=== PATIENT | male | born 1970 | race Caucasian/White ===

== ENCOUNTER 2017-02-01 21:15 | Emergency (ER) | payer BC ==
[~2017-02-01] VITALS: Ht 165.1 cm; Wt 60.7 kg
[~2017-02-01 21:15] MED LIST: OMEP40CA PO
[2017-02-01 21:26] VITALS: TEMP 36.7; Ht 165.1 cm; Wt 60.7 kg
[2017-02-01] MEDS ORDERED: OMEP20CA9 PO (21:51)
[2017-02-01] MEDS ORDERED: ONDANSETRON 8 MG/54 ML D5W IV STA (21:53)
[2017-02-01] MEDS ORDERED: SODIUM CHLORIDE 0.9% 1000ML 1,000 ML IV STA (21:53)
[2017-02-01 21:59] LABS: BASO % 0.5 %; BASO ABS # 0.05 K/uL (0-0.2); COMPLETE YES; EOS % 2.1 %; HEMATOCRIT 45.4 % (42-52); IG% 0.1 %; LYMPH % 28.1 %; LYMPH ABS # 2.63 K/uL (1.2-3.4); MEAN CELL VOLUME 92.3 fL (80-100); MEAN CORPUSCULAR HEMOGLOBIN 33.9 pg (25-34); MEAN CORPUSCULAR HGB CONC 36.8 g/dl (32-36); MEAN PLATELET VOLUME 8.9 fL (7.4-10.4); NEUT % 62.2 %; PLATELET COUNT 253 K/uL (130-400); RED BLOOD COUNT 4.92 M/uL (4.7-6.1); WHITE BLOOD COUNT 9.35 K/uL (4.8-10.8)
[2017-02-01] MEDS ORDERED: HYDROmorphone INJ 1 MG/ML SYR IV PRN (22:00)
[2017-02-01] MEDS ORDERED: OPTIRAY 320 IV PRN (22:00)
[2017-02-01 22:19] LABS: CALCIUM 9.4 mg/dl (8.5-10.1)
[2017-02-01 22:21] LABS: ALT/SGPT 30 U/L (12-78); BLOOD UREA NITROGEN 14 mg/dl (7-18); BUN/CREATININE RATIO 11.6 (10-20); CARBON DIOXIDE 24 mmol/L (21-32); CHLORIDE 105 mmol/L (98-107); GLUCOSE 94 mg/dl (70-99); POTASSIUM 3.9 mmol/L (3.5-5.1); SODIUM 140 mmol/L (136-145)
[2017-02-01 22:24] LABS: ALKALINE PHOSPHATASE 66 U/L (45-117); AST/SGOT 16 U/L (15-37)
[2017-02-02 00:43] LABS: URINE APPEARANCE CLEAR (CLEAR); URINE BILIRUBIN NEG (NEG); URINE COLOR YELLOW; URINE NITRITE NEG (NEG); UROBILINOGEN NEG (NEG); ZZUR CULT IF INDIC CLEAN CATCH NO
[2017-02-02 00:49] LABS: MANUAL MICROSCOPIC REQUIRED? NO; REVIEW REQ? NO
[2017-02-02] MEDS ORDERED: OXYCODONE IR HOME PACK PO ONE (01:30)
[2017-02-02 01:37] VITALS: BP 137/100; PULSE 69; O2SAT 97
--- NOTE | 2017-02-02 02:16 | EMERGENCY ROOM VISIT NOTE ---
History Report prepared by Remberto: Milton Parra Under the Supervision of: Dr. Danish Grullon M.D. First contact with patient: 21:39 Chief Complaint: ABDOMINAL PAIN Stated Complaint: PAIN LEFT LOWER STOMACH INTO BACK History of Present Illness The patient is a 46 year old male who presents to the Emergency Room with complaints of intermittent left sided abdominal pain beginning yesterday. His pain wraps around into his back. He states that he has been having similar abdominal pain for about four years. He states that his current pain feels the same as his previous abdominal pain. The patient states that he typically takes ibuprofen for his pain which resolves it, but nothing has improved his current pain. He states that his current abdominal pain is the first time in over two months that he has had his pain. He states that he has not been hospitalized for his abdominal pain in over a year. The patient is unsure as to whether is pain is from his gallbladder or pancreas. He rates his pain as a 10/10 in severity. His most recent colonoscopy was a few weeks ago. The patient has a history of GERD for which he takes Prilosec. He states that Prilosec typically brings on his abdominal pain. He states that he has been taking Prilosec for the past few weeks. The patient also complains of nausea, and lightheadedness. He denies any increased alcohol consumption. He states that he only drinks alcohol very occasionally. Pt denies LOC, headache, fevers, chills, diaphoresis , visual changes, neck pain, chest pain, breathing difficulties, vomiting, back pain, melena, hematochezia, urinary symptoms, numbness, weakness, lymphadenopathy, rash, or other complaints. He denies any recent trauma or testicular pain. Source of History: patient Onset: Yesterday Position: abdomen (left sided) Timing: intermittent Modifying Factors (Worsening): other (Prilosec) Modifying Factors (Relieving): other (none) Associated Symptoms: + nausea, No hematochezia, No melena, No vomiting Note: The patient complains of lightheadedness. Review of Systems See HPI for pertinent positives and negatives. A total of ten systems were reviewed and were otherwise negative. Past Medical & Surgical Medical Problems: (1) Hyperlipemia (2) Pancreatitis Family History FHx: gallbladder disease Hypertension Social History Smoking Status: Current Every Day Smoker Alcohol Use: occasionally Drug Use: none Marital Status: single Housing Status: lives with family Occupation Status: employed Current/Historical Medications Scheduled Omeprazole (Prilosec), 20 MG PO QAM Allergies Coded Allergies: No Known Allergies (Unverified , 10/18/15) Physical Exam Vital Signs Date Time Temp Pulse Resp B/P Pulse Ox O2 Delivery O2 Flow Rate FiO2 02/02/17 01:37 69 15 137/100 97 02/02/17 00:20 80 13 135/96 96 Room Air 02/01/17 23:20 61 17 131/77 96 Room Air 02/01/17 22:20 89 02/01/17 21:26 36.7 96 18 146/105 99 Room Air Physical Exam GENERAL: Awake, alert, well-appearing, in no distress HENT: Normocephalic, atraumatic. Oropharynx unremarkable. EYES: Normal conjunctiva. Sclera non-icteric. NECK: Supple. No nuchal rigidity. FROM. No JVD. RESPIRATORY: Clear to auscultation. CARDIAC: Regular rate, normal rhythm. Extremities warm and well perfused. Pulses equal. ABDOMEN: Soft, non-distended. Epigastric and LUQ tenderness to palpation. No rebound or guarding. No masses. RECTAL: Deferred. MUSCULOSKELETAL: Chest examination reveals no tenderness. The back is symmetrical on inspection without obvious abnormality. There is no CVA tenderness to palpation. No joint edema. LOWER EXTREMITIES: Calves are equal size bilaterally and non-tender. No edema. No discoloration. NEURO: Normal sensorium. No sensory or motor deficits noted. SKIN: No rash or jaundice noted. Medical Decision & Procedures ER Provider Diagnostic Interpretation: CT results per statrad and my review. CT ABDOMEN & PELVIS: No evidence of acute abnormality in the left lower quadrant to account for symptoms. No bowel obstruction, bowel wall thickening of free air. Question mild haziness surrounding the pancreatic head. Correlate with pancreatic enzyme levels to exclude mild acute pancreatitis. Remainder of pancreas appears unremarkable. No evidence of pseudocyst. Small hiatal hernia with contrast in the visualized distal esophagus, possibly related to stasis or gastroesophageal reflux. Correlate clinically. Stable small hepatic and right renal cysts. Laboratory Results 02/01/17 21:48 Red Blood Count 4.92, Mean Corpuscular Volume 92.3, Mean Corpuscular Hemoglobin 33.9, Mean Corpuscular Hemoglobin Concent 36.8, Mean Platelet Volume 8.9, Neutrophils (%) (Auto) 62.2, Lymphocytes (%) (Auto) 28.1, Monocytes (%) (Auto) 7.0, Eosinophils (%) (Auto) 2.1, Basophils (%) (Auto) 0.5, Neutrophils # (Auto) 5.81, Lymphocytes # (Auto) 2.63, Monocytes # (Auto) 0.65, Eosinophils # (Auto) 0.20, Basophils # (Auto) 0.05 02/01/17 21:48 Test 02/01/17 21:48 02/02/17 00:05 White Blood Count 9.35 K/uL (4.8-10.8) Red Blood Count 4.92 M/uL (4.7-6.1) Hemoglobin 16.7 g/dL (14.0-18.0) Hematocrit 45.4 % (42-52) Mean Corpuscular Volume 92.3 fL (80-100) Mean Corpuscular Hemoglobin 33.9 pg (25-34) Mean Corpuscular Hemoglobin Concent 36.8 g/dl (32-36) Platelet Count 253 K/uL (130-400) Mean Platelet Volume 8.9 fL (7.4-10.4) Neutrophils (%) (Auto) 62.2 % Lymphocytes (%) (Auto) 28.1 % Monocytes (%) (Auto) 7.0 % Eosinophils (%) (Auto) 2.1 % Basophils (%) (Auto) 0.5 % Neutrophils # (Auto) 5.81 K/uL (1.4-6.5) Lymphocytes # (Auto) 2.63 K/uL (1.2-3.4) Monocytes # (Auto) 0.65 K/uL (0.11-0.59) Eosinophils # (Auto) 0.20 K/uL (0-0.5) Basophils # (Auto) 0.05 K/uL (0-0.2) RDW Standard Deviation 44.0 fL (36.4-46.3) RDW Coefficient of Variation 13.0 % (11.5-14.5) Immature Granulocyte % (Auto) 0.1 % Immature Granulocyte # (Auto) 0.01 K/uL (0.00-0.02) Anion Gap 11.0 mmol/L (3-11) Est Creatinine Clear Calc Drug Dose 65.3 ml/min Estimated GFR () 83.0 Estimated GFR (Non- 71.6 BUN/Creatinine Ratio 11.6 (10-20) Calcium Level 9.4 mg/dl (8.5-10.1) Total Bilirubin 0.6 mg/dl (0.2-1) Direct Bilirubin < 0.1 mg/dl (0-0.2) Aspartate Amino Transf (AST/SGOT) 16 U/L (15-37) Alanine Aminotransferase (ALT/SGPT) 30 U/L (12-78) Alkaline Phosphatase 66 U/L (45-117) Total Protein 7.4 gm/dl (6.4-8.2) Albumin 4.4 gm/dl (3.4-5.0) Lipase 376 U/L (73-393) Urine Color YELLOW Urine Appearance CLEAR (CLEAR) Urine pH 6.0 (4.5-7.5) Urine Specific [place] 1.020 (1.000-1.030) Urine Protein NEG (NEG) Urine Glucose (UA) NEG (NEG) Urine Ketones TRACE (NEG) Urine Occult Blood NEG (NEG) Urine Nitrite NEG (NEG) Urine Bilirubin NEG (NEG) Urine Urobilinogen NEG (NEG) Urine Leukocyte Esterase NEG (NEG) Laboratory results reviewed by me Medications Administered Medications (Trade) Dose Ordered Sig/Anthony Route Start Time Stop Time Status Last Admin Dose Admin Sodium Chloride (Nss 1000ml) 1,000 ml @ 999 mls/hr Q1H1M STAT IV 02/01/17 21:53 02/01/17 22:53 DC 02/01/17 22:14 999 MLS/HR Ondansetron HCl (Zofran 8mg Iv) 8 mg NOW STAT IV 02/01/17 21:53 02/01/17 21:55 DC 02/01/17 22:14 8 MG Hydromorphone HCl (Dilaudid Inj) 1 mg Q15M PRN IV 02/01/17 22:00 02/02/17 01:57 DC 02/01/17 22:14 1 MG Oxycodone HCl (Roxicodone Immediate Rel 5MG Home Pack) 1 homepack UD ONCE PO 02/02/17 01:30 02/02/17 01:31 DC 02/02/17 01:34 1 HOMEPACK ED Course 2147: The patient was evaluated in room B4B. A complete history and physical exam was performed. 2152: Ordered Zofran 8 mg IV, Sodium Chloride 1000 ml @ 999 mls/hr IV. 2199: Ordered Dilaudid Inj 1 mg IV. 0032: I reassessed the patient. He is resting comfortably. 0130: I reevaluated the patient. Discussed results and discharge instructions: he verbalized understanding and agreement. The patient is ready for discharge. Medical Decision Triage Nursing notes reviewed. The patient's presentation and history were concerning for abdominal pain. Etiologies such as chronic pancreatitis, appendicitis, diverticulitis, obstruction, inflammatory bowel disease, renal colic, PUD, biliary pathology, acute pancreatitis, mesenteric ischemia, aortic pathology, infections, genitourinary, UTI, perforated viscus, as well as others were entertained. Pain was evaluated. He was uncomfortable. He was given IV normal saline, Zofran, and Dilaudid. Blood work was performed. CBC, chemistry panel, LFTs, and lipase were unremarkable. CT imaging was ordered due to his history of pancreatitis. The patient's CT scan was performed. There was questionable haziness around the head of the pancreas but otherwise it was unremarkable. The patient was reassessed and felt significantly better. His pain was markedly improved and nearly resolved. He states he feels basically back to normal. I discussed conservative management as she has been will findings on imaging and really left-sided abdominal pain by complaints. He felt very comfortable with conservative management. He'll have a clear liquid diet and then slowly advance. If he has any problems he will come back to the Emergency Room for reevaluation. I did discuss that there may be a possible flareup and he may need to come back.I gave my usual and customary discussion regarding this issue. He will need close outpatient follow-up. I did give him a home pack of oxycodone. By the evaluation outlined above other emergent etiologies such as those listed in the differential, as well as others, were deemed relatively unlikely. The patient and significant other were informed about the findings as listed above. All questions were answered and they were pleased with the treatment. Return instructions were outlined and the patient was discharged in stable condition. The patient was referred to his PCP for follow-up for a recheck of the current condition. The chart was completed utilizing Dragon Speech voice recognition software. Grammatical errors, random word insertions, pronoun errors, and incomplete sentences are an occasional consequence of this system due to software limitations, ambient noise, and hardware issues. Any formal questions or concerns about the content, text, or information contained within the body of this dictation should be directly addressed to the physician for clarification. Impression Primary Impression: Left sided abdominal pain Scribe Attestation The scribe's documentation has been prepared under my direction and personally reviewed by me in its entirety. I confirm that the note above accurately reflects all work, treatment, procedures, and medical decision making performed by me. Departure Information Dispostion Home / Self-Care Referrals Eren Herron M.D. (MEDICAL) (PCP) Patient Instructions My [facility] [address] Additional Instructions ABDOMINAL PAIN INSTRUCTIONS: DO NOT drive, drink alcohol, operate machinery, or perform dangerous activities today. You were given medications in the ER that can affect your ability to safely function or operate a vehicle. Oxycodone (OxyIR) 5mg: Take 1-2 pills every four hours for breakthrough pain. Avoid alcohol, operating machinery or dangerous equipment, working on ladders or roofs, DRIVING, or situations where being under the influence may be dangerous. It is recommended to use an [id number] stool softener such as Colace, 100mg twice daily while taking this medication to avoid constipation. Ibuprofen(Motrin, Advil) may be used for fever or pain. Use 600mg every six hours as needed. Take with food. Avoid using more than 2400mg in a 24 hour period. Do not use 2400mg per day for more than three consecutive days without physician direction. Prolonged inappropriate use can lead to stomach upset or ulcers. (AND/OR) Acetaminophen(Tylenol) may be used for fever or pain. Use 1000mg every six hours as needed. Avoid using more than 4000mg in a 24 hour period. Rest and drink plenty of fluids as tolerated. Slow sips of water or sports drinks are recommended instead of large amounts all at once. Continue current medications. Once your stomach is settled start with a clear liquid diet (jello, soup broth, etc.) and then advance as tolerated. You should avoid full, heavy meals for about 24 hrs from the time your symptoms resolved. Return to the ER immediately for worsening or persistent abdominal pain, vomiting, fevers, chest pains, difficulty breathing, black or bloody stools, worsening of your condition, or as needed. Follow up with your primary physician in one to 2 days for a recheck of your current condition.
--- NOTE | 2017-02-02 07:33 | DIAGNOSTIC IMAGING REPORT ---
ABDOMEN AND PELVIS CT WITH IV AND ORAL CONTRAST CT DOSE: 299.05 mGy.cm HISTORY: Left-sided abdominal pain. TECHNIQUE: Multiaxial CT images of the abdomen and pelvis were performed following the use of intravenous and oral contrast. COMPARISON STUDY: Abdomen and pelvis CT 09/09/2015. FINDINGS: Groundglass densities within the lower lobes posteriorly favor mild dependent change. Small hiatus hernia. Contrast in the distal stomach may represent esophageal dysmotility. Small diverticulum at the second portion of the duodenum. A few subcentimeter hypodense lesions within the liver and right kidney are too small to characterize but remain stable. Therefore, these favor cysts. The spleen, left kidney, and adrenal glands are unremarkable. The gallbladder remains mildly distended. Question of minimal fat stranding at the pancreatic head. No retroperitoneal lymphadenopathy. Bladder wall thickening which may be due to underdistention. Colonic diverticulosis. No bowel wall thickening or obstruction. Normal appendix. IMPRESSION: 1. Question of minimal fat stranding at the pancreatic head. Correlation with laboratory values to exclude a developing acute pancreatitis. 2. No bowel wall thickening or obstruction. 3. Colonic diverticulosis. 4. Small hiatus hernia. Electronically signed by: David Noel M.D. 02/02/2017 7:30 AM Dictated Date/Time: 02/02/2017 7:26 AM
== END 2017-02-02 01:43 | disposition home or self-care (01) ==
LOC: C.EDB 21:16
DX: R10.32 Left lower quadrant pain (principal); R11.0 Nausea; F17.210 Nicotine dependence, cigarettes, uncomplicated

== ENCOUNTER 2020-03-11 11:01 | Observation (INO) ==
[2020-03-11] MEDS ORDERED: ONDANSETRON INJ 2 MG/ML 2 ML VIAL IV STA (11:55)
[2020-03-11] MEDS ORDERED: KETOROLAC TROMETHAMINE 15 MG/ML VIAL IV ONE (11:55)
[2020-03-11] MEDS ORDERED: SODIUM CHLORIDE 0.9% 1000ML 2,000 ML IV ONE (11:55)
[2020-03-11 11:58] LABS: Basophils # (auto) 0.04 K/uL (0-0.2); Basophils % (auto) 0.5 %; Eosinophils # (auto) 0.07 K/uL (0-0.5); Eosinophils % (auto) 0.8 %; Hematocrit (blood only) 43.2 % (42-52); Hemoglobin 14.9 g/dL (14.0-18.0); Immature Granulocytes # (auto) 0.01 K/uL (0.00-0.02); Immature Granulocytes % (auto) 0.1 %; Lymphocytes # (auto) 1.84 K/uL (1.2-3.4); Lymphocytes % (auto) 22.3 %; Mean Corpuscular Hemoglobin 32.6 pg (25-34); Mean Corpuscular Hgb Conc 34.5 g/dL (32-36); Mean Corpuscular Volume 94.5 fL (80-100); Mean Platelet Volume 8.9 fL (7.4-10.4); Monocytes # (auto) 0.25 K/uL (0.11-0.59); Neutrophils # (auto) 6.03 K/uL (1.4-6.5); Neutrophils % (auto) 73.3 %; Platelet Count 304 K/uL (130-400); Red Blood Count 4.57 M/uL (4.7-6.1); White Blood Count 8.24 K/uL (4.8-10.8)
[2020-03-11 12:05] LABS: Albumin Level 3.9 gm/dl (3.4-5.0); Calcium 9.3 mg/dl (8.5-10.1); Creatinine Clr Calc Pharmacy 65.1 ml/min; Est GFR (African American) 82.9; Est GFR (Non-African American) 71.5; Potassium 3.9 mmol/L (3.5-5.1)
[2020-03-11 12:08] LABS: Bilirubin,Total 0.4 mg/dl (0.2-1); Total Protein 7.9 gm/dl (6.4-8.2)
--- NOTE | 2020-03-11 12:26 | Emergency Department Note ---
Impression & Plan Splenic infarct, Abdominal pain ED Provider Note NAME: SAMUEL RIDER AGE: 49 SEX: M : 1970 ARRIVES VIA: Walk-In INFORMANT: Patient ED PROVIDER(S): Florentino Smith DO CHIEF COMPLAINT: Abdominal pain HPI: Patient is a 49-year-old male who presents the ER for left lower quadrant abdominal pain. This pain is described as sharp and stabbing and 8 out of 10. Does radiate to the back. He notes some improvement with ice. He vomited twice. Last bowel movement was yesterday. No previous abdominal surgeries. No other exacerbating or remitting factors. He notes he has had this before in the past and they were unsure of exactly what caused it. He denies any dysuria urgency or frequency. No diarrhea. He notes no testicular pain or penile pain. ROS: See above HPI for pertinent positives & negatives. A total of 10 systems reviewed and were otherwise negative. PAST MEDICAL HISTORY:See Below PAST SURGICAL HISTORY:See Below FAMILY HISTORY:See Below SOCIAL HISTORY:See Below HOME MEDICATIONS:See Below ALLERGIES:See Below VITALS:See Below PHYSICAL EXAMINATION: GENERAL: Sitting up in bed, alert, well appearing, well nourished, no distress, non-toxic EYE EXAM: normal conjunctiva. OROPHARYNX: no exudate, no erythema, lips, buccal mucosa, and tongue normal and mucous membranes are moist NECK: supple, no nuchal rigidity, no adenopathy, non-tender LUNGS: Clear to auscultation. Normal chest wall mechanics HEART: no murmurs, S1 normal and S2 normal ABDOMEN: abdomen soft, tender palpation left lower quadrant, normo-active bowel sounds, no masses, no rebound or guarding. BACK: Back is symmetrical on inspection and there is no deformity, no midline tenderness, no CVA tenderness. SKIN: no rashes and no bruising UPPER EXTREMITIES: upper extremities are grossly normal. LOWER EXTREMITIES: No pitting edema. NEURO EXAM: Normal sensorium, cranial nerves II-XII grossly intact, normal speech, no gross weakness of arms, no gross weakness of legs. MEDICAL DECISION MAKING: Patient is a 49-year-old male that presents the ER for Abdominal pain. Patient notes that radiates through to his back. No other exacerbating or remitting factors. IV was established blood work was obtained shows no significant leukocytosis or anemia. BMP with LFTs bilirubin and lipase was unremarkable. UA was negative. IV was established blood work was obtained. CT of the abdomen pelvis shows left splenic infarct. Patient was given IV fluids. He was updated bedside. Discussed with the hospitalist patient was admitted as I do favor his symptoms are consistent with left splenic infarct and we have no clear reasoning for this at this time. Discussed with the hospitalist patient was agreeable to coming as well. Triage Nursing notes reviewed. Prior medical records reviewed Vital Signs: reviewed and remarkable for no significant abnormalities Differential diagnosis: Differential diagnoses includes but is not limited to gastritis, peptic ulcer disease, GERD, gallbladder disease, pancreatitis, small bowel obstruction, acute coronary syndrome, pericarditis, ischemic bowel, irritable bowel disease, irritable bowel syndrome, appendicitis, diverticulitis, malignancy, hernia, urinary tract infection, torsion, perforation, trauma, infectious. ER treatment provided: See below Diagnostics interpreted by me: ECG: none Cardiac Monitoring: An order was placed for continuous cardiac monitoring. The monitor shows a rate of 86 with sinus rhythm. Laboratory studies: As stated above and show below. Imaging studies: CT abdomen pelvis shows splenic infarct Consultation(s): Discussed with hospitalist for admission. ED COURSE: Procedures: none Critical Care: None Past Med/Surg History Medical History (Updated 03/11/20 @ 16:07 by León Crawford MD, FACS) CAD (coronary artery disease) Depression RADHA (generalized anxiety disorder) GERD (gastroesophageal reflux disease) (Acute) HLD (hyperlipidemia) Pancreatitis (Chronic) Surgical History History of heart artery stent Family History Other Diabetes Stroke Social History Preferred Language: Nepali Communication Ability: Effective Interactive Marketing Strategist Required: No Beliefs That Will Affect Care: None marital status: Single Current Living Situation: Alone current occupational status: employed Other Information That Helps Us Care for You: No Feels Safe at Home: Yes Safety Concerns: Feels Safe At This Time Smoking Status: Current every day smoker Tobacco Type: cigarettes ; Years Smoked: 31 ; Cigarettes Per Day: 20 ; Hx Alcohol Use: No Hx Substance Use: No Allergies Allergies Allergy/AdvReac Type Severity Reaction Status Date / Time No Known Allergies Allergy Verified 03/11/20 12:04 Home Meds Home Medications Medication Instructions Recorded Confirmed aspirin 81 mg PO QAM 10/06/18 03/11/20 atorvastatin [Lipitor] 80 mg PO QAM 10/06/18 03/11/20 omeprazole 20 mg PO QAM 10/06/18 03/11/20 sertraline [Zoloft] 50 mg PO QAM 10/06/18 03/11/20 nitroglycerin [Nitrostat] 0.4 mg SUBLINGUAL UD PRN 10/07/18 03/11/20 Results & Data (ED) Vital Signs Vital Signs - 24 hr 03/11/20 11:08 03/11/20 11:31 03/11/20 11:34 Temperature 36.6 C Temperature Source Oral Pulse Rate 90 69 69 Pulse Rate [Left Finger] Pulse Rate from SpO2 Sensor 68 69 Respiratory Rate 16 25 H 23 Respiratory Effort / Characteristics Non-Labored Spontaneous Respiratory Depth Normal Respiratory Pattern Regular Blood Pressure 127/86 127/73 Blood Pressure [Left Arm] Blood Pressure Mean 99 86 Blood Pressure Mean [Left Arm] Blood Pressure Position Sitting Pulse Oximetry 97 96 96 Oxygen Delivery Method Room Air Sepsis Recent Fever Within 48 Hours No Sepsis New/Unexplained Change in Mental Status No Sepsis Action Taken by Nursing No Action Required 03/11/20 12:00 03/11/20 12:30 03/11/20 12:51 Temperature Temperature Source Pulse Rate 65 60 Pulse Rate [Left Finger] 79 Pulse Rate from SpO2 Sensor 64 58 L Respiratory Rate 23 20 20 Respiratory Effort / Characteristics Respiratory Depth Respiratory Pattern Blood Pressure 108/75 112/70 Blood Pressure [Left Arm] 112/70 Blood Pressure Mean 88 80 Blood Pressure Mean [Left Arm] 84 Blood Pressure Position Pulse Oximetry 96 97 97 Oxygen Delivery Method Room Air Sepsis Recent Fever Within 48 Hours Sepsis New/Unexplained Change in Mental Status Sepsis Action Taken by Nursing 03/11/20 13:29 03/11/20 13:30 03/11/20 13:31 Temperature Temperature Source Pulse Rate 73 74 74 Pulse Rate [Left Finger] Pulse Rate from SpO2 Sensor 73 74 74 Respiratory Rate 24 22 21 Respiratory Effort / Characteristics Respiratory Depth Respiratory Pattern Blood Pressure 114/69 Blood Pressure [Left Arm] Blood Pressure Mean 83 Blood Pressure Mean [Left Arm] Blood Pressure Position Pulse Oximetry 96 97 96 Oxygen Delivery Method Sepsis Recent Fever Within 48 Hours Sepsis New/Unexplained Change in Mental Status Sepsis Action Taken by Nursing 03/11/20 14:13 03/11/20 14:15 03/11/20 14:30 Temperature Temperature Source Pulse Rate 72 65 74 Pulse Rate [Left Finger] Pulse Rate from SpO2 Sensor 71 66 75 Respiratory Rate 21 19 22 Respiratory Effort / Characteristics Respiratory Depth Respiratory Pattern Blood Pressure 112/71 120/70 Blood Pressure [Left Arm] Blood Pressure Mean 82 81 Blood Pressure Mean [Left Arm] Blood Pressure Position Pulse Oximetry 97 97 97 Oxygen Delivery Method Sepsis Recent Fever Within 48 Hours Sepsis New/Unexplained Change in Mental Status Sepsis Action Taken by Nursing 03/11/20 14:49 03/11/20 15:01 03/11/20 15:03 Temperature Temperature Source Pulse Rate 82 86 Pulse Rate [Left Finger] 73 Pulse Rate from SpO2 Sensor 83 85 Respiratory Rate 22 21 24 Respiratory Effort / Characteristics Respiratory Depth Respiratory Pattern Blood Pressure 101/56 L Blood Pressure [Left Arm] 120/70 Blood Pressure Mean 72 Blood Pressure Mean [Left Arm] 86 Blood Pressure Position Pulse Oximetry 96 96 96 Oxygen Delivery Method Room Air Sepsis Recent Fever Within 48 Hours Sepsis New/Unexplained Change in Mental Status Sepsis Action Taken by Nursing Laboratory Data Result diagrams: 03/11/20 11:28 03/11/20 11:28 Lab Results 03/11/20 03/11/20 03/11/20 Range/Units 11:28 11:28 13:15 WBC 8.24 (4.8-10.8) K/uL RBC 4.57 L (4.7-6.1) M/uL Hgb 14.9 (14.0-18.0) g/dL Hct 43.2 (42-52) % MCV 94.5 (80-100) fL MCH 32.6 (25-34) pg MCHC 34.5 (32-36) g/dL RDW Std Deviation 45.0 (36.4-46.3) fL RDW Coeff of [place] 13.0 (11.5-14.5) % Plt Count 304 (130-400) K/uL MPV 8.9 (7.4-10.4) fL Immature Gran % (Auto) 0.1 % Neut % (Auto) 73.3 % Lymph % (Auto) 22.3 % [place] % (Auto) 3.0 % Eos % (Auto) 0.8 % Baso % (Auto) 0.5 % Immature Gran # (Auto) 0.01 (0.00-0.02) K/uL Neut # (Auto) 6.03 (1.4-6.5) K/uL Lymph # (Auto) 1.84 (1.2-3.4) K/uL [place] # (Auto) 0.25 (0.11-0.59) K/uL Eos # (Auto) 0.07 (0-0.5) K/uL Baso # (Auto) 0.04 (0-0.2) K/uL Sodium 135 L (136-145) mmol/L Potassium 3.9 (3.5-5.1) mmol/L Chloride 105 (98-107) mmol/L Carbon Dioxide 24 (21-32) mmol/L Anion Gap 6.0 (3-11) BUN 17 (7-18) mg/dl Creatinine 1.18 (0.6-1.4) mg/dl Est Cr Clr Drug Dosing 65.1 ml/min Est GFR ( Amer) 82.9 Est GFR (Non-Af Amer) 71.5 BUN/Creatinine Ratio 14.0 (10-20) Glucose 118 H (70-99) mg/dl Lactate (0.4-2.0) mmol/L Calcium 9.3 (8.5-10.1) mg/dl Total Bilirubin 0.4 (0.2-1) mg/dl AST 8 L (15-37) U/L ALT 18 (12-78) U/L Alkaline Phosphatase 77 (45-117) U/L Total Protein 7.9 (6.4-8.2) gm/dl Albumin 3.9 (3.4-5.0) gm/dl Globulin 4.0 (2.5-4.0) gm/dl Albumin/Globulin Ratio 1.0 (0.9-2) Lipase 115 (73-393) U/L Urine Color Yellow Urine Appearance Clear (Clear) Urine pH 5.5 (4.5-7.5) Ur Specific [place] 1.044 H (1.000-1.030) Urine Protein Negative (Negative) Urine Glucose (UA) Negative (Negative) Urine Ketones Negative (Negative) Urine Blood Negative (Negative) Urine Nitrite Negative (Negative) Urine Bilirubin Negative (Negative) Urine Urobilinogen Negative (Negative) Ur Leukocyte Esterase Negative (Negative) 03/11/20 Range/Units 14:19 WBC (4.8-10.8) K/uL RBC (4.7-6.1) M/uL Hgb (14.0-18.0) g/dL Hct (42-52) % MCV (80-100) fL MCH (25-34) pg MCHC (32-36) g/dL RDW Std Deviation (36.4-46.3) fL RDW Coeff of [place] (11.5-14.5) % Plt Count (130-400) K/uL MPV (7.4-10.4) fL Immature Gran % (Auto) % Neut % (Auto) % Lymph % (Auto) % [place] % (Auto) % Eos % (Auto) % Baso % (Auto) % Immature Gran # (Auto) (0.00-0.02) K/uL Neut # (Auto) (1.4-6.5) K/uL Lymph # (Auto) (1.2-3.4) K/uL [place] # (Auto) (0.11-0.59) K/uL Eos # (Auto) (0-0.5) K/uL Baso # (Auto) (0-0.2) K/uL Sodium (136-145) mmol/L Potassium (3.5-5.1) mmol/L Chloride (98-107) mmol/L Carbon Dioxide (21-32) mmol/L Anion Gap (3-11) BUN (7-18) mg/dl Creatinine (0.6-1.4) mg/dl Est Cr Clr Drug Dosing ml/min Est GFR ( Amer) Est GFR (Non-Af Amer) BUN/Creatinine Ratio (10-20) Glucose (70-99) mg/dl Lactate 0.5 (0.4-2.0) mmol/L Calcium (8.5-10.1) mg/dl Total Bilirubin (0.2-1) mg/dl AST (15-37) U/L ALT (12-78) U/L Alkaline Phosphatase (45-117) U/L Total Protein (6.4-8.2) gm/dl Albumin (3.4-5.0) gm/dl Globulin (2.5-4.0) gm/dl Albumin/Globulin Ratio (0.9-2) Lipase (73-393) U/L Urine Color Urine Appearance (Clear) Urine pH (4.5-7.5) Ur Specific [place] (1.000-1.030) Urine Protein (Negative) Urine Glucose (UA) (Negative) Urine Ketones (Negative) Urine Blood (Negative) Urine Nitrite (Negative) Urine Bilirubin (Negative) Urine Urobilinogen (Negative) Ur Leukocyte Esterase (Negative) Administered Medications Ioversol (Optiray 320 100ml) 94 ml IV ONCE PRN PRN Reason: Interaction Checking Stop: 03/15/20 13:03 Last Admin: 03/11/20 13:04 Dose: 94 ml Documented by: [id number] Discontinued Medications Sodium Chloride (Nss 1000ml) 2,000 mls @ 999 mls/hr IV .Q2H1M ONE Stop: 03/11/20 13:55 Last Infusion: 03/11/20 13:48 Dose: 0 mls/hr Documented by: [id number] Admin: 03/11/20 12:13 Dose: 999 mls/hr Documented by: [id number] Ketorolac Tromethamine (Toradol) 15 mg IV NOW ONE Stop: 03/11/20 11:56 Last Admin: 03/11/20 12:13 Dose: 15 mg Documented by: [id number] Ondansetron HCl (Zofran) 4 mg IV NOW STA Stop: 03/11/20 11:56 Last Admin: 03/11/20 12:13 Dose: 4 mg Documented by: [id number] Discharge Plan Visit Data Chief Complaint: Abdominal Pain Stated Complaint: ABDOMINAL PAIN,VOMITING,DIZZINESS ED Provider: Florentino Smith Discharge Problem: Splenic infarct, Abdominal pain Discharge Instructions Interventions: ED Discharge Assessment Last Done: 03/11/20 15:40
[2020-03-11] MEDS ORDERED: IOVERSOL 100ml IV PRN (13:04)
--- NOTE | 2020-03-11 13:19 | CT Scan Report ---
CT abd pelvis IV con only CLINICAL HISTORY: Left sided abdominal pain COMPARISON STUDY: 10/06/2018 TECHNIQUE: The patient was scanned in a dynamic helical fashion during intravenous administration of 94 cc of Optiray 320. A dose lowering technique was utilized adhering to the principles of ALARA. CT DOSE: 480.31 mGycm FINDINGS: Lower chest: There are bibasilar atelectatic changes. There is a small hiatal hernia Liver: The contrast-enhanced liver is normal in size, contour, and attenuation. There is no intrahepa tic biliary ductal dilatation. The hepatic veins and portal veins are patent. There is a 4 mm left lo be hepatic hypodensity, likely representing a cyst. There is no ductal dilatation. The hepatic and po rtal veins appear patent. Gallbladder: Mildly distended. No calculi identified. No common bile duct dilatation. Spleen: There is a linear/triangular defect within the superior aspect of the spleen. There is no tejal rounding perisplenic fluid or fatty infiltration. This may represent the sequela of an old splenic in farct. Pancreas: Unremarkable. Adrenal glands: Unremarkable. Kidneys: There is a 12 mm right renal cyst. No solid renal masses are visualized. There is no hydrone phrosis. Bowel: There are no transition zones indicate bowel obstruction. There is no evidence of acute divert iculitis. The appendix appears normal. Peritoneum: There is no intraperitoneal free air or abdominal ascites. There is a tiny fat-containing umbilical hernia Vasculature: The abdominal aorta is normal in course and caliber. Adenopathy: None. Pelvic viscera: The bladder, and pelvic viscera are unremarkable. Skeletal structures: No destructive osseous lesions are seen. IMPRESSION: 1. No evidence of bowel obstruction. No evidence of free air 2. Normal appendix. No evidence of acute diverticulitis 3. Linear/triangular hypodense defect within the spleen. This was not visualized the prior study. The re is no perisplenic fluid, and no perisplenic fat infiltration. The findings are suggestive of the s equela of a prior splenic infarct ACT 112: Negative or not required by law. Electronically signed by: Issa Laureano M.D. 03/11/2020 1:17 PM
[2020-03-11 13:39] LABS: Appearance Urine Clear (Clear); Bilirubin Urine Negative (Negative); Blood Urine Negative (Negative); Color Urine Yellow; Glucose Urine UA Negative (Negative); Ketones Urine Negative (Negative); Leukocyte Esterase Urine Negative (Negative); Nitrite Urine Negative (Negative); Protein Urine Negative (Negative); Specific Gravity Urine 1.044 (1.000-1.030); Urobilinogen Urine Negative (Negative); pH Urine 5.5 (4.5-7.5)
--- NOTE | 2020-03-11 15:20 | History & Physical Report ---
Date of Service March 11, 2020 Assessment & Plan (1) Left lower quadrant abdominal pain: (2) Splenic infarct: This is a 49-year-old male with a PMH of CAD (s/p stent x 2 to RCA in 2018), tobacco use disorder, GERD, Casanova's esophagus, RADHA and other medical problems listed below who presents with left lower quadrant abdominal pain starting yesterday and was found to have possible splenic infarct on CT abd/pelvis. -Describes pain as constant and sharp with radiation to back. Has had a similar pain intermittently in past with unclear etiology -Currently afebrile, hemodynamically stable. No leukocytosis, hgb is stable, lactic acid and lipase within normal limits -CT abd/pelvis with IV contrast shows linear/triangular hypodense defect within the spleen..The findings are suggestive of the sequela of a prior splenic infarct" -Evaluated by general surgery who feel splenic infarct is small and unlikely to need surgical intervention. Recommended considering anticoagulation. Will follow along -Full liquid diet and advance to regular as tolerated. Pain control (3) CAD (coronary artery disease): History of 2 stents to RCA in 2018 for an NSTEMI -No chest pain. Admission EKG pending -Recently discontinued Imdur and Brilinta. Had discussed this possibility with Dr. Figueroa at previous appointment but then follow up was cancelled, so patient discontinued on his own -Continue aspirin, statin (4) [facility]es[facility] with [facility] of Casanova's esophagus with most recent EGD in 2017 -Continue Prilosec in a.m., Pepcid recently ordered to take in the evening (5) RADHA (generalized anxiety disorder): Continue SSRI DVT Ppx: SCDs Code status: FULL PCP: Yemi Dispo: Admitted to med/surg. Plan to return home once medically stable. Patient seen in collaboration with Dr. Thayer. Please see addendum. History of Present Illness Chief Complaint: Left lower quadrant pain Primary Care Provider: Wade Bragg MD This is a 49-year-old male with a PMH of CAD (s/p stent x 2 to RCA in 2018), tobacco use disorder, GERD, Casanova's esophagus, RADHA and other medical problems listed below who presents with left lower quadrant abdominal pain starting yesterday. Describes pain as constant and sharp with radiation to back. Pain is not made worse with exercise or movement. Associated symptoms include lightheadedness, nausea and 2 episodes of bilious vomiting. Denies any fever or chills. No chest pain, shortness of breath, dysuria, diarrhea, constipation, melena or hematochezia. States he has had a similar pain like this on and off for the past 5 but cause for pain has remained unclear. Denies any history of abdominal surgery. No recent trauma. History of pancreatitis in the past but states that pain feels different. Allergies Allergy/AdvReac Type Severity Reaction Status Date / Time No Known Allergies Allergy Verified 03/11/20 12:04 Home Medications Home Medications Medication Instructions Recorded Confirmed Type aspirin 81 mg PO QAM 10/06/18 03/11/20 History atorvastatin [Lipitor] 80 mg PO QAM 10/06/18 03/11/20 History omeprazole 20 mg PO QAM 10/06/18 03/11/20 History sertraline [Zoloft] 50 mg PO QAM 10/06/18 03/11/20 History nitroglycerin [Nitrostat] 0.4 mg SUBLINGUAL UD PRN 10/07/18 03/11/20 History Past Med/Surg History Medical History (Updated 03/11/20 @ 16:07 by León Crawford MD, FACS) CAD (coronary artery disease) Depression RADHA (generalized anxiety disorder) GERD (gastroesophageal reflux disease) (Acute) HLD (hyperlipidemia) Pancreatitis (Chronic) Surgical History History of heart artery stent Family History Other Diabetes Stroke Social History Preferred Language: French Communication Ability: Effective Stoneworking Sander Required: No Beliefs That Will Affect Care: None marital status: Single Current Living Situation: Alone current occupational status: employed Feels Safe at Home: Yes Smoking Status: Current every day smoker Tobacco Type: cigarettes ; Cigarettes Per Day: 20 ; Hx Alcohol Use: No Hx Substance Use: No Review of Systems Review of Systems: At least ten systems reviewed and negative except as noted in the HPI. Physical Exam Physical Exam: General Appearance: WD/WN, vitals as above, NAD, sitting up in bed, pleasant, conversing easily Head: normocephalic, atraumatic Eyes: normal inspection, PERRL, conjunctivae normal, anicteric sclerae ENT: external ear and nose normal, oropharynx normal Neck: trachea midline, no thyromegaly normal visual inspection Respiratory: normal respiratory effort, lungs clear to auscultation, no wheeze, rales, rhonchi. Normal insp/exp effort, no accessory muscle use Cardiovascular: regular rate, rhythm, no murmur, normal peripheral pulses. Vessels: no JVD or carotid bruit Chest: normal inspection of chest Abdomen/GI: normal bowel sounds, soft, TTP left lower quadrant and flank with extension to midback, no guarding, no hepatosplenomegaly Extremities/Musculoskeletal: no cyanosis or clubbing, extremities motor strength 5/5 Neurologic: PERRL, EOMI, no dysarthria, CN's II-XI intact bilaterally and moves all extremities Psychiatric: A+Ox3, euthymic affect Skin: no rashes, normal color, warm/dry Results & Data Results & Data ([place]) Vital Signs (Past 12 Hours) Vital Signs Temp Pulse Pulse Resp BP BP Pulse Ox 03/11/20 15:01 82 21 101/56 L 96 03/11/20 14:49 73 22 120/70 96 03/11/20 14:30 74 22 120/70 97 03/11/20 14:15 65 19 97 03/11/20 14:13 72 21 112/71 97 03/11/20 13:31 74 21 96 03/11/20 13:30 74 22 114/69 97 03/11/20 13:29 73 24 96 03/11/20 12:51 79 20 112/70 97 03/11/20 12:30 60 20 112/70 97 03/11/20 12:00 65 23 108/75 96 03/11/20 11:34 69 23 96 03/11/20 11:31 69 25 H 127/73 96 03/11/20 11:08 36.6 C 90 16 127/86 97 Laboratory Results Short CBC 03/11/20 Range/Units 11:28 WBC 8.24 (4.8-10.8) K/uL Hgb 14.9 (14.0-18.0) g/dL Hct 43.2 (42-52) % Plt Count 304 (130-400) K/uL BMP 03/11/20 11:28 Sodium 135 L Potassium 3.9 Chloride 105 Carbon Dioxide 24 BUN 17 Creatinine 1.18 Glucose 118 H Calcium 9.3 Liver Function 03/11/20 Range/Units 11:28 Total Bilirubin 0.4 (0.2-1) mg/dl AST 8 L (15-37) U/L ALT 18 (12-78) U/L Alkaline Phosphatase 77 (45-117) U/L Albumin 3.9 (3.4-5.0) gm/dl Urine 03/11/20 Range/Units 13:15 Urine Color Yellow Urine Appearance Clear (Clear) Urine pH 5.5 (4.5-7.5) Ur Specific [place] 1.044 H (1.000-1.030) Urine Protein Negative (Negative) Urine Glucose (UA) Negative (Negative) Diagnostic Findings CT abd/pelvis: IMPRESSION: 1. No evidence of bowel obstruction. No evidence of free air 2. Normal appendix. No evidence of acute diverticulitis 3. Linear/triangular hypodense defect within the spleen. This was not visualized the prior study. There is no perisplenic fluid, and no perisplenic fat infiltration. The findings are suggestive of the sequela of a prior splenic infarct Code Status & VTE Plan VTE Prophylaxis Plan VTE Prophylaxis will be ordered: Yes Supervising Physician Co-Signing Physician Notes Attending addendum The patient was seen and examined in the medical floor He has been complaining of left-sided back flank and anterior abdominal pain around T11 distribution for many years He has had episodes of pain involving these areas and sometimes pain can last for 5 to 7 days Only symptoms as residual pain are nausea, sometimes vomiting and dizziness. Denies any problem with bowel habit or urine. Denies any numbness and tingling involving that area and any rash in that area too And never has had any colonoscopy but had quite a few EGD due to Casanova's esophagus History of chickenpox as a child and Lyme disease in 2018 On examination Not in any distress Hemodynamically stable Examination of the abdomen-normal, no distention, minimally tender left lower quadrant without guarding and no rigidity, no mass palpable and bowel sounds present No visible umbilical hernia or inguinal hernia Admission labs and imaging studies reviewed Incidental finding of old splenic infarct with unremarkable lab Surgery consulted for ischemic infarct-continue with conservative management Will need to have colonoscopy as an outpatient Not sure if umbilical hernia want any abdominal wall hernias causing him the symptoms Agree with assessment plan as outlined above by [email or web address] Thorne Dr
--- NOTE | 2020-03-11 16:10 | Surgery Consultation ---
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 Patient does not seem to have There is some consideration for anticoagulation We will follow with you History of Present Illness Attending Physician: Fay Thayer MD History of Present Illness 49-year-old male presenting the emergency room with left left-sided abdominal pain currently had some nausea and vomiting Found on his CAT scan with a small splenic infarct which appears to have happened prior to an acute event Patient does have a history of myocardial infarction with stent placement-he currently takes aspirin but no other anticoagulants Allergies Allergy/AdvReac Type Severity Reaction Status Date / Time No Known Allergies Allergy Verified 03/11/20 12:04 Home Medications Home Medications Medication Instructions Recorded Confirmed Type aspirin 81 mg PO QAM 10/06/18 03/11/20 History atorvastatin [Lipitor] 80 mg PO QAM 10/06/18 03/11/20 History omeprazole 20 mg PO QAM 10/06/18 03/11/20 History sertraline [Zoloft] 50 mg PO QAM 10/06/18 03/11/20 History nitroglycerin [Nitrostat] 0.4 mg SUBLINGUAL UD PRN 10/07/18 03/11/20 History Patient History Medical History (Updated 03/11/20 @ 16:07 by León Crawford MD, FACS) CAD (coronary artery disease) Depression RADHA (generalized anxiety disorder) GERD (gastroesophageal reflux disease) (Acute) HLD (hyperlipidemia) Pancreatitis (Chronic) Surgical History History of heart artery stent Family History Other Diabetes Stroke Social History (Updated 03/11/20 @ 15:24 by Grecia Steve PA-C) Preferred Language: Ukrainian Communication Ability: Effective Can Pusher Required: No Beliefs That Will Affect Care: None marital status: Single Current Living Situation: Alone current occupational status: employed Other Information That Helps Us Care for You: No Feels Safe at Home: Yes Safety Concerns: Feels Safe At This Time Smoking Status: Current every day smoker Tobacco Type: cigarettes ; Years Smoked: 31 ; Cigarettes Per Day: 20 ; Hx Alcohol Use: No Hx Substance Use: No Review of Systems Review of Systems: All systems reviewed & are unremarkable except as noted in HPI & below Physical Exam Constitutional: well developed and well nourished; no acute distress Eyes: + anicteric sclerae Respiratory: normal respiratory effort; no respiratory distress Cardiovascular: Rate/Rhythm: not tachycardic Gastrointestinal (Abdomen): His abdomen is mildly distended but he does not seem to have significant tenderness Skin: no rashes, warm and dry Neurologic: awake Psychiatric: Orientation: alert Results & Data Vital Signs (Past 12 Hours) Vital Signs Temp Pulse Pulse Resp BP BP Pulse Ox 03/11/20 15:30 94 H 22 137/87 90 03/11/20 15:03 86 24 96 03/11/20 15:01 82 21 101/56 L 96 03/11/20 14:49 73 22 120/70 96 03/11/20 14:30 74 22 120/70 97 03/11/20 14:15 65 19 97 03/11/20 14:13 72 21 112/71 97 03/11/20 13:31 74 21 96 03/11/20 13:30 74 22 114/69 97 03/11/20 13:29 73 24 96 03/11/20 12:51 79 20 112/70 97 03/11/20 12:30 60 20 112/70 97 03/11/20 12:00 65 23 108/75 96 03/11/20 11:34 69 23 96 03/11/20 11:31 69 25 H 127/73 96 03/11/20 11:08 36.6 C 90 16 127/86 97 I did review his CAT scan PG Care Time/CCT Total # of Minutes Spent Total Time Spent with Patient: Total time spent is greater than 50% in coor dination of care (as documented) at patient's floor/unit and/or counseling patient: Coding Level of Care Code 65362 Inpt Consult Level 4 Diagnoses Splenic infarct D73.5
[2020-03-11] MEDS ORDERED: ONDANSETRON INJ 2 MG/ML 2 ML VIAL IV PRN (16:15)
[2020-03-11] MEDS: ACETAMINOPHEN 325 MG TAB PO PRN (18:22)
[2020-03-11] MEDS: KETOROLAC TROMETHAMINE 15 MG/ML VIAL IV PRN (19:12)
[2020-03-12] MEDS: KETOROLAC TROMETHAMINE 15 MG/ML VIAL IV PRN (00:48)
[2020-03-12] MEDS: ACETAMINOPHEN 325 MG TAB PO PRN (04:35)
[2020-03-12 05:05] LABS: Hematocrit (blood only) 39.9 % (42-52); Hemoglobin 13.8 g/dL (14.0-18.0); Mean Corpuscular Hemoglobin 32.8 pg (25-34); Mean Corpuscular Hgb Conc 34.6 g/dL (32-36); Mean Corpuscular Volume 94.8 fL (80-100); Platelet Count 247 K/uL (130-400); RDW Coefficient of Variation 13.3 % (11.5-14.5); RDW Standard Deviation 46.3 fL (36.4-46.3); Red Blood Count 4.21 M/uL (4.7-6.1); White Blood Count 7.52 K/uL (4.8-10.8)
[2020-03-12 05:32] LABS: BUN Creatinine Ratio 14.4 (10-20); Calcium 8.4 mg/dl (8.5-10.1); Creatinine Clr Calc Pharmacy 76.1 ml/min; Est GFR (African American) 100.1; Est GFR (Non-African American) 86.3; Potassium 3.9 mmol/L (3.5-5.1)
[2020-03-12] MEDS ORDERED: SERTRALINE HCL 50 MG TABLET PO SCH (09:00)
[2020-03-12] MEDS ORDERED: PANTOprazole 40 MG TAB PO SCH (09:00)
[2020-03-12] MEDS ORDERED: ASPIRIN 81 MG ECTAB PO SCH (09:00)
[2020-03-12] MEDS ORDERED: ATORVASTATIN 40 MG TAB PO SCH (09:00)
[2020-03-12] MEDS ORDERED: NICOTINE 14 MG/24 HR PATCH TD SCH (09:00)
--- NOTE | 2020-03-12 12:20 | Hospitalist Progress Note ---
Date of Service March 12, 2020 Assessment & Plan (1) Left lower quadrant abdominal pain: Pain involving left flank, adjoining area of the lower back and left lower quadrant which has been going on for many years Episodic involvement of pain and sometimes the pain will last for up to week Gets occasional dizzy with the pain and nauseous but no other significant symptoms No history of spinal tenderness, no rash and no numbness or paresthesia involving the involved area of pain No evidence of any fat or hernia in that area Advised to have outpatient colonoscopy may be sooner (2) Splenic infarct: This is a 49-year-old male with a PMH of CAD (s/p stent x 2 to RCA in 2018), tobacco use disorder, GERD, Casanova's esophagus, RADHA and other medical problems listed below who presents with left lower quadrant abdominal pain starting yesterday and was found a small possible splenic infarct on CT abd/pelvis. Incidental CT scan showed a small wound splenic infarct without any surrounding edema and/or infiltration Does not have any pain in that area Evaluated by surgery We will not give any anticoagulation for this condition (3) CAD (coronary artery disease): History of 2 stents to RCA in 2018 for an NSTEMI -No chest pain. Admission EKG pending -Recently discontinued Imdur and Brilinta. Had discussed this possibility with Dr. Figueroa at previous appointment but then follow up was cancelled, so patient discontinued on his own -Continue aspirin, statin (4) [facility]ERD (gastroesophageal reflux disease): [facility] also with history of Casanova's esophagus with most recent EGD in 2017 -Continue Prilosec in a.m., Pepcid recently ordered to take in the evening (5) RADHA (generalized anxiety disorder): Continue SSRI DVT Ppx: SCDs Code status: FULL PCP: Yemi Dispo: Admitted to med/surg. Plan to return home once medically stable. We will discharge him this afternoon with a follow-up GI appointment. Admission and Anticipated Discharge Date Admission Date: March 11, 2020 Subjective The patient was seen and examined in medical floor He does not have any more pain in the abdomen Denies any other symptoms associated or related to left lower abdominal pain Review of Systems Review of Systems: All systems reviewed and are unremarkable except as noted below Gastrointestinal: no abdominal pain Physical Exam Physical Exam: Lying in bed without any symptoms Constitutional: well developed and well nourished; no acute distress and not ill appearing Eyes: PERRL, conjunctivae normal, anicteric sclerae ENMT: external ear and nose normal, oropharynx normal Neck: trachea midline, no thyromegaly Respiratory: normal respiratory effort; no respiratory distress Auscultation: lungs clear to auscultation bilaterally Cardiovascular: Rate/Rhythm: regular rate and regular rhythm Heart Sounds: no murmur Gastrointestinal (Abdomen): Inspection/Auscultation: abdomen normal to inspection and normal bowel sounds; abdomen not distended Percussion/Palpation: abdomen soft; abdomen nontender Musculoskeletal: No acute arthritis involving any joints Neurologic: moves all extremities; no focal motor deficits Results & Data Results & Data ([facility] Vital Signs (Past 12 Hours) Vital Signs Temp Pulse Resp BP Pulse Ox 03/12/20 07:20 36.8 C 60 20 135/83 97 Laboratory Results Short CBC 03/12/20 Range/Units 04:35 WBC 7.52 (4.8-10.8) K/uL Hgb 13.8 L (14.0-18.0) g/dL Hct 39.9 L (42-52) % Plt Count 247 (130-400) K/uL BMP 03/12/20 04:35 Sodium 140 Potassium 3.9 Chloride 111 H Carbon Dioxide 23 BUN 15 Creatinine 1.01 Glucose 82 Calcium 8.4 L Urine 03/11/20 Range/Units 13:15 Urine Color Yellow Urine Appearance Clear (Clear) Urine pH 5.5 (4.5-7.5) Ur Specific [place] 1.044 H (1.000-1.030) Urine Protein Negative (Negative) Urine Glucose (UA) Negative (Negative) Medications Administered Current Inpatient Medications Acetaminophen (Tylenol) 650 mg PO Q4H PRN PRN Reason: pain/fever Stop: 04/10/20 16:14 Last Admin: 03/12/20 04:35 Dose: 650 mg Documented by: Aspirin (Ecotrin Ectab) 81 mg PO [facility] Stop: 04/11/20 08:59 Last Admin: 03/12/20 08:37 Dose: 81 mg Documented by: Atorvastatin Calcium (Lipitor) 80 mg PO [facility] Stop: 04/11/20 08:59 Last Admin: 03/12/20 08:38 Dose: 80 mg Documented by: Ketorolac Tromethamine (Toradol) 15 mg IV Q6H PRN PRN Reason: Pain Stop: 03/16/20 18:48 Last Admin: 03/12/20 00:48 Dose: 15 mg Documented by: Miscellaneous (Remove Nicoderm Patch) 1 ea N/A DAILY@0859 [facility] Stop: 04/11/20 08:58 Last Admin: 03/12/20 08:37 Dose: Not Given Documented by: Nicotine (Nicoderm Cq) 14 mg TD [facility] Stop: 04/11/20 08:59 Last Admin: 03/12/20 08:37 Dose: Not Given Documented by: Ondansetron HCl (Zofran) 4 mg IV Q6H PRN PRN Reason: Nausea Stop: 04/10/20 16:14 Pantoprazole Sodium (Protonix) 40 mg PO [facility] Stop: 04/11/20 08:59 Last Admin: 03/12/20 08:38 Dose: 40 mg Documented by: Sertraline HCl (Zoloft) 50 mg PO [facility] Stop: 04/11/20 08:59 Last Admin: 03/12/20 08:38 Dose: 50 mg Documented by:
--- NOTE | 2020-03-12 17:53 | Discharge Summary ---
Date of Service March 12, 2020 Admission HPI Per Admitting Provider This is a 49-year-old male with a PMH of CAD (s/p stent x 2 to RCA in 2018), tobacco use disorder, GERD, Casanova's esophagus, RADHA and other medical problems listed below who presents with left lower quadrant abdominal pain starting yesterday. Describes pain as constant and sharp with radiation to back. Pain is not made worse with exercise or movement. Associated symptoms include lightheadedness, nausea and 2 episodes of bilious vomiting. Denies any fever or chills. No chest pain, shortness of breath, dysuria, diarrhea, constipation, melena or hematochezia. States he has had a similar pain like this on and off for the past 5 but cause for pain has remained unclear. Denies any history of abdominal surgery. No recent trauma. History of pancreatitis in the past but states that pain feels different. Admission Exam Per Admitting Provider Physical Exam: General Appearance: WD/WN, vitals as above, NAD, sitting up in bed, pleasant, conversing easily Head: normocephalic, atraumatic Eyes: normal inspection, PERRL, conjunctivae normal, anicteric sclerae ENT: external ear and nose normal, oropharynx normal Neck: trachea midline, no thyromegaly normal visual inspection Respiratory: normal respiratory effort, lungs clear to auscultation, no wheeze, rales, rhonchi. Normal insp/exp effort, no accessory muscle use Cardiovascular: regular rate, rhythm, no murmur, normal peripheral pulses. Vessels: no JVD or carotid bruit Chest: normal inspection of chest Abdomen/GI: normal bowel sounds, soft, TTP left lower quadrant and flank with extension to midback, no guarding, no hepatosplenomegaly Extremities/Musculoskeletal: no cyanosis or clubbing, extremities motor strength 5/5 Neurologic: PERRL, EOMI, no dysarthria, CN's II-XI intact bilaterally and moves all extremities Psychiatric: A+Ox3, euthymic affect Skin: no rashes, normal color, warm/dry Principal Diagnosis Recurrent left lower quadrant pain, cold small splenic infarct, CAD Discharge Exam Constitutional well developed and well nourished; no acute distress and not ill appearing Eyes PERRL, conjunctivae normal, anicteric sclerae ENMT external ear and nose normal, oropharynx normal Neck trachea midline, no thyromegaly Respiratory normal respiratory effort; no respiratory distress Auscultation: lungs clear to auscultation bilaterally Cardiovascular Rate/Rhythm: regular rate and regular rhythm Heart Sounds: no murmur Gastrointestinal (Abdomen) Inspection/Auscultation: abdomen normal to inspection and normal bowel sounds; abdomen not distended Percussion/Palpation: abdomen soft; abdomen nontender Neurologic moves all extremities; no focal motor deficits Discharge Data Allergies Allergy/AdvReac Type Severity Reaction Status Date / Time No Known Allergies Allergy Verified 03/11/20 12:04 Consultations 03/11/20 13:38 ED Decision to Admit Stat 03/11/20 16:11 Consult General Surgery Routine Ordered Studies 03/11/20 11:55 CT abd pelvis IV con only Stat Hospital Course (1) Left lower quadrant abdominal pain: Pain involving left flank, adjoining area of the lower back and left lower quadrant which has been going on for many years Episodic involvement of pain and sometimes the pain will last for up to week Gets occasional dizzy with the pain and nauseous but no other significant symptoms No history of spinal tenderness, no rash and no numbness or paresthesia involving the involved area of pain No evidence of any fat or hernia in that area Advised to have outpatient colonoscopy may be sooner (2) Splenic infarct: This is a 49-year-old male with a PMH of CAD (s/p stent x 2 to RCA in 2 018), tobacco use disorder, GERD, Casanova's esophagus, RADHA and other medical problems listed below who presents with left lower quadrant abdominal pain starting yesterday and was found a small possible splenic infarct on CT abd/pelvis. Incidental CT scan showed a small wound splenic infarct without any surrounding edema and/or infiltration Does not have any pain in that area Evaluated by surgery We will not give any anticoagulation for this condition (3) CAD (coronary artery disease): History of 2 stents to RCA in 2018 for an NSTEMI -No chest pain. Admission EKG pending -Recently discontinued Imdur and Brilinta. Had discussed this possibility with Dr. Figueroa at previous appointment but then follow up was cancelled, so patient discontinued on his own -Continue aspirin, statin (4) [facility]ERD (gastroes[facility] reflux disease): [facility] with history of Casanova's esophagus with most recent EGD in 2017 -Continue Prilosec in a.m., Pepcid recently ordered to take in the evening (5) RADHA (generalized anxiety disorder): Continue SSRI DVT Ppx: SCDs Code status: FULL PCP: Yemi Dispo: Admitted to med/surg. Plan to return home once medically stable. We will discharge him this afternoon with a follow-up GI appointment. Total Time Total Time Spent Total Time Spent (In Minutes): 35 minutes Total Time Includes: Examination of the Patient, Discharge Planning, Medication Reconciliation and Communication With Other Providers Discharge Plan Discharge Items Patient Disposition: Home - Self-Care Reason For Visit: LLQ PAIN,SPLENIC INJURY Discharge Diagnosis: Recurrent left lower quadrant pain, cold small splenic infarct, CAD Condition on Discharge: Good Activity: Resume your previous activity Non-emergency contact: Primary Care Provider Call non-emergency contact if: you have any medication questions and your symptoms worsen Follow-up/Referrals: Wade Bragg MD [Primary Care Provider] - 03/19/20 11:00 am (03/19/2020 11:00 AM Provider Paul Bansal MD Department Family Practice [facility] gastroenterology service has been notified for possible colonoscopy ) Diet: Heart Healthy Addtl Attending Provider Instructions: Take pain medications with Tylenol and/or NSAID use as an outpatient The pain is severe and is associated with other symptoms please come back to emergency room Pending Studies at Discharge: No Stand-Alone Forms: My You[employer], Smoking Cessation Medications and DC Order Prescriptions: New nicotine 7 mg/24 hr Patch 24 Hour 14 mg transdermal QAM 30 Days Qty: 30 RF: 0 Continued atorvastatin [Lipitor] 80 mg tablet 80 mg PO QAM RF: 0 aspirin 81 mg tablet,delayed release (DR/EC) 81 mg PO QAM RF: 0 omeprazole 20 mg capsule,delayed release(DR/EC) 20 mg PO QAM RF: 0 sertraline [Zoloft] 50 mg tablet 50 mg PO QAM RF: 0 nitroglycerin [Nitrostat] 0.4 mg tablet, sublingual 0.4 mg Sublingual UD PRN (Reason: Chest Pain) RF: 0 Discharge Orders: Discharge Order (Routine); Ordered 03/12/20 Ordered By: Fay Vazquez/Other Patient Handouts: Abdominal Pain Admission Data Admit Date/Time: 03/11/20 15:14 Attending Provider: Fay Thayer Admit Provider: Fay Thayer Primary Care Provider: Wade Bragg Other Providers: Fay Thayer ; León Crawford Other Interventions: Discharge Summary Assessment (RN) Last Done: 03/12/20 14:23 DC Date/Time DO NOT enter until pt leaves facility: 03/12/20 15:01
== END 2020-03-12 15:01 | disposition home or self-care (01) | DRG 816 ==
LOC: ED 11:01 → 3E 15:14 → INTOOBSV 15:14 → 3E 15:40

== ENCOUNTER 2020-08-08 04:40 | Inpatient (IN) ==
[2020-08-08] MEDS ORDERED: ONDANSETRON INJ 2 MG/ML 2 ML VIAL ONE (04:43)
[2020-08-08] MEDS ORDERED: NITROGLYCERIN/D5W 100MCG/ML 20ML SYR ONE (04:55)
[2020-08-08] MEDS ORDERED: MIDAZOLAM HCL 1 MG/ML 2ML VIAL ONE ×3 (04:55→06:43)
[2020-08-08] MEDS ORDERED: fentaNYL citrate 100 MCG/2 ML VIAL ONE ×2 (04:55→06:42)
[2020-08-08] MEDS ORDERED: niCARdipine HCL INJ 2.5 MG/ML 10 ML AMP ONE (04:55)
[2020-08-08] MEDS ORDERED: HEPARIN (PORCINE) 1000 UNIT/ML 10 ML (CATH LAB USE ONLY) ONE ×2 (04:55→06:22)
[2020-08-08 05:05] LABS: Basophils # (auto) 0.06 K/uL (0-0.2); Basophils % (auto) 0.4 %; Eosinophils # (auto) 0.22 K/uL (0-0.5); Eosinophils % (auto) 1.5 %; Hematocrit (blood only) 45.6 % (42-52); Hemoglobin 16.3 g/dL (14.0-18.0); Immature Granulocytes # (auto) 0.04 K/uL (0.00-0.02); Immature Granulocytes % (auto) 0.3 %; Lymphocytes # (auto) 3.83 K/uL (1.2-3.4); Lymphocytes % (auto) 26.3 %; Mean Corpuscular Hemoglobin 33.1 pg (25-34); Mean Corpuscular Hgb Conc 35.7 g/dL (32-36); Mean Corpuscular Volume 92.7 fL (80-100); Mean Platelet Volume 8.9 fL (7.4-10.4); Monocytes # (auto) 0.61 K/uL (0.11-0.59); Monocytes % (auto) 4.2 %; Neutrophils # (auto) 9.83 K/uL (1.4-6.5); Neutrophils % (auto) 67.3 %; Platelet Count 335 K/uL (130-400); RDW Standard Deviation 47.5 fL (36.4-46.3); Red Blood Count 4.92 M/uL (4.7-6.1); White Blood Count 14.59 K/uL (4.8-10.8)
--- NOTE | 2020-08-08 05:06 | Emergency Department Note ---
Impression & Plan ST elevation (STEMI) myocardial infarction, Acute hypotension ED Provider Note NAME: SAMUEL RIDER AGE: 49 SEX: M ARRIVES VIA: Ambulance INFORMANT: Patient, EMS ED PROVIDER(S): Jessi Morales DO CHIEF COMPLAINT: Chest pain PLAN: Disposition: To the Sulfonation Equipment Operator with Dr. Bourne Condition: Critical MEDICAL DECISION MAKING: This is a 49-year-old male patient who presents to the emergency department from work having substernal chest discomfort. EKG showed evidence of a STEMI. The patient was suffering from hypotension and thought to be having an inferior/posterior ME. Patient was bolused with IV normal saline solution and went emergently to the cardiac Sulfonation Equipment Operator with Dr. Bourne. Triage Nursing notes reviewed and agree them. Additional history obtained from EMS Prior medical records reviewed prior to his arrival Vital Signs: reviewed and remarkable for hypertension Differential diagnosis: STEMI, NSTEMI, GERD, aortic dissection ER treatment provided: IV normal saline bolus, IV Zofran Diagnostics interpreted by me: ECG: Sinus bradycardia with significant ST segment elevation in the inferior leads with reciprocal changes concerning for STEMI Cardiac Monitoring: Normal sinus rhythm at [address] segment elevation Laboratory studies: See below Imaging studies: As per my interpretation Portable chest x-ray: Narrow mediastinum with no pulmonary pathology HPI: 49/M arrives for evaluation of substernal chest pain. 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 The patient slowly started to develop substernal chest discomfort. The patient then developed some nausea. EMS was called. During transport, the patient became hypotensive and became somewhat confused. ROS: See above HPI for pertinent positives & negatives. A total of 10 systems reviewed and were otherwise negative. PAST MEDICAL HISTORY:See Below PAST SURGICAL HISTORY:See Below FAMILY HISTORY:See Below SOCIAL HISTORY:See Below HOME MEDICATIONS:See list ALLERGIES:None VITALS:See Below PHYSICAL EXAMINATION: HEENT: Head - normocephalic and atraumatic Pupils are equal, round, and maynor ctive to light. Extraocular eye muscles are intact, and sclera are anicteric. Nose - moist nasal mucosa without discharge. Mouth - moist buccal mucosa. Oropharynx is nonerythematous and there is no tonsillar exudate or edema noted. Neck: Supple; no JVD or cervical lymphadenopathy Heart: Regular rate and rhythm. There is a normal S1 and S2 with no murmurs, clicks, or gallops appreciated. Lungs: Clear to auscultation bilaterally with no wheezes, rales, or rhonchi. Abdomen: Soft, completely nontender, nondistended, with good bowel sounds. There are no palpable pulsatile masses or hepatosplenomegaly. There is no guarding, rigidity, or rebound noted. Extremities: No evidence of cyanosis, clubbing, or edema. There are easily palpable peripheral pulses. Skin: Pale, warm and diaphoretic with good turgor and no rashes. ED COURSE: The patient was quickly examined in room B1. A heart alert was called prehospital based on the transmitted twelve-lead EKG. Upon his arrival here in the ER, the second IV lock was initiated and the patient was bolused with a second 500 cc bolus of saline. The patient had episodes of bradycardia. A portable chest x-ray was obtained. Labs were drawn as above. The patient was quite nauseated and was given 4 mg of IV Zofran. The Sulfonation Equipment Operator team assembled and Dr. Bourne will take him to the Sulfonation Equipment Operator. I have personally spent greater than 30 minutes of critical care time in the direct management of this patient. This includes bedside care, interpretation of diagnostic studies, and testing, discussion with consultants, patient, and family members, and other required patient management activities. This 30 minutes is in excess of all separately billable procedures. Jessi Morales DO Past Med/Surg History Medical History (Updated 08/08/20 @ 06:32 by Jessi Morales DO) CAD (coronary artery disease) Depression RADHA (generalized anxiety disorder) GERD (gastroesophageal reflux disease) HLD (hyperlipidemia) Pancreatitis Surgical History History of heart artery stent Family History Other Diabetes Stroke Social History Smoking Status: Current every day smoker Tobacco Type: Cigarettes Cigarettes Per Day: 20; Hx Alcohol Use: No Hx Substance Use: No Preferred Language: Monegasque Communication Ability: Effective Clinical Research Assistant Required: No Beliefs That Will Affect Care: None marital status: Single Current Living Situation: Alone current occupational status: employed Feels Safe at Home: Yes Assistive Devices: None Allergies Allergies Allergy/AdvReac Type Severity Reaction Status Date / Time No Known Allergies Allergy Verified 08/08/20 04:54 Home Meds Home Medications Medication Instructions Recorded Confirmed aspirin 81 mg PO QAM 10/06/18 08/08/20 atorvastatin [Lipitor] 80 mg PO QAM 10/06/18 08/08/20 omeprazole 20 mg PO QAM 10/06/18 08/08/20 sertraline [Zoloft] 50 mg PO QAM 10/06/18 08/08/20 nitroglycerin [Nitrostat] 0.4 mg SUBLINGUAL UD PRN 10/07/18 08/08/20 pantoprazole 40 mg PO DAILY 08/08/20 08/08/20 Results & Data (ED) Vital Signs Vital Signs - 24 hr 08/08/20 04:46 08/08/20 04:51 08/08/20 04:53 Temperature Source Oral Pulse Rate 71 85 Pulse Rate from SpO2 Sensor 71 Respiratory Rate 16 Respiratory Effort / Characteristics Non-Labored Spontaneous Respiratory Depth Normal Blood Pressure 104/69 95/70 L Blood Pressure Mean 75 78 Pulse Oximetry 98 96 Oxygen Delivery Method Nasal Cannula Room Air Oxygen Flow Rate Sepsis Recent Fever Within 48 Hours No Sepsis New/Unexplained Change in Mental Status No Sepsis Action Taken by Nursing No Action Required 08/08/20 05:00 08/08/20 05:01 08/08/20 05:02 Temperature Source Pulse Rate 70 61 Pulse Rate from SpO2 Sensor 71 57 L Respiratory Rate Respiratory Effort / Characteristics Respiratory Depth Blood Pressure 104/73 Blood Pressure Mean 76 Pulse Oximetry 98 100 Oxygen Delivery Method Nasal Cannula Room Air Oxygen Flow Rate 2 Sepsis Recent Fever Within 48 Hours Sepsis New/Unexplained Change in Mental Status Sepsis Action Taken by Nursing Laboratory Data Result diagrams: 08/08/20 04:17 08/08/20 04:17 Lab Results 08/08/20 08/08/20 08/08/20 Range/Units 04:17 04:17 04:17 WBC 14.59 H (4.8-10.8) K/uL RBC 4.92 (4.7-6.1) M/uL Hgb 16.3 (14.0-18.0) g/dL POC Hgb (14.0-18.0) g/dl Hct 45.6 (42-52) % POC Hct (42-52) % MCV 92.7 (80-100) fL MCH 33.1 (25-34) pg MCHC 35.7 (32-36) g/dL RDW Std Deviation 47.5 H (36.4-46.3) fL RDW Coeff of Mckinley 14.0 (11.5-14.5) % Plt Count 335 (130-400) K/uL MPV 8.9 (7.4-10.4) fL Immature Gran % (Auto) 0.3 % Neut % (Auto) 67.3 % Lymph % (Auto) 26.3 % Mccormick % (Auto) 4.2 % Eos % (Auto) 1.5 % Baso % (Auto) 0.4 % Neut # (Auto) 9.83 H (1.4-6.5) K/uL Lymph # (Auto) 3.83 H (1.2-3.4) K/uL Mccormick # (Auto) 0.61 H (0.11-0.59) K/uL Eos # (Auto) 0.22 (0-0.5) K/uL Baso # (Auto) 0.06 (0-0.2) K/uL Immature Gran # (Auto) 0.04 H (0.00-0.02) K/uL PT 9.8 (9.0-12.0) Seconds INR 0.9 (0.9-1.1) APTT 25.9 (21.0-31.0) Seconds PTT Ratio 0.9 POC Sodium (135-144) mmol/L Sodium 136 (136-145) mmol/L POC Potassium (3.3-5.0) mmol/L Potassium 3.6 (3.5-5.1) mmol/L POC Chloride (101-112) mmol/L Chloride 103 (98-107) mmol/L Carbon Dioxide 26 (21-32) mmol/L POC Total CO2 (24-31) mmol/L Anion Gap 7.0 (3-11) POC Anion Gap (16-25) mmol/L POC BUN (7-18) mg/dl BUN 16 (7-18) mg/dl Creatinine 1.33 (0.6-1.4) mg/dl POC Creatinine (0.6-1.3) mg/dl Est Cr Clr Drug Dosing 54.3 ml/min Est GFR ( Amer) 71.7 Est GFR (Non-Af Amer) 61.9 BUN/Creatinine Ratio 12.1 (10-20) Glucose 132 H (70-99) mg/dl POC Glucose (other) (70-99) mg/dl Calcium 9.5 (8.5-10.1) mg/dl POC Ioniz Calcium Jerson (1.12-1.32) mmol/l Total Bilirubin 0.3 (0.2-1) mg/dl AST 16 (15-37) U/L ALT 27 (12-78) U/L Alkaline Phosphatase 99 (45-117) U/L Troponin I < 0.015 (0-0.045) ng/ml Total Protein 8.2 (6.4-8.2) gm/dl Albumin 4.1 (3.4-5.0) gm/dl Globulin 4.1 H (2.5-4.0) gm/dl Albumin/Globulin Ratio 1.0 (0.9-2) Lipase 571 H (73-393) U/L COVID-19 Eval Order SARS-CoV-2, RNA, NAAT (NEGATIVE) 08/08/20 08/08/20 08/08/20 Range/Units 04:45 04:45 04:59 WBC (4.8-10.8) K/uL RBC (4.7-6.1) M/uL Hgb (14.0-18.0) g/dL POC Hgb 13.9 L (14.0-18.0) g/dl Hct (42-52) % POC Hct 41 L (42-52) % MCV (80-100) fL MCH (25-34) pg MCHC (32-36) g/dL RDW Std Deviation (36.4-46.3) fL RDW Coeff of Mckinley (11.5-14.5) % Plt Count (130-400) K/uL MPV (7.4-10.4) fL Immature Gran % (Auto) % Neut % (Auto) % Lymph % (Auto) % Mccormick % (Auto) % Eos % (Auto) % Baso % (Auto) % Neut # (Auto) (1.4-6.5) K/uL Lymph # (Auto) (1.2-3.4) K/uL Mccormick # (Auto) (0.11-0.59) K/uL Eos # (Auto) (0-0.5) K/uL Baso # (Auto) (0-0.2) K/uL Immature Gran # (Auto) (0.00-0.02) K/uL PT (9.0-12.0) Seconds INR (0.9-1.1) APTT (21.0-31.0) Seconds PTT Ratio POC Sodium 137 (135-144) mmol/L Sodium (136-145) mmol/L POC Potassium 3.6 (3.3-5.0) mmol/L Potassium (3.5-5.1) mmol/L POC Chloride 104 (101-112) mmol/L Chloride (98-107) mmol/L Carbon Dioxide (21-32) mmol/L POC Total CO2 19 L (24-31) mmol/L Anion Gap (3-11) POC Anion Gap 18.0 (16-25) mmol/L POC BUN 16 (7-18) mg/dl BUN (7-18) mg/dl Creatinine (0.6-1.4) mg/dl POC Creatinine 1.2 (0.6-1.3) mg/dl Est Cr Clr Drug Dosing ml/min Est GFR ( Amer) Est GFR (Non-Af Amer) BUN/Creatinine Ratio (10-20) Glucose (70-99) mg/dl POC Glucose (other) 114 H (70-99) mg/dl Calcium (8.5-10.1) mg/dl POC Ioniz Calcium Jerson 1.07 L (1.12-1.32) mmol/l Total Bilirubin (0.2-1) mg/dl AST (15-37) U/L ALT (12-78) U/L Alkaline Phosphatase (45-117) U/L Troponin I (0-0.045) ng/ml Total Protein (6.4-8.2) gm/dl Albumin (3.4-5.0) gm/dl Globulin (2.5-4.0) gm/dl Albumin/Globulin Ratio (0.9-2) Lipase (73-393) U/L COVID-19 Eval Order Covid19 IDNow atMAZC SARS-CoV-2, RNA, NAAT NEGATIVE (NEGATIVE) Administered Medications Discontinued Medications Ondansetron HCl (Ondansetron Inj 2 Mg/Ml 2 Ml Vial) Confirm Administered Dose 4 mg .ROUTE .STMixbook-MED ONE Stop: 08/08/20 04:44 Last Admin: 08/08/20 04:45 Dose: 4 mg Documented by: [id number] Discharge Plan Visit Data Chief Complaint: Heart Alert Stated Complaint: cardiac alert ED Provider: Jessi Morales Discharge Problem: ST elevation (STEMI) myocardial infarction, Acute hypotension Patient Disposition: Admitted As Inpatient Discharge Instructions Interventions: ED Discharge Assessment Last Done: 08/08/20 05:10 Discharge Problem: ST elevation (STEMI) myocardial infarction Qualifiers: Involved coronary artery: unspecified coronary artery Qualified Code(s): I21.3 - ST elevation (STEMI) myocardial infarction of unspecified site
[2020-08-08] MEDS ORDERED: TICAGRELOR 90 MG TAB PO ONE (05:08)
[2020-08-08 05:13] LABS: iSTAT Creatinine 1.2 mg/dl (0.6-1.3); iSTAT Hemoglobin 13.9 g/dl (14.0-18.0); iSTAT Ionized Calcium 1.07 mmol/l (1.12-1.32); iSTAT Potassium 3.6 mmol/L (3.3-5.0)
[2020-08-08 05:15] LABS: INR 0.9 (0.9-1.1); Partial Thromboplastin Ratio 0.9; Partial Thromboplastin Time 25.9 Seconds (21.0-31.0); Prothrombin Time 9.8 Seconds (9.0-12.0)
[2020-08-08 05:21] LABS: Alanine Aminotransferase 27 U/L (12-78); Albumin Level 4.1 gm/dl (3.4-5.0); Aspartate Aminotransferase 16 U/L (15-37); BUN Creatinine Ratio 12.1 (10-20); Blood Urea Nitrogen 16 mg/dl (7-18); Calcium 9.5 mg/dl (8.5-10.1); Carbon Dioxide 26 mmol/L (21-32); Chloride 103 mmol/L (98-107); Creatinine Clr Calc Pharmacy 54.3 ml/min; Est GFR (African American) 71.7; Est GFR (Non-African American) 61.9; Glucose 132 mg/dl (70-99); Lipase 571 U/L (73-393); Potassium 3.6 mmol/L (3.5-5.1); Sodium 136 mmol/L (136-145)
[2020-08-08 05:27] LABS: Alkaline Phosphatase 99 U/L (45-117); Bilirubin,Total 0.3 mg/dl (0.2-1); Globulin 4.1 gm/dl (2.5-4.0); Total Protein 8.2 gm/dl (6.4-8.2); Troponin I < 0.015 ng/ml (0-0.045)
[2020-08-08] MEDS ORDERED: EPTIFIBATIDE 2 MG/ML 10 ML VIAL (CATH LAB USE ONLY) IV ONE ×2 (05:27→05:42)
[2020-08-08] MEDS ORDERED: DOPamine 400MG / 250ML D5W (Cath Lab Use ONLY) ONE (05:32)
[2020-08-08] MEDS ORDERED: ATROPINE SULFATE 0.1 MG/ML 10ML SYR IV ONE (05:32)
[2020-08-08] MEDS ORDERED: METOPROLOL TARTRATE 1 MG/ML VIAL IV ONE (05:38)
[2020-08-08] MEDS ORDERED: NOREPINEPHRINE BITARTRATE 1 MG/ML 4 ML VIAL (CATH LAB USE ONLY) ONE (05:45)
--- NOTE | 2020-08-08 07:02 | XRay Report ---
XR chest 1V portable CLINICAL HISTORY: Atypical chest pain COMPARISON STUDY: 06/16/2019 FINDINGS: The cardiac and mediastinal contours are normal. There is no evidence of focal pulmonary co nsolidation. There is no evidence of failure. No pleural effusions are visualized.[ IMPRESSION: No active disease in the chest. ACT 112: Negative or not required by law. Electronically signed by: Issa Laureano M.D. 08/08/2020 7:01 AM
[2020-08-08] MEDS ORDERED: ONDANSETRON INJ 2 MG/ML 2 ML VIAL IV PRN (07:11)
[2020-08-08] MEDS ORDERED: EPTIFIBATIDE BOLUS/DRIP IV STA (07:11)
[2020-08-08] MEDS ORDERED: ACETAMINOPHEN 325 MG TAB PO PRN (07:11)
[2020-08-08] MEDS ORDERED: NITROGLYCERIN SL 0.4 MG/TAB TAB SL PRN (07:16)
[2020-08-08] MEDS ORDERED: ICU PROTOCOL FOR HYPERGLYCEMIA PRN (07:22)
[2020-08-08] MEDS ORDERED: STAT IV Infusion **Titration per Protocol STA (07:24)
--- NOTE | 2020-08-08 07:25 | Pre Anesthesia Assessment ---
Date of Service August 08, 2020 Pre Sedation Assessment Vital Signs Pulse Resp BP Pulse Ox 08/08/20 05:01 61 100 08/08/20 05:00 70 104/73 98 08/08/20 04:53 85 16 95/70 L 96 08/08/20 04:51 71 104/69 98 Cardiovascular RRR, no murmur, no edema Respiratory normal respiratory effort, lungs clear to auscultation Pre-Sedation Airway Assessment Smoking Status: Current every day smoker Hx Sleep Apnea: No Hx Difficult Intubation: No Short, Thick Neck: No Thyromental Distance: > or= 3.5 Finger Breadths Oral Cavity: + WNL Mallampati Class: III ASA: ASA3 Procedure Planning Contraindications for Sedation: none Current Medications Reviewed: Yes Notes The planned sedation has been discussed with the patient. Informed Consent was obtained. I have identified the patient, determined the appropriateness of sedation and have assessed the patient immediately prior to the procedure. All medicine(s) and interventions are by my order.
--- NOTE | 2020-08-08 07:25 | Post Anesthesia Assessment ---
Date of Service August 08, 2020 Post Sedation Assessment Vital Signs Pulse Resp BP Pulse Ox 08/08/20 05:01 61 100 08/08/20 05:00 70 104/73 98 08/08/20 04:53 85 16 95/70 L 96 08/08/20 04:51 71 104/69 98 Recovery Score Activity: Moves 4 extremities Respiration: Deep Breath/Cough Circulation: +/-20% PreAnes Value Consciousness: Fully Awake Oxygen Saturation: O2 needed for >90% Discharge Sedation Level of Care: Fast Track Phase II Post Sedation Plan On clinical assessment, the patient appears to have tolerated the sedation without complications. Patient is recovering as anticipated. Patient will continue to be monitored by nursing and may be discharged when sedation discharge criteria are met per below protocol. Upon Completions of procedure up to 15 minutes continue every 5 minute vital signs and the P.A.R. score; then discharge to a Phase I or Fast Track to Phase II per the following guidelines: * Discharge Patient to appropriate Phase II area if PAR is 8 or greater or return to pre- procedure baseline. The post - procedure orders will be as directed. * If PAR score is less than 8 or not return to pre-procedure baseline then patient will follow Phase I monitoring till PAR is reached for Phase II. The Phase I may be done in procedure room or may call to secure a Phase I area. * If naloxone or flumazenil are used for reversal, hold in Phase I for continued monitoring from when last reversal dose was given for a minimum of 60 minutes or longer pending the nurse and/or physician discretion of patient condition before discharge to Phase II. Please call the Sedation Physician to re-evaluate and complete post-note for discharge to Phase II area. Do NOT discharge from procedure sedation or Phase 1 until post- sedation evaluation note is complete by procedure /sedation MD Sedation Discharge Instructions to be given to the patient at discharge to home.
[2020-08-08] MEDS ORDERED: SODIUM CHLORIDE 0.9% 1000ML 1,000 ML IV SCH (07:30)
[2020-08-08] MEDS ORDERED: NOREPINEPHRINE BIT INJ 8 MG in DEXTROSE 5% 500 ML IV SCH (07:30)
--- NOTE | 2020-08-08 07:49 | Critical Care Consultation ---
Date of Consultation August 08, 2020 Assessment & Plan (1) ST elevation (STEMI) myocardial infarction: Reason Critically Ill: 49 yo M who is status post cardiac catheterization, which revealed 100% occlusion fo the distal circumflex at the bifurcation with a large PLB. He was loaded with 180mcg of ticagrelor and had two MELLY placed, 1 in the left PLB and 1 in the distal circumflex. During the cath, he went into ventricular fibrillation, requiring defibrillation x 1. Subsequently he was g iven norepinephrine for post-arrest cardiogenic shock. He has remained in rate controlled A-fib since the procedure. He was placed on an Integrilin drip in the labourers, which will be continued for 12 hours. He will start ticagrelor this evening for dual antiplatelet therapy. He was transferred to the ICU for continued monitoring. Plan to continue to wean his NE; will consider starting amiodarone for the atrial fibrillation if he does not spontaneously convert. Neuro: [facility] ICU: * Hx Depression - continue home dose sertraline Cardiac: * STEMI - status post cardiac cath with two MELLY placed, 1 in the left PLB and 1 in the distal circumflex - continue Integrilin drip for 12 hours; will start ticagrelor this evening - continue ASA 81mg, Atorvastatin 40mg, daily - will restart beta-shay and JOYCE as BP allows - trend trops till peak - Echo pending * A-fib - patient has been in this arrhythmia since the cath procedure - no RVR - will consider starting amio this afternoon if he does not covert to sinus - beta shay to be resumed once BP allows Respiratory: * Tobacco Abuse - 30 pack year history - recommend cessation - currently saturating 98% on 2L via NC - no hx of underlying lung disease GI: * Hx GERD - continue home PPI - heart healthy diet RENAL/LYTES: - kidney function normal - ICU electrolyte replacement per protocol : - UA benign on admission - no issues ENDO: - no history of diabetes or thyroid disease HEME: - Hgb normal, platelets normal ID: * Leukocytosis - WBC 14, with neurophil predom - suspect this is reactive to cardiac ischemia - continue to trend CBC - COVID 19 neg - Nasal MRSA swab pending LINES/IV ACCESS: 2 PIVs, 18 gauge CODE STATUS: Full DVT PROPHYLAXIS: [employer] Thank you for allowing us to participate in the care of this patient. Please refer to my attending physician's documentation for any further recommendations. Supervising Physician Co-Signing Physician Notes Dr. Curry was resident physician during care of patient. I separately evaluated patient for gonzalez portions of the history and the exam. I was present during the critical portion of medical decision making, and I discussed the case with the resident. I generally agree with the findings and plan. Continuing vasoactive medication currently weaning, if unable to wean in the next couple of hours will consider starting amiodarone for the atrial fibrillation. Optimizing electrolytes at the same time. Patient was discussed in multidisciplinary rounds. I have personally spent 45 minutes of critical care time in the direct management of this patient. This is a life/limb threatening event. This includes time spent evaluating patient, direct bedside care, chart review, placing orders, interpretation of diagnostic studies, discussion with consultants, patient, and/or family members regarding treatment decisions, as well as other required patient management activities. This time is exclusive of all separately billable procedures, and teaching time and separate from and in addition to any other critical care service time. History of Present Illness Reason for Consultation: Mr. Cazares is a 49 yo gentleman with a PMHx of coronary artery disease and a hx of an NSTEMI in 2018 for which he had two MELLY placed in his right RCA. His other vascular risk factors include hyperlipidemia and tobacco abuse. Mr. Cazares reports ~ 30 pack year history (has smoked since age 19, about 1 pack per day). He tried quitting after his first NM in 2018 with the help of "a pill,"but was unsuccessful. He is interested in quitting at this time. He follows with Dr. Figueroa at [facility]. Mr Cazares's current medication regimen consists of ASA 81mg, daily and Atorvastatin 40mg, daily; he denies any missed doses. He says he was on Brilinta, as well as "two other pills," for his heart after his first NM in 2018, but Dr. Figueroa told him he could stop them about 6 months ago. He presented to [facility] on the evening of 08/07 after he developed substernal chest pain while physically exerting himself at work. He had associated diaphoresis and nausea. On presentation to the emergency department, his troponin was undetectable, but his EKG was concerning for a STEMI. A heart alert was called and he was promptly taken to the labourers by Dr. Alvaro Bourne. He had 100% occlusion fo the distal circumflex at the bifurcation with a large PLB. He also had 50-60% stenosis of the mid LAD, which was an unchanged finding from his cath in 10/2018. He had two MELLY placed, 1 in the left PLB and 1 in the distal circumflex. During the cath, he went into ventricular fibrillation, requiring defibrillation x 1. Subsequently he was given norepinephrine for post-arrest cardiogenic shock. He has remained in rate, controlled A-fib since the procedure. He was transferred to the ICU for monitoring after the procedure. Attending Physician: Rosales Singh MD Allergies Allergy/AdvReac Type Severity Reaction Status Date / Time No Known Allergies Allergy Verified 08/08/20 04:54 Home Medications Home Medications Medication Instructions Recorded Confirmed Type aspirin 81 mg PO QAM 10/06/18 08/08/20 History atorvastatin [Lipitor] 80 mg PO QAM 10/06/18 08/08/20 History omeprazole 20 mg PO QAM 10/06/18 08/08/20 History sertraline [Zoloft] 50 mg PO QAM 10/06/18 08/08/20 History nitroglycerin [Nitrostat] 0.4 mg SUBLINGUAL UD PRN 10/07/18 08/08/20 History pantoprazole 40 mg PO DAILY 08/08/20 08/08/20 History Patient History Medical History (Updated 08/08/20 @ 06:32 by Jessi Morales DO) CAD (coronary artery disease) Depression RADHA (generalized anxiety disorder) GERD (gastroesophageal reflux disease) HLD (hyperlipidemia) Pancreatitis Surgical History History of heart artery stent Family History Other Diabetes Stroke Social History Smoking Status: Current every day smoker Tobacco Type: Cigarettes Years Smoked: 31; Cigarettes Per Day: 20; Tobacco Cessation Education Requested by Patient: No Hx Alcohol Use: No Hx Substance Use: No Preferred Language: Kyrgyz Communication Ability: Effective Caregiver Services Home Required: No Beliefs That Will Affect Care: None marital status: Single Current Living Situation: Alone current occupational status: employed Other Information That Helps Us Care for You: No Feels Safe at Home: Yes Safety Concerns: Feels Safe At This Time Assistive Devices: Glasses Review of Systems Respiratory: no dyspnea Cardiovascular: no chest pain Physical Exam Constitutional: WD/WN, vitals as above cooperative Eyes: + anicteric sclerae ENMT: external ear and nose normal, oropharynx normal Neck: trachea midline Respiratory: normal respiratory effort, lungs clear to auscultation Cardiovascular: Heart Sounds: normal S1 and normal S2; no gallop, no murmur and no cardiac rub Patient two into two runs of brief V-tach during exam that spontaneously resolved Gastrointestinal (Abdomen): normal bowel sounds, soft, nontender, no hepatosplenomegaly Skin: no rashes, warm and dry Psychiatric: A+Ox3, euthymic affect Results & Data Results & Data ([facility]) Vital Signs (Past 12 Hours) Vital Signs Pulse Resp BP Pulse Ox 08/08/20 05:01 61 100 08/08/20 05:00 70 104/73 98 08/08/20 04:53 85 16 95/70 L 96 08/08/20 04:51 71 104/69 98 Resident Activity Tracking Resident Involvement: Resident Care Provided Care Provided: Adult Hospital Medicine (1) ST elevation (STEMI) myocardial infarction Involved coronary artery: unspecified coronary artery Qualified Code(s): I21.3 - ST elevation (STEMI) myocardial infarction of unspecified site
--- NOTE | 2020-08-08 07:59 | Cardiac Catheterization ---
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 Cardiac Status Clinical evaluation leading to the procedure CAD Presenation: STEMI Anginal Classification: CCS IV Heart Failure: No Cardiogenic Shock within 24 Hours: Yes Cardiac Arrest within 24 Hours: Yes Imaging Studies Past 6 Months: No Stress Studies Past 6 Months: No Diagnostic Physicians Name: Dariel Bourne MD Status: Emergency Closure Device Percutaneous Entry Location: Ulnar Closure Device: Radial Band Recommendations: PCI without planned CABG PCI Indication: Immediate PCI for STEMI First Noted: First EKG Lesion Segment Name: Distal circumflex Culprit Artery: Yes Stenosis Prior to Rx (%): 100 Chronic Total Occlusion: No IVUS: No FFR: No Pre-Procedure ROBIN Flow: 0 Previously Treated Lesion: No Lesion Complexity: High/C Lesion Length (mm): 12 Thrombus Present: Yes Bifurcation Lesion: Yes Guidewire Across Lesion: Stenosis Post-Procedure (%): 0 Post-Procedure ROBIN Flow: 3 Devices(s) Deployed: Yes Yes Intraprocedure Events Significant Disection: No Perforation: No Cardiac Cath Procedure Full Procedure Date August 08, 2020 Pre-Procedure Diagnosis Pre-Procedure Diagnosis: STEMI AUC Score AUC Score: 9 Post-Procedure Diagnosis Post-Procedure Diagnosis: Severe CAD, Unsuccessful PCI and Elevated Intracardiac Pressures Procedure(s) Performed Procedure(s) Performed: Coronary Angiography, Left Heart Cath, Drug Eluting Stent, Ultrasound Guided Vascular Access and Defibrillation Jet Dyeing Machine Tender Dariel Bourne MD Cogeneration Operator(s) Gomez Estimated Blood Loss Estimated Blood Loss: 15 Medication(s) Medication(s): Aspirin, Atropine, Fentanyl, Heparin, Integrilin, Lidocaine 1%, Metoprolol, Nicardipine, Nitroglycerin, Norepinephrine and Versed Summary of Findings Indication: STEMI/Heart Alert Access: 6 Fr right ulnar access under ultrasound guidance Catheters: Premont, EBU 3.5 guide Findings: LM -angulated takeoff, medium caliber, short, luminal irregularities LAD -medium caliber, 40% ostial/proximal disease, 50 to 60% mid segment stenosis, distal vessel with luminal irregularities and tapers to apex. Medium D1 without significant disease Circumflex -codominant, large caliber, 100% acute distal circumflex occlusion after takeoff of large OM 2 with heavy thrombus burden. RCA -codominant, medium caliber, widely patent proximal to mid stent, mid segment luminal irregularities, patent mid to distal stent. Right PDA without significant disease LVEDP - 16 -- PCI -- Antithrombotic therapy: Heparin, Integrilin, ticagrelor Procedure: Left main cannulated with EBU 3.5 guide Liquid Floor And Wall Applier 50 wire passed across lesion into distal left PLB Distal circumflex lesion predilated with 2.5 compliant balloon With reestablished flow had transient bradycardia and hypotension requiring atr opine. With heavy thrombus burden started on IC/IV Integrilin Dilated lesion stented with 2.75 x 15 mm Ellis drug-eluting stent Following atropine sinus tachycardia and increased chest pain with pinch takeoff of distal circumflex. Given IV metoprolol Liquid Floor And Wall Applier 50 wire wire to cross stent struts into distal circumflex and left PDA Distal circumflex dilated across stent struts with 2.0 balloon Stent into left PLB post-dilated with 3.0 noncompliant balloon IC vasodilators administered for spasm Stent well expanded was ROBIN-3 flow. Severe stenosis persisted and takeoff of distal circumflex with ROBIN I flow into left PDA Second MELLY placed at bifurcation across stent struts into distal circumflex. With deployment stent moved backwards into PLB stent lumen. Post stent deployment unable to pass any balloon through initial stent into distal PLB. Wire pulled back and attempted to rewire through distal circumflex stent struts back into PLB Proximal stent reoccluded with ROBIN I flow, recurrent inferior ST elevations Patient developed VF requiring defibrillation x1 Post defibrillation was not rate controlled A. fib, hypotensive requiring norepinephrine Able to pass wire across stent back into distal into distal PLB With the aid of a telescope support catheter eventually able to pass a 1.5, 2.5 balloon with stent with reestablished flow. Initial stent into PLB again postdilated with 3.0 NC balloon IC vasodilators administered Post procedure chest pain-free, ST elevations resolved, ROBIN 3 flow in both stents, stent well expanded with minimal residual stenosis and no apparent cardiac complications. Arterial Closure: TR band Summary: 1. Inferior STEMI/100% acute distal circumflex occlusion at bifurcation with large PLB 2. Moderate nonobstructive non-culprit coronary artery disease -50 to 60% mid LAD (unchanged from 10/2018) Widely patent RCA stents 3. Normal intracardiac filling pressure 4. VF arrest requiring defibrillation x1 5. Post arrest cardiogenic shock requiring norepinephrine 6. Intraprocedure rate controlled atrial fibrillation 7. 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 Resume beta-shay/JOYCE as BP allows High-dose statin, smoking cessation Consult cardiac Rehab Hemodynamics Rest Ao:: 85/55 Final Ao: 70/48/58 LV: 70/16 Recommendations Recommendations: PCI without planned CABG Specimens Specimens: None Radiation Exposure (mGy) 4765 Contrast (mls) 150 Fluids (cc crystalloids) Fluids (cc crystalloids): 1700 Drains Drains: none Anesthesia moderate Procedural Complication(s) None Disposition ICU I attest to the content of the Intraoperative Record and any orders documented therein. Any exceptions are noted below. [facility] Card Cath Procedure Codes Cardiac Catheterization Procedure 1: Cardiovascular Cath Procedures: 36353 Coronaries and LHC (+/-LV) Therapeutic Services & Ancillary Proc Procedure 1: Cardiovascular Tx and Anc Procedures: 79942 Ultrasonic Guidance Vascular Access Procedure 2: Cardiovascular Tx and Anc Procedures: 15542 Cardioversion Moderate Sedation Procedure 1: Sedation/Anesthesia: 86848 Mod Sedation by the same physician;Init15 Min Child Age 5 & Up Procedure 2: Sedation/Anesthesia: 94896 Mod Sedation by the same physician; Ea [id number] Minutes Stenting Procedure 1: Cardiovascular Stent Procedures: 42673 Perc transluminal revascularization of acute sub/total occl, aMI PG Care Time/CCT Total # of Minutes Spent Total Time Spent with Patient: Total time spent is greater than 50% in coordination of care (as documented) at patient's floor/unit and/or counseling patient:
[2020-08-08] MEDS: EPTIFIBATIDE 75 MG/100 ML VIAL IV SCH ×2 (08:01→15:11)
[2020-08-08] MEDS: ASPIRIN 81 MG ECTAB PO SCH (09:10)
[2020-08-08] MEDS: PANTOprazole 40 MG TAB PO SCH (09:10)
[2020-08-08] MEDS: ATORVASTATIN 40 MG TAB PO SCH (09:10)
[2020-08-08] MEDS: SERTRALINE HCL 50 MG TABLET PO SCH (09:10)
--- NOTE | 2020-08-08 09:42 | History & Physical Report ---
Date of Service August 08, 2020 Assessment & Plan (1) ST elevation (STEMI) myocardial infarction: presented to [facility] for substernal chest pain with exertion associated diaphoresis and nausea. EKG shows STEMI with reciprocal change CODE HEART Alart s/p emergent cardiac cath with PTCA to 100% occluded Left circumflex developed cardiogenic shock /V fib requiring defibrillation x 1. cont to monitor in ICU . required pressor for cardiogenic shock appreciate input from cardiology Pt now chest pain free on minimal dose of norepi Beta shay will be initiated when BP stabilized on integrillin gtt now will need to be on dual antiplatelet therapy for at least 12 months ONGOING TOBACCO USE : strongly recommended absolute smoking cessation high risk for repeat NJ /stent occlusion /stenosis with continued Nicotine exposure via smoking Code status : FULL CODE Admission and Anticipated Discharge Date Admission Date: August 08, 2020 History of Present Illness Chief Complaint: chest pain /sob Primary Care Provider: Wade Bragg MD This is a 49 yo gentleman with a PMHx of coronary artery disease and a hx of an NSTEMI in 2018 for which he had two MELLY placed in his right RCA.hx of hyperlipidemia and on going tobacco abuse. came to ER [facility] with complain of severe substernal chest pain while physically exerting himself at work. associated diaphoresis and nausea EKG : showed inferior STEMI with reciprocal changes CODE HEART ALERT was called and pt was taken emergently to the slab miller operator by Dr. Alvaro Bourne. cath showed :severe coronary artery disease with 100% occlusion fo the distal circumflex s/p two MELLY placed, distal circumflex. developed for post-arrest cardiogenic shock on pressor /developed Afib He was transferred to the ICU for monitoring Allergies Allergy/AdvReac Type Severity Reaction Status Date / Time No Known Allergies Allergy Verified 08/08/20 04:54 Home Medications Home Medications Medication Instructions Recorded Confirmed Type aspirin 81 mg PO QAM 10/06/18 08/08/20 History atorvastatin [Lipitor] 80 mg PO QAM 10/06/18 08/08/20 History omeprazole 20 mg PO QAM 10/06/18 08/08/20 History sertraline [Zoloft] 50 mg PO QAM 10/06/18 08/08/20 History nitroglycerin [Nitrostat] 0.4 mg SUBLINGUAL UD PRN 10/07/18 08/08/20 History pantoprazole 40 mg PO DAILY 08/08/20 08/08/20 History Past Med/Surg History Medical History (Updated 08/08/20 @ 15:12 by Taras Figueroa DO) CAD (coronary artery disease) Depression RADHA (generalized anxiety disorder) GERD (gastroesophageal reflux disease) HLD (hyperlipidemia) Pancreatitis Surgical History History of heart artery stent Family History Other Diabetes Stroke Social History Smoking Status: Current every day smoker Tobacco Type: Cigarettes Years Smoked: 31; Cigarettes Per Day: 20; Tobacco Cessation Education Requested by Patient: No Hx Alcohol Use: No Hx Substance Use: No Preferred Language: Slovak Communication Ability: Effective Corporate Webmaster Required: No Beliefs That Will Affect Care: None marital status: Single Current Living Situation: Alone current occupational status: employed Other Information That Helps Us Care for You: No Feels Safe at Home: Yes Safety Concerns: Feels Safe At This Time Assistive Devices: Glasses Review of Systems 2 Review of Systems: All systems reviewed & are unremarkable except as noted in HPI & below Physical Exam Constitutional: WD/WN, vitals as above no acute distress Eyes: PERRL, conjunctivae normal, anicteric sclerae ENMT: external ear and nose normal, oropharynx normal Neck: trachea midline, no thyromegaly Respiratory: normal respiratory effort, lungs clear to auscultation Cardiovascular: RRR, no murmur, no edema Gastrointestinal (Abdomen): normal bowel sounds, soft, nontender, no hepatospl enomegaly Musculoskeletal: no cyanosis or clubbing, extremities motor strength 5/5 Skin: no rashes, warm and dry Neurologic: PERRL, EOMI, accommodation nl, no face palsy, no dysarthria Psychiatric: A+Ox3, euthymic affect Results & Data Results & Data ([facility]) Vital Signs (Past 12 Hours) Vital Signs Temp Pulse Resp BP Pulse Ox 08/08/20 08:31 78 15 98 08/08/20 08:29 71 4 L 102/78 97 08/08/20 08:25 69 7 L 78/59 L 99 08/08/20 08:09 78 10 L 86/60 L 08/08/20 08:00 86 12 96 08/08/20 07:54 83 18 98/73 L 98 08/08/20 07:45 36.5 C 18 08/08/20 07:39 79 23 108/73 92 08/08/20 07:31 83 16 80/61 L 91 08/08/20 07:30 79 17 90 08/08/20 07:26 85 10 L 80/52 L 08/08/20 05:01 61 100 08/08/20 05:00 70 104/73 98 08/08/20 04:53 85 16 95/70 L 96 08/08/20 04:51 71 104/69 98 Code Status & VTE Plan VTE Prophylaxis Plan VTE Prophylaxis will be ordered: Yes (1) ST elevation (STEMI) myocardial infarction Involved coronary artery: unspecified coronary artery Qualified Code(s): I21.3 - ST elevation (STEMI) myocardial infarction of unspecified site
[2020-08-08] MEDS ORDERED: POTASSIUM CHLORIDE 10 MEQ TABCR PO STA (10:55)
[2020-08-08] MEDS ORDERED: POTASSIUM CHLORIDE 20 MEQ TABCR PO STA (12:15)
[2020-08-08] MEDS: MAGNESIUM SULFATE / D5W 1 GM/100 ML BAG IV SCH ×2 (12:21→12:27)
--- NOTE | 2020-08-08 14:27 | Billing Data ---
Date of Service August 08, 2020 Coding Level of Care Code Critical Care 1st mins
--- NOTE | 2020-08-08 15:18 | Cardiology Consultation ---
Date of Consultation August 08, 2020 Assessment & Plan (1) ST elevation (STEMI) myocardial infarction: (2) Acute hypotension: (3) CAD (coronary artery disease): (4) Tobacco abuse: (5) Ventricular tachycardia: Pt now chest pain free on minimal dose of norepi Few short salvos of NSVT since transfer to ICU, no need for amio at this time unless NSVT burden increases Ideally would like to initiate beta shay but will have to allow BP to increase cont dual antiplatelet therapy need for absolute smoking cessation discussed with patient and his son given ongoing atherosclerotic events will attempt to maximize statin therapy along with antiinflammatory therapy current literature does not support the use of colchicine in this setting will change atorvastatin to rosuvastatin and add zetia niacin no longer indicated even in the setting of low HDL such as his will likely benefit from PCSK9 inhibitor as an outpatitent cont to monitor in ICU for at least 24 hours, at least 72 hour admission is indicated History of Present Illness Reason for Consultation: STEMI post intervention medical management Requesting Physician: Dr. Arzola Attending Physician: Rosales Singh MD History of Present Illness Mr. Cazares is a very pleasant 49 yo M who follows with me as an outpatient for his hx of CAD and dyslipidemia. He presented to [facility] early this AM with complaints of chest pain. He states he awoke from sleep with severe flushing, diaphoresis and crushing substernal chest pain. Upon presentation to the ED he was found to be suffering from an inferior wall STEMI. He was taken acutely to the warehouse general laborer where he under PCI to a culprit LCx lesion. Complicated by acute stent closure and sustained ventricular tachycardia requiring defibrillation. Blood flow restored and patient transferred to the intensive care unit on low- dose norepinephrine for BP support.. Clinically states he feels well. Short salvos of nonsustained ventricular tachycardia overnight. PAST MEDICAL HISTORY: 1.Coronary artery disease status post PCI to the RCA in the setting of a n yo-TA-iclnhmy elevation [place]. 2.Residual 60% mid-LAD stenosis with an FFR of 0.85. 3.Ongoing tobacco abuse. 4.Anxiety. Allergies Allergy/AdvReac Type Severity Reaction Status Date / Time No Known Allergies Allergy Verified 08/08/20 04:54 Home Medications Home Medications Medication Instructions Recorded Confirmed Type aspirin 81 mg PO QAM 10/06/18 08/08/20 History atorvastatin [Lipitor] 80 mg PO QAM 10/06/18 08/08/20 History omeprazole 20 mg PO QAM 10/06/18 08/08/20 History sertraline [Zoloft] 50 mg PO QAM 10/06/18 08/08/20 History nitroglycerin [Nitrostat] 0.4 mg SUBLINGUAL UD PRN 10/07/18 08/08/20 History pantoprazole 40 mg PO DAILY 08/08/20 08/08/20 History Patient History Medical History CAD (coronary artery disease) Depression RADHA (generalized anxiety disorder) GERD (gastroesophageal reflux disease) HLD (hyperlipidemia) Pancreatitis Surgical History History of heart artery stent Family History Other Diabetes Stroke Social History Smoking Status: Current every day smoker Tobacco Type: Cigarettes Years Smoked: 31; Cigarettes Per Day: 20; Tobacco Cessation Education Requested by Patient: No Hx Alcohol Use: No Hx Substance Use: No Preferred Language: Kazakh Communication Ability: Effective Harness Brusher Required: No Beliefs That Will Affect Care: None marital status: Single Current Living Situation: Alone current occupational status: employed Other Information That Helps Us Care for You: No Feels Safe at Home: Yes Safety Concerns: Feels Safe At This Time Assistive Devices: Glasses Review of Systems Review of Systems: All systems reviewed & are unremarkable except as noted in HPI & below Physical Exam Physical Exam: General: Awake, alert and oriented x 3. No acute distress. HEENT: Normocephalic, atraumatic. Pupils equal, round and reactive to light and accommodation. Extraocular muscles are intact. Anicteric sclera. Moist mucous membranes. Neck: No JVD. No bruit. Cardiovascular: Regular. Positive S-4. Normal S-1 and S-2. No S-3. No murmurs or rubs. Pulmonary: Clear to auscultation B/L. No rales, rhonchi or wheezing Abdomen: Bowel sounds x 4, soft. No rebound, guarding or tenderness. No organomegaly. Extremities: No clubbing, cyanosis or edema. +2 pedal pulses bilaterally. Skin: Warm and dry. Results & Data ([facility]) Vital Signs (Past 12 Hours) Vital Signs Temp Pulse Resp BP Pulse Ox 08/08/20 08:31 78 15 98 08/08/20 08:29 71 4 L 102/78 97 08/08/20 08:25 69 7 L 78/59 L 99 08/08/20 08:09 78 10 L 86/60 L 08/08/20 08:00 86 12 96 08/08/20 07:54 83 18 98/73 L 98 08/08/20 07:45 36.5 C 18 08/08/20 07:39 79 23 108/73 92 08/08/20 07:31 83 16 80/61 L 91 08/08/20 07:30 79 17 90 08/08/20 07:26 85 10 L 80/52 L 08/08/20 05:01 61 100 08/08/20 05:00 70 104/73 98 08/08/20 04:53 85 16 95/70 L 96 08/08/20 04:51 71 104/69 98 (1) ST elevation (STEMI) myocardial infarction Involved coronary artery: unspecified coronary artery Qualified Code(s): I21.3 - ST elevation (STEMI) myocardial infarction of unspecified site
[2020-08-08] MEDS: POTASSIUM CHLORIDE / WTR 10 MEQ/100 ML PLCT IV SCH ×2 (15:42→16:02)
[2020-08-08] MEDS ORDERED: METOPROLOL TARTRATE 50 MG TAB PO STA (15:45)
[2020-08-08] MEDS: TICAGRELOR 90 MG TAB PO SCH (18:38)
[2020-08-08] MEDS: MAGNESIUM OXIDE 400 MG TAB PO SCH (20:40)
--- NOTE | 2020-08-09 05:08 | Electrocardiogram Report ---
Test Reason : Blood Pressure : / mmHG Vent. Rate : 054 BPM Atrial Rate : 054 BPM P-R Int : 138 ms QRS Dur : 092 ms QT Int : 398 ms P-R-T Axes : 062 058 083 degrees QTc Int : 377 ms Sinus bradycardia with sinus arrhythmia ST elevation consider inferior injury or acute infarct ACUTE LA / STEMI Consider right ventricular involvement in acute inferior infarct Abnormal ECG When compared with ECG of 16-JUN-2019 08:06, AL interval has increased ST elevation now present in Inferior leads ST now depressed in Anterior leads Confirmed by Jaren Crow ([id number]) on 08/09/2020 5:08:09 AM Referred By: Confirmed By:Jaren Crow
[2020-08-09 05:11] LABS: Basophils # (auto) 0.02 K/uL (0-0.2); Basophils % (auto) 0.2 %; Eosinophils # (auto) 0.07 K/uL (0-0.5); Eosinophils % (auto) 0.8 %; Hematocrit (blood only) 36.2 % (42-52); Hemoglobin 12.2 g/dL (14.0-18.0); Immature Granulocytes # (auto) 0.01 K/uL (0.00-0.02); Immature Granulocytes % (auto) 0.1 %; Lymphocytes # (auto) 1.74 K/uL (1.2-3.4); Mean Corpuscular Hemoglobin 31.9 pg (25-34); Mean Corpuscular Hgb Conc 33.7 g/dL (32-36); Mean Corpuscular Volume 94.5 fL (80-100); Monocytes # (auto) 0.59 K/uL (0.11-0.59); Monocytes % (auto) 6.4 %; Neutrophils # (auto) 6.73 K/uL (1.4-6.5); Neutrophils % (auto) 73.5 %; Platelet Count 218 K/uL (130-400); RDW Coefficient of Variation 14.8 % (11.5-14.5); RDW Standard Deviation 50.8 fL (36.4-46.3); Red Blood Count 3.83 M/uL (4.7-6.1); White Blood Count 9.16 K/uL (4.8-10.8)
--- NOTE | 2020-08-09 05:16 | Electrocardiogram Report ---
Test Reason : Blood Pressure : / mmHG Vent. Rate : 075 BPM Atrial Rate : 000 BPM P-R Int : 000 ms QRS Dur : 090 ms QT Int : 368 ms P-R-T Axes : 000 025 064 degrees QTc Int : 410 ms Atrial fibrillation RSR' or QR pattern in V1 suggests right ventricular conduction delay Inferior infarct ST elevation, consider inferior injury pattern Abnormal ECG When compared with ECG of 08-AUG-2020 04:46, Atrial fibrillation has replaced Sinus rhythm ST less elevated in Inferior leads ST no longer depressed in Anterolateral leads Confirmed by Jaren Crow ([id number]) on 08/09/2020 5:16:45 AM Referred By: REFERRED SELF Confirmed By:Jaren Crow
[2020-08-09 06:01] LABS: Albumin Level 2.9 gm/dl (3.4-5.0); BUN Creatinine Ratio 12.1 (10-20); Bilirubin Direct 0.1 mg/dl (0-0.2); Bilirubin,Total 0.6 mg/dl (0.2-1); Calcium 8.1 mg/dl (8.5-10.1); Creatinine Clr Calc Pharmacy 71.2 ml/min; Est GFR (African American) 92.3; Est GFR (Non-African American) 79.6; Magnesium 2.5 mg/dl (1.8-2.4); Phosphorus 1.7 mg/dl (2.5-4.9); Potassium 4.4 mmol/L (3.5-5.1); Total Protein 5.9 gm/dl (6.4-8.2); Troponin I 54.5 ng/ml (0-0.045)
--- NOTE | 2020-08-09 06:10 | Critical Care Progress Note ---
Date of Service August 09, 2020 Assessment & Plan (1) ST elevation (STEMI) myocardial infarction: Reason Critically Ill: 49 yo M who is status post cardiac catheterization, which revealed 100% occlusion fo the distal circumflex at the bifurcation with a large PLB. He was loaded with 180mcg of ticagrelor and had two MELLY placed, 1 in the left PLB and 1 in the distal circumflex on 08/08. He was placed on an Integrilin drip in the clinical genetics laboratory chief, which was continued for 12 hours. During the cath, he went into ventricular fibrillation, requiring defibrillation x 1. Subsequently he was given norepinephrine for post-arrest cardiogenic shock. After the catheterization, he remained in rate controlled A-fib. He was transferred to the ICU for continued monitoring. At this point, patient has been totally weaned off his NE. His pressures remain soft, but MAPs are above goal. He spontaneously converted to normal sinus rhythm overnight. He is stable for ICU downgrade at this time. Neuro: [facility] ICU: * Hx Depression - continue home dose sertraline Cardiac: * STEMI - status post cardiac cath with two MELLY placed, 1 in the left PLB and 1 in the distal circumflex - Integrilin drip ran for 12 hours post-op - continue dual antiplatelet with ASA and ticagrelor - transition from atorvastatin to Rosuvastatin + zetia - start metoprolol tartrate 12.5mg q6h; Add ARB when BP allows - trops peaked at 69, have since downtrended - post-cath echo showing moderate hypokinesis of inferior/inferolateral LV bland; LV EF 50-55% - cardiology follow, appreciate recs * A-fib without RVR - resolved - patient went into this arrhythmia during cath - he spontaneously converted to sinus rhythm overnight - [id number] score of 1 Respiratory: * Tobacco Abuse - 30 pack year history - recommend cessation - currently saturating 98% on 2L via NC - no hx of underlying lung disease GI: * Hx GERD - continue home PPI - heart healthy diet RENAL/LYTES: - kidney function normal - ICU electrolyte replacement per protocol : - UA benign on admission - no issues ENDO: - no history of diabetes or thyroid disease HEME: - Hgb normal, platelets normal ID: * Leukocytosis - resolved - WBC 14 on admission, now normalized - suspect this is reactive to cardiac ischemia rather than infection - COVID 19 neg - Nasal MRSA swab negative LINES/IV ACCESS: 2 PIVs, 18 gauge CODE STATUS: Full DVT PROPHYLAXIS: Lovenox Thank you for allowing us to participate in the care of this patient. Please refer to my attending physician's documentation for any further recommendations. Admission and Anticipated Discharge Date Admission Date: August 08, 2020 Supervising Physician Co-Signing Physician Notes Dr. Curry was resident physician during care of patient. I separately evaluated patient for gonzalez portions of the history and the exam. I was present during the critical portion of medical decision making, and I discussed the case with the resident. I generally agree with the findings and plan. Patient converted to sinus rhythm has been seen by cardiology will initiate beta-blockers and transfer to telemetry unit. Subjective Overnight patient went into a run of Vtach, during which he was asymptomatic. Vtach spontaneously resolved. He denies any current chest pain, sob. Review of Systems Review of Systems: All systems reviewed & are unremarkable except as noted in HPI & below Physical Exam Constitutional: WD/WN, vitals as above cooperative Eyes: + anicteric sclerae ENMT: external ear and nose normal, oropharynx normal Neck: trachea midline Respiratory: normal respiratory effort, lungs clear to auscultation Cardiovascular: Heart Sounds: normal S1 and normal S2; no gallop, no murmur and no cardiac rub Gastrointestinal (Abdomen): normal bowel sounds, soft, nontender, no hepatosplenomegaly Skin: no rashes, warm and dry Psychiatric: A+Ox3, euthymic affect Results & Data Results & Data ([facility]) Vital Signs (Past 12 Hours) Vital Signs Temp Pulse Resp BP Pulse Ox 08/09/20 05:14 63 14 87/59 L 97 08/09/20 04:14 60 19 93/64 L 96 08/09/20 03:22 36.9 C 08/09/20 02:14 76 14 74/46 L 08/09/20 01:21 53 L 19 81/55 L 97 08/09/20 01:14 53 L 19 69/59 L 96 08/09/20 00:14 56 L 16 79/61 L 96 08/09/20 00:00 53 L 08/08/20 23:15 58 L 22 76/54 L 93 08/08/20 22:14 61 16 78/50 L 96 08/08/20 21:15 55 L 22 76/55 L 93 08/08/20 20:54 36.8 C 08/08/20 20:14 69 20 87/53 L 94 08/08/20 19:14 72 28 H 74/52 L 95 08/08/20 19:10 78 25 H 77/53 L 95 Resident Activity Tracking Resident Involvement: Resident Care Provided Care Provided: Adult Hospital Medicine (1) ST elevation (STEMI) myocardial infarction Involved coronary artery: unspecified coronary artery Qualified Code(s): I21.3 - ST elevation (STEMI) myocardial infarction of unspecified site
[2020-08-09] MEDS ORDERED: POTASSIUM PHOS 3 MMOL/1 ML INFUSION IV STA (06:35)
[2020-08-09] MEDS ORDERED: POTASSIUM PHOSPHATE 21 MMOL in SODIUM CHLORIDE 0.9% 500 ML IV ONE (07:00)
[2020-08-09] MEDS: ATORVASTATIN 40 MG TAB PO SCH (08:11)
[2020-08-09] MEDS: TICAGRELOR 90 MG TAB PO SCH ×2 (08:11→22:04)
[2020-08-09] MEDS: MAGNESIUM OXIDE 400 MG TAB PO SCH (08:11)
[2020-08-09] MEDS: POT PHOSPHATE MONOBASIC W/ SOD TAB PO SCH ×4 (08:11→22:04)
[2020-08-09] MEDS: SERTRALINE HCL 50 MG TABLET PO SCH (08:11)
[2020-08-09] MEDS: ASPIRIN 81 MG ECTAB PO SCH (08:11)
[2020-08-09] MEDS: PANTOprazole 40 MG TAB PO SCH (08:11)
--- NOTE | 2020-08-09 09:36 | Billing Data ---
Date of Service August 09, 2020 Coding Level of Care Code 89096 Subseq Hosp Care Lvl 2
[2020-08-09] MEDS: EZETIMIBE 10 MG TABLET PO SCH (09:48)
--- NOTE | 2020-08-09 10:02 | Cardiology Progress Note ---
Date of Service August 09, 2020 Assessment & Plan (1) ST elevation (STEMI) myocardial infarction: (2) Acute hypotension: (3) CAD (coronary artery disease): (4) Tobacco abuse: (5) PAF (paroxysmal atrial fibrillation): (6) NSVT (nonsustained ventricular tachycardia): Overall he is doing well and recovering nicely from his ST segment elevation SD. Short bursts of nonsustained ventricular tachycardia overnight. Spontaneously converted to normal sinus rhythm from A. fib, do not believe that long-term anticoagulation is necessitated at this time especially with dual antiplatelet therapy treatment. We will likely arrange for outpatient Zio patch monitor upon discharge to follow-up for his paroxysmal atrial fibrillation. Blood pressure is improved this a.m. so we will start beta-shay at this time with metoprolol 12.5 p.o. every 6. This would not only help facilitate myocardial recovery but also suppress any further ventricular arrhythmias. Would also recommend checking blood pressure in the right arm instead of the left. States that he is doing well with tobacco withdrawal and declines any nicotine supplementation. Continue dual antiplatelet therapy has been initiated. In order to maximize atherosclerotic treatment will change atorvastatin to rosuvastatin 40 mg daily. We will add Zetia. And will explore PCSK9 inhibitor therapy as an outpatient. Echo revealed hypokinesis of the circumflex distribution which will hopefully recover with time status post PCI. Unfortunately, his blood pressure will be a deterrent to starting afterload reduction with ARB but will follow closely. Transfer to telemetry. Will require at least 48 hours of observation on telemetry. Nicotine supplementation as desired per patient. (7) Ischemic cardiomyopathy: Admission and Anticipated Discharge Date Admission Date: August 08, 2020 Subjective Patient seen and examined, chart reviewed. Patient currently out of bed seated in a chair and states he feels great. Denies any chest pain, shortness of breath, palpitations, lightheadedness, dizziness or syncope. Did become a little hypotensive after dose of metoprolol yesterday but BP now improved. Telemetry reviewed: Normal sinus rhythm after spontaneous cardioversion to normal sinus rhythm. 2 short salvos of nonsustained V. tach overnight, asymptomatic. Review of Systems Review of Systems: All systems reviewed & are unremarkable except as noted in HPI & below Physical Exam Physical Exam: General: Awake, alert and oriented x 3. No acute distress. HEENT: Normocephalic, atraumatic. Pupils equal, round and reactive to light and accommodation. Extraocular muscles are intact. Anicteric sclera. Moist mucous membranes. Neck: No JVD. No bruit. Cardiovascular: Regular. Positive S-4. Normal S-1 and S-2. No S-3. No murmurs or rubs. Pulmonary: Clear to auscultation B/L. No rales, rhonchi or wheezing Abdomen: Bowel sounds x 4, soft. No rebound, guarding or tenderness. No organomegaly. Extremities: No clubbing, cyanosis or edema. +2 pedal pulses bilaterally. Skin: Warm and dry. Results & Data ([facility]) Vital Signs (Past 12 Hours) Vital Signs Temp Pulse Resp BP Pulse Ox 08/09/20 06:14 62 25 H 92/66 L 96 08/09/20 05:14 63 14 87/59 L 97 08/09/20 04:14 60 19 93/64 L 96 08/09/20 03:22 36.9 C 08/09/20 02:14 76 14 74/46 L 08/09/20 01:21 53 L 19 81/55 L 97 08/09/20 01:14 53 L 19 69/59 L 96 08/09/20 00:14 56 L 16 79/61 L 96 08/09/20 00:00 53 L 08/08/20 23:15 58 L 22 76/54 L 93 08/08/20 22:14 61 16 78/50 L 96 (1) ST elevation (STEMI) myocardial infarction Involved coronary artery: unspecified coronary artery Qualified Code(s): I21.3 - ST elevation (STEMI) myocardial infarction of unspecified site
[2020-08-09] MEDS: METOPROLOL TARTRATE 25 MG TAB PO SCH ×3 (12:13→23:03)
--- NOTE | 2020-08-09 19:05 | Hospitalist Progress Note ---
Date of Service August 09, 2020 Assessment & Plan (1) ST elevation (STEMI) myocardial infarction: presented to [facility] for substernal chest pain with exertion associated diaphoresis and nausea. EKG shows STEMI with reciprocal change CODE HEART Alart s/p emergent cardiac cath with PTCA to 100% occluded Left circumflex developed cardiogenic shock /V fib requiring defibrillation x 1. Required ICU admission Patient has been doing well transferred out of ICU No recurrence of chest pain or shortness of breath appreciate input from cardiology Will need to be on continue dual antiplatelet type platelet therapy for 12 months Continued with cardiac meds metoprolol, statin ONGOING TOBACCO USE : strongly recommended absolute smoking cessation high risk for repeat [place] /stent occlusion /stenosis with continued Nicotine exposure via smoking -counseling provided to patient, patient is agreeable to quit Code status : FULL CODE Admission and Anticipated Discharge Date Admission Date: August 08, 2020 Subjective Feels fine no recurrence of chest pain shortness of breath, offers no new complaint Physical Exam Constitutional: WD/WN, vitals as above no acute distress Eyes: PERRL, conjunctivae normal, anicteric sclerae ENMT: external ear and nose normal, oropharynx normal Neck: trachea midline, no thyromegaly Respiratory: normal respiratory effort, lungs clear to auscultation Cardiovascular: RRR, no murmur, no edema Gastrointestinal (Abdomen): normal bowel sounds, soft, nontender, no hepatosplenomegaly Musculoskeletal: no cyanosis or clubbing, extremities motor strength 5/5 Skin: no rashes, warm and dry Neurologic: PERRL, EOMI, accommodation nl, no face palsy, no dysarthria Psychiatric: A+Ox3, euthymic affect Results & Data Results & Data ([facility]) Vital Signs (Past 12 Hours) Vital Signs Temp Pulse Resp BP BP Pulse Ox 08/09/20 15:25 36.9 C 69 18 103/67 95 08/09/20 13:29 36.7 C 100 H 20 149/69 H 93 08/09/20 12:19 36.8 C 81 19 109/73 97 08/09/20 12:09 104/66 08/09/20 11:00 37.1 C 64 16 92/63 L 99 (1) ST elevation (STEMI) myocardial infarction Involved coronary artery: unspecified coronary artery Qualified Code(s): I21.3 - ST elevation (STEMI) myocardial infarction of unspecified site
--- NOTE | 2020-08-09 19:23 | Electrocardiogram Report ---
Test Reason : Blood Pressure : / mmHG Vent. Rate : 055 BPM Atrial Rate : 055 BPM P-R Int : 126 ms QRS Dur : 082 ms QT Int : 368 ms P-R-T Axes : 076 028 068 degrees QTc Int : 352 ms Poor data quality, interpretation may be adversely affected Sinus bradycardia Inferior-posterior infarct , age undetermined Abnormal ECG When compared with ECG of 08-AUG-2020 08:05, Sinus rhythm has replaced Atrial fibrillation QT has shortened Confirmed by Jaren Crow ([id number]) on 08/09/2020 7:23:04 PM Referred By: REFERRED SELF Confirmed By:Jaren Crow
[2020-08-10] MEDS: METOPROLOL TARTRATE 25 MG TAB PO SCH ×3 (06:19→17:39)
[2020-08-10 07:29] LABS: Calcium 8.6 mg/dl (8.5-10.1); Creatinine Clr Calc Pharmacy 73.2 ml/min; Est GFR (African American) 95.5; Est GFR (Non-African American) 82.4
[2020-08-10] MEDS: TICAGRELOR 90 MG TAB PO SCH ×2 (08:35→20:02)
[2020-08-10] MEDS: ROSUVASTATIN CALCIUM 20 MG TAB PO SCH (08:35)
[2020-08-10] MEDS: ASPIRIN 81 MG ECTAB PO SCH (08:36)
[2020-08-10] MEDS: POT PHOSPHATE MONOBASIC W/ SOD TAB PO SCH ×4 (08:37→19:57)
[2020-08-10] MEDS: EZETIMIBE 10 MG TABLET PO SCH (08:37)
[2020-08-10] MEDS: MAGNESIUM OXIDE 400 MG TAB PO SCH (08:37)
[2020-08-10] MEDS: PANTOprazole 40 MG TAB PO SCH (08:37)
[2020-08-10] MEDS: SERTRALINE HCL 50 MG TABLET PO SCH (08:38)
--- NOTE | 2020-08-10 14:38 | Cardiology Progress Note ---
Date of Service August 10, 2020 Assessment & Plan (1) ST elevation (STEMI) myocardial infarction: (2) Acute hypotension: (3) CAD (coronary artery disease): (4) Tobacco abuse: (5) Ventricular tachycardia: Remains symptom-free. No further ventricular episodes on monitor. cont dual antiplatelet therapy need for absolute smoking cessation discussed with patient and he is in agreement. Now tolerating low-dose beta-shay. Will continue. Continue current lipid therapy. will likely benefit from PCSK9 inhibitor as an outpatitent Anticipate discharge in the a.m. after completing 72 hours of telemetry. Admission and Anticipated Discharge Date Admission Date: August 08, 2020 Subjective Patient seen and examined, chart reviewed. Resting in bed without complaint. Denies any chest pain, shortness of breath, palpitations, lightheadedness, dizziness or syncope. States he has been doing okay without a cigarette. Telemetry reviewed: Normal sinus rhythm without arrhythmia or significant ectopy. Review of Systems Review of Systems: All systems reviewed & are unremarkable except as noted in HPI & below Physical Exam Physical Exam: General: Awake, alert and oriented x 3. No acute distress. HEENT: Normocephalic, atraumatic. Pupils equal, round and reactive to light and accommodation. Extraocular muscles are intact. Anicteric sclera. Moist mucous membranes. Neck: No JVD. No bruit. Cardiovascular: Regular. Positive S-4. Normal S-1 and S-2. No S-3. No murmurs or rubs. Pulmonary: Clear to auscultation B/L. No rales, rhonchi or wheezing Abdomen: Bowel sounds x 4, soft. No rebound, guarding or tenderness. No organomegaly. Extremities: No clubbing, cyanosis or edema. +2 pedal pulses bilaterally. Skin: Warm and dry. Results & Data ([facility]) Vital Signs (Past 12 Hours) Vital Signs Temp Pulse Pulse Resp BP Pulse Ox 08/10/20 11:14 36.9 C 74 16 113/73 95 08/10/20 08:00 36.6 C 77 18 111/72 95 08/10/20 04:12 36.9 C 76 18 111/72 95 (1) ST elevation (STEMI) myocardial infarction Involved coronary artery: unspecified coronary artery Qualified Code(s): I21.3 - ST elevation (STEMI) myocardial infarction of unspecified site
--- NOTE | 2020-08-10 17:54 | Hospitalist Progress Note ---
Date of Service August 10, 2020 Assessment & Plan (1) ST elevation (STEMI) myocardial infarction: presented to [facility] for substernal chest pain with exertion associated diaphoresis and nausea. EKG shows STEMI with reciprocal change CODE HEART Alart s/p emergent cardiac cath with PTCA to 100% occluded Left circumflex developed cardiogenic shock /V fib requiring defibrillation x 1. Required ICU admission Patient has been doing well transferred out of ICU No recurrence of chest pain or shortness of breath appreciate input from cardiology Will need to be on continue dual antiplatelet therapy Brillinta /aspirin for 12 months Continued with cardiac meds metoprolol, statin Cardiology office follow up in 1-2 weeks ONGOING TOBACCO USE : strongly recommended absolute smoking cessation high risk for repeat [place] /stent occlusion /stenosis with continued Nicotine exposure via smoking -counseling provided to patient, patient is agreeable to quit Code status : FULL CODE Disposition: Possible discharge home tomorrow Admission and Anticipated Discharge Date Admission Date: August 08, 2020 Subjective No complain of SOB or chest heaviness no cough feels fine no cardiac arrythmia noted in tele Review of Systems Review of Systems: All systems reviewed & are unremarkable except as noted in HPI & below Physical Exam Constitutional: WD/WN, vitals as above no acute distress Eyes: PERRL, conjunctivae normal, anicteric sclerae ENMT: external ear and nose normal, oropharynx normal Neck: trachea midline, no thyromegaly Respiratory: normal respiratory effort, lungs clear to auscultation Cardiovascular: RRR, no murmur, no edema Gastrointestinal (Abdomen): normal bowel sounds, soft, nontender, no hepatosplenomegaly Musculoskeletal: no cyanosis or clubbing, extremities motor strength 5/5 Skin: no rashes, warm and dry Neurologic: PERRL, EOMI, accommodation nl, no face palsy, no dysarthria Psychiatric: A+Ox3, euthymic affect Results & Data Results & Data ([facility]) Vital Signs (Past 12 Hours) Vital Signs Temp Pulse Resp BP Pulse Ox 08/10/20 15:47 36.7 C 72 18 101/64 98 08/10/20 11:14 36.9 C 74 16 113/73 95 08/10/20 08:00 36.6 C 77 18 111/72 95 (1) ST elevation (STEMI) myocardial infarction Involved coronary artery: unspecified coronary artery Qualified Code(s): I21.3 - ST elevation (STEMI) myocardial infarction of unspecified site
[2020-08-11] MEDS: METOPROLOL TARTRATE 25 MG TAB PO SCH ×3 (00:27→11:53)
[2020-08-11] MEDS: ASPIRIN 81 MG ECTAB PO SCH (08:18)
[2020-08-11] MEDS: ROSUVASTATIN CALCIUM 20 MG TAB PO SCH (08:18)
[2020-08-11] MEDS: PANTOprazole 40 MG TAB PO SCH (08:18)
[2020-08-11] MEDS: EZETIMIBE 10 MG TABLET PO SCH (08:19)
[2020-08-11] MEDS: POT PHOSPHATE MONOBASIC W/ SOD TAB PO SCH ×2 (08:19→11:53)
[2020-08-11] MEDS: MAGNESIUM OXIDE 400 MG TAB PO SCH (08:19)
[2020-08-11] MEDS: SERTRALINE HCL 50 MG TABLET PO SCH (08:21)
[2020-08-11] MEDS: TICAGRELOR 90 MG TAB PO SCH (08:43)
--- NOTE | 2020-08-11 13:16 | Cardiology Progress Note ---
Date of Service August 11, 2020 Assessment & Plan (1) ST elevation (STEMI) myocardial infarction: (2) Acute hypotension: (3) CAD (coronary artery disease): (4) Tobacco abuse: (5) Ventricular tachycardia: Remains symptom-free. No further ventricular episodes on monitor. cont dual antiplatelet therapy need for absolute smoking cessation discussed with patient and he is in agreement. Okay to discharge to home from a cardiac standpoint. Discharge home on current medical regimen but would recommend changing metoprolol to metoprolol succinate 25 mg p.o. daily. My office will call to arrange follow-up with me in the next 1 to 2 weeks. He is to remain off work until seen by me in follow-up. Activity and restrictions reviewed. Admission and Anticipated Discharge Date Admission Date: August 08, 2020 Subjective Patient seen and examined, chart reviewed. No complaints overnight and denies experiencing chest pain, shortness of breath, palpitations, lightheadedness, dizziness or syncope. Telemetry reviewed: Normal sinus rhythm without arrhythmia or significant ectopy. Review of Systems Review of Systems: All systems reviewed & are unremarkable except as noted in HPI & below Physical Exam Physical Exam: General: Awake, alert and oriented x 3. No acute distress. HEENT: Normocephalic, atraumatic. Pupils equal, round and reactive to light and accommodation. Extraocular muscles are intact. Anicteric sclera. Moist mucous membranes. Neck: No JVD. No bruit. Cardiovascular: Regular. Positive S-4. Normal S-1 and S-2. No S-3. No murmurs or rubs. Pulmonary: Clear to auscultation B/L. No rales, rhonchi or wheezing Abdomen: Bowel sounds x 4, soft. No rebound, guarding or tenderness. No organomegaly. Extremities: No clubbing, cyanosis or edema. +2 pedal pulses bilaterally. Skin: Warm and dry. Results & Data ([facility]) Vital Signs (Past 12 Hours) Vital Signs Temp Pulse Resp BP Pulse Ox 08/11/20 11:51 36.4 C L 60 18 112/68 97 08/11/20 08:16 36.7 C 69 18 119/65 98 08/11/20 04:36 36.7 C 67 18 111/72 96 (1) ST elevation (STEMI) myocardial infarction Involved coronary artery: unspecified coronary artery Qualified Code(s): I21.3 - ST elevation (STEMI) myocardial infarction of unspecified site
--- NOTE | 2020-08-11 15:39 | Hospitalist Progress Note ---
Date of Service August 11, 2020 Assessment & Plan (1) ST elevation (STEMI) myocardial infarction: presented to [facility] for substernal chest pain with exertion associated diaphoresis and nausea. EKG shows STEMI with reciprocal change CODE HEART Alart s/p emergent cardiac cath with PTCA to 100% occluded Left circumflex developed cardiogenic shock /V fib requiring defibrillation x 1. Required ICU admission Patient has been doing well transferred out of ICU No recurrence of chest pain or shortness of breath appreciate input from cardiology Will need to be on continue dual antiplatelet therapy Brillinta /aspirin for 12 months-scripts sent to pharmacy Continued with cardiac meds Beta shay adjusted Toprol XL 25 mg daily , statin Cardiology office follow up in 1-2 weeks ONGOING TOBACCO USE : strongly recommended absolute smoking cessation high risk for repeat [place] /stent occlusion /stenosis with continued Nicotine exposure via smoking -counseling provided to patient, patient is agreeable to quit Code status : FULL CODE Disposition: stable to be discharged home today Admission and Anticipated Discharge Date Admission Date: August 08, 2020 Subjective no new complains feels fine , no recurrence of chest pain or SOB ambulating independently no B[place]ON no cough , no fever or chills Review of Systems Review of Systems: All systems reviewed & are unremarkable except as noted in HPI & below Physical Exam Constitutional: WD/WN, vitals as above no acute distress Eyes: PERRL, conjunctivae normal, anicteric sclerae ENMT: external ear and nose normal, oropharynx normal Neck: trachea midline, no thyromegaly Respiratory: normal respiratory effort, lungs clear to auscultation Cardiovascular: RRR, no murmur, no edema Gastrointestinal (Abdomen): normal bowel sounds, soft, nontender, no hepatosplenomegaly Musculoskeletal: no cyanosis or clubbing, extremities motor strength 5/5 Skin: no rashes, warm and dry Neurologic: PERRL, EOMI, accommodation nl, no face palsy, no dysarthria Psychiatric: A+Ox3, euthymic affect Results & Data Results & Data ([facility]) Vital Signs (Past 12 Hours) Vital Signs Temp Pulse Resp BP Pulse Ox 08/11/20 15:14 36.4 C L 60 18 112/68 97 08/11/20 11:51 36.4 C L 60 18 112/68 97 08/11/20 08:16 36.7 C 69 18 119/65 98 08/11/20 04:36 36.7 C 67 18 111/72 96 (1) ST elevation (STEMI) myocardial infarction Involved coronary artery: unspecified coronary artery Qualified Code(s): I21.3 - ST elevation (STEMI) myocardial infarction of unspecified site
--- NOTE | 2020-08-11 15:40 | Discharge Summary ---
Date of Service August 11, 2020 Admission HPI Per Admitting Provider This is a 49 yo gentleman with a PMHx of coronary artery disease and a hx of an NSTEMI in 2018 for which he had two MELLY placed in his right RCA.hx of hyperlipidemia and on going tobacco abuse. came to ER [facility] with complain of severe substernal chest pain while physically exerting himself at work. associated diaphoresis and nausea EKG : showed inferior STEMI with reciprocal changes CODE HEART ALERT was called and pt was taken emergently to the [facility] by Dr. Alvaro Bourne. cath showed :severe coronary artery disease with 100% occlusion fo the distal circumflex s/p two MELLY placed, distal circumflex. developed for post-arrest cardiogenic shock on pressor /developed Afib He was transferred to the ICU for monitoring Principal Diagnosis ACUTE ME /HEART ATTACK Discharge Exam Constitutional WD/WN, vitals as above no acute distress Eyes PERRL, conjunctivae normal, anicteric sclerae ENMT external ear and nose normal, oropharynx normal Neck trachea midline, no thyromegaly Respiratory normal respiratory effort, lungs clear to auscultation Cardiovascular RRR, no murmur, no edema Gastrointestinal (Abdomen) normal bowel sounds, soft, nontender, no hepatosplenomegaly Musculoskeletal no cyanosis or clubbing, extremities motor strength 5/5 Skin no rashes, warm and dry Neurologic PERRL, EOMI, accommodation nl, no face palsy, no dysarthria Psychiatric A+Ox3, euthymic affect Discharge Data Allergies Allergy/AdvReac Type Severity Reaction Status Date / Time No Known Allergies Allergy Verified 08/08/20 04:54 Consultations 08/08/20 07:21 Consult Cardiac Rehabilitation Routine 08/08/20 07:22 Consult Case Management - Discharge Planning Routine Consult Police Manager Routine 08/08/20 12:26 Consult Cardiology Routine Procedures Performed Operation Date: 08/08/20 05:00 Actual Procedures p Aspiration/PCI w/MELLY for Stemi - Ilia Bourne MD s Cineradiography w/Routine Exam - Ilia Bourne MD s Cath, Left with Cors and Vent - Ilia Bourne MD s Cardiopulmonary Resuscitation - Ilia Bourne MD s Drug Eluting Stent each ADDTL Vessel - Ilia Bourne MD Ordered Studies 08/08/20 04:55 CL Cath Imgs for PACS use only Stat Hospital Course (1) ST elevation (STEMI) myocardial infarction: presented to [facility] for substernal chest pain with exertion associated diaphoresis and nausea. EKG shows STEMI with reciprocal change CODE HEART Alart s/p emergent cardiac cath with PTCA to 100% occluded Left circumflex developed cardiogenic shock /V fib requiring defibrillation x 1. Required ICU admission Patient has been doing well transferred out of ICU No recurrence of chest pain or shortness of breath appreciate input from cardiology Will need to be on continue dual antiplatelet therapy Brillinta /aspirin for 12 months-scripts sent to pharmacy Continued with cardiac meds Beta shay adjusted Toprol XL 25 mg daily , statin Cardiology office follow up in 1-2 weeks ONGOING TOBACCO USE : strongly recommended absolute smoking cessation high risk for repeat [place] /stent occlusion /stenosis with continued Nicotine exposure via smoking -counseling provided to patient, patient is agreeable to quit Code status : FULL CODE Disposition: stable to be discharged home today Total Time Total Time Spent Total Time Spent (In Minutes): approx 35 mins Total Time Includes: Examination of the Patient, Discharge Planning and Medication Reconciliation Discharge Plan Discharge Items Patient Disposition: Home - Self-Care Reason For Visit: STEMI Discharge Diagnosis: ACUTE ME /HEART ATTACK Activity: As commented below Lifting: No more than 10 pounds Exercise/Sports: Wait until after follow-up appointment Non-emergency contact: Primary Care Provider Call non-emergency contact if: you have any medication questions Follow-up/Referrals: Taras Figueroa DO [Physician] - (CARDIOLOGY OFFICE WILL CALL YOU WITH APPOINTMENT IN 1-2 WEEKS ) Wade Bragg MD [Primary Care Provider] - (HOSPITAL FOLLOW UP IN A WEEK ) Diet: Heart Healthy Addtl Attending Provider Instructions: IT IS VERY IMPORTANT TO TAKE MEDICATIONS INSTRUCTED DO NOT STOP TAKING ANY MEDS WITH OUT TALKING WITH YOU DOCTOR NEED TO QUIT SMOKING COMPLETELY , PLEASE FOLLOW UP WITH YOUR FAMILY PHYSICIAN FOR HELP WITH SMOKING CESSATION RETURN TO ER WITH ANY RECURRENCE OF CHEST HEAVINESS , CHEST PAIN OR SHORTNESS OF BREATH DO NOT TO STRENUOUS ACTIVITY TILL SEEN BY YOUR DESCRIPTIVE CATALOG LIBRARIAN NEED TO BE OFF FROM WORK TILL SEEN BY YOUR DESCRIPTIVE CATALOG LIBRARIAN Pending Studies at Discharge: No Stand-Alone Forms: My [employer], Work/School Release (Inpt), Smoking Cessation Medications and DC Order Prescriptions: New magnesium oxide 400 mg (241.3 mg magnesium) Tablet 400 mg PO DAILY 30 Days Qty: 30 RF: 0 ezetimibe [Zetia] 10 mg Tablet 10 mg PO QAM 30 Days Qty: 30 RF: 0 rosuvastatin [Crestor] 20 mg Tablet 40 mg PO QAM 30 Days Qty: 60 RF: 0 Brilinta 90 mg Tablet 90 mg PO BID 30 Days Qty: 60 RF: 3 metoprolol succinate 25 mg tablet extended release 24 hr 25 mg PO DAILY Qty: 30 RF: 3 Continued aspirin 81 mg tablet,delayed release (DR/EC) 81 mg PO QAM RF: 0 sertraline [Zoloft] 50 mg tablet 50 mg PO QAM RF: 0 pantoprazole 40 mg tablet,delayed release (DR/EC) 40 mg PO DAILY RF: 0 nitroglycerin [Nitrostat] 0.4 mg tablet, sublingual 0.4 mg Sublingual UD PRN (Reason: Chest Pain) RF: 0 Discontinued atorvastatin [Lipitor] 80 mg tablet 80 mg PO QAM RF: 0 omeprazole 20 mg capsule,delayed release(DR/EC) 20 mg PO QAM RF: 0 Discharge Orders: Discharge Order (Routine); Ordered 08/11/20 Ordered By: Kathya Vazquez/Other Patient Handouts: Cholesterol Medicines, First Aid: Heart Attacks, Cardiac Rehab Exercise Program, CAD, Heart Attack Dc Admission Data Admit Date/Time: 08/08/20 07:22 Attending Provider: Kathya Arzola Admit Provider: lIia Bourne Primary Care Provider: Wade Bragg Other Providers: Rosales Singh ; Jean Pierre Garcia ; Taras Figueroa Other Interventions: Discharge Summary Assessment (RN) Last Done: 08/11/20 15:14
== END 2020-08-11 15:36 | disposition home or self-care (01) | DRG 246 ==
LOC: ED 04:40 → CC 05:10 → SUATTDRO 07:22 → 1E 07:22 → 2S 08-09 10:40
PROC: CLB.CPR (2020-08-08 05:00)

== ENCOUNTER 2020-12-06 08:55 | Observation (INO) ==
--- NOTE | 2020-12-06 09:18 | Emergency Department Note ---
Impression & Plan Chest pain, Breath shortness ED Provider Note NAME: SAMUEL RIDER AGE: 50 SEX: M : 1970 ARRIVES VIA: Ambulance INFORMANT: Patient ED PROVIDER(S): Florentino Smith DO CHIEF COMPLAINT: chest pain HPI: Patient is a 50-year-old male with a past medical history of ischemic cardiomyopathy, nonsustained VT, paroxysmal A. fib, STEMI, splenic infarct who presents the ER for left-sided chest pressure/heaviness. He had 2 stents placed this past July. He had 2 stents placed about 2 to 3 years prior to this. He denies any arm or jaw pain. He admits to sweating and nausea with this. This started last night around 9. He took a total of 3 nitro and the pain resolved then. When he woke up this morning he says it was worse than it had been last night. He denies any belly pain, dysuria, urgency or frequency. No other exacerbating or remitting factors. Patient notes that this is nearly exactly consistent with his previous MIs. His pain is currently at best a 1 out of 10 as he received nitro, aspirin and morphine prior to arrival. ROS: See above HPI for pertinent positives & negatives. A total of 10 systems reviewed and were otherwise negative. PAST MEDICAL HISTORY:See Below PAST SURGICAL HISTORY:See Below FAMILY HISTORY:See Below SOCIAL HISTORY:See Below HOME MEDICATIONS:See Below ALLERGIES:See Below VITALS:See Below PHYSICAL EXAMINATION: GENERAL: Sitting up in bed, alert, well appearing, well nourished, no distress, non-toxic EYE EXAM: normal conjunctiva. PERRL and EOM's grossly intact. OROPHARYNX: no exudate, no erythema, lips, buccal mucosa, and tongue normal and mucous membranes are moist NECK: supple, no nuchal rigidity, no adenopathy, non-tender LUNGS: Clear to auscultation. Normal chest wall mechanics HEART: no murmurs, S1 normal and S2 normal ABDOMEN: abdomen soft, non-tender, normo-active bowel sounds, no masses, no rebo und or guarding. BACK: Back is symmetrical on inspection and there is no deformity, no midline tenderness, no CVA tenderness. SKIN: no rashes and no bruising UPPER EXTREMITIES: upper extremities are grossly normal. LOWER EXTREMITIES: No pitting edema. Calves are equal bilateral NEURO EXAM: Normal sensorium, cranial nerves II-XII grossly intact, normal speech, no gross weakness of arms, no gross weakness of legs. MEDICAL DECISION MAKING: Patient is a 50-year-old gentleman with a past medical history of 2 previous MIs and multiple stents that presents the ER for precordial chest pain. IV was established blood work was obtained. Labs show no significant leukocytosis or anemia. BMP along with LFTs bilirubin were unremarkable. His troponin was negative. Covid was negative. Portable AP upright 1 view of the chest was unremarkable. Patient was given nitro aspirin and morphine prior to arrival with near resolution of chest pain and then it recurred. He was given additional morphine. Is updated bedside and discussed with hospitalist for further evaluation include cardiology. Triage Nursing notes reviewed. Limited review of prior medical records performed Vital Signs: reviewed and remarkable for no significant abnormalities Differential diagnosis: Differential diagnoses includes but is not limited to acute coronary syndrome, myocardial infarction, pericarditis, pulmonary embolus, aortic dissection, pneumonia, pneumothorax, musculoskeletal, shingles, esophageal. ER treatment provided: See below Diagnostics interpreted by me: ECG: Sinus rhythm rate of 60 Normal axis No PVCs Right bundle branch block QTC 382 ST elevations have improved and inferior leads with now ST depressions in lead III in comparison to July 2020 Cardiac Monitoring: An order was placed for continuous cardiac monitoring. The monitor shows a rate of 62 with sinus rhythm. Laboratory studies: As stated above and show below. Imaging studies: Audible AP upright 1 view the chest shows no focal infiltrate or pneumothorax Consultation(s): Discussed with Felecia sinha for further evaluation Discussed with Sheldon Sheth who agreed to evaluate the patient and admission Procedures: none Critical Care: None Past Med/Surg History Medical History CAD (coronary artery disease) 2018-RCA stent x 2 07/2020-STEMI, s/p PCI to left circumflex with 2 MELLY. Post procedure complicated by V. fib arrest requiring defibrillation. Depression RADHA (generalized anxiety disorder) GERD (gastroesophageal reflux disease) HLD (hyperlipidemia) Pancreatitis Splenic infarct Tobacco abuse Surgical History History of vasectomy Family History Other Diabetes Stroke Social History Smoking Status: Current every day smoker Tobacco Type: Cigarettes Years Smoked: 31; Cigarettes Per Day: 2; Second Hand Exposure: No; Do You Dip or Chew Tobacco: No; Tobacco Cessation Education Requested by Patient: No Hx Alcohol Use: No Hx Substance Use: No Preferred Language: Thai Communication Ability: Effective Superintendent Electric Power Required: No Beliefs That Will Affect Care: None marital status: Single Current Living Situation: Alone current occupational status: employed Other Information That Helps Us Care for You: No Feels Safe at Home: Yes Safety Concerns: Feels Safe At This Time Assistive Devices: None Allergies Allergies Allergy/AdvReac Type Severity Reaction Status Date / Time No Known Allergies Allergy Verified 12/06/20 10:12 Home Meds Home Medications Medication Instructions Recorded Confirmed aspirin 81 mg PO QAM 10/06/18 12/06/20 sertraline [Zoloft] 50 mg PO QAM 10/06/18 12/06/20 nitroglycerin [Nitrostat] 0.4 mg SUBLINGUAL UD PRN 10/07/18 12/06/20 pantoprazole 40 mg PO QAM 08/08/20 12/06/20 dicyclomine 10 mg PO BID PRN 12/06/20 12/06/20 ezetimibe 10 mg PO QAM 12/06/20 12/06/20 famotidine 40 mg PO HS 12/06/20 12/06/20 isosorbide mononitrate 60 mg PO DAILY 12/06/20 12/06/20 magnesium oxide 400 mg PO QAM 12/06/20 12/06/20 metoprolol succinate 25 mg PO QAM 12/06/20 12/06/20 rosuvastatin 40 mg PO QAM 12/06/20 12/06/20 varenicline [Chantix Starting 1 ea DIRECTED 12/06/20 12/06/20 Month Box] Previous Rx's Medication Instructions Recorded ticagrelor [Brilinta] 90 mg PO BID 30 Days #60 tab 08/11/20 Results & Data (ED) Vital Signs Vital Signs - 24 hr 12/06/20 09:02 12/06/20 09:05 12/06/20 09:10 Temperature 36.8 C Temperature Source Oral Pulse Rate 71 68 72 Pulse Rate from SpO2 Sensor 71 75 Respiratory Rate 20 20 19 Respiratory Effort / Characteristics Non-Labored Spontaneous Respiratory Depth Normal Respiratory Pattern Regular Blood Pressure 120/73 120/73 Blood Pressure Mean 88 88 Pulse Oximetry 97 96 97 Oxygen Delivery Method Room Air Sepsis Recent Fever Within 48 Hours No Sepsis New/Unexplained Change in Mental Status N/A Sepsis Action Taken by Nursing No Action Required 12/06/20 09:30 12/06/20 09:42 12/06/20 09:44 Temperature Temperature Source Pulse Rate 60 63 57 L Pulse Rate from SpO2 Sensor 61 63 57 L Respiratory Rate 20 16 17 Respiratory Effort / Characteristics Respiratory Depth Respiratory Pattern Blood Pressure 119/74 109/81 111/80 Blood Pressure Mean 89 90 90 Pulse Oximetry 96 97 97 Oxygen Delivery Method Sepsis Recent Fever Within 48 Hours Sepsis New/Unexplained Change in Mental Status Sepsis Action Taken by Nursing 12/06/20 09:45 12/06/20 10:00 12/06/20 10:01 Temperature Temperature Source Pulse Rate 63 54 L 55 L Pulse Rate from SpO2 Sensor 63 55 L 56 L Respiratory Rate 19 18 18 Respiratory Effort / Characteristics Respiratory Depth Respiratory Pattern Blood Pressure 103/68 111/75 Blood Pressure Mean 79 87 Pulse Oximetry 96 95 96 Oxygen Delivery Method Sepsis Recent Fever Within 48 Hours Sepsis New/Unexplained Change in Mental Status Sepsis Action Taken by Nursing Laboratory Data Result diagrams: 12/06/20 09:15 12/06/20 09:15 Lab Results 12/06/20 12/06/20 12/06/20 Range/Units 09:15 09:15 10:00 WBC 9.05 (4.8-10.8) K/uL RBC 4.65 L (4.7-6.1) M/uL Hgb 15.6 (14.0-18.0) g/dL Hct 44.8 (42-52) % MCV 96.3 (80-100) fL MCH 33.5 (25-34) pg MCHC 34.8 (32-36) g/dL RDW Std Deviation 48.6 H (36.4-46.3) fL RDW Coeff of Mckinley 13.8 (11.5-14.5) % Plt Count 281 (130-400) K/uL MPV 9.2 (7.4-10.4) fL Immature Gran % (Auto) 0.2 % Neut % (Auto) 69.1 % Lymph % (Auto) 23.4 % Runn[place] % (Auto) 5.7 % Eos % (Auto) 1.0 % Baso % (Auto) 0.6 % Neut # (Auto) 6.25 (1.4-6.5) K/uL Lymph # (Auto) 2.12 (1.2-3.4) K/uL R[place]els # (Auto) 0.52 (0.11-0.59) K/uL Eos # (Auto) 0.09 (0-0.5) K/uL Baso # (Auto) 0.05 (0-0.2) K/uL Immature Gran # (Auto) 0.02 (0.00-0.02) K/uL Sodium 137 (136-145) mmol/L Potassium 3.6 (3.5-5.1) mmol/L Chloride 105 (98-107) mmol/L Carbon Dioxide 25 (21-32) mmol/L Anion Gap 7.0 (3-11) BUN 11 (7-18) mg/dl Creatinine 1.14 (0.6-1.4) mg/dl Est Cr Clr Drug Dosing 66.7 ml/min Est GFR ( Amer) 85.8 Est GFR (Non-Af Amer) 74.1 BUN/Creatinine Ratio 9.7 L (10-20) Glucose 107 H (70-99) mg/dl Calcium 9.5 (8.5-10.1) mg/dl Total Bilirubin 0.5 (0.2-1) mg/dl AST 14 L (15-37) U/L ALT 21 (12-78) U/L Alkaline Phosphatase 77 (45-117) U/L Troponin I < 0.015 (0-0.045) ng/ml Total Protein 7.7 (6.4-8.2) gm/dl Albumin 4.1 (3.4-5.0) gm/dl Globulin 3.6 (2.5-4.0) gm/dl Albumin/Globulin Ratio 1.1 (0.9-2) COVID-19 Eval Order Covid19 [facility] SARS-CoV-2, RNA, NAAT (NEGATIVE) 12/06/20 Range/Units 10:00 WBC (4.8-10.8) K/uL RBC (4.7-6.1) M/uL Hgb (14.0-18.0) g/dL Hct (42-52) % MCV (80-100) fL MCH (25-34) pg MCHC (32-36) g/dL RDW Std Deviation (36.4-46.3) fL RDW Coeff of Mckinley (11.5-14.5) % Plt Count (130-400) K/uL MPV (7.4-10.4) fL Immature Gran % (Auto) % Neut % (Auto) % Lymph % (Auto) % [place] % (Auto) % Eos % (Auto) % Baso % (Auto) % Neut # (Auto) (1.4-6.5) K/uL Lymph # (Auto) (1.2-3.4) K/uL R[place] # (Auto) (0.11-0.59) K/uL Eos # (Auto) (0-0.5) K/uL Baso # (Auto) (0-0.2) K/uL Immature Gran # (Auto) (0.00-0.02) K/uL Sodium (136-145) mmol/L Potassium (3.5-5.1) mmol/L Chloride (98-107) mmol/L Carbon Dioxide (21-32) mmol/L Anion Gap (3-11) BUN (7-18) mg/dl Creatinine (0.6-1.4) mg/dl Est Cr Clr Drug Dosing ml/min Est GFR ( Amer) Est GFR (Non-Af Amer) BUN/Creatinine Ratio (10-20) Glucose (70-99) mg/dl Calcium (8.5-10.1) mg/dl Total Bilirubin (0.2-1) mg/dl AST (15-37) U/L ALT (12-78) U/L Alkaline Phosphatase (45-117) U/L Troponin I (0-0.045) ng/ml Total Protein (6.4-8.2) gm/dl Albumin (3.4-5.0) gm/dl Globulin (2.5-4.0) gm/dl Albumin/Globulin Ratio (0.9-2) COVID-19 Eval Order SARS-CoV-2, RNA, NAAT NEGATIVE (NEGATIVE) Administered Medications Discontinued Medications Al Hydrox/Mg Hydrox/Simethicone (Gi Cocktail Ed Use) 1 dose PO ONE STA Stop: 12/06/20 11:29 Last Admin: 12/06/20 11:31 Dose: 1 dose Documented by: [id number] Morphine Sulfate (Morphine Sulfate 2 Mg/Ml Carp) 2 mg IV NOW STA Stop: 12/06/20 10:16 Last Admin: 12/06/20 10:21 Dose: 2 mg Documented by: [id number] Nitroglycerin (Nitroglycerin Sl 0.4 Mg/Tab Tab) 0.4 mg SL PRN PRN PRN Reason: chest pain Stop: 01/05/21 09:30 Last Admin: 12/06/20 09:42 Dose: 0.4 mg Documented by: [id number] Discharge Plan Visit Data Chief Complaint: Chest Pain ED Provider: Florentino Smith Discharge Problem: Chest pain, Breath shortness Patient Disposition: Admitted As Inpatient Discharge Instructions Interventions: ED Discharge Assessment Last Done: 12/06/20 11:35 Discharge Problem: Chest pain Qualifiers: Chest pain type: unspecified Qualified Code(s): R07.9 - Chest pain, unspecified
[2020-12-06] MEDS ORDERED: NITROGLYCERIN SL 0.4 MG/TAB TAB SL PRN ×2 (09:31→12:08)
[2020-12-06 09:38] LABS: Basophils # (auto) 0.05 K/uL (0-0.2); Basophils % (auto) 0.6 %; Eosinophils # (auto) 0.09 K/uL (0-0.5); Hematocrit (blood only) 44.8 % (42-52); Hemoglobin 15.6 g/dL (14.0-18.0); Immature Granulocytes # (auto) 0.02 K/uL (0.00-0.02); Immature Granulocytes % (auto) 0.2 %; Lymphocytes # (auto) 2.12 K/uL (1.2-3.4); Lymphocytes % (auto) 23.4 %; Mean Corpuscular Hemoglobin 33.5 pg (25-34); Mean Corpuscular Hgb Conc 34.8 g/dL (32-36); Mean Corpuscular Volume 96.3 fL (80-100); Mean Platelet Volume 9.2 fL (7.4-10.4); Monocytes # (auto) 0.52 K/uL (0.11-0.59); Monocytes % (auto) 5.7 %; Neutrophils # (auto) 6.25 K/uL (1.4-6.5); Neutrophils % (auto) 69.1 %; Platelet Count 281 K/uL (130-400); RDW Coefficient of Variation 13.8 % (11.5-14.5); RDW Standard Deviation 48.6 fL (36.4-46.3); Red Blood Count 4.65 M/uL (4.7-6.1); White Blood Count 9.05 K/uL (4.8-10.8)
[2020-12-06 09:45] LABS: Alanine Aminotransferase 21 U/L (12-78); Albumin Level 4.1 gm/dl (3.4-5.0); Aspartate Aminotransferase 14 U/L (15-37); BUN Creatinine Ratio 9.7 (10-20); Blood Urea Nitrogen 11 mg/dl (7-18); Calcium 9.5 mg/dl (8.5-10.1); Carbon Dioxide 25 mmol/L (21-32); Chloride 105 mmol/L (98-107); Creatinine Clr Calc Pharmacy 66.7 ml/min; Est GFR (African American) 85.8; Est GFR (Non-African American) 74.1; Glucose 107 mg/dl (70-99); Potassium 3.6 mmol/L (3.5-5.1); Sodium 137 mmol/L (136-145)
[2020-12-06 09:49] LABS: Albumin Globulin Ratio 1.1 (0.9-2); Alkaline Phosphatase 77 U/L (45-117); Bilirubin,Total 0.5 mg/dl (0.2-1); Globulin 3.6 gm/dl (2.5-4.0); Total Protein 7.7 gm/dl (6.4-8.2); Troponin I < 0.015 ng/ml (0-0.045)
--- NOTE | 2020-12-06 09:56 | XRay Report ---
XR chest 1V portable CLINICAL HISTORY: Atypical chest pain COMPARISON STUDY: 08/08/2020 FINDINGS: The cardiac and mediastinal contours are normal. There is no evidence of focal pulmonary co nsolidation. There is no evidence of failure. No pleural effusions are visualized.[ IMPRESSION: No active disease in the chest. ACT 112: Negative or not required by law. Electronically signed by: Issa Laureano M.D. 12/06/2020 9:55 AM
[2020-12-06] MEDS ORDERED: MoRPHine SULFATE 2 MG/ML CARP IV STA (10:15)
[2020-12-06] MEDS ORDERED: GI COCKTAIL ED USE PO STA (11:28)
--- NOTE | 2020-12-06 12:01 | Cardiology Consultation ---
Date of Consultation December 06, 2020 Assessment & Plan (1) Chest pain: (2) HLD (hyperlipidemia): (3) RADHA (generalized anxiety disorder): (4) CAD (coronary artery disease): The patient appears to be comfortable but is still having chest discomfort. Nitroglycerin and morphine have not seemed to help. I have asked them to run the second troponin now. He has had ongoing chest discomfort since early this morning and if this is really acute coronary syndrome we should see an elevation in his cardiac troponins. If the second troponin is within normal limits then I think we can look for other causes for his chest pain. I would continue his current treatment at present. History of Present Illness History of Present Illness This is a 50-year-old male patient who in July of last year presented with an inferior wall myocardial infarction and was taken to the cardiac catheterization lab. He was noted to have a high-grade stenosis of the left circumflex artery and received drug-eluting stents. During that procedure he did have ventricular fibrillation requiring cardioversion. The patient also has a previous history of coronary stents in the right coronary artery. The patient had been doing well. Initially after his most recent event he required the start of Imdur. After that medication was started he did well without any shortness of breath or chest pain. This morning he got up to go to work and was sitting on his couch at 4 AM when he developed chest pain which he describes as severe. He states that this pain is similar to what he had when he presented with his VT in July. The patient took 3 sublingual nitroglycerin without relief. He called the paramedics and he was given an additional sublingual nitroglycerin as well as morphine during transport and in the emergency department. None of the above is really take it his chest pain completely away. He continues have chest pain. He describes it as a 7-8 out of 10 however, he is very comfortable and not short of breath and does not seem to be in any acute distress. His first set of cardiac markers are negative. His EKG shows an incomplete right bundle branch block and no acute changes. Unfortunately the patient has continued to smoke despite his cardiac history and recent events. PAST MEDICAL HISTORY: 1.Coronary artery disease status post PCI to the RCA in the setting of a [id number] elevation VT. 2.Inferior STEMI/100% acute distal circumflex occlusion at bifurcation with large PLB 3. Moderate nonobstructive non-culprit coronary artery disease -50 to 60% mid LAD (unchanged from 10/2018) Widely patent RCA stents 4. Normal intracardiac filling pressure 5. Post arrest cardiogenic shock requiring norepinephrine 6. Intraprocedure rate controlled atrial fibrillation 2.Residual 60% mid-LAD stenosis with an FFR of 0.85. 3.Ongoing tobacco abuse. 4.Anxiety. Allergies Allergy/AdvReac Type Severity Reaction Status Date / Time No Known Allergies Allergy Verified 12/06/20 10:12 Home Medications Medication Instructions Recorded Confirmed Type aspirin 81 mg PO QAM 10/06/18 12/06/20 History sertraline [Zoloft] 50 mg PO QAM 10/06/18 12/06/20 History nitroglycerin [Nitrostat] 0.4 mg SUBLINGUAL UD PRN 10/07/18 12/06/20 History pantoprazole 40 mg PO QAM 08/08/20 12/06/20 History ticagrelor [Brilinta] 90 mg PO BID 30 Days #60 tab 08/11/20 12/06/20 Rx dicyclomine 10 mg PO BID PRN 12/06/20 12/06/20 History ezetimibe 10 mg PO QAM 12/06/20 12/06/20 History famotidine 40 mg PO HS 12/06/20 12/06/20 History isosorbide mononitrate 60 mg PO DAILY 12/06/20 12/06/20 History magnesium oxide 400 mg PO QAM 12/06/20 12/06/20 History metoprolol succinate 25 mg PO QAM 12/06/20 12/06/20 History rosuvastatin 40 mg PO QAM 12/06/20 12/06/20 History varenicline [Chantix Starting 1 ea DIRECTED 12/06/20 12/06/20 History Month Box] Patient History Medical History CAD (coronary artery disease) Depression RADHA (generalized anxiety disorder) GERD (gastroesophageal reflux disease) HLD (hyperlipidemia) Pancreatitis Surgical History (Updated 12/06/20 @ 12:04 by HAKAN Chen) History of vasectomy Family History Other Diabetes Stroke Social History Smoking Status: Current every day smoker Tobacco Type: Cigarettes Years Smoked: 31; Cigarettes Per Day: 20; Hx Alcohol Use: No Hx Substance Use: No Preferred Language: Qatari Communication Ability: Effective Edge Gluer Required: No Beliefs That Will Affect Care: None marital status: Single Current Living Situation: Alone current occupational status: employed Feels Safe at Home: Yes Assistive Devices: Glasses Review of Systems Review of Systems: All systems reviewed & are unremarkable except as noted in HPI & below Patient does have a history of GERD and Casanova's esophagus. Physical Exam Physical Exam: General: no acute distress and stated age Head: normocephalic, no masses, lesions, tenderness or abnormalities Eyes: conjunctiva are pink and non-injected, sclera clear Neck: supple, no adenopathy, no bruits, normal jugular venous pulse, no hepatojugular reflux Chest: normal shape and normal respiratory effort Lungs: clear to auscultation and percussion Cardiac Exam: - regular rate & rhythm, no murmurs gallops or rubs - normal S1, normal S2 Pulses: 2(+) throughout Abdomen: abdomen soft, non-tender, no abnormal masses and no hepatosplenomegaly Musculoskeletal: no gait disturbance, no joint inflammation, no deforming arthritis Extremities: no edema and no cyanosis Neuro: grossly normal exam Results & Data ([facility]) Vital Signs (Past 12 Hours) Vital Signs Temp Pulse Resp BP Pulse Ox 12/06/20 11:30 65 15 119/89 99 12/06/20 11:00 54 L 20 107/75 98 12/06/20 10:31 58 L 17 97 12/06/20 10:30 59 L 20 108/80 95 12/06/20 10:01 55 L 18 96 12/06/20 10:00 54 L 18 111/75 95 12/06/20 09:45 63 19 103/68 96 12/06/20 09:44 57 L 17 111/80 97 12/06/20 09:42 63 16 109/81 97 12/06/20 09:30 60 20 119/74 96 12/06/20 09:10 72 19 97 12/06/20 09:05 36.8 C 68 20 120/73 96 12/06/20 09:02 71 20 120/73 97 Laboratory Results Laboratory Results - last 24 hr 12/06/20 12/06/20 12/06/20 09:15 09:15 10:00 WBC 9.05 RBC 4.65 L Hgb 15.6 Hct 44.8 MCV 96.3 MCH 33.5 MCHC 34.8 RDW Std Deviation 48.6 H RDW Coeff of Mckinley 13.8 Plt Count 281 MPV 9.2 Immature Gran % (Auto) 0.2 Neut % (Auto) 69.1 Lymph % (Auto) 23.4 [place] % (Auto) 5.7 Eos % (Auto) 1.0 Baso % (Auto) 0.6 Neut # (Auto) 6.25 Lymph # (Auto) 2.12 [place] # (Auto) 0.52 Eos # (Auto) 0.09 Baso # (Auto) 0.05 Immature Gran # (Auto) 0.02 Sodium 137 Potassium 3.6 Chloride 105 Carbon Dioxide 25 Anion Gap 7.0 BUN 11 Creatinine 1.14 Est Cr Clr Drug Dosing 66.7 Est GFR ( Amer) 85.8 Est GFR (Non-Af Amer) 74.1 BUN/Creatinine Ratio 9.7 L Glucose 107 H Calcium 9.5 Total Bilirubin 0.5 AST 14 L ALT 21 Alkaline Phosphatase 77 Troponin I < 0.015 Total Protein 7.7 Albumin 4.1 Globulin 3.6 Albumin/Globulin Ratio 1.1 COVID-19 Eval Order Covid19 IDNow [facility] SARS-CoV-2, RNA, NAAT 12/06/20 12/06/20 10:00 11:49 WBC RBC Hgb Hct MCV MCH MCHC RDW Std Deviation RDW Coeff of Mckinley Plt Count MPV Immature Gran % (Auto) Neut % (Auto) Lymph % (Auto) [place] % (Auto) Eos % (Auto) Baso % (Auto) Neut # (Auto) Lymph # (Auto) [place] # (Auto) Eos # (Auto) Baso # (Auto) Immature Gran # (Auto) Sodium Potassium Chloride Carbon Dioxide Anion Gap BUN Creatinine Est Cr Clr Drug Dosing Est GFR ( Amer) Est GFR (Non-Af Amer) BUN/Creatinine Ratio Glucose Calcium Total Bilirubin AST ALT Alkaline Phosphatase Troponin I Pending Total Protein Albumin Globulin Albumin/Globulin Ratio COVID-19 Eval Order SARS-CoV-2, RNA, NAAT NEGATIVE Medications Administered Current Inpatient Medications Nitroglycerin (Nitroglycerin Sl 0.4 Mg/Tab Tab) 0.4 mg SL PRN PRN PRN Reason: chest pain Stop: 01/05/21 09:30 Last Admin: 12/06/20 09:42 Dose: 0.4 mg Documented by:
[2020-12-06] MEDS ORDERED: ACETAMINOPHEN 325 MG TAB PO PRN (12:08)
--- NOTE | 2020-12-06 12:11 | History & Physical Report ---
Date of Service December 06, 2020 Assessment & Plan (1) Chest pain: (2) CAD (coronary artery disease): -Admit to telemetry -Patient presenting from home with reports of persistent substernal chest pressure since last evening -History of CAD, 2018-RCA stent x2, 07/2020-STEMI s/p PCI to left circumflex with 2 MELLY -Initial troponin negative, EKG without acute ST changes -No relief of discomfort with sublingual nitroglycerin or IV morphine -Patient given GI cocktail with complete relief of symptoms -Discomfort likely GI in nature, however given history will complete cardiac evaluation -Continue cycle cardiac enzymes, check resting echo -Cardiology consult, case discussed with Dr. Sheth -Given likely GI etiology and symptoms, will increase patient's Protonix to 40 mg twice daily, provide Magic swizzle with Carafate as needed, continue home famotidine -No signs of bleeding ulcer, Hgb stable -Discussed with HAKAN Calle who will arrange for outpatient follow-up in the GI clinic. EGD evaluation may be limited due to patient's DAPT therapy (3) GERD (gastroesophageal reflux disease): EGD from April 2020 did not show short segment Casanova's esophagus Likely the cause for his epigastric pain We will increase the PPI to 2 times a day Discussed with the GI and we will have EGD as an outpatient down the line (4) DVT prophylaxis: -SCDs Admission and Anticipated Discharge Date Admission Date: December 06, 2020 History of Present Illness Chief Complaint: Chest pain Primary Care Provider: Wade Bragg MD 50-year-old male with PMH CAD (s/p RCA stent x 2 in 2018, STEMI 07/2020 s/p PCI to LCx with V. fib arrest requiring defibrillation), GERD, dyslipidemia, anxiety, and other problems listed below who presents the ED for evaluation of chest pain. Patient reports that last evening around 7 PM, he developed a substernal chest pressure while sitting on his couch. Patient rates the pain 8/10. Reports that he went to work around 11 PM and the pain continued. He took 3 sublingual nitroglycerin without relief. Reports associated shortness of breath, nausea, and diaphoresis. Patient remained at work until 1 AM, due to the chest discomfort he returned home. Patient reports the chest discomfort persisted throughout the night. He then presented to the ED for further evaluation. Patient denies palpitations. Reports some intermittent lightheadedness and dizziness overnight however no syncopal event. Denies any other recent illnesses, fevers, chills. No abdominal pain, vomiting, diarrhea. No urinary symptoms. In the ED, initial troponin is negative, EKG does not show any acute ST changes. Patient is hemodynamically stable. Patient received sublingual nitroglycerin and IV morphine without any relief in his pain. Patient reports compliance with all outpatient medications. Allergies Allergy/AdvReac Type Severity Reaction Status Date / Time No Known Allergies Allergy Verified 12/06/20 10:12 Home Medications Medication Instructions Recorded Confirmed Type aspirin 81 mg PO QAM 10/06/18 12/06/20 History sertraline [Zoloft] 50 mg PO QAM 10/06/18 12/06/20 History nitroglycerin [Nitrostat] 0.4 mg SUBLINGUAL UD PRN 10/07/18 12/06/20 History pantoprazole 40 mg PO QAM 08/08/20 12/06/20 History ticagrelor [Brilinta] 90 mg PO BID 30 Days #60 tab 08/11/20 12/06/20 Rx dicyclomine 10 mg PO BID PRN 12/06/20 12/06/20 History ezetimibe 10 mg PO QAM 12/06/20 12/06/20 History famotidine 40 mg PO HS 12/06/20 12/06/20 History isosorbide mononitrate 60 mg PO DAILY 12/06/20 12/06/20 History magnesium oxide 400 mg PO QAM 12/06/20 12/06/20 History metoprolol succinate 25 mg PO QAM 12/06/20 12/06/20 History rosuvastatin 40 mg PO QAM 12/06/20 12/06/20 History varenicline [Chantix Starting 1 ea DIRECTED 12/06/20 12/06/20 History Month Box] Past Med/Surg History Medical History CAD (coronary artery disease) 2017-RCA stent x 2 07/2020-STEMI, s/p PCI to left circumflex with 2 MELLY. Post procedure complicated by V. fib arrest requiring defibrillation. Depression RADHA (generalized anxiety disorder) GERD (gastroesophageal reflux disease) HLD (hyperlipidemia) Pancreatitis Splenic infarct Tobacco abuse Surgical History History of vasectomy Family History Other Diabetes Stroke Social History Smoking Status: Current every day smoker Tobacco Type: Cigarettes Years Smoked: 31; Cigarettes Per Day: 2; Second Hand Exposure: No; Do You Dip or Chew Tobacco: No; Tobacco Cessation Education Requested by Patient: No Hx Alcohol Use: No Hx Substance Use: No Preferred Language: Georgian Communication Ability: Effective Garment Liner Required: No Beliefs That Will Affect Care: None marital status: Single Current Living Situation: Alone current occupational status: employed Other Information That Helps Us Care for You: No Feels Safe at Home: Yes Safety Concerns: Feels Safe At This Time Assistive Devices: None Review of Systems Review of Systems: ROS per HPI, all other systems reviewed and negative Physical Exam Constitutional: WD/WN, vitals as above Eyes: PERRL, conjunctivae normal, anicteric sclerae ENMT: external ear and nose normal, oropharynx normal Respiratory: normal respiratory effort, lungs clear to auscultation Cardiovascular: Rate/Rhythm: regular rate and regular rhythm Vessels: normal peripheral pulses Extremities: no edema Gastrointestinal (Abdomen): normal bowel sounds, soft, nontender, no hepatosplenomegaly Musculoskeletal: no cyanosis or clubbing, extremities motor strength 5/5 Skin: no rashes, warm and dry Neurologic: PERRL, EOMI, accommodation nl, no face palsy, no dysarthria Psychiatric: A+Ox3, euthymic affect Results & Data Results & Data ([facility]) Vital Signs (Past 12 Hours) Vital Signs Temp Pulse Resp BP Pulse Ox 12/06/20 11:30 65 15 119/89 99 12/06/20 11:00 54 L 20 107/75 98 12/06/20 10:31 58 L 17 97 12/06/20 10:30 59 L 20 108/80 95 12/06/20 10:01 55 L 18 96 12/06/20 10:00 54 L 18 111/75 95 12/06/20 09:45 63 19 103/68 96 12/06/20 09:44 57 L 17 111/80 97 12/06/20 09:42 63 16 109/81 97 12/06/20 09:30 60 20 119/74 96 12/06/20 09:10 72 19 97 12/06/20 09:05 36.8 C 68 20 120/73 96 12/06/20 09:02 71 20 120/73 97 Laboratory Results Short CBC 12/06/20 Range/Units 09:15 WBC 9.05 (4.8-10.8) K/uL Hgb 15.6 (14.0-18.0) g/dL Hct 44.8 (42-52) % Plt Count 281 (130-400) K/uL BMP 12/06/20 09:15 Sodium 137 Potassium 3.6 Chloride 105 Carbon Dioxide 25 BUN 11 Creatinine 1.14 Glucose 107 H Calcium 9.5 Cardiac Enzymes 12/06/20 12/06/20 Range/Units 09:15 11:49 Troponin I < 0.015 0.021 (0-0.045) ng/ml Liver Function 12/06/20 Range/Units 09:15 Total Bilirubin 0.5 (0.2-1) mg/dl AST 14 L (15-37) U/L ALT 21 (12-78) U/L Alkaline Phosphatase 77 (45-117) U/L Albumin 4.1 (3.4-5.0) gm/dl Diagnostic Findings CXR IMPRESSION: No active disease in the chest. Code Status & VTE Plan Code Status Patient is a full code as per my discussion with him. 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
[2020-12-06] MEDS ORDERED: MoRPHine SULFATE 2 MG/ML CARP IV PRN (12:19)
[2020-12-06] MEDS ORDERED: ALUMINUM/MAGNESIUM SUSP 50 ML, diphenhydrAMINE Syrup 125 MG, LIDOCAINE VISCOUS 2% SOLN ... PO PRN (13:24)
--- NOTE | 2020-12-06 14:08 | Electrocardiogram Report ---
Test Reason : Blood Pressure : / mmHG Vent. Rate : 060 BPM Atrial Rate : 060 BPM P-R Int : 128 ms QRS Dur : 092 ms QT Int : 382 ms P-R-T Axes : 063 019 034 degrees QTc Int : 382 ms Normal sinus rhythm Possible Left atrial enlargement Incomplete right bundle branch block Borderline ECG When compared with ECG of 08-AUG-2020 21:28, ST no longer depressed in Anterior leads Confirmed by Dariel Parada ([id number]) on 12/06/2020 2:08:28 PM Referred By: Confirmed By:Johnny Parada
[2020-12-06] MEDS: TICAGRELOR 90 MG TAB PO SCH (20:50)
[2020-12-06] MEDS: PANTOprazole 40 MG TAB PO SCH (20:50)
[2020-12-06] MEDS ORDERED: FAMOTIDINE 40 MG TABLET PO SCH (21:00)
[2020-12-07 06:49] LABS: Hematocrit (blood only) 41.4 % (42-52); Hemoglobin 14.4 g/dL (14.0-18.0); Mean Corpuscular Hemoglobin 33.2 pg (25-34); Mean Corpuscular Hgb Conc 34.8 g/dL (32-36); Mean Corpuscular Volume 95.4 fL (80-100); Mean Platelet Volume 9.1 fL (7.4-10.4); Platelet Count 256 K/uL (130-400); RDW Coefficient of Variation 13.8 % (11.5-14.5); RDW Standard Deviation 48.5 fL (36.4-46.3); Red Blood Count 4.34 M/uL (4.7-6.1); White Blood Count 5.94 K/uL (4.8-10.8)
[2020-12-07 07:19] LABS: BUN Creatinine Ratio 10.9 (10-20); Calcium 8.8 mg/dl (8.5-10.1); Creatinine Clr Calc Pharmacy 67.9 ml/min; Est GFR (African American) 87.7; Est GFR (Non-African American) 75.7; Potassium 4.1 mmol/L (3.5-5.1)
[2020-12-07] MEDS: TICAGRELOR 90 MG TAB PO SCH (07:25)
[2020-12-07] MEDS: PANTOprazole 40 MG TAB PO SCH (07:25)
[2020-12-07] MEDS ORDERED: ASPIRIN 81 MG ECTAB PO SCH (09:00)
[2020-12-07] MEDS ORDERED: MAGNESIUM OXIDE 400 MG TAB PO SCH (09:00)
[2020-12-07] MEDS ORDERED: EZETIMIBE 10 MG TABLET PO SCH (09:00)
[2020-12-07] MEDS ORDERED: METOPROLOL SUCC 25MG EXT REL TAB PO SCH (09:00)
[2020-12-07] MEDS ORDERED: ISOSORBIDE MONO EXTENDED REL 60 MG TABCR PO SCH (09:00)
[2020-12-07] MEDS ORDERED: ROSUVASTATIN CALCIUM 20 MG TAB PO SCH (09:00)
[2020-12-07] MEDS ORDERED: PANTOprazole 40 MG TAB PO SCH (09:00)
[2020-12-07] MEDS ORDERED: SERTRALINE HCL 50 MG TABLET PO SCH (09:00)
--- NOTE | 2020-12-07 09:27 | Electrocardiogram Report ---
Test Reason : Blood Pressure : / mmHG Vent. Rate : 053 BPM Atrial Rate : 053 BPM P-R Int : 130 ms QRS Dur : 088 ms QT Int : 392 ms P-R-T Axes : 062 042 026 degrees QTc Int : 367 ms Sinus bradycardia Incomplete right bundle branch block Peaked T waves(consider ischemia,hyperkalemia,etc.) Abnormal ECG When compared with ECG of 06-DEC-2020 09:02, T wave amplitude has increased in Anterior leads Confirmed by Paul Livingston ([id number]) on 12/07/2020 9:26:38 AM Referred By: REFERRED SELF Confirmed By:Paul Livingston
--- NOTE | 2020-12-07 11:17 | Cardiology Progress Note ---
Date of Service December 07, 2020 Assessment & Plan (1) Chest pain: Patient describes initial onset of recurrent chest discomfort at home while watching television. He was not eating anything unusually. 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 He subsequently presented to the emergency department after hours of discomfort and has had negative troponin levels x 4. EKG without acute changes. Echocardiogram reveals inferior, inferolateral wall motion abnormality with preserved LVEF, consistent with his previous STEMI event that took place in July 2020. He feels nitroglycerin is administered in the emergency room did not palliate his symptoms, but his symptoms resolved abruptly after receiving treatment with a GI cocktail. He now feels great, and he is eager to go for a walk in the hallway, and for discharge. I had reviewed the images of his cardiac catheterization which took place on 08/08/2020 with complex PCI of a bifurcating circumflex left posterior lateral branch lesion. A residual 60% mid LAD lesion was noted that was felt to not be hemodynamically significant by FFR evaluation at that time. I discussed options with the patient such as ongoing medication therapy and discharge, remaining in the hospital for a nuclear stress test which we can perform on Wednesday, or proceeding with cardiac catheterization, perhaps at a tertiary center given the complex nature of his PCI. At present, he feels reassured by his negative troponin levels and by the relief of his discomfort with GI cocktail. I would speculate that if he has a problem with the recent intervention site from 4 months ago, that he would have more profound ongoing symptoms and troponin elevation, and EKG changes and all of these are absent. He has been adherent to aspirin and Brilinta therapy. He is already on Protonix 40 mg daily, and famotidine 40 mg at bedtime. I will discuss his acid suppression therapy with the hospitalist to see if there is room to intensify this at all. Otherwise, as long as patient feels well ambulating the hallway, I think it is reasonable to proceed with discharge on his prior to hospital cardiac medication regimen. i will request outpatient follow up visit for him in 1-3 weeks. Admission and Anticipated Discharge Date Admission Date: December 06, 2020 Subjective Patient seen in follow-up of chest discomfort, with history of complex coronary heart disease, past myocardial infarction. Patient is feeling well. Telemetry reveals sinus bradycardia in the 50s at rest. He notes no additional chest discomfort. Review of Systems Review of Systems: All systems reviewed & are unremarkable except as noted in HPI & below Physical Exam Physical Exam: Temp Pulse Resp BP Pulse Ox 36.6 C 57 L 20 97/49 L 95 12/07/20 10:54 12/07/20 10:54 12/07/20 10:54 12/07/20 10:54 12/07/20 10:54 Constitutional: WD/WN, vitals as above Respiratory: normal respiratory effort, lungs clear to auscultation Cardiovascular: RRR, no murmur, no edema Gastrointestinal (Abdomen): normal bowel sounds, soft, nontender, no hepatosplenomegaly Neurologic: PERRL, EOMI, accommodation nl, no face palsy, no dysarthria Results & Data ([facility]) Vital Signs (Past 12 Hours) Vital Signs Temp Pulse Pulse Resp BP Pulse Ox 12/07/20 10:54 36.6 C 57 L 20 97/49 L 95 12/07/20 08:00 57 L 12/07/20 07:30 76 18 111/74 96 12/07/20 04:02 36.7 C 65 18 112/75 94 12/07/20 00:00 36.3 C L 65 16 118/82 97 Laboratory Results Cardiac Enzymes 12/06/20 12/06/20 12/06/20 Range/Units 11:49 14:47 20:50 Troponin I 0.021 < 0.015 < 0.015 (0-0.045) ng/ml CBC 12/07/20 Range/Units 06:13 WBC 5.94 (4.8-10.8) K/uL RBC 4.34 L (4.7-6.1) M/uL Hgb 14.4 (14.0-18.0) g/dL Hct 41.4 L (42-52) % Plt Count 256 (130-400) K/uL Comprehensive Metabolic Panel 12/07/20 Range/Units 06:13 Sodium 139 (136-145) mmol/L Potassium 4.1 (3.5-5.1) mmol/L Chloride 109 H (98-107) mmol/L Carbon Dioxide 24 (21-32) mmol/L BUN 12 (7-18) mg/dl Creatinine 1.12 (0.6-1.4) mg/dl Glucose 100 H (70-99) mg/dl Calcium 8.8 (8.5-10.1) mg/dl Intake and Output 12/06/20 12/07/20 12/07/20 22:59 06:59 14:59 Intake Total 300 / 500 200 / 500 Balance 300 / 500 200 / 500 Intake: Oral 300 / 500 200 / 500 Other: # Unmeasured Voids 2 2 Weight 61.7 kg Weight Measurement Method Standing Scale Diagnostic Findings EKG performed today 12/07/2020 and reviewed independently revealed sinus bradycardia 53 bpm, incomplete right bundle branch block, otherwise normal EKG., With exception of peaked T waves.This is relatively unchanged compared to previous tracings dating back to 2019. (1) Chest pain Chest pain type: unspecified Qualified Code(s): R07.9 - Chest pain, unspecified
--- NOTE | 2020-12-07 13:01 | Hospitalist Progress Note ---
Date of Service delayed entry date of service noted below December 07, 2020 Assessment & Plan (1) Chest pain: (2) CAD (coronary artery disease): per admitting service notes: -Patient presenting from home with reports of persistent substernal chest pressure since last evening -History of CAD, 2018-RCA stent x2, 07/2020-STEMI s/p PCI to left circumflex with 2 MELLY -Patient given GI cocktail with complete relief of symptoms Protonix increased to 40mg BID Discussed with GI recommend outpatient EGD Acute Coronary Syndrome ruled out Dr. Tamez- [employer] consulted Troponin negative EKG no signs of acute ischemia Echocardiogram reveals inferior, inferolateral wall motion abnormality with preserved LVEF, consistent with his previous STEMI event that took place in July 2020. recommend to continue medical management ff up as outpatient (3) GERD (gastroesophageal reflux disease): EGD from April 2020 did not show short segment Casanova's esophagus Likely the cause for his epigastric pain Protonix increased to 40mg po daily counseled patient on dietary and lifestyle modification Discussed with the GI and we will have EGD as an outpatient (4) DVT prophylaxis: -SCDs Disposition d/c home ff up with GI for EGD plan of care discussed with patient in detail and at length all questions answered he is understanding, agreeable, comfortable with the plan of care Admission and Anticipated Discharge Date Admission Date: December 06, 2020 Subjective ff up for atypical chest pain seen resting in bed, comfortable, in good spirits states he feels much better overall no recurrence of symptoms no chest pain, dyspnea, palpitations, dizziness no nausea/vomiting, abdominal pain no other symptoms states he is ready and would like to be discharged Review of Systems Review of Systems: All systems reviewed & are unremarkable except as noted in Subjective Physical Exam Physical Exam: General- oriented x 3, not in distress, speaks in sentences with no effort or accessory muscle use Head- atraumatic Eyes- PERRL, EOMI, anicteric ENT- oropharynx clear Neck- supple, no JVD, no adenopathy, no thyromegaly; carotids +2/2, no bruits appreciated Lungs- clear to auscultation bilaterally, no rales/wheezes Heart- normal rate, regular rhythm; no murmur, no gallop, no rub appreciated Abdomen- normal bowel sounds, nondistended, soft, nontender, no masses or hepatosplenomegaly Extremities- no pretibial edema, no calf tenderness; peripheral pulses intact Neuro- alert, oriented x 3; CN 2-12 grossly intact; motor 5/5 bilaterally;sensation 100% on all extremities; no other gross focal neurologic deficits Skin- warm & dry Results & Data Results & Data ([facility]) Vital Signs (Past 12 Hours) Vital Signs Temp Pulse Pulse Resp BP Pulse Ox 12/07/20 10:54 36.6 C 57 L 20 97/49 L 95 12/07/20 08:00 57 L 12/07/20 07:30 76 18 111/74 96 12/07/20 04:02 36.7 C 65 18 112/75 94 all noted and reviewed including below (1) Chest pain Chest pain type: unspecified Qualified Code(s): R07.9 - Chest pain, unspecified
--- NOTE | 2020-12-11 13:57 | Discharge Summary ---
Date of Service December 11, 2020 Admission HPI Per Admitting Provider 50-year-old male with PMH CAD (s/p RCA stent x 2 in 2018, STEMI 07/2020 s/p PCI to LCx with V. fib arrest requiring defibrillation), GERD, dyslipidemia, anxiety, and other problems listed below who presents the ED for evaluation of chest pain. Patient reports that last evening around 7 PM, he developed a substernal chest pressure while sitting on his couch. Patient rates the pain 8/10. Reports that he went to work around 11 PM and the pain continued. He took 3 sublingual nitroglycerin without relief. Reports associated shortness of breath, nausea, and diaphoresis. Patient remained at work until 1 AM, due to the chest discomfort he returned home. Patient reports the chest discomfort persisted throughout the night. He then presented to the ED for further evaluation. Patient denies palpitations. Reports some intermittent lightheadedness and dizziness overnight however no syncopal event. Denies any other recent illnesses, fevers, chills. No abdominal pain, vomiting, diarrhea. No urinary symptoms. In the ED, initial troponin is negative, EKG does not show any acute ST changes. Patient is hemodynamically stable. Patient received sublingual nitroglycerin and IV morphine without any relief in his pain. Patient reports compliance with all outpatient medications. Admission Exam Per Admitting Provider Constitutional: WD/WN, vitals as above Eyes: PERRL, conjunctivae normal, anicteric sclerae ENMT: external ear and nose normal, oropharynx normal Respiratory: normal respiratory effort, lungs clear to auscultation Cardiovascular: Rate/Rhythm: regular rate and regular rhythm Vessels: normal peripheral pulses Extremities: no edema Gastrointestinal (Abdomen): normal bowel sounds, soft, nontender, no hep atosplenomegaly Musculoskeletal: no cyanosis or clubbing, extremities motor strength 5/5 Skin: no rashes, warm and dry Neurologic: PERRL, EOMI, accommodation nl, no face palsy, no dysarthria Psychiatric: A+Ox3, euthymic affect Principal Diagnosis Atypical Chest Pain likely GI etiology Discharge Exam General- oriented x 3, not in distress, speaks in sentences with no effort or accessory muscle use Head- atraumatic Eyes- PERRL, EOMI, anicteric ENT- oropharynx clear Neck- supple, no JVD, no adenopathy, no thyromegaly; carotids +2/2, no bruits appreciated Lungs- clear to auscultation bilaterally, no rales/wheezes Heart- normal rate, regular rhythm; no murmur, no gallop, no rub appreciated Abdomen- normal bowel sounds, nondistended, soft, nontender, no masses or hepatosplenomegaly Extremities- no pretibial edema, no calf tenderness; peripheral pulses intact Neuro- alert, oriented x 3; CN 2-12 grossly intact; motor 5/5 bilaterally;sensation 100% on all extremities; no other gross focal neurologic deficits Skin- warm & dry Discharge Data Allergies Allergy/AdvReac Type Severity Reaction Status Date / Time No Known Allergies Allergy Verified 12/06/20 10:12 Consultations 12/06/20 10:27 ED Decision to Admit Stat 12/06/20 12:08 Consult Cardiology Routine Hospital Course (1) Chest pain: (2) CAD (coronary artery disease): per admitting service notes: -Patient presenting from home with reports of persistent substernal chest pressure since last evening -History of CAD, 2018-RCA stent x2, 07/2020-STEMI s/p PCI to left circumflex with 2 MELLY -Patient given GI cocktail with complete relief of symptoms Protonix increased to 40mg BID Discussed with GI recommend outpatient EGD Acute Coronary Syndrome ruled out Dr. Tamez- [employer]er consulted Troponin negative EKG no signs of acute ischemia Echocardiogram reveals inferior, inferolateral wall motion abnormality with preserved LVEF, consistent with his previous STEMI event that took place in July 2020. recommend to continue medical management ff up as outpatient (3) GERD (gastroesophageal reflux disease): EGD from April 2020 did not show short segment Casanova's esophagus Likely the cause for his epigastric pain Protonix increased to 40mg po daily counseled patient on dietary and lifestyle modification Discussed with the GI and we will have EGD as an outpatient (4) DVT prophylaxis: -SCDs Disposition d/c home ff up with GI for EGD plan of care discussed with patient in detail and at length all questions answered he is understanding, agreeable, comfortable with the plan of care Total Time Total Time Spent Total Time Spent (In Minutes): > 30 minutes Discharge Plan Discharge Items Patient Disposition: Home - Self-Care Reason For Visit: CHEST PAIN Discharge Diagnosis: ATYPICAL CHEST PAIN Activity: Resume your previous activity Activity Comment: GRADUALLY TOLERATED Exercise/Sports: Gradually increase as tolerated Non-emergency contact: Primary Care Provider Call non-emergency contact if: you have any medication questions, your symptoms worsen, your pain is not controlled, your pain is worsening, your pain is unusual for you, your pain is concerning for you and you have a fever Follow-up/Referrals: Wade Bragg MD [Primary Care Provider] - 12/16/20 9:40 am Diet: Heart Healthy Addtl Attending Provider Instructions: INCREASE PROTONIX TO TWICE A DAY. ALWAYS TAKE AT LEAST 1 HOUR BEFORE BREAKFAST AND DINNER. AVOID CARBONATED AND CAFFEINATED BEVERAGES, ACIDIC FOOD AND DRINKS. ALWAYS EAT 3 REGULAR MEALS PER DAY. DRINK PLENTY OF WATER. DO NOT TAKE MEDICATIONS UNDER THE CLASS NSAIDS: IBUPROFEN, NAPROXEN, ETC. ALWAYS TAKE ASPIRIN WITH FULL STOMACH. CALL PRIMARY CARE PHYSICIAN OR RETURN TO THE ER IMMEDIATELY IF WITH RECURRENCE/WORSENING OF SYMPTOMS. Pending Studies at Discharge: No Stand-Alone Forms: My [facility] Taplister, Smoking Cessation Medications and DC Order Prescriptions: Continued aspirin 81 mg tablet,delayed release (DR/EC) 81 mg PO QAM RF: 0 sertraline [Zoloft] 50 mg tablet 50 mg PO QAM RF: 0 Brilinta 90 mg Tablet 90 mg PO BID 30 Days Qty: 60 RF: 3 nitroglycerin [Nitrostat] 0.4 mg tablet, sublingual 0.4 mg Sublingual UD PRN (Reason: Chest Pain) RF: 0 famotidine 40 mg tablet 40 mg PO HS RF: 0 dicyclomine 10 mg capsule 10 mg PO BID PRN (Reason: Abdominal Pain) RF: 0 ezetimibe 10 mg tablet 10 mg PO QAM RF: 0 rosuvastatin 40 mg tablet 40 mg PO QAM RF: 0 magnesium oxide 400 mg magnesium Tablet 400 mg PO QAM RF: 0 metoprolol succinate 25 mg tablet extended release 24 hr 25 mg PO QAM RF: 0 isosorbide mononitrate 60 mg tablet extended release 24 hr 60 mg PO DAILY RF: 0 Chantix Starting Month Box 0.5 mg (11)- 1 mg (42) tablets,dose pack 1 ea DIRECTED RF: 0 Changed pantoprazole 40 mg tablet,delayed release (DR/EC) 40 mg PO BID Qty: 0 RF: 0 Discharge Orders: Discharge Order (Routine); Ordered 12/07/20 Ordered By: Marco Vazquez/Other Patient Handouts: Unstable Angina Admission Data Admit Date/Time: 12/06/20 10:30 Attending Provider: Marco Álvarez Admit Provider: Fay Thayer Primary Care Provider: Wade Bragg Other Providers: Fay Thayer ; Edu Sheth Other Interventions: Discharge Summary Assessment (RN) Last Done: 12/07/20 13:05
== END 2020-12-07 13:37 | disposition home or self-care (01) ==
LOC: 2E 08:55 → ED 08:55 → SUATTDRO 10:30 → 2E 11:35

== ENCOUNTER 2020-12-31 20:59 | Inpatient (IN) ==
[2020-12-31 21:40] LABS: Basophils # (auto) 0.03 K/uL (0-0.2); Basophils % (auto) 0.3 %; Eosinophils # (auto) 0.09 K/uL (0-0.5); Hematocrit (blood only) 41.9 % (42-52); Immature Granulocytes # (auto) 0.01 K/uL (0.00-0.02); Immature Granulocytes % (auto) 0.1 %; Lymphocytes # (auto) 2.47 K/uL (1.2-3.4); Lymphocytes % (auto) 26.4 %; Mean Corpuscular Hemoglobin 33.6 pg (25-34); Mean Corpuscular Hgb Conc 35.8 g/dL (32-36); Mean Corpuscular Volume 93.9 fL (80-100); Mean Platelet Volume 9.1 fL (7.4-10.4); Monocytes # (auto) 0.54 K/uL (0.11-0.59); Monocytes % (auto) 5.8 %; Neutrophils # (auto) 6.23 K/uL (1.4-6.5); Neutrophils % (auto) 66.4 %; Platelet Count 278 K/uL (130-400); RDW Coefficient of Variation 13.7 % (11.5-14.5); Red Blood Count 4.46 M/uL (4.7-6.1); White Blood Count 9.37 K/uL (4.8-10.8)
[2020-12-31 21:52] LABS: Albumin Level 3.9 gm/dl (3.4-5.0); BUN Creatinine Ratio 9.5 (10-20); Calcium 9.1 mg/dl (8.5-10.1); Creatinine Clr Calc Pharmacy 65.5 ml/min; Est GFR (Non-African American) 72.5; Potassium 3.1 mmol/L (3.5-5.1)
[2020-12-31 21:54] LABS: Partial Thromboplastin Time 25.9 Seconds (21.0-31.0); Prothrombin Time 9.7 Seconds (9.0-12.0)
[2020-12-31 21:59] LABS: Albumin Globulin Ratio 1.2 (0.9-2); Bilirubin,Total 0.3 mg/dl (0.2-1); Globulin 3.3 gm/dl (2.5-4.0); Total Protein 7.2 gm/dl (6.4-8.2); Troponin I 22.7 ng/ml (0-0.045)
[2020-12-31] MEDS ORDERED: HEPARIN SODIUM/DEXTROSE 25,000 UNITS/500 ML BAG IV SCH (23:45)
[2020-12-31] MEDS ORDERED: Heparin IV Adult Wt-Based Low-Dose WITH Bolus Protocol STA (23:45)
[2020-12-31] MEDS ORDERED: HEPARIN SOD (PORCINE) 1000 UNIT/ML ONE (23:53)
[2021-01-01 00:55] LABS: Influenza A virus by PCR Negative (Neg); Influenza B virus by PCR Negative (Neg); RSV by PCR Negative (Neg); SARS CoV2 RNA(COVID-19) InHosp NEGATIVE (Negative)
--- NOTE | 2021-01-01 01:44 | Emergency Department Note ---
History of Present Illness General Chief complaint: Tachycardia Stated complaint: POSSIBLE HEART ATTACK Time Seen by Provider: 12/31/20 21:30 History of Present Illness Provider complaint: Chest pain and syncope; elevated troponin Onset (ago): day(s) 2 Location: chest Radiation: non-radiation Current Pain Intensity: 0 Associated symptoms: + chest pain, + headaches and + syncope; no cough, no fever/chills and no shortness of breath 50-year-old male presents emergency department for elevated troponin. 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 Figuerao. Patient did report having chest pain and syncopal episode 2 days ago. He had outpatient blood work done and Dr. Figueroa called him to tell him that his troponin was elevated and that the patient should be admitted to the hospital. Patient is currently reporting no chest pain at this time. Patient does report a mild headache. Home Medications Medication Instructions Recorded Confirmed Type aspirin 81 mg PO QAM 10/06/18 12/31/20 History sertraline [Zoloft] 50 mg PO QAM 10/06/18 12/31/20 History nitroglycerin [Nitrostat] 0.4 mg SUBLINGUAL UD PRN 10/07/18 12/31/20 History Brilinta 90 mg PO BID 30 Days #60 tab 08/11/20 12/31/20 Rx Chantix Starting Month Box 1 ea DIRECTED 12/06/20 12/31/20 History dicyclomine 10 mg PO BID PRN 12/06/20 12/31/20 History ezetimibe 10 mg PO QAM 12/06/20 12/31/20 History famotidine 40 mg PO HS 12/06/20 12/31/20 History isosorbide mononitrate 60 mg PO DAILY 12/06/20 12/31/20 History magnesium oxide 400 mg PO QAM 12/06/20 12/31/20 History metoprolol succinate 25 mg PO QAM 12/06/20 12/31/20 History rosuvastatin 40 mg PO QAM 12/06/20 12/31/20 History pantoprazole 40 mg PO BID #0 tab 12/07/20 12/31/20 Rx Allergies Allergy/AdvReac Type Severity Reaction Status Date / Time No Known Allergies Allergy Verified 12/31/20 23:57 Past Med/Surg History Medical History CAD (coronary artery disease) 2018-RCA stent x 2 07/2020-STEMI, s/p PCI to left circumflex with 2 MELLY. Post procedure complicated by V. fib arrest requiring defibrillation. Depression RADHA (generalized anxiety disorder) GERD (gastroesophageal reflux disease) HLD (hyperlipidemia) Pancreatitis Splenic infarct Tobacco abuse Surgical History History of vasectomy Family History Other Diabetes Stroke Social History Smoking Status: Current every day smoker Tobacco Type: Cigarettes Years Smoked: 31; Cigarettes Per Day: 2; Second Hand Exposure: No; Hx Alcohol Use: No Hx Substance Use: No Preferred Language: Latvian Communication Ability: Effective Vice President Of Business Development Required: No Beliefs That Will Affect Care: None marital status: Single Current Living Situation: Alone current occupational status: employed Feels Safe at Home: Yes Assistive Devices: None Review of Systems A total of 10 systems reviewed and were otherwise negative Physical Exam Vital Signs Vital Signs - 24 hr 12/31/20 21:06 12/31/20 21:12 12/31/20 21:29 Temperature 36.4 C L Temperature Source Oral Pulse Rate 68 Pulse Rate [Apical] 58 L Pulse Rate from SpO2 Sensor 70 Respiratory Rate 24 Respiratory Effort / Characteristics Non-Labored Respiratory Depth Normal Blood Pressure 113/93 Blood Pressure [Right Arm] 113/93 Blood Pressure Mean 99 Blood Pressure Mean [Right Arm] 99 Pulse Oximetry 97 97 Oxygen Delivery Method Room Air Room Air Sepsis Recent Fever Within 48 Hours No Sepsis New/Unexplained Change in Mental Status N/A Sepsis Action Taken by Nursing No Action Required 12/31/20 21:30 12/31/20 21:40 12/31/20 21:50 Temperature Temperature Source Pulse Rate 55 L 55 L 53 L Pulse Rate [Apical] Pulse Rate from SpO2 Sensor 55 L 55 L 53 L Respiratory Rate 20 20 24 Respiratory Effort / Characteristics Respiratory Depth Blood Pressure 107/71 Blood Pressure [Right Arm] Blood Pressure Mean 83 Blood Pressure Mean [Right Arm] Pulse Oximetry 97 97 96 Oxygen Delivery Method Sepsis Recent Fever Within 48 Hours Sepsis New/Unexplained Change in Mental Status Sepsis Action Taken by Nursing 12/31/20 22:00 12/31/20 22:01 12/31/20 22:10 Temperature Temperature Source Pulse Rate 54 L 55 L 53 L Pulse Rate [Apical] Pulse Rate from SpO2 Sensor 54 L 54 L 53 L Respiratory Rate 24 25 H 25 H Respiratory Effort / Characteristics Respiratory Depth Blood Pressure 104/69 Blood Pressure [Right Arm] Blood Pressure Mean 80 Blood Pressure Mean [Right Arm] Pulse Oximetry 95 96 96 Oxygen Delivery Method Sepsis Recent Fever Within 48 Hours Sepsis New/Unexplained Change in Mental Status Sepsis Action Taken by Nursing 12/31/20 22:20 12/31/20 22:30 12/31/20 22:31 Temperature Temperature Source Pulse Rate 51 L 52 L 53 L Pulse Rate [Apical] Pulse Rate from SpO2 Sensor 52 L 52 L 53 L Respiratory Rate 25 H 24 21 Respiratory Effort / Characteristics Respiratory Depth Blood Pressure 108/72 Blood Pressure [Right Arm] Blood Pressure Mean 84 Blood Pressure Mean [Right Arm] Pulse Oximetry 97 95 97 Oxygen Delivery Method Sepsis Recent Fever Within 48 Hours Sepsis New/Unexplained Change in Mental Status Sepsis Action Taken by Nursing 12/31/20 23:32 01/01/21 00:00 01/01/21 00:30 Temperature Temperature Source Pulse Rate 48 L 55 L 52 L Pulse Rate [Apical] Pulse Rate from SpO2 Sensor 48 L 57 L 52 L Respiratory Rate 23 25 H 24 Respiratory Effort / Characteristics Respiratory Depth Blood Pressure 105/63 100/67 100/65 Blood Pressure [Right Arm] Blood Pressure Mean 77 78 76 Blood Pressure Mean [Right Arm] Pulse Oximetry 98 98 95 Oxygen Delivery Method Room Air Room Air Room Air Sepsis Recent Fever Within 48 Hours Sepsis New/Unexplained Change in Mental Status Sepsis Action Taken by Nursing 01/01/21 01:00 01/01/21 01:30 Temperature Temperature Source Pulse Rate 49 L 50 L Pulse Rate [Apical] Pulse Rate from SpO2 Sensor 70 50 L Respiratory Rate 24 22 Respiratory Effort / Characteristics Respiratory Depth Blood Pressure 100/65 96/59 L Blood Pressure [Right Arm] Blood Pressure Mean 76 71 Blood Pressure Mean [Right Arm] Pulse Oximetry 95 96 Oxygen Delivery Method Room Air Sepsis Recent Fever Within 48 Hours Sepsis New/Unexplained Change in Mental Status Sepsis Action Taken by Nursing Physical Exam GENERAL: He is oriented to person, place, and time. He appears well-developed and well-nourished. He does not appear distressed. HENT: Exam performed. - Head: Normocephalic and atraumatic. - Right Ear: External ear normal. No mastoid tenderness. - Left Ear: External ear normal. No mastoid tenderness. - Mouth/Throat: The oropharynx is clear and moist. No trismus in the jaw. No dental abscesses or uvula swelling. No oropharyngeal exudate or tonsillar abscesses. EYES: Conjunctivae and EOM are normal. Pupils are equal, round, and reactive to light. Right eye exhibits no discharge. Left eye exhibits no discharge. No scleral icterus. NECK: Normal range of motion. Neck supple. No JVD present. No spinous process tenderness present. No carotid bruit present. No rigidity. No tracheal deviation and normal range of motion present. No Brudzinski's sign and no Kernig's sign noted. CV: Normal rate, regular rhythm, normal heart sounds and intact distal pulses. There is no peripheral edema. Palpable radial pulses bue. PULM/CHEST: Effort normal and breath sounds normal. No respiratory distress. No stridor. He has no wheezes. He has no rales. - Chest Wall: He exhibits no tenderness. ABD: The abdomen is soft. Bowel sounds are normal. He has no distension. No mass is present. There is no tenderness. There is no rebound, no guarding, no Patterson's sign and no tenderness at McBurney's point. Rovsig negative. MUSC/SKEL: Normal range of motion. There is no peripheral edema, tenderness or deformity. LYMPH: No cervical adenopathy. NEURO: He is alert and oriented to person, place, and time. He has normal strength. No cranial nerve deficit or sensory deficit. Coordination and gait normal. GCS eye subscore is 4. GCS verbal subscore is 5. GCS motor subscore is 6. Cerebellar tests wnl. SKIN: Skin is warm and dry. He is not diaphoretic. PSYCH: He has a normal mood and affect. Behavior is normal. Judgment and thought content normal. Course Course 2129: The patient was evaluated in room B8. A complete history and physical exam was performed Cardiac monitoring: An order was placed for continuous cardiac monitoring. The monitor shows a rate of [address] Figueroa spoke with ED physician prior to the patient's arrival and informed the patient about his pending arrival and is elevated outpatient troponin and requested that the patient be admitted to the medicine service and started on heparin drip. Given the patient was reporting headache, will conduct CT of the head prior to starting heparin. Patient is currently reporting no chest pain. 2347: Vital signs stable. Imaging shows no ICH. Labs show a troponin of 22.7. Patient reports no chest pain during his entire emergency department stay. Serial EKG showed no ST elevation. Patient will be admitted to the hospital service. [facility]. Potassium 3.1, will be replaced in the emergency department. Dr. Singh will be notified and patient will be started on heparin. Administered Medications Heparin Sodium/Dextrose (Heparin Sodium/Dextrose) 25,000 units in 500 mls @ 15 mls/hr IV .Q24H [facility]; Protocol Stop: 01/30/21 23:44 Last Admin: 01/01/21 00:01 Dose: 750 units/hr, 15 mls/hr Documented by: [id number] Cosigned by: [id number] Discontinued Medications Heparin Sodium (Porcine) (Heparin Sod (Porcine) 1000 Unit/Ml 10 Ml Vial) Confirm Administered Dose 10,000 units .ROUTE .[facility] Stop: 12/31/20 23:54 Last Admin: 01/01/21 00:02 Dose: 4,000 units Documented by: [id number] Cosigned by: [id number] Heparin Sodium/Dextrose (Heparin Iv Low Dose With Bolus) 1 ea N/A NOW [facility]; Protocol Stop: 12/31/20 23:46 Last Admin: 01/01/21 00:02 Dose: Not Given Documented by: [id number] Critical Care Time Critical Care Time: Yes Total Critical Care Time: 51 I have personally spent greater than 51 minutes of critical care time in the direct management of this patient. This includes bedside care, interpretation of diagnostic studies, and testing, discussion with consultants, patient, and family members, and other required patient management activities. This 51 minutes is in excess of all separately billable procedures. Medical Decision Making Laboratory Data Result diagrams: 12/31/20 21:20 12/31/20 21:20 Lab Results 12/31/20 12/31/20 12/31/20 Range/Units 21:20 21:20 21:20 WBC 9.37 (4.8-10.8) K/uL RBC 4.46 L (4.7-6.1) M/uL Hgb 15.0 (14.0-18.0) g/dL Hct 41.9 L (42-52) % MCV 93.9 (80-100) fL MCH 33.6 (25-34) pg MCHC 35.8 (32-36) g/dL RDW Std Deviation 47.0 H (36.4-46.3) fL RDW Coeff of Mckinley 13.7 (11.5-14.5) % Plt Count 278 (130-400) K/uL MPV 9.1 (7.4-10.4) fL Immature Gran % (Auto) 0.1 % Neut % (Auto) 66.4 % Lymph % (Auto) 26.4 % [place] % (Auto) 5.8 % Eos % (Auto) 1.0 % Baso % (Auto) 0.3 % Neut # (Auto) 6.23 (1.4-6.5) K/uL Lymph # (Auto) 2.47 (1.2-3.4) K/uL [place] # (Auto) 0.54 (0.11-0.59) K/uL Eos # (Auto) 0.09 (0-0.5) K/uL Baso # (Auto) 0.03 (0-0.2) K/uL Immature Gran # (Auto) 0.01 (0.00-0.02) K/uL PT 9.7 (9.0-12.0) Seconds INR 1.0 (0.9-1.1) APTT 25.9 (21.0-31.0) Seconds PTT Ratio 1.0 Sodium 138 (136-145) mmol/L Potassium 3.1 L (3.5-5.1) mmol/L Chloride 109 H (98-107) mmol/L Carbon Dioxide 23 (21-32) mmol/L Anion Gap 6.0 (3-11) BUN 11 (7-18) mg/dl Creatinine 1.16 (0.6-1.4) mg/dl Est Cr Clr Drug Dosing 65.5 ml/min Est GFR ( Amer) 84.0 Est GFR (Non-Af Amer) 72.5 BUN/Creatinine Ratio 9.5 L (10-20) Glucose 113 H (70-99) mg/dl Calcium 9.1 (8.5-10.1) mg/dl Total Bilirubin 0.3 (0.2-1) mg/dl AST 102 H (15-37) U/L ALT 25 (12-78) U/L Alkaline Phosphatase 75 (45-117) U/L Troponin I 22.700 H* (0-0.045) ng/ml Total Protein 7.2 (6.4-8.2) gm/dl Albumin 3.9 (3.4-5.0) gm/dl Globulin 3.3 (2.5-4.0) gm/dl Albumin/Globulin Ratio 1.2 (0.9-2) COVID-19 Eval Order SARS-CoV-2 (PCR) (Negative) Influenza Type A (PCR) (Neg) Influenza Type B (PCR) (Neg) RSV (RT-PCR) (Neg) 01/01/21 01/01/21 Range/Units 00:05 00:05 WBC (4.8-10.8) K/uL RBC (4.7-6.1) M/uL Hgb (14.0-18.0) g/dL Hct (42-52) % MCV (80-100) fL MCH (25-34) pg MCHC (32-36) g/dL RDW Std Deviation (36.4-46.3) fL RDW Coeff of Mckinley (11.5-14.5) % Plt Count (130-400) K/uL MPV (7.4-10.4) fL Immature Gran % (Auto) % Neut % (Auto) % Lymph % (Auto) % [place] % (Auto) % Eos % (Auto) % Baso % (Auto) % Neut # (Auto) (1.4-6.5) K/uL Lymph # (Auto) (1.2-3.4) K/uL [place] # (Auto) (0.11-0.59) K/uL Eos # (Auto) (0-0.5) K/uL Baso # (Auto) (0-0.2) K/uL Immature Gran # (Auto) (0.00-0.02) K/uL PT (9.0-12.0) Seconds INR (0.9-1.1) APTT (21.0-31.0) Seconds PTT Ratio Sodium (136-145) mmol/L Potassium (3.5-5.1) mmol/L Chloride (98-107) mmol/L Carbon Dioxide (21-32) mmol/L Anion Gap (3-11) BUN (7-18) mg/dl Creatinine (0.6-1.4) mg/dl Est Cr Clr Drug Dosing ml/min Est GFR ( Amer) Est GFR (Non-Af Amer) BUN/Creatinine Ratio (10-20) Glucose (70-99) mg/dl Calcium (8.5-10.1) mg/dl Total Bilirubin (0.2-1) mg/dl AST (15-37) U/L ALT (12-78) U/L Alkaline Phosphatase (45-117) U/L Troponin I (0-0.045) ng/ml Total Protein (6.4-8.2) gm/dl Albumin (3.4-5.0) gm/dl Globulin (2.5-4.0) gm/dl Albumin/Globulin Ratio (0.9-2) COVID-19 Eval Order CovFluRsv at [facility] SARS-CoV-2 (PCR) NEGATIVE (Negative) Influenza Type A (PCR) Negative (Neg) Influenza Type B (PCR) Negative (Neg) RSV (RT-PCR) Negative (Neg) Imaging Data My Impression: Chest x-ray negative. Airway clear. No pneumothorax. No consolidation. No cardiomegaly or cephalization.. No free air under the diaphragm. No fractures of the skeletal structures.. No significant change from the chest x-ray done on December 06, 2020. Radiologist's Impression: Preliminary Findings Only See Final Report For Complete Findings CT HEAD: The paranasal sinuses and mastoid air cells are normally aerated. There is no skull fracture or scalp hematoma. There is a normal gyral pattern of the brain. There is no mass lesion or midline shift. The zavala-white matter differentiation is maintained. The ventricles and CSF spaces are normal. There is no evidence of acute large vessel infarct or intracranial hemorrhage. Radiologist: Catarino Steve MD Study ready at 23:19 and initial results transmitted at 23:43 ECG Data Additional Comments: EKG #1 at 2103: Sinus rhythm with rate of 63. ME QRS and QTc intervals within normal limits. No ST elevation or ST depression. EKG #2 at 2324: Sinus rhythm with rate of 45. ME QRS and QTc intervals are within normal limits. No ST elevation or ST depression. [facility] Narrative 2130: The patient was evaluated in room B8. A complete history and physical exam was performed Cardiac monitoring: An order was placed for continuous cardiac monitoring. The monitor shows a rate of [address] Figueroa spoke with ED physician prior to the patient's arrival and informed the patient about his pending arrival and is elevated outpatient troponin and requested that the patient be admitted to the medicine service and started on heparin drip. Given the patient was reporting headache, will conduct CT of the head prior to starting heparin. Patient is currently reporting no chest pain. 2347: Vital signs stable. Imaging shows no ICH. Labs show a troponin of 22.7. Patient reports no chest pain during his entire emergency department stay. Serial EKG showed no ST elevation. Patient will be admitted to the hospital service. [facility] hospitalist team has been notified. Potassium 3.1, will be replaced in the emergency department. Dr. Singh will be notified and patient will be started on heparin. Impression & Plan Non-ST elevation [place] (NSTEMI) Discharge Plan Visit Data Chief Complaint: Tachycardia Stated Complaint: POSSIBLE HEART ATTACK ED Provider: Roney Prasad Discharge Problem: Non-ST elevation MN (NSTEMI) Patient Disposition: Admitted As Inpatient Forms Stand Alone Forms: [employer] Prescriptions Prescriptions: No Action aspirin 81 mg tablet,delayed release (DR/EC) 81 mg PO QAM RF: 0 sertraline [Zoloft] 50 mg tablet 50 mg PO QAM RF: 0 Brilinta 90 mg Tablet 90 mg PO BID 30 Days Qty: 60 RF: 3 nitroglycerin [Nitrostat] 0.4 mg tablet, sublingual 0.4 mg Sublingual UD PRN (Reason: Chest Pain) RF: 0 famotidine 40 mg tablet 40 mg PO HS RF: 0 dicyclomine 10 mg capsule 10 mg PO BID PRN (Reason: Abdominal Pain) RF: 0 ezetimibe 10 mg tablet 10 mg PO QAM RF: 0 rosuvastatin 40 mg tablet 40 mg PO QAM RF: 0 magnesium oxide 400 mg magnesium Tablet 400 mg PO QAM RF: 0 metoprolol succinate 25 mg tablet extended release 24 hr 25 mg PO QAM RF: 0 isosorbide mononitrate 60 mg tablet extended release 24 hr 60 mg PO DAILY RF: 0 Chantix Starting Month Box 0.5 mg (11)- 1 mg (42) tablets,dose pack 1 ea DIRECTED RF: 0 pantoprazole 40 mg tablet,delayed release (DR/EC) 40 mg PO BID Qty: 0 RF: 0 Referrals Referrals: Wade Bragg MD [Primary Care Provider] -
[2021-01-01] MEDS ORDERED: POTASSIUM CHLORIDE 10 MEQ TABCR PO STA (01:45)
[2021-01-01] MEDS ORDERED: POLYETHYLENE (MIRALAX) 17 GM PACK PO PRN (02:19)
[2021-01-01] MEDS ORDERED: ONDANSETRON INJ 2 MG/ML 2 ML VIAL IV PRN (02:19)
[2021-01-01] MEDS ORDERED: DICYCLOMINE HCL 10 MG CAP PO PRN (02:19)
[2021-01-01] MEDS ORDERED: MoRPHine SULFATE 2 MG/ML CARP IV PRN (02:19)
[2021-01-01] MEDS ORDERED: NITROGLYCERIN SL 0.4 MG/TAB TAB SL PRN ×2 (02:19)
--- NOTE | 2021-01-01 02:33 | History and Physical Report ---
DATE OF ADMISSION: 01/01/2021 CHIEF COMPLAINT: Syncope, non-ST elevated myocardial infarction. HISTORY OF PRESENT ILLNESS: This 50-year-old male with past medical history significant for hyperlipidemia, history of Casanova's esophagus, GERD, tobacco use disorder, generalized anxiety disorder, history of acute pancreatitis, history of complex TN with history of of non-ST elevated TN, status post RCA stent x2 in 2017, ST elevated TN in July 2020, status post PCI to left circumflex with vfib arrest requiring defibrillation. The patient was recently in the hospital in first week of December. At that time, chest pain thought to be from GI, recommended outpatient EGD. Currently, comes with syncope. On december 30 night the patient was sitting on the chair and watching TV in the evening when suddenly felt sweating, dizzy. He let himself on the floor and passed out for a few seconds and confused for a few seconds afterwards. There was no seizure-like activity, no biting of tongue, no bowel or bladder incontinence. After that, he felt nauseous and he felt like moving his bowels. Then that night, he felt okay and on , he called his cardiology office and went to see the financial analyst. In the parking place he felt some chest discomfort but resolved with rest. His EKG in the office, was okay and labs were drawn and there was plan for 7 days of Zio monitor and carotid duplex for syncope and plan for nuclear stress test, but the troponin came back very high and was advised to come to the ER. Currently, patient is asymptomatic. Has some mild headache, no blurred vision, no earache, no runny nose, no sore throat, no cough. Currently, no chest pain, no shortness of breath. Currently, no nausea, no abdominal pain. Normal bowel and bladder movements. No swelling in the legs. Otherwise, can climb steps and walk okay before this episode. In the ER, his EKG was okay. CT of the head was done and as per the ER it was okay and his troponin I came back 22.7, ER started on IV heparin. Plan for cardiac catheterization in a.m. Hemodynamics are stable. ALLERGIES: No known drug allergies. PAST MEDICAL HISTORY: As mentioned above. PAST SURGICAL HISTORY: Colonoscopy, EGDs, EGD with endoscopic ultrasound, vasectomy, cardiac catheterization and status post stent placement. MEDICATIONS: The patient is on aspirin 81 mg p.o. a.m., Brilinta 90 mg p.o. b.i.d., Chantix as directed, dicyclomine 10 mg p.o. b.i.d. p.r.n., ezetimibe 10 mg p.o. a.m., famotidine 40 mg p.o. at bedtime, Imdur 60 mg p.o. daily, magnesium oxide 400 mg p.o. a.m., metoprolol succinate 25 mg p.o. a.m., nitroglycerin 0.4 mg sublingual p.r.n., Protonix 40 mg p.o. b.i.d., pravastatin 40 mg p.o. a.m., Zoloft 50 mg p.o. a.m. FAMILY HISTORY: Significant for mother had diabetes, stroke. Father has hypertension. Maternal grandmother has mental disorder. SOCIAL HISTORY: Lives alone. Smoked cigarettes. Currently, no alcohol use, no drug use. REVIEW OF SYMPTOMS: As per HPI. Rest of review of systems negative. PHYSICAL EXAMINATION: GENERAL: The patient is moderate build, not in acute distress. VITAL SIGNS: Temperature 36.4, pulse in the 50s and high 40s, respiratory rate 24, blood pressure 100/65, oxygen 95% on room air. HEENT: Pupils equal, round, reactive to light. Oral mucosa moist. NECK: No masses. Supple. CARDIOVASCULAR: S1, S2 heard. Bradycardia. No murmur. No gallop. RESPIRATORY SYSTEM: Normal AP diameter. No accessory muscle use. No wheezing, no crackles. ABDOMEN: Soft,. Bowel sounds present, nontender. No distention. CENTRAL NERVOUS SYSTEM: Cranial nerves II-XII grossly intact. Nonfocal. EXTREMITIES: No edema, no erythema. LABORATORY DATA: WBC is 9.3, hemoglobin 15, hematocrit 41.9, platelets 278. PT 10.7, INR 1, APTT 25.9. Sodium 138, potassium 3.1, chloride 109, bicarbonate 23, BUN 11, creatinine 1.1, serum glucose 113, calcium 9.1, total bilirubin 0.3, AST 102, ALT 25, alkaline phosphatase 74. Troponin I 22.7. SARS-CoV-2 PCR negative. Influenza A and B PCR negative, RSV PCR negative. IMAGING: Chest x-ray, no acute findings. EKG: Sinus bradycardia with PACs at a rate of 45, no significant change was found. ASSESSMENT AND PLAN: This 50-year-old male presents with syncope and found to have non-ST elevation myocardial infarction. 1. Non-ST elevated myocardial infarction with troponin of 22.7. EKG, no significant change from previous. Elderly Caregiver sent the patient to the hospital after finding elevated troponin as outpatient, went to cardiology office for syncope. History of complex cardiac history. After CT of the head, ER started on IV heparin which will be continued. Continue his home medication of aspirin, Brilinta, Toprol-XL, Imdur and statin. Closely monitor in the tele floor. N.p.o., started on gentle fluids in anticipation of cardiac catheterization in a.m. Cardiology consult. Follow the echocardiogram and serial enzymes and bed rest for now. 2. History of coronary artery disease, stent to RCA, PCI to the left circumflex. Continue his home medication of aspirin, Brilinta, statin, beta shay and Imdur. Cardiology consult. 3. Hyperlipidemia. Continue atorvastatin and Zetia. 4. GERD and Casanova's esophagus. Continue Protonix and famotidine. 5. Depression. Continue Zoloft. 6. Hyperlipidemia. Continue statin and ezetimibe. 7. Hypertension. Continue Imdur, Toprol-XL. We will monitor his blood pressure. 8. Deep venous thrombosis prophylaxis, on IV heparin. DISPOSITION: Closely monitor in the tele floor. Level 1 full code. Expect to discharge home and follow with family doctor and cardiology. Social service to help with discharge planning. DAWN
[2021-01-01] MEDS: SODIUM CHLORIDE 0.9% 1000ML 1,000 ML IV SCH ×3 (03:17→21:44)
[2021-01-01 06:12] LABS: Partial Thromboplastin Ratio 1.9
[2021-01-01 06:18] LABS: Partial Thromboplastin Time 49.3 Seconds (21.0-31.0)
--- NOTE | 2021-01-01 06:50 | XRay Report ---
XR chest 1V portable HISTORY: 50 years-old Male Chest Pain acute atypical chest pain COMPARISON: Chest radiograph 12/06/2020 TECHNIQUE: Portable AP view of the chest FINDINGS: Cardiomediastinal and hilar silhouettes are within normal limits. Mild right hemidiaphragmatic elevat ion. No pneumothorax, pleural effusion, airspace consolidation or overt pulmonary edema. Bones of the chest appear grossly intact. IMPRESSION: No acute process. ACT 112: Negative or not required by law. The above report was generated using voice recognition software. It may contain grammatical, syntax o r spelling errors. Electronically signed by: Ruy Jones M.D. 01/01/2021 6:48 AM
--- NOTE | 2021-01-01 07:05 | CT Scan Report ---
CT head/brain wo con CLINICAL HISTORY: 50 years-old Male with couch. Acute syncope with head trauma TECHNIQUE: Multiple axial CT images of the head were obtained without contrast. A dose lowering tech nique was utilized adhering to the principles of ALARA. CT DOSE: 614.27 mGy.cm COMPARISON: None. FINDINGS: No acute intracranial hemorrhage, midline shift, intracranial mass, hydrocephalus, territorial ischem ia or abnormal extra-axial collection. The calvarium is intact. The paranasal sinuses, mastoid air cells, and middle ear cavities are clear . IMPRESSION: No acute intracranial abnormality. ACT 112: Negative or not required by law. The above report was generated using voice recognition software. It may contain grammatical, syntax o r spelling errors. Electronically signed by: Ruy Jones M.D. 01/01/2021 7:03 AM
[2021-01-01 07:33] LABS: Basophils # (auto) 0.04 K/uL (0-0.2); Basophils % (auto) 0.6 %; Eosinophils # (auto) 0.09 K/uL (0-0.5); Eosinophils % (auto) 1.3 %; Hematocrit (blood only) 40.2 % (42-52); Hemoglobin 13.9 g/dL (14.0-18.0); Immature Granulocytes # (auto) 0.01 K/uL (0.00-0.02); Immature Granulocytes % (auto) 0.1 %; Lymphocytes # (auto) 2.31 K/uL (1.2-3.4); Lymphocytes % (auto) 32.9 %; Mean Corpuscular Hemoglobin 33.1 pg (25-34); Mean Corpuscular Hgb Conc 34.6 g/dL (32-36); Mean Corpuscular Volume 95.7 fL (80-100); Mean Platelet Volume 8.9 fL (7.4-10.4); Monocytes % (auto) 5.7 %; Neutrophils # (auto) 4.17 K/uL (1.4-6.5); Neutrophils % (auto) 59.4 %; Platelet Count 212 K/uL (130-400); RDW Coefficient of Variation 13.7 % (11.5-14.5); White Blood Count 7.02 K/uL (4.8-10.8)
[2021-01-01] MEDS: ASPIRIN 81 MG ECTAB PO SCH (08:15)
[2021-01-01] MEDS: TICAGRELOR 90 MG TAB PO SCH ×3 (08:15→21:43)
[2021-01-01] MEDS: ROSUVASTATIN CALCIUM 20 MG TAB PO SCH (08:15)
[2021-01-01] MEDS: ISOSORBIDE MONO EXTENDED REL 60 MG TABCR PO SCH (08:16)
[2021-01-01] MEDS: MAGNESIUM OXIDE 400 MG TAB PO SCH (08:16)
[2021-01-01] MEDS: PANTOprazole 40 MG TAB PO SCH ×2 (08:16→21:43)
[2021-01-01] MEDS: METOPROLOL SUCC 25MG EXT REL TAB PO SCH (08:17)
[2021-01-01] MEDS: EZETIMIBE 10 MG TABLET PO SCH (08:17)
[2021-01-01] MEDS: SERTRALINE HCL 50 MG TABLET PO SCH (08:18)
[2021-01-01 08:27] LABS: BUN Creatinine Ratio 8.8 (10-20); Calcium 8.9 mg/dl (8.5-10.1); Creatinine Clr Calc Pharmacy 71.7 ml/min; Est GFR (African American) 95.9; Est GFR (Non-African American) 82.7; Potassium 4.2 mmol/L (3.5-5.1)
[2021-01-01] MEDS ORDERED: HEPARIN (PORCINE) 1000 UNIT/ML 10 ML (CATH LAB USE ONLY) ONE (08:43)
[2021-01-01] MEDS ORDERED: niCARdipine HCL INJ 2.5 MG/ML 10 ML AMP ONE (08:43)
[2021-01-01] MEDS ORDERED: fentaNYL citrate 100 MCG/2 ML VIAL ONE (08:43)
[2021-01-01] MEDS ORDERED: MIDAZOLAM HCL 1 MG/ML 2ML VIAL ONE ×2 (08:43→10:21)
[2021-01-01] MEDS ORDERED: NITROGLYCERIN/D5W 100MCG/ML 20ML SYR ONE (08:44)
--- NOTE | 2021-01-01 09:07 | Pre Anesthesia Assessment ---
Date of Service January 01, 2021 Pre Sedation Assessment Vital Signs Temp Pulse Pulse Resp BP BP Pulse Ox 01/01/21 08:51 59 L 16 121/86 01/01/21 08:00 97.7 F 62 18 115/69 98 01/01/21 07:20 51 L 01/01/21 03:35 97.5 F L 52 L 18 113/72 97 01/01/21 02:28 61 01/01/21 02:00 53 L 95 H 95/69 L 01/01/21 01:55 98.2 F 56 L 18 116/74 98 01/01/21 01:30 50 L 22 96/59 L 96 01/01/21 01:00 49 L 24 100/65 95 01/01/21 00:30 52 L 24 100/65 95 01/01/21 00:00 55 L 25 H 100/67 98 12/31/20 23:32 48 L 23 105/63 98 12/31/20 22:31 53 L 21 97 12/31/20 22:30 52 L 24 108/72 95 12/31/20 22:20 51 L 25 H 97 12/31/20 22:10 53 L 25 H 96 12/31/20 22:01 55 L 25 H 96 12/31/20 22:00 54 L 24 104/69 95 12/31/20 21:50 53 L 24 96 12/31/20 21:40 55 L 20 97 12/31/20 21:30 55 L 20 107/71 97 12/31/20 21:29 97 12/31/20 21:12 97.5 F L 68 58 L 24 113/93 113/93 97 Cardiovascular RRR, no murmur, no edema Respiratory normal respiratory effort, lungs clear to auscultation Pre-Sedation Airway Assessment Smoking Status: Current every day smoker Hx Sleep Apnea: No Hx Difficult Intubation: No Short, Thick Neck: No Thyromental Distance: > or= 3.5 Finger Breadths Oral Cavity: + WNL Mallampati Class: III ASA: ASA3 NPO Status Date of Last Intake of Fluids: 12/31/20 Time of Last Intake of Fluids: 06:30 Date of Last Intake of Solid Food: 12/31/20 Time of Last Intake of Solid Foods: 10:00 Procedure Planning Contraindications for Sedation: none Current Medications Reviewed: Yes Notes The planned sedation has been discussed with the patient. Informed Consent was obtained. I have identified the patient, determined the appropriateness of sedation and have assessed the patient immediately prior to the procedure. All medicine(s) and interventions are by my order.
--- NOTE | 2021-01-01 09:25 | Cardiology Consultation ---
Date of Consultation January 01, 2021 Assessment & Plan (1) Syncope: (2) Mobitz type 2 second degree atrioventricular block: (3) Non-ST elevation [place] (NSTEMI): (4) CAD (coronary artery disease): The patient presents after you are suffering his anginal equivalent of a syncopal event. Outpatient testing showed an elevated troponin. Upon presentation emergency department against troponin level was elevated without any significant ischemic changes on EKG but transient Mobitz 2 was present which would obviously explain his syncope. He has been started on heparin along with his outpatient medical regimen. He states he has not missed any doses of his dual antiplatelet therapy. For cardiac catheterization today, patient in agreement with this plan. Further recommendations to follow. History of Present Illness Reason for Consultation: nstemi Requesting Physician: Dr. Thayer Attending Physician: Fay Thayer MD History of Present Illness It was my pleasure to see Mr. Leonard in cardiac consultation today January 01, 2021. He is a very pleasant 50-year-old gentleman who routinely follows with myself as an outpatient for his history of coronary artery disease. I received an email from him via my [facility] yesterday stating that he had a syncopal event. Nursing immediately replied he should go to the emergency department but he declined. I recommended he be seen the same day in our cardiology clinic and he was seen by Carmen. EKG was done at that time without any ischemic changes. A troponin level was drawn. The patient stated during the visit that he felt fine. I received a page from [facility] outpatient laboratory as the on-call demurrage man last p.m. with report of an elevated troponin level. I then contacted the patient and advised him to proceed directly to [facility] and he was in agreement with this. I also directed the patient be started on heparin and admitted to telemetry. Upon presentation emergency department his initial troponin level was significantly elevated but again he was symptom-free. EKG performed in the emergency department showed no ischemic changes but did show what appears to be intermittent Mobitz 2 AV block. No events overnight and no recurrences of heart block on monitor. Past medical history: 1.Coronary artery disease status post PCI to the RCA in the setting of a [id number] elevation WA. 2.Inferior STEMI/100% acute distal circumflex occlusion at bifurcation with large PLB 3. Moderate nonobstructive non-culprit coronary artery disease -50 to 60% mid LAD (unchanged from 10/2018) Widely patent RCA stents 4. Normal intracardiac filling pressure 5. Post arrest cardiogenic shock requiring norepinephrine 6. Intraprocedure rate controlled atrial fibrillation 2.Residual 60% mid-LAD stenosis with an FFR of 0.85. 3.Ongoing tobacco abuse. 4.Anxiety. Allergies Allergy/AdvReac Type Severity Reaction Status Date / Time No Known Allergies Allergy Verified 12/31/20 23:57 Home Medications Medication Instructions Recorded Confirmed Type aspirin 81 mg PO QAM 10/06/18 12/31/20 History sertraline [Zoloft] 50 mg PO QAM 10/06/18 12/31/20 History nitroglycerin [Nitrostat] 0.4 mg SUBLINGUAL UD PRN 10/07/18 12/31/20 History Brilinta 90 mg PO BID 30 Days #60 tab 08/11/20 12/31/20 Rx Chantix Starting Month Box 1 ea DIRECTED 12/06/20 12/31/20 History dicyclomine 10 mg PO BID PRN 12/06/20 12/31/20 History ezetimibe 10 mg PO QAM 12/06/20 12/31/20 History famotidine 40 mg PO HS 12/06/20 12/31/20 History isosorbide mononitrate 60 mg PO DAILY 12/06/20 12/31/20 History magnesium oxide 400 mg PO QAM 12/06/20 12/31/20 History metoprolol succinate 25 mg PO QAM 12/06/20 12/31/20 History rosuvastatin 40 mg PO QAM 12/06/20 12/31/20 History pantoprazole 40 mg PO BID #0 tab 12/07/20 12/31/20 Rx Patient History Medical History CAD (coronary artery disease) 2018-RCA stent x 2 07/2020-STEMI, s/p PCI to left circumflex with 2 MELLY. Post procedure complicated by V. fib arrest requiring defibrillation. Depression RADHA (generalized anxiety disorder) GERD (gastroesophageal reflux disease) HLD (hyperlipidemia) Pancreatitis Splenic infarct Tobacco abuse Surgical History History of vasectomy Family History Other Diabetes Stroke Social History Smoking Status: Current every day smoker Tobacco Type: Cigarettes Years Smoked: 31; Cigarettes Per Day: 2; Second Hand Exposure: No; Tobacco Cessation Education Requested by Patient: No Hx Alcohol Use: No Hx Substance Use: No Preferred Language: Albanian Communication Ability: Effective Solid Waste Manager Required: No Beliefs That Will Affect Care: None marital status: Single Current Living Situation: Alone current occupational status: employed Other Information That Helps Us Care for You: No Feels Safe at Home: Yes Safety Concerns: Feels Safe At This Time Assistive Devices: None Review of Systems Review of Systems: All systems reviewed & are unremarkable except as noted in HPI & below Physical Exam Physical Exam: General: Awake, alert and oriented x 3. No acute distress. HEENT: Normocephalic, atraumatic. Pupils equal, round and reactive to light and accommodation. Extraocular muscles are intact. Anicteric sclera. Moist mucous membranes. Neck: No JVD. No bruit. Cardiovascular: Regular. Positive S-4. Normal S-1 and S-2. No S-3. No murmurs or rubs. Pulmonary: Clear to auscultation B/L. No rales, rhonchi or wheezing Abdomen: Bowel sounds x 4, soft. No rebound, guarding or tenderness. No organomegaly. Extremities: No clubbing, cyanosis or edema. +2 pedal pulses bilaterally. Skin: Warm and dry. Results & Data ([facility]) Vital Signs (Past 12 Hours) Vital Signs Temp Pulse Pulse Resp BP BP Pulse Ox 01/01/21 08:51 59 L 16 121/86 01/01/21 08:00 36.5 C 62 18 115/69 98 01/01/21 07:20 51 L 01/01/21 03:35 36.4 C L 52 L 18 113/72 97 01/01/21 02:28 61 01/01/21 02:00 53 L 95 H 95/69 L 01/01/21 01:55 36.8 C 56 L 18 116/74 98 01/01/21 01:30 50 L 22 96/59 L 96 01/01/21 01:00 49 L 24 100/65 95 03/24/21 00:30 52 L 24 100/65 95 01/01/21 00:00 55 L 25 H 100/67 98 12/31/20 23:32 48 L 23 105/63 98 12/31/20 22:31 53 L 21 97 12/31/20 22:30 52 L 24 108/72 95 12/31/20 22:20 51 L 25 H 97 12/31/20 22:10 53 L 25 H 96 12/31/20 22:01 55 L 25 H 96 12/31/20 22:00 54 L 24 104/69 95 12/31/20 21:50 53 L 24 96 12/31/20 21:40 55 L 20 97 12/31/20 21:30 55 L 20 107/71 97 12/31/20 21:29 97
[2021-01-01] MEDS ORDERED: ATROPINE SULFATE 0.1 MG/ML 10ML SYR IV ONE (09:26)
[2021-01-01] MEDS ORDERED: EPTIFIBATIDE 2 MG/ML 10 ML VIAL (CATH LAB USE ONLY) IV ONE ×2 (10:39→10:50)
[2021-01-01] MEDS ORDERED: EPTIFIBATIDE 0.75 MG/ML 75MG VIAL (CATH LAB USE ONLY) ONE (10:52)
[2021-01-01] MEDS ORDERED: DOPamine 400MG / 250ML D5W (Cath Lab Use ONLY) ONE (11:00)
[2021-01-01] MEDS ORDERED: EPTIFIBATIDE BOLUS/DRIP IV STA (11:10)
--- NOTE | 2021-01-01 11:10 | Post Anesthesia Assessment ---
Date of Service January 01, 2021 Post Sedation Assessment Vital Signs Temp Pulse Pulse Resp BP BP Pulse Ox 01/01/21 08:51 59 L 16 121/86 01/01/21 08:00 97.7 F 62 18 115/69 98 01/01/21 07:20 51 L 01/01/21 03:35 97.5 F L 52 L 18 113/72 97 01/01/21 02:28 61 01/01/21 02:00 53 L 95 H 95/69 L 01/01/21 01:55 98.2 F 56 L 18 116/74 98 01/01/21 01:30 50 L 22 96/59 L 96 01/01/21 01:00 49 L 24 100/65 95 01/01/21 00:30 52 L 24 100/65 95 01/01/21 00:00 55 L 25 H 100/67 98 12/31/20 23:32 48 L 23 105/63 98 12/31/20 22:31 53 L 21 97 12/31/20 22:30 52 L 24 108/72 95 12/31/20 22:20 51 L 25 H 97 12/31/20 22:10 53 L 25 H 96 12/31/20 22:01 55 L 25 H 96 12/31/20 22:00 54 L 24 104/69 95 12/31/20 21:50 53 L 24 96 12/31/20 21:40 55 L 20 97 12/31/20 21:30 55 L 20 107/71 97 12/31/20 21:29 97 12/31/20 21:12 97.5 F L 68 58 L 24 113/93 113/93 97 Recovery Score Activity: Moves 4 extremities Respiration: Deep Breath/Cough Circulation: +/-20% PreAnes Value Consciousness: Fully Awake Oxygen Saturation: O2 needed for >90% Discharge Sedation Level of Care: Fast Track Phase II Post Sedation Plan On clinical assessment, the patient appears to have tolerated the sedation without complications. Patient is recovering as anticipated. Patient will continue to be monitored by nursing and may be discharged when sedation discharge criteria are met per below protocol. Upon Completions of procedure up to 15 minutes continue every 5 minute vital signs and the P.A.R. score; then discharge to a Phase I or Fast Track to Phase II per the following guidelines: * Discharge Patient to appropriate Phase II area if PAR is 8 or greater or return to pre- procedure baseline. The post - procedure orders will be as directed. * If PAR score is less than 8 or not return to pre-procedure baseline then patient will follow Phase I monitoring till PAR is reached for Phase II. The Phase I may be done in procedure room or may call to secure a Phase I area. * If naloxone or flumazenil are used for reversal, hold in Phase I for continued monitoring from when last reversal dose was given for a minimum of 60 minutes or longer pending the nurse and/or physician discretion of patient condition before discharge to Phase II. Please call the Sedation Physician to re-evaluate and complete post-note for discharge to Phase II area. Do NOT discharge from procedure sedation or Phase 1 until post- sedation evaluation note is complete by procedure /sedation MD Sedation Discharge Instructions to be given to the patient at discharge to home.
[2021-01-01] MEDS: EPTIFIBATIDE 75 MG/100 ML VIAL IV SCH (12:10)
--- NOTE | 2021-01-01 12:51 | Communication Note ---
Date of Service: January 01, 2021 Underwent complex intervention to OM1. Tolerated well. Will require 72 hour observation on tele. Cont Integrilin gtt.
--- NOTE | 2021-01-01 12:55 | Cardiac Catheterization ---
[facility] Data: [employer] Cardiac Status Clinical evaluation leading to the procedure CAD Presenation: Non STEMI Anginal Classification: CCS IV Heart Failure: No Cardiogenic Shock within 24 Hours: No Cardiac Arrest within 24 Hours: No Imaging Studies Past 6 Months: Yes Stress Studies Past 6 Months: No Diagnostic Physicians Name: Dariel Bourne MD Status: Elective Closure Device Percutaneous Entry Location: Radial Closure Device: Radial Band Recommendations: PCI without planned CABG PCI Indication: PCI for high risk Non-MATTHEW Lesion Segment Name: mid circumflex Culprit Artery: Yes Stenosis Prior to Rx (%): 100 Chronic Total Occlusion: No IVUS: No FFR: No Pre-Procedure ROBIN Flow: 0 Previously Treated Lesion: No Lesion Complexity: High/C Lesion Length (mm): 30 Thrombus Present: Yes Bifurcation Lesion: Yes Guidewire Across Lesion: Stenosis Post-Procedure (%): 0 Post-Procedure ROBIN Flow: 3 Yes Intraprocedure Events Significant Disection: No Perforation: No Cardiac Cath Procedure Full Procedure Date January 01, 2021 Pre-Procedure Diagnosis Pre-Procedure Diagnosis: Non STEMI AUC Score AUC Score: 8 Post-Procedure Diagnosis Post-Procedure Diagnosis: Severe CAD and Successful PCI Procedure(s) Performed Procedure(s) Performed: Coronary Angiography, Left Heart Cath and Drug Eluting Stent Undercar Specialist Dariel Bourne MD Alcoholism Worker(s) Melchor Estimated Blood Loss Estimated Blood Loss: 15 Medication(s) Medication(s): Fentanyl, Heparin, Integrilin, Lidocaine 1%, Nicardipine, Nitroglycerin and Versed Medication(s): Ticagrelor Summary of Findings Indication: High risk NSTEMI Access: 6 Fr left radial artery Catheters: JL4, JR4, EBU 3.75, telescope support catheter Findings: LM -Short, luminal irregularities LAD -medium caliber, 40% ostial, 60% mid segment, 40% distal, luminal regularities wraps around apex. Circumflex -large caliber, 30% mid segment disease, 100% acute mid occlusion just after takeoff of large trifurcating OM2. Previously stented left PLB partially fills via left to left collaterals. RCA -dominant, proximal to mid stent widely patent, mid segment luminal irregularities, distal RCA stent patent. PDA without significant disease. Faint right to left collaterals to distalmost circumflex. LVEDP - 3 -- PCI -- Antithrombotic therapy: Heparin, Integrilin, ticagrelor Procedure: Left main cannulated with EBU 3.75 guide With the aid of a telescope support catheter and Rx balloon for additional support eventually able to cross whisper wire across distal circumflex occlusion into prior stent Distal circumflex into left PLB dilated with 3.0 and 2.5 balloons Debt Recovery Officer 50 wire navigated into circumflex and into distal circumflex, terminal PLB Distal circumflex into terminal PLB stent dilated with 2.0 balloon 2.5 x 12 mm Xience drug-eluting stent overlapped with distal aspect of stent in large left PLB 2.5 x 18 mm Xience drug-eluting stent overlapped with proximal aspect of stent extending from mid circumflex into large left PLB Stents postdilated with 2.75 balloon Post stent dilation still with residual stenosis after distal most stents and only ROBIN I flow IC/IV Integrilin administered A third drug-eluting stent (2.25 x 12 Xience). Placed overlapping distalmost aspect of stent in left PLB. Stent postdilated with 3.0 NC to high atmospheres IC vasodilators administered for spasm Post procedure ROBIN 3 flow through stents and mid circumflex into left PLB. ROBIN II-III flow and stent extending into distal circumflex to small terminal PLB Arterial Closure: TR band Summary: 1. Successful PCI of mid circumflex into left PLB with 3 Xience drug-eluting stents (2.5 x 18 overlapping proximal aspect of prior stent, 2.5 x 12, 2.25 x 12 extending from distal aspect of prior stent in the left PLB; postdilated with 3.0 NC -- now at total of 5 stents at bifurcation with LPLB/distal circumflex). -Angioplasty into prior distal circumflex stent with 2.0 balloon Recommendations: To PCU for continued monitoring Continue Integrilin for 4 hours Continue dual-antiplatelet therapy with aspirin, ticagrelor for least 1 year. Recommend extended DAPT after that time. Consult cardiac Rehab Hemodynamics Rest Ao:: Final Ao: LV: 95/3 Recommendations Recommendations: PCI without planned CABG Specimens Specimens: None Radiation Exposure (mGy) 1946 Contrast (mls) 130 Fluids (cc crystalloids) Fluids (cc crystalloids): 1000 Drains Drains: none Anesthesia moderate [id number] Procedural Complication(s) None Disposition PCU I attest to the content of the Intraoperative Record and any orders documented therein. Any exceptions are noted below. [facility] Card Cath Procedure Codes Cardiac Catheterization Procedure 1: Cardiovascular Cath Procedures: 58365 Coronaries and LHC (+/-LV) Moderate Sedation Procedure 1: Sedation/Anesthesia: 22030 Mod Sedation by the same physician;Init15 Min Child Age 5 & Up Procedure 2: Sedation/Anesthesia: 46209 Mod Sedation by the same physician; Ea [id number] Minutes Stenting Procedure 1: Cardiovascular Stent Procedures: 78990 Perc transluminal revascularization of acute sub/total occl, aMI PG Care Time/CCT Total # of Minutes Spent Total Time Spent with Patient: Total time spent is greater than 50% in coordination of care (as documented) at patient's floor/unit and/or counseling patient:
--- NOTE | 2021-01-01 12:55 | Electrocardiogram Report ---
Test Reason : Blood Pressure : / mmHG Vent. Rate : 063 BPM Atrial Rate : 063 BPM P-R Int : 122 ms QRS Dur : 094 ms QT Int : 368 ms P-R-T Axes : 064 018 033 degrees QTc Int : 376 ms Sinus rhythm with Premature atrial complexes Incomplete right bundle branch block Inferior infarct , age undetermined Abnormal ECG When compared with ECG of 07-DEC-2020 07:37, Premature atrial complexes are now Present ST elevation now present in Inferior leads Confirmed by Dariel Parada ([id number]) on 01/01/2021 12:55:26 PM Referred By: Taras Figueroa Confirmed By:Johnny Parada
--- NOTE | 2021-01-01 13:34 | Electrocardiogram Report ---
Test Reason : Blood Pressure : / mmHG Vent. Rate : 045 BPM Atrial Rate : 045 BPM P-R Int : 124 ms QRS Dur : 086 ms QT Int : 392 ms P-R-T Axes : 060 024 040 degrees QTc Int : 339 ms Poor data quality, interpretation may be adversely affected Sinus bradycardia with Premature atrial complexes Possible Inferior infarct (cited on or before 31-DEC-2020) Abnormal ECG When compared with ECG of 31-DEC-2020 21:03, (unconfirmed) No significant change was found Confirmed by Dariel Parada ([id number]) on 01/01/2021 1:34:09 PM Referred By: Taras Figueroa Confirmed By:Johnny Parada
--- NOTE | 2021-01-01 13:48 | Electrocardiogram Report ---
Test Reason : Blood Pressure : / mmHG Vent. Rate : 049 BPM Atrial Rate : 049 BPM P-R Int : 118 ms QRS Dur : 088 ms QT Int : 398 ms P-R-T Axes : 064 -06 030 degrees QTc Int : 359 ms Sinus bradycardia Inferior-posterior infarct (cited on or before 31-DEC-2020) Abnormal ECG When compared with ECG of 31-DEC-2020 23:24, (unconfirmed) Premature atrial complexes are no longer Present Confirmed by Dariel Parada ([id number]) on 01/01/2021 1:48:17 PM Referred By: Taras Figueroa Confirmed By:Johnny Parada
--- NOTE | 2021-01-01 13:56 | Electrocardiogram Report ---
Test Reason : Blood Pressure : / mmHG Vent. Rate : 052 BPM Atrial Rate : 052 BPM P-R Int : 124 ms QRS Dur : 084 ms QT Int : 406 ms P-R-T Axes : 060 -11 022 degrees QTc Int : 377 ms Sinus bradycardia Inferior-posterior infarct (cited on or before 31-DEC-2020) Abnormal ECG When compared with ECG of 01-JAN-2021 04:33, (unconfirmed) No significant change was found Confirmed by Dariel Parada ([id number] on 01/01/2021 1:55:56 PM Referred By: Taras Figueroa Confirmed By:Johnny Parada
[2021-01-01] MEDS: ACETAMINOPHEN 325 MG TAB PO PRN (14:10)
--- NOTE | 2021-01-01 15:19 | Hospitalist Progress Note ---
Date of Service January 01, 2021 Assessment & Plan (1) Syncope: Admitted with syncopal episodes with history of CAD Noted to have Mobitz type II second-degree atrioventricular block and also subsequent non-ST elevation AL No more syncope since admission (2) Non-ST elevation AL (NSTEMI): Syncope with chest pain Troponin is highly elevated at 22.7 on admission and that went down to 16.1: Cardiac cath Did not have any ST elevation EKG Appreciate cardiology input and recommendation Status post cardiac cath: And placement of cardiac stents as below_ Successful PCI of mid circumflex into left PLB with 3 Xience drug-eluting stents (2.5 x 18 overlapping proximal aspect of prior stent, 2.5 x 12, 2.25 x 12 extending from distal aspect of prior stent in the left PLB; postdilated with 3.0 NC -- now at total of 5 stents at bifurcation with LPLB/distal circumflex). -Angioplasty into prior distal circumflex stent with 2.0 balloon Remains stable following the procedure We will continue current medications; will need dual antiplatelet therapy probably for a long time (3) Mobitz type 2 second degree atrioventricular block: As above (4) CAD (coronary artery disease): History of CAD and and prior cardiac stents: 2018-RCA stent x 2 07/2020-STEMI, s/p PCI to left circumflex with 2 MELLY. Post procedure complicated by V. fib arrest requiring defibrillation. (5) Depression: Continue current medications (6) GERD (gastroesophageal reflux disease): Continue PPI DVT prophylaxis As per cardiology Admission and Anticipated Discharge Date Admission Date: January 01, 2021 Subjective 01/01/2021 The patient was seen and examined in telemetry unit He is a status post cardiac cath and coronary stent placement as below Denies any chest pain or palpitation following the procedure Review of Systems Review of Systems: All systems reviewed and are unremarkable except as noted below Cardiovascular: no chest pain Physical Exam Physical Exam: Lying in bed comfortably Constitutional: average body habitus; not ill appearing Eyes: PERRL, conjunctivae normal, anicteric sclerae ENMT: external ear and nose normal, oropharynx normal Neck: trachea midline, no thyromegaly Respiratory: no respiratory distress Auscultation: lungs clear to auscultation bilaterally Cardiovascular: Rate/Rhythm: regular rate and regular rhythm Heart Sounds: no murmur Extremities: no edema Gastrointestinal (Abdomen): Inspection/Auscultation: normal bowel sounds; abdomen not distended Percussion/Palpation: abdomen soft; abdomen nontender Musculoskeletal: No acute arthritis in any joint Neurologic: Alert, awake and oriented x3. No focal sensory and motor deficit appreciated Psychiatric: A+Ox3, euthymic affect Results & Data Results & Data ([facility]) Vital Signs (Past 12 Hours) Vital Signs Temp Pulse Pulse Resp BP Pulse Ox 01/01/21 13:56 59 L 18 106/60 98 01/01/21 13:11 58 L 17 106/68 98 01/01/21 12:56 36.6 C 62 17 107/69 99 01/01/21 12:26 66 18 114/73 98 01/01/21 12:11 36.7 C 62 18 107/69 98 01/01/21 12:00 36.8 C 62 18 122/60 98 01/01/21 11:57 74 01/01/21 11:56 36.7 C 69 18 106/69 98 01/01/21 11:30 63 16 92/61 L 98 01/01/21 11:15 51 L 16 90/60 L 98 01/01/21 08:51 59 L 16 121/86 01/01/21 08:00 36.5 C 62 18 115/69 98 01/01/21 07:20 51 L 01/01/21 03:35 36.4 C L 52 L 18 113/72 97 Laboratory Results Short CBC 12/31/20 01/01/21 Range/Units 21:20 07:22 WBC 9.37 7.02 (4.8-10.8) K/uL Hgb 15.0 13.9 L (14.0-18.0) g/dL Hct 41.9 L 40.2 L (42-52) % Plt Count 278 212 (130-400) K/uL BMP 12/31/20 01/01/21 21:20 07:22 Sodium 138 139 Potassium 3.1 L 4.2 D Chloride 109 H 110 H Carbon Dioxide 23 25 BUN 11 9 Creatinine 1.16 1.04 Glucose 113 H 97 Calcium 9.1 8.9 Cardiac Enzymes 12/31/20 01/01/21 01/01/21 Range/Units 21:20 05:37 12:02 Troponin I 22.700 H* 18.500 H* 16.100 H* (0-0.045) ng/ml Liver Function 12/31/20 Range/Units 21:20 Total Bilirubin 0.3 (0.2-1) mg/dl AST 102 H (15-37) U/L ALT 25 (12-78) U/L Alkaline Phosphatase 75 (45-117) U/L Albumin 3.9 (3.4-5.0) gm/dl Medications Administered Current Inpatient Medications Acetaminophen (Acetaminophen 325 Mg Tab) 650 mg PO Q4H PRN PRN Reason: Pain or Fever Stop: 01/31/21 02:18 Last Admin: 01/01/21 14:10 Dose: 650 mg Documented by: Aspirin (Aspirin 81 Mg Ectab) 81 mg PO [facility] Stop: 01/31/21 08:59 Last Admin: 01/01/21 08:15 Dose: 81 mg Documented by: Dicyclomine HCl (Dicyclomine Hcl 10 Mg Cap) 10 mg PO BID PRN PRN Reason: Abdominal Pain Stop: 01/31/21 02:18 Ezetimibe (Ezetimibe 10 Mg Tablet) 10 mg PO [facility] Stop: 01/31/21 08:59 Last Admin: 01/01/21 08:17 Dose: 10 mg Documented by: Famotidine (Famotidine 40 Mg Tablet) 40 mg PO [facility] Stop: 01/31/21 20:59 Sodium Chloride (Nss 1000ml) 1,000 mls @ 125 mls/hr IV .Q8H [facility] Stop: 01/31/21 02:18 Last Admin: 01/01/21 12:25 Dose: 80 mls/hr Documented by: Eptifibatide (Integrilin) 75 mg in 100 mls @ 9.648 mls/hr IV .[id number] [facility]; Protocol Stop: 01/02/21 15:00 Last Admin: 01/01/21 12:10 Dose: 2 mcg/kg/min, 9.6 mls/hr Documented by: Isosorbide Mononitrate (Isosorbide Sharp Extended Rel 60 Mg Tabcr) 60 mg PO DAILY [facility] Stop: 01/31/21 08:59 Last Admin: 01/01/21 08:16 Dose: 60 mg Documented by: Magnesium Oxide (Magnesium Oxide 400 Mg Tab) 400 mg PO [facility] Stop: 01/31/21 08:59 Last Admin: 01/01/21 08:16 Dose: 400 mg Documented by: Metoprolol Succinate (Metoprolol Succ 25mg Ext Rel Tab) 25 mg PO QAM [facility] Stop: 01/31/21 08:59 Last Admin: 01/01/21 08:17 Dose: 25 mg Documented by: Miscellaneous (Eptifibatide (Integrilin) Infusion Stop Order) 1 ea N/A ONE ONE Stop: 01/02/21 15:01 Morphine Sulfate (Morphine Sulfate 2 Mg/Ml Carp) 2 mg IV Q30M PRN PRN Reason: Chest Pain Stop: 01/15/21 02:18 Nitroglycerin (Nitroglycerin Sl 0.4 Mg/Tab Tab) 0.4 mg SL UD PRN PRN Reason: Chest Pain Stop: 01/31/21 02:18 Ondansetron HCl (Ondansetron Inj 2 Mg/Ml 2 Ml Vial) 4 mg IV Q6H PRN PRN Reason: Nausea Stop: 01/31/21 02:18 Pantoprazole Sodium (Pantoprazole 40 Mg Tab) 40 mg PO BID [facility] Stop: 01/31/21 08:59 Last Admin: 01/01/21 08:16 Dose: 40 mg Documented by: Polyethylene Glycol (Polyethylene (Miralax) 17 Gm Pack) 17 gm PO DAILY PRN PRN Reason: Constipation Stop: 01/31/21 02:18 Rosuvastatin Calcium (Rosuvastatin Calcium 20 Mg Tab) [facility] [place] Stop: 01/31/21 08:59 Last Admin: 01/01/21 08:15 Dose: 40 mg Documented by: Sertraline HCl (Sertraline Hcl 50 Mg Tablet) 50 mg PO [facility] Stop: 01/31/21 08:59 Last Admin: 01/01/21 08:18 Dose: 50 mg Documented by: Ticagrelor (Ticagrelor 90 Mg Tab) 90 mg PO BID [facility] Stop: 01/31/21 08:59 Last Admin: 01/01/21 11:28 Dose: 90 mg Documented by:
[2021-01-01] MEDS ORDERED: FAMOTIDINE 40 MG TABLET PO SCH (21:00)
[2021-01-02] MEDS: SODIUM CHLORIDE 0.9% 1000ML 1,000 ML IV SCH (05:56)
[2021-01-02] MEDS: EPTIFIBATIDE 75 MG/100 ML VIAL IV SCH (07:10)
[2021-01-02 07:56] LABS: Partial Thromboplastin Time 27.6 Seconds (21.0-31.0)
[2021-01-02] MEDS: TICAGRELOR 90 MG TAB PO SCH (08:09)
[2021-01-02] MEDS: SERTRALINE HCL 50 MG TABLET PO SCH (08:10)
[2021-01-02] MEDS: PANTOprazole 40 MG TAB PO SCH (08:10)
[2021-01-02] MEDS: MAGNESIUM OXIDE 400 MG TAB PO SCH (08:10)
[2021-01-02] MEDS: METOPROLOL SUCC 25MG EXT REL TAB PO SCH (08:11)
[2021-01-02] MEDS: ASPIRIN 81 MG ECTAB PO SCH (08:11)
[2021-01-02] MEDS: EZETIMIBE 10 MG TABLET PO SCH (08:11)
[2021-01-02] MEDS: ISOSORBIDE MONO EXTENDED REL 60 MG TABCR PO SCH (08:11)
[2021-01-02] MEDS: ROSUVASTATIN CALCIUM 20 MG TAB PO SCH (08:11)
--- NOTE | 2021-01-02 11:45 | Cardiology Progress Note ---
Date of Service January 02, 2021 Assessment & Plan (1) Syncope: (2) Mobitz type 2 second degree atrioventricular block: (3) Non-ST elevation [place] (NSTEMI): (4) CAD (coronary artery disease): The patient presents after you are suffering his anginal equivalent of a syncopal event. underwent successful, complex PCI to OM1 on 01/01/21 tolerated well no arrhythmias overnight anxious for discharge ok to d/c to home from cardiac will arrange for event monitor as an outpatient upon discharge. d/c to home on current medical regimen absolute smoking cessation, pt counseled as an outpatient will consider PCSK9 inhibitor to prevent further atheroscleortic events, if able to afford colchicine has recently been studied to prevent recurrent nstemi, results not impressive, will hold off Admission and Anticipated Discharge Date Admission Date: January 01, 2021 Subjective Pt seen and examined, chart reviewed. States that he feels great and is anxious for discharge. Denies cp, sob, palpitations, lightheadedness or dizziness. Tele reviewed: nsr without arrhythmia. Review of Systems Review of Systems: All systems reviewed & are unremarkable except as noted in HPI & below Physical Exam Physical Exam: General: Awake, alert and oriented x 3. No acute distress. HEENT: Normocephalic, atraumatic. Pupils equal, round and reactive to light and accommodation. Extraocular muscles are intact. Anicteric sclera. Moist mucous membranes. Neck: No JVD. No bruit. Cardiovascular: Regular. Positive S-4. Normal S-1 and S-2. No S-3. No murmurs or rubs. Pulmonary: Clear to auscultation B/L. No rales, rhonchi or wheezing Abdomen: Bowel sounds x 4, soft. No rebound, guarding or tenderness. No organomegaly. Extremities: No clubbing, cyanosis or edema. +2 pedal pulses bilaterally. Skin: Warm and dry. Results & Data ([facility]) Vital Signs (Past 12 Hours) Vital Signs Temp Pulse Pulse Pulse Resp BP Pulse Ox 01/02/21 11:36 36.7 C 59 L 17 124/76 94 01/02/21 07:33 36.8 C 66 18 125/78 96 01/02/21 07:21 65 01/02/21 03:40 37.1 C 68 18 114/65 94 01/02/21 00:02 37.0 C 61 18 113/72 95
[2021-01-02] MEDS: ACETAMINOPHEN 325 MG TAB PO PRN (11:54)
--- NOTE | 2021-01-02 12:49 | Hospitalist Progress Note ---
Date of Service January 02, 2021 Assessment & Plan (1) Syncope: Admitted with syncopal episodes with history of CAD Noted to have Mobitz type II second-degree atrioventricular block and also subsequent non-ST elevation CT No more syncope since admission Remains stable (2) Non-ST elevation CT (NSTEMI): Syncope with chest pain Troponin is highly elevated at 22.7 on admission and that went down to 16.1: Cardiac cath Did not have any ST elevation EKG Appreciate cardiology input and recommendation Status post cardiac cath: And placement of cardiac stents as below_ Successful PCI of mid circumflex into left PLB with 3 Xience drug-eluting stents (2.5 x 18 overlapping proximal aspect of prior stent, 2.5 x 12, 2.25 x 12 extending from distal aspect of prior stent in the left PLB; postdilated with 3.0 NC -- now at total of 5 stents at bifurcation with LPLB/distal circumflex). -Angioplasty into prior distal circumflex stent with 2.0 balloon Remains stable following the procedure We will continue current medications; will need dual antiplatelet therapy probably for a long time Discharge home this afternoon (3) Mobitz type 2 second degree atrioventricular block: As above No more intraventricular block noted (4) CAD (coronary artery disease): History of CAD and and prior cardiac stents: 2018-RCA stent x 2 07/2020-STEMI, s/p PCI to left circumflex with 2 MELLY. Post procedure complicated by V. fib arrest requiring defibrillation. Cardiac cath on 01/01/2021 with successful complex PCI to OM1. Continue with dual platelet therapy (5) Depression: Continue current medications (6) GERD (gastroesophageal reflux disease): Continue PPI DVT prophylaxis As per cardiology Admission and Anticipated Discharge Date Admission Date: January 01, 2021 Subjective 01/01/2021 The patient was seen and examined in telemetry unit He is a status post cardiac cath and coronary stent placement as below Denies any chest pain or palpitation following the procedure 01/02/2021 The patient was seen and examined in telemetry unit He is a status post cardiac cath for non-ST elevation CT and is status post stent placement in OM1 on 01/02/2020 Denies any symptoms He will be going home this afternoon Review of Systems Review of Systems: All systems reviewed and are unremarkable except as noted below Physical Exam Physical Exam: Lying in bed comfortably Constitutional: average body habitus; not ill appearing Eyes: PERRL, conjunctivae normal, anicteric sclerae ENMT: external ear and nose normal, oropharynx normal Neck: trachea midline, no thyromegaly Respiratory: no respiratory distress Auscultation: lungs clear to auscultation bilaterally Cardiovascular: Rate/Rhythm: regular rate and regular rhythm Heart Sounds: no murmur Extremities: no edema Gastrointestinal (Abdomen): Inspection/Auscultation: normal bowel sounds; abdomen not distended Percussion/Palpation: abdomen soft; abdomen nontender Musculoskeletal: No acute arthritis in any joint Psychiatric: A+Ox3, euthymic affect Results & Data Results & Data ([facility]) Vital Signs (Past 12 Hours) Vital Signs Temp Pulse Pulse Pulse Resp BP Pulse Ox 01/02/21 11:36 36.7 C 59 L 17 124/76 94 01/02/21 07:33 36.8 C 66 18 125/78 96 01/02/21 07:21 65 01/02/21 03:40 37.1 C 68 18 114/65 94 Laboratory Results Cardiac Enzymes 01/01/21 Range/Units 17:12 Troponin I 12.000 H* (0-0.045) ng/ml Medications Administered Current Inpatient Medications Acetaminophen (Acetaminophen 325 Mg Tab) 650 mg PO Q4H PRN PRN Reason: Pain or Fever Stop: 01/31/21 02:18 Last Admin: 01/02/21 11:54 Dose: 650 mg Documented by: Aspirin (Aspirin 81 Mg Ectab) 81 mg PO [facility] Stop: 01/31/21 08:59 Last Admin: 01/02/21 08:11 Dose: 81 mg Documented by: Dicyclomine HCl (Dicyclomine Hcl 10 Mg Cap) 10 mg PO BID PRN PRN Reason: Abdominal Pain Stop: 01/31/21 02:18 Last Admin: 01/01/21 23:26 Dose: 10 mg Documented by: Ezetimibe (Ezetimibe 10 Mg Tablet) [facility] Stop: 01/31/21 08:59 Last Admin: 01/02/21 08:11 Dose: 10 mg Documented by: Famotidine (Famotidine 40 Mg Tablet) 40 mg PO [facility] Stop: 01/31/21 20:59 Last Admin: 01/01/21 21:43 Dose: 40 mg Documented by: Sodium Chloride (Nss 1000ml) 1,000 mls @ 125 mls/hr IV .Q8H [facility] Stop: 01/31/21 02:18 Last Admin: 01/02/21 05:56 Dose: 80 mls/hr Documented by: Isosorbide Mononitrate (Isosorbide [place] Extended Rel 60 Mg Tabcr) 60 mg PO DAILY [facility] Stop: 01/31/21 08:59 Last Admin: 01/02/21 08:11 Dose: 60 mg Documented by: Magnesium Oxide (Magnesium Oxide 400 Mg Tab) 400 mg [facility] Stop: 01/31/21 08:59 Last Admin: 01/02/21 08:10 Dose: 400 mg Documented by: Metoprolol Succinate (Metoprolol Succ 25mg Ext Rel Tab) 25 mg PO [facility] Stop: 01/31/21 08:59 Last Admin: 01/02/21 08:11 Dose: 25 mg Documented by: Morphine Sulfate (Morphine Sulfate 2 Mg/Ml Carp) 2 mg IV Q30M PRN PRN Reason: Chest Pain Stop: 01/15/21 02:18 Nitroglycerin (Nitroglycerin Sl 0.4 Mg/Tab Tab) 0.4 mg SL UD PRN PRN Reason: Chest Pain Stop: 01/31/21 02:18 Ondansetron HCl (Ondansetron Inj 2 Mg/Ml 2 Ml Vial) 4 mg IV Q6H PRN PRN Reason: Nausea Stop: 01/31/21 02:18 Pantoprazole Sodium (Pantoprazole 40 Mg Tab) 40 mg PO BID [facility] Stop: 01/31/21 08:59 Last Admin: 01/02/21 08:10 Dose: 40 mg Documented by: Polyethylene Glycol (Polyethylene (Miralax) 17 Gm Pack) 17 gm PO DAILY PRN PRN Reason: Constipation Stop: 01/31/21 02:18 Rosuvastatin Calcium (Rosuvastatin Calcium 20 Mg Tab) 40 mg PO [facility] Stop: 01/31/21 08:59 Last Admin: 01/02/21 08:11 Dose: 40 mg Documented by: Sertraline HCl (Sertraline Hcl 50 Mg Tablet) 50 mg PO [facility] Stop: 01/31/21 08:59 Last Admin: 01/02/21 08:10 Dose: 50 mg Documented by: Ticagrelor (Ticagrelor 90 Mg Tab) 90 mg PO BID [facility] Stop: 01/31/21 08:59 Last Admin: 01/02/21 08:09 Dose: 90 mg Documented by:
--- NOTE | 2021-01-02 16:41 | Electrocardiogram Report ---
Test Reason : Blood Pressure : / mmHG Vent. Rate : 059 BPM Atrial Rate : 059 BPM P-R Int : 128 ms QRS Dur : 090 ms QT Int : 372 ms P-R-T Axes : 060 017 -07 degrees QTc Int : 368 ms Sinus bradycardia with sinus arrhythmia Inferior-posterior infarct (cited on or before 31-DEC-2020) Abnormal ECG When compared with ECG of 01-JAN-2021 11:30, Serial changes of evolving Inferior-posterior infarct Present Confirmed by Dariel Parada ([id number]) on 01/02/2021 4:40:59 PM Referred By: Taras Figueroa Confirmed By:Johnny Parada
--- NOTE | 2021-01-03 09:10 | Discharge Summary ---
Date of Service January 03, 2021 Admission HPI Per Admitting Provider DICTATED BY: Rosales Singh MD DATE OF ADMISSION: 01/01/2021 CHIEF COMPLAINT: Syncope, non-ST elevated myocardial infarction. HISTORY OF PRESENT ILLNESS: This 50-year-old male with past medical history significant for hyperlipidemia, history of Casanova's esophagus, GERD, tobacco use disorder, generalized anxiety disorder, history of acute pancreatitis, history of complex FL with history of of non-ST elevated FL, status post RCA stent x2 in 2017, ST elevated FL in July 2020, status post PCI to left circumflex with vfib arrest requiring defibrillation. The patient was recently in the hospital in first week of December. At that time, chest pain thought to be from GI, recommended outpatient EGD. Currently, comes with syncope. On december 30 night the patient was sitting on the chair and watching TV in the evening when suddenly felt sweating, dizzy. He let himself on the floor and passed out for a few seconds and confused for a few seconds afterwards. There was no seizure-like activity, no biting of tongue, no bowel or bladder incontinence. After that, he felt nauseous and he felt like moving his bowels. Then that night, he felt okay and on , he called his cardiology office and went to see the interventionist. In the parking place he felt some chest discomfort but resolved with rest. His EKG in the office, was okay and labs were drawn and there was plan for 7 days of Zio monitor and carotid duplex for syncope and plan for nuclear stress test, but the troponin came back very high and was advised to come to the ER. Currently, patient is asymptomatic. Has some mild headache, no blurred vision, no earache, no runny nose, no sore throat, no cough. Currently, no chest pain, no shortness of breath. Currently, no nausea, no abdominal pain. Normal bowel and bladder movements. No swelling in the legs. Otherwise, can climb steps and walk okay before this episode. In the ER, his EKG was okay. CT of the head was done and as per the ER it was okay and his troponin I came back 22.7, ER started on IV heparin. Plan for cardiac catheterization in a.m. Hemodynamics are stable. Admission Exam Per Admitting Provider GENERAL: The patient is moderate build, not in acute distress. VITAL SIGNS: Temperature 36.4, pulse in the 50s and high 40s, respiratory rate 24, blood pressure 100/65, oxygen 95% on room air. HEENT: Pupils equal, round, reactive to light. Oral mucosa moist. NECK: No masses. Supple. CARDIOVASCULAR: S1, S2 heard. Bradycardia. No murmur. No gallop. RESPIRATORY SYSTEM: Normal AP diameter. No accessory muscle use. No wheezing, no crackles. ABDOMEN: Soft,. Bowel sounds present, nontender. No distention. CENTRAL NERVOUS SYSTEM: Cranial nerves II-XII grossly intact. Nonfocal. EXTREMITIES: No edema, no erythema. Principal Diagnosis Syncope, Mobitz type II second-degree heart block, CAD status post complex PCI to [facility] on 12/30/2020, NSTEMI, Discharge Exam Constitutional average body habitus; not ill appearing Eyes PERRL, conjunctivae normal, anicteric sclerae ENMT external ear and nose normal, oropharynx normal Neck trachea midline, no thyromegaly Respiratory no respiratory distress Auscultation: lungs clear to auscultation bilaterally Cardiovascular Rate/Rhythm: regular rate and regular rhythm Heart Sounds: no murmur Extremities: no edema Gastrointestinal (Abdomen) Inspection/Auscultation: normal bowel sounds; abdomen not distended Percussion/Palpation: abdomen soft; abdomen nontender Psychiatric A+Ox3, euthymic affect Discharge Data Allergies Allergy/AdvReac Type Severity Reaction Status Date / Time No Known Allergies Allergy Verified 12/31/20 23:57 Consultations 12/31/20 23:47 ED Decision to Admit Stat 01/01/21 08:00 Consult Cardiology Routine 01/01/21 11:15 Consult Cardiac Rehabilitation Routine Procedures Performed Operation Date: 01/01/21 08:40 Actual Procedures s Drug Eluting Stent SGl Vessel - Ilia Bourne MD s Cineradiography w/Routine Exam - Ilia Bourne MD p Cath, Left with Cors and Vent - Ilia Bourne MD Ordered Studies 12/31/20 21:39 CT head/brain wo con Urgent 01/01/21 08:43 CL Cath Imgs for PACS use only Routine Hospital Course (1) Syncope: Admitted with syncopal episodes with history of CAD Noted to have Mobitz type II second-degree atrioventricular block and also subsequent non-ST elevation FL No more syncope since admission Remains stable (2) Non-ST elevation FL (NSTEMI): Syncope with chest pain Troponin is highly elevated at 22.7 on admission and that went down to 16.1: Cardiac cath Did not have any ST elevation EKG Appreciate cardiology input and recommendation Status post cardiac cath: And placement of cardiac stents as below_ Successful PCI of mid circumflex into left PLB with 3 Xience drug-eluting stents (2.5 x 18 overlapping proximal aspect of prior stent, 2.5 x 12, 2.25 x 12 extending from distal aspect of prior stent in the left PLB; postdilated with 3.0 NC -- now at total of 5 stents at bifurcation with LPLB/distal circumflex). -Angioplasty into prior distal circumflex stent with 2.0 balloon Remains stable following the procedure We will continue current medications; will need dual antiplatelet therapy probably for a long time Discharge home this afternoon (3) Mobitz type 2 second degree atrioventricular block: As above No more intraventricular block noted (4) CAD (coronary artery disease): History of CAD and and prior cardiac stents: 2018-RCA stent x 2 07/2020-STEMI, s/p PCI to left circumflex with 2 MELLY. Post procedure complicated by V. fib arrest requiring defibrillation. Cardiac cath on 01/01/2021 with successful complex PCI to OM1. Continue with dual platelet therapy (5) Depression: Continue current medications (6) GERD (gastroesophageal reflux disease): Continue PPI DVT prophylaxis As per cardiology Total Time Total Time Spent Total Time Spent (In Minutes): 35 minutes Total Time Includes: Examination of the Patient, Discharge Planning, Medication Reconciliation and Communication With Other Providers Discharge Plan Discharge Items Patient Disposition: Home - Self-Care Reason For Visit: SYNCOPE, ELEVATED TROPONIN Discharge Diagnosis: Syncope, Mobitz type II second-degree heart block, CAD status post complex PCI to OM1 on 12/30/2020, NSTEMI, Condition on Discharge: Good Activity: Resume your previous activity Non-emergency contact: Primary Care Provider Call non-emergency contact if: you have any medication questions and your symptoms worsen Follow-up/Referrals: Wade Bragg MD [Primary Care Provider] - (Date & Time 01/07/2021 11:20 AM Provider Deep Griffin MD [facility] ) Diet: Heart Healthy Addtl Attending Provider Instructions: Please take your medications as advised Quit smoking Take your usual until seen by your PCP on 01/07/2021 Pending Studies at Discharge: No Stand-Alone Forms: My [facility], Smoking Cessation Medications and DC Order Prescriptions: Continued aspirin 81 mg tablet,delayed release (DR/EC) 81 mg PO QAM RF: 0 sertraline [Zoloft] 50 mg tablet 50 mg PO QAM RF: 0 Brilinta 90 mg Tablet 90 mg PO BID 30 Days Qty: 60 RF: 3 nitroglycerin [Nitrostat] 0.4 mg tablet, sublingual 0.4 mg Sublingual UD PRN (Reason: Chest Pain) RF: 0 famotidine 40 mg tablet 40 mg PO HS RF: 0 dicyclomine 10 mg capsule 10 mg PO BID PRN (Reason: Abdominal Pain) RF: 0 ezetimibe 10 mg tablet 10 mg PO QAM RF: 0 rosuvastatin 40 mg tablet 40 mg PO QAM RF: 0 magnesium oxide 400 mg magnesium Tablet 400 mg PO QAM RF: 0 metoprolol succinate 25 mg tablet extended release 24 hr 25 mg PO QAM RF: 0 isosorbide mononitrate 60 mg tablet extended release 24 hr 60 mg PO DAILY RF: 0 Chantix Starting Month Box 0.5 mg (11)- 1 mg (42) tablets,dose pack 1 ea DIRECTED RF: 0 pantoprazole 40 mg tablet,delayed release (DR/EC) 40 mg PO BID Qty: 0 RF: 0 Discharge Orders: Discharge Order (Routine); Ordered 01/02/21 Ordered By: Fay Thayer Admission Data Admit Date/Time: 01/01/21 00:55 Attending Provider: Fay Thayer Admit Provider: Rosales Singh Primary Care Provider: Wade Bragg Other Providers: Rosales Singh ; Taras Figueroa Other Interventions: Discharge Summary Assessment (RN) Last Done: 01/02/21 13:10
== END 2021-01-02 13:32 | disposition home or self-care (01) | DRG 247 ==
LOC: ED 20:59 → 2S 01-01 00:55

== ENCOUNTER 2021-08-20 02:09 | Inpatient (IN) ==
[2021-08-20] MEDS ORDERED: ONDANSETRON INJ 2 MG/ML 2 ML VIAL IV STA (02:24)
[2021-08-20] MEDS ORDERED: SODIUM CHLORIDE 0.9% 1000ML 1,000 ML IV SCH (02:30)
[2021-08-20] MEDS: MoRPHine SULFATE 4 MG/ML 1 ML CARP\\VIAL IV PRN ×3 (02:42→08:30)
[2021-08-20 02:49] LABS: Basophils # (auto) 0.05 K/uL (0-0.2); Basophils % (auto) 0.6 %; Eosinophils # (auto) 0.27 K/uL (0-0.5); Eosinophils % (auto) 3.3 %; Hematocrit (blood only) 42.9 % (42-52); Hemoglobin 15.1 g/dL (14.0-18.0); Immature Granulocytes # (auto) 0.01 K/uL (0.00-0.02); Immature Granulocytes % (auto) 0.1 %; Lymphocytes # (auto) 1.53 K/uL (1.2-3.4); Lymphocytes % (auto) 18.9 %; Mean Corpuscular Hemoglobin 34.2 pg (25-34); Mean Corpuscular Hgb Conc 35.2 g/dL (32-36); Mean Corpuscular Volume 97.3 fL (80-100); Monocytes # (auto) 0.48 K/uL (0.11-0.59); Monocytes % (auto) 5.9 %; Neutrophils # (auto) 5.74 K/uL (1.4-6.5); Neutrophils % (auto) 71.2 %; Platelet Count 279 K/uL (130-400); RDW Coefficient of Variation 13.6 % (11.5-14.5); RDW Standard Deviation 48.7 fL (36.4-46.3); Red Blood Count 4.41 M/uL (4.7-6.1); White Blood Count 8.08 K/uL (4.8-10.8)
[2021-08-20 03:08] LABS: Alanine Aminotransferase 15 U/L (12-78); Albumin Level 3.8 gm/dl (3.4-5.0); Aspartate Aminotransferase 15 U/L (15-37); BUN Creatinine Ratio 16.6 (10-20); Blood Urea Nitrogen 18 mg/dl (7-18); Calcium 9.1 mg/dl (8.5-10.1); Carbon Dioxide 23 mmol/L (21-32); Chloride 105 mmol/L (98-107); Creatinine Clr Calc Pharmacy 67.2 ml/min; Est GFR (African American) 90.6 ml/min; Est GFR (Non-African American) 78.2 ml/min; Glucose 97 mg/dl (70-99); Lipase 887 U/L (73-393); Potassium 4.2 mmol/L (3.5-5.1); Sodium 133 mmol/L (136-145)
[2021-08-20 03:13] LABS: Alkaline Phosphatase 76 U/L (45-117); Bilirubin,Total 0.4 mg/dl (0.2-1); Total Protein 7.8 gm/dl (6.4-8.2); Troponin I < 0.015 ng/ml (0-0.045)
[2021-08-20] MEDS ORDERED: OPTIRAY 320 100ml IV ONE (03:27)
[2021-08-20 04:26] LABS: Appearance Urine Clear (Clear); Bilirubin Urine Negative (Negative); Blood Urine Negative (Negative); Color Urine Yellow; Glucose Urine UA Negative (Negative); Ketones Urine Negative (Negative); Leukocyte Esterase Urine Negative (Negative); Nitrite Urine Negative (Negative); Protein Urine Negative (Negative); Specific Gravity Urine 1.021 (1.000-1.030); Urobilinogen Urine Negative (Negative); pH Urine 6.5 (4.5-7.5)
--- NOTE | 2021-08-20 04:26 | Emergency Department Note ---
History of Present Illness General Chief complaint: Abdominal Pain Stated complaint: ABD PAIN Time Seen by Provider: 08/20/21 02:16 History of Present Illness Maximum Pain Intensity: 6 This is a 50-year-old male presenting to the emergency department for evaluation of abdominal pain that began worsening tonight. The patient states that he has a bandlike discomfort across the middle of his abdomen. The pain is bilateral and does not radiate. The patient has had symptoms like this in the past, however his discomfort typically resolves with rest and laying down. His discomfort actually worsened tonight compared to normal. He is with some nausea but no vomiting. The patient does have a history of cardiac disease, and has had 2 heart attacks in the past year. This does not feel similar to his heart attacks. He is without any chest pain, chest tightness, or shortness of breath. He does not identify aggravating or alleviating factors. He rates his discomfort a 6/10, dull, nonradiating. Home Medications Medication Instructions Recorded Confirmed Type aspirin 81 mg tablet,delayed 81 mg PO QAM 10/06/18 08/20/21 History release sertraline 50 mg tablet (Zoloft) 50 mg PO QAM 10/06/18 08/20/21 History nitroglycerin 0.4 mg sublingual 0.4 mg SUBLINGUAL UD PRN 10/07/18 08/20/21 History tablet (Nitrostat) ticagrelor 90 mg tablet (Brilinta) 90 mg PO BID 30 Days #60 tab 08/11/20 1 Rx dicyclomine 10 mg capsule 10 mg PO BID PRN 12/06/20 08/20/21 History ezetimibe 10 mg tablet 10 mg PO QAM 12/06/20 08/20/21 History famotidine 40 mg tablet 40 mg PO HS 12/06/20 08/20/21 History isosorbide mononitrate 60 mg 60 mg PO DAILY 12/06/20 08/20/21 History tablet,extended release 24 hr magnesium oxide 400 mg PO QAM 12/06/20 08/20/21 History metoprolol succinate 25 mg 25 mg PO QAM 12/06/20 08/20/21 History tablet,extended release 24 hr rosuvastatin 40 mg tablet 40 mg PO QAM 12/06/20 08/20/21 History pantoprazole 40 mg tablet,delayed 40 mg PO QAM 08/20/21 08/20/21 History release Allergies Allergy/AdvReac Type Severity Reaction Status Date / Time No Known Allergies Allergy Verified 08/20/21 02:37 Past Med/Surg History Medical History CAD (coronary artery disease) 2018-RCA stent x 2 07/2020-STEMI, s/p PCI to left circumflex with 2 MELLY. Post procedure complicated by V. fib arrest requiring defibrillation. Depression RADHA (generalized anxiety disorder) GERD (gastroesophageal reflux disease) HLD (hyperlipidemia) Pancreatitis Splenic infarct Tobacco abuse Surgical History History of vasectomy Family History Other Diabetes Stroke Social History Smoking Status: Current every day smoker Tobacco Type: Cigarettes Years Smoked: 31; Cigarettes Per Day: 2; Second Hand Exposure: No; Hx Alcohol Use: No Hx Substance Use: No Preferred Language: Welsh Communication Ability: Effective Director Regulatory Affairs Required: No Beliefs That Will Affect Care: None marital status: Single Current Living Situation: Alone current occupational status: employed Feels Safe at Home: Yes Assistive Devices: Glasses Review of Systems A total of 10 systems reviewed and were otherwise negative Physical Exam Vital Signs Vital Signs - 24 hr 08/20/21 02:11 08/20/21 02:45 08/20/21 02:46 Temperature 36.5 C Temperature Source Temporal Artery Scan Pulse Rate 92 H 83 Pulse Rate [Finger] 83 Pulse Rate from SpO2 Sensor Respiratory Rate 18 20 20 Respiratory Effort / Characteristics Non-Labored Spontaneous Respiratory Depth Normal Normal Blood Pressure 160/104 H Blood Pressure [Left Arm] 157/87 H Blood Pressure Mean 122 Blood Pressure Mean [Left Arm] 110 Pulse Oximetry 98 97 97 Oxygen Delivery Method Room Air Room Air Room Air Sepsis New/Unexplained Change in Mental Status N/A Sepsis Action Taken by Nursing No Action Required 08/20/21 03:36 08/20/21 04:30 08/20/21 05:00 Temperature Temperature Source Pulse Rate 71 77 71 Pulse Rate [Finger] Pulse Rate from SpO2 Sensor 75 71 Respiratory Rate 18 22 20 Respiratory Effort / Characteristics Respiratory Depth Blood Pressure 138/84 143/93 H 132/89 Blood Pressure [Left Arm] Blood Pressure Mean 102 109 103 Blood Pressure Mean [Left Arm] Pulse Oximetry 97 97 96 Oxygen Delivery Method Room Air Sepsis New/Unexplained Change in Mental Status Sepsis Action Taken by Nursing 08/20/21 05:30 08/20/21 05:56 08/20/21 06:00 Temperature Temperature Source Pulse Rate 82 64 Pulse Rate [Finger] 78 Pulse Rate from SpO2 Sensor 79 Respiratory Rate 20 18 21 Respiratory Effort / Characteristics Respiratory Depth Blood Pressure 149/86 H Blood Pressure [Left Arm] 136/92 Blood Pressure Mean 107 Blood Pressure Mean [Left Arm] 106 Pulse Oximetry 96 97 97 Oxygen Delivery Method Room Air Sepsis New/Unexplained Change in Mental Status Sepsis Action Taken by Nursing VITALS: Vitals are noted on the nurse's note and reviewed by myself. Vital signs stable. GENERAL: Well-developed, well-nourished, white male, who is in n NECK: Supple without nuchal rigidity. No lymphadenopathy. No thyromegaly. Cervical spine is nontender. HEART: Regular rate and rhythm without murmurs gallops or rubs. LUNGS: Clear to auscultation bilaterally without wheezes, rales or rhonchi. No retractions or accessory muscle use. ABDOMEN: Positive normal bowel sounds x 4. Soft with some generalized tenderness across the anterior abdomen. No rebound or guarding. No distinct point tenderness. No CVA tenderness. MUSCULOSKELETAL: No muscle atrophy, erythema, or edema noted. Full range of motion in all extremities. NEURO: Patient was alert and oriented to person place and time. CN II through XII grossly intact. Course Administered Medications Lactated Ringer's (Lr) 1,000 mls @ 200 mls/hr IV .Q5H ONE Stop: 08/20/21 10:14 Last Admin: 08/20/21 05:56 Dose: 200 mls/hr Documented by: [id number] Morphine Sulfate (Morphine Sulfate 4 Mg/Ml 1 Ml Carp\Vial) 4 mg IV Q30M PRN PRN Reason: Pain Stop: 09/03/21 02:23 Last Admin: 08/20/21 04:07 Dose: 4 mg Documented by: [id number] Admin: 08/20/21 02:42 Dose: 4 mg Documented by: [id number] Discontinued Medications Sodium Chloride (Nss 1000ml) 1,000 mls @ 999 mls/hr IV .Q1H1M ALYCIA Stop: 08/20/21 03:30 Last Infusion: 08/20/21 03:44 Dose: 0 mls/hr Documented by: [id number] Admin: 08/20/21 02:42 Dose: 999 mls/hr Documented by: [id number] Ioversol (Optiray 320 100ml) 100 ml IV ONCE ONE Stop: 08/20/21 03:28 Last Admin: 08/20/21 03:28 Dose: 93 ml Documented by: [id number] Ondansetron HCl (Ondansetron Inj 2 Mg/Ml 2 Ml Vial) 4 mg IV NOW STA Stop: 08/20/21 02:25 Last Admin: 08/20/21 02:42 Dose: 4 mg Documented by: [id number] Medical Decision Making Differential Diagnosis Differential diagnosis: Etiologies such as biliary colic, cholecystitis, hepatitis, pancreatitis, cardiac disease, pancreatitis, gastritis, peptic ulcer disease, appendicitis, cystitis, diverticulitis, mesenteric ischemia, inflammatory bowel disease, ileus, bowel obstruction, testicular/adnexal torsion, aortic pathology, shingles, as well as others were considered Laboratory Data Result diagrams: 08/20/21 02:38 08/20/21 02:38 Lab Results 08/20/21 08/20/21 08/20/21 Range/Units 02:38 02:38 04:00 WBC 8.08 (4.8-10.8) K/uL RBC 4.41 L (4.7-6.1) M/uL Hgb 15.1 (14.0-18.0) g/dL Hct 42.9 (42-52) % MCV 97.3 (80-100) fL MCH 34.2 H (25-34) pg MCHC 35.2 (32-36) g/dL RDW Std Deviation 48.7 H (36.4-46.3) fL RDW Coeff of [place] 13.6 (11.5-14.5) % Plt Count 279 (130-400) K/uL MPV 9.0 (7.4-10.4) fL Immature Gran % (Auto) 0.1 % Neut % (Auto) 71.2 % Lymph % (Auto) 18.9 % [place] % (Auto) 5.9 % Eos % (Auto) 3.3 % Baso % (Auto) 0.6 % Neut # (Auto) 5.74 (1.4-6.5) K/uL Lymph # (Auto) 1.53 (1.2-3.4) K/uL [place] # (Auto) 0.48 (0.11-0.59) K/uL Eos # (Auto) 0.27 (0-0.5) K/uL Baso # (Auto) 0.05 (0-0.2) K/uL Immature Gran # (Auto) 0.01 (0.00-0.02) K/uL Sodium 133 L (136-145) mmol/L Potassium 4.2 (3.5-5.1) mmol/L Chloride 105 (98-107) mmol/L Carbon Dioxide 23 (21-32) mmol/L Anion Gap 5.0 (3-11) BUN 18 (7-18) mg/dl Creatinine 1.09 (0.6-1.4) mg/dl Est Cr Clr Drug Dosing 67.2 ml/min Est GFR ( Amer) 90.6 ml/min Est GFR (Non-Af Amer) 78.2 ml/min BUN/Creatinine Ratio 16.6 (10-20) Glucose 97 (70-99) mg/dl Calcium 9.1 (8.5-10.1) mg/dl Magnesium 2.1 (1.8-2.4) mg/dl Total Bilirubin 0.4 (0.2-1) mg/dl AST 15 (15-37) U/L ALT 15 (12-78) U/L Alkaline Phosphatase 76 (45-117) U/L Troponin I < 0.015 (0-0.045) ng/ml Total Protein 7.8 (6.4-8.2) gm/dl Albumin 3.8 (3.4-5.0) gm/dl Globulin 4.0 (2.5-4.0) gm/dl Albumin/Globulin Ratio 1.0 (0.9-2) Lipase 887 H (73-393) U/L Urine Color Yellow Urine Appearance Clear (Clear) Urine pH 6.5 (4.5-7.5) Ur Specific [place] 1.021 (1.000-1.030) Urine Protein Negative (Negative) Urine Glucose (UA) Negative (Negative) Urine Ketones Negative (Negative) Urine Blood Negative (Negative) Urine Nitrite Negative (Negative) Urine Bilirubin Negative (Negative) Urine Urobilinogen Negative (Negative) Ur Leukocyte Esterase Negative (Negative) COVID-19 Eval Order SARS-CoV-2 (PCR) (Negative) 08/20/21 08/20/21 Range/Units 05:00 05:00 WBC (4.8-10.8) K/uL RBC (4.7-6.1) M/uL Hgb (14.0-18.0) g/dL Hct (42-52) % MCV (80-100) fL MCH (25-34) pg MCHC (32-36) g/dL RDW Std Deviation (36.4-46.3) fL RDW Coeff of [place] (11.5-14.5) % Plt Count (130-400) K/uL MPV (7.4-10.4) fL Immature Gran % (Auto) % Neut % (Auto) % Lymph % (Auto) % [place] % (Auto) % Eos % (Auto) % Baso % (Auto) % Neut # (Auto) (1.4-6.5) K/uL Lymph # (Auto) (1.2-3.4) K/uL [place] # (Auto) (0.11-0.59) K/uL Eos # (Auto) (0-0.5) K/uL Baso # (Auto) (0-0.2) K/uL Immature Gran # (Auto) (0.00-0.02) K/uL Sodium (136-145) mmol/L Potassium (3.5-5.1) mmol/L Chloride (98-107) mmol/L Carbon Dioxide (21-32) mmol/L Anion Gap (3-11) BUN (7-18) mg/dl Creatinine (0.6-1.4) mg/dl Est Cr Clr Drug Dosing ml/min Est GFR ( Amer) ml/min Est GFR (Non-Af Amer) ml/min BUN/Creatinine Ratio (10-20) Glucose (70-99) mg/dl Calcium (8.5-10.1) mg/dl Magnesium (1.8-2.4) mg/dl Total Bilirubin (0.2-1) mg/dl AST (15-37) U/L ALT (12-78) U/L Alkaline Phosphatase (45-117) U/L Troponin I (0-0.045) ng/ml Total Protein (6.4-8.2) gm/dl Albumin (3.4-5.0) gm/dl Globulin (2.5-4.0) gm/dl Albumin/Globulin Ratio (0.9-2) Lipase (73-393) U/L Urine Color Urine Appearance (Clear) Urine pH (4.5-7.5) Ur Specific [place] (1.000-1.030) Urine Protein (Negative) Urine Glucose (UA) (Negative) Urine Ketones (Negative) Urine Blood (Negative) Urine Nitrite (Negative) Urine Bilirubin (Negative) Urine Urobilinogen (Negative) Ur Leukocyte Esterase (Negative) COVID-19 Eval Order Covid19 at [facility] SARS-CoV-2 (PCR) NEGATIVE (Negative) Imaging Data Radiologist's Impression: Preliminary Findings Only See Final Report For Complete Findings CT ABDOMEN & PELVIS With Contrast: Comparison is made to CT abdomen/pelvis on 03/11/2020. Fat stranding near the pancreatic head and duodenum may be secondary to acute pancreatitis and/or duodenitis. Nonspecific rounded structure with calcifications along the pancreatic head. This may be related to chronic pancreatitis, but component of neoplasm cannot be entirely excluded. Atrophy of the pancreas. Distended gallbladder with probable cholelithiasis. Further evaluation could be performed with ultrasound if clinically indicated. Small hiatal hernia. Evaluation of the stomach is limited by under distention. Small hypodensity of the liver is too small to definitively characterize. Small hypodensity in the right kidney is too small to definitively characterize. No hydronephrosis or obstructing stone. Small fat-containing bilateral inguinal hernias. Mild prominence of the bland of the sigmoid colon and descending colon may be secondary to under distention which limits evaluation. Normal appendix. No small bowel obstruction. Atherosclerotic changes of the vasculature. Mild ectasia of the abdominal aorta. No aortic aneurysm or dissection. Possible small bone islands in the pelvic bones. Tiny fat-containing umbilical hernia. Mildly prominent mesenteric lymph nodes are nonspecific. Radiologist:Juana Pascal M.D. ECG Data Attestation: I personally reviewed and interpreted this ECG as follows: Indication: abdominal pain Additional Comments: Normal sinus rhythm with sinus arrhythmia @[address] elevation Incomplete right bundle branch block Borderline ECG When compared with ECG of 02-JAN-2021 06:03, No significant change was found MDM Narrative Physical exam and history were performed. Nursing notes, EMR, and Medication List were personally reviewed. Patient appears to have abdominal pain bringing him to the emergency room this evening. The patient's discomfort is primarily a bandlike across the anterior aspect of the abdomen. He is not having chest pain, which is reassuring as he has had a fairly significant recent cardiac history. IV access was established and labs were obtained. The patient was hydrated with normal saline and given IV morphine and IV Zofran for comfort. He was sent to CT scan for further imaging. An order was placed for continuous cardiac monitoring. The monitor shows a rate of 64 with normal rhythm. The patient's blood work is as above and was reviewed. He does not have significant elevated white blood cell count, gross anemia, bandemia, or significant electrolyte imbalance. Troponin x1 is negative. Transaminases are not diagnostic. Lipase is elevated at 887. CT scan was performed and reviewed by myself and radiology as above. The patient seems to have acute pancreatitis on imaging. Clinically this would correlate with his symptoms. On reevaluation the patient feels better after hydration and pain medication. I discussed options of care with the patient, and overall he seems unlikely to do well at home. The case was discussed with the on-call [facility] hospitalist, who agreed to evaluate the patient here in the ER. Please see their dictation for further patient course, plan, and disposition. The chart was completed utilizing [employer] Speech Voice Recognition Software. Grammatical errors, random word insertions, pronoun errors, and incomplete sentences are an occasional consequence of this system due to software limitations, ambient noise, and hardware issues. Any formal questions or concerns about the content, text, or information contained within the body of this dictation should be directly addressed to the provider for clarification. . Impression & Plan Acute pancreatitis, Abdominal pain Discharge Plan Visit Data Chief Complaint: Abdominal Pain Stated Complaint: ABD PAIN ED Provider: Deep Martinez ED Midlevel Provider: Herb Reeves Discharge Problem: Acute pancreatitis, Abdominal pain Forms Stand Alone Forms: Asker Prescriptions Prescriptions: No Action aspirin 81 mg tablet,delayed release (DR/EC) 81 mg PO QAM RF: 0 sertraline [Zoloft] 50 mg tablet 50 mg PO QAM RF: 0 Brilinta 90 mg Tablet 90 mg PO BID 30 Days Qty: 60 RF: 3 nitroglycerin [Nitrostat] 0.4 mg tablet, sublingual 0.4 mg Sublingual UD PRN (Reason: Chest Pain) RF: 0 famotidine 40 mg tablet 40 mg PO HS RF: 0 dicyclomine 10 mg capsule 10 mg PO BID PRN (Reason: Abdominal Pain) RF: 0 ezetimibe 10 mg tablet 10 mg PO QAM RF: 0 rosuvastatin 40 mg tablet 40 mg PO QAM RF: 0 magnesium oxide 400 mg magnesium Tablet 400 mg PO QAM RF: 0 metoprolol succinate 25 mg tablet extended release 24 hr 25 mg PO QAM RF: 0 isosorbide mononitrate 60 mg tablet extended release 24 hr 60 mg PO DAILY RF: 0 pantoprazole 40 mg tablet,delayed release (DR/EC) 40 mg PO QAM RF: 0 Referrals Referrals: Wade Bragg MD [Primary Care Provider] -
[2021-08-20] MEDS ORDERED: LACTATED RINGER'S 1,000 ML IV ONE (05:15)
[2021-08-20 05:24] LABS: Magnesium 2.1 mg/dl (1.8-2.4)
--- NOTE | 2021-08-20 05:55 | History & Physical Report ---
Date of Service August 20, 2021 Assessment & Plan (1) Recurrent pancreatitis: Plan: Possible gallstone etiology Rule out cholecystitis given possible [place] sign on exam CAD sp stent (12/2020) HTN, stable hyperlipidemia on statin Rx Casanova's esophagus, evaluation for minimally invasive surgery for uncontrolled GERD symptoms currently on hold given recent cardiac issues anxiety/mood disorder, at baseline ongoing tobacco abuse GMF Bowel rest, analgesia IVF Gallbladder ultrasound GI consult Re: Pancreatitis Patient may benefit from Surgery evaluation during confinement. Nicotine patch as needed DVT prophylaxis. Lovenox subcu Full code Text document was generated using [employer] voice recognition software. It may contain grammatical or spelling errors. Kindly contact undersigned for clarification of any documentation item in ques tion. History of Present Illness Chief Complaint: Abdominal pain Primary Care Provider: Wade Bragg MD History obtained from patient and records. Medical history significant for CAD sp stent, HTN, hyperlipidemia, recurrent pa ncreatitis, Casanova's esophagus, anxiety/mood disorder, ongoing tobacco abuse. Last confinement December 2020 for non-STEMI and syncope secondary to Mobitz type II second-degree AV block. Subsequent angioplasty and MELLY placement. Patient admitted September 2015 for pancreatitis. Outpatient EUS October 2015 did not show CBD/gallbladder pathology. As per patient, intermittent central abdominal discomfort reminiscent of pancreatitis attack at a frequency of 3 attacks per year over the last few years. Unclear precipitants and spontaneously resolving as per patient. 3 days ago patient had achy bandlike central abdominal discomfort reminiscent of pancreatitis attack.. Discomfort different from GERD attack. Discomfort somewhat worse last night. Some nausea, no emesis. No fever, no chills. No chest pain, no S OB. No recent EtOH intake. Denies fatty food intake. Patient consulted ER for evaluation. MEDICAL HISTORY: As above. OPERATIONS: He has had a vasectomy. FAMILY HISTORY:Hypertension, stroke; no pancreatitis PERSONAL AND SOCIAL HISTORY: One-half pack daily. No chronic intake of alcoholic beverages. 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 Allergies Allergy/AdvReac Type Severity Reaction Status Date / Time No Known Allergies Allergy Verified 08/20/21 02:37 Home Medications Medication Instructions Recorded Confirmed Type aspirin 81 mg tablet,delayed 81 mg PO QAM 10/06/18 08/20/21 History release sertraline 50 mg tablet (Zoloft) 50 mg PO QAM 10/06/18 08/20/21 History nitroglycerin 0.4 mg sublingual 0.4 mg SUBLINGUAL UD PRN 10/07/18 08/20/21 History tablet (Nitrostat) ticagrelor 90 mg tablet (Brilinta) 90 mg PO BID 30 Days #60 tab 08/11/20 08/20/21 Rx dicyclomine 10 mg capsule 10 mg PO BID PRN 12/06/20 08/20/21 History ezetimibe 10 mg tablet 10 mg PO QAM 12/06/20 08/20/21 History famotidine 40 mg tablet 40 mg PO HS 12/06/20 08/20/21 History isosorbide mononitrate 60 mg 60 mg PO DAILY 12/06/20 08/20/21 History tablet,extended release 24 hr magnesium oxide 400 mg PO QAM 12/06/20 08/20/21 History metoprolol succinate 25 mg 25 mg PO QAM 12/06/20 08/20/21 History tablet,extended release 24 hr rosuvastatin 40 mg tablet 40 mg PO QAM 12/06/20 08/20/21 History pantoprazole 40 mg tablet,delayed 40 mg PO QAM 08/20/21 08/20/21 History release Past Med/Surg History Medical History CAD (coronary artery disease) 2018-RCA stent x 2 07/2020-STEMI, s/p PCI to left circumflex with 2 MELLY. Post procedure complicated by V. fib arrest requiring defibrillation. Depression RADHA (generalized anxiety disorder) GERD (gastroesophageal reflux disease) HLD (hyperlipidemia) Pancreatitis Splenic infarct Tobacco abuse Surgical History History of vasectomy Family History Other Diabetes Stroke Social History Smoking Status: Current every day smoker Tobacco Type: Cigarettes Years Smoked: 31; Cigarettes Per Day: 2; Second Hand Exposure: No; Hx Alcohol Use: No Hx Substance Use: No Preferred Language: Icelandic Communication Ability: Effective Can Inspector Required: No Beliefs That Will Affect Care: None marital status: Single Current Living Situation: Alone current occupational status: employed Feels Safe at Home: Yes Assistive Devices: Glasses Review of Systems Review of Systems: As per HPI, all 10 systems reviewed, all other ROS negative Physical Exam Physical Exam: GENERAL: Pleasant, slightly anxious, no respiratory distress SKIN: Normal color, warm HEENT: Bespectacled, [place] palpebral conjunctivae, no ptosis, dry buccal mucosa NECK : Supple, no tenderness CHEST : CTA, no tenderness HEART : RRR, no obvious murmurs ABDOMEN: Excoriation over anterior abdomen, some distention, right upper quadrant/central abdominal tenderness EXTREMITIES : No LE swelling/tenderness, no other conspicuous deformities noted NEUROLOGIC : Coherent, no facial asymmetry, no other gross focality Results & Data Results & Data ([facility]) Vital Signs (Past 12 Hours) Vital Signs Temp Pulse Pulse Resp BP BP Pulse Ox 08/20/21 05:00 71 20 132/89 96 08/20/21 04:30 77 22 143/93 H 97 08/20/21 03:36 71 18 138/84 97 08/20/21 02:46 83 20 157/87 H 97 08/20/21 02:45 83 20 97 08/20/21 02:11 36.5 C 92 H 18 160/104 H 98 Laboratory Results Laboratory Results WBC 8.08 K/uL (4.8-10.8) 08/20/21 02:38 RBC 4.41 M/uL (4.7-6.1) L 08/20/21 02:38 Hgb 15.1 g/dL (14.0-18.0) 08/20/21 02:38 Hct 42.9 % (42-52) 08/20/21 02:38 MCV 97.3 fL (80-100) 08/20/21 02:38 MCH 34.2 pg (25-34) H 08/20/21 02:38 MCHC 35.2 g/dL (32-36) 08/20/21 02:38 RDW Std Deviation 48.7 fL (36.4-46.3) H 08/20/21 02:38 RDW Coeff of Mckinley 13.6 % (11.5-14.5) 08/20/21 02:38 Plt Count 279 K/uL (130-400) 08/20/21 02:38 MPV 9.0 fL (7.4-10.4) 08/20/21 02:38 Immature Gran % (Auto) 0.1 % 08/20/21 02:38 Neut % (Auto) 71.2 % 08/20/21 02:38 Lymph % (Auto) 18.9 % 08/20/21 02:38 [place] % (Auto) 5.9 % 08/20/21 02:38 Eos % (Auto) 3.3 % 08/20/21 02:38 Baso % (Auto) 0.6 % 08/20/21 02:38 Neut # (Auto) 5.74 K/uL (1.4-6.5) 08/20/21 02:38 Lymph # (Auto) 1.53 K/uL (1.2-3.4) 08/20/21 02:38 [place] # (Auto) 0.48 K/uL (0.11-0.59) 08/20/21 02:38 Eos # (Auto) 0.27 K/uL (0-0.5) 08/20/21 02:38 Baso # (Auto) 0.05 K/uL (0-0.2) 08/20/21 02:38 Immature Gran # (Auto) 0.01 K/uL (0.00-0.02) 08/20/21 02:38 Sodium 133 mmol/L (136-145) L 08/20/21 02:38 Potassium 4.2 mmol/L (3.5-5.1) 08/20/21 02:38 Chloride 105 mmol/L (98-107) 08/20/21 02:38 Carbon Dioxide 23 mmol/L (21-32) 08/20/21 02:38 Anion Gap 5.0 (3-11) 08/20/21 02:38 BUN 18 mg/dl (7-18) 08/20/21 02:38 Creatinine 1.09 mg/dl (0.6-1.4) 08/20/21 02:38 Est Cr Clr Drug Dosing 67.2 ml/min 08/20/21 02:38 Est GFR ( Amer) 90.6 ml/min 08/20/21 02:38 Est GFR (Non-Af Amer) 78.2 ml/min 08/20/21 02:38 BUN/Creatinine Ratio 16.6 (10-20) 08/20/21 02:38 Glucose 97 mg/dl (70-99) 08/20/21 02:38 Calcium 9.1 mg/dl (8.5-10.1) 08/20/21 02:38 Magnesium 2.1 mg/dl (1.8-2.4) 08/20/21 02:38 Total Bilirubin 0.4 mg/dl (0.2-1) 08/20/21 02:38 AST 15 U/L (15-37) 08/20/21 02:38 ALT 15 U/L (12-78) 08/20/21 02:38 Alkaline Phosphatase 76 U/L (45-117) 08/20/21 02:38 Troponin I < 0.015 ng/ml (0-0.045) 08/20/21 02:38 Total Protein 7.8 gm/dl (6.4-8.2) 08/20/21 02:38 Albumin 3.8 gm/dl (3.4-5.0) 08/20/21 02:38 Globulin 4.0 gm/dl (2.5-4.0) 08/20/21 02:38 Albumin/Globulin Ratio 1.0 (0.9-2) 08/20/21 02:38 Lipase 887 U/L (73-393) H 08/20/21 02:38 Urine Color Yellow 08/20/21 04:00 Urine Appearance Clear (Clear) 08/20/21 04:00 Urine pH 6.5 (4.5-7.5) 08/20/21 04:00 Ur Specific [place] 1.021 (1.000-1.030) 08/20/21 04:00 Urine Protein Negative (Negative) 08/20/21 04:00 Urine Glucose (UA) Negative (Negative) 08/20/21 04:00 Urine Ketones Negative (Negative) 08/20/21 04:00 Urine Blood Negative (Negative) 08/20/21 04:00 Urine Nitrite Negative (Negative) 08/20/21 04:00 Urine Bilirubin Negative (Negative) 08/20/21 04:00 Urine Urobilinogen Negative (Negative) 08/20/21 04:00 Ur Leukocyte Esterase Negative (Negative) 08/20/21 04:00 COVID-19 Eval Order Covid19 at [facility] 08/20/21 05:[address] abdomen pelvis initial read: Fat stranding near the pancreatic head and duodenummaybe secondaryto acute pancreatitis and/or duodenitis. Nonspecific rounded structure with calcifications along the pancreatic head. This maybe related to chronic pancreatitis, but component of neoplasmcannot be entirelyexcluded. Atrophyof the pancreas. Distended gallbladder with probable cholelithiasis. Further evaluation could be performed with ultrasound if clinicallyindicated. Small hiatal hernia. Evaluation of the stomach is limited byunder distention. Small hypodensityof the liver is too small to definitivelycharacterize. Small hypodensityin the right kidneyis too small to definitivelycharacterize. No hydronephrosis or obstructing stone. Small fat-containing bilateral inguinal hernias. Mild prominence of the bland of the sigmoid colon and descending colon maybe secondaryto under distention which limits evaluation. Normal appendix. No small bowel obstruction EKG as per my interpretation: Rate 65, NSR, normal axis, incomplete RBBB, no ischemia
--- NOTE | 2021-08-20 07:38 | CT Scan Report ---
CT abd pelvis IV con only CLINICAL HISTORY: Left and low abd pain TECHNIQUE: Helical axial images of the abdomen and pelvis were obtained and displayed. Automated dose lowering techniques and/or adjustment according to patient size were utilized for this exam. This e xam was performed with intravenous contrast. COMPARISON: Comparison is made to CT abdomen pelvis 03/11/2020 FINDINGS: Lower chest: Bibasilar atelectasis is seen. There is suggestion of cardiomegaly. Liver: Unremarkable. No focal lesions are seen. Gallbladder and biliary tree: The gallbladder is markedly distended with small polyps versus stones n oted. There is mild dilation of the intra and extra hepatic bile ducts, common bile duct measures 7 m m in diameter. Pancreas: There is fat stranding and edema about the pancreatic head. Calcifications in the pancreas and/or adjacent duodenum are seen. Spleen: Splenule is incidentally noted. Adrenals: Unremarkable. Kidneys and ureters: Previously noted renal cysts are stable. Bladder: Unremarkable. Reproductive organs: Unremarkable. Bowel: Diverticulosis is seen without evidence of diverticulitis. The appendix is unremarkable. There is a small hiatal hernia. Lymph nodes Retroperitoneal: Subcentimeter nodes are noted most prominently at the level of the pancreatic head. Mesenteric: Subcentimeter lymph nodes are noted. Pelvic: Unremarkable. Peritoneum: Normal Vessels: Atherosclerotic calcifications are seen. Abdominal wall: Bilateral fat-containing inguinal hernias are seen. Small fat containing umbilical he rnia is seen. Bones: Degenerative changes in the visualized spine. IMPRESSION: 1. Fat stranding and edema about the pancreatic head likely representing acute pancreatitis. Calcifi cations in the pancreatic parenchyma may represent chronic pancreatitis changes. 2. Mild dilation of the intra and extrahepatic bile ducts which may be secondary to pancreatic infla mmation. ACT 112: Negative or not required by law. Electronically signed by: Vadim Cunha M.D. 08/20/2021 7:36 AM
--- NOTE | 2021-08-20 08:41 | Ultrasound Report ---
US gallbladder CLINICAL HISTORY: ruq tenderness TECHNIQUE: Multiple real-time sonographic images of the right upper quadrant were obtained. Comparison: Comparison is made to ultrasound 09/10/[address] abdomen pelvis 08/20/2021 FINDINGS: The liver is diffusely homogenous with normal contour and echogenicity. No focal mass lesions are se en. No intrahepatic ductal dilatation is seen. The gallbladder is distended. Low level internal e choes are identified layering dependently within the gallbladder, which is consistent with gallbladde r sludge. The gallbladder wall measures 4 mm in diameter. A 6 mm echogenic stone is seen. There is no pericholecystic fluid present. The common duct measures 0.6 cm in diameter at the level of the hepat ic artery. Patient is mildly tender during the exam. The distal pancreas is not visualized due to o verlying bowel gas. The visualized portions of the pancreas are unremarkable. The right kidney shows normal echogenicity, cortical thickness and renal contour. The right kidney sh ows no evidence of hydronephrosis or mass. No ascites or free fluid is seen in Carreon's pouch. IMPRESSION: 1. Distended gallbladder with sludge and stones and minimal wall thickening. Cystitis cannot be excl uded, although this may also represent secondary changes from pancreatitis. 2. Findings of acute pancreatitis were not reproduced due to limited visualization of the pancreas. ACT 112: Negative or not required by law. Electronically signed by: Vadim Cunha M.D. 08/20/2021 8:40 AM
[2021-08-20] MEDS ORDERED: MoRPHine SULFATE 4 MG/ML 1 ML CARP\\VIAL IV PRN (09:01)
[2021-08-20] MEDS ORDERED: LORazepam 0.5 MG/1 ML VIAL IV PRN (09:01)
[2021-08-20] MEDS ORDERED: ACETAMINOPHEN 325 MG TAB PO PRN (09:01)
[2021-08-20] MEDS ORDERED: PROMETHAZINE HCL 12.5 MG in SODIUM CHLORIDE 0.9% 50 ML IV PRN (09:01)
--- NOTE | 2021-08-20 09:31 | Gastrointestinal Consultation ---
Date of Consultation August 20, 2021 Assessment & Plan (1) Recurrent pancreatitis: 50 year old male admitted w/ recurrent pancreatitis, onset of abdominal pain on Wednesday w/ nausea w/o vomiting. CTAP and ABD US shows edema about the pancreatic head, gallbladder sludge/stones and questionable cholecystitis Recommend general surgery consultation Keep NPO Start IV LR 200 mL/hr Continue analgesia as needed Continue antiemetics as needed Check triglycerides Repeat LFTs tomorrow Recommend MRCP today Thank you for allowing us to participate in the care of this patient. Please call with any acute changes, questions or concerns. Please see addendum below with additional recommendation from my supervising physician. Supervising Physician Co-Signing Physician Notes I have personally seen and examined the patient with HAKAN Melendrez. Her note reflects my exam and findings. I agree with her impression and plan. IV volume replacement. Agree with MRCP. Only mild abdominal pain today. Abdiel Dyer M.D. History of Present Illness Reason for Consultation: pancreatitis Requesting Physician: Jose Raul Attending Physician: Regino Blunt MD History of Present Illness 50 year old male with history of anxiety/depression, Barretts on Omeprazole, recurrent pancreatitis, mobitz-2, NSTEMI, dyslipidemia, CAD, diabetes others below presenting to the ED w/ abdominal pain x 4 days. GI asked to evaluate for pancreatitis. Pt notes symptoms started around Wednesday. Suggests midline abd pain which radiates to both upper quadrants and radiates to her back. There is associated nausea. No vomiting. Denies any change in her bowel habits. No black or bloody stools. Weight stable. He does tell me he had gallstone pancreatitis x 3 in past. Is unsure if he has been evaluated by general surgery in the past. Denies new medications + ongoing tobacco denies ETOH use to me LFTs normal Lipase 887 ABD US 2020: Distended gallbladder with sludge and stones and minimal wall thickening. Cystitis cannot be excluded, although this may also represent secondary changes from pancreatitis. 2. Findings of acute pancreatitis were not reproduced due to limited visualization of the pancreas. CTAP 2020: Fat stranding and edema about the pancreatic head likely representing acute pancreatitis. Calcifications in the pancreatic parenchyma may represent chronic pancreatitis changes. 2. Mild dilation of the intra and extrahepatic bile ducts which may be secondary to pancreatic inflammation. ABD US 2019:No calcified gallstone or evidence of acute cholecystitis. CTAP 2020:No evidence of bowel obstruction. No evidence of free airNormal appendix. No evidence of acute diverticulitis Linear/triangular hypodense defect within the spleen. This was not visualized the prior study. There is no perisplenic fluid, and no perisplenic fat infiltration. The findings are suggestive of the sequela of a prior splenic infarct EGD 2017:Esophageal mucosal changes classified as Casanova's stageC2-M3 per [place] criteria. Biopsied. Medium-sized hiatal hernia. Gastritis. Biopsied.Normal examined duodenum. EGD 2019:Normal upper third of esophagus and middle third of esophagus. - Esophageal mucosal changes secondary to established short-segment Casanova's disease, classified as Casanova's stage C2-M3 per [place] criteria. Biopsied. - Medium-sized hiatal hernia. - Normal gastric fundus and gastric body. - Gastritis. Biopsied. - Normal examined duodenum. [id number]:The patient will be observed post-procedure, until all discharge criteria are met. - Advance diet as tolerated today. - Await pathology results. - Try Bentyl (dicyclomine) 10 mg PO BID 30 min AC for 6 weeks. Family history of GI malignancy:none Allergies Allergy/AdvReac Type Severity Reaction Status Date / Time No Known Allergies Allergy Verified 08/20/21 02:37 Home Medications Medication Instructions Recorded Confirmed Type aspirin 81 mg tablet,delayed 81 mg PO QAM 10/06/18 08/20/21 History release sertraline 50 mg tablet (Zoloft) 50 mg PO QAM 10/06/18 08/20/21 History nitroglycerin 0.4 mg sublingual 0.4 mg SUBLINGUAL UD PRN 10/07/18 08/20/21 History tablet (Nitrostat) ticagrelor 90 mg tablet (Brilinta) 90 mg PO BID 30 Days #60 tab 08/11/20 08/20/21 Rx dicyclomine 10 mg capsule 10 mg PO BID PRN 12/06/20 08/20/21 History ezetimibe 10 mg tablet 10 mg PO QAM 12/06/20 08/20/21 History famotidine 40 mg tablet 40 mg PO HS 12/06/20 08/20/21 History isosorbide mononitrate 60 mg 60 mg PO DAILY 12/06/20 08/20/21 History tablet,extended release 24 hr magnesium oxide 400 mg PO QAM 12/06/20 08/20/21 History metoprolol succinate 25 mg 25 mg PO QAM 12/06/20 08/20/21 History tablet,extended release 24 hr rosuvastatin 40 mg tablet 40 mg PO QAM 12/06/20 08/20/21 History pantoprazole 40 mg tablet,delayed 40 mg PO QAM 08/20/21 08/20/21 History release Patient History Medical History CAD (coronary artery disease) 2018-RCA stent x 2 07/2020-STEMI, s/p PCI to left circumflex with 2 MELLY. Post procedure complicated by V. fib arrest requiring defibrillation. Depression RADHA (generalized anxiety disorder) GERD (gastroesophageal reflux disease) HLD (hyperlipidemia) Pancreatitis Splenic infarct Tobacco abuse Surgical History History of vasectomy Family History Other Diabetes Stroke Social History Smoking Status: Current every day smoker Tobacco Type: Cigarettes Years Smoked: 31; Cigarettes Per Day: 2; Second Hand Exposure: No; Do You Dip or Chew Tobacco: No; Tobacco Cessation Education Requested by Patient: No Hx Alcohol Use: No Hx Substance Use: No Preferred Language: [place]an Communication Ability: Effective Quality Assurance Tester Required: No Beliefs That Will Affect Care: None marital status: Single Current Living Situation: Alone current occupational status: employed Other Information That Helps Us Care for You: No Feels Safe at Home: Yes Assistive Devices: Glasses Review of Systems Review of Systems: All systems reviewed & are unremarkable except as noted in HPI & below Physical Exam Constitutional: WD/WN, vitals as above Neck: trachea midline, no thyromegaly Respiratory: normal respiratory effort; no respiratory distress, no labored breathing, no retractions, does not use accessory muscles and no cough Cardiovascular: Rate/Rhythm: regular rate and regular rhythm Heart Sounds: no click and no cardiac rub Gastrointestinal (Abdomen): Inspection/Auscultation: abdomen normal to inspection and normal bowel sounds; abdomen not distended, no abdominal edema and no significant pannus Percussion/Palpation: + abdomen tender and abdomen soft; no guarding, abdomen not rigid, no abdominal mass and no ascites Skin: no rashes, warm and dry Results & Data ([facility]) Vital Signs (Past 12 Hours) Vital Signs Temp Pulse Pulse Resp BP BP Pulse Ox 08/20/21 09:04 36.6 C 76 16 142/87 H 96 08/20/21 08:34 17 139/81 97 08/20/21 07:00 87 18 116/84 96 08/20/21 06:30 89 24 96 08/20/21 06:00 64 21 149/86 H 97 08/20/21 05:56 78 18 136/92 97 08/20/21 05:30 82 20 96 08/20/21 05:00 71 20 132/89 96 08/20/21 04:30 77 22 143/93 H 97 08/20/21 03:36 71 18 138/84 97 08/20/21 02:46 83 20 157/87 H 97 08/20/21 02:45 83 20 97 08/20/21 02:11 36.5 C 92 H 18 160/104 H 98 Laboratory Results 08/20/21 08/20/21 08/20/21 Range/Units 05:00 05:00 04:00 WBC (4.8-10.8) K/uL RBC (4.7-6.1) M/uL Hgb (14.0-18.0) g/dL Hct (42-52) % MCV (80-100) fL MCH (25-34) pg MCHC (32-36) g/dL RDW Std Deviation (36.4-46.3) fL RDW Coeff of Mckinley (11.5-14.5) % Plt Count (130-400) K/uL MPV (7.4-10.4) fL Immature Gran % (Auto) % Neut % (Auto) % Lymph % (Auto) % [place] % (Auto) % Eos % (Auto) % Baso % (Auto) % Neut # (Auto) (1.4-6.5) K/uL Lymph # (Auto) (1.2-3.4) K/uL [place] # (Auto) (0.11-0.59) K/uL Eos # (Auto) (0-0.5) K/uL Baso # (Auto) (0-0.2) K/uL Immature Gran # (Auto) (0.00-0.02) K/uL Sodium (136-145) mmol/L Potassium (3.5-5.1) mmol/L Chloride (98-107) mmol/L Carbon Dioxide (21-32) mmol/L Anion Gap (3-11) BUN (7-18) mg/dl Creatinine (0.6-1.4) mg/dl Est Cr Clr Drug Dosing ml/min Est GFR ( Amer) ml/min Est GFR (Non-Af Amer) ml/min BUN/Creatinine Ratio (10-20) Glucose (70-99) mg/dl Calcium (8.5-10.1) mg/dl Magnesium (1.8-2.4) mg/dl Total Bilirubin (0.2-1) mg/dl AST (15-37) U/L ALT (12-78) U/L Alkaline Phosphatase (45-117) U/L Troponin I (0-0.045) ng/ml Total Protein (6.4-8.2) gm/dl Albumin (3.4-5.0) gm/dl Globulin (2.5-4.0) gm/dl Albumin/Globulin Ratio (0.9-2) Lipase (73-393) U/L Urine Color Yellow Urine Appearance Clear (Clear) Urine pH 6.5 (4.5-7.5) Ur Specific [place] 1.021 (1.000-1.030) Urine Protein Negative (Negative) Urine Glucose (UA) Negative (Negative) Urine Ketones Negative (Negative) Urine Blood Negative (Negative) Urine Nitrite Negative (Negative) Urine Bilirubin Negative (Negative) Urine Urobilinogen Negative (Negative) Ur Leukocyte Esterase Negative (Negative) COVID-19 Eval Order Covid19 at [facility] SARS-CoV-2 (PCR) NEGATIVE (Negative) 08/20/21 08/20/21 Range/Units 02:38 02:38 WBC 8.08 (4.8-10.8) K/uL RBC 4.41 L (4.7-6.1) M/uL Hgb 15.1 (14.0-18.0) g/dL Hct 42.9 (42-52) % MCV 97.3 (80-100) fL MCH 34.2 H (25-34) pg MCHC 35.2 (32-36) g/dL RDW Std Deviation 48.7 H (36.4-46.3) fL RDW Coeff of Mckinley 13.6 (11.5-14.5) % Plt Count 279 (130-400) K/uL MPV 9.0 (7.4-10.4) fL Immature Gran % (Auto) 0.1 % Neut % (Auto) 71.2 % Lymph % (Auto) 18.9 % [place] % (Auto) 5.9 % Eos % (Auto) 3.3 % Baso % (Auto) 0.6 % Neut # (Auto) 5.74 (1.4-6.5) K/uL Lymph # (Auto) 1.53 (1.2-3.4) K/uL [place] # (Auto) 0.48 (0.11-0.59) K/uL Eos # (Auto) 0.27 (0-0.5) K/uL Baso # (Auto) 0.05 (0-0.2) K/uL Immature Gran # (Auto) 0.01 (0.00-0.02) K/uL Sodium 133 L (136-145) mmol/L Potassium 4.2 (3.5-5.1) mmol/L Chloride 105 (98-107) mmol/L Carbon Dioxide 23 (21-32) mmol/L Anion Gap 5.0 (3-11) BUN 18 (7-18) mg/dl Creatinine 1.09 (0.6-1.4) mg/dl Est Cr Clr Drug Dosing 67.2 ml/min Est GFR ( Amer) 90.6 ml/min Est GFR (Non-Af Amer) 78.2 ml/min BUN/Creatinine Ratio 16.6 (10-20) Glucose 97 (70-99) mg/dl Calcium 9.1 (8.5-10.1) mg/dl Magnesium 2.1 (1.8-2.4) mg/dl Total Bilirubin 0.4 (0.2-1) mg/dl AST 15 (15-37) U/L ALT 15 (12-78) U/L Alkaline Phosphatase 76 (45-117) U/L Troponin I < 0.015 (0-0.045) ng/ml Total Protein 7.8 (6.4-8.2) gm/dl Albumin 3.8 (3.4-5.0) gm/dl Globulin 4.0 (2.5-4.0) gm/dl Albumin/Globulin Ratio 1.0 (0.9-2) Lipase 887 H (73-393) U/L Urine Color Urine Appearance (Clear) Urine pH (4.5-7.5) Ur Specific [place] (1.000-1.030) Urine Protein (Negative) Urine Glucose (UA) (Negative) Urine Ketones (Negative) Urine Blood (Negative) Urine Nitrite (Negative) Urine Bilirubin (Negative) Urine Urobilinogen (Negative) Ur Leukocyte Esterase (Negative) COVID-19 Eval Order SARS-CoV-2 (PCR) (Negative)
[2021-08-20] MEDS ORDERED: TICAGRELOR 90 MG TAB PO SCH (09:45)
[2021-08-20] MEDS: ENOXAPARIN INJ 40 MG/0.4 ML SYR SQ SCH (10:33)
[2021-08-20] MEDS: LACTATED RINGER'S 1,000 ML IV SCH ×3 (10:33→20:07)
[2021-08-20] MEDS: PANTOprazole 40 MG TAB PO SCH (10:34)
[2021-08-20] MEDS: METOPROLOL SUCC 25MG EXT REL TAB PO SCH (10:34)
[2021-08-20] MEDS: ISOSORBIDE MONO EXTENDED REL 60 MG TABCR PO SCH (10:34)
[2021-08-20] MEDS: EZETIMIBE 10 MG TABLET PO SCH (10:34)
[2021-08-20] MEDS: ASPIRIN 81 MG ECTAB PO SCH (10:34)
[2021-08-20] MEDS: traMADol HCL 50 MG TABLET PO PRN (10:55)
[2021-08-20 11:03] LABS: Albumin Level 3.5 gm/dl (3.4-5.0); Bilirubin Direct 0.5 mg/dl (0-0.2); Bilirubin,Total 0.9 mg/dl (0.2-1); Total Protein 7.3 gm/dl (6.4-8.2)
--- NOTE | 2021-08-20 11:21 | Surgery Consultation ---
Date of Consultation August 20, 2021 Assessment & Plan (1) Acute pancreatitis: This is a 50y M with a PMH of tobacco use <1ppd, anxiety/depression, CAD s/p multiple NV's requiring a total of 7 stents, who presents to the [facility] ED on 08/20/21 with complaints of abdominal pain since Wednesday. He underwent a CT a/p and a RUQ US revealing findings concerning for pancreatitis, with a distended gallbladder (+ sludge/stones) and cannot rule out cholecystitis. Labs reveal WBC 8, TBili: 0.9, AST: 210, ALT: 84, AlkP: 179, lipase 887. On examination patient's abdomen is slightly tender to palpation in the epigastric and RUQ regions. GI is on board and recommending an MRCP for further evaluation. We would like to have Cardiology evaluate the patient given his cardiac history and question if he can come off of the Brillanta pre-op. We will continue to follow closely for surgical planning for concern of gallstone pancreatitis. Supervising Physician Co-Signing Physician Notes Patient seen and examined, labs and imaging reviewed, agree with above. 50-year-old male with prior episodes of pancreatitis admitted with pancreatitis and concern for cholecystitis. Prior episodes appear to be related to alcohol. He is no longer drinking he did not have any drinks leading up to this. He has noticed postprandial right upper quadrant pain, specifically with fatty meals. He is on Brilinta. On exam he is afebrile stable vitals. He is tender to palpation in the epigastrium and right upper quadrant. No guarding or rebound. No prior abdominal surgeries. Lipase elevated, ultrasound with stones and distended gallbladder, CT with distended gallbladder and peripancreatic inflammation. Patient evaluated by cardiology and recommend no further testing and put him at an intermediate risk. They also recommend holding Brilinta for 3 days prior to surgery and restarted shortly after. MRCP pending. Appreciate GI, medicine, and cardiology input. We will plan for laparoscopic cholecystectomy with possible cholangiogram early next week. This may be performed if he is still an inpatient, or can be scheduled electively as an outpatient if his symptoms improve over the next few days. History of Present Illness Attending Physician: Regino Blunt MD History of Present Illness This is a 50y M with a PMH of tobacco use <1ppd, anxiety/depression, CAD s/p multiple NV's requiring a total of 7 stents, who presents to the [facility] ED on 08/20/21 with complaints of abdominal pain. Patient reports his pain starting on Wednesday. He describes his pain as bandlike across his abdomen that radiates into his back. The pain is more severe with eating and drinking. As his symptoms progressed he decided to come into the ER for further evaluation. He underwent a CT a/p and a RUQ US revealing findings concerning for pancreatitis, with a distended gallbladder (+ sludge/stones) and cannot rule out cholecystitis. Patient states he had similar attacks to this in the past that were diagnosed as pancreatitis. The last time he was hospitalized for this per patient was over a year ago but he says when this happens to him he tries to take care of it at home by himself by limiting his diet and taking Ibuprofen. He denies a history of drinking alcohol. He endorses + nausea and sweats. He has not had much to eat/drink since symptoms began on Wednesday. He denies vomiting, CP/SOB, diarrhea, constipation, graham colored stools, or tea colored urine. His past surgical history includes a vasectomy. He follows with [facility] cardiology and has been started on Brillanta in 2018. He reports his last heart attack was in 2020. Allergies Allergy/AdvReac Type Severity Reaction Status Date / Time No Known Allergies Allergy Verified 08/20/21 02:37 Home Medications Medication Instructions Recorded Confirmed Type aspirin 81 mg tablet,delayed 81 mg PO QAM 10/06/18 08/20/21 History release sertraline 50 mg tablet (Zoloft) 50 mg PO QAM 10/06/18 08/20/21 History nitroglycerin 0.4 mg sublingual 0.4 mg SUBLINGUAL UD PRN 10/07/18 08/20/21 History tablet (Nitrostat) ticagrelor 90 mg tablet (Brilinta) 90 mg PO BID 30 Days #60 tab 08/11/20 08/20/21 Rx dicyclomine 10 mg capsule 10 mg PO BID PRN 12/06/20 08/20/21 History ezetimibe 10 mg tablet 10 mg PO QAM 12/06/20 08/20/21 History famotidine 40 mg tablet 40 mg PO HS 12/06/20 08/20/21 History isosorbide mononitrate 60 mg 60 mg PO DAILY 12/06/20 08/20/21 History tablet,extended release 24 hr magnesium oxide 400 mg PO QAM 12/06/20 08/20/21 History metoprolol succinate 25 mg 25 mg PO QAM 12/06/20 08/20/21 History tablet,extended release 24 hr rosuvastatin 40 mg tablet 40 mg PO QAM 12/06/20 08/20/21 History pantoprazole 40 mg tablet,delayed 40 mg PO QAM 08/20/21 08/20/21 History release Patient History Medical History (Updated 08/20/21 @ 15:03 by HAKAN Chen) Barretts esophagus CAD (coronary artery disease) 2017-RCA stent x 2 07/2020-STEMI, s/p PCI to left circumflex with 2 MELLY. Post procedure complicated by V. fib arrest requiring defibrillation. Depression RADHA (generalized anxiety disorder) GERD (gastroesophageal reflux disease) HLD (hyperlipidemia) Pancreatitis Splenic infarct Tobacco abuse Surgical History History of vasectomy Family History Other Diabetes Stroke Social History Smoking Status: Current every day smoker Tobacco Type: Cigarettes Years Smoked: 31; Cigarettes Per Day: 2; Second Hand Exposure: No; Do You Dip or Chew Tobacco: No; Tobacco Cessation Education Requested by Patient: No Hx Alcohol Use: No Hx Substance Use: No Preferred Language: [place] Communication Ability: Effective Cancer Genetic Counselor Required: No Beliefs That Will Affect Care: None marital status: Single Current Living Situation: Alone current occupational status: employed Other Information That Helps Us Care for You: No Feels Safe at Home: Yes Assistive Devices: Glasses Review of Systems Constitutional: + sweats; no fever and no chills Respiratory: no dyspnea Cardiovascular: no chest pain Gastrointestinal: + abdominal pain and + nausea; no vomiting and no diarrhea/loose stools Musculoskeletal: pain that radiates into the back Physical Exam Physical Exam: awake/alert Constitutional: well developed and well nourished; no acute distress Respiratory: normal respiratory effort Gastrointestinal (Abdomen): Percussion/Palpation: + abdomen tender (in epigastric and RUQ regions) and abdomen soft Results & Data ([facility]) Vital Signs (Past 12 Hours) Vital Signs Temp Pulse Pulse Resp BP BP Pulse Ox 08/20/21 09:04 36.6 C 76 16 142/87 H 96 08/20/21 08:34 17 139/81 97 08/20/21 07:00 87 18 116/84 96 08/20/21 06:30 89 24 96 08/20/21 06:00 64 21 149/86 H 97 08/20/21 05:56 78 18 136/92 97 08/20/21 05:30 82 20 96 08/20/21 05:00 71 20 132/89 96 08/20/21 04:30 77 22 143/93 H 97 08/20/21 03:36 71 18 138/84 97 08/20/21 02:46 83 20 157/87 H 97 08/20/21 02:45 83 20 97 08/20/21 02:11 36.5 C 92 H 18 160/[address] abd pelvis IV con only CLINICAL HISTORY: Left and low abd pain TECHNIQUE: Helical axial images of the abdomen and pelvis were obtained and displayed. Automated dose lowering techniques and/or adjustment according to patient size were utilized for this exam. This exam was performed with intravenous contrast. COMPARISON: Comparison is made to CT abdomen pelvis 03/11/2020 FINDINGS: Lower chest: Bibasilar atelectasis is seen. There is suggestion of cardiomegaly. Liver: Unremarkable. No focal lesions are seen. Gallbladder and biliary tree: The gallbladder is markedly distended with small polyps versus stones noted. There is mild dilation of the intra and extra hepatic bile ducts, common bile duct measures 7 mm in diameter. Pancreas: There is fat stranding and edema about the pancreatic head. Calcifications in the pancreas and/or adjacent duodenum are seen. Spleen: Splenule is incidentally noted. Adrenals: Unremarkable. Kidneys and ureters: Previously noted renal cysts are stable. Bladder: Unremarkable. Reproductive organs: Unremarkable. Bowel: Diverticulosis is seen without evidence of diverticulitis. The appendix is unremarkable. There is a small hiatal hernia. Lymph nodes Retroperitoneal: Subcentimeter nodes are noted most prominently at the level of the pancreatic head. Mesenteric: Subcentimeter lymph nodes are noted. Pelvic: Unremarkable. Peritoneum: Normal Vessels: Atherosclerotic calcifications are seen. Abdominal wall: Bilateral fat-containing inguinal hernias are seen. Small fat containing umbilical hernia is seen. Bones: Degenerative changes in the visualized spine. IMPRESSION: 1. Fat stranding and edema about the pancreatic head likely representing acute pancreatitis. Calcifications in the pancreatic parenchyma may represent chronic pancreatitis changes. 2. Mild dilation of the intra and extrahepatic bile ducts which may be secondary to pancreatic inflammation. ACT 112: Negative or not required by law. Electronically signed by: Vadim Cunha M.D. 08/20/2021 7:36 AM US gallbladder CLINICAL HISTORY: ruq tenderness TECHNIQUE: Multiple real-time sonographic images of the right upper quadrant were obtained. Comparison: Comparison is made to ultrasound 09/10/[address] abdomen pelvis 08/20/2021 FINDINGS: The liver is diffusely homogenous with normal contour and echogenicity. No focal mass lesions are seen. No intrahepatic ductal dilatation is seen. The gallbladder is distended. Low level internal echoes are identified layering dependently within the gallbladder, which is consistent with gallbladder sludge. The gallbladder wall measures 4 mm in diameter. A 6 mm echogenic stone is seen. There is no pericholecystic fluid present. The common duct measures 0.6 cm in diameter at the level of the hepatic artery. Patient is mildly tender during the exam. The distal pancreas is not visualized due to overlying bowel gas. The visualized portions of the pancreas are unremarkable. The right kidney shows normal echogenicity, cortical thickness and renal contour. The right kidney shows no evidence of hydronephrosis or mass. No ascites or free fluid is seen in Carreon's pouch. IMPRESSION: 1. Distended gallbladder with sludge and stones and minimal wall thickening. Cystitis cannot be excluded, although this may also represent secondary changes from pancreatitis. 2. Findings of acute pancreatitis were not reproduced due to limited visualization of the pancreas. ACT 112: Negative or not required by law. Electronically signed by: Vadim Cunha M.D. 08/20/2021 8:40 AM PG Care Time/CCT Total # of Minutes Spent Total Time Spent with Patient: Total time spent is greater than 50% in coordination of care (as documented) at patient's floor/unit and/or counseling patient: Coding Level of Care Code 64658 Inpt Consult Level 3 Diagnoses Acute pancreatitis K85.90
[2021-08-20] MEDS ORDERED: PIPERACILL/TAZOBAC CONSULT ACTIVE PRN (12:24)
[2021-08-20] MEDS ORDERED: PIPERACILLIN/TAZOBACTAM 3.375 GM in DEXTROSE 5% 100 ML IV ONE (12:45)
--- NOTE | 2021-08-20 13:45 | Electrocardiogram Report ---
Test Reason : Blood Pressure : / mmHG Vent. Rate : 065 BPM Atrial Rate : 065 BPM P-R Int : 120 ms QRS Dur : 092 ms QT Int : 366 ms P-R-T Axes : 071 034 019 degrees QTc Int : 380 ms Normal sinus rhythm with sinus arrhythmia Incomplete right bundle branch block Borderline ECG When compared with ECG of 02-JAN-2021 06:03, No significant change was found Confirmed by Neo Garrett ([id number]) on 08/20/2021 1:45:33 PM Referred By: REFERRED SELF Confirmed By:Neo Garrett
[2021-08-20] MEDS: SERTRALINE HCL 50 MG TABLET PO SCH (14:03)
--- NOTE | 2021-08-20 14:39 | Cardiology Consultation ---
Date of Consultation August 20, 2021 Assessment & Plan (1) Preop cardiovascular exam: (2) CAD (coronary artery disease): (3) Recurrent pancreatitis: 50-year-old patient with recurrent pancreatitis. Perioperative cardiovascular risk is intermediate due to complex coronary disease documented above with history of myocardial infarction with drug-eluting stent implantation 12/2020. ECG stable without ischemic changes. Patient's functional capacity is adequate (greater than 4 METS per history) without anginal symptoms. No further cardiac testing would lower patient's perioperative risk at this time. In regard to his dual antiplatelet therapy, more than 6 months have passed since h is most recent drug-eluting stent implantation. This is the minimum requirement for discontinuation of Brilinta. Recommend withholding Brilinta 3 days prior to surgery and restarting promptly thereafter when bleeding risk is deemed acceptable. Continue aspirin uninterrupted perioperatively. Other cardiovascular medications including metoprolol succinate and isosorbide monohydrate should be continued in the perioperative period. Thank you for allow me to participate in the care of your patient. History of Present Illness Reason for Consultation: Preoperative cardiovascular evaluation Requesting Physician: Felecia MCCLENDON Attending Physician: Regino Blunt MD History of Present Illness 50-year-old patient admitted with abdominal discomfort for 3 days. Diagnosed with recurrent pancreatitis. Lipase elevated. CT of the abdomen and pelvis demonstrating pancreatitis with possible cholecystitis. Cardiology consultation requested for preoperative risk ratification prior to cholecystectomy. Complex cardiovascular history including multiple myocardial infarctions and percutaneous interventions. The most recent of which occurred in December 2020. Patient experienced syncope and associated type II Mobitz second-degree heart block (anginal equivalent). Admitted to the hospital with elevated troponin. Cardiac catheterization revealing 100% mid occlusion of left circumflex. 3 Xience drug-eluting stents were placed from the distal aspect of prior stent of the left posterior lateral branch vessel. Balloon angioplasty performed of prior distal circumflex stent with a 2.0 balloon. Cardiac catheterization at that time otherwise demonstrated a 60% mid LAD, and a dominant RCA with widely patent mid stent. Faint right to left collaterals to the distalmost circumflex. Patient feeling well since his most recent stent implantation. Denies any lightheadedness, dizziness, syncope, or near syncope. No chest discomfort or unusual shortness of breath. 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 Reports stable functional capacity. No orthopnea, PND, or lower extremity edema. Denies palpitations, claudication, focal weakness, visual changes, slur red speech, or paresthesias. Tolerating current medications listed below including dual antiplatelet therapy. No signs/symptoms of GI/ blood loss. Allergies Allergy/AdvReac Type Severity Reaction Status Date / Time No Known Allergies Allergy Verified 08/20/21 02:37 Home Medications Medication Instructions Recorded Confirmed Type aspirin 81 mg tablet,delayed 81 mg PO QAM 10/06/18 08/20/21 History release sertraline 50 mg tablet (Zoloft) 50 mg PO QAM 10/06/18 08/20/21 History nitroglycerin 0.4 mg sublingual 0.4 mg SUBLINGUAL UD PRN 10/07/18 08/20/21 History tablet (Nitrostat) ticagrelor 90 mg tablet (Brilinta) 90 mg PO BID 30 Days #60 tab 08/11/20 08/20/21 Rx dicyclomine 10 mg capsule 10 mg PO BID PRN 12/06/20 08/20/21 History ezetimibe 10 mg tablet 10 mg PO QAM 12/06/20 08/20/21 History famotidine 40 mg tablet 40 mg PO HS 12/06/20 08/20/21 History isosorbide mononitrate 60 mg 60 mg PO DAILY 12/06/20 08/20/21 History tablet,extended release 24 hr magnesium oxide 400 mg PO QAM 12/06/20 08/20/21 History metoprolol succinate 25 mg 25 mg PO QAM 12/06/20 08/20/21 History tablet,extended release 24 hr rosuvastatin 40 mg tablet 40 mg PO QAM 12/06/20 08/20/21 History pantoprazole 40 mg tablet,delayed 40 mg PO QAM 08/20/21 08/20/21 History release Patient History Medical History (Updated 08/20/21 @ 15:03 by HAKAN Chen) Barretts esophagus CAD (coronary artery disease) 2017-RCA stent x 2 07/2020-STEMI, s/p PCI to left circumflex with 2 MELLY. Post procedure complicated by V. fib arrest requiring defibrillation. Depression RADHA (generalized anxiety disorder) GERD (gastroesophageal reflux disease) HLD (hyperlipidemia) Pancreatitis Splenic infarct Tobacco abuse Surgical History History of vasectomy Family History Other Diabetes Stroke Social History Smoking Status: Current every day smoker Tobacco Type: Cigarettes Years Smoked: 31; Cigarettes Per Day: 2; Second Hand Exposure: No; Do You Dip or Chew Tobacco: No; Tobacco Cessation Education Requested by Patient: No Hx Alcohol Use: No Hx Substance Use: No Preferred Language: [place] Citizen Communication Ability: Effective Desk Reporter Required: No Beliefs That Will Affect Care: None marital status: Single Current Living Situation: Alone current occupational status: employed Other Information That Helps Us Care for You: No Feels Safe at Home: Yes Assistive Devices: None Review of Systems Review of Systems: All systems reviewed & are unremarkable except as noted in Subjective Physical Exam Constitutional: well nourished; no acute distress and not ill appearing Respiratory: normal respiratory effort; no respiratory distress, no labored breathing and no retractions Auscultation: lungs clear to auscultation bilaterally; no crackles, no rales and no wheezes Cardiovascular: Rate/Rhythm: regular rate and regular rhythm Heart Sounds: normal S1 and normal S2; no gallop, no murmur and no cardiac rub Vessels: radial pulses present; no JVD and no carotid bruit Extremities: + edema Gastrointestinal (Abdomen): Inspection/Auscultation: abdomen normal to inspection; abdomen not distended and + abnormal bowel sounds (Hypoactive) Percussion/Palpation: + abdomen tender (epigastric) and abdomen soft; no guarding and abdomen not rigid Neurologic: CN's II-XI intact bilaterally and moves all extremities; no focal motor deficits Motor/Sensory: no tremor Psychiatric: A+Ox3, euthymic affect Results & Data ([facility]) Vital Signs (Past 12 Hours) Vital Signs Temp Pulse Pulse Resp BP BP Pulse Ox 08/20/21 09:04 36.6 C 76 16 142/87 H 96 08/20/21 08:34 17 139/81 97 08/20/21 07:00 87 18 116/84 96 08/20/21 06:30 89 24 96 08/20/21 06:00 64 21 149/86 H 97 08/20/21 05:56 78 18 136/92 97 08/20/21 05:30 82 20 96 08/20/21 05:00 71 20 132/89 96 08/20/21 04:30 77 22 143/93 H 97 08/20/21 03:36 71 18 138/84 97 08/20/21 02:46 83 20 157/87 H 97 08/20/21 02:45 83 20 97
--- NOTE | 2021-08-20 14:48 | Hospitalist Progress Note ---
Date of Service August 20, 2021 Assessment & Plan (1) Gallbladder disease: (2) Recurrent pancreatitis: Plan: -Patient presented with reports of abdominal pain, nausea, poor appetite x 4 days. -CT ABD/pelvis - Fat stranding and edema about the pancreatic head likely representing acute pancreatitis. Calcifications in the pancreatic parenchyma may represent chronic pancreatitis changes. -RUQ US - Distended gallbladder with sludge and stones and minimal wall thick ening. Cystitis cannot be excluded, although this may also represent secondary changes from pancreatitis. -Mild transaminitis, lipase 887 -?? Gallstone pancreatitis -GI and general surgery consults -MRCP pending -N.p.o., IVF, pain and nausea control -Start IV Zosyn for possible acute cholecystitis -Given significant cardiac history, will consult cardiology for preoperative evaluation for possible cholecystectomy- Case discussed with Dr. Whittaker (3) CAD (coronary artery disease): Plan: -Appears stable, no reports of chest pain or recent anginal symptoms -EKG without acute ST changes -2017-RCA stent x2, 07/2020-STEMI s/p PCI to left circumflex with 2 MELLY, 12/2020- NSTEMI s/p 3 Xience MELLY to the distal aspect of prior stent of the left posterior lateral branch vessel. Balloon angioplasty performed of prior distal circumflex stent. -Cardiology consulted for preop evaluation-given that more than 6 months have passed since last MELLY placement, okay to hold Brilinta 3 days prior to surgery and restart promptly when bleeding risk is acceptable. Continue ASA, metoprolol, isosorbide uninterrupted perioperatively. (4) HLD (hyperlipidemia): Plan: -Continue statin and Zetia (5) Barretts esophagus: Plan: -Continue PPI (6) DVT prophylaxis: Plan: -SQ Lovenox Admission and Anticipated Discharge Date Admission Date: August 20, 2021 Supervising Physician Co-Signing Physician Notes Patient seen and examined by me, care coordinated with HAKAN Chen, please refer to her note above for further detail. Currently patient is lying in bed, in no acute distress, feeling better. He is alert oriented answering questions appropriately. He is tender to palpation in epigastric region. Abdomen is otherwise soft, positive bowel sounds. Heart sounds regular, lung sounds clear to auscultation. No lower extremity edema noted. Patient moves extremities spontaneously and without difficulty. Patient admitted overnight, seen by GI this morning had ultrasound of his gallbladder done this morning, which was concerning for possible cholecystitis and therefore general surgery was also consulted. Patient may have gallstone pancreatitis, and it is recommended that he has cholecystectomy, however patient also has history of CAD and most recent MRI in December. Discussed with cardiology, and plan is to hold Brilinta for 3 days prior to surgery. Continue to closely monitor, continue IV fluids and IV antibiotics. Amelia Blunt MD Subjective Patient seen and examined. Sitting on the edge of the bed. Reports abdominal pain and nausea have improved. No chest pain shortness of breath, fevers, chills Review of Systems Review of Systems: All systems reviewed & are unremarkable except as noted in Subjective Physical Exam Constitutional: no acute distress Sitting on the edge of the bed Respiratory: normal respiratory effort, lungs clear to auscultation Cardiovascular: Rate/Rhythm: regular rate and regular rhythm Vessels: normal peripheral pulses Extremities: no edema Gastrointestinal (Abdomen): Inspection/Auscultation: normal bowel sounds Percussion/Palpation: + abdomen tender (Mild, epigastric, RUQ) and abdomen soft; no guarding and abdomen not rigid Skin: no rashes, warm and dry Neurologic: moves all extremities; no focal motor deficits Psychiatric: A+Ox3, euthymic affect Results & Data Results & Data ([facility]) Vital Signs (Past 12 Hours) Vital Signs Temp Pulse Pulse Resp BP BP Pulse Ox 08/20/21 09:04 36.6 C 76 16 142/87 H 96 08/20/21 08:34 17 139/81 97 08/20/21 07:00 87 18 116/84 96 08/20/21 06:30 89 24 96 08/20/21 06:00 64 21 149/86 H 97 08/20/21 05:56 78 18 136/92 97 08/20/21 05:30 82 20 96 08/20/21 05:00 71 20 132/89 96 08/20/21 04:30 77 22 143/93 H 97 08/20/21 03:36 71 18 138/84 97 Laboratory Results Short CBC 08/20/21 Range/Units 02:38 WBC 8.08 (4.8-10.8) K/uL Hgb 15.1 (14.0-18.0) g/dL Hct 42.9 (42-52) % Plt Count 279 (130-400) K/uL BMP 08/20/21 02:38 Sodium 133 L Potassium 4.2 Chloride 105 Carbon Dioxide 23 BUN 18 Creatinine 1.09 Glucose 97 Calcium 9.1 Cardiac Enzymes 08/20/21 Range/Units 02:38 Troponin I < 0.015 (0-0.045) ng/ml Liver Function 08/20/21 08/20/21 Range/Units 02:38 10:14 Total Bilirubin 0.4 0.9 D (0.2-1) mg/dl Direct Bilirubin 0.5 H (0-0.2) mg/dl AST 15 210 H (15-37) U/L ALT 15 84 H (12-78) U/L Alkaline Phosphatase 76 179 H D (45-117) U/L Albumin 3.8 3.5 (3.4-5.0) gm/dl Urine 08/20/21 Range/Units 04:00 Urine Color Yellow Urine Appearance Clear (Clear) Urine pH 6.5 (4.5-7.5) Ur Specific [place] 1.021 (1.000-1.030) Urine Protein Negative (Negative) Urine Glucose (UA) Negative (Negative) Diagnostic Findings Abdomen/Pelvis CT 08/20/21 02:24 CT abd pelvis IV con only CLINICAL HISTORY: Left and low abd pain TECHNIQUE: Helical axial images of the abdomen and pelvis were obtained and displayed. Automated dose lowering techniques and/or adjustment according to patient size were utilized for this exam. This exam was performed with intravenous contrast. COMPARISON: Comparison is made to CT abdomen pelvis 03/11/2020 FINDINGS: Lower chest: Bibasilar atelectasis is seen. There is suggestion of cardiomegaly. Liver: Unremarkable. No focal lesions are seen. Gallbladder and biliary tree: The gallbladder is markedly distended with small polyps versus stones noted. There is mild dilation of the intra and extra hepatic bile ducts, common bile duct measures 7 mm in diameter. Pancreas: There is fat stranding and edema about the pancreatic head. Calcifications in the pancreas and/or adjacent duodenum are seen. Spleen: Splenule is incidentally noted. Adrenals: Unremarkable. Kidneys and ureters: Previously noted renal cysts are stable. Bladder: Unremarkable. Reproductive organs: Unremarkable. Bowel: Diverticulosis is seen without evidence of diverticulitis. The appendix is unremarkable. There is a small hiatal hernia. Lymph nodes Retroperitoneal: Subcentimeter nodes are noted most prominently at the level of the pancreatic head. Mesenteric: Subcentimeter lymph nodes are noted. Pelvic: Unremarkable. Peritoneum: Normal Vessels: Atherosclerotic calcifications are seen. Abdominal wall: Bilateral fat-containing inguinal hernias are seen. Small fat containing umbilical hernia is seen. Bones: Degenerative changes in the visualized spine. IMPRESSION: 1. Fat stranding and edema about the pancreatic head likely representing acute pancreatitis. Calcifications in the pancreatic parenchyma may represent chronic pancreatitis changes. 2. Mild dilation of the intra and extrahepatic bile ducts which may be secondary to pancreatic inflammation. ACT 112: Negative or not required by law. Electronically signed by: Vadim Cunha M.D. 08/20/2021 7:36 AM Gallbladder Ultrasound 08/20/21 05:55 US gallbladder CLINICAL HISTORY: ruq tenderness TECHNIQUE: Multiple real-time sonographic images of the right upper quadrant were obtained. Comparison: Comparison is made to ultrasound 09/10/[address] abdomen pelvis 08/20/2021 FINDINGS: The liver is diffusely homogenous with normal contour and echogenicity. No focal mass lesions are seen. No intrahepatic ductal dilatation is seen. The gallbladder is distended. Low level internal echoes are identified layering dependently within the gallbladder, which is consistent with gallbladder sludge. The gallbladder wall measures 4 mm in diameter. A 6 mm echogenic stone is seen. There is no pericholecystic fluid present. The common duct measures 0.6 cm in diameter at the level of the hepatic artery. Patient is mildly tender during the exam. The distal pancreas is not visualized due to overlying bowel gas. The visualized portions of the pancreas are unremarkable. The right kidney shows normal echogenicity, cortical thickness and renal contour. The right kidney shows no evidence of hydronephrosis or mass. No ascites or free fluid is seen in Carreon's pouch. IMPRESSION: 1. Distended gallbladder with sludge and stones and minimal wall thickening. Cystitis cannot be excluded, although this may also represent secondary changes from pancreatitis. 2. Findings of acute pancreatitis were not reproduced due to limited visualization of the pancreas. ACT 112: Negative or not required by law. Electronically signed by: Vadim Cunha M.D. 08/20/2021 8:40 AM Medications Administered Current Inpatient Medications Acetaminophen (Acetaminophen 325 Mg Tab) 650 mg PO Q6H PRN PRN Reason: Fever/pain Stop: 09/19/21 09:00 Aspirin (Aspirin 81 Mg Ectab) [facility] Stop: 09/19/21 09:29 Last Admin: 08/20/21 10:34 Dose: 81 mg Documented by: Ezetimibe (Ezetimibe 10 Mg Tablet) [facility] [place] Stop: 09/19/21 09:29 Last Admin: 08/20/21 10:34 Dose: 10 mg Documented by: Enoxaparin Sodium (Enoxaparin Inj 40 Mg/0.4 Ml Syr) [facility] [place] Stop: 09/19/21 09:29 Last Admin: 08/20/21 10:33 Dose: Not Given Documented by: Famotidine (Famotidine 40 Mg Tablet) 40 mg PO HS [facility] Stop: 09/19/21 20:59 Promethazine HCl 12.5 mg/ (Sodium Chloride) 50.5 mls @ 202 mls/hr IV Q6H PRN PRN Reason: Nausea And Vomiting Stop: 09/19/21 09:00 Lorazepam (Ativan) 0.5 mg in 1 mls @ 1 mls/min IV Q4H PRN PRN Reason: Anxiety/Agitation Stop: 09/19/21 09:00 Lactated Ringer's (Lr) 1,000 mls @ 200 mls/hr IV .Q5H [facility] Stop: 09/19/21 10:59 Last Admin: 08/20/21 15:00 Dose: 200 mls/hr Documented by: Piperacillin Sod/Tazobactam (Sod 3.375 gm/ Dextrose) 115 mls @ 28.75 mls/hr IV Q8H [facility]; Protocol Stop: 08/30/21 13:59 Isosorbide Mononitrate (Isosorbide [place] Extended Rel 60 Mg Tabcr) 60 mg PO DAILY [facility] Stop: 09/19/21 09:29 Last Admin: 08/20/21 10:34 Dose: 60 mg Documented by: Metoprolol Succinate (Metoprolol Succ 25mg Ext Rel Tab) [facility] [place] Stop: 09/19/21 09:29 Last Admin: 08/20/21 10:34 Dose: 25 mg Documented by: Miscellaneous Information (Piperacill/Tazobac Consult Active) 1 ea N/A UD PRN PRN Reason: Consult Stop: 09/19/21 12:23 Morphine Sulfate (Morphine Sulfate 4 Mg/Ml 1 Ml Carp\Vial) 4 mg IV Q4H PRN PRN Reason: Pain Stop: 09/03/21 09:00 Last Admin: 08/20/21 14:07 Dose: 4 mg Documented by: Pantoprazole Sodium (Pantoprazole 40 Mg Tab) 40 mg PO QAM [facility] Stop: 09/19/21 09:29 Last Admin: 08/20/21 10:34 Dose: 40 mg Documented by: Sertraline HCl (Sertraline Hcl 50 Mg Tablet) [facility] [place] Stop: 09/19/21 09:44 Last Admin: 08/20/21 14:03 Dose: 50 mg Documented by: Ticagrelor (Ticagrelor 90 Mg Tab) 90 mg PO BID [facility] Stop: 09/19/21 09:44 Last Admin: 08/20/21 10:34 Dose: 90 mg Documented by: Tramadol HCl (Tramadol Hcl 50 Mg Tablet) 25 - 50 mg PO Q4H PRN PRN Reason: Pain Stop: 09/19/21 09:00 Last Admin: 08/20/21 10:55 Dose: 50 mg Documented by:
--- NOTE | 2021-08-20 19:52 | Magnetic Resonance Report ---
MRCP CLINICAL HISTORY: suspected gallstone panc, CBD 6 mm, LFTs normal TECHNIQUE: Utilizing a 1.5 Padmini magnet and dedicated coil, multiplanar, multiecho imaging of the [facility] er abdomen was performed utilizing heavily T2 weighted pulsing sequences without IV contrast. COMPARISON STUDY: MRCP October 26, 2013. CT of the abdomen and pelvis and right upper quadrant ultra sound August 20, 2021. FINDINGS: There is no intra or extra hepatic biliary ductal dilatation. Common bile duct measures 5 m m in caliber. Sensitivity for detection of distal common bile duct calculi is diminished on this exam but none are identified. Gallbladder distention is unchanged. There is no pericholecystic fluid or i nfiltration. A 4 mm gallstone within the gallbladder is noted. Suspected diverticula of the second po rtion of the duodenum are noted. There is minimal infiltration adjacent to the pancreatic head and un cinate process. No pancreatic ductal dilatation. The course and caliber of the main pancreatic duct i s normal. No peripancreatic fluid collection is present. Sensitivity for detection of pancreatic mass is diminished on this unenhanced exam. IMPRESSION: 1. No biliary ductal dilatation. Decreased sensitivity for detection of common bile duct calculi give n motion artifact but none identified. 2. Mild infiltration adjacent to the pancreatic head and uncinate process suggestive of acute pancrea titis. No peripancreatic fluid collection. No pancreatic ductal dilatation. 3. No change in gallbladder distention. No gallbladder wall thickening or pericholecystic infiltratio n. 4 mm gallstone within the gallbladder. ACT 112: Negative or not required by law. Electronically signed by: Urban Eastman M.D. 08/20/2021 7:51 PM
[2021-08-20] MEDS: PIPERACILLIN/TAZOBACTAM 3.375 GM in DEXTROSE 5% 100 ML IV SCH (20:03)
[2021-08-20] MEDS: FAMOTIDINE 40 MG TABLET PO SCH (20:06)
[2021-08-21] MEDS: LACTATED RINGER'S 1,000 ML IV SCH ×5 (00:56→21:27)
[2021-08-21] MEDS: PIPERACILLIN/TAZOBACTAM 3.375 GM in DEXTROSE 5% 100 ML IV SCH ×3 (04:22→19:55)
[2021-08-21 08:33] LABS: Basophils # (auto) 0.03 K/uL (0-0.2); Basophils % (auto) 0.5 %; Eosinophils # (auto) 0.18 K/uL (0-0.5); Hematocrit (blood only) 33.6 % (42-52); Hemoglobin 11.7 g/dL (14.0-18.0); Immature Granulocytes # (auto) 0.01 K/uL (0.00-0.02); Immature Granulocytes % (auto) 0.2 %; Lymphocytes # (auto) 1.18 K/uL (1.2-3.4); Lymphocytes % (auto) 19.9 %; Mean Corpuscular Hemoglobin 33.2 pg (25-34); Mean Corpuscular Hgb Conc 34.8 g/dL (32-36); Mean Corpuscular Volume 95.5 fL (80-100); Mean Platelet Volume 8.9 fL (7.4-10.4); Monocytes # (auto) 0.35 K/uL (0.11-0.59); Monocytes % (auto) 5.9 %; Neutrophils # (auto) 4.18 K/uL (1.4-6.5); Neutrophils % (auto) 70.5 %; Platelet Count 220 K/uL (130-400); RDW Coefficient of Variation 13.8 % (11.5-14.5); RDW Standard Deviation 48.1 fL (36.4-46.3); Red Blood Count 3.52 M/uL (4.7-6.1); White Blood Count 5.93 K/uL (4.8-10.8)
--- NOTE | 2021-08-21 08:59 | Gastroenterology Progress Note ---
Date of Service August 21, 2021 Assessment & Plan (1) Recurrent pancreatitis: Plan: 50 year old male admitted w/ recurrent pancreatitis, onset of abdominal pain on Wednesday w/ nausea w/o vomiting. CTAP and ABD US shows edema about the pancreatic head, gallbladder sludge/stones and questionable cholecystitis. LFTs unremarkable on admission. Repeat LFTs show elevated transaminases w/ normal tbili. Recommend general surgery consultation NPO after 2400 Will tentatively list for EUS +/- ERCP in the OR 08/22/21 Start IV LR 200 mL/hr Continue analgesia as needed Continue antiemetics as needed Check triglycerides Repeat LFTs tomorrow Thank you for allowing us to participate in the care of this patient. Please call with any acute changes, questions or concerns. Please see addendum below with additional recommendation from my supervising physician. Admission and Anticipated Discharge Date Admission Date: August 20, 2021 Supervising Physician Co-Signing Physician Notes I have personally seen and examined the patient with HAKAN Melendrez. Her note reflects my exam and findings. I agree with her impression and plan. Liver enzymes increased, may be from edema of pancreatic head but will arrange EUS. Abdiel Dyer M.D. Subjective Pt was seen and evaluated, chart reviewed. Feeling better today. Less pain. No nausea, vomiting. Transaminases up overnight. MRCP was poor quality study but did not reveal overt choledocholithiasis, Review of Systems Review of Systems: All systems reviewed & are unremarkable except as noted in HPI & below Physical Exam Constitutional: WD/WN, vitals as above Neck: trachea midline, no thyromegaly Respiratory: normal respiratory effort; no respiratory distress, no labored breathing, no retractions, does not use accessory muscles and no cough Cardiovascular: Rate/Rhythm: regular rate and regular rhythm Heart Sounds: no click and no cardiac rub Gastrointestinal (Abdomen): Inspection/Auscultation: abdomen normal to inspection and normal bowel sounds; abdomen not distended, no abdominal edema and no significant pannus Percussion/Palpation: + abdomen tender and abdomen soft; no guarding, abdomen not rigid, no abdominal mass and no ascites Skin: no rashes, warm and dry Results & Data ([facility]) Vital Signs (Past 12 Hours) Vital Signs Temp Pulse Resp BP Pulse Ox 08/21/21 07:10 37.0 C 80 16 104/63 96 08/20/21 23:21 36.6 C 75 16 97/56 L 94 Laboratory Results 08/21/21 08/21/21 08/20/21 Range/Units 07:34 07:34 10:14 WBC 5.93 (4.8-10.8) K/uL RBC 3.52 L (4.7-6.1) M/uL Hgb 11.7 L D (14.0-18.0) g/dL Hct 33.6 L (42-52) % MCV 95.5 (80-100) fL MCH 33.2 (25-34) pg MCHC 34.8 (32-36) g/dL RDW Std Deviation 48.1 H (36.4-46.3) fL RDW Coeff of [place]ck[place] 13.8 (11.5-14.5) % Plt Count 220 (130-400) K/uL MPV 8.9 (7.4-10.4) fL Immature Gran % (Auto) 0.2 % Neut % (Auto) 70.5 % Lymph % (Auto) 19.9 % Ralls % (Auto) 5.9 % Eos % (Auto) 3.0 % Baso % (Auto) 0.5 % Neut # (Auto) 4.18 (1.4-6.5) K/uL Lymph # (Auto) 1.18 L (1.2-3.4) K/uL Ralls # (Auto) 0.35 (0.11-0.59) K/uL Eos # (Auto) 0.18 (0-0.5) K/uL Baso # (Auto) 0.03 (0-0.2) K/uL Immature Gran # (Auto) 0.01 (0.00-0.02) K/uL Sodium Pending Potassium Pending Chloride Pending Carbon Dioxide Pending Anion Gap Pending BUN Pending Creatinine Pending Est Cr Clr Drug Dosing Pending Est GFR ( Amer) Pending Est GFR (Non-Af Amer) Pending BUN/Creatinine Ratio Pending Glucose Pending Calcium Pending Phosphorus Pending Magnesium Pending Total Bilirubin Pending 0.9 D (0.2-1) mg/dl Direct Bilirubin 0.5 H (0-0.2) mg/dl AST Pending 210 H (15-37) U/L ALT Pending 84 H (12-78) U/L Alkaline Phosphatase Pending 179 H D (45-117) U/L Total Protein Pending 7.3 (6.4-8.2) gm/dl Albumin Pending 3.5 (3.4-5.0) gm/dl Globulin Pending Albumin/Globulin Ratio Pending Triglycerides Pending
[2021-08-21 09:00] LABS: Albumin Level 2.6 gm/dl (3.4-5.0); BUN Creatinine Ratio 12.2 (10-20); Calcium 8.5 mg/dl (8.5-10.1); Creatinine Clr Calc Pharmacy 85.5 ml/min; Est GFR (African American) 117.5 ml/min; Est GFR (Non-African American) 101.4 ml/min; Magnesium 1.8 mg/dl (1.8-2.4); Phosphorus 2.5 mg/dl (2.5-4.9); Potassium 3.9 mmol/L (3.5-5.1)
[2021-08-21 09:03] LABS: Albumin Globulin Ratio 0.8 (0.9-2); Bilirubin,Total 0.7 mg/dl (0.2-1); Globulin 3.2 gm/dl (2.5-4.0); Total Protein 5.8 gm/dl (6.4-8.2)
[2021-08-21] MEDS: ASPIRIN 81 MG ECTAB PO SCH (09:11)
[2021-08-21] MEDS: METOPROLOL SUCC 25MG EXT REL TAB PO SCH (09:12)
[2021-08-21] MEDS: SERTRALINE HCL 50 MG TABLET PO SCH (09:12)
[2021-08-21] MEDS: ISOSORBIDE MONO EXTENDED REL 60 MG TABCR PO SCH (09:12)
[2021-08-21] MEDS: ENOXAPARIN INJ 40 MG/0.4 ML SYR SQ SCH (09:12)
[2021-08-21] MEDS: PANTOprazole 40 MG TAB PO SCH (09:12)
[2021-08-21] MEDS: EZETIMIBE 10 MG TABLET PO SCH (09:12)
[2021-08-21] MEDS: traMADol HCL 50 MG TABLET PO PRN (09:18)
--- NOTE | 2021-08-21 09:43 | Surgery Progress Note ---
Date of Service August 21, 2021 Assessment & Plan (1) Acute pancreatitis: Plan: Patient feels improvement in symptoms compared to admission. Abdomen less tender. No nausea/vomiting -WBC 5. LFTs improved Tbili: 0.7, AST: 33(210), ALT: 36 (814), AlkP: 115 (179) -MRCP obtained yesterday which was a limited study but showed: no biliary ductal dilatation, could not readily identify any CBD stones, acute pancreatitis, no pancreatic ductal dilation, 4mm gallstone within the GB -GI on board and considering EUS/ERCP tomorrow. Continue NPO with IVF -Continue to hold Brillanta for now as okay'd by cardiology and we will follow along for surgical planning Admission and Anticipated Discharge Date Admission Date: August 20, 2021 Supervising Physician Co-Signing Physician Notes pnt s&e, agree with above. feels better, pain improved. afvss, minimal abd ttp. lft's and wbc normal. MRCP somewhat inconclusive. EUS/ERCP tomorrow by GI, may add no cholecystectomy though had last brilanta dose on Wed. Subjective Patient reports feeling better today. Denies any nausea/vomiting. Says his abdominal pain is improved. Physical Exam Physical Exam: awake/alert Gastrointestinal (Abdomen): Percussion/Palpation: + abdomen tender (mildly tender to palpation in the epigastric and RUQ) and abdomen soft Results & Data ([facility]) Vital Signs (Past 12 Hours) Vital Signs Temp Pulse Resp BP Pulse Ox 08/21/21 07:10 37.0 C 80 16 104/63 96 08/20/21 23:21 36.6 C 75 16 97/56 L 94 PG Care Time/CCT Total # of Minutes Spent Total Time Spent with Patient: Total time spent is greater than 50% in coordination of care (as documented) at patient's floor/unit and/or counseling patient: Coding Level of Care Code 76745 Subseq Hosp Care Lvl 1 Diagnoses Acute pancreatitis K85.90
--- NOTE | 2021-08-21 10:57 | Cardiology Progress Note ---
Date of Service August 21, 2021 Assessment & Plan (1) Preop cardiovascular exam: (2) CAD (coronary artery disease): (3) Recurrent pancreatitis: Plan: 50-year-old patient with recurrent pancreatitis. Perioperative cardiovascular risk is intermediate due to complex coronary disease documented above with history of myocardial infarction with drug-eluting stent implantation 12/2020. ECG stable without ischemic changes. Patient's functional capacity is adequate (greater than 4 METS per history) without anginal symptoms. No further cardiac testing would lower patient's perioperative risk at this time. Hold dual antiplatelet therapy 72 hours prior to surgery. Risk of holding Brilinta including myocardial infarction and stent thrombosis discussed. Continue aspirin uninterrupted in addition to beta-shay therapy and isosorbide monohydrate. Admission and Anticipated Discharge Date Admission Date: August 20, 2021 Subjective Patient seen and examined at the bedside. Abdominal discomfort improved. Brilinta on hold. Denies chest pain or shortness of breath. No orthopnea, PND, lower extremity edema. Review of Systems Review of Systems: All systems reviewed & are unremarkable except as noted in Subjective Physical Exam Constitutional: well nourished; no acute distress and not ill appearing Respiratory: normal respiratory effort; no respiratory distress, no labored breathing and no retractions Auscultation: lungs clear to auscultation bilaterally; no crackles, no rales and no wheezes Cardiovascular: Rate/Rhythm: regular rate and regular rhythm Heart Sounds: normal S1 and normal S2; no gallop, no murmur and no cardiac rub Vessels: radial pulses present; no JVD and no carotid bruit Extremities: + edema Gastrointestinal (Abdomen): Inspection/Auscultation: abdomen normal to inspection; abdomen not distended and + abnormal bowel sounds (Hypoactive) Percussion/Palpation: + abdomen tender (epigastric) and abdomen soft; no guarding and abdomen not rigid Neurologic: CN's II-XI intact bilaterally and moves all extremities; no focal motor deficits Motor/Sensory: no tremor Psychiatric: A+Ox3, euthymic affect Results & Data ([facility]) Vital Signs (Past 12 Hours) Vital Signs Temp Pulse Resp BP Pulse Ox 08/21/21 07:10 37.0 C 80 16 104/63 96 08/20/21 23:21 36.6 C 75 16 97/56 L 94
--- NOTE | 2021-08-21 11:59 | Anesthesiology Consultation ---
Date of Service August 21, 2021 Assessment & Plan (1) Encounter for pre-operative examination: Chart Review Chart Review: Acceptable Risk for Surgery and Patient NOT seen in Pre Admission Testing Consults Requested none History Surgery Operation Date: 08/22/21 09:15 Proposed Procedures p Endoscopic Ultrasonography Upper - Kike Gross DO s Endoscopic Retrograde Cholangiopancreato - Kike Gross DO Height/Weight Height: 5 ft 5 in Weight: 58.1 kg Allergies Allergy/AdvReac Type Severity Reaction Status Date / Time No Known Allergies Allergy Verified 08/20/21 02:37 Medications Home Medications Medication Instructions Recorded Confirmed Last Taken aspirin 81 mg tablet,delayed 81 mg PO QAM 10/06/18 08/20/21 12/31/20 release sertraline 50 mg tablet (Zoloft) 50 mg PO QAM 10/06/18 08/20/21 12/31/20 nitroglycerin 0.4 mg sublingual 0.4 mg SUBLINGUAL UD PRN 10/07/18 08/20/21 12/06/20 00:00 tablet (Nitrostat) ticagrelor 90 mg tablet (Brilinta) 90 mg PO BID 30 Days #60 tab 08/11/20 08/20/21 12/31/20 dicyclomine 10 mg capsule 10 mg PO BID PRN 12/06/20 08/20/21 12/31/20 ezetimibe 10 mg tablet 10 mg PO QAM 12/06/20 08/20/21 12/31/20 famotidine 40 mg tablet 40 mg PO HS 12/06/20 08/20/21 12/31/20 isosorbide mononitrate 60 mg 60 mg PO DAILY 12/06/20 08/20/21 12/31/20 tablet,extended release 24 hr magnesium oxide 400 mg PO QAM 12/06/20 08/20/21 12/31/20 metoprolol succinate 25 mg 25 mg PO QAM 12/06/20 08/20/21 12/31/20 tablet,extended release 24 hr rosuvastatin 40 mg tablet 40 mg PO QAM 12/06/20 08/20/21 12/31/20 pantoprazole 40 mg tablet,delayed 40 mg PO QAM 08/20/21 08/20/21 Unknown release Active Medications Generic Name Dose Route Start Last Admin Trade Name Freq PRN Reason Stop Dose Admin Aspirin 81 mg 08/20/21 09:30 08/21/21 09:11 Aspirin 81 Mg Ectab PO 09/19/21 09:29 81 mg QAM ALYCIA Administration Ezetimibe 10 mg 08/20/21 09:30 08/21/21 09:12 Ezetimibe 10 Mg Tablet PO 09/19/21 09:29 10 mg QAM ALYCIA Administration Enoxaparin Sodium 40 mg 08/20/21 09:30 08/21/21 09:12 Enoxaparin Inj 40 Mg/0.4 Ml Syr SQ 09/19/21 09:29 Not Given QAM ALYCIA Famotidine 40 mg 08/20/21 21:00 08/20/21 20:06 Famotidine 40 Mg Tablet PO 09/19/21 20:59 40 mg HS ALYCIA Administration Lactated Ringer's 1,000 mls @ 200 mls/hr 08/20/21 11:00 08/21/21 10:18 Lr IV 09/19/21 10:59 200 mls/hr .Q5H ALYCIA Administration Piperacillin Sod/Tazobactam 115 mls @ 28.75 mls/hr 08/20/21 20:00 08/21/21 09:02 Sod 3.375 gm/ Dextrose IV 08/30/21 13:59 Infused Q8H ALYCIA Infusion Protocol Isosorbide Mononitrate 60 mg 08/20/21 09:30 08/21/21 09:12 Isosorbide [place] Extended Rel 60 Mg Tabcr PO 09/19/21 09:29 60 mg DAILY ALYCIA Administration Metoprolol Succinate 25 mg 08/20/21 09:30 08/21/21 09:12 Metoprolol Succ 25mg Ext Rel Tab PO 09/19/21 09:29 25 mg QAM ALYCIA Administration Morphine Sulfate 4 mg 08/20/21 09:01 08/20/21 14:07 Morphine Sulfate 4 Mg/Ml 1 Ml Carp\Vial IV 09/03/21 09:00 4 mg Q4H PRN Administration Pain Pantoprazole Sodium 40 mg 08/20/21 09:30 08/21/21 09:12 Pantoprazole 40 Mg Tab PO 09/19/21 09:29 40 mg QAM ALYCIA Administration Sertraline HCl 50 mg 08/20/21 09:45 08/21/21 09:12 Sertraline Hcl 50 Mg Tablet PO 09/19/21 09:44 50 mg QAM ALYCIA Administration Ticagrelor 90 mg 08/20/21 09:45 08/20/21 10:34 Ticagrelor 90 Mg Tab PO 09/19/21 09:44 90 mg BID ALYCIA Administration Tramadol HCl 25 - 50 mg 08/20/21 09:01 08/21/21 09:18 Tramadol Hcl 50 Mg Tablet PO 09/19/21 09:00 25 mg Q4H PRN Administration Pain Past Medical History Medical History (Updated 08/21/21 @ 12:03 by David Oviedo MD) Barretts esophagus CAD (coronary artery disease) 2018-RCA stent x 2 07/2020-STEMI, s/p PCI to left circumflex with 2 MELLY. Post procedure complicated by V. fib arrest requiring defibrillation. Depression RADHA (generalized anxiety disorder) GERD (gastroesophageal reflux disease) Grade II diastolic dysfunction HLD (hyperlipidemia) Pancreatitis Splenic infarct Tobacco abuse Past Family History Family History Other Diabetes Stroke Past Surgical History Surgical History History of vasectomy Social History Smoking Status: Current every day smoker tobacco type: cigarettes Smoking cigarettes per day: 2 Do You Dip or Chew Tobacco: No Hx Alcohol Use: No Hx Substance Use: No substance use type: does not use Physical Exam Vital Signs Last Vital Signs Temp 37.0 C 08/21/21 07:10 Pulse 80 08/21/21 07:10 Resp 16 08/21/21 07:10 BP 104/63 08/21/21 07:10 Pulse Ox 96 08/21/21 07:10 Testing Laboratory Results 08/21/21 07:34 08/21/21 07:34 Urine Color Yellow 08/20/21 04:00 Urine Appearance Clear (Clear) 08/20/21 04:00 Urine pH 6.5 (4.5-7.5) 08/20/21 04:00 Ur Specific [place] 1.021 (1.000-1.030) 08/20/21 04:00 Urine Protein Negative (Negative) 08/20/21 04:00 Urine Glucose (UA) Negative (Negative) 08/20/21 04:00 Urine Ketones Negative (Negative) 08/20/21 04:00 Urine Nitrite Negative (Negative) 08/20/21 04:00 Ur Leukocyte Esterase Negative (Negative) 08/20/21 04:00 Electrocardiogram Date: 08/20/21 DICTATED BY:Neo Garrett MD Test Reason : Blood Pressure : / mmHG Vent. Rate : 065 BPM Atrial Rate : 065 BPM P-R Int : 120 ms QRS Dur : 092 ms QT Int : 366 ms P-R-T Axes : 071 034 019 degrees QTc Int : 380 ms Normal sinus rhythm with sinus arrhythmia Incomplete right bundle branch block Borderline ECG When compared with ECG of 02-JAN-2021 06:03, No significant change was found Confirmed by Neo Garrett ([id number]) on 08/20/2021 1:45:33 PM Referred By: REFERRED SELF Confirmed By:Neo Garrett Echocardiogram Date: 01/02/21 EF: 55-60 LV Function: normal RWMA: + hypokinetic (mild posterior wall) Other Findings: + LVH (mild concentric) and + diastolic dysfunction (grade 2) Valvular Disease: + MR (mild) Other Testing CT abd pelvis IV con only CLINICAL HISTORY: Left and low abd pain TECHNIQUE: Helical axial images of the abdomen and pelvis were obtained and displayed. Automated dose lowering techniques and/or adjustment according to patient size were utilized for this exam. This exam was performed with intravenous contrast. COMPARISON: Comparison is made to CT abdomen pelvis 03/11/2020 FINDINGS: Lower chest: Bibasilar atelectasis is seen. There is suggestion of cardiomegaly. Liver: Unremarkable. No focal lesions are seen. Gallbladder and biliary tree: The gallbladder is markedly distended with small polyps versus stones noted. There is mild dilation of the intra and extra hepatic bile ducts, common bile duct measures 7 mm in diameter. Pancreas: There is fat stranding and edema about the pancreatic head. Calcifications in the pancreas and/or adjacent duodenum are seen. Spleen: Splenule is incidentally noted. Adrenals: Unremarkable. Kidneys and ureters: Previously noted renal cysts are stable. Bladder: Unremarkable. Reproductive organs: Unremarkable. Bowel: Diverticulosis is seen without evidence of diverticulitis. The appendix is unremarkable. There is a small hiatal hernia. Lymph nodes Retroperitoneal: Subcentimeter nodes are noted most prominently at the level of the pancreatic head. Mesenteric: Subcentimeter lymph nodes are noted. Pelvic: Unremarkable. Peritoneum: Normal Vessels: Atherosclerotic calcifications are seen. Abdominal wall: Bilateral fat-containing inguinal hernias are seen. Small fat containing umbilical hernia is seen. Bones: Degenerative changes in the visualized spine. IMPRESSION: 1. Fat stranding and edema about the pancreatic head likely representing acute pancreatitis. Calcifications in the pancreatic parenchyma may represent chronic pancreatitis changes. 2. Mild dilation of the intra and extrahepatic bile ducts which may be secondary to pancreatic inflammation. ACT 112: Negative or not required by law. Electronically signed by: Vadim Cunha M.D. 08/20/2021 7:36 AM
--- NOTE | 2021-08-21 14:28 | Hospitalist Progress Note ---
Date of Service August 21, 2021 Assessment & Plan (1) Gallbladder disease: (2) Recurrent pancreatitis: Plan: Patient presented with reports of abdominal pain, nausea, poor appetite x 4 days and was found to have recurrent pancreatitis. CT ABD/pelvis - Fat stranding and edema about the pancreatic head likely representing acute pancreatitis. Calcifications in the pancreatic parenchyma may represent chronic pancreatitis changes RUQ US - Distended gallbladder with sludge and stones and minimal wall thickening. Cystitis cannot be excluded, although this may also represent secondary changes from pancreatitis MRCP without biliary ductal dilatation. Mild infiltration adjacent to the pancreatic head and uncinate process suggestive of acute pancreatitis. No peripancreatic fluid collection. No pancreatic ductal dilatation. No change in gallbladder distention. No gallbladder wall thickening or pericholecystic infiltration. 4 mm gallstone within the gallbladder GI tentatively planning for EUS +/- ERCP in the OR 08/22/21 Per general surgery - continue NPO with IVF. Continue to hold Brilinta for now and will follow for surgical planning Cardiology following, recommend holding dual antiplatelet therapy 72 hours prior to surgery. Continue aspirin uninterrupted as well as beta-shay therapy and isosorbide monohydrate NPO, IVF, pain and nausea control Start IV Zosyn for possible acute cholecystitis (3) CAD (coronary artery disease): Plan: Appears stable, no reports of chest pain or recent anginal symptoms EKG without acute ST changes 2018-RCA stent x2, 07/2020-STEMI s/p PCI to left circumflex with 2 MELLY, 12/2020- NSTEMI s/p 3 Xience MELLY to the distal aspect of prior stent of the left posterior lateral branch vessel. Balloon angioplasty performed of prior distal circumflex stent. Pre-op eval by cardiology as detailed above (4) HLD (hyperlipidemia): Plan: Continue statin and Zetia (5) Barretts esophagus: Plan: Continue PPI (6) DVT prophylaxis: Plan: SQ Lovenox Patient seen in collaboration with Dr. Blunt. Please see addendum. Admission and Anticipated Discharge Date Admission Date: August 20, 2021 Supervising Physician Co-Signing Physician Notes Patient seen and examined by me, care coordinated with Grecia Steve PA-C, please refer to her note above for further detail. Currently patient is lying in bed, in no acute distress, feeling much better. He is alert oriented answering questions appropriately. He is mildly tender to palpation in epigastric region but this has improved. Abdomen is otherwise soft, positive bowel sounds. Heart sounds regular, lung sounds clear to auscult ation. No lower extremity edema noted. Patient moves extremities spontaneously and without difficulty. LFTs elevated today - plan for EUS/EGD by GI tomorrow. Possible add on cholecystectomy by gen. surgery as well. Pt has history of CAD and most recent PCI in December. Discussed with cardiology, and plan is to hold Brilinta for 3 days prior to surgery. Continue to closely monitor, continue IV fluids and IV antibiotics. Amelia Blunt MD Subjective Patient seen and examined in 379-1. Patient feeling well today. Denies any ihsan abdominal pain, just intermittent discomfort. Denies any fever, chills, lightheadedness, headache, chest pain, shortness of breath, nausea, vomiting, dysuria, diarrhea constipation. Review of Systems Review of Systems: At least ten systems reviewed and negative except as noted in the HPI. Physical Exam Physical Exam: Gen: WD/WN, NAD, lying in bed, A&Ox3 HEENT: Normocephalic, atraumatic, conjunctivae moist, sclerae anicteric, mucous membranes moist Lung: Clear to Auscultation bilaterally, no wheezes/rales/rhonchi Heart: Regular rate, regular rhythm, no murmurs, rubs, or gallops Abdomen: Soft, mild abd discomfort, ND +BS x 4 Extremities: no edema Skin: Warm, no rash Results & Data Results & Data ([facility]) Vital Signs (Past 12 Hours) Vital Signs Temp Pulse Resp BP Pulse Ox 08/21/21 07:10 37.0 C 80 16 104/63 96 Laboratory Results Short CBC 08/21/21 Range/Units 07:34 WBC 5.93 (4.8-10.8) K/uL Hgb 11.7 L D (14.0-18.0) g/dL Hct 33.6 L (42-52) % Plt Count 220 (130-400) K/uL BMP 08/21/21 07:34 Sodium 137 Potassium 3.9 Chloride 107 Carbon Dioxide 22 BUN 10 D Creatinine 0.84 Glucose 84 Calcium 8.5 Liver Function 08/21/21 Range/Units 07:34 Total Bilirubin 0.7 (0.2-1) mg/dl AST 33 (15-37) U/L ALT 36 (12-78) U/L Alkaline Phosphatase 115 (45-117) U/L Albumin 2.6 L (3.4-5.0) gm/dl Diagnostic Findings Abdomen/Pelvis CT 08/20/21 02:24 CT abd pelvis IV con only CLINICAL HISTORY: Left and low abd pain TECHNIQUE: Helical axial images of the abdomen and pelvis were obtained and displayed. Automated dose lowering techniques and/or adjustment according to patient size were utilized for this exam. This exam was performed with intravenous contrast. COMPARISON: Comparison is made to CT abdomen pelvis 03/11/2020 FINDINGS: Lower chest: Bibasilar atelectasis is seen. There is suggestion of cardiomegaly. Liver: Unremarkable. No focal lesions are seen. Gallbladder and biliary tree: The gallbladder is markedly distended with small polyps versus stones noted. There is mild dilation of the intra and extra hepatic bile ducts, common bile duct measures 7 mm in diameter. Pancreas: There is fat stranding and edema about the pancreatic head. Calcifications in the pancreas and/or adjacent duodenum are seen. Spleen: Splenule is incidentally noted. Adrenals: Unremarkable. Kidneys and ureters: Previously noted renal cysts are stable. Bladder: Unremarkable. Reproductive organs: Unremarkable. Bowel: Diverticulosis is seen without evidence of diverticulitis. The appendix is unremarkable. There is a small hiatal hernia. Lymph nodes Retroperitoneal: Subcentimeter nodes are noted most prominently at the level of the pancreatic head. Mesenteric: Subcentimeter lymph nodes are noted. Pelvic: Unremarkable. Peritoneum: Normal Vessels: Atherosclerotic calcifications are seen. Abdominal wall: Bilateral fat-containing inguinal hernias are seen. Small fat containing umbilical hernia is seen. Bones: Degenerative changes in the visualized spine. IMPRESSION: 1. Fat stranding and edema about the pancreatic head likely representing acute pancreatitis. Calcifications in the pancreatic parenchyma may represent chronic pancreatitis changes. 2. Mild dilation of the intra and extrahepatic bile ducts which may be secondary to pancreatic inflammation. ACT 112: Negative or not required by law. Electronically signed by: Vadim Cunha M.D. 08/20/2021 7:36 AM Gallbladder Ultrasound 08/20/21 05:55 US gallbladder CLINICAL HISTORY: ruq tenderness TECHNIQUE: Multiple real-time sonographic images of the right upper quadrant were obtained. Comparison: Comparison is made to ultrasound 09/10/[address] abdomen pelvis 08/20/2021 FINDINGS: The liver is diffusely homogenous with normal contour and echogenicity. No focal mass lesions are seen. No intrahepatic ductal dilatation is seen. The gallbladder is distended. Low level internal echoes are identified layering dependently within the gallbladder, which is consistent with gallbladder sludge. The gallbladder wall measures 4 mm in diameter. A 6 mm echogenic stone is seen. There is no pericholecystic fluid present. The common duct measures 0.6 cm in diameter at the level of the hepatic artery. Patient is mildly tender during the exam. The distal pancreas is not visualized due to overlying bowel gas. The visualized portions of the pancreas are unremarkable. The right kidney shows normal echogenicity, cortical thickness and renal contour. The right kidney shows no evidence of hydronephrosis or mass. No ascites or free fluid is seen in Carreon's pouch. IMPRESSION: 1. Distended gallbladder with sludge and stones and minimal wall thickening. Cystitis cannot be excluded, although this may also represent secondary changes from pancreatitis. 2. Findings of acute pancreatitis were not reproduced due to limited visualization of the pancreas. ACT 112: Negative or not required by law. Electronically signed by: Vdaim Cunha M.D. 08/20/2021 8:40 AM Cholangiopancreatography MRI 08/20/21 09:47 MRCP CLINICAL HISTORY: suspected gallstone panc, CBD 6 mm, LFTs normal TECHNIQUE: Utilizing a 1.5 Padmini magnet and dedicated coil, multiplanar, multiecho imaging of the upper abdomen was performed utilizing heavily T2 weighted pulsing sequences without IV contrast. COMPARISON STUDY: MRCP October 26, 2013. CT of the abdomen and pelvis and right upper quadrant ultrasound August 20, 2021. FINDINGS: There is no intra or extra hepatic biliary ductal dilatation. Common bile duct measures 5 mm in caliber. Sensitivity for detection of distal common bile duct calculi is diminished on this exam but none are identified. Gallbladder distention is unchanged. There is no pericholecystic fluid or i nfiltration. A 4 mm gallstone within the gallbladder is noted. Suspected diverticula of the second portion of the duodenum are noted. There is minimal infiltration adjacent to the pancreatic head and uncinate process. No pancreatic ductal dilatation. The course and caliber of the main pancreatic duct is normal. No peripancreatic fluid collection is present. Sensitivity for detection of pancreatic mass is diminished on this unenhanced exam. IMPRESSION: 1. No biliary ductal dilatation. Decreased sensitivity for detection of common bile duct calculi given motion artifact but none identified. 2. Mild infiltration adjacent to the pancreatic head and uncinate process suggestive of acute pancreatitis. No peripancreatic fluid collection. No pancreatic ductal dilatation. 3. No change in gallbladder distention. No gallbladder wall thickening or pericholecystic infiltration. 4 mm gallstone within the gallbladder. ACT 112: Negative or not required by law. Electronically signed by: Urban Eastman M.D. 08/20/2021 7:51 PM
[2021-08-21] MEDS: FAMOTIDINE 40 MG TABLET PO SCH (19:55)
[2021-08-22] MEDS: LACTATED RINGER'S 1,000 ML IV SCH ×5 (02:31→21:59)
[2021-08-22] MEDS: PIPERACILLIN/TAZOBACTAM 3.375 GM in DEXTROSE 5% 100 ML IV SCH ×3 (03:51→22:00)
[2021-08-22 07:13] LABS: Basophils # (auto) 0.02 K/uL (0-0.2); Basophils % (auto) 0.4 %; Eosinophils # (auto) 0.15 K/uL (0-0.5); Hematocrit (blood only) 35.4 % (42-52); Hemoglobin 12.3 g/dL (14.0-18.0); Lymphocytes # (auto) 1.29 K/uL (1.2-3.4); Lymphocytes % (auto) 25.6 %; Mean Corpuscular Hemoglobin 33.9 pg (25-34); Mean Corpuscular Hgb Conc 34.7 g/dL (32-36); Mean Corpuscular Volume 97.5 fL (80-100); Mean Platelet Volume 9.1 fL (7.4-10.4); Monocytes # (auto) 0.43 K/uL (0.11-0.59); Monocytes % (auto) 8.5 %; Neutrophils # (auto) 3.14 K/uL (1.4-6.5); Neutrophils % (auto) 62.5 %; Platelet Count 209 K/uL (130-400); RDW Coefficient of Variation 13.4 % (11.5-14.5); RDW Standard Deviation 48.2 fL (36.4-46.3); Red Blood Count 3.63 M/uL (4.7-6.1); White Blood Count 5.03 K/uL (4.8-10.8)
[2021-08-22 07:58] LABS: Albumin Level 2.5 gm/dl (3.4-5.0); BUN Creatinine Ratio 7.5 (10-20); Bilirubin Direct 0.2 mg/dl (0-0.2); Calcium 8.3 mg/dl (8.5-10.1); Creatinine Clr Calc Pharmacy 85.5 ml/min; Est GFR (African American) 117.5 ml/min; Est GFR (Non-African American) 101.4 ml/min; Potassium 3.7 mmol/L (3.5-5.1)
[2021-08-22 07:59] LABS: Bilirubin,Total 0.6 mg/dl (0.2-1); Total Protein 5.8 gm/dl (6.4-8.2)
[2021-08-22] MEDS: SERTRALINE HCL 50 MG TABLET PO SCH (08:35)
[2021-08-22] MEDS: EZETIMIBE 10 MG TABLET PO SCH (08:35)
[2021-08-22] MEDS: ISOSORBIDE MONO EXTENDED REL 60 MG TABCR PO SCH (08:36)
[2021-08-22] MEDS: METOPROLOL SUCC 25MG EXT REL TAB PO SCH (08:36)
[2021-08-22] MEDS: ASPIRIN 81 MG ECTAB PO SCH (08:36)
[2021-08-22] MEDS: PANTOprazole 40 MG TAB PO SCH (08:36)
[2021-08-22] MEDS ORDERED: BUPIVACAINE 0.5 % 5 MG/1 ML MPF 30ML VIAL ONE (08:42)
[2021-08-22] MEDS ORDERED: INDOMETHACIN 50 MG SUPP PR ONE ×2 (08:43→08:50)
[2021-08-22] MEDS ORDERED: ONDANSETRON INJ 2 MG/ML 2 ML VIAL ONE (08:46)
[2021-08-22] MEDS ORDERED: fentaNYL citrate 100 MCG/2 ML VIAL ONE ×2 (08:46→11:41)
[2021-08-22] MEDS ORDERED: MIDAZOLAM HCL 1 MG/ML 2ML VIAL ONE (08:46)
[2021-08-22] MEDS ORDERED: PROPOFOL IV EMULSION 10 MG/ML 20 ML VIAL IV ONE (08:46)
[2021-08-22] MEDS ORDERED: LIDOCAINE 2% 2 ML VIAL/AMP(20MG/ML) INFIL ONE (08:46)
--- NOTE | 2021-08-22 08:49 | History & Physical Bridge Note ---
Date of Service August 22, 2021 History & Physical Bridge Note I have examined the patient, reviewed the History & Physical and in the interval since the performance of the History & Physical I have noted the following changes of clinical significance: no changes noted. The patient presented with suspicion for common bile duct stones. We are planning to do an upper endoscopy with endoscopic ultrasound this morning and possible ERCP if choledocholithiasis is seen. Following the ERCP Dr. Davidson is planning to proceed with cholecystectomy today. I have discussed the risks and benefits of endoscopic ultrasound upper endoscopy and ERCP with the patient to include bleeding, infection, perforation, pain, pancreatitis and failed biliary cannulation.
[2021-08-22] MEDS ORDERED: ONDANSETRON INJ 2 MG/ML 2 ML VIAL IV PRN (09:00)
[2021-08-22] MEDS ORDERED: ePHEDrine sulfate 50 MG/ML AMP IV PRN (09:00)
[2021-08-22] MEDS ORDERED: fentaNYL citrate 100 MCG/2 ML VIAL IV PRN (09:00)
[2021-08-22] MEDS ORDERED: ATROPINE SULFATE 0.1 MG/ML 10ML SYR IV PRN (09:00)
--- NOTE | 2021-08-22 09:15 | Surgery Progress Note ---
Date of Service August 22, 2021 Assessment & Plan (1) Acute pancreatitis: Plan: 50 y/o male with acute gallstone pancreatitis eus/ercp today plan for laparoscopic cholecystectomy with possible cholangiogram risks discussed to include bleeding, infection, retained stone, bile leak, open surgery, damage to surrounding structures, and risks of anesthesia Admission and Anticipated Discharge Date Admission Date: August 20, 2021 Subjective 50 y/o male with gallstone pancreatitis, symptoms resolved. Physical Exam Constitutional: WD/WN, vitals as above Gastrointestinal (Abdomen): normal bowel sounds, soft, nontender, no hepat osplenomegaly Results & Data ([facility]) Vital Signs (Past 12 Hours) Vital Signs Temp Pulse Resp BP Pulse Ox 08/22/21 07:41 36.8 C 75 16 126/80 96 08/21/21 23:30 36.8 C 78 16 121/70 96 PG Care Time/CCT Total # of Minutes Spent Total Time Spent with Patient: Total time spent is greater than 50% in coordination of care (as documented) at patient's floor/unit and/or counseling patient: Coding Level of Care Code 24082 Inpt Consult Level 2 Diagnoses Acute pancreatitis K85.90
[2021-08-22] MEDS ORDERED: ROCURONIUM BROMIDE 10 MG/ML 5 ML VIAL IV ONE (10:44)
--- NOTE | 2021-08-22 11:05 | Post Operative Brief Note ---
Immediate Post Op Note v1 Date of Surgery August 22, 2021 Pre & Post Diagnosis Operation Date: 08/22/21 09:15 Pre-Op Diagnosis: Gallstone Pancreatitis I identified the patient and participated in the time-out.: Yes Procedure Operation Date: 08/22/21 09:15 Actual Procedures p Endoscopic Ultrasonography Upper, Esophagogastroduodenoscopy(Not Applicable) - DO annita Mendez Endoscopic Retrograde Cholangiopancreatomy with stent placement, shpincterotomy(Not Applicable) - Kike Gross DO Surgeon Kike Gross DO Cabinet Worker none Estimated Blood Loss 0 Findings Consistent with Post-Op Diagnosis
--- NOTE | 2021-08-22 11:16 | GI REPORT ---
Patient Name: Oc Cazares Procedure Date: 08/22/2021 9:34 AM Date of : 1970 Admit Type: Inpatient Age: 50 Gender: Male Attending MD: Kike Gross DO Procedure: Upper GI endoscopy Providers: Kike Gross DO Referring MD: Taras Davidson Do, Wade Bragg, Regino Blunt Md Indications: Epigastric abdominal pain Medicines: General Anesthesia Complications: No immediate complications. Estimated blood loss: Minimal. Estimated Blood Loss: Estimated blood loss was minimal. Procedure: Pre-Anesthesia Assessment: - Prior to the procedure, a History and Physical was performed, and patient medications, allergies and sensitivities were reviewed. The patient's tolerance of previous anesthesia was reviewed. - The risks and benefits of the procedure and the sedation options and risks were discussed with the patient. All questions were answered and informed consent was obtained. - Patient identification and proposed procedure were verified prior to the procedure by the physician, the nurse and the masonry installer. The procedure was verified in the procedure room. - Pre-procedure physical examination revealed no contraindications to sedation. - ASA Grade Assessment: III - A patient with severe systemic disease. - After reviewing the risks and benefits, the patient was deemed in satisfactory condition to undergo the procedure. - The anesthesia plan was to use general anesthesia. - Immediately prior to administration of medications, the patient was re-assessed for adequacy to receive sedatives. - The heart rate, respiratory rate, oxygen saturations, blood pressure, adequacy of pulmonary ventilation, and response to care were monitored throughout the procedure. - The physical status of the patient was re-assessed after the procedure. After obtaining informed consent, the endoscope was passed under direct vision. Throughout the procedure, the patient's blood pressure, pulse, and oxygen saturations were monitored continuously. The Endoscope was introduced through the mouth, and advanced to the third part of duodenum. The upper GI endoscopy was accomplished without difficulty. The patient tolerated the procedure well. Findings: The esophagus and gastroesophageal junction were examined with white light. 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 These changes involved the mucosa at the upper extent of the gastric folds (36 cm from the incisors) extending to the Z-line (31 cm from the incisors). The maximum longitudinal extent of these esophageal mucosal changes was 5 cm in length. Mucosa was biopsied with a cold forceps for histology. A total of 3 specimen bottles were sent to pathology. The pathology specimen was placed into Bottle B (35 cm), C (33 cm) and D (31 cm). Estimated blood loss was minimal. Diffuse mild inflammation characterized by congestion (edema), erythema and granularity was found in the entire examined stomach. Biopsies were taken with a cold forceps for histology. The pathology specimen was placed into Bottle A. Estimated blood loss was minimal. Localized mild inflammation characterized by erythema and granularity was found in the duodenal bulb. The second portion of the duodenum and third portion of the duodenum were normal. 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 Biopsied. - Gastritis. Biopsied. - Duodenitis. - Normal second portion of the duodenum and third portion of the duodenum. Recommendation: - Await pathology results. - Use Prilosec (omeprazole) 20 mg PO daily. - Repeat upper endoscopy in 1 year for surveillance. Kike Gross D.O. Kike Gross, 08/22/2021 11:16:04 AM This report has been signed electronically. Note Initiated On: 08/22/2021 9:34 AM Number of Addenda: 0 I attest to the content of the Intraoperative Record and orders documented therein, exceptions below {[id number]}
[2021-08-22] MEDS ORDERED: GLUCAGON FOR INJ 1 MG VIAL ONE (11:21)
--- NOTE | 2021-08-22 11:22 | GI REPORT ---
Patient Name: Oc Cazares Procedure Date: 08/22/2021 9:33 AM Date of : 1970 Admit Type: Inpatient Age: 50 Gender: Male Attending MD: Kike Gross DO Procedure: Upper EUS Providers: Kike Gross DO Referring MD: Wade Bragg, Regino Blunt Md, Taras Davidson Do Indications: Elevated liver enzymes, Suspected choledocholithiasis Medicines: General Anesthesia Complications: No immediate complications. Estimated blood loss: Minimal. Estimated Blood Loss: Estimated blood loss was minimal. Procedure: Pre-Anesthesia Assessment: - Prior to the procedure, a History and Physical was performed, and patient medications, allergies and sensitivities were reviewed. The patient's tolerance of previous anesthesia was reviewed. - The risks and benefits of the procedure and the sedation options and risks were discussed with the patient. All questions were answered and informed consent was obtained. - Patient identification and proposed procedure were verified prior to the procedure by the physician, the nurse and the breaker table worker. The procedure was verified in the procedure room. - Pre-procedure physical examination revealed no contraindications to sedation. - ASA Grade Assessment: III - A patient with severe systemic disease. - After reviewing the risks and benefits, the patient was deemed in satisfactory condition to undergo the procedure. - The anesthesia plan was to use general anesthesia. - Immediately prior to administration of medications, the patient was re-assessed for adequacy to receive sedatives. - The heart rate, respiratory rate, oxygen saturations, blood pressure, adequacy of pulmonary ventilation, and response to care were monitored throughout the procedure. - The physical status of the patient was re-assessed after the procedure. After obtaining informed consent, the endoscope was passed under direct vision. Throughout the procedure, the patient's blood pressure, pulse, and oxygen saturations were monitored continuously. The Endosonoscope was introduced through the mouth, and advanced to the second part of duodenum. The upper EUS was accomplished without difficulty. The patient tolerated the procedure well. Findings: ENDOSONOGRAPHIC FINDING: : Periampullary diverticulum There was dilation in the common bile duct which measured up to 7 mm. One stone was visualized endosonographically in the common bile duct. It was hyperechoic and characterized by shadowing. Many stones were visualized endosonographically in the gallbladder. They were hyperechoic and characterized by shadowing. There was no sign of significant endosonographic abnormality in the visualized portion of the liver. Homogeneous parenchyma and no focal pathology were identified. Pancreatic parenchymal abnormalities were noted in the entire pancreas. These consisted of lobularity. One benign lymph node was visualized in the annie hepatis region. This was one mm from the primary tumor. It measured 11 mm by 11 mm in maximal cross-sectional diameter. The node was oval, hypoechoic and had well defined margins. There was no sign of significant endosonographic abnormality in the left adrenal gland. No adrenal gland enlargement was identified. Impression: - There was dilation in the common bile duct which measured up to 7 mm. - One stone was visualized endosonographically in the common bile duct. - Many stones were visualized endosonographically in the gallbladder. - There was no evidence of significant pathology in the visualized portion of the liver. - Pancreatic parenchymal abnormalities consisting of lobularity were noted in the entire pancreas. - One benign lymph node was visualized in the annie hepatis region. Tissue has not been obtained. However, the endosonographic appearance is consistent with benign inflammatory changes. - Endosonographic images of the left adrenal gland were unremarkable. - No specimens collected. Recommendation: - Perform an ERCP today. Kike Gross D.O. Kike Gross, 08/22/2021 11:22:09 AM This report has been signed electronically. Note Initiated On: 08/22/2021 9:33 AM Number of Addenda: 0 I attest to the content of the Intraoperative Record and orders documented therein, exceptions below {[id number]}
[2021-08-22] MEDS: cefOXitin 2,000 MG in DEXTROSE 5% 50 ML IV ONE ×2 (11:32→14:10)
[2021-08-22] MEDS ORDERED: SURGICEL ABSORB HEMOSTAT 2IN X 14IN TOP ONE (12:15)
--- NOTE | 2021-08-22 12:38 | Operative Report ---
[facility] Post Operative Report Pre & Post Diagnosis Operation Date: 08/22/21 09:15 Pre-Op Diagnosis: Gallstone Pancreatitis Post-Op Diagnosis: Gallstone pancreatitis, acute cholecystitis I identified the patient and participated in the time-out.: Yes Procedure Operation Date: 08/22/21 09:15 Actual Procedures Laparoscopic Cholecystectomy(Not Applicable) - Taras Davidson DO, FACS Surgeon Taras Davidson DO, LAURA Design Printer Balloon Mayi Purdy Estimated Blood Loss 20 Findings Consistent with Post-Op Diagnosis Distended gallbladder with moderate acute inflammation. Critical view of safety obtained, cystic duct and artery doubly clipped and divided. Bleeding of the liver bed secondary to Brilinta controlled with cautery and Surgicel. Good hemostasis. Specimens Gallbladder Anesthesia Type General Complications none Disposition Accompanied Patient To Recovery: No Disposition: Recovery Room Indications 50-year-old male admitted with gallstone pancreatitis and acute cholecystitis, plan for laparoscopic cholecystectomy with possible cholangiogram. Patient has been off of his Brilinta since Wednesday. Patient planned for EUS/ERCP with GI prior to procedure. The risks of the procedure were discussed, all questions were answered, and the patient agreed to proceed with surgery as planned. Description of Procedure The patient was properly identified, consented, and taken to the operating room where he was placed in the supine position. General endotracheal anesthesia was induced. SCDs and a safety belt were placed. Preoperative antibiotics were administered. The patient's abdomen was prepped and draped in the standard sterile fashion. A surgical timeout was performed and all parties were in agreement that this was the correct patient and procedure to be performed and we continued as planned. An endoscopic ultrasound and ERCP was performed by Dr. Gross with GI prior to cholecystectomy, see his procedure note for further details. An incision was made superior and to the left of the umbilicus overlying the rectus muscle and the Veress needle was inserted. Saline drop test confirmed entry into the peritoneum. The abdomen was insufflated with carbon dioxide which the patient tolerated without incident. The abdomen was then entered using the Optiview technique and a 5 mm trocar. The laparoscope was inserted and no damage from initial trocar or Veress needle placement was noted, no gross abnormalities were noted within the 4 quadrants of the abdomen. An 11 mm port was placed in the subxiphoid position and two 5 mm ports were then placed in the right subcostal position. The patient was placed in reverse Trendelenburg position and rotated towards the left. The gallbladder was distended and moderately inflamed. The dome of the gallbladder was retracted towards the left upper quadrant and the infundibulum was retracted toward the right lower quadrant revealing Calot's triangle. Peritoneal attachments were taken down with electrocautery and blunt dissection. The cystic duct and artery were circumferentially dissected. A window of safety was obtained showing the cystic duct entering the gallbladder with no aberrant structures noted. The cystic duct and artery were doubly clipped and divided. The gallbladder was then lifted off the gallbladder fossa with electrocautery. The gallbladder was placed in an Endo Catch bag and removed through the subxiphoid port site. Bleeding from the liver bed was controlled with electrocautery and placement of Surgicel. A Ray-Anders was placed and pressure was held for 5 minutes. The Ray-Anders was removed and hemostasis appeared adequate. The right upper quadrant was irrigated and hemostasis was found to be good. Surgicel was left in the liver bed. 5 mm trochars were removed under direct visualization and the abdomen was allowed to collapse. The subxiphoid port site fascia was closed with 0 Vicryl suture utilizing the Roberto-Cristian device prior to removal of the ports The wound was irrigated, and the skin of all ports was closed with 4-0 Monocryl subcuticular sutures. Dermabond was placed over the wounds. The patient was extubated in the operating room and taken to the PACU where he recovered without apparent incident. All sponge, instrument and needle counts were correct at the conclusion of the procedure. The patient tolerated the procedure well. The physician's assistant case manager was present and scrubbed for the entirety of the case and was essential in positioning the patient, prepping and draping, retraction and exposure, driving the laparoscope, removal of the gallbladder, closure the incisions, and placement of the dressings. I attest to the content of the Intraoperative Record and any orders documented therein. Any exceptions are noted below.
--- NOTE | 2021-08-22 12:40 | GI REPORT ---
Patient Name: Oc Cazares Procedure Date: 08/22/2021 9:35 AM Date of : 1970 Admit Type: Inpatient Age: 50 Gender: Male Attending MD: Kike Gross DO Procedure: ERCP Providers: Kike Gross DO Referring MD: Referred Self Indications: Abdominal pain of suspected biliary origin, Abnormal endoscopic ultrasound of the biliary system, Elevated liver enzymes, Gallstone associated acute pancreatitis Medicines: General Anesthesia Complications: No immediate complications. Estimated blood loss: Minimal. Estimated Blood Loss: Estimated blood loss was minimal. Procedure: Pre-Anesthesia Assessment: - Prior to the procedure, a History and Physical was performed, and patient medications, allergies and sensitivities were reviewed. The patient's tolerance of previous anesthesia was reviewed. - The risks and benefits of the procedure and the sedation options and risks were discussed with the patient. All questions were answered and informed consent was obtained. - Patient identification and proposed procedure were verified prior to the procedure by the physician, the nurse and the lens dotter. The procedure was verified in the procedure room. - Pre-procedure physical examination revealed no contraindications to sedation. - ASA Grade Assessment: III - A patient with severe systemic disease. - The anesthesia plan was to use general anesthesia. - Immediately prior to administration of medications, the patient was re-assessed for adequacy to receive sedatives. - The heart rate, respiratory rate, oxygen saturations, blood pressure, adequacy of pulmonary ventilation, and response to care were monitored throughout the procedure. - The physical status of the patient was re-assessed after the procedure. After obtaining informed consent, the scope was passed under direct vision. Throughout the procedure, the patient's blood pressure, pulse, and oxygen saturations were monitored continuously. The Scope was introduced through the mouth, and advanced to the duodenum and used to inject contrast into the bile duct. The patient tolerated the procedure well. The ERCP was performed with moderate difficulty due to challenging cannulation because of abnormal anatomy and challenging cannulation because of papillary stenosis. Successful completion of the procedure was aided by performing the maneuvers documented (below) in this report. Findings: The electric furnace operator film was normal. The esophagus was successfully intubated under direct vision without detailed examination of the pharynx, larynx, and associated structures, and upper GI tract. The upper GI tract was grossly normal. The major papilla was located partially within a diverticulum. The major papilla was congested. The ventral pancreatic duct was inadvertently cannulated with the short-nosed traction sphincterotome and 0.035 in Acrobat 2guidewire without any complications. The wire was left in place to aid in biliary cannulation with "double" wire technique and later place a proophlactic pancreatic stent. The bile duct could not be cannulated with the short-nosed traction sphincterotome and guidewire despite a number of combinations. Therefore a 2 mm ventral pancreatic septotomy was made with a monofilament Dreamtome sphincterotome and 0.025 in Guidewire using ERBE electrocautery. There was no post-sphincterotomy bleeding. The bile duct was finally deeply cannulated with the short-nosed traction sphincterotome and 0.025 Delta guidewire. Contrast was injected. I personally interpreted the bile duct images. Contrast extended to the hepatic ducts. The lower third of the main bile duct contained filling defect(s) thought to be a stone. The biliary orifice was stenotic. This appeared benign. The biliary sphincterotomy was extended with a monofilament Dreamtome sphincterotome using ERBE electrocautery. There was no post-sphincterotomy bleeding. The delta wire was then exchanged with a 0.035 in Acrobat 2 guidewire to faclitate manipulaton of the bile duct. To discover objects, the biliary tree was swept with an 11.5 mm balloon starting at the bifurcation. Sludge was swept from the duct. One stone was removed. No stones remained. One 10 Fr by 7 cm biliary stent with a single external flap and a single internal flap was placed 7 cm into the common bile duct. Bile flowed through the stent. The stent was in good position. One 5 Fr by 7 cm pancreatic stent with a full external pigtail and no internal flaps was placed 7 cm into the ventral pancreatic duct. Clear fluid flowed through the stent. The stent was in good position. The endoscope was withdrawn from the patient. The total fluoroscopy exposure time was 1 minute and 41 seconds. Indomethacin 100 mg was given via suppository to decrease the risk of post-ERCP pancreatitis (PEP). Impression: - The major papilla was located partially within a diverticulum. - Choledocholithiasis was found. Complete removal was accomplished by biliary sphincterotomy and balloon extraction. - One biliary stent was placed into the common bile duct. - One pancreatic stent was placed into the ventral pancreatic duct. - Indomethacin given to decrease risk of post-ERCP pancreatitis. Recommendation: - Avoid aspirin and nonsteroidal anti-inflammatory medicines for 5 days. - Clear liquid diet today. - Repeat ERCP in 6 weeks to remove stent. Kike Gross D.O. Kike Gross, 08/22/2021 12:40:31 PM This report has been signed electronically. Note Initiated On: 08/22/2021 9:35 AM Number of Addenda: 0 I attest to the content of the Intraoperative Record and orders documented therein, exceptions below {[id number]}
--- NOTE | 2021-08-22 13:20 | Anesthesiology Progress Note ---
Date of Service August 22, 2021 Anesthesia Post Procedure Vital Signs Vital Signs: Temp Pulse Pulse Resp BP Pulse Ox 08/22/21 13:15 71 18 146/88 H 100 08/22/21 13:05 78 15 141/92 H 100 08/22/21 12:58 98.2 F 70 10 L 145/92 H 99 08/22/21 08:45 98.1 F 70 18 148/91 H 99 08/22/21 07:41 98.2 F 75 16 126/80 96 08/21/21 23:30 98.2 F 78 16 121/70 96 08/21/21 14:33 97.9 F 95 H 16 98/58 L 94 Pain Intensity Medial Abdomen: Pain Intensity: 0 Transfer of Care Handoff Completed per policy Notes Mental Status: alert / awake / arousable and participated in evaluation Patient Amnestic to Procedure: Yes Nausea / Vomiting: adequately controlled Pain: adequately controlled Airway Patency, RR, SpO2: stable & adequate BP & HR: stable & adequate Hydration State: stable & adequate Anesthetic Complications: no major complications apparent and Pt Satisfied with anesthetic care
--- NOTE | 2021-08-22 13:24 | Fluoroscopy Report ---
[place] ERCP biliary ductal HISTORY: 50 years-old Male ERCP follow up study in a patient with acute pancreatitis and gallbladder distention COMPARISON: MRCP 08/20/2021 TECHNIQUE: 7 spot fluoroscopic images of the abdominal right upper quadrant were obtained utilizing 1 07.3 seconds fluoroscopy time FINDINGS: Endoscope is noted within the duodenum. There is cannulation of the pancreatic and common bile ducts. There is retrograde injection of contrast into the common bile duct which demonstrates no biliary du ctal dilation. The gallbladder does not opacify. Subsequent images demonstrate placement of pancreati c and common bile duct stents. IMPRESSION: Fluoroscopic assistance as above. ACT 112: Negative or not required by law. The above report was generated using voice recognition software. It may contain grammatical, syntax o r spelling errors. Electronically signed by: Stef Jones M.D. 08/22/2021 1:23 PM
[2021-08-22] MEDS ORDERED: MoRPHine SULFATE 2 MG/ML CARP IV PRN (13:53)
--- NOTE | 2021-08-22 14:44 | Hospitalist Progress Note ---
Date of Service August 22, 2021 Assessment & Plan (1) Gallbladder disease: (2) Recurrent pancreatitis: Plan: Gallstone pancreatitis Choledochelithiasis Acute cholecystitis Esophagitis Gastritis Patient presented with reports of abdominal pain, nausea, poor appetite x 4 days and was found to have recurrent pancreatitis. CT ABD/pelvis - Fat stranding and edema about the pancreatic head likely representing acute pancreatitis. Calcifications in the pancreatic parenchyma may represent chronic pancreatitis changes RUQ US - Distended gallbladder with sludge and stones and minimal wall thickening. Cystitis cannot be excluded, although this may also represent secondary changes from pancreatitis MRCP without biliary ductal dilatation. Mild infiltration adjacent to the pancreatic head and uncinate process suggestive of acute pancreatitis. No peripancreatic fluid collection. No pancreatic ductal dilatation. No change in gallbladder distention. No gallbladder wall thickening or pericholecystic infiltration. 4 mm gallstone within the gallbladder S/p EGD/ERCP by Dr. Gross. EGD revealed esophagitis concerning for Casanova's esophagus, gastritis, both biopsied. Continue PPI. ERCP with choledocholithiasis found, biliary and pancreatic stents placed Per GI, clear liquid diet, avoid NSAIDs, repeat ERCP in 6 weeks for stent removal POD # 0 s/p lap rosas. Continue to hold Brilinta for now, per surgery Cardiology following - recommend restart Brilinta as soon as bleeding risk is deemed acceptable by the operating surgeon Clears as tolerated, IVF, pain and nausea control Continue Zosyn In significant pain post-operatively despite IV morphine and tramadol. Changed pain regimen, repeating labwork, general surgery notified. Pain now improved per RN. (3) CAD (coronary artery disease): Plan: Appears stable, no reports of chest pain or recent anginal symptoms EKG without acute ST changes 2018-RCA stent x2, 07/2020-STEMI s/p PCI to left circumflex with 2 MELLY, 12/2020- NSTEMI s/p 3 Xience MELLY to the distal aspect of prior stent of the left posterior lateral branch vessel. Balloon angioplasty performed of prior distal circumflex stent (4) HLD (hyperlipidemia): Plan: Continue statin and Zetia (5) Barretts esophagus: Plan: Continue PPI (6) DVT prophylaxis: Plan: SCDs for now Patient seen in collaboration with Dr. Blunt. Please see addendum. Admission and Anticipated Discharge Date Admission Date: August 20, 2021 Supervising Physician Co-Signing Physician Notes Patient seen and examined by me, care coordinated with Grecia Steve PA-C, please refer to her note above for further detail. Pt is currently s/p EGD, ERCP w/ stent placement, s/p lap rosas. Patient is lying in bed, complains of abdominal discomfort after surgery. Abdomen is otherwise soft, positive bowel sounds. Heart sounds regular, lung sounds clear to auscultation. No lower extremity edema noted. Patient moves extremities spontaneously and without difficulty. Repeat blood work now notified gen. surgery. Cont. pain management, IV Abx. Discussed also w/ bellows filler for follow up. Continue to closely monitor. Amelia Blunt MD Subjective Patient was seen and examined postoperatively. Currently in severe pain, received 4 mg morphine from RN right before my exam. Having epigastric and mid abdominal pain. No nausea or vomiting. Denies any fever or chills. No headache, lightheadedness, chest pain, shortness of breath, dysuria. Did have some urinary retention requiring straight cath by RN this afternoon. Review of Systems Review of Systems: At least ten systems reviewed and negative except as noted in the HPI. Physical Exam Physical Exam: Gen: WD/WN, NAD, lying in bed, A&Ox3 HEENT: Normocephalic, atraumatic, conjunctivae moist, sclerae anicteric, mucous membranes moist Lung: Clear to Auscultation bilaterally, no wheezes/rales/rhonchi Heart: Regular rate, regular rhythm, no murmurs, rubs, or gallops Abdomen: painful epigastric and mid abdomen but soft, ND +BS x 4 Extremities: no edema Skin: Warm, no rash Results & Data Results & Data ([facility]) Vital Signs (Past 12 Hours) Vital Signs Temp Pulse Pulse Resp BP Pulse Ox 08/22/21 14:26 36.4 C L 60 16 139/79 99 08/22/21 13:54 36.4 C L 65 18 134/75 97 08/22/21 13:35 65 17 135/83 98 08/22/21 13:25 36.4 C L 64 13 146/88 H 99 08/22/21 13:15 71 18 146/88 H 100 08/22/21 13:05 78 15 141/92 H 100 08/22/21 12:58 36.8 C 70 10 L 145/92 H 99 08/22/21 08:45 36.7 C 70 18 148/91 H 99 08/22/21 07:41 36.8 C 75 16 126/80 96 Laboratory Results 08/22/21 08/22/21 08/22/21 Range/Units 19:28 19:28 06:35 WBC 7.13 (4.8-10.8) K/uL RBC 3.70 L (4.7-6.1) M/uL Hgb 12.6 L (14.0-18.0) g/dL Hct 35.7 L (42-52) % MCV 96.5 (80-100) fL MCH 34.1 H (25-34) pg MCHC 35.3 (32-36) g/dL RDW Std Deviation 45.9 (36.4-46.3) fL RDW Coeff of Mckinley 13.2 (11.5-14.5) % Plt Count 224 (130-400) K/uL MPV 9.0 (7.4-10.4) fL Immature Gran % (Auto) % Neut % (Auto) % Lymph % (Auto) % [place] % (Auto) % Eos % (Auto) % Baso % (Auto) % Neut # (Auto) (1.4-6.5) K/uL Lymph # (Auto) (1.2-3.4) K/uL [place] # (Auto) (0.11-0.59) K/uL Eos # (Auto) (0-0.5) K/uL Baso # (Auto) (0-0.2) K/uL Immature Gran # (Auto) (0.00-0.02) K/uL Sodium 132 L 137 (136-145) mmol/L Potassium 3.8 3.7 (3.5-5.1) mmol/L Chloride 99 105 (98-107) mmol/L Carbon Dioxide 21 23 (21-32) mmol/L Anion Gap 12.0 H 10.0 (3-11) BUN 8 6 L (7-18) mg/dl Creatinine 0.91 0.84 (0.6-1.4) mg/dl Est Cr Clr Drug Dosing 78.9 85.5 ml/min Est GFR ( Amer) 112.7 117.5 ml/min Est GFR (Non-Af Amer) 97.2 101.4 ml/min BUN/Creatinine Ratio 9.1 L 7.5 L (10-20) Glucose 146 H 83 (70-99) mg/dl Calcium 8.3 L 8.3 L (8.5-10.1) mg/dl Total Bilirubin 0.7 0.6 (0.2-1) mg/dl Direct Bilirubin 0.2 D (0-0.2) mg/dl AST 69 H 18 (15-37) U/L ALT 44 23 (12-78) U/L Alkaline Phosphatase 113 101 (45-117) U/L Total Protein 6.5 5.8 L (6.4-8.2) gm/dl Albumin 2.7 L 2.5 L (3.4-5.0) gm/dl Globulin 3.8 (2.5-4.0) gm/dl Albumin/Globulin Ratio 0.7 L (0.9-2) Lipase 199 384 (73-393) U/L 08/22/21 Range/Units 06:35 WBC 5.03 (4.8-10.8) K/uL RBC 3.63 L (4.7-6.1) M/uL Hgb 12.3 L (14.0-18.0) g/dL Hct 35.4 L (42-52) % MCV 97.5 (80-100) fL MCH 33.9 (25-34) pg MCHC 34.7 (32-36) g/dL RDW Std Deviation 48.2 H (36.4-46.3) fL RDW Coeff of Mckinley 13.4 (11.5-14.5) % Plt Count 209 (130-400) K/uL MPV 9.1 (7.4-10.4) fL Immature Gran % (Auto) 0.0 % Neut % (Auto) 62.5 % Lymph % (Auto) 25.6 % Huntington % (Auto) 8.5 % Eos % (Auto) 3.0 % Baso % (Auto) 0.4 % Neut # (Auto) 3.14 (1.4-6.5) K/uL Lymph # (Auto) 1.29 (1.2-3.4) K/uL Huntington # (Auto) 0.43 (0.11-0.59) K/uL Eos # (Auto) 0.15 (0-0.5) K/uL Baso # (Auto) 0.02 (0-0.2) K/uL Immature Gran # (Auto) 0.00 (0.00-0.02) K/uL Sodium (136-145) mmol/L Potassium (3.5-5.1) mmol/L Chloride (98-107) mmol/L Carbon Dioxide (21-32) mmol/L Anion Gap (3-11) BUN (7-18) mg/dl Creatinine (0.6-1.4) mg/dl Est Cr Clr Drug Dosing ml/min Est GFR ( Amer) ml/min Est GFR (Non-Af Amer) ml/min BUN/Creatinine Ratio (10-20) Glucose (70-99) mg/dl Calcium (8.5-10.1) mg/dl Total Bilirubin (0.2-1) mg/dl Direct Bilirubin (0-0.2) mg/dl AST (15-37) U/L ALT (12-78) U/L Alkaline Phosphatase (45-117) U/L Total Protein (6.4-8.2) gm/dl Albumin (3.4-5.0) gm/dl Globulin (2.5-4.0) gm/dl Albumin/Globulin Ratio (0.9-2) Lipase (73-393) U/L Medications Administered Current Inpatient Medications Acetaminophen (Acetaminophen 325 Mg Tab) 650 mg PO Q6H PRN PRN Reason: Fever/pain Stop: 09/19/21 09:00 Aspirin (Aspirin 81 Mg Ectab) [address] [facility] Stop: 09/19/21 09:29 Last Admin: 08/22/21 08:36 Dose: 81 mg Documented by: Ezetimibe (Ezetimibe 10 Mg Tablet) [address] [facility] Stop: 09/19/21 09:29 Last Admin: 08/22/21 08:35 Dose: 10 mg Documented by: Famotidine (Famotidine 40 Mg Tablet) 40 mg PO [facility] Stop: 09/19/21 20:59 Last Admin: 08/22/21 21:59 Dose: 40 mg Documented by: Hydromorphone HCl (Hydromorphone Inj 0.5 Mg/0.5 Ml Syr) 0.5 mg IV Q3H PRN PRN Reason: Pain Stop: 09/05/21 17:12 Promethazine HCl 12.5 mg/ (Sodium Chloride) 50.5 mls @ 202 mls/hr IV Q6H PRN PRN Reason: Nausea And Vomiting Stop: 09/19/21 09:00 Lorazepam (Ativan) 0.5 mg in 1 mls @ 1 mls/min IV Q4H PRN PRN Reason: Anxiety/Agitation Stop: 09/19/21 09:00 Last Admin: 08/22/21 16:15 Dose: 1 mls/min Documented by: Piperacillin Sod/Tazobactam (Sod 3.375 gm/ Dextrose) 115 mls @ 28.75 mls/hr IV Q8H [facility]; Protocol Stop: 08/30/21 13:59 Last Admin: 08/22/21 22:00 Dose: 28.8 mls/hr Documented by: Lactated Ringer's (Lr) 1,000 mls @ 125 mls/hr IV .Q8H [facility] Stop: 09/21/21 13:52 Last Admin: 08/22/21 21:59 Dose: 125 mls/hr Documented by: Acetaminophen (Ofirmev) 1,000 mg in 100 mls @ 400 mls/hr IV Q8H PRN PRN Reason: pain or fever Stop: 08/25/21 17:13 Isosorbide Mononitrate (Isosorbide [place] Extended Rel 60 Mg Tabcr) 60 mg PO DAILY [facility] Stop: 09/19/21 09:29 Last Admin: 08/22/21 08:36 Dose: 60 mg Documented by: Metoprolol Succinate (Metoprolol Succ 25mg Ext Rel Tab) [address] [facility] Stop: 09/19/21 09:29 Last Admin: 08/22/21 08:36 Dose: 25 mg Documented by: Miscellaneous Information (Piperacill/Tazobac Consult Active) 1 ea N/A UD PRN PRN Reason: Consult Stop: 09/19/21 12:23 Pantoprazole Sodium (Pantoprazole 40 Mg Tab) [address] [facility] Stop: 09/19/21 09:29 Last Admin: 08/22/21 08:36 Dose: 40 mg Documented by: Sertraline HCl (Sertraline Hcl 50 Mg Tablet) [address] [facility] Stop: 09/19/21 09:44 Last Admin: 08/22/21 08:35 Dose: 50 mg Documented by: Ticagrelor (Ticagrelor 90 Mg Tab) 90 mg PO BID [facility] Stop: 09/19/21 09:44 Last Admin: 08/20/21 10:34 Dose: 90 mg Documented by: Tramadol HCl (Tramadol Hcl 50 Mg Tablet) 25 - 50 mg PO Q4H PRN PRN Reason: Pain Stop: 09/19/21 09:00 Last Admin: 08/22/21 15:46 Dose: 50 mg Documented by:
[2021-08-22] MEDS: MoRPHine SULFATE 4 MG/ML 1 ML CARP\\VIAL IV PRN ×2 (15:26→16:31)
[2021-08-22] MEDS: traMADol HCL 50 MG TABLET PO PRN (15:46)
--- NOTE | 2021-08-22 16:09 | Cardiology Progress Note ---
Date of Service August 22, 2021 Assessment & Plan (1) Preop cardiovascular exam: (2) CAD (coronary artery disease): (3) Recurrent pancreatitis: Plan: Brilinta held prior to surgery. Continue aspirin uninterrupted. Restart Brilinta as soon as bleeding risk is deemed acceptable by the operating surgeon. Continue other cardiovascular medications as previously ordered. Supportive care as per internal medicine and surgical service. Admission and Anticipated Discharge Date Admission Date: August 20, 2021 Subjective Patient seen examined the bedside. ERCP with laparoscopic cholecystectomy performed earlier today without complication. Notes mild abdominal discomfort. Denies chest pain or shortness of breath. Review of Systems Review of Systems: All systems reviewed & are unremarkable except as noted in Subjective Physical Exam Constitutional: well nourished; no acute distress and not ill appearing Respiratory: normal respiratory effort; no respiratory distress, no labored breathing and no retractions Auscultation: lungs clear to auscultation bilaterally; no crackles, no rales and no wheezes Cardiovascular: Rate/Rhythm: regular rate and regular rhythm Heart Sounds: normal S1 and normal S2; no gallop, no murmur and no cardiac rub Vessels: radial pulses present; no JVD and no carotid bruit Extremities: + edema Gastrointestinal (Abdomen): Inspection/Auscultation: abdomen normal to inspection; abdomen not distended and + abnormal bowel sounds (Hypoactive) Percussion/Palpation: + abdomen tender (epigastric) and abdomen soft; no guarding and abdomen not rigid Neurologic: CN's II-XI intact bilaterally and moves all extremities; no focal motor deficits Motor/Sensory: no tremor Psychiatric: A+Ox3, euthymic affect Results & Data ([facility]) Vital Signs (Past 12 Hours) Vital Signs Temp Pulse Pulse Resp BP Pulse Ox 08/22/21 15:54 36.4 C L 74 16 142/72 H 98 08/22/21 15:02 36.3 C L 63 16 145/77 H 98 08/22/21 14:26 36.4 C L 60 16 139/79 99 08/22/21 13:54 36.4 C L 65 18 134/75 97 08/22/21 13:35 65 17 135/83 98 08/22/21 13:25 36.4 C L 64 13 146/88 H 99 08/22/21 13:15 71 18 146/88 H 100 08/22/21 13:05 78 15 141/92 H 100 08/22/21 12:58 36.8 C 70 10 L 145/92 H 99 08/22/21 08:45 36.7 C 70 18 148/91 H 99 08/22/21 07:41 36.8 C 75 16 126/80 96
[2021-08-22] MEDS ORDERED: ACETAMINOPHEN 1,000 MG/100 ML VIAL IV PRN (17:14)
[2021-08-22 19:40] LABS: Hematocrit (blood only) 35.7 % (42-52); Hemoglobin 12.6 g/dL (14.0-18.0); Mean Corpuscular Hemoglobin 34.1 pg (25-34); Mean Corpuscular Hgb Conc 35.3 g/dL (32-36); Mean Corpuscular Volume 96.5 fL (80-100); Platelet Count 224 K/uL (130-400); RDW Coefficient of Variation 13.2 % (11.5-14.5); RDW Standard Deviation 45.9 fL (36.4-46.3); White Blood Count 7.13 K/uL (4.8-10.8)
[2021-08-22 20:11] LABS: Albumin Level 2.7 gm/dl (3.4-5.0); BUN Creatinine Ratio 9.1 (10-20); Calcium 8.3 mg/dl (8.5-10.1); Creatinine Clr Calc Pharmacy 78.9 ml/min; Est GFR (African American) 112.7 ml/min; Est GFR (Non-African American) 97.2 ml/min; Potassium 3.8 mmol/L (3.5-5.1)
[2021-08-22 20:13] LABS: Albumin Globulin Ratio 0.7 (0.9-2); Bilirubin,Total 0.7 mg/dl (0.2-1); Globulin 3.8 gm/dl (2.5-4.0); Total Protein 6.5 gm/dl (6.4-8.2)
[2021-08-22] MEDS: FAMOTIDINE 40 MG TABLET PO SCH (21:59)
[2021-08-22] MEDS: HYDROmorphone INJ 0.5 MG/0.5 ML SYR IV PRN (23:43)
[2021-08-23] MEDS: PIPERACILLIN/TAZOBACTAM 3.375 GM in DEXTROSE 5% 100 ML IV SCH ×3 (06:00→22:20)
[2021-08-23] MEDS: HYDROmorphone INJ 0.5 MG/0.5 ML SYR IV PRN ×4 (06:01→19:58)
[2021-08-23] MEDS: LACTATED RINGER'S 1,000 ML IV SCH ×3 (06:01→22:20)
[2021-08-23] MEDS: traMADol HCL 50 MG TABLET PO PRN (07:38)
[2021-08-23] MEDS: PANTOprazole 40 MG TAB PO SCH (08:36)
[2021-08-23] MEDS: SERTRALINE HCL 50 MG TABLET PO SCH (08:36)
[2021-08-23] MEDS: METOPROLOL SUCC 25MG EXT REL TAB PO SCH (08:36)
[2021-08-23] MEDS: ASPIRIN 81 MG ECTAB PO SCH (08:36)
[2021-08-23] MEDS: ISOSORBIDE MONO EXTENDED REL 60 MG TABCR PO SCH (08:36)
[2021-08-23] MEDS: EZETIMIBE 10 MG TABLET PO SCH (08:36)
[2021-08-23 11:15] LABS: Basophils # (auto) 0.01 K/uL (0-0.2); Basophils % (auto) 0.1 %; Hematocrit (blood only) 33.6 % (42-52); Hemoglobin 11.9 g/dL (14.0-18.0); Immature Granulocytes # (auto) 0.01 K/uL (0.00-0.02); Immature Granulocytes % (auto) 0.1 %; Lymphocytes # (auto) 0.73 K/uL (1.2-3.4); Lymphocytes % (auto) 7.4 %; Mean Corpuscular Hemoglobin 33.8 pg (25-34); Mean Corpuscular Hgb Conc 35.4 g/dL (32-36); Mean Corpuscular Volume 95.5 fL (80-100); Mean Platelet Volume 8.8 fL (7.4-10.4); Monocytes # (auto) 0.46 K/uL (0.11-0.59); Monocytes % (auto) 4.7 %; Neutrophils # (auto) 8.59 K/uL (1.4-6.5); Neutrophils % (auto) 87.7 %; Platelet Count 210 K/uL (130-400); RDW Coefficient of Variation 13.4 % (11.5-14.5); RDW Standard Deviation 46.6 fL (36.4-46.3); Red Blood Count 3.52 M/uL (4.7-6.1)
[2021-08-23 11:33] LABS: Albumin Level 2.5 gm/dl (3.4-5.0); BUN Creatinine Ratio 6.9 (10-20); Calcium 8.2 mg/dl (8.5-10.1); Creatinine Clr Calc Pharmacy 71.1 ml/min; Est GFR (African American) 99.4 ml/min; Est GFR (Non-African American) 85.7 ml/min; Magnesium 1.6 mg/dl (1.8-2.4); Potassium 3.3 mmol/L (3.5-5.1)
[2021-08-23 11:36] LABS: Albumin Globulin Ratio 0.7 (0.9-2); Globulin 3.6 gm/dl (2.5-4.0); Phosphorus 2.1 mg/dl (2.5-4.9); Total Protein 6.1 gm/dl (6.4-8.2)
[2021-08-23] MEDS ORDERED: MAGNESIUM OXIDE 400 MG TAB PO STA (11:38)
[2021-08-23] MEDS ORDERED: POTASSIUM CHLORIDE CRTAB 20 MEQ TABCR PO STA (11:38)
--- NOTE | 2021-08-23 11:39 | Surgery Progress Note ---
Date of Service August 23, 2021 Assessment & Plan Admission and Anticipated Discharge Date Admission Date: August 20, 2021 Supervising Physician Co-Signing Physician Notes Patient seen and examined by me, care coordinated with Grecia Steve PA-C, please refer to her note above for further detail. Pt is currently s/p EGD, ERCP w/ stent placement, s/p lap rosas. Patient is lying in bed, complains of abdominal discomfort after surgery. Abdomen is otherwise soft, positive bowel sounds. Heart sounds regular, lung sounds clear to auscultation. No lower extremity edema noted. Patient moves extremities spontaneously and without difficulty. Repeat blood work now notified gen. surgery. Cont. pain management, IV Abx. Discussed also w/ extractor operator solvent process for follow up. Continue to closely monitor. Amelia Blunt MD 08/23/2021 11: 37AM F/U S/P ERCP< and lap rosas, POD 1 pt is doing fine, pt wants to go home today, pt can be discharged home today, he can take a shower tomorrow, no heavy lifting > 25 LBS for 4 weeks, F/U DR. Davidson 2 weeks, Subjective Patient was seen and examined postoperatively. Currently in severe pain, receiv ed 4 mg morphine from RN right before my exam. Having epigastric and mid abdominal pain. No nausea or vomiting. Denies any fever or chills. No headache, lightheadedness, chest pain, shortness of breath, dysuria. Did have some urinary retention requiring straight cath by RN this afternoon. 08/23/2021 11:35AM Dr. Haney F/U S/P ERCP and lap rosas POD 1 pt is doing fine, no significant abdominal pain, tolerated clear diet, no nausea, no vomiting, no fever, Physical Exam Constitutional: WD/WN, vitals as above Eyes: PERRL, conjunctivae normal, anicteric sclerae Neck: trachea midline, no thyromegaly Respiratory: normal respiratory effort, lungs clear to auscultation Cardiovascular: RRR, no murmur, no edema Gastrointestinal (Abdomen): soft, mild tenderness at incision site, no rebound pain, no distend, all incisions intact, no redness, BS + Musculoskeletal: no cyanosis or clubbing, extremities motor strength 5/5 Neurologic: patellar DTR's 2+ bilat, sensation intact Psychiatric: A+Ox3, euthymic affect Results & Data ([facility]) Vital Signs (Past 12 Hours) Vital Signs Temp Pulse Resp BP Pulse Ox 08/23/21 08:30 36.9 C 72 16 142/84 H 93 Laboratory Results Abnormal lab results 08/22/21 08/22/21 08/23/21 Range/Units 19:28 19:28 11:03 RBC 3.70 L 3.52 L (4.7-6.1) M/uL Hgb 12.6 L 11.9 L (14.0-18.0) g/dL Hct 35.7 L 33.6 L (42-52) % MCH 34.1 H (25-34) pg RDW Std Deviation 46.6 H (36.4-46.3) fL Neut # (Auto) 8.59 H (1.4-6.5) K/uL Lymph # (Auto) 0.73 L (1.2-3.4) K/uL Sodium 132 L (136-145) mmol/L Potassium (3.5-5.1) mmol/L Anion Gap 12.0 H (3-11) BUN/Creatinine Ratio 9.1 L (10-20) Glucose 146 H (70-99) mg/dl Calcium 8.3 L (8.5-10.1) mg/dl Phosphorus (2.5-4.9) mg/dl Magnesium (1.8-2.4) mg/dl AST 69 H (15-37) U/L Total Protein (6.4-8.2) gm/dl Albumin 2.7 L (3.4-5.0) gm/dl Albumin/Globulin Ratio 0.7 L (0.9-2) 08/23/21 Range/Units 11:03 RBC (4.7-6.1) M/uL Hgb (14.0-18.0) g/dL Hct (42-52) % MCH (25-34) pg RDW Std Deviation (36.4-46.3) fL Neut # (Auto) (1.4-6.5) K/uL Lymph # (Auto) (1.2-3.4) K/uL Sodium 135 L (136-145) mmol/L Potassium 3.3 L (3.5-5.1) mmol/L Anion Gap (3-11) BUN/Creatinine Ratio 6.9 L (10-20) Glucose 142 H (70-99) mg/dl Calcium 8.2 L (8.5-10.1) mg/dl Phosphorus 2.1 L (2.5-4.9) mg/dl Magnesium 1.6 L (1.8-2.4) mg/dl AST (15-37) U/L Total Protein 6.1 L (6.4-8.2) gm/dl Albumin 2.5 L (3.4-5.0) gm/dl Albumin/Globulin Ratio 0.7 L (0.9-2)
--- NOTE | 2021-08-23 12:37 | Hospitalist Progress Note ---
Date of Service August 23, 2021 Assessment & Plan (1) Gallbladder disease: (2) Recurrent pancreatitis: Plan: Gallstone pancreatitis Choledochelithiasis Acute cholecystitis Esophagitis Gastritis Patient presented with reports of abdominal pain, nausea, poor appetite x 4 days and was found to have recurrent pancreatitis. CT ABD/pelvis - Fat stranding and edema about the pancreatic head likely representing acute pancreatitis. Calcifications in the pancreatic parenchyma may represent chronic pancreatitis changes RUQ US - Distended gallbladder with sludge and stones and minimal wall thickening. Cystitis cannot be excluded, although this may also represent secondary changes from pancreatitis MRCP without biliary ductal dilatation. Mild infiltration adjacent to the pancreatic head and uncinate process suggestive of acute pancreatitis. No peripancreatic fluid collection. No pancreatic ductal dilatation. No change in gallbladder distention. No gallbladder wall thickening or pericholecystic infiltration. 4 mm gallstone within the gallbladder S/p EGD/ERCP by Dr. Gross. EGD revealed esophagitis concerning for Casanova's esophagus, gastritis, both biopsied. Continue PPI. ERCP with choledocholithiasis found, biliary and pancreatic stents placed Per GI, clear liquid diet, avoid NSAIDs, repeat ERCP in 6 weeks for stent removal POD # 1 s/p lap rosas. Has been feeling much better and tolerating advanced diet without significant pain, nausea and or vomiting Discussed with surgery and he can be discharged home this afternoon Restart Brilinta from tomorrow Appreciate cardiology input and recommendation Will be discharged home this afternoon He will not need any more antibiotic (3) CAD (coronary artery disease): Plan: Appears stable, no reports of chest pain or recent anginal symptoms EKG without acute ST changes 2018-RCA stent x2, 07/2020-STEMI s/p PCI to left circumflex with 2 MELLY, 12/2020- NSTEMI s/p 3 Xience MELLY to the distal aspect of prior stent of the left posterior lateral branch vessel. Balloon angioplasty performed of prior distal circumflex stent Appreciate cardiology input and recommendation All of his cardiac medications will be continued on discharge (4) HLD (hyperlipidemia): Plan: Continue statin and Zetia (5) Barretts esophagus: Plan: Continue PPI Will need to have repeat ERCP in 6 weeks for stent removal No NSAID use except continue aspirin (6) DVT prophylaxis: Plan: SCDs for now Admission and Anticipated Discharge Date Admission Date: August 20, 2021 Subjective 08/23/2021 The patient was seen and examined in medical floor He is a status post ERCP and laparoscopic cholecystectomy POD #1 He has been feeling much better with minimal pain and has been tolerating regular diet Denies any significant symptoms Review of Systems Review of Systems: All systems reviewed and are unremarkable except as noted below Cardiovascular: Additional Comments: No chest pain and/or palpitation Gastrointestinal: Minimal abdominal discomfort and pain without nausea and or vomiting Physical Exam Physical Exam: Lying in bed comfortably Constitutional: well developed and well nourished; not ill appearing Eyes: PERRL, conjunctivae normal, anicteric sclerae ENMT: external ear and nose normal, oropharynx normal Neck: trachea midline, no thyromegaly Respiratory: no respiratory distress Auscultation: lungs clear to auscultation bilaterally Cardiovascular: Rate/Rhythm: regular rate and regular rhythm; not tachycardic Heart Sounds: normal S1 and normal S2; no murmur Extremities: no edema Gastrointestinal (Abdomen): Inspection/Auscultation: normal bowel sounds; abdomen not distended Percussion/Palpation: + abdomen tender (Mildly tender all over without any guarding and no rigidity) and abdomen soft Musculoskeletal: No acute arthritis in any joint Neurologic: Alert, awake and oriented x3. No focal sensory and motor deficit appreciated Psychiatric: A+Ox3, euthymic affect Lymphatic: no cervical or axillary lymphadenopathy Results & Data Results & Data ([facility]) Vital Signs (Past 12 Hours) Vital Signs Temp Pulse Resp BP Pulse Ox 08/23/21 08:30 36.9 C 72 16 142/84 H 93 Laboratory Results Short CBC 08/22/21 08/23/21 Range/Units 19:28 11:03 WBC 7.13 9.80 (4.8-10.8) K/uL Hgb 12.6 L 11.9 L (14.0-18.0) g/dL Hct 35.7 L 33.6 L (42-52) % Plt Count 224 210 (130-400) K/uL BMP 08/22/21 08/23/21 19:28 11:03 Sodium 132 L 135 L Potassium 3.8 3.3 L Chloride 99 100 Carbon Dioxide 21 27 BUN 8 7 Creatinine 0.91 1.01 Glucose 146 H 142 H Calcium 8.3 L 8.2 L Liver Function 08/22/21 08/23/21 Range/Units 19:28 11:03 Total Bilirubin 0.7 1.0 (0.2-1) mg/dl AST 69 H 37 (15-37) U/L ALT 44 33 (12-78) U/L Alkaline Phosphatase 113 95 (45-117) U/L Albumin 2.7 L 2.5 L (3.4-5.0) gm/dl Medications Administered Current Inpatient Medications Acetaminophen (Acetaminophen 325 Mg Tab) 650 mg PO Q6H PRN PRN Reason: Fever/pain Stop: 09/19/21 09:00 Aspirin (Aspirin 81 Mg Ectab) 81 mg PO [facility] Stop: 09/19/21 09:29 Last Admin: 08/23/21 08:36 Dose: 81 mg Documented by: Ezetimibe (Ezetimibe 10 Mg Tablet) 10 mg PO [facility] Stop: 09/19/21 09:29 Last Admin: 08/23/21 08:36 Dose: 10 mg Documented by: Famotidine (Famotidine 40 Mg Tablet) 40 mg PO [facility] Stop: 09/19/21 20:59 Last Admin: 08/22/21 21:59 Dose: 40 mg Documented by: Hydromorphone HCl (Hydromorphone Inj 0.5 Mg/0.5 Ml Syr) 0.5 mg IV Q3H PRN PRN Reason: Pain Stop: 09/05/21 17:12 Last Admin: 08/23/21 09:32 Dose: 0.5 mg Documented by: Promethazine HCl 12.5 mg/ (Sodium Chloride) 50.5 mls @ 202 mls/hr IV Q6H PRN PRN Reason: Nausea And Vomiting Stop: 09/19/21 09:00 Lorazepam (Ativan) 0.5 mg in 1 mls @ 1 mls/min IV Q4H PRN PRN Reason: Anxiety/Agitation Stop: 09/19/21 09:00 Last Admin: 08/22/21 16:15 Dose: 1 mls/min Documented by: Piperacillin Sod/Tazobactam (Sod 3.375 gm/ Dextrose) 115 mls @ 28.75 mls/hr IV Q8H [facility]; Protocol Stop: 08/30/21 13:59 Last Infusion: 08/23/21 10:19 Dose: Infused Documented by: Lactated Ringer's (Lr) 1,000 mls @ 125 mls/hr IV .Q8H [facility] Stop: 09/21/21 13:52 Last Admin: 08/23/21 06:01 Dose: 125 mls/hr Documented by: [facility] 1,000 mg in 100 mls @ 400 mls/hr IV Q8H PRN PRN Reason: pain or fever Stop: 08/25/21 17:13 Isosorbide Mononitrate (Isosorbide [place] Extended Rel 60 Mg Tabcr) 60 mg PO DAILY [facility] Stop: 09/19/21 09:29 Last Admin: 08/23/21 08:36 Dose: 60 mg Documented by: Metoprolol Succinate (Metoprolol Succ 25mg Ext Rel Tab) 25 mg PO QAM [facility] Stop: 09/19/21 09:29 Last Admin: 08/23/21 08:36 Dose: 25 mg Documented by: Miscellaneous Information (Piperacill/Tazobac Consult Active) 1 ea N/A UD PRN PRN Reason: Consult Stop: 09/19/21 12:23 Pantoprazole Sodium (Pantoprazole 40 Mg Tab) 40 mg PO QAM [facility] Stop: 09/19/21 09:29 Last Admin: 08/23/21 08:36 Dose: 40 mg Documented by: Sertraline HCl (Sertraline Hcl 50 Mg Tablet) 50 mg PO QAM [facility] Stop: 09/19/21 09:44 Last Admin: 08/23/21 08:36 Dose: 50 mg Documented by: Ticagrelor (Ticagrelor 90 Mg Tab) 90 mg PO BID [facility] Stop: 09/19/21 09:44 Last Admin: 08/20/21 10:34 Dose: 90 mg Documented by: Tramadol HCl (Tramadol Hcl 50 Mg Tablet) 25 - 50 mg PO Q4H PRN PRN Reason: Pain Stop: 09/19/21 09:00 Last Admin: 08/23/21 07:38 Dose: 50 mg Documented by:
[2021-08-23] MEDS ORDERED: CALCIUM CARBONATE 500 MG CHEWABLE TAB PO PRN (15:00)
[2021-08-23] MEDS ORDERED: BACLOFEN 10 MG TAB PO ONE (17:30)
[2021-08-23] MEDS: FAMOTIDINE 40 MG TABLET PO SCH (20:11)
[2021-08-23] MEDS ORDERED: METOCLOPRAMIDE HCL INJ 5 MG/ML 2 ML VIAL IV STA (20:59)
[2021-08-23] MEDS ORDERED: GABAPENTIN 300 MG CAP PO STA (21:01)
[2021-08-24] MEDS: LACTATED RINGER'S 1,000 ML IV SCH (05:17)
[2021-08-24] MEDS: PIPERACILLIN/TAZOBACTAM 3.375 GM in DEXTROSE 5% 100 ML IV SCH (05:17)
[2021-08-24 05:51] LABS: Hematocrit (blood only) 31.4 % (42-52); Hemoglobin 10.8 g/dL (14.0-18.0); Mean Corpuscular Hemoglobin 33.5 pg (25-34); Mean Corpuscular Hgb Conc 34.4 g/dL (32-36); Mean Corpuscular Volume 97.5 fL (80-100); Mean Platelet Volume 8.8 fL (7.4-10.4); Platelet Count 200 K/uL (130-400); RDW Coefficient of Variation 13.7 % (11.5-14.5); Red Blood Count 3.22 M/uL (4.7-6.1); White Blood Count 6.79 K/uL (4.8-10.8)
[2021-08-24 06:22] LABS: Albumin Level 2.4 gm/dl (3.4-5.0); BUN Creatinine Ratio 6.7 (10-20); Calcium 8.5 mg/dl (8.5-10.1); Creatinine Clr Calc Pharmacy 85.5 ml/min; Est GFR (African American) 117.5 ml/min; Est GFR (Non-African American) 101.4 ml/min; Potassium 3.6 mmol/L (3.5-5.1)
[2021-08-24 06:24] LABS: Albumin Globulin Ratio 0.6 (0.9-2); Globulin 3.7 gm/dl (2.5-4.0); Total Protein 6.1 gm/dl (6.4-8.2)
[2021-08-24] MEDS: ASPIRIN 81 MG ECTAB PO SCH (08:09)
[2021-08-24] MEDS: PANTOprazole 40 MG TAB PO SCH (08:10)
[2021-08-24] MEDS: ISOSORBIDE MONO EXTENDED REL 60 MG TABCR PO SCH (08:10)
[2021-08-24] MEDS: SERTRALINE HCL 50 MG TABLET PO SCH (08:10)
[2021-08-24] MEDS: METOPROLOL SUCC 25MG EXT REL TAB PO SCH (08:10)
[2021-08-24] MEDS: EZETIMIBE 10 MG TABLET PO SCH (08:10)
[2021-08-24] MEDS ORDERED: POTASSIUM CHLORIDE CRTAB 20 MEQ TABCR PO STA (08:51)
--- NOTE | 2021-08-24 08:51 | Hospitalist Progress Note ---
Date of Service August 24, 2021 Assessment & Plan (1) Gallbladder disease: (2) Recurrent pancreatitis: Plan: Gallstone pancreatitis Choledochelithiasis Acute cholecystitis Esophagitis Gastritis Patient presented with reports of abdominal pain, nausea, poor appetite x 4 days and was found to have recurrent pancreatitis. CT ABD/pelvis - Fat stranding and edema about the pancreatic head likely representing acute pancreatitis. Calcifications in the pancreatic parenchyma may represent chronic pancreatitis changes RUQ US - Distended gallbladder with sludge and stones and minimal wall thickening. Cystitis cannot be excluded, although this may also represent secondary changes from pancreatitis MRCP without biliary ductal dilatation. Mild infiltration adjacent to the pancreatic head and uncinate process suggestive of acute pancreatitis. No peripancreatic fluid collection. No pancreatic ductal dilatation. No change in gallbladder distention. No gallbladder wall thickening or pericholecystic infiltration. 4 mm gallstone within the gallbladder S/p EGD/ERCP by Dr. Gross. EGD revealed esophagitis concerning for Casanova's esophagus, gastritis, both biopsied. Continue PPI. ERCP with choledocholithiasis found, biliary and pancreatic stents placed Per GI, clear liquid diet, avoid NSAIDs, repeat ERCP in 6 weeks for stent removal POD # 2 s/p lap rosas. Discussed with surgery and he can be discharged home Developed some abdominal pain after regular diet, currently on liquids and tolerating well Restart Brilinta today Appreciate cardiology input and recommendation Plan is for discharge home this afternoon if he tolerates advanced diet He will not need any more antibiotic (3) CAD (coronary artery disease): Plan: Appears stable, no reports of chest pain or recent anginal symptoms EKG without acute ST changes 2017-RCA stent x2, 07/2020-STEMI s/p PCI to left circumflex with 2 MELLY, 12/2020- NSTEMI s/p 3 Xience MELLY to the distal aspect of prior stent of the left posterior lateral branch vessel. Balloon angioplasty performed of prior distal circumflex stent Appreciate cardiology input and recommendation All of his cardiac medications will be continued on discharge (4) HLD (hyperlipidemia): Plan: Continue statin and Zetia (5) Barretts esophagus: Plan: Continue PPI Will need to have repeat ERCP in 6 weeks for stent removal No NSAID use except continue aspirin (6) DVT prophylaxis: Plan: SCDs for now Admission and Anticipated Discharge Date Admission Date: August 20, 2021 Subjective Pt is a status post ERCP and laparoscopic cholecystectomy POD #2 Yesterday patient developed abdominal pain after eating regular diet, and therefore discharge was canceled Overnight he had no acute issues No fevers, chills, chest pain, shortness of breath Currently denies abdominal pain, he has been on liquid diet Will advance diet now, patient is inquiring about going home afterward Discussed that if he tolerates a diet, he will be discharged Review of Systems Review of Systems: All systems reviewed & are unremarkable except as noted in Subjective Physical Exam Physical Exam: Physical Exam: Lying in bed comfo rtably Constitutional:L well developed and well nourished; n ot ill appearing Eyes: PERRL, EOMI, conju nctivae normal, an icteric sclerae ENMT: external ear and n ose normal, oropha rynx normal Neck: supple Respiratory: no respiratory dis tress Auscultatio n: lungs clear to auscultation bilat erally Cardiovascular:L Rate/Rhythm: regul ar rate and regula r rhythm Heart So unds: normal S1 an d normal S2; no mu rmur Extremities: no edema Gastrointestinal ( Abdomen): normal bowel sound s; abdomen not dis tended Percussion /Palpation: + abdo men tender (Mildly tender all over w ithout any guardin g and no rigidity) , abdomen soft Musculoskeletal: No acute arthritis in any joint Neurologic: Alert, awake and o riented x3. No fo natalio sensory and mo tor deficit apprec iated Psychiatric: A+Ox3, euthymic af fect Lymphatic: no lymphedema Results & Data Results & Data ([facility]) Vital Signs (Past 12 Hours) Vital Signs Temp Pulse Pulse Resp BP Pulse Ox 08/24/21 07:37 36.8 C 84 16 137/84 93 08/23/21 22:13 36.8 C 82 16 119/69 92 Laboratory Results 08/24/21 08/24/21 08/23/21 Range/Units 05:38 05:38 11:03 WBC 6.79 (4.8-10.8) K/uL RBC 3.22 L (4.7-6.1) M/uL Hgb 10.8 L (14.0-18.0) g/dL Hct 31.4 L (42-52) % MCV 97.5 (80-100) fL MCH 33.5 (25-34) pg MCHC 34.4 (32-36) g/dL RDW Std Deviation 49.0 H (36.4-46.3) fL RDW Coeff of Mckinley 13.7 (11.5-14.5) % Plt Count 200 (130-400) K/uL MPV 8.8 (7.4-10.4) fL Immature Gran % (Auto) % Neut % (Auto) % Lymph % (Auto) % [place] % (Auto) % Eos % (Auto) % Baso % (Auto) % Neut # (Auto) (1.4-6.5) K/uL Lymph # (Auto) (1.2-3.4) K/uL [place] # (Auto) (0.11-0.59) K/uL Eos # (Auto) (0-0.5) K/uL Baso # (Auto) (0-0.2) K/uL Immature Gran # (Auto) (0.00-0.02) K/uL Sodium 135 L 135 L (136-145) mmol/L Potassium 3.6 3.3 L (3.5-5.1) mmol/L Chloride 104 100 (98-107) mmol/L Carbon Dioxide 26 27 (21-32) mmol/L Anion Gap 5.0 8.0 (3-11) BUN 6 L 7 (7-18) mg/dl Creatinine 0.84 1.01 (0.6-1.4) mg/dl Est Cr Clr Drug Dosing 85.5 71.1 ml/min Est GFR ( Amer) 117.5 99.4 ml/min Est GFR (Non-Af Amer) 101.4 85.7 ml/min BUN/Creatinine Ratio 6.7 L 6.9 L (10-20) Glucose 105 H 142 H (70-99) mg/dl Calcium 8.5 8.2 L (8.5-10.1) mg/dl Phosphorus 2.1 L (2.5-4.9) mg/dl Magnesium 1.6 L (1.8-2.4) mg/dl Total Bilirubin 1.0 1.0 (0.2-1) mg/dl AST 31 37 (15-37) U/L ALT 29 33 (12-78) U/L Alkaline Phosphatase 97 95 (45-117) U/L Total Protein 6.1 L 6.1 L (6.4-8.2) gm/dl Albumin 2.4 L 2.5 L (3.4-5.0) gm/dl Globulin 3.7 3.6 (2.5-4.0) gm/dl Albumin/Globulin Ratio 0.6 L 0.7 L (0.9-2) 08/23/21 Range/Units 11:03 WBC 9.80 (4.8-10.8) K/uL RBC 3.52 L (4.7-6.1) M/uL Hgb 11.9 L (14.0-18.0) g/dL Hct 33.6 L (42-52) % MCV 95.5 (80-100) fL MCH 33.8 (25-34) pg MCHC 35.4 (32-36) g/dL RDW Std Deviation 46.6 H (36.4-46.3) fL RDW Coeff of Mckinley 13.4 (11.5-14.5) % Plt Count 210 (130-400) K/uL MPV 8.8 (7.4-10.4) fL Immature Gran % (Auto) 0.1 % Neut % (Auto) 87.7 % Lymph % (Auto) 7.4 % [place] % (Auto) 4.7 % Eos % (Auto) 0.0 % Baso % (Auto) 0.1 % Neut # (Auto) 8.59 H (1.4-6.5) K/uL Lymph # (Auto) 0.73 L (1.2-3.4) K/uL [place] # (Auto) 0.46 (0.11-0.59) K/uL Eos # (Auto) 0.00 (0-0.5) K/uL Baso # (Auto) 0.01 (0-0.2) K/uL Immature Gran # (Auto) 0.01 (0.00-0.02) K/uL Sodium (136-145) mmol/L Potassium (3.5-5.1) mmol/L Chloride (98-107) mmol/L Carbon Dioxide (21-32) mmol/L Anion Gap (3-11) BUN (7-18) mg/dl Creatinine (0.6-1.4) mg/dl Est Cr Clr Drug Dosing ml/min Est GFR ( Amer) ml/min Est GFR (Non-Af Amer) ml/min BUN/Creatinine Ratio (10-20) Glucose (70-99) mg/dl Calcium (8.5-10.1) mg/dl Phosphorus (2.5-4.9) mg/dl Magnesium (1.8-2.4) mg/dl Total Bilirubin (0.2-1) mg/dl AST (15-37) U/L ALT (12-78) U/L Alkaline Phosphatase (45-117) U/L Total Protein (6.4-8.2) gm/dl Albumin (3.4-5.0) gm/dl Globulin (2.5-4.0) gm/dl Albumin/Globulin Ratio (0.9-2) Medications Administered Current Inpatient Medications Acetaminophen (Acetaminophen 325 Mg Tab) 650 mg PO Q6H PRN PRN Reason: Fever/pain Stop: 09/19/21 09:00 Aspirin (Aspirin 81 Mg Ectab) 81 mg PO [facility] Stop: 09/19/21 09:29 Last Admin: 08/24/21 08:09 Dose: 81 mg Documented by: Calcium Carbonate (Calcium Carbonate 500 Mg Chewable Tab) 500 mg PO Q4H PRN PRN Reason: Indigestion Stop: 09/22/21 14:59 Last Admin: 08/23/21 15:31 Dose: 500 mg Documented by: Ezetimibe (Ezetimibe 10 Mg Tablet) 10 mg PO [facility] Stop: 09/19/21 09:29 Last Admin: 08/24/21 08:10 Dose: 10 mg Documented by: Famotidine (Famotidine 40 Mg Tablet) 40 mg PO [facility] Stop: 09/19/21 20:59 Last Admin: 08/23/21 20:11 Dose: 40 mg Documented by: Hydromorphone HCl (Hydromorphone Inj 0.5 Mg/0.5 Ml Syr) 0.5 mg IV Q3H PRN PRN Reason: Pain Stop: 09/05/21 17:12 Last Admin: 08/23/21 19:58 Dose: 0.5 mg Documented by: Promethazine HCl 12.5 mg/ (Sodium Chloride) 50.5 mls @ 202 mls/hr IV Q6H PRN PRN Reason: Nausea And Vomiting Stop: 09/19/21 09:00 Lorazepam (Ativan) 0.5 mg in 1 mls @ 1 mls/min IV Q4H PRN PRN Reason: Anxiety/Agitation Stop: 09/19/21 09:00 Last Admin: 08/22/21 16:15 Dose: 1 mls/min Documented by: Piperacillin Sod/Tazobactam (Sod 3.375 gm/ Dextrose) 115 mls @ 28.75 mls/hr IV Q8H [facility]; Protocol Stop: 08/30/21 13:59 Last Infusion: 08/24/21 08:45 Dose: Infused Documented by: Lactated Ringer's (Lr) 1,000 mls @ 125 mls/hr IV .Q8H [facility] Stop: 09/21/21 13:52 Last Admin: 08/24/21 05:17 Dose: 125 mls/hr Documented by: Acetaminophen (Ofirmev) 1,000 mg in 100 mls @ 400 mls/hr IV Q8H PRN PRN Reason: pain or fever Stop: 08/25/21 17:13 Isosorbide Mononitrate (Isosorbide [place] Extended Rel 60 Mg Tabcr) 60 mg PO DAILY [facility] Stop: 09/19/21 09:29 Last Admin: 08/24/21 08:10 Dose: 60 mg Documented by: Metoprolol Succinate (Metoprolol Succ 25mg Ext Rel Tab) [facility] Stop: 09/19/21 09:29 Last Admin: 08/24/21 08:10 Dose: 25 mg Documented by: Miscellaneous Information (Piperacill/Tazobac Consult Active) 1 ea N/A UD PRN PRN Reason: Consult Stop: 09/19/21 12:23 Pantoprazole Sodium (Pantoprazole 40 Mg Tab) 40 mg PO [facility] Stop: 09/19/21 09:29 Last Admin: 08/24/21 08:10 Dose: 40 mg Documented by: Sertraline HCl (Sertraline Hcl 50 Mg Tablet) 50 mg PO [facility] Stop: 09/19/21 09:44 Last Admin: 08/24/21 08:10 Dose: 50 mg Documented by: Ticagrelor (Ticagrelor 90 Mg Tab) 90 mg PO BID [facility] Stop: 09/19/21 09:44 Last Admin: 08/20/21 10:34 Dose: 90 mg Documented by: Tramadol HCl (Tramadol Hcl 50 Mg Tablet) 25 - 50 mg PO Q4H PRN PRN Reason: Pain Stop: 09/19/21 09:00 Last Admin: 08/23/21 07:38 Dose: 50 mg Documented by:
--- NOTE | 2021-08-24 13:52 | Discharge Summary ---
Date of Service August 24, 2021 Admission HPI Per Admitting Provider History obtained from patient and records. Medical history significant for CAD sp stent, HTN, hyperlipidemia, recurrent pancreatitis, Casanova's esophagus, anxiety/mood disorder, ongoing tobacco abuse. Last confinement December 2020 for non-STEMI and syncope secondary to Mobitz type II second-degree AV block. Subsequent angioplasty and MELLY placement. Patient admitted September 2015 for pancreatitis. Outpatient EUS October 2015 did not show CBD/gallbladder pathology. As per patient, intermittent central abdominal discomfort reminiscent of pancreatitis attack at a frequency of 3 attacks per year over the last few years. Unclear precipitants and spontaneously resolving as per patient. 3 days ago patient had achy bandlike central abdominal discomfort reminiscent of pancreatitis attack.. Discomfort different from GERD attack. Discomfort somewhat worse last night. Some nausea, no emesis. No fever, no chills. No chest pain, no S OB. No recent EtOH intake. Denies fatty food intake. Patient consulted ER for evaluation. MEDICAL HISTORY: As above. OPERATIONS: He has had a vasectomy. FAMILY HISTORY:Hypertension, stroke; no pancreatitis PERSONAL AND SOCIAL HISTORY: One-half pack daily. No chronic intake of alcoholic beverages. 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 Admission Exam Per Admitting Provider GENERAL: Pleasant, slightly anxious, no respiratory distress SKIN: Normal color, warm HEENT: Bespectacled, [place] palpebral conjunctivae, no ptosis, dry buccal mucosa NECK : Supple, no tenderness CHEST : CTA, no tenderness HEART : RRR, no obvious murmurs ABDOMEN: Excoriation over anterior abdomen, some distention, right upper quadrant/central abdominal tenderness EXTREMITIES : No LE swelling/tenderness, no other conspicuous deformities noted NEUROLOGIC : Coherent, no facial asymmetry, no other gross focality Principal Diagnosis Gallstone pancreatitis Choledochelithiasis Acute cholecystitis Esophagitis Gastritis Discharge Exam Physical Exam: Lying in bed comfortably Constitutional: well developed and well nourished; not ill appearing Eyes: PERRL, EOMI, conjunctivae normal, anicteric sclerae ENMT: external ear and nose normal, oropharynx normal Neck: supple Respiratory: no respiratory distress Auscultation: lungs clear to auscultation bilaterally Cardiovascular: Rate/Rhythm: regular rate and regular rhythm Heart Sounds: normal S1 and normal S2; no murmur Extremities: no edema Gastrointestinal (Abdomen): normal bowel sounds; abdomen not distended Percussion/Palpation: + abdomen tender (Mildly tender all over without any guarding and no rigidity), abdomen soft Musculoskeletal: No acute arthritis in any joint Neurologic: Alert, awake and oriented x3. No focal sensory and motor deficit appreciated Psychiatric: A+Ox3, euthymic affect Lymphatic: no lymphedema Discharge Data Allergies Allergy/AdvReac Type Severity Reaction Status Date / Time No Known Allergies Allergy Verified 08/20/21 02:37 Consultations 08/20/21 04:51 ED Decision to Admit Stat 08/20/21 09:01 Consult Gastroenterology Routine 08/20/21 10:41 Consult General Surgery Routine 08/20/21 12:50 Consult Cardiology Routine Procedures Performed Operation Date: 08/22/21 09:15 Actual Procedures p Endoscopic Ultrasonography Upper, (Not Applicable) - Kike Gross DO s Endoscopic Retrograde Cholangiopancreatomy with stent placement, shpincterotomy(Not Applicable) - Kike Gross DO s Laparoscopic Cholecystectomy(Not Applicable) - Taras Davidson DO, FACS s Esophagogastroduodenoscopy(Not Applicable) - Kike Gross DO Ordered Studies 08/20/21 02:24 CT abd pelvis IV con only Urgent 08/20/21 05:55 US gallbladder Urgent 08/20/21 09:47 MR MRCP Routine 08/22/21 09:15 FL ERCP biliary ductal Routine 08/22/21 09:31 US upper EUS PACS images Routine Hospital Course (1) Gallbladder disease: (2) Recurrent pancreatitis: Gallstone pancreatitis Choledochelithiasis Acute cholecystitis Esophagitis Gastritis Patient presented with reports of abdominal pain, nausea, poor appetite x 4 days and was found to have recurrent pancreatitis. CT ABD/pelvis - Fat stranding and edema about the pancreatic head likely representing acute pancreatitis. Calcifications in the pancreatic parenchyma may represent chronic pancreatitis changes RUQ US - Distended gallbladder with sludge and stones and minimal wall thickening. Cystitis cannot be excluded, although this may also represent secondary changes from pancreatitis MRCP without biliary ductal dilatation. Mild infiltration adjacent to the pancreatic head and uncinate process suggestive of acute pancreatitis. No peripancreatic fluid collection. No pancreatic ductal dilatation. No change in gallbladder distention. No gallbladder wall thickening or pericholecystic infiltration. 4 mm gallstone within the gallbladder S/p EGD/ERCP by Dr. Gross. EGD revealed esophagitis concerning for Casanova's esophagus, gastritis, both biopsied. Continue PPI. ERCP with choledocholithiasis found, biliary and pancreatic stents placed Per GI, clear liquid diet, avoid NSAIDs, repeat ERCP in 6 weeks for stent removal POD # 2 s/p lap rosas. Discussed with surgery and he can be discharged home Advance diet today, which he tolerated Restart Brilinta today Appreciate cardiology input and recommendation Plan is for discharge home this afternoon He will not need any more antibiotic (3) CAD (coronary artery disease): Appears stable, no reports of chest pain or recent anginal symptoms EKG without acute ST changes 2017-RCA stent x2, 07/2020-STEMI s/p PCI to left circumflex with 2 MELLY, 12/2020- NSTEMI s/p 3 Xience MELLY to the distal aspect of prior stent of the left posterior lateral branch vessel. Balloon angioplasty performed of prior distal circumflex stent Appreciate cardiology input and recommendation All of his cardiac medications will be continued on discharge (4) HLD (hyperlipidemia): Continue statin and Zetia (5) Barretts esophagus: Continue PPI Will need to have repeat ERCP in 6 weeks for stent removal No NSAID use except continue aspirin (6) DVT prophylaxis: SCDs for now Total Time Total Time Spent Total Time Spent (In Minutes): 40 Discharge Plan Discharge Items Patient Disposition: Home - Self-Care Reason For Visit: PANCREATITIS Discharge Diagnosis: gallstone pancreatitis laparoscopic cholecystectomy Activity: Per Instructions section Lifting: No more than 10 pounds Bathing Comment: may shower; no soaking in tubs/pools Exercise/Sports: Wait until after follow-up appointment Driving/Machine Use: no driving while taking narcotics for pain Non-emergency contact: Primary Care Provider and Surgeon Call non-emergency contact if: you have any medication questions, your symptoms worsen, your pain is not controlled, your pain is worsening, your pain is concerning for you, you have a fever, your temperature is above 101.5, your wound has increased redness, your wound has increased drainage and your wound pain has increased Follow-up/Referrals: Taras Davidson DO, LAURA [Physician] - (Please call to schedule follow up in clinic within 2 weeks) Wade Bragg MD [Primary Care Provider] - 08/28/21 12:00 pm (Date & Time 08/28/2021 12:00 PM Provider Tanvir Valdez MD [facility] ) Diet: Heart Healthy Addtl Attending Provider Instructions: Follow-up with your primary care doctor, the appointment was scheduled for you or August 28. You will also need to follow-up with your surgeon, contact information above. You can restart taking Brilinta Continue all of your heart medications as before You need to have a repeat ERCP with stent removal in 6 weeks - [facility] office will contact you Please keep appointments with your healthcare providers Do not take any NSAIDs (such as as Motrin, naproxen, Aleve). You can continue taking aspirin. Pending Studies at Discharge: Yes Studies:: surgical pathology Stand-Alone Forms: [facility], [facility]io[facility] Pain Management, Smoking Cessation Medications and DC Order Prescriptions: New oxycodone-acetaminophen [Percocet] 5-325 mg tablet 1 - 2 tab PO .q4-6h PRN (Reason: pain, for initial therapy, max 6 tabs per day) Qty: 15 RF: 0 Continued aspirin 81 mg tablet,delayed release (DR/EC) 81 mg PO QAM RF: 0 sertraline [Zoloft] 50 mg tablet 50 mg PO QAM RF: 0 Brilinta 90 mg Tablet 90 mg PO BID 30 Days Qty: 60 RF: 3 nitroglycerin [Nitrostat] 0.4 mg tablet, sublingual 0.4 mg Sublingual UD PRN (Reason: Chest Pain) RF: 0 famotidine 40 mg tablet 40 mg PO HS RF: 0 dicyclomine 10 mg capsule 10 mg PO BID PRN (Reason: Abdominal Pain) RF: 0 ezetimibe 10 mg tablet 10 mg PO QAM RF: 0 rosuvastatin 40 mg tablet 40 mg PO QAM RF: 0 magnesium oxide 400 mg magnesium Tablet 400 mg PO QAM RF: 0 metoprolol succinate 25 mg tablet extended release 24 hr 25 mg PO QAM RF: 0 isosorbide mononitrate 60 mg tablet extended release 24 hr 60 mg PO DAILY RF: 0 pantoprazole 40 mg tablet,delayed release (DR/EC) 40 mg PO QAM RF: 0 Discharge Orders: Discharge Order (Routine); Ordered 08/24/21 Ordered By: Regino Vazquez/Other Patient Handouts: Cholecystectomy Laparoscopic Dc, Eating Heart- Healthy Foods Admission Data Admit Date/Time: 08/20/21 05:57 Attending Provider: Regino Blunt Admit Provider: Fahad Anne Primary Care Provider: Wade Bragg Other Providers: Fahad Anne ; Matheus Luna ; Shari Wilson ; Kiran Dimas ; Krystle Matamoros ; Nasir Bey ; Kike Gross ; Pawel Carver ; Abdiel Dyer ; Neda Sweeney ; Sunni Alves ; Taylor Boyer ; Francesca Walters ; Marianela Epstein ; Ady Lnudberg ; Jeremy Whittaker ; Regino Blunt ; Fay Thayer Other Interventions: Discharge Summary Assessment (RN) Last Done: 08/24/21 13:21
== END 2021-08-24 14:07 | disposition home or self-care (01) | DRG 408 ==
LOC: ED 02:09 → SUATTDRO 05:57 → 3N 05:57

== ENCOUNTER 2021-09-21 06:30 | Inpatient (IN) ==
[2021-09-21] MEDS ORDERED: ONDANSETRON INJ 2 MG/ML 2 ML VIAL IV STA (07:19)
[2021-09-21] MEDS ORDERED: MoRPHine SULFATE 4 MG/ML 1 ML CARP\\VIAL IV STA ×3 (07:19→20:32)
[2021-09-21] MEDS ORDERED: SODIUM CHLORIDE 0.9% 1000ML 1,000 ML IV ONE (07:19)
--- NOTE | 2021-09-21 07:25 | Emergency Department Note ---
History of Present Illness General Chief complaint: Abdominal Pain Stated complaint: ABD PAIN Time Seen by Provider: 09/21/21 07:04 Source: patient Mode of arrival: ambulatory Limitations: no limitations History of Present Illness Maximum Pain Intensity: 8 This patient is a 51-year-old male who presents to the emergency department for evaluation of abdominal pain. Patient states that he had his gallbladder remove d a few weeks ago and has had some issues since then. His pain became much more severe yesterday. He reports pain is located in the middle of his abdomen. He has associated nausea, no vomiting. He denies diarrhea or constipation. He denies any fevers. He rates his discomfort an 8/10. He does report a significant weight loss in the past few weeks. He states that he did follow-up with his surgeon and was cleared to go back to work. Home Medications Medication Instructions Recorded Confirmed Type aspirin 81 mg tablet,delayed 81 mg PO QAM 10/06/18 09/21/21 History release sertraline 50 mg tablet (Zoloft) 50 mg PO QAM 10/06/18 09/21/21 History nitroglycerin 0.4 mg sublingual 0.4 mg SUBLINGUAL UD PRN 10/07/18 09/21/21 History tablet (Nitrostat) ticagrelor 90 mg tablet (Brilinta) 90 mg PO BID 30 Days #60 tab 08/11/20 09/21/21 Rx dicyclomine 10 mg capsule 10 mg PO BID PRN 12/06/20 09/21/21 History ezetimibe 10 mg tablet 10 mg PO QAM 12/06/20 09/21/21 History famotidine 40 mg tablet 40 mg PO HS 12/06/20 09/21/21 History isosorbide mononitrate 60 mg 60 mg PO DAILY 12/06/20 09/21/21 History tablet,extended release 24 hr magnesium oxide 400 mg PO QAM 12/06/20 09/21/21 History metoprolol succinate 25 mg 25 mg PO QAM 12/06/20 09/21/21 History tablet,extended release 24 hr rosuvastatin 40 mg tablet 40 mg PO QAM 12/06/20 09/21/21 History pantoprazole 40 mg tablet,delayed 40 mg PO QAM 08/20/21 09/21/21 History release Allergies Allergy/AdvReac Type Severity Reaction Status Date / Time No Known Allergies Allergy Verified 08/20/21 02:37 Past Med/Surg History Medical History Barretts esophagus CAD (coronary artery disease) 2017-RCA stent x 2 07/2020-STEMI, s/p PCI to left circumflex with 2 MELLY. Post procedure complicated by V. fib arrest requiring defibrillation. 12/2020-NSTEMI s/p 3 Xience MELLY to the distal aspect of prior stent of the left posterior lateral branch vessel Depression RADHA (generalized anxiety disorder) GERD (gastroesophageal reflux disease) Grade II diastolic dysfunction HLD (hyperlipidemia) Splenic infarct Tobacco abuse Surgical History History of vasectomy Hx laparoscopic cholecystectomy (08/22/21) Laparoscopic Cholecystectomy Dr. Davidson 08/22/2021 Family History Other Diabetes Stroke Social History Smoking Status: Current some day smoker Tobacco Type: Cigarettes Years Smoked: 31; Cigarettes Per Day: 2; Second Hand Exposure: No; Hx Alcohol Use: No Hx Substance Use: No Preferred Language: Latvian Communication Ability: Effective Leasing Professional Required: No Beliefs That Will Affect Care: None marital status: Single Current Living Situation: Alone current occupational status: employed Feels Safe at Home: Yes Assistive Devices: Glasses Review of Systems A total of 10 systems reviewed and were otherwise negative Physical Exam Vital Signs Vital Signs - 24 hr 09/21/21 06:33 09/21/21 07:53 09/21/21 08:30 Temperature 36.7 C Temperature Source Temporal Artery Scan Pulse Rate 105 H Pulse Rate [Apical] 67 Respiratory Rate 16 18 Respiratory Effort / Characteristics Non-Labored Spontaneous Respiratory Depth Normal Blood Pressure 123/82 Blood Pressure [Left Arm] 129/98 Blood Pressure Mean 95 Blood Pressure Mean [Left Arm] 108 Pulse Oximetry 98 96 96 Oxygen Delivery Method Room Air Room Air Room Air Sepsis Recent Fever Within 48 Hours No Sepsis New/Unexplained Change in Mental Status No Sepsis Action Taken by Nursing No Action Required 09/21/21 10:00 Temperature Temperature Source Pulse Rate Pulse Rate [Apical] 70 Respiratory Rate 18 Respiratory Effort / Characteristics Respiratory Depth Blood Pressure Blood Pressure [Left Arm] 150/98 H Blood Pressure Mean Blood Pressure Mean [Left Arm] 115 Pulse Oximetry 96 Oxygen Delivery Method Room Air Sepsis Recent Fever Within 48 Hours Sepsis New/Unexplained Change in Mental Status Sepsis Action Taken by Nursing VITALS: Vitals are noted on the nurse's note and reviewed by myself. GENERAL: This is a 51-year-old male, in no acute distress, well-developed well- nourished. SKIN: The skin was without rashes. EARS: External auditory canals clear, tympanic membranes pearly zavala without erythema or effusion bilaterally. EYES: Pupils equal round and reactive to light and accommodation. MOUTH: Mucous membranes moist. Tonsils are not enlarged. Pharynx without erythema or exudate. NECK: Supple without nuchal rigidity. No lymphadenopathy. HEART: Regular rate and rhythm without murmurs gallops or rubs. LUNGS: Clear to auscultation bilaterally without wheezes, rales or rhonchi. ABDOMEN: Positive bowel sounds x 4. Soft, generalized tenderness to the mid abdomen. No guarding or rebound tenderness. NEURO: Patient was alert and oriented to person place and time. Course Consultations Consultation #1: Dr. Hoover - General surgery Consultation #2: HAKAN Chen - [facility] hospitalist Administered Medications Lactated Ringer's (Lr) 1,000 mls @ 200 mls/hr IV .Q5H ALYCIA Stop: 10/21/21 12:29 Last Admin: 09/21/21 16:04 Dose: 200 mls/hr Documented by: [id number] Morphine Sulfate (Morphine Sulfate 4 Mg/Ml 1 Ml Carp\Vial) 4 mg IV Q4H PRN PRN Reason: Pain Stop: 10/05/21 15:42 Last Admin: 09/21/21 16:00 Dose: 4 mg Documented by: [id number] Ondansetron HCl (Ondansetron Inj 2 Mg/Ml 2 Ml Vial) 4 mg IV Q6H PRN PRN Reason: Nausea Stop: 10/21/21 15:42 Last Admin: 09/21/21 15:59 Dose: 4 mg Documented by: [id number] Discontinued Medications Sodium Chloride (Nss 1000ml) 1,000 mls @ 999 mls/hr IV .Q1H1M ONE Stop: 09/21/21 08:19 Last Infusion: 09/21/21 09:06 Dose: 0 mls/hr Documented by: [id number] Admin: 09/21/21 07:45 Dose: 999 mls/hr Documented by: [id number] Ioversol (Optiray 320 100ml) 94 ml IV ONCE ONE Stop: 09/21/21 09:05 Last Admin: 09/21/21 09:05 Dose: 94 ml Documented by: [id number] Morphine Sulfate (Morphine Sulfate 4 Mg/Ml 1 Ml Carp\Vial) 4 mg IV NOW STA Stop: 09/21/21 07:20 Last Admin: 09/21/21 07:45 Dose: 4 mg Documented by: [id number] Morphine Sulfate (Morphine Sulfate 4 Mg/Ml 1 Ml Carp\Vial) 4 mg IV NOW STA Stop: 09/21/21 10:48 Last Admin: 09/21/21 11:02 Dose: 4 mg Documented by: [id number] Ondansetron HCl (Ondansetron Inj 2 Mg/Ml 2 Ml Vial) 4 mg IV NOW STA Stop: 09/21/21 07:20 Last Admin: 09/21/21 07:45 Dose: 4 mg Documented by: [id number] Medical Decision Making Differential Diagnosis Appendicitis, testicular torsion, infections, diverticulitis, UTI, obstruction, mesenteric ischemia, aortic pathology, inflammatory bowel disease, renal colic, PUD, pancreatitis, biliary pathology, hernia, volvulus, constipation, as well as other pathologies. Medical Records Attestation: I reviewed the patient's medical records. Home Medications Current Medication List: was personally reviewed by me Laboratory Data Attestation: I reviewed the patient's lab results. Result diagrams: 09/21/21 07:40 09/21/21 07:40 Lab Results 09/21/21 09/21/21 Range/Units 07:40 07:40 WBC 5.82 (4.8-10.8) K/uL RBC 3.86 L (4.7-6.1) M/uL Hgb 12.4 L (14.0-18.0) g/dL Hct 37.3 L (42-52) % MCV 96.6 (80-100) fL MCH 32.1 (25-34) pg MCHC 33.2 (32-36) g/dL RDW Std Deviation 47.7 H (36.4-46.3) fL RDW Coeff of Mckinley 13.5 (11.5-14.5) % Plt Count 407 H (130-400) K/uL MPV 9.1 (7.4-10.4) fL Immature Gran % (Auto) 0.2 % Neut % (Auto) 49.3 % Lymph % (Auto) 35.2 % [place] % (Auto) 6.4 % Eos % (Auto) 7.9 % Baso % (Auto) 1.0 % Neut # (Auto) 2.87 (1.4-6.5) K/uL Lymph # (Auto) 2.05 (1.2-3.4) K/uL [place] # (Auto) 0.37 (0.11-0.59) K/uL Eos # (Auto) 0.46 (0-0.5) K/uL Baso # (Auto) 0.06 (0-0.2) K/uL Immature Gran # (Auto) 0.01 (0.00-0.02) K/uL Sodium 140 (136-145) mmol/L Potassium 4.0 (3.5-5.1) mmol/L Chloride 110 H (98-107) mmol/L Carbon Dioxide 23 (21-32) mmol/L Anion Gap 7.0 (3-11) BUN 16 (7-18) mg/dl Creatinine 1.18 (0.6-1.4) mg/dl Est Cr Clr Drug Dosing 54.9 ml/min Est GFR ( Amer) 81.7 ml/min Est GFR (Non-Af Amer) 70.5 ml/min BUN/Creatinine Ratio 13.2 (10-20) Glucose 98 (70-99) mg/dl Calcium 9.0 (8.5-10.1) mg/dl Total Bilirubin 0.2 (0.2-1) mg/dl AST 11 L (15-37) U/L ALT 16 (12-78) Alkaline Phosphatase 95 (45-117) U/L Troponin I < 0.015 (0-0.045) ng/ml Total Protein 6.6 (6.4-8.2) gm/dl Albumin 2.8 L (3.4-5.0) gm/dl Globulin 3.8 (2.5-4.0) gm/dl Albumin/Globulin Ratio 0.7 L (0.9-2) Lipase 803 H (73-393) U/L Imaging Data Attestation: I personally reviewed and interpreted this imaging study as follows: Radiologist's Impression: Abdomen/Pelvis CT 09/21/21 07:19 CT abd pelvis IV con only CLINICAL HISTORY: abdominal pain s/p cholecystectomy TECHNIQUE: Helical axial images of the abdomen and pelvis were obtained and displayed. Automated dose lowering techniques and/or adjustment according to patient size were utilized for this exam. This exam was performed with intravenous contrast. COMPARISON: None available at the time of this dictation. FINDINGS: Lower chest: No acute abnormality Liver: Unremarkable. No focal lesions are seen. Gallbladder and biliary tree: Cholecystectomy clips are seen in the right upper quadrant. There is a rounded fluid-filled structure favored to represent remnant gallbladder. Biliary and pancreatic duct drains are seen. Pancreas: Fat stranding is seen about the pancreas. Spleen: Splenule is incidentally noted. Adrenals: Unremarkable. Kidneys and ureters: Previously noted renal cysts are stable. Bladder: Unremarkable. Reproductive organs: Unremarkable. Bowel: Unremarkable appearance of the bowel. The appendix is normal. A hiatal hernia is seen. Lymph nodes Retroperitoneal: Subcentimeter lymph nodes are noted. Mesenteric: Unremarkable. Pelvic: Unremarkable. Peritoneum: Normal Vessels: Atherosclerotic calcifications are seen. Abdominal wall: Unremarkable. Bones: Unremarkable. IMPRESSION: 1. Status post cholecystectomy with likely a remnant gallbladder remaining in the gallbladder fossa. 2. There is peripancreatic stranding and possible pancreatic edema with seen in pancreatitis. 3. Additional findings as above. ACT 112: Negative or not required by law. Electronically signed by: Vadim Cunha M.D. 09/21/2021 9:52 AM MDM Narrative Continuous potline monitor: Order was placed for continuous potline monitor. Patient was placed on the potline monitor. Patient was noted to be in sinus tachycardia at an initial rate of 105 bpm. The patient is a 51-year-old male who presents today complaining of abdominal pain. Patient had a recent cholecystectomy. His CT today is consistent with pancreatitis as well as possible remnant gallbladder in the gallbladder fossa. Lipase was elevated. Patient has no leukocytosis, normal LFTs. Case was discussed with the general surgeon on-call, who recommended admission to the hospital service and GI consultation. [place] [facility] [place], who agreed to evaluate the patient for further care. Impression & Plan Acute pancreatitis Discharge Plan Visit Data Chief Complaint: Abdominal Pain Stated Complaint: ABD PAIN ED Provider: Jean Pierre Bryant ED Midlevel Provider: Nimo Avilez Discharge Problem: Acute pancreatitis Patient Disposition: Admitted As Inpatient Discharge Instructions Interventions: ED Discharge Assessment Last Done: 09/21/21 14:18 Discharge Problem: Acute pancreatitis Qualifiers: Pancreatitis type: unspecified pancreatitis type Acute pancreatitis complication: unspecified Qualified Code(s): K85.90 - Acute pancreatitis without necrosis or infection, unspecified
[2021-09-21 07:56] LABS: Basophils # (auto) 0.06 K/uL (0-0.2); Eosinophils # (auto) 0.46 K/uL (0-0.5); Eosinophils % (auto) 7.9 %; Hematocrit (blood only) 37.3 % (42-52); Hemoglobin 12.4 g/dL (14.0-18.0); Immature Granulocytes # (auto) 0.01 K/uL (0.00-0.02); Immature Granulocytes % (auto) 0.2 %; Lymphocytes # (auto) 2.05 K/uL (1.2-3.4); Lymphocytes % (auto) 35.2 %; Mean Corpuscular Hemoglobin 32.1 pg (25-34); Mean Corpuscular Hgb Conc 33.2 g/dL (32-36); Mean Corpuscular Volume 96.6 fL (80-100); Mean Platelet Volume 9.1 fL (7.4-10.4); Monocytes # (auto) 0.37 K/uL (0.11-0.59); Monocytes % (auto) 6.4 %; Neutrophils # (auto) 2.87 K/uL (1.4-6.5); Neutrophils % (auto) 49.3 %; Platelet Count 407 K/uL (130-400); RDW Coefficient of Variation 13.5 % (11.5-14.5); RDW Standard Deviation 47.7 fL (36.4-46.3); Red Blood Count 3.86 M/uL (4.7-6.1); White Blood Count 5.82 K/uL (4.8-10.8)
[2021-09-21 08:24] LABS: Alanine Aminotransferase 16 (12-78); Albumin Level 2.8 gm/dl (3.4-5.0); Aspartate Aminotransferase 11 U/L (15-37); BUN Creatinine Ratio 13.2 (10-20); Blood Urea Nitrogen 16 mg/dl (7-18); Carbon Dioxide 23 mmol/L (21-32); Chloride 110 mmol/L (98-107); Creatinine Clr Calc Pharmacy 54.9 ml/min; Est GFR (African American) 81.7 ml/min; Est GFR (Non-African American) 70.5 ml/min; Glucose 98 mg/dl (70-99); Lipase 803 U/L (73-393); Sodium 140 mmol/L (136-145)
[2021-09-21 08:28] LABS: Albumin Globulin Ratio 0.7 (0.9-2); Alkaline Phosphatase 95 U/L (45-117); Bilirubin,Total 0.2 mg/dl (0.2-1); Globulin 3.8 gm/dl (2.5-4.0); Total Protein 6.6 gm/dl (6.4-8.2); Troponin I < 0.015 ng/ml (0-0.045)
[2021-09-21] MEDS ORDERED: OPTIRAY 320 100ml IV ONE (09:04)
--- NOTE | 2021-09-21 09:54 | CT Scan Report ---
CT abd pelvis IV con only CLINICAL HISTORY: abdominal pain s/p cholecystectomy TECHNIQUE: Helical axial images of the abdomen and pelvis were obtained and displayed. Automated dose lowering techniques and/or adjustment according to patient size were utilized for this exam. This e xam was performed with intravenous contrast. COMPARISON: None available at the time of this dictation. FINDINGS: Lower chest: No acute abnormality Liver: Unremarkable. No focal lesions are seen. Gallbladder and biliary tree: Cholecystectomy clips are seen in the right upper quadrant. There is a rounded fluid-filled structure favored to represent remnant gallbladder. Biliary and pancreatic duct drains are seen. Pancreas: Fat stranding is seen about the pancreas. Spleen: Splenule is incidentally noted. Adrenals: Unremarkable. Kidneys and ureters: Previously noted renal cysts are stable. Bladder: Unremarkable. Reproductive organs: Unremarkable. Bowel: Unremarkable appearance of the bowel. The appendix is normal. A hiatal hernia is seen. Lymph nodes Retroperitoneal: Subcentimeter lymph nodes are noted. Mesenteric: Unremarkable. Pelvic: Unremarkable. Peritoneum: Normal Vessels: Atherosclerotic calcifications are seen. Abdominal wall: Unremarkable. Bones: Unremarkable. IMPRESSION: 1. Status post cholecystectomy with likely a remnant gallbladder remaining in the gallbladder fossa. 2. There is peripancreatic stranding and possible pancreatic edema with seen in pancreatitis. 3. Additional findings as above. ACT 112: Negative or not required by law. Electronically signed by: Vadim Cunha M.D. 09/21/2021 9:52 AM
--- NOTE | 2021-09-21 13:20 | History & Physical Report ---
Date of Service September 21, 2021 Assessment & Plan (1) Acute pancreatitis: (2) Hx laparoscopic cholecystectomy: Plan: -Admit to [facility] -Patient presenting from home with reports of mid abdominal pain and nausea. History of gallstone pancreatitis s/p biliary stent and laparoscopic cholecystectomy on 08/22/2021 -In the ED, lipase [address] ABD/pelvis suggestive of pancreatitis and a remnant gallbladder remaining in the gallbladder fossa -? Due to biliary stent -will consult GI, case discussed with Dr. Rosales, no indication for urgent intervention at this time-patient will be evaluated by Dr. Gross tomorrow -LFTs WNL, afebrile, no leukocytosis -General surgery consult regarding CT findings regarding remnant gallbladder -N.p.o., LR at 200 cc/hour, pain and nausea control -Noted triglycerides checked last month were WNL (3) CAD (coronary artery disease): Plan: -Appears stable, no reports chest pain -Continue ASA, Brilinta, beta-shay, nitrate, statin, Zetia (4) Barretts esophagus: Plan: -Continue PPI (5) DVT prophylaxis: Plan: -SCDs, ambulate History of Present Illness Chief Complaint: Abdominal pain, nausea Primary Care Provider: Wade Bragg MD 51-year-old male with PMH CAD, Casanova's esophagus, gallstone pancreatitis s/p biliary stent and cholecystectomy 08/22/2021, and other problems below presents the ED for evaluation of abdominal pain and nausea. Patient reports he had been feeling well since his cholecystectomy however yesterday, he developed a mid abdominal pain with associated nausea. No vomiting or diarrhea. Denies fevers and chills. Reports that he has been avoiding high-fat and greasy foods. No alcohol use. Denies chest pain shortness of breath. No lightheadedness, dizziness, diaphoresis, syncopal events. No urinary symptoms. In the ED, labs show lipase 800. Patient is hemodynamically stable. CT ABD/pelvis shows signs of pancreatitis. Patient was given IVF, IV Zofran, IV morphine. Allergies Allergy/AdvReac Type Severity Reaction Status Date / Time No Known Allergies Allergy Verified 08/20/21 02:37 Home Medications Medication Instructions Recorded Confirmed Type aspirin 81 mg tablet,delayed 81 mg PO QAM 10/06/18 09/21/21 History release sertraline 50 mg tablet (Zoloft) 50 mg PO QAM 10/06/18 09/21/21 History nitroglycerin 0.4 mg sublingual 0.4 mg SUBLINGUAL UD PRN 10/07/18 09/21/21 Hist ory tablet (Nitrostat) ticagrelor 90 mg tablet (Brilinta) 90 mg PO BID 30 Days #60 tab 08/11/20 09/21/21 Rx dicyclomine 10 mg capsule 10 mg PO BID PRN 12/06/20 09/21/21 History ezetimibe 10 mg tablet 10 mg PO QAM 12/06/20 09/21/21 History famotidine 40 mg tablet 40 mg PO HS 12/06/20 09/21/21 History isosorbide mononitrate 60 mg 60 mg PO DAILY 12/06/20 09/21/21 History tablet,extended release 24 hr magnesium oxide 400 mg PO QAM 12/06/20 09/21/21 History metoprolol succinate 25 mg 25 mg PO QAM 12/06/20 09/21/21 History tablet,extended release 24 hr rosuvastatin 40 mg tablet 40 mg PO QAM 12/06/20 09/21/21 History pantoprazole 40 mg tablet,delayed 40 mg PO QAM 08/20/21 09/21/21 History release Past Med/Surg History Medical History Barretts esophagus CAD (coronary artery disease) 2017-RCA stent x 2 07/2020-STEMI, s/p PCI to left circumflex with 2 MELLY. Post procedure complicated by V. fib arrest requiring defibrillation. 12/2020-NSTEMI s/p 3 Xience MELLY to the distal aspect of prior stent of the left posterior lateral branch vessel Depression RADHA (generalized anxiety disorder) GERD (gastroesophageal reflux disease) Grade II diastolic dysfunction HLD (hyperlipidemia) Splenic infarct Tobacco abuse Surgical History History of vasectomy Hx laparoscopic cholecystectomy (08/22/21) Laparoscopic Cholecystectomy Dr. Davidson 08/22/2021 Family History Other Diabetes Stroke Social History Smoking Status: Current every day smoker Tobacco Type: Cigarettes Years Smoked: 31; Cigarettes Per Day: 2; Second Hand Exposure: No; Do You Dip or Chew Tobacco: No; Tobacco Cessation Education Requested by Patient: No Hx Alcohol Use: No Hx Substance Use: No Preferred Language: Slovenian Communication Ability: Effective Work Force Advisor Required: No Beliefs That Will Affect Care: None marital status: Single Current Living Situation: Alone current occupational status: employed Other Information That Helps Us Care for You: No Feels Safe at Home: Yes Safety Concerns: Feels Safe At This Time Assistive Devices: None Review of Systems Review of Systems: ROS per HPI, all other systems reviewed and negative Physical Exam Constitutional: WD/WN, vitals as above Eyes: PERRL, conjunctivae normal, anicteric sclerae ENMT: external ear and nose normal, oropharynx normal Respiratory: normal respiratory effort, lungs clear to auscultation Cardiovascular: Rate/Rhythm: regular rate and regular rhythm Vessels: normal peripheral pulses Extremities: no edema Gastrointestinal (Abdomen): Inspection/Auscultation: normal bowel sounds; abdomen not distended Percussion/Palpation: + abdomen tender (Epigastric) and abdomen soft; no guarding, abdomen not rigid and no hepatosplenomegaly Musculoskeletal: no cyanosis or clubbing, extremities motor strength 5/5 Skin: no rashes, warm and dry Neurologic: PERRL, EOMI, accommodation nl, no face palsy, no dysarthria Psychiatric: A+Ox3, euthymic affect Results & Data Results & Data ([facility]) Vital Signs (Past 12 Hours) Vital Signs Temp Pulse Pulse Resp BP BP Pulse Ox 09/21/21 12:00 53 L 18 142/90 H 96 09/21/21 10:00 70 18 150/98 H 96 09/21/21 08:30 67 18 129/98 96 09/21/21 07:53 96 09/21/21 06:33 36.7 C 105 H 16 123/82 98 Laboratory Results Short CBC 09/21/21 Range/Units 07:40 WBC 5.82 (4.8-10.8) K/uL Hgb 12.4 L (14.0-18.0) g/dL Hct 37.3 L (42-52) % Plt Count 407 H (130-400) K/uL BMP 09/21/21 07:40 Sodium 140 Potassium 4.0 Chloride 110 H Carbon Dioxide 23 BUN 16 Creatinine 1.18 Glucose 98 Calcium 9.0 Cardiac Enzymes 09/21/21 Range/Units 07:40 Troponin I < 0.015 (0-0.045) ng/ml Liver Function 09/21/21 Range/Units 07:40 Total Bilirubin 0.2 (0.2-1) mg/dl AST 11 L (15-37) U/L ALT 16 (12-78) Alkaline Phosphatase 95 (45-117) U/L Albumin 2.8 L (3.4-5.0) gm/dl Diagnostic Findings Abdomen/Pelvis CT 09/21/21 07:19 CT abd pelvis IV con only CLINICAL HISTORY: abdominal pain s/p cholecystectomy TECHNIQUE: Helical axial images of the abdomen and pelvis were obtained and displayed. Automated dose lowering techniques and/or adjustment according to patient size were utilized for this exam. This exam was performed with intravenous contrast. COMPARISON: None available at the time of this dictation. FINDINGS: Lower chest: No acute abnormality Liver: Unremarkable. No focal lesions are seen. Gallbladder and biliary tree: Cholecystectomy clips are seen in the right upper quadrant. There is a rounded fluid-filled structure favored to represent remnant gallbladder. Biliary and pancreatic duct drains are seen. Pancreas: Fat stranding is seen about the pancreas. Spleen: Splenule is incidentally noted. Adrenals: Unremarkable. Kidneys and ureters: Previously noted renal cysts are stable. Bladder: Unremarkable. Reproductive organs: Unremarkable. Bowel: Unremarkable appearance of the bowel. The appendix is normal. A hiatal hernia is seen. Lymph nodes Retroperitoneal: Subcentimeter lymph nodes are noted. Mesenteric: Unremarkable. Pelvic: Unremarkable. Peritoneum: Normal Vessels: Atherosclerotic calcifications are seen. Abdominal wall: Unremarkable. Bones: Unremarkable. IMPRESSION: 1. Status post cholecystectomy with likely a remnant gallbladder remaining in the gallbladder fossa. 2. There is peripancreatic stranding and possible pancreatic edema with seen in pancreatitis. 3. Additional findings as above. ACT 112: Negative or not required by law. Electronically signed by: Vadim Cunha M.D. 09/21/2021 9:52 AM Code Status & VTE Plan VTE Prophylaxis Plan VTE Prophylaxis will be ordered: Yes Supervising Physician Co-Signing Physician Notes Pt seen and examined by me, care coordinated w/ L. Sheryl MCCLENDON, pls refer to her note above for further detail. 51 y/o M w/ CAD, Casanova's esophagus, gallstone pancreatitis s/p biliary stent and cholecystectomy 08/22/2021, who presents w/abdominal pain and nausea, found to have elevated lipase in ER. CT ABD/pelvis shows signs of pancreatitis and ? remnant gallbladder.� Patient was given IVF, IV Zofran, IV morphine.� Patient is currently laying in bed, in no acute distress. He does report pain around his umbilicus. No vomiting. No fevers chills. He is alert oriented answering questions appropriately. Lungs are clear auscultation b/l w/o any wheezing, rhonchi or crackles. Heart sounds regular. GI service and surgical service contacted. Continue IV fluids, pain management, antiemetics. Amelia Blunt MD
[2021-09-21 13:27] LABS: Appearance Urine Clear (Clear); Bilirubin Urine Negative (Negative); Blood Urine Negative (Negative); Color Urine Yellow; Glucose Urine UA Negative (Negative); Ketones Urine Negative (Negative); Leukocyte Esterase Urine Negative (Negative); Nitrite Urine Negative (Negative); Protein Urine Negative (Negative); Specific Gravity Urine > 1.045 (1.000-1.030); Urobilinogen Urine Negative (Negative)
[2021-09-21] MEDS ORDERED: ACETAMINOPHEN 325 MG TAB PO PRN (15:43)
[2021-09-21] MEDS: ONDANSETRON INJ 2 MG/ML 2 ML VIAL IV PRN ×2 (15:59→23:37)
[2021-09-21] MEDS: MoRPHine SULFATE 4 MG/ML 1 ML CARP\\VIAL IV PRN (16:00)
[2021-09-21] MEDS: LACTATED RINGER'S 1,000 ML IV SCH ×2 (16:04→20:08)
[2021-09-21] MEDS ORDERED: MoRPHine SULFATE 2 MG/ML CARP IV STA (17:37)
--- NOTE | 2021-09-21 17:57 | Surgery Consultation ---
Date of Consultation September 21, 2021 Assessment & Plan (1) Hx laparoscopic cholecystectomy: I reviewed the operative report by Dr. 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 did an ultrasound evaluation I found a periampullary diverticulum which certainly may be accounting for what were seen on CAT scan but regardless there is I will review the CAT scan with the radiologist tomorrow At this point there is nothing surgical I recommend that the patient be seen by gastroenterology to evaluate the biliary stents patency although by laboratory the patient does not have any elevated liver function test History of Present Illness Attending Physician: Regino Blunt MD History of Present Illness 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 Davidson approximately 18 days later but at that time he was doing fine according to the office records there was no abdominal findings his only issue had some tachycardia with the patient and noted on his health watch and he recommended that he follow down the emergency room but the patient declined and apparently yesterday had sharp pain in his belly and came into the emergency room where evaluation revealed him to have pancreatitis which he had had on initial presentation the hospital month prior to that and a CT scan was obtained which revealed fat stranding around the pancreas but of note mentions possibility of a remnant gallbladder we were asked to see the patient Since the patient had the surgery he states that he was eating okay and his bowels were normal except for this pain that developed yesterday and brought in to be evaluated was around the and above the bellybutton but not going to the back and he characterizes the pain as sharp Allergies Allergy/AdvReac Type Severity Reaction Status Date / Time No Known Allergies Allergy Verified 08/20/21 02:37 Home Medications Medication Instructions Recorded Confirmed Type aspirin 81 mg tablet,delayed 81 mg PO QAM 10/06/18 09/21/21 History release sertraline 50 mg tablet (Zoloft) 50 mg PO QAM 10/06/18 09/21/21 History nitroglycerin 0.4 mg sublingual 0.4 mg SUBLINGUAL UD PRN 10/07/18 09/21/21 History tablet (Nitrostat) ticagrelor 90 mg tablet (Brilinta) 90 mg PO BID 30 Days #60 tab 08/11/20 09/21/21 Rx dicyclomine 10 mg capsule 10 mg PO BID PRN 12/06/20 09/21/21 History ezetimibe 10 mg tablet 10 mg PO QAM 12/06/20 09/21/21 History famotidine 40 mg tablet 40 mg PO HS 12/06/20 09/21/21 History isosorbide mononitrate 60 mg 60 mg PO DAILY 12/06/20 09/21/21 History tablet,extended release 24 hr magnesium oxide 400 mg PO QAM 12/06/20 09/21/21 History metoprolol succinate 25 mg 25 mg PO QAM 12/06/20 09/21/21 History tablet,extended release 24 hr rosuvastatin 40 mg tablet 40 mg PO QAM 12/06/20 09/21/21 History pantoprazole 40 mg tablet,delayed 40 mg PO QAM 08/20/21 09/21/21 History release Patient History Medical History Barretts esophagus CAD (coronary artery disease) 2017-RCA stent x 2 07/2020-STEMI, s/p PCI to left circumflex with 2 MELLY. Post procedure complicated by V. fib arrest requiring defibrillation. 12/2020-NSTEMI s/p 3 Xience MELLY to the distal aspect of prior stent of the left posterior lateral branch vessel Depression RADHA (generalized anxiety disorder) GERD (gastroesophageal reflux disease) Grade II diastolic dysfunction HLD (hyperlipidemia) Splenic infarct Tobacco abuse Surgical History History of vasectomy Hx laparoscopic cholecystectomy (08/22/21) Laparoscopic Cholecystectomy Dr. Davidson 08/22/2021 Family History Other Diabetes Stroke Social History Smoking Status: Current every day smoker Tobacco Type: Cigarettes Years Smoked: 31; Cigarettes Per Day: 2; Second Hand Exposure: No; Do You Dip or Chew Tobacco: No; Tobacco Cessation Education Requested by Patient: No Hx Alcohol Use: No Hx Substance Use: No Preferred Language: Togolese Communication Ability: Effective Fitness And Wellness Instructor Required: No Beliefs That Will Affect Care: None marital status: Single Current Living Situation: Alone current occupational status: employed Other Information That Helps Us Care for You: No Feels Safe at Home: Yes Safety Concerns: Feels Safe At This Time Assistive Devices: Glasses Physical Exam Physical Exam: Is alert coherent in no distress Sclerae nonicteric The abdomen the trocar sites have healed well do not find any specific masses tenderness and abdominal exam Results & Data ([facility]) Vital Signs (Past 12 Hours) Vital Signs Temp Pulse Pulse Pulse Resp BP BP 09/21/21 15:10 36.3 C L 111 H 16 127/89 09/21/21 14:00 56 L 18 135/90 09/21/21 12:00 53 L 18 142/90 H 09/21/21 10:00 70 18 150/98 H 09/21/21 08:30 67 18 129/98 09/21/21 07:53 09/21/21 06:33 36.7 C 105 H 16 123/82 Pulse Ox 09/21/21 15:10 98 09/21/21 14:00 96 09/21/21 12:00 96 09/21/21 10:00 96 09/21/21 08:30 96 09/21/21 07:53 96 09/21/21 06:33 98 Laboratory Results Noted Diagnostic Findings Noted PG Care Time/CCT Total # of Minutes Spent Total Time Spent with Patient: Total time spent is greater than 50% in coordination of care (as documented) at patient's floor/unit and/or counseling patient: Coding Level of Care Code 42725 Inpt Consult Level 3 Diagnoses Hx laparoscopic cholecystectomy Z90.49
[2021-09-21] MEDS: TICAGRELOR 90 MG TAB PO SCH (20:44)
[2021-09-21] MEDS: FAMOTIDINE 40 MG TABLET PO SCH (20:44)
--- NOTE | 2021-09-21 21:57 | Electrocardiogram Report ---
Test Reason : Blood Pressure : / mmHG Vent. Rate : 062 BPM Atrial Rate : 062 BPM P-R Int : 122 ms QRS Dur : 088 ms QT Int : 364 ms P-R-T Axes : 060 000 000 degrees QTc Int : 369 ms Normal sinus rhythm Inferior infarct , age undetermined Incomplete right bundle branch block Abnormal ECG When compared with ECG of 20-AUG-2021 02:38, No significant change was found Confirmed by Jaren Crow ([id number]) on 09/21/2021 9:57:20 PM Referred By: REFERRED SELF Confirmed By:Jaren Crow
[2021-09-22] MEDS: LACTATED RINGER'S 1,000 ML IV SCH ×5 (01:11→20:19)
[2021-09-22] MEDS: MoRPHine SULFATE 4 MG/ML 1 ML CARP\\VIAL IV PRN (01:16)
[2021-09-22 07:08] LABS: Mean Corpuscular Hemoglobin 32.7 pg (25-34); Mean Corpuscular Hgb Conc 33.3 g/dL (32-36); Mean Corpuscular Volume 98.2 fL (80-100); Mean Platelet Volume 9.1 fL (7.4-10.4); Platelet Count 404 K/uL (130-400); RDW Coefficient of Variation 13.5 % (11.5-14.5); RDW Standard Deviation 48.7 fL (36.4-46.3); Red Blood Count 3.97 M/uL (4.7-6.1); White Blood Count 11.87 K/uL (4.8-10.8)
[2021-09-22 07:26] LABS: Albumin Level 2.7 gm/dl (3.4-5.0); BUN Creatinine Ratio 11.8 (10-20); Calcium 9.2 mg/dl (8.5-10.1); Est GFR (African American) 113.4 ml/min; Est GFR (Non-African American) 97.9 ml/min; Potassium 4.5 mmol/L (3.5-5.1)
[2021-09-22 07:29] LABS: Albumin Globulin Ratio 0.7 (0.9-2); Bilirubin,Total 0.3 mg/dl (0.2-1); Globulin 3.7 gm/dl (2.5-4.0); Total Protein 6.4 gm/dl (6.4-8.2)
[2021-09-22] MEDS: EZETIMIBE 10 MG TABLET PO SCH (07:55)
[2021-09-22] MEDS: TICAGRELOR 90 MG TAB PO SCH (07:55)
[2021-09-22] MEDS ORDERED: traMADol HCL 50 MG TABLET PO STA (07:55)
[2021-09-22] MEDS: ASPIRIN 81 MG ECTAB PO SCH (07:56)
[2021-09-22] MEDS: MAGNESIUM OXIDE 400 MG TAB PO SCH (07:56)
[2021-09-22] MEDS: ISOSORBIDE MONO EXTENDED REL 60 MG TABCR PO SCH (07:56)
[2021-09-22] MEDS: METOPROLOL SUCC 25MG EXT REL TAB PO SCH (07:57)
[2021-09-22] MEDS: PANTOprazole 40 MG TAB PO SCH (07:57)
[2021-09-22] MEDS: SERTRALINE HCL 50 MG TABLET PO SCH (07:57)
[2021-09-22] MEDS: ROSUVASTATIN CALCIUM 20 MG TAB PO SCH (07:57)
--- NOTE | 2021-09-22 09:21 | Gastrointestinal Consultation ---
Date of Consultation September 22, 2021 Assessment & Plan (1) Hx laparoscopic cholecystectomy: 51 year old male admitted w/ abd pain, nausea, elevated lipase but normal LFTs. CT shows post cholecystectomy with likely a remnant gallbladder remaining in the gallbladder fossa, peripancreatic stranding and possible pancreatic edema with seen in pancreatitis. Hold AC NPO IV LR 200 mL/hr Antiemetics PRN Analgesia PRN ERCP wednesday Supervising Physician Co-Signing Physician Notes I saw and evaluated the patient. The patient was admitted with evidence of recurrent pancreatitis after having abdominal pain for at least 24 hours. The patient does have a history of choledocholithiasis and underwent ERCP about 6 weeks ago. The patient was to have a biliary stent removed in the near future. Of note the patient's liver enzymes are presently within normal limits. Physical examination No obvious distress, no scleral icterus Mild epigastric tenderness Impression: Patient with a history of acute pancreatitis, unclear if this is related to the prior biliary or pancreatic stent. We will make arrangements for a follow-up ERCP tomorrow. It is quite possible that the patient's recurrent pancreatitis is related to her tobacco use or perhaps an autoimmune component. Recommendations May have ice chips and sips of water Continue with IV hydration ERCP tomorrow N.p.o. at midnight MARSHA and IgG4 subset to be ordered History of Present Illness Reason for Consultation: panc Requesting Physician: Jose Raul Attending Physician: Regino Blunt MD History of Present Illness 51 year old male admitted w pain, nausea. Recent ERCP and CCY. Notes about last week he had abd pain which has persistent through admission. LFTs normal. Lipase 194. This AM pain is less severe. No black or bloody stools. ERCP 2020: �- The major papilla was located partially within a �� � � � � � � � � � � diverticulum. �� � � � � � � � � � � - Choledocholithiasis was found. Complete removal was �� � � � � � � � � � � accomplished by biliary sphincterotomy and balloon �� � � � � � � � � � � extraction. �� � � � � � � � � � � - One biliary stent was placed into the common bile �� � � � � � � � � � � duct. �� � � � � � � � � � � - One pancreatic stent was placed into the ventral �� � � � � � � � � � � pancreatic duct. �� � � � � � � � � � � - Indomethacin given to decrease risk of post-ERCP �� � � � � � � � � � � pancreatitis. EUS 2020: �There was dilation in the common bile duct which �� � � � � � � � � � � measured up to 7 mm. �� � � � � � � � � � � - One stone was visualized endosonographically in the �� � � � � � � � � � � common bile duct. �� � � � � � � � � � � - Many stones were visualized endosonographically in �� � � � � � � � � � � the gallbladder. �� � � � � � � � � � � - There was no evidence of significant pathology in �� � � � � � � � � � � the visualized portion of the liver. �� � � � � � � � � � � - Pancreatic parenchymal abnormalities consisting of �� � � � � � � � � � � lobularity were noted in the entire pancreas. �� � � � � � � � � � � - One benign lymph node was visualized in the annie �� � � � � � � � � � � hepatis region. Tissue has not been obtained. However, �� � � � � � � � � � � the endosonographic appearance is consistent with �� � � � � � � � � � � benign inflammatory changes. �� � � � � � � � � � � - Endosonographic images of the left adrenal gland �� � � � � � � � � � � were unremarkable. �� � � � � � � � � � � - No specimens collected. EGD 2020: Esophageal mucosal changes suspicious for Casanova's �� � � � � � � � � � � esophagus,classified as Casanova's stage C4-M5 per �� � � � � � � � � � � Reddell criteria. Biopsied. �� � � � � � � � � � � - Gastritis. Biopsied. �� � � � � � � � � � � - Duodenitis. �� � � � � � � � � � � - Normal second portion of the duodenum and third �� � � � � � � � � � � portion of the duodenum Allergies Allergy/AdvReac Type Severity Reaction Status Date / Time No Known Allergies Allergy Verified 08/20/21 02:37 Home Medications Medication Instructions Recorded Confirmed Type aspirin 81 mg tablet,delayed 81 mg PO QAM 10/06/18 09/21/21 History release sertraline 50 mg tablet (Zoloft) 50 mg PO QAM 10/06/18 09/21/21 History nitroglycerin 0.4 mg sublingual 0.4 mg SUBLINGUAL UD PRN 10/07/18 09/21/21 History tablet (Nitrostat) ticagrelor 90 mg tablet (Brilinta) 90 mg PO BID 30 Days #60 tab 08/11/20 09/21/21 Rx dicyclomine 10 mg capsule 10 mg PO BID PRN 12/06/20 09/21/21 History ezetimibe 10 mg tablet 10 mg PO QAM 12/06/20 09/21/21 History famotidine 40 mg tablet 40 mg PO HS 12/06/20 09/21/21 History isosorbide mononitrate 60 mg 60 mg PO DAILY 12/06/20 09/21/21 History tablet,extended release 24 hr magnesium oxide 400 mg PO QAM 12/06/20 09/21/21 History metoprolol succinate 25 mg 25 mg PO QAM 12/06/20 09/21/21 History tablet,extended release 24 hr rosuvastatin 40 mg tablet 40 mg PO QAM 12/06/20 09/21/21 History pantoprazole 40 mg tablet,delayed 40 mg PO QAM 08/20/21 09/21/21 History release Patient History Medical History Barretts esophagus CAD (coronary artery disease) 2017-RCA stent x 2 07/2020-STEMI, s/p PCI to left circumflex with 2 MELLY. Post procedure complicated by V. fib arrest requiring defibrillation. 12/2020-NSTEMI s/p 3 Xience MELLY to the distal aspect of prior stent of the left posterior lateral branch vessel Depression RADHA (generalized anxiety disorder) GERD (gastroesophageal reflux disease) Grade II diastolic dysfunction HLD (hyperlipidemia) Splenic infarct Tobacco abuse Surgical History History of vasectomy Hx laparoscopic cholecystectomy (08/22/21) Laparoscopic Cholecystectomy Dr. 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 Required: No Beliefs That Will Affect Care: None marital status: Single Current Living Situation: Alone current occupational status: employed Other Information That Helps Us Care for You: No Feels Safe at Home: Yes Safety Concerns: Feels Safe At This Time Assistive Devices: None Review of Systems Review of Systems: All systems reviewed & are unremarkable except as noted in HPI & below Physical Exam Constitutional: WD/WN, vitals as above Neck: trachea midline, no thyromegaly Respiratory: normal respiratory effort, lungs clear to auscultation Cardiovascular: RRR, no murmur, no edema Gastrointestinal (Abdomen): Inspection/Auscultation: normal bowel sounds Percussion/Palpation: + abdomen tender and abdomen soft; no guarding and abdomen not rigid Results & Data ([facility]) Vital Signs (Past 12 Hours) Vital Signs Temp Pulse Resp BP BP Pulse Ox 09/22/21 07:47 36.7 C 66 18 164/97 H 97 09/21/21 23:11 36.3 C L 111 H 16 153/87 H Laboratory Results 09/22/21 09/22/21 09/21/21 Range/Units 06:34 06:34 Unknown WBC 11.87 H (4.8-10.8) K/uL RBC 3.97 L (4.7-6.1) M/uL Hgb 13.0 L (14.0-18.0) g/dL Hct 39.0 L (42-52) % MCV 98.2 (80-100) fL MCH 32.7 (25-34) pg MCHC 33.3 (32-36) g/dL RDW Std Deviation 48.7 H (36.4-46.3) fL RDW Coeff of Mckinley 13.5 (11.5-14.5) % Plt Count 404 H (130-400) K/uL MPV 9.1 (7.4-10.4) fL Sodium 136 (136-145) mmol/L Potassium 4.5 (3.5-5.1) mmol/L Chloride 105 (98-107) mmol/L Carbon Dioxide 25 (21-32) mmol/L Anion Gap 6.0 (3-11) BUN 11 (7-18) mg/dl Creatinine 0.90 (0.6-1.4) mg/dl Est Cr Clr Drug Dosing 72.0 ml/min Est GFR ( Amer) 113.4 ml/min Est GFR (Non-Af Amer) 97.9 ml/min BUN/Creatinine Ratio 11.8 (10-20) Glucose 102 H (70-99) mg/dl Calcium 9.2 (8.5-10.1) mg/dl Total Bilirubin 0.3 (0.2-1) mg/dl AST 8 L (15-37) U/L ALT 13 (12-78) Alkaline Phosphatase 97 (45-117) U/L Total Protein 6.4 (6.4-8.2) gm/dl Albumin 2.7 L (3.4-5.0) gm/dl Globulin 3.7 (2.5-4.0) gm/dl Albumin/Globulin Ratio 0.7 L (0.9-2) Lipase 1942 H (73-393) U/L Urine Color Urine Appearance (Clear) Urine pH (4.5-7.5) Ur Specific [place] (1.000-1.030) Urine Protein (Negative) Urine Glucose (UA) (Negative) Urine Ketones (Negative) Urine Blood (Negative) Urine Nitrite (Negative) Urine Bilirubin (Negative) Urine Urobilinogen (Negative) Ur Leukocyte Esterase (Negative) SARS-CoV-2, RNA, NAAT NEGATIVE (NEGATIVE) 09/21/21 Range/Units 12:45 WBC (4.8-10.8) K/uL RBC (4.7-6.1) M/uL Hgb (14.0-18.0) g/dL Hct (42-52) % MCV (80-100) fL MCH (25-34) pg MCHC (32-36) g/dL RDW Std Deviation (36.4-46.3) fL RDW Coeff of Mckinley (11.5-14.5) % Plt Count (130-400) K/uL MPV (7.4-10.4) fL Sodium (136-145) mmol/L Potassium (3.5-5.1) mmol/L Chloride (98-107) mmol/L Carbon Dioxide (21-32) mmol/L Anion Gap (3-11) BUN (7-18) mg/dl Creatinine (0.6-1.4) mg/dl Est Cr Clr Drug Dosing ml/min Est GFR ( Amer) ml/min Est GFR (Non-Af Amer) ml/min BUN/Creatinine Ratio (10-20) Glucose (70-99) mg/dl Calcium (8.5-10.1) mg/dl Total Bilirubin (0.2-1) mg/dl AST (15-37) U/L ALT (12-78) Alkaline Phosphatase (45-117) U/L Total Protein (6.4-8.2) gm/dl Albumin (3.4-5.0) gm/dl Globulin (2.5-4.0) gm/dl Albumin/Globulin Ratio (0.9-2) Lipase (73-393) U/L Urine Color Yellow Urine Appearance Clear (Clear) Urine pH 6.0 (4.5-7.5) Ur Specific [place] > 1.045 H (1.000-1.030) Urine Protein Negative (Negative) Urine Glucose (UA) Negative (Negative) Urine Ketones Negative (Negative) Urine Blood Negative (Negative) Urine Nitrite Negative (Negative) Urine Bilirubin Negative (Negative) Urine Urobilinogen Negative (Negative) Ur Leukocyte Esterase Negative (Negative) SARS-CoV-2, RNA, NAAT (NEGATIVE)
[2021-09-22] MEDS: HYDROmorphone INJ 0.5 MG/0.5 ML SYR IV PRN (11:21)
--- NOTE | 2021-09-22 15:09 | Surgery Progress Note ---
Date of Service September 22, 2021 Assessment & Plan (1) Hx laparoscopic cholecystectomy: Plan: s/p lap rosas. Pathology report shows cholecystitis with 4mm long x 2mm diameter cystic duct. No partial or subtotal cholecystectomy was performed. CT findings more consistent with Surgicel in liver bed, extremely unlikely to have remnant gallbladder. no surgical intervention ercp per gi f/u as needed surgery will sign off. Admission and Anticipated Discharge Date Admission Date: September 21, 2021 Subjective 51 y/o male s/p lap rosas and ercp for gallstone pancreatitis over a month ago. Patient was on antiplatelet med and surgicel placed for hemostasis. Admitted with recurrent pancreatitis. CT report suggests remnant gallbladder. Feeling better with different pain meds Physical Exam Constitutional: WD/WN, vitals as above Gastrointestinal (Abdomen): normal bowel sounds, soft, nontender, no hepatosplenomegaly Inspection/Auscultation: + abdominal surgical incision (well healed) Results & Data ([facility]) Vital Signs (Past 12 Hours) Vital Signs Temp Pulse Resp BP Pulse Ox 09/22/21 07:47 36.7 C 66 18 164/97 H 97 Laboratory Results Laboratory Results - last 24 hr 09/22/21 09/22/21 06:34 06:34 WBC 11.87 H RBC 3.97 L Hgb 13.0 L Hct 39.0 L MCV 98.2 MCH 32.7 MCHC 33.3 RDW Std Deviation 48.7 H RDW Coeff of Mckinley 13.5 Plt Count 404 H MPV 9.1 Sodium 136 Potassium 4.5 Chloride 105 Carbon Dioxide 25 Anion Gap 6.0 BUN 11 Creatinine 0.90 Est Cr Clr Drug Dosing 72.0 Est GFR ( Amer) 113.4 Est GFR (Non-Af Amer) 97.9 BUN/Creatinine Ratio 11.8 Glucose 102 H Calcium 9.2 Total Bilirubin 0.3 AST 8 L ALT 13 Alkaline Phosphatase 97 Total Protein 6.4 Albumin 2.7 L Globulin 3.7 Albumin/Globulin Ratio 0.7 L Lipase 1942 H Diagnostic Findings Copies To �� Taras Davidson, Grecia Reyes PA-C, Joseph N., MD FINAL DIAGNOSIS Gallbladder (laparoscopic cholecystectomy): - Moderate chronic active cholecystitis and cholelithiasis are seen. - Focal reactive glandular atypia is noted. - Dysplasia and carcinoma are not seen. - A benign strip of hepatic parenchyma with two moderately inflamed portal triads is noted. � at 1549. Clinical History Gallstone pancreatitis, acute cholecystitis. Procedure performed: Laparoscopic cholecystectomy. Gross Description GALLBLADDER AND CONTENTS The specimen is received in a container labeled gallbladder and contents with the patient name. The specimen consists of a previously opened and collapsed gallbladder that measures 9.5 cm length and 3 x 1.5 cm at the fundus. The portion of cystic duct measures 0.4 cm in length and 0.2 cm in diameter. The serosal surface shows abundant fatty infiltration. What appears to be a small amount of liver tissue is attached at the periphery of the serosal surface, this measuring 2.3 x 0.5 x 0.5 cm. Abundant pale green, viscous bile present within the lumen and within the specimen container. Rounded, dark green calculi are noted and range up to 0.8 cm in greatest dimension. The mucosal surface of the gallbladder is pale green and appears edematous. The wall ranges from 0.3 to 0.7 cm in thickness. Youth Nutritional Monitor sections, including a section of the presumed liver tissue are submitted in a single cassette as A1. SH PG Care Time/CCT Total # of Minutes Spent Total Time Spent with Patient: Total time spent is greater than 50% in coordination of care (as documented) at patient's floor/unit and/or counseling patient: Coding Level of Care Code 74055 Inpt Consult Level 1 Diagnoses Hx laparoscopic cholecystectomy Z90.49
--- NOTE | 2021-09-22 16:54 | Hospitalist Progress Note ---
Date of Service September 22, 2021 Assessment & Plan (1) Acute pancreatitis: (2) Hx laparoscopic cholecystectomy: Plan: -Patient presenting from home with reports of mid abdominal pain and nausea. History of gallstone pancreatitis s/p biliary stent and laparoscopic cholecystectomy on 08/22/2021 -In the ED, lipase [address] ABD/pelvis suggestive of pancreatitis and a remnant gallbladder remaining in the gallbladder fossa -? Due to biliary stent -Lipase 1900 today, LFTs remain WNL. Patient afebrile, no leukocytosis. -General surgery consult regarding CT findings regarding remnant gallbladder - Per general surgery, CT findings more consistent with Surgicel in liver bed, extremely unlikely to have remnant gallbladder. -GI consulted, planning on ERCP tomorrow to evaluate biliary stent. However pancreatitis may be due to tobacco use or autoimmune pancreatitis, MARSHA and IgG4 subset to be ordered -N.p.o., LR at 200 cc/hour, pain and nausea control -Noted triglycerides checked last month were WNL (3) CAD (coronary artery disease): Plan: -Appears stable, no reports chest pain -Continue ASA, beta-shay, nitrate, statin, Zetia -Brilinta on hold for ERCP tomorrow (4) Barretts esophagus: Plan: -Continue PPI (5) DVT prophylaxis: Plan: -SCDs, ambulate Admission and Anticipated Discharge Date Admission Date: September 21, 2021 Supervising Physician Co-Signing Physician Notes Pt seen and examined by me, care coordinated w/ L. Sheryl MCCLENDON, pls refer to her note above for further detail. 51 y/o M w/ CAD, Casanova's esophagus, gallstone pancreatitis s/p biliary stent and cholecystectomy 08/22/2021, who presents w/abdominal pain and nausea, found to have elevated lipase. CT ABD/pelvis shows signs of pancreatitis. Patient is currently laying in bed, in no acute distress. He does report pain around his umbilicus. No vomiting. No fevers chills. He is alert oriented answering questions appropriately. Lungs are clear auscultation b/l w/o any wheezing, rhonchi or crackles. Heart sounds regular. Abdomen soft, mildly distended, tender around umbilicus to palpation, positive bowel sounds. GI service and surgical service contacted. Plan for ERCP tomorrow by GI. MARSHA IgG4 ordered to evaluate for autoimmune pancr eatitis. Continue IV fluids, pain management, antiemetics. A. Knab, MD Subjective Patient seen and examined. Follow-up for pancreatitis. Reports epigastric pain and nausea persists. No vomiting. No fevers or chills. Denies chest pain or shortness of breath. No lightheadedness or dizziness. Review of Systems Review of Systems: ROS per HPI, all other systems reviewed and negative Physical Exam Constitutional: WD/WN, vitals as above Respiratory: normal respiratory effort, lungs clear to auscultation Cardiovascular: Rate/Rhythm: regular rate and regular rhythm Vessels: normal peripheral pulses Extremities: no edema Gastrointestinal (Abdomen): Inspection/Auscultation: + abdomen distended and normal bowel sounds Percussion/Palpation: + abdomen tender (Epigastric) and abdomen soft Skin: no rashes, warm and dry Neurologic: no focal motor deficits Psychiatric: A+Ox3, euthymic affect Results & Data Results & Data ([facility]) Vital Signs (Past 12 Hours) Vital Signs Temp Pulse Resp BP Pulse Ox 09/22/21 15:11 36.6 C 75 18 99/63 L 95 09/22/21 07:47 36.7 C 66 18 164/97 H 97 Laboratory Results Short CBC 09/22/21 Range/Units 06:34 WBC 11.87 H (4.8-10.8) K/uL Hgb 13.0 L (14.0-18.0) g/dL Hct 39.0 L (42-52) % Plt Count 404 H (130-400) K/uL BMP 09/22/21 06:34 Sodium 136 Potassium 4.5 Chloride 105 Carbon Dioxide 25 BUN 11 Creatinine 0.90 Glucose 102 H Calcium 9.2 Liver Function 09/22/21 Range/Units 06:34 Total Bilirubin 0.3 (0.2-1) mg/dl AST 8 L (15-37) U/L ALT 13 (12-78) Alkaline Phosphatase 97 (45-117) U/L Albumin 2.7 L (3.4-5.0) gm/dl Medications Administered Current Inpatient Medications Acetaminophen (Acetaminophen 325 Mg Tab) 650 mg PO Q4H PRN PRN Reason: pain/fever Stop: 10/21/21 15:42 Aspirin (Aspirin 81 Mg Ectab) [address] [facility] Stop: 10/22/21 08:59 Last Admin: 09/22/21 07:56 Dose: 81 mg Documented by: Ezetimibe ([facility]im[facility] 10 Mg Tablet) [facility] Stop: 10/22/21 08:59 Last Admin: 09/22/21 07:55 Dose: 10 mg Documented by: Famotidine (Famotidine 40 Mg Tablet) 40 mg PO HS [facility] Stop: 10/21/21 20:59 Last Admin: 09/21/21 20:44 Dose: 40 mg Documented by: Hydromorphone HCl (Hydromorphone Inj 0.5 Mg/0.5 Ml Syr) 0.5 mg IV Q6H PRN PRN Reason: Pain Stop: 10/06/21 10:53 Last Admin: 09/22/21 11:21 Dose: 0.5 mg Documented by: Lactated Ringer's (Lr) 1,000 mls @ 200 mls/hr IV .Q5H [facility] Stop: 10/21/21 12:29 Last Admin: 09/22/21 16:35 Dose: 200 mls/hr Documented by: Isosorbide Mononitrate (Isosorbide [place] Extended Rel 60 Mg Tabcr) 60 mg PO DAILY [facility] Stop: 10/22/21 08:59 Last Admin: 09/22/21 07:56 Dose: 60 mg Documented by: Magnesium Oxide (Magnesium Oxide 400 Mg Tab) [address] [facility] Stop: 10/22/21 08:59 Last Admin: 09/22/21 07:56 Dose: 400 mg Documented by: Metoprolol Succinate (Metoprolol Succ 25mg Ext Rel Tab) [address] [facility] Stop: 10/22/21 08:59 Last Admin: 09/22/21 07:57 Dose: 25 mg Documented by: Ondansetron HCl (Ondansetron Inj 2 Mg/Ml 2 Ml Vial) 4 mg IV Q6H PRN PRN Reason: Nausea Stop: 10/21/21 15:42 Last Admin: 09/21/21 23:37 Dose: 4 mg Documented by: Pantoprazole Sodium (Pantoprazole 40 Mg Tab) [address] [facility] Stop: 10/22/21 08:59 Last Admin: 09/22/21 07:57 Dose: 40 mg Documented by: Rosuvastatin Calcium (Rosuvastatin Calcium 20 Mg Tab) [address] [facility] Stop: 10/22/21 08:59 Last Admin: 09/22/21 07:57 Dose: 40 mg Documented by: Sertraline HCl (Sertraline Hcl 50 Mg Tablet) 50 mg PO QAM [facility] Stop: 10/22/21 08:59 Last Admin: 09/22/21 07:57 Dose: 50 mg Documented by: Ticagrelor (Ticagrelor 90 Mg Tab) 90 mg PO BID [facility] Stop: 10/21/21 20:59 Last Admin: 09/22/21 07:55 Dose: 90 mg Documented by: (1) Acute pancreatitis Acute pancreatitis complication: unspecified Pancreatitis type: unspecified pancreatitis type Qualified Code(s): K85.90 - Acute pancreatitis without necrosis or infection, unspecified
[2021-09-22] MEDS: FAMOTIDINE 40 MG TABLET PO SCH (20:19)
[2021-09-23] MEDS: HYDROmorphone INJ 0.5 MG/0.5 ML SYR IV PRN ×2 (01:21→07:47)
[2021-09-23] MEDS: LACTATED RINGER'S 1,000 ML IV SCH ×5 (01:22→21:26)
--- NOTE | 2021-09-23 07:45 | Anesthesiology Consultation ---
Date of Service September 23, 2021 Assessment & Plan Chart Review Chart Review: Acceptable Risk for Surgery and Patient NOT seen in Pre Admission Testing History Surgery Operation Date: 09/22/21 13:20 Proposed Procedures p Endoscopic Retrograde Cholangiopancreatogram - Kike Gross DO Operation Date: 09/23/21 07:00 Proposed Procedures p Endoscopic Retrograde Cholangiopancreatogram - Kike Gross, Operation Date: 09/23/21 07:00 Proposed Procedures p Endoscopic Retrograde Cholangiopancreatogram - Kike Gross, Operation Date: 09/24/21 07:00 Proposed Procedures p Endoscopic Retrograde Cholangiopancreatogram - Kike Gross, DO Height/Weight Height: 5 ft 5 in Weight: 53 kg Allergies Allergy/AdvReac Type Severity Reaction Status Date / Time No Known Allergies Allergy Verified 08/20/21 02:37 Medications Home Medications Medication Instructions Recorded Confirmed Last Taken aspirin 81 mg tablet,delayed 81 mg PO QAM 10/06/18 09/21/21 12/31/20 release sertraline 50 mg tablet (Zoloft) 50 mg PO QAM 10/06/18 09/21/21 12/31/20 nitroglycerin 0.4 mg sublingual 0.4 mg SUBLINGUAL UD PRN 10/07/18 09/21/21 12/06/20 00:00 tablet (Nitrostat) ticagrelor 90 mg tablet (Brilinta) 90 mg PO BID 30 Days #60 tab 08/11/20 09/21/21 12/31/20 dicyclomine 10 mg capsule 10 mg PO BID PRN 12/06/20 09/21/21 12/31/20 ezetimibe 10 mg tablet 10 mg PO QAM 12/06/20 09/21/21 12/31/20 famotidine 40 mg tablet 40 mg PO HS 12/06/20 09/21/21 12/31/20 isosorbide mononitrate 60 mg 60 mg PO DAILY 12/06/20 09/21/21 12/31/20 tablet,extended release 24 hr magnesium oxide 400 mg PO QAM 12/06/20 09/21/21 12/31/20 metoprolol succinate 25 mg 25 mg PO QAM 12/06/20 09/21/21 12/31/20 tablet,extended release 24 hr rosuvastatin 40 mg tablet 40 mg PO QAM 12/06/20 09/21/21 12/31/20 pantoprazole 40 mg tablet,delayed 40 mg PO QAM 08/20/21 09/21/21 Unknown release Active Medications Generic Name Dose Route Start Last Admin Trade Name Freq PRN Reason Stop Dose Admin Aspirin 81 mg 09/22/21 09:00 09/22/21 07:56 Aspirin 81 Mg Ectab PO 10/22/21 08:59 81 mg QAM ALYCIA Administration Ezetimibe 10 mg 09/22/21 09:00 09/22/21 07:55 Ezetimibe 10 Mg Tablet PO 10/22/21 08:59 10 mg QAM ALYCIA Administration Famotidine 40 mg 09/21/21 21:00 09/22/21 20:19 Famotidine 40 Mg Tablet PO 10/21/21 20:59 40 mg HS ALYCIA Administration Hydromorphone HCl 0.5 mg 09/22/21 10:54 09/23/21 07:47 Hydromorphone Inj 0.5 Mg/0.5 Ml Syr IV 10/06/21 10:53 0.5 mg Q6H PRN Administration Pain Lactated Ringer's 1,000 mls @ 200 mls/hr 09/21/21 12:30 09/23/21 06:08 Lr IV 10/21/21 12:29 200 mls/hr .Q5H ALYCIA Administration Isosorbide Mononitrate 60 mg 09/22/21 09:00 09/22/21 07:56 Isosorbide [place] Extended Rel 60 Mg Tabcr PO 10/22/21 08:59 60 mg DAILY ALYCIA Administration Magnesium Oxide 400 mg 09/22/21 09:00 09/22/21 07:56 Magnesium Oxide 400 Mg Tab PO 10/22/21 08:59 400 mg QAM ALYCIA Administration Metoprolol Succinate 25 mg 09/22/21 09:00 09/22/21 07:57 Metoprolol Succ 25mg Ext Rel Tab PO 10/22/21 08:59 25 mg QAM ALYCIA Administration Ondansetron HCl 4 mg 09/21/21 15:43 09/23/21 07:47 Ondansetron Inj 2 Mg/Ml 2 Ml Vial IV 10/21/21 15:42 4 mg Q6H PRN Administration Nausea Pantoprazole Sodium 40 mg 09/22/21 09:00 09/22/21 07:57 Pantoprazole 40 Mg Tab PO 10/22/21 08:59 40 mg QAM ALYCIA Administration Rosuvastatin Calcium 40 mg 09/22/21 09:00 09/22/21 07:57 Rosuvastatin Calcium 20 Mg Tab PO 10/22/21 08:59 40 mg QAM ALYCIA Administration Sertraline HCl 50 mg 09/22/21 09:00 09/22/21 07:57 Sertraline Hcl 50 Mg Tablet PO 10/22/21 08:59 50 mg QAM ALYCIA Administration Ticagrelor 90 mg 09/21/21 21:00 09/22/21 07:55 Ticagrelor 90 Mg Tab PO 10/21/21 20:59 90 mg BID ALYCIA Administration Past Medical History Medical History Barretts esophagus CAD (coronary artery disease) 2017-RCA stent x 2 07/2020-STEMI, s/p PCI to left circumflex with 2 MELLY. Post procedure complicated by V. fib arrest requiring defibrillation. 12/2020-NSTEMI s/p 3 Xience MELLY to the distal aspect of prior stent of the left posterior lateral branch vessel Depression RADHA (generalized anxiety disorder) GERD (gastroesophageal reflux disease) Grade II diastolic dysfunction HLD (hyperlipidemia) Splenic infarct Tobacco abuse Past Family History Family History Other Diabetes Stroke Past Surgical History Surgical History History of vasectomy Hx laparoscopic cholecystectomy (08/22/21) Laparoscopic Cholecystectomy Dr. Davidson 08/22/2021 Social History Smoking Status: Current every day smoker tobacco type: cigarettes Smoking cigarettes per day: 2 Do You Dip or Chew Tobacco: No Hx Alcohol Use: No Hx Substance Use: No substance use type: does not use Physical Exam Vital Signs Last Vital Signs Temp 37.1 C 09/23/21 06:50 Pulse 78 09/23/21 06:50 Resp 18 09/23/21 06:50 BP 116/66 09/23/21 06:50 Pulse Ox 97 09/23/21 06:50 Testing Laboratory Results 09/22/21 06:34 09/22/21 06:34 Urine Color Yellow 09/21/21 12:45 Urine Appearance Clear (Clear) 09/21/21 12:45 Urine pH 6.0 (4.5-7.5) 09/21/21 12:45 Ur Specific Disney > 1.045 (1.000-1.030) H 09/21/21 12:45 Urine Protein Negative (Negative) 09/21/21 12:45 Urine Glucose (UA) Negative (Negative) 09/21/21 12:45 Urine Ketones Negative (Negative) 09/21/21 12:45 Urine Nitrite Negative (Negative) 09/21/21 12:45 Ur Leukocyte Esterase Negative (Negative) 09/21/21 12:45 Echocardiogram Date: 01/02/21 EF: 55-60 LV Function: normal RWMA: + hypokinetic Other Findings: + LVH
[2021-09-23] MEDS: ONDANSETRON INJ 2 MG/ML 2 ML VIAL IV PRN (07:47)
[2021-09-23] MEDS: SERTRALINE HCL 50 MG TABLET PO SCH (07:51)
[2021-09-23] MEDS: PANTOprazole 40 MG TAB PO SCH (07:51)
[2021-09-23] MEDS: EZETIMIBE 10 MG TABLET PO SCH (07:58)
[2021-09-23] MEDS: MAGNESIUM OXIDE 400 MG TAB PO SCH (07:58)
[2021-09-23] MEDS: ASPIRIN 81 MG ECTAB PO SCH (07:58)
[2021-09-23] MEDS: ROSUVASTATIN CALCIUM 20 MG TAB PO SCH (07:58)
[2021-09-23] MEDS: ISOSORBIDE MONO EXTENDED REL 60 MG TABCR PO SCH (07:58)
[2021-09-23] MEDS: METOPROLOL SUCC 25MG EXT REL TAB PO SCH (07:58)
[2021-09-23 08:39] LABS: Albumin Level 2.2 gm/dl (3.4-5.0); BUN Creatinine Ratio 9.8 (10-20); Calcium 8.2 mg/dl (8.5-10.1); Est GFR (African American) 118.4 ml/min; Est GFR (Non-African American) 102.2 ml/min; Hematocrit (blood only) 29.3 % (42-52); Hemoglobin 9.9 g/dL (14.0-18.0); Magnesium 1.6 mg/dl (1.8-2.4); Mean Corpuscular Hemoglobin 32.5 pg (25-34); Mean Corpuscular Hgb Conc 33.8 g/dL (32-36); Mean Corpuscular Volume 96.1 fL (80-100); Platelet Count 303 K/uL (130-400); RDW Coefficient of Variation 13.6 % (11.5-14.5); RDW Standard Deviation 47.7 fL (36.4-46.3); Red Blood Count 3.05 M/uL (4.7-6.1); White Blood Count 7.14 K/uL (4.8-10.8)
[2021-09-23 08:49] LABS: Albumin Globulin Ratio 0.7 (0.9-2); Bilirubin,Total 0.5 mg/dl (0.2-1); Phosphorus 1.7 mg/dl (2.5-4.9); Potassium 3.7 mmol/L (3.5-5.1); Total Protein 5.2 gm/dl (6.4-8.2)
--- NOTE | 2021-09-23 09:37 | Communication Note ---
Date of Service: September 23, 2021 The patient underwent ERCP and upper endoscopy this morning. The upper endoscopy was notable for diffuse gastritis which could be related to bile reflux or perhaps medication. Biopsies were obtained. The patient's biliary and pancreatic stents were removed. The pancreatic stent was partially occluded and could account for the patient's presentation. The biliary tree was cannulated and swept with the balloon. One small stone was removed from the duct, no stones remained. Recommendations patient may have clear liquids today Continue with IV hydration overnight Carafate twice daily for gastritis for 3 months
[2021-09-23] MEDS ORDERED: PROPOFOL IV EMULSION 10 MG/ML 20 ML VIAL IV ONE (10:55)
[2021-09-23] MEDS ORDERED: ONDANSETRON INJ 2 MG/ML 2 ML VIAL ONE (10:55)
[2021-09-23] MEDS ORDERED: MIDAZOLAM HCL 1 MG/ML 2ML VIAL ONE (10:55)
[2021-09-23] MEDS ORDERED: LIDOCAINE 2% 2 ML VIAL/AMP(20MG/ML) INFIL ONE (10:55)
[2021-09-23] MEDS ORDERED: fentaNYL citrate 100 MCG/2 ML VIAL ONE (10:55)
--- NOTE | 2021-09-23 11:16 | History & Physical Bridge Note ---
Date of Service September 23, 2021 History & Physical Bridge Note I have examined the patient, reviewed the History & Physical and in the interval since the performance of the History & Physical I have noted the following changes of clinical significance: no changes noted. The patient notes that he has persistent abdominal pain but there is an improvement of his lipase overnight. We are planning to remove his biliary stent today for suspected biliary cause of his recurrent pancreatitis.. We have discussed the risks to include bleeding, infection, perforation, pain, pancreatitis and need for follow-up studies.
[2021-09-23] MEDS ORDERED: INDOMETHACIN 50 MG SUPP PR ONE (11:17)
[2021-09-23] MEDS ORDERED: ONDANSETRON INJ 2 MG/ML 2 ML VIAL IV PRN (11:21)
[2021-09-23] MEDS ORDERED: ATROPINE SULFATE 0.1 MG/ML 10ML SYR IV PRN (11:21)
[2021-09-23] MEDS ORDERED: ePHEDrine sulfate 50 MG/ML AMP IV PRN (11:21)
[2021-09-23] MEDS ORDERED: fentaNYL citrate 100 MCG/2 ML VIAL IV PRN (11:21)
[2021-09-23] MEDS ORDERED: ePHEDrine sulfate 50 MG/ML AMP ONE (11:59)
--- NOTE | 2021-09-23 12:01 | GI REPORT ---
Patient Name: Oc Cazares Procedure Date: 09/23/2021 11:48 AM Date of : 1970 Admit Type: Inpatient Age: 51 Gender: Male Attending MD: Kike Gross DO Procedure: Upper GI endoscopy Providers: Kike Gross DO Referring MD: Referred Self, Regino Blnut Md Indications: Epigastric abdominal pain, Biliary stent removal, Pancreatic stent removal Medicines: General Anesthesia Complications: No immediate complications. Estimated blood loss: Minimal. Estimated Blood Loss: Estimated blood loss was minimal. Procedure: Pre-Anesthesia Assessment: - Prior to the procedure, a History and Physical was performed, and patient medications, allergies and sensitivities were reviewed. The patient's tolerance of previous anesthesia was reviewed. - The risks and benefits of the procedure and the sedation options and risks were discussed with the patient. All questions were answered and informed consent was obtained. - Patient identification and proposed procedure were verified prior to the procedure by the physician, the nurse and the courtesy clerk. The procedure was verified in the procedure room. - Pre-procedure physical examination revealed no contraindications to sedation. - ASA Grade Assessment: III - A patient with severe systemic disease. - After reviewing the risks and benefits, the patient was deemed in satisfactory condition to undergo the procedure. - The anesthesia plan was to use general anesthesia. - Immediately prior to administration of medications, the patient was re-assessed for adequacy to receive sedatives. - The heart rate, respiratory rate, oxygen saturations, blood pressure, adequacy of pulmonary ventilation, and response to care were monitored throughout the procedure. - The physical status of the patient was re-assessed after the procedure. After obtaining informed consent, the endoscope was passed under direct vision. Throughout the procedure, the patient's blood pressure, pulse, and oxygen saturations were monitored continuously. The Endoscope was introduced through the mouth, and advanced to the third part of duodenum. The upper GI endoscopy was accomplished without difficulty. The patient tolerated the procedure well. Findings: The examined esophagus was normal. Diffuse moderate inflammation characterized by congestion (edema), erythema and granularity was found in the entire examined stomach. Biopsies were taken with a cold forceps for histology. The pathology specimen was placed into Bottle A. Estimated blood loss was minimal. The duodenal bulb, second portion of the duodenum and third portion of the duodenum were normal. Two previously placed plastic biliary pancreatic stents were seen in the area of the papilla. Stent removal was accomplished with a Raptor grasping device. Impression: - Normal esophagus. - Gastritis. Biopsied. - Normal duodenal bulb, second portion of the duodenum and third portion of the duodenum. - Plastic biliary pancreatic stents in the duodenum. Removed. Recommendation: - Perform an ERCP today. - Await pathology results. - Use sucralfate tablets 1 gram PO BID for 3 months. Kike Gross D.O. Kike Gross, 09/23/2021 12:01:07 PM This report has been signed electronically. Note Initiated On: 09/23/2021 11:48 AM Number of Addenda: 0 I attest to the content of the Intraoperative Record and orders documented therein, exceptions below {[id number]}
--- NOTE | 2021-09-23 12:33 | GI REPORT ---
Patient Name: Oc Cazares Procedure Date: 09/23/2021 10:55 AM Date of : 1970 Admit Type: Inpatient Age: 51 Gender: Male Attending MD: Kike Gross DO Procedure: ERCP Providers: Kike Gross DO Referring MD: Regino Blunt Md Indications: Follow-up of acute recurrent pancreatitis, Biliary stent removal, Pancreatic stent removal Medicines: General Anesthesia Complications: No immediate complications. Estimated blood loss: Minimal. Estimated Blood Loss: Estimated blood loss was minimal. Procedure: Pre-Anesthesia Assessment: - Prior to the procedure, a History and Physical was performed, and patient medications, allergies and sensitivities were reviewed. The patient's tolerance of previous anesthesia was reviewed. - The risks and benefits of the procedure and the sedation options and risks were discussed with the patient. All questions were answered and informed consent was obtained. - Patient identification and proposed procedure were verified prior to the procedure by the physician, the nurse and the pad extractor tender. The procedure was verified in the procedure room. - Pre-procedure physical examination revealed no contraindications to sedation. - ASA Grade Assessment: III - A patient with severe systemic disease. - After reviewing the risks and benefits, the patient was deemed in satisfactory condition to undergo the procedure. - The anesthesia plan was to use general anesthesia. - Immediately prior to administration of medications, the patient was re-assessed for adequacy to receive sedatives. - The heart rate, respiratory rate, oxygen saturations, blood pressure, adequacy of pulmonary ventilation, and response to care were monitored throughout the procedure. - The physical status of the patient was re-assessed after the procedure. After obtaining informed consent, the scope was passed under direct vision. Throughout the procedure, the patient's blood pressure, pulse, and oxygen saturations were monitored continuously. The Duodenoscope was introduced through the mouth, and advanced to the duodenum and used to inject contrast into the bile duct. The ERCP was accomplished without difficulty. The patient tolerated the procedure well. Findings: A human resources support specialist film of the abdomen was obtained. Surgical clips, consistent with a previous cholecystectomy, were seen in the area of the right upper quadrant of the abdomen. The major papilla was located entirely within a diverticulum. A biliary sphincterotomy had been performed. The sphincterotomy appeared open. The patient's biliary stent and pancreatic stent had been removed during the previous upper endoscopy. The pancreatic stent was partially occluded and could account for the patient's presentation with pancreatitis. The bile duct was deeply cannulated with the short-nosed traction sphincterotome and guidewire (PD not injected / cannulated today). Contrast was injected. I personally interpreted the bile duct images. Contrast extended to the hepatic ducts. A cholecystectomy had been performed. The middle third of the main bile duct contained filling defect(s) thought to be a stone and sludge. To discover objects, the biliary tree was swept with an 11.5 mm balloon starting at the bifurcation. Sludge was swept from the duct. One stone was removed. No stones remained. Indomethacin 100 mg was given via suppository to decrease the risk of post-ERCP pancreatitis (PEP). The endoscope was withdrawn from the patient. The total fluoroscopy exposure time was 44 seconds. Impression: - The major papilla was located entirely within a diverticulum. - Prior biliary sphincterotomy appeared open. - A filling defect consistent with a stone and sludge was seen on the cholangiogram. - The patient has had a cholecystectomy. - Choledocholithiasis was found. Complete removal was accomplished by balloon extraction. - The biliary tree was swept. - Indomethacin given to decrease risk of post-ERCP pancreatitis. Recommendation: - Observe patient's clinical course following today's ERCP with therapeutic intervention. - Clear liquid diet today. - Continue with IV hydration Kike Gross D.O. Kike Gross, 09/23/2021 12:32:28 PM This report has been signed electronically. Note Initiated On: 09/23/2021 10:55 AM Number of Addenda: 0 I attest to the content of the Intraoperative Record and orders documented therein, exceptions below {[id number]}
--- NOTE | 2021-09-23 12:34 | Post Operative Brief Note ---
Immediate Post Op Note v1 Date of Surgery September 23, 2021 Pre & Post Diagnosis Operation Date: 09/23/21 07:00 Abdominal pain / pancreatitis I identified the patient and participated in the time-out.: Yes Procedure Operation Date: 09/23/21 07:00 Upper endosocpy and ERCP Surgeon Kike Gross DO [employer] none Estimated Blood Loss 0 Findings Consistent with Post-Op Diagnosis
--- NOTE | 2021-09-23 13:01 | Fluoroscopy Report ---
[place] ERCP biliary ductal CLINICAL HISTORY: ERCP with stent removal. COMPARISON STUDY: Abdomen and pelvis CT 09/21/2021. FLUOROSCOPY TIME: 44 seconds. FINDINGS: 6 fluoroscopic spot images of the right upper quadrant demonstrate contrast injected into t he common bile duct followed by a balloon sweep. Evidence for prior cholecystectomy. IMPRESSION: Fluoroscopic assistance provided for ERCP. ACT 112: Negative or not required by law. Electronically signed by: David Noel M.D. 09/23/2021 1:00 PM
--- NOTE | 2021-09-23 13:02 | Anesthesiology Progress Note ---
Date of Service September 23, 2021 Anesthesia Post Procedure Vital Signs Vital Signs: Temp Pulse Resp BP Pulse Ox 09/23/21 12:45 98 H 18 97/64 L 94 09/23/21 12:35 101 H 18 94/65 L 96 09/23/21 12:29 36.4 C L 97 H 20 95/54 L 96 09/23/21 11:10 36.9 C 75 20 111/74 96 09/23/21 06:50 37.1 C 78 18 116/66 97 09/22/21 23:25 36.9 C 74 16 107/57 L 96 09/22/21 15:11 36.6 C 75 18 99/63 L 95 Pain Intensity Abdomen: Pain Intensity: 5 Transfer of Care Handoff Completed per policy Notes Mental Status: alert / awake / arousable Patient Amnestic to Procedure: Yes Nausea / Vomiting: adequately controlled Pain: adequately controlled Airway Patency, RR, SpO2: stable & adequate BP & HR: stable & adequate Hydration State: stable & adequate Anesthetic Complications: no major complications apparent
[2021-09-23] MEDS ORDERED: GLUCAGON FOR INJ 1 MG VIAL ONE (13:13)
[2021-09-23] MEDS ORDERED: POTASSIUM PHOS 3 MMOL/1 ML INFUSION IV ONE (15:59)
[2021-09-23] MEDS ORDERED: POTASSIUM PHOSPHATE 9 MMOL in SODIUM CHLORIDE 0.9% 250 ML IV ONE (16:30)
[2021-09-23] MEDS: MAGNESIUM SULFATE / D5W 1 GM/100 ML BAG IV SCH ×2 (17:01→18:11)
--- NOTE | 2021-09-23 17:06 | Hospitalist Progress Note ---
Date of Service September 23, 2021 Assessment & Plan (1) Acute pancreatitis: (2) Hx laparoscopic cholecystectomy: Plan: -Patient presenting from home with reports of mid abdominal pain and nausea. History of gallstone pancreatitis s/p biliary stent and laparoscopic cholecystectomy on 08/22/2021 -In the ED, lipase [address] ABD/pelvis suggestive of pancreatitis and a remnant gallbladder remaining in the gallbladder fossa -Lipase 800 --> 1900 --> 382 today. LFTs remain WNL. Patient afebrile, no leukocytosis -General surgery consult regarding CT findings regarding remnant gallbladder - Per general surgery, CT findings more consistent with Surgicel in liver bed, extremely unlikely to have remnant gallbladder. -S/p EGD and ERCP today. -EGD showed gastritis which was biopsied. Plastic biliary pancreatic stents in the duodenum which were removed. GI recommending sucralfate tablets 1 g p.o. twice daily for 3 months -ERCP showed choledocholithiasis, complete removal was accomplished by balloon extraction. Biliary tree was swept. -Start clear liquids -Continue IVF, pain and nausea control -Noted triglycerides checked last month were WNL (3) CAD (coronary artery disease): Plan: -Appears stable, no reports chest pain -Continue ASA, beta-shay, nitrate, statin, Zetia -Brilinta on hold for procedure, likely can resume tomorrow, will discuss with GI (4) Hypophosphatemia: (5) Hypomagnesemia: Plan: -Replace, follow electrolytes (6) Barretts esophagus: Plan: -Continue PPI (7) DVT prophylaxis: Plan: -SCDs, ambulate Admission and Anticipated Discharge Date Admission Date: September 22, 2021 Supervising Physician Co-Signing Physician Notes Pt seen and examined by me, care coordinated w/ L. Sheryl MCCLENDON, pls refer to her note above for further detail. 51 y/o M w/ CAD, Casanova's esophagus, gallstone pancreatitis s/p biliary stent and cholecystectomy 08/22/2021, who presents w/abdominal pain and nausea, found to have elevated lipase. CT ABD/pelvis shows signs of pancreatitis. Now s/p ERCP earlier today, choledocholithiasis identified and complete removal accomplished. Patient is currently laying in bed, in no acute distress. Denies having any pain. No fevers chills. He is alert oriented answering questions appropriately. Lungs are clear auscultation b/l w/o any wheezing, rhonchi or crackles. Heart sounds regular. Abdomen soft, positive bowel sounds, minimal tenderness to palp.. Will start clear liquid diet. MARSHA IgG4 ordered yesterday to evaluate for autoimmune pancreatitis, results pending (even though likely secondary to stone as above). Amelia Blunt MD Subjective Patient seen and examined. Follow-up for pancreatitis. Seen after EGD/ERCP. Abdominal pain and nausea improved. Eager to have some clear liquids. Denies chest pain and shortness of breath. Review of Systems Review of Systems: ROS per HPI, all other systems reviewed and negative Physical Exam Constitutional: WD/WN, vitals as above no acute distress Respiratory: normal respiratory effort, lungs clear to auscultation Cardiovascular: Rate/Rhythm: regular rate and regular rhythm Vessels: normal peripheral pulses Extremities: no edema Gastrointestinal (Abdomen): Percussion/Palpation: + abdomen tender (Mild, epigastric) and abdomen soft Skin: no rashes, warm and dry Neurologic: no focal motor deficits Psychiatric: A+Ox3, euthymic affect Results & Data Results & Data ([facility]) Vital Signs (Past 12 Hours) Vital Signs Temp Pulse Resp BP BP Pulse Ox 09/23/21 15:59 36.5 C 80 18 103/58 L 96 09/23/21 15:09 90 18 111/70 95 09/23/21 14:12 36.4 C L 69 18 111/61 96 09/23/21 13:32 69 16 105/63 95 09/23/21 13:11 36.9 C 70 18 96/66 L 94 09/23/21 12:45 98 H 18 97/64 L 94 09/23/21 12:35 101 H 18 94/65 L 96 09/23/21 12:29 36.4 C L 97 H 20 95/54 L 96 09/23/21 11:10 36.9 C 75 20 111/74 96 09/23/21 06:50 37.1 C 78 18 116/66 97 Laboratory Results Short CBC 09/23/21 Range/Units 07:32 WBC 7.14 (4.8-10.8) K/uL Hgb 9.9 L D (14.0-18.0) g/dL Hct 29.3 L (42-52) % Plt Count 303 (130-400) K/uL BMP 09/23/21 07:32 Sodium 136 Potassium 3.7 D Chloride 106 Carbon Dioxide 25 BUN 8 Creatinine 0.81 Glucose 74 Calcium 8.2 L Liver Function 09/23/21 Range/Units 07:32 Total Bilirubin 0.5 (0.2-1) mg/dl AST 8 L (15-37) U/L ALT 9 L (12-78) Alkaline Phosphatase 76 (45-117) U/L Albumin 2.2 L (3.4-5.0) gm/dl (1) Acute pancreatitis Acute pancreatitis complication: unspecified Pancreatitis type: unspecified pancreatitis type Qualified Code(s): K85.90 - Acute pancreatitis without necrosis or infection, unspecified
[2021-09-23] MEDS: FAMOTIDINE 40 MG TABLET PO SCH (21:18)
[2021-09-23] MEDS: SUCRALFATE 1 GM TAB PO SCH (21:18)
[2021-09-24] MEDS: LACTATED RINGER'S 1,000 ML IV SCH ×2 (02:14→07:28)
[2021-09-24] MEDS: HYDROmorphone INJ 0.5 MG/0.5 ML SYR IV PRN (03:33)
[2021-09-24 07:57] LABS: Hematocrit (blood only) 27.4 % (42-52); Hemoglobin 9.3 g/dL (14.0-18.0); Mean Corpuscular Hgb Conc 33.9 g/dL (32-36); Mean Corpuscular Volume 94.2 fL (80-100); Mean Platelet Volume 8.9 fL (7.4-10.4); Platelet Count 288 K/uL (130-400); RDW Coefficient of Variation 13.2 % (11.5-14.5); RDW Standard Deviation 45.6 fL (36.4-46.3); Red Blood Count 2.91 M/uL (4.7-6.1)
[2021-09-24] MEDS: EZETIMIBE 10 MG TABLET PO SCH (08:26)
[2021-09-24] MEDS: ROSUVASTATIN CALCIUM 20 MG TAB PO SCH (08:26)
[2021-09-24] MEDS: PANTOprazole 40 MG TAB PO SCH (08:26)
[2021-09-24] MEDS: MAGNESIUM OXIDE 400 MG TAB PO SCH (08:26)
[2021-09-24] MEDS: METOPROLOL SUCC 25MG EXT REL TAB PO SCH (08:27)
[2021-09-24] MEDS: TICAGRELOR 90 MG TAB PO SCH (08:27)
[2021-09-24] MEDS: SERTRALINE HCL 50 MG TABLET PO SCH (08:27)
[2021-09-24] MEDS: ISOSORBIDE MONO EXTENDED REL 60 MG TABCR PO SCH (08:27)
[2021-09-24] MEDS: ASPIRIN 81 MG ECTAB PO SCH (08:28)
[2021-09-24] MEDS: SUCRALFATE 1 GM TAB PO SCH (08:28)
[2021-09-24 08:34] LABS: Albumin Level 2.1 gm/dl (3.4-5.0); BUN Creatinine Ratio 6.9 (10-20); Est GFR (African American) 117.3 ml/min; Est GFR (Non-African American) 101.2 ml/min; Potassium 3.7 mmol/L (3.5-5.1)
--- NOTE | 2021-09-24 08:45 | Communication Note ---
Date of Service: September 24, 2021 Pt was seen and evaluated. S/P ERCP for stent removal. Clinically feeling well without any concerns. Tolerating advancing diet, feels ready to go home. Denies any abd pain, nausea, vomiting, black/bloody stools or emesis. EGD 2020: �Normal esophagus. �� � � � � � � � � � � - Gastritis. Biopsied. �� � � � � � � � � � � - Normal duodenal bulb, second portion of the duodenum �� � � � � � � � � � � and third portion of the duodenum. �� � � � � � � � � � � - Plastic biliary pancreatic stents in the duodenum. �� � � � � � � � � � � Removed. ERCP 2020: - The major papilla was located entirely within a �� � � � � � � � � � � diverticulum. �� � � � � � � � � � � - Prior biliary sphincterotomy appeared open. �� � � � � � � � � � � - A filling defect consistent with a stone and sludge �� � � � � � � � � � � was seen on the cholangiogram. �� � � � � � � � � � � - The patient has had a cholecystectomy. �� � � � � � � � � � � - Choledocholithiasis was found. Complete removal was �� � � � � � � � � � � accomplished by balloon extraction. �� � � � � � � � � � � - The biliary tree was swept. �� � � � � � � � � � � - Indomethacin given to decrease risk of post-ERCP �� � � � � � � � � � � pancreatitis. No GI contraindication to discharge. Diet as tolerated. Carafate tablet 1 gram BID for 3 months. OP GI follow up in office. Thank you for allowing us to participate in the care of this patient. Please call with any acute changes, questions or concerns. Please see addendum below with additional recommendation from my supervising physician. I saw the patient this morning. He notes he does not have any abdominal discomfort and feels much improved as compared to admission. Would recommend advancing the patient's diet as tolerated. Given the low blood count he should be on an iron supplement for 8 to 12 weeks.
[2021-09-24 08:46] LABS: Albumin Globulin Ratio 0.7 (0.9-2); Bilirubin,Total 0.4 mg/dl (0.2-1); Globulin 2.9 gm/dl (2.5-4.0); Phosphorus 2.3 mg/dl (2.5-4.9); Total Protein 5.1 gm/dl (6.4-8.2)
--- NOTE | 2021-09-24 17:10 | Discharge Summary ---
Date of Service September 24, 2021 Admission HPI Per Admitting Provider 51-year-old male with PMH CAD, Casanova's esophagus, gallstone pancreatitis s/p biliary stent and cholecystectomy 08/22/2021, and other problems below presents the ED for evaluation of abdominal pain and nausea. Patient reports he had been feeling well since his cholecystectomy however yesterday, he developed a mid abdominal pain with associated nausea. No vomiting or diarrhea. Denies fevers and chills. Reports that he has been avoiding high-fat and greasy foods. No alcohol use. Denies chest pain shortness of breath. No lightheadedness, dizziness, diaphoresis, syncopal events. No urinary symptoms. In the ED, labs show lipase 800. Patient is hemodynamically stable. CT ABD/pelvis shows signs of pancreatitis. Patient was given IVF, IV Zofran, IV morphine. Admission Exam Per Admitting Provider Constitutional: WD/WN, vitals as above no acute distress Respiratory: normal respiratory effort, lungs clear to auscultation Cardiovascular: Rate/Rhythm: regular rate and regular rhythm Vessels: normal peripheral pulses Extremities: no edema Gastrointestinal (Abdomen): Percussion/Palpation: + abdomen tender (Mild, ep igastric) and abdomen soft Skin: no rashes, warm and dry Neurologic: no focal motor deficits Psychiatric: A+Ox3, euthymic affect Principal Diagnosis Pancreatitis Choledocholithiasis Discharge Exam Constitutional WD/WN, vitals as above Respiratory normal respiratory effort, lungs clear to auscultation Cardiovascular Rate/Rhythm: regular rate and regular rhythm Extremities: no edema Gastrointestinal (Abdomen) Percussion/Palpation: abdomen soft; abdomen nontender Skin no rashes, warm and dry Neurologic no focal motor deficits Psychiatric A+Ox3, euthymic affect Discharge Data Allergies Allergy/AdvReac Type Severity Reaction Status Date / Time No Known Allergies Allergy Verified 08/20/21 02:37 Consultations GI General surgery Procedures Performed Operation Date: 09/23/21 07:00 Actual Procedures p Endoscopic Retrograde Cholangiopancreatogram(Not Applicable) - Kike Gross DO Ordered Studies 09/21/2021 CT ABD/pelvis IMPRESSION: 1. Status post cholecystectomy with likely a remnant gallbladder remaining in the gallbladder fossa. 2. There is peripancreatic stranding and possible pancreatic edema with seen in pancreatitis. 3. Additional findings as above. Hospital Course (1) Acute pancreatitis: (2) Hx laparoscopic cholecystectomy: -Patient presenting from home with reports of mid abdominal pain and nausea. History of gallstone pancreatitis s/p biliary stent and laparoscopic cholecystectomy on 08/22/2021 -In the ED, lipase [address] ABD/pelvis suggestive of pancreatitis and a remnant gallbladder remaining in the gallbladder fossa -Lipase 800 --> 1900 --> 382 --> 282 LFTs remained WNL. Patient remained afebrile without leukocytosis. -General surgery consult regarding CT findings regarding remnant gallbladder - Per general surgery, CT findings more consistent with Surgicel in liver bed, extremely unlikely to have remnant gallbladder. -S/p EGD and ERCP -EGD showed gastritis which was biopsied. Plastic biliary pancreatic stents in the duodenum which were removed. GI recommending sucralfate tablets 1 g p.o. twice daily for 3 months -ERCP showed choledocholithiasis, complete removal was accomplished by balloon extraction. Biliary tree was swept. -Patient's diet was advanced and by the day of discharge he was tolerating a regular diet. -Noted triglycerides checked last month were WNL (3) Anemia: -Hgb 12.4 --> 13.0 --> 9.9 --> 9.3 -No signs of bleeding -Likely dilutional component from IVF -Recommend rechecking CBC within 1 week (4) CAD (coronary artery disease): -Appears stable, no reports chest pain -Continue ASA, beta-shay, nitrate, statin, Zetia -Brilinta on hold for GI procedure, resumed on discharge (5) Hypophosphatemia: (6) Hypomagnesemia: -Replaced (7) Barretts esophagus: -Continue PPI Total Time Total Time Spent Total Time Spent (In Minutes): 35 Discharge Plan Discharge Items Patient Disposition: Home - Self-Care Reason For Visit: PANCREATITIS Discharge Diagnosis: Pancreatitis Activity: As commented below Activity Comment: May return to work on 09/29/21 Non-emergency contact: 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 Bragg) Diet: Heart Healthy Addtl Attending Provider Instructions: You were admitted to the hospital for pancreatitis. The GI doctors saw you and did an endoscopy and found sludge and gallstones in your biliary duct. This was removed. Your prior stent was also removed. There was inflammation (gastritis) noted in your stomach and you will be started on Carafate 1 gram twice daily for 3 months. Continue all other medications as prescribed. The GI office will be reaching out to you regarding follow-up appointment. Please keep follow-up appointments as scheduled with PCP. It was a pleasure taking care of you. If you need to [facility], please call [phone]. HAKAN Chen Pending Studies at Discharge: No Stand-Alone Forms: [facility], Work/School Release, Smoking Cessation Medications and DC Order Prescriptions: New sucralfate 1 gram Tablet 1 g PO BID Qty: 180 RF: 0 Continued aspirin 81 mg tablet,delayed release (DR/EC) 81 mg PO QAM RF: 0 sertraline [Zoloft] 50 mg tablet 50 mg PO QAM RF: 0 Brilinta 90 mg Tablet 90 mg PO BID 30 Days Qty: 60 RF: 3 nitroglycerin [Nitrostat] 0.4 mg tablet, sublingual 0.4 mg Sublingual UD PRN (Reason: Chest Pain) RF: 0 famotidine 40 mg tablet 40 mg PO HS RF: 0 dicyclomine 10 mg capsule 10 mg PO BID PRN (Reason: Abdominal Pain) RF: 0 ezetimibe 10 mg tablet 10 mg PO QAM RF: 0 rosuvastatin 40 mg tablet 40 mg PO QAM RF: 0 magnesium oxide 400 mg magnesium Tablet 400 mg PO QAM RF: 0 metoprolol succinate 25 mg tablet extended release 24 hr 25 mg PO QAM RF: 0 isosorbide mononitrate 60 mg tablet extended release 24 hr 60 mg PO DAILY RF: 0 pantoprazole 40 mg tablet,delayed release (DR/EC) 40 mg PO QAM RF: 0 Discharge Orders: Discharge Order (Routine); Ordered 09/24/21 Ordered By: Felecia Vazquez/Other Patient Handouts: Understanding Pancreatitis Admission Data Admit Date/Time: 09/22/21 13:13 Attending Provider: Reji Lucas Admit Provider: Regino Blunt Primary Care Provider: Wade Bragg Other Providers: Regino Blunt ; Kike Gross ; Hansel Hoover Other Interventions: Discharge Summary Assessment (RN) Last Done: 09/24/21 11:28 Supervising Physician Co-Signing Physician Notes Patient is seen and examined on day of discharge. He states feeling well. Denies any nausea, vomiting, abdominal pain, chest pain, dyspnea. On exam he is thin, no apparent distress, normocephalic atraumatic lungs are clear to auscultation, normal breath sounds, S1-S2, no murmur, no pedal edema, abdomen soft, nontender, normal bowel sounds, alert, awake, oriented, grossly no focal deficits. Acute pancreatitis secondary to choledocholithiasis. Continue current management. Advised to avoid alcohol use. Advised to follow-up with GI upon discharge. Continue Carafate as recommended by GI. I personally reviewed the record. Patient is interviewed and examined at bedside. Patient's care is coordinated with Felecia Saucedo [facility]. Please refer to the documentation above for details of patient's presentation and for discussion of other issues.
--- NOTE | 2021-10-08 10:12 | Coding Query ---
BMI To promote full compliance with coding requirements relating to patient care, physician participation is requested in all cases of automobile dealer uncertainty. Please assist us with the question(s) below: Please place an X within the parenthesis (x). If other, please document: BMI 19.4 was documented in this record for this patient. The ER documents he does report a significant weight loss in the past few weeks and Discharge Summary documents On exam he is thin. If the BMI is significant, please check the box that provides a more specific associated diagnosis: ( ) Overweight/Obese ( ) Obesity ( ) Morbid obesity ( ) Obesity Hypoventilation Syndrome (OHS) ( ) Heathy weight, not significant ( x ) Underweight/Thin ( ) Other, please specify Thank you Jasmin SEYMOUR
--- NOTE | 2021-10-08 10:21 | Coding Query ---
CODING QUERY To promote full compliance with coding requirements relating to patient care, provider participation is requested in all cases of elevator inspector uncertainty. Please assist us with the question(s) below: Coding Question(s): The Discharge Summary documents, "Acute pancreatitis secondary to choledocholithiasis" and the GI Communication Note on 09/23 documents, "The patient's biliary and pancreatic stents were removed. The pancreatic stent was partially occluded and could account for the patient's presentation", and the ERCP procedure documents, " The patient's biliary stent and pancreatic stent had been removed during the previous upper endoscopy. The pancreatic stent was partially occluded and could account for the patient's presentation with pancreatitis.". Please specify below, in your clinical opinion, regarding the most likely source(s) of the Acute Pancreatitis. ( ) most likely from Both the Choledocholithiasis as well as the occluded pancreatic stent ( x ) most likely from the Choledocholithiasis, Not from the occluded pancreatic stent ( ) most likely from the occluded pancreatic stent, Not the Choledocholithiasis ( ) most likely from other: Please Specify Physician's Response(s): Thank you Jasmin Lujan Principal Diagnosis: "�that condition established after study, to be chiefly responsible for occasioning the admission of the patient to the hospital for care." Co-Existing Principal Diagnosis: "�when two or more diagnoses equally meet the criteria for principal diagnosis as determined by the circumstances of admission, diagnostic work up, and/or therapy provided, and the Alphabetic Index, Tabular List, or another coding guideline does not provide sequencing direction, any one of the diagnoses may be sequenced first." "When the physician has documented what appears to be a current diagnosis in the body of the record, but has not included the diagnosis in the final diagnostic statement, the physician should be asked whether the diagnosis should be added." (Source Coding [facility] 2 QTR90. p3-4) DAWN
== END 2021-09-24 12:16 | disposition home or self-care (01) ==
LOC: ED 06:30 → 3N 06:30 → SUATTDRO 09-22 13:13

== ENCOUNTER 2021-09-25 01:18 | Observation (INO) ==
[2021-09-25] MEDS ORDERED: SODIUM CHLORIDE 0.9% 500 ML IV STA (01:36)
[2021-09-25] MEDS ORDERED: ONDANSETRON INJ 2 MG/ML 2 ML VIAL IV STA (01:36)
[2021-09-25] MEDS ORDERED: HYDROmorphone INJ 0.5 MG/0.5 ML SYR IV STA (01:36)
--- NOTE | 2021-09-25 01:42 | Emergency Department Note ---
Impression & Plan Acute pancreatitis, Abdominal pain, periumbilical Patient will be evaluated by the [facility] Hospitalist. ED Provider Note NAME: SAMUEL RIDER AGE: 51 SEX: M ARRIVES VIA: Ambulance INFORMANT: Patient ED PROVIDER(S): Jessi Morales DO CHIEF COMPLAINT: Abdominal pain PLAN: Disposition: Admit to the [facility]ist Condition: Unable to obtain secondary to patient's mental status. MEDICAL DECISION MAKING: This is a 51-year-old male who presents to the emergency department with periumbilical abdominal pain. The patient was just discharged yesterday from service with stone pancreatitis status post cholecystectomy. He had undergone a sweep of the biliary tree and was feeling quite good upon discharge to home yesterday. Unfortunately, the patient's pain came back late evening and he was transported back to the emergency department for evaluation. The patient's lipase level is going back up. I will discussed the case with the [facility] Triage Nursing notes reviewed and agree with them. Prior medical records reviewed Vital Signs: reviewed and unremarkable Differential diagnosis: Recurrent pancreatitis; bile leak ER treatment provided: IV Dilaudid IV Zofran Diagnostics interpreted by me: Cardiac Monitoring: Normal sinus rhythm at 83 Laboratory studies: See below HPI: 51/M arrives for evaluation of abdominal pain. Patient underwent cholecystectomy and has had persistent abdominal pain and recurrent pancreatitis since then. Patient was just discharged from the hospital yesterday after a weeklong stay was feeling much better but after some time at home, the pain returned. ROS: See above HPI for pertinent positives & negatives. A total of 10 systems reviewed and were otherwise negative. PAST MEDICAL HISTORY:See Below PAST SURGICAL HISTORY:See Below FAMILY HISTORY:See Below SOCIAL HISTORY:See Below HOME MEDICATIONS:See Below ALLERGIES:See Below VITALS:See Below PHYSICAL EXAMINATION: HEENT: Head - normocephalic and atraumatic Pupils are equal, round, and reactive to light. Extraocular eye muscles are intact, and sclera are anicteric. Nose - moist nasal mucosa without discharge. Mouth - moist buccal mucosa. Oropharynx is nonerythematous and there is no tonsillar exudate or edema noted. Neck: Supple; no cervical lymphadenopathy or nuchal rigidity Heart: Regular rate and rhythm. There is a normal S1 and S2 with no murmurs, clicks, or gallops appreciated. Lungs: Clear to auscultation bilaterally with no wheezes, rales, or rhonchi. Abdomen: Soft, moderate tenderness to palpation in the epigastrium or just above the umbilicus. The rest of the abdomen is nondistended, with good bowel sounds. There are no palpable pulsatile masses or hepatosplenomegaly. There is no guarding, rigidity, or rebound noted. Extremities: No evidence of cyanosis, clubbing, or edema. There are easily palpable peripheral pulses. Skin: warm and dry with good turgor and no rashes. ED COURSE: Times/Reassessments: 0125: Patient was evaluated in room A2. Complete history and physical was performed. Previous electronic medical records were reviewed. Patient was treated with IV Dilaudid and Zofran. I reviewed the results of the laboratory studies with the patient and he require complete bowel rest and possibly readmission to the hospital. Rescue hospitalist will evaluate for the further care Jessi Morales DO Past Med/Surg History Medical History Barretts esophagus CAD (coronary artery disease) 2017-RCA stent x 2 07/2020-STEMI, s/p PCI to left circumflex with 2 MELLY. Post procedure complicated by V. fib arrest requiring defibrillation. 12/2020-NSTEMI s/p 3 Xience MELLY to the distal aspect of prior stent of the lef t posterior lateral branch vessel Depression RADHA (generalized anxiety disorder) GERD (gastroesophageal reflux disease) Grade II diastolic dysfunction HLD (hyperlipidemia) Splenic infarct Tobacco abuse Surgical History History of vasectomy Hx laparoscopic cholecystectomy (08/22/21) Laparoscopic Cholecystectomy Dr. 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: No Beliefs That Will Affect Care: None marital status: Single Current Living Situation: Alone current occupational status: employed Feels Safe at Home: Yes Assistive Devices: None Allergies Allergies Allergy/AdvReac Type Severity Reaction Status Date / Time No Known Allergies Allergy Verified 08/20/21 02:37 Home Meds Home Medications Medication Instructions Recorded Confirmed aspirin 81 mg tablet,delayed 81 mg PO QAM 10/06/18 09/21/21 release sertraline 50 mg tablet (Zoloft) 50 mg PO QAM 10/06/18 09/21/21 nitroglycerin 0.4 mg sublingual 0.4 mg SUBLINGUAL UD PRN 10/07/18 09/21/21 tablet (Nitrostat) dicyclomine 10 mg capsule 10 mg PO BID PRN 12/06/20 09/21/21 ezetimibe 10 mg tablet 10 mg PO QAM 12/06/20 09/21/21 famotidine 40 mg tablet 40 mg PO HS 12/06/20 09/21/21 isosorbide mononitrate 60 mg 60 mg PO DAILY 12/06/20 09/21/21 tablet,extended release 24 hr magnesium oxide 400 mg PO QAM 12/06/20 09/21/21 metoprolol succinate 25 mg 25 mg PO QAM 12/06/20 09/21/21 tablet,extended release 24 hr rosuvastatin 40 mg tablet 40 mg PO QAM 12/06/20 09/21/21 pantoprazole 40 mg tablet,delayed 40 mg PO QAM 08/20/21 09/21/21 release Previous Rx's Medication Instructions Recorded ticagrelor 90 mg tablet (Brilinta) 90 mg PO BID 30 Days #60 tab 08/11/20 sucralfate 1 gram tablet 1 g PO BID #180 tab 09/24/21 Results & Data (ED) Vital Signs Vital Signs - 24 hr 09/25/21 01:25 09/25/21 01:26 09/25/21 01:36 Temperature 36.9 C 37 C Temperature Source Oral Oral Pulse Rate 83 89 Pulse Rate [Right Finger] 82 Pulse Rhythm [Right Finger] Pulse Strength [Right Finger] Respiratory Rate 18 16 16 Respiratory Effort / Characteristics Respiratory Depth Blood Pressure 138/85 Blood Pressure [Right Arm] 138/85 Blood Pressure Mean 102 Blood Pressure Mean [Right Arm] 102 Blood Pressure Position [Right Arm] Pulse Oximetry 99 99 98 Oxygen Delivery Method Room Air Room Air Room Air Sepsis Recent Fever Within 48 Hours No Sepsis New/Unexplained Change in Mental Status N/A Sepsis Action Taken by Nursing No Action Required 09/25/21 03:37 Temperature Temperature Source Pulse Rate Pulse Rate [Right Finger] 77 Pulse Rhythm [Right Finger] Regular Pulse Strength [Right Finger] Normal Respiratory Rate 16 Respiratory Effort / Characteristics Non-Labored Spontaneous Respiratory Depth Normal Blood Pressure Blood Pressure [Right Arm] 147/92 H Blood Pressure Mean Blood Pressure Mean [Right Arm] 110 Blood Pressure Position [Right Arm] Semi-fowlers Pulse Oximetry 99 Oxygen Delivery Method Room Air Sepsis Recent Fever Within 48 Hours Sepsis New/Unexplained Change in Mental Status Sepsis Action Taken by Nursing Laboratory Data Result diagrams: 09/25/21 01:41 09/25/21 01:41 Lab Results 09/25/21 09/25/21 09/25/21 Range/Units 01:41 01:41 02:29 WBC 5.89 (4.8-10.8) K/uL RBC 3.40 L (4.7-6.1) M/uL Hgb 11.2 L (14.0-18.0) g/dL Hct 32.5 L (42-52) % MCV 95.6 (80-100) fL MCH 32.9 (25-34) pg MCHC 34.5 (32-36) g/dL RDW Std Deviation 46.0 (36.4-46.3) fL RDW Coeff of Mckinley 13.3 (11.5-14.5) % Plt Count 359 (130-400) K/uL MPV 9.0 (7.4-10.4) fL Immature Gran % (Auto) 0.0 % Neut % (Auto) 65.9 % Lymph % (Auto) 20.4 % [place] % (Auto) 7.3 % Eos % (Auto) 5.6 % Baso % (Auto) 0.8 % Neut # (Auto) 3.88 (1.4-6.5) K/uL Lymph # (Auto) 1.20 (1.2-3.4) K/uL [place] # (Auto) 0.43 (0.11-0.59) K/uL Eos # (Auto) 0.33 (0-0.5) K/uL Baso # (Auto) 0.05 (0-0.2) K/uL Immature Gran # (Auto) 0.00 (0.00-0.02) K/uL Sodium 139 (136-145) mmol/L Potassium 3.2 L (3.5-5.1) mmol/L Chloride 107 (98-107) mmol/L Carbon Dioxide 26 (21-32) mmol/L Anion Gap 6.0 (3-11) BUN 5 L (7-18) mg/dl Creatinine 1.05 (0.6-1.4) mg/dl Est Cr Clr Drug Dosing 68.9 ml/min Est GFR ( Amer) 94.1 ml/min Est GFR (Non-Af Amer) 81.2 ml/min BUN/Creatinine Ratio 5.1 L (10-20) Glucose 105 H (70-99) mg/dl Calcium 8.5 (8.5-10.1) mg/dl Magnesium 2.0 (1.8-2.4) mg/dl Total Bilirubin 1.2 H D (0.2-1) mg/dl AST 16 (15-37) U/L ALT 12 (12-78) Alkaline Phosphatase 92 (45-117) U/L Total Protein 6.7 D (6.4-8.2) gm/dl Albumin 3.1 L (3.4-5.0) gm/dl Globulin 3.6 (2.5-4.0) gm/dl Albumin/Globulin Ratio 0.9 (0.9-2) Lipase 489 H (73-393) U/L Urine Color Yellow Urine Appearance Clear (Clear) Urine pH 8.5 H (4.5-7.5) Ur Specific [place] 1.009 (1.000-1.030) Urine Protein Negative (Negative) Urine Glucose (UA) Negative (Negative) Urine Ketones Negative (Negative) Urine Blood Negative (Negative) Urine Nitrite Negative (Negative) Urine Bilirubin Negative (Negative) Urine Urobilinogen Negative (Negative) Ur Leukocyte Esterase Negative (Negative) SARS-CoV-2 (PCR) (Negative) Influenza Type A (PCR) (Neg) Influenza Type B (PCR) (Neg) RSV (RT-PCR) (Neg) 09/25/21 Range/Units 03:40 WBC (4.8-10.8) K/uL RBC (4.7-6.1) M/uL Hgb (14.0-18.0) g/dL Hct (42-52) % MCV (80-100) fL MCH (25-34) pg MCHC (32-36) g/dL RDW Std Deviation (36.4-46.3) fL RDW Coeff of Mckinley (11.5-14.5) % Plt Count (130-400) K/uL MPV (7.4-10.4) fL Immature Gran % (Auto) % Neut % (Auto) % Lymph % (Auto) % [place] % (Auto) % Eos % (Auto) % Baso % (Auto) % Neut # (Auto) (1.4-6.5) K/uL Lymph # (Auto) (1.2-3.4) K/uL [place] # (Auto) (0.11-0.59) K/uL Eos # (Auto) (0-0.5) K/uL Baso # (Auto) (0-0.2) K/uL Immature Gran # (Auto) (0.00-0.02) K/uL Sodium (136-145) mmol/L Potassium (3.5-5.1) mmol/L Chloride (98-107) mmol/L Carbon Dioxide (21-32) mmol/L Anion Gap (3-11) BUN (7-18) mg/dl Creatinine (0.6-1.4) mg/dl Est Cr Clr Drug Dosing ml/min Est GFR ( Amer) ml/min Est GFR (Non-Af Amer) ml/min BUN/Creatinine Ratio (10-20) Glucose (70-99) mg/dl Calcium (8.5-10.1) mg/dl Magnesium (1.8-2.4) mg/dl Total Bilirubin (0.2-1) mg/dl AST (15-37) U/L ALT (12-78) Alkaline Phosphatase (45-117) U/L Total Protein (6.4-8.2) gm/dl Albumin (3.4-5.0) gm/dl Globulin (2.5-4.0) gm/dl Albumin/Globulin Ratio (0.9-2) Lipase (73-393) U/L Urine Color Urine Appearance (Clear) Urine pH (4.5-7.5) Ur Specific [place] (1.000-1.030) Urine Protein (Negative) Urine Glucose (UA) (Negative) Urine Ketones (Negative) Urine Blood (Negative) Urine Nitrite (Negative) Urine Bilirubin (Negative) Urine Urobilinogen (Negative) Ur Leukocyte Esterase (Negative) SARS-CoV-2 (PCR) NEGATIVE (Negative) Influenza Type A (PCR) Negative (Neg) Influenza Type B (PCR) Negative (Neg) RSV (RT-PCR) Negative (Neg) Administered Medications Potassium Chloride 40 meq/ (Lactated Ringer's) 1,020 mls @ 200 mls/hr IV .Q5H6M STA Stop: 09/25/21 08:10 Last Admin: 09/25/21 03:27 Dose: 200 mls/hr Documented by: [id number] Discontinued Medications Hydromorphone HCl (Hydromorphone Inj 0.5 Mg/0.5 Ml Syr) 0.5 mg IV NOW STA Stop: 09/25/21 01:37 Last Admin: 09/25/21 01:45 Dose: 0.5 mg Documented by: [id number] Sodium Chloride (Nss) 500 mls @ 999 mls/hr IV .Q31M STA Stop: 09/25/21 02:06 Last Infusion: 09/25/21 02:26 Dose: 0 mls/hr Documented by: [id number] Admin: 09/25/21 01:45 Dose: 999 mls/hr Documented by: [id number] Ondansetron HCl (Ondansetron Inj 2 Mg/Ml 2 Ml Vial) 4 mg IV NOW STA Stop: 09/25/21 01:37 Last Admin: 09/25/21 01:45 Dose: 4 mg Documented by: [id number] Potassium Chloride (Potassium Chloride Crtab 20 Meq Tabcr) 40 meq PO NOW STA Stop: 09/25/21 03:06 Last Admin: 09/25/21 03:32 Dose: 40 meq Documented by: [id number] Discharge Plan Visit Data Chief Complaint: Abdominal Pain Stated Complaint: LOWER ABDOMINAL PAIN ED Provider: Jessi Morales Discharge Problem: Acute pancreatitis, Abdominal pain, periumbilical Forms Stand Alone Forms: [facility] frenting Prescriptions Prescriptions: No Action aspirin 81 mg tablet,delayed release (DR/EC) 81 mg PO QAM RF: 0 sertraline [Zoloft] 50 mg tablet 50 mg PO QAM RF: 0 Brilinta 90 mg Tablet 90 mg PO BID 30 Days Qty: 60 RF: 3 nitroglycerin [Nitrostat] 0.4 mg tablet, sublingual 0.4 mg Sublingual UD PRN (Reason: Chest Pain) RF: 0 famotidine 40 mg tablet 40 mg PO HS RF: 0 dicyclomine 10 mg capsule 10 mg PO BID PRN (Reason: Abdominal Pain) RF: 0 ezetimibe 10 mg tablet 10 mg PO QAM RF: 0 rosuvastatin 40 mg tablet 40 mg PO QAM RF: 0 magnesium oxide 400 mg magnesium Tablet 400 mg PO QAM RF: 0 metoprolol succinate 25 mg tablet extended release 24 hr 25 mg PO QAM RF: 0 isosorbide mononitrate 60 mg tablet extended release 24 hr 60 mg PO DAILY RF: 0 pantoprazole 40 mg tablet,delayed release (DR/EC) 40 mg PO QAM RF: 0 sucralfate 1 gram Tablet 1 g PO BID Qty: 180 RF: 0 Referrals Referrals: Wade Bragg MD [Primary Care Provider] - Discharge Problem: Acute pancreatitis Qualifiers: Pancreatitis type: biliary Acute pancreatitis complication: unspecified Qualified Code(s): K85.10 - Biliary acute pancreatitis without necrosis or infe ction
[2021-09-25 01:54] LABS: Basophils # (auto) 0.05 K/uL (0-0.2); Basophils % (auto) 0.8 %; Eosinophils # (auto) 0.33 K/uL (0-0.5); Eosinophils % (auto) 5.6 %; Hematocrit (blood only) 32.5 % (42-52); Hemoglobin 11.2 g/dL (14.0-18.0); Lymphocytes % (auto) 20.4 %; Mean Corpuscular Hemoglobin 32.9 pg (25-34); Mean Corpuscular Hgb Conc 34.5 g/dL (32-36); Mean Corpuscular Volume 95.6 fL (80-100); Monocytes # (auto) 0.43 K/uL (0.11-0.59); Monocytes % (auto) 7.3 %; Neutrophils # (auto) 3.88 K/uL (1.4-6.5); Neutrophils % (auto) 65.9 %; Platelet Count 359 K/uL (130-400); RDW Coefficient of Variation 13.3 % (11.5-14.5); White Blood Count 5.89 K/uL (4.8-10.8)
[2021-09-25 02:11] LABS: Albumin Level 3.1 gm/dl (3.4-5.0); BUN Creatinine Ratio 5.1 (10-20); Calcium 8.5 mg/dl (8.5-10.1); Creatinine Clr Calc Pharmacy 68.9 ml/min; Est GFR (African American) 94.1 ml/min; Est GFR (Non-African American) 81.2 ml/min; Potassium 3.2 mmol/L (3.5-5.1)
[2021-09-25 02:15] LABS: Albumin Globulin Ratio 0.9 (0.9-2); Bilirubin,Total 1.2 mg/dl (0.2-1); Globulin 3.6 gm/dl (2.5-4.0); Total Protein 6.7 gm/dl (6.4-8.2)
[2021-09-25 02:40] LABS: Appearance Urine Clear (Clear); Bilirubin Urine Negative (Negative); Blood Urine Negative (Negative); Color Urine Yellow; Glucose Urine UA Negative (Negative); Ketones Urine Negative (Negative); Leukocyte Esterase Urine Negative (Negative); Nitrite Urine Negative (Negative); Protein Urine Negative (Negative); Specific Gravity Urine 1.009 (1.000-1.030); Urobilinogen Urine Negative (Negative); pH Urine 8.5 (4.5-7.5)
[2021-09-25] MEDS ORDERED: SODIUM CHLORIDE 0.9% 500 ML IV SCH (03:00)
[2021-09-25] MEDS ORDERED: POTASSIUM CHLORIDE CRTAB 20 MEQ TABCR PO STA (03:05)
[2021-09-25] MEDS ORDERED: POTASSIUM CHLORIDE 40 MEQ in LACTATED RINGER'S 1,000 ML IV STA (03:05)
--- NOTE | 2021-09-25 04:10 | History & Physical Report ---
Date of Service September 25, 2021 Assessment & Plan (1) Abdominal pain, periumbilical: Plan: secondary to recurrent pancreatitis hx gallstone pancreatitis status post cholecystectomy, ERCP hx CAD sp stent (12/2020) HTN, stable hyperlipidemia on statin Rx Casanova's esophagus, stable on regimen Hypokalemia secondary to decreased p.o. intake anxiety/mood disorder, at baseline ongoing tobacco abuse OBS GMF Bowel rest, analgesia IVF GI consult Re: Recurrent pancreatitis Replace potassium Nicotine patch as needed DVT prophylaxis. Lovenox subcu Full code Text document was generated using Bilibot voice recognition software. It may contain grammatical or spelling errors. Kindly contact undersigned for clarification of any documentation item in question. . History of Present Illness Chief Complaint: Abdominal pain Primary Care Provider: Wade Bragg MD History obtained from patient and records. Medical history significant for CAD sp stent, HTN, hyperlipidemia, recurrent pancreatitis status post cholecystectomy/ ERCP, Casanova's esophagus, anxiety/mood disorder, ongoing tobacco abuse. Last confinement September 22-2020 for recurrent pancreatitis secondary to choledocholithiasis. Patient underwent ERCP during last confinement. Patient was comfortable on discharge yesterday. Patient noted recurrence of achy periumbilical abdominal pain with nausea symptoms at home yesterday. Has not had a lot to eat as per patient. No fever, no chills, no chest pain, no S OB. Denies recent EtOH intake. MEDICAL HISTORY: As above. OPERATIONS: vasectomy, cholecystectomy FAMILY HISTORY:Hypertension, stroke; no pancreatitis PERSONAL AND SOCIAL HISTORY: One-half pack daily. No chronic intake of alcoholic beverages. 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 Allergies Allergy/AdvReac Type Severity Reaction Status Date / Time No Known Allergies Allergy Verified 08/20/21 02:37 Home Medications Medication Instructions Recorded Confirmed Type aspirin 81 mg tablet,delayed 81 mg PO QAM 10/06/18 09/25/21 History release sertraline 50 mg tablet (Zoloft) 50 mg PO QAM 10/06/18 09/25/21 History nitroglycerin 0.4 mg sublingual 0.4 mg SUBLINGUAL UD PRN 10/07/18 09/25/21 History tablet (Nitrostat) ticagrelor 90 mg tablet (Brilinta) 90 mg PO BID 30 Days #60 tab 08/11/20 09/25/21 Rx dicyclomine 10 mg capsule 10 mg PO BID PRN 12/06/20 09/25/21 History ezetimibe 10 mg tablet 10 mg PO QAM 12/06/20 09/25/21 History famotidine 40 mg tablet 40 mg PO HS 12/06/20 09/25/21 History isosorbide mononitrate 60 mg 60 mg PO DAILY 12/06/20 09/25/21 History tablet,extended release 24 hr magnesium oxide 400 mg PO QAM 12/06/20 09/25/21 History metoprolol succinate 25 mg 25 mg PO QAM 12/06/20 09/25/21 History tablet,extended release 24 hr rosuvastatin 40 mg tablet 40 mg PO QAM 12/06/20 09/25/21 History pantoprazole 40 mg tablet,delayed 40 mg PO QAM 08/20/21 09/25/21 History release sucralfate 1 gram tablet 1 g PO BID #180 tab 09/24/21 09/25/21 Rx Past Med/Surg History Medical History Barretts esophagus CAD (coronary artery disease) 2017-RCA stent x 2 07/2020-STEMI, s/p PCI to left circumflex with 2 MELLY. Post procedure complicated by V. fib arrest requiring defibrillation. 12/2020-NSTEMI s/p 3 Xience MELLY to the distal aspect of prior stent of the left posterior lateral branch vessel Depression RADHA (generalized anxiety disorder) GERD (gastroesophageal reflux disease) Grade II diastolic dysfunction HLD (hyperlipidemia) Splenic infarct Tobacco abuse Surgical History History of vasectomy Hx laparoscopic cholecystectomy (08/22/21) Laparoscopic Cholecystectomy Dr. Davidson 08/22/2021 Family History Other Diabetes Stroke Social History Smoking Status: Current every day smoker Tobacco Type: Cigarettes Years Smoked: 31; Cigarettes Per Day: 2; Second Hand Exposure: No; Do You Dip or Chew Tobacco: No; Tobacco Cessation Education Requested by Patient: No Hx Alcohol Use: No Hx Substance Use: No Preferred Language: Icelandic Communication Ability: Effective Client Evaluator Required: No Beliefs That Will Affect Care: None marital status: Single Current Living Situation: Alone current occupational status: employed Other Information That Helps Us Care for You: No Feels Safe at Home: Yes Safety Concerns: Feels Safe At This Time Assistive Devices: Glasses Review of Systems Review of Systems: As per HPI, all 10 systems reviewed, all other ROS negative Physical Exam Physical Exam: GENERAL: Slightly uncomfortable, no respiratory distress SKIN: Normal color, warm HEENT: Bespectacled, [place] palpebral conjunctivae, no ptosis, dry buccal mucosa NECK : Supple, no tenderness CHEST : CTA, no tenderness HEART : RRR, no obvious murmurs ABDOMEN: some distention, central abdominal tenderness EXTREMITIES : No LE swelling/tenderness, no other conspicuous deformities noted NEUROLOGIC : Coherent, no facial asymmetry, no other gross focality Results & Data Results & Data ([facility]) Vital Signs (Past 12 Hours) Vital Signs Temp Pulse Pulse Resp BP BP Pulse Ox 09/25/21 03:37 77 16 147/92 H 99 09/25/21 01:36 89 16 98 09/25/21 01:26 37 C 83 16 138/85 99 09/25/21 01:25 36.9 C 82 18 138/85 99 Laboratory Results Laboratory Results WBC 5.89 K/uL (4.8-10.8) 09/25/21 01:41 RBC 3.40 M/uL (4.7-6.1) L 09/25/21 01:41 Hgb 11.2 g/dL (14.0-18.0) L 09/25/21 01:41 Hct 32.5 % (42-52) L 09/25/21 01:41 MCV 95.6 fL (80-100) 09/25/21 01:41 MCH 32.9 pg (25-34) 09/25/21 01:41 MCHC 34.5 g/dL (32-36) 09/25/21 01:41 RDW Std Deviation 46.0 fL (36.4-46.3) 09/25/21 01:41 RDW Coeff of Mckinley 13.3 % (11.5-14.5) 09/25/21 01:41 Plt Count 359 K/uL (130-400) 09/25/21 01:41 MPV 9.0 fL (7.4-10.4) 09/25/21 01:41 Immature Gran % (Auto) 0.0 % 09/25/21 01:41 Neut % (Auto) 65.9 % 09/25/21 01:41 Lymph % (Auto) 20.4 % 09/25/21 01:41 [place] % (Auto) 7.3 % 09/25/21 01:41 Eos % (Auto) 5.6 % 09/25/21 01:41 Baso % (Auto) 0.8 % 09/25/21 01:41 Neut # (Auto) 3.88 K/uL (1.4-6.5) 09/25/21 01:41 Lymph # (Auto) 1.20 K/uL (1.2-3.4) 09/25/21 01:41 [place] # (Auto) 0.43 K/uL (0.11-0.59) 09/25/21 01:41 Eos # (Auto) 0.33 K/uL (0-0.5) 09/25/21 01:41 Baso # (Auto) 0.05 K/uL (0-0.2) 09/25/21 01:41 Immature Gran # (Auto) 0.00 K/uL (0.00-0.02) 09/25/21 01:41 Sodium 139 mmol/L (136-145) 09/25/21 01:41 Potassium 3.2 mmol/L (3.5-5.1) L 09/25/21 01:41 Chloride 107 mmol/L (98-107) 09/25/21 01:41 Carbon Dioxide 26 mmol/L (21-32) 09/25/21 01:41 Anion Gap 6.0 (3-11) 09/25/21 01:41 BUN 5 mg/dl (7-18) L 09/25/21 01:41 Creatinine 1.05 mg/dl (0.6-1.4) 09/25/21 01:41 Est Cr Clr Drug Dosing 68.9 ml/min 09/25/21 01:41 Est GFR ( Amer) 94.1 ml/min 09/25/21 01:41 Est GFR (Non-Af Amer) 81.2 ml/min 09/25/21 01:41 BUN/Creatinine Ratio 5.1 (10-20) L 09/25/21 01:41 Glucose 105 mg/dl (70-99) H 09/25/21 01:41 Calcium 8.5 mg/dl (8.5-10.1) 09/25/21 01:41 Magnesium 2.0 mg/dl (1.8-2.4) 09/25/21 01:41 Total Bilirubin 1.2 mg/dl (0.2-1) H D 09/25/21 01:41 AST 16 U/L (15-37) 09/25/21 01:41 ALT 12 (12-78) 09/25/21 01:41 Alkaline Phosphatase 92 U/L (45-117) 09/25/21 01:41 Total Protein 6.7 gm/dl (6.4-8.2) D 09/25/21 01:41 Albumin 3.1 gm/dl (3.4-5.0) L 09/25/21 01:41 Globulin 3.6 gm/dl (2.5-4.0) 09/25/21 01:41 Albumin/Globulin Ratio 0.9 (0.9-2) 09/25/21 01:41 Lipase 489 U/L (73-393) H 09/25/21 01:41 Urine Color Yellow 09/25/21 02:29 Urine Appearance Clear (Clear) 09/25/21 02:29 Urine pH 8.5 (4.5-7.5) H 09/25/21 02:29 Ur Specific [place] 1.009 (1.000-1.030) 09/25/21 02:29 Urine Protein Negative (Negative) 09/25/21 02:29 Urine Glucose (UA) Negative (Negative) 09/25/21 02:29 Urine Ketones Negative (Negative) 09/25/21 02:29 Urine Blood Negative (Negative) 09/25/21 02:29 Urine Nitrite Negative (Negative) 09/25/21 02:29 Urine Bilirubin Negative (Negative) 09/25/21 02:29 Urine Urobilinogen Negative (Negative) 09/25/21 02:29 Ur Leukocyte Esterase Negative (Negative) 09/25/21 02:29
[2021-09-25 04:36] LABS: Influenza A virus by PCR Negative (Neg); Influenza B virus by PCR Negative (Neg); RSV by PCR Negative (Neg); SARS CoV2 RNA(COVID-19) InHosp NEGATIVE (Negative)
[2021-09-25] MEDS ORDERED: oxyCODONE HCL IR 5 MG TAB (IMMEDIATE RELEASE) PO STA (05:54)
[2021-09-25] MEDS ORDERED: ACETAMINOPHEN 325 MG TAB PO PRN ×2 (06:23)
[2021-09-25] MEDS ORDERED: LORazepam 0.25 MG/0.5 ML VIAL IV PRN (06:23)
[2021-09-25] MEDS ORDERED: PROMETHAZINE HCL 12.5 MG in SODIUM CHLORIDE 0.9% 50 ML IV PRN (06:23)
[2021-09-25] MEDS: ASPIRIN 81 MG ECTAB PO SCH (08:01)
[2021-09-25] MEDS: EZETIMIBE 10 MG TABLET PO SCH (08:01)
[2021-09-25] MEDS: METOPROLOL SUCC 25MG EXT REL TAB PO SCH (08:01)
[2021-09-25] MEDS: ISOSORBIDE MONO EXTENDED REL 60 MG TABCR PO SCH (08:01)
[2021-09-25] MEDS: SERTRALINE HCL 50 MG TABLET PO SCH (08:01)
[2021-09-25] MEDS: PANTOprazole 40 MG TAB PO SCH (08:01)
[2021-09-25] MEDS: LACTATED RINGER'S 1,000 ML IV SCH ×4 (08:01→22:34)
[2021-09-25] MEDS: ROSUVASTATIN CALCIUM 20 MG TAB PO SCH (08:02)
[2021-09-25] MEDS: TICAGRELOR 90 MG TAB PO SCH ×2 (08:02→20:50)
[2021-09-25] MEDS: SUCRALFATE 1 GM TAB PO SCH ×2 (08:02→20:50)
[2021-09-25] MEDS: ENOXAPARIN INJ 40 MG/0.4 ML SYR SQ SCH (08:02)
[2021-09-25] MEDS: MoRPHine SULFATE 4 MG/ML 1 ML CARP\\VIAL IV PRN (08:08)
--- NOTE | 2021-09-25 10:37 | Gastrointestinal Consultation ---
Date of Consultation September 25, 2021 Assessment & Plan (1) Acute pancreatitis: (2) Abdominal pain, periumbilical: 51 y/o male with h/o recurrent pancreatitis, s/p CCY and ERCP, last ERCP was 09/23 w/ plastic biliary stent and choledocholithiasis removed, re-admitted with abd discomfort.. Lipase is mildly elevated and LFTs WNL other than Tbili 1.2. After a dose of analgesia his abd pain is gone. Abd soft, nontender on exam; he is resting comfortably. - He can try ice chips -> clear liquids as tolerated - Analgesia PRN - IV hydration - OOB as able - Carafate tablet 1 gram BID for 3 months. OP GI follow up in office. - Will order IgG4 sublasses and MARSHA to eval for autoimmune pancreatitis. Thank you for allowing us to participate in the care of this patient. Please call with any acute changes, questions or concerns. Please see addendum below with additional recommendation from my supervising physician. Supervising Physician Co-Signing Physician Notes The patient was discharged yesterday midday and notes that he had worsening abdominal discomfort at home. It appears that his diet was perhaps advanced a little too quickly. It appears that he is doing better today but would recommend a clear liquid only diet for the present time. Physical examination No obvious distress, no scleral icterus Normal epigastric tenderness Impression: Patient status post ERCP after admitted with recurrent pancreatitis due to stent obstruction. The patient's liver enzymes are presently within normal limits and his pain is improving. Would recommend against any additional imaging for the present time or interventions. I would suggest continued IV hydration and clear liquid diet. Hopefully the patient will have improvement over the next 24 to 48 hours. Recommendations Continue with IV hydration Clear liquid diet Call with any questions or concerns History of Present Illness Reason for Consultation: abd pain Requesting Physician: Dr. Anne Attending Physician: Reji Lucas MD History of Present Illness This is a 51 year old male admitted w/ h/o recurrent pancreatitis, choledocholithiasis, s/p ERCP and cholecystectomy several weeks ago, and just discharged yesterday after admission for recurrent pancreatitis and s/p ERCP 09/23 w/ plastic biliary stent and choledocholithiasis removed. He tolerated regular diet with eggs prior to discharge. He was home for a few hours and he had nothing to eat or drink during that time. He did have a formed brown BM. He developed recurrent upper abd pain, nausea and retunred to the ER. On arrival had lipase of 489 (on DC was in the 200's), but normal LFTs other than tbili 1.2. He was given a dose of pain medication and presently states his abd pain is completely resolved; he currently has no complaints and is resting comfortably in bed. VSS, he's afebrile. Denies fever, chills, n/v, hematemesis, melena, hematochezia, CP, SOB, cough, leg edema. ERCP 09/23/21: - The major papilla was located entirely within a diverticulum. - Prior biliary sphincterotomy appeared open. - A filling defect consistent with a stone and sludge was seen on the cholangiogram. - The patient has had a cholecystectomy. - Choledocholithiasis was found. Complete removal was accomplished by balloon extraction. - The biliary tree was swept. - Indomethacin given to decrease risk of post-ERCP pancreatitis. EGD 09/23/21: - Normal esophagus. - Gastritis. Biopsied. - Normal duodenal bulb, second portion of the duodenum and third portion of the duodenum. - Plastic biliary pancreatic stents in the duodenum. Removed. Stomach, biopsy: - Antral mucosa with reactive gastropathy - Body mucosa with no diagnostic abnormality - Negative for acute inflammation, intestinal metaplasia, dysplasia and carcinoma - No H. pylori identified on H and E stain ERCP 2020:- The major papilla was located partially within a diverticulum. - Choledocholithiasis was found. Complete removal was accomplished by biliary sphincterotomy and balloon extraction. - One biliary stent was placed into the common bile duct. - One pancreatic stent was placed into the ventral pancreatic duct. - Indomethacin given to decrease risk of post-ERCP pancreatitis. EUS 2020:There was dilation in the common bile duct which measured up to 7 mm. - One stone was visualized endosonographically in the common bile duct. - Many stones were visualized endosonographically in the gallbladder. - There was no evidence of significant pathology in the visualized portion of the liver. - Pancreatic parenchymal abnormalities consisting of lobularity were noted in the entire pancreas. - One benign lymph node was visualized in the annie hepatis region. Tissue has not been obtained. However, the endosonographic appearance is consistent with benign inflammatory changes. - Endosonographic images of the left adrenal gland were unremarkable. - No specimens collected. EGD 2020:Esophageal mucosal changes suspicious for Casanova's esophagus,classified as Casanova's stage C4-M5 per [place] criteria. Biopsied. - Gastritis. Biopsied. - Duodenitis. - Normal second portion of the duodenum and third portion of the duodenum Allergies Allergy/AdvReac Type Severity Reaction Status Date / Time No Known Allergies Allergy Verified 08/20/21 02:37 Home Medications Medication Instructions Recorded Confirmed Type aspirin 81 mg tablet,delayed 81 mg PO QAM 10/06/18 09/25/21 History release sertraline 50 mg tablet (Zoloft) 50 mg PO QAM 10/06/18 09/25/21 History nitroglycerin 0.4 mg sublingual 0.4 mg SUBLINGUAL UD PRN 10/07/18 09/25/21 History tablet (Nitrostat) ticagrelor 90 mg tablet (Brilinta) 90 mg PO BID 30 Days #60 tab 08/11/20 09/25/21 Rx dicyclomine 10 mg capsule 10 mg PO BID PRN 12/06/20 09/25/21 History ezetimibe 10 mg tablet 10 mg PO QAM 12/06/20 09/25/21 History famotidine 40 mg tablet 40 mg PO HS 12/06/20 09/25/21 History isosorbide mononitrate 60 mg 60 mg PO DAILY 12/06/20 09/25/21 History tablet,extended release 24 hr magnesium oxide 400 mg PO QAM 12/06/20 09/25/21 History metoprolol succinate 25 mg 25 mg PO QAM 12/06/20 09/25/21 History tablet,extended release 24 hr rosuvastatin 40 mg tablet 40 mg PO QAM 12/06/20 09/25/21 History pantoprazole 40 mg tablet,delayed 40 mg PO QAM 08/20/21 09/25/21 History release sucralfate 1 gram tablet 1 g PO BID #180 tab 09/24/21 09/25/21 Rx Patient History Medical History Barretts esophagus CAD (coronary artery disease) 2017-RCA stent x 2 07/2020-STEMI, s/p PCI to left circumflex with 2 MELLY. Post procedure compl icated by V. fib arrest requiring defibrillation. 12/2020-NSTEMI s/p 3 Xience MELLY to the distal aspect of prior stent of the left posterior lateral branch vessel Depression RADHA (generalized anxiety disorder) GERD (gastroesophageal reflux disease) Grade II diastolic dysfunction HLD (hyperlipidemia) Splenic infarct Tobacco abuse Surgical History History of vasectomy Hx laparoscopic cholecystectomy (08/22/21) Laparoscopic Cholecystectomy Dr. 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 Beliefs That Will Affect Care: None marital status: Single Current Living Situation: Alone current occupational status: employed Other Information That Helps Us Care for You: No Feels Safe at Home: Yes Safety Concerns: Feels Safe At This Time Assistive Devices: Glasses Review of Systems Review of Systems: All systems reviewed & are unremarkable except as noted in HPI & below Physical Exam Constitutional: WD/WN, vitals as above (resting comfortably in bed ) Eyes: PERRL, conjunctivae normal, anicteric sclerae Neck: trachea midline, no thyromegaly Respiratory: normal respiratory effort, lungs clear to auscultation Cardiovascular: RRR, no murmur, no edema Gastrointestinal (Abdomen): normal bowel sounds, soft, nontender, no hepatosplenomegaly Skin: no rashes, warm and dry Psychiatric: A+Ox3, euthymic affect Results & Data ([facility]) Vital Signs (Past 12 Hours) Vital Signs Temp Pulse Pulse Resp BP BP Pulse Ox 09/25/21 07:50 36.8 C 61 16 150/92 H 96 09/25/21 06:23 70 16 153/99 H 97 09/25/21 06:03 84 16 150/93 H 98 09/25/21 05:00 76 16 138/87 98 09/25/21 03:37 77 16 147/92 H 99 09/25/21 02:55 68 16 153/99 H 97 09/25/21 01:36 89 16 98 09/25/21 01:26 37 C 83 16 138/85 99 09/25/21 01:25 36.9 C 82 18 138/85 99 Laboratory Results 09/25/21 09/25/21 09/25/21 Range/Units 03:40 02:29 01:41 WBC (4.8-10.8) K/uL RBC (4.7-6.1) M/uL Hgb (14.0-18.0) g/dL Hct (42-52) % MCV (80-100) fL MCH (25-34) pg MCHC (32-36) g/dL RDW Std Deviation (36.4-46.3) fL RDW Coeff of [place] (11.5-14.5) % Plt Count (130-400) K/uL MPV (7.4-10.4) fL Immature Gran % (Auto) % Neut % (Auto) % Lymph % (Auto) % [place] % (Auto) % Eos % (Auto) % Baso % (Auto) % Neut # (Auto) (1.4-6.5) K/uL Lymph # (Auto) (1.2-3.4) K/uL [place] # (Auto) (0.11-0.59) K/uL Eos # (Auto) (0-0.5) K/uL Baso # (Auto) (0-0.2) K/uL Immature Gran # (Auto) (0.00-0.02) K/uL Sodium 139 (136-145) mmol/L Potassium 3.2 L (3.5-5.1) mmol/L Chloride 107 (98-107) mmol/L Carbon Dioxide 26 (21-32) mmol/L Anion Gap 6.0 (3-11) BUN 5 L (7-18) mg/dl Creatinine 1.05 (0.6-1.4) mg/dl Est Cr Clr Drug Dosing 68.9 ml/min Est GFR ( Amer) 94.1 ml/min Est GFR (Non-Af Amer) 81.2 ml/min BUN/Creatinine Ratio 5.1 L (10-20) Glucose 105 H (70-99) mg/dl Calcium 8.5 (8.5-10.1) mg/dl Magnesium 2.0 (1.8-2.4) mg/dl Total Bilirubin 1.2 H D (0.2-1) mg/dl AST 16 (15-37) U/L ALT 12 (12-78) Alkaline Phosphatase 92 (45-117) U/L Total Protein 6.7 D (6.4-8.2) gm/dl Albumin 3.1 L (3.4-5.0) gm/dl Globulin 3.6 (2.5-4.0) gm/dl Albumin/Globulin Ratio 0.9 (0.9-2) Lipase 489 H (73-393) U/L Urine Color Yellow Urine Appearance Clear (Clear) Urine pH 8.5 H (4.5-7.5) Ur Specific [place] 1.009 (1.000-1.030) Urine Protein Negative (Negative) Urine Glucose (UA) Negative (Negative) Urine Ketones Negative (Negative) Urine Blood Negative (Negative) Urine Nitrite Negative (Negative) Urine Bilirubin Negative (Negative) Urine Urobilinogen Negative (Negative) Ur Leukocyte Esterase Negative (Negative) SARS-CoV-2 (PCR) NEGATIVE (Negative) Influenza Type A (PCR) Negative (Neg) Influenza Type B (PCR) Negative (Neg) RSV (RT-PCR) Negative (Neg) 09/25/21 Range/Units 01:41 WBC 5.89 (4.8-10.8) K/uL RBC 3.40 L (4.7-6.1) M/uL Hgb 11.2 L (14.0-18.0) g/dL Hct 32.5 L (42-52) % MCV 95.6 (80-100) fL MCH 32.9 (25-34) pg MCHC 34.5 (32-36) g/dL RDW Std Deviation 46.0 (36.4-46.3) fL RDW Coeff of [place]in[place] 13.3 (11.5-14.5) % Plt Count 359 (130-400) K/uL MPV 9.0 (7.4-10.4) fL Immature Gran % (Auto) 0.0 % Neut % (Auto) 65.9 % Lymph % (Auto) 20.4 % [place] % (Auto) 7.3 % Eos % (Auto) 5.6 % Baso % (Auto) 0.8 % Neut # (Auto) 3.88 (1.4-6.5) K/uL Lymph # (Auto) 1.20 (1.2-3.4) K/uL [place] # (Auto) 0.43 (0.11-0.59) K/uL Eos # (Auto) 0.33 (0-0.5) K/uL Baso # (Auto) 0.05 (0-0.2) K/uL Immature Gran # (Auto) 0.00 (0.00-0.02) K/uL Sodium (136-145) mmol/L Potassium (3.5-5.1) mmol/L Chloride (98-107) mmol/L Carbon Dioxide (21-32) mmol/L Anion Gap (3-11) BUN (7-18) mg/dl Creatinine (0.6-1.4) mg/dl Est Cr Clr Drug Dosing ml/min Est GFR ( Amer) ml/min Est GFR (Non-Af Amer) ml/min BUN/Creatinine Ratio (10-20) Glucose (70-99) mg/dl Calcium (8.5-10.1) mg/dl Magnesium (1.8-2.4) mg/dl Total Bilirubin (0.2-1) mg/dl AST (15-37) U/L ALT (12-78) Alkaline Phosphatase (45-117) U/L Total Protein (6.4-8.2) gm/dl Albumin (3.4-5.0) gm/dl Globulin (2.5-4.0) gm/dl Albumin/Globulin Ratio (0.9-2) Lipase (73-393) U/L Urine Color Urine Appearance (Clear) Urine pH (4.5-7.5) Ur Specific [place] (1.000-1.030) Urine Protein (Negative) Urine Glucose (UA) (Negative) Urine Ketones (Negative) Urine Blood (Negative) Urine Nitrite (Negative) Urine Bilirubin (Negative) Urine Urobilinogen (Negative) Ur Leukocyte Esterase (Negative) SARS-CoV-2 (PCR) (Negative) Influenza Type A (PCR) (Neg) Influenza Type B (PCR) (Neg) RSV (RT-PCR) (Neg) (1) Acute pancreatitis Acute pancreatitis complication: unspecified Pancreatitis type: biliary Qualified Code(s): K85.10 - Biliary acute pancreatitis without necrosis or infection
[2021-09-25] MEDS: oxyCODONE HCL IR 5 MG TAB (IMMEDIATE RELEASE) PO PRN (13:12)
--- NOTE | 2021-09-25 16:01 | Hospitalist Progress Note ---
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 abuse 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 Continue home meds DVT Px: Lovenox SQ Code Status Full Code Admission and Anticipated Discharge Date Admission Date: September 25, 2021 Subjective Patient is seen and examined at bedside States abdominal pain is better with medications Did not tolerate Jell-O but tolerated other liquid diet Denies any nausea, vomiting, chest pain, dyspnea Offers no other complaints Review of Systems Review of Systems: All systems reviewed & are unremarkable except as noted in Subjective Physical Exam Physical Exam: Physical Exam: Vitals signs as noted above General Appearance:Thin, no apparent distress Head: normocephalic, Atraumatic Eyes: normal inspection, EOMI Neck: supple, Trachea midline Respiratory/Chest: Normal breath sounds, CTA, No accessory muscle use Cardiovascular: S1, S2, No murmur Abdomen/GI:Soft, mild tender, Bowel sounds present Extremities/Musculoskeletal:normal inspection, no edema Neurologic/Psych:AAOX3, grossly no focal neurological deficits Skin: normal color, warm Results & Data Results & Data ([facility]) Vital Signs (Past 12 Hours) Vital Signs Temp Pulse Resp BP Pulse Ox 09/25/21 15:45 36.4 C L 58 L 12 106/67 98 09/25/21 07:50 36.8 C 61 16 150/92 H 96 09/25/21 06:23 70 16 153/99 H 97 09/25/21 06:03 84 16 150/93 H 98 09/25/21 05:00 76 16 138/87 98 Laboratory Results Short CBC 09/25/21 Range/Units 01:41 WBC 5.89 (4.8-10.8) K/uL Hgb 11.2 L (14.0-18.0) g/dL Hct 32.5 L (42-52) % Plt Count 359 (130-400) K/uL BMP 09/25/21 01:41 Sodium 139 Potassium 3.2 L Chloride 107 Carbon Dioxide 26 BUN 5 L Creatinine 1.05 Glucose 105 H Calcium 8.5 Liver Function 09/25/21 Range/Units 01:41 Total Bilirubin 1.2 H D (0.2-1) mg/dl AST 16 (15-37) U/L ALT 12 (12-78) Alkaline Phosphatase 92 (45-117) U/L Albumin 3.1 L (3.4-5.0) gm/dl Urine 09/25/21 Range/Units 02:29 Urine Color Yellow Urine Appearance Clear (Clear) Urine pH 8.5 H (4.5-7.5) Ur Specific [place] 1.009 (1.000-1.030) Urine Protein Negative (Negative) Urine Glucose (UA) Negative (Negative)
[2021-09-25] MEDS: FAMOTIDINE 40 MG TABLET PO SCH (20:50)
[2021-09-26] MEDS: oxyCODONE HCL IR 5 MG TAB (IMMEDIATE RELEASE) PO PRN ×2 (00:43→10:22)
[2021-09-26] MEDS: LACTATED RINGER'S 1,000 ML IV SCH (03:34)
[2021-09-26 06:07] LABS: Basophils % (auto) 1.5 %; Eosinophils # (auto) 0.53 K/uL (0-0.5); Eosinophils % (auto) 7.9 %; Hematocrit (blood only) 32.7 % (42-52); Hemoglobin 10.9 g/dL (14.0-18.0); Immature Granulocytes # (auto) 0.02 K/uL (0.00-0.02); Immature Granulocytes % (auto) 0.3 %; Lymphocytes # (auto) 2.07 K/uL (1.2-3.4); Lymphocytes % (auto) 30.8 %; Mean Corpuscular Hemoglobin 31.7 pg (25-34); Mean Corpuscular Hgb Conc 33.3 g/dL (32-36); Mean Corpuscular Volume 95.1 fL (80-100); Monocytes # (auto) 0.55 K/uL (0.11-0.59); Monocytes % (auto) 8.2 %; Neutrophils # (auto) 3.46 K/uL (1.4-6.5); Neutrophils % (auto) 51.3 %; Platelet Count 324 K/uL (130-400); RDW Coefficient of Variation 13.8 % (11.5-14.5); Red Blood Count 3.44 M/uL (4.7-6.1); White Blood Count 6.73 K/uL (4.8-10.8)
[2021-09-26 06:45] LABS: Albumin Globulin Ratio 0.8 (0.9-2); Albumin Level 2.5 gm/dl (3.4-5.0); BUN Creatinine Ratio 6.8 (10-20); Bilirubin,Total 0.4 mg/dl (0.2-1); Calcium 8.5 mg/dl (8.5-10.1); Creatinine Clr Calc Pharmacy 71.4 ml/min; Est GFR (Non-African American) 94.1 ml/min; Globulin 3.3 gm/dl (2.5-4.0); Potassium 4.2 mmol/L (3.5-5.1); Total Protein 5.8 gm/dl (6.4-8.2)
[2021-09-26] MEDS: EZETIMIBE 10 MG TABLET PO SCH (08:36)
[2021-09-26] MEDS: METOPROLOL SUCC 25MG EXT REL TAB PO SCH (08:36)
[2021-09-26] MEDS: ASPIRIN 81 MG ECTAB PO SCH (08:36)
[2021-09-26] MEDS: TICAGRELOR 90 MG TAB PO SCH ×2 (08:36→20:03)
[2021-09-26] MEDS: PANTOprazole 40 MG TAB PO SCH (08:36)
[2021-09-26] MEDS: ROSUVASTATIN CALCIUM 20 MG TAB PO SCH (08:36)
[2021-09-26] MEDS: ISOSORBIDE MONO EXTENDED REL 60 MG TABCR PO SCH (08:36)
[2021-09-26] MEDS: SUCRALFATE 1 GM TAB PO SCH ×2 (08:37→20:03)
[2021-09-26] MEDS: SERTRALINE HCL 50 MG TABLET PO SCH (08:37)
[2021-09-26] MEDS: ENOXAPARIN INJ 40 MG/0.4 ML SYR SQ SCH (08:38)
--- NOTE | 2021-09-26 10:23 | Hospitalist Progress Note ---
Date of Service September 26, 2021 Assessment & Plan (1) Abdominal pain, periumbilical: Plan: Recurrent pancreatitis H/O gallstone pancreatitis S/P cholecystectomy, ERCP Last ERCP on 09/23 with biliary stent placement, removal of choledocholithiasis Continue IV fluids On clear liquids today -GI recommended continuing clear liquids, when tolerated several meals of clear liquids can increase to full liquids Pain control IgG4 and MARSHA to rule out autoimmune pancreatitis Appreciate GI input Gastritis Continue Carafate H/O CAD sp stent (12/2020) Continue home meds HTN Continue Metoprolol Hyperlipidemia on statin Casanova's esophagus Continue PPI Hypokalemia Replace as needed Anxiety/mood disorder ongoing tobacco abuse 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 Patient was doing well this morning but later complained of significant abdominal discomfort associated with nausea. Offers no other complaints. Discussed with GI today. On exam patient is thin, mild distress secondary to pain, EOMI, normocephalic atraumatic, normal breath sounds, clear to auscultation, abdomen soft,+ tender, normal bowel sounds, alert, awake, oriented, grossly no focal deficits. Recurrent pancreatitis. Continue IV fluids. Appreciate GI input. Continue liquid diet today. Pain control. Needs follow-up with GI upon discharge. I personally reviewed the record. Patient is interviewed and examined at bedside. Patient's care is coordinated with Eva Ulloa PA-C. Please refer to the documentation above for details of patient's presentation and for discussion of other issues. Subjective Patient is seen and examined 315. Follow-up recurrent pancreatitis. He is doing well this morning and tolerated clear liquid diet. He is without abdominal pain. He states he did have abdominal pain throughout the night and had to take pain medications. He denies nausea, vomiting, abdominal pain, fever, chills, sweats, chest pain, shortness of breath. Review of Systems Review of Systems: All systems reviewed & are unremarkable except as noted in HPI & below Physical Exam Physical Exam: Gen: Thin, male, sitting up in bedside chair, NAD, A&O x3 HEENT: Normocephalic, atraumatic, conjunctivae moist, sclerae anicteric, mucous membranes moist. Lung: Clear to Auscultation bilaterally, no wheezes/rales/rhonchi Heart: Regular rate, regular rhythm, no murmurs, rubs, or gallops Abdomen: Soft, NT, ND +BS x 4 Extremities: No edema Skin: Warm, no rash, negative turgor. Results & Data Results & Data ([facility]) Vital Signs (Past 12 Hours) Vital Signs Temp Pulse Resp BP Pulse Ox 09/26/21 07:13 36.6 C 66 12 136/85 98 09/25/21 22:34 36.7 C 70 16 144/85 H 98 Laboratory Results Short CBC 09/26/21 Range/Units 05:36 WBC 6.73 (4.8-10.8) K/uL Hgb 10.9 L (14.0-18.0) g/dL Hct 32.7 L (42-52) % Plt Count 324 (130-400) K/uL BMP 09/26/21 05:36 Sodium 136 Potassium 4.2 D Chloride 107 Carbon Dioxide 25 BUN 6 L Creatinine 0.93 Glucose 81 Calcium 8.5 Liver Function 09/26/21 Range/Units 05:36 Total Bilirubin 0.4 D (0.2-1) mg/dl AST 10 L (15-37) U/L ALT 12 (12-78) Alkaline Phosphatase 84 (45-117) U/L Albumin 2.5 L (3.4-5.0) gm/dl Medications Administered Current Inpatient Medications Acetaminophen (Acetaminophen 325 Mg Tab) 650 mg PO Q6H PRN PRN Reason: Fever/pain Stop: 10/25/21 06:22 Last Admin: 09/25/21 13:12 Dose: 650 mg Documented by: Aspirin (Aspirin 81 Mg Ectab) 81 mg PO [facility] Stop: 10/25/21 08:59 Last Admin: 09/26/21 08:36 Dose: 81 mg Documented by: Ezetimibe (Ezetimibe 10 Mg Tablet) 10 mg PO [facility] Stop: 10/25/21 08:59 Last Admin: 09/26/21 08:36 Dose: 10 mg Documented by: Enoxaparin Sodium (Enoxaparin Inj 40 Mg/0.4 Ml Syr) 40 mg SQ [facility] Stop: 10/25/21 08:59 Last Admin: 09/26/21 08:38 Dose: Not Given Documented by: Famotidine (Famotidine 40 Mg Tablet) 40 mg PO HS [facility] Stop: 10/25/21 20:59 Last Admin: 09/25/21 20:50 Dose: 40 mg Documented by: Promethazine HCl 12.5 mg/ (Sodium Chloride) 50.5 mls @ 202 mls/hr IV Q6H PRN PRN Reason: Nausea And Vomiting Stop: 10/25/21 06:22 Lorazepam (Ativan) 0.25 mg in 0.5 mls @ 0.5 mls/min IV Q4H PRN PRN Reason: Anxiety Stop: 10/25/21 06:22 Isosorbide Mononitrate (Isosorbide [place] Extended Rel 60 Mg Tabcr) 60 mg PO DAILY [facility] Stop: 10/25/21 08:59 Last Admin: 09/26/21 08:36 Dose: 60 mg Documented by: Metoprolol Succinate (Metoprolol Succ 25mg Ext Rel Tab) 25 mg PO [facility] Stop: 10/25/21 08:59 Last Admin: 09/26/21 08:36 Dose: 25 mg Documented by: Morphine Sulfate (Morphine Sulfate 4 Mg/Ml 1 Ml Carp\Vial) 4 mg IV Q4H PRN PRN Reason: Pain Stop: 10/09/21 06:22 Last Admin: 09/25/21 08:08 Dose: 4 mg Documented by: Oxycodone HCl (Oxycodone Hcl Ir 5 Mg Tab (Immediate Release)) 5 mg PO Q4H PRN PRN Reason: Pain Stop: 10/09/21 06:22 Last Admin: 09/26/21 10:22 Dose: 5 mg Documented by: Pantoprazole Sodium (Pantoprazole 40 Mg Tab) 40 mg PO [facility] Stop: 10/25/21 08:59 Last Admin: 09/26/21 08:36 Dose: 40 mg Documented by: Rosuvastatin Calcium (Rosuvastatin Calcium 20 Mg Tab) 40 mg PO [facility] Stop: 10/25/21 08:59 Last Admin: 09/26/21 08:36 Dose: 40 mg Documented by: Sertraline HCl (Sertraline Hcl 50 Mg Tablet) 50 mg PO [facility] Stop: 10/25/21 08:59 Last Admin: 09/26/21 08:37 Dose: 50 mg Documented by: Sucralfate (Sucralfate 1 Gm Tab) 1 gm PO BID [facility] Stop: 10/25/21 08:59 Last Admin: 09/26/21 08:37 Dose: 1 gm Documented by: Ticagrelor (Ticagrelor 90 Mg Tab) 90 mg PO BID [facility] Stop: 10/25/21 08:59 Last Admin: 09/26/21 08:36 Dose: 90 mg Documented by:
--- NOTE | 2021-09-26 10:29 | Gastroenterology Progress Note ---
Date of Service September 26, 2021 Assessment & Plan (1) Acute pancreatitis: (2) Abdominal pain, periumbilical: Plan: 51 y/o male with h/o recurrent pancreatitis, s/p CCY and ERCP, last ERCP was 09/23, re-admitted with abd discomfort. Reports abd discomfort is improved today. Tolerating clears. LFTs WNL. Resting comfortably in bedside chair. Abd soft, nontender, non distended, no scleral icterus. - Continue clear liquids as tolerated. If pt tolerating several meals of clears, consider advancing slowly to full liquids - Analgesia PRN (not requiring presently) - Continue IV hydration - Encouraged OOB as able - Carafate tablet 1 gram BID for 3 months. OP GI follow up in office. - IgG4 subclasses and MARSHA pending to eval for autoimmune pancreatitis Thank you for allowing us to participate in the care of this patient. Please call with any acute changes, questions or concerns. Please see addendum below with additional recommendation from my supervising physician. Admission and Anticipated Discharge Date Admission Date: September 25, 2021 Supervising Physician Co-Signing Physician Notes I saw and evaluated the patient today. He notes that he has had no recurrence of his abdominal discomfort. I wonder if his diet was advanced too quickly last time as he had presented with pancreatitis earlier this week. Would recommend a full liquid diet today and perhaps of low fat diet tomorrow if pain-free. If the patient is doing well tomorrow he can likely be discharged home. Please c all with any questions or concerns. Subjective Patient seen and examined, chart reviewed. Overnight pt had some abd discomfort that resolved. Currently pain free; states he is not requiring analgesia. Tolerated clears for breakfast (broth). Didn't tolerate Jell-O last evening. Labs reviewed. HGB diminished some w/ IVF. OOB to chair. + Flatus No BM No N/v, fever, chills No CP, SOB, cough Voiding well No melena, hematochezia, hematemesis Review of Systems Review of Systems: All systems reviewed & are unremarkable except as noted in HPI & below Physical Exam Constitutional: WD/WN, vitals as above (resting comfortably in bedside chair ) Eyes: PERRL, conjunctivae normal, anicteric sclerae Respiratory: normal respiratory effort, lungs clear to auscultation Cardiovascular: RRR, no murmur, no edema Gastrointestinal (Abdomen): normal bowel sounds, soft, nontender, no hepatosplenomegaly Skin: no rashes, warm and dry Psychiatric: A+Ox3, euthymic affect Results & Data ([facility]) Vital Signs (Past 12 Hours) Vital Signs Temp Pulse Resp BP Pulse Ox 09/26/21 07:13 36.6 C 66 12 136/85 98 09/25/21 22:34 36.7 C 70 16 144/85 H 98 Laboratory Results 09/26/21 09/26/21 09/25/21 Range/Units 05:36 05:36 10:57 WBC 6.73 (4.8-10.8) K/uL RBC 3.44 L (4.7-6.1) M/uL Hgb 10.9 L (14.0-18.0) g/dL Hct 32.7 L (42-52) % MCV 95.1 (80-100) fL MCH 31.7 (25-34) pg MCHC 33.3 (32-36) g/dL RDW Std Deviation 48.0 H (36.4-46.3) fL RDW Coeff of Mckinley 13.8 (11.5-14.5) % Plt Count 324 (130-400) K/uL MPV 9.0 (7.4-10.4) fL Immature Gran % (Auto) 0.3 % Neut % (Auto) 51.3 % Lymph % (Auto) 30.8 % [place] % (Auto) 8.2 % Eos % (Auto) 7.9 % Baso % (Auto) 1.5 % Neut # (Auto) 3.46 (1.4-6.5) K/uL Lymph # (Auto) 2.07 (1.2-3.4) K/uL [place] # (Auto) 0.55 (0.11-0.59) K/uL Eos # (Auto) 0.53 H (0-0.5) K/uL Baso # (Auto) 0.10 (0-0.2) K/uL Immature Gran # (Auto) 0.02 (0.00-0.02) K/uL Sodium 136 (136-145) mmol/L Potassium 4.2 D (3.5-5.1) mmol/L Chloride 107 (98-107) mmol/L Carbon Dioxide 25 (21-32) mmol/L Anion Gap 4.0 (3-11) BUN 6 L (7-18) mg/dl Creatinine 0.93 (0.6-1.4) mg/dl Est Cr Clr Drug Dosing 71.4 ml/min Est GFR ( Amer) 109.0 ml/min Est GFR (Non-Af Amer) 94.1 ml/min BUN/Creatinine Ratio 6.8 L (10-20) Glucose 81 (70-99) mg/dl Calcium 8.5 (8.5-10.1) mg/dl Total Bilirubin 0.4 D (0.2-1) mg/dl AST 10 L (15-37) U/L ALT 12 (12-78) Alkaline Phosphatase 84 (45-117) U/L Total Protein 5.8 L (6.4-8.2) gm/dl Albumin 2.5 L (3.4-5.0) gm/dl Globulin 3.3 (2.5-4.0) gm/dl Albumin/Globulin Ratio 0.8 L (0.9-2) IgG Pending IgG1 Pending IgG2 Pending IgG3 Pending IgG4 Pending MARSHA Screen Pending (1) Acute pancreatitis Acute pancreatitis complication: unspecified Pancreatitis type: biliary Qualified Code(s): K85.10 - Biliary acute pancreatitis without necrosis or infection
[2021-09-26] MEDS: MoRPHine SULFATE 4 MG/ML 1 ML CARP\\VIAL IV PRN (11:06)
[2021-09-26] MEDS: FAMOTIDINE 40 MG TABLET PO SCH (20:03)
[2021-09-27] MEDS: oxyCODONE HCL IR 5 MG TAB (IMMEDIATE RELEASE) PO PRN (03:22)
[2021-09-27 06:09] LABS: Hematocrit (blood only) 33.5 % (42-52); Hemoglobin 11.3 g/dL (14.0-18.0); Mean Corpuscular Hemoglobin 31.8 pg (25-34); Mean Corpuscular Hgb Conc 33.7 g/dL (32-36); Mean Corpuscular Volume 94.4 fL (80-100); Mean Platelet Volume 9.2 fL (7.4-10.4); Platelet Count 317 K/uL (130-400); RDW Coefficient of Variation 13.5 % (11.5-14.5); RDW Standard Deviation 46.9 fL (36.4-46.3); Red Blood Count 3.55 M/uL (4.7-6.1); White Blood Count 5.63 K/uL (4.8-10.8)
[2021-09-27 06:42] LABS: Calcium 8.6 mg/dl (8.5-10.1); Creatinine Clr Calc Pharmacy 67.7 ml/min; Est GFR (African American) 102.3 ml/min; Est GFR (Non-African American) 88.3 ml/min; Potassium 4.2 mmol/L (3.5-5.1)
[2021-09-27] MEDS: ASPIRIN 81 MG ECTAB PO SCH (08:15)
[2021-09-27] MEDS: SERTRALINE HCL 50 MG TABLET PO SCH (08:15)
[2021-09-27] MEDS: METOPROLOL SUCC 25MG EXT REL TAB PO SCH (08:15)
[2021-09-27] MEDS: EZETIMIBE 10 MG TABLET PO SCH (08:15)
[2021-09-27] MEDS: PANTOprazole 40 MG TAB PO SCH (08:15)
[2021-09-27] MEDS: SUCRALFATE 1 GM TAB PO SCH (08:15)
[2021-09-27] MEDS: TICAGRELOR 90 MG TAB PO SCH (08:15)
[2021-09-27] MEDS: ROSUVASTATIN CALCIUM 20 MG TAB PO SCH (08:15)
[2021-09-27] MEDS: ISOSORBIDE MONO EXTENDED REL 60 MG TABCR PO SCH (08:15)
[2021-09-27] MEDS: ENOXAPARIN INJ 40 MG/0.4 ML SYR SQ SCH (08:15)
--- NOTE | 2021-09-27 12:21 | Hospitalist Progress Note ---
Date of Service September 27, 2021 Assessment & Plan (1) Abdominal pain, periumbilical: Plan: Recurrent pancreatitis H/O gallstone pancreatitis S/P cholecystectomy, ERCP Last ERCP on 09/23 with biliary stent placement, removal of choledocholithiasis H/O chronic intermittent abdominal pain Received IV fluids Pain control IgG4 and MARSHA to rule out autoimmune pancreatitis pending Appreciate GI input Advance diet as tolerated Advised to follow-up with GI upon discharge Gastritis Continue Carafate H/O CAD sp stent (12/2020) Continue home meds HTN Continue Metoprolol Hyperlipidemia on statin Casanova's esophagus Continue PPI Hypokalemia Replace as needed Anxiety/mood disorder 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 Continue 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 DVT Px: Lovenox SQ Code Status Full Code Admission and Anticipated Discharge Date Admission Date: September 27, 2021 Subjective Patient is seen and examined at bedside Abdominal pain resolved Denies any nausea, vomiting, chest pain, dyspnea Tolerating liquid diet Review of Systems Review of Systems: All systems reviewed & are unremarkable except as noted in Subjective Physical Exam Physical Exam: Physical Exam: Vitals signs as noted above General Appearance:Thin, no apparent distress Head: normocephalic, Atraumatic Eyes: normal inspection, EOMI Neck: supple, Trachea midline Respiratory/Chest: Normal breath sounds, CTA, No accessory muscle use Cardiovascular: S1, S2, No murmur Abdomen/GI:Soft, mild tender, Bowel sounds present Extremities/Musculoskeletal:normal inspection, no edema Neurologic/Psych:AAOX3, grossly no focal neurological deficits Skin: normal color, warm Results & Data Results & Data ([facility]) Vital Signs (Past 12 Hours) Vital Signs Temp Pulse Resp BP BP Pulse Ox 09/27/21 11:42 36.7 C 86 16 126/83 110/64 97 09/27/21 07:37 36.7 C 86 16 126/83 97 Laboratory Results Short CBC 09/27/21 Range/Units 05:49 WBC 5.63 (4.8-10.8) K/uL Hgb 11.3 L (14.0-18.0) g/dL Hct 33.5 L (42-52) % Plt Count 317 (130-400) K/uL BMP 09/27/21 05:49 Sodium 139 Potassium 4.2 Chloride 107 Carbon Dioxide 25 BUN 7 Creatinine 0.98 Glucose 88 Calcium 8.6
--- NOTE | 2021-09-27 12:25 | Discharge Summary ---
Date of Service September 27, 2021 Admission HPI Per Admitting Provider History obtained from patient and records. Medical history significant for CAD sp stent, HTN, hyperlipidemia, recurrent pancreatitis status post cholecystectomy/ ERCP, Casanova's esophagus, anxiety/mood disorder, ongoing tobacco abuse. Last confinement September 22-2020 for recurrent pancreatitis secondary to choledocholithiasis. Patient underwent ERCP during last confinement. Patient was comfortable on discharge yesterday. Patient noted recurrence of achy periumbilical abdominal pain with nausea symptoms at home yesterday. Has not had a lot to eat as per patient. No fever, no chills, no chest pain, no S OB. Denies recent EtOH intake. MEDICAL HISTORY: As above. OPERATIONS: vasectomy, cholecystectomy FAMILY HISTORY:Hypertension, stroke; no pancreatitis PERSONAL AND SOCIAL HISTORY: One-half pack daily. No chronic intake of alcoholic beverages. 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 Admission Exam Per Admitting Provider Physical Exam Physical Exam: GENERAL: Slightly uncomfortable, no respiratory distress SKIN: Normal color, warm HEENT: Bespectacled, Freer palpebral conjunctivae, no ptosis, dry buccal mucosa NECK : Supple, no tenderness CHEST : CTA, no tenderness HEART : RRR, no obvious murmurs ABDOMEN: some distention, central abdominal tenderness EXTREMITIES : No LE swelling/tenderness, no other conspicuous deformities noted NEUROLOGIC : Coherent, no facial asymmetry, no other gross focality Principal Diagnosis Recurrent pancreatitis Discharge Data Allergies Allergy/AdvReac Type Severity Reaction Status Date / Time No Known Allergies Allergy Verified 08/20/21 02:37 Consultations 09/25/21 02:49 ED Decision to Admit Stat 09/25/21 06:23 Consult Gastroenterology Routine Hospital Course (1) Abdominal pain, periumbilical: Recurrent pancreatitis H/O gallstone pancreatitis S/P cholecystectomy, ERCP Last ERCP on 09/23 with biliary stent placement, removal of choledocholithiasis H/O chronic intermittent abdominal pain Received IV fluids Pain control IgG4 and MARSHA to rule out autoimmune pancreatitis pending Appreciate GI input Advance diet as tolerated Advised to follow-up with GI upon discharge Gastritis Continue Carafate H/O CAD sp stent (12/2020) Continue home meds HTN Continue Metoprolol Hyperlipidemia on statin Casanova's esophagus Continue PPI Hypokalemia Replace as needed 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/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 DVT Px: Lovenox SQ Code Status Full Code Total Time Total Time Spent Total Time Spent (In Minutes): 39 minutes Discharge Plan Discharge Items Patient Disposition: Home - Self-Care Reason For Visit: ABDOMINAL PAIN Discharge Diagnosis: Recurrent pancreatitis Activity: Per Instructions section Exercise/Sports: Gradually increase as tolerated Non-emergency contact: Primary Care Provider and Ocular Care Technologist Call non-emergency contact if: you have any medication questions, your symptoms worsen, your pain is not controlled, your pain is concerning for you and you have a fever Follow-up/Referrals: Wade Bragg MD [Primary Care Provider] - (Date & Time 09/29/2021 11:20 AM Provider Deep Griffin MD [facility] ) Diet: Heart Healthy and Low Fat Addtl Attending Provider Instructions: Follow-up with your primary care physician on 09/29/2021 11:20 AM as sceduled Follow-up with your physician assistant surgery ad advised --Your immunological work-up is pending at the time of discharge. Follow-up with your physician for results. Seek immediate medical attention if your symptoms reoccur or worsen Please take all medications as instructed on discharge list below. Please call if you have any questions or problems. You can reach a [facility] [address] hospitalist on duty at [facility] 24 hours a day by calling [phone] Pending Studies at Discharge: Yes Studies:: IgG4 subclasses and MARSHA Stand-Alone Forms: My [facility], Smoking Cessation Medications and DC Order Prescriptions: Continued aspirin 81 mg tablet,delayed release (DR/EC) 81 mg PO QAM RF: 0 sertraline [Zoloft] 50 mg tablet 50 mg PO QAM RF: 0 Brilinta 90 mg Tablet 90 mg PO BID 30 Days Qty: 60 RF: 3 nitroglycerin [Nitrostat] 0.4 mg tablet, sublingual 0.4 mg Sublingual UD PRN (Reason: Chest Pain) RF: 0 famotidine 40 mg tablet 40 mg PO HS RF: 0 dicyclomine 10 mg capsule 10 mg PO BID PRN (Reason: Abdominal Pain) RF: 0 ezetimibe 10 mg tablet 10 mg PO QAM RF: 0 rosuvastatin 40 mg tablet 40 mg PO QAM RF: 0 magnesium oxide 400 mg magnesium Tablet 400 mg PO QAM RF: 0 metoprolol succinate 25 mg tablet extended release 24 hr 25 mg PO QAM RF: 0 isosorbide mononitrate 60 mg tablet extended release 24 hr 60 mg PO DAILY RF: 0 pantoprazole 40 mg tablet,delayed release (DR/EC) 40 mg PO QAM RF: 0 sucralfate 1 gram Tablet 1 g PO BID Qty: 180 RF: 0 Discharge Orders: Discharge Order (Routine); Ordered 09/27/21 Ordered By: Reji Lucas Admission Data Admit Date/Time: 09/27/21 07:51 Attending Provider: Reji Lucas Admit Provider: Fahad Anne Primary Care Provider: Wade Bragg Other Providers: Fahad Anne ; Matheus Luna ; Shari Wilson ; Kiran Dimas ; Krystle Matamoros ; Nasir Bey ; Kike Gross ; Pawel Carver ; Abdiel Dyer ; Neda Sweeney ; Sunni Alves ; Taylor Boyer ; Francesca Walters ; Marianela Epstein ; Eva Ulloa
[2021-09-28 07:31] LABS: Anti Nuclear Antibody Screen NEGATIVE (NEGATIVE); Immunoglobulin G 665 mg/dL (600-1640); Immunoglobulin G1 403 mg/dL (382-929); Immunoglobulin G2 165 mg/dL (241-700); Immunoglobulin G3 43 mg/dL (22-178); Immunoglobulin G4 30.5 mg/dL (4.0-86.0)
== END 2021-09-27 16:16 | disposition home or self-care (01) ==
LOC: ED 01:18 → EDINP 01:18 → OBSVTOIN 04:12 → INTOOBSV 04:12 → 3E 06:37
DX: Z79.82 Long term (current) use of aspirin; E78.5 Hyperlipidemia, unspecified; I25.10 Atherosclerotic heart disease of native coronary artery without angina pectoris; K22.70 Barrett's esophagus without dysplasia; F41.1 Generalized anxiety disorder; K29.70 Gastritis, unspecified, without bleeding; Z79.899 Other long term (current) drug therapy; K86.1 Other chronic pancreatitis; F34.9 Persistent mood [affective] disorder, unspecified; E87.6 Hypokalemia; I10 Essential (primary) hypertension; F17.210 Nicotine dependence, cigarettes, uncomplicated; Z95.9 Presence of cardiac and vascular implant and graft, unspecified; Z20.822 Contact with and (suspected) exposure to COVID-19

== ENCOUNTER 2022-07-27 11:52 | Observation (INO) ==
[2022-07-27] MEDS: SODIUM CHLORIDE 0.9% 500 ML IV STA ×2 (12:00→12:27)
[2022-07-27 12:20] LABS: Basophils # (auto) 0.07 K/uL (0-0.2); Basophils % (auto) 0.6 %; Eosinophils # (auto) 0.03 K/uL (0-0.50); Eosinophils % (auto) 0.2 %; Hematocrit (blood only) 43.3 % (40.1-51.0); Hemoglobin 15.7 g/dl (14.0-18.0); Immature Granulocytes # (auto) 0.05 K/uL (0.00-0.02); Immature Granulocytes % (auto) 0.4 %; Lymphocytes % (auto) 13.4 %; Mean Corpuscular Hgb Conc 36.3 g/dL (32.0-36.0); Mean Corpuscular Volume 93.7 fL (80.0-100.0); Mean Platelet Volume 8.7 fL (9.4-12.4); Monocytes # (auto) 0.39 K/uL (0.24-0.82); Monocytes % (auto) 3.1 %; Neutrophils # (auto) 10.44 K/uL (1.4-6.5); Neutrophils % (auto) 82.3 %; Platelet Count 274 K/uL (130-400); RDW Standard Deviation 44.9 fL (36.4-46.3); Red Blood Count 4.62 M/uL (4.63-6.08); White Blood Count 12.68 K/ul (4.8-10.8)
[2022-07-27] MEDS ORDERED: NITROGLYCERIN 2% OINTMENT 30GM TUBE EXT ONE (12:30)
--- NOTE | 2022-07-27 12:34 | XRay Report ---
XR chest 1V portable HISTORY: 51 years-old Male Chest Pain acute chest pain COMPARISON: Chest radiograph 12/31/2020 TECHNIQUE: Portable AP view of the chest FINDINGS: Cardiomediastinal and hilar silhouettes are within normal limits. There is no pneumothorax, pleural e ffusion, airspace consolidation or overt pulmonary edema. Mild right hemidiaphragmatic elevation. Bon es of the chest appear grossly intact. IMPRESSION: No acute process. ACT 112: Negative or not required by law. The above report was generated using voice recognition software. It may contain grammatical, syntax o r spelling errors. Electronically signed by: Stef Jones M.D. 07/27/2022 12:33 PM
--- NOTE | 2022-07-27 12:41 | Emergency Department Note ---
Impression & Plan Pancreatitis, Chest pain ED Provider Note NAME: SAMUEL RIDER AGE: 51 SEX: M : 1970 ARRIVES VIA: Ambulance INFORMANT: Patient, ED PROVIDER(S): Josh Carpio MD Chief Complaint: Chest pain HPI: Patient presents due to concern for chest pain that he stated was centralized began around 10 AM this morning while he was resting. Patient states it was nonradiating. Patient did relate that he went to work and had some upset stomach went home and then afterwards he developed the chest pain. Patient denies any current nausea or diaphoresis but states the chest pain does feel similar to when he has had a prior [place]. The patient does have a prior history of MIs and stents and does follow with [facility] cardiology. Patient states at its peak it was 7 out of 10 pressure. Is currently 2 out of 10. The patient did receive 3 nitro and full dose aspirin. Patient states he is compliant with his medications. No history of DVT or PE. Patient does have history of pancreatitis but states this does not feel similar and denies any current abdominal pain. Patient does smoke. No alcohol or drug use. Patient denies any leg swelling or calf pain history DVT or PE. I did receive a medical command call about the patient who was feeling anxious and did receive 0.5 mg sublingual Ativan. Patient's EKG that was transmitted at the time of the med command call does not appear grossly dissimilar from [facility] EKG completed October 19, 2021. ROS: See HPI for pertinent positives and negatives. A total of 10 systems were reviewed and otherwise negative. Past medical history: See below Surgical history: See below Social history: See below Physical Exam: GENERAL: NAD, wearing a mask, non-toxic. EYE EXAM: Normal conjunctiva. PERRL, no anisocoria and EOM's grossly intact w/o pain. NECK: Supple, no nuchal rigidity, no adenopathy, non-tender. No signs of meningismus. FROM of the neck with good chin to chest and neck extension. No stridor. LUNGS: Clear to auscultation. Normal chest wall mechanics. HEART: NSR, no MRG. ABDOMEN: Abdomen soft, non-tender, normo-active bowel sounds, no masses, no r ebound or guarding. BACK: No CVA TTP. SKIN: No rashes and no bruising. UPPER EXTREMITIES: Upper extremities are grossly normal. LOWER EXTREMITIES: Grossly normal, no edema. Negative Homans' sign bilaterally. NEURO EXAM: A&O x3, cranial nerves II-XII grossly intact, normal speech, moves all 4 extremities. Differential diagnoses: Cardiac ischemia, aortic dissection, pulmonary embolism, pneumothorax, pneumonia, pericarditis, myocarditis, esophageal rupture, GERD, cholecystitis, pancreatitis, musculoskeletal, as well as other pathologies. Course: Patient was seen and evaluated the bedside. Full history physical exam was performed. EKG interpreted by me Prehospital EKG interpreted by me Normal sinus rhythm, rate of 81, normal intervals, normal axis, no obvious ST elevations, possible T wave version in aVL but not in 1, no significant change for comparison EKG October 19, 2021. T wave version in aVL may be new from comparison. EKG interpreted by me in hospital Normal sinus rhythm, rate of 62, normal intervals, normal axis, no ST changes or T WI. No significant changes for comparison EKG October 19, 2021. Imaging Studies: See Below Cardiac monitoring: An order was placed for continuous cardiac monitoring. The monitor shows a rate of 82 with sinus rhythm. MDM: Patient presented for chest pain. Blood work is obtained along with an EKG troponin chest x-ray. Patient did have some slight worsening of chest pain and did return worsening to a 5 out of 10 and was ordered Nitropaste. Patient is stable vitals. Patient's EKG does not appear grossly changed from comparison. Patient's blood work shows a white count of 12 with a normal H&H and platelet count. Patient's kidney function was unremarkable with mild hyponatremia 134. LFTs are unremarkable but elevated lipase 116. COVID-negative. Troponin is not elevated. I did call charge to asked that the Nitropaste be removed and the patient was ordered some morphine Do believe the patient is having acute pancreatitis. I did discuss this with the on-call hospitalist Екатерина Caldwell PA-C the patient was admitted by Dr. Burrell. I did state the patient would still need trending of his cardiac enzymes given that he felt atypical and did have improvement with the nitro but believe that this is the more likely cause as the patient has no obvious EKG changes initial troponin is negative. Past Med/Surg History Medical History Acute pancreatitis Barretts esophagus CAD (coronary artery disease) 2018-RCA stent x 2 07/2020-STEMI, s/p PCI to left circumflex with 2 MELLY. Post procedure compli cated by V. fib arrest requiring defibrillation. 12/2020-NSTEMI s/p 3 Xience MELLY to the distal aspect of prior stent of the left posterior lateral branch vessel COVID-29 Oct 2021 Depression RADHA (generalized anxiety disorder) GERD (gastroesophageal reflux disease) Grade II diastolic dysfunction HLD (hyperlipidemia) Mobitz type 2 second degree atrioventricular block Splenic infarct Tobacco abuse Surgical History History of endoscopic retrograde cholangiopancreatography x2 (08/31, 09/30) History of vasectomy Hx laparoscopic cholecystectomy (08/22/21) Laparoscopic Cholecystectomy Dr. Davidson 08/22/2021 Family History Other Diabetes Stroke Social History Smoking Status: Current every day smoker Tobacco Type: Cigarettes Years Smoked: 31; Cigarettes Per Day: 2; Second Hand Exposure: No; Do You Dip or Chew Tobacco: No; Tobacco Cessation Education Requested by Patient: No Hx Alcohol Use: No Hx Substance Use: No Preferred Language: Macedonian Communication Ability: Effective Registered Nurse Maternal Child Required: No Beliefs That Will Affect Care: None marital status: Single Current Living Situation: Alone current occupational status: employed Other Information That Helps Us Care for You: No Feels Safe at Home: Yes Safety Concerns: Feels Safe At This Time Assistive Devices: None Allergies Allergies Allergy/AdvReac Type Severity Reaction Status Date / Time No Known Allergies Allergy Verified 10/19/21 12:41 Home Meds Home Medications Medication Instructions Recorded Confirmed aspirin 81 mg tablet,delayed 81 mg PO QAM 10/06/18 07/27/22 release sertraline 50 mg tablet (Zoloft) 50 mg PO QAM 10/06/18 07/27/22 nitroglycerin 0.4 mg sublingual 0.4 mg sublingual UD PRN Chest Pain 10/07/18 07/27/22 tablet (Nitrostat) dicyclomine 10 mg capsule 10 mg PO BID PRN Abdominal Pain 12/06/20 07/27/22 ezetimibe 10 mg tablet 10 mg PO QAM 12/06/20 07/27/22 famotidine 40 mg tablet 40 mg PO HS PRN Acid Reflux 12/06/20 07/27/22 isosorbide mononitrate 60 mg 60 mg PO DAILY 12/06/20 07/27/22 tablet,extended release 24 hr magnesium oxide 400 mg PO QAM 12/06/20 07/27/22 pantoprazole 40 mg tablet,delayed 40 mg PO QAM PRN Acid Reflux 08/20/21 07/27/22 release metoprolol succinate 25 mg 25 mg PO DAILY 07/27/22 07/27/22 tablet,extended release 24 hr rosuvastatin 40 mg tablet 40 mg PO DAILY 07/27/22 07/27/22 Previous Rx's Medication Instructions Recorded ticagrelor 90 mg tablet (Brilinta) 90 mg PO BID 30 days #60 tabs 08/11/20 Results & Data (ED) Vital Signs Vital Signs - 24 hr 07/27/22 12:08 07/27/22 12:13 07/27/22 12:40 Temperature 37 C Temperature Source Oral Pulse Rate 64 Pulse Rate from SpO2 Sensor Respiratory Rate 24 Blood Pressure 125/79 Blood Pressure Mean 94 Pulse Oximetry 96 96 Oxygen Delivery Method Room Air Room Air Sepsis Recent Fever Within 48 Hours No Sepsis New/Unexplained Change in Mental Status No Sepsis Action Taken by Nursing No Action Required 07/27/22 12:01 07/27/22 12:02 07/27/22 12:09 Temperature Temperature Source Pulse Rate 78 77 Pulse Rate from SpO2 Sensor 77 76 Respiratory Rate 21 18 Blood Pressure 125/79 Blood Pressure Mean 94 Pulse Oximetry 97 96 Oxygen Delivery Method Sepsis Recent Fever Within 48 Hours Sepsis New/Unexplained Change in Mental Status Sepsis Action Taken by Nursing 07/27/22 12:09 07/27/22 12:30 07/27/22 12:30 Temperature Temperature Source Pulse Rate 57 L Pulse Rate from SpO2 Sensor 57 L Respiratory Rate 26 H Blood Pressure 124/82 133/87 Blood Pressure Mean 96 102 Pulse Oximetry 97 Oxygen Delivery Method Sepsis Recent Fever Within 48 Hours Sepsis New/Unexplained Change in Mental Status Sepsis Action Taken by Nursing 07/27/22 13:00 07/27/22 13:00 Temperature Temperature Source Pulse Rate 57 L Pulse Rate from SpO2 Sensor 58 L Respiratory Rate 27 H Blood Pressure 121/86 Blood Pressure Mean 97 Pulse Oximetry 98 Oxygen Delivery Method Sepsis Recent Fever Within 48 Hours Sepsis New/Unexplained Change in Mental Status Sepsis Action Taken by Usp Medications Current Medication List: was personally reviewed by me Laboratory Data Attestation: I reviewed the patient's lab results. Result diagrams: 07/27/22 10:40 07/27/22 10:40 Lab Results 07/27/22 07/27/22 07/27/22 Range/Units 10:40 10:40 10:40 WBC 12.68 H (4.8-10.8) K/ul RBC 4.62 L (4.63-6.08) M/uL Hgb 15.7 (14.0-18.0) g/dl Hct 43.3 (40.1-51.0) % MCV 93.7 (80.0-100.0) fL MCH 34.0 (25.0-34.0) pg MCHC 36.3 H (32.0-36.0) g/dL RDW Std Deviation 44.9 (36.4-46.3) fL RDW Coeff of Mckinley 13.0 (11.5-14.5) % Plt Count 274 (130-400) K/uL MPV 8.7 L (9.4-12.4) fL Immature Gran % (Auto) 0.4 % Neut % (Auto) 82.3 % Lymph % (Auto) 13.4 % Emery % (Auto) 3.1 % Eos % (Auto) 0.2 % Baso % (Auto) 0.6 % Neut # (Auto) 10.44 H (1.4-6.5) K/uL Lymph # (Auto) 1.70 (1.2-3.4) K/uL Emery # (Auto) 0.39 (0.24-0.82) K/uL Eos # (Auto) 0.03 (0-0.50) K/uL Baso # (Auto) 0.07 (0-0.2) K/uL Immature Gran # (Auto) 0.05 H (0.00-0.02) K/uL PT 10.7 (9.0-12.0) Seconds INR 1.0 (0.9-1.1) APTT 28.5 (21.0-31.0) Seconds PTT Ratio 1.0 Sodium 134 L (136-145) mmol/L Potassium 4.2 (3.5-5.1) mmol/L Chloride 101 (98-107) mmol/L Carbon Dioxide 23 (21-32) mmol/L Anion Gap 10 (3-11) BUN 15 (6-23) mg/dl Creatinine 1.23 (0.6-1.4) mg/dl Est Cr Clr Drug Dosing 59.9 ml/min Est GFR ( Amer) 77.7 ml/min Est GFR (Non-Af Amer) 67.1 ml/min BUN/Creatinine Ratio 12.2 (10-20) Glucose 119 H (70-99(Fasting)) mg/dl Calcium 9.8 (8.5-10.1) mg/dl Total Bilirubin 0.7 (0.2-1.0) mg/dl AST 18 (13-39) U/L ALT 15 (7-52) U/L Alkaline Phosphatase 66 (34-104) U/L Troponin I High Sens 8.3 (0-20) pg/ml Total Protein 7.5 (6.0-8.3) gm/dl Albumin 4.5 (3.4-5.0) gm/dl Globulin 3.0 (2.5-4.0) gm/dl Albumin/Globulin Ratio 1.5 (0.9-2) Lipase 116 H (11-82) U/L SARS-CoV-2, RNA, NAAT (NEGATIVE) 07/27/22 Range/Units 12:05 WBC (4.8-10.8) K/ul RBC (4.63-6.08) M/uL Hgb (14.0-18.0) g/dl Hct (40.1-51.0) % MCV (80.0-100.0) fL MCH (25.0-34.0) pg MCHC (32.0-36.0) g/dL RDW Std Deviation (36.4-46.3) fL RDW Coeff of Mckinley (11.5-14.5) % Plt Count (130-400) K/uL MPV (9.4-12.4) fL Immature Gran % (Auto) % Neut % (Auto) % Lymph % (Auto) % Emery % (Auto) % Eos % (Auto) % Baso % (Auto) % Neut # (Auto) (1.4-6.5) K/uL Lymph # (Auto) (1.2-3.4) K/uL Emery # (Auto) (0.24-0.82) K/uL Eos # (Auto) (0-0.50) K/uL Baso # (Auto) (0-0.2) K/uL Immature Gran # (Auto) (0.00-0.02) K/uL PT (9.0-12.0) Seconds INR (0.9-1.1) APTT (21.0-31.0) Seconds PTT Ratio Sodium (136-145) mmol/L Potassium (3.5-5.1) mmol/L Chloride (98-107) mmol/L Carbon Dioxide (21-32) mmol/L Anion Gap (3-11) BUN (6-23) mg/dl Creatinine (0.6-1.4) mg/dl Est Cr Clr Drug Dosing ml/min Est GFR ( Amer) ml/min Est GFR (Non-Af Amer) ml/min BUN/Creatinine Ratio (10-20) Glucose (70-99(Fasting)) mg/dl Calcium (8.5-10.1) mg/dl Total Bilirubin (0.2-1.0) mg/dl AST (13-39) U/L ALT (7-52) U/L Alkaline Phosphatase (34-104) U/L Troponin I High Sens (0-20) pg/ml Total Protein (6.0-8.3) gm/dl Albumin (3.4-5.0) gm/dl Globulin (2.5-4.0) gm/dl Albumin/Globulin Ratio (0.9-2) Lipase (11-82) U/L SARS-CoV-2, RNA, NAAT NEGATIVE (NEGATIVE) Administered Medications Pantoprazole Sodium 40 mg/ (Syringe) 10 mls @ 5 mls/min IV BID ALYCIA Stop: 08/26/22 15:49 Last Admin: 07/27/22 17:10 Dose: 5 mls/min Documented By: CA Sodium Chloride (Nss 1000ml) 1,000 mls @ 65 mls/hr IV .[id number] ALYCIA Stop: 07/28/22 23:31 Last Admin: 07/27/22 17:10 Dose: 65 mls/hr Documented By: MARIE Oxycodone HCl (Oxycodone Hcl Ir 5 Mg Tab (Immediate Release)) 5 mg PO Q12 PRN PRN Reason: Pain Stop: 08/10/22 15:45 Last Admin: 07/27/22 16:04 Dose: 5 mg Documented By: MARIE Discontinued Medications Sodium Chloride (Nss) 500 mls @ 999 mls/hr IV .Q31M STA Stop: 07/27/22 12:29 Last Infusion: 07/27/22 12:57 Dose: 0 mls/hr Documented By: Admin: 07/27/22 12:27 Dose: 999 mls/hr Documented By: DANIEL Morphine Sulfate (Morphine Sulfate 4 Mg/Ml 1 Ml Carp\Vial) 4 mg IV NOW STA Stop: 07/27/22 12:55 Last Admin: 07/27/22 16:06 Dose: Not Given Documented By: MARIE Nitroglycerin (Nitroglycerin 2% Ointment 30gm Tube) 1 inch EXT NOW ONE Stop: 07/27/22 12:31 Last Admin: 07/27/22 12:39 Dose: 1 inch Documented By: DOROTA Imaging Data Radiologist's Impression: Chest X-Ray 07/27/22 11:59 XR chest 1V portable HISTORY: 51 years-old Male Chest Pain acute chest pain COMPARISON: Chest radiograph 12/31/2020 TECHNIQUE: Portable AP view of the chest FINDINGS: Cardiomediastinal and hilar silhouettes are within normal limits. There is no pneumothorax, pleural effusion, airspace consolidation or overt pulmonary edema. Mild right hemidiaphragmatic elevation. Bones of the chest appear grossly intact. IMPRESSION: No acute process. ACT 112: Negative or not required by law. The above report was generated using voice recognition software. It may contain grammatical, syntax or spelling errors. Electronically signed by: Stef Jones M.D. 07/27/2022 12:33 PM Discharge Plan Visit Data Chief Complaint: Chest Pain ED Provider: Josh Carpio Discharge Problem: Pancreatitis, Chest pain Patient Disposition: Admitted As Inpatient Discharge Instructions Interventions: ED Discharge Assessment Last Done: 07/27/22 15:45
[2022-07-27 12:42] LABS: Albumin Globulin Ratio 1.5 (0.9-2); Albumin Level 4.5 gm/dl (3.4-5.0); BUN Creatinine Ratio 12.2 (10-20); Bilirubin,Total 0.7 mg/dl (0.2-1.0); Calcium 9.8 mg/dl (8.5-10.1); Creatinine Clr Calc Pharmacy 59.9 ml/min; Est GFR (African American) 77.7 ml/min; Est GFR (Non-African American) 67.1 ml/min; Partial Thromboplastin Time 28.5 Seconds (21.0-31.0); Potassium 4.2 mmol/L (3.5-5.1); Prothrombin Time 10.7 Seconds (9.0-12.0); Total Protein 7.5 gm/dl (6.0-8.3)
[2022-07-27 12:47] LABS: Troponin I High Sensitivity 8.3 pg/ml (0-20)
[2022-07-27] MEDS ORDERED: MoRPHine SULFATE 4 MG/ML 1 ML CARP\\VIAL IV STA (12:54)
--- NOTE | 2022-07-27 13:18 | History & Physical Report ---
Date of Service July 27, 2022 Assessment & Plan (1) Chest pain: Plan: Currently improved s/p nitro x 3, nitro paste, initial troponin negative, no significant EKG changes upon initial presentation (2) Abdominal pain, periumbilical: (3) Acute pancreatitis: (4) CAD (coronary artery disease): (5) RADHA (generalized anxiety disorder): (6) HLD (hyperlipidemia): (7) GERD (gastroesophageal reflux disease): (8) Depression: Plan Unclear etiology for patient's current symptoms. The chest pain is similar to prior cardiac events per pt but initial troponin and EKG are negative, pain improved with nitro. Pt also having abdominal pain, nausea, and chills with a mildly elevated lipase on labs in the ED. Symptoms similar to prior episodes of pancreatitis. - Admit to PCU for further observation and work-up - Trend troponin, repeat EKG in AM and with any recurrent chest pain - Consult cardiology to determine need for additional workup in view of pt's complex cardiac history - NPO for now due to possible pancreatitis - Consult GI for additional recommendations - Continue home medications as appropriate - AM labs including lipid profile, repeat lipase Pt seen and reviewed with collaborating physician, Dr. Burrell. Plan of care discussed and as outlined above. Code Status: Full code DVT Prophylaxis: Bartolome Caldwell PA-C History of Present Illness Chief Complaint: Chest Pain Primary Care Provider: Wade Bragg MD This is a 51 y/o male with a PMH of CAD w/ hx prior VT x 2, PCI with stents, prior acute pancreatitis s/p ERCP with stent placement, GERD, dyslipidemia, anxiety, and Casanova esophagus who presents to the ED today with chest pain. Pt has a complex cardiac history with last visit to cardiology in February 2021. Most recent PCI to OM1 in December 2020 when pt presented with syncope and was found to have transient Mobitz 2 heart block. In Aug 2021, pt was admitted with cholecystitis and gallstone pancreatitis, underwent lap rosas and ERCP with biliary stent placement on 08/22/21. Readmitted in Sep 2021 with acute pancreatitis and underwent EGD/ERCP with stent removal and balloon extraction of residual choledocholithiasis. Brief readmission later in Sep due to recurrent pain. Overall, pt did well until current symptoms other than COVID in Oct 2021. Pt reports that he felt fine last evening. Woke up for work this morning and noticed that his stomach was upset with nausea and mild pain. He tried to go to work but symptoms seemed to be worsening in severity, then had an episode of diarrhea so he decided to go home and nap. Around 10 am, he developed substernal chest discomfort that he describes as a pressure, feels similar to prior MIs. He tried to drive himself to the ED but pain worsened and he felt lightheaded so he stopped at the EMS station. Given aspirin 324 mg and nitro x 3 with improvement of chest pain. However, his GI symptoms have remained. In the ED, he had recurrence of the chest discomfort so given nitro paste with subsequent improvement. His main complaint at present is the abdominal pain and nausea. He had some associated chills but no vomiting or documented fever. He denies upper respiratory symptoms or SOB. No recent exertional chest pain, BARRON, or peripheral edema. He has a CERDA at present that he attributes to the nitro. He does have HAs daily for which he uses ibuprofen 400-600 mg daily. He reports that his acid reflux symptoms have been much improved since rosas/ERCPs so he is only using pantoprazole and famotidine PRN. No recent dark urine, blood in stools. Allergies Allergy/AdvReac Type Severity Reaction Status Date / Time No Known Allergies Allergy Verified 10/19/21 12:41 Home Medications Medication Instructions Recorded Confirmed Type aspirin 81 mg tablet,delayed 81 mg PO QAM 10/06/18 07/27/22 History release sertraline 50 mg tablet (Zoloft) 50 mg PO QAM 10/06/18 07/27/22 History nitroglycerin 0.4 mg sublingual 0.4 mg sublingual UD PRN Chest Pain 10/07/18 07/27/22 History tablet (Nitrostat) ticagrelor 90 mg tablet (Brilinta) 90 mg PO BID 30 days #60 tabs 08/11/20 07/27/22 Rx dicyclomine 10 mg capsule 10 mg PO BID PRN Abdominal Pain 12/06/20 07/27/22 History ezetimibe 10 mg tablet 10 mg PO QAM 12/06/20 07/27/22 History famotidine 40 mg tablet 40 mg PO HS PRN Acid Reflux 12/06/20 07/27/22 History isosorbide mononitrate 60 mg 60 mg PO DAILY 12/06/20 07/27/22 History tablet,extended release 24 hr magnesium oxide 400 mg PO QAM 12/06/20 07/27/22 History pantoprazole 40 mg tablet,delayed 40 mg PO QAM PRN Acid Reflux 08/20/21 07/27/22 History release metoprolol succinate 25 mg 25 mg PO DAILY 07/27/22 07/27/22 History tablet,extended release 24 hr rosuvastatin 40 mg tablet 40 mg PO DAILY 07/27/22 07/27/22 History Past Med/Surg History Medical History (Updated 07/27/22 @ 13:31 by Shu Caldwell PA-C) Acute pancreatitis Barretts esophagus CAD (coronary artery disease) 2017-RCA stent x 2 07/2020-STEMI, s/p PCI to left circumflex with 2 MELLY. Post procedure complicated by V. fib arrest requiring defibrillation. 12/2020-NSTEMI s/p 3 Xience MELLY to the distal aspect of prior stent of the left posterior lateral branch vessel COVID-29 Oct 2021 Depression RADHA (generalized anxiety disorder) GERD (gastroesophageal reflux disease) Grade II diastolic dysfunction HLD (hyperlipidemia) Mobitz type 2 second degree atrioventricular block Splenic infarct Tobacco abuse Surgical History (Updated 07/27/22 @ 13:31 by Shu Caldwell PA-C) History of endoscopic retrograde cholangiopancreatography x2 (08/31, 09/30) History of vasectomy Hx laparoscopic cholecystectomy (08/22/21) Laparoscopic Cholecystectomy Dr. 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 Beliefs That Will Affect Care: None marital status: Single Current Living Situation: Alone current occupational status: employed Other Information That Helps Us Care for You: No Feels Safe at Home: Yes Safety Concerns: Feels Safe At This Time Assistive Devices: None Review of Systems Review of Systems: All systems reviewed & are unremarkable except as noted in HPI & below Constitutional: + chills and + fatigue; no fever Eyes: no diplopia and no worsening vision Ear, Nose, Mouth, Throat: no nasal congestion and no sore throat Respiratory: no cough, no dyspnea and no wheezing Cardiovascular: as per Subjective / HPI; no syncope and no edema Gastrointestinal: as per Subjective / HPI Genitourinary: no dysuria, no urinary frequency or no hematuria Musculoskeletal: no back pain and no neck pain Integumentary: no rash and no yellowing of the skin Neurologic: + dizziness and + headache(s) Psychiatric: + anxiety; no depression Physical Exam Constitutional: no acute distress and no altered mental status Eyes: + anicteric sclerae Neck: trachea midline Respiratory: no respiratory distress and no labored breathing Auscultation: lungs clear to auscultation bilaterally; no rales, no rhonchi and no wheezes Cardiovascular: Rate/Rhythm: regular rate and regular rhythm Vessels: dorsalis pedis pulses present and radial pulses present Extremities: no pedal edema Gastrointestinal (Abdomen): Inspection/Auscultation: normal bowel sounds; abdomen not distended Percussion/Palpation: + abdomen tender (mild diffuse, moderate periumbilical. no guarding or rebound) and abdomen soft Musculoskeletal: Head/Neck/Chest: normocephalic, head atraumatic and neck supple Skin: no jaundice Neurologic: moves all extremities; no focal motor deficits and not confused Psychiatric: A+Ox3, euthymic affect Results & Data Results & Data ([facility]) Vital Signs (Past 12 Hours) Vital Signs Temp Pulse Resp BP Pulse Ox O2 Del Method 07/27/22 12:40 37 C 07/27/22 12:13 64 24 125/79 96 Room Air 07/27/22 12:08 96 Room Air Laboratory Results Laboratory Results - last 24 hr 07/27/22 07/27/22 07/27/22 10:40 10:40 10:40 WBC 12.68 H RBC 4.62 L Hgb 15.7 Hct 43.3 MCV 93.7 MCH 34.0 MCHC 36.3 H RDW Std Deviation 44.9 RDW Coeff of Mckinley 13.0 Plt Count 274 MPV 8.7 L Immature Gran % (Auto) 0.4 Neut % (Auto) 82.3 Lymph % (Auto) 13.4 Wayne % (Auto) 3.1 Eos % (Auto) 0.2 Baso % (Auto) 0.6 Neut # (Auto) 10.44 H Lymph # (Auto) 1.70 Wayne # (Auto) 0.39 Eos # (Auto) 0.03 Baso # (Auto) 0.07 Immature Gran # (Auto) 0.05 H PT 10.7 INR 1.0 APTT 28.5 PTT Ratio 1.0 Sodium 134 L Potassium 4.2 Chloride 101 Carbon Dioxide 23 Anion Gap 10 BUN 15 Creatinine 1.23 Est Cr Clr Drug Dosing 59.9 Est GFR ( Amer) 77.7 Est GFR (Non-Af Amer) 67.1 BUN/Creatinine Ratio 12.2 Glucose 119 H Calcium 9.8 Total Bilirubin 0.7 AST 18 ALT 15 Alkaline Phosphatase 66 Troponin I High Sens 8.3 Total Protein 7.5 Albumin 4.5 Globulin 3.0 Albumin/Globulin Ratio 1.5 Lipase 116 H SARS-CoV-2, RNA, NAAT 07/27/22 12:05 WBC RBC Hgb Hct MCV MCH MCHC RDW Std Deviation RDW Coeff of Mckinley Plt Count MPV Immature Gran % (Auto) Neut % (Auto) Lymph % (Auto) Wayne % (Auto) Eos % (Auto) Baso % (Auto) Neut # (Auto) Lymph # (Auto) Wayne # (Auto) Eos # (Auto) Baso # (Auto) Immature Gran # (Auto) PT INR APTT PTT Ratio Sodium Potassium Chloride Carbon Dioxide Anion Gap BUN Creatinine Est Cr Clr Drug Dosing Est GFR ( Amer) Est GFR (Non-Af Amer) BUN/Creatinine Ratio Glucose Calcium Total Bilirubin AST ALT Alkaline Phosphatase Troponin I High Sens Total Protein Albumin Globulin Albumin/Globulin Ratio Lipase SARS-CoV-2, RNA, NAAT NEGATIVE Diagnostic Findings Chest X-ray 07/27/22 - IMPRESSION: No acute process. Medications Administered Discontinued Medications Sodium Chloride (Nss) 500 mls @ 999 mls/hr IV .Q31M STA Stop: 07/27/22 12:29 Last Infusion: 07/27/22 12:57 Dose: 0 mls/hr Documented By: Admin: 07/27/22 12:27 Dose: 999 mls/hr Documented By: DAJ Nitroglycerin (Nitroglycerin 2% Ointment 30gm Tube) 1 inch EXT NOW ONE Stop: 07/27/22 12:31 Last Admin: 07/27/22 12:39 Dose: 1 inch Documented By: NMS Code Status & VTE Plan VTE Prophylaxis Plan VTE Prophylaxis will be ordered: Yes Supervising Physician Co-Signing Physician Notes 51-year-old gentleman with PMH of CAD with history of multiple MIs and multiple stents, multiple pancreatitis status post ERCP with stent placement and gallbladder removal in a nonalcoholic patient, GERD, HLD, anxiety, Casanova esophagus presented to the ED 07/27 with complaint of both chest and upper belly pain. Patient complained of some upper belly discomfort, sharp in nature, associated with nausea and dizziness that started early in the morning, patient went to work, it became worse, then chest pain started which he described as pressure sensation, feels similar to prior MIs. Patient reports improvement in his chest discomfort with nitro in the ED, however upper belly discomfort has remained. Admitting troponin of 8.3, trend troponin. Admitting lipase of 116, repeat lipase in a.m. Of note, patient reports taking 400 Mg of ibuprofen daily in the morning on empty stomach for his headache. Patient advised to minimize the use of ibuprofen, can use Tylenol instead, advised to take ibuprofen if needed with food only. Trend troponin, EKG in a.m., cardiology consult for chest discomfort. IV fluid, n.p.o. status for possible pancreatitis, Lipase in AM. GI consult. Upon examination: GENERAL: Alert and oriented x3. NAD, on RA. HEENT: No pallor, no icterus. Pupils equal, round and reactive to light. Oral mucosa moist. NECK: No JVD, no neck masses. HEART: S1 and S2 heard. Regular rate and rhythm. No murmur, no gallop. RESPIRATORY SYSTEM: Normal AP diameter. No accessory muscle use. No wheezing, no crackles. ABDOMEN: Soft, bowel sounds present, epigastric/periumbilical tender, no distention. CENTRAL NERVOUS SYSTEM: No facial droop. Speech is clear. Obeys simple commands. Moves extremities. EXTREMITIES: No edema, no erythema seen. I have seen and examined the patient and have discussed the case with the provider above. I agree with the assessment and plan as stated. (1) Chest pain Chest pain type: unspecified Qualified Code(s): R07.9 - Chest pain, unspecified (2) Acute pancreatitis Acute pancreatitis complication: unspecified Pancreatitis type: biliary Qualified Code(s): K85.10 - Biliary acute pancreatitis without necrosis or infection
--- NOTE | 2022-07-27 15:43 | Electrocardiogram Report ---
Test Reason : Blood Pressure : / mmHG Vent. Rate : 062 BPM Atrial Rate : 062 BPM P-R Int : 116 ms QRS Dur : 086 ms QT Int : 378 ms P-R-T Axes : 066 025 038 degrees QTc Int : 383 ms Normal sinus rhythm Normal ECG When compared with ECG of 19-OCT-2021 11:54, No significant change was found Confirmed by Paul Livingston ([id number]) on 07/27/2022 3:43:33 PM Referred By: Confirmed By:Paul Livingston
[2022-07-27] MEDS ORDERED: oxyCODONE HCL IR 5 MG TAB (IMMEDIATE RELEASE) PO PRN (15:46)
[2022-07-27] MEDS ORDERED: ACETAMINOPHEN 500 MG TAB PO PRN ×2 (15:47→16:30)
--- NOTE | 2022-07-27 16:48 | Cardiology Consultation ---
Date of Consultation July 27, 2022 Assessment & Plan (1) Chest pain: (2) Abdominal pain, periumbilical: Plan * Patient with ongoing chief complaint of generalized abdominal discomfort. Amylase only minimally elevated 107 units/L. * Initial EKG and troponin I reassuring. * Patient with history of complex coronary disease, remains on dual antiplatelet therapy with aspirin and clopidogrel since his 2020 circumflex OM intervention. * Continue aspirin, Brilinta, metoprolol. * Ezetimibe on hold at present. * Update lipid panel. * Patient denies alcohol use, still smoking half pack of cigarettes per day. * Agree with GI consultation in addition to cardiology work-up. History of Present Illness Attending Physician: Prieto Burrell MD History of Present Illness Oc Cazares is a 51-year-old male seen in cardiology consultation per the request of Audi Caldwell PA-C of the [facility] for the evaluation of chest discomfort. The patient states that he woke up this morning and had an upset stomach. He attempted to go to work but felt worse so he went home. While he was at home and relaxing, he noted onset of midline chest discomfort at the lower portion of his sternum. This was separate from the abdominal discomfort that is in his lower abdomen (both left and right lower quadrants). The chest discomfort occurred at rest without physical exertion. He was concerned that the chest discomfort was reminiscent of his previous myocardial infarction and therefore he presented for evaluation. EKG performed on arrival to the emergency room revealed sinus bradycardia with no acute repolarization changes. A high-sensitivity troponin performed at 10:40 AM this morning was 8.3 (normal) a second measurement was recently obtained and is pending at this time. At the time my assessment in room 456, patient was asymptomatic from a cardiac perspective. Ongoing mild abdominal discomfort noted, reproduced on palpation. The patient's primary flyer repairer is Dr. Figueroa PAST MEDICAL HISTORY: 1. CAD,NSTEMI , cardiac catheterization 01/01/2022, presented with syncope, transient Mobitz type II second-degree AV block,, successful PCI of the mid circumflex into the left posterior lateral branch with 3 drug-eluting stents, overlapping the previously placed more proximal stent -Residual disease including 40% ostial LAD, 60% mid LAD, 40% distal LAD dominant RCA with previously placed proximal to mid stent widely patent at that time 2. July,, inferior ST segment elevation myocardial infarction, culprit vessel acute distal circumflex occlusion at bifurcation with a large posterolateral ventricular branch, for which patient underwent successful PCI, had V. fib arrest during procedure requiring defibrillation x1, required support with norepinephrine for. Procedure low blood pressure -Rate controlled atrial fibrillation also noted at that time 3. 10/25/2018, cardiac catheterization in the setting of abnormal stress echocardiogram, 60% mid LAD noted, with fractional flow reserve suggestive that the stenosis had not been hemodynamically significant at that time, patent RCA stent 4. 03/15/2018, cardiac catheterization from a for non-STEMI, received PCI, drug- eluting stents to the mid and late mid RCA 5. Ongoing cigarette smoking 6. History of recurrent pancreatitis, choledocholithiasis, status post ERCP and laparoscopic cholecystectomy, 2020 Allergies Allergy/AdvReac Type Severity Reaction Status Date / Time No Known Allergies Allergy Verified 10/19/21 12:41 Home Medications Medication Instructions Recorded Confirmed Type aspirin 81 mg tablet,delayed 81 mg PO QAM 10/06/18 07/27/22 History release sertraline 50 mg tablet (Zoloft) 50 mg PO QAM 10/06/18 07/27/22 History nitroglycerin 0.4 mg sublingual 0.4 mg sublingual UD PRN Chest Pain 10/07/18 07/27/22 History tablet (Nitrostat) ticagrelor 90 mg tablet (Brilinta) 90 mg PO BID 30 days #60 tabs 08/11/20 07/27/22 Rx dicyclomine 10 mg capsule 10 mg PO BID PRN Abdominal Pain 12/06/20 07/27/22 Hist ory ezetimibe 10 mg tablet 10 mg PO QAM 12/06/20 07/27/22 History famotidine 40 mg tablet 40 mg PO HS PRN Acid Reflux 12/06/20 07/27/22 History isosorbide mononitrate 60 mg 60 mg PO DAILY 12/06/20 07/27/22 History tablet,extended release 24 hr magnesium oxide 400 mg PO QAM 12/06/20 07/27/22 History pantoprazole 40 mg tablet,delayed 40 mg PO QAM PRN Acid Reflux 08/20/21 07/27/22 History release metoprolol succinate 25 mg 25 mg PO DAILY 07/27/22 07/27/22 History tablet,extended release 24 hr rosuvastatin 40 mg tablet 40 mg PO DAILY 07/27/22 07/27/22 History Patient History Medical History Acute pancreatitis Barretts esophagus CAD (coronary artery disease) 2018-RCA stent x 2 07/2020-STEMI, s/p PCI to left circumflex with 2 MELLY. Post procedure complicated by V. fib arrest requiring defibrillation. 12/2020-NSTEMI s/p 3 Xience MELLY to the distal aspect of prior stent of the left posterior lateral branch vessel COVID-29 Oct 2021 Depression RADHA (generalized anxiety disorder) GERD (gastroesophageal reflux disease) Grade II diastolic dysfunction HLD (hyperlipidemia) Mobitz type 2 second degree atrioventricular block Splenic infarct Tobacco abuse Surgical History History of endoscopic retrograde cholangiopancreatography x2 (08/31, 09/30) History of vasectomy Hx laparoscopic cholecystectomy (08/22/21) Laparoscopic Cholecystectomy Dr. 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 Beliefs That Will Affect Care: None marital status: Single Current Living Situation: Alone current occupational status: employed Other Information That Helps Us Care for You: No Feels Safe at Home: Yes Safety Concerns: Feels Safe At This Time Assistive Devices: None Review of Systems Review of Systems: All systems reviewed & are unremarkable except as noted in HPI & below Physical Exam Physical Exam: Temp Pulse Resp BP Pulse Ox O2 Del Method 37.3 C 70 16 136/84 97 07/27/22 14:40 07/27/22 14:40 07/27/22 14:40 07/27/22 14:40 07/27/22 14:40 07/27/22 14:40 Constitutional: WD/WN, vitals as above Respiratory: normal respiratory effort, lungs clear to auscultation Cardiovascular: RRR, no murmur, no edema Gastrointestinal (Abdomen): Reproducible abdominal discomfort, lower quadrants bilaterally, no epigastric discomfort on palpation Neurologic: PERRL, EOMI, accommodation nl, no face palsy, no dysarthria Results & Data ([facility]) Laboratory Results Cardiac Enzymes 07/27/22 Range/Units 10:40 AST 18 (13-39) U/L Troponin I High Sens 8.3 (0-20) pg/ml Coagulation 07/27/22 Range/Units 10:40 PT 10.7 (9.0-12.0) Seconds APTT 28.5 (21.0-31.0) Seconds CBC 07/27/22 Range/Units 10:40 WBC 12.68 H (4.8-10.8) K/ul RBC 4.62 L (4.63-6.08) M/uL Hgb 15.7 (14.0-18.0) g/dl Hct 43.3 (40.1-51.0) % Plt Count 274 (130-400) K/uL Neut # (Auto) 10.44 H (1.4-6.5) K/uL Lymph # (Auto) 1.70 (1.2-3.4) K/uL [place] # (Auto) 0.39 (0.24-0.82) K/uL Eos # (Auto) 0.03 (0-0.50) K/uL Baso # (Auto) 0.07 (0-0.2) K/uL Comprehensive Metabolic Panel 07/27/22 Range/Units 10:40 Sodium 134 L (136-145) mmol/L Potassium 4.2 (3.5-5.1) mmol/L Chloride 101 (98-107) mmol/L Carbon Dioxide 23 (21-32) mmol/L BUN 15 (6-23) mg/dl Creatinine 1.23 (0.6-1.4) mg/dl Glucose 119 H (70-99(Fasting)) mg/dl Calcium 9.8 (8.5-10.1) mg/dl AST 18 (13-39) U/L ALT 15 (7-52) U/L Alkaline Phosphatase 66 (34-104) U/L Total Protein 7.5 (6.0-8.3) gm/dl Albumin 4.5 (3.4-5.0) gm/dl Intake and Output 07/27/22 07/27/22 07/27/22 06:59 14:59 22:59 Intake Total 500 / 500 Balance 500 / 500 Intake: IV 500 / 500 Sodium Chloride 0.9% 500 ml @ 500 / 500 999 mls/hr IV .Q31M STA Rx#: [id number] Other: Weight 60.1 kg Weight Measurement Method Standing Scale Patient Weight 07/28/22 06:59 Weight 60.1 kg Diagnostic Findings Summary of previous transthoracic echocardiogram performed as an outpatient 03/13/2021: The qualitative LV ejection fraction is 50-54% (normal). There is a moderate sized inferior and posterior wall motion abnormality with hypokinesis to akinesis of the segments. There is a small sized inferior scar. The left ventricular diastolic function is moderately abnormal (grade II). Moderate mitral regurgitation is present. Mitral regurgitation secondary to posterior wall motion abnormality add tethering of the mitral valve leaflet. The aortic root is borderline enlarged, 3.9 cm. Compared to last available study changes are noted as follows: Posterior/inferior wall motion abnormality with moderate mitral regurgitation now present.
[2022-07-27] MEDS: PANTOprazole 40 MG in SYRINGE 0 ML IV SCH ×2 (17:10→20:37)
[2022-07-27] MEDS: SODIUM CHLORIDE 0.9% 1000ML 1,000 ML IV SCH (17:10)
[2022-07-27] MEDS: TICAGRELOR 90 MG TAB PO SCH (20:37)
[2022-07-27] MEDS: CALCIUM CARBONATE 500 MG CHEWABLE TAB PO SCH (20:37)
[2022-07-27] MEDS ORDERED: ACETAMINOPHEN 325 MG TAB PO PRN (20:44)
[2022-07-28 06:23] LABS: Basophils # (auto) 0.05 K/uL (0-0.2); Basophils % (auto) 0.6 %; Eosinophils # (auto) 0.12 K/uL (0-0.50); Eosinophils % (auto) 1.5 %; Hematocrit (blood only) 39.6 % (40.1-51.0); Hemoglobin 14.2 g/dl (14.0-18.0); Immature Granulocytes # (auto) 0.02 K/uL (0.00-0.02); Immature Granulocytes % (auto) 0.2 %; Lymphocytes # (auto) 1.66 K/uL (1.2-3.4); Lymphocytes % (auto) 20.6 %; Mean Corpuscular Hemoglobin 33.6 pg (25.0-34.0); Mean Corpuscular Hgb Conc 35.9 g/dL (32.0-36.0); Mean Corpuscular Volume 93.6 fL (80.0-100.0); Mean Platelet Volume 8.9 fL (9.4-12.4); Monocytes # (auto) 0.39 K/uL (0.24-0.82); Monocytes % (auto) 4.9 %; Neutrophils % (auto) 72.2 %; Platelet Count 222 K/uL (130-400); RDW Coefficient of Variation 12.9 % (11.5-14.5); RDW Standard Deviation 43.8 fL (36.4-46.3); Red Blood Count 4.23 M/uL (4.63-6.08); White Blood Count 8.04 K/ul (4.8-10.8)
[2022-07-28 06:50] LABS: Albumin Globulin Ratio 1.5 (0.9-2); Albumin Level 3.8 gm/dl (3.4-5.0); BUN Creatinine Ratio 15.1 (10-20); Bilirubin,Total 0.8 mg/dl (0.2-1.0); Calcium 8.8 mg/dl (8.5-10.1); Chol HDL Ratio 5.7 (0-5); Creatinine Clr Calc Pharmacy 66.1 ml/min; Est GFR (African American) 93.1 ml/min; Est GFR (Non-African American) 80.3 ml/min; Globulin 2.5 gm/dl (2.5-4.0); Potassium 4.1 mmol/L (3.5-5.1); Total Protein 6.3 gm/dl (6.0-8.3)
[2022-07-28] MEDS: SODIUM CHLORIDE 0.9% 1000ML 1,000 ML IV SCH (08:07)
[2022-07-28] MEDS: CALCIUM CARBONATE 500 MG CHEWABLE TAB PO SCH (08:09)
[2022-07-28] MEDS: PANTOprazole 40 MG in SYRINGE 0 ML IV SCH (08:09)
[2022-07-28] MEDS: TICAGRELOR 90 MG TAB PO SCH (08:09)
[2022-07-28] MEDS ORDERED: METOPROLOL SUCC 25MG EXT REL TAB PO SCH (09:00)
[2022-07-28] MEDS ORDERED: ISOSORBIDE MONO EXTENDED REL 60 MG TABCR PO SCH (09:00)
[2022-07-28] MEDS ORDERED: SERTRALINE HCL 50 MG TABLET PO SCH (09:00)
[2022-07-28] MEDS ORDERED: ENOXAPARIN INJ 40 MG/0.4 ML SYR SQ SCH (09:00)
[2022-07-28] MEDS ORDERED: ASPIRIN 81 MG ECTAB PO SCH (09:00)
--- NOTE | 2022-07-28 09:03 | Electrocardiogram Report ---
Test Reason : Blood Pressure : / mmHG Vent. Rate : 054 BPM Atrial Rate : 054 BPM P-R Int : 126 ms QRS Dur : 088 ms QT Int : 390 ms P-R-T Axes : 069 034 028 degrees QTc Int : 369 ms Poor data quality, interpretation may be adversely affected Sinus bradycardia Left atrial enlargement Incomplete right bundle branch block Borderline ECG When compared with ECG of 27-JUL-2022 12:05, No significant change was found Confirmed by Paul Livingston ([id number]) on 07/28/2022 9:02:57 AM Referred By: REFERRED SELF Confirmed By:Paul Livingston
--- NOTE | 2022-07-28 09:17 | Cardiology Progress Note ---
Date of Service July 28, 2022 Assessment & Plan (1) Chest pain: Plan: * EKG yesterday and again today without ischemic changes * serial HS troponin negative * no additional symptom, with walking trial * Patient is on fpc dural antiplatelet therapy due to complex Cx PCI, and is over 18 month removed from that incident. * Continue ASA 81 mg katie lifelong * Reduce Brilinta to the maintenance dose of 60 mg BID (indefinitely) * Continue metoprolol , Imdur home doses * Do not plan for stress testing at present (2) Abdominal pain, periumbilical: Plan: * Abdominal pain better. * Lipase only minimally elevated, and Triglycerides are not severely elevated * DC IV fluids * Discussed with GI, possible ERCP , Eus as outpatient. OK to hold Brilinta for 3 days prior to ERCP / EUS as had been done in 2020. (3) HLD (hyperlipidemia): Plan: * LDL remains 154 despite Ezetimibe and rosuvastatin 40 mg . * Refer to [facility] pharmacy clinic as outpt, as I think pt would benefit from counseling, ensuring adherence, consideration of PCSK9 agent. -I sent an order for the new Brilinta dose, 90 day supply with 3 refills to [facility]. -Pt missed most recent cardiology visit, will arrange follow up. Admission and Anticipated Discharge Date Admission Date: July 27, 2022 Subjective Patient seen in cardiology follow up. He feels well. He remains on gentle IV fluids. Abdominal pain has resolved. No current chest pain. He is walking in the hallway and remains asymptomatic. He works a job and notes no symptoms suggestive of angina recently while at work. Review of Systems Review of Systems: All systems reviewed & are unremarkable except as noted in HPI & below Physical Exam Physical Exam: Temp Pulse Resp BP Pulse Ox O2 Del Method 36.9 C 80 18 132/90 93 07/28/22 08:36 07/28/22 08:36 07/28/22 08:36 07/28/22 08:36 07/28/22 08:36 07/28/22 08:36 Constitutional: WD/WN, vitals as above Respiratory: normal respiratory effort, lungs clear to auscultation Cardiovascular: RRR, no murmur, no edema Neurologic: PERRL, EOMI, accommodation nl, no face palsy, no dysarthria Results & Data ([facility]) Laboratory Results Cardiac Enzymes 07/27/22 07/27/22 07/27/22 Range/Units 10:40 16:34 22:27 AST 18 (13-39) U/L Troponin I High Sens 8.3 8.1 8.5 (0-20) pg/ml 07/28/22 Range/Units 05:56 AST 16 (13-39) U/L Troponin I High Sens (0-20) pg/ml Coagulation 07/27/22 Range/Units 10:40 PT 10.7 (9.0-12.0) Seconds APTT 28.5 (21.0-31.0) Seconds Lipids 07/28/22 Range/Units 05:56 Triglycerides 113 (0-150) mg/dl Cholesterol 215 H (0-200) mg/dl HDL Cholesterol 38 mg/dl Cholesterol/HDL Ratio 5.7 H (0-5) LDL 154 mg/dl CBC 07/27/22 07/28/22 Range/Units 10:40 05:56 WBC 12.68 H 8.04 (4.8-10.8) K/ul RBC 4.62 L 4.23 L (4.63-6.08) M/uL Hgb 15.7 14.2 (14.0-18.0) g/dl Hct 43.3 39.6 L (40.1-51.0) % Plt Count 274 222 (130-400) K/uL Neut # (Auto) 10.44 H 5.80 (1.4-6.5) K/uL Lymph # (Auto) 1.70 1.66 (1.2-3.4) K/uL Vigo # (Auto) 0.39 0.39 (0.24-0.82) K/uL Eos # (Auto) 0.03 0.12 (0-0.50) K/uL Baso # (Auto) 0.07 0.05 (0-0.2) K/uL Comprehensive Metabolic Panel 07/27/22 07/28/22 Range/Units 10:40 05:56 Sodium 134 L 134 L (136-145) mmol/L Potassium 4.2 4.1 (3.5-5.1) mmol/L Chloride 101 105 (98-107) mmol/L Carbon Dioxide 23 21 (21-32) mmol/L BUN 15 16 (6-23) mg/dl Creatinine 1.23 1.06 (0.6-1.4) mg/dl Glucose 119 H 82 (70-99(Fasting)) mg/dl Calcium 9.8 8.8 (8.5-10.1) mg/dl AST 18 16 (13-39) U/L ALT 15 12 (7-52) U/L Alkaline Phosphatase 66 56 (34-104) U/L Total Protein 7.5 6.3 (6.0-8.3) gm/dl Albumin 4.5 3.8 (3.4-5.0) gm/dl Intake and Output 07/27/22 07/28/22 07/28/22 22:59 06:59 14:59 Intake Total 50 / 550 971.75 / 971.75 Output Total 0 / 0 Balance 0 / 550 50 / 550 971.75 / 971.75 Intake: IV 971.75 / 971.75 Sodium Chloride 0.9% 1000ML 1, 971.75 / 971.75 000 ml @ 65 mls/hr IV .[id number] [facility] Rx#:[id number] Oral 50 / 50 Output: Urine 0 / 0 Other: Weight 57.3 kg Weight Measurement Method Built in [facility]
--- NOTE | 2022-07-28 10:13 | Gastrointestinal Consultation ---
Date of Consultation July 28, 2022 Assessment & Plan (1) Abdominal pain, periumbilical: (2) Elevated lipase: Pt is a 51 yo male w hx of pancreatitis, choledocholithiasis removal, biliary + pancreatic stent placements, who presented w c/o upper abd pain, nausea, and diarrhea x 1 episode. Later yesterday evening he developed pressure like CP symptoms wo radiation. Hx of GA w stents placements. Cardiac markers and EKG reassuring. LFTs normal, lipase mildly up at 100. No abd imaging studies present. He states all of his symptoms are resolved today. Abd exam is benign - Advance diet as tolerated - Plan for OP EUS +/- ERCP evaluation - Symptomatic management otherwise - Avoidance of ETOH, and tobacco cessation advised - GI to sign off, recall prn Supervising Physician Co-Signing Physician Notes I saw and evaluated the patient. We were asked to see the patient with regard to a history of chest pain and a mild elevation of his lipase. The patient does not endorse having abdominal pain this morning and he presented for evaluation of chest discomfort. The patient does have a history of choledocholithiasis and underwent a cholecystectomy and ERCP about 1 year ago. He denies having fevers chills sweats or rigors. His liver enzymes are presently within normal limits. Physical examination no obvious distress No scleral icterus Impression: Patient presented with chest pain and mild elevation of his lipase, this likely represents pancreatitis, would recommend advancing the patient's diet as tolerated, we will plan for an outpatient EUS with possible ERCP in the near future once she is cleared from a cardiac standpoint. Please call with any questions or concerns GI to sign off History of Present Illness Reason for Consultation: Elevated lipase, history of pancreatitis Requesting Physician: Dr. Anahy Adkins Attending Physician: Dr. Kike Gross History of Present Illness Pt is a 51 yo male w PMHx of GA x 2, PCI stents placements currently on ASA and Brilinta who presented last night w c/o chest pain. Prior to start of CP symptoms last evening, pt woke up yesterday morning having upper abd pain, nausea wo vomiting and one episode of diarrhea. Later in the evening when he's laying down, he started having pressure like mid chest pain wo radiation and wo associated diaphoresis, SOB. CP symptoms resolved w administeration of ASA and nitro. Troponin and EKG in ED reassuring. Labs wo leukocytosis, or LFTs elevation. Lipase was mildly up at 100s. He did have hx of pancreatitis, choledocholithiasis removal via ERCP, biliary and pancreatic stent placements which had been removed as of 09/2021. He smokes, denies ETOH, marijuana products or other new meds/supplements. Allergies Allergy/AdvReac Type Severity Reaction Status Date / Time No Known Allergies Allergy Verified 10/19/21 12:41 Home Medications Medication Instructions Recorded Confirmed Type aspirin 81 mg tablet,delayed 81 mg PO QAM 10/06/18 07/27/22 History release sertraline 50 mg tablet (Zoloft) 50 mg PO QAM 10/06/18 07/27/22 History nitroglycerin 0.4 mg sublingual 0.4 mg sublingual UD PRN Chest Pain 10/07/18 07/27/22 History tablet (Nitrostat) ticagrelor 90 mg tablet (Brilinta) 90 mg PO BID 30 days #60 tabs 08/11/20 07/27/22 Rx dicyclomine 10 mg capsule 10 mg PO BID PRN Abdominal Pain 12/06/20 07/27/22 History ezetimibe 10 mg tablet 10 mg PO QAM 12/06/20 07/27/22 History famotidine 40 mg tablet 40 mg PO HS PRN Acid Reflux 12/06/20 07/27/22 History isosorbide mononitrate 60 mg 60 mg PO DAILY 12/06/20 07/27/22 History tablet,extended release 24 hr magnesium oxide 400 mg PO QAM 12/06/20 07/27/22 History pantoprazole 40 mg tablet,delayed 40 mg PO QAM PRN Acid Reflux 08/20/21 07/27/22 History release metoprolol succinate 25 mg 25 mg PO DAILY 07/27/22 07/27/22 History tablet,extended release 24 hr rosuvastatin 40 mg tablet 40 mg PO DAILY 07/27/22 07/27/22 History Patient History Medical History Acute pancreatitis Barretts esophagus CAD (coronary artery disease) 2017-RCA stent x 2 07/2020-STEMI, s/p PCI to left circumflex with 2 MELLY. Post procedure complicated by V. fib arrest requiring defibrillation. 12/2020-NSTEMI s/p 3 Xience MELLY to the distal aspect of prior stent of the left posterior lateral branch vessel COVID-29 Oct 2021 Depression RADHA (generalized anxiety disorder) GERD (gastroesophageal reflux disease) Grade II diastolic dysfunction HLD (hyperlipidemia) Mobitz type 2 second degree atrioventricular block Splenic infarct Tobacco abuse Surgical History History of endoscopic retrograde cholangiopancreatography x2 (08/31, 09/30) History of vasectomy Hx laparoscopic cholecystectomy (08/22/21) Laparoscopic Cholecystectomy Dr. Davidson 08/22/2021 Family History Other Diabetes Stroke Social History Smoking Status: Current every day smoker Tobacco Type: Cigarettes Years Smoked: 31; Cigarettes Per Day: 2; Second Hand Exposure: No; Do You Dip or Chew Tobacco: No; Tobacco Cessation Education Requested by Patient: No Hx Alcohol Use: No Hx Substance Use: No Preferred Language: Luxembourgish Communication Ability: Effective Cryptographic Technician Required: No Beliefs That Will Affect Care: None marital status: Single Current Living Situation: Alone current occupational status: employed Other Information That Helps Us Care for You: No Feels Safe at Home: Yes Safety Concerns: Feels Safe At This Time Assistive Devices: None Review of Systems Review of Systems: All systems reviewed & are unremarkable except as noted in HPI & below Physical Exam Constitutional: WD/WN, vitals as above well groomed, cooperative and comfortable Eyes: PERRL, conjunctivae normal, anicteric sclerae ENMT: external ear and nose normal, oropharynx normal Respiratory: normal respiratory effort, lungs clear to auscultation Cardiovascular: RRR, no murmur, no edema Gastrointestinal (Abdomen): normal bowel sounds, soft, nontender, no hepatosplenomegaly Skin: no rashes, warm and dry no jaundice Psychiatric: A+Ox3, euthymic affect Lymphatic: no lymphedema Results & Data ([facility]) Vital Signs (Past 12 Hours) Vital Signs Temp Pulse Pulse Resp BP BP Pulse Ox 07/28/22 08:36 36.9 C 80 18 132/90 93 07/28/22 07:43 63 07/28/22 03:26 36.6 C 58 L 15 121/73 95 07/27/22 23:34 36.7 C 77 16 126/81 95 O2 Del Method 07/28/22 08:36 Room Air 07/28/22 07:43 07/28/22 03:26 Room Air 07/27/22 23:34 Room Air
--- NOTE | 2022-07-28 14:19 | Discharge Summary ---
Discharge Summary Date of Service July 28, 2022 Notes For Next Care Provider please ensure close GI follow-up for outpatient EUS recommended Please help patient to quit smoking Medication Changes From Visit Brilinta changed from 90mg PO BID to 60mg PO BID Cont ASA 81mg indefinitely Admission HPI Per Admitting Provider This is a 51 y/o male with a PMH of CAD w/ hx prior AL x 2, PCI with stents, prior acute pancreatitis s/p ERCP with stent placement, GERD, dyslipidemia, anxiety, and Casanova esophagus who presents to the ED today with chest pain. Pt has a complex cardiac history with last visit to cardiology in February 2021. Most recent PCI to OM1 in December 2020 when pt presented with syncope and was found to have transient Mobitz 2 heart block. In Aug 2021, pt was admitted with cholecystitis and gallstone pancreatitis, underwent lap rosas and ERCP with biliary stent placement on 08/22/21. Readmitted in Sep 2021 with acute pancreatitis and underwent EGD/ERCP with stent removal and balloon extraction of residual choledocholithiasis. Brief readmission later in Sep due to recurrent pain. Overall, pt did well until current symptoms other than COVID in Oct 2021. Pt reports that he felt fine last evening. Woke up for work this morning and noticed that his stomach was upset with nausea and mild pain. He tried to go to work but symptoms seemed to be worsening in severity, then had an episode of diarrhea so he decided to go home and nap. Around 10 am, he developed substernal chest discomfort that he describes as a pressure, feels similar to prior MIs. He tried to drive himself to the ED but pain worsened and he felt lightheaded so he stopped at the EMS station. Given aspirin 324 mg and nitro x 3 with improvement of chest pain. However, his GI symptoms have remained. In the ED, he had recurrence of the chest discomfort so given nitro paste with subsequent improvement. His main complaint at present is the abdominal pain and nausea. He had some associated chills but no vomiting or documented fever. He denies upper respiratory symptoms or SOB. No recent exertional chest pain, BARRON, or peripheral edema. He has a CERDA at present that he attributes to the nitro. He does have HAs daily for which he uses ibuprofen 400-600 mg daily. He reports that his acid reflux symptoms have been much improved since rosas/ERCPs so he is only using pantoprazole and famotidine PRN. No recent dark urine, blood in stools. Principal Dx & Hospital Course #1 = Principal Diagnosis (1) Chest pain: (2) Acute pancreatitis: (3) Abdominal pain, periumbilical: (4) CAD (coronary artery disease): (5) RADHA (generalized anxiety disorder): Plan 51 yo M smoker with a history of complex heart disease presented with chest pain that began at rest. This pain was described as his index angina and patient has history of cardiac disease with stents and follows with [facility] cardiology. Initial EKG reveals normal sinus rhythm with a rate of [address] changes or T wave inversions.. Troponin was not elevated, white blood cell count was 12 with a normal H&H and platelet count. His kidney function was unremarkable with mild hyponatremia at 134. LFTs were unremarkable with an elevated lipase at 116. Nitropaste and morphine were given in the ER. He was admitted out of concern for acute pancreatitis to the medicine team. Pain improved status post Nitropaste +3 sublingual nitros. He was placed on bowel rest and given pain meds as needed. GI was consulted as he has a history of choledocholithiasis with removal and biliary and pancreatic stent placements historically 1 year prior. Diarrhea was also reported 1 time. His symptoms completely resolved following day and he was planned for an outpatient EUS +/- ERCP evaluation in [facility] gastroenterology clinic. Avoidance of alcohol and tobacco cessation was strongly advised. With respect to his chest pain, cardiology was consulted and notes that he has been on long-term dual antiplatelet therapy due to complex disease with PCI and was over 18 months removed from that incident. His Brilinta was reduced to the maintenance dose of 60 mg p.o. twice daily and he is to continue aspirin indefinitely lifelong. He was continued on metoprolol and Imdur at his home doses. There was no indication for stress test and he was discharged in stable condition with symptoms completely resolved and close follow-up recommended with primary care doctor. Discharge Exam CONSTITUTIONAL: WNWD, vitals as above, generally well-appearing, NAD EYES: normal conjunctivae, no scleral icterus ENT: external ear and nose normal,MMM NECK: trachea midline, RESPIRATORY: clear to auscultation bilaterally, no crackles, rales or wheezes, normal respiratory effort CARDIOVASCULAR: regular rate and rhythm, S1 and 2 heard without murmurs, gallops or rubs, no JVD, no peripheral edema, CHEST: inspection of chest was normal GASTROINTESTINAL: soft, nontender, ND, no guarding MUSCULOSKELETAL: strength 5/5 throughout, head is normocephalic and atraumatic SKIN: warm and dry NEUROLOGIC: CN 2-12 grossly intact, no sensory deficit, normal cognition, normal speech, no tremor PSYCHIATRIC: alert cooperative and oriented to person, place and time. Updated Medication List Medication Instructions Recorded Confirmed Type aspirin 81 mg tablet,delayed 81 mg PO QAM 10/06/18 07/27/22 History release sertraline 50 mg tablet (Zoloft) 50 mg PO QAM 10/06/18 07/27/22 History nitroglycerin 0.4 mg sublingual 0.4 mg sublingual UD PRN Chest Pain 10/07/18 07/27/22 History tablet (Nitrostat) dicyclomine 10 mg capsule 10 mg PO BID PRN Abdominal Pain 12/06/20 07/27/22 History ezetimibe 10 mg tablet 10 mg PO QAM 12/06/20 07/27/22 History famotidine 40 mg tablet 40 mg PO HS PRN Acid Reflux 12/06/20 07/27/22 History isosorbide mononitrate 60 mg 60 mg PO DAILY 12/06/20 07/27/22 History tablet,extended release 24 hr magnesium oxide 400 mg PO QAM 12/06/20 07/27/22 History pantoprazole 40 mg tablet,delayed 40 mg PO QAM PRN Acid Reflux 08/20/21 07/27/22 History release metoprolol succinate 25 mg 25 mg PO DAILY 07/27/22 07/27/22 History tablet,extended release 24 hr rosuvastatin 40 mg tablet 40 mg PO DAILY 07/27/22 07/27/22 History ticagrelor 90 mg tablet (Brilinta) 60 mg PO BID 30 days #60 tabs 07/28/22 07/27/22 Rx Hospital Stay Data Consultations 07/27/22 12:59 ED Decision to Admit Stat 07/27/22 14:40 Consult Cardiology Routine Consult Gastroenterology Routine Pending Results Patient Have Any Pending Studies at Discharge: No Discharge Instructions Given to Patient (Per Discharging Provider) Please take all medications as instructed on discharge list below. [facility] by your legislative advocate already. Please continue this at the reduced dose. Also, it is important that you continue baby aspirin indefinitely. It is recommended that you follow-up with [facility] Gastroenterology for an endoscopic ultrasound (EUC) +/- ERCP. This is to further workup the cause of your abdominal pain. Please contact them with the date and time of your appointment. It is strongly recommended that you quit smoking for overall good health! It was a pleasure taking care of you! Please call if you have any questions or problems. You can reach a [facility] hospitalist on duty at [facility] 24 hours a day by calling [phone]. Take care of yourself. Anahy Adkins, [place] Hospitalist Total Time Total Time Spent Total Time Spent (In Minutes): 60
[2022-07-28] MEDS ORDERED: TICAGRELOR 90 MG TAB PO SCH (21:00)
== END 2022-07-28 15:12 | disposition home or self-care (01) ==
LOC: ED 11:52 → 4W 11:52 → SUATTDRO 13:15 → 4W 15:45
DX: I25.2 Old myocardial infarction; Z79.82 Long term (current) use of aspirin; F17.210 Nicotine dependence, cigarettes, uncomplicated; R07.9 Chest pain, unspecified; Z95.5 Presence of coronary angioplasty implant and graft; Z79.899 Other long term (current) drug therapy; Z86.16 Personal history of COVID-19; K85.90 Acute pancreatitis without necrosis or infection, unspecified

== ENCOUNTER 2022-08-03 00:43 | Observation (INO) ==
[2022-08-03] MEDS ORDERED: KETOROLAC 30 MG/ML VIAL ONE (00:56)
[2022-08-03] MEDS ORDERED: ONDANSETRON INJ 2 MG/ML 2 ML VIAL ONE (00:56)
[2022-08-03] MEDS ORDERED: MoRPHine SULFATE 4 MG/ML 1 ML CARP\\VIAL IV STA ×3 (00:57→08:23)
[2022-08-03] MEDS ORDERED: ONDANSETRON INJ 2 MG/ML 2 ML VIAL IV STA ×2 (00:57→07:40)
[2022-08-03] MEDS: SODIUM CHLORIDE 0.9% 1000ML 1,000 ML IV SCH ×3 (01:06→18:24)
[2022-08-03 01:12] LABS: Basophils # (auto) 0.07 K/uL (0-0.2); Basophils % (auto) 0.7 %; Hematocrit (blood only) 41.4 % (40.1-51.0); Hemoglobin 15.1 g/dl (14.0-18.0); Immature Granulocytes # (auto) 0.03 K/uL (0.00-0.02); Immature Granulocytes % (auto) 0.3 %; Lymphocytes # (auto) 1.73 K/uL (1.2-3.4); Lymphocytes % (auto) 17.9 %; Mean Corpuscular Hemoglobin 34.2 pg (25.0-34.0); Mean Corpuscular Hgb Conc 36.5 g/dL (32.0-36.0); Mean Corpuscular Volume 93.9 fL (80.0-100.0); Mean Platelet Volume 8.9 fL (9.4-12.4); Monocytes # (auto) 0.53 K/uL (0.24-0.82); Monocytes % (auto) 5.5 %; Neutrophils # (auto) 7.21 K/uL (1.4-6.5); Neutrophils % (auto) 74.6 %; Platelet Count 315 K/uL (130-400); RDW Coefficient of Variation 13.2 % (11.5-14.5); RDW Standard Deviation 45.1 fL (36.4-46.3); Red Blood Count 4.41 M/uL (4.63-6.08); White Blood Count 9.67 K/ul (4.8-10.8)
[2022-08-03 01:39] LABS: Albumin Globulin Ratio 1.4 (0.9-2); Albumin Level 4.3 gm/dl (3.4-5.0); BUN Creatinine Ratio 10.6 (10-20); Bilirubin,Total 0.6 mg/dl (0.2-1.0); Calcium 9.4 mg/dl (8.5-10.1); Creatinine Clr Calc Pharmacy 64.2 ml/min; Est GFR (African American) 86.1 ml/min; Est GFR (Non-African American) 74.3 ml/min; Globulin 3.1 gm/dl (2.5-4.0); Magnesium 1.9 mg/dl (1.7-2.4); Potassium 3.7 mmol/L (3.5-5.1); Total Protein 7.4 gm/dl (6.0-8.3)
[2022-08-03 01:44] LABS: Troponin I High Sensitivity 9.7 pg/ml (0-20)
[2022-08-03] MEDS ORDERED: OPTIRAY 350 100ml IV ONE (02:11)
[2022-08-03] MEDS ORDERED: ACETAMINOPHEN 1,000 MG/100 ML VIAL IV STA ×2 (02:50→07:40)
[2022-08-03] MEDS ORDERED: DICYCLOMINE HCL 10 MG CAP PO ONE (02:50)
[2022-08-03] MEDS ORDERED: KETOROLAC TROMETHAMINE 15 MG/ML VIAL IV ONE (02:50)
--- NOTE | 2022-08-03 02:52 | Emergency Department Note ---
History of Present Illness General Chief complaint: Abdominal Pain Time Seen by Provider: 08/03/22 00:46 Source: patient Mode of arrival: EMS Limitations: no limitations History of Present Illness Provider complaint: Abdominal pain Onset (ago): hour(s) Maximum Pain Intensity: 9 This is a 51-year-old male brought in by EMS concern for abrupt onset of periumbilical abdominal pain. Patient with recent admission for pancreatitis although states that pain was typically lower. He states he was seated at the time the pain began. Pain is otherwise nonradiating, he did make him nauseated and he vomited several times. He denies hematemesis. He denies any new or diff erent foods prior to the onset of symptoms. No known sick contacts. No change in urine or stools. He denies fevers or chills. Patient was given Zofran and Toradol by EMS prior to arrival without any improvement of his symptoms. He states he has previously had his gallbladder removed as that was thought to originally be the etiology of his pancreatitis prior. He states they were unsure why he had pancreatitis most recently again and he was referred for additional outpatient testing. Patient states abdominal pain does not feel similar to any prior cardiac issues he has had as he does have prior heart history. He states no accompanying chest pain or shortness of breath. Home Medications Medication Instructions Recorded Confirmed Type aspirin 81 mg tablet,delayed 81 mg PO QAM 10/06/18 08/03/22 History release sertraline 50 mg tablet (Zoloft) 50 mg PO QAM 10/06/18 08/03/22 History nitroglycerin 0.4 mg sublingual 0.4 mg sublingual UD PRN Chest Pain 10/07/18 08/03/22 History tablet (Nitrostat) dicyclomine 10 mg capsule 10 mg PO BID PRN Abdominal Pain 12/06/20 08/03/22 History ezetimibe 10 mg tablet 10 mg PO QAM 12/06/20 08/03/22 History famotidine 40 mg tablet 40 mg PO HS PRN Acid Reflux 12/06/20 08/03/22 History isosorbide mononitrate 60 mg 60 mg PO DAILY 12/06/20 08/03/22 History tablet,extended release 24 hr magnesium oxide 400 mg PO QAM 12/06/20 08/03/22 History pantoprazole 40 mg tablet,delayed 40 mg PO QAM PRN Acid Reflux 08/20/21 08/03/22 History release metoprolol succinate 25 mg 25 mg PO DAILY 07/27/22 08/03/22 History tablet,extended release 24 hr rosuvastatin 40 mg tablet 40 mg PO DAILY 07/27/22 08/03/22 History ticagrelor 90 mg tablet (Brilinta) 60 mg PO BID 30 days #60 tabs 07/28/22 08/03/22 Rx Allergies Allergy/AdvReac Type Severity Reaction Status Date / Time No Known Allergies Allergy Verified 10/19/21 12:41 Past Med/Surg History Medical History Acute pancreatitis Barretts esophagus CAD (coronary artery disease) 2017-RCA stent x 2 07/2020-STEMI, s/p PCI to left circumflex with 2 MELLY. Post procedure complicated by V. fib arrest requiring defibrillation. 12/2020-NSTEMI s/p 3 Xience MELLY to the distal aspect of prior stent of the left posterior lateral branch vessel COVID-29 Oct 2021 Depression RADHA (generalized anxiety disorder) GERD (gastroesophageal reflux disease) Grade II diastolic dysfunction HLD (hyperlipidemia) Mobitz type 2 second degree atrioventricular block Splenic infarct Tobacco abuse Surgical History History of endoscopic retrograde cholangiopancreatography x2 (08/31, 09/30) History of vasectomy Hx laparoscopic cholecystectomy (08/22/21) Laparoscopic Cholecystectomy Dr. Davidson 08/22/2021 Family History Mother Gallbladder disease Sister Gallbladder disease Other Diabetes Stroke Denies family history of Pancreatic disease Social History Smoking Status: Current every day smoker Tobacco Type: Cigarettes Years Smoked: 31; Cigarettes Per Day: 2; Second Hand Exposure: No; Hx Alcohol Use: No Hx Substance Use: No Preferred Language: Kyrgyz Communication Ability: Effective Apartment Leasing Specialist Required: No Beliefs That Will Affect Care: None marital status: Single Current Living Situation: Alone current occupational status: employed Feels Safe at Home: Yes Assistive Devices: Glasses Review of Systems A total of 10 systems reviewed and were otherwise negative All systems reviewed & are unremarkable except as noted in HPI & below Physical Exam Vital Signs Vital Signs - 24 hr 08/03/22 00:32 08/03/22 00:57 08/03/22 02:32 Pulse Rate 74 Pulse Rate [Left Finger] Pulse Rate from SpO2 Sensor Respiratory Rate 21 Respiratory Effort / Characteristics Non-Labored Non-Labored Respiratory Depth Normal Normal Blood Pressure 170/120 H Blood Pressure [Right Arm] Blood Pressure Mean 136 Blood Pressure Mean [Right Arm] Blood Pressure Position [Right Arm] Pulse Oximetry 99 Oxygen Delivery Method Room Air Room Air Sepsis Recent Fever Within 48 Hours No Sepsis New/Unexplained Change in Mental Status No Sepsis Action Taken by Nursing No Action Required 08/03/22 00:48 08/03/22 00:50 08/03/22 01:00 Pulse Rate 67 66 Pulse Rate [Left Finger] Pulse Rate from SpO2 Sensor 66 67 Respiratory Rate 38 H 23 Respiratory Effort / Characteristics Respiratory Depth Blood Pressure 169/110 H Blood Pressure [Right Arm] Blood Pressure Mean 129 Blood Pressure Mean [Right Arm] Blood Pressure Position [Right Arm] Pulse Oximetry 100 100 Oxygen Delivery Method Sepsis Recent Fever Within 48 Hours Sepsis New/Unexplained Change in Mental Status Sepsis Action Taken by Nursing 08/03/22 01:00 08/03/22 01:10 08/03/22 01:20 Pulse Rate 66 63 59 L Pulse Rate [Left Finger] Pulse Rate from SpO2 Sensor 66 63 59 L Respiratory Rate 28 H 18 23 Respiratory Effort / Characteristics Respiratory Depth Blood Pressure Blood Pressure [Right Arm] Blood Pressure Mean Blood Pressure Mean [Right Arm] Blood Pressure Position [Right Arm] Pulse Oximetry 99 98 98 Oxygen Delivery Method Sepsis Recent Fever Within 48 Hours Sepsis New/Unexplained Change in Mental Status Sepsis Action Taken by Nursing 08/03/22 01:30 08/03/22 01:30 08/03/22 01:40 Pulse Rate 57 L 60 Pulse Rate [Left Finger] Pulse Rate from SpO2 Sensor 57 L 59 L Respiratory Rate 23 18 Respiratory Effort / Characteristics Respiratory Depth Blood Pressure 169/98 H Blood Pressure [Right Arm] Blood Pressure Mean 121 Blood Pressure Mean [Right Arm] Blood Pressure Position [Right Arm] Pulse Oximetry 98 98 Oxygen Delivery Method Sepsis Recent Fever Within 48 Hours Sepsis New/Unexplained Change in Mental Status Sepsis Action Taken by Nursing 08/03/22 01:50 08/03/22 02:10 08/03/22 02:20 Pulse Rate 67 75 85 Pulse Rate [Left Finger] Pulse Rate from SpO2 Sensor 67 74 81 Respiratory Rate 26 H 30 H 31 H Respiratory Effort / Characteristics Respiratory Depth Blood Pressure Blood Pressure [Right Arm] Blood Pressure Mean Blood Pressure Mean [Right Arm] Blood Pressure Position [Right Arm] Pulse Oximetry 98 97 97 Oxygen Delivery Method Sepsis Recent Fever Within 48 Hours Sepsis New/Unexplained Change in Mental Status Sepsis Action Taken by Nursing 08/03/22 02:30 08/03/22 02:40 08/03/22 02:50 Pulse Rate 91 H 82 70 Pulse Rate [Left Finger] Pulse Rate from SpO2 Sensor 83 82 70 Respiratory Rate 26 H 17 31 H Respiratory Effort / Characteristics Respiratory Depth Blood Pressure Blood Pressure [Right Arm] Blood Pressure Mean Blood Pressure Mean [Right Arm] Blood Pressure Position [Right Arm] Pulse Oximetry 94 97 96 Oxygen Delivery Method Sepsis Recent Fever Within 48 Hours Sepsis New/Unexplained Change in Mental Status Sepsis Action Taken by Nursing 08/03/22 03:00 08/03/22 03:10 08/03/22 03:20 Pulse Rate 76 78 80 Pulse Rate [Left Finger] Pulse Rate from SpO2 Sensor 75 84 81 Respiratory Rate 34 H 17 23 Respiratory Effort / Characteristics Respiratory Depth Blood Pressure Blood Pressure [Right Arm] Blood Pressure Mean Blood Pressure Mean [Right Arm] Blood Pressure Position [Right Arm] Pulse Oximetry 97 95 94 Oxygen Delivery Method Sepsis Recent Fever Within 48 Hours Sepsis New/Unexplained Change in Mental Status Sepsis Action Taken by Nursing 08/03/22 03:30 08/03/22 03:40 08/03/22 03:50 Pulse Rate 73 58 L 53 L Pulse Rate [Left Finger] Pulse Rate from SpO2 Sensor 73 62 54 L Respiratory Rate 20 19 20 Respiratory Effort / Characteristics Respiratory Depth Blood Pressure Blood Pressure [Right Arm] Blood Pressure Mean Blood Pressure Mean [Right Arm] Blood Pressure Position [Right Arm] Pulse Oximetry 94 95 95 Oxygen Delivery Method Sepsis Recent Fever Within 48 Hours Sepsis New/Unexplained Change in Mental Status Sepsis Action Taken by Nursing 08/03/22 04:00 08/03/22 06:00 08/03/22 06:58 Pulse Rate Pulse Rate [Left Finger] 55 L Pulse Rate from SpO2 Sensor Respiratory Rate 17 Respiratory Effort / Characteristics Non-Labored Respiratory Depth Normal Blood Pressure Blood Pressure [Right Arm] 161/102 H Blood Pressure Mean Blood Pressure Mean [Right Arm] 121 Blood Pressure Position [Right Arm] Sitting Pulse Oximetry 97 Oxygen Delivery Method Room Air Room Air Sepsis Recent Fever Within 48 Hours Sepsis New/Unexplained Change in Mental Status Sepsis Action Taken by Nursing GENERAL: alert, well appearing, well nourished, no distress, non-toxic EYE EXAM: normal conjunctiva, PERRL and EOM's grossly intact OROPHARYNX: no exudate, no erythema, lips, buccal mucosa, and tongue normal and mucous membranes are moist NECK: supple, no nuchal rigidity, no adenopathy, non-tender LUNGS: Clear to auscultation. Normal chest wall mechanics, no w/r/r HEART: no murmurs, S1 normal and S2 normal ABDOMEN: abdomen soft, periumbilical tenderness with palpation, normo-active bowel sounds, no masses, no rebound or guarding. BACK: Back is symmetrical on inspection and there is no deformity, no midline tenderness, no CVA tenderness. SKIN: no rashes and no bruising UPPER EXTREMITIES: upper extremities are grossly normal. FROM, nml pulses b/l. LOWER EXTREMITIES: No pitting edema. FROM, nml pulses b/l. NEURO EXAM: Normal sensorium, cranial nerves II-XII grossly intact, normal speech, no gross weakness of arms, no gross weakness of legs. Gross sensation intact. Course Course 0332: Pt still with pain although it's improved. Nausea improved. 0500: Pain and nausea improved, patient feels more comfortable 0722: Patient states symptoms returned when he began p.o. challenge. Now has worsening pain and nausea again. Administered Medications Discontinued Medications Aspirin (Aspirin 81 Mg Ectab) 81 mg PO [facility] Stop: 09/03/22 08:59 Last Admin: 08/04/22 07:50 Dose: 81 mg Documented By: TATUM Dicyclomine HCl (Dicyclomine Hcl 10 Mg Cap) 10 mg PO NOW ONE Stop: 08/03/22 02:51 Last Admin: 08/03/22 03:13 Dose: 10 mg Documented By: LAUREN Diphenhydramine HCl (Diphenhydramine 50 Mg/Ml Vial) 25 mg IV NOW STA Stop: 08/03/22 05:04 Last Admin: 08/03/22 05:34 Dose: 25 mg Documented By: LAUREN Enoxaparin Sodium (Enoxaparin Inj 40 Mg/0.4 Ml Syr) 40 mg SQ QAM ALYCIA Stop: 09/03/22 08:59 Last Admin: 08/04/22 07:50 Dose: Not Given Documented By: TATUM Famotidine (Famotidine 40 Mg Tablet) 40 mg PO HS ALYCIA Stop: 09/02/22 20:59 Last Admin: 08/03/22 21:19 Dose: 40 mg Documented By: LAVELL Hydralazine HCl (Hydralazine Hcl 20 Mg/Ml Vial) 10 mg IV NOW STA Stop: 08/03/22 12:03 Last Admin: 08/03/22 12:34 Dose: 10 mg Documented By: [id number] Sodium Chloride (Nss 1000ml) 1,000 mls @ 125 mls/hr IV .Q8H ALYCIA Stop: 09/02/22 00:59 Last Admin: 08/04/22 10:40 Dose: 125 mls/hr Documented By: Infusion: 08/04/22 10:30 Dose: 125 mls/hr Documented By: Admin: 08/04/22 02:30 Dose: 125 mls/hr Documented By: Infusion: 08/04/22 02:24 Dose: 125 mls/hr Documented By: Admin: 08/03/22 18:24 Dose: 125 mls/hr Documented By: Infusion: 08/03/22 12:36 Dose: 0 mls/hr Documented By: [id number] Admin: 08/03/22 10:41 Dose: Not Given Documented By: Admin: 08/03/22 01:06 Dose: 125 mls/hr Documented By: LAUREN Acetaminophen (Ofirmev) 1,000 mg in 100 mls @ 400 mls/hr IV NOW STA Stop: 08/03/22 03:04 Last Infusion: 08/03/22 03:30 Dose: 0 mls/hr Documented By: Admin: 08/03/22 03:12 Dose: 400 mls/hr Documented By: LAUREN Acetaminophen (Ofirmev) 1,000 mg in 100 mls @ 400 mls/hr IV NOW STA Stop: 08/03/22 07:54 Last Infusion: 08/03/22 08:19 Dose: 0 mls/hr Documented By: Admin: 08/03/22 08:04 Dose: 400 mls/hr Documented By: YADY Acetaminophen (Ofirmev) 1,000 mg in 100 mls @ 400 mls/hr IV Q8H ALYCIA Stop: 08/06/22 15:59 Last Admin: 08/04/22 07:49 Dose: Not Given Documented By: Infusion: 08/04/22 00:08 Dose: 0 mls/hr Documented By: Admin: 08/03/22 23:44 Dose: 400 mls/hr Documented By: Admin: 08/03/22 17:20 Dose: Not Given Documented By: TAMMY Ioversol (Optiray 350 100ml) 100 ml IV ONCE ONE Stop: 08/03/22 02:12 Last Admin: 08/03/22 02:12 Dose: 87 ml Documented By: NELSON Isosorbide Mononitrate (Isosorbide [place] Extended Rel 60 Mg Tabcr) 60 mg PO DAILY ALYCIA Stop: 09/03/22 08:59 Last Admin: 08/04/22 07:49 Dose: Not Given Documented By: TATUM Ketorolac Tromethamine (Ketorolac Tromethamine 15 Mg/Ml Vial) 10 mg IV NOW ONE Stop: 08/03/22 02:51 Last Admin: 08/03/22 03:13 Dose: 10 mg Documented By: LAUREN Ketorolac Tromethamine (Ketorolac Tromethamine 15 Mg/Ml Vial) 15 mg IV NOW STA Stop: 08/03/22 12:03 Last Admin: 08/03/22 12:34 Dose: 15 mg Documented By: [id number] Ketorolac Tromethamine (Ketorolac 30 Mg/Ml Vial) Confirm Administered Dose 30 mg .ROUTE .STK-MED ONE Stop: 08/03/22 00:57 Last Admin: 08/04/22 11:49 Dose: Not Given Documented By: TATUM Metoclopramide HCl (Metoclopramide Hcl Inj 5 Mg/Ml 2 Ml Vial) 5 mg IV ONE ONE Stop: 08/03/22 05:04 Last Admin: 08/03/22 05:35 Dose: 5 mg Documented By: LAUREN Metoprolol Succinate (Metoprolol Succ 25mg Ext Rel Tab) 25 mg PO DAILY ALYCIA Stop: 09/03/22 08:59 Last Admin: 08/04/22 07:49 Dose: 25 mg Documented By: TATUM Miscellaneous (Order Awaiting Action [Ticagrelor 60mg]) 1 each N/A QS ALYCIA Stop: 09/02/22 15:59 Last Admin: 08/04/22 07:49 Dose: Not Given Documented By: Admin: 08/04/22 00:09 Dose: Not Given Documented By: Admin: 08/03/22 18:25 Dose: Not Given Documented By: MG Morphine Sulfate (Morphine Sulfate 4 Mg/Ml 1 Ml Carp\Vial) 4 mg IV NOW STA Stop: 08/03/22 00:58 Last Admin: 08/03/22 01:05 Dose: 4 mg Documented By: LAUREN Morphine Sulfate (Morphine Sulfate 4 Mg/Ml 1 Ml Carp\Vial) 4 mg IV NOW STA Stop: 08/03/22 01:47 Last Admin: 08/03/22 01:55 Dose: 4 mg Documented By: LAUREN Morphine Sulfate (Morphine Sulfate 4 Mg/Ml 1 Ml Carp\Vial) 4 mg IV NOW STA Stop: 08/03/22 08:24 Last Admin: 08/03/22 08:47 Dose: 4 mg Documented By: YADY Ondansetron HCl (Ondansetron Inj 2 Mg/Ml 2 Ml Vial) 4 mg IV NOW STA Stop: 08/03/22 00:58 Last Admin: 08/03/22 01:06 Dose: 4 mg Documented By: LAUREN Ondansetron HCl (Ondansetron Inj 2 Mg/Ml 2 Ml Vial) 4 mg IV NOW STA Stop: 08/03/22 07:41 Last Admin: 08/03/22 08:04 Dose: 4 mg Documented By: YADY Ondansetron HCl (Ondansetron Inj 2 Mg/Ml 2 Ml Vial) Confirm Administered Dose 4 mg .ROUTE .STK-MED ONE Stop: 08/03/22 00:57 Last Admin: 08/04/22 11:49 Dose: Not Given Documented By: TATUM Oxycodone HCl (Oxycodone Hcl Ir 5 Mg Tab (Immediate Release)) 5 mg PO NOW STA Stop: 08/03/22 12:03 Last Admin: 08/03/22 12:35 Dose: 5 mg Documented By: [id number] Pantoprazole Sodium (Pantoprazole 40 Mg Tab) [facility] [place] Stop: 09/03/22 08:59 Last Admin: 08/04/22 07:49 Dose: 40 mg Documented By: TATUM Sertraline HCl (Sertraline Hcl 50 Mg Tablet) 50 mg [facility] [place] Stop: 09/03/22 08:59 Last Admin: 08/04/22 07:49 Dose: 50 mg Documented By: CC Medical Decision Making Differential Diagnosis Differential diagnoses includes but is not limited to gastritis, peptic ulcer disease, GERD, gallbladder disease, pancreatitis, small bowel obstruction, acute coronary syndrome, pericarditis, ischemic bowel, irritable bowel disease, irritable bowel syndrome, appendicitis, diverticulitis, malignancy, hernia, urinary tract infection, torsion, [/ectopic (if female)], perforation, trauma, infectious. Medical Records Attestation: I reviewed the patient's medical records. Home Medications Current Medication List: was personally reviewed by me Laboratory Data Attestation: I reviewed the patient's lab results. Result diagrams: 08/04/22 07:29 08/04/22 07:29 Lab Results 08/03/22 08/03/22 08/03/22 Range/Units 00:58 00:58 00:58 WBC 9.67 (4.8-10.8) K/ul RBC 4.41 L (4.63-6.08) M/uL Hgb 15.1 (14.0-18.0) g/dl Hct 41.4 (40.1-51.0) % MCV 93.9 (80.0-100.0) fL MCH 34.2 H (25.0-34.0) pg MCHC 36.5 H (32.0-36.0) g/dL RDW Std Deviation 45.1 (36.4-46.3) fL RDW Coeff of [place] 13.2 (11.5-14.5) % Plt Count 315 (130-400) K/uL MPV 8.9 L (9.4-12.4) fL Immature Gran % (Auto) 0.3 % Neut % (Auto) 74.6 % Lymph % (Auto) 17.9 % [place] % (Auto) 5.5 % Eos % (Auto) 1.0 % Baso % (Auto) 0.7 % Neut # (Auto) 7.21 H (1.4-6.5) K/uL Lymph # (Auto) 1.73 (1.2-3.4) K/uL [place] # (Auto) 0.53 (0.24-0.82) K/uL Eos # (Auto) 0.10 (0-0.50) K/uL Baso # (Auto) 0.07 (0-0.2) K/uL Immature Gran # (Auto) 0.03 H (0.00-0.02) K/uL Sodium 135 L (136-145) mmol/L Potassium 3.7 (3.5-5.1) mmol/L Chloride 103 (98-107) mmol/L Carbon Dioxide 21 (21-32) mmol/L Anion Gap 11 (3-11) BUN 12 (6-23) mg/dl Creatinine 1.13 (0.6-1.4) mg/dl Est Cr Clr Drug Dosing 64.2 ml/min Est GFR ( Amer) 86.1 ml/min Est GFR (Non-Af Amer) 74.3 ml/min BUN/Creatinine Ratio 10.6 (10-20) Glucose 120 H (70-99(Fasting)) mg/dl Lactate 1.9 (0.4-2.0) mmol/L Calcium 9.4 (8.5-10.1) mg/dl Magnesium 1.9 (1.7-2.4) mg/dl Total Bilirubin 0.6 (0.2-1.0) mg/dl AST 17 (13-39) U/L ALT 13 (7-52) U/L Alkaline Phosphatase 72 (34-104) U/L Troponin I High Sens 9.7 (0-20) pg/ml Total Protein 7.4 (6.0-8.3) gm/dl Albumin 4.3 (3.4-5.0) gm/dl Globulin 3.1 (2.5-4.0) gm/dl Albumin/Globulin Ratio 1.4 (0.9-2) Lipase 18 (11-82) U/L Urine Color Urine Appearance (Clear) Urine pH (4.5-7.5) Ur Specific [place] (1.000-1.030) Urine Protein (Negative) Urine Glucose (UA) (Negative) Urine Ketones (Negative) Urine Blood (Negative) Urine Nitrite (Negative) Urine Bilirubin (Negative) Urine Urobilinogen (Negative) Ur Leukocyte Esterase (Negative) Urine WBC (Auto) (0-5) /hpf Urine RBC (Auto) (0-4) /hpf U Hyaline Cast (Auto) (0-5) /lpf U Epithel Cells (Auto) (0-5) /lpf Urine Bacteria (Auto) (Negative) 08/03/22 Range/Units 07:20 WBC (4.8-10.8) K/ul RBC (4.63-6.08) M/uL Hgb (14.0-18.0) g/dl Hct (40.1-51.0) % MCV (80.0-100.0) fL MCH (25.0-34.0) pg MCHC (32.0-36.0) g/dL RDW Std Deviation (36.4-46.3) fL RDW Coeff of [place] (11.5-14.5) % Plt Count (130-400) K/uL MPV (9.4-12.4) fL Immature Gran % (Auto) % Neut % (Auto) % Lymph % (Auto) % [place] % (Auto) % Eos % (Auto) % Baso % (Auto) % Neut # (Auto) (1.4-6.5) K/uL Lymph # (Auto) (1.2-3.4) K/uL [place] # (Auto) (0.24-0.82) K/uL Eos # (Auto) (0-0.50) K/uL Baso # (Auto) (0-0.2) K/uL Immature Gran # (Auto) (0.00-0.02) K/uL Sodium (136-145) mmol/L Potassium (3.5-5.1) mmol/L Chloride (98-107) mmol/L Carbon Dioxide (21-32) mmol/L Anion Gap (3-11) BUN (6-23) mg/dl Creatinine (0.6-1.4) mg/dl Est Cr Clr Drug Dosing ml/min Est GFR ( Amer) ml/min Est GFR (Non-Af Amer) ml/min BUN/Creatinine Ratio (10-20) Glucose (70-99(Fasting)) mg/dl Lactate (0.4-2.0) mmol/L Calcium (8.5-10.1) mg/dl Magnesium (1.7-2.4) mg/dl Total Bilirubin (0.2-1.0) mg/dl AST (13-39) U/L ALT (7-52) U/L Alkaline Phosphatase (34-104) U/L Troponin I High Sens (0-20) pg/ml Total Protein (6.0-8.3) gm/dl Albumin (3.4-5.0) gm/dl Globulin (2.5-4.0) gm/dl Albumin/Globulin Ratio (0.9-2) Lipase (11-82) U/L Urine Color Yellow Urine Appearance Clear (Clear) Urine pH 6.0 (4.5-7.5) Ur Specific [place] > 1.045 H (1.000-1.030) Urine Protein Negative (Negative) Urine Glucose (UA) Negative (Negative) Urine Ketones Negative (Negative) Urine Blood Trace H (Negative) Urine Nitrite Negative (Negative) Urine Bilirubin Negative (Negative) Urine Urobilinogen Negative (Negative) Ur Leukocyte Esterase Negative (Negative) Urine WBC (Auto) 1-5 (0-5) /hpf Urine RBC (Auto) 0-4 (0-4) /hpf U Hyaline Cast (Auto) 1-5 (0-5) /lpf U Epithel Cells (Auto) >30 H (0-5) /lpf Urine Bacteria (Auto) 1+ H (Negative) Imaging Data Radiologist's Impression: Abdomen/Pelvis CT 08/03/22 00:57 CT abd pelvis IV con only CLINICAL HISTORY: periumbilical abd pain TECHNIQUE: Helical axial images of the abdomen and pelvis were obtained and displayed. Automated dose lowering techniques and/or adjustment according to patient size were utilized for this exam. This exam was performed with intravenous contrast. CT DOSE: 288.99 mGy.cm COMPARISON: Comparison is made to CT abdomen pelvis 09/21/2021 FINDINGS: Lower chest: Bibasilar atelectasis versus scarring is seen. Liver: Unremarkable. No focal lesions are seen. Gallbladder and biliary tree: Patient is status post cholecystectomy. No intra- or extrahepatic biliary ductal dilation. Pancreas: There is an 11 mm hypodense lesion in the head of the pancreas, new from prior exam. The remainder of the pancreas is unremarkable. Spleen: Splenule is incidentally noted. Adrenals: Unremarkable. Kidneys and ureters: 16 mm cyst is in the right kidney. Bladder: Unremarkable. Reproductive organs: Unremarkable. Bowel: A hiatal hernia is seen. The appendix is normal. Lymph nodes Retroperitoneal: Unremarkable. Pelvic: Unremarkable. Mesenteric: Unremarkable. Peritoneum: Normal. Vessels: Atherosclerotic calcifications are seen. Abdominal wall: Unremarkable. Bones: Unremarkable. IMPRESSION: 11 mm hypodense lesion in the head of the pancreas may represent edema or scarring in this patient with history of pancreatitis. IPMN underlying lesion, or developing necrosis cannot be excluded. Continued follow-up is recommended. ACT 112: Negative or not required by law. Electronically signed by: Vadim Cunha M.D. 08/03/2022 9:[address] abdomen pelvis with contrast: No CT evidence for acute pancreatitis. In the region of the head of the pancreas a low attenuating focus measures 1 cm which is new finding compared to the prior study. Differential would include a focus of edema or scarring. An underlying pancreatic mass is not excluded. Follow-up is recommended to ensure stability. Duodenal diverticulum incidentally noted. Status postcholecystectomy. No evidence for appendicitis. The large bowel is normal. Radiologist: Vadim Khan MD ECG Data Attestation: I personally reviewed and interpreted this ECG as follows: Indication: + abdominal pain Rate (beats per minute): 60 Rhythm: + normal sinus ECG Intervals/blocks: + Normal QRS and + Normal QT ECG [place]: + Normal ECG ST segments: + Normal ST segments MDM Narrative An order was placed for continuous cardiac monitoring. The monitor shows a rate of _92_ with _normal sinus__ rhythm. This is a 51-year-old male presents due to recurrent severe periumbilical abdominal pain. Patient with recent admission for pancreatitis although stated this pain felt different. He was afebrile and hemodynamically stable on arrival despite significant pain, nausea and vomiting. Patient given several doses of pain medication including IV narcotics as well as other nonnarcotic pain medication and multiple doses of nausea medications. Patient's lab reassuring including normal lipase and negative lactic acid. No significant leukocytosis. CT of the patient's abdomen and pelvis also reassuring with no obvious etiology of his pain noted. Given persistent pain despite multiple doses of medications and inability to tolerate anything by mouth, case was discussed with the hospitalist team for additional evaluation and management. Impression & Plan Abdominal pain I was not involved in the care of this patient- Dr. Vishal Nolen MD. Discharge Plan Visit Data Patient Disposition: Admitted As Inpatient Discharge Instructions Interventions: ED Discharge Assessment Last Done: 08/03/22 13:14
[2022-08-03] MEDS ORDERED: diphenhydrAMINE 50 MG/ML VIAL IV STA (05:03)
[2022-08-03] MEDS ORDERED: METOCLOPRAMIDE HCL INJ 5 MG/ML 2 ML VIAL IV ONE (05:03)
[2022-08-03 07:49] LABS: Appearance Urine Clear (Clear); Bacteria Urine Automated 1+ (Negative); Bilirubin Urine Negative (Negative); Blood Urine Trace (Negative); Color Urine Yellow; Epithelial Cell Urine Auto >30 /lpf (0-5); Glucose Urine UA Negative (Negative); Ketones Urine Negative (Negative); Leukocyte Esterase Urine Negative (Negative); Nitrite Urine Negative (Negative); Protein Urine Negative (Negative); RBC Urine Automated 0-4 /hpf (0-4); Specific Gravity Urine > 1.045 (1.000-1.030); Urobilinogen Urine Negative (Negative)
--- NOTE | 2022-08-03 09:33 | History & Physical Report ---
Date of Service August 03, 2022 Assessment & Plan (1) Abdominal pain, periumbilical: Plan: Recent admission (one week ago) for similar symptoms but lipase mildly elevated - diagnosed with acute pancreatitis and recommended to have further work-up as an outpatient with EUS +/- ERCP. Presents today with recurrent pain, similar to last week but more severe. Not responding to multiple doses of morphine in the ED so referred for admission. Lipase today is normal but CT with 11 mm hypodense lesion in the head of the pancreas - ?edema, ?scarring, ?developing necrosis - Admit for further work-up and pain control - Consult GI for additional recommendations - Continue anti-emetics - NPO for now due to ongoing pain/nausea - Follow labs (2) Pancreatitis: (3) CAD (coronary artery disease): (4) RADHA (generalized anxiety disorder): (5) HLD (hyperlipidemia): (6) GERD (gastroesophageal reflux disease): (7) Depression: (8) Lesion of pancreas: Plan Continue other home medications as appropriate Pt seen and reviewed with collaborating physician, Dr. Adkins. Plan of care discussed and as outlined above. Code status: Full code DVT Prophylaxis: Bartolome Caldwell PA-C History of Present Illness Chief Complaint: Abdominal Pain Primary Care Provider: Wade Bragg MD This is a 51 y/o male with a PMH of CAD w/ hx prior IN x 2, PCI with stents, prior acute pancreatitis s/p ERCP with stent placement, GERD, dyslipidemia, anxiety, and Casanova esophagus who presents to the ED today with chest pain. Pt has a complex cardiac history with last visit to cardiology in February 2021. Most recent PCI to OM1 in December 2020 when pt presented with syncope and was found to have transient Mobitz 2 heart block. In Aug 2021, pt was admitted with cholecystitis and gallstone pancreatitis, underwent lap rosas and ERCP with biliary stent placement on 08/22/21. Readmitted in Sep 2021 with acute pancreatitis and underwent EGD/ERCP with stent removal and balloon extraction of residual choledocholithiasis. Brief readmission later in Sep due to recurrent pain. Pt had COVID in Oct 2021, which was treated outpatient. He overall did well until last week when he was admitted with abdominal pain and chest pain. Cardiac w/u was negative. Abdominal pain was attributed to mild pancreatitis with elevation of lipase to just over 100. GI symptoms resolved and pt was to f/u for EUS as an outpatient. Pt reports that he felt well until last night when he had the abrupt onset of sharp periumbilical pain around 9 pm. Does not recall a specific inciting event. Shortly after the pain started, he developed nausea with emesis of undigested food followed by ongoing dry heaves. In the ED he has received multiple doses of morphine and Zofran with minimal relief of symptoms. Any time he attempts oral intake the pain worsens and he develops dry heaves so he has been referred for admission. Pt reports the pain is similar in character to prior pancreatitis pain but prior pain was lower in the abdomen. It does not radiate. He reports associated chills and sweats but no documented fevers. He has been fatigued over the past week but was able to go back to work after discharge. He denies chest pain, palpitations, SOB, cough, URI symptoms, CERDA, dizziness, dark urine, change in bowel habits, melena, hematochezia, heartburn/indigestion, or specific food intolerances. Allergies Allergy/AdvReac Type Severity Reaction Status Date / Time No Known Allergies Allergy Verified 10/19/21 12:41 Home Medications Medication Instructions Recorded Confirmed Type aspirin 81 mg tablet,delayed 81 mg PO QAM 10/06/18 08/03/22 History release sertraline 50 mg tablet (Zoloft) 50 mg PO QAM 10/06/18 08/03/22 History nitroglycerin 0.4 mg sublingual 0.4 mg sublingual UD PRN Chest Pain 10/07/18 08/03/22 History tablet (Nitrostat) dicyclomine 10 mg capsule 10 mg PO BID PRN Abdominal Pain 12/06/20 08/03/22 History ezetimibe 10 mg tablet 10 mg PO QAM 12/06/20 08/03/22 History famotidine 40 mg tablet 40 mg PO HS PRN Acid Reflux 12/06/20 08/03/22 History isosorbide mononitrate 60 mg 60 mg PO DAILY 12/06/20 08/03/22 History tablet,extended release 24 hr magnesium oxide 400 mg PO QAM 12/06/20 08/03/22 History pantoprazole 40 mg tablet,delayed 40 mg PO QAM PRN Acid Reflux 08/20/21 08/03/22 History release metoprolol succinate 25 mg 25 mg PO DAILY 07/27/22 08/03/22 History tablet,extended release 24 hr rosuvastatin 40 mg tablet 40 mg PO DAILY 07/27/22 08/03/22 History ticagrelor 90 mg tablet (Brilinta) 60 mg PO BID 30 days #60 tabs 07/28/22 08/03/22 Rx Past Med/Surg History Medical History Acute pancreatitis Barretts esophagus CAD (coronary artery disease) 2017-RCA stent x 2 07/2020-STEMI, s/p PCI to left circumflex with 2 MELLY. Post procedure complicated by V. fib arrest requiring defibrillation. 12/2020-NSTEMI s/p 3 Xience MELLY to the distal aspect of prior stent of the left posterior lateral branch vessel COVID-29 Oct 2021 Depression RADHA (generalized anxiety disorder) GERD (gastroesophageal reflux disease) Grade II diastolic dysfunction HLD (hyperlipidemia) Mobitz type 2 second degree atrioventricular block Splenic infarct Tobacco abuse Surgical History History of endoscopic retrograde cholangiopancreatography x2 (08/31, 09/30) History of vasectomy Hx laparoscopic cholecystectomy (08/22/21) Laparoscopic Cholecystectomy Dr. Davidson 08/22/2021 Family History Mother Gallbladder disease Sister Gallbladder disease Other Diabetes Stroke Denies family history of Pancreatic disease Social History Smoking Status: Current every day smoker Tobacco Type: Cigarettes Years Smoked: 31; Cigarettes Per Day: 2; Second Hand Exposure: No; Hx Alcohol Use: No Hx Substance Use: No Preferred Language: Romanian Communication Ability: Effective Skip Tender Required: No Beliefs That Will Affect Care: None marital status: Single Current Living Situation: Alone current occupational status: employed Feels Safe at Home: Yes Assistive Devices: None Review of Systems Review of Systems: All systems reviewed & are unremarkable except as noted in HPI & below Constitutional: + chills, + sweats and + fatigue; no fever Eyes: no diplopia and no worsening vision Ear, Nose, Mouth, Throat: no nasal congestion, no nasal discharge, no sore throat and no dysphagia Respiratory: no cough and no dyspnea Cardiovascular: no chest pain, no palpitations, no syncope and no edema Gastrointestinal: as per Subjective / HPI Genitourinary: no dysuria or no hematuria Musculoskeletal: no back pain and no neck pain Integumentary: no yellowing of the skin Neurologic: no generalized weakness, no dizziness, no headache(s) and no confusion Physical Exam Constitutional: well developed and well nourished; + uncomfortable Eyes: + anicteric sclerae Neck: trachea midline Respiratory: no respiratory distress and no labored breathing Auscultation: lungs clear to auscultation bilaterally; no rales, no rhonchi and no wheezes Cardiovascular: Rate/Rhythm: regular rhythm and + bradycardic Vessels: dorsalis pedis pulses present and radial pulses present Extremities: no pedal edema Gastrointestinal (Abdomen): Inspection/Auscultation: normal bowel sounds; abdomen not distended Percussion/Palpation: + abdomen tender (diffusely but worse in periumbilical area and LUQ) and abdomen soft; no guarding Musculoskeletal: Head/Neck/Chest: normocephalic, head atraumatic and neck supple Skin: no jaundice Neurologic: moves all extremities; no focal motor deficits and not confused Psychiatric: A+Ox3, euthymic affect Results & Data Results & Data ([facility]) Vital Signs (Past 12 Hours) Vital Signs Pulse Pulse Resp BP BP Pulse Ox O2 Del Method 08/03/22 06:58 55 L 17 161/102 H 97 08/03/22 06:00 Room Air 08/03/22 04:00 Room Air 08/03/22 03:50 53 L 20 95 08/03/22 03:40 58 L 19 95 08/03/22 03:30 73 20 94 08/03/22 03:20 80 23 94 08/03/22 03:10 78 17 95 08/03/22 03:00 76 34 H 97 08/03/22 02:50 70 31 H 96 08/03/22 02:40 82 17 97 08/03/22 02:30 91 H 26 H 94 08/03/22 02:20 85 31 H 97 08/03/22 02:10 75 30 H 97 08/03/22 01:50 67 26 H 98 08/03/22 01:40 60 18 98 08/03/22 01:30 57 L 23 98 08/03/22 01:30 169/98 H 08/03/22 01:20 59 L 23 98 08/03/22 01:10 63 18 98 08/03/22 01:00 66 28 H 99 08/03/22 01:00 169/110 H 08/03/22 00:50 66 23 100 08/03/22 00:48 67 38 H 100 08/03/22 00:57 Room Air 08/03/22 00:32 74 21 170/120 H 99 Room Air Laboratory Results Laboratory Results - last 24 hr 08/03/22 08/03/22 08/03/22 00:58 00:58 00:58 WBC 9.67 RBC 4.41 L Hgb 15.1 Hct 41.4 MCV 93.9 MCH 34.2 H MCHC 36.5 H RDW Std Deviation 45.1 RDW Coeff of Mckinley 13.2 Plt Count 315 MPV 8.9 L Immature Gran % (Auto) 0.3 Neut % (Auto) 74.6 Lymph % (Auto) 17.9 Irwin % (Auto) 5.5 Eos % (Auto) 1.0 Baso % (Auto) 0.7 Neut # (Auto) 7.21 H Lymph # (Auto) 1.73 Irwin # (Auto) 0.53 Eos # (Auto) 0.10 Baso # (Auto) 0.07 Immature Gran # (Auto) 0.03 H Sodium 135 L Potassium 3.7 Chloride 103 Carbon Dioxide 21 Anion Gap 11 BUN 12 Creatinine 1.13 Est Cr Clr Drug Dosing 64.2 Est GFR ( Amer) 86.1 Est GFR (Non-Af Amer) 74.3 BUN/Creatinine Ratio 10.6 Glucose 120 H Lactate 1.9 Calcium 9.4 Magnesium 1.9 Total Bilirubin 0.6 AST 17 ALT 13 Alkaline Phosphatase 72 Troponin I High Sens 9.7 Total Protein 7.4 Albumin 4.3 Globulin 3.1 Albumin/Globulin Ratio 1.4 Lipase 18 Urine Color Urine Appearance Urine pH Ur Specific [place] Urine Protein Urine Glucose (UA) Urine Ketones Urine Blood Urine Nitrite Urine Bilirubin Urine Urobilinogen Ur Leukocyte Esterase Urine WBC (Auto) Urine RBC (Auto) U Hyaline Cast (Auto) U Epithel Cells (Auto) Urine Bacteria (Auto) SARS-CoV-2, RNA, NAAT 08/03/22 08/03/22 07:20 Unknown WBC RBC Hgb Hct MCV MCH MCHC RDW Std Deviation RDW Coeff of Mckinley Plt Count MPV Immature Gran % (Auto) Neut % (Auto) Lymph % (Auto) Irwin % (Auto) Eos % (Auto) Baso % (Auto) Neut # (Auto) Lymph # (Auto) Irwin # (Auto) Eos # (Auto) Baso # (Auto) Immature Gran # (Auto) Sodium Potassium Chloride Carbon Dioxide Anion Gap BUN Creatinine Est Cr Clr Drug Dosing Est GFR ( Amer) Est GFR (Non-Af Amer) BUN/Creatinine Ratio Glucose Lactate Calcium Magnesium Total Bilirubin AST ALT Alkaline Phosphatase Troponin I High Sens Total Protein Albumin Globulin Albumin/Globulin Ratio Lipase Urine Color Yellow Urine Appearance Clear Urine pH 6.0 Ur Specific [place] > 1.045 H Urine Protein Negative Urine Glucose (UA) Negative Urine Ketones Negative Urine Blood Trace H Urine Nitrite Negative Urine Bilirubin Negative Urine Urobilinogen Negative Ur Leukocyte Esterase Negative Urine WBC (Auto) 1-5 Urine RBC (Auto) 0-4 U Hyaline Cast (Auto) 1-5 U Epithel Cells (Auto) >30 H Urine Bacteria (Auto) 1+ H SARS-CoV-2, RNA, NAAT Pending Diagnostic Findings CT Abd/Pel 08/03/22 - IMPRESSION: 11 mm hypodense lesion in the head of the pancreas may represent edema or scarring in this patient with history of pancreatitis. IPMN underlying lesion, or developing necrosis cannot be excluded. Continued follow-up is recommended. Medications Administered Sodium Chloride (Nss 1000ml) 1,000 mls @ 125 mls/hr IV .Q8H ALYCIA Stop: 09/02/22 00:59 Last Admin: 08/03/22 01:06 Dose: 125 mls/hr Documented By: LAUREN Discontinued Medications Dicyclomine HCl (Dicyclomine Hcl 10 Mg Cap) 10 mg PO NOW ONE Stop: 08/03/22 02:51 Last Admin: 08/03/22 03:13 Dose: 10 mg Documented By: LAUREN Diphenhydramine HCl (Diphenhydramine 50 Mg/Ml Vial) 25 mg IV NOW STA Stop: 08/03/22 05:04 Last Admin: 08/03/22 05:34 Dose: 25 mg Documented By: LAUREN Acetaminophen (Ofirmev) 1,000 mg in 100 mls @ 400 mls/hr IV NOW STA Stop: 08/03/22 03:04 Last Infusion: 08/03/22 03:30 Dose: 0 mls/hr Documented By: Admin: 08/03/22 03:12 Dose: 400 mls/hr Documented By: LAUREN Acetaminophen (Ofirmev) 1,000 mg in 100 mls @ 400 mls/hr IV NOW STA Stop: 08/03/22 07:54 Last Infusion: 08/03/22 08:19 Dose: 0 mls/hr Documented By: Admin: 08/03/22 08:04 Dose: 400 mls/hr Documented By: YADY Ioversol (Optiray 350 100ml) 100 ml IV ONCE ONE Stop: 08/03/22 02:12 Last Admin: 08/03/22 02:12 Dose: 87 ml Documented By: NELSON Ketorolac Tromethamine (Ketorolac Tromethamine 15 Mg/Ml Vial) 10 mg IV NOW ONE Stop: 08/03/22 02:51 Last Admin: 08/03/22 03:13 Dose: 10 mg Documented By: LAUREN Metoclopramide HCl (Metoclopramide Hcl Inj 5 Mg/Ml 2 Ml Vial) 5 mg IV ONE ONE Stop: 08/03/22 05:04 Last Admin: 08/03/22 05:35 Dose: 5 mg Documented By: LAUREN Morphine Sulfate (Morphine Sulfate 4 Mg/Ml 1 Ml Carp\Vial) 4 mg IV NOW STA Stop: 08/03/22 00:58 Last Admin: 08/03/22 01:05 Dose: 4 mg Documented By: LAUREN Morphine Sulfate (Morphine Sulfate 4 Mg/Ml 1 Ml Carp\Vial) 4 mg IV NOW STA Stop: 08/03/22 01:47 Last Admin: 08/03/22 01:55 Dose: 4 mg Documented By: LAUREN Morphine Sulfate (Morphine Sulfate 4 Mg/Ml 1 Ml Carp\Vial) 4 mg IV NOW STA Stop: 08/03/22 08:24 Last Admin: 08/03/22 08:47 Dose: 4 mg Documented By: YADY Ondansetron HCl (Ondansetron Inj 2 Mg/Ml 2 Ml Vial) 4 mg IV NOW STA Stop: 08/03/22 00:58 Last Admin: 08/03/22 01:06 Dose: 4 mg Documented By: LAUREN Ondansetron HCl (Ondansetron Inj 2 Mg/Ml 2 Ml Vial) 4 mg IV NOW STA Stop: 08/03/22 07:41 Last Admin: 08/03/22 08:04 Dose: 4 mg Documented By: YADY Code Status & VTE Plan VTE Prophylaxis Plan VTE Prophylaxis will be ordered: Yes Supervising Physician Co-Signing Physician Notes I have seen and examined the patient and have discussed the case with the provider above. I agree with the assessment and plan as stated with the following exceptions: 51-year-old man brought in by EMS out of concern for abrupt onset periumbilical pain. He has vomited several times denying hematemesis. He was recently admitted for acute pancreatitis and was discharged the following day as his pain had completely resolved and he was tolerating p.o. Since that time he felt well until just last night. He had no significant medication changes that would have contributed to this. He denies any fevers or chills. He denies any chest pain and this does not feel like his index angina. He has a history of significant coronary artery disease and history of ERCP with biliary and pancreatic duct stents placed last year. He was scheduled for an EUS +/- ERCP in the [facility] gastroenterology clinic in August. On physical exam he is appearing to be in moderate pain. He has been getting morphine and antiemetics since approximately 1:00 this morning. His blood pressure is elevated in the 180s systolic. He is oxygenating well on room air not working to breathe. He is holding his stomach. Lungs are clear to auscultation bilaterally. Cardiac exam reveals S1/S2 without evidence of murmurs rubs or gallops. He has no pitting edema bilaterally. Abdomen is soft nondistended and there is point tenderness in the epigastric region. No guardi ng. Neurologically intact with no gross focal deficits. Work-up in the ER reveals normal CBC, normal BMP with a BUN 12 and creatinine 1.13. Lactate is 1.9. Normal magnesium. Normal LFTs. Highly sensitive troponin is 9.7. Lipase is 18. Urinalysis reveals 1+ bacteria with greater than 30 epithelial cells suggesting contaminated sample. CT of the abdomen pelvis with IV contrast was performed revealing an 11 mm hypodense lesion in the head of the pancreas that may represent edema or scarring in this patient with history of pancreatitis. IPMN underlying lesion or developing necrosis cannot be excluded. EKG reveals normal sinus rhythm with a rate of 60. There is no evidence of acute ischemia. 51-year-old man presents with acute epigastric pain and several episodes of vomiting. His pain is difficult to control and multiple etiologies exist including but not limited to pancreatitis, pancreatic lesion, pancreatic necrosis. Agree with plan to consult GI for consideration of EUS inpatient plus or minus ERCP. Currently he has no elevated LFTs or elevated lipase. Continue with supportive care including bowel rest, IV fluids, antiemetics and pain meds as needed. His blood pressure was notably elevated likely secondary to pain. Continue with current pain regimen and will add some scheduled tylenol in the background. Toradol as needed but notably he is on dual antiplatelet therapy with aspirin and Brilinta so we will minimize this. DO Jed (1) Pancreatitis Acute pancreatitis complication: unspecified Chronicity: acute Pancreatitis type: unspecified pancreatitis type Qualified Code(s): K85.90 - Acute pancreatitis without necrosis or infection, unspecified
--- NOTE | 2022-08-03 09:41 | CT Scan Report ---
CT abd pelvis IV con only CLINICAL HISTORY: periumbilical abd pain TECHNIQUE: Helical axial images of the abdomen and pelvis were obtained and displayed. Automated dose lowering techniques and/or adjustment according to patient size were utilized for this exam. This e xam was performed with intravenous contrast. CT DOSE: 288.99 mGy.cm COMPARISON: Comparison is made to CT abdomen pelvis 09/21/2021 FINDINGS: Lower chest: Bibasilar atelectasis versus scarring is seen. Liver: Unremarkable. No focal lesions are seen. Gallbladder and biliary tree: Patient is status post cholecystectomy. No intra- or extrahepatic bilia ry ductal dilation. Pancreas: There is an 11 mm hypodense lesion in the head of the pancreas, new from prior exam. The re mainder of the pancreas is unremarkable. Spleen: Splenule is incidentally noted. Adrenals: Unremarkable. Kidneys and ureters: 16 mm cyst is in the right kidney. Bladder: Unremarkable. Reproductive organs: Unremarkable. Bowel: A hiatal hernia is seen. The appendix is normal. Lymph nodes Retroperitoneal: Unremarkable. Pelvic: Unremarkable. Mesenteric: Unremarkable. Peritoneum: Normal. Vessels: Atherosclerotic calcifications are seen. Abdominal wall: Unremarkable. Bones: Unremarkable. IMPRESSION: 11 mm hypodense lesion in the head of the pancreas may represent edema or scarring in this patient wi th history of pancreatitis. IPMN underlying lesion, or developing necrosis cannot be excluded. Contin ued follow-up is recommended. ACT 112: Negative or not required by law. Electronically signed by: Vadim Cunha M.D. 08/03/2022 9:39 AM
[2022-08-03] MEDS ORDERED: hydrALAZINE HCL 20 MG/ML VIAL IV STA (12:02)
[2022-08-03] MEDS ORDERED: oxyCODONE HCL IR 5 MG TAB (IMMEDIATE RELEASE) PO STA (12:02)
[2022-08-03] MEDS ORDERED: KETOROLAC TROMETHAMINE 15 MG/ML VIAL IV STA (12:02)
[2022-08-03] MEDS ORDERED: oxyCODONE HCL IR 5 MG TAB (IMMEDIATE RELEASE) PO PRN ×2 (13:30→15:23)
[2022-08-03] MEDS ORDERED: HYDROmorphone INJ 0.5 MG/0.5 ML SYR IV PRN ×2 (13:30→15:23)
[2022-08-03] MEDS: ACETAMINOPHEN 1,000 MG/100 ML VIAL IV SCH ×2 (17:20→23:44)
[2022-08-03] MEDS ORDERED: FAMOTIDINE 40 MG TABLET PO SCH (21:00)
[2022-08-04] MEDS: SODIUM CHLORIDE 0.9% 1000ML 1,000 ML IV SCH ×2 (02:30→10:40)
--- NOTE | 2022-08-04 05:06 | Electrocardiogram Report ---
Test Reason : Blood Pressure : / mmHG Vent. Rate : 060 BPM Atrial Rate : 060 BPM P-R Int : 126 ms QRS Dur : 090 ms QT Int : 376 ms P-R-T Axes : 065 055 060 degrees QTc Int : 376 ms Poor data quality, interpretation may be adversely affected Normal sinus rhythm Incomplete right bundle branch block Possible Inferior infarct When compared with ECG of 28-JUL-2022 06:00, No significant change was found Confirmed by Jaren Crow ([id number]) on 08/04/2022 5:06:41 AM Referred By: REFERRED SELF Confirmed By:Jaren Crow
[2022-08-04] MEDS: ACETAMINOPHEN 1,000 MG/100 ML VIAL IV SCH (07:49)
[2022-08-04 07:56] LABS: Basophils # (auto) 0.06 K/uL (0-0.2); Basophils % (auto) 0.9 %; Eosinophils # (auto) 0.13 K/uL (0-0.50); Hematocrit (blood only) 38.6 % (40.1-51.0); Hemoglobin 13.9 g/dl (14.0-18.0); Immature Granulocytes # (auto) 0.01 K/uL (0.00-0.02); Immature Granulocytes % (auto) 0.2 %; Lymphocytes # (auto) 1.25 K/uL (1.2-3.4); Lymphocytes % (auto) 19.3 %; Mean Corpuscular Hemoglobin 33.5 pg (25.0-34.0); Mean Platelet Volume 8.7 fL (9.4-12.4); Monocytes # (auto) 0.43 K/uL (0.24-0.82); Monocytes % (auto) 6.6 %; Platelet Count 259 K/uL (130-400); RDW Coefficient of Variation 13.1 % (11.5-14.5); RDW Standard Deviation 44.9 fL (36.4-46.3); Red Blood Count 4.15 M/uL (4.63-6.08); White Blood Count 6.48 K/ul (4.8-10.8)
[2022-08-04 08:27] LABS: Albumin Level 3.7 gm/dl (3.4-5.0); BUN Creatinine Ratio 9.7 (10-20); Bilirubin Direct 0.1 mg/dl (0-0.2); Bilirubin,Total 0.7 mg/dl (0.2-1.0); Calcium 8.5 mg/dl (8.5-10.1); Creatinine Clr Calc Pharmacy 75.2 ml/min; Est GFR (Non-African American) 94.1 ml/min; Potassium 3.7 mmol/L (3.5-5.1); Total Protein 6.2 gm/dl (6.0-8.3)
[2022-08-04] MEDS ORDERED: METOPROLOL SUCC 25MG EXT REL TAB PO SCH (09:00)
[2022-08-04] MEDS ORDERED: SERTRALINE HCL 50 MG TABLET PO SCH (09:00)
[2022-08-04] MEDS ORDERED: ASPIRIN 81 MG ECTAB PO SCH (09:00)
[2022-08-04] MEDS ORDERED: PANTOprazole 40 MG TAB PO SCH (09:00)
[2022-08-04] MEDS ORDERED: ENOXAPARIN INJ 40 MG/0.4 ML SYR SQ SCH (09:00)
[2022-08-04] MEDS ORDERED: ISOSORBIDE MONO EXTENDED REL 60 MG TABCR PO SCH (09:00)
--- NOTE | 2022-08-04 09:22 | Gastrointestinal Consultation ---
Date of Consultation August 04, 2022 Assessment & Plan (1) Abdominal pain: 51 year old male admitted with abd pain, since resolved. He has history of pancreatitis, choledocholithiasis removal, biliary + pancreatic stent placements, and is planned for OP EUS/ERCP. - Advance diet as tolerated - Plan for OP EUS +/- ERCP evaluation - Strict avoidance of ETOH, and tobacco cessation advised - No contraindication to d/c if tolerating PO intake Thank you for allowing us to participate in the care of this patient. Please call with any acute changes, questions or concerns. Please see addendum below with additional recommendation from my supervising physician. Supervising Physician Co-Signing Physician Notes Patient has no abdominal pain, wants to eat and go home Benign abdominal exam, pe as documented Agree with further plan of care as documented. History of Present Illness Reason for Consultation: abd pain Requesting Physician: Rocio Attending Physician: Charisma Chan MD History of Present Illness 51 year old male with history of OH x 2, PCI stents placements currently on ASA and Brilinta who was admitted with abd pain, onset 1-2 days ago. Explained as severe upper abd pain. This was associated with an episode of nausea, vomiting. No black or bloody emesis. He denies having any fever/ chills at home. This AM on evaluation he is dressed, sitting upright in bed stating he feels great and wants to go home now. Notes complete resolution of all his symptoms. Normal LFTs Normal lipase CTAP 2021: 11 mm hypodense lesion in the head of the pancreas may represent edema or scarring in this patient with history of pancreatitis. IPMN underlying lesion, or developing necrosis cannot be excluded. Continued follow-up is recommended. Allergies Allergy/AdvReac Type Severity Reaction Status Date / Time No Known Allergies Allergy Verified 10/19/21 12:41 Home Medications Medication Instructions Recorded Confirmed Type aspirin 81 mg tablet,delayed 81 mg PO QAM 10/06/18 08/03/22 History release sertraline 50 mg tablet (Zoloft) 50 mg PO QAM 10/06/18 08/03/22 History nitroglycerin 0.4 mg sublingual 0.4 mg sublingual UD PRN Chest Pain 10/07/18 08/03/22 History tablet (Nitrostat) dicyclomine 10 mg capsule 10 mg PO BID PRN Abdominal Pain 12/06/20 08/03/22 History ezetimibe 10 mg tablet 10 mg PO QAM 12/06/20 08/03/22 History famotidine 40 mg tablet 40 mg PO HS PRN Acid Reflux 12/06/20 08/03/22 History isosorbide mononitrate 60 mg 60 mg PO DAILY 12/06/20 08/03/22 History tablet,extended release 24 hr magnesium oxide 400 mg PO QAM 12/06/20 08/03/22 History pantoprazole 40 mg tablet,delayed 40 mg PO QAM PRN Acid Reflux 08/20/21 08/03/22 History release metoprolol succinate 25 mg 25 mg PO DAILY 07/27/22 08/03/22 History tablet,extended release 24 hr rosuvastatin 40 mg tablet 40 mg PO DAILY 07/27/22 08/03/22 History ticagrelor 90 mg tablet (Brilinta) 60 mg PO BID 30 days #60 tabs 07/28/22 08/03/22 Rx Patient History Medical History Acute pancreatitis Barretts esophagus CAD (coronary artery disease) 2017-RCA stent x 2 07/2020-STEMI, s/p PCI to left circumflex with 2 MELLY. Post procedure complicated by V. fib arrest requiring defibrillation. 12/2020-NSTEMI s/p 3 Xience MELLY to the distal aspect of prior stent of the left posterior lateral branch vessel COVID-29 Oct 2021 Depression RADHA (generalized anxiety disorder) GERD (gastroesophageal reflux disease) Grade II diastolic dysfunction HLD (hyperlipidemia) Mobitz type 2 second degree atrioventricular block Splenic infarct Tobacco abuse Surgical History History of endoscopic retrograde cholangiopancreatography x2 (08/31, 09/30) History of vasectomy Hx laparoscopic cholecystectomy (08/22/21) Laparoscopic Cholecystectomy Dr. 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) Vital Signs (Past 12 Hours) Vital Signs Temp Pulse Pulse Resp BP Pulse Ox O2 Del Method 08/04/22 07:28 36.7 C 86 16 150/90 H 96 Room Air 08/04/22 04:18 37.1 C 73 18 138/81 95 Room Air 08/04/22 02:59 62 08/03/22 23:05 36.9 C 63 18 151/84 H 97 Room Air Laboratory Results 08/04/22 08/04/22 08/03/22 Range/Units 07:29 07:29 Unknown WBC 6.48 (4.8-10.8) K/ul RBC 4.15 L (4.63-6.08) M/uL Hgb 13.9 L (14.0-18.0) g/dl Hct 38.6 L (40.1-51.0) % MCV 93.0 (80.0-100.0) fL MCH 33.5 (25.0-34.0) pg MCHC 36.0 (32.0-36.0) g/dL RDW Std Deviation 44.9 (36.4-46.3) fL RDW Coeff of [place] 13.1 (11.5-14.5) % Plt Count 259 (130-400) K/uL MPV 8.7 L (9.4-12.4) fL Immature Gran % (Auto) 0.2 % Neut % (Auto) 71.0 % Lymph % (Auto) 19.3 % [place] % (Auto) 6.6 % Eos % (Auto) 2.0 % Baso % (Auto) 0.9 % Neut # (Auto) 4.60 (1.4-6.5) K/uL Lymph # (Auto) 1.25 (1.2-3.4) K/uL [place] # (Auto) 0.43 (0.24-0.82) K/uL Eos # (Auto) 0.13 (0-0.50) K/uL Baso # (Auto) 0.06 (0-0.2) K/uL Immature Gran # (Auto) 0.01 (0.00-0.02) K/uL Sodium 135 L (136-145) mmol/L Potassium 3.7 (3.5-5.1) mmol/L Chloride 106 (98-107) mmol/L Carbon Dioxide 22 (21-32) mmol/L Anion Gap 7 (3-11) BUN 9 (6-23) mg/dl Creatinine 0.93 (0.6-1.4) mg/dl Est Cr Clr Drug Dosing 75.2 ml/min Est GFR ( Amer) 109.0 ml/min Est GFR (Non-Af Amer) 94.1 ml/min BUN/Creatinine Ratio 9.7 L (10-20) Glucose 88 (70-99(Fasting)) mg/dl Calcium 8.5 (8.5-10.1) mg/dl Total Bilirubin 0.7 (0.2-1.0) mg/dl Direct Bilirubin 0.1 (0-0.2) mg/dl AST 23 (13-39) U/L ALT 36 (7-52) U/L Alkaline Phosphatase 86 (34-104) U/L Total Protein 6.2 (6.0-8.3) gm/dl Albumin 3.7 (3.4-5.0) gm/dl Lipase 127 H (11-82) U/L SARS-CoV-2, RNA, NAAT NEGATIVE (NEGATIVE)
--- NOTE | 2022-08-04 13:59 | Discharge Summary ---
Date of Service August 04, 2022 Admission HPI Per Admitting Provider This is a 51 y/o male with a PMH of CAD w/ hx prior MA x 2, PCI with stents, prior acute pancreatitis s/p ERCP with stent placement, GERD, dyslipidemia, anxiety, and Casanova esophagus who presents to the ED today with chest pain. Pt has a complex cardiac history with last visit to cardiology in February 2021. Most recent PCI to OM1 in December 2020 when pt presented with syncope and was found to have transient Mobitz 2 heart block. In Aug 2021, pt was admitted with cholecystitis and gallstone pancreatitis, underwent lap rosas and ERCP with biliary stent placement on 08/22/21. Readmitted in Sep 2021 with acute panc reatitis and underwent EGD/ERCP with stent removal and balloon extraction of residual choledocholithiasis. Brief readmission later in Sep due to recurrent pain. Pt had COVID in Oct 2021, which was treated outpatient. He overall did well until last week when he was admitted with abdominal pain and chest pain. Cardiac w/u was negative. Abdominal pain was attributed to mild pancreatitis with elevation of lipase to just over 100. GI symptoms resolved and pt was to f/u for EUS as an outpatient. Pt reports that he felt well until last night when he had the abrupt onset of sharp periumbilical pain around 9 pm. Does not recall a specific inciting event. Shortly after the pain started, he developed nausea with emesis of undigested food followed by ongoing dry heaves. In the ED he has received multiple doses of morphine and Zofran with minimal relief of symptoms. Any time he attempts oral intake the pain worsens and he develops dry heaves so he has been referred for admission. Pt reports the pain is similar in character to prior pancreatitis pain but prior pain was lower in the abdomen. It does not radiate. He reports associated chills and sweats but no documented fevers. He has been fatigued over the past week but was able to go back to work after discharge. He denies chest pain, palpitations, SOB, cough, URI symptoms, CERDA, dizziness, dark urine, change in bowel habits, melena, hematochezia, heartburn/indigestion, or specific food intolerances. Admission Exam Per Admitting Provider Constitutional: well developed and well nourished; + uncomfortable Eyes: + anicteric sclerae Neck: trachea midline Respiratory: no respiratory distress and no labored breathing Auscultation: lungs clear to auscultation bilaterally; no rales, no rhonchi and no wheezes Cardiovascular: Rate/Rhythm: regular rhythm and + bradycardic Vessels: dorsalis pedis pulses present and radial pulses present Extremities: no pedal edema Gastrointestinal (Abdomen): Inspection/Auscultation: normal bowel sounds; abdomen not distended Percussion/Palpation: + abdomen tender (diffusely but worse in periumbilical area and LUQ) and abdomen soft; no guarding Musculoskeletal: Head/Neck/Chest: normocephalic, head atraumatic and neck supple Skin: no jaundice Neurologic: moves all extremities; no focal motor deficits and not confused Psychiatric: A+Ox3, euthymic affect Principal Diagnosis Abdominal pain Recurrent Pancreatitis Discharge Exam General Appearance:Thin, no apparent distress Head: normocephalic, Atraumatic Eyes: normal inspection, EOMI Neck: supple, Trachea midline Respiratory/Chest: Normal breath sounds, CTA, No accessory muscle use Cardiovascular: S1, S2, No murmur Abdomen/GI:Soft, mild tender, Bowel sounds present Extremities/Musculoskeletal:normal inspection, no edema Neurologic/Psych:AAOX3, grossly no focal neurological deficits Skin: normal color, warm Discharge Data Allergies Allergy/AdvReac Type Severity Reaction Status Date / Time No Known Allergies Allergy Verified 08/09/22 02:54 Consultations 08/03/22 08:35 ED Decision to Admit Stat 08/03/22 13:30 Consult Gastroenterology Routine Ordered Studies 08/03/22 00:57 CT abd pelvis IV con only Urgent Laboratory Results WBC 6.48 K/ul (4.8-10.8) 08/04/22 07:29 RBC 4.15 M/uL (4.63-6.08) L 08/04/22 07:29 Hgb 13.9 g/dl (14.0-18.0) L 08/04/22 07:29 Hct 38.6 % (40.1-51.0) L 08/04/22 07:29 MCV 93.0 fL (80.0-100.0) 08/04/22 07:29 MCH 33.5 pg (25.0-34.0) 08/04/22 07: MCHC 36.0 g/dL (32.0-36.0) 08/04/22 07: RDW Std Deviation 44.9 fL (36.4-46.3) 08/04/22: RDW Coeff of Mckinley 13.1 % (11.5-14.5) 08/04/22: Plt Count 259 K/uL (130-400) 08/04/22: MPV 8.7 fL (9.4-12.4) L 08/04/22: Immature Gran % (Auto) 0.2 % 08/04/22 07: Neut % (Auto) 71.0 % 08/04/22: Lymph % (Auto) 19.3 % 08/04/22: [place] % (Auto) 6.6 % 08/04/22: Eos % (Auto) 2.0 % 08/04/22: Baso % (Auto) 0.9 % 08/04/22: Neut # (Auto) 4.60 K/uL (1.4-6.5) 08/04/22 07: Lymph # (Auto) 1.25 K/uL (1.2-3.4) 08/04/22 07: [place] # (Auto) 0.43 K/uL (0.24-0.82) 08/04/22 07: Eos # (Auto) 0.13 K/uL (0-0.50) 08/04/22 07: Baso # (Auto) 0.06 K/uL (0-0.2) 08/04/22: Immature Gran # (Auto) 0.01 K/uL (0.00-0.02) 08/04/22: Sodium 135 mmol/L (136-145) L 08/04/22: Potassium 3.7 mmol/L (3.5-5.1) 08/04/22: Chloride 106 mmol/L (98-107) 08/04/22: Carbon Dioxide 22 mmol/L (21-32) 08/04/22: Anion Gap 7 (3-11) 08/04/22: BUN 9 mg/dl (6-23) 08/04/22: Creatinine 0.93 mg/dl (0.6-1.4) 08/04/22 07:29 Est Cr Clr Drug Dosing 75.2 ml/min 08/04/22 07:29 Est GFR ( Amer) 109.0 ml/min 08/04/22 07: Est GFR (Non-Af Amer) 94.1 ml/min 08/04/22 07:29 BUN/Creatinine Ratio 9.7 (10-20) L 08/04/22 07:29 Glucose 88 mg/dl (70-99(Fasting)) 08/04/22 07:29 Lactate 1.9 mmol/L (0.4-2.0) 08/03/22 00:58 Calcium 8.5 mg/dl (8.5-10.1) 08/04/22 07: Magnesium 1.9 mg/dl (1.7-2.4) 08/03/22 00:58 Total Bilirubin 0.7 mg/dl (0.2-1.0) 08/04/22 07: Direct Bilirubin 0.1 mg/dl (0-0.2) 08/04/22 07:29 AST 23 U/L (13-39) 08/04/22 07:29 ALT 36 U/L (7-52) 08/04/22 07:29 Alkaline Phosphatase 86 U/L (34-104) 08/04/22 07:29 Troponin I High Sens 9.7 pg/ml (0-20) 08/03/22 00:58 Total Protein 6.2 gm/dl (6.0-8.3) 08/04/22 07:29 Albumin 3.7 gm/dl (3.4-5.0) 08/04/22 07:29 Globulin 3.1 gm/dl (2.5-4.0) 08/03/22 00:58 Albumin/Globulin Ratio 1.4 (0.9-2) 08/03/22 00:58 Lipase 127 U/L (11-82) H 08/04/22 07:29 Urine Color Yellow 08/03/22 07:20 Urine Appearance Clear (Clear) 08/03/22 07:20 Urine pH 6.0 (4.5-7.5) 08/03/22 07:20 Ur Specific [place] > 1.045 (1.000-1.030) H 08/03/22 07:20 Urine Protein Negative (Negative) 08/03/22 07:20 Urine Glucose (UA) Negative (Negative) 08/03/22 07:20 Urine Ketones Negative (Negative) 08/03/22 07:20 Urine Blood Trace (Negative) H 08/03/22 07:20 Urine Nitrite Negative (Negative) 08/03/22 07:20 Urine Bilirubin Negative (Negative) 08/03/22 07:20 Urine Urobilinogen Negative (Negative) 08/03/22 07:20 Ur Leukocyte Esterase Negative (Negative) 08/03/22 07:20 Urine WBC (Auto) 1-5 /hpf (0-5) 08/03/22 07:20 Urine RBC (Auto) 0-4 /hpf (0-4) 08/03/22 07:20 U Hyaline Cast (Auto) 1-5 /lpf (0-5) 08/03/22 07:20 U Epithel Cells (Auto) >30 /lpf (0-5) H 08/03/22 07:20 Urine Bacteria (Auto) 1+ (Negative) H 08/03/22 07:20 SARS-CoV-2, RNA, NAAT NEGATIVE (NEGATIVE) 08/03/22 Unknown Impressions Abdomen/Pelvis CT 08/03/22 00:57 CT abd pelvis IV con only CLINICAL HISTORY: periumbilical abd pain TECHNIQUE: Helical axial images of the abdomen and pelvis were obtained and displayed. Automated dose lowering techniques and/or adjustment according to patient size were utilized for this exam. This exam was performed with intravenous contrast. CT DOSE: 288.99 mGy.cm COMPARISON: Comparison is made to CT abdomen pelvis 09/21/2021 FINDINGS: Lower chest: Bibasilar atelectasis versus scarring is seen. Liver: Unremarkable. No focal lesions are seen. Gallbladder and biliary tree: Patient is status post cholecystectomy. No intra- or extrahepatic biliary ductal dilation. Pancreas: There is an 11 mm hypodense lesion in the head of the pancreas, new from prior exam. The remainder of the pancreas is unremarkable. Spleen: Splenule is incidentally noted. Adrenals: Unremarkable. Kidneys and ureters: 16 mm cyst is in the right kidney. Bladder: Unremarkable. Reproductive organs: Unremarkable. Bowel: A hiatal hernia is seen. The appendix is normal. Lymph nodes Retroperitoneal: Unremarkable. Pelvic: Unremarkable. Mesenteric: Unremarkable. Peritoneum: Normal. Vessels: Atherosclerotic calcifications are seen. Abdominal wall: Unremarkable. Bones: Unremarkable. IMPRESSION: 11 mm hypodense lesion in the head of the pancreas may represent edema or scarring in this patient with history of pancreatitis. IPMN underlying lesion, or developing necrosis cannot be excluded. Continued follow-up is recommended. ACT 112: Negative or not required by law. Electronically signed by: Vadim Cunha M.D. 08/03/2022 9:39 AM Hospital Course (1) Abdominal pain, periumbilical: (2) Pancreatitis: (3) CAD (coronary artery disease): (4) RADHA (generalized anxiety disorder): (5) HLD (hyperlipidemia): (6) GERD (gastroesophageal reflux disease): (7) Depression: (8) Lesion of pancreas: Plan Recent admission (one week ago) for similar symptoms but lipase mildly elevated - diagnosed with acute pancreatitis and recommended to have further work-up as an outpatient with EUS +/- ERCP. Presents on admission with recurrent pain, similar to last week but more severe. Lipase on admission was normal CT abd/pelvis showed 11 mm hypodense lesion in the head of the pancreas may represent edema or scarring in this patient with history of pancreatitis. Received IVF He is very anxious to go home now even he has not tried a diet yet Diet started and advanced as tolerated GI on board - Plan for OP EUS in 6 wks. Pt said that he will work out of the hospital today if i don't discharge him Clinically improved significantly Code status: Full code DVT Prophylaxis: Lovenox Total Time Total Time Spent Total Time Spent (In Minutes): 35 minutes Discharge Plan Discharge Items Patient Disposition: Home - Self-Care Reason For Visit: ABD PAIN Discharge Diagnosis: Abdominal pain Activity: Resume your previous activity Non-emergency contact: Primary Care Provider Call non-emergency contact if: you have any medication questions Follow-up/Referrals: Wade Bragg MD [Primary Care Provider] - (Date & Time 08/06/2022 11:20 AM Provider Wade Bragg MD [facility] ) Diet: Low Fat Addtl Attending Provider Instructions: Follow up with your primary care provider within 1 week Follow up with [facility] gastroenterology to arrange for endoscopic ultrasound (EUS) +/- ERCP. Counseling on smoking cessation Seek medical attention if your symptoms reoccur Pending Studies at Discharge: No Stand-Alone Forms: My [facility], Smoking Cessation Medications and DC Order Prescriptions: Continued aspirin 81 mg tablet,delayed release (DR/EC) 81 mg PO QAM sertraline [Zoloft] 50 mg tablet 50 mg PO QAM nitroglycerin [Nitrostat] 0.4 mg tablet, sublingual 0.4 mg Sublingual UD PRN (Reason: Chest Pain) famotidine 40 mg tablet 40 mg PO HS PRN (Reason: Acid Reflux) dicyclomine 10 mg capsule 10 mg PO BID PRN (Reason: Abdominal Pain) ezetimibe 10 mg tablet 10 mg PO QAM magnesium oxide 400 mg magnesium Tablet 400 mg PO QAM pantoprazole 40 mg tablet,delayed release (DR/EC) 40 mg PO QAM PRN (Reason: Acid Reflux) rosuvastatin 40 mg Tablet 40 mg PO DAILY metoprolol succinate 25 mg Tablet Extended Release 24 Hr 25 mg PO DAILY Brilinta 90 mg Tablet 60 mg PO BID 30 Days Qty: 60 3RF Discharge Orders: Discharge Order (Routine); Ordered 08/04/22 Ordered By: Charisma Chan Admission Data Admit Date/Time: 08/03/22 09:15 Attending Provider: Charisma Chan Admit Provider: Anahy Adkins Primary Care Provider: Wade Bragg Other Providers: Anahy Adkins ; Francesca Walters Other Interventions: Discharge Summary Assessment (RN) Last Done: 08/04/22 14:21
== END 2022-08-04 14:44 | disposition home or self-care (01) ==
LOC: ED 00:43 → EDINP 00:43 → SUATTDRO 09:15 → 2N 13:14

== ENCOUNTER 2022-08-09 02:29 | Inpatient (IN) ==
[2022-08-09 03:19] LABS: Basophils % (auto) 1.6 %; Eosinophils # (auto) 0.21 K/uL (0-0.50); Eosinophils % (auto) 3.4 %; Hematocrit (blood only) 45.2 % (40.1-51.0); Hemoglobin 16.6 g/dl (14.0-18.0); Immature Granulocytes # (auto) 0.02 K/uL (0.00-0.02); Immature Granulocytes % (auto) 0.3 %; Lymphocytes # (auto) 1.81 K/uL (1.2-3.4); Lymphocytes % (auto) 29.7 %; Mean Corpuscular Hemoglobin 35.3 pg (25.0-34.0); Mean Corpuscular Hgb Conc 36.7 g/dL (32.0-36.0); Mean Corpuscular Volume 96.2 fL (80.0-100.0); Mean Platelet Volume 8.7 fL (9.4-12.4); Monocytes # (auto) 0.45 K/uL (0.24-0.82); Monocytes % (auto) 7.4 %; Neutrophils % (auto) 57.6 %; Platelet Count 307 K/uL (130-400); RDW Coefficient of Variation 13.5 % (11.5-14.5); RDW Standard Deviation 47.8 fL (36.4-46.3); White Blood Count 6.09 K/ul (4.8-10.8)
[2022-08-09 03:32] LABS: Prothrombin Time 10.9 Seconds (9.0-12.0)
[2022-08-09 03:42] LABS: Albumin Globulin Ratio 1.6 (0.9-2); Albumin Level 4.7 gm/dl (3.4-5.0); BUN Creatinine Ratio 17.8 (10-20); Bilirubin,Total 0.6 mg/dl (0.2-1.0); Calcium 9.3 mg/dl (8.5-10.1); Creatinine Clr Calc Pharmacy 58.9 ml/min; Est GFR (African American) 81.7 ml/min; Est GFR (Non-African American) 70.5 ml/min; Potassium 3.8 mmol/L (3.5-5.1); Total Protein 7.7 gm/dl (6.0-8.3)
[2022-08-09] MEDS ORDERED: fentaNYL citrate 100 MCG/2 ML VIAL IV ONE (04:07)
--- NOTE | 2022-08-09 04:14 | Emergency Department Note ---
History of Present Illness General Chief complaint: Abdominal Pain Stated complaint: ABD PAIN,BACK PAIN Time Seen by Provider: 08/09/22 03:49 History of Present Illness Maximum Pain Intensity: 7 51-year-old male presents emergency department with a complaint of midepigastric abdominal pain that started earlier this evening. Patient was admitted for the past 2 weeks for pancreatitis with unknown etiology. Patient is status postcholecystectomy does not drink alcohol. He rates the pain moderate nonradiating in the midepigastrium. There is been no nausea vomiting diarrhea. There are no other mitigating or alleviating factors Home Medications Medication Instructions Recorded Confirmed Type aspirin 81 mg tablet,delayed 81 mg PO QAM 10/06/18 08/09/22 History release sertraline 50 mg tablet (Zoloft) 50 mg PO QAM 10/06/18 08/09/22 History nitroglycerin 0.4 mg sublingual 0.4 mg sublingual UD PRN Chest Pain 10/07/18 08/09/22 History tablet (Nitrostat) dicyclomine 10 mg capsule 10 mg PO BID PRN Abdominal Pain 12/06/20 08/09/22 History ezetimibe 10 mg tablet 10 mg PO QAM 12/06/20 08/09/22 History famotidine 40 mg tablet 40 mg PO HS PRN Acid Reflux 12/06/20 08/09/22 History isosorbide mononitrate 60 mg 60 mg PO DAILY 12/06/20 08/09/22 History tablet,extended release 24 hr magnesium oxide 400 mg PO QAM 12/06/20 08/09/22 History pantoprazole 40 mg tablet,delayed 40 mg PO QAM PRN Acid Reflux 08/20/21 08/09/22 History release metoprolol succinate 25 mg 25 mg PO DAILY 07/27/22 08/09/22 History tablet,extended release 24 hr rosuvastatin 40 mg tablet 40 mg PO DAILY 07/27/22 08/09/22 History ticagrelor 90 mg tablet (Brilinta) 60 mg PO BID 30 days #60 tabs 07/28/22 08/09/22 Rx Allergies Allergy/AdvReac Type Severity Reaction Status Date / Time No Known Allergies Allergy Verified 08/09/22 02:54 Past Med/Surg History Medical History Acute pancreatitis Barretts esophagus CAD (coronary artery disease) 2018-RCA stent x 2 07/2020-STEMI, s/p PCI to left circumflex with 2 MELLY. Post procedure complicated by V. fib arrest requiring defibrillation. 12/2020-NSTEMI s/p 3 Xience MELLY to the distal aspect of prior stent of the left posterior lateral branch vessel COVID-29 Oct 2021 Depression RADHA (generalized anxiety disorder) GERD (gastroesophageal reflux disease) Grade II diastolic dysfunction HLD (hyperlipidemia) Mobitz type 2 second degree atrioventricular block Splenic infarct Tobacco abuse Surgical History History of endoscopic retrograde cholangiopancreatography x2 (08/31, 09/30) History of vasectomy Hx laparoscopic cholecystectomy (08/22/21) Laparoscopic Cholecystectomy Dr. Davidson 08/22/2021 Family History Mother Gallbladder disease Sister Gallbladder disease Other Diabetes Stroke Denies family history of Pancreatic disease Social History Smoking Status: Current every day smoker Tobacco Type: Cigarettes Years Smoked: 31; Cigarettes Per Day: 2; Second Hand Exposure: No; Hx Alcohol Use: No Hx Substance Use: No Preferred Language: [place] Citizen Communication Ability: Effective Benefit Director Required: No Beliefs That Will Affect Care: None marital status: Single Current Living Situation: Alone current occupational status: employed Feels Safe at Home: Yes Assistive Devices: Glasses Review of Systems A total of 10 systems reviewed and were otherwise negative Constitutional: no fever Gastrointestinal: + abdominal pain Musculoskeletal: no back pain Physical Exam Vital Signs Vital Signs - 24 hr 08/09/22 02:34 08/09/22 02:55 08/09/22 03:16 Temperature 36.2 C L 36.6 C Temperature Source Temporal Artery Scan Oral Pulse Rate 77 62 Pulse Rate [Apical] 73 Pulse Rhythm Regular Pulse Rhythm [Apical] Regular Pulse Strength [Apical] Normal Respiratory Rate 18 18 18 Respiratory Effort / Characteristics Non-Labored Spontaneous Non-Labored Spontaneous Respiratory Depth Normal Normal Respiratory Pattern Regular Blood Pressure 160/87 H Blood Pressure [Right Arm] 159/94 H Blood Pressure Mean 111 Blood Pressure Mean [Right Arm] 115 Blood Pressure Position [Right Arm] Semi-fowlers Pulse Oximetry 98 97 99 Oxygen Delivery Method Room Air Room Air Room Air Sepsis Recent Fever Within 48 Hours No Sepsis New/Unexplained Change in Mental Status No Sepsis Action Taken by Nursing No Action Required GENERAL: Patient is awake alert in no acute distress patient is resting comfortably and showing no signs of anxiety EYES: The conjunctivae are clear. The pupils are round and reactive. EARS, NOSE, MOUTH AND THROAT: The nose is without any evidence of any deformity. Mucous membranes are moist. Tongue is midline. NECK: The neck is nontender and supple. RESPIRATORY: Normal respiratory effort is noted there is no evidence of wheezing rhonchi or rales CARDIOVASCULAR: Regular rate and rhythm noted there no murmurs rubs or gallops normal S1 normal S2. GASTROINTESTINAL: The abdomen is soft. Abdomen is tender midepigastrium; no r/r/g PELVIS: The Pelvis is stable. No tenderness to palpation is noted. BACK: No midline tenderness or or step-off noted range of motion in flexion extension as well as rotation no signs of muscle spasm noted MUSCULOSKELETAL/EXTREMITIES: There is no evidence of gross deformity full range of motion is noted in the hips and shoulders. SKIN: There is no obvious evidence of any rash. There are no petechiae, pallor or cyanosis noted. NEUROLOGIC: Patient is awake alert and oriented x3 strength is symmetric Medical Decision Making Medical Records Attestation: I reviewed the patient's medical records. Home Medications Current Medication List: was personally reviewed by me Laboratory Data Attestation: I reviewed the patient's lab results. Result diagrams: 08/09/22 03:01 08/09/22 03:01 Lab Results 08/09/22 08/09/22 08/09/22 Range/Units 03:01 03:01 03:01 WBC 6.09 (4.8-10.8) K/ul RBC 4.70 (4.63-6.08) M/uL Hgb 16.6 (14.0-18.0) g/dl Hct 45.2 (40.1-51.0) % MCV 96.2 (80.0-100.0) fL MCH 35.3 H (25.0-34.0) pg MCHC 36.7 H (32.0-36.0) g/dL RDW Std Deviation 47.8 H (36.4-46.3) fL RDW Coeff of Mckinley 13.5 (11.5-14.5) % Plt Count 307 (130-400) K/uL MPV 8.7 L (9.4-12.4) fL Immature Gran % (Auto) 0.3 % Neut % (Auto) 57.6 % Lymph % (Auto) 29.7 % [place] % (Auto) 7.4 % Eos % (Auto) 3.4 % Baso % (Auto) 1.6 % Neut # (Auto) 3.50 (1.4-6.5) K/uL Lymph # (Auto) 1.81 (1.2-3.4) K/uL [place] # (Auto) 0.45 (0.24-0.82) K/uL Eos # (Auto) 0.21 (0-0.50) K/uL Baso # (Auto) 0.10 (0-0.2) K/uL Immature Gran # (Auto) 0.02 (0.00-0.02) K/uL PT 10.9 (9.0-12.0) Seconds INR 1.0 (0.9-1.1) Sodium 132 L (136-145) mmol/L Potassium 3.8 (3.5-5.1) mmol/L Chloride 104 (98-107) mmol/L Carbon Dioxide 20 L (21-32) mmol/L Anion Gap 8 (3-11) BUN 21 (6-23) mg/dl Creatinine 1.18 (0.6-1.4) mg/dl Est Cr Clr Drug Dosing 58.9 ml/min Est GFR ( Amer) 81.7 ml/min Est GFR (Non-Af Amer) 70.5 ml/min BUN/Creatinine Ratio 17.8 (10-20) Glucose 98 (70-99(Fasting)) mg/dl Calcium 9.3 (8.5-10.1) mg/dl Total Bilirubin 0.6 (0.2-1.0) mg/dl AST 28 (13-39) U/L ALT 28 (7-52) U/L Alkaline Phosphatase 81 (34-104) U/L Total Protein 7.7 (6.0-8.3) gm/dl Albumin 4.7 (3.4-5.0) gm/dl Globulin 3.0 (2.5-4.0) gm/dl Albumin/Globulin Ratio 1.6 (0.9-2) Lipase 370 H (11-82) U/L ECG Data Attestation: I personally reviewed and interpreted this ECG as follows: Additional Comments: EKG interpreted by me normal sinus rhythm rate of 61 age-indeterminate inferior wall SD, no obvious ST segment elevation or depression normal intervals normal axis MDM Narrative Medical decision making differential diagnosis pancreatitis gastritis metabolic derangement dehydration. Plan is to check labs, give IV fluids IV pain medic ine. Patient's prior records were reviewed he has a 3-week history of pancreatitis with unknown etiology at this time. Patient will be admitted for further evaluation he is complaining of significant midepigastric pain Impression & Plan Pancreatitis Discharge Plan Visit Data Chief Complaint: Abdominal Pain Stated Complaint: ABD PAIN,BACK PAIN ED Provider: Taras Cherry Discharge Problem: Pancreatitis Patient Disposition: Being Evaluated by Hospitalist Forms Stand Alone Forms: My [facility] Prescriptions Prescriptions: No Action aspirin 81 mg tablet,delayed release (DR/EC) 81 mg PO QAM sertraline [Zoloft] 50 mg tablet 50 mg PO QAM nitroglycerin [Nitrostat] 0.4 mg tablet, sublingual 0.4 mg Sublingual UD PRN (Reason: Chest Pain) famotidine 40 mg tablet 40 mg PO HS PRN (Reason: Acid Reflux) dicyclomine 10 mg capsule 10 mg PO BID PRN (Reason: Abdominal Pain) ezetimibe 10 mg tablet 10 mg PO QAM magnesium oxide 400 mg magnesium Tablet 400 mg PO QAM isosorbide mononitrate 60 mg tablet extended release 24 hr 60 mg PO DAILY pantoprazole 40 mg tablet,delayed release (DR/EC) 40 mg PO QAM PRN (Reason: Acid Reflux) rosuvastatin 40 mg Tablet 40 mg PO DAILY metoprolol succinate 25 mg Tablet Extended Release 24 Hr 25 mg PO DAILY Brilinta 90 mg Tablet 60 mg PO BID 30 Days Qty: 60 3RF Referrals Referrals: Wade Bragg MD [Primary Care Provider] -
[2022-08-09] MEDS ORDERED: HYDROmorphone INJ 0.5 MG/0.5 ML SYR IV STA (04:52)
[2022-08-09] MEDS ORDERED: POLYETHYLENE (MIRALAX) 17 GM PACK PO PRN (06:18)
[2022-08-09] MEDS ORDERED: DICYCLOMINE HCL 10 MG CAP PO PRN (06:18)
[2022-08-09] MEDS ORDERED: NITROGLYCERIN SL 0.4 MG/TAB TAB SL PRN (06:18)
[2022-08-09] MEDS ORDERED: PANTOprazole 40 MG TAB PO PRN (06:18)
[2022-08-09] MEDS ORDERED: ACETAMINOPHEN 325 MG TAB PO PRN (06:18)
[2022-08-09] MEDS: LACTATED RINGER'S 1,000 ML IV SCH ×3 (07:28→20:03)
[2022-08-09] MEDS: HYDROmorphone INJ 0.5 MG/0.5 ML SYR IV PRN ×6 (07:29→20:47)
[2022-08-09] MEDS: FAMOTIDINE 20 MG in SYRINGE 3 ML IV SCH ×2 (07:29→22:08)
[2022-08-09] MEDS: ONDANSETRON INJ 2 MG/ML 2 ML VIAL IV PRN ×2 (07:29→20:47)
[2022-08-09] MEDS: ISOSORBIDE MONO EXTENDED REL 60 MG TABCR PO SCH (07:37)
[2022-08-09] MEDS: SERTRALINE HCL 50 MG TABLET PO SCH (08:35)
[2022-08-09] MEDS: MAGNESIUM OXIDE 400 MG TAB PO SCH (08:35)
[2022-08-09] MEDS: ROSUVASTATIN CALCIUM 20 MG TAB PO SCH (08:35)
[2022-08-09] MEDS: METOPROLOL SUCC 25MG EXT REL TAB PO SCH (08:35)
[2022-08-09] MEDS: EZETIMIBE 10 MG TABLET PO SCH (08:35)
--- NOTE | 2022-08-09 08:50 | History and Physical Report ---
DATE OF ADMISSION: 08/09/2022. CHIEF COMPLAINT: Abdominal pain. HISTORY OF PRESENT ILLNESS: This is a 51-year-old male with past medical history significant for CAD, history of [place] x2 PCI with stents, history of acute pancreatitis, status post ERCP with stent placement, history of GERD, hyperlipidemia, anxiety, Casanova's esophagus, who recently was admitted a couple of times for pancreatitis, again comes back with abdominal pain. He was discharged a few days back. He says the pain never went away, it has got worse, 10/10 in severity in the abdomen. Denies any nausea or vomiting. No diarrhea or constipation. Normal bladder movements. No fevers, no chest pain, no shortness of breath, no cough, no headache, no dizziness, no blurred visions. Currently, complains of pain, asked for pain medication. Otherwise, hemodynamically stable. ALLERGIES: No known drug allergies. PAST MEDICAL HISTORY: As mentioned above. PAST SURGICAL HISTORY: Colonoscopy, EGDs multiple times, EGD with endoscopic ultrasound, ERCP with endoscopic ultrasound, vasectomy, cardiac stent placement. MEDICATIONS: The patient is on aspirin 81 mg p.o. daily, Brilinta 60 mg p.o. b.i.d., dicyclomine 10 mg p.o. b.i.d. p.r.n., ezetimibe 10 mg p.o. a.m., famotidine 40 mg p.o. at bedtime p.r.n., isosorbide mononitrate 60 mg p.o. daily, magnesium oxide 400 mg p.o. a.m., metoprolol succinate 25 mg p.o. daily, nitroglycerin 0.4 mg sublingual p.r.n., Protonix 40 mg p.o. a.m. p.r.n., lovastatin 40 mg p.o. daily, Zoloft 50 mg p.o. a.m. FAMILY HISTORY: Significant for mother has diabetes; father has hypertension; mother has stroke. SOCIAL HISTORY: Lives alone. As per Epic, he is currently a smoker, but denies any smoking to me. Not drinking alcohol currently. No drug use. REVIEW OF SYSTEMS: As per HPI. Rest of the review of systems is negative. PHYSICAL EXAMINATION: GENERAL: The patient is of moderate build, not in acute distress. VITAL SIGNS: Temperature 36.6, pulse 62, respiratory rate 18, blood pressure 159/94, oxygen 99% on room air. HEENT: Pupils equal, round and reactive to light. Oral mucosa dry. NECK: No JVD or neck masses. CARDIOVASCULAR: S1 and S2 heard. Regular rate and rhythm. No murmur, no gallop. RESPIRATORY SYSTEM: Normal AP diameter. No accessory muscle use. No wheezing, no crackles. ABDOMEN: Soft, bowel sounds present, diffuse tenderness, no guarding, no rigidity, no distention. CENTRAL NERVOUS SYSTEM: Cranial nerves II through XII are grossly intact, nonfocal. EXTREMITIES: No edema, no erythema. LABORATORY DATA: WBC 6.09, hemoglobin 16.6, hematocrit 45.2, platelets 307. PT 10.9, INR 1. Sodium 132, potassium 3.8, chloride 104, bicarbonate 20, BUN 21, creatinine 1.1, serum glucose 98, calcium 9.3, total bilirubin 0.6, AST 28, ALT 28, alkaline phosphatase 81, lipase 370. EKG: Normal sinus rhythm at a rate of 61. No significant change was found. ASSESSMENT AND PLAN: This 51-year-old male presents with ongoing abdominal pain and pancreatitis. 1. Recurrent pancreatitis, abdominal pain, not improving: Will treat with aggressive fluids. IV Dilaudid p.r.n., IV antiemetics prn. Will keep him n.p.o. Consult GI for further recommendations. 2. History of coronary artery disease, status post stents: Continue his home medication of aspirin, Brilinta, Imdur, and beta shay and statin. 3. Casanova's esophagitis: Will place him on IV Pepcid and Protonix p.r.n. 4. History of hyperlipidemia: On statin. 5. Generalized anxiety disorder and depression: Continue Zoloft. 6. Deep venous thrombosis prophylaxis: Lovenox. DISPOSITION: Closely monitor in the medical floor. PT/OT prior to discharge. Social service to help with discharge planning. Job ID: [id number] [facility]
[2022-08-09] MEDS: ASPIRIN 81 MG ECTAB PO SCH (08:59)
[2022-08-09] MEDS: ENOXAPARIN INJ 40 MG/0.4 ML SYR SQ SCH (08:59)
[2022-08-09 09:28] LABS: Appearance Urine Clear (Clear); Bacteria Urine Automated Negative (Negative); Bilirubin Urine Negative (Negative); Blood Urine Trace (Negative); Color Urine Yellow; Glucose Urine UA Negative (Negative); Ketones Urine Trace (Negative); Leukocyte Esterase Urine Negative (Negative); Nitrite Urine Negative (Negative); Protein Urine Trace (Negative); RBC Urine Automated 0-4 /hpf (0-4); Specific Gravity Urine 1.043 (1.000-1.030); Urobilinogen Urine Negative (Negative); WBC Urine Automated 0 /hpf (0-5); pH Urine 5.5 (4.5-7.5)
[2022-08-09] MEDS: oxyCODONE HCL IR 5 MG TAB (IMMEDIATE RELEASE) PO PRN (12:43)
[2022-08-09] MEDS ORDERED: OPTIRAY 350 100ml IV ONE (13:10)
--- NOTE | 2022-08-09 13:48 | CT Scan Report ---
CT OF THE ABDOMEN AND PELVIS WITH AND WITHOUT CONTRAST PANCREAS PROTOCOL CLINICAL HISTORY: Follow up on hypodense mass in pancreas. COMPARISON STUDY: CT of the abdomen and pelvis August 03, 2022. MRCP August 20, 2021. TECHNIQUE: Unenhanced, arterial and venous phase imaging was performed. Intravenous injection of 90 c c of Optiray 350 IV was uneventful. Automated exposure control was utilized for the study. A dose l owering technique was utilized adhering to the principles of ALARA. CT DOSE: 603.14 mGy.cm FINDINGS: Lung bases are unremarkable. No pneumatosis, free air or portal venous gas is present. Ther e is a 6 mm medial segment hepatic cyst. There are no suspicious hepatic lesions. Mild biliary ductal dilatation status post cholecystectomy is unchanged since CT of August 03, 2022. The spleen, adrena l glands and left kidney are unremarkable. There is a right renal cyst. Moderate peripancreatic stran ding and fluid has developed since prior CT of August 03, 2022. There is no pancreatic ductal dilata tion. A 1 cm cystic focus within the pancreatic head on axial image 165 of 461 is more well-defined t [place] on prior exam. No convincing evidence for gland necrosis. No peripancreatic fluid collections are present. Calcifications within the pancreatic head and the duodenal wall are again noted. At least o ne of the calculi may be within the ventral duct. Major vasculature is patent. No evidence for a jayde l obstruction. The appendix is normal. There has been interval development of apparent mild diffuse c olonic wall thickening. IMPRESSION: 1. Interval development of moderate peripancreatic stranding and fluid since prior CT. This is consis tent with acute pancreatitis. No peripancreatic fluid collection. Stable mild biliary ductal dilatati on, likely related to previous cholecystectomy. 2. 1 cm cystic focus within the pancreatic head, as described above. The CT appearance is nonspecific and this could reflect a developing intrapancreatic pseudocyst or dilated portion of the dorsal duct given possible intraductal calcification. A cystic neoplasm/lesion or small focus of gland necrosis are considered less likely however imaging follow-up is recommended to ensure stability/resolution. 3. Interval development of mild diffuse colonic wall thickening. This may reflect a mild colitis. No bowel obstruction. Normal appendix. ACT 112: Negative or not required by law. Electronically signed by: Urban Eastman M.D. 08/09/2022 1:45 PM
--- NOTE | 2022-08-09 14:29 | Gastrointestinal Consultation ---
Date of Consultation August 09, 2022 Assessment & Plan (1) Acute pancreatitis: Unclear etiology. Recommend: IV fluids and pain control. Obtain CT scan abdomen again if it shows acute pancreatitis then please obtain MRCP to evaluate his PD. OP EUS once the current attack resolves. History of Present Illness Reason for Consultation: Pancreatitis Attending Physician: Lukas Santos MD History of Present Illness 51 years old male patient admitted with abdominal pain and recurrent pancreatitis, was here 5 days ago with similar complains and discharged with resolution of his pain which recurred again, associated with nausea but no vomiting, Lipase mildly elevated. Had Hx of Choledocholithiasis in the past and ERCP x2. Still has pain now. No diarrhea or fever. Allergies Allergy/AdvReac Type Severity Reaction Status Date / Time No Known Allergies Allergy Verified 08/09/22 02:54 Home Medications Medication Instructions Recorded Confirmed Type aspirin 81 mg tablet,delayed 81 mg PO QAM 10/06/18 08/09/22 History release sertraline 50 mg tablet (Zoloft) 50 mg PO QAM 10/06/18 08/09/22 History nitroglycerin 0.4 mg sublingual 0.4 mg sublingual UD PRN Chest Pain 10/07/18 08/09/22 History tablet (Nitrostat) dicyclomine 10 mg capsule 10 mg PO BID PRN Abdominal Pain 12/06/20 08/09/22 History ezetimibe 10 mg tablet 10 mg PO QAM 12/06/20 08/09/22 History famotidine 40 mg tablet 40 mg PO HS PRN Acid Reflux 12/06/20 08/09/22 History isosorbide mononitrate 60 mg 60 mg PO DAILY 12/06/20 08/09/22 History tablet,extended release 24 hr magnesium oxide 400 mg PO QAM 12/06/20 08/09/22 History pantoprazole 40 mg tablet,delayed 40 mg PO QAM PRN Acid Reflux 08/20/21 08/09/22 History release metoprolol succinate 25 mg 25 mg PO DAILY 07/27/22 08/09/22 History tablet,extended release 24 hr rosuvastatin 40 mg tablet 40 mg PO DAILY 07/27/22 08/09/22 History ticagrelor 90 mg tablet (Brilinta) 60 mg PO BID 30 days #60 tabs 10/18/22 10/30/22 Rx Patient History Medical History Acute pancreatitis Barretts esophagus CAD (coronary artery disease) 2018-RCA stent x 2 07/2020-STEMI, s/p PCI to left circumflex with 2 MELLY. Post procedure complicated by V. fib arrest requiring defibrillation. 12/2020-NSTEMI s/p 3 Xience MELLY to the distal aspect of prior stent of the left posterior lateral branch vessel COVID-29 Oct 2021 Depression RADHA (generalized anxiety disorder) GERD (gastroesophageal reflux disease) Grade II diastolic dysfunction HLD (hyperlipidemia) Mobitz type 2 second degree atrioventricular block Splenic infarct Tobacco abuse Surgical History History of endoscopic retrograde cholangiopancreatography x2 (08/31, 09/30) History of vasectomy Hx laparoscopic cholecystectomy (08/22/21) Laparoscopic Cholecystectomy Dr. Davidson 08/22/2021 Family History Mother Gallbladder disease Sister Gallbladder disease Other Diabetes Stroke Denies family history of Pancreatic disease Social History Smoking Status: Current every day smoker Tobacco Type: Cigarettes Years Smoked: 31; Cigarettes Per Day: 2; Second Hand Exposure: No; Do You Dip or Chew Tobacco: No; Tobacco Cessation Education Requested by Patient: No Hx Alcohol Use: No Hx Substance Use: No Preferred Language: Kyr[place] Communication Ability: Effective Physical Aerodynamicist Required: No Beliefs That Will Affect Care: None marital status: Single Current Living Situation: Alone current occupational status: employed Other Information That Helps Us Care for You: No Feels Safe at Home: Yes Safety Concerns: Feels Safe At This Time Assistive Devices: None Review of Systems Constitutional: no fever, no chills, no fatigue and no weight loss Eyes: no eye pain and no worsening vision Ear, Nose, Mouth, Throat: no tinnitus, no dizziness, no nasal discharge and no epistaxis Respiratory: no cough, no dyspnea, no dyspnea on exertion and no wheezing Cardiovascular: no chest pain, no orthopnea, no palpitations and no edema Gastrointestinal: as per Subjective / HPI Musculoskeletal: no stiffness and no myalgia Neurologic: no localized weakness, no paralysis, no tremor(s) and no headache(s) Endocrine: no polydipsia and no polyuria Hematologic / Lymphatic: no easy bleeding and no night sweats Physical Exam Constitutional: + well hydrated, cooperative and comfortable Eyes: PERRL, conjunctivae normal, anicteric sclerae ENMT: external ear and nose normal, oropharynx normal Neck: normal visual inspection and trachea midline Respiratory: normal respiratory effort, lungs clear to auscultation Auscultation: no wheezes Cardiovascular: RRR, no murmur, no edema Gastrointestinal (Abdomen): normal bowel sounds, soft, nontender, no hepatosplenomegaly Musculoskeletal: no cyanosis or clubbing, extremities motor strength 5/5 Skin: no rashes, warm and dry Neurologic: awake; no focal motor deficits Motor/Sensory: no tremor Results & Data ([facility]) Vital Signs (Past 12 Hours) Vital Signs Temp Pulse Pulse Pulse Resp BP BP 08/09/22 07:40 36.5 C 61 16 146/83 H 08/09/22 06:00 36.6 C 58 L 16 154/92 H 08/09/22 03:16 62 18 08/09/22 02:55 36.6 C 73 18 159/94 H 08/09/22 02:34 36.2 C L 77 18 160/87 H Pulse Ox O2 Del Method 08/09/22 07:40 98 Room Air 08/09/22 06:00 98 Room Air 08/09/22 03:16 99 Room Air 08/09/22 02:55 97 Room Air 08/09/22 02:34 98 Room Air Laboratory Results Laboratory Results - last 24 hr 08/09/22 08/09/22 08/09/22 03:01 03:01 03:01 WBC 6.09 RBC 4.70 Hgb 16.6 Hct 45.2 MCV 96.2 MCH 35.3 H MCHC 36.7 H RDW Std Deviation 47.8 H RDW Coeff of Mckinley 13.5 Plt Count 307 MPV 8.7 L Immature Gran % (Auto) 0.3 Neut % (Auto) 57.6 Lymph % (Auto) 29.7 [place] % (Auto) 7.4 Eos % (Auto) 3.4 Baso % (Auto) 1.6 Neut # (Auto) 3.50 Lymph # (Auto) 1.81 [place] # (Auto) 0.45 Eos # (Auto) 0.21 Baso # (Auto) 0.10 Immature Gran # (Auto) 0.02 PT 10.9 INR 1.0 Sodium 132 L Potassium 3.8 Chloride 104 Carbon Dioxide 20 L Anion Gap 8 BUN 21 Creatinine 1.18 Est Cr Clr Drug Dosing 58.9 Est GFR ( Amer) 81.7 Est GFR (Non-Af Amer) 70.5 BUN/Creatinine Ratio 17.8 Glucose 98 Calcium 9.3 Total Bilirubin 0.6 AST 28 ALT 28 Alkaline Phosphatase 81 Total Protein 7.7 Albumin 4.7 Globulin 3.0 Albumin/Globulin Ratio 1.6 Lipase 370 H Urine Color Urine Appearance Urine pH Ur Specific [place] Urine Protein Urine Glucose (UA) Urine Ketones Urine Blood Urine Nitrite Urine Bilirubin Urine Urobilinogen Ur Leukocyte Esterase Urine WBC (Auto) Urine RBC (Auto) U Hyaline Cast (Auto) U Epithel Cells (Auto) Urine Bacteria (Auto) SARS-CoV-2, RNA, NAAT 08/09/22 08/09/22 04:49 09:00 WBC RBC Hgb Hct MCV MCH MCHC RDW Std Deviation RDW Coeff of Mckinley Plt Count MPV Immature Gran % (Auto) Neut % (Auto) Lymph % (Auto) [place] % (Auto) Eos % (Auto) Baso % (Auto) Neut # (Auto) Lymph # (Auto) [place] # (Auto) Eos # (Auto) Baso # (Auto) Immature Gran # (Auto) PT INR Sodium Potassium Chloride Carbon Dioxide Anion Gap BUN Creatinine Est Cr Clr Drug Dosing Est GFR ( Amer) Est GFR (Non-Af Amer) BUN/Creatinine Ratio Glucose Calcium Total Bilirubin AST ALT Alkaline Phosphatase Total Protein Albumin Globulin Albumin/Globulin Ratio Lipase Urine Color Yellow Urine Appearance Clear Urine pH 5.5 Ur Specific [place] 1.043 H Urine Protein Trace H Urine Glucose (UA) Negative Urine Ketones Trace H Urine Blood Trace H Urine Nitrite Negative Urine Bilirubin Negative Urine Urobilinogen Negative Ur Leukocyte Esterase Negative Urine WBC (Auto) 0 Urine RBC (Auto) 0-4 U Hyaline Cast (Auto) 1-5 U Epithel Cells (Auto) 10-20 H Urine Bacteria (Auto) Negative SARS-CoV-2, RNA, NAAT NEGATIVE (1) Acute pancreatitis Acute pancreatitis complication: unspecified Pancreatitis type: biliary Qualified Code(s): K85.10 - Biliary acute pancreatitis without necrosis or infection
--- NOTE | 2022-08-09 14:31 | Communication Note ---
Date of Service: August 09, 2022 Patient seen and examined at bedside. He continues to have epigastric pain radiating to his back. No complaints of chest pain, shortness of breath, fever, chills or urinary symptoms. He reports that the pain never improved after the discharge. He is voiding okay. On examination; Awake, alert oriented x3 Chestbilateral basal breath sound Abdomenepigastric tenderness present, soft, and nondistended Neurointact Assessment/plan Recurrent pancreatitis: CT abdomen and pelvis showed moderate. Pancreatic stranding consistent with acute pancreatitis. 1 cm cystic focus present in pancreatic head; well-defined. Calcification within the pancreatic head and duodenal wall. Plancontinue IV hydration. Continue pain control. Started on full liquid diet. GI on board; EUS scheduled as outpatient in October.
--- NOTE | 2022-08-09 17:03 | Magnetic Resonance Report ---
MRCP CLINICAL HISTORY: Acute pancreatitis. Eval of the pancreatic duct. TECHNIQUE: Utilizing a 1.5 Padmini magnet and dedicated coil, multiplanar, multiecho imaging of the [facility] abdomen was performed utilizing heavily T2 weighted pulsing sequences without IV contrast. COMPARISON STUDY: MRCP August 20, 2021. CT of the abdomen and pelvis performed earlier today. FINDINGS: This exam is moderately compromised by motion artifact. Peripancreatic fluid represents acu te pancreatitis. No well-defined peripancreatic fluid collection is present. 1.1 cm T2 hyperintense f ocus within the pancreatic head on axial FIESTA image 20 of 20 is noted. This corresponds to the find ing on abdominal CT. This is suboptimally assessed on this unenhanced examination. No additional cyst ic pancreatic lesions are noted. Caliber of the common bile duct is at the upper limits of normal fol lowing cholecystectomy. Sensitivity for detection of common bile duct calculi is diminished given mot ion artifact but none are identified. There is mild dilatation of the distal pancreatic duct, measuri ng 5 mm in caliber. No hepatic lesions are identified on unenhanced exam. The spleen, adrenal glands and left kidney are unremarkable. There is a probable right renal cyst. There is no hydronephrosis. IMPRESSION: 1. Peripancreatic fluid consistent with acute pancreatitis. No peripancreatic fluid collections ident ified. 2. Suboptimal evaluation of the pancreatic duct and the common bile duct due to motion artifact. No common bile duct calculi identified. Borderline dilatation of the common bile duct, likely related to cholecystectomy. Mild dilatation of the distal pancreatic duct. 3. 1.1 cm cystic focus within the pancreatic head, as described on CT performed earlier today. This i s better assessed on that exam. This can be followed on subsequent studies. ACT 112: Negative or not required by law. Electronically signed by: Urban Eastman M.D. 08/09/2022 5:00 PM
[2022-08-09] MEDS: TICAGRELOR 90 MG TAB PO SCH (22:08)
[2022-08-10] MEDS: HYDROmorphone INJ 0.5 MG/0.5 ML SYR IV PRN ×10 (00:29→22:52)
[2022-08-10] MEDS: LACTATED RINGER'S 1,000 ML IV SCH ×4 (01:22→19:59)
[2022-08-10] MEDS: ONDANSETRON INJ 2 MG/ML 2 ML VIAL IV PRN (02:32)
--- NOTE | 2022-08-10 05:09 | Electrocardiogram Report ---
Test Reason : Blood Pressure : / mmHG Vent. Rate : 061 BPM Atrial Rate : 061 BPM P-R Int : 116 ms QRS Dur : 090 ms QT Int : 388 ms P-R-T Axes : 073 023 015 degrees QTc Int : 390 ms Poor data quality, interpretation may be adversely affected Normal sinus rhythm Inferior infarct , age undetermined Abnormal ECG When compared with ECG of 03-AUG-2022 00:51, No significant change was found Confirmed by Jaren Crow ([id number]) on 08/10/2022 5:09:28 AM Referred By: REFERRED SELF Confirmed By:Jaren Crow
[2022-08-10 06:25] LABS: Basophils # (auto) 0.06 K/uL (0-0.2); Basophils % (auto) 0.7 %; Eosinophils # (auto) 0.16 K/uL (0-0.50); Eosinophils % (auto) 1.8 %; Hematocrit (blood only) 39.7 % (40.1-51.0); Hemoglobin 14.1 g/dl (14.0-18.0); Immature Granulocytes # (auto) 0.03 K/uL (0.00-0.02); Immature Granulocytes % (auto) 0.3 %; Lymphocytes # (auto) 1.09 K/uL (1.2-3.4); Lymphocytes % (auto) 12.1 %; Mean Corpuscular Hemoglobin 34.2 pg (25.0-34.0); Mean Corpuscular Hgb Conc 35.5 g/dL (32.0-36.0); Mean Corpuscular Volume 96.4 fL (80.0-100.0); Mean Platelet Volume 8.9 fL (9.4-12.4); Monocytes % (auto) 5.6 %; Neutrophils # (auto) 7.14 K/uL (1.4-6.5); Neutrophils % (auto) 79.5 %; Platelet Count 264 K/uL (130-400); RDW Coefficient of Variation 13.6 % (11.5-14.5); RDW Standard Deviation 48.4 fL (36.4-46.3); Red Blood Count 4.12 M/uL (4.63-6.08); White Blood Count 8.98 K/ul (4.8-10.8)
[2022-08-10 06:47] LABS: BUN Creatinine Ratio 13.8 (10-20); Calcium 8.7 mg/dl (8.5-10.1); Creatinine Clr Calc Pharmacy 78.7 ml/min; Est GFR (Non-African American) 99.2 ml/min; Magnesium 1.8 mg/dl (1.7-2.4)
[2022-08-10] MEDS: ASPIRIN 81 MG ECTAB PO SCH (08:56)
[2022-08-10] MEDS: TICAGRELOR 90 MG TAB PO SCH ×2 (08:56→19:59)
[2022-08-10] MEDS: FAMOTIDINE 20 MG in SYRINGE 3 ML IV SCH (08:56)
[2022-08-10] MEDS: MAGNESIUM OXIDE 400 MG TAB PO SCH (08:56)
[2022-08-10] MEDS: SERTRALINE HCL 50 MG TABLET PO SCH (08:57)
[2022-08-10] MEDS: ISOSORBIDE MONO EXTENDED REL 60 MG TABCR PO SCH (08:57)
[2022-08-10] MEDS: METOPROLOL SUCC 25MG EXT REL TAB PO SCH (08:57)
[2022-08-10] MEDS: ROSUVASTATIN CALCIUM 20 MG TAB PO SCH (08:57)
[2022-08-10] MEDS: ENOXAPARIN INJ 40 MG/0.4 ML SYR SQ SCH (08:57)
[2022-08-10] MEDS: EZETIMIBE 10 MG TABLET PO SCH (08:57)
--- NOTE | 2022-08-10 10:45 | Gastroenterology Progress Note ---
Date of Service August 10, 2022 Assessment & Plan (1) Pancreatitis: Plan: Pancreatitis without evidence of choledocholithiasis. Etiology is uncertain. He is improving but continue to use some narcotics. Plan Would stay with clear liquids p.o. until he is able to tolerate the discomfort without use of narcotics and may advance diet. Limit narcotics Plan for OP EUS in 6 wks. Our office will contact him to arrange. GI will sign off. Please notify us if new/worsening GI issues. Admission and Anticipated Discharge Date Admission Date: August 09, 2022 Subjective 51-year-old male admitted yesterday for abdominal pain, imaging with acute pancreatitis, 1cm cyst near the pancreatic head. Patient has history of recurrent pancreatitis. Tells me he has abstained from all alcohol for approximately 10 years. This morning he appeared very comfortable, and told me that he is currently comfortable but that he expects the pain to return. Continuing to ask for Dilaudid 0.5mg IV as recently as this morning for the pain. Has been n.p.o. thus far. Review of Systems Constitutional: no fever, no chills, no fatigue and no weight loss Eyes: no eye pain and no worsening vision Ear, Nose, Mouth, Throat: no tinnitus, no dizziness, no nasal discharge and no epistaxis Respiratory: no cough, no dyspnea, no dyspnea on exertion and no wheezing Cardiovascular: no chest pain, no orthopnea, no palpitations and no edema Gastrointestinal: as per Subjective / HPI Musculoskeletal: no stiffness and no myalgia Neurologic: no localized weakness, no paralysis, no tremor(s) and no headache(s) Endocrine: no polydipsia and no polyuria Hematologic / Lymphatic: no easy bleeding and no night sweats Physical Exam Constitutional: well developed, well nourished and + thin; no acute distress Fidgeting in the bed. Tells me it is hard for him to sit still. Eyes: PERRL, conjunctivae normal, anicteric sclerae ENMT: external ear and nose normal, oropharynx normal Neck: trachea midline, no thyromegaly Respiratory: normal respiratory effort, lungs clear to auscultation Cardiovascular: RRR, no murmur, no edema Gastrointestinal (Abdomen): Inspection/Auscultation: abdomen normal to inspection and normal bowel sounds; abdomen not distended Percussion/Palpation: + abdomen tender (mild epigastric tenderness w deep palpation) and abdomen soft Skin: no rashes, warm and dry Neurologic: PERRL, EOMI, accommodation nl, no face palsy, no dysarthria Psychiatric: A+Ox3, euthymic affect Lymphatic: no cervical or axillary lymphadenopathy Results & Data ([facility]) Vital Signs (Past 12 Hours) Vital Signs Temp Pulse Resp BP Pulse Ox O2 Del Method 08/10/22 07:48 36.8 C 75 16 134/85 97 Room Air Laboratory Results WBC 8.9, Hb 14, HCT 39, PLT S264, NA 132, K4.0, CL 102, CO2 23, BUN 12, CR 0.8, glucose 95. LFTs have been normal. Lipase 370 Diagnostic Findings CTAP panc protocol 08/09/22; 1. Interval development of moderate peripancreatic stranding and fluid since prior CT. This is consistent with acute pancreatitis. No peripancreatic fluid collection. Stable mild biliary ductal dilatation, likely related to previous cholecystectomy. 2. 1 cm cystic focus within the pancreatic head, as described above. The CT appearance is nonspecific and this could reflect a developing intrapancreatic pseudocyst or dilated portion of the dorsal duct given possible intraductal calcification. A cystic neoplasm/lesion or small focus of gland necrosis are considered less likely however imaging follow-up is recommended to ensure stability/resolution. 3. Interval development of mild diffuse colonic wall thickening. This may reflect a mild colitis. No bowel obstruction. Normal appendix. MRCP 08/09/22: 1. Peripancreatic fluid consistent with acute pancreatitis. No peripancreatic fluid collections identified. 2. Suboptimal evaluation of the pancreatic duct and the common bile duct due to motion artifact. No common bile duct calculi identified. Borderline dilatation of the common bile duct, likely related to cholecystectomy. Mild dilatation of the distal pancreatic duct. 3. 1.1 cm cystic focus within the pancreatic head, as described on CT performed earlier today. This is better assessed on that exam. This can be followed on subsequent studies.
--- NOTE | 2022-08-10 14:00 | Hospitalist Progress Note ---
Date of Service August 10, 2022 Assessment & Plan (1) Acute pancreatitis: (2) Hx laparoscopic cholecystectomy: (3) Lesion of pancreas: Plan: This is a 51-year-old male with past medical history significant for CAD, history of [place] x2 PCI with stents, history of acute pancreatitis, status post ERCP with stent placement, history of GERD, hyperlipidemia, anxiety, Casanova's esophagus, who recently was admitted a couple of times for pancreatitis, again comes back with abdominal pain. Acute Pancreatitis Recurrent Pancreatitis Cystic Lesion within Pancreatic head Underwent laparoscopic cholecystectomy in August 2021. Nonalcoholic, triglyceride within normal limits on 05/28 Admitted couple of times in last 2 weeks with acute pancreatitis. Afebrile, normotensive and saturating well in room air. Lipase on admission 370 CT abdomen and pelvis this admission showed moderate very pancreatic stranding and fluid consistent with acute pancreatitis. He also has a 1 cm cystic focus within the pancreatic head; stable from CT scan from 08/03. MRCP Unable t to optimally evaluate pancreatic duct and CBD due to motion artifact Plan; Continue on IV fluids with LR at 125 cc/h. Monitor urine output, hemodynamics. Continue on pain control with Dilaudid, oxycodone and Tylenol. Outpatient follow-up with GI after discharge for EUS. Chronic conditions History of coronary artery disease, status post stents: Continue his home medication of aspirin, Brilinta, Imdur, and beta shay and statin. 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 Generalized anxiety disorder and depression: Continue Zoloft. Deep venous thrombosis prophylaxis: Lovenox. Admission and Anticipated Discharge Date Admission Date: August 09, 2022 Subjective Patient seen and examined at bedside. He continues to complain of pain in his epigastric region. Has been requiring as needed Dilaudid for pain control. Had episode of urinary retention requiring straight cath yesterday. Review of Systems Review of Systems: All systems reviewed & are unremarkable except as noted in Subjective Physical Exam Physical Exam: Constitutional: WD/WN, vitals as above, NAD, sitting up in bed, pleasant, conversing easily Respiratory: normal respiratory effort, lungs clear to auscultation, no wheeze, rales, rhonchi. Normal insp/exp effort, no accessory muscle use Cardiovascular: RRR, no murmur, no edema Vessels: no JVD or carotid bruit Chest: normal inspection of chest Abdomen: Abdomen tender in epigastric region. Bowel sound present. Musculoskeletal: no cyanosis or clubbing, extremities motor strength 5/5 Skin: no rashes, warm and dry normal turgor Neurologic: PERRL, EOMI, accommodation nl, no face palsy, no dysarthria CN's II- XI intact bilaterally and moves all extremities Psychiatric: A+Ox3, euthymic affect Lymphatic: no cervical or axillary lymphadenopathy : deferred Results & Data Results & Data ([facility]) Vital Signs (Past 12 Hours) Vital Signs Temp Pulse Resp BP Pulse Ox O2 Del Method 08/10/22 07:48 36.8 C 75 16 134/85 97 Room Air Laboratory Results Laboratory Results WBC 8.98 K/ul (4.8-10.8) 08/10/22 05:52 RBC 4.12 M/uL (4.63-6.08) L 08/10/22 05:52 Hgb 14.1 g/dl (14.0-18.0) 08/10/22 05:52 Hct 39.7 % (40.1-51.0) L 08/10/22 05:52 MCV 96.4 fL (80.0-100.0) 08/10/22 05:52 MCH 34.2 pg (25.0-34.0) H 08/10/22 05:52 MCHC 35.5 g/dL (32.0-36.0) 08/10/22 05:52 RDW Std Deviation 48.4 fL (36.4-46.3) H 08/10/22 05:52 RDW Coeff of Mckinley 13.6 % (11.5-14.5) 08/10/22 05:52 Plt Count 264 K/uL (130-400) 08/10/22 05:52 MPV 8.9 fL (9.4-12.4) L 08/10/22 05:52 Immature Gran % (Auto) 0.3 % 08/10/22 05:52 Neut % (Auto) 79.5 % 08/10/22 05:52 Lymph % (Auto) 12.1 % 08/10/22 05:52 Wise % (Auto) 5.6 % 08/10/22 05:52 Eos % (Auto) 1.8 % 08/10/22 05:52 Baso % (Auto) 0.7 % 08/10/22 05:52 Neut # (Auto) 7.14 K/uL (1.4-6.5) H 08/10/22 05:52 Lymph # (Auto) 1.09 K/uL (1.2-3.4) L 08/10/22 05:52 Wise # (Auto) 0.50 K/uL (0.24-0.82) 08/10/22 05:52 Eos # (Auto) 0.16 K/uL (0-0.50) 08/10/22 05:52 Baso # (Auto) 0.06 K/uL (0-0.2) 08/10/22 05:52 Immature Gran # (Auto) 0.03 K/uL (0.00-0.02) H 08/10/22 05:52 PT 10.9 Seconds (9.0-12.0) 08/09/22 03:01 INR 1.0 (0.9-1.1) 08/09/22 03:01 Sodium 132 mmol/L (136-145) L 08/10/22 05:52 Potassium 4.0 mmol/L (3.5-5.1) 08/10/22 05:52 Chloride 102 mmol/L (98-107) 08/10/22 05:52 Carbon Dioxide 23 mmol/L (21-32) 08/10/22 05:52 Anion Gap 7 (3-11) 08/10/22 05:52 BUN 12 mg/dl (6-23) 08/10/22 05:52 Creatinine 0.87 mg/dl (0.6-1.4) D 08/10/22 05:52 Est Cr Clr Drug Dosing 78.7 ml/min 08/10/22 05:52 Est GFR ( Amer) 115.0 ml/min 08/10/22 05:52 Est GFR (Non-Af Amer) 99.2 ml/min 08/10/22 05:52 BUN/Creatinine Ratio 13.8 (10-20) 08/10/22 05:52 Glucose 95 mg/dl (70-99(Fasting)) 08/10/22 05:52 Calcium 8.7 mg/dl (8.5-10.1) 08/10/22 05:52 Magnesium 1.8 mg/dl (1.7-2.4) 08/10/22 05:52 Total Bilirubin 0.6 mg/dl (0.2-1.0) 08/09/22 03:01 AST 28 U/L (13-39) 08/09/22 03:01 ALT 28 U/L (7-52) 08/09/22 03:01 Alkaline Phosphatase 81 U/L (34-104) 08/09/22 03:01 Total Protein 7.7 gm/dl (6.0-8.3) 08/09/22 03:01 Albumin 4.7 gm/dl (3.4-5.0) 08/09/22 03:01 Globulin 3.0 gm/dl (2.5-4.0) 08/09/22 03:01 Albumin/Globulin Ratio 1.6 (0.9-2) 08/09/22 03:01 Lipase 370 U/L (11-82) H 08/09/22 03:01 Urine Color Yellow 08/09/22 09:00 Urine Appearance Clear (Clear) 08/09/22 09:00 Urine pH 5.5 (4.5-7.5) 08/09/22 09:00 Ur Specific [place] 1.043 (1.000-1.030) H 08/09/22 09:00 Urine Protein Trace (Negative) H 08/09/22 09:00 Urine Glucose (UA) Negative (Negative) 08/09/22 09:00 Urine Ketones Trace (Negative) H 08/09/22 09:00 Urine Blood Trace (Negative) H 08/09/22 09:00 Urine Nitrite Negative (Negative) 08/09/22 09:00 Urine Bilirubin Negative (Negative) 08/09/22 09:00 Urine Urobilinogen Negative (Negative) 08/09/22 09:00 Ur Leukocyte Esterase Negative (Negative) 08/09/22 09:00 Urine WBC (Auto) 0 /hpf (0-5) 08/09/22 09:00 Urine RBC (Auto) 0-4 /hpf (0-4) 08/09/22 09:00 U Hyaline Cast (Auto) 1-5 /lpf (0-5) 08/09/22 09:00 U Epithel Cells (Auto) 10-20 /lpf (0-5) H 08/09/22 09:00 Urine Bacteria (Auto) Negative (Negative) 08/09/22 09:00 SARS-CoV-2, RNA, NAAT NEGATIVE (NEGATIVE) 08/09/22 04:49 Impressions Abdomen/Pelvis CT 08/09/22 12:26 CT OF THE ABDOMEN AND PELVIS WITH AND WITHOUT CONTRAST PANCREAS PROTOCOL CLINICAL HISTORY: Follow up on hypodense mass in pancreas. COMPARISON STUDY: CT of the abdomen and pelvis August 03, 2022. MRCP August 20, 2021. TECHNIQUE: Unenhanced, arterial and venous phase imaging was performed. Intravenous injection of 90 cc of Optiray 350 IV was uneventful. Automated exposure control was utilized for the study. A dose lowering technique was utilized adhering to the principles of ALARA. CT DOSE: 603.14 mGy.cm FINDINGS: Lung bases are unremarkable. No pneumatosis, free air or portal venous gas is present. There is a 6 mm medial segment hepatic cyst. There are no chandler spicious hepatic lesions. Mild biliary ductal dilatation status post cholecystectomy is unchanged since CT of August 03, 2022. The spleen, adrenal glands and left kidney are unremarkable. There is a right renal cyst. Moderate peripancreatic stranding and fluid has developed since prior CT of August 03, 2022. There is no pancreatic ductal dilatation. A 1 cm cystic focus within the pancreatic head on axial image 165 of 461 is more well-defined than on prior exam. No convincing evidence for gland necrosis. No peripancreatic fluid collections are present. Calcifications within the pancreatic head and the duodenal wall are again noted. At least one of the calculi may be within the ventral duct. Major vasculature is patent. No evidence for a bowel obstruction. The appendix is normal. There has been interval development of apparent mild diffuse colonic wall thickening. IMPRESSION: 1. Interval development of moderate peripancreatic stranding and fluid since prior CT. This is consistent with acute pancreatitis. No peripancreatic fluid collection. Stable mild biliary ductal dilatation, likely related to previous cholecystectomy. 2. 1 cm cystic focus within the pancreatic head, as described above. The CT appearance is nonspecific and this could reflect a developing intrapancreatic pseudocyst or dilated portion of the dorsal duct given possible intraductal calcification. A cystic neoplasm/lesion or small focus of gland necrosis are considered less likely however imaging follow-up is recommended to ensure stability/resolution. 3. Interval development of mild diffuse colonic wall thickening. This may reflect a mild colitis. No bowel obstruction. Normal appendix. ACT 112: Negative or not required by law. Electronically signed by: Urban Eastman M.D. 08/09/2022 1:45 PM Cholangiopancreatography MRI 08/09/22 15:14 MRCP CLINICAL HISTORY: Acute pancreatitis. Eval of the pancreatic duct. TECHNIQUE: Utilizing a 1.5 Padmini magnet and dedicated coil, multiplanar, multiecho imaging of the upper abdomen was performed utilizing heavily T2 weighted pulsing sequences without IV contrast. COMPARISON STUDY: MRCP August 20, 2021. CT of the abdomen and pelvis performed earlier today. FINDINGS: This exam is moderately compromised by motion artifact. Peripancreatic fluid represents acute pancreatitis. No well-defined peripancreatic fluid collection is present. 1.1 cm T2 hyperintense focus within the pancreatic head on axial FIESTA image 20 of 20 is noted. This corresponds to the finding on abdominal CT. This is suboptimally assessed on this unenhanced examination. No additional cystic pancreatic lesions are noted. Caliber of the common bile duct is at the upper limits of normal following cholecystectomy. Sensitivity for detection of common bile duct calculi is diminished given motion artifact but none are identified. There is mild dilatation of the distal pancreatic duct, measuring 5 mm in caliber. No hepatic lesions are identified on unenhanced exam. The spleen, adrenal glands and left kidney are unremarkable. There is a probable right renal cyst. There is no hydronephrosis. IMPRESSION: 1. Peripancreatic fluid consistent with acute pancreatitis. No peripancreatic fluid collections identified. 2. Suboptimal evaluation of the pancreatic duct and the common bile duct due to motion artifact. No common bile duct calculi identified. Borderline dilatation of the common bile duct, likely related to cholecystectomy. Mild dilatation of the distal pancreatic duct. 3. 1.1 cm cystic focus within the pancreatic head, as described on CT performed earlier today. This is better assessed on that exam. This can be followed on subsequent studies. ACT 112: Negative or not required by law. Electronically signed by: Urban Eastman M.D. 08/09/2022 5:00 PM (1) Acute pancreatitis Acute pancreatitis complication: unspecified Pancreatitis type: biliary Qualified Code(s): K85.10 - Biliary acute pancreatitis without necrosis or infection
[2022-08-11] MEDS: oxyCODONE HCL IR 5 MG TAB (IMMEDIATE RELEASE) PO PRN ×2 (00:14→19:31)
[2022-08-11] MEDS: HYDROmorphone INJ 0.5 MG/0.5 ML SYR IV PRN ×8 (01:13→20:36)
[2022-08-11] MEDS: LACTATED RINGER'S 1,000 ML IV SCH ×3 (04:00→18:41)
[2022-08-11] MEDS: TICAGRELOR 90 MG TAB PO SCH ×2 (09:03→20:37)
[2022-08-11] MEDS: EZETIMIBE 10 MG TABLET PO SCH (09:04)
[2022-08-11] MEDS: ENOXAPARIN INJ 40 MG/0.4 ML SYR SQ SCH (09:05)
[2022-08-11] MEDS: METOPROLOL SUCC 25MG EXT REL TAB PO SCH (09:05)
[2022-08-11] MEDS: ROSUVASTATIN CALCIUM 20 MG TAB PO SCH (09:05)
[2022-08-11] MEDS: SERTRALINE HCL 50 MG TABLET PO SCH (09:05)
[2022-08-11] MEDS: MAGNESIUM OXIDE 400 MG TAB PO SCH (09:05)
[2022-08-11] MEDS: ASPIRIN 81 MG ECTAB PO SCH (09:05)
[2022-08-11] MEDS: PANTOprazole 40 MG TAB PO SCH (09:06)
[2022-08-11] MEDS: ISOSORBIDE MONO EXTENDED REL 60 MG TABCR PO SCH (09:07)
[2022-08-11 10:11] LABS: Basophils # (auto) 0.04 K/uL (0-0.2); Basophils % (auto) 0.7 %; Eosinophils # (auto) 0.12 K/uL (0-0.50); Eosinophils % (auto) 2.1 %; Hematocrit (blood only) 35.4 % (40.1-51.0); Hemoglobin 12.6 g/dl (14.0-18.0); Immature Granulocytes # (auto) 0.02 K/uL (0.00-0.02); Immature Granulocytes % (auto) 0.3 %; Lymphocytes # (auto) 1.16 K/uL (1.2-3.4); Lymphocytes % (auto) 20.2 %; Mean Corpuscular Hemoglobin 33.6 pg (25.0-34.0); Mean Corpuscular Hgb Conc 35.6 g/dL (32.0-36.0); Mean Corpuscular Volume 94.4 fL (80.0-100.0); Mean Platelet Volume 9.2 fL (9.4-12.4); Monocytes # (auto) 0.21 K/uL (0.24-0.82); Monocytes % (auto) 3.7 %; Neutrophils # (auto) 4.18 K/uL (1.4-6.5); Platelet Count 235 K/uL (130-400); RDW Standard Deviation 44.8 fL (36.4-46.3); Red Blood Count 3.75 M/uL (4.63-6.08); White Blood Count 5.73 K/ul (4.8-10.8)
[2022-08-11 10:54] LABS: Albumin Globulin Ratio 1.6 (0.9-2); Albumin Level 3.6 gm/dl (3.4-5.0); BUN Creatinine Ratio 7.9 (10-20); Bilirubin,Total 0.6 mg/dl (0.2-1.0); Calcium 8.8 mg/dl (8.5-10.1); Creatinine Clr Calc Pharmacy 76.9 ml/min; Est GFR (African American) 113.9 ml/min; Est GFR (Non-African American) 98.3 ml/min; Globulin 2.3 gm/dl (2.5-4.0); Potassium 3.9 mmol/L (3.5-5.1); Total Protein 5.9 gm/dl (6.0-8.3)
[2022-08-11] MEDS: ONDANSETRON INJ 2 MG/ML 2 ML VIAL IV PRN ×2 (11:01→19:29)
--- NOTE | 2022-08-11 12:23 | Hospitalist Progress Note ---
Date of Service August 11, 2022 Assessment & Plan (1) Acute pancreatitis: (2) Hx laparoscopic cholecystectomy: (3) Lesion of pancreas: Plan: This is a 51-year-old male with past medical history significant for CAD, history of [place] x2 PCI with stents, history of acute pancreatitis, status post ERCP with stent placement, history of GERD, hyperlipidemia, anxiety, Casanova's esophagus, who recently was admitted a couple of times for pancreatitis, again comes back with abdominal pain. Acute Pancreatitis Recurrent Pancreatitis Cystic Lesion within Pancreatic head Underwent laparoscopic cholecystectomy in August 2021. Nonalcoholic, Admitted couple of times in last 2 weeks with acute pancreatitis. Afebrile, normotensive and saturating well in room air. Lipase on admission 370 CT abdomen and pelvis this admission showed moderate very pancreatic stranding and fluid consistent with acute pancreatitis. He also has a 1 cm cystic focus within the pancreatic head; stable from CT scan from 08/03. MRCP Unable t to optimally evaluate pancreatic duct and CBD due to motion artifact Plan; Continue on IV fluids with LR at 125 cc/h. Monitor urine output, hemodynamics.will advance diet as tolerated to low fat. Continue on pain control with Dilaudid, oxycodone and Tylenol. Outpatient follow-up with GI after discharge for EUS. Chronic conditions History of coronary artery disease, status post stents: Continue his home medication of aspirin, Brilinta, Imdur, and beta shay and statin. 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 Generalized anxiety disorder and depression: Continue Zoloft. Deep venous thrombosis prophylaxis: Lovenox. Admission and Anticipated Discharge Date Admission Date: August 09, 2022 Subjective Patient seen and examined at bedside. Continues to complain of abdominal pain and is requiring Dilaudid. He is voiding urine without any issues. No complaint of nausea, vomiting, dizziness, chest pain. Review of Systems Review of Systems: All systems reviewed & are unremarkable except as noted in Subjective Physical Exam Physical Exam: Constitutional: WD/WN, vitals as above, NAD, sitting up in bed, pleasant, conversing easily Respiratory: normal respiratory effort, lungs clear to auscultation, no wheeze, rales, rhonchi. Normal insp/exp effort, no accessory muscle use Cardiovascular: RRR, no murmur, no edema Vessels: no JVD or carotid bruit Chest: normal inspection of chest Abdomen: Abdomen tender in epigastric region. Bowel sound present. Musculoskeletal: no cyanosis or clubbing, extremities motor strength 5/5 Skin: no rashes, warm and dry normal turgor Neurologic: PERRL, EOMI, accommodation nl, no face palsy, no dysarthria CN's II- XI intact bilaterally and moves all extremities Psychiatric: A+Ox3, euthymic affect Lymphatic: no cervical or axillary lymphadenopathy : deferred Results & Data Results & Data ([facility]) Vital Signs (Past 12 Hours) Vital Signs Temp Pulse Resp BP Pulse Ox O2 Del Method 08/11/22 08:30 Room Air 08/11/22 08:07 36.9 C 68 18 153/81 H 98 Room Air Laboratory Results Laboratory Results WBC 5.73 K/ul (4.8-10.8) 08/11/22 09:37 RBC 3.75 M/uL (4.63-6.08) L 08/11/22 09:37 Hgb 12.6 g/dl (14.0-18.0) L 08/11/22 09:37 Hct 35.4 % (40.1-51.0) L 08/11/22 09:37 MCV 94.4 fL (80.0-100.0) 08/11/22 09:37 MCH 33.6 pg (25.0-34.0) 08/11/22 09:37 MCHC 35.6 g/dL (32.0-36.0) 08/11/22 09:37 RDW Std Deviation 44.8 fL (36.4-46.3) 08/11/22 09:37 RDW Coeff of Mckinley 13.0 % (11.5-14.5) 08/11/22 09:37 Plt Count 235 K/uL (130-400) 08/11/22 09:37 MPV 9.2 fL (9.4-12.4) L 08/11/22 09:37 Immature Gran % (Auto) 0.3 % 08/11/22 09:37 Neut % (Auto) 73.0 % 08/11/22 09:37 Lymph % (Auto) 20.2 % 08/11/22 09:37 Hamilton % (Auto) 3.7 % 08/11/22 09:37 Eos % (Auto) 2.1 % 08/11/22 09:37 Baso % (Auto) 0.7 % 08/11/22 09:37 Neut # (Auto) 4.18 K/uL (1.4-6.5) 08/11/22 09:37 Lymph # (Auto) 1.16 K/uL (1.2-3.4) L 08/11/22 09:37 Hamilton # (Auto) 0.21 K/uL (0.24-0.82) L 08/11/22 09:37 Eos # (Auto) 0.12 K/uL (0-0.50) 08/11/22 09:37 Baso # (Auto) 0.04 K/uL (0-0.2) 08/11/22 09:37 Immature Gran # (Auto) 0.02 K/uL (0.00-0.02) 08/11/22 09:37 PT 10.9 Seconds (9.0-12.0) 08/09/22 03:01 INR 1.0 (0.9-1.1) 08/09/22 03:01 Sodium 135 mmol/L (136-145) L 08/11/22 09:37 Potassium 3.9 mmol/L (3.5-5.1) 08/11/22 09:37 Chloride 101 mmol/L (98-107) 08/11/22 09:37 Carbon Dioxide 30 mmol/L (21-32) 08/11/22 09:37 Anion Gap 4 (3-11) 08/11/22 09:37 BUN 7 mg/dl (6-23) 08/11/22 09:37 Creatinine 0.89 mg/dl (0.6-1.4) 08/11/22 09:37 Est Cr Clr Drug Dosing 76.9 ml/min 08/11/22 09:37 Est GFR ( Amer) 113.9 ml/min 08/11/22 09:37 Est GFR (Non-Af Amer) 98.3 ml/min 08/11/22 09:37 BUN/Creatinine Ratio 7.9 (10-20) L 08/11/22 09:37 Glucose 171 mg/dl (70-99(Fasting)) H 08/11/22 09:37 Calcium 8.8 mg/dl (8.5-10.1) 08/11/22 09:37 Magnesium 1.8 mg/dl (1.7-2.4) 08/10/22 05:52 Total Bilirubin 0.6 mg/dl (0.2-1.0) 08/11/22 09:37 AST 31 U/L (13-39) 08/11/22 09:37 ALT 46 U/L (7-52) 08/11/22 09:37 Alkaline Phosphatase 95 U/L (34-104) 08/11/22 09:37 Total Protein 5.9 gm/dl (6.0-8.3) L 08/11/22 09:37 Albumin 3.6 gm/dl (3.4-5.0) 08/11/22 09:37 Globulin 2.3 gm/dl (2.5-4.0) L 08/11/22 09:37 Albumin/Globulin Ratio 1.6 (0.9-2) 08/11/22 09:37 Lipase 370 U/L (11-82) H 08/09/22 03:01 Urine Color Yellow 08/09/22 09:00 Urine Appearance Clear (Clear) 08/09/22 09:00 Urine pH 5.5 (4.5-7.5) 08/09/22 09:00 Ur Specific [place] 1.043 (1.000-1.030) H 08/09/22 09:00 Urine Protein Trace (Negative) H 08/09/22 09:00 Urine Glucose (UA) Negative (Negative) 08/09/22 09:00 Urine Ketones Trace (Negative) H 08/09/22 09:00 Urine Blood Trace (Negative) H 08/09/22 09:00 Urine Nitrite Negative (Negative) 08/09/22 09:00 Urine Bilirubin Negative (Negative) 08/09/22 09:00 Urine Urobilinogen Negative (Negative) 08/09/22 09:00 Ur Leukocyte Esterase Negative (Negative) 08/09/22 09:00 Urine WBC (Auto) 0 /hpf (0-5) 08/09/22 09:00 Urine RBC (Auto) 0-4 /hpf (0-4) 08/09/22 09:00 U Hyaline Cast (Auto) 1-5 /lpf (0-5) 08/09/22 09:00 U Epithel Cells (Auto) 10-20 /lpf (0-5) H 08/09/22 09:00 Urine Bacteria (Auto) Negative (Negative) 08/09/22 09:00 SARS-CoV-2, RNA, NAAT NEGATIVE (NEGATIVE) 08/09/22 04:49 Impressions Abdomen/Pelvis CT 08/09/22 12:26 CT OF THE ABDOMEN AND PELVIS WITH AND WITHOUT CONTRAST PANCREAS PROTOCOL CLINICAL HISTORY: Follow up on hypodense mass in pancreas. COMPARISON STUDY: CT of the abdomen and pelvis August 03, 2022. MRCP August 20, 2021. TECHNIQUE: Unenhanced, arterial and venous phase imaging was performed. Intravenous injection of 90 cc of Optiray 350 IV was uneventful. Automated exposure control was utilized for the study. A dose lowering technique was utilized adhering to the principles of ALARA. CT DOSE: 603.14 mGy.cm FINDINGS: Lung bases are unremarkable. No pneumatosis, free air or portal venous gas is present. There is a 6 mm medial segment hepatic cyst. There are no suspicious hepatic lesions. Mild biliary ductal dilatation status post cholecystectomy is unchanged since CT of August 03, 2022. The spleen, adrenal glands and left kidney are unremarkable. There is a right renal cyst. Moderate peripancreatic stranding and fluid has developed since prior CT of August 03, 2022. There is no pancreatic ductal dilatation. A 1 cm cystic focus within the pancreatic head on axial image 165 of 461 is more well-defined than on prior exam. No convincing evidence for gland necrosis. No peripancreatic fluid collections are present. Calcifications within the pancreatic head and the duodenal wall are again noted. At least one of the calculi may be within the ventral duct. Major vasculature is patent. No evidence for a bowel obstruction. The appendix is normal. There has been interval development of apparent mild diffuse colonic wall thickening. IMPRESSION: 1. Interval development of moderate peripancreatic stranding and fluid since prior CT. This is consistent with acute pancreatitis. No peripancreatic fluid collection. Stable mild biliary ductal dilatation, likely related to previous cholecystectomy. 2. 1 cm cystic focus within the pancreatic head, as described above. The CT appearance is nonspecific and this could reflect a developing intrapancreatic pseudocyst or dilated portion of the dorsal duct given possible intraductal calcification. A cystic neoplasm/lesion or small focus of gland necrosis are considered less likely however imaging follow-up is recommended to ensure stability/resolution. 3. Interval development of mild diffuse colonic wall thickening. This may reflect a mild colitis. No bowel obstruction. Normal appendix. ACT 112: Negative or not required by law. Electronically signed by: Urban Eastman M.D. 08/09/2022 1:45 PM Cholangiopancreatography MRI 08/09/22 15:14 MRCP CLINICAL HISTORY: Acute pancreatitis. Eval of the pancreatic duct. TECHNIQUE: Utilizing a 1.5 Padmini magnet and dedicated coil, multiplanar, multiecho imaging of the upper abdomen was performed utilizing heavily T2 weighted pulsing sequences without IV contrast. COMPARISON STUDY: MRCP August 20, 2021. CT of the abdomen and pelvis performed earlier today. FINDINGS: This exam is moderately compromised by motion artifact. Peripancreatic fluid represents acute pancreatitis. No well-defined peripancreatic fluid collection is present. 1.1 cm T2 hyperintense focus within the pancreatic head on axial FIESTA image 20 of 20 is noted. This corresponds to the finding on abdominal CT. This is suboptimally assessed on this unenhanced examination. No additional cystic pancreatic lesions are noted. Caliber of the common bile duct is at the upper limits of normal following cholecystectomy. Sensitivity for detection of common bile duct calculi is diminished given motion artifact but none are identified. There is mild dilatation of the distal pancreatic duct, measuring 5 mm in caliber. No hepatic lesions are identified on unenhanced exam. The spleen, adrenal glands and left kidney are unremarkable. There is a probable right renal cyst. There is no hydronephrosis. IMPRESSION: 1. Peripancreatic fluid consistent with acute pancreatitis. No peripancreatic fluid collections identified. 2. Suboptimal evaluation of the pancreatic duct and the common bile duct due to motion artifact. No common bile duct calculi identified. Borderline dilatation of the common bile duct, likely related to cholecystectomy. Mild dilatation of the distal pancreatic duct. 3. 1.1 cm cystic focus within the pancreatic head, as described on CT performed earlier today. This is better assessed on that exam. This can be followed on subsequent studies. ACT 112: Negative or not required by law. Electronically signed by: Urban Eastman M.D. 08/09/2022 5:00 PM (1) Acute pancreatitis Acute pancreatitis complication: unspecified Pancreatitis type: biliary Qualified Code(s): K85.10 - Biliary acute pancreatitis without necrosis or infection
[2022-08-12] MEDS: HYDROmorphone INJ 0.5 MG/0.5 ML SYR IV PRN ×5 (00:21→21:29)
[2022-08-12] MEDS: LACTATED RINGER'S 1,000 ML IV SCH ×3 (02:57→20:43)
[2022-08-12] MEDS: oxyCODONE HCL IR 5 MG TAB (IMMEDIATE RELEASE) PO PRN ×2 (07:33→14:50)
[2022-08-12 08:36] LABS: Basophils # (auto) 0.04 K/uL (0-0.2); Basophils % (auto) 0.8 %; Eosinophils # (auto) 0.15 K/uL (0-0.50); Eosinophils % (auto) 2.9 %; Hematocrit (blood only) 37.4 % (40.1-51.0); Hemoglobin 13.5 g/dl (14.0-18.0); Immature Granulocytes # (auto) 0.01 K/uL (0.00-0.02); Immature Granulocytes % (auto) 0.2 %; Lymphocytes # (auto) 1.27 K/uL (1.2-3.4); Lymphocytes % (auto) 24.8 %; Mean Corpuscular Hemoglobin 34.8 pg (25.0-34.0); Mean Corpuscular Hgb Conc 36.1 g/dL (32.0-36.0); Mean Corpuscular Volume 96.4 fL (80.0-100.0); Mean Platelet Volume 9.1 fL (9.4-12.4); Monocytes # (auto) 0.33 K/uL (0.24-0.82); Monocytes % (auto) 6.4 %; Neutrophils # (auto) 3.32 K/uL (1.4-6.5); Neutrophils % (auto) 64.9 %; Platelet Count 271 K/uL (130-400); RDW Coefficient of Variation 13.2 % (11.5-14.5); RDW Standard Deviation 46.5 fL (36.4-46.3); Red Blood Count 3.88 M/uL (4.63-6.08); White Blood Count 5.12 K/ul (4.8-10.8)
[2022-08-12] MEDS: ISOSORBIDE MONO EXTENDED REL 60 MG TABCR PO SCH (08:49)
[2022-08-12] MEDS: ASPIRIN 81 MG ECTAB PO SCH (08:50)
[2022-08-12] MEDS: MAGNESIUM OXIDE 400 MG TAB PO SCH (08:50)
[2022-08-12] MEDS: TICAGRELOR 90 MG TAB PO SCH ×2 (08:50→20:42)
[2022-08-12] MEDS: PANTOprazole 40 MG TAB PO SCH (08:51)
[2022-08-12] MEDS: ENOXAPARIN INJ 40 MG/0.4 ML SYR SQ SCH (08:51)
[2022-08-12] MEDS: SERTRALINE HCL 50 MG TABLET PO SCH (08:51)
[2022-08-12] MEDS: EZETIMIBE 10 MG TABLET PO SCH (08:51)
[2022-08-12] MEDS: ROSUVASTATIN CALCIUM 20 MG TAB PO SCH (08:51)
[2022-08-12] MEDS: METOPROLOL SUCC 25MG EXT REL TAB PO SCH (08:51)
[2022-08-12 09:09] LABS: BUN Creatinine Ratio 6.6 (10-20); Calcium 9.1 mg/dl (8.5-10.1); Creatinine Clr Calc Pharmacy 75.2 ml/min; Est GFR (African American) 111.9 ml/min; Est GFR (Non-African American) 96.6 ml/min
[2022-08-12] MEDS: ONDANSETRON INJ 2 MG/ML 2 ML VIAL IV PRN (11:54)
[2022-08-12] MEDS ORDERED: OPTIRAY 350 100ml IV ONE (13:13)
--- NOTE | 2022-08-12 13:28 | Gastroenterology Progress Note ---
Date of Service August 12, 2022 Assessment & Plan (1) Pancreatitis: Plan: Pancreatitis without evidence of choledocholithiasis. Etiology is uncertain. He is improving but continue to use some narcotics. Plan Would stay with clear liquids p.o. until he is able to tolerate the discomfort without use of narcotics and may advance diet. Limit narcotics Plan for OP EUS in 6 wks. Our office will contact him to arrange. Agree with repeat LFT's today as well as CT scan and awaiting results Admission and Anticipated Discharge Date Admission Date: August 09, 2022 Subjective looks well talking in room without c/o Pain after eating eggs this am Physical Exam Constitutional: well developed, well nourished, + well hydrated, + thin, cooperative and comfortable; no acute distress Eyes: PERRL, conjunctivae normal, anicteric sclerae ENMT: external ear and nose normal, oropharynx normal Neck: trachea midline, no thyromegaly normal visual inspection and trachea midline Respiratory: normal respiratory effort, lungs clear to auscultation Auscultation: no wheezes Cardiovascular: RRR, no murmur, no edema Gastrointestinal (Abdomen): normal bowel sounds, soft, nontender, no hepatosplenomegaly Inspection/Auscultation: abdomen normal to inspection and normal bowel sounds; abdomen not distended Percussion/Palpation: + abdomen tender (mild epigastric tenderness w deep palpation) and abdomen soft Musculoskeletal: no cyanosis or clubbing, extremities motor strength 5/5 Skin: no rashes, warm and dry Neurologic: PERRL, EOMI, accommodation nl, no face palsy, no dysarthria awake; no focal motor deficits Motor/Sensory: no tremor Psychiatric: A+Ox3, euthymic affect Lymphatic: no cervical or axillary lymphadenopathy Results & Data ([facility]) Vital Signs (Past 12 Hours) Vital Signs Temp Pulse Resp BP Pulse Ox O2 Del Method 08/12/22 07:46 36.6 C 78 16 167/90 H 96 Room Air
--- NOTE | 2022-08-12 13:38 | CT Scan Report ---
CT OF THE ABDOMEN AND PELVIS WITH CONTRAST CLINICAL HISTORY: Pancreatitis. COMPARISON STUDY: CT of the abdomen and pelvis and MRCP August 09, 2022. TECHNIQUE: Following IV administration of 60 mL of Optiray, axial images of the abdomen and pelvis we re obtained from the lung bases to the proximal femurs. Images were reviewed in the axial, sagittal, and coronal planes. IV contrast was administered without complication. Automated exposure control wa s utilized for the study. A dose lowering technique was utilized adhering to the principles of ALARA . CT DOSE: 289.91 mGycm FINDINGS: Lung bases are unremarkable. Pneumobilia is noted. Subcentimeter medial segment hepatic les ion is unchanged since CT of September 21, 2021. This is benign. Gallbladder is surgically absent. Kiran creatic glandular atrophy is again noted. Pancreatic calcifications are noted. Calcifications within and adjacent to the pancreatic head and second portion of the duodenum are again noted. The peripancr eatic fluid and stranding has significantly improved since CT of August 09, 2022. No peripancreatic fluid collection is noted. A hypodensity within the pancreatic head is less conspicuous on this exami nation. The pancreatic head and uncinate process are slightly edematous and heterogeneous. A right re nal cyst is present. Spleen, adrenal glands and left kidney are normal. There is no evidence for a isabel wel obstruction. The appendix is unremarkable. Major vasculature is patent. There is moderate plaque of the abdominal aorta. The main, left and right portal veins are patent. IMPRESSION: 1. Acute pancreatitis with significant interval improvement in peripancreatic fluid and stranding sin ce prior CT. No evidence for gland necrosis. No pancreatic ductal dilatation. Decreased conspicuity o f the previously described pancreatic head hypodense focus. Continued imaging follow-up to ensure com plete resolution is recommended. 2. No bowel obstruction. No bowel wall thickening. ACT 112: Negative or not required by law. Electronically signed by: Urban Eastman M.D. 08/12/2022 1:36 PM
[2022-08-12 14:11] LABS: Bilirubin Direct 0.2 mg/dl (0-0.2); Bilirubin,Total 0.6 mg/dl (0.2-1.0); Total Protein 6.6 gm/dl (6.0-8.3)
--- NOTE | 2022-08-12 17:38 | Hospitalist Progress Note ---
Date of Service August 12, 2022 Assessment & Plan (1) Acute pancreatitis: (2) Hx laparoscopic cholecystectomy: (3) Lesion of pancreas: Plan: Patient is a 51 yr male with h/o CAD, [place] x2 PCI with stents, history of acute pancreatitis, status post ERCP with stent placement, history of GERD, hyperlipidemia, anxiety, Casanova's esophagus, who recently was admitted a couple of times for pancreatitis, again comes back with abdominal pain. Acute Pancreatitis Recurrent Pancreatitis Cystic Lesion within Pancreatic head --s/p laparoscopic cholecystectomy in August 2021. Nonalcoholic --CT ABD:Interval development of moderate peripancreatic stranding and fluid since prior CT. This is consistent with acute pancreatitis. No peripancreatic fluid collection. Stable mild biliary ductal dilatation, likely related to previous cholecystectomy. 1 cm cystic focus within the pancreatic head, as described above. The CT appearance is nonspecific and this could reflect a developing intrapancreatic pseudocyst or dilated portion of the dorsal duct given possible intraductal calcification. A cystic neoplasm/lesion or small focus of gland necrosis are considered less likely however imaging follow-up is recommended to ensure stability/resolution. Interval development of mild diffuse colonic wall thickening. This may reflect a mild colitis. No bowel obstruction. Normal appendix. --MRCP:Peripancreatic fluid consistent with acute pancreatitis. No peripancreatic fluid collections identified. Suboptimal evaluation of the pancreatic duct and the common bile duct due to motion artifact. No common bile duct calculi identified. Borderline dilatation of the common bile duct, likely related to cholecystectomy. Mild dilatation of the distal pancreatic duct. 1.1 cm cystic focus within the pancreatic head, as described on CT performed earlier today. This is better assessed on that exam. This can be followed on subsequent studies. --Repeat CT ABD:Acute pancreatitis with significant interval improvement in peripancreatic fluid and stranding since prior CT. No evidence for gland necrosis. No pancreatic ductal dilatation. Decreased conspicuity of the previously described pancreatic head hypodense focus. Continued imaging follow- up to ensure complete resolution is recommended. No bowel obstruction. No bowel wall thickening. --Normal LFTs -- Continue IV fluids Pain control Minimize narcotic use as able Clear liquid diet today Appreciate GI input Slowly advance diet as tolerated Needs outpatient endoscopic ultrasound in 6 weeks CAD S/P Stents Continue aspirin, Brilinta, Imdur, and beta shay and statin. Casanova's esophagitis: on Protonix Hyperlipidemia: On statin. Generalized anxiety disorder and depression: Continue Zoloft. DVT Px: Lovenox SQ Admission and Anticipated Discharge Date Admission Date: August 09, 2022 Subjective Patient is seen and examined at bedside States having abdominal pain with food intake Also reports nausea but no vomiting Denies any chest pain, shortness of breath, dizziness Discussed with GI today Review of Systems Review of Systems: All systems reviewed & are unremarkable except as noted in Subjective Physical Exam Physical Exam: Physical Exam: Vitals signs as noted above General Appearance:Moderately built and nourished, no apparent distress Head: normocephalic, Atraumatic Eyes: normal inspection, EOMI Neck: supple, Trachea midline Respiratory/Chest: Normal breath sounds, CTA Cardiovascular: S1, S2, No murmur Abdomen/GI:Soft, epigastric tender, Bowel sounds present Extremities/Musculoskeletal:normal inspection, no edema Neurologic/Psych:AAOX3, grossly no focal neurological deficits Skin: normal color, warm Results & Data Results & Data ([facility]) Vital Signs (Past 12 Hours) Vital Signs Temp Pulse Resp BP Pulse Ox O2 Del Method 08/12/22 14:33 36.7 C 68 16 153/98 H 96 Room Air 08/12/22 07:46 36.6 C 78 16 167/90 H 96 Room Air Laboratory Results Short CBC 08/12/22 Range/Units 08:02 WBC 5.12 (4.8-10.8) K/ul Hgb 13.5 L (14.0-18.0) g/dl Hct 37.4 L (40.1-51.0) % Plt Count 271 (130-400) K/uL BMP 08/12/22 08:02 Sodium 135 L Potassium 4.0 Chloride 101 Carbon Dioxide 27 BUN 6 Creatinine 0.91 Glucose 88 Calcium 9.1 Liver Function 08/12/22 Range/Units 08:02 Total Bilirubin 0.6 (0.2-1.0) mg/dl Direct Bilirubin 0.2 (0-0.2) mg/dl AST 38 (13-39) U/L ALT 49 (7-52) U/L Alkaline Phosphatase 151 H (34-104) U/L Albumin 4.0 (3.4-5.0) gm/dl (1) Acute pancreatitis Acute pancreatitis complication: unspecified Pancreatitis type: biliary Qualified Code(s): K85.10 - Biliary acute pancreatitis without necrosis or infection
[2022-08-13] MEDS: HYDROmorphone INJ 0.5 MG/0.5 ML SYR IV PRN ×2 (00:45→04:31)
[2022-08-13] MEDS ORDERED: METOPROLOL SUCC 25MG EXT REL TAB PO SCH (04:40)
[2022-08-13] MEDS: LACTATED RINGER'S 1,000 ML IV SCH (06:23)
[2022-08-13] MEDS: SERTRALINE HCL 50 MG TABLET PO SCH (08:32)
[2022-08-13] MEDS: TICAGRELOR 90 MG TAB PO SCH (08:32)
[2022-08-13] MEDS: ROSUVASTATIN CALCIUM 20 MG TAB PO SCH (08:32)
[2022-08-13] MEDS: EZETIMIBE 10 MG TABLET PO SCH (08:33)
[2022-08-13] MEDS: ISOSORBIDE MONO EXTENDED REL 60 MG TABCR PO SCH (08:33)
[2022-08-13] MEDS: PANTOprazole 40 MG TAB PO SCH (08:33)
[2022-08-13] MEDS: MAGNESIUM OXIDE 400 MG TAB PO SCH (08:33)
[2022-08-13] MEDS: ASPIRIN 81 MG ECTAB PO SCH (08:33)
[2022-08-13] MEDS: ENOXAPARIN INJ 40 MG/0.4 ML SYR SQ SCH (08:36)
--- NOTE | 2022-08-13 12:11 | Hospitalist Progress Note ---
Date of Service August 13, 2022 Assessment & Plan (1) Acute pancreatitis: (2) Hx laparoscopic cholecystectomy: (3) Lesion of pancreas: Plan: Patient is a 51 yr male with h/o CAD, [place] x2 PCI with stents, history of acute pancreatitis, status post ERCP with stent placement, history of GERD, hyperlipidemia, anxiety, Casanova's esophagus, who recently was admitted a couple of times for pancreatitis, again comes back with abdominal pain. Acute Pancreatitis Recurrent Pancreatitis Cystic Lesion within Pancreatic head --s/p laparoscopic cholecystectomy in August 2021. Nonalcoholic --CT ABD:Interval development of moderate peripancreatic stranding and fluid since prior CT. This is consistent with acute pancreatitis. No peripancreatic fluid collection. Stable mild biliary ductal dilatation, likely related to previous cholecystectomy. 1 cm cystic focus within the pancreatic head, as described above. The CT appearance is nonspecific and this could reflect a developing intrapancreatic pseudocyst or dilated portion of the dorsal duct given possible intraductal calcification. A cystic neoplasm/lesion or small focus of gland necrosis are considered less likely however imaging follow-up is recommended to ensure stability/resolution. Interval development of mild diffuse colonic wall thickening. This may reflect a mild colitis. No bowel obstruction. Normal appendix. --MRCP:Peripancreatic fluid consistent with acute pancreatitis. No peripancreatic fluid collections identified. Suboptimal evaluation of the pancreatic duct and the common bile duct due to motion artifact. No common bile duct calculi identified. Borderline dilatation of the common bile duct, likely related to cholecystectomy. Mild dilatation of the distal pancreatic duct. 1.1 cm cystic focus within the pancreatic head, as described on CT performed earlier today. This is better assessed on that exam. This can be followed on subsequent studies. --Repeat CT ABD:Acute pancreatitis with significant interval improvement in peripancreatic fluid and stranding since prior CT. No evidence for gland necrosis. No pancreatic ductal dilatation. Decreased conspicuity of the previously described pancreatic head hypodense focus. Continued imaging follow- up to ensure complete resolution is recommended. No bowel obstruction. No bowel wall thickening. --Normal LFTs --Continue IV fluids Pain control Minimize narcotic use as able Appreciate GI input Tolerated liquid diet, advance diet as tolerated Needs outpatient endoscopic ultrasound in 6 weeks Needs follow-up with GI upon discharge CAD S/P Stents Continue aspirin, Brilinta, Imdur, and beta shay and statin. Casanova's esophagitis: on Protonix Hyperlipidemia: On statin. Generalized anxiety disorder and depression: Continue Zoloft. DVT Px: Lovenox SQ Admission and Anticipated Discharge Date Admission Date: August 09, 2022 Subjective Patient is seen and examined at bedside States doing much better today Denies nausea, vomiting, abdominal pain Tolerated liquid diet Discussed with GI today Denies any chest pain, shortness of breath, dizziness Review of Systems Review of Systems: All systems reviewed & are unremarkable except as noted in Subjective Physical Exam Physical Exam: Physical Exam: Vitals signs as noted above General Appearance:Moderately built and nourished, no apparent distress Head: normocephalic, Atraumatic Eyes: normal inspection, EOMI Neck: supple, Trachea midline Respiratory/Chest: Normal breath sounds, CTA Cardiovascular: S1, S2, No murmur Abdomen/GI:Soft, mild tender, Bowel sounds present Extremities/Musculoskeletal:normal inspection, no edema Neurologic/Psych:AAOX3, grossly no focal neurological deficits Skin: normal color, warm Results & Data Results & Data ([facility]) Vital Signs (Past 12 Hours) Vital Signs Temp Pulse Resp BP BP Pulse Ox O2 Del Method 08/13/22 07:44 36.7 C 65 16 155/95 H 95 Room Air 08/13/22 04:53 75 08/13/22 04:30 159/101 H Laboratory Results Liver Function 08/12/22 Range/Units 08:02 Total Bilirubin 0.6 (0.2-1.0) mg/dl Direct Bilirubin 0.2 (0-0.2) mg/dl AST 38 (13-39) U/L ALT 49 (7-52) U/L Alkaline Phosphatase 151 H (34-104) U/L Albumin 4.0 (3.4-5.0) gm/dl (1) Acute pancreatitis Acute pancreatitis complication: unspecified Pancreatitis type: biliary Qualified Code(s): K85.10 - Biliary acute pancreatitis without necrosis or infection
--- NOTE | 2022-08-13 13:27 | Discharge Summary ---
Date of Service August 13, 2022 Admission HPI Per Admitting Provider CHIEF COMPLAINT: Abdominal pain. HISTORY OF PRESENT ILLNESS: This is a 51-year-old male with past medical history significant for CAD, history of [place] x2 PCI with stents, history of acute pancreatitis, status post ERCP with stent placement, history of GERD, hyperlipidemia, anxiety, Casanova's esophagus, who recently was admitted a couple of times for pancreatitis, again comes back with abdominal pain. He was disch arged a few days back. He says the pain never went away, it has got worse, 10/10 in severity in the abdomen. Denies any nausea or vomiting. No diarrhea or constipation. Normal bladder movements. No fevers, no chest pain, no shortness of breath, no cough, no headache, no dizziness, no blurred visions. Currently, complains of pain, asked for pain medication. Otherwise, hemodynamically stable. Admission Exam Per Admitting Provider PHYSICAL EXAMINATION: GENERAL: The patient is of moderate build, not in acute distress. VITAL SIGNS: Temperature 36.6, pulse 62, respiratory rate 18, blood pressure 159/94, oxygen 99% on room air. HEENT: Pupils equal, round and reactive to light. Oral mucosa dry. NECK: No JVD or neck masses. CARDIOVASCULAR: S1 and S2 heard. Regular rate and rhythm. No murmur, no gallop. RESPIRATORY SYSTEM: Normal AP diameter. No accessory muscle use. No wheezing, no crackles. ABDOMEN: Soft, bowel sounds present, diffuse tenderness, no guarding, no rigidity, no distention. CENTRAL NERVOUS SYSTEM: Cranial nerves II through XII are grossly intact, nonfocal. EXTREMITIES: No edema, no erythema. Principal Diagnosis Acute pancreatitis Pancreatic head cystic lesion Discharge Data Allergies Allergy/AdvReac Type Severity Reaction Status Date / Time No Known Allergies Allergy Verified 08/09/22 02:54 Consultations 08/09/22 04:24 ED Decision to Admit Stat 08/09/22 08:00 Consult Gastroenterology Routine Procedures Performed Laboratory Results WBC 5.12 K/ul (4.8-10.8) 08/12/22 08:02 RBC 3.88 M/uL (4.63-6.08) L 08/12/22 08:02 Hgb 13.5 g/dl (14.0-18.0) L 08/12/22 08:02 Hct 37.4 % (40.1-51.0) L 08/12/22 08:02 MCV 96.4 fL (80.0-100.0) 08/12/22 08:02 MCH 34.8 pg (25.0-34.0) H 08/12/22 08:02 MCHC 36.1 g/dL (32.0-36.0) H 08/12/22 08:02 RDW Std Deviation 46.5 fL (36.4-46.3) H 08/12/22 08:02 RDW Coeff of Mckinley 13.2 % (11.5-14.5) 08/12/22 08:02 Plt Count 271 K/uL (130-400) 08/12/22 08:02 MPV 9.1 fL (9.4-12.4) L 08/12/22 08:02 Immature Gran % (Auto) 0.2 % 08/12/22 08:02 Neut % (Auto) 64.9 % 08/12/22 08:02 Lymph % (Auto) 24.8 % 08/12/22 08:02 Mccreary % (Auto) 6.4 % 08/12/22 08:02 Eos % (Auto) 2.9 % 08/12/22 08:02 Baso % (Auto) 0.8 % 08/12/22 08:02 Neut # (Auto) 3.32 K/uL (1.4-6.5) 08/12/22 08:02 Lymph # (Auto) 1.27 K/uL (1.2-3.4) 08/12/22 08:02 Mccreary # (Auto) 0.33 K/uL (0.24-0.82) 08/12/22 08:02 Eos # (Auto) 0.15 K/uL (0-0.50) 08/12/22 08:02 Baso # (Auto) 0.04 K/uL (0-0.2) 08/12/22 08:02 Immature Gran # (Auto) 0.01 K/uL (0.00-0.02) 08/12/22 08:02 PT 10.9 Seconds (9.0-12.0) 08/09/22 03:01 INR 1.0 (0.9-1.1) 08/09/22 03:01 Sodium 135 mmol/L (136-145) L 08/12/22 08:02 Potassium 4.0 mmol/L (3.5-5.1) 08/12/22 08:02 Chloride 101 mmol/L (98-107) 08/12/22 08:02 Carbon Dioxide 27 mmol/L (21-32) 08/12/22 08:02 Anion Gap 7 (3-11) 08/12/22 08:02 BUN 6 mg/dl (6-23) 08/12/22 08:02 Creatinine 0.91 mg/dl (0.6-1.4) 08/12/22 08:02 Est Cr Clr Drug Dosing 75.2 ml/min 08/12/22 08:02 Est GFR ( Amer) 111.9 ml/min 08/12/22 08:02 Est GFR (Non-Af Amer) 96.6 ml/min 08/12/22 08:02 BUN/Creatinine Ratio 6.6 (10-20) L 08/12/22 08:02 Glucose 88 mg/dl (70-99(Fasting)) 08/12/22 08:02 Calcium 9.1 mg/dl (8.5-10.1) 08/12/22 08:02 Magnesium 1.8 mg/dl (1.7-2.4) 08/10/22 05:52 Total Bilirubin 0.6 mg/dl (0.2-1.0) 08/12/22 08:02 Direct Bilirubin 0.2 mg/dl (0-0.2) 08/12/22 08:02 AST 38 U/L (13-39) 08/12/22 08:02 ALT 49 U/L (7-52) 08/12/22 08:02 Alkaline Phosphatase 151 U/L (34-104) H 08/12/22 08:02 Total Protein 6.6 gm/dl (6.0-8.3) 08/12/22 08:02 Albumin 4.0 gm/dl (3.4-5.0) 08/12/22 08:02 Globulin 2.3 gm/dl (2.5-4.0) L 08/11/22 09:37 Albumin/Globulin Ratio 1.6 (0.9-2) 08/11/22 09:37 Lipase 370 U/L (11-82) H 08/09/22 03:01 Urine Color Yellow 08/09/22 09:00 Urine Appearance Clear (Clear) 08/09/22 09:00 Urine pH 5.5 (4.5-7.5) 08/09/22 09:00 Ur Specific Beryl 1.043 (1.000-1.030) H 08/09/22 09:00 Urine Protein Trace (Negative) H 08/09/22 09:00 Urine Glucose (UA) Negative (Negative) 08/09/22 09:00 Urine Ketones Trace (Negative) H 08/09/22 09:00 Urine Blood Trace (Negative) H 08/09/22 09:00 Urine Nitrite Negative (Negative) 08/09/22 09:00 Urine Bilirubin Negative (Negative) 08/09/22 09:00 Urine Urobilinogen Negative (Negative) 08/09/22 09:00 Ur Leukocyte Esterase Negative (Negative) 08/09/22 09:00 Urine WBC (Auto) 0 /hpf (0-5) 08/09/22 09:00 Urine RBC (Auto) 0-4 /hpf (0-4) 08/09/22 09:00 U Hyaline Cast (Auto) 1-5 /lpf (0-5) 08/09/22 09:00 U Epithel Cells (Auto) 10-20 /lpf (0-5) H 08/09/22 09:00 Urine Bacteria (Auto) Negative (Negative) 08/09/22 09:00 SARS-CoV-2, RNA, NAAT NEGATIVE (NEGATIVE) 08/09/22 04:49 Impressions Cholangiopancreatography MRI 08/09/22 15:14 MRCP CLINICAL HISTORY: Acute pancreatitis. Eval of the pancreatic duct. TECHNIQUE: Utilizing a 1.5 Padmini magnet and dedicated coil, multiplanar, multiecho imaging of the upper abdomen was performed utilizing heavily T2 weighted pulsing sequences without IV contrast. COMPARISON STUDY: MRCP August 20, 2021. CT of the abdomen and pelvis per formed earlier today. FINDINGS: This exam is moderately compromised by motion artifact. Peripancreatic fluid represents acute pancreatitis. No well-defined peripancreatic fluid collection is present. 1.1 cm T2 hyperintense focus within the pancreatic head on axial FIESTA image 20 of 20 is noted. This corresponds to the finding on abdominal CT. This is suboptimally assessed on this unenhanced examination. No additional cystic pancreatic lesions are noted. Caliber of the common bile duct is at the upper limits of normal following cholecystectomy. Sensitivity for detection of common bile duct calculi is diminished given motion artifact but none are identified. There is mild dilatation of the distal pancreatic duct, measuring 5 mm in caliber. No hepatic lesions are identified on unenhanced exam. The spleen, adrenal glands and left kidney are unremarkable. There is a probable right renal cyst. There is no hydronephrosis. IMPRESSION: 1. Peripancreatic fluid consistent with acute pancreatitis. No peripancreatic fluid collections identified. 2. Suboptimal evaluation of the pancreatic duct and the common bile duct due to motion artifact. No common bile duct calculi identified. Borderline dilatation of the common bile duct, likely related to cholecystectomy. Mild dilatation of the distal pancreatic duct. 3. 1.1 cm cystic focus within the pancreatic head, as described on CT performed earlier today. This is better assessed on that exam. This can be followed on subsequent studies. ACT 112: Negative or not required by law. Electronically signed by: Urban Eastman M.D. 08/09/2022 5:00 PM Abdomen/Pelvis CT 08/12/22 12:31 CT OF THE ABDOMEN AND PELVIS WITH CONTRAST CLINICAL HISTORY: Pancreatitis. COMPARISON STUDY: CT of the abdomen and pelvis and MRCP August 09, 2022. TECHNIQUE: Following IV administration of 60 mL of Optiray, axial images of the abdomen and pelvis were obtained from the lung bases to the proximal femurs. Images were reviewed in the axial, sagittal, and coronal planes. IV contrast was administered without complication. Automated exposure control was utilized for the study. A dose lowering technique was utilized adhering to the principles of ALARA. CT DOSE: 289.91 mGycm FINDINGS: Lung bases are unremarkable. Pneumobilia is noted. Subcentimeter medial segment hepatic lesion is unchanged since CT of September 21, 2021. This is benign. Gallbladder is surgically absent. Pancreatic glandular atrophy is again noted. Pancreatic calcifications are noted. Calcifications within and adjacent to the pancreatic head and second portion of the duodenum are again noted. The peripancreatic fluid and stranding has significantly improved since CT of August 09, 2022. No peripancreatic fluid collection is noted. A hypodensity within the pancreatic head is less conspicuous on this examination. The pancreatic head and uncinate process are slightly edematous and heterogeneous. A right renal cyst is present. Spleen, adrenal glands and left kidney are normal. There is no evidence for a bowel obstruction. The appendix is unremarkable. Major vasculature is patent. There is moderate plaque of the abdominal aorta. The main, left and right portal veins are patent. IMPRESSION: 1. Acute pancreatitis with significant interval improvement in peripancreatic fluid and stranding since prior CT. No evidence for gland necrosis. No pancreatic ductal dilatation. Decreased conspicuity of the previously described pancreatic head hypodense focus. Continued imaging follow-up to ensure complete resolution is recommended. 2. No bowel obstruction. No bowel wall thickening. ACT 112: Negative or not required by law. Electronically signed by: Urban Eastman M.D. 08/12/2022 1:36 PM Ordered Studies 08/09/22 12:26 CT abdomen pelvis wo/w con Urgent 08/09/22 15:14 MR MRCP Urgent 08/12/22 12:31 CT abd pelvis IV con only Urgent Hospital Course (1) Acute pancreatitis: (2) Hx laparoscopic cholecystectomy: (3) Lesion of pancreas: Patient is a 51 yr male with h/o CAD, [place] x2 PCI with stents, history of acute pancreatitis, status post ERCP with stent placement, history of GERD, hyperlipidemia, anxiety, Casanova's esophagus, who recently was admitted a couple of times for pancreatitis, again comes back with abdominal pain. Acute Pancreatitis Recurrent Pancreatitis Cystic Lesion within Pancreatic head --s/p laparoscopic cholecystectomy in August 2021. Nonalcoholic --CT ABD:Interval development of moderate peripancreatic stranding and fluid since prior CT. This is consistent with acute pancreatitis. No peripancreatic fluid collection. Stable mild biliary ductal dilatation, likely related to previous cholecystectomy. 1 cm cystic focus within the pancreatic head, as described above. The CT appearance is nonspecific and this could reflect a developing intrapancreatic pseudocyst or dilated portion of the dorsal duct given possible intraductal calcification. A cystic neoplasm/lesion or small focus of gland necrosis are considered less likely however imaging follow-up is recommended to ensure stability/resolution. Interval development of mild diffuse colonic wall thickening. This may reflect a mild colitis. No bowel obstruction. Normal appendix. --MRCP:Peripancreatic fluid consistent with acute pancreatitis. No peripancreatic fluid collections identified. Suboptimal evaluation of the pancreatic duct and the common bile duct due to motion artifact. No common bile duct calculi identified. Borderline dilatation of the common bile duct, likely related to cholecystectomy. Mild dilatation of the distal pancreatic duct. 1.1 cm cystic focus within the pancreatic head, as described on CT performed earlier today. This is better assessed on that exam. This can be followed on subsequent studies. --Repeat CT ABD:Acute pancreatitis with significant interval improvement in peripancreatic fluid and stranding since prior CT. No evidence for gland necrosis. No pancreatic ductal dilatation. Decreased conspicuity of the previously described pancreatic head hypodense focus. Continued imaging follow- up to ensure complete resolution is recommended. No bowel obstruction. No bowel wall thickening. --Normal LFTs --Continue IV fluids Pain control Minimize narcotic use as able Appreciate GI input Tolerated liquid diet, advance diet as tolerated Needs outpatient endoscopic ultrasound in 6 weeks Needs follow-up with GI upon discharge CAD S/P Stents Continue aspirin, Brilinta, Imdur, and beta shay and statin. Casanova's esophagitis: on Protonix Hyperlipidemia: On statin. Generalized anxiety disorder and depression: Continue Zoloft. DVT Px: Lovenox SQ Total Time Total Time Spent Total Time Spent (In Minutes): 54 minutes Discharge Plan Discharge Items Patient Disposition: Home - Self-Care Reason For Visit: ABD PAIN Discharge Diagnosis: Acute pancreatitis Pancreatic head cystic lesion Activity: Per Instructions section Exercise/Sports: Gradually increase as tolerated Non-emergency contact: Primary Care Provider and [employer] Installer Call non-emergency contact if: you have any medication questions, your symptoms worsen, your pain is concerning for you and you have a fever Follow-up/Referrals: Wade Bragg MD [Primary Care Provider] - (Date & Time 08/17/2022 11:00 AM Provider Josh Salomon MD [facility] ) Diet: Low Fat Addtl Attending Provider Instructions: Follow-up with your primary care physician on 08/17/2022 11:00 AM Follow-up with your funnel coater for endoscopic ultrasound in 6 weeks as recommended by your funnel coater. Seek immediate medical attention if your symptoms reoccur or worsen Please take all medications as instructed on discharge list below. Please call if you have any questions or problems. You can reach a [facility] hospitalist on duty at [facility] 24 hours a day by calling [phone] Pending Studies at Discharge: No Stand-Alone Forms: [facility], Smoking Cessation Medications and DC Order Prescriptions: Continued aspirin 81 mg tablet,delayed release (DR/EC) 81 mg PO QAM sertraline [Zoloft] 50 mg tablet 50 mg PO QAM nitroglycerin [Nitrostat] 0.4 mg tablet, sublingual 0.4 mg Sublingual UD PRN (Reason: Chest Pain) famotidine 40 mg tablet 40 mg PO HS PRN (Reason: Acid Reflux) dicyclomine 10 mg capsule 10 mg PO BID PRN (Reason: Abdominal Pain) ezetimibe 10 mg tablet 10 mg PO QAM magnesium oxide 400 mg magnesium Tablet 400 mg PO QAM pantoprazole 40 mg tablet,delayed release (DR/EC) 40 mg PO QAM PRN (Reason: Acid Reflux) rosuvastatin 40 mg Tablet 40 mg PO DAILY metoprolol succinate 25 mg Tablet Extended Release 24 Hr 25 mg PO DAILY Brilinta 90 mg Tablet 60 mg PO BID 30 Days Qty: 60 3RF Rx Instructions: Patient was recently revised to take 60mg BID, has script in pharmacy as per patient Discharge Orders: Discharge Order (Routine); Ordered 08/13/22 Ordered By: Reji Lucas Admission Data Admit Date/Time: 08/09/22 04:52 Attending Provider: Reji Lucas Admit Provider: Rosales Singh Primary Care Provider: Wade Bragg Other Providers: Rosales Singh ; Marianela Epstein
== END 2022-08-13 14:17 | disposition home or self-care (01) | DRG 439 ==
LOC: ED 02:29 → 3W 04:52 → SUATTDRO 04:52 → 3W 06:03

== ENCOUNTER 2022-10-02 18:12 | Observation (INO) ==
[2022-10-02] MEDS ORDERED: ACETAMINOPHEN 1,000 MG/100 ML VIAL IV STA (18:23)
[2022-10-02] MEDS ORDERED: ONDANSETRON INJ 2 MG/ML 2 ML VIAL IV STA (18:23)
[2022-10-02] MEDS ORDERED: FAMOTIDINE 20MG IV PUSH 20 MG/5 ML SYR IV STA (18:23)
[2022-10-02] MEDS ORDERED: SODIUM CHLORIDE 0.9% 1000ML 1,000 ML IV ONE ×2 (18:23→20:40)
--- NOTE | 2022-10-02 18:27 | Emergency Department Note ---
History of Present Illness General Chief complaint: Chest Pain Stated complaint: STOMACH PAIN,CHEST PAIN,VOMITTING Time Seen by Provider: 10/02/22 18:18 Source: patient Mode of arrival: ambulatory Limitations: no limitations History of Present Illness Provider complaint: Abdominal pain, vomiting, diarrhea Maximum Pain Intensity: 9 This is a 52-year-old male presents emergency department with concern for abdominal pain, vomiting and diarrhea which began 2 hours ago. Patient states vomiting began first. He states he did have hot chocolate prior to this. He states after the pain began he had several episodes of nonbloody diarrhea. He then began to feel nauseated and had several episodes of nonbloody emesis. He denies fevers or chills. He states pain is similar in location and quality to prior episodes of pancreatitis. Patient denies any recent use of alcohol. Patient with a similar presentation to the emergency department the beginning of the month. He states he has been fine in the interim and had no recurrent episodes of pain. He denies any recent change in medications or diet. Patient does work for the [employer] and states he is around sick people all the ti me. No recent travel. Home Medications Medication Instructions Recorded Confirmed Type aspirin 81 mg tablet,delayed 81 mg PO QAM 10/06/18 10/02/22 History release sertraline 50 mg tablet (Zoloft) 50 mg PO QAM 10/06/18 10/02/22 History nitroglycerin 0.4 mg sublingual 0.4 mg sublingual UD PRN Chest Pain 10/07/18 10/02/22 History tablet (Nitrostat) dicyclomine 10 mg capsule 10 mg PO BID PRN Abdominal Pain 12/06/20 10/02/22 History ezetimibe 10 mg tablet 10 mg PO QAM 12/06/20 10/02/22 History famotidine 40 mg tablet 40 mg PO HS 12/06/20 10/02/22 History magnesium oxide 400 mg PO QAM 12/06/20 10/02/22 History pantoprazole 40 mg tablet,delayed 40 mg PO QAM 08/20/21 10/02/22 History release metoprolol succinate 25 mg 25 mg PO DAILY 07/27/22 10/02/22 History tablet,extended release 24 hr rosuvastatin 40 mg tablet 40 mg PO DAILY 07/27/22 10/02/22 History ticagrelor 90 mg tablet (Brilinta) 60 mg PO AMHS 09/16/22 10/02/22 History Allergies Allergy/AdvReac Type Severity Reaction Status Date / Time No Known Allergies Allergy Verified 10/02/22 20:04 Past Med/Surg History Medical History Acute pancreatitis Barretts esophagus CAD (coronary artery disease) 2017-RCA stent x 2 07/2020-STEMI, s/p PCI to left circumflex with 2 EMLLY. Post procedure complicated by V. fib arrest requiring defibrillation. 12/2020-NSTEMI s/p 3 Xience MELLY to the distal aspect of prior stent of the left posterior lateral branch vessel COVID-29 Oct 2021 Depression RADHA (generalized anxiety disorder) GERD (gastroesophageal reflux disease) Grade II diastolic dysfunction HLD (hyperlipidemia) Mobitz type 2 second degree atrioventricular block Splenic infarct Tobacco abuse Surgical History History of endoscopic retrograde cholangiopancreatography x2 (08/31, 09/30) History of vasectomy Hx laparoscopic cholecystectomy (08/22/21) Laparoscopic Cholecystectomy Dr. Davidson 08/22/2021 Family History Mother Gallbladder disease Sister Gallbladder disease Other Diabetes Stroke Denies family history of Pancreatic disease Social History Smoking Status: Current every day smoker Tobacco Type: Cigarettes Cigarettes Per Day: 2; Second Hand Exposure: No; Hx Alcohol Use: No Hx Substance Use: No Preferred Language: Algerian Communication Ability: Effective Production Expert Required: No Beliefs That Will Affect Care: None marital status: Single Current Living Situation: Alone current occupational status: employed Feels Safe at Home: Yes Assistive Devices: None Review of Systems A total of 10 systems reviewed and were otherwise negative All systems reviewed & are unremarkable except as noted in HPI & below Physical Exam Vital Signs Vital Signs - 24 hr 10/02/22 18:16 10/02/22 18:13 10/02/22 20:13 Temperature 36.2 C L Temperature Source Temporal Artery Scan Pulse Rate 57 L Pulse Rate [Apical] 61 Pulse Rhythm Regular Pulse Strength Normal Respiratory Rate 20 15 Respiratory Effort / Characteristics Non-Labored Spontaneous Respiratory Depth Normal Respiratory Pattern Regular Blood Pressure 157/86 H Blood Pressure [Right Arm] 152/95 H Blood Pressure Mean 109 Blood Pressure Mean [Right Arm] 114 Blood Pressure Position Sitting Blood Pressure Position [Right Arm] Pulse Oximetry 96 98 97 Oxygen Delivery Method Room Air Room Air Room Air Sepsis Recent Fever Within 48 Hours No Sepsis New/Unexplained Change in Mental Status N/A Sepsis Action Taken by Nursing No Action Required 10/02/22 22:00 10/02/22 23:35 10/03/22 00:15 Temperature Temperature Source Pulse Rate Pulse Rate [Apical] 57 L 78 62 Pulse Rhythm Pulse Strength Respiratory Rate 18 16 16 Respiratory Effort / Characteristics Non-Labored Respiratory Depth Normal Respiratory Pattern Blood Pressure Blood Pressure [Right Arm] 179/110 H 158/103 H 168/98 H Blood Pressure Mean Blood Pressure Mean [Right Arm] 133 121 121 Blood Pressure Position Blood Pressure Position [Right Arm] Semi-fowlers Semi-fowlers Pulse Oximetry 100 94 95 Oxygen Delivery Method Room Air Room Air Sepsis Recent Fever Within 48 Hours Sepsis New/Unexplained Change in Mental Status Sepsis Action Taken by Nursing GENERAL: alert, well appearing, well nourished, no distress, non-toxic EYE EXAM: normal conjunctiva, PERRL and EOM's grossly intact OROPHARYNX: no exudate, no erythema, lips, buccal mucosa, and tongue normal and mucous membranes are moist NECK: supple, no nuchal rigidity, no adenopathy, non-tender LUNGS: Clear to auscultation. Normal chest wall mechanics, no w/r/r HEART: no murmurs, S1 normal and S2 normal ABDOMEN: abdomen soft, central abdominal tenderness with palpation, normo-active bowel sounds, no masses, no rebound or guarding. Dull to percussion. BACK: Back is symmetrical on inspection and there is no deformity, no midline tenderness, no CVA tenderness. SKIN: no rashes and no bruising UPPER EXTREMITIES: upper extremities are grossly normal. FROM, nml pulses b/l. LOWER EXTREMITIES: No pitting edema. FROM, nml pulses b/l. NEURO EXAM: Normal sensorium, cranial nerves II-XII grossly intact, normal speech, no gross weakness of arms, no gross weakness of legs. Gross sensation intact. Course Course 2039: Patient updated on results. States pain improved but not resolved. He does still appear mildly uncomfortable. 2302: Patient states he still having significant pain. Patient laying right lateral recumbent with knees and hips flexed. 0006: Patient states pain is improved after second dose of pain medication although still not well enough that he feels comfortable going home. Updated on CT results. Administered Medications Discontinued Medications Dicyclomine HCl (Dicyclomine Hcl 10 Mg Cap) 10 mg PO NOW ONE Stop: 10/02/22 19:45 Last Admin: 10/02/22 19:54 Dose: 10 mg Documented By: TIM Diphenhydramine HCl (Diphenhydramine 50 Mg/Ml Vial) 12.5 mg IV NOW STA Stop: 10/03/22 00:16 Last Admin: 10/03/22 00:24 Dose: 12.5 mg Documented By: CHRIS Fentanyl Citrate (Fentanyl Citrate 100 Mcg/2 Ml Vial) 50 mcg IV NOW STA Stop: 10/02/22 19:45 Last Admin: 10/02/22 19:53 Dose: 50 mcg Documented By: TIM Sodium Chloride (Nss 1000ml) 1,000 mls @ 999 mls/hr IV .Q1H1M ONE Stop: 10/02/22 19:23 Last Infusion: 10/02/22 19:28 Dose: 0 mls/hr Documented By: Admin: 10/02/22 18:47 Dose: 999 mls/hr Documented By: TNTeena Acetaminophen (Ofirmev) 1,000 mg in 100 mls @ 400 mls/hr IV NOW STA Stop: 10/02/22 18:37 Last Infusion: 10/02/22 19:28 Dose: 0 mls/hr Documented By: Admin: 10/02/22 18:47 Dose: 400 mls/hr Documented By: TNTeena Famotidine (Pepcid 20mg Iv Push) 20 mg in 5 mls @ 2.5 mls/min IV NOW STA Stop: 10/02/22 18:24 Last Admin: 10/02/22 18:47 Dose: 2.5 mls/min Documented By: TNTeena Sodium Chloride (Nss 1000ml) 1,000 mls @ 999 mls/hr IV .Q1H1M ONE Stop: 10/02/22 21:40 Last Infusion: 10/02/22 21:42 Dose: 0 mls/hr Documented By: Admin: 10/02/22 20:53 Dose: 999 mls/hr Documented By: DEBBIE Ioversol (Optiray 350 100ml) 85 ml IV ONCE ONE Stop: 10/02/22 23:29 Last Admin: 10/02/22 23:28 Dose: 85 ml Documented By: MO Ketorolac Tromethamine (Ketorolac Tromethamine 15 Mg/Ml Vial) 10 mg IV NOW ONE Stop: 10/02/22 20:41 Last Admin: 10/02/22 20:54 Dose: 10 mg Documented By: DEBBIE Metoclopramide HCl (Metoclopramide Hcl Inj 5 Mg/Ml 2 Ml Vial) 5 mg IV ONE ONE Stop: 10/03/22 00:16 Last Admin: 10/03/22 00:23 Dose: 5 mg Documented By: CHRIS Morphine Sulfate (Morphine Sulfate 4 Mg/Ml 1 Ml Carp\Vial) 4 mg IV NOW STA Stop: 10/02/22 22:38 Last Admin: 10/02/22 22:40 Dose: 4 mg Documented By: TIM Morphine Sulfate (Morphine Sulfate 4 Mg/Ml 1 Ml Carp\Vial) 4 mg IV NOW STA Stop: 10/02/22 23:05 Last Admin: 10/02/22 23:20 Dose: 4 mg Documented By: CHRIS Ondansetron HCl (Ondansetron Inj 2 Mg/Ml 2 Ml Vial) 4 mg IV NOW STA Stop: 10/02/22 18:24 Last Admin: 10/02/22 18:47 Dose: 4 mg Documented By: TIM Medical Decision Making Differential Diagnosis Differential diagnoses includes but is not limited to gastritis, peptic ulcer disease, GERD, gallbladder disease, pancreatitis, small bowel obstruction, acute coronary syndrome, pericarditis, ischemic bowel, irritable bowel disease, irritable bowel syndrome, appendicitis, diverticulitis, malignancy, hernia, urinary tract infection, perforation, trauma, infectious. Medical Records Attestation: I reviewed the patient's medical records. Home Medications Current Medication List: was personally reviewed by me Laboratory Data Attestation: I reviewed the patient's lab results. Result diagrams: 10/02/22 18:45 10/02/22 18:45 Lab Results 10/02/22 10/02/22 10/02/22 Range/Units 18:45 18:45 18:45 WBC 10.26 (4.8-10.8) K/ul RBC 4.54 L (4.63-6.08) M/uL Hgb 15.3 (14.0-18.0) g/dl Hct 42.9 (40.1-51.0) % MCV 94.5 (80.0-100.0) fL MCH 33.7 (25.0-34.0) pg MCHC 35.7 (32.0-36.0) g/dL RDW Std Deviation 44.9 (36.4-46.3) fL RDW Coeff of Mckinley 12.8 (11.5-14.5) % Plt Count 309 (130-400) K/uL MPV 8.9 L (9.4-12.4) fL Immature Gran % (Auto) 0.2 % Neut % (Auto) 68.5 % Lymph % (Auto) 24.2 % [place] % (Auto) 4.7 % Eos % (Auto) 1.7 % Baso % (Auto) 0.7 % Neut # (Auto) 7.04 H (1.4-6.5) K/uL Lymph # (Auto) 2.48 (1.2-3.4) K/uL [place] # (Auto) 0.48 (0.24-0.82) K/uL Eos # (Auto) 0.17 (0-0.50) K/uL Baso # (Auto) 0.07 (0-0.2) K/uL Immature Gran # (Auto) 0.02 (0.00-0.02) K/uL Sodium 137 (136-145) mmol/L Potassium 4.3 (3.5-5.1) mmol/L Chloride 104 (98-107) mmol/L Carbon Dioxide 23 (21-32) mmol/L Anion Gap 10 (3-11) BUN 13 (6-23) mg/dl Creatinine 1.08 (0.6-1.4) mg/dl Est Cr Clr Drug Dosing 64.6 ml/min Est GFR ( Amer) 90.3 ml/min Est GFR (Non-Af Amer) 77.9 ml/min BUN/Creatinine Ratio 12.0 (10-20) Glucose 115 H (70-99(Fasting)) mg/dl Lactate 1.5 (0.4-2.0) mmol/L Calcium 9.6 (8.5-10.1) mg/dl Magnesium 1.9 (1.7-2.4) mg/dl Total Bilirubin 0.5 (0.2-1.0) mg/dl AST 16 (13-39) U/L ALT 11 (7-52) U/L Alkaline Phosphatase 64 (34-104) U/L Troponin I High Sens 10.3 (0-20) pg/ml Total Protein 7.3 (6.0-8.3) gm/dl Albumin 4.3 (3.4-5.0) gm/dl Globulin 3.0 (2.5-4.0) gm/dl Albumin/Globulin Ratio 1.4 (0.9-2) Lipase 23 (11-82) U/L 10/02/22 Range/Units 22:11 WBC (4.8-10.8) K/ul RBC (4.63-6.08) M/uL Hgb (14.0-18.0) g/dl Hct (40.1-51.0) % MCV (80.0-100.0) fL MCH (25.0-34.0) pg MCHC (32.0-36.0) g/dL RDW Std Deviation (36.4-46.3) fL RDW Coeff of Mckinley (11.5-14.5) % Plt Count (130-400) K/uL MPV (9.4-12.4) fL Immature Gran % (Auto) % Neut % (Auto) % Lymph % (Auto) % [place] % (Auto) % Eos % (Auto) % Baso % (Auto) % Neut # (Auto) (1.4-6.5) K/uL Lymph # (Auto) (1.2-3.4) K/uL [place] # (Auto) (0.24-0.82) K/uL Eos # (Auto) (0-0.50) K/uL Baso # (Auto) (0-0.2) K/uL Immature Gran # (Auto) (0.00-0.02) K/uL Sodium (136-145) mmol/L Potassium (3.5-5.1) mmol/L Chloride (98-107) mmol/L Carbon Dioxide (21-32) mmol/L Anion Gap (3-11) BUN (6-23) mg/dl Creatinine (0.6-1.4) mg/dl Est Cr Clr Drug Dosing ml/min Est GFR ( Amer) ml/min Est GFR (Non-Af Amer) ml/min BUN/Creatinine Ratio (10-20) Glucose (70-99(Fasting)) mg/dl Lactate (0.4-2.0) mmol/L Calcium (8.5-10.1) mg/dl Magnesium (1.7-2.4) mg/dl Total Bilirubin (0.2-1.0) mg/dl AST (13-39) U/L ALT (7-52) U/L Alkaline Phosphatase (34-104) U/L Troponin I High Sens 11.5 (0-20) pg/ml Total Protein (6.0-8.3) gm/dl Albumin (3.4-5.0) gm/dl Globulin (2.5-4.0) gm/dl Albumin/Globulin Ratio (0.9-2) Lipase (11-82) U/L Imaging Data Radiologist's Impression: Chest/Abdomen X-ray 10/02/22 18:23 XR abdomen 2V w PA chest CLINICAL HISTORY: abd pain, chest pain TECHNIQUE: 2 views of the abdomen were obtained. A single view of the chest was obtained. Comparison: Comparison is made to abdomen radiograph of 722 FINDINGS: No lines and tubes are seen. The cardiomediastinal silhouette is normal. The lungs are clear. No evidence of pleural effusion or pneumothorax. Cholecystomy clips are seen. The bowel gas pattern is nonobstructive. Small st ool burden is seen. IMPRESSION: Nonobstructive bowel gas pattern. ACT 112: Negative or not required by law. Electronically signed by: Vadim Cunha M.D. 10/02/2022 7:[address] abdomen pelvis with contrast: Comparison to August 12, 2022. The appendix is normal. Bowel loops are nondilated. No acute inflammatory changes are seen involving the bowel. Mild biliary duct prominence postcholecystectomy. There is small amount of pneumobilia. No choledocholithiasis is seen. There are several punctate calcifications in the pancreas consistent with chronic pancreatitis. No acute inflammation is seen. There is 9 mm cyst in the pancreatic head, likely a small pseudocyst. No pancreatic duct dilatation is identified. The liver is mildly enlarged measuring 19 cm craniocaudad. The spleen, adrenal glands, and kidneys appear wi thin normal limits. There is a 1.3 simple cyst on the right kidney. No follow- up is necessary. The abdominal aorta is mildly calcified and irregular but nondilated. The urinary bladder is fully distended but nondilated. Mild degenerative changes in the spine. No fracture or subluxation. Radiologist: Catarino Steve MD MDM Narrative An order was placed for continuous cardiac monitoring. The monitor shows a rate of _68_ with _normal sinus__ rhythm. This is a 52-year-old male presents emergency department due to abdominal pain, nausea, vomiting, and diarrhea which began abruptly 2 hours ago. Patient afebrile and hemodynamically stable. He was uncomfortable appearing and points to pain in the central abdomen which she feels is similar to prior episodes of pancreatitis. Patient does have a prior history in the EMR of pancreatitis. I have personally seen the patient previously this month with a similar episode and patient was able to be safely discharged home. Labs drawn and sent, IV established, patient placed on telemetry. EKG and x-ray imaging obtained. Patient's labs, EKG, and x-ray is reassuring. Patient given several medications here without any improvement. Eventually patient was given IV narcotic pain medication. Patient with persistent pain so after additional discussion at bedside, he was sent for CT imaging. CT read by overnight outside radiology group as negative, chronic appearing changes of prior pancreatitis were noted. Due to ongoing pain, need for recurrent doses of IV narcotic pain medication, and unclear etiology, case discussed with hospitalist for additional evaluation and management. Patient felt uncomfortable going home due to persistent pain. He did verbalize understanding of all results at bedside. Patient hemodynamically stable throughout. I do not suspect occult cardiac etiology of his pain, troponin negative x2. Impression & Plan Abdominal pain Discharge Plan Visit Data Chief Complaint: Chest Pain Stated Complaint: STOMACH PAIN,CHEST PAIN,VOMITTING ED Provider: [place] Discharge Problem: Abdominal pain Forms Stand Alone Forms: My [facility] [employer] Prescriptions Prescriptions: No Action aspirin 81 mg tablet,delayed release (DR/EC) 81 mg PO QAM sertraline [Zoloft] 50 mg tablet 50 mg PO QAM nitroglycerin [Nitrostat] 0.4 mg tablet, sublingual 0.4 mg Sublingual UD PRN (Reason: Chest Pain) famotidine 40 mg tablet 40 mg PO HS dicyclomine 10 mg capsule 10 mg PO BID PRN (Reason: Abdominal Pain) ezetimibe 10 mg tablet 10 mg PO QAM magnesium oxide 400 mg magnesium Tablet 400 mg PO QAM pantoprazole 40 mg tablet,delayed release (DR/EC) 40 mg PO QAM rosuvastatin 40 mg Tablet 40 mg PO DAILY metoprolol succinate 25 mg Tablet Extended Release 24 Hr 25 mg PO DAILY Brilinta 90 mg tablet 60 mg PO AMHS Referrals Referrals: Wade Bragg MD [Primary Care Provider] -
[2022-10-02 19:14] LABS: Basophils # (auto) 0.07 K/uL (0-0.2); Basophils % (auto) 0.7 %; Eosinophils # (auto) 0.17 K/uL (0-0.50); Eosinophils % (auto) 1.7 %; Hematocrit (blood only) 42.9 % (40.1-51.0); Hemoglobin 15.3 g/dl (14.0-18.0); Immature Granulocytes # (auto) 0.02 K/uL (0.00-0.02); Immature Granulocytes % (auto) 0.2 %; Lymphocytes # (auto) 2.48 K/uL (1.2-3.4); Lymphocytes % (auto) 24.2 %; Mean Corpuscular Hemoglobin 33.7 pg (25.0-34.0); Mean Corpuscular Hgb Conc 35.7 g/dL (32.0-36.0); Mean Corpuscular Volume 94.5 fL (80.0-100.0); Mean Platelet Volume 8.9 fL (9.4-12.4); Monocytes # (auto) 0.48 K/uL (0.24-0.82); Monocytes % (auto) 4.7 %; Neutrophils # (auto) 7.04 K/uL (1.4-6.5); Neutrophils % (auto) 68.5 %; Platelet Count 309 K/uL (130-400); RDW Coefficient of Variation 12.8 % (11.5-14.5); RDW Standard Deviation 44.9 fL (36.4-46.3); Red Blood Count 4.54 M/uL (4.63-6.08); White Blood Count 10.26 K/ul (4.8-10.8)
--- NOTE | 2022-10-02 19:19 | XRay Report ---
XR abdomen 2V w PA chest CLINICAL HISTORY: abd pain, chest pain TECHNIQUE: 2 views of the abdomen were obtained. A single view of the chest was obtained. Comparison: Comparison is made to abdomen radiograph of 722 FINDINGS: No lines and tubes are seen. The cardiomediastinal silhouette is normal. The lungs are clear. No evid ence of pleural effusion or pneumothorax. Cholecystomy clips are seen. The bowel gas pattern is nonobstructive. Small stool burden is seen. IMPRESSION: Nonobstructive bowel gas pattern. ACT 112: Negative or not required by law. Electronically signed by: Vadim Cunha M.D. 10/02/2022 7:18 PM
[2022-10-02] MEDS ORDERED: DICYCLOMINE HCL 10 MG CAP PO ONE (19:44)
[2022-10-02] MEDS ORDERED: fentaNYL citrate 100 MCG/2 ML VIAL IV STA (19:44)
[2022-10-02 19:49] LABS: Albumin Globulin Ratio 1.4 (0.9-2); Albumin Level 4.3 gm/dl (3.4-5.0); Bilirubin,Total 0.5 mg/dl (0.2-1.0); Calcium 9.6 mg/dl (8.5-10.1); Creatinine Clr Calc Pharmacy 64.6 ml/min; Est GFR (African American) 90.3 ml/min; Est GFR (Non-African American) 77.9 ml/min; Magnesium 1.9 mg/dl (1.7-2.4); Potassium 4.3 mmol/L (3.5-5.1); Total Protein 7.3 gm/dl (6.0-8.3)
[2022-10-02 19:50] LABS: Troponin I High Sensitivity 10.3 pg/ml (0-20)
[2022-10-02] MEDS ORDERED: KETOROLAC TROMETHAMINE 15 MG/ML VIAL IV ONE (20:40)
[2022-10-02] MEDS ORDERED: MoRPHine SULFATE 4 MG/ML 1 ML CARP\\VIAL IV STA ×2 (22:37→23:04)
[2022-10-02] MEDS ORDERED: OPTIRAY 350 100ml IV ONE (23:28)
[2022-10-03] MEDS ORDERED: METOCLOPRAMIDE HCL INJ 5 MG/ML 2 ML VIAL IV ONE (00:15)
[2022-10-03] MEDS ORDERED: diphenhydrAMINE 50 MG/ML VIAL IV STA (00:15)
[2022-10-03] MEDS ORDERED: ACETAMINOPHEN 325 MG TAB PO PRN (02:14)
[2022-10-03] MEDS ORDERED: ONDANSETRON INJ 2 MG/ML 2 ML VIAL IV PRN (02:14)
[2022-10-03] MEDS ORDERED: NITROGLYCERIN SL 0.4 MG/TAB TAB SL PRN (02:14)
[2022-10-03] MEDS: HYDROmorphone INJ 0.5 MG/0.5 ML SYR IV PRN ×3 (02:41→17:38)
[2022-10-03] MEDS: D5W AND NSS 1,000 ML IV SCH ×3 (02:42→17:37)
--- NOTE | 2022-10-03 02:49 | History and Physical Report ---
DATE OF ADMISSION: 10/03/2022. CHIEF COMPLAINT: Abdominal pain. HISTORY OF PRESENT ILLNESS: This is a 52-year-old male with past medical history significant for hyperlipidemia, history of recurrent pancreatitis, history of CAD, Casanova's esophagus, GERD, ongoing tobacco use, generalized anxiety disorder, presents with severe abdominal pain that started tonight in the epigastric region. When he came in, it was 9/10 in severity and also has nausea and he said he vomited at home and also in the ER. Denies any blood in the vomiting. After receiving several doses of antiemetics and pain medication, he is still having 7/10 abdominal pain, so we were called for admission. Resting comfortably, hemodynamically stable. He said he had some chest pain earlier, but that got resolved. Denies any shortness of breath, no cough, no fevers, no earache, no blurred visions, no headache. Has some diarrhea. Denies any blood in the stools. Normal bladder movements. No swelling in the legs, no rash. ALLERGIES: No known drug allergies. PAST MEDICAL HISTORY: As mentioned above. PAST SURGICAL HISTORY: Colonoscopy, EGD, EGD with endoscopic ultrasound, ERCP, vasectomy. MEDICATIONS: The patient is on aspirin 81 mg p.o. daily, Brilinta 60 mg p.o. b.i.d., dicyclomine 10 mg p.o. b.i.d. p.r.n., ezetimibe 10 mg p.o. a.m., famotidine 40 mg p.o. at bedtime, magnesium oxide 400 mg p.o. a.m., metoprolol succinate 25 mg p.o. daily, Nitrostat 0.4 mg sublingual p.r.n., Protonix 40 mg p.o. a.m., lovastatin 40 mg p.o. daily, Zoloft 50 mg p.o. q.a.m. FAMILY HISTORY: Significant for mother has diabetes; father has hypertension; mother has stroke; maternal grandmother has mental disorder. SOCIAL HISTORY: Smokes cigarettes. Currently, seems to smoke 2 -3 cigarettes a day as per epic.. Says he does not drink alcohol currently. Denies any drug use. REVIEW OF SYSTEMS: As per HPI. Rest of the review of systems is negative. PHYSICAL EXAMINATION: GENERAL: The patient is of moderate build, not in acute distress. VITAL SIGNS: Temperature 36.2, pulse 62, respiratory rate 16, blood pressure 172/106, oxygen 97% on room air. HEENT: Pupils equal, round and reactive to light. Oral mucosa moist. NECK: No JVD, no neck masses. CARDIOVASCULAR: S1 and S2 heard. Regular rate and rhythm. No murmur, no gallop. RESPIRATORY SYSTEM: Normal AP diameter. No accessory muscle use. No wheezing, no crackles. ABDOMEN: Soft, bowel sounds present. Diffuse abdominal discomfort. Mild guarding. No rigidity, no distention. CENTRAL NERVOUS SYSTEM: Cranial nerves II through XII grossly intact, nonfocal. EXTREMITIES: No edema, no erythema. LABORATORY DATA: WBC 10.2, hemoglobin 15.3, hematocrit 42.9, platelets 309. Sodium 137, potassium 4.3, chloride 104, bicarbonate 23, BUN 13, creatinine 1.08, serum glucose 115. Lactate 1.5, calcium 9.6, magnesium 1.9, total bilirubin 0.5, AST 16, ALT 11, alkaline phosphatase 64. Troponin I initial was 10.3, repeat is 11.5. Lipase 23. SARS-CoV-2 rapid test negative. IMAGING DATA: CT of abdomen and pelvis, preliminary report, chronic pancreatitis, no acute findings. Chest and abdominal x-ray, nonobstructive bowel gas pattern. EKG: Sinus bradycardia at a rate of 55, no acute ST changes seen. ASSESSMENT AND PLAN: This is a 52-year-old male who presents with abdominal pain and transient chest pain. 1. Abdominal pain: History of recurrent pancreatitis, but today's lipase is negative and also CT scan, the preliminary report shows chronic pancreatitis, but nothing acute. The patient also has history of GERD and Casanova's esophagitis. Received IV Pepcid in the ER. At home, on p.o. Pepcid and Protonix. Will place him on IV Pepcid and IV Protonix. IV fluids. We will keep him n.p.o. for now. IV antiemetics and IV pain medications. Follow the final report of the CAT scan. If not improving, consult GI. Closely monitor in the hospital. 2. Chest pain: Currently resolved. Two sets of troponin negative. Initial EKG is fine. Will follow the repeat EKG and monitor in the [facility]. Follow the serial cardiac enzymes. 3. History of coronary artery disease: Status post stents. On aspirin, Brilinta, beta shay, and statin. 4. Casanova's esophagus: On Protonix and Pepcid. 5. Hyperlipidemia: On statin. 6. History of generalized anxiety disorder and depression: On Zoloft. 7. Deep venous thrombosis prophylaxis: Sequential compression devices for now. DISPOSITION: Observation in [facility]. PT/OT prior to discharge. Social service to help with discharge planning. Job ID: [id number] [facility]
[2022-10-03 06:33] LABS: Basophils # (auto) 0.05 K/uL (0-0.2); Basophils % (auto) 0.6 %; Eosinophils # (auto) 0.09 K/uL (0-0.50); Eosinophils % (auto) 1.1 %; Hematocrit (blood only) 39.4 % (40.1-51.0); Immature Granulocytes # (auto) 0.03 K/uL (0.00-0.02); Immature Granulocytes % (auto) 0.4 %; Lymphocytes # (auto) 2.09 K/uL (1.2-3.4); Lymphocytes % (auto) 25.4 %; Mean Corpuscular Hemoglobin 34.3 pg (25.0-34.0); Mean Corpuscular Hgb Conc 35.5 g/dL (32.0-36.0); Mean Corpuscular Volume 96.6 fL (80.0-100.0); Mean Platelet Volume 8.7 fL (9.4-12.4); Monocytes % (auto) 6.1 %; Neutrophils # (auto) 5.46 K/uL (1.4-6.5); Neutrophils % (auto) 66.4 %; Platelet Count 246 K/uL (130-400); RDW Coefficient of Variation 13.2 % (11.5-14.5); RDW Standard Deviation 47.3 fL (36.4-46.3); Red Blood Count 4.08 M/uL (4.63-6.08); White Blood Count 8.22 K/ul (4.8-10.8)
[2022-10-03 06:55] LABS: BUN Creatinine Ratio 9.7 (10-20); Calcium 7.8 mg/dl (8.5-10.1); Creatinine Clr Calc Pharmacy 72.2 ml/min; Est GFR (African American) 108.2 ml/min; Est GFR (Non-African American) 93.4 ml/min; Magnesium 1.8 mg/dl (1.7-2.4); Potassium 3.5 mmol/L (3.5-5.1)
[2022-10-03] MEDS: EZETIMIBE 10 MG TABLET PO SCH (08:14)
[2022-10-03] MEDS: DICYCLOMINE HCL 10 MG CAP PO PRN (08:14)
[2022-10-03] MEDS: MAGNESIUM OXIDE 400 MG TAB PO SCH (08:14)
[2022-10-03] MEDS: ROSUVASTATIN CALCIUM 20 MG TAB PO SCH (08:14)
[2022-10-03] MEDS: ASPIRIN 81 MG ECTAB PO SCH (08:14)
[2022-10-03] MEDS: SERTRALINE HCL 50 MG TABLET PO SCH (08:14)
[2022-10-03] MEDS: METOPROLOL SUCC 25MG EXT REL TAB PO SCH (08:14)
[2022-10-03] MEDS: FAMOTIDINE 20 MG in SYRINGE 3 ML IV SCH ×2 (08:15→20:13)
[2022-10-03] MEDS: PANTOprazole 40 MG in SYRINGE 0 ML IV SCH ×2 (08:15→20:13)
--- NOTE | 2022-10-03 08:41 | CT Scan Report ---
ABDOMEN AND PELVIS CT WITH IV CONTRAST CT DOSE: 283.24 mGy.cm HISTORY: central abd pain, hx pancreatitis TECHNIQUE: Multiaxial CT images of the abdomen and pelvis were performed following the use of intrave nous contrast. A dose lowering technique was utilized adhering to the principles of ALARA. COMPARISON STUDY: Abdomen and pelvis CT 08/12/2022. FINDINGS: Mild dependent changes seen within the lung bases posteriorly. No pneumoperitoneum. No pneu matosis. No suspicious lytic or blastic osseous lesions. There is a small hiatus hernia. Mild gastric wall thickening most pronounced distally. Prior cholecystectomy. Pneumobilia with mild bile duct dil atation, unchanged. Heterogeneous appearance to the pancreatic head with an associated calcification. This is similar to the prior study and favors chronic pancreatitis changes. There is also minimal in flammatory change at the pancreatic head suggestive of an early acute pancreatitis. This is similar t o the prior study. Stable 7 mm hypodense focus of the pancreatic head on image 160. No hepatic or spl enic masses. The adrenal glands are unremarkable. Normal left kidney. Stable right renal cyst. No hyd ronephrosis. Calcified plaque in the normal caliber abdominal aorta. The main portal vein is patent. No pelvic free fluid. The bladder is mildly distended. No evidence for bowel obstruction. Normal appe ndix. IMPRESSION: 1. Minimal inflammatory change at the heterogeneous pancreatic head suggestive of a mild acute on chr onic pancreatitis. Stable subcentimeter hypodense focus at the pancreatic head. This could represent a small pseudocyst 2. Mild gastric wall thickening suggestive of a nonspecific gastritis. 3. No evidence for bowel obstruction. 4. Normal appendix. ACT 112: Negative or not required by law. Electronically signed by: David Noel M.D. 10/03/2022 8:39 AM
[2022-10-03] MEDS ORDERED: TICAGRELOR 90 MG TAB PO SCH (09:00)
--- NOTE | 2022-10-03 10:49 | Electrocardiogram Report ---
Test Reason : Blood Pressure : / mmHG Vent. Rate : 055 BPM Atrial Rate : 055 BPM P-R Int : 118 ms QRS Dur : 094 ms QT Int : 396 ms P-R-T Axes : 065 029 008 degrees QTc Int : 378 ms Sinus bradycardia Inferior-posterior infarct (cited on or before 09-AUG-2022) Abnormal ECG When compared with ECG of 16-SEP-2022 00:05, Premature ventricular complexes are no longer Present Left posterior fascicular block is no longer Present Confirmed by Edmund Griffin ([id number]) on 10/03/2022 10:49:03 AM Referred By: REFERRED SELF Confirmed By:Edmund Griffin
[2022-10-03] MEDS: TICAGRELOR 90 MG TAB PO SCH ×2 (12:32→22:37)
--- NOTE | 2022-10-03 13:20 | Communication Note ---
Date of Service: October 03, 2022 Patient seen and examined at bedside. Patient is admitted for acute on chronic pancreatitis. He has a history of recurrent idiopathic acute pancreatitis. He reports that the pain is started after he had chocolate shake yesterday. Reports nausea; no episode of vomiting. CT abdomen pelvis minimal inflammatory changes at heterogeneous pancreatic head suggestive of acute on chronic pancreatitis. Stable subcentimeter hypodense focus at the pancreatic head. On examination He is alert oriented x3; not in distress Chestbilateral vesicular breath sound CVSS1-S2 no murmur Abdomenslightly tender in epigastric region. Assessment/plan Acute on chronic pancreatitis; -Continue IV hydration, pain control Advance diet as tolerated Patient has outpatient follow-up with GI; is a scheduled for endoscopic ultrasound in October.
[2022-10-04] MEDS: D5W AND NSS 1,000 ML IV SCH ×2 (01:14→08:30)
[2022-10-04 06:17] LABS: Basophils # (auto) 0.03 K/uL (0-0.2); Basophils % (auto) 0.5 %; Eosinophils # (auto) 0.14 K/uL (0-0.50); Eosinophils % (auto) 2.2 %; Hematocrit (blood only) 35.1 % (40.1-51.0); Hemoglobin 12.6 g/dl (14.0-18.0); Immature Granulocytes # (auto) 0.01 K/uL (0.00-0.02); Immature Granulocytes % (auto) 0.2 %; Lymphocytes # (auto) 1.43 K/uL (1.2-3.4); Lymphocytes % (auto) 22.5 %; Mean Corpuscular Hemoglobin 33.6 pg (25.0-34.0); Mean Corpuscular Hgb Conc 35.9 g/dL (32.0-36.0); Mean Corpuscular Volume 93.6 fL (80.0-100.0); Mean Platelet Volume 8.9 fL (9.4-12.4); Monocytes # (auto) 0.42 K/uL (0.24-0.82); Monocytes % (auto) 6.6 %; Neutrophils # (auto) 4.32 K/uL (1.4-6.5); Platelet Count 224 K/uL (130-400); RDW Coefficient of Variation 12.8 % (11.5-14.5); RDW Standard Deviation 44.5 fL (36.4-46.3); Red Blood Count 3.75 M/uL (4.63-6.08); White Blood Count 6.35 K/ul (4.8-10.8)
[2022-10-04 06:43] LABS: Albumin Globulin Ratio 1.5 (0.9-2); Albumin Level 3.6 gm/dl (3.4-5.0); BUN Creatinine Ratio 7.1 (10-20); Bilirubin,Total 0.7 mg/dl (0.2-1.0); Calcium 8.1 mg/dl (8.5-10.1); Est GFR (African American) 115.3 ml/min; Est GFR (Non-African American) 99.5 ml/min; Globulin 2.4 gm/dl (2.5-4.0); Potassium 3.7 mmol/L (3.5-5.1)
[2022-10-04] MEDS: PANTOprazole 40 MG in SYRINGE 0 ML IV SCH (08:27)
[2022-10-04] MEDS: METOPROLOL SUCC 25MG EXT REL TAB PO SCH (08:27)
[2022-10-04] MEDS: MAGNESIUM OXIDE 400 MG TAB PO SCH (08:27)
[2022-10-04] MEDS: TICAGRELOR 90 MG TAB PO SCH (08:27)
[2022-10-04] MEDS: SERTRALINE HCL 50 MG TABLET PO SCH (08:27)
[2022-10-04] MEDS: ASPIRIN 81 MG ECTAB PO SCH (08:27)
[2022-10-04] MEDS: EZETIMIBE 10 MG TABLET PO SCH (08:28)
[2022-10-04] MEDS: DICYCLOMINE HCL 10 MG CAP PO PRN (08:28)
[2022-10-04] MEDS: ROSUVASTATIN CALCIUM 20 MG TAB PO SCH (08:28)
[2022-10-04] MEDS: FAMOTIDINE 20 MG in SYRINGE 3 ML IV SCH (08:29)
--- NOTE | 2022-10-04 10:15 | Electrocardiogram Report ---
Test Reason : Blood Pressure : / mmHG Vent. Rate : 057 BPM Atrial Rate : 057 BPM P-R Int : 122 ms QRS Dur : 088 ms QT Int : 398 ms P-R-T Axes : 076 029 -01 degrees QTc Int : 387 ms Sinus bradycardia with sinus arrhythmia Inferior infarct (cited on or before 09-AUG-2022) Abnormal ECG When compared with ECG of 02-OCT-2022 18:58, No significant change was found Confirmed by Edmund Griffin ([id number]) on 10/04/2022 10:15:01 AM Referred By: REFERRED SELF Confirmed By:Edmund Griffin
--- NOTE | 2022-10-04 12:42 | Discharge Summary ---
Date of Service October 04, 2022 Admission HPI Per Admitting Provider This is a 52-year-old male with past medical history significant for hyperlipidemia, history of recurrent pancreatitis, history of CAD, Casanova's esophagus, GERD, ongoing tobacco use, generalized anxiety disorder, presents with severe abdominal pain that started tonight in the epigastric region. When he came in, it was 9/10 in severity and also has nausea and he said he vomited at home and also in the ER. Denies any blood in the vomiting. After receiving several doses of antiemetics and pain medication, he is still having 7/10 abdominal pain, so we were called for admission. Resting comfortably, hemodynamically stable. He said he had some chest pain earlier, but that got resolved. Denies any shortness of breath, no cough, no fevers, no earache, no blurred visions, no headache. Has some diarrhea. Denies any blood in the stools. Normal bladder movements. No swelling in the legs, no rash. Admission Exam Per Admitting Provider GENERAL: The patient is of moderate build, not in acute distress. VITAL SIGNS: Temperature 36.2, pulse 62, respiratory rate 16, blood pressure 172/106, oxygen 97% on room air. HEENT: Pupils equal, round and reactive to light. Oral mucosa moist. NECK: No JVD, no neck masses. CARDIOVASCULAR: S1 and S2 heard. Regular rate and rhythm. No murmur, no gallop. RESPIRATORY SYSTEM: Normal AP diameter. No accessory muscle use. No wheezing, no crackles. ABDOMEN: Soft, bowel sounds present. Diffuse abdominal discomfort. Mild guarding. No rigidity, no distention. CENTRAL NERVOUS SYSTEM: Cranial nerves II through XII grossly intact, nonfocal. EXTREMITIES: No edema, no erythema. Principal Diagnosis Acute on chronic pancreatitis Discharge Exam Constitutional: WD/WN, vitals as above, NAD, sitting up in bed, pleasant, conversing easily Respiratory: normal respiratory effort, lungs clear to auscultation, no wheeze, rales, rhonchi. Normal insp/exp effort, no accessory muscle use Cardiovascular: RRR, no murmur, no edema Vessels: no JVD or carotid bruit Chest: normal inspection of chest Abdomen: No tenderness present. Musculoskeletal: no cyanosis or clubbing, extremities motor strength 5/5 Skin: no rashes, warm and dry normal turgor Neurologic: PERRL, EOMI, accommodation nl, no face palsy, no dysarthria CN's II- XI intact bilaterally and moves all extremities Psychiatric: A+Ox3, euthymic affect Lymphatic: no cervical or axillary lymphadenopathy : deferred Discharge Data Allergies Allergy/AdvReac Type Severity Reaction Status Date / Time No Known Allergies Allergy Verified 10/02/22 20:04 Consultations 10/03/22 00:15 ED Decision to Admit Stat Ordered Studies 10/02/22 23:04 CT abd pelvis IV con only Urgent Hospital Course (1) Acute on chronic pancreatitis: Plan Patient is a 52-year-old male with past medical history of CAD status post stent, hyperlipidemia, RADHA, history of recurrent pancreatitis presented to the ED with abdominal pain and transient chest pain. CT abdomen and pelvis showed minimal inflammatory changes at the heterogeneous pancreatic head suggestive of acute on chronic pancreatitis and is stable subcentimeter hypodense focus at the pancreatic head. Lipase was negative. Patient was admitted to general medical floor; treated with IV fluids and analgesics. Over the course of the hospitalization, patient reported improvement in his symptoms with resolution of abdominal pain. Patient has outpatient endoscopic ultrasound scheduled in October by GI for evaluation of the subcentimeter hyperdense focus. Patient was discharged home with instruction to follow-up with PCP and GI. Total Time Total Time Spent Total Time Spent (In Minutes): 35 Total Time Includes: Examination of the Patient, Discharge Planning, Medication Reconciliation, Communication With Other Providers and Other Discharge Plan Discharge Items Patient Disposition: Home - Self-Care Reason For Visit: ABDOMINAL PAIN Discharge Diagnosis: Acute on chronic pancreatitis. Activity: Resume your previous activity Weightbearing: Full weightbearing Non-emergency contact: Primary Care Provider Call non-emergency contact if: you have any medication questions and your symptoms worsen Follow-up/Referrals: Wade Bragg MD [Primary Care Provider] - Diet: Low Fat Addtl Attending Provider Instructions: You were admitted to the hospital with acute on chronic pancreatitis. CT abdomen and pelvis showed inflammation in the pancreas and 7 mm of hypodense focus in pancreatic head seen in your last CAT scan as well. Please follow low fat diet for 1 more week. Drink plenty of fluids. You have follow-up with GI doctor later in the month; please go to your appointment. Please set up primary care follow-up for sometime next week. Pending Studies at Discharge: No Stand-Alone Forms: [facility], Smoking Cessation Medications and DC Order Prescriptions: Continued aspirin 81 mg tablet,delayed release (DR/EC) 81 mg PO QAM sertraline [Zoloft] 50 mg tablet 50 mg PO QAM nitroglycerin [Nitrostat] 0.4 mg tablet, sublingual 0.4 mg Sublingual UD PRN (Reason: Chest Pain) famotidine 40 mg tablet 40 mg PO HS dicyclomine 10 mg capsule 10 mg PO BID PRN (Reason: Abdominal Pain) ezetimibe 10 mg tablet 10 mg PO QAM magnesium oxide 400 mg magnesium Tablet 400 mg PO QAM pantoprazole 40 mg tablet,delayed release (DR/EC) 40 mg PO QAM rosuvastatin 40 mg Tablet 40 mg PO DAILY metoprolol succinate 25 mg Tablet Extended Release 24 Hr 25 mg PO DAILY Brilinta 90 mg tablet 60 mg PO AMHS Discharge Orders: Discharge Order (Routine); Ordered 10/04/22 Ordered By: Lukas Vazquez/Other Patient Handouts: Understanding Pancreatitis, Anatomy of the Digestive System, Pancreatitis Acute Dc, ED Pancreatitis Admission Data Admit Date/Time: 10/03/22 01:23 Attending Provider: Lukas Santos Admit Provider: Rosales Singh Primary Care Provider: Wade Bragg Other Providers: Rosales Singh Other Interventions: Discharge Summary Assessment (RN) Last Done: 10/04/22 11:40
--- NOTE | 2022-10-04 14:41 | Electrocardiogram Report ---
Test Reason : Blood Pressure : / mmHG Vent. Rate : 054 BPM Atrial Rate : 054 BPM P-R Int : 116 ms QRS Dur : 090 ms QT Int : 400 ms P-R-T Axes : 056 033 018 degrees QTc Int : 379 ms Poor data quality, interpretation may be adversely affected Sinus bradycardia with sinus arrhythmia RSR' or QR pattern in V1 suggests right ventricular conduction delay Inferior infarct (cited on or before 09-AUG-2022) Abnormal ECG When compared with ECG of 03-OCT-2022 09:04, (unconfirmed) No significant change was found Confirmed by Edmund Griffin ([id number]) on 10/04/2022 2:41:06 PM Referred By: REFERRED SELF Confirmed By:Edmund Griffin
== END 2022-10-04 13:29 | disposition home or self-care (01) ==
LOC: ED 18:12 → 4W 18:12

== ENCOUNTER 2022-10-10 10:35 | Inpatient (IN) ==
[2022-10-10] MEDS ORDERED: SODIUM CHLORIDE 0.9% 500 ML IV STA (11:24)
[2022-10-10] MEDS ORDERED: KETOROLAC TROMETHAMINE 15 MG/ML VIAL IV STA (11:24)
[2022-10-10] MEDS ORDERED: ONDANSETRON INJ 2 MG/ML 2 ML VIAL IV STA (11:24)
--- NOTE | 2022-10-10 11:27 | Emergency Department Note ---
History of Present Illness General Chief complaint: Abdominal Pain Stated complaint: ABD PAIN Time Seen by Provider: 10/10/22 11:20 History of Present Illness Maximum Pain Intensity: 10 52-year-old male presents to the ED with a chief complaint of abdominal pain in the epigastric area. He specifically states that he feels his pancreas is flared up. Shortly after arriving here he also developed some retrosternal chest pain. He reports some associated nausea and sweating. No alcohol consumption recently. He states that previous episodes of pancreatitis recently have not been related to alcohol and they are not sure the cause. He states that his last episode of pancreatitis was approximately a week ago. Home Medications Medication Instructions Recorded Confirmed Type aspirin 81 mg tablet,delayed 81 mg PO QAM 10/06/18 10/10/22 History release sertraline 50 mg tablet (Zoloft) 50 mg PO QAM 10/06/18 10/10/22 History nitroglycerin 0.4 mg sublingual 0.4 mg sublingual UD PRN Chest Pain 10/07/18 10/10/22 History tablet (Nitrostat) dicyclomine 10 mg capsule 10 mg PO BID PRN Abdominal Pain 12/06/20 10/10/22 History ezetimibe 10 mg tablet 10 mg PO QAM 12/06/20 10/10/22 History famotidine 40 mg tablet 40 mg PO HS 12/06/20 10/10/22 History magnesium oxide 400 mg PO QAM 12/06/20 10/10/22 History pantoprazole 40 mg tablet,delayed 40 mg PO QAM 08/20/21 10/10/22 History release metoprolol succinate 25 mg 25 mg PO DAILY 07/27/22 10/10/22 History tablet,extended release 24 hr rosuvastatin 40 mg tablet 40 mg PO DAILY 07/27/22 10/10/22 History ondansetron 4 mg disintegrating 4 mg PO TID PRN Nausea 10/10/22 10/10/22 History tablet ticagrelor 60 mg tablet (Brilinta) 60 mg PO BID 10/10/22 10/10/22 History Allergies Allergy/AdvReac Type Severity Reaction Status Date / Time No Known Allergies Allergy Verified 10/10/22 12:18 Past Med/Surg History Medical History Acute pancreatitis Barretts esophagus CAD (coronary artery disease) 2018-RCA stent x 2 07/2020-STEMI, s/p PCI to left circumflex with 2 MELLY. Post procedure complicated by V. fib arrest requiring defibrillation. 12/2020-NSTEMI s/p 3 Xience MELLY to the distal aspect of prior stent of the left posterior lateral branch vessel COVID-29 Oct 2021 Depression RADHA (generalized anxiety disorder) GERD (gastroesophageal reflux disease) Grade II diastolic dysfunction HLD (hyperlipidemia) Mobitz type 2 second degree atrioventricular block Splenic infarct Tobacco abuse Surgical History History of endoscopic retrograde cholangiopancreatography x2 (08/31, 09/30) History of vasectomy Hx laparoscopic cholecystectomy (08/22/21) Laparoscopic Cholecystectomy Dr. Davidson 08/22/2021 Family History Mother Gallbladder disease Sister Gallbladder disease Other Diabetes Stroke Denies family history of Pancreatic disease Social History Smoking Status: Current every day smoker Tobacco Type: Cigarettes Cigarettes Per Day: 1/2 pack; Second Hand Exposure: No; Hx Alcohol Use: No Hx Substance Use: No Preferred Language: Greek Communication Ability: Effective Medical Accountant Required: No Beliefs That Will Affect Care: None marital status: Single Current Living Situation: Alone current occupational status: employed Feels Safe at Home: Yes Assistive Devices: None Review of Systems A total of 10 systems reviewed and were otherwise negative Physical Exam Vital Signs Vital Signs - 24 hr 10/10/22 10:58 10/10/22 11:25 10/10/22 11:32 Temperature 36.5 C Temperature Source Oral Pulse Rate 81 71 Pulse Rate from SpO2 Sensor 69 Pulse Rhythm Regular Pulse Strength Normal Respiratory Rate 20 26 H Respiratory Effort / Characteristics Non-Labored Spontaneous Respiratory Depth Normal Respiratory Pattern Regular Blood Pressure 140/93 Blood Pressure [Right Arm] Blood Pressure Mean 108 Blood Pressure Mean [Right Arm] Blood Pressure Position Sitting Blood Pressure Position [Right Arm] Pulse Oximetry 98 98 99 Oxygen Delivery Method Room Air Room Air Sepsis Recent Fever Within 48 Hours No Sepsis New/Unexplained Change in Mental Status No Sepsis Action Taken by Nursing No Action Required 10/10/22 12:00 10/10/22 12:30 10/10/22 13:00 Temperature Temperature Source Pulse Rate 59 L 83 67 Pulse Rate from SpO2 Sensor 60 82 69 Pulse Rhythm Pulse Strength Respiratory Rate 26 H 24 26 H Respiratory Effort / Characteristics Respiratory Depth Respiratory Pattern Blood Pressure Blood Pressure [Right Arm] Blood Pressure Mean Blood Pressure Mean [Right Arm] Blood Pressure Position Blood Pressure Position [Right Arm] Pulse Oximetry 99 98 100 Oxygen Delivery Method Sepsis Recent Fever Within 48 Hours Sepsis New/Unexplained Change in Mental Status Sepsis Action Taken by Nursing 10/10/22 13:30 10/10/22 14:00 10/10/22 13:42 Temperature Temperature Source Pulse Rate 98 H 57 L Pulse Rate from SpO2 Sensor 53 L Pulse Rhythm Pulse Strength Respiratory Rate 27 H 20 22 Respiratory Effort / Characteristics Non-Labored Respiratory Depth Normal Respiratory Pattern Blood Pressure 144/93 H Blood Pressure [Right Arm] 156/79 H Blood Pressure Mean 110 Blood Pressure Mean [Right Arm] 104 Blood Pressure Position Blood Pressure Position [Right Arm] Lying Pulse Oximetry 96 93 Oxygen Delivery Method Room Air Sepsis Recent Fever Within 48 Hours Sepsis New/Unexplained Change in Mental Status Sepsis Action Taken by Nursing 10/10/22 13:42 10/10/22 14:00 10/10/22 14:00 Temperature Temperature Source Pulse Rate 56 L Pulse Rate from SpO2 Sensor 57 L Pulse Rhythm Pulse Strength Respiratory Rate 20 Respiratory Effort / Characteristics Respiratory Depth Respiratory Pattern Blood Pressure 134/86 156/79 H Blood Pressure [Right Arm] Blood Pressure Mean 102 104 Blood Pressure Mean [Right Arm] Blood Pressure Position Blood Pressure Position [Right Arm] Pulse Oximetry 98 Oxygen Delivery Method Sepsis Recent Fever Within 48 Hours Sepsis New/Unexplained Change in Mental Status Sepsis Action Taken by Nursing CONSTITUTIONAL/VITAL SIGNS: Reviewed / noted above. GENERAL: Non-toxic in appearance. INTEGUMENTARY: Warm, dry, and Gerber. HEAD: Normocephalic. EYES: without scleral icterus or trauma. ENT/OROPHARYNX: clear and moist. LYMPHADENOPATHY/NECK: Is supple without lymphadenopathy or meningismus. RESPIRATORY: Clear to auscultation bilaterally. No increased work of breathing. CARDIOVASCULAR: Regular rate and rhythm. GI/ABDOMEN: Soft and mildly tender in the epigastric area. No organomegaly or pulsatile mass. EXTREMITIES: Warm and well perfused. BACK: No CVA tenderness. NEUROLOGICAL: Intact without focal deficits. PSYCHIATRIC: normal affect. MUSCULOSKELETAL: Normally developed with good muscle tone. TRIAGE NURSING DOCUMENTATION REVIEWED. Course Administered Medications Heparin Sodium/Dextrose (Heparin Sodium/Dextrose) 25,000 units in 500 mls @ 20 mls/hr IV .Q24H [facility]; Protocol Stop: 11/09/22 13:14 Last Admin: 10/10/22 14:02 Dose: 1,000 units/hr, 20 mls/hr Documented By: EVERETT Co-signed By: YADY Discontinued Medications Aspirin (Aspirin Chew 324 Mg) 324 mg PO NOW STA Stop: 10/10/22 12:47 Last Admin: 10/10/22 13:20 Dose: 324 mg Documented By: EVERETT Heparin Sodium (Porcine) (Heparin Sod (Porcine) 1000 Unit/Ml) 1 units IV NOW ONE Stop: 10/10/22 13:03 Last Admin: 10/10/22 14:18 Dose: Not Given Documented By: EVERETT Heparin Sodium (Porcine) (Heparin Sod (Porcine) 1000 Unit/Ml) 4,000 units IV NOW ONE Stop: 10/10/22 13:46 Last Admin: 10/10/22 14:01 Dose: 4,000 units Documented By: EVERETT Co-signed By: YADY Heparin Sodium/Dextrose (Heparin Iv Adult Wt-Based Standard With Bolus Protocol) 1 each IV NOW STA; Protocol Stop: 10/10/22 12:48 Last Admin: 10/10/22 14:17 Dose: Not Given Documented By: EVERETT Sodium Chloride (Nss) 500 mls @ 999 mls/hr IV .Q31M STA Stop: 10/10/22 11:54 Last Admin: 10/10/22 11:41 Dose: 999 mls/hr Documented By: EVERETT Ketorolac Tromethamine (Ketorolac Tromethamine 15 Mg/Ml Vial) 10 mg IV NOW STA Stop: 10/10/22 11:25 Last Admin: 10/10/22 11:48 Dose: 10 mg Documented By: EVERETT Nitroglycerin (Nitroglycerin Sl 0.4 Mg/Tab Tab) 0.4 mg SL NOW STA Stop: 10/10/22 12:47 Last Admin: 10/10/22 13:20 Dose: 0.4 mg Documented By: EVERETT Nitroglycerin (Nitroglycerin Sl 0.4 Mg/Tab Tab) 0.4 mg SL NOW STA Stop: 10/10/22 13:35 Last Admin: 10/10/22 13:40 Dose: 0.4 mg Documented By: EVERETT Ondansetron HCl (Ondansetron Inj 2 Mg/Ml 2 Ml Vial) 4 mg IV NOW STA Stop: 10/10/22 11:25 Last Admin: 10/10/22 11:48 Dose: 4 mg Documented By: EVERETT Critical Care Time Critical Care Time: Yes Total Critical Care Time: 35 I have personally spent 35 minutes of critical care time in the direct management of this patient. This includes bedside care, interpretation of diagnostic studies, and testing, discussion with consultants, patient, and family members, and other required patient management activities. This 35 minutes is in excess of all separately billable procedures. Medical Decision Making Differential Diagnosis Differential considered: pancreatitis, hepatitis, acute cholecystitis, AAA, UTI, pyelonephritis, kidney stones, appendicitis, diverticulitis, shingles, bowel obstruction, mesenteric ischemia Medical Records Attestation: I reviewed the patient's medical records. Home Medications Current Medication List: was personally reviewed by me Laboratory Data Attestation: I reviewed the patient's lab results. Result diagrams: 10/10/22 11:40 10/10/22 11:40 Lab Results 10/10/22 10/10/22 10/10/22 Range/Units 11:40 11:40 13:16 WBC 7.54 (4.8-10.8) K/ul RBC 4.11 L (4.63-6.08) M/uL Hgb 14.0 (14.0-18.0) g/dl Hct 39.5 L (40.1-51.0) % MCV 96.1 (80.0-100.0) fL MCH 34.1 H (25.0-34.0) pg MCHC 35.4 (32.0-36.0) g/dL RDW Std Deviation 46.8 H (36.4-46.3) fL RDW Coeff of Mckinley 13.2 (11.5-14.5) % Plt Count 296 (130-400) K/uL MPV 9.1 L (9.4-12.4) fL Immature Gran % (Auto) 0.1 % Neut % (Auto) 60.9 % Lymph % (Auto) 28.4 % Fajardo % (Auto) 7.2 % Eos % (Auto) 2.3 % Baso % (Auto) 1.1 % Neut # (Auto) 4.60 (1.4-6.5) K/uL Lymph # (Auto) 2.14 (1.2-3.4) K/uL Fajardo # (Auto) 0.54 (0.24-0.82) K/uL Eos # (Auto) 0.17 (0-0.50) K/uL Baso # (Auto) 0.08 (0-0.2) K/uL Immature Gran # (Auto) 0.01 (0.00-0.02) K/uL PT (9.0-12.0) Seconds INR (0.9-1.1) APTT (21.0-31.0) Seconds PTT Ratio Sodium 137 (136-145) mmol/L Potassium 4.3 (3.5-5.1) mmol/L Chloride 107 (98-107) mmol/L Carbon Dioxide 22 (21-32) mmol/L Anion Gap 8 (3-11) BUN 9 (6-23) mg/dl Creatinine 0.93 (0.6-1.4) mg/dl Est Cr Clr Drug Dosing 72.6 ml/min Est GFR ( Amer) 108.2 ml/min Est GFR (Non-Af Amer) 93.4 ml/min BUN/Creatinine Ratio 9.7 L (10-20) Glucose 94 (70-99(Fasting)) mg/dl Calcium 9.4 (8.5-10.1) mg/dl Total Bilirubin 0.7 (0.2-1.0) mg/dl AST 37 (13-39) U/L ALT 16 (7-52) U/L Alkaline Phosphatase 64 (34-104) U/L Troponin I High Sens 6302.9 H* 8164.1 H* D (0-20) pg/ml Total Protein 6.9 (6.0-8.3) gm/dl Albumin 4.1 (3.4-5.0) gm/dl Globulin 2.8 (2.5-4.0) gm/dl Albumin/Globulin Ratio 1.5 (0.9-2) Lipase 15 (11-82) U/L SARS-CoV-2, RNA, NAAT (NEGATIVE) 10/10/22 10/10/22 Range/Units 13:19 Unknown WBC (4.8-10.8) K/ul RBC (4.63-6.08) M/uL Hgb (14.0-18.0) g/dl Hct (40.1-51.0) % MCV (80.0-100.0) fL MCH (25.0-34.0) pg MCHC (32.0-36.0) g/dL RDW Std Deviation (36.4-46.3) fL RDW Coeff of Mckinley (11.5-14.5) % Plt Count (130-400) K/uL MPV (9.4-12.4) fL Immature Gran % (Auto) % Neut % (Auto) % Lymph % (Auto) % Fajardo % (Auto) % Eos % (Auto) % Baso % (Auto) % Neut # (Auto) (1.4-6.5) K/uL Lymph # (Auto) (1.2-3.4) K/uL Fajardo # (Auto) (0.24-0.82) K/uL Eos # (Auto) (0-0.50) K/uL Baso # (Auto) (0-0.2) K/uL Immature Gran # (Auto) (0.00-0.02) K/uL PT 10.8 (9.0-12.0) Seconds INR 1.0 (0.9-1.1) APTT 28.0 (21.0-31.0) Seconds PTT Ratio 1.0 Sodium (136-145) mmol/L Potassium (3.5-5.1) mmol/L Chloride (98-107) mmol/L Carbon Dioxide (21-32) mmol/L Anion Gap (3-11) BUN (6-23) mg/dl Creatinine (0.6-1.4) mg/dl Est Cr Clr Drug Dosing ml/min Est GFR ( Amer) ml/min Est GFR (Non-Af Amer) ml/min BUN/Creatinine Ratio (10-20) Glucose (70-99(Fasting)) mg/dl Calcium (8.5-10.1) mg/dl Total Bilirubin (0.2-1.0) mg/dl AST (13-39) U/L ALT (7-52) U/L Alkaline Phosphatase (34-104) U/L Troponin I High Sens (0-20) pg/ml Total Protein (6.0-8.3) gm/dl Albumin (3.4-5.0) gm/dl Globulin (2.5-4.0) gm/dl Albumin/Globulin Ratio (0.9-2) Lipase (11-82) U/L SARS-CoV-2, RNA, NAAT NEGATIVE (NEGATIVE) Imaging Data Radiologist's Impression: Chest X-Ray 10/10/22 11:25 XR chest 1V portable CLINICAL HISTORY: Epigastric pain. COMPARISON STUDY: Chest radiograph October 02, 2022. FINDINGS: Lung volumes are normal. Lungs are clear. There is no pneumothorax or pleural effusion. Cardiac size is normal. Mediastinal contours are normal. There is no evidence for pulmonary edema. IMPRESSION: No acute cardiopulmonary findings. ACT 112: Negative or not required by law. Electronically signed by: Urban Eastman M.D. 10/10/2022 12:23 PM ECG Data Attestation: I personally reviewed and interpreted this ECG as follows: Additional Comments: Twelve-lead EKG: Per my interpretation shows a normal sinus rhythm at a rate of 62. No ST elevation. No PVCs. Normal QTC. Possibly hyperacute T waves in the the 3, 4 and 5. Small Q waves in the inferior leads. MDM Narrative 52-year-old male presents with concerns about pancreatitis. Symptoms developed this morning around 9 AM when he awoke. He also developed some chest pain when he arrived. His exam was unremarkable. His vital signs are stable. Twelve- lead EKG shows a sinus rhythm without acute ischemic change. Troponin is elevated at around 6000. This went up to around 8000 after couple of hours. Chest x-ray was negative for acute disease. COVID test was negative. Lipase was negative. CBC and chemistry panel was otherwise unremarkable. The patient was treated with some aspirin p.o. He was given IV Toradol. IV Zofran and IV fluids was also given. Several nitroglycerin sublingual's were given which improved his pain. He was started on IV heparin and a heparin drip. I did speak with the hospitalist as well as Dr. Whittaker from cardiology. They evaluated the patient in the ED. Impression & Plan Non-ST elevation (NSTEMI) myocardial infarction Discharge Plan Visit Data Chief Complaint: Abdominal Pain Stated Complaint: ABD PAIN ED Provider: Antoni Reyes Discharge Problem: Non-ST elevation (NSTEMI) myocardial infarction Patient Disposition: Being Evaluated by Hospitalist Forms Stand Alone Forms: [facility], Virtual Emergency Department, Important Visit Information Prescriptions Prescriptions: No Action aspirin 81 mg tablet,delayed release (DR/EC) 81 mg PO QAM sertraline [Zoloft] 50 mg tablet 50 mg PO QAM nitroglycerin [Nitrostat] 0.4 mg tablet, sublingual 0.4 mg Sublingual UD PRN (Reason: Chest Pain) famotidine 40 mg tablet 40 mg PO HS dicyclomine 10 mg capsule 10 mg PO BID PRN (Reason: Abdominal Pain) ezetimibe 10 mg tablet 10 mg PO QAM magnesium oxide 400 mg magnesium Tablet 400 mg PO QAM pantoprazole 40 mg tablet,delayed release (DR/EC) 40 mg PO QAM rosuvastatin 40 mg Tablet 40 mg PO DAILY metoprolol succinate 25 mg Tablet Extended Release 24 Hr 25 mg PO DAILY ondansetron 4 mg tablet,disintegrating 4 mg PO TID PRN (Reason: Nausea) Brilinta 60 mg tablet 60 mg PO BID Referrals Referrals: Wade Bragg MD [Primary Care Provider] -
[2022-10-10 11:56] LABS: Basophils # (auto) 0.08 K/uL (0-0.2); Basophils % (auto) 1.1 %; Eosinophils # (auto) 0.17 K/uL (0-0.50); Eosinophils % (auto) 2.3 %; Hematocrit (blood only) 39.5 % (40.1-51.0); Immature Granulocytes # (auto) 0.01 K/uL (0.00-0.02); Immature Granulocytes % (auto) 0.1 %; Lymphocytes # (auto) 2.14 K/uL (1.2-3.4); Lymphocytes % (auto) 28.4 %; Mean Corpuscular Hemoglobin 34.1 pg (25.0-34.0); Mean Corpuscular Hgb Conc 35.4 g/dL (32.0-36.0); Mean Corpuscular Volume 96.1 fL (80.0-100.0); Mean Platelet Volume 9.1 fL (9.4-12.4); Monocytes # (auto) 0.54 K/uL (0.24-0.82); Monocytes % (auto) 7.2 %; Neutrophils % (auto) 60.9 %; Platelet Count 296 K/uL (130-400); RDW Coefficient of Variation 13.2 % (11.5-14.5); RDW Standard Deviation 46.8 fL (36.4-46.3); Red Blood Count 4.11 M/uL (4.63-6.08); White Blood Count 7.54 K/ul (4.8-10.8)
--- NOTE | 2022-10-10 12:24 | XRay Report ---
XR chest 1V portable CLINICAL HISTORY: Epigastric pain. COMPARISON STUDY: Chest radiograph October 02, 2022. FINDINGS: Lung volumes are normal. Lungs are clear. There is no pneumothorax or pleural effusion. Car diac size is normal. Mediastinal contours are normal. There is no evidence for pulmonary edema. IMPRESSION: No acute cardiopulmonary findings. ACT 112: Negative or not required by law. Electronically signed by: Urban Eastman M.D. 10/10/2022 12:23 PM
[2022-10-10 12:35] LABS: Troponin I High Sensitivity 6302.9 pg/ml (0-20)
[2022-10-10 12:38] LABS: Albumin Globulin Ratio 1.5 (0.9-2); Albumin Level 4.1 gm/dl (3.4-5.0); BUN Creatinine Ratio 9.7 (10-20); Bilirubin,Total 0.7 mg/dl (0.2-1.0); Calcium 9.4 mg/dl (8.5-10.1); Creatinine Clr Calc Pharmacy 72.6 ml/min; Est GFR (African American) 108.2 ml/min; Est GFR (Non-African American) 93.4 ml/min; Globulin 2.8 gm/dl (2.5-4.0); Potassium 4.3 mmol/L (3.5-5.1); Total Protein 6.9 gm/dl (6.0-8.3)
[2022-10-10] MEDS ORDERED: ASPIRIN CHEW 324 MG PO STA (12:46)
[2022-10-10] MEDS ORDERED: NITROGLYCERIN SL 0.4 MG/TAB TAB SL STA ×2 (12:46→13:34)
[2022-10-10] MEDS ORDERED: Heparin IV Adult Wt-Based Standard WITH Bolus Protocol IV STA (12:47)
[2022-10-10] MEDS ORDERED: HEPARIN SOD (PORCINE) 1000 UNIT/ML IV ONE ×2 (13:02→13:45)
[2022-10-10] MEDS ORDERED: HEPARIN SODIUM/DEXTROSE 25,000 UNITS/500 ML BAG IV SCH (13:15)
--- NOTE | 2022-10-10 14:12 | History & Physical Report ---
Date of Service October 10, 2022 Assessment & Plan (1) Non-ST elevation (NSTEMI) myocardial infarction: (2) Recurrent pancreatitis: (3) CAD (coronary artery disease): (4) RADHA (generalized anxiety disorder): (5) Depression: (6) GERD (gastroesophageal reflux disease): (7) HLD (hyperlipidemia): Plan This is a 52yo M with a PMH of recurrent pancreatitis, CAD, Casanova's esophagus, GERD, ongoing tobacco use, generalized anxiety disorder and other medical problems listed below who presents with epigastric discomfort and chest pain and was found to have an NSTEMI. NSTEMI H/o CAD Tobacco use Worsening epigastric pain and development of chest pain this morning CP improved with ntg but still present 3/10 Initial HS troponin 6,300 -> 8,164. ECG without acute ST elevation Complex cardiac history with recent intervention in [address] Whittaker, who evaluated patient in ED Bedside 2D echo in ED with inferior, posterior, and inferoseptal wall motion abnormality Patient now undergoing cardiac catheterization with Dr. Castellano Continue current cardiovascular medications including aspirin, Brilinta, statin therapy, and beta-shay RADHA Depression Continue Zoloft GERD Continue PPI HLD Continue statin DVT Ppx: Started on IV heparin in ED Code status: FULL PCP: Yemi Dispo: Admit orders to PCU but will be determined following cath Patient seen in collaboration with Dr. Álvarez. Please see addendum. History of Present Illness Chief Complaint: Abdominal/chest pain Primary Care Provider: Wade Bragg MD This is a 52yo M with a PMH of recurrent pancreatitis, CAD, Casanova's e sophagus, GERD, ongoing tobacco use, generalized anxiety disorder and other medical problems listed below who presents with epigastric discomfort and chest pain. [place] his pancreatitis had flared up and also having some chest pain with associated nausea and diaphoresis. 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 Symptoms resolved with rest but did occur a couple times. Was able to go home and sleep but woke up with worsened epigastric pain he rated 8/10 that was wrapping around to his back on the left side. Does have baseline epigastric discomfort due to recurrent pancreatitis but states that is more of a 2/10 pain that has been present since he was admitted last week for pancreatitis (discharged home on 10/04). Upon presentation here, pain expanded to chest area to but states that improved with nitroglycerin and is now down to a 3/10. Denies that pain radiating to her arms or up to jaw. Nausea and diaphoresis have resolved. Vomiting x 1 in ER. No recent illness. No fever, chills, headache, palpitations, shortness of breath, dysuria, diarrhea or constipation. Still smoking approximately a 1/2 ppd. Significant cardiac history including MELLY in 2017, 2019 and 2020. Taking aspirin, Brilinta, statin and beta shay as prescribed. Allergies Allergy/AdvReac Type Severity Reaction Status Date / Time No Known Allergies Allergy Verified 10/10/22 12:18 Home Medications Medication Instructions Recorded Confirmed Type aspirin 81 mg tablet,delayed 81 mg PO QAM 10/06/18 10/10/22 History release sertraline 50 mg tablet (Zoloft) 50 mg PO QAM 10/06/18 10/10/22 History nitroglycerin 0.4 mg sublingual 0.4 mg sublingual UD PRN Chest Pain 10/07/18 10/10/22 History tablet (Nitrostat) dicyclomine 10 mg capsule 10 mg PO BID PRN Abdominal Pain 12/06/20 10/10/22 History ezetimibe 10 mg tablet 10 mg PO QAM 12/06/20 10/10/22 History famotidine 40 mg tablet 40 mg PO HS 12/06/20 10/10/22 History magnesium oxide 400 mg PO QAM 12/06/20 10/10/22 History pantoprazole 40 mg tablet,delayed 40 mg PO QAM 08/20/21 10/10/22 History release metoprolol succinate 25 mg 25 mg PO DAILY 07/27/22 10/10/22 History tablet,extended release 24 hr rosuvastatin 40 mg tablet 40 mg PO DAILY 07/27/22 10/10/22 History ondansetron 4 mg disintegrating 4 mg PO TID PRN Nausea 10/10/22 10/10/22 History tablet ticagrelor 90 mg tablet (Brilinta) 90 mg PO BID 30 days #60 tabs 10/12/22 Rx Past Med/Surg History Medical History Acute pancreatitis Barretts esophagus CAD (coronary artery disease) 2018-RCA stent x 2 07/2020-STEMI, s/p PCI to left circumflex with 2 MELLY. Post procedure compl icated by V. fib arrest requiring defibrillation. 12/2020-NSTEMI s/p 3 Xience MELLY to the distal aspect of prior stent of the left posterior lateral branch vessel COVID-29 Oct 2021 Depression RADHA (generalized anxiety disorder) GERD (gastroesophageal reflux disease) Grade II diastolic dysfunction HLD (hyperlipidemia) Mobitz type 2 second degree atrioventricular block Recurrent pancreatitis Splenic infarct Tobacco abuse Surgical History History of endoscopic retrograde cholangiopancreatography x2 (08/31, 09/30) History of vasectomy Hx laparoscopic cholecystectomy (08/22/21) Laparoscopic Cholecystectomy Dr. Davidson 08/22/2021 Family History Mother Gallbladder disease Sister Gallbladder disease Other Diabetes Stroke Denies family history of Pancreatic disease Social History Smoking Status: Current every day smoker Tobacco Type: Cigarettes Cigarettes Per Day: 1/2 pack; Second Hand Exposure: No; Hx Alcohol Use: No Hx Substance Use: No Preferred Language: Spanish Communication Ability: Effective Clinical Trial Leader Required: No Beliefs That Will Affect Care: None marital status: Single Current Living Situation: Alone current occupational status: employed Feels Safe at Home: Yes Assistive Devices: None Review of Systems Review of Systems: At least ten systems reviewed and negative except as noted in the HPI. Physical Exam Physical Exam: General Appearance: WD/WN, vitals as above, NAD, lying in bed, anxious, conversing easily Head: normocephalic, atraumatic Eyes: normal inspection, PERRL, conjunctivae normal, anicteric sclerae ENT: external ear and nose normal, oropharynx normal Neck: normal visual inspection, trachea midline, no thyromegaly Respiratory: normal respiratory effort, lungs clear to auscultation, no wheeze, rales, rhonchi. No accessory muscle use Cardiovascular: regular rate, rhythm, no murmur, normal peripheral pulses, no BLE edema. Vessels: no JVD Chest: normal inspection of chest Abdomen/GI: normal bowel sounds, soft, + epigastric pain, non-distended, no hepatosplenomegaly Extremities/Musculoskeletal: no cyanosis or clubbing, extremities motor strength 5/5 Neurologic: PERRL, EOMI, accommodation nl, no face palsy, no dysarthria, CN's II-XI intact bilaterally and moves all extremities Psychiatric: A+Ox3, euthymic affect Skin: no rashes, normal color, warm/dry Results & Data Results & Data ([facility]) Vital Signs (Past 12 Hours) Vital Signs Temp Pulse Resp BP Pulse Ox O2 Del Method 10/10/22 13:30 98 H 27 H 144/93 H 96 10/10/22 13:00 67 26 H 100 10/10/22 12:30 83 24 98 10/10/22 12:00 59 L 26 H 99 10/10/22 11:32 71 26 H 99 10/10/22 11:25 98 Room Air 10/10/22 10:58 36.5 C 81 20 140/93 98 Room Air Laboratory Results Short CBC 10/10/22 Range/Units 11:40 WBC 7.54 (4.8-10.8) K/ul Hgb 14.0 (14.0-18.0) g/dl Hct 39.5 L (40.1-51.0) % Plt Count 296 (130-400) K/uL BMP 10/10/22 11:40 Sodium 137 Potassium 4.3 Chloride 107 Carbon Dioxide 22 BUN 9 Creatinine 0.93 Glucose 94 Calcium 9.4 Liver Function 10/10/22 Range/Units 11:40 Total Bilirubin 0.7 (0.2-1.0) mg/dl AST 37 (13-39) U/L ALT 16 (7-52) U/L Alkaline Phosphatase 64 (34-104) U/L Albumin 4.1 (3.4-5.0) gm/dl Diagnostic Findings Chest X-Ray 10/10/22 11:25 XR chest 1V portable CLINICAL HISTORY: Epigastric pain. COMPARISON STUDY: Chest radiograph October 02, 2022. FINDINGS: Lung volumes are normal. Lungs are clear. There is no pneumothorax or pleural effusion. Cardiac size is normal. Mediastinal contours are normal. There is no evidence for pulmonary edema. IMPRESSION: No acute cardiopulmonary findings. ACT 112: Negative or not required by law. Electronically signed by: Urban Eastman M.D. 10/10/2022 12:23 PM Supervising Physician Co-Signing Physician Notes delayed entry date of service noted above Attending Addendum: care coordinated with KANA Steve please refer to her notes for full details, I agree with her notes patient seen and examined, records reviewed by myself as well on exam, patient s/p PCI with stent placement resting in bed, comfortable, sleeping but easily awakened no chest pain, dyspnea, palpitations, dizziness has some abdominal discomfort, no nausea/vomiting no other symptoms VS noted and reviewed oriented x3, not in distress, speaks in sentences with no effort nor accessory muscle use normal rate, regular rhythm, no murmurs clear breath sounds bilaterally non distended, soft, nontender no bipedal edema, erythema, warmth no neuro deficits ASSESSMENT AND PLAN diagnoses and plan of care as per KANA Steve's notes Marco Álvarez MD
[2022-10-10 14:25] LABS: Prothrombin Time 10.8 Seconds (9.0-12.0)
--- NOTE | 2022-10-10 14:57 | Electrocardiogram Report ---
Test Reason : Blood Pressure : / mmHG Vent. Rate : 062 BPM Atrial Rate : 061 BPM P-R Int : 000 ms QRS Dur : 084 ms QT Int : 374 ms P-R-T Axes : 000 017 041 degrees QTc Int : 379 ms Poor data quality, interpretation may be adversely affected Normal sinus rhythm Inferior infarct (cited on or before 09-AUG-2022) Abnormal ECG When compared with ECG of 04-OCT-2022 00:38, ST now depressed in Lateral leads Confirmed by Neo Garrett ([id number]) on 10/10/2022 2:56:27 PM Referred By: REFERRED SELF Confirmed By:Neo Garrett
[2022-10-10] MEDS: NITROGLYCERIN 2% OINTMENT 30GM TUBE EXT SCH ×2 (15:10→20:11)
--- NOTE | 2022-10-10 15:19 | Cardiology Consultation ---
Date of Consultation October 10, 2022 Assessment & Plan (1) Non-ST elevation (NSTEMI) myocardial infarction: (2) CAD (coronary artery disease): (3) Tobacco abuse: Plan 52-year-old patient presents with NSTEMI. Chest pain improved with sublingual nitroglycerin however persist. Bedside 2D transthoracic echocardiogram demonstrating inferior, posterior, and inferoseptal wall motion abnormality. Recommend intravenous heparin infusion. Case discussed with interventional cardiology. With history of electrically silent circumflex territory STEMI 12/2020, recommend urgent cardiac catheterization for coronary angiography and possible intervention if necessary. The risk, benefits, alternatives to procedure discussed. Patient agreeable. Continue current cardiovascular medications including aspirin, Brilinta, statin therapy, and beta-shay. Further recommendations pending result of cardiac catheterization. 46 minutes critical care time spent evaluating patient, formulating plan of care, reviewing data, and discussion with consulting physicians. History of Present Illness Reason for Consultation: Nstemi Requesting Physician: Dr. Reyes Attending Physician: Dr. Chan History of Present Illness 52-year-old male with history of complex coronary arteries he presented to the emergency department with abdominal discomfort. Patient concerned that he was experiencing episode of recurrent pericarditis. While in the ER he experienced 8/10 chest pain described as a heaviness. Discomfort improved with sublingual nitroglycerin to 3/10. ECG performed without evidence of ST elevation. Initial troponin greater than 6000. Repeat troponin greater than 8000. Currently the patient is somewhat uncomfortable complaining of epigastric and chest discomfort. Rates the chest discomfort as 3/10, abdominal discomfort as 6/10. +vomiting x1 in ER. Intravenous heparin infusing. His lipase is within normal limits. Denies orthopnea, PND, lower extremity edema. Denies any recent exertional chest pain or unusual shortness of breath. Allergies Allergy/AdvReac Type Severity Reaction Status Date / Time No Known Allergies Allergy Verified 10/10/22 12:18 Home Medications Medication Instructions Recorded Confirmed Type aspirin 81 mg tablet,delayed 81 mg PO QAM 10/06/18 10/10/22 History release sertraline 50 mg tablet (Zoloft) 50 mg PO QAM 10/06/18 10/10/22 History nitroglycerin 0.4 mg sublingual 0.4 mg sublingual UD PRN Chest Pain 10/07/18 10/10/22 History tablet (Nitrostat) dicyclomine 10 mg capsule 10 mg PO BID PRN Abdominal Pain 12/06/20 10/10/22 History ezetimibe 10 mg tablet 10 mg PO QAM 12/06/20 10/10/22 History famotidine 40 mg tablet 40 mg PO HS 12/06/20 10/10/22 History magnesium oxide 400 mg PO QAM 12/06/20 10/10/22 History pantoprazole 40 mg tablet,delayed 40 mg PO QAM 08/20/21 10/10/22 History release metoprolol succinate 25 mg 25 mg PO DAILY 07/27/22 10/10/22 History tablet,extended release 24 hr rosuvastatin 40 mg tablet 40 mg PO DAILY 07/27/22 10/10/22 History ondansetron 4 mg disintegrating 4 mg PO TID PRN Nausea 10/10/22 10/10/22 History tablet ticagrelor 60 mg tablet (Brilinta) 60 mg PO BID 10/10/22 10/10/22 History Patient History Medical History Acute pancreatitis Barretts esophagus CAD (coronary artery disease) 2018-RCA stent x 2 07/2020-STEMI, s/p PCI to left circumflex with 2 MELLY. Post procedure co mplicated by V. fib arrest requiring defibrillation. 12/2020-NSTEMI s/p 3 Xience MELLY to the distal aspect of prior stent of the left posterior lateral branch vessel COVID-29 Oct 2021 Depression RADHA (generalized anxiety disorder) GERD (gastroesophageal reflux disease) Grade II diastolic dysfunction HLD (hyperlipidemia) Mobitz type 2 second degree atrioventricular block Recurrent pancreatitis Splenic infarct Tobacco abuse Surgical History History of endoscopic retrograde cholangiopancreatography x2 (08/31, 09/30) History of vasectomy Hx laparoscopic cholecystectomy (08/22/21) Laparoscopic Cholecystectomy Dr. Davidson 08/22/2021 Family History Mother Gallbladder disease Sister Gallbladder disease Other Diabetes Stroke Denies family history of Pancreatic disease Social History Smoking Status: Current every day smoker Tobacco Type: Cigarettes Cigarettes Per Day: 1/2 pack; Second Hand Exposure: No; Tobacco Cessation Education Requested by Patient: No Hx Alcohol Use: No Hx Substance Use: No Preferred Language: Greenlandic Communication Ability: Effective Funeral Planner Required: No Beliefs That Will Affect Care: None marital status: Single Current Living Situation: Alone current occupational status: employed Other Information That Helps Us Care for You: No Feels Safe at Home: Yes Safety Concerns: Feels Safe At This Time Assistive Devices: None Review of Systems Review of Systems: All systems reviewed & are unremarkable except as noted in Subjective Physical Exam Constitutional: + acute distress, + ill appearing and + thin Respiratory: no respiratory distress, no labored breathing and no retractions Auscultation: no crackles, no rales, no rhonchi and no wheezes Cardiovascular: Rate/Rhythm: regular rate and regular rhythm Heart Sounds: normal S1 and normal S2 Vessels: no JVD and no carotid bruit Extremities: no edema Gastrointestinal (Abdomen): Inspection/Auscultation: normal bowel sounds; abdomen not distended Percussion/Palpation: abdomen soft; abdomen nontender, no guarding and abdomen not rigid Neurologic: CN's II-XI intact bilaterally and moves all extremities; no focal motor deficits Results & Data ([facility]) Vital Signs (Past 12 Hours) Vital Signs Temp Pulse Resp BP BP Pulse Ox O2 Del Method 10/10/22 14:00 56 L 20 98 10/10/22 14:00 156/79 H 10/10/22 13:42 134/86 10/10/22 13:42 57 L 22 10/10/22 14:00 20 156/79 H 93 Room Air 10/10/22 13:30 98 H 27 H 144/93 H 96 10/10/22 13:00 67 26 H 100 10/10/22 12:30 83 24 98 10/10/22 12:00 59 L 26 H 99 10/10/22 11:32 71 26 H 99 10/10/22 11:25 98 Room Air 10/10/22 10:58 36.5 C 81 20 140/93 98 Room Air Diagnostic Findings Images from cardiac catheterization dated 12/2020 personally reviewed and interpreted.
[2022-10-10] MEDS ORDERED: niCARdipine HCL INJ 2.5 MG/ML 10 ML AMP ONE (15:28)
[2022-10-10] MEDS ORDERED: MIDAZOLAM HCL 1 MG/ML 2ML VIAL ONE (15:28)
[2022-10-10] MEDS ORDERED: HEPARIN (PORCINE) 1000 UNIT/ML 10 ML (CATH LAB USE ONLY) ONE (15:28)
[2022-10-10] MEDS ORDERED: fentaNYL citrate 100 MCG/2 ML VIAL ONE (15:29)
[2022-10-10] MEDS ORDERED: NITROGLYCERIN/D5W 100MCG/ML 20ML SYR ONE (15:31)
[2022-10-10] MEDS ORDERED: ATROPINE SULFATE 0.1 MG/ML 10ML SYR IV ONE (15:51)
[2022-10-10] MEDS ORDERED: ADENOSINE IV SOLN 3 MG/ML 20 ML VIAL IV ONE (16:28)
[2022-10-10] MEDS ORDERED: EPTIFIBATIDE 2 MG/ML 10 ML VIAL (CATH LAB USE ONLY) IV ONE (16:58)
[2022-10-10] MEDS ORDERED: EPTIFIBATIDE 0.75 MG/ML 75MG VIAL (CATH LAB USE ONLY) IV ONE (16:58)
[2022-10-10] MEDS ORDERED: TICAGRELOR 90 MG TAB ONE (17:03)
[2022-10-10] MEDS ORDERED: EPTIFIBATIDE BOLUS/DRIP IV STA (17:22)
[2022-10-10] MEDS ORDERED: STAT IV Infusion **Titration per Protocol STA (17:22)
--- NOTE | 2022-10-10 17:30 | Pre Anesthesia Assessment ---
Date of Service October 10, 2022 Pre Sedation Assessment Vital Signs Temp Pulse Resp BP BP Pulse Ox O2 Del Method 10/10/22 17:01 Room Air 10/10/22 14:00 56 L 20 98 10/10/22 14:00 156/79 H 10/10/22 13:42 134/86 10/10/22 13:42 57 L 22 10/10/22 14:00 20 156/79 H 93 Room Air 10/10/22 13:30 98 H 27 H 144/93 H 96 10/10/22 13:00 67 26 H 100 10/10/22 12:30 83 24 98 10/10/22 12:00 59 L 26 H 99 10/10/22 11:32 71 26 H 99 10/10/22 11:25 98 Room Air 10/10/22 10:58 36.5 C 81 20 140/93 98 Room Air Cardiovascular RRR, no murmur, no edema Respiratory normal respiratory effort, lungs clear to auscultation Pre-Sedation Airway Assessment Smoking Status: Current every day smoker Hx Sleep Apnea: No Hx Difficult Intubation: No Mallampati 3 ASA 4 Notes The planned sedation has been discussed with the patient. Informed Consent was obtained. I have identified the patient, determined the appropriateness of sedation and have assessed the patient immediately prior to the procedure. All medicine(s) and interventions are by my order.
--- NOTE | 2022-10-10 17:32 | Post Anesthesia Assessment ---
Date of Service October 10, 2022 Post Sedation Assessment Vital Signs Temp Pulse Resp BP BP Pulse Ox O2 Del Method 10/10/22 17:01 Room Air 10/10/22 14:00 56 L 20 98 10/10/22 14:00 156/79 H 10/10/22 13:42 134/86 10/10/22 13:42 57 L 22 10/10/22 14:00 20 156/79 H 93 Room Air 10/10/22 13:30 98 H 27 H 144/93 H 96 10/10/22 13:00 67 26 H 100 10/10/22 12:30 83 24 98 10/10/22 12:00 59 L 26 H 99 10/10/22 11:32 71 26 H 99 10/10/22 11:25 98 Room Air 10/10/22 10:58 36.5 C 81 20 140/93 98 Room Air Recovery Score Activity: Moves 4 extremities Respiration: Deep Breath/Cough Circulation: +/-20% PreAnes Value Consciousness: Fully Awake Oxygen Saturation: > 92% On Room Air Discharge Sedation Level of Care: Phase I Post Sedation Plan On clinical assessment, the patient appears to have tolerated the sedation without complications. Patient is recovering as anticipated. Patient will continue to be monitored by nursing and may be discharged when sedation discharge criteria are met per below protocol. Upon Completions of procedure up to 15 minutes continue every 5 minute vital signs and the P.A.R. score; then discharge to a Phase I or Fast Track to Phase II per the following guidelines: * Discharge Patient to appropriate Phase II area if PAR is 8 or greater or return to pre- procedure baseline. The post - procedure orders will be as directed. * If PAR score is less than 8 or not return to pre-procedure baseline then patient will follow Phase I monitoring till PAR is reached for Phase II. The Phase I may be done in procedure room or may call to secure a Phase I area. * If naloxone or flumazenil are used for reversal, hold in Phase I for continued monitoring from when last reversal dose was given for a minimum of 60 minutes or longer pending the nurse and/or physician discretion of patient condition before discharge to Phase II. Please call the Sedation Physician to re-evaluate and complete post-note for discharge to Phase II area. Do NOT discharge from procedure sedation or Phase 1 until post- sedation evaluation note is complete by procedure /sedation MD Sedation Discharge Instructions to be given to the patient at discharge to home. [facility] [place] Procedure Codes (Charges) Indication for Procedure Indication for procedure: NSTEMI Sedation/Anesthesia Procedure 1: Sedation/Anesthesia: 21858 Mod Sedation by the same physician;Init15 Min Child Age 5 & Up (Initial 15 minutes) Total Sedation Time (minutes): 75 Procedure 2: Sedation/Anesthesia: 85425 Mod Sedation by the same physician; Ea [id number] Minutes (Additional 60 minutes) Total Sedation Time (minutes): 75
[2022-10-10] MEDS ORDERED: ONDANSETRON INJ 2 MG/ML 2 ML VIAL IV PRN (17:47)
[2022-10-10] MEDS ORDERED: POLYETHYLENE (MIRALAX) 17 GM PACK PO PRN (17:47)
--- NOTE | 2022-10-10 18:08 | Cardiac Catheterization ---
[facility] Data: Cna Gna Cardiac Status Clinical evaluation leading to the procedure CAD Presenation: Non STEMI Anginal Classification: CCS IV Heart Failure: No Cardiogenic Shock within 24 Hours: No Cardiac Arrest within 24 Hours: No Coronary Anatomy Dominant: Co-Dominant Left Main (% Stenosis): Normal (Mild) LAD (% Stenosis): Ostial (40 to 50%) and Proximal (50 to 70%) D1 (% Stenosis): Normal Circumflex (% Stenosis): Proximal (Mild) and Mid (100%. ROBIN 0 flow) RCA (% Stenosis): Proximal (Mild diffuse. Prior stent patent with 10% in-stent restenosis), Mid (Diffuse mild) and Distal (Prior stent patent. Mild asa'carsarmiut vessel disease.) R PDA (% Stenosis): Normal Diagnostic Physicians Name: Herb Castellano MD, PhD Closure Device Percutaneous Entry Location: Femoral Closure Device: Angio-Seal Recommendations: PCI without planned CABG PCI Indication: PCI for high risk Non-MATTHEW Lesion Segment Name: Mid circumflex to proximal posterior lateral branch Culprit Artery: Yes Stenosis Prior to Rx (%): 100% Chronic Total Occlusion: No Pre-Procedure ROBIN Flow: 0 Previously Treated Lesion: Yes Lesion Complexity: High/C Lesion Length (mm): 55 mm Thrombus Present: Yes Bifurcation Lesion: Yes Guidewire Across Lesion: Yes Intraprocedure Events Significant Disection: No Perforation: No Cardiac Cath Procedure Full Procedure Date October 10, 2022 Pre-Procedure Diagnosis Pre-Procedure Diagnosis: Non STEMI AUC Score AUC Score: 8 Post-Procedure Diagnosis Post-Procedure Diagnosis: Severe CAD and Successful PCI Procedure(s) Performed Procedure(s) Performed: Coronary Angiography, Drug Eluting Stent and Ultrasound Guided Vascular Access Customer Insight Analyst Herb Castellano MD, PhD Estimated Blood Loss Estimated Blood Loss: 10 mL Medication(s) Medication(s): Adenosine, Fentanyl, Heparin, Integrilin, Lidocaine 1%, Nitroglycerin and Versed Summary of Findings Brief description: Patient was brought to the cardiac catheterization suite where he was shaved and prepped in a sterile fashion. Sedated using IV Versed and fentanyl. Soft tissues of the right groin were anesthetized using 10 mL of 1% Xylocaine. Using the ultrasound for guidance (image saved) the right femoral artery was accessed and a 6 Monegasque femoral artery sheath was placed. All catheters were advanced and exchanged over a 0.035 J-tip wire. Left coronary angiography was performed in orthogonal views with a 6 Monegasque EBU 3.5 guide catheter. Right coronary angiography was performed in orthogonal views with a 5 Monegasque JR4 diagnostic catheter. We next proceeded with PCI. Patient had already received IV heparin. ACT was checked and additional heparin was provided intermittently as needed. A BMW universal guidewire was advanced to the occluded circumflex lesion. It could not pass this lesion. Therefore, a guide liner catheter and a 2.0 mm balloon catheter were advanced to provide backup support. Despite this, we could not pass the lesion with a BMW universal guidewire. Backup support was removed and we instead used a Prowater wire. Again it was advanced to the level of the occlusion but could not pass the occlusion. We again inserted the backup support (guide liner and balloon catheter) and after some time we were eventually successful in advancing the Prowater beyond the origin of the lesion and then distally into the posterolateral branch. Predilatation of the entire previously stented segment was performed with a 2.0 x 12 mm PTCA balloon up to a maximum of 10 licha. The balloon was removed and tin can laborer angiography was performed. We next advanced a 2.5 x 15 mm sprinter noncompliant balloon. Again, beginning distally and ending at the proximal edge of the previously placed stent we predilated beginning at 12 licha distally and 20 licha proximally. The balloon was then removed. There was significant residual thrombus and poor blush distally suggesting microvascular plugging. Patient was given intracoronary adenosine 100 mcg followed by nitroglycerin IC. This significantly improved flow. After discussion with the primary occupational health and safety officer, decision was made to place a stent across the short unstented segment just proximal to the old stent. A patria point 2.5 x 12 mm drug-eluting stent was therefore inserted over the guidewire and deployed at 12 licha. The balloon was then removed and angiography was performed. There was a single stent strut extending into the ostium of the obtuse marginal branch. A final postdilatation was performed in the proximal portion of the stent train using the stent balloon. This was then removed and the guidewire was redirected into the ostium of the OM. Over this a 2.5 x 12 mm trek balloon was advanced and then inflated to crush the single exposed stent strut. The balloon was then deflated and removed. Final angiographic evaluation was performed in orthogonal views. The guide liner, guidewire had been removed with the stent balloon. The guide catheter was then removed after angiography. Patient was started on Integrilin bolus followed by Integrilin drip. Limited right femoral artery angiography was performed to evaluate for closure. Findings were favorable, therefore, the femoral artery sheath was exchanged for a 6 Monegasque Angio-Seal closure device. This was deployed in the recommended fashion. We obtained immediate hemostasis and the patient remained hemodynamically stable. He was returned to the recovery area. This ended the case. Coronary angiography and PCI findings: LMT: Large-caliber vessel bifurcating into the LAD and circumflex. It has mild disease. LAD: Large caliber and transapical. There is ostial disease appearing up to 40 to 50% narrowing. Then in the proximal segment as it approaches the first diagonal there is a focal 50 to 70% stenosis. This appears similar to prior coronary angiography. The diagonal itself has mild luminal irregularities and the mid and distal LAD have no angiographically significant disease. LCx: This is a very large caliber and possibly codominant vessel. Travels in the AV groove where the proximal segment has mild disease. Then, it gives a large caliber trifurcating OM1. This has ostial to proximal mild disease. Immediately after the ostium the mid AV groove circumflex is 100% occluded with ROBIN 0 flow. A long stent train and a smaller bifurcate the stent in the AV groove vessel are seen but did not fill with contrast. The distal posterolateral branch fills late via left to left collateralization. (Prior angiography and PCI from 2020 were reviewed and findings are identical to initial angiography before PCI was performed.). RCA: This is a large vessel and is probably codominant. There is a proximal stent with mild in-stent restenosis of 10%. The mid vessel has diffuse mild disease and then the distal vessel has a stent which is patent but appears to be larger than the luminal diameter of the asa'carsarmiut vessel. The artery then bifurcates into the PDA and posterolateral branches. PDA is large without disease. The posterior lateral branch is small. PCI of circumflex: Predominantly performed as balloon angioplasty with an previously stented segment. There is 0% residual stenosis in the newly stented segment. There is mild residual in-stent restenosis plus or minus small amount of thrombus in the previously stented segment. After angioplasty the branch stent is patent despite no angioplasty being performed within that stent. ROBIN 2-1/2-3 flow post PCI No evidence of dissection or perforation post PCI Most distal portion of the posterolateral branch is occluded but there is no staining. Compared to prior study there remains poor postprocedural myocardial blush. Distal portion of the posterolateral branch is occluded and the distal AV groove circumflex beyond the stented segment also appears to be occluded. Summary: Reocclusion of previously stented circumflex into the posterolateral branch. Successful PCI with the addition of 1 drug-eluting stent proximally and PTCA throughout the previously placed stent train. Angiographically reasonable results. Moderate disease in the LAD is angiographically unchanged from previous. Previously placed RCA stents remain patent. Patient will remain on Integrilin drip for 12 hours. He will remain on aspirin 81 mg daily. His Brilinta will be increased to 90 mg p.o. twice daily. Guideline directed medical therapy we will continue with high intensity statin, beta-shay, plus or minus JOYCE inhibitor/ARB. Note: Given poor myocardial blush on prior study as well as current study in combination with recurrent stent thrombosis I suspect a long-term patency will be limited. There is probably some degree of acute microvascular occlusion from thrombus but also significant myocardial scarring. Hemodynamics Rest Ao:: 129/71 mmHg Final Ao: 134/74 mmHg LV: Not performed Recommendations Recommendations: PCI without planned CABG Radiation Exposure (mGy) 2663 mGy, fluoroscopy time 25.3-minute Contrast (mls) 180 mL Anesthesia 2 mg IV Versed, 50 mcg IV fentanyl Procedural Complication(s) None Disposition Recovery Room\PACU I attest to the content of the Intraoperative Record and any orders documented therein. Any exceptions are noted below. [employer] Card Cath Procedure Codes Cardiac Catheterization Procedure 1: Cardiovascular Cath Procedures: 55727 Coronaries Therapeutic Services & Ancillary Procedure 1: Cardiovascular Tx and Anc Procedures: 62718 Ultrasonic Guidance Vascular Access Moderate Sedation Procedure 1: Sedation/Anesthesia: 08844 Mod Sedation by the same physician;Init15 Min Child Age 5 & Up (Initial 15 minutes (total 75 minutes)) Procedure 2: Sedation/Anesthesia: 71619 Mod Sedation by the same physician; Ea [id number] Minutes (Additional 60 minutes (total 75 minutes)) Stenting Procedure 1: Cardiovascular Stent Procedures: 32580 Perc transluminal revascularization of acute sub/total occl, aMI (LCx) PG Care Time/CCT Total # of Minutes Spent Total Time Spent with Patient: Total time spent is greater than 50% in coordination of care (as documented) at patient's floor/unit and/or counseling patient:
[2022-10-10] MEDS ORDERED: ACETAMINOPHEN 1,000 MG/100 ML VIAL IV PRN (18:30)
[2022-10-10] MEDS ORDERED: DICYCLOMINE HCL 10 MG CAP PO PRN (19:14)
--- NOTE | 2022-10-10 19:51 | Critical Care Consultation ---
Date of Consultation October 10, 2022 Assessment & Plan (1) Non-ST elevation (NSTEMI) myocardial infarction: Impression: 52-year-old male presents to the ICU following cardiac catheterization with PCI to the circumflex artery for reocclusion of previously stented circumflex. Neuro - [facility] ICU: Negative anxiety and depression Continue SSRI Cardiac - NSTEMInow status post successful PCI to the circumflex artery for reoccluded stent -Echo with EF 50 to 55%, inferior, posterior, and inferior septal wall motion abnormality, mild mitral regurg Troponin elevated to 8000, trend for peak Continue Integrilin drip -Continue ASA, Brilinta, MTP, statin -Follow-up EKG in a.m. -Continuous telemetry monitoring Respiratory - Lungs clear to auscultation. Currently maintaining oxygen saturation on room air. Continuous monitoring pulse ox GI - GERDcontinue PPI Recurrent pancreatitislipase within normal limits however patient is complaining of abdominal pain. -CT abdomen pelvis from 10/02 showed minimal inflammatory change heavy heterogeneous pancreatic head suggestive of mild acute or chronic pancreatitis. Stable subcentimeter hypodense focus in the pancreatic head could represent small pseudocyst. -Continue to monitor for now -Repeat lipase in a.m. -Morphine as needed RENAL/LYTES - Monitor routine BMP and replete electrolytes as indicated - Strict I's and O's ENDO - No history of diabetes or thyroid disease. ICU hyperglycemic protocol HEME - H&H stable, monitor routine CBC ID - No indication for infectious process at this time LINES/IV ACCESS - Peripheral IVs DVT PROPHYLAXIS - SCDs Recurrent pancreatitis Thank you for allowing us to participate in the care of this patient. Please refer to my attending physician's documentation for any further recommendations. (2) Recurrent pancreatitis: (3) Tobacco abuse: (4) Abdominal pain: (5) Grade II diastolic dysfunction: (6) Barretts esophagus: (7) HLD (hyperlipidemia): (8) RADHA (generalized anxiety disorder): (9) CAD (coronary artery disease): (10) Depression: (11) GERD (gastroesophageal reflux disease): History of Present Illness Attending Physician: Marco Álvarez MD History of Present Illness Patient is a 52-year-old male with past medical history of chronic pancreatitis CAD, GERD, depression, anxiety, HLD, diastolic heart failure, history of multiple coronary stents. Patient presented to the emergency department earlier today with abdominal discomfort and began to have 8/10 chest pain which improved initially with nitro glycerin but stayed persistent. EKG was without ST elevation but troponin was greater than 6000 and increased to 8000. Echo was performed which showed inferior, posterior, and inferior septal wall abnormality. Patient was started on heparin infusion and was taken to Needle Punch Machine Operator where he received PCI to circumflex with MELLY x1 for reocclusion of prior stent. Patient now admitted to ICU on Integrilin infusion. On arrival to the ICU the patient is alert and oriented and without acute distress. He is hemodynamically stable and maintaining oxygen saturations on room air. He does report persistent abdominal pain and tenderness and radiation nausea and diaphoresis. He denies any current chest pain, or radiating pain or jaw pain. He denies any recent dizziness, headache, changes in vision, fevers, congestion, sore throat, cough, shortness of breath, palpitations, diarrhea, changes in urinary frequency, changes in gait, or swelling in hands or feet. Allergies Allergy/AdvReac Type Severity Reaction Status Date / Time No Known Allergies Allergy Verified 10/10/22 12:18 Home Medications Medication Instructions Recorded Confirmed Type aspirin 81 mg tablet,delayed 81 mg PO QAM 10/06/18 10/10/22 History release sertraline 50 mg tablet (Zoloft) 50 mg PO QAM 10/06/18 10/10/22 History nitroglycerin 0.4 mg sublingual 0.4 mg sublingual UD PRN Chest Pain 10/07/18 10/10/22 History tablet (Nitrostat) dicyclomine 10 mg capsule 10 mg PO BID PRN Abdominal Pain 12/06/20 10/10/22 History ezetimibe 10 mg tablet 10 mg PO QAM 12/06/20 10/10/22 History famotidine 40 mg tablet 40 mg PO HS 12/06/20 10/10/22 History magnesium oxide 400 mg PO QAM 12/06/20 10/10/22 History pantoprazole 40 mg tablet,delayed 40 mg PO QAM 08/20/21 10/10/22 History release metoprolol succinate 25 mg 25 mg PO DAILY 07/27/22 10/10/22 History tablet,extended release 24 hr rosuvastatin 40 mg tablet 40 mg PO DAILY 07/27/22 10/10/22 History ondansetron 4 mg disintegrating 4 mg PO TID PRN Nausea 10/10/22 10/10/22 History tablet ticagrelor 60 mg tablet (Brilinta) 60 mg PO BID 10/10/22 10/10/22 History Patient History Medical History Acute pancreatitis Barretts esophagus CAD (coronary artery disease) 2018-RCA stent x 2 07/2020-STEMI, s/p PCI to left circumflex with 2 MELLY. Post procedure complicated by V. fib arrest requiring defibrillation. 12/2020-NSTEMI s/p 3 Xience MELLY to the distal aspect of prior stent of the left posterior lateral branch vessel COVID-29 Oct 2021 Depression RADHA (generalized anxiety disorder) GERD (gastroesophageal reflux disease) Grade II diastolic dysfunction HLD (hyperlipidemia) Mobitz type 2 second degree atrioventricular block Recurrent pancreatitis Splenic infarct Tobacco abuse Surgical History History of endoscopic retrograde cholangiopancreatography x2 (08/31, 09/30) History of vasectomy Hx laparoscopic cholecystectomy (08/22/21) Laparoscopic Cholecystectomy Dr. Davidson 08/22/2021 Family History Mother Gallbladder disease Sister Gallbladder disease Other Diabetes Stroke Denies family history of Pancreatic disease Social History Smoking Status: Current every day smoker Tobacco Type: Cigarettes Cigarettes Per Day: 1/2 pack; Second Hand Exposure: No; Tobacco Cessation Education Requested by Patient: No Hx Alcohol Use: No Hx Substance Use: No Preferred Language: [place] Communication Ability: Effective Aircraft Worker Required: No Beliefs That Will Affect Care: None marital status: Single Current Living Situation: Alone current occupational status: employed Other Information That Helps Us Care for You: No Feels Safe at Home: Yes Safety Concerns: Feels Safe At This Time Assistive Devices: None Review of Systems Review of Systems: All systems reviewed & are unremarkable except as noted in HPI & below Physical Exam Constitutional: WD/WN, vitals as above Eyes: PERRL, conjunctivae normal, anicteric sclerae ENMT: external ear and nose normal, oropharynx normal Neck: trachea midline, no thyromegaly Respiratory: normal respiratory effort, lungs clear to auscultation Cardiovascular: RRR, no murmur, no edema Heart Sounds: normal S1 and normal S2 Extremities: no edema Gastrointestinal (Abdomen): Abdomen soft, bowel sounds auscultated all 4 quadrants, tender to palpation Musculoskeletal: no cyanosis or clubbing, extremities motor strength 5/5 Skin: no rashes, warm and dry Neurologic: PERRL, EOMI, accommodation nl, no face palsy, no dysarthria Psychiatric: A+Ox3, euthymic affect Results & Data Results & Data ([facility]) Vital Signs (Past 12 Hours) Vital Signs Temp Pulse Pulse Resp BP BP Pulse Ox 10/10/22 18:30 56 L 16 151/108 H 97 10/10/22 18:15 58 L 15 97 10/10/22 18:15 150/96 H 10/10/22 18:00 59 L 14 150/98 H 10/10/22 17:45 49 L 15 159/94 H 97 10/10/22 17:30 49 L 16 155/93 H 97 10/10/22 17:16 71 13 10/10/22 17:09 36.7 C 48 L 20 132/83 97 10/10/22 17:01 10/10/22 14:00 56 L 20 98 10/10/22 14:00 156/79 H 10/10/22 13:42 134/86 10/10/22 13:42 57 L 22 10/10/22 14:00 20 156/79 H 93 10/10/22 13:30 98 H 27 H 144/93 H 96 10/10/22 13:00 67 26 H 100 10/10/22 12:30 83 24 98 10/10/22 12:00 59 L 26 H 99 10/10/22 11:32 71 26 H 99 10/10/22 11:25 98 10/10/22 10:58 36.5 C 81 20 140/93 98 O2 Del Method 10/10/22 18:30 10/10/22 18:15 10/10/22 18:15 10/10/22 18:00 10/10/22 17:45 10/10/22 17:30 10/10/22 17:16 10/10/22 17:09 Room Air 10/10/22 17:01 Room Air 10/10/22 14:00 10/10/22 14:00 10/10/22 13:42 10/10/22 13:42 10/10/22 14:00 Room Air 10/10/22 13:30 10/10/22 13:00 10/10/22 12:30 10/10/22 12:00 10/10/22 11:32 10/10/22 11:25 Room Air 10/10/22 10:58 Room Air Coding Level of Care Code 25272 Inpt Consult Level 3 Diagnoses Non-ST elevation (NSTEMI) myocardial infarction I21.4 Recurrent pancreatitis Tobacco abuse Z72.0 Abdominal pain R10.9 Grade II diastolic dysfunction I51.89 Barretts esophagus K22.70 HLD (hyperlipidemia) E78.5 RADHA (generalized anxiety disorder) F41.1 CAD (coronary artery disease) I25.10 Depression F32.9 GERD (gastroesophageal reflux disease) K21.9
[2022-10-10] MEDS: FAMOTIDINE 40 MG TABLET PO SCH (20:29)
[2022-10-10 20:35] LABS: Partial Thromboplastin Time 54.4 Seconds (21.0-31.0)
[2022-10-10] MEDS ORDERED: MoRPHine SULFATE 2 MG/ML CARP IV PRN (20:47)
[2022-10-11 00:23] LABS: Appearance Urine Clear (Clear); Bacteria Urine Automated Negative (Negative); Bilirubin Urine Negative (Negative); Blood Urine Trace (Negative); Cast Urine Automated 0 /lpf (0-5); Color Urine Orange; Epithelial Cell Urine Auto 0-5 /lpf (0-5); Glucose Urine UA Negative (Negative); Ketones Urine Negative (Negative); Leukocyte Esterase Urine Negative (Negative); Nitrite Urine Negative (Negative); Protein Urine Negative (Negative); RBC Urine Automated 0-4 /hpf (0-4); Specific Gravity Urine > 1.045 (1.000-1.030); Urobilinogen Urine Negative (Negative)
[2022-10-11] MEDS: EPTIFIBATIDE 75 MG/100 ML VIAL IV SCH ×2 (03:48→07:15)
[2022-10-11] MEDS: NITROGLYCERIN 2% OINTMENT 30GM TUBE EXT SCH ×4 (03:54→20:04)
[2022-10-11] MEDS: TICAGRELOR 90 MG TAB PO SCH ×2 (05:02→20:05)
[2022-10-11 05:54] LABS: Hematocrit (blood only) 37.7 % (40.1-51.0); Hemoglobin 13.3 g/dl (14.0-18.0); Mean Corpuscular Hemoglobin 34.2 pg (25.0-34.0); Mean Corpuscular Hgb Conc 35.3 g/dL (32.0-36.0); Mean Corpuscular Volume 96.9 fL (80.0-100.0); Mean Platelet Volume 9.3 fL (9.4-12.4); Platelet Count 239 K/uL (130-400); RDW Standard Deviation 46.5 fL (36.4-46.3); Red Blood Count 3.89 M/uL (4.63-6.08); White Blood Count 6.33 K/ul (4.8-10.8)
[2022-10-11 06:20] LABS: BUN Creatinine Ratio 8.2 (10-20); Calcium 8.6 mg/dl (8.5-10.1); Chol HDL Ratio 4.6 (0-5); Creatinine Clr Calc Pharmacy 69.6 ml/min; Est GFR (African American) 102.9 ml/min; Est GFR (Non-African American) 88.8 ml/min; Potassium 4.2 mmol/L (3.5-5.1)
[2022-10-11 06:25] LABS: Troponin I High Sensitivity 4677.7 pg/ml (0-20)
[2022-10-11] MEDS: EZETIMIBE 10 MG TABLET PO SCH (07:42)
[2022-10-11] MEDS: ASPIRIN 81 MG ECTAB PO SCH (07:42)
[2022-10-11] MEDS: ROSUVASTATIN CALCIUM 20 MG TAB PO SCH (07:42)
[2022-10-11] MEDS: METOPROLOL SUCC 25MG EXT REL TAB PO SCH (07:42)
[2022-10-11] MEDS: PANTOprazole 40 MG TAB PO SCH (07:43)
[2022-10-11] MEDS: SERTRALINE HCL 50 MG TABLET PO SCH (07:43)
[2022-10-11] MEDS: MAGNESIUM OXIDE 400 MG TAB PO SCH (07:43)
--- NOTE | 2022-10-11 09:58 | Electrocardiogram Report ---
Test Reason : Blood Pressure : / mmHG Vent. Rate : 049 BPM Atrial Rate : 049 BPM P-R Int : 114 ms QRS Dur : 084 ms QT Int : 384 ms P-R-T Axes : 073 029 044 degrees QTc Int : 346 ms Poor data quality, interpretation may be adversely affected Sinus bradycardia Possible Inferior infarct (cited on or before 09-AUG-2022) Incomplete right bundle branch block Abnormal ECG When compared with ECG of 10-OCT-2022 11:23, No significant change was found Confirmed by Dariel Parada ([id number]) on 10/11/2022 9:57:30 AM Referred By: REFERRED SELF Confirmed By:Johnny Parada
--- NOTE | 2022-10-11 10:04 | Electrocardiogram Report ---
Test Reason : Blood Pressure : / mmHG Vent. Rate : 052 BPM Atrial Rate : 052 BPM P-R Int : 140 ms QRS Dur : 086 ms QT Int : 410 ms P-R-T Axes : 067 011 -10 degrees QTc Int : 381 ms Sinus bradycardia Possible Inferior infarct (cited on or before 09-AUG-2022) Abnormal ECG When compared with ECG of 10-OCT-2022 12:52, (unconfirmed) T wave inversion now evident in Inferior leads Confirmed by Dariel Parada ([id number]) on 10/11/2022 10:03:55 AM Referred By: REFERRED SELF Confirmed By:Johnny Parada
--- NOTE | 2022-10-11 10:18 | Critical Care Progress Note ---
Date of Service October 11, 2022 Assessment & Plan (1) Non-ST elevation (NSTEMI) myocardial infarction: Plan: Impression: 52-year-old male presents to the ICU following cardiac catheterization with PCI to the circumflex artery for reocclusion of previously stented circumflex. Neuro - [facility] ICU: Negative anxiety and depression Continue SSRI Cardiac - NSTEMInow status post successful PCI to the circumflex artery for reoccluded stent -Echo with EF 50 to 55%, inferior, posterior, and inferior septal wall motion abnormality, mild mitral regurg Troponin elevated to 8000, now downtrending -Continue ASA, Brilinta, MTP, statin -Continuous telemetry monitoring Respiratory - Lungs clear to auscultation. Currently maintaining oxygen saturation on room air. Continuous monitoring pulse ox GI - GERDcontinue PPI Recurrent pancreatitislipase within normal limits however patient is complaining of abdominal pain. -CT abdomen pelvis from 10/02 showed minimal inflammatory change heavy heterogeneous pancreatic head suggestive of mild acute or chronic pancreatitis. Stable subcentimeter hypodense focus in the pancreatic head could represent small pseudocyst. -Continue to monitor for now -Morphine as needed RENAL/LYTES - Monitor routine BMP and replete electrolytes as indicated - Strict I's and O's ENDO - No history of diabetes or thyroid disease. ICU hyperglycemic protocol HEME - H&H stable, monitor routine CBC ID - No indication for infectious process at this time LINES/IV ACCESS - Peripheral IVs DVT PROPHYLAXIS - SCDs Recurrent pancreatitis Patient stable for downgrade out of ICU. Critical care will sign off (2) Recurrent pancreatitis: (3) Tobacco abuse: (4) Abdominal pain: (5) Grade II diastolic dysfunction: (6) Barretts esophagus: (7) HLD (hyperlipidemia): (8) RADHA (generalized anxiety disorder): (9) CAD (coronary artery disease): (10) Depression: (11) GERD (gastroesophageal reflux disease): Admission and Anticipated Discharge Date Admission Date: October 10, 2022 Subjective Patient reports that he feels improved. Is able to differentiate, recognizes different symptoms regarding pancreatitis pain and chest/cardiac pain. Currently pain-free has follow-up with gastroenterology. Review of Systems Review of Systems: As per the HPI Physical Exam Physical Exam: General: Alert. nontoxic. Skin: Warm, dry, Head: Atraumatic Ears, nose, mouth and throat: airway patent Cardiovascular: Normal peripheral perfusion Respiratory: no respiratory distress Gastrointestinal: Non distended Musculoskeletal: No deformity Results & Data Results & Data ([facility]) Vital Signs (Past 12 Hours) Vital Signs Temp Pulse Pulse Resp BP BP Pulse Ox 10/11/22 08:00 64 20 98 10/11/22 08:00 122/73 10/11/22 07:47 77 21 98 10/11/22 07:47 121/67 10/11/22 07:30 75 19 98 10/11/22 07:30 122/83 10/11/22 07:15 64 16 97 10/11/22 07:15 128/82 10/11/22 07:00 75 16 10/11/22 06:45 56 L 18 96 10/11/22 06:45 132/87 10/11/22 06:30 130/87 10/11/22 06:30 54 L 17 96 10/11/22 06:15 130/91 10/11/22 06:15 55 L 21 97 10/11/22 06:00 59 L 14 97 10/11/22 06:00 135/95 10/11/22 08:00 10/11/22 08:00 36.8 C 64 20 122/73 97 10/11/22 08:00 62 10/11/22 07:12 36.8 C 10/11/22 05:45 128/94 10/11/22 05:45 57 L 17 96 10/11/22 05:15 53 L 18 97 10/11/22 05:15 142/82 H 10/11/22 05:00 51 L 14 10/11/22 04:30 131/92 10/11/22 04:30 53 L 14 96 10/11/22 04:00 57 L 18 93 10/11/22 04:00 133/83 10/11/22 03:15 49 L 11 L 96 10/11/22 03:15 139/86 10/11/22 03:00 49 L 13 96 10/11/22 03:00 138/87 10/11/22 02:15 149/87 H 10/11/22 02:15 59 L 11 L 98 10/11/22 02:00 52 L 14 96 10/11/22 02:00 148/89 H 10/11/22 01:15 51 L 16 97 10/11/22 01:15 139/86 10/11/22 01:00 64 20 96 10/11/22 01:00 127/87 10/11/22 05:00 36.8 C 10/11/22 00:00 36.8 C 10/11/22 00:30 133/90 10/11/22 00:30 48 L 13 10/11/22 00:00 51 L 10 L 96 10/10/22 23:45 52 L 17 95 10/10/22 23:45 135/83 10/10/22 23:57 50 L 10/10/22 23:00 64 14 97 10/10/22 23:00 138/94 10/10/22 22:45 54 L 17 96 10/10/22 22:45 143/90 H O2 Del Method 10/11/22 08:00 10/11/22 08:00 10/11/22 07:47 10/11/22 07:47 10/11/22 07:30 10/11/22 07:30 10/11/22 07:15 10/11/22 07:15 10/11/22 07:00 10/11/22 06:45 10/11/22 06:45 10/11/22 06:30 10/11/22 06:30 10/11/22 06:15 10/11/22 06:15 10/11/22 06:00 10/11/22 06:00 10/11/22 08:00 Room Air 10/11/22 08:00 Room Air 10/11/22 08:00 10/11/22 07:12 10/11/22 05:45 10/11/22 05:45 10/11/22 05:15 10/11/22 05:15 10/11/22 05:00 10/11/22 04:30 10/11/22 04:30 10/11/22 04:00 10/11/22 04:00 10/11/22 03:15 10/11/22 03:15 10/11/22 03:00 10/11/22 03:00 10/11/22 02:15 10/11/22 02:15 10/11/22 02:00 10/11/22 02:00 10/11/22 01:15 10/11/22 01:15 10/11/22 01:00 10/11/22 01:00 10/11/22 05:00 10/11/22 00:00 10/11/22 00:30 10/11/22 00:30 10/11/22 00:00 10/10/22 23:45 10/10/22 23:45 10/10/22 23:57 10/10/22 23:00 10/10/22 23:00 10/10/22 22:45 10/10/22 22:45 Critical Care Results & Data Vital Signs (Past 12 Hours) Vital Signs Temp Pulse Pulse Resp BP BP Pulse Ox 10/11/22 08:00 64 20 98 10/11/22 08:00 122/73 10/11/22 07:47 77 21 98 10/11/22 07:47 121/67 10/11/22 07:30 75 19 98 10/11/22 07:30 122/83 10/11/22 07:15 64 16 97 10/11/22 07:15 128/82 10/11/22 07:00 75 16 10/11/22 06:45 56 L 18 96 10/11/22 06:45 132/87 10/11/22 06:30 130/87 10/11/22 06:30 54 L 17 96 10/11/22 06:15 130/91 10/11/22 06:15 55 L 21 97 10/11/22 06:00 59 L 14 97 10/11/22 06:00 135/95 10/11/22 08:00 10/11/22 08:00 36.8 C 64 20 122/73 97 10/11/22 08:00 62 10/11/22 07:12 36.8 C 10/11/22 05:45 128/94 10/11/22 05:45 57 L 17 96 10/11/22 05:15 53 L 18 97 10/11/22 05:15 142/82 H 10/11/22 05:00 51 L 14 10/11/22 04:30 131/92 10/11/22 04:30 53 L 14 96 10/11/22 04:00 57 L 18 93 10/11/22 04:00 133/83 10/11/22 03:15 49 L 11 L 96 10/11/22 03:15 139/86 10/11/22 03:00 49 L 13 96 10/11/22 03:00 138/87 10/11/22 02:15 149/87 H 10/11/22 02:15 59 L 11 L 98 10/11/22 02:00 52 L 14 96 10/11/22 02:00 148/89 H 10/11/22 01:15 51 L 16 97 10/11/22 01:15 139/86 10/11/22 01:00 64 20 96 10/11/22 01:00 127/87 10/11/22 05:00 36.8 C 10/11/22 00:00 36.8 C 10/11/22 00:30 133/90 10/11/22 00:30 48 L 13 10/11/22 00:00 51 L 10 L 96 10/10/22 23:45 52 L 17 95 10/10/22 23:45 135/83 10/10/22 23:57 50 L 10/10/22 23:00 64 14 97 10/10/22 23:00 138/94 10/10/22 22:45 54 L 17 96 10/10/22 22:45 143/90 H O2 Del Method 10/11/22 08:00 10/11/22 08:00 10/11/22 07:47 10/11/22 07:47 10/11/22 07:30 10/11/22 07:30 10/11/22 07:15 10/11/22 07:15 10/11/22 07:00 10/11/22 06:45 10/11/22 06:45 10/11/22 06:30 10/11/22 06:30 10/11/22 06:15 10/11/22 06:15 10/11/22 06:00 10/11/22 06:00 10/11/22 08:00 Room Air 10/11/22 08:00 Room Air 10/11/22 08:00 10/11/22 07:12 10/11/22 05:45 10/11/22 05:45 10/11/22 05:15 10/11/22 05:15 10/11/22 05:00 10/11/22 04:30 10/11/22 04:30 10/11/22 04:00 10/11/22 04:00 10/11/22 03:15 10/11/22 03:15 10/11/22 03:00 10/11/22 03:00 10/11/22 02:15 10/11/22 02:15 10/11/22 02:00 10/11/22 02:00 10/11/22 01:15 10/11/22 01:15 10/11/22 01:00 10/11/22 01:00 10/11/22 05:00 10/11/22 00:00 10/11/22 00:30 10/11/22 00:30 10/11/22 00:00 10/10/22 23:45 10/10/22 23:45 10/10/22 23:57 10/10/22 23:00 10/10/22 23:00 10/10/22 22:45 10/10/22 22:45 Lab & Micro Results (Past 24 Hours) RBC 3.89 M/uL (4.63-6.08) L 10/11/22 WBC 6.33 K/ul (4.8-10.8) 10/11/22 Hgb 13.3 g/dl (14.0-18.0) L 10/11/22 Hct 37.7 % (40.1-51.0) L 10/11/22 MCV 96.9 fL (80.0-100.0) 10/11/22 MCH 34.2 pg (25.0-34.0) H 10/11/22 MCHC 35.3 g/dL (32.0-36.0) 10/11/22 RDW Standard Deviation 46.5 fL (36.4-46.3) H 10/11/22 RDW Coefficient of Variation 13.0 % (11.5-14.5) 10/11/22 Plt Count 239 K/uL (130-400) 10/11/22 MPV 9.3 fL (9.4-12.4) L 10/11/22 Neutrophils (%) (Auto) 60.9 % 10/10/22 Lymphocytes (%) (Auto) 28.4 % 10/10/22 Monocytes # (Auto) 0.54 K/uL (0.24-0.82) 10/10/22 Eosinophils # (Auto) 0.17 K/uL (0-0.50) 10/10/22 Immature Granulocyte % (Auto) 0.1 % 10/10/22 Neutrophils # (Auto) 4.60 K/uL (1.4-6.5) 10/10/22 Lymphocytes # (Auto) 2.14 K/uL (1.2-3.4) 10/10/22 Monocytes # (Auto) 0.54 K/uL (0.24-0.82) 10/10/22 Eosinophils # (Auto) 0.17 K/uL (0-0.50) 10/10/22 Basophils # (Auto) 0.08 K/uL (0-0.2) 10/10/22 Immature Granulocyte # (Auto) 0.01 K/uL (0.00-0.02) 2 2 Na 137 mmol/L (136-145) 10/11/22 K 4.2 mmol/L (3.5-5.1) 10/11/22 Cl 106 mmol/L (98-107) 10/11/22 CO2 27 mmol/L (21-32) 10/11/22 Anion Gap 4 (3-11) 10/11/22 BUN 8 mg/dl (6-23) 10/11/22 Creatinine 0.97 mg/dl (0.6-1.4) 10/11/22 Estimated GFR ( Amer) 102.9 ml/min 10/11/22 Estimated GFR (Non-Af Amer) 88.8 ml/min 10/11/22 BUN/Creatinine Ratio 8.2 (10-20) L 10/11/22 Glu 93 mg/dl (70-99(Fasting)) 10/11/22 Ca 8.6 mg/dl (8.5-10.1) 10/11/22 Total Bilirubin 0.7 mg/dl (0.2-1.0) 10/10/22 AST 37 U/L (13-39) 10/10/22 ALT 16 U/L (7-52) 10/10/22 Alkaline Phosphatase 64 U/L (34-104) 10/10/22 TP 6.9 gm/dl (6.0-8.3) 10/10/22 Albumin 4.1 gm/dl (3.4-5.0) 10/10/22 Globulin 2.8 gm/dl (2.5-4.0) 10/10/22 Albumin/Globulin Ratio 1.5 (0.9-2) 10/10/22 Calcium Level 8.6 mg/dl (8.5-10.1) 10/11/22 05:30 Prothromb Time International Ratio 1.0 (0.9-1.1) 10/10/22 13:1 9 Diagnostic Findings (Past 24 Hours) Chest X-Ray 10/10/22 11:25 XR chest 1V portable CLINICAL HISTORY: Epigastric pain. COMPARISON STUDY: Chest radiograph October 02, 2022. FINDINGS: Lung volumes are normal. Lungs are clear. There is no pneumothorax or pleural effusion. Cardiac size is normal. Mediastinal contours are normal. There is no evidence for pulmonary edema. IMPRESSION: No acute cardiopulmonary findings. ACT 112: Negative or not required by law. Electronically signed by: Urban Eastman M.D. 10/10/2022 12:23 PM I & O Totals 24 Hours 10/10/22 10/11/22 10/12/22 06:59 06:59 06:59 Intake Total 674.865 / 674.865 0 / 0 Output Total 550 / 550 300 / 300 Balance 124.865 / 124.865 -300 / -300 Cumulative 10/10/22 10:35 thru 10/11/22 07:16 Intake Total 674.865 Output Total 850 Balance -175.135 RT Ventilator Mngmt (Last Documented) Ventilator Ordered Settings Respiratory Rate 20 10/11/22 08:00 Ventilator - PT Measurements Respiratory Rate 20 Coding Level of Care Code 31033 Subseq Hosp Care Lvl 2 Diagnoses Non-ST elevation (NSTEMI) myocardial infarction I21.4 Recurrent pancreatitis Tobacco abuse Z72.0 Abdominal pain R10.9 Grade II diastolic dysfunction I51.89 Barretts esophagus K22.70 HLD (hyperlipidemia) E78.5 RADHA (generalized anxiety disorder) F41.1 CAD (coronary artery disease) I25.10 Depression F32.9 GERD (gastroesophageal reflux disease) K21.9
[2022-10-11 11:31] LABS: Estimated Average Glucose 114 mg/dl; Hemoglobin A1C 5.6 % (4.5-5.6)
--- NOTE | 2022-10-11 12:34 | Cardiology Progress Note ---
Date of Service October 11, 2022 Assessment & Plan (1) Non-ST elevation (NSTEMI) myocardial infarction: (2) Hematoma: (3) CAD (coronary artery disease): (4) Tobacco abuse: Plan 52-year-old patient presents with NSTEMI. Presenting symptoms predominantly included abdominal/epigastric discomfort. Cardiac catheterization revealing acutely occluded circumflex. Intervention performed as noted in separate documentation. Recommend Brilinta 90 mg twice daily long-term without interr uption in addition to low-dose aspirin. Manual pressure personally held at bedside for 15 minutes with an additional 10 minutes per nursing. Hematoma reduced. Femoral pulse palpable without residual swelling. Recommend additional 5 hours of bedrest. Continue current other cardiovascular medications including statin therapy, and beta-shay. Smoking cessation strongly advised. Admission and Anticipated Discharge Date Admission Date: October 10, 2022 Subjective Patient seen and examined in bedside chair. Notes right groin discomfort. Patient transition from chair to bed for further examination. There is a large right groin hematoma. Dressing removed and manual pressure held. Patient denies chest pain or abdominal discomfort today. IV Integrilin discontinued overnight. Brilinta titrated to 90 mg twice daily. Aside from groin discomfort, offers no other concerns/complaints. Review of Systems Review of Systems: All systems reviewed & are unremarkable except as noted in Subjective Physical Exam Constitutional: + acute distress, + ill appearing and + thin Respiratory: no respiratory distress, no labored breathing and no retractions Auscultation: no crackles, no rales, no rhonchi and no wheezes Cardiovascular: Rate/Rhythm: regular rate and regular rhythm Heart Sounds: normal S1 and normal S2 Vessels: femoral pulses present; no JVD and no carotid bruit Extremities: + edema (Large right groin hematoma) Gastrointestinal (Abdomen): Inspection/Auscultation: normal bowel sounds; abdomen not distended Percussion/Palpation: abdomen soft; abdomen nontender, no guarding and abdomen not rigid Neurologic: CN's II-XI intact bilaterally and moves all extremities; no focal motor deficits Psychiatric: A+Ox3, euthymic affect Results & Data ([facility]) Vital Signs (Past 12 Hours) Vital Signs Temp Pulse Pulse Resp BP BP Pulse Ox 10/11/22 08:00 64 20 98 10/11/22 08:00 122/73 10/11/22 07:47 77 21 98 10/11/22 07:47 121/67 01/01/23 07:30 75 19 98 10/11/22 07:30 122/83 10/11/22 07:15 64 16 97 10/11/22 07:15 128/82 10/11/22 07:00 75 16 10/11/22 06:45 56 L 18 96 10/11/22 06:45 132/87 10/11/22 06:30 130/87 10/11/22 06:30 54 L 17 96 10/11/22 06:15 130/91 10/11/22 06:15 55 L 21 97 10/11/22 06:00 59 L 14 97 10/11/22 06:00 135/95 10/11/22 08:00 10/11/22 08:00 36.8 C 64 20 122/73 97 10/11/22 08:00 62 10/11/22 07:12 36.8 C 10/11/22 05:45 128/94 10/11/22 05:45 57 L 17 96 10/11/22 05:15 53 L 18 97 10/11/22 05:15 142/82 H 10/11/22 05:00 51 L 14 10/11/22 04:30 131/92 10/11/22 04:30 53 L 14 96 10/11/22 04:00 57 L 18 93 10/11/22 04:00 133/83 10/11/22 03:15 49 L 11 L 96 10/11/22 03:15 139/86 10/11/22 03:00 49 L 13 96 10/11/22 03:00 138/87 10/11/22 02:15 149/87 H 10/11/22 02:15 59 L 11 L 98 10/11/22 02:00 52 L 14 96 10/11/22 02:00 148/89 H 10/11/22 01:15 51 L 16 97 10/11/22 01:15 139/86 10/11/22 01:00 64 20 96 10/11/22 01:00 127/87 10/11/22 05:00 36.8 C 10/11/22 00:30 133/90 10/11/22 00:30 48 L 13 O2 Del Method 10/11/22 08:00 10/11/22 08:00 10/11/22 07:47 10/11/22 07:47 10/11/22 07:30 10/11/22 07:30 10/11/22 07:15 10/11/22 07:15 10/11/22 07:00 10/11/22 06:45 10/11/22 06:45 10/11/22 06:30 10/11/22 06:30 10/11/22 06:15 10/11/22 06:15 10/11/22 06:00 10/11/22 06:00 10/11/22 08:00 Room Air 10/11/22 08:00 Room Air 10/11/22 08:00 10/11/22 07:12 10/11/22 05:45 10/11/22 05:45 10/11/22 05:15 10/11/22 05:15 10/11/22 05:00 10/11/22 04:30 10/11/22 04:30 10/11/22 04:00 10/11/22 04:00 10/11/22 03:15 10/11/22 03:15 10/11/22 03:00 10/11/22 03:00 10/11/22 02:15 10/11/22 02:15 10/11/22 02:00 10/11/22 02:00 10/11/22 01:15 10/11/22 01:15 10/11/22 01:00 10/11/22 01:00 10/11/22 05:00 10/11/22 00:30 10/11/22 00:30
--- NOTE | 2022-10-11 14:29 | Hospitalist Progress Note ---
Date of Service October 11, 2022 Assessment & Plan (1) Non-ST elevation (NSTEMI) myocardial infarction: (2) Recurrent pancreatitis: (3) CAD (coronary artery disease): (4) RADHA (generalized anxiety disorder): (5) Depression: (6) GERD (gastroesophageal reflux disease): (7) HLD (hyperlipidemia): Plan per admitting service notes with addendum: This is a 52yo M with a PMH of recurrent pancreatitis, CAD, Casanova's esophagus, GERD, ongoing tobacco use, generalized anxiety disorder and other medical problems listed below who presents with epigastric discomfort and chest pain and was found to have an NSTEMI. NSTEMI H/o CAD Tobacco use Worsening epigastric pain and development of chest pain this morning CP improved with ntg but still present / Initial HS troponin 6,300 -> 8,164. ECG without acute ST elevation Complex cardiac history with recent intervention in [address] Whittaker, who evaluated patient in ED Bedside 2D echo in ED with inferior, posterior, and inferoseptal wall motion abnormality Patient now undergoing cardiac catheterization with Dr. Castellano Continue current cardiovascular medications including aspirin, Brilinta, statin therapy, and beta-shay 10/10 s/p PCI: Reocclusion of previously stented circumflex into the posterolateral branch. Successful PCI with the addition of 1 drug-eluting stent proximally and PTCA throughout the previously placed stent train. Angiographically reasonable results. Moderate disease in the LAD is angiographically unchanged from previous. Previously placed RCA stents remain patent. 10/11/22 per [facility] notes: Cardiac catheterization revealing acutely occluded circumflex. Recommend Brilinta 90 mg twice daily long-term without interruption in addition to low-dose aspirin. chest pain free troponin trending down monitor hematoma RADHA Depression Continue Zoloft GERD Continue PPI HLD Continue statin DVT Ppx: hold for now in light of hematoma Code status: FULL PCP: Nasirterbeverly Dispo: pending anticipate d/c home when medically stable Admission and Anticipated Discharge Date Admission Date: October 10, 2022 Subjective Follow-up for NSTEMI etc. Noted to have right groin hematoma Controlled with external pressure application Seen resting with sleeping but easily awakened, in good spirits, comfortable States he feels better overall No recurrence of chest pain, abdominal pain No shortness of breath, palpitations, dizziness No other symptoms Review of Systems Review of Systems: all noted and negative except for above Physical Exam Physical Exam: General- oriented x 3, not in distress, speaks in sentences with no effort or accessory muscle use Eyes- anicteric Neck- no JVD Lungs- clear BS bilaterally, no rales/wheezes Heart- normal rate, regular rhythm; no murmurs Abdomen- normal bowel sounds, nondistended, soft, nontender R groin- area of hematoma noted, soft, nontender about 4 in diameter Extremities- no pretibial edema, no calf tenderness Neuro- alert, oriented x 3; no gross focal neurologic deficits Skin- warm & dry Results & Data Results & Data ([facility]) Vital Signs (Past 12 Hours) Vital Signs Temp Pulse Pulse Resp BP BP Pulse Ox 10/11/22 12:45 60 21 96 10/11/22 12:45 108/71 10/11/22 12:30 62 22 114/78 96 10/11/22 12:30 124/81 10/11/22 12:15 53 L 27 H 130/89 97 10/11/22 12:15 120/74 10/11/22 12:14 60 24 98 10/11/22 12:14 125/79 10/11/22 12:00 54 L 31 H 98 10/11/22 12:00 130/85 10/11/22 11:00 54 L 17 99 10/11/22 11:00 117/77 10/11/22 10:51 62 17 97 10/11/22 10:51 114/81 10/11/22 10:00 54 L 18 95 10/11/22 09:00 59 L 17 96 10/11/22 09:00 116/78 10/11/22 08:00 64 20 98 10/11/22 08:00 122/73 10/11/22 07:47 77 21 98 10/11/22 07:47 121/67 10/11/22 07:30 75 19 98 10/11/22 07:30 122/83 10/11/22 07:15 64 16 97 10/11/22 07:15 128/82 10/11/22 07:00 75 16 10/11/22 06:45 56 L 18 96 10/11/22 06:45 132/87 10/11/22 06:30 130/87 10/11/22 06:30 54 L 17 96 10/11/22 06:15 130/91 10/11/22 06:15 55 L 21 97 10/11/22 06:00 59 L 14 97 10/11/22 06:00 135/95 10/11/22 08:00 10/11/22 08:00 36.8 C 64 20 122/73 97 10/11/22 08:00 62 10/11/22 07:12 36.8 C 10/11/22 05:45 128/94 10/11/22 05:45 57 L 17 96 10/11/22 05:15 53 L 18 97 10/11/22 05:15 142/82 H 10/11/22 05:00 51 L 14 10/11/22 04:30 131/92 10/11/22 04:30 53 L 14 96 10/11/22 04:00 57 L 18 93 10/11/22 04:00 133/83 10/11/22 03:15 49 L 11 L 96 10/11/22 03:15 139/86 10/11/22 03:00 49 L 13 96 10/11/22 03:00 138/87 10/11/22 05:00 36.8 C O2 Del Method 10/11/22 12:45 10/11/22 12:45 10/11/22 12:30 10/11/22 12:30 10/11/22 12:15 10/11/22 12:15 10/11/22 12:14 10/11/22 12:14 10/11/22 12:00 10/11/22 12:00 10/11/22 11:00 10/11/22 11:00 10/11/22 10:51 10/11/22 10:51 10/11/22 10:00 10/11/22 09:00 10/11/22 09:00 10/11/22 08:00 10/11/22 08:00 10/11/22 07:47 10/11/22 07:47 10/11/22 07:30 10/11/22 07:30 10/11/22 07:15 10/11/22 07:15 10/11/22 07:00 10/11/22 06:45 10/11/22 06:45 10/11/22 06:30 10/11/22 06:30 10/11/22 06:15 10/11/22 06:15 10/11/22 06:00 10/11/22 06:00 10/11/22 08:00 Room Air 10/11/22 08:00 Room Air 10/11/22 08:00 10/11/22 07:12 10/11/22 05:45 10/11/22 05:45 10/11/22 05:15 10/11/22 05:15 10/11/22 05:00 10/11/22 04:30 10/11/22 04:30 10/11/22 04:00 10/11/22 04:00 10/11/22 03:15 10/11/22 03:15 10/11/22 03:00 10/11/22 03:00 10/11/22 05:00 all noted and reviewed including below
[2022-10-11] MEDS: FAMOTIDINE 40 MG TABLET PO SCH (20:06)
[2022-10-11] MEDS: ACETAMINOPHEN 325 MG TAB PO PRN (20:10)
[2022-10-12] MEDS: NITROGLYCERIN 2% OINTMENT 30GM TUBE EXT SCH (02:54)
[2022-10-12] MEDS: ACETAMINOPHEN 325 MG TAB PO PRN (02:54)
[2022-10-12 05:17] LABS: Basophils # (auto) 0.06 K/uL (0-0.2); Eosinophils # (auto) 0.22 K/uL (0-0.50); Eosinophils % (auto) 3.8 %; Hematocrit (blood only) 35.4 % (40.1-51.0); Hemoglobin 12.2 g/dl (14.0-18.0); Immature Granulocytes # (auto) 0.02 K/uL (0.00-0.02); Immature Granulocytes % (auto) 0.3 %; Lymphocytes # (auto) 1.69 K/uL (1.2-3.4); Lymphocytes % (auto) 29.1 %; Mean Corpuscular Hemoglobin 33.9 pg (25.0-34.0); Mean Corpuscular Hgb Conc 34.5 g/dL (32.0-36.0); Mean Corpuscular Volume 98.3 fL (80.0-100.0); Mean Platelet Volume 9.1 fL (9.4-12.4); Monocytes # (auto) 0.43 K/uL (0.24-0.82); Monocytes % (auto) 7.4 %; Neutrophils # (auto) 3.38 K/uL (1.4-6.5); Neutrophils % (auto) 58.4 %; Platelet Count 211 K/uL (130-400); RDW Coefficient of Variation 13.1 % (11.5-14.5); RDW Standard Deviation 46.8 fL (36.4-46.3)
[2022-10-12 05:35] LABS: BUN Creatinine Ratio 12.6 (10-20); Calcium 8.5 mg/dl (8.5-10.1); Creatinine Clr Calc Pharmacy 59.3 ml/min; Est GFR (African American) 87.4 ml/min; Est GFR (Non-African American) 75.4 ml/min; Potassium 4.4 mmol/L (3.5-5.1)
[2022-10-12] MEDS ORDERED: LIDOCAINE 1% LOCAL 20 ML VIAL ONE (07:09)
[2022-10-12] MEDS: TICAGRELOR 90 MG TAB PO SCH (08:13)
[2022-10-12] MEDS: METOPROLOL SUCC 25MG EXT REL TAB PO SCH (08:14)
[2022-10-12] MEDS: EZETIMIBE 10 MG TABLET PO SCH (08:14)
[2022-10-12] MEDS: ASPIRIN 81 MG ECTAB PO SCH (08:14)
[2022-10-12] MEDS: SERTRALINE HCL 50 MG TABLET PO SCH (08:14)
[2022-10-12] MEDS: PANTOprazole 40 MG TAB PO SCH (08:14)
[2022-10-12] MEDS: ROSUVASTATIN CALCIUM 20 MG TAB PO SCH (08:14)
[2022-10-12] MEDS: MAGNESIUM OXIDE 400 MG TAB PO SCH (08:14)
--- NOTE | 2022-10-12 08:17 | Critical Care Progress Note ---
Date of Service October 12, 2022 Assessment & Plan (1) Hematoma: (2) Tobacco abuse: (3) Recurrent pancreatitis: (4) Non-ST elevation (NSTEMI) myocardial infarction: (5) Abdominal pain: (6) HLD (hyperlipidemia): (7) CAD (coronary artery disease): (8) GERD (gastroesophageal reflux disease): Plan Impression: 52-year-old male presents to the ICU following cardiac catheterization with PCI to the circumflex artery for reocclusion of previously stented circumflex. Neuro - [facility]: Negative anxiety and depression Continue SSRI Cardiac - NSTEMInow status post successful PCI to the circumflex artery for re-occluded stent -Echo with EF 50 to 55%, inferior, posterior, and inferior septal wall motion abnormality, mild mitral regurg -Continue ASA, Brilinta, beta-shay, statin -Continuous telemetry monitoring Respiratory - Lungs clear to auscultation. Currently maintaining oxygen saturation on room air. Continuous monitoring pulse ox --Current smoker Importance of quitting explained the patient in depth GI - GERDcontinue PPI Recurrent pancreatitislipase within normal limits however patient is complaining of abdominal pain. -CT abdomen pelvis from 10/02 showed minimal inflammatory change heavy heterogeneous pancreatic head suggestive of mild acute or chronic pancreatitis. Stable subcentimeter hypodense focus in the pancreatic head could represent small pseudocyst. -Continue to monitor for now RENAL/LYTES - Monitor routine BMP and replete electrolytes as indicated - Strict I's and O's ENDO - Continue with ICU hyperglycemic protocol HEME - --Right groin hematoma H&H is stable Has reduced, continue to monitor ID - No indication for infectious process at this time --Prophylaxis VTE: None GI: Pantoprazole Lines: Peripheral Diet: Cardiac Plan: In/out: -260, urine output 2350 Continue with dual antiplatelet therapy. H&H is stable. Right groin swelling has decreased. Patient hemodynamically stable to be downgraded. Will discontinue the Nitropatch Please note the above document was generated using voice recognition software. It may contain grammatical, syntax or spelling errors.Any formal questions or concerns about the content, text or information contained within the body of this dictation should be directly addressed to the provider for clarification. Admission and Anticipated Discharge Date Admission Date: October 10, 2022 Subjective Patient seen and examined at bedside. No acute distress, no adverse events overnight. Denies any chest pain, no shortness of breath No nausea vomiting Fair appetite. No headache The right-sided groin swelling has gone down. Does complain of mild tenderness on palpation to the right groin Review of Systems Review of Systems: All systems reviewed & are unremarkable except as noted in Subjective Physical Exam Physical Exam: Constitutional: No acute distress HEENT: EOMI, PERRLA Respiratory system: Decreased air entry bilaterally, no wheeze, no rhonchi, no crackles CVS: S1-S2 positive, no murmurs or gallops Abdomen: Soft, nontender, nondistended, positive bowel sounds x4 Extremities: +2 pulses bilaterally radialis/ dorsalis pedis, no cyanosis, no edema, right groin minimal swelling which is tender to touch Neuro: Awake alert oriented x3 Psych: Normal mood and affect G/U: No Busby Skin: no rashes, warm and dry Lymphatic: no cervical or axillary lymphadenopathy Results & Data Results & Data ([facility]) Vital Signs (Past 12 Hours) Vital Signs Temp Pulse Resp BP Pulse Ox 10/12/22 05:00 84 14 98 10/12/22 05:00 120/81 10/12/22 04:00 49 L 15 97 10/12/22 04:00 36.7 C 108/80 10/12/22 03:00 68 24 98 10/12/22 02:00 55 L 18 96 10/12/22 02:00 115/71 10/12/22 01:00 53 L 17 96 10/12/22 01:00 112/74 10/12/22 00:00 59 L 20 97 10/12/22 00:00 121/82 10/11/22 23:00 76 18 96 10/11/22 23:00 36.5 C 120/67 10/11/22 22:00 59 L 19 97 10/11/22 22:00 112/73 10/11/22 21:00 61 20 98 10/11/22 21:00 132/83 10/11/22 23:27 56 L Laboratory Results 10/12/22 05:09 10/12/22 05:09 Coding Level of Care Code 16430 Subseq Hosp Care Lvl 2 Diagnoses Hematoma T14.8XXA Tobacco abuse Z72.0 Recurrent pancreatitis Non-ST elevation (NSTEMI) myocardial infarction I21.4 Abdominal pain R10.9 HLD (hyperlipidemia) E78.5 CAD (coronary artery disease) I25.10 GERD (gastroesophageal reflux disease) K21.9
--- NOTE | 2022-10-12 10:25 | Cardiology Progress Note ---
Date of Service October 12, 2022 Assessment & Plan (1) Non-ST elevation (NSTEMI) myocardial infarction: (2) Hematoma: (3) CAD (coronary artery disease): (4) Tobacco abuse: Plan 52-year-old patient presents with NSTEMI. Presenting symptoms predominantly included abdominal/epigastric discomfort. Cardiac catheterization revealing acutely occluded circumflex. Intervention performed as noted in separate documentation. Recommend Brilinta 90 mg twice daily long-term without interr uption in addition to low-dose aspirin. Right groin hematoma has resolved with manual pressure and FemoStop 10/11/2022. Continue current other cardiovascular medications including statin therapy, and beta-shay. Smoking cessation strongly advised. Post cardiac catheterization activity restrictions listed below. Outpatient cardiology follow-up in 1-2 weeks. ACTIVITY RECOMMENDATIONS: It is common to feel weak and fatigue for a few days. * Do not drive or operate any motorized equipment for the next three days. * Limit stair usage (2 or 3 trips a day only) for the next three days. * Do not lift anything heavier than 10 pounds for the next three days. * Do not engage in vigorous exercise or any sports for the next five days. * You may shower the day after your procedure, but do not immerse the area for three days. Cleanse the site gently with soap and water. SPECIAL CARE INSTRUCTIONS: * You may replace the pressure dressing or band-aid the morning after the procedure. * After your procedure, it is normal to have a small bruise or small lump at the site. Examine your site daily for any change in the bruise or lump, redness, swelling, drainage or numbness. Notify your doctor if any change. BLEEDING: * If there is a small amount of bleeding at the site, lie down and apply firm pressure with a clean cloth for ten minutes. When the bleeding stops, lie quietly keeping the procedure limb straight for six hours. Notify your doctor as soon as possible. * If the bleeding does not stop after ten minutes or if there is a large amount of bleeding or spurting, call 911 immediately. Continue to lie down and hold firm pressure until help arrives. SKIN IRRITATION: * You may experience some redness and/or swelling in the area where radiation was administered. If any skin irritation occurs, please contact your family physician. FOLLOW UP VISIT: Keep any scheduled doctor appointments. Admission and Anticipated Discharge Date Admission Date: October 10, 2022 Subjective Patient seen examined the bedside. Feeling better this morning. Previously groin discomfort has improved. No recurrent hematoma overnight. Tolerating current medications. No dysrhythmias on telemetry. Offers no new concerns/complaints. Review of Systems Review of Systems: All systems reviewed & are unremarkable except as noted in Subjective Physical Exam Constitutional: + acute distress, + ill appearing and + thin Respiratory: no respiratory distress, no labored breathing and no retractions Auscultation: no crackles, no rales, no rhonchi and no wheezes Cardiovascular: Rate/Rhythm: regular rate and regular rhythm Heart Sounds: normal S1 and normal S2 Vessels: femoral pulses present; no JVD and no carotid bruit Extremities: no edema (Mild right groin ecchymosis.) Gastrointestinal (Abdomen): Inspection/Auscultation: normal bowel sounds; abdomen not distended Percussion/Palpation: abdomen soft; abdomen nontender, no guarding and abdomen not rigid Neurologic: CN's II-XI intact bilaterally and moves all extremities; no focal motor deficits Psychiatric: A+Ox3, euthymic affect Results & Data ([facility]) Vital Signs (Past 12 Hours) Vital Signs Temp Pulse Resp BP Pulse Ox 10/12/22 10:04 93/59 L 10/12/22 10:04 63 19 99 10/12/22 10:00 59 L 22 98 10/12/22 09:00 63 23 98 10/12/22 09:00 102/70 10/12/22 08:02 83 14 10/12/22 07:00 57 L 15 97 10/12/22 07:00 106/75 10/12/22 06:45 47 L 14 97 10/12/22 08:00 84 10/12/22 05:00 84 14 98 10/12/22 05:00 120/81 10/12/22 04:00 49 L 15 97 10/12/22 04:00 36.7 C 108/80 10/12/22 03:00 68 24 98 10/12/22 02:00 55 L 18 96 10/12/22 02:00 115/71 10/12/22 01:00 53 L 17 96 10/12/22 01:00 112/74 10/12/22 00:00 59 L 20 97 10/12/22 00:00 121/82 01/01/23 23:00 76 18 96 10/11/22 23:00 36.5 C 120/67 10/11/22 23:27 56 L
[2022-10-12] MEDS ORDERED: SODIUM CHLORIDE 0.9% 1000ML 1,000 ML IV SCH (14:00)
--- NOTE | 2022-10-12 15:29 | Hospitalist Progress Note ---
Date of Service October 12, 2022 Assessment & Plan (1) Non-ST elevation (NSTEMI) myocardial infarction: (2) Recurrent pancreatitis: (3) CAD (coronary artery disease): (4) RADHA (generalized anxiety disorder): (5) Depression: (6) GERD (gastroesophageal reflux disease): (7) HLD (hyperlipidemia): Plan per admitting service notes with addendum: This is a 52yo M with a PMH of recurrent pancreatitis, CAD, Casanova's esophagus, GERD, ongoing tobacco use, generalized anxiety disorder and other medical problems listed below who presents with epigastric discomfort and chest pain and was found to have an NSTEMI. NSTEMI H/o CAD Tobacco use Worsening epigastric pain and development of chest pain this morning CP improved with ntg but still present 12/18 Initial HS troponin 6,300 -> 8,164. ECG without acute ST elevation Complex cardiac history with recent intervention in 2020 Bedside 2D echo in ED with inferior, posterior, and inferoseptal wall motion abnormality 10/10 s/p PCI: Reocclusion of previously stented circumflex into the posterolateral branch. Successful PCI with the addition of 1 drug-eluting stent proximally and PTCA throughout the previously placed stent train. Angiographically reasonable results. Moderate disease in the LAD is angiographically unchanged from previous. Previously placed RCA stents remain patent. Cardiology recommendations: Cardiac catheterization revealing acutely occluded circumflex. Recommend increase Brilinta from 60 mg, to 90 mg twice daily long-term without interruption in addition to low-dose aspirin. chest pain free since admission troponin trending down Right inguinal hematoma resolved Continue other usual cardiac medications Follow-up with audio tape librarian in 2 to 3 weeks next RADHA Depression Continue Zoloft GERD Continue PPI HLD Continue statin Discharge to home Follow-up with PCP in 1 week plan of care discussed with patient in detail and at length all questions answered he is understanding, agreeable, comfortable with the plan of care Admission and Anticipated Discharge Date Admission Date: October 10, 2022 Subjective Follow-up for non-ST elevation PA, etc. Seen resting in bed side chair, comfortable, not in distress Good spirits States he feels much better overall No recurrence of chest pain, shortness of breath, palpitations, dizziness Ambulating in the room with no problems Right inguinal pain resolved No bleeding No other symptoms States he is ready for discharge today Review of Systems Review of Systems: all noted and negative except for above Physical Exam Physical Exam: General- oriented x 3, not in distress, speaks in sentences with no effort or accessory muscle use Eyes- anicteric Neck- no JVD Lungs- clear breath sounds bilaterally, no rales/wheezes Heart- normal rate, regular rhythm; no murmurs Abdomen- normal bowel sounds, nondistended, soft, nontender Right inguinal area-minimal edema, no tenderness, no active bleeding Extremities- no pretibial edema, no calf tenderness Neuro- alert, oriented x 3; no gross focal neurologic deficits Skin- warm & dry Results & Data Results & Data ([facility]) Vital Signs (Past 12 Hours) Vital Signs Temp Pulse Resp BP Pulse Ox 10/12/22 15:12 67 10/12/22 15:00 67 20 98 10/12/22 15:00 96/62 L 10/12/22 14:00 59 L 22 98 10/12/22 14:00 101/64 10/12/22 13:00 61 21 100 10/12/22 13:00 106/69 10/12/22 12:00 61 16 95 10/12/22 12:00 110/74 10/12/22 11:00 59 L 16 100 10/12/22 11:00 86/57 L 10/12/22 11:02 63 10/12/22 10:04 93/59 L 10/12/22 10:04 63 19 99 10/12/22 10:00 59 L 22 98 10/12/22 09:00 63 23 98 10/12/22 09:00 102/70 10/12/22 08:02 83 14 10/12/22 07:00 57 L 15 97 10/12/22 07:00 106/75 10/12/22 06:45 47 L 14 97 10/12/22 08:00 84 10/12/22 05:00 84 14 98 10/12/22 05:00 120/81 10/12/22 04:00 49 L 15 97 10/12/22 04:00 36.7 C 108/80 all noted and reviewed including below
--- NOTE | 2022-10-12 15:39 | Discharge Summary ---
Discharge Summary Date of Service October 12, 2022 Notes For Next Care Provider Brilinta increased from 60 mg, now 90 mg twice a day Medication Changes From Visit Brilinta increased from 60 mg, now 90 mg twice a day Admission HPI Per Admitting Provider This is a 52yo M with a PMH of recurrent pancreatitis, CAD, Casanova's esophagus, GERD, ongoing tobacco use, generalized anxiety disorder and other medical problems listed below who presents with epigastric discomfort and chest pain. [place] his pancreatitis had flared up and also having some chest pain with associated nausea and diaphoresis. 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 Symptoms resolved with rest but did occur a couple times. Was able to go home and sleep but woke up with worsened epigastric pain he rated 8/10 that was wrapping around to his back on the left side. Does have baseline epigastric discomfort due to recurrent pancreatitis but states that is more of a 2/10 pain that has been present since he was admitted last week for pancreatitis (discharged home on 10/04). Upon presentation here, pain expanded to chest area to but states that improved with nitroglycerin and is now down to a 3/10. Denies that pain radiating to her arms or up to jaw. Nausea and diaphoresis have resolved. Vomiting x 1 in ER. No recent illness. No fever, chills, headache, palpitations, shortness of breath, dysuria, diarrhea or constipation. Still smoking approximately a 1/2 ppd. Significant cardiac history including MELLY in 2017, 2019 and 2020. Taking aspirin, Brilinta, statin and beta shay as prescribed. Admission Exam Per Admitting Provider General Appearance:WD/WN, vitals as above, NAD, lying in bed, anxious, conversing easily Head: normocephalic, atraumatic Eyes:normal inspection, PERRL, conjunctivae normal, anicteric sclerae ENT: external ear and nose normal, oropharynx normal Neck: normal visual inspection, trachea midline, no thyromegaly Respiratory:normal respiratory effort, lungs clear to auscultation, no wheeze, rales, rhonchi. No accessory muscle use Cardiovascular: regular rate, rhythm, no murmur, normal peripheral pulses, no BLE edema. Vessels: no JVD Chest: normal inspection of chest Abdomen/GI: normal bowel sounds, soft, + epigastric pain, non-distended, no hepatosplenomegaly Extremities/Musculoskeletal: no cyanosis or clubbing, extremities motor strength 5/5 Neurologic: PERRL, EOMI, accommodation nl, no face palsy, no dysarthria, CN's II-XI intact bilaterally and moves all extremities Psychiatric:A+Ox3, euthymic affect Skin: no rashes, normal color, warm/dry Principal Dx & Hospital Course #1 = Principal Diagnosis (1) Non-ST elevation (NSTEMI) myocardial infarction: (2) Recurrent pancreatitis: (3) CAD (coronary artery disease): (4) RADHA (generalized anxiety disorder): (5) Depression: (6) GERD (gastroesophageal reflux disease): (7) HLD (hyperlipidemia): Plan per admitting service notes with addendum: This is a 52yo M with a PMH of recurrent pancreatitis, CAD, Casanova's esophagus, GERD, ongoing tobacco use, generalized anxiety disorder and other medical problems listed below who presents with epigastric discomfort and chest pain and was found to have an NSTEMI. NSTEMI H/o CAD Tobacco use Worsening epigastric pain and development of chest pain this morning CP improved with ntg but still present 12/18 Initial HS troponin 6,300 -> 8,164. ECG without acute ST elevation Complex cardiac history with recent intervention in 2020 Bedside 2D echo in ED with inferior, posterior, and inferoseptal wall motion abnormality 10/10 s/p PCI: Reocclusion of previously stented circumflex into the posterolateral branch. Successful PCI with the addition of 1 drug-eluting stent proximally and PTCA throughout the previously placed stent train. Angiographically reasonable results. Moderate disease in the LAD is angiographically unchanged from previous. Previously placed RCA stents remain patent. Cardiology recommendations: Cardiac catheterization revealing acutely occluded circumflex. Recommend increase Brilinta from 60 mg, to 90 mg twice daily long-term without interruption in addition to low-dose aspirin. chest pain free since admission troponin trending down Right inguinal hematoma resolved Continue other usual cardiac medications Follow-up with traffic superintendent in 2 to 3 weeks next RADHA Depression Continue Zoloft GERD Continue PPI HLD Continue statin Discharge to home Follow-up with PCP in 1 week plan of care discussed with patient in detail and at length all questions answered he is understanding, agreeable, comfortable with the plan of care Discharge Exam General- oriented x 3, not in distress, speaks in sentences with no effort or accessory muscle use Eyes- anicteric Neck- no JVD Lungs- clear breath sounds bilaterally, no rales/wheezes Heart- normal rate, regular rhythm; no murmurs Abdomen- normal bowel sounds, nondistended, soft, nontender Right inguinal area-minimal edema, no tenderness, no active bleeding Extremities- no pretibial edema, no calf tenderness Neuro- alert, oriented x 3; no gross focal neurologic deficits Skin- warm & dry Updated Medication List Medication Instructions Recorded Confirmed Type aspirin 81 mg tablet,delayed 81 mg PO QAM 10/06/18 10/10/22 History release sertraline 50 mg tablet (Zoloft) 50 mg PO QAM 10/06/18 10/10/22 History nitroglycerin 0.4 mg sublingual 0.4 mg sublingual UD PRN Chest Pain 10/07/18 10/10/22 History tablet (Nitrostat) dicyclomine 10 mg capsule 10 mg PO BID PRN Abdominal Pain 12/06/20 10/10/22 History ezetimibe 10 mg tablet 10 mg PO QAM 12/06/20 10/10/22 History famotidine 40 mg tablet 40 mg PO HS 12/06/20 10/10/22 History magnesium oxide 400 mg PO QAM 12/06/20 10/10/22 History pantoprazole 40 mg tablet,delayed 40 mg PO QAM 08/20/21 10/10/22 History release metoprolol succinate 25 mg 25 mg PO DAILY 07/27/22 10/10/22 History tablet,extended release 24 hr rosuvastatin 40 mg tablet 40 mg PO DAILY 07/27/22 10/10/22 History ondansetron 4 mg disintegrating 4 mg PO TID PRN Nausea 10/10/22 10/10/22 History tablet ticagrelor 60 mg tablet (Brilinta) 60 mg PO BID 10/10/22 10/10/22 History ticagrelor 90 mg tablet (Brilinta) 90 mg PO BID 30 days #60 tabs 10/12/22 Rx Hospital Stay Data Consultations 10/10/22 13:47 ED Decision to Admit Stat 10/10/22 13:58 Consult Cardiology Routine 10/10/22 17:23 Consult Internal Medicine Routine 10/10/22 19:25 Consult Polymerization Engineer Routine Procedures Performed Operation Date: 10/10/22 15:30 Actual Procedures s Cineradiography w/Routine Exam - Herb Castellano MD, PhD s Ultrasound Vascular Access - Herb Castellano MD, PhD p Aspiration/PCI w/MELLY for Stemi - Herb Castellano MD, PhD s Placement Art Occlusive Device - Herb Castellano MD, PhD p Cath, Coronaries ONLY (no LV) - Herb Castellano MD, PhD Diagnostic Imagining Performed 10/10/22 15:30 CL Cath Imgs for PACS use only Stat Pending Results Patient Have Any Pending Studies at Discharge: No Discharge Instructions Given to Patient (Per Discharging Provider) PLEASE REFER TO YOUR NEW MEDICATION LIST AND FOLLOW INSTRUCTIONS CAREFULLY. YOUR NEW MEDICATIONS INCLUDE: Increase Brilinta to 90 mg twice daily Drink plenty of water and maintain adequate hydration daily. Always take your medications daily. PLEASE CALL YOUR PRIMARY CARE PHYSICIAN OR RETURN TO THE ER IF WITH WORSENING OF SYMPTOMS, INCLUDING Chest pain, shortness of breath, palpitations, dizziness, weakness, etc. FOLLOW UP WITH PRIMARY CARE PHYSICIAN in 1 week. Follow-up with [facility] traffic superintendent Dr. Whittaker in 2 to 3 weeks. Total Time Total Time Spent Total Time Spent (In Minutes): >30 minutes
== END 2022-10-12 16:10 | disposition home or self-care (01) | DRG 246 ==
LOC: ED 10:35 → CC 15:42 → 1E 15:42
PROC: CLB.CCO (2022-10-10 15:30)

== ENCOUNTER 2023-02-08 15:54 | Observation (INO) ==
--- NOTE | 2023-02-08 16:09 | ED Triage Note ---
Date of Service February 08, 2023 History of Present Illness This patient was briefly evaluated while in triage. An abbreviated physical exam was performed. This patient is a 52-year-old Male who presents to the ED for evaluation of chest pain. Has had upper abdominal discomfort for the past couple weeks. [place] with chest pain that woke him up at 3:30 am. The symptoms are intermittent, but getting progressively worse. Has had 4 MIs in the past and has 8 stents. He is on Brilinta and ASA. 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 No nausea or vomiting. Has had diarrhea with the abdominal discomfort. No fevers, cough, or URI symptoms. Physical Exam GENERAL: Non-toxic and in no acute distress. HEENT: Pupils equal. No obvious scleral icterus. HEART: Regular rate and rhythm. LUNGS: Clear to auscultation. No accessory muscle use. ABDOMEN: Soft. Minimal tenderness in the epigastric area. NEURO: Alert and oriented. No obvious neurological deficits on quick neuro exam. Initial orders for labs and / or imaging were placed and patient was taken back to a room once available. Please see further documentation for the full ED course.
--- NOTE | 2023-02-08 16:25 | XRay Report ---
XR chest 1V portable HISTORY: 52 years-old Male Chest pain, nonspecific COMPARISON: 10/10/2022 TECHNIQUE: AP view of the chest FINDINGS: Cardiomediastinal and hilar silhouettes are within normal limits. No pneumothorax, pleural effusion, airspace consolidation or pulmonary edema. Bones of the chest appear grossly intact. IMPRESSION: No acute process. ACT 112: Negative or not required by law. The above report was generated using voice recognition software. It may contain grammatical, syntax o r spelling errors. Electronically signed by: Stef Jones M.D. 02/08/2023 4:24 PM
[2023-02-08] MEDS ORDERED: SODIUM CHLORIDE 0.9% 1000ML 1,000 ML IV ONE (16:34)
[2023-02-08] MEDS ORDERED: ASPIRIN CHEW 324 MG PO STA (16:35)
--- NOTE | 2023-02-08 16:36 | Emergency Department Note ---
Impression & Plan Chest pain ADMIT ED Provider Note HPI: The patient is a 52-year-old gentleman who presents emergency department with a chief complaint of chest pain. Patient states that he has had the chest pain on and off for about the past week. He also states he has had some recurrent issues with abdominal pain has been more constant nature during this time. Patient states he does have a history of chronic pancreatitis. On arrival here to the ED the patient is alert, he is in no acute distress on my initial assessment. States he has about 3 out of 10 chest pain. ROS: - Per HPI *Outpatient medications and allergy history reviewed. *Pertinent external medical records reviewed. PE: General: Alert HEENT: Normocephalic, trachea midline Eyes: Extraocular eye movement is intact, no scleral erythema Pulmonary: Clear to auscultation bilaterally, no wheezing Cardio: Regular rate and rhythm GI: Abdomen is soft to palpation : No suprapubic tenderness MSK: No evidence of trauma or malformation of the extremities, no edema Skin: No evidence of rash Neuro: Alert, no focal deficits Psychiatric: Cooperative court monitor: (As interpreted by myself): - An order was placed for continuous cardiac monitoring - Patient was noted to be in sinus rhythm with a rate of 55 EKG: (As interpreted by myself): Rate: 44 Rhythm: Sinus bradycardia Intervals: Within normal limits ST changes: No ST elevation Time: 1614 Interventions provided in ED: -Aspirin Differential Diagnosis: Acute coronary syndrome, pulmonary embolism, acute on chronic pancreatitis, acute cholecystitis, acute gastritis, pneumothorax, pericarditis, musculoskeletal chest discomfort, acute esophagitis, amongst other potential pathologies. Medical Decision Making: Patient presented to the emergency department the chief complaint of chest pain. He states that this been ongoing for about the past week. States it has been "on and off". Patient states it is not exertional in nature. On arrival here to the ED the patient is in no acute distress. 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 Lab work shows no leukocytosis, hemoglobin is stable at 15.2, platelet count is within normal limits, CMP was obtained and shows no critical electrolyte abnormalities, AST slightly elevated 40 and ALT of 58. Bilirubin is normal. Troponin is negative at 9.0. Lipase is also within normal limits. CT imaging of the abdomen pelvis does not show any evidence of acute pancreatitis or acute surgical abnormalities. COVID-19 screening test is negative. Chest x-ray does not show any evidence of acute pathology. Patient's EKG does not show any significant change from previous. On my reassessment he states he continues to have some 3 out of 10 chest discomfort but declines analgesia. Given the patient's history of coronary artery disease status post multiple stents I do feel that he would benefit from admission for trending of troponin levels and cardiology consultation. 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 Given all of the above I did discuss the case with the on-call hospitalist, Dr. Singh, and the patient was placed for admission in stable condition. Consultants: Hospitalist service, Dr. Singh Disposition discussion held by myself with: Patient Diagnosis: 1. Chest pain, acute, nonspecific 2. History of coronary artery disease status post multiple stents 3. Abdominal pain, acute on chronic Disposition: Admission Deep Martinez DO Emergency Medicine Past Med/Surg History Medical History Acute pancreatitis Barretts esophagus CAD (coronary artery disease) 2017-RCA stent x 2 07/2020-STEMI, s/p PCI to left circumflex with 2 MELLY. Post procedure complicated by V. fib arrest requiring defibrillation. 12/2020-NSTEMI s/p 3 Xience MELLY to the distal aspect of prior stent of the left posterior lateral branch vessel COVID-29 Oct 2021 Depression RADHA (generalized anxiety disorder) GERD (gastroesophageal reflux disease) Grade II diastolic dysfunction HLD (hyperlipidemia) Mobitz type 2 second degree atrioventricular block Recurrent pancreatitis Splenic infarct Tobacco abuse Surgical History History of endoscopic retrograde cholangiopancreatography x2 (08/31, 09/30) History of vasectomy Hx laparoscopic cholecystectomy (08/22/21) Laparoscopic Cholecystectomy Dr. 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 Beliefs That Will Affect Care: None marital status: Single Current Living Situation: Alone current occupational status: employed Feels Safe at Home: Yes Assistive Devices: None Allergies Allergies Allergy/AdvReac Type Severity Reaction Status Date / Time No Known Allergies Allergy Verified 02/08/23 17:45 Home Meds Home Medications Medication Instructions Recorded Confirmed aspirin 81 mg tablet,delayed 81 mg PO QAM 10/06/18 02/08/23 release sertraline 50 mg tablet (Zoloft) 50 mg PO QAM 10/06/18 02/08/23 nitroglycerin 0.4 mg sublingual 0.4 mg sublingual UD PRN Chest Pain 10/07/18 02/08/23 tablet (Nitrostat) dicyclomine 10 mg capsule 10 mg PO BID PRN Abdominal Pain 12/06/20 02/08/23 ezetimibe 10 mg tablet 10 mg PO QAM 12/06/20 02/08/23 famotidine 40 mg tablet 40 mg PO HS 12/06/20 02/08/23 magnesium oxide 400 mg PO QAM 12/06/20 02/08/23 pantoprazole 40 mg tablet,delayed 40 mg PO QAM 08/20/21 02/08/23 release metoprolol succinate 25 mg 25 mg PO DAILY 07/27/22 02/08/23 tablet,extended release 24 hr rosuvastatin 40 mg tablet 40 mg PO DAILY 07/27/22 02/08/23 Previous Rx's Medication Instructions Recorded ticagrelor 90 mg tablet (Brilinta) 90 mg PO BID 30 days #60 tabs 10/12/22 Results & Data (ED) Vital Signs Vital Signs - 24 hr 02/08/23 16:06 02/08/23 16:24 02/08/23 16:29 Temperature 36.7 C Temperature Source Temporal Artery Scan Pulse Rate 55 L 54 L 52 L Pulse Rate from SpO2 Sensor Respiratory Rate 16 Respiratory Effort / Characteristics Non-Labored Respiratory Depth Normal Blood Pressure 160/83 H Blood Pressure Mean 108 Pulse Oximetry 98 97 Oxygen Delivery Method Room Air Room Air Sepsis Recent Fever Within 48 Hours No Sepsis New/Unexplained Change in Mental Status No Sepsis Action Taken by Nursing No Action Required 02/08/23 16:17 02/08/23 16:30 02/08/23 16:30 Temperature Temperature Source Pulse Rate 53 L 62 Pulse Rate from SpO2 Sensor 55 L 59 L Respiratory Rate 19 18 Respiratory Effort / Characteristics Respiratory Depth Blood Pressure 147/86 H 147/86 H Blood Pressure Mean 106 106 Pulse Oximetry 98 98 Oxygen Delivery Method Sepsis Recent Fever Within 48 Hours Sepsis New/Unexplained Change in Mental Status Sepsis Action Taken by Nursing 02/08/23 17:00 02/08/23 17:00 02/08/23 17:30 Temperature Temperature Source Pulse Rate 45 L Pulse Rate from SpO2 Sensor 46 L Respiratory Rate 20 Respiratory Effort / Characteristics Respiratory Depth Blood Pressure 145/88 H 147/95 H Blood Pressure Mean 107 112 Pulse Oximetry 99 Oxygen Delivery Method Sepsis Recent Fever Within 48 Hours Sepsis New/Unexplained Change in Mental Status Sepsis Action Taken by Nursing 02/08/23 17:30 02/08/23 18:04 02/08/23 18:06 Temperature Temperature Source Pulse Rate 48 L 87 54 L Pulse Rate from SpO2 Sensor 48 L 57 L Respiratory Rate 17 24 20 Respiratory Effort / Characteristics Respiratory Depth Blood Pressure 140/82 Blood Pressure Mean 101 Pulse Oximetry 98 99 Oxygen Delivery Method Sepsis Recent Fever Within 48 Hours Sepsis New/Unexplained Change in Mental Status Sepsis Action Taken by Nursing 02/08/23 18:30 02/08/23 19:00 02/08/23 19:00 Temperature Temperature Source Pulse Rate 52 L 60 Pulse Rate from SpO2 Sensor 55 L 59 L Respiratory Rate 22 22 Respiratory Effort / Characteristics Respiratory Depth Blood Pressure 147/90 H 141/89 H Blood Pressure Mean 109 106 Pulse Oximetry 99 98 Oxygen Delivery Method Sepsis Recent Fever Within 48 Hours Sepsis New/Unexplained Change in Mental Status Sepsis Action Taken by Nursing Laboratory Data 02/08/23 16:16 02/08/23 16:16 Lab Results 02/08/23 02/08/23 02/08/23 Range/Units 16:16 16:16 16:16 WBC 7.44 (4.8-10.8) K/ul RBC 4.54 L (4.70-6.10) M/uL Hgb 15.2 (14.0-18.0) g/dl Hct 43.5 (42.0-52.0) % MCV 95.8 (80.0-100.0) fL MCH 33.5 (25.0-34.0) pg MCHC 34.9 (32.0-36.0) g/dL RDW Std Deviation 47.7 H (36.4-46.3) fL RDW Coeff of [place] 13.4 (11.5-14.5) % Plt Count 219 (130-400) K/uL MPV 8.9 L (9.4-12.4) fL Immature Gran % (Auto) 0.1 % Neut % (Auto) 57.6 % Lymph % (Auto) 32.7 % [place] % (Auto) 6.5 % Eos % (Auto) 2.2 % Baso % (Auto) 0.9 % Neut # (Auto) 4.29 (1.40-6.50) K/uL Lymph # (Auto) 2.43 (1.2-3.4) K/uL [place] # (Auto) 0.48 (0.11-0.59) K/uL Eos # (Auto) 0.16 (0-0.50) K/uL Baso # (Auto) 0.07 (0-0.2) K/uL Immature Gran # (Auto) 0.01 (0.01-0.20) K/uL PT 10.4 (9.0-12.0) Seconds INR 0.9 (0.9-1.1) APTT 27.7 (21.0-31.0) Seconds PTT Ratio 1.0 Sodium 136 (136-145) mmol/L Potassium 3.9 (3.5-5.1) mmol/L Chloride 102 (98-107) mmol/L Carbon Dioxide 26 (21-32) mmol/L Anion Gap 8 (3-11) BUN 14 (6-23) mg/dl Creatinine 1.20 (0.6-1.4) mg/dl Est Cr Clr Drug Dosing Not Reportable Est GFR ( Amer) 79.5 ml/min Est GFR (Non-Af Amer) 68.6 ml/min BUN/Creatinine Ratio 11.7 (10-20) Glucose 122 H (70-99(Fasting)) mg/dl Calcium 9.2 (8.6-10.3) mg/dl Total Bilirubin 0.4 (0.2-1.0) mg/dl AST 40 H (13-39) U/L ALT 58 H (7-52) U/L Alkaline Phosphatase 61 (34-104) U/L Troponin I High Sens 9.0 (0-20) pg/ml Total Protein 7.3 (6.0-8.3) gm/dl Albumin 4.8 (3.4-5.0) gm/dl Globulin 2.5 (2.5-4.0) gm/dl Albumin/Globulin Ratio 1.9 (0.9-2) Lipase 23 (11-82) U/L Urine Color Urine Appearance (Clear) Urine pH (4.5-7.5) Ur Specific [place] (1.000-1.030) Urine Protein (Negative) Urine Glucose (UA) (Negative) Urine Ketones (Negative) Urine Blood (Negative) Urine Nitrite (Negative) Urine Bilirubin (Negative) Urine Urobilinogen (Negative) Ur Leukocyte Esterase (Negative) SARS-CoV-2, RNA, NAAT (NEGATIVE) 02/08/23 02/08/23 Range/Units 16:26 18:06 WBC (4.8-10.8) K/ul RBC (4.70-6.10) M/uL Hgb (14.0-18.0) g/dl Hct (42.0-52.0) % MCV (80.0-100.0) fL MCH (25.0-34.0) pg MCHC (32.0-36.0) g/dL RDW Std Deviation (36.4-46.3) fL RDW Coeff of Mckin[place] (11.5-14.5) % Plt Count (130-400) K/uL MPV (9.4-12.4) fL Immature Gran % (Auto) % Neut % (Auto) % Lymph % (Auto) % [place] % (Auto) % Eos % (Auto) % Baso % (Auto) % Neut # (Auto) (1.40-6.50) K/uL Lymph # (Auto) (1.2-3.4) K/uL [place] # (Auto) (0.11-0.59) K/uL Eos # (Auto) (0-0.50) K/uL Baso # (Auto) (0-0.2) K/uL Immature Gran # (Auto) (0.01-0.20) K/uL PT (9.0-12.0) Seconds INR (0.9-1.1) APTT (21.0-31.0) Seconds PTT Ratio Sodium (136-145) mmol/L Potassium (3.5-5.1) mmol/L Chloride (98-107) mmol/L Carbon Dioxide (21-32) mmol/L Anion Gap (3-11) BUN (6-23) mg/dl Creatinine (0.6-1.4) mg/dl Est Cr Clr Drug Dosing Est GFR ( Amer) ml/min Est GFR (Non-Af Amer) ml/min BUN/Creatinine Ratio (10-20) Glucose (70-99(Fasting)) mg/dl Calcium (8.6-10.3) mg/dl Total Bilirubin (0.2-1.0) mg/dl AST (13-39) U/L ALT (7-52) U/L Alkaline Phosphatase (34-104) U/L Troponin I High Sens (0-20) pg/ml Total Protein (6.0-8.3) gm/dl Albumin (3.4-5.0) gm/dl Globulin (2.5-4.0) gm/dl Albumin/Globulin Ratio (0.9-2) Lipase (11-82) U/L Urine Color Yellow Urine Appearance Clear (Clear) Urine pH 5.5 (4.5-7.5) Ur Specific [place] 1.012 (1.000-1.030) Urine Protein Negative (Negative) Urine Glucose (UA) Negative (Negative) Urine Ketones Negative (Negative) Urine Blood Negative (Negative) Urine Nitrite Negative (Negative) Urine Bilirubin Negative (Negative) Urine Urobilinogen Negative (Negative) Ur Leukocyte Esterase Negative (Negative) SARS-CoV-2, RNA, NAAT NEGATIVE (NEGATIVE) Administered Medications Discontinued Medications Aspirin (Aspirin Chew 324 Mg) 324 mg PO NOW STA Stop: 02/08/23 16:36 Last Admin: 02/08/23 16:39 Dose: 324 mg Documented By: CHERELLE Sodium Chloride (Nss 1000ml) 1,000 mls @ 999 mls/hr IV .Q1H1M ONE Stop: 02/08/23 17:34 Last Infusion: 02/08/23 17:52 Dose: 0 mls/hr Documented By: Admin: 02/08/23 16:39 Dose: 999 mls/hr Documented By: CHERELLE Ioversol (Optiray 320 100ml) 88 ml IV ONCE ONE Stop: 02/08/23 17:58 Last Admin: 02/08/23 18:02 Dose: 88 ml Documented By: TYRONE Imaging Data Radiologist's Impression: Chest X-Ray 02/08/23 16:09 XR chest 1V portable HISTORY: 52 years-old Male Chest pain, nonspecific COMPARISON: 10/10/2022 TECHNIQUE: AP view of the chest FINDINGS: Cardiomediastinal and hilar silhouettes are within normal limits. No pneumoth orax, pleural effusion, airspace consolidation or pulmonary edema. Bones of the chest appear grossly intact. IMPRESSION: No acute process. ACT 112: Negative or not required by law. The above report was generated using voice recognition software. It may contain grammatical, syntax or spelling errors. Electronically signed by: Stef Jones M.D. 02/08/2023 4:24 PM Abdomen/Pelvis CT 02/08/23 16:[address] WITH IV CONTRAST CT DOSE: 266.22 mGy.cm HISTORY: Acute epigastric abdominal pain epigastric pain TECHNIQUE: Multiaxial CT images of the abdomen and pelvis were performed following the IV administration of 88 cc of Optiray, A dose lowering technique was utilized adhering to the principles of ALARA. COMPARISON STUDY: 10/02/2022 FINDINGS: Cardiomegaly with coronary artery calcifications. Clear lung bases. No pneumatosis or pneumoperitoneum. Unremarkable spleen, and adrenal glands. Cholecystectomy. Mild biliary ductal dilation is likely postsurgical. Probable cysts of the left hepatic lobe, 6 mm. Patent portal vein. Moderately short. Pancreas. Coarse calcifications of the pancreatic head and uncinate process again noted. No evidence of acute pancreatitis. 1.5 cm cyst of the interpolar right kidney. No urolith or hydronephrosis. Circumferential urinary bladder wall thickening. Mild prostatomegaly. Atherosclerosis of the aorta with ectasia measuring up to 2.2 x 2.2 cm. No lymphadenopathy identified. Mild nonspecific distal esophageal wall thickening. No bowel obstruction or bowel wall thickening. The appendix contains hyperdense material within its distal lumen however appears to be noninflamed. Scattered small bowel air-fluid levels are likely physiologic. Unremarkable soft tissues. No acute fracture. Transitional lumbosacral anatomy. IMPRESSION: 1. No acute intra-abdominal or intrapelvic abnormality identified. 2. Evidence of chronic pancreatitis. 3. Prostamegaly with evidence of chronic bladder outlet obstruction. 4. Additional findings as above. ACT 112: Negative or not required by law. The above report was generated using voice recognition software. It may contain grammatical, syntax or spelling errors. Electronically signed by: Stef Jones M.D. 02/08/2023 6:39 PM Discharge Plan Visit Data Chief Complaint: Chest Pain Stated Complaint: CHEST PAINS,STOMACH PAIN,COLD SWEATS ED Provider: Deep Martinez Discharge Problem: Chest pain Forms Stand Alone Forms: [facility] [employer] Cig[employer] Prescriptions Prescriptions: No Action aspirin 81 mg tablet,delayed release (DR/EC) 81 mg PO QAM sertraline [Zoloft] 50 mg tablet 50 mg PO QAM nitroglycerin [Nitrostat] 0.4 mg tablet, sublingual 0.4 mg Sublingual UD PRN (Reason: Chest Pain) famotidine 40 mg tablet 40 mg PO HS dicyclomine 10 mg capsule 10 mg PO BID PRN (Reason: Abdominal Pain) ezetimibe 10 mg tablet 10 mg PO QAM magnesium oxide 400 mg magnesium Tablet 400 mg PO QAM pantoprazole 40 mg tablet,delayed release (DR/EC) 40 mg PO QAM rosuvastatin 40 mg Tablet 40 mg PO DAILY metoprolol succinate 25 mg Tablet Extended Release 24 Hr 25 mg PO DAILY Brilinta 90 mg Tablet 90 mg PO BID 30 Days Qty: 60 2RF Referrals Referrals: Wade Bragg MD [Primary Care Provider] -
[2023-02-08 16:45] LABS: Basophils # (auto) 0.07 K/uL (0-0.2); Basophils % (auto) 0.9 %; Eosinophils # (auto) 0.16 K/uL (0-0.50); Eosinophils % (auto) 2.2 %; Hematocrit (blood only) 43.5 % (42.0-52.0); Hemoglobin 15.2 g/dl (14.0-18.0); Immature Granulocytes # (auto) 0.01 K/uL (0.01-0.20); Immature Granulocytes % (auto) 0.1 %; Lymphocytes # (auto) 2.43 K/uL (1.2-3.4); Lymphocytes % (auto) 32.7 %; Mean Corpuscular Hemoglobin 33.5 pg (25.0-34.0); Mean Corpuscular Hgb Conc 34.9 g/dL (32.0-36.0); Mean Corpuscular Volume 95.8 fL (80.0-100.0); Mean Platelet Volume 8.9 fL (9.4-12.4); Monocytes # (auto) 0.48 K/uL (0.11-0.59); Monocytes % (auto) 6.5 %; Neutrophils # (auto) 4.29 K/uL (1.40-6.50); Neutrophils % (auto) 57.6 %; Platelet Count 219 K/uL (130-400); RDW Coefficient of Variation 13.4 % (11.5-14.5); RDW Standard Deviation 47.7 fL (36.4-46.3); Red Blood Count 4.54 M/uL (4.70-6.10); White Blood Count 7.44 K/ul (4.8-10.8)
[2023-02-08 17:02] LABS: Alanine Aminotransferase 58 U/L (7-52); Albumin Globulin Ratio 1.9 (0.9-2); Albumin Level 4.8 gm/dl (3.4-5.0); Alkaline Phosphatase 61 U/L (34-104); Anion Gap 8 (3-11); Aspartate Aminotransferase 40 U/L (13-39); BUN Creatinine Ratio 11.7 (10-20); Bilirubin,Total 0.4 mg/dl (0.2-1.0); Blood Urea Nitrogen 14 mg/dl (6-23); Calcium 9.2 mg/dl (8.6-10.3); Carbon Dioxide 26 mmol/L (21-32); Chloride 102 mmol/L (98-107); Est GFR (African American) 79.5 ml/min; Est GFR (Non-African American) 68.6 ml/min; Globulin 2.5 gm/dl (2.5-4.0); Glucose 122 mg/dl (70-99(Fasting)); Lipase 23 U/L (11-82); Potassium 3.9 mmol/L (3.5-5.1); Sodium 136 mmol/L (136-145); Total Protein 7.3 gm/dl (6.0-8.3)
[2023-02-08 17:14] LABS: INR 0.9 (0.9-1.1); Partial Thromboplastin Time 27.7 Seconds (21.0-31.0); Prothrombin Time 10.4 Seconds (9.0-12.0)
[2023-02-08] MEDS ORDERED: OPTIRAY 320 100ml IV ONE (17:57)
--- NOTE | 2023-02-08 18:41 | CT Scan Report ---
ABDOMEN AND PELVIS CT WITH IV CONTRAST CT DOSE: 266.22 mGy.cm HISTORY: Acute epigastric abdominal pain epigastric pain TECHNIQUE: Multiaxial CT images of the abdomen and pelvis were performed following the IV administrat ion of 88 cc of Optiray, A dose lowering technique was utilized adhering to the principles of ALARA. COMPARISON STUDY: 10/02/2022 FINDINGS: Cardiomegaly with coronary artery calcifications. Clear lung bases. No pneumatosis or pneum operitoneum. Unremarkable spleen, and adrenal glands. Cholecystectomy. Mild biliary ductal dilation i s likely postsurgical. Probable cysts of the left hepatic lobe, 6 mm. Patent portal vein. Moderately short. Pancreas. Coarse calcifications of the pancreatic head and uncinate process again noted. No ev idence of acute pancreatitis. 1.5 cm cyst of the interpolar right kidney. No urolith or hydronephrosis. Circumferential urinary anthony dder wall thickening. Mild prostatomegaly. Atherosclerosis of the aorta with ectasia measuring up to 2.2 x 2.2 cm. No lymphadenopathy identified. Mild nonspecific distal esophageal wall thickening. No b owel obstruction or bowel wall thickening. The appendix contains hyperdense material within its dista l lumen however appears to be noninflamed. Scattered small bowel air-fluid levels are likely physiolo gic. Unremarkable soft tissues. No acute fracture. Transitional lumbosacral anatomy. IMPRESSION: 1. No acute intra-abdominal or intrapelvic abnormality identified. 2. Evidence of chronic pancreatitis. 3. Prostamegaly with evidence of chronic bladder outlet obstruction. 4. Additional findings as above. ACT 112: Negative or not required by law. The above report was generated using voice recognition software. It may contain grammatical, syntax o r spelling errors. Electronically signed by: Stef Jones M.D. 02/08/2023 6:39 PM
[2023-02-08 19:08] LABS: Appearance Urine Clear (Clear); Bilirubin Urine Negative (Negative); Blood Urine Negative (Negative); Color Urine Yellow; Glucose Urine UA Negative (Negative); Ketones Urine Negative (Negative); Leukocyte Esterase Urine Negative (Negative); Nitrite Urine Negative (Negative); Protein Urine Negative (Negative); Specific Gravity Urine 1.012 (1.000-1.030); Urobilinogen Urine Negative (Negative); pH Urine 5.5 (4.5-7.5)
--- NOTE | 2023-02-08 22:00 | History and Physical Report ---
DATE OF ADMISSION: 02/08/2023. CHIEF COMPLAINT: Chest pain. HISTORY OF PRESENT ILLNESS: This is a 52-year-old male with past medical history significant for hyperlipidemia, history of pancreatitis, history of [place], status post multiple stents, Casanova's esophagus, GERD, tobacco use disorder, smokes 2-3 cigarettes daily, generalized anxiety disorder, presents with chest pain. The patient states he has ongoing abdominal pain for a long time. He has followed up with GI. He recently has had MRCP on 01/29/2023, which was unremarkable. The patient says the abdominal pain sometimes shoots in chest, but abdominal pain is constant and chest pain comes and goes, but today chest pain more than usual, about 4/5 or 6/10 in severity, no radiation, associated with some sweating, some nausea.Currently pain is resolved. Denies any headache. No blurred visions, no earache, no runny nose, no sore throat. No cough. Appetite is not that great, but he could not eat much because of belly pain. Denies any diarrhea or constipation. Normal bladder movements. Jose Francisco any chest pain or sob ambulating. He states that he was supposed to see cardiology last week, but not able to see and so that is the reason he got worried and came to the hospital today, but as his labs and EKG look okay, he wanted to go home, but then later agreed to stay. ALLERGIES: No known drug allergies. PAST MEDICAL HISTORY: As mentioned above. PAST SURGICAL HISTORY: Colonoscopy, EGD, EGD with endoscopic ultrasound, ERCP, vasectomy. MEDICATIONS: The patient is on aspirin 81 mg p.o. daily, dicyclomine 10 mg p.o. b.i.d. p.r.n., ezetimibe 10 mg p.o. daily, famotidine 40 mg p.o. at bedtime, magnesium oxide 400 mg p.o. daily, metoprolol succinate 25 mg p.o. daily, nitroglycerin 0.4 mg sublingual p.r.n., Protonix 40 mg p.o. daily, atorvastatin 40 mg p.o. daily, Zoloft 50 mg p.o. daily, Brilinta 90 mg p.o. b.i.d. FAMILY HISTORY: Significant for mother has diabetes; father has hypertension; mother has stroke; maternal grandmother has mental disorder. SOCIAL HISTORY: Smokes 2-3 cigarettes daily. No alcohol currently. No drug use. REVIEW OF SYSTEMS: As per HPI. Rest of the review of systems is negative. PHYSICAL EXAMINATION: GENERAL: The patient is of moderate build, not in acute distress. VITAL SIGNS: Temperature 36.7, pulse 58, respiratory rate 22, blood pressure 141/89, oxygen 98% on room air. HEENT: Pupils equal, round and reactive to light. Oral mucosa moist. NECK: No JVD. No neck masses. CARDIOVASCULAR: S1 and S2 heard. Regular rate and rhythm. No murmur, no gallop. RESPIRATORY SYSTEM: Normal AP diameter. No accessory muscle use. No wheezing, crackles. ABDOMEN: Soft, bowel sounds present. Mild diffuse tenderness. No guarding. No rigidity. No distention. CENTRAL NERVOUS SYSTEM: Cranial nerves II through XII grossly intact. Nonfocal. EXTREMITIES: No edema, no erythema. LABORATORY DATA: WBC 7.4, hemoglobin 15.2, hematocrit 43.5, platelets 219. PT 10.4, INR 0.9, APTT 27.7. Sodium 136, potassium 3.9, chloride 102, bicarbonate 26, BUN 14, creatinine 1.2, serum glucose 122, calcium 9.2, total bilirubin 0.4, AST 40, ALT 58, alkaline phosphatase 61. Troponin I high sensitivity 9, lipase 23. Urinalysis negative. SARS-CoV-2 rapid test negative. IMAGING DATA: CT abdomen and pelvis with IV contrast, no acute findings. Evidence of chronic pancreatitis. Prostatomegaly with evidence of chronic bladder outlet obstruction. Chest x-ray, no acute process. EKG, marked sinus bradycardia, possible left atrial enlargement, nonspecific ST and T-wave abnormalities. ASSESSMENT AND PLAN: This is a 52-year-old male, who presents with chest pain and chronic abdominal pain. 1. Chest pain, history of multiple stent placement, history of myocardial infarction. His troponin and EKG unremarkable. Will observe in tele floor. We will keep him n.p.o. Consult cardiology in the a.m. We will get an echocardiogram, serial enzymes. 2. History of coronary artery disease, multiple cardiac stents. Continue home medication of aspirin, ezetimibe, rosuvastatin, metoprolol succinate and Brilinta, on last admission Brilinta dose was increased to 90 mg b.i.d. 3. History of ongoing chronic abdominal pain, chronic pancreatitis, gastroesophageal reflux disease, Casanova's esophagus. Continue his Protonix, famotidine, dicyclomine p.r.n.Followup with GI 4. Hyperlipidemia. Continue ezetimibe and statin . Will Follow lipid profile. 5. Hypertension. Continue metoprolol succinate.Will monitor 6. Generalized anxiety disorder, on Zoloft. 7. Possible BPH. On imaging study.Needs followup . 8. Deep venous thrombosis prophylaxis. Sequential compression devices for now. DISPOSITION: Observation in the tele floor. PT/OT prior to discharge. Social service to help with discharge planning. Job ID: [id number]
[2023-02-08] MEDS ORDERED: NITROGLYCERIN SL 0.4 MG/TAB TAB SL PRN (22:32)
[2023-02-08] MEDS ORDERED: POLYETHYLENE (MIRALAX) 17 GM PACK PO PRN (22:32)
[2023-02-08] MEDS ORDERED: DICYCLOMINE HCL 10 MG CAP PO PRN (22:32)
[2023-02-08] MEDS ORDERED: ACETAMINOPHEN 325 MG TAB PO PRN (22:32)
[2023-02-08] MEDS: FAMOTIDINE 40 MG TABLET PO SCH (23:03)
[2023-02-08] MEDS: TICAGRELOR 90 MG TAB PO SCH (23:03)
[2023-02-09 06:25] LABS: Basophils # (auto) 0.05 K/uL (0-0.2); Basophils % (auto) 0.9 %; Eosinophils # (auto) 0.15 K/uL (0-0.50); Eosinophils % (auto) 2.7 %; Hemoglobin 14.1 g/dl (14.0-18.0); Immature Granulocytes # (auto) 0.02 K/uL (0.01-0.20); Immature Granulocytes % (auto) 0.4 %; Lymphocytes % (auto) 31.1 %; Mean Corpuscular Hemoglobin 32.7 pg (25.0-34.0); Mean Corpuscular Hgb Conc 34.4 g/dL (32.0-36.0); Mean Corpuscular Volume 95.1 fL (80.0-100.0); Mean Platelet Volume 8.9 fL (9.4-12.4); Monocytes # (auto) 0.36 K/uL (0.11-0.59); Monocytes % (auto) 6.6 %; Neutrophils # (auto) 3.18 K/uL (1.40-6.50); Neutrophils % (auto) 58.3 %; Platelet Count 189 K/uL (130-400); RDW Coefficient of Variation 13.3 % (11.5-14.5); RDW Standard Deviation 46.5 fL (36.4-46.3); Red Blood Count 4.31 M/uL (4.70-6.10); White Blood Count 5.46 K/ul (4.8-10.8)
[2023-02-09 06:35] LABS: BUN Creatinine Ratio 11.2 (10-20); Calcium 8.6 mg/dl (8.6-10.3); Chol HDL Ratio 3.1 (0-5); Est GFR (African American) 91.4 ml/min; Est GFR (Non-African American) 78.8 ml/min; Potassium 4.1 mmol/L (3.5-5.1)
[2023-02-09 06:43] LABS: Troponin I High Sensitivity 13.1 pg/ml (0-20)
--- NOTE | 2023-02-09 09:02 | Cardiology Consultation ---
Date of Consultation February 09, 2023 Assessment & Plan (1) Chest pain: (2) CAD (coronary artery disease): (3) Sinus bradycardia: (4) Recurrent pancreatitis: Plan Patient admitted with intermittent chest pain over the last few weeks. Symptoms improving with SL nitro. HS troponin unremarkable x3. EKG was without acute changes. He has a complex history of CAD as above with most recent intervention of the left circumflex into the posterolateral branch due to acute occlusion, Sep 2022. He had other moderate non obstructive disease within the LAD. Prior stents within the RCA were patent. There was concerns post cath that he may have recurrent issues with occlusions in this area. Options discussed with patient. Given his intermittent chest pain, recommend proceeding with nuclear lexiscan stress test to evaluate ischemic burden. In the interim, continue ASA, Brilinta, rosuvastatin, zetia, metoprolol. HR's were slow upon arrival, but no symptoms. HR's currently in the mid 50's. May need to consider reduction in metoprolol. Could also consider adding nitrates for antianginal symptoms Await nuclear stress test results, arranged for tomorrow, 02/10. Case discussed with Dr. Tamez. I spent a total of 60 minutes on the date of service in preparation, delivery, and documentation of the care provided to this patient, excluding any time spent in the performance of separately billed services. Carmen Hutton PA-C Department of Cardiology, [facility] This chart was completed in part utilizing Speech Voice Recognition Software. Grammatical errors, random word insertions, prounoun errors, and incomplete sentences are an occasional consequence of this system due to software limitations, ambient noise, and hardware issues. Any formal questions or concerns about the content, text, or information contained within the body of this dictation should be directly addressed to the provider for clarification. Supervising Physician Co-Signing Physician Notes Supervising Physician Attestation: I have personally performed a history and physical examination on the patient. I agree with the physician purchasing administrative assistant's findings and plan as documented with the following additions. Subjective: Patient noted waxing waning chest discomfort yesterday, resolved overnight and thus far today. High sensitive troponin negative x3. EKG without acute changes Exam: Cardiovascular regular rhythm, no murmurs rubs or gallops, no edema Pulmonary: Lungs clear to auscultation bilaterally Data: Echocardiogram performed today revealed a small basal inferior, basal posterior wall motion abnormality with akinesis of the segments. Compared to September,, the area of akinesis is stable without significant interval change, the surrounding anteroseptal and lateral hypokinesis noted on the previous echo have resolved. Low normal LVEF noted, in the range of 50-55% Assessment and Plan: -Chest discomfort in setting of history of complex of coronary heart disease. Negative enzymes. Clinical symptoms compounded by the patient's history of recurrent pancreatitis episodes. Lipase 02/08/2023 was within normal limits. -Plan for further stratification with an exercise nuclear stress test. I think that this modality would be more ideal than a stress echocardiogram for this patient given his baseline wall motion abnormalities on echocardiogram, would provide better insight with regards to scar versus inducible ischemia. For scheduling constrictions, test to be performed on 02/10/2023. Patient agreeable. Diet advanced. N.p.o. after midnight tonight. 20 minutes were spent on direct patient care including reviewing his records, performing a history and physical exam with the patient, counseling with regards to his problem list and treatment options, and preparing this document. Herb Tamez, DO History of Present Illness Reason for Consultation: Chest pain; history of CAD Requesting Physician: Dr. Singh Attending Physician: Dr. Tamez History of Present Illness Patient is a 52 year old male known to [facility] with complex history includin.Coronary artery disease status post PCI to the RCA in the setting of a [id number] elevation NH. 2.Inferior STEMI/100% acute distal circumflex occlusion at bifurcation with large PLB 3. Moderate nonobstructive non-culprit coronary artery disease -50 to 60% mid LAD (unchanged from 10/2018) Widely patent RCA stents 4. PCI to OM09 December 2020 in the setting of syncope and transient Mobitz 2 heart block 5. NSTEMI in Sep 2022 - with Reocclusion of previously stented circumflex into the posterolateral branch. Successful PCI with the addition of 1 drug-eluting stent proximally and PTCA throughout the previously placed stent train. Moderate disease in the LAD is angiographically unchanged from previous. Previously placed RCA stents remain patent. 6. History of rate controlled atrial fibrillation post Cath/NH. no known recurrence. 7.Ongoing tobacco abuse. 8.Anxiety. 9.. History of recurrent pancreatitis, with recent MRCP without pancreatitis or fluid. No biliary obstruction In September 2022, patient was admitted to [facility] with complaints of chest pain. Hospital records reviewed in detail. Cardiology was consulted and evaluated by Dr. Whittaker. High sensitivity troponin was elevated at 6310 and then 8164. EKG without acute ST elevation. Diagnosed with NSTEMI. Underwent diagnostic cardiac catheterization which revealed acutely occluded previously stented circumflex lesion. He was treated with 1 drug-eluting stent, with other nonobstructive disease and patent stents in the RCA. Brilinta dose was increased from 60-90 mg twice daily on discharge in addition to his other home medications. Echo revealed preserved EF at 55% with a large sized septal, inferior posterior lateral wall motion abnormality with hypokinesis. Patient has a long hsitory of pancreatitis. Over the recent weeks he felt he was having a flare of his pancreatitis with increased abdominal pain. He recently had MRCP without acute findings. He reports his "normal" epigastric discomfort then radiated to his chest over the last few weeks. He reports using about 3 SL nitro tablets over the last few weeks for left sided chest pain. Most episodes occurred at rest. A few episodes with walking/exertion at work. 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 Yesterday he had an episode of chest pain that awakened him from sleep. He took 1 SL nitro and symptoms resolved. He went to work and noted intermittent chest pain all day, so he came to ER for evaluation. He also reported intermittent diaphoresis with the chest pain episodes. Upon admission, EKG was without acute changes. HS troponin unremarkable x3. No acute findings on abd/pelvic CT. He was admitted for further evaluation. At time of consult, patient feeling well resting in chair. He denies recurrent chest pain overnight. No SOB. No arrhythmias on telemetry. He reports compliance with medications overnight. Allergies Allergy/AdvReac Type Severity Reaction Status Date / Time No Known Allergies Allergy Verified 02/08/23 17:45 Home Medications Medication Instructions Recorded Confirmed Type aspirin 81 mg tablet,delayed 81 mg PO QAM 10/06/18 02/08/23 History release sertraline 50 mg tablet (Zoloft) 50 mg PO QAM 10/06/18 02/08/23 History nitroglycerin 0.4 mg sublingual 0.4 mg sublingual UD PRN Chest Pain 10/07/18 02/08/23 History tablet (Nitrostat) dicyclomine 10 mg capsule 10 mg PO BID PRN Abdominal Pain 12/06/20 02/08/23 History ezetimibe 10 mg tablet 10 mg PO QAM 12/06/20 02/08/23 History famotidine 40 mg tablet 40 mg PO HS 12/06/20 02/08/23 History magnesium oxide 400 mg PO QAM 12/06/20 02/08/23 History pantoprazole 40 mg tablet,delayed 40 mg PO QAM 08/20/21 02/08/23 History release metoprolol succinate 25 mg 25 mg PO DAILY 07/27/22 02/08/23 History tablet,extended release 24 hr rosuvastatin 40 mg tablet 40 mg PO DAILY 07/27/22 02/08/23 History ticagrelor 90 mg tablet (Brilinta) 90 mg PO BID 30 days #60 tabs 10/12/22 02/08/23 Rx Patient History Medical History Acute pancreatitis Barretts esophagus CAD (coronary artery disease) 2018-RCA stent x 2 07/2020-STEMI, s/p PCI to left circumflex with 2 MELLY. Post procedure complicated by V. fib arrest requiring defibrillation. 12/2020-NSTEMI s/p 3 Xience MELLY to the distal aspect of prior stent of the left posterior lateral branch vessel COVID-29 Oct 2021 Depression RADHA (generalized anxiety disorder) GERD (gastroesophageal reflux disease) Grade II diastolic dysfunction HLD (hyperlipidemia) Mobitz type 2 second degree atrioventricular block Recurrent pancreatitis Splenic infarct Tobacco abuse Surgical History History of endoscopic retrograde cholangiopancreatography x2 (08/31, 09/30) History of vasectomy Hx laparoscopic cholecystectomy (08/22/21) Laparoscopic Cholecystectomy Dr. Davidson 08/22/2021 Family History Mother Gallbladder disease Sister Gallbladder disease Other Diabetes Stroke Denies family history of Pancreatic disease Social History Smoking Status: Current every day smoker Tobacco Type: Cigarettes Cigarettes Per Day: 1/2 pack; Second Hand Exposure: No; Do You Dip or Chew Tobacco: No; Tobacco Cessation Education Requested by Patient: No Hx Alcohol Use: No Hx Substance Use: No Preferred Language: Spanish Communication Ability: Effective Computer Systems Technician Required: No Beliefs That Will Affect Care: None marital status: Single Current Living Situation: Alone current occupational status: employed Other Information That Helps Us Care for You: No Feels Safe at Home: Yes Safety Concerns: Feels Safe At This Time Assistive Devices: None Review of Systems Review of Systems: All systems reviewed & are unremarkable except as noted in HPI & below Physical Exam Constitutional: WD/WN, vitals as above + thin; no acute distress Neck: trachea midline, no thyromegaly Respiratory: normal respiratory effort, lungs clear to auscultation Cardiovascular: Rate/Rhythm: regular rate and regular rhythm Heart Sounds: no murmur Palpation: normal PMI Vessels: no JVD Extremities: no edema Gastrointestinal (Abdomen): normal bowel sounds, soft, nontender, no hepatosplenomegaly Skin: no rashes, warm and dry Psychiatric: A+Ox3, euthymic affect Results & Data Vital Signs (Past 12 Hours) Vital Signs Temp Pulse Pulse Resp BP BP Pulse Ox 02/09/23 08:42 36.7 C 56 L 20 125/80 95 02/09/23 08:29 52 L 02/09/23 03:20 36.6 C 51 L 18 115/63 96 02/08/23 23:11 36.6 C 51 L 18 151/78 H 99 02/08/23 22:00 60 23 159/106 H 96 02/08/23 21:30 53 L 20 143/95 H 96 02/08/23 21:00 58 L 14 152/81 H 97 02/08/23 21:14 58 L O2 Del Method 02/09/23 08:42 Room Air 02/09/23 08:29 02/09/23 03:20 Room Air 02/08/23 23:11 Room Air 02/08/23 22:00 02/08/23 21:30 02/08/23 21:00 02/08/23 21:14 Laboratory Results Cardiac Enzymes 02/08/23 02/08/23 02/09/23 Range/Units 16:16 23:10 05:24 AST 40 H (13-39) U/L Troponin I High Sens 9.0 13.3 D 13.1 (0-20) pg/ml Coagulation 02/08/23 Range/Units 16:16 PT 10.4 (9.0-12.0) Seconds APTT 27.7 (21.0-31.0) Seconds Lipids 02/09/23 Range/Units 05:24 Triglycerides 128 (0-150) mg/dl Cholesterol 109 (0-200) mg/dl HDL Cholesterol 35 mg/dl Cholesterol/HDL Ratio 3.1 (0-5) CBC 02/08/23 02/09/23 Range/Units 16:16 05:24 WBC 7.44 5.46 (4.8-10.8) K/ul RBC 4.54 L 4.31 L (4.70-6.10) M/uL Hgb 15.2 14.1 (14.0-18.0) g/dl Hct 43.5 41.0 L (42.0-52.0) % Plt Count 219 189 (130-400) K/uL Neut # (Auto) 4.29 3.18 (1.40-6.50) K/uL Lymph # (Auto) 2.43 1.70 (1.2-3.4) K/uL [place] # (Auto) 0.48 0.36 (0.11-0.59) K/uL Eos # (Auto) 0.16 0.15 (0-0.50) K/uL Baso # (Auto) 0.07 0.05 (0-0.2) K/uL Comprehensive Metabolic Panel 02/08/23 02/09/23 Range/Units 16:16 05:24 Sodium 136 137 (136-145) mmol/L Potassium 3.9 4.1 (3.5-5.1) mmol/L Chloride 102 109 H (98-107) mmol/L Carbon Dioxide 26 22 (21-32) mmol/L BUN 14 12 (6-23) mg/dl Creatinine 1.20 1.07 (0.6-1.4) mg/dl Glucose 122 H 84 (70-99(Fasting)) mg/dl Calcium 9.2 8.6 (8.6-10.3) mg/dl AST 40 H (13-39) U/L ALT 58 H (7-52) U/L Alkaline Phosphatase 61 (34-104) U/L Total Protein 7.3 (6.0-8.3) gm/dl Albumin 4.8 (3.4-5.0) gm/dl Diagnostic Findings Telemetry reviewed: NSR and sinus bradycardia with HR's ranging 50-70 bpm EKG on admission: Sinus bradycardia with HR's in the mid 40's. no acute ischemic changes Repeat EKG this morning: Sinus bradycardia with HR in the 50's Chest X-Ray 02/08/23 16:09 COMPARISON: 10/10/2022 TECHNIQUE: AP view of the chest FINDINGS: Cardiomediastinal and hilar silhouettes are within normal limits. No pneumothorax, pleural effusion, airspace consolidation or pulmonary edema. Bones of the chest appear grossly intact. IMPRESSION: No acute process. Abdomen/Pelvis CT 02/08/23 16:33 IMPRESSION: 1. No acute intra-abdominal or intrapelvic abnormality identified. 2. Evidence of chronic pancreatitis. 3. Prostamegaly with evidence of chronic bladder outlet obstruction. 4. Additional findings as above. Cardiac cath report reviewed dated 10/10/22: Summary: Reocclusion of previously stented circumflex into the posterolateral branch. Successful PCI with the addition of 1 drug-eluting stent proximally and PTCA throughout the previously placed stent train. Angiographically reasonable results. Moderate disease in the LAD is angiographically unchanged from previous. Previously placed RCA stents remain patent. Patient will remain on Integrilin drip for 12 hours. He will remain on aspirin 81 mg daily. His Brilinta will be increased to 90 mg p.o. twice daily. Guideline directed medical therapy we will continue with high intensity statin, beta-shay, plus or minus JOYCE inhibitor/ARB. Note: Given poor myocardial blush on prior study as well as current study in combination with recurrent stent thrombosis I suspect a long-term patency will be limited. There is probably some degree of acute microvascular occlusion from thrombus but also significant myocardial scarring. Medications Administered Current Inpatient Medications Acetaminophen (Acetaminophen 325 Mg Tab) 650 mg PO Q4H PRN PRN Reason: Pain or Fever Stop: 03/10/23 22:31 Aspirin (Aspirin 81 Mg Ectab) [facility] [place] Stop: 03/11/23 08:59 Last Admin: 02/09/23 09:45 Dose: 81 mg Dicyclomine HCl (Dicyclomine Hcl 10 Mg Cap) 10 mg PO BID PRN PRN Reason: Abdominal Pain Stop: 03/10/23 22:31 Last Admin: 02/08/23 23:03 Dose: 10 mg Ezetimibe (Ezetimibe 10 Mg Tablet) 10 mg PO QAM [facility] Stop: 03/11/23 08:59 Last Admin: 02/09/23 09:45 Dose: 10 mg Famotidine (Famotidine 40 Mg Tablet) 40 mg PO HS [facility] Stop: 03/10/23 22:31 Last Admin: 02/08/23 23:03 Dose: 40 mg Magnesium Oxide (Magnesium Oxide 400 Mg Tab) 400 mg PO QAM [facility] Stop: 03/11/23 08:59 Last Admin: 02/09/23 09:44 Dose: 400 mg Metoprolol Succinate (Metoprolol Succ 25mg Ext Rel Tab) 25 mg PO DAILY [facility] Stop: 03/11/23 08:59 Last Admin: 02/09/23 09:45 Dose: 25 mg Nitroglycerin (Nitroglycerin Sl 0.4 Mg/Tab Tab) 0.4 mg SL UD PRN PRN Reason: Chest Pain Stop: 03/10/23 22:31 Pantoprazole Sodium (Pantoprazole 40 Mg Tab) [facility] [place] Stop: 03/11/23 08:59 Last Admin: 02/09/23 09:45 Dose: 40 mg Polyethylene Glycol (Polyethylene (Miralax) 17 Gm Pack) 17 gm PO DAILY PRN PRN Reason: Constipation Stop: 03/10/23 22:31 Rosuvastatin Calcium (Rosuvastatin Calcium 20 Mg Tab) 40 mg PO DAILY [facility] Stop: 03/11/23 08:59 Last Admin: 02/09/23 09:45 Dose: 40 mg Sertraline HCl (Sertraline Hcl 50 Mg Tablet) 50 [facility] [place] Stop: 03/11/23 08:59 Last Admin: 02/09/23 09:44 Dose: 50 mg Ticagrelor (Ticagrelor 90 Mg Tab) 90 mg PO BID [facility] Stop: 03/10/23 22:31 Last Admin: 02/09/23 09:44 Dose: 90 mg
[2023-02-09] MEDS: MAGNESIUM OXIDE 400 MG TAB PO SCH (09:44)
[2023-02-09] MEDS: TICAGRELOR 90 MG TAB PO SCH ×2 (09:44→21:10)
[2023-02-09] MEDS: SERTRALINE HCL 50 MG TABLET PO SCH (09:44)
[2023-02-09] MEDS: ROSUVASTATIN CALCIUM 20 MG TAB PO SCH (09:45)
[2023-02-09] MEDS: EZETIMIBE 10 MG TABLET PO SCH (09:45)
[2023-02-09] MEDS: PANTOprazole 40 MG TAB PO SCH (09:45)
[2023-02-09] MEDS: METOPROLOL SUCC 25MG EXT REL TAB PO SCH (09:45)
[2023-02-09] MEDS: ASPIRIN 81 MG ECTAB PO SCH (09:45)
--- NOTE | 2023-02-09 12:21 | Hospitalist Progress Note ---
Date of Service February 09, 2023 Assessment & Plan (1) Chest pain: (2) CAD (coronary artery disease): (3) Sinus bradycardia: Plan: Patient is a 52-year-old male with history of CAD; most recent intervention was in left circumflex into the posterolateral branch due to acute occlusion, 09/2022. Presented with on and off chest pain for several days. Symptoms limited by nitro High sensitive troponin on admission negative. EKG personally reviewed sinus bradycardia; QTc of 383. Discussed with cardiology; plan to get a stress test tomorrow AM. Continue on aspirin, Brilinta, rosuvastatin, Zetia and metoprolol. Possible addition of nitrate for anginal symptoms. Telemetry monitoring. (4) Chronic pancreatitis: Plan: History of multiple admissions in the past due to chronic pancreatitis abdominal pain. Lipase within limits Continue low-fat diet. (5) HLD (hyperlipidemia): Plan: Continue ezetimibe and statin (6) RADHA (generalized anxiety disorder): Plan: on Zoloft. Plan DVT prophylaxis SCDs Full code Dispositioncontinue to monitor on telemetry. Stress test tomorrow AM. N.p.o. from midnight. Possible DC tomorrow depending on stress test results. Admission and Anticipated Discharge Date Admission Date: February 08, 2023 Subjective Patient seen and examined at bedside. He is comfortably sitting up on the bed; not in distress. Denies any recurrence of chest pain at present time. Afebrile. Telemetry shows normal sinus rhythm. Review of Systems Review of Systems: All systems reviewed & are unremarkable except as noted in Subjective Physical Exam Physical Exam: Constitutional: WD/WN, vitals as above, NAD, sitting up in bed, pleasant, conversing easily Respiratory: normal respiratory effort, lungs clear to auscultation, no wheeze, rales, rhonchi. Normal insp/exp effort, no accessory muscle use Cardiovascular: RRR, no murmur, no edema Vessels: no JVD or carotid bruit Chest: normal inspection of chest Abdomen: normal bowel sounds, soft, nontender, no hepatosplenomegaly Musculoskeletal: no cyanosis or clubbing, extremities motor strength 5/5 Skin: no rashes, warm and dry normal turgor Neurologic: PERRL, EOMI, accommodation nl, no face palsy, no dysarthria CN's II- XI intact bilaterally and moves all extremities Psychiatric: A+Ox3, euthymic affect Lymphatic: no cervical or axillary lymphadenopathy : deferred Results & Data Results & Data Vital Signs (Past 12 Hours) Vital Signs Temp Pulse Pulse Resp BP Pulse Ox O2 Del Method 02/09/23 12:05 36.6 C 56 L 18 116/70 98 Room Air 02/09/23 08:42 36.7 C 56 L 20 125/80 95 Room Air 02/09/23 08:29 52 L 02/09/23 03:20 36.6 C 51 L 18 115/63 96 Room Air Laboratory Results Laboratory Results WBC 5.46 K/ul (4.8-10.8) 02/09/23 05:24 RBC 4.31 M/uL (4.70-6.10) L 02/09/23 05:24 Hgb 14.1 g/dl (14.0-18.0) 02/09/23 05:24 Hct 41.0 % (42.0-52.0) L 02/09/23 05:24 MCV 95.1 fL (80.0-100.0) 02/09/23 05:24 MCH 32.7 pg (25.0-34.0) 02/09/23 05:24 MCHC 34.4 g/dL (32.0-36.0) 02/09/23 05:24 RDW Std Deviation 46.5 fL (36.4-46.3) H 02/09/23 05:24 RDW Coeff of Mckinley 13.3 % (11.5-14.5) 02/09/23 05:24 Plt Count 189 K/uL (130-400) 02/09/23 05:24 MPV 8.9 fL (9.4-12.4) L 02/09/23 05:24 Immature Gran % (Auto) 0.4 % 02/09/23 05:24 Neut % (Auto) 58.3 % 02/09/23 05:24 Lymph % (Auto) 31.1 % 02/09/23 05:24 Mcminn % (Auto) 6.6 % 02/09/23 05:24 Eos % (Auto) 2.7 % 02/09/23 05:24 Baso % (Auto) 0.9 % 02/09/23 05:24 Neut # (Auto) 3.18 K/uL (1.40-6.50) 02/09/23 05:24 Lymph # (Auto) 1.70 K/uL (1.2-3.4) 02/09/23 05:24 Mcminn # (Auto) 0.36 K/uL (0.11-0.59) 02/09/23 05:24 Eos # (Auto) 0.15 K/uL (0-0.50) 02/09/23 05:24 Baso # (Auto) 0.05 K/uL (0-0.2) 02/09/23 05:24 Immature Gran # (Auto) 0.02 K/uL (0.01-0.20) 02/09/23 05:24 PT 10.4 Seconds (9.0-12.0) 02/08/23 16:16 INR 0.9 (0.9-1.1) 02/08/23 16:16 APTT 27.7 Seconds (21.0-31.0) 02/08/23 16:16 PTT Ratio 1.0 02/08/23 16:16 Sodium 137 mmol/L (136-145) 02/09/23 05:24 Potassium 4.1 mmol/L (3.5-5.1) 02/09/23 05:24 Chloride 109 mmol/L (98-107) H 02/09/23 05:24 Carbon Dioxide 22 mmol/L (21-32) 02/09/23 05:24 Anion Gap 6 (3-11) 02/09/23 05:24 BUN 12 mg/dl (6-23) 02/09/23 05:24 Creatinine 1.07 mg/dl (0.6-1.4) 02/09/23 05:24 Est Cr Clr Drug Dosing 65.0 ml/min 02/09/23 05:24 Est GFR ( Amer) 91.4 ml/min 02/09/23 05:24 Est GFR (Non-Af Amer) 78.8 ml/min 02/09/23 05:24 BUN/Creatinine Ratio 11.2 (10-20) 02/09/23 05:24 Glucose 84 mg/dl (70-99(Fasting)) 02/09/23 05:24 Calcium 8.6 mg/dl (8.6-10.3) 02/09/23 05:24 Magnesium 2.0 mg/dl (1.7-2.4) 02/09/23 05:24 Total Bilirubin 0.4 mg/dl (0.2-1.0) 02/08/23 16:16 AST 40 U/L (13-39) H 02/08/23 16:16 ALT 58 U/L (7-52) H 02/08/23 16:16 Alkaline Phosphatase 61 U/L (34-104) 02/08/23 16:16 Troponin I High Sens 11.3 pg/ml (0-20) 02/09/23 10:49 Total Protein 7.3 gm/dl (6.0-8.3) 02/08/23 16:16 Albumin 4.8 gm/dl (3.4-5.0) 02/08/23 16:16 Globulin 2.5 gm/dl (2.5-4.0) 02/08/23 16:16 Albumin/Globulin Ratio 1.9 (0.9-2) 02/08/23 16:16 Triglycerides 128 mg/dl (0-150) 02/09/23 05:24 Cholesterol 109 mg/dl (0-200) 02/09/23 05:24 LDL Cholesterol, Calc 48 mg/dl 02/09/23 05:24 VLDL Cholesterol, Calc 26 mg/dl (0-30) 02/09/23 05:24 HDL Cholesterol 35 mg/dl 02/09/23 05:24 Cholesterol/HDL Ratio 3.1 (0-5) 02/09/23 05:24 Lipase 23 U/L (11-82) 02/08/23 16:16 Urine Color Yellow 02/08/23 18:06 Urine Appearance Clear (Clear) 02/08/23 18:06 Urine pH 5.5 (4.5-7.5) 02/08/23 18:06 Ur Specific [place] 1.012 (1.000-1.030) 02/08/23 18:06 Urine Protein Negative (Negative) 02/08/23 18:06 Urine Glucose (UA) Negative (Negative) 02/08/23 18:06 Urine Ketones Negative (Negative) 02/08/23 18:06 Urine Blood Negative (Negative) 02/08/23 18:06 Urine Nitrite Negative (Negative) 02/08/23 18:06 Urine Bilirubin Negative (Negative) 02/08/23 18:06 Urine Urobilinogen Negative (Negative) 02/08/23 18:06 Ur Leukocyte Esterase Negative (Negative) 02/08/23 18:06 SARS-CoV-2, RNA, NAAT NEGATIVE (NEGATIVE) 02/08/23 16:26 Impressions Chest X-Ray 02/08/23 16:09 XR chest 1V portable HISTORY: 52 years-old Male Chest pain, nonspecific COMPARISON: 10/10/2022 TECHNIQUE: AP view of the chest FINDINGS: Cardiomediastinal and hilar silhouettes are within normal limits. No pneumothorax, pleural effusion, airspace consolidation or pulmonary edema. Bones of the chest appear grossly intact. IMPRESSION: No acute process. ACT 112: Negative or not required by law. The above report was generated using voice recognition software. It may contain grammatical, syntax or spelling errors. Electronically signed by: Stef Jones M.D. 02/08/2023 4:24 PM Abdomen/Pelvis CT 02/08/23 16:[address] WITH IV CONTRAST CT DOSE: 266.22 mGy.cm HISTORY: Acute epigastric abdominal pain epigastric pain TECHNIQUE: Multiaxial CT images of the abdomen and pelvis were performed following the IV administration of 88 cc of Optiray, A dose lowering technique was utilized adhering to the principles of ALARA. COMPARISON STUDY: 10/02/2022 FINDINGS: Cardiomegaly with coronary artery calcifications. Clear lung bases. No pneumatosis or pneumoperitoneum. Unremarkable spleen, and adrenal glands. Cholecystectomy. Mild biliary ductal dilation is likely postsurgical. Probable cysts of the left hepatic lobe, 6 mm. Patent portal vein. Moderately short. Pancreas. Coarse calcifications of the pancreatic head and uncinate process again noted. No evidence of acute pancreatitis. 1.5 cm cyst of the interpolar right kidney. No urolith or hydronephrosis. Circumferential urinary bladder wall thickening. Mild prostatomegaly. Atherosclerosis of the aorta with ectasia measuring up to 2.2 x 2.2 cm. No lymphadenopathy identified. Mild nonspecific distal esophageal wall thickening. No bowel obstruction or bowel wall thickening. The appendix contains hyperdense material within its distal lumen however appears to be noninflamed. Scattered small bowel air-fluid levels are likely physiologic. Unremarkable soft tissues. No acute fracture. Transitional lumbosacral anatomy. IMPRESSION: 1. No acute intra-abdominal or intrapelvic abnormality identified. 2. Evidence of chronic pancreatitis. 3. Prostamegaly with evidence of chronic bladder outlet obstruction. 4. Additional findings as above. ACT 112: Negative or not required by law. The above report was generated using voice recognition software. It may contain grammatical, syntax or spelling errors. Electronically signed by: Stef Jones M.D. 02/08/2023 6:39 PM
--- NOTE | 2023-02-09 19:07 | Electrocardiogram Report ---
Test Reason : Blood Pressure : / mmHG Vent. Rate : 044 BPM Atrial Rate : 044 BPM P-R Int : 132 ms QRS Dur : 090 ms QT Int : 412 ms P-R-T Axes : 066 025 025 degrees QTc Int : 352 ms Marked sinus bradycardia Possible Left atrial enlargement Abnormal ECG When compared with ECG of 11-OCT-2022 05:13, Nonspecific T wave abnormality has replaced inverted T waves in Inferior leads Confirmed by Tanvir Horne ([id number]) on 02/09/2023 7:07:07 PM Referred By: Confirmed By:Tanvir Horne
--- NOTE | 2023-02-09 20:01 | Electrocardiogram Report ---
Test Reason : Blood Pressure : / mmHG Vent. Rate : 051 BPM Atrial Rate : 051 BPM P-R Int : 134 ms QRS Dur : 092 ms QT Int : 416 ms P-R-T Axes : 062 015 014 degrees QTc Int : 383 ms Sinus bradycardia Otherwise normal ECG When compared with ECG of 08-FEB-2023 16:14, (unconfirmed) No significant change was found Confirmed by Tanvir Horne ([id number]) on 02/09/2023 8:01:04 PM Referred By: REFERRED SELF Confirmed By:Tanvir Horne
[2023-02-09] MEDS: FAMOTIDINE 40 MG TABLET PO SCH ×2 (21:10→21:38)
[2023-02-10] MEDS: SERTRALINE HCL 50 MG TABLET PO SCH (09:21)
[2023-02-10] MEDS: EZETIMIBE 10 MG TABLET PO SCH (09:21)
[2023-02-10] MEDS: ASPIRIN 81 MG ECTAB PO SCH (09:21)
[2023-02-10] MEDS: PANTOprazole 40 MG TAB PO SCH (09:21)
[2023-02-10] MEDS: TICAGRELOR 90 MG TAB PO SCH (10:50)
--- NOTE | 2023-02-10 12:49 | Cardiology Progress Note ---
Date of Service February 10, 2023 Assessment & Plan (1) Chest pain: (2) CAD (coronary artery disease): (3) Sinus bradycardia: (4) Recurrent pancreatitis: Plan Patient without recurrent symptoms. Further recommendations with be forthcoming after the images of his nuclear stress test are interpreted. Addendum: Exercise nuclear stress test is negative for ischemia. No symptoms of angina induced having achieved a high workload. Patient stable for discharge from a cardiac perspective on his prior home regimen that included aspirin, Brilinta, ezetimibe, metoprolol, rosuvastatin. Continue outpatient treatment with Protonix and famotidine. Admission and Anticipated Discharge Date Admission Date: February 08, 2023 Subjective Patient seen in cardiology follow-up prior to, during, and after nuclear stress test. Sinus rhythm and sinus bradycardia noted on telemetry. Physical Exam Constitutional: WD/WN, vitals as above Respiratory: normal respiratory effort, lungs clear to auscultation Cardiovascular: RRR, no murmur, no edema Gastrointestinal (Abdomen): normal bowel sounds, soft, nontender, no hepatosplenomegaly Neurologic: PERRL, EOMI, accommodation nl, no face palsy, no dysarthria Results & Data Vital Signs (Past 12 Hours) Vital Signs Temp Pulse Pulse Resp BP Pulse Ox O2 Del Method 02/10/23 11:33 36.7 C 62 18 105/69 96 Room Air 02/10/23 07:22 36.5 C 62 20 95/62 L 97 Room Air 02/10/23 05:14 52 L 02/10/23 04:55 36.5 C 65 16 106/68 96 Room Air Laboratory Results Cardiac Enzymes 02/09/23 Range/Units 17:37 Troponin I High Sens 10.7 (0-20) pg/ml Intake and Output 02/09/23 02/10/23 02/10/23 22:59 06:59 14:59 Intake Total 560 / 1420 300 / 1420 Balance 560 / 1419 300 / 1419 Intake: Oral 560 / 1420 300 / 1420 Other: # Unmeasured Voids 1 1 Weight 57.4 kg
[2023-02-10] MEDS: MAGNESIUM OXIDE 400 MG TAB PO SCH (13:10)
[2023-02-10] MEDS: ROSUVASTATIN CALCIUM 20 MG TAB PO SCH (13:11)
[2023-02-10] MEDS: METOPROLOL SUCC 25MG EXT REL TAB PO SCH (13:11)
--- NOTE | 2023-02-10 13:57 | Electrocardiogram Report ---
Test Reason : Blood Pressure : / mmHG Vent. Rate : 046 BPM Atrial Rate : 046 BPM P-R Int : 130 ms QRS Dur : 092 ms QT Int : 420 ms P-R-T Axes : 072 040 036 degrees QTc Int : 367 ms Poor data quality, interpretation may be adversely affected Sinus bradycardia Otherwise normal ECG When compared with ECG of 09-FEB-2023 04:57, No significant change was found Confirmed by Tanvir Horne ([id number]) on 02/10/2023 1:57:05 PM Referred By: REFERRED SELF Confirmed By:Tanvir Horne
--- NOTE | 2023-02-10 15:20 | Myocardial Perfusion Study ---
Date of Service February 10, 2023 Myocardial Perfusion Study [facility] Myocardial Perfusion Study Report Procedure: 1. Myocardial perfusion study performed in multiple views/images 2. Lexiscan pharmacologic stress ECG Indications: 1. Chest discomfort, history of coronary heart disease Ordering physician: Herb Tamez DO Procedural details: For the stress portion of the study, Lexiscan 0.4 mg was intravenously administered followed by a saline flush. This was followed by 32.7 mCi of te chnetium 99m Cardiolite, injected at 1305 on 02/10/2023. 30 minutes following the injection, imaging of the heart was performed in multiple projections. For the rest portion of the study, 10.7 mCi technetium 99m Cardiolite was injected intravenously at 11:20 AM on 02/10/2023. 1 hour following the injection, imaging of the heart was performed in the same projections. Lexiscan stress ECG: The patient exercised according to a standard Pardeep protocol for 9 minutes achieving a work level of 10.10 METS. The resting heart rate of 65 bpm malissa to a maximal heart rate of 111 bpm. This value represents 66% of the maximal age- predicted heart rate. The resting blood pressure of 126/76 malissa to a maximum blood pressure of 158/80. The stress test was terminated due to fatigue With an appropriate degree of shortness of breath observed for the level of exercise achieved. No symptoms suggestive angina were reported. The heart rate response to exercise was attenuated due to underlying beta- shay therapy. Blood pressure response to exercise was normal. The baseline EKG revealed sinus rhythm at [address] segments. The stress EKG response to exercise was normal. Occasional isolated PVCs were noted without sustained arrhythmia. Findings: Rotating raw imaging demonstrated no significant lung uptake. There is no significant motion artifact. Heart size appeared normal. Attenuation artifact was noted on the resting images. The stress perfusion images revealed a small inferior perfusion defect with normal perfusion in the remaining myocardial segments. The resting images are somewhat technically limited but revealed a fixed inferior perfusion defect. Gated wall motion revealed inferior wall hypokinesis. The calculated left ventricular ejection fraction by the gated SPECT technique was 38%, but this is not felt to be reliable as the cardiac volumes were not accurately obtained due to the lack of counts in the inferior wall. Qualitatively, the left ventricular ejection fraction appears in the lower range of normal in the range of 50 to 55% with inferior akinesis. No significant transient ischemic dilation. Impression: 1. The exercise myocardial perfusion imaging study revealed a fixed inferior perfusion defect without evidence of superimposed ischemia. 2. The stress EKG response was negative for ischemia having reached a high workload, 10.10 METS, maximum heart rate equivalent to 66% of the age-predicted maximum. The heart rate response was appropriately attenuated due to underlying beta-shay therapy.
--- NOTE | 2023-02-10 16:29 | Discharge Summary ---
Date of Service February 10, 2023 Admission HPI Per Admitting Provider This is a 52-year-old male with past medical history significant for hyperlipidemia, history of pancreatitis, history of ND, status post multiple stents, Casanova's esophagus, GERD, tobacco use disorder, smokes 2-3 cigarettes daily, generalized anxiety disorder, presents with chest pain. The patient states he has ongoing abdominal pain for a long time. He has followed up with GI. He recently has had MRCP on 01/29/2023, which was unremarkable. The patient says the abdominal pain sometimes shoots in chest, but abdominal pain is constant and chest pain comes and goes, but today chest pain more than usual, about 4/5 or 6/10 in severity, no radiation, associated with some sweating, some nausea.Currently pain is resolved. Denies any headache. No blurred visions, no earache, no runny nose, no sore throat. No cough. Appetite is not that great, but he could not eat much because of belly pain. Denies any diarrhea or constipation. Normal bladder movements. Jose Francisco any chest pain or sob ambulating. He states that he was supposed to see cardiology last week, but not able to see and so that is the reason he got worried and came to the hospital today, but as his labs and EKG look okay, he wanted to go home, but then later agreed to stay. Admission Exam Per Admitting Provider GENERAL: The patient is of moderate build, not in acute distress. VITAL SIGNS: Temperature 36.7, pulse 58, respiratory rate 22, blood pressure 141/89, oxygen 98% on room air. HEENT: Pupils equal, round and reactive to light. Oral mucosa moist. NECK: No JVD. No neck masses. CARDIOVASCULAR: S1 and S2 heard. Regular rate and rhythm. No murmur, no gallop. RESPIRATORY SYSTEM: Normal AP diameter. No accessory muscle use. No wheezing, crackles. ABDOMEN: Soft, bowel sounds present. Mild diffuse tenderness. No guarding. No rigidity. No distention. CENTRAL NERVOUS SYSTEM: Cranial nerves II through XII grossly intact. Nonfocal. EXTREMITIES: No edema, no erythema. Principal Diagnosis Chest pain, ACS ruled out Recurrent pancreatitis. Discharge Exam Constitutional: WD/WN, vitals as above, NAD, sitting up in bed, pleasant, conversing easily Respiratory: normal respiratory effort, lungs clear to auscultation, no wheeze, rales, rhonchi. Normal insp/exp effort, no accessory muscle use Cardiovascular: RRR, no murmur, no edema Vessels: no JVD or carotid bruit Chest: normal inspection of chest Abdomen: normal bowel sounds, soft, nontender, no hepatosplenomegaly Musculoskeletal: no cyanosis or clubbing, extremities motor strength 5/5 Skin: no rashes, warm and dry normal turgor Neurologic: PERRL, EOMI, accommodation nl, no face palsy, no dysarthria CN's II- XI intact bilaterally and moves all extremities Psychiatric: A+Ox3, euthymic affect Lymphatic: no cervical or axillary lymphadenopathy : deferred Discharge Data Allergies Allergy/AdvReac Type Severity Reaction Status Date / Time No Known Allergies Allergy Verified 02/08/23 17:45 Consultations 02/09/23 08:00 Consult Cardiology Routine Ordered Studies 02/08/23 16:33 CT Abd and Pelvis [CT abd pelvis IV con only] Stat Hospital Course (1) Chest pain: (2) CAD (coronary artery disease): (3) Sinus bradycardia: (4) Chronic pancreatitis: (5) HLD (hyperlipidemia): (6) RADHA (generalized anxiety disorder): Plan Patient is a 52-year-old male with history of CAD; most recent intervention was in left circumflex into the posterolateral branch due to acute occlusion, 09/2022. Presented with on and off chest pain for several days. Symptoms limited by nitro High sensitive troponin on admission negative. EKG personally reviewed sinus bradycardia; QTc of 383. Telemetry during the hospitalization showed sinus bradycardia; no arrhythmias or pauses. Cardiology evaluated him during the hospitalization. Patient underwent exercise induced nuclear stress test. It was negative for inducible ischemia. It showed fixed inferior perfusion defect. Cardiology cleared the patient for discharge. All the medication was resumed at discharge. Please note the above document was generated using voice recognition software. It may contain grammatical, syntax or spelling errors. Any formal questions or concerns about the content, text or information contained within the body of this dictation should be directly addressed to the provider for clarification Total Time Total Time Spent Total Time Spent (In Minutes): 40 Discharge Plan Discharge Items Patient Disposition: Home - Self-Care Reason For Visit: CHEST PAIN Discharge Diagnosis: Chest pain, ACS ruled out. History of recurrent pancreatitis Activity: Resume your previous activity Non-emergency contact: Primary Care Provider Call non-emergency contact if: you have any medication questions and your symptoms worsen Follow-up/Referrals: Wade Bragg MD [Primary Care Provider] - (Date & Time 02/15/2023 11:00 AM Provider Wade Bragg MD Department [facility] ) Diet: Low Fat Addtl Attending Provider Instructions: You were admitted to the hospital with chest pain. Evaluation was done by cardiology during the hospitalization. You underwent exercise nuclear test which was negative for ischemia. Please continue to take your medication as prescribed before. Please follow-up with PCP as scheduled. Pending Studies at Discharge: No Stand-Alone Forms: My [facility], Smoking Cessation Medications and DC Order Prescriptions: Continued aspirin 81 mg tablet,delayed release (DR/EC) 81 mg PO QAM sertraline [Zoloft] 50 mg tablet 50 mg PO QAM nitroglycerin [Nitrostat] 0.4 mg tablet, sublingual 0.4 mg Sublingual UD PRN (Reason: Chest Pain) famotidine 40 mg tablet 40 mg PO HS dicyclomine 10 mg capsule 10 mg PO BID PRN (Reason: Abdominal Pain) ezetimibe 10 mg tablet 10 mg PO QAM magnesium oxide 400 mg magnesium Tablet 400 mg PO QAM pantoprazole 40 mg tablet,delayed release (DR/EC) 40 mg PO QAM rosuvastatin 40 mg Tablet 40 mg PO DAILY metoprolol succinate 25 mg Tablet Extended Release 24 Hr 25 mg PO DAILY Brilinta 90 mg Tablet 90 mg PO BID 30 Days Qty: 60 2RF Discharge Orders: Discharge Order (Routine); Ordered 02/10/23 Ordered By: Lukas Santos Admission Data Admit Date/Time: 02/08/23 20:28 Attending Provider: Lukas Santos Admit Provider: Rosales Singh Primary Care Provider: Wade Bragg Other Providers: Herb Tamez
== END 2023-02-10 17:00 | disposition home or self-care (01) ==
LOC: ED 15:54 → 4W 15:54 → SUATTDRO 20:28 → 4W 22:06

== ENCOUNTER 2023-05-20 10:44 | Inpatient (IN) ==
[~2023-05-20 10:44] MED LIST changes: +ATROPINE SULFATE 0.1 MG/ML 5ML SYR IV ONE; +HEPARIN (PORCINE) 1000 UNIT/ML 10 ML (CATH LAB USE ONLY) ONE; +MIDAZOLAM HCL 1 MG/ML 2ML VIAL ONE; +NITROGLYCERIN/D5W 100MCG/ML 20ML SYR ONE; -OMEP40CA PO; +SODIUM CHLORIDE 0.9% 500 ML IV STA; +fentaNYL citrate PF 100 MCG/2 ML VIAL ONE; +niCARdipine HCL INJ 2.5 MG/ML 10 ML AMP ONE
[2023-05-20] MEDS ORDERED: ONDANSETRON INJ 2 MG/ML 2 ML VIAL IV STA (10:48)
[2023-05-20] MEDS ORDERED: fentaNYL citrate PF 100 MCG/2 ML VIAL IV PRN (10:48)
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
[2023-05-20 11:01] LABS: Basophils # (auto) 0.09 K/uL (0-0.2); Eosinophils # (auto) 0.18 K/uL (0-0.50); Eosinophils % (auto) 2.1 %; Hematocrit (blood only) 38.6 % (42.0-52.0); Hemoglobin 13.7 g/dl (14.0-18.0); Immature Granulocytes # (auto) 0.03 K/uL (0.01-0.20); Immature Granulocytes % (auto) 0.3 %; Lymphocytes % (auto) 28.7 %; Mean Corpuscular Hemoglobin 34.4 pg (25.0-34.0); Mean Corpuscular Hgb Conc 35.5 g/dL (32.0-36.0); Mean Platelet Volume 8.7 fL (9.4-12.4); Monocytes # (auto) 0.58 K/uL (0.11-0.59); Monocytes % (auto) 6.7 %; Neutrophils # (auto) 5.32 K/uL (1.40-6.50); Neutrophils % (auto) 61.2 %; Platelet Count 207 K/uL (130-400); RDW Coefficient of Variation 13.4 % (11.5-14.5); RDW Standard Deviation 48.3 fL (36.4-46.3); Red Blood Count 3.98 M/uL (4.70-6.10)
[2023-05-20] MEDS ORDERED: DOPamine 400MG / 250ML D5W (Cath Lab Use ONLY) IV ONE (11:01)
[2023-05-20] MEDS ORDERED: PHENYLEPHRINE HCL INJ 10 MG/ML VIAL (CATH LAB USE ONLY) ONE (11:13)
[2023-05-20 11:14] LABS: Partial Thromboplastin Ratio 0.9; Partial Thromboplastin Time 24.7 Seconds (21.0-31.0); Prothrombin Time 10.9 Seconds (9.0-12.0)
[2023-05-20 11:23] LABS: Albumin Globulin Ratio 1.9 (0.9-2); Albumin Level 3.9 gm/dl (3.4-5.0); BUN Creatinine Ratio 9.4 (10-20); Bilirubin,Total 0.5 mg/dl (0.2-1.0); Calcium 8.4 mg/dl (8.6-10.3); Creatinine Clr Calc Pharmacy 68.3 ml/min; Est GFR (Non-African American) 70.8 ml/min; Globulin 2.1 gm/dl (2.5-4.0); Potassium 3.7 mmol/L (3.5-5.1)
[2023-05-20 11:29] LABS: Troponin I High Sensitivity 15.1 pg/ml (0-20)
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
[2023-05-20] MEDS ORDERED: PHENYLEPHRINE HCL 25 MG/250 ML NSS IV ONE (12:17)
[2023-05-20] MEDS ORDERED: HEPARIN 25000 UNIT/500 ML D5W IV ONE (12:21)
[2023-05-20] MEDS ORDERED: ONDANSETRON INJ 2 MG/ML 2 ML VIAL IV PRN (12:35)
[2023-05-20] MEDS ORDERED: Heparin IV Adult Wt-Based Standard *NO* Bolus Protocol IV SCH (12:45)
--- NOTE | 2023-05-20 12:46 | Pre Anesthesia Assessment ---
Date of Service May 20, 2023 Pre Sedation Assessment Vital Signs Temp Pulse Resp BP Pulse Ox O2 Del Method 05/20/23 11:02 Room Air 05/20/23 10:42 36.4 C L 45 L 22 97/56 L 99 Room Air 05/20/23 10:54 62 Cardiovascular RRR, no murmur, no edema (bradycardia, mild hypotension) Respiratory normal respiratory effort, lungs clear to auscultation Pre-Sedation Airway Assessment Smoking Status: Current every day smoker Hx Sleep Apnea: No Hx Difficult Intubation: No mallampati 2 ASA 4 Notes The planned sedation has been discussed with the patient. Informed Consent was obtained. I have identified the patient, determined the appropriateness of sedation and have assessed the patient immediately prior to the procedure. All medicine(s) and interventions are by my order.
--- NOTE | 2023-05-20 12:49 | Post Anesthesia Assessment ---
Date of Service May 20, 2023 Post Sedation Assessment Vital Signs Temp Pulse Resp BP Pulse Ox O2 Del Method 05/20/23 11:02 Room Air 05/20/23 10:42 36.4 C L 45 L 22 97/56 L 99 Room Air 05/20/23 10:54 62 Recovery Score Activity: Moves 4 extremities Respiration: Deep Breath/Cough Circulation: +/-20% PreAnes Value Consciousness: Fully Awake Oxygen Saturation: > 92% On Room Air Discharge Sedation Level of Care: Fast Track Phase II Post Sedation Plan On clinical assessment, the patient appears to have tolerated the sedation without complications. Patient is recovering as anticipated. Patient will continue to be monitored by nursing and may be discharged when sedation discharge criteria are met per below protocol. Upon Completions of procedure up to 15 minutes continue every 5 minute vital signs and the P.A.R. score; then discharge to a Phase I or Fast Track to Phase II per the following guidelines: * Discharge Patient to appropriate Phase II area if PAR is 8 or greater or return to pre- procedure baseline. The post - procedure orders will be as directed. * If PAR score is less than 8 or not return to pre-procedure baseline then patient will follow Phase I monitoring till PAR is reached for Phase II. The Phase I may be done in procedure room or may call to secure a Phase I area. * If naloxone or flumazenil are used for reversal, hold in Phase I for continued monitoring from when last reversal dose was given for a minimum of 60 minutes or longer pending the nurse and/or physician discretion of patient condition before discharge to Phase II. Please call the Sedation Physician to re-evaluate and complete post-note for discharge to Phase II area. Do NOT discharge from procedure sedation or Phase 1 until post- sedation evaluation note is complete by procedure /sedation MD Sedation Discharge Instructions to be given to the patient at discharge to home. [facility] Procedure Codes (Charges) Indication for Procedure Indication for procedure: STEMI Sedation/Anesthesia Procedure 1: Sedation/Anesthesia: 74239 Mod Sedation by the same physician;Init15 Min Child Age 5 & Up (initial 15 min, start 1106) Total Sedation Time (minutes): 79 Procedure 2: Sedation/Anesthesia: 09903 Mod Sedation by the same physician; Ea [id number] Minutes (additional 64 min, end 1225)
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
[2023-05-20 13:46] LABS: Magnesium 1.6 mg/dl (1.7-2.4)
[2023-05-20] MEDS: SODIUM CHLORIDE 0.9% 1000ML 1,000 ML IV SCH ×2 (14:19→21:53)
[2023-05-20] MEDS: HEPARIN SODIUM/DEXTROSE 25,000 UNITS/500 ML BAG IV SCH (14:20)
--- NOTE | 2023-05-20 15:05 | Billing Data ---
Date of Service May 20, 2023 Coding Level of Care Code 20799 IN/OBS CONSULT LVL 3,45M
[2023-05-20] MEDS ORDERED: STAT IV Infusion **Titration per Protocol STA (15:19)
[2023-05-20] MEDS: PHENYLEPHRINE/NSS 25 MG/250 ML BAG IV SCH ×2 (15:55→23:38)
--- NOTE | 2023-05-20 16:35 | Cardiac Catheterization ---
ACC Data: [facility] Cardiac Status Clinical evaluation leading to the procedure CAD Presenation: STEMI Anginal Classification: CCS IV Heart Failure: No Cardiogenic Shock within 24 Hours: Yes Cardiac Arrest within 24 Hours: No Imaging Studies Past 6 Months: No Stress Studies Past 6 Months: No STEMI OR Non-STEMI Symptom Onset Date: 05/20/23 Symptom Onset Time: 12:00 Thrombolytics: No Coronary Anatomy Dominant: Co-Dominant Left Main (% Stenosis): Normal LAD (% Stenosis): Ostial (40 to 50%) and Proximal (50 to 70%) D1 (% Stenosis): Normal Circumflex (% Stenosis): Proximal (100% just before ostium of OM) RCA (% Stenosis): Proximal (Stent patent, less than 10% in-stent restenosis), Mid (Diffuse mild) and Distal (Stent patent) R PDA (% Stenosis): Normal R PL1 (% Stenosis): Normal Diagnostic Physicians Name: Herb Castellano MD, PhD Closure Device Percutaneous Entry Location: Femoral Closure Device: Angio-Seal Recommendations: Medical Therapy and/or Counseling and PCI without planned CABG PCI Indication: PCI for STEMI - Unstable First Noted: First EKG Lesion Segment Name: Proximal circumflex to OM1 Culprit Artery: Yes Stenosis Prior to Rx (%): 100% Chronic Total Occlusion: No Pre-Procedure ROBIN Flow: 0 Previously Treated Lesion: No Lesion Complexity: High/C Lesion Length (mm): 12 Thrombus Present: Yes Bifurcation Lesion: Yes Guidewire Across Lesion: Yes Lesion #2 Segment Name: Mid circumflex stent train Culprit Artery: Yes Stenosis Prior to Rx (%): 100% Chronic Total Occlusion: No Pre-Procedure ROBIN Flow: 0 Previously Treated Lesion: Yes Timeframe: 6-12 months (Most recent, prior stent drain placed 1 year plus) Lesion Complexity: High/C Lesion Length (mm): 40 mm Thrombus Present: Yes Bifurcation Lesion: Yes Guidewire Across Lesion: No Intraprocedure Events Significant Disection: No Perforation: No Cardiac Cath Procedure Full Procedure Date May 20, 2023 Pre-Procedure Diagnosis Pre-Procedure Diagnosis: STEMI AUC Score AUC Score: 09 Post-Procedure Diagnosis Post-Procedure Diagnosis: Severe CAD and Successful PCI Procedure(s) Performed Procedure(s) Performed: Coronary Angiography, Aspiration Thrombectomy, Drug Eluting Stent and Ultrasound Guided Vascular Access Rn Charge Herb Castellano MD, PhD Estimated Blood Loss Estimated Blood Loss: 15 ml Medication(s) Medication(s): Atropine, Diphenhydramine, Dopamine, Heparin, Lidocaine 1%, Armaan- Synephrine and Versed Summary of Findings Brief description: Patient was brought to the cardiac catheterization suite where he was shaved and prepped in a sterile fashion. Sedated with IV Benadryl and Versed. Soft tissues of the right groin were anesthetized using 10 mL of 1% Xylocaine. Using the ultrasound for guidance (image saved), the right femoral artery was accessed and a 6 Bh[place]anese femoral artery sheath was placed. All catheters were advanced and exchanged over a 0.035 J-tip wire. Because of hypotension and bradycardia the patient was given atropine IV and initially was to receive dopamine but because of tachycardia this was changed to Armaan-Synephrine. He had an improvement in his hemodynamics and these were continued as needed throughout the case. Right coronary angiography was performed in orthogonal views with a 6 [place] JR4 guide catheter. Left coronary angiography was performed in orthogonal views with a 6 [place] EBU 3.5 guide catheter. We decided to proceed with PCI. Patient was provided IV heparin. The ACT was checked intermittently and additional heparin was provided as needed to maintain therapeutic anticoagulation. Using the EBU 3.5 guide catheter, a BMW universal guidewire was advanced and under fluoroscopic guidance was positioned distal to the occlusion into the large obtuse marginal branch. A Pronto LP aspiration catheter was advanced over the guidewire and aspiration coronary thrombectomy was performed in the circumflex into the obtuse marginal branch. The aspiration catheter was removed and angiography was performed. A 2.5 x 12 mm PTCA balloon was advanced over the guidewire and positioned across the lesion in the circumflex extending into the large OM branch. This was p redilated up to 8 licha. A Prowater coronary guidewire was advanced through the guide catheter and attempts to cross the occluded AV groove circumflex which had a long stent train and a sharp angle to navigate. This was unsuccessful therefore the PTCA balloon was inflated to only 4 licha at the ostium of the OM. This was to act as a "wall" to help deflect the guidewire down the AV groove vessel. Unfortunately, this technique was unsuccessful. The balloon was deflated. A telescope guide catheter support was advanced over both wires. We again attempted to use this backup support to pass the Prowater wire into the AV groove circumflex across the stent train but this was unsuccessful. The Prowater guidewire and telescope were removed. We next advanced a run-through guidewire into the same level but were unable to pass it beyond the obstacle. The telescope was then reinserted over both wires. We were then able to advance the run-through wire into the AV groove circumflex and positioned distally in the stent train. The telescope was removed. The balloon on the BMW universal guidewire was removed as well. A 2.0 x 12 mm balloon was then advanced over the run-through wire but could not pass struts in stent train. We therefore abandon further attempts at PCI to this portion of the occluded vessel. The telescope and run-through wire were removed. Over the BMW wire a 2.5 x 12 mm balloon was advanced and inflated twice up to 10 licha. This resulted in significant him improvement in flow down the OM as well as resolution of chest pain and improvement in ST elevations. We next implanted a 3.0 x 15 mm patria point drug-eluting stent extending from the AV groove circumflex across the ostium of the obtuse marginal and into the proximal portion of the obtuse marginal. This was deployed at 18 licha. Stent balloon was removed and production troubleshooter angiography was performed. The stent was postdilated using a 3.25 x 12 mm noncompliant balloon positioned with its proximal edge at the proximal stent edge and inflated initially at 16 licha followed by a second 18 licha inflation. Stent balloon was removed. A final attempt to pass the guidewire across the newly implanted stent struts into the old stent train was unsuccessful. Guidewire was removed. Final angiographic evaluation was performed. Guide catheter was removed. Limited femoral artery angiography was performed to evaluate for closure. Findings were favorable, therefore, the femoral artery sheath was exchanged for a 6 Bhutanese Angio-Seal closure device. This was deployed in the recommended fashion. We obtained immediate hemostasis and the patient remained hemodynamically stable. He reported no further chest pain and was returned to the recovery area. This ended the case. Coronary angiography findings: [id number] vessel which trifurcates into LAD, circumflex, and ramus. Has no angiographically significant disease. LAD- This is large caliber and transapical. It has diffuse disease including ostial 40 to 50% stenosis, proximal 50 to 70% stenosis, the mid and distal vessel have no significant disease. The diagonal has mild luminal irregularities. LCx-large caliber and probably codominant. Proximal segment with diffuse mild disease. It is then 100% occluded with ROBIN 0 flow occurring just before the ostium of the large OM and mid AV groove vessel. There is a long stent train which is occluded extending through the mid to distal circumflex and also involving a branch stent. Ramus-small to medium caliber without significant disease [id number] and probably codominant. Proximal stent is widely patent with less than 10% in-stent restenosis. The mid vessel is with diffuse mild disease. The distal vessel has a previously placed stent and there is a step up to the stent which has no more than mild luminal irregularities. The vessel then bifurcates into a large PDA which has no disease and a small posterolateral branch without disease. PCI of circumflex/OM 0% residual stenosis in the circumflex to OM stented area. The OM trifurcates into 3 large branches which have diffuse mild disease. ROBIN-3 flow in the OM. The mid AV groove circumflex, long stent train and sidebranch stent remain 100% occluded with ROBIN 0 flow. Unable to pass balloons or stents into this segment. Summary: 1. Acute ST elevation TX secondary to thrombosis of the prior stent train and involvement of the previously untreated large OM1. 2. Moderate coronary disease in the LAD. 3. Patent stents in the RCA 4. Successful PCI of the AV groove circumflex into the large trifurcating OM1 with implantation of a large caliber drug-eluting stent. 5. Unsuccessful attempt to reopen the previously placed long stent train in the mid to distal AV groove circumflex and a branch of that vessel. Note: Patient had a previous episode of stent thrombosis in the long stent train on his prior catheterization in September 2022. At that time it was noted that it was unlikely that there would be long-term patency because of poor myocardial blush. 6. Patient will remain on dual antiplatelet therapy with aspirin and Brilinta. We will also keep him on heparin drip for 24 hours in hopes that the stent train may recanalize if the thrombus breaks down. Hemodynamics Rest Ao:: 97/75 mmHg Final Ao: 99/71 mmHg LV: Not performed Recommendations Recommendations: Medical Therapy and/or Counseling and PCI without planned CABG Radiation Exposure (mGy) 2647 mGy, fluoroscopy time 23.2 minutes Contrast (mls) 163 mL Anesthesia 1 mg IV Versed, 25 mg IV Benadryl (start time 1106, end time 1225) Procedural Complication(s) None Disposition ICU I attest to the content of the Intraoperative Record and any orders documented therein. Any exceptions are noted below. [facility] Card Cath Procedure Codes Cardiac Catheterization Procedure 1: Cardiovascular Cath Procedures: 73202 Coronaries Therapeutic Services & Ancillary Procedure 1: Cardiovascular Tx and Anc Procedures: 18036 Perc Coronary Thrombectomy Procedure 2: Cardiovascular Tx and Anc Procedures: 10538 Ultrasonic Guidance Vascular Access Moderate Sedation Procedure 1: Sedation/Anesthesia: 41195 Mod Sedation by the same physician;Init15 Min Child Age 5 & Up (Initial 15 min, start time 1106) Procedure 2: Sedation/Anesthesia: 37114 Mod Sedation by the same physician; Ea [id number] Minutes (Additional 64 min, end time 1225) Stenting Procedure 1: Cardiovascular Stent Procedures: 38931 [facility] transluminal revascularization of acute sub/total occl, aMI (LCx-OM) PG Care Time/CCT Total # of Minutes Spent Total Time Spent with Patient: Total time spent is greater than 50% in coordination of care (as documented) at patient's floor/unit and/or counseling patient:
--- NOTE | 2023-05-20 17:03 | Electrocardiogram Report ---
Test Reason : Blood Pressure : / mmHG Vent. Rate : 051 BPM Atrial Rate : 051 BPM P-R Int : 106 ms QRS Dur : 094 ms QT Int : 424 ms P-R-T Axes : 040 047 061 degrees QTc Int : 390 ms Sinus bradycardia with sinus arrhythmia with short AL Possible Lateral infarct , age undetermined Inferior-posterior infarct , possibly acute ACUTE [place] / STEMI Consider right ventricular involvement in acute inferior infarct Abnormal ECG When compared with ECG of 10-FEB-2023 04:59, Borderline criteria for Lateral infarct are now Present No significant change was found Confirmed by Dariel Parada ([id number]) on 05/20/2023 5:03:22 PM Referred By: REFERRED SELF Confirmed By:Johnny Parada
--- NOTE | 2023-05-20 17:05 | Electrocardiogram Report ---
Test Reason : Blood Pressure : / mmHG Vent. Rate : 060 BPM Atrial Rate : 060 BPM P-R Int : 136 ms QRS Dur : 092 ms QT Int : 382 ms P-R-T Axes : 054 -08 031 degrees QTc Int : 382 ms Sinus rhythm with Premature atrial complexes Inferior-posterior infarct (cited on or before 20-MAY-2023) ACUTE NE / STEMI Abnormal ECG When compared with ECG of 20-MAY-2023 10:49, (unconfirmed) Premature atrial complexes are now Present Serial changes of Inferior-posterior infarct Present Confirmed by Dariel Parada ([id number]) on 05/20/2023 5:04:34 PM Referred By: REFERRED SELF Confirmed By:Johnny Parada
[2023-05-20] MEDS: ICU Protocol for HYPERglycemia SCH ×2 (18:10→21:00)
[2023-05-20] MEDS: ICU ELECTROLYTE REPLACEMENT PROTOCOL SCH (18:10)
[2023-05-20] MEDS: TICAGRELOR 90 MG TAB PO SCH (20:02)
[2023-05-20] MEDS ORDERED: MoRPHine SULFATE 2 MG/ML CARP IV STA (20:04)
[2023-05-20 21:48] LABS: Basophils # (auto) 0.11 K/uL (0-0.2); Basophils % (auto) 1.1 %; Eosinophils # (auto) 0.06 K/uL (0-0.50); Eosinophils % (auto) 0.6 %; Hematocrit (blood only) 37.2 % (42.0-52.0); Hemoglobin 13.2 g/dl (14.0-18.0); Immature Granulocytes # (auto) 0.13 K/uL (0.01-0.20); Immature Granulocytes % (auto) 1.3 %; Lymphocytes # (auto) 2.59 K/uL (1.2-3.4); Lymphocytes % (auto) 25.3 %; Mean Corpuscular Hemoglobin 33.8 pg (25.0-34.0); Mean Corpuscular Hgb Conc 35.5 g/dL (32.0-36.0); Mean Corpuscular Volume 95.1 fL (80.0-100.0); Mean Platelet Volume 9.3 fL (9.4-12.4); Monocytes # (auto) 0.73 K/uL (0.11-0.59); Monocytes % (auto) 7.1 %; Neutrophils # (auto) 6.63 K/uL (1.40-6.50); Neutrophils % (auto) 64.6 %; Platelet Count 231 K/uL (130-400); RDW Coefficient of Variation 13.5 % (11.5-14.5); RDW Standard Deviation 47.4 fL (36.4-46.3); Red Blood Count 3.91 M/uL (4.70-6.10); White Blood Count 10.25 K/ul (4.8-10.8)
[2023-05-20] MEDS: METOPROLOL TARTRATE 25 MG TAB PO SCH (22:06)
[2023-05-20 23:41] LABS: Partial Thromboplastin Ratio 4.8
[2023-05-21 00:05] LABS: Partial Thromboplastin Time 135.8 Seconds (21.0-31.0)
[2023-05-21 04:38] LABS: Magnesium 1.7 mg/dl (1.7-2.4); Potassium 3.7 mmol/L (3.5-5.1)
[2023-05-21 04:43] LABS: BUN Creatinine Ratio 10.6 (10-20); Creatinine Clr Calc Pharmacy 60.4 ml/min; Est GFR (African American) 77.2 ml/min; Est GFR (Non-African American) 66.6 ml/min; Phosphorus 2.8 mg/dl (2.5-4.9)
--- NOTE | 2023-05-21 06:54 | Cardiology Progress Note ---
Date of Service May 21, 2023 Assessment & Plan (1) ST elevation myocardial infarction (STEMI): (2) CAD (coronary artery disease): (3) HLD (hyperlipidemia): (4) Tobacco abuse: Plan Please refer to physician addendum for further information and full plan of care. Admission and Anticipated Discharge Date Admission Date: May 20, 2023 Supervising Physician Co-Signing Physician Notes Attending Staff: Pt seen with [facility] staff. Concur with observations and plans 52 yo man presenting with STEMI LCX territory infarction S/P PCI Patient with long-standing CAD Premature CAD No clear CHF or mechanical complications Plans for: * Continue DAPT * Currently on Levophed for pressor support- goal map 65 mmHg - please wean as tolerated to off * Plans for PICC line placement for Levophed dosing * Once PICC is in place, please check a central venous blood gas * Check Lactate * No evidence of heart failure on examination * Continue Statin * Will check LP(a) and Apoliprotein B given premature CAD * LDL 51 * May need to add [id number] given extremely aggressive CAD * ECHO - LVEF 25-20%, LVH, LCX territory infarction. * End-organs appear to be perfusing well * No immediate move towards mechanical circulatory support * GDMT consideration once pressors are no longer needed * Explained to patient that if hemodynamics worsen, we would quickly transfer to a center that provides Advanced Cardiac Support/LVAD/ECMO ([facility]) Tavo Giron Subjective 52-year-old male with longstanding history of premature coronary artery disease presented to [facility] emergency department yesterday 05/20/2023 due to chest discomfort. EKG showing ST segment elevation and heart alert was called. Patient underwent cardiac catheterization. Culprit lesion secondary to thrombus of the prior stent train in the left circumflex and with involvement of previously untreated large OM1. Successful PCI of the AV groove circumflex into the large trifurcating OM1 with implantation of a large caliber drug-eluting stent. Unsuccessful attempt to reopen the previously placed long stent train in the mid to distal AV groove circumflex and a branch of that vessel. Note: Patient had a previous episode of stent thrombosis in the long stent train on his prior catheterization in September 2022. At that time it was noted that it was unlikely that there would be long-term patency because of poor myocardial blush. Moderate coronary disease in the LAD with patent stents in the RCA. Cardiac catheterization 05/20/2023 Coronary Anatomy Dominant: Co-Dominant Left Main (% Stenosis): Normal LAD (% Stenosis): Ostial (40 to 50%) and Proximal (50 to 70%) D1 (% Stenosis): Normal Circumflex (% Stenosis): Proximal (100% just before ostium of OM) RCA (% Stenosis): Proximal (Stent patent, less than 10% in-stent restenosis), Mid (Diffuse mild) and Distal (Stent patent) R PDA (% Stenosis): Normal R PL1 (% Stenosis): Normal An echocardiogram was obtained post cath (05/20/2023) showing a new severely reduced LV ejection fraction of 25 to 30% (previously 50 to 55%). A large size posterior, inferior, inferior septal wall motion abnormality was noted. The posterior wall was akinetic in the inferior wall and inferior septal wall were hypokinetic. Events Overnight: * Started on Neosynephrine transiently * Transition to Levophed * MAP now around 80 mmHg * No chest pain reported Review of Systems Review of Systems: All systems reviewed & are unremarkable except as noted in HPI & below Physical Exam Physical Exam: Thin man in NAD No elevation in JVP S4 S1S2 Soft 2/6 systolic murmur CTA B on anterior exam Right groin - no hematoma Legs - no c/c/e No evidence of mechanical complications or CHF Constitutional: no acute distress Eyes: PERRL, conjunctivae normal, anicteric sclerae ENMT: external ear and nose normal, oropharynx normal Neck: normal visual inspection and trachea midline Respiratory: normal respiratory effort, lungs clear to auscultation Cardiovascular: RRR, no murmur, no edema Rate/Rhythm: + tachycardic Heart Sounds: normal S1 and normal S2; no murmur Vessels: femoral pulses present (Right groin site clean without evidence of hematoma) and radial pulses present; no JVD Extremities: no edema Gastrointestinal (Abdomen): normal bowel sounds, soft, nontender, no hepatosplenomegaly Skin: no rashes, warm and dry Psychiatric: A+Ox3, euthymic affect Results & Data Vital Signs (Past 12 Hours) Vital Signs Temp Pulse Pulse Resp BP BP Pulse Ox 05/21/23 02:00 49 L 18 95 05/21/23 02:00 90/63 L 05/21/23 01:45 48 L 18 94 05/21/23 01:30 45 L 15 94 05/21/23 01:30 94/64 L 05/21/23 01:15 49 L 12 96 05/21/23 01:00 43 L 13 94 05/21/23 01:00 96/64 L 05/21/23 00:45 45 L 97 05/21/23 00:30 50 L 20 96 05/21/23 00:30 91/61 L 05/21/23 00:15 52 L 20 95 05/21/23 00:00 44 L 20 96 05/21/23 00:00 101/67 05/20/23 23:45 47 L 18 96 05/20/23 23:37 93/64 L 05/20/23 23:37 50 L 17 95 05/20/23 23:30 47 L 20 96 05/20/23 23:30 99/64 L 05/20/23 23:15 47 L 14 97 05/21/23 02:00 48 L 22 90/63 L 94 05/21/23 01:00 43 L 12 96/64 L 94 05/21/23 00:00 36.8 C 47 L 12 101/67 98 05/21/23 00:14 51 L 05/20/23 23:00 47 L 15 103/69 96 05/20/23 23:00 46 L 21 92 05/20/23 23:00 103/69 05/20/23 22:45 43 L 13 97 05/20/23 22:30 51 L 22 96 05/20/23 22:30 85/60 L 05/20/23 22:15 52 L 15 95 05/20/23 22:00 49 L 23 95 05/20/23 21:56 48 L 18 94 05/20/23 21:56 86/58 L 05/20/23 21:45 50 L 19 94 05/20/23 21:30 51 L 22 92 05/20/23 21:30 97/60 L 05/20/23 21:15 47 L 19 95 05/20/23 21:00 51 L 25 H 94 05/20/23 21:00 91/63 L 05/20/23 20:45 56 L 29 H 94 05/20/23 20:31 68 18 94 05/20/23 20:31 90/65 L 05/20/23 20:30 62 20 95 05/20/23 20:15 56 L 28 H 95 05/20/23 20:00 55 L 21 05/20/23 20:00 96/62 L 05/20/23 19:45 52 L 25 H 95 05/20/23 19:30 60 22 05/20/23 19:30 93/65 L 05/20/23 19:15 51 L 23 95 05/20/23 19:00 54 L 23 05/20/23 19:00 111/69 05/20/23 18:45 57 L 26 H 94 05/20/23 20:00 05/20/23 22:00 52 L 24 85/60 L 94 05/20/23 21:00 51 L 24 91/63 L 94 05/20/23 20:00 36.6 C 55 L 22 96/62 L 95 O2 Del Method 05/21/23 02:00 05/21/23 02:00 05/21/23 01:45 05/21/23 01:30 05/21/23 01:30 05/21/23 01:15 05/21/23 01:00 05/21/23 01:00 05/21/23 00:45 05/21/23 00:30 05/21/23 00:30 05/21/23 00:15 05/21/23 00:00 05/21/23 00:00 05/20/23 23:45 05/20/23 23:37 05/20/23 23:37 05/20/23 23:30 05/20/23 23:30 05/20/23 23:15 05/21/23 02:00 Room Air 05/21/23 01:00 Room Air 05/21/23 00:00 Room Air 05/21/23 00:14 05/20/23 23:00 Room Air 05/20/23 23:00 05/20/23 23:00 05/20/23 22:45 05/20/23 22:30 05/20/23 22:30 05/20/23 22:15 05/20/23 22:00 05/20/23 21:56 05/20/23 21:56 05/20/23 21:45 05/20/23 21:30 05/20/23 21:30 05/20/23 21:15 05/20/23 21:00 05/20/23 21:00 05/20/23 20:45 05/20/23 20:31 05/20/23 20:31 05/20/23 20:30 05/20/23 20:15 05/20/23 20:00 05/20/23 20:00 05/20/23 19:45 05/20/23 19:30 05/20/23 19:30 05/20/23 19:15 05/20/23 19:00 05/20/23 19:00 05/20/23 18:45 05/20/23 20:00 Room Air 05/20/23 22:00 Room Air 05/20/23 21:00 Room Air 05/20/23 20:00 Room Air Laboratory Results Cardiac Enzymes 05/20/23 05/20/23 05/21/23 Range/Units 10:51 20:52 03:01 AST 21 (13-39) U/L Troponin I High Sens 15.1 94696.0 H* D 59372.4 H* (0-20) pg/ml 05/21/23 Range/Units 08:07 AST (13-39) U/L Troponin I High Sens 58878.0 H* D (0-20) pg/ml Coagulation 05/20/23 05/20/23 05/20/23 Range/Units 10:51 20:52 22:28 PT 10.9 (9.0-12.0) Seconds APTT 24.7 Cancelled 135.8 H* (21.0-31.0) Seconds 05/21/23 Range/Units 08:07 PT (9.0-12.0) Seconds APTT 67.0 H* (21.0-31.0) Seconds CBC 05/20/23 05/20/23 Range/Units 10:51 20:52 WBC 8.70 10.25 (4.8-10.8) K/ul RBC 3.98 L 3.91 L (4.70-6.10) M/uL Hgb 13.7 L 13.2 L (14.0-18.0) g/dl Hct 38.6 L 37.2 L (42.0-52.0) % Plt Count 207 231 (130-400) K/uL Neut # (Auto) 5.32 6.63 H (1.40-6.50) K/uL Lymph # (Auto) 2.50 2.59 (1.2-3.4) K/uL [place] # (Auto) 0.58 0.73 H (0.11-0.59) K/uL Eos # (Auto) 0.18 0.06 (0-0.50) K/uL Baso # (Auto) 0.09 0.11 (0-0.2) K/uL Comprehensive Metabolic Panel 05/20/23 05/21/23 Range/Units 10:51 03:01 Sodium 136 136 (136-145) mmol/L Potassium 3.7 3.7 (3.5-5.1) mmol/L Chloride 109 H 110 H (98-107) mmol/L Carbon Dioxide 23 20 L (21-32) mmol/L BUN 11 13 (6-23) mg/dl Creatinine 1.17 1.23 (0.6-1.4) mg/dl Glucose 143 H 111 H (70-99(Fasting)) mg/dl Calcium 8.4 L 8.0 L (8.6-10.3) mg/dl AST 21 (13-39) U/L ALT 20 (7-52) U/L Alkaline Phosphatase 43 (34-104) U/L Total Protein 6.0 (6.0-8.3) gm/dl Albumin 3.9 (3.4-5.0) gm/dl Intake and Output 05/20/23 05/21/23 05/21/23 22:59 06:59 14:59 Intake Total 1080.334 / 2252.867 172.533 / 2252.867 1397.303 / 1397.303 Output Total 950 / 950 710 / 710 Balance 130.334 / 1302.867 172.533 / 1302.867 687.303 / 687.303 Intake: IV 960.334 / 2132.867 172.533 / 2132.867 1397.303 / 1397.303 Heparin Sodium/Dextrose 25,000 112 / 234.4 122.4 / 234.4 149.784 / 149.784 units In 500 ml @ 950 UNITS/HR 19 mls/hr IV .Q24H [facility] Rx#: [id number] Magnesium Sulfate / D5w 1 gm In 100 / 100 100 ml @ 50 mls/hr IV Q2H [facility] Rx#:[id number] Norepinephrine/D5w 4 mg In 250 21.653 / 21.653 ml @ 0.05 MCG/KG/MIN 11.55 mls/ hr IV .[id number] [facility] Rx#:[id number] Phenylephrine/Nss 25 mg In 250 91.667 / 141.800 50.133 / 141.800 132.533 / 132.533 ml @ 0.5 MCG/KG/MIN 20.01 mls/ hr IV .[id number] [facility] Rx#:[id number] Sodium Chloride 0.9% 1000ML 1, 756.667 / 756.667 993.333 / 993.333 000 ml @ 100 mls/hr IV .Q10H [facility] Rx#:[id number] Oral 120 / 120 Output: Urine 950 / 950 710 / 710 Other: # Unmeasured Voids 0 Weight 66.7 kg 61.6 kg Weight Measurement Method Built in [facility] Patient Weight 05/22/23 06:59 Weight 61.6 kg (1) ST elevation myocardial infarction (STEMI) Involved coronary artery: unspecified coronary artery Qualified Code(s): I21.3 - ST elevation (STEMI) myocardial infarction of unspecified site
--- NOTE | 2023-05-21 07:35 | Critical Care Progress Note ---
Date of Service May 21, 2023 Assessment & Plan (1) ST elevation myocardial infarction (STEMI): Plan: Pt is a 52 yo male with PMH significant for GERD w/ barretts esophagus, HLD, recurrent pancreatitis, and extensive CAD (STEMI in 2019 requiring 2 stents and NSTEMI in 2020 requiring 3 stents) presenting to the ER as a heart alert due to chest pain. He was urgently taken the labor relations supervisor and 1 stent was placed. He was admitted to the ICU for monitoring. STEMI - extensive CAD hx with multiple cardiac caths and stents x6 - s/p labor relations supervisor and stent placement; post cath echo showed decreased EF at 25-30% - pt has been medically managed as outpatient; DAPT, BB, lipid lowering agents; will need addition of ACEi considering new decreased EF - pt's BP/MAPs not at goal; switch from phenylephrine to norepinephrine - due to expected further/prolonged need for vasopressors, consented for PICC line placement- will discuss with cardiology regarding mechanical intervention or possible transfer to a tertiary center - pt remains on heparin drip Electrolyte replacement - magnesium goal >2 - potassium goal >4 - replete Ca PRN DVT ppx: heparin Code: full Dispo: ICU while requiring vasopressors (2) HLD (hyperlipidemia): (3) CAD (coronary artery disease): Admission and Anticipated Discharge Date Admission Date: May 20, 2023 Supervising Physician Co-Signing Physician Notes Patient seen and examined. EMR reviewed. Discussed on multidisciplinary rounds and with family practice resident. Agree with assessment plan as noted. Patient remains persistently hypotensive. Given his low EF and low heart rate, will transition off of Armaan-Synephrine to norepinephrine to try and improve heart rate and blood pressure as well as squeeze. Will discuss with cardiology additional inotropic and chronotropic support whether or not the patient would benefit from other mechanical interventions. Will increase his activity. Out of bed to chair as tolerated. Okay to advance diet. Holding his beta-shay in light of his significant pressor requirement. Overall prognosis remains guarded. Patient remains critically ill with significant possibility of clinical decline. A total of 35 minutes critical care time was spent evaluation management stabilization of this patient. Subjective Pt denies further cardiac symptoms. No chest pain, SOB, nausea/vomiting, dizziness/lightheadedness, or leg pain. No numbness, tingling, or pain in his extremities or at his cath site. Review of Systems Review of Systems: As per HPI Physical Exam Physical Exam: Constitutional: well appearing, no acute distress HEENT: normocephalic, no conjunctival injection CV: regular rhythm, bradycardia, no murmur, no LE edema Respiratory: Clear to auscultation bilaterally. No rhonchi, wheezes, or crackles. No increased work of breathing GI: soft, nondistended, nontender MSK: no gross deformities noted Skin: warm, dry, no rashes Neuro: alert, oriented, no FND noted Results & Data Results & Data Vital Signs (Past 12 Hours) Vital Signs Temp Pulse Pulse Resp BP BP Pulse Ox 05/21/23 02:00 49 L 18 95 05/21/23 02:00 90/63 L 05/21/23 01:45 48 L 18 94 05/21/23 01:30 45 L 15 94 05/21/23 01:30 94/64 L 05/21/23 01:15 49 L 12 96 05/21/23 01:00 43 L 13 94 05/21/23 01:00 96/64 L 05/21/23 00:45 45 L 97 05/21/23 00:30 50 L 20 96 05/21/23 00:30 91/61 L 05/21/23 00:15 52 L 20 95 05/21/23 00:00 44 L 20 96 05/21/23 00:00 101/67 05/20/23 23:45 47 L 18 96 05/20/23 23:37 93/64 L 05/20/23 23:37 50 L 17 95 05/20/23 23:30 47 L 20 96 05/20/23 23:30 99/64 L 05/20/23 23:15 47 L 14 97 05/21/23 02:00 48 L 22 90/63 L 94 05/21/23 01:00 43 L 12 96/64 L 94 05/21/23 00:00 36.8 C 47 L 12 101/67 98 05/21/23 00:14 51 L 05/20/23 23:00 47 L 15 103/69 96 05/20/23 23:00 46 L 21 92 05/20/23 23:00 103/69 05/20/23 22:45 43 L 13 97 05/20/23 22:30 51 L 22 96 05/20/23 22:30 85/60 L 05/20/23 22:15 52 L 15 95 05/20/23 22:00 49 L 23 95 05/20/23 21:56 48 L 18 94 05/20/23 21:56 86/58 L 05/20/23 21:45 50 L 19 94 05/20/23 21:30 51 L 22 92 05/20/23 21:30 97/60 L 05/20/23 21:15 47 L 19 95 05/20/23 21:00 51 L 25 H 94 05/20/23 21:00 91/63 L 05/20/23 20:45 56 L 29 H 94 05/20/23 20:31 68 18 94 05/20/23 20:31 90/65 L 05/20/23 20:30 62 20 95 05/20/23 20:15 56 L 28 H 95 05/20/23 20:00 55 L 21 05/20/23 20:00 96/62 L 05/20/23 19:45 52 L 25 H 95 05/20/23 20:00 05/20/23 22:00 52 L 24 85/60 L 94 05/20/23 21:00 51 L 24 91/63 L 94 05/20/23 20:00 36.6 C 55 L 22 96/62 L 95 O2 Del Method 05/21/23 02:00 05/21/23 02:00 05/21/23 01:45 05/21/23 01:30 05/21/23 01:30 05/21/23 01:15 05/21/23 01:00 05/21/23 01:00 05/21/23 00:45 05/21/23 00:30 05/21/23 00:30 05/21/23 00:15 05/21/23 00:00 05/21/23 00:00 05/20/23 23:45 05/20/23 23:37 05/20/23 23:37 05/20/23 23:30 05/20/23 23:30 05/20/23 23:15 05/21/23 02:00 Room Air 05/21/23 01:00 Room Air 05/21/23 00:00 Room Air 05/21/23 00:14 05/20/23 23:00 Room Air 05/20/23 23:00 05/20/23 23:00 05/20/23 22:45 05/20/23 22:30 05/20/23 22:30 05/20/23 22:15 05/20/23 22:00 05/20/23 21:56 05/20/23 21:56 05/20/23 21:45 05/20/23 21:30 05/20/23 21:30 05/20/23 21:15 05/20/23 21:00 05/20/23 21:00 05/20/23 20:45 05/20/23 20:31 05/20/23 20:31 05/20/23 20:30 05/20/23 20:15 05/20/23 20:00 05/20/23 20:00 05/20/23 19:45 05/20/23 20:00 Room Air 05/20/23 22:00 Room Air 05/20/23 21:00 Room Air 05/20/23 20:00 Room Air Resident Activity Tracking Resident Involvement: Resident Care Provided Care Provided: Adult Hospital Medicine (ICU) (1) ST elevation myocardial infarction (STEMI) Involved coronary artery: unspecified coronary artery Qualified Code(s): I21.3 - ST elevation (STEMI) myocardial infarction of unspecified site
[2023-05-21] MEDS: SODIUM CHLORIDE 0.9% 1000ML 1,000 ML IV SCH ×3 (07:49→23:43)
[2023-05-21] MEDS: ASPIRIN 81 MG ECTAB PO SCH (07:50)
[2023-05-21] MEDS: ATORVASTATIN 40 MG TAB PO SCH (07:50)
[2023-05-21] MEDS: TICAGRELOR 90 MG TAB PO SCH ×2 (07:50→19:13)
[2023-05-21] MEDS: POTASSIUM CHLORIDE CRTAB 20 MEQ TABCR PO SCH ×2 (07:53→10:28)
[2023-05-21] MEDS: MAGNESIUM SULFATE / D5W 1 GM/100 ML BAG IV SCH ×4 (07:53→13:32)
[2023-05-21] MEDS: METOPROLOL TARTRATE 25 MG TAB PO SCH (07:54)
[2023-05-21] MEDS ORDERED: STAT IV STA (08:01)
[2023-05-21] MEDS ORDERED: STAT IV Infusion **Titration per Protocol STA (08:26)
[2023-05-21] MEDS ORDERED: CALCIUM GLUCONATE 10% 2,000 MG in DEXTROSE 5% 50 ML IV ONE (08:30)
[2023-05-21] MEDS ORDERED: NOREPINEPHRINE/D5W 4 MG/250 ML PLCT IV SCH (08:30)
[2023-05-21] MEDS: ICU Protocol for HYPERglycemia SCH ×4 (08:31→19:13)
[2023-05-21 09:08] LABS: Partial Thromboplastin Ratio 2.4
[2023-05-21] MEDS: HEPARIN SODIUM/DEXTROSE 25,000 UNITS/500 ML BAG IV SCH (11:44)
--- NOTE | 2023-05-21 12:04 | XRay Report ---
XR chest 1V portable CLINICAL HISTORY: SOB TECHNIQUE: Single frontal radiograph of the chest was obtained. Comparison: Comparison is made to chest radiograph 02/08/2023 FINDINGS: Right PICC tip is in the lower SVC. The cardiomediastinal silhouette is normal. Perihilar airspace op acities are seen. No evidence of pleural effusion or pneumothorax. IMPRESSION: 1. Perihilar airspace opacities may represent mild pneumonia. 2. Right PICC catheter is in satisfactory position. ACT 112: Negative or not required by law. Electronically signed by: Vadim Cunha M.D. 05/21/2023 12:03 PM
[2023-05-21 12:07] LABS: Base Excess VBG -3.1 mEq/L; HCO3 VBG 21 mmol/L; Oxygen Saturation VBG < 60.0 %; PCO2 VBG 35 mmHg (38-50); PO2 VBG 33 mmHg; pH VBG 7.39 (7.36-7.41)
--- NOTE | 2023-05-21 12:12 | Billing Data ---
Date of Service May 21, 2023 Coding Level of Care Code 83915 CRITICAL CARE
[2023-05-21 12:18] LABS: Basophils # (auto) 0.07 K/uL (0-0.2); Basophils % (auto) 0.8 %; Eosinophils # (auto) 0.08 K/uL (0-0.50); Eosinophils % (auto) 0.9 %; Hematocrit (blood only) 32.9 % (42.0-52.0); Hemoglobin 11.5 g/dl (14.0-18.0); Immature Granulocytes # (auto) 0.02 K/uL (0.01-0.20); Immature Granulocytes % (auto) 0.2 %; Lymphocytes # (auto) 1.78 K/uL (1.2-3.4); Lymphocytes % (auto) 20.5 %; Mean Corpuscular Hemoglobin 34.5 pg (25.0-34.0); Mean Corpuscular Volume 98.8 fL (80.0-100.0); Mean Platelet Volume 9.4 fL (9.4-12.4); Monocytes # (auto) 0.51 K/uL (0.11-0.59); Monocytes % (auto) 5.9 %; Neutrophils # (auto) 6.24 K/uL (1.40-6.50); Neutrophils % (auto) 71.7 %; Platelet Count 175 K/uL (130-400); RDW Coefficient of Variation 14.3 % (11.5-14.5); RDW Standard Deviation 51.8 fL (36.4-46.3); Red Blood Count 3.33 M/uL (4.70-6.10)
[2023-05-21 12:37] LABS: BUN Creatinine Ratio 13.1 (10-20); Calcium 8.5 mg/dl (8.6-10.3); Creatinine Clr Calc Pharmacy 75.1 ml/min; Est GFR (African American) 100.4 ml/min; Est GFR (Non-African American) 86.6 ml/min; Potassium 3.6 mmol/L (3.5-5.1)
--- NOTE | 2023-05-21 13:42 | Hospitalist Progress Note ---
Date of Service May 21, 2023 Assessment & Plan (1) ST elevation myocardial infarction (STEMI): Plan 52 yo M with a PMH of [place], s/p multiple stents, HLD, pancreatitis, Casanova's esophagus, GERD, tobacco use disorder, smokes 2-3 cigarettes daily, generalized anxiety disorder, presents with chest pain and was found to have an inferior wall [place] and heart alert was called. 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 Castellano on 05/20 & is s/p stent for LCx territory infarction. LDL of 51 this admission. Cardiology on board, continue with DAPT/statin. Post-cath management per budget officer, cardiology - is currently requiring pressure support. Various cardiac meds on hold due to patient needing pressors currently. Monitor replete electrolytes. RADHA Depression Continue Zoloft GERD Continue PPI HLD Continue statin Code status: FULL PCP: Yemi Dispo: Under ICU care Admission and Anticipated Discharge Date Admission Date: May 20, 2023 Subjective Patient seen and examined at bedside as a follow-up of STEMI in the setting of extensive CAD history. Patient was lying semiupright in bed, on room air, NAD, reported chest pain in the night requiring morphine. Patient reports some shortness of breath with activity. Patient denies further chest pain in the morning. Denies any fever or headache or chills. Physical Exam Physical Exam: GENERAL: Alert and oriented x3. NAD, on RA. HEENT: No pallor, no icterus. Pupils equal, round and reactive to light. Oral mucosa moist. NECK: No JVD, no neck masses. HEART: S1 and S2 heard. Regular rate and rhythm/bradycardia. + murmur, no gallop. RESPIRATORY SYSTEM: Normal AP diameter. No accessory muscle use. No wheezing, no crackles. ABDOMEN: Soft, bowel sounds present, nontender, no distention. CENTRAL NERVOUS SYSTEM: No facial droop. Speech is clear. Obeys simple commands. Moves extremities. EXTREMITIES: No edema, no erythema seen. Results & Data Results & Data Vital Signs (Past 12 Hours) Vital Signs Pulse Pulse Resp BP BP Pulse Ox O2 Del Method 05/21/23 08:00 49 L 05/21/23 08:15 106/62 05/21/23 08:00 48 L 26 H 96 Room Air 05/21/23 08:00 90/54 L 05/21/23 07:51 55 L 26 H 95 Room Air 05/21/23 07:51 87/57 L 05/21/23 07:45 60 27 H 97 Room Air 05/21/23 07:34 51 L 27 H 95 Room Air 05/21/23 07:34 82/53 L 05/21/23 07:31 60 23 92 Room Air 05/21/23 07:31 80/53 L 05/21/23 07:30 84 26 H 95 Room Air 05/21/23 07:15 78 18 95 Room Air 05/21/23 07:00 51 L 23 94 Room Air 05/21/23 07:00 89/61 L 05/21/23 02:00 49 L 18 95 05/21/23 02:00 90/63 L 05/21/23 01:45 48 L 18 94 05/21/23 01:30 45 L 15 94 05/21/23 01:30 94/64 L 05/21/23 02:00 48 L 22 90/63 L 94 Room Air (1) ST elevation myocardial infarction (STEMI) Involved coronary artery: unspecified coronary artery Qualified Code(s): I21.3 - ST elevation (STEMI) myocardial infarction of unspecified site
[2023-05-21] MEDS: ICU ELECTROLYTE REPLACEMENT PROTOCOL SCH (19:10)
[2023-05-21] MEDS: ACETAMINOPHEN 325 MG TAB PO PRN (19:12)
[2023-05-21] MEDS ORDERED: MELATONIN 3 MG TAB PO PRN (23:17)
[2023-05-22] MEDS ORDERED: LORazepam 0.5 MG TAB PO STA (02:23)
[2023-05-22 05:48] LABS: BUN Creatinine Ratio 14.1 (10-20); Calcium 8.2 mg/dl (8.6-10.3); Creatinine Clr Calc Pharmacy 87.4 ml/min; Est GFR (African American) 115.3 ml/min; Est GFR (Non-African American) 99.5 ml/min; Magnesium 1.8 mg/dl (1.7-2.4); Phosphorus 2.3 mg/dl (2.5-4.9); Potassium 3.6 mmol/L (3.5-5.1)
[2023-05-22] MEDS: ICU ELECTROLYTE REPLACEMENT PROTOCOL SCH (06:08)
[2023-05-22 06:26] LABS: Partial Thromboplastin Time 56.9 Seconds (21.0-31.0)
[2023-05-22] MEDS: POT PHOSPHATE MONOBASIC W/ SOD TAB PO SCH ×3 (06:26→13:00)
[2023-05-22] MEDS: MAGNESIUM OXIDE 400 MG TAB PO SCH ×2 (06:27→10:14)
[2023-05-22] MEDS: POTASSIUM CHLORIDE CRTAB 20 MEQ TABCR PO SCH ×2 (06:27→10:10)
--- NOTE | 2023-05-22 07:37 | Cardiology Progress Note ---
Date of Service May 22, 2023 Assessment & Plan (1) ST elevation myocardial infarction (STEMI): Plan: = 52 yo man presenting with STEMI LCX territory infarction S/P PCI Patient with long-standing CAD Premature CAD No clear CHF or mechanical complications Plans for: * Continue DAPT * Levophed (OFF) * PICC line in place * No evidence of heart failure on examination * On Lipitor 40 mg po per day * Switch back to Crestor 40 mg po per day * Will check LP(a) and Apoliprotein B given premature CAD * LDL 51 * May need to add [id number] given extremely aggressive CAD * ECHO - LVEF 25-20%, LVH, LCX territory infarction. * End-organs appear to be perfusing well * No immediate move towards mechanical circulatory support * GDMT consideration once pressors are no longer needed * Start Aldactone 12.5 mg po per day * K+ goal 4.5-5 * Kdur 40 meq po per day * Mag goal >2 * 2 gm Magnesium Sulfate * Potential transfer to step down * Cardiac rehab * Smoking cessation (2) CAD (coronary artery disease): (3) HLD (hyperlipidemia): (4) Tobacco abuse: Plan Please refer to physician addendum for further information and full plan of care. Admission and Anticipated Discharge Date Admission Date: May 20, 2023 Supervising Physician Co-Signing Physician Notes .Pt seen with [facility] staff. Concur with observations and plans Tavo Giron Subjective Events Overnight: * No arrhythmias overnight * No pressor support Subjective: * No chest pain * Mild dyspnea * No LE edema Review of Systems Review of Systems: All systems reviewed & are unremarkable except as noted in HPI & below Physical Exam Physical Exam: Thin man in NAD No elevation in JVP S4 S1S2 Soft 2/6 systolic murmur CTA B on anterior exam Right groin - no hematoma Legs - no c/c/e No evidence of mechanical complications or CHF Results & Data Vital Signs (Past 12 Hours) Vital Signs Temp Pulse Pulse Resp BP Pulse Ox O2 Del Method 05/22/23 03:30 37.3 C 69 16 102/77 96 Room Air 05/22/23 00:00 58 L 05/21/23 23:48 37.2 C 64 16 102/77 98 Room Air 05/21/23 20:16 37.4 C 82 16 101/76 98 Room Air Laboratory Results Cardiac Enzymes 05/21/23 Range/Units 08:07 Troponin I High Sens 01283.0 H* D (0-20) pg/ml Coagulation 05/21/23 05/22/23 Range/Units 08:07 04:49 APTT 67.0 H* 56.9 H* (21.0-31.0) Seconds CBC 05/21/23 Range/Units 11:52 WBC 8.70 (4.8-10.8) K/ul RBC 3.33 L (4.70-6.10) M/uL Hgb 11.5 L (14.0-18.0) g/dl Hct 32.9 L (42.0-52.0) % Plt Count 175 (130-400) K/uL Neut # (Auto) 6.24 (1.40-6.50) K/uL Lymph # (Auto) 1.78 (1.2-3.4) K/uL Leslie # (Auto) 0.51 (0.11-0.59) K/uL Eos # (Auto) 0.08 (0-0.50) K/uL Baso # (Auto) 0.07 (0-0.2) K/uL Comprehensive Metabolic Panel 05/21/23 05/22/23 Range/Units 11:52 04:49 Sodium 136 137 (136-145) mmol/L Potassium 3.6 3.6 (3.5-5.1) mmol/L Chloride 111 H 111 H (98-107) mmol/L Carbon Dioxide 21 23 (21-32) mmol/L BUN 13 12 (6-23) mg/dl Creatinine 0.99 0.85 (0.6-1.4) mg/dl Glucose 141 H 86 (70-99(Fasting)) mg/dl Calcium 8.5 L 8.2 L (8.6-10.3) mg/dl Intake and Output 05/21/23 05/22/23 05/22/23 22:59 06:59 14:59 Intake Total 231.785 / 3716.733 944.218 / 3716.733 Output Total 925 / 2710 450 / 2710 Balance -693.215 / 1006.733 494.218 / 1006.733 Intake: IV 106.785 / 3531.733 944.218 / 3531.733 Magnesium Sulfate / D5w 1 gm In 100 / 380.833 100 ml @ 50 mls/hr IV Q2H [facility] Rx#:[id number] Norepinephrine/D5w 4 mg In 250 6.785 / 86.000 0.885 / 86.000 ml @ 0 MCG/KG/MIN IV .Q0M [facility] Rx#:[id number] Sodium Chloride 0.9% 1000ML 1, 943.333 / 2583.333 000 ml @ 100 mls/hr IV .Q10H [facility] Rx#:[id number] Oral 125 / 185 Output: Urine 925 / 2710 450 / 2710 Other: Weight 61.8 kg Weight Measurement Method Built in [facility] Medications Administered Current Inpatient Medications Acetaminophen (Acetaminophen 325 Mg Tab) 650 mg PO Q4H PRN PRN Reason: MILD Pain (Scale 1,2,3) Stop: 06/19/23 12:34 Last Admin: 05/21/23 19:12 Dose: 650 mg Aspirin (Aspirin 81 Mg Ectab) 81 mg PO [facility] Stop: 06/20/23 08:59 Last Admin: 05/22/23 07:53 Dose: 81 mg Atorvastatin Calcium (Atorvastatin 40 Mg Tab) [facility] Stop: 06/20/23 08:59 Last Admin: 05/22/23 07:53 Dose: 40 mg Heparin Sodium (Beef Lung) (Heparin 10 Unit/Ml 5 Ml Flush) 5 ml FLUSH PRN PRN PRN Reason: Flush Stop: 06/20/23 11:40 Sodium Chloride (Nss 1000ml) 1,000 mls @ 100 mls/hr IV .Q10H [facility] Stop: 06/19/23 12:44 Last Admin: 05/21/23 23:43 Dose: 100 mls/hr Heparin Sodium/Dextrose (Heparin Sodium/Dextrose) 25,000 units in 500 mls @ 19 mls/hr IV .Q24H [facility]; Protocol Stop: 06/19/23 12:59 Last Admin: 05/21/23 11:44 Dose: 950 units/hr, 19 mls/hr Magnesium Oxide (Magnesium Oxide 400 Mg Tab) 400 mg PO Q4H [facility] Stop: 05/22/23 10:16 Last Admin: 05/22/23 06:27 Dose: 400 mg Melatonin (Melatonin 3 Mg Tab) 3 mg PO HS PRN PRN Reason: Sleep Stop: 06/20/23 23:16 Last Admin: 05/21/23 23:43 Dose: 3 mg Miscellaneous (Icu Protocol For Hyperglycemia) 1 each N/A ACHS [facility] Stop: 05/22/23 16:29 Last Admin: 05/21/23 19:13 Dose: Not Given Miscellaneous (Icu Electrolyte Replacement Protocol) 1 each N/A BID@06,18 [facility]; Protocol Stop: 05/27/23 17:59 Last Admin: 05/22/23 06:08 Dose: 1 each Ondansetron HCl (Ondansetron Inj 2 Mg/Ml 2 Ml Vial) 4 mg IV Q6H PRN PRN Reason: Nausea And Vomiting Stop: 06/19/23 12:34 Potassium Chloride (Potassium Chloride Crtab 20 Meq Tabcr) 20 meq PO Q4H [facility] Stop: 05/22/23 10:16 Last Admin: 05/22/23 06:27 Dose: 20 meq Potassium Phosphate (Pot Phosphate Monobasic W/ Sod Tab) 1 tab PO Q4H [facility] Stop: 05/22/23 14:16 Last Admin: 05/22/23 06:26 Dose: 1 tab Ticagrelor (Ticagrelor 90 Mg Tab) 90 mg PO BID [facility] Stop: 06/19/23 20:59 Last Admin: 05/22/23 07:53 Dose: 90 mg (1) ST elevation myocardial infarction (STEMI) Involved coronary artery: unspecified coronary artery Qualified Code(s): I21.3 - ST elevation (STEMI) myocardial infarction of unspecified site
[2023-05-22] MEDS: ATORVASTATIN 40 MG TAB PO SCH (07:53)
[2023-05-22] MEDS: TICAGRELOR 90 MG TAB PO SCH ×2 (07:53→19:38)
[2023-05-22] MEDS: ASPIRIN 81 MG ECTAB PO SCH (07:53)
[2023-05-22] MEDS ORDERED: FUROSEMIDE 20 MG TAB PO ONE (08:06)
--- NOTE | 2023-05-22 08:11 | Critical Care Progress Note ---
Date of Service May 22, 2023 Assessment & Plan (1) ST elevation myocardial infarction (STEMI): Plan: Pt is a 52 yo male with PMH significant for GERD w/ barretts esophagus, HLD, recurrent pancreatitis, and extensive CAD (STEMI in 2019 requiring 2 stents and NSTEMI in 2020 requiring 3 stents) presenting to the ER as a heart alert due to chest pain. 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 He was admitted to the ICU for monitoring. Recommendations: 1. ST elevation myocardial infarction: Status post stent placement. Continue dual antiplatelet and heparin. Will need outpatient cardiac rehab 2. Heart failure: Restart low-dose beta-shya. We will give 1 dose of oral Lasix today and see how he does. 3. Out of bed to chair as tolerated. Tolerating diet. 4. Dyspnea: Suspect related to mild vascular congestion. We will see how he responds to diuretics. Patient stable to transfer out of the intensive care unit. Disposition per hospitalist and cardiology. Critical care will sign off. Feel free to contact us with additional questions or concerns (2) HLD (hyperlipidemia): (3) CAD (coronary artery disease): Admission and Anticipated Discharge Date Admission Date: May 20, 2023 Subjective Patient seen and examined. EMR reviewed. Discussed with bedside critical care nurse. Patient is been weaned off pressors. He is hemodynamically stable now. He did report some slight increase shortness of breath. Chest x-ray did demonstrate some mild perihilar fullness. He is tolerating a diet. He is not complaining of any additional chest pain. Review of Systems Review of Systems: All systems reviewed & are unremarkable except as noted in Subjective Physical Exam Constitutional: WD/WN, vitals as above Neck: trachea midline, no thyromegaly Respiratory: normal respiratory effort, lungs clear to auscultation Cardiovascular: RRR, no murmur, no edema Gastrointestinal (Abdomen): normal bowel sounds, soft, nontender, no hepatosplenomegaly Musculoskeletal: Extremities: extremities normal to inspection Skin: no rashes, warm and dry Neurologic: Nonfocal exam Lymphatic: no cervical lymphadenopathy Results & Data Results & Data Vital Signs (Past 12 Hours) Vital Signs Temp Pulse Pulse Resp BP Pulse Ox O2 Del Method 05/22/23 08:00 79 05/22/23 03:30 37.3 C 69 16 102/77 96 Room Air 05/22/23 00:00 58 L 05/21/23 23:48 37.2 C 64 16 102/77 98 Room Air 05/21/23 20:16 37.4 C 82 16 101/76 98 Room Air Laboratory Results 05/21/23 11:52 05/22/23 04:49 Diagnostic Findings Chest x-ray from yesterday demonstrated some perihilar fullness Coding Level of Care Code 36926 SUB INP/OBS CARE 2/35MIN Diagnoses ST elevation myocardial infarction (STEMI) I21.3 Involved coronary artery: unspecified coronary artery HLD (hyperlipidemia) E78.5 CAD (coronary artery disease) I25.10 (1) ST elevation myocardial infarction (STEMI) Involved coronary artery: unspecified coronary artery Qualified Code(s): I21.3 - ST elevation (STEMI) myocardial infarction of unspecified site
[2023-05-22] MEDS: METOPROLOL TARTRATE 25 MG TAB PO SCH ×2 (08:27→19:39)
[2023-05-22] MEDS: MAGNESIUM SULFATE / D5W 1 GM/100 ML BAG IV SCH ×2 (11:27→12:58)
[2023-05-22] MEDS: SPIRONOLACTONE 12.5 MG TAB PO SCH (11:57)
[2023-05-22 12:52] LABS: Basophils # (auto) 0.04 K/uL (0-0.2); Basophils % (auto) 0.7 %; Eosinophils % (auto) 1.7 %; Hematocrit (blood only) 34.3 % (42.0-52.0); Hemoglobin 12.2 g/dl (14.0-18.0); Immature Granulocytes # (auto) 0.02 K/uL (0.01-0.20); Immature Granulocytes % (auto) 0.3 %; Lymphocytes # (auto) 1.36 K/uL (1.2-3.4); Lymphocytes % (auto) 22.6 %; Mean Corpuscular Hemoglobin 34.5 pg (25.0-34.0); Mean Corpuscular Hgb Conc 35.6 g/dL (32.0-36.0); Mean Corpuscular Volume 96.9 fL (80.0-100.0); Mean Platelet Volume 9.5 fL (9.4-12.4); Monocytes # (auto) 0.36 K/uL (0.11-0.59); Neutrophils # (auto) 4.13 K/uL (1.40-6.50); Neutrophils % (auto) 68.7 %; Platelet Count 153 K/uL (130-400); RDW Coefficient of Variation 13.8 % (11.5-14.5); RDW Standard Deviation 49.5 fL (36.4-46.3); Red Blood Count 3.54 M/uL (4.70-6.10); White Blood Count 6.01 K/ul (4.8-10.8)
[2023-05-22] MEDS: HEPARIN SODIUM/DEXTROSE 25,000 UNITS/500 ML BAG IV SCH (12:57)
[2023-05-22 13:08] LABS: BUN Creatinine Ratio 11.2 (10-20); Calcium 9.2 mg/dl (8.6-10.3); Creatinine Clr Calc Pharmacy 69.5 ml/min; Est GFR (African American) 91.4 ml/min; Est GFR (Non-African American) 78.8 ml/min; Potassium 4.2 mmol/L (3.5-5.1)
[2023-05-22] MEDS: ACETAMINOPHEN 325 MG TAB PO PRN (14:41)
--- NOTE | 2023-05-22 15:02 | Hospitalist Progress Note ---
Date of Service May 22, 2023 Assessment & Plan (1) ST elevation myocardial infarction (STEMI): Plan 52 yo M with a PMH of [place], s/p multiple stents, HLD, pancreatitis, Casanova's esophagus, GERD, tobacco use disorder, smokes 2-3 cigarettes daily, generalized anxiety disorder, presents with chest pain and was found to have an inferior wall [place] and heart alert was called. 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 Castellano on 05/20 & is s/p stent for LCx territory infarction. LDL of 51 this admission. Cardiology on board, continue with DAPT/statin. Patient is off of pressor support. On heparin drip. Aldactone started. Monitor replete electrolytes. Cardiac rehab on discharge. RADHA Depression Continue Zoloft GERD Continue PPI HLD Continue statin Code status: FULL PCP: Yemi Dispo: PCU telemetry. Pending cardiology clearance. Likely in next 1 to 2 days if with no further chest pain. Admission and Anticipated Discharge Date Admission Date: May 20, 2023 Subjective Patient seen and examined at bedside as a follow-up of STEMI in the setting of extensive CAD history. Patient was sitting up in chair, on room air, NAD, reports no further chest pain, reports mild dyspnea on exertion. Denies any fever or headache or chills. Patient is off of pressor support, will downgrade him to PCU telemetry. Physical Exam Physical Exam: GENERAL: Alert and oriented x3. NAD, on RA. HEENT: No pallor, no icterus. Pupils equal, round and reactive to light. Oral mucosa moist. NECK: No JVD, no neck masses. HEART: S1 and S2 heard. Regular rate and rhythm/bradycardia. + murmur, no gallop. RESPIRATORY SYSTEM: Normal AP diameter. No accessory muscle use. No wheezing, no crackles. ABDOMEN: Soft, bowel sounds present, nontender, no distention. CENTRAL NERVOUS SYSTEM: No facial droop. Speech is clear. Obeys simple commands. Moves extremities. EXTREMITIES: No edema, no erythema seen. Results & Data Results & Data Vital Signs (Past 12 Hours) Vital Signs Temp Pulse Pulse Resp BP BP Pulse Ox 05/22/23 14:00 80 98 05/22/23 14:00 120/75 05/22/23 13:00 67 96 05/22/23 13:00 114/71 05/22/23 12:00 77 19 97 05/22/23 12:00 117/75 05/22/23 11:00 61 18 98 05/22/23 11:00 107/76 05/22/23 10:01 81 96 05/22/23 10:01 103/73 05/22/23 10:00 70 98 05/22/23 09:00 77 97 05/22/23 09:00 115/73 05/22/23 08:40 95 H 99 05/22/23 08:40 108/74 05/22/23 08:00 89 22 96 05/22/23 08:00 119/77 05/22/23 07:00 67 94 05/22/23 07:00 122/72 05/22/23 08:09 05/22/23 08:00 79 05/22/23 03:30 37.3 C 69 16 102/77 96 O2 Del Method 05/22/23 14:00 Room Air 05/22/23 14:00 05/22/23 13:00 Room Air 05/22/23 13:00 05/22/23 12:00 Room Air 05/22/23 12:00 05/22/23 11:00 Room Air 05/22/23 11:00 05/22/23 10:01 Room Air 05/22/23 10:01 05/22/23 10:00 Room Air 05/22/23 09:00 Room Air 05/22/23 09:00 05/22/23 08:40 Room Air 05/22/23 08:40 05/22/23 08:00 Room Air 05/22/23 08:00 05/22/23 07:00 Room Air 05/22/23 07:00 05/22/23 08:09 Room Air 05/22/23 08:00 05/22/23 03:30 Room Air (1) ST elevation myocardial infarction (STEMI) Involved coronary artery: unspecified coronary artery Qualified Code(s): I21.3 - ST elevation (STEMI) myocardial infarction of unspecified site
[2023-05-23] MEDS: ACETAMINOPHEN 325 MG TAB PO PRN (02:44)
[2023-05-23 05:21] LABS: BUN Creatinine Ratio 14.1 (10-20); Calcium 8.6 mg/dl (8.6-10.3); Creatinine Clr Calc Pharmacy 80.8 ml/min; Est GFR (African American) 109.7 ml/min; Est GFR (Non-African American) 94.6 ml/min; Potassium 3.6 mmol/L (3.5-5.1)
[2023-05-23 05:53] LABS: Partial Thromboplastin Ratio 1.5
[2023-05-23 05:58] LABS: Partial Thromboplastin Time 42.6 Seconds (21.0-31.0)
[2023-05-23] MEDS: TICAGRELOR 90 MG TAB PO SCH ×2 (08:01→19:28)
[2023-05-23] MEDS: METOPROLOL TARTRATE 25 MG TAB PO SCH ×2 (08:01→19:18)
[2023-05-23] MEDS: ROSUVASTATIN CALCIUM 20 MG TAB PO SCH (08:02)
[2023-05-23] MEDS: ASPIRIN 81 MG ECTAB PO SCH (08:02)
[2023-05-23] MEDS: SPIRONOLACTONE 12.5 MG TAB PO SCH (08:02)
--- NOTE | 2023-05-23 08:56 | Cardiology Progress Note ---
Date of Service May 23, 2023 Assessment & Plan (1) ST elevation myocardial infarction (STEMI): Plan: = 52 yo man presenting with STEMI LCX territory infarction S/P PCI Patient with long-standing CAD Premature CAD No clear CHF or mechanical complications Plans for: * Continue DAPT * STOP Heparin * Levophed (OFF) * PICC line in place * No evidence of heart failure on examination * No major mechanical or electrical complication of ACS @ present * Lipitor 40 mg po per day (OFF) * Continue Crestor 40 mg po per day * Will check LP(a) and Apoliprotein B given premature CAD as an outpt * LDL 51 * May need to add PCSK9i given extremely aggressive CAD * ECHO - LVEF 25-20%, LVH, LCX territory infarction. * No immediate move towards mechanical circulatory support * GDMT as tolerated by SBP * Increase Aldactone to 25 mg po per day * K+ goal 4.5-5 * Kdur 40 meq po x 1 on 05/23/2023 * Mag goal >2 * Cardiac rehab * Smoking cessation * Pt to follow up with [facility] Tavo Giron (2) CAD (coronary artery disease): (3) HLD (hyperlipidemia): (4) Tobacco abuse: Plan Please refer to physician addendum for further information and full plan of care. Admission and Anticipated Discharge Date Admission Date: May 20, 2023 Supervising Physician Co-Signing Physician Notes .Pt seen with [facility] staff. Concur with observations and plans Tavo Giron Subjective Events overnight: * Brief run of NSVT Subjective: * No chest pain * No dyspnea with exertion in room Review of Systems Review of Systems: All systems reviewed & are unremarkable except as noted in HPI & below Physical Exam Physical Exam: Thin man in NAD No elevation in JVP S4 S1S2 Soft 2/6 systolic murmur CTA B on anterior exam Right groin - no hematoma Legs - no c/c/e No evidence of mechanical complications or CHF Results & Data Vital Signs (Past 12 Hours) Vital Signs Temp Pulse Pulse Resp BP Pulse Ox O2 Del Method 05/23/23 07:48 36.9 C 71 18 95/59 L 97 Room Air 05/23/23 07:44 63 05/23/23 02:39 36.7 C 90 20 121/69 94 Room Air 05/23/23 00:00 69 05/22/23 22:49 37.2 C 73 18 109/74 95 Room Air Laboratory Results Coagulation 05/23/23 Range/Units 04:47 APTT 42.6 H* (21.0-31.0) Seconds CBC 05/22/23 Range/Units 12:33 WBC 6.01 (4.8-10.8) K/ul RBC 3.54 L (4.70-6.10) M/uL Hgb 12.2 L (14.0-18.0) g/dl Hct 34.3 L (42.0-52.0) % Plt Count 153 (130-400) K/uL Neut # (Auto) 4.13 (1.40-6.50) K/uL Lymph # (Auto) 1.36 (1.2-3.4) K/uL [place] # (Auto) 0.36 (0.11-0.59) K/uL Eos # (Auto) 0.10 (0-0.50) K/uL Baso # (Auto) 0.04 (0-0.2) K/uL Comprehensive Metabolic Panel 05/22/23 05/23/23 Range/Units 12:33 04:47 Sodium 137 136 (136-145) mmol/L Potassium 4.2 3.6 (3.5-5.1) mmol/L Chloride 106 107 (98-107) mmol/L Carbon Dioxide 26 23 (21-32) mmol/L BUN 12 13 (6-23) mg/dl Creatinine 1.07 0.92 (0.6-1.4) mg/dl Glucose 101 H 115 H (70-99(Fasting)) mg/dl Calcium 9.2 8.6 (8.6-10.3) mg/dl Intake and Output 05/22/23 05/23/23 05/23/23 22:59 06:59 14:59 Intake Total 475 / 2616.617 300 / 2616.617 Output Total 650 / 3375 Balance -175 / -758.383 300 / -758.383 Intake: IV 100 / 1601.617 Magnesium Sulfate / D5w 1 gm In 100 / 175.833 100 ml @ 50 mls/hr IV Q2H [facility] Rx#:[id number] Oral 375 / 1015 300 / 1015 Output: Urine 650 / 3375 Other: # Unmeasured Voids 1 1 Weight 62.2 kg Weight Measurement Method [facility] Medications Administered Current Inpatient Medications Acetaminophen (Acetaminophen 325 Mg Tab) 650 mg PO Q4H PRN PRN Reason: MILD Pain (Scale 1,2,3) Stop: 06/19/23 12:34 Last Admin: 05/23/23 02:44 Dose: 650 mg Aspirin (Aspirin 81 Mg Ectab) 81 [facility] Stop: 06/20/23 08:59 Last Admin: 05/23/23 08:02 Dose: 81 mg Heparin Sodium (Beef Lung) (Heparin 10 Unit/Ml 5 Ml Flush) 5 ml FLUSH PRN PRN PRN Reason: Flush Stop: 06/20/23 11:40 Heparin Sodium/Dextrose (Heparin Sodium/Dextrose) 25,000 units in 500 mls @ 19 mls/hr IV .Q24H [facility]; Protocol Stop: 06/19/23 12:59 Last Admin: 05/22/23 12:57 Dose: 950 units/hr, 19 mls/hr Melatonin (Melatonin 3 Mg Tab) 3 mg PO HS PRN PRN Reason: Sleep Stop: 06/20/23 23:16 Last Admin: 05/21/23 23:43 Dose: 3 mg Metoprolol Tartrate (Metoprolol Tartrate 25 Mg Tab) 12.5 mg PO BID [facility] Stop: 06/21/23 08:59 Last Admin: 05/23/23 08:01 Dose: 12.5 mg Ondansetron HCl (Ondansetron Inj 2 Mg/Ml 2 Ml Vial) 4 mg IV Q6H PRN PRN Reason: Nausea And Vomiting Stop: 06/19/23 12:34 Rosuvastatin Calcium (Rosuvastatin Calcium 20 Mg Tab) [address] [facility] Stop: 06/22/23 08:59 Last Admin: 05/23/23 08:02 Dose: 40 mg Spironolactone (Spironolactone 12.5 Mg Tab) 12.5 mg PO DAILY [facility] Stop: 06/21/23 10:44 Last Admin: 05/23/23 08:02 Dose: 12.5 mg Ticagrelor (Ticagrelor 90 Mg Tab) 90 mg PO BID [facility] Stop: 06/19/23 20:59 Last Admin: 05/23/23 08:01 Dose: 90 mg (1) ST elevation myocardial infarction (STEMI) Involved coronary artery: unspecified coronary artery Qualified Code(s): I21.3 - ST elevation (STEMI) myocardial infarction of unspecified site
--- NOTE | 2023-05-23 11:23 | Electrocardiogram Report ---
Test Reason : Blood Pressure : / mmHG Vent. Rate : 050 BPM Atrial Rate : 050 BPM P-R Int : 118 ms QRS Dur : 090 ms QT Int : 400 ms P-R-T Axes : 061 -27 017 degrees QTc Int : 364 ms Sinus bradycardia Inferior-posterior infarct (cited on or before 20-MAY-2023) Abnormal ECG When compared with ECG of 20-MAY-2023 13:34, Premature atrial complexes are no longer Present Serial changes of evolving Inferior-posterior infarct Present Confirmed by Neo Garrett ([id number]) on 05/23/2023 11:22:43 AM Referred By: REFERRED SELF Confirmed By:Neo Garrett
[2023-05-23 13:10] LABS: BUN Creatinine Ratio 12.8 (10-20); Calcium 9.4 mg/dl (8.6-10.3); Creatinine Clr Calc Pharmacy 79.1 ml/min; Est GFR (African American) 106.9 ml/min; Est GFR (Non-African American) 92.2 ml/min; Potassium 4.2 mmol/L (3.5-5.1)
[2023-05-23] MEDS ORDERED: POTASSIUM CHLORIDE CRTAB 20 MEQ TABCR PO STA (16:25)
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
[2023-05-24 07:05] LABS: BUN Creatinine Ratio 13.3 (10-20); Calcium 9.1 mg/dl (8.6-10.3); Creatinine Clr Calc Pharmacy 70.8 ml/min; Est GFR (African American) 93.5 ml/min; Est GFR (Non-African American) 80.7 ml/min; Phosphorus 3.5 mg/dl (2.5-4.9); Potassium 4.5 mmol/L (3.5-5.1)
[2023-05-24 07:23] LABS: Partial Thromboplastin Time 28.2 Seconds (21.0-31.0)
--- NOTE | 2023-05-24 07:40 | Cardiology Progress Note ---
Date of Service May 24, 2023 Assessment & Plan (1) ST elevation myocardial infarction (STEMI): Plan: = 52 yo man presenting with STEMI LCX territory infarction S/P PCI Patient with long-standing CAD Premature CAD No clear CHF or mechanical complications Plans for: * Continue DAPT * Heparin (OFF) * Levophed (OFF) * PICC line in place * No evidence of heart failure on examination * No major mechanical or electrical complication of ACS @ present * Lipitor 40 mg po per day (OFF) * Continue Crestor 40 mg po per day * Will check LP(a) and Apoliprotein B given premature CAD as an outpt * LDL 51 * May need to add PCSK9i given extremely aggressive CAD * ECHO - LVEF 25-20%, LVH, LCX territory infarction. * No immediate need for mechanical circulatory support * GDMT as tolerated by SBP * Continue Aldactone to 25 mg po per day * K+ goal 4.5-5 * Mag goal >2 * Cardiac rehab * Smoking cessation * In clinic - consider starting Entresto + Toprol XL + Jardiance * Will need to have repeat ECHO to determine if ICD is indicated * Pt to follow up with [facility] Tavo Giron (2) CAD (coronary artery disease): (3) HLD (hyperlipidemia): (4) Tobacco abuse: Plan Please refer to physician addendum for further information and full plan of care. Admission and Anticipated Discharge Date Admission Date: May 20, 2023 Supervising Physician Co-Signing Physician Notes .Pt seen with [facility] staff. Concur with observations and plans Tavo Giron Subjective Events Overnight: * None reported * No Telemetry Events Subjective: * No chest pain * No dyspnea * No PND * No orthopnea * No LE edema * No palpitations Review of Systems Review of Systems: All systems reviewed & are unremarkable except as noted in HPI & below Physical Exam Physical Exam: Thin man in NAD No elevation in JVP S4 S1S2 Soft 2/6 systolic murmur CTA B on anterior exam Right groin - no hematoma Legs - no c/c/e Multiple Tattoos No evidence of mechanical complications or CHF Results & Data Vital Signs (Past 12 Hours) Vital Signs Temp Pulse Pulse Resp BP Pulse Ox O2 Del Method 05/24/23 02:33 36.6 C 73 18 125/85 97 Room Air 05/24/23 00:00 63 05/23/23 22:48 36.9 C 80 18 116/74 96 Room Air Laboratory Results Coagulation 05/24/23 Range/Units 06:05 APTT 28.2 (21.0-31.0) Seconds Comprehensive Metabolic Panel 05/23/23 05/24/23 Range/Units 12:39 06:05 Sodium 135 L 136 (136-145) mmol/L Potassium 4.2 4.5 (3.5-5.1) mmol/L Chloride 104 108 H (98-107) mmol/L Carbon Dioxide 26 22 (21-32) mmol/L BUN 12 14 (6-23) mg/dl Creatinine 0.94 1.05 (0.6-1.4) mg/dl Glucose 103 H 92 (70-99(Fasting)) mg/dl Calcium 9.4 9.1 (8.6-10.3) mg/dl Intake and Output 05/23/23 05/24/23 05/24/23 22:59 06:59 14:59 Intake Total 1040 / 1615 100 / 1615 Output Total Balance 1039 / 1614 100 / 1614 Intake: Oral 1040 / 1140 100 / 1140 Output: # Bowel Movements Other: # Unmeasured Voids 4 Weight 62.2 kg Medications Administered Current Inpatient Medications Acetaminophen (Acetaminophen 325 Mg Tab) 650 mg PO Q4H PRN PRN Reason: MILD Pain (Scale 1,2,3) Stop: 06/19/23 12:34 Last Admin: 05/23/23 02:44 Dose: 650 mg Aspirin (Aspirin 81 Mg Ectab) [facility] Stop: 06/20/23 08:59 Last Admin: 05/23/23 08:02 Dose: 81 mg Heparin Sodium (Beef Lung) (Heparin 10 Unit/Ml 5 Ml Flush) 5 ml FLUSH PRN PRN PRN Reason: Flush Stop: 06/20/23 11:40 Last Admin: 05/23/23 13:57 Dose: 5 ml Melatonin (Melatonin 3 Mg Tab) 3 mg PO HS PRN PRN Reason: Sleep Stop: 06/20/23 23:16 Last Admin: 05/21/23 23:43 Dose: 3 mg Metoprolol Tartrate (Metoprolol Tartrate 25 Mg Tab) 12.5 mg PO BID [facility] Stop: 06/21/23 08:59 Last Admin: 05/23/23 19:18 Dose: Not Given Ondansetron HCl (Ondansetron Inj 2 Mg/Ml 2 Ml Vial) 4 mg IV Q6H PRN PRN Reason: Nausea And Vomiting Stop: 06/19/23 12:34 Rosuvastatin Calcium (Rosuvastatin Calcium 20 Mg Tab) 40 mg PO QAM [facility] Stop: 06/22/23 08:59 Last Admin: 05/23/23 08:02 Dose: 40 mg Spironolactone (Spironolactone 25 Mg Tab) 25 mg PO DAILY [facility] Stop: 06/23/23 08:59 Ticagrelor (Ticagrelor 90 Mg Tab) 90 mg PO BID [facility] Stop: 06/19/23 20:59 Last Admin: 05/23/23 19:28 Dose: 90 mg (1) ST elevation myocardial infarction (STEMI) Involved coronary artery: unspecified coronary artery Qualified Code(s): I21.3 - ST elevation (STEMI) myocardial infarction of unspecified site
[2023-05-24] MEDS ORDERED: SPIRONOLACTONE 25 MG TAB PO SCH (09:00)
[2023-05-24] MEDS: ROSUVASTATIN CALCIUM 20 MG TAB PO SCH (10:19)
[2023-05-24] MEDS: ASPIRIN 81 MG ECTAB PO SCH (10:19)
[2023-05-24] MEDS: METOPROLOL TARTRATE 25 MG TAB PO SCH (10:20)
[2023-05-24] MEDS: TICAGRELOR 90 MG TAB PO SCH (10:24)
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
== END 2023-05-24 13:54 | disposition home or self-care (01) | DRG 246 ==
LOC: ED 10:44 → 1E 11:02 → SUATTDRO 11:55 → 1E 11:55 → 4W 05-22 17:09

== ENCOUNTER 2023-06-07 14:18 | Observation (INO) ==
[2023-06-07] MEDS ORDERED: NITROGLYCERIN 2% OINTMENT 30GM TUBE EXT STA (14:26)
[2023-06-07] MEDS: SODIUM CHLORIDE 0.9% 1000ML 1,000 ML IV SCH ×2 (14:44→20:40)
[2023-06-07 15:06] LABS: Basophils # (auto) 0.09 K/uL (0.00-0.20); Basophils % (auto) 1.3 %; Eosinophils # (auto) 0.22 K/uL (0.00-0.50); Eosinophils % (auto) 3.2 %; Hematocrit (blood only) 39.8 % (42.0-52.0); Hemoglobin 14.2 g/dl (14.0-18.0); Immature Granulocytes # (auto) 0.02 K/uL (0.01-0.20); Immature Granulocytes % (auto) 0.3 %; Lymphocytes # (auto) 1.74 K/uL (1.20-3.40); Mean Corpuscular Hemoglobin 34.5 pg (25.0-34.0); Mean Corpuscular Hgb Conc 35.7 g/dL (32.0-36.0); Mean Corpuscular Volume 96.8 fL (80.0-100.0); Mean Platelet Volume 9.4 fL (9.4-12.4); Monocytes # (auto) 0.41 K/uL (0.11-0.59); Monocytes % (auto) 5.9 %; Neutrophils # (auto) 4.48 K/uL (1.40-6.50); Neutrophils % (auto) 64.3 %; Platelet Count 257 K/uL (130-400); RDW Coefficient of Variation 12.8 % (11.5-14.5); RDW Standard Deviation 45.9 fL (36.4-46.3); Red Blood Count 4.11 M/uL (4.70-6.10); White Blood Count 6.96 K/ul (4.8-10.8)
--- NOTE | 2023-06-07 15:18 | XRay Report ---
XR chest 1V portable CLINICAL HISTORY: Chest pain, nonspecific COMPARISON STUDY: Chest radiograph May 21, 2023. FINDINGS: Lung volumes are normal. Lungs are clear. There is no pneumothorax or pleural effusion. Car diac size is normal. Mediastinal contours are normal. There is no evidence for pulmonary edema. [facility]. IMPRESSION: No acute cardiopulmonary findings. ACT 112: Negative or not required by law. Electronically signed by: Urban Eastman M.D. 06/07/2023 3:17 PM
[2023-06-07 15:20] LABS: Albumin Globulin Ratio 1.7 (0.9-2); Albumin Level 4.1 gm/dl (3.4-5.0); BUN Creatinine Ratio 12.1 (10-20); Bilirubin,Total 0.6 mg/dl (0.2-1.0); Calcium 9.1 mg/dl (8.6-10.3); Creatinine Clr Calc Pharmacy 60.4 ml/min; Est GFR (African American) 82.9 ml/min; Est GFR (Non-African American) 71.5 ml/min; Globulin 2.4 gm/dl (2.5-4.0); Potassium 4.3 mmol/L (3.5-5.1); Total Protein 6.5 gm/dl (6.0-8.3)
[2023-06-07 15:25] LABS: Troponin I High Sensitivity 24.6 pg/ml (0-20)
--- NOTE | 2023-06-07 17:03 | Emergency Department Note ---
Impression & Plan Chest pain, Non-sustained ventricular tachycardia, Elevated troponin ED Provider Note INFORMANT: Patient and EMS ED PROVIDER(S): Danish Grullon MD CHIEF COMPLAINT: Chest pain PLAN: Disposition: Admitted Condition: Good Outpatient prescription management: none Referral: None MEDICAL DECISION MAKING: Patient presented because of chest pain via EMS. He is doing quite well at this time. He is pain-free. He did have a short run of nonsustained ventricular tachycardia via EMS. Patient had Nitropaste applied. He was monitored. His CBC, chemistry panel, and cardiac troponin were unremarkable except for minimal elevation of troponin however it is markedly decreased from his hospital stay. Patient did have minimal elevation of LFTs. He has no abdominal pain at this time. Given his history further management in the hospital felt to be appropriate. I did consult with Dr. Marshall of cardiology. He recommended hospitalization, cardiac rule out and echocardiography. I did consult with the [facility] and discussed the case with Dr. Tamir brunner. He will evaluate the patient. I did pass on the cardiology recommendations. Discussed with program project manager After review of the information above and other included data, I feel the patient requires admission. Triage Nursing notes reviewed and agree them. Vital Signs: reviewed and remarkable for no significant abnormalities Prior /Outside records reviewed: Cardiac catheterization report reviewed. Differential diagnosis: Cardiac ischemia, aortic dissection, pulmonary embolism, pneumothorax, pneumonia, pericarditis, myocarditis, esophageal rupture, GERD, cholecystitis, pancreatitis, musculoskeletal, as well as other pathologies. Diagnostics, as interpreted by me: ECG: Twelve-lead ECG reveals sinus bradycardia 49 bpm. Incomplete right bundle branch block. Inferior Q waves. When compared to prior study T wave inversion inferiorly is more prominent no ST elevation Cardiac Monitoring: Cardiac monitoring ordered by me: The patient was placed on continuous cardiac monitoring and observed. It revealed sinus bradycardia at 56 bpm Medical decision rules: none Imaging studies: Chest x-ray. Findings: A chest x-ray was performed and revealed no pneumothorax, effusion, infiltrate, pulmonary edema, free air under the diaphragm, or wide mediastinum. Impression: No acute disease. HPI: The patient is a 52year old man with a history of CAD and recent STEMI who presents to the Emergency Room with complaints of chest pain. This started this morning and is currently resolved. Patient notes it was nonexertional. Pain felt similar to that when he had his PA 2 weeks ago. Patient was seen and evaluated here by cardiology. Patient did receive stenting. He is taking Brilinta and aspirin. He was given Zofran and aspirin prehospital. Patient did have relief with 3 nitroglycerin at home. EMS noted that the patient had a short 6 beat run of nonsustained ventricular tachycardia. The patient also note s the following associated symptoms, shortness of breath, nausea, diaphoresis. Current pain is rated as 0/10. Pt denies LOC, headache, fevers, chills, visual changes, vomiting, abdominal pain, back pain, melena, hematochezia, urinary symptoms, numbness, weakness, lymphadenopathy, rash, or other complaints. PAST MEDICAL HISTORY: See Below, CAD PAST SURGICAL HISTORY: See Below, cardiac stenting SOCIAL HISTORY: See Below, HOME MEDICATIONS: See Below ALLERGIES: See Below VITALS: See Below PHYSICAL EXAMINATION: GENERAL: Awake, alert, well-appearing, in no distress HENT: Normocephalic, atraumatic. Oropharynx unremarkable. EYES: Normal conjunctiva. Sclera non-icteric. NECK: Inspection normal. Non-tender. Supple. No nuchal rigidity. FROM. No masses. RESPIRATORY: Clear to auscultation. No wheezes. No rales. Normal respiratory effort. CARDIAC: Borderline bradycardic rate. Normal rhythm. No murmurs. No rubs. Extremities warm and well perfused. Pulses equal. No JVD. GI: Soft, non-distended. No tenderness to palpation. No rebound or guarding. No masses. RECTAL: Deferred. MUSCULOSKELETAL: Atraumatic. Chest examination reveals no tenderness. The back is symmetrical on inspection without obvious abnormality. There is no CVA tenderness to palpation. No joint edema. LOWER EXTREMITIES: Calves are equal size bilaterally and non-tender. No edema. No discoloration. NEURO: Normal sensorium. No sensory or motor deficits noted. SKIN: No rash or jaundice noted. Past Med/Surg History Medical History Acute pancreatitis Barretts esophagus CAD (coronary artery disease) 2017-RCA stent x 2 07/2020-STEMI, s/p PCI to left circumflex with 2 MELLY. Post procedure complicated by V. fib arrest requiring defibrillation. 12/2020-NSTEMI s/p 3 Xience MELLY to the distal aspect of prior stent of the left posterior lateral branch vessel COVID-29 Oct 2021 Depression RADHA (generalized anxiety disorder) GERD (gastroesophageal reflux disease) Grade II diastolic dysfunction HLD (hyperlipidemia) Mobitz type 2 second degree atrioventricular block Recurrent pancreatitis Splenic infarct Tobacco abuse Surgical History History of endoscopic retrograde cholangiopancreatography x2 (08/31, 09/30) History of vasectomy Hx laparoscopic cholecystectomy (08/22/21) Laparoscopic Cholecystectomy Dr. Davidson 08/22/2021 Family History Mother Gallbladder disease Sister Gallbladder disease Other Diabetes Stroke Denies family history of Pancreatic disease Social History Smoking Status: Current every day smoker Tobacco Type: Cigarettes Cigarettes Per Day: 2-3; Second Hand Exposure: No; Do You Dip or Chew Tobacco: No; Hx Alcohol Use: No Hx Substance Use: No Preferred Language: Kyrgyz Communication Ability: Effective Incident Engineer Required: No Beliefs That Will Affect Care: None marital status: Single Current Living Situation: Alone current occupational status: employed Feels Safe at Home: Yes Assistive Devices: None Allergies Allergies Allergy/AdvReac Type Severity Reaction Status Date / Time No Known Allergies Allergy Verified 02/08/23 17:45 Home Meds Home Medications Medication Instructions Recorded Confirmed sertraline 50 mg tablet (Zoloft) 50 mg PO QAM 10/06/18 05/20/23 nitroglycerin 0.4 mg sublingual 0.4 mg sublingual UD PRN Chest Pain 10/07/18 05/20/23 tablet (Nitrostat) dicyclomine 10 mg capsule 10 mg PO BID PRN Abdominal Pain 12/06/20 05/20/23 ezetimibe 10 mg tablet 10 mg PO QAM 12/06/20 05/20/23 famotidine 40 mg tablet 40 mg PO HS 12/06/20 05/20/23 magnesium oxide 400 mg PO QAM 12/06/20 05/20/23 pantoprazole 40 mg tablet,delayed 40 mg PO QAM 08/20/21 05/20/23 release metoprolol succinate 25 mg 25 mg PO DAILY 07/27/22 05/20/23 tablet,extended release 24 hr Previous Rx's Medication Instructions Recorded aspirin 81 mg tablet,delayed 81 mg PO QAM #30 tabs 05/24/23 release rosuvastatin 40 mg tablet 40 mg PO DAILY #30 tabs 05/24/23 spironolactone 25 mg tablet 25 mg PO DAILY #30 tabs 05/24/23 ticagrelor 90 mg tablet (Brilinta) 90 mg PO BID #60 tabs 05/24/23 Results & Data (ED) Vital Signs Vital Signs - 24 hr 06/07/23 14:37 06/07/23 14:37 06/07/23 14:42 Temperature 37.0 C Temperature Source Oral Pulse Rate 55 L Pulse Rate [Right Finger] Pulse Rhythm [Right Finger] Pulse Strength [Right Finger] Respiratory Rate 20 Respiratory Effort / Characteristics Respiratory Depth Respiratory Pattern Blood Pressure 103/71 Blood Pressure [Right Arm] Blood Pressure Mean 81 Blood Pressure Mean [Right Arm] Blood Pressure Position [Right Arm] Pulse Oximetry 97 97 97 Oxygen Delivery Method Room Air Room Air Room Air Sepsis Recent Fever Within 48 Hours No Sepsis New/Unexplained Change in Mental Status N/A Sepsis Action Taken by Nursing No Action Required 06/07/23 14:42 06/07/23 16:00 Temperature Temperature Source Pulse Rate 54 L Pulse Rate [Right Finger] 56 L Pulse Rhythm [Right Finger] Regular Pulse Strength [Right Finger] Normal Respiratory Rate 18 Respiratory Effort / Characteristics Non-Labored Respiratory Depth Normal Respiratory Pattern Regular Blood Pressure Blood Pressure [Right Arm] 95/68 L Blood Pressure Mean Blood Pressure Mean [Right Arm] 77 Blood Pressure Position [Right Arm] Lying Pulse Oximetry 99 Oxygen Delivery Method Room Air Sepsis Recent Fever Within 48 Hours Sepsis New/Unexplained Change in Mental Status Sepsis Action Taken by Nursing Laboratory Data 06/07/23 14:33 06/07/23 14:33 Lab Results 06/07/23 06/07/23 Range/Units 14:33 14:33 WBC 6.96 (4.8-10.8) K/ul RBC 4.11 L (4.70-6.10) M/uL Hgb 14.2 (14.0-18.0) g/dl Hct 39.8 L (42.0-52.0) % MCV 96.8 (80.0-100.0) fL MCH 34.5 H (25.0-34.0) pg MCHC 35.7 (32.0-36.0) g/dL RDW Std Deviation 45.9 (36.4-46.3) fL RDW Coeff of Mckinley 12.8 (11.5-14.5) % Plt Count 257 (130-400) K/uL MPV 9.4 (9.4-12.4) fL Immature Gran % (Auto) 0.3 % Neut % (Auto) 64.3 % Lymph % (Auto) 25.0 % [place] % (Auto) 5.9 % Eos % (Auto) 3.2 % Baso % (Auto) 1.3 % Neut # (Auto) 4.48 (1.40-6.50) K/uL Lymph # (Auto) 1.74 (1.20-3.40) K/uL [place] # (Auto) 0.41 (0.11-0.59) K/uL Eos # (Auto) 0.22 (0.00-0.50) K/uL Baso # (Auto) 0.09 (0.00-0.20) K/uL Immature Gran # (Auto) 0.02 (0.01-0.20) K/uL Sodium 138 (136-145) mmol/L Potassium 4.3 (3.5-5.1) mmol/L Chloride 109 H (98-107) mmol/L Carbon Dioxide 24 (21-32) mmol/L Anion Gap 5 (3-11) BUN 14 (6-23) mg/dl Creatinine 1.16 (0.6-1.4) mg/dl Est Cr Clr Drug Dosing 60.4 ml/min Est GFR ( Amer) 82.9 ml/min Est GFR (Non-Af Amer) 71.5 ml/min BUN/Creatinine Ratio 12.1 (10-20) Glucose 120 H (70-99(Fasting)) mg/dl Calcium 9.1 (8.6-10.3) mg/dl Total Bilirubin 0.6 (0.2-1.0) mg/dl AST 89 H (13-39) U/L ALT 82 H (7-52) U/L Alkaline Phosphatase 52 (34-104) U/L Troponin I High Sens 24.6 H (0-20) pg/ml Total Protein 6.5 (6.0-8.3) gm/dl Albumin 4.1 (3.4-5.0) gm/dl Globulin 2.4 L (2.5-4.0) gm/dl Albumin/Globulin Ratio 1.7 (0.9-2) Lipase 14 (11-82) U/L Administered Medications Sodium Chloride (Nss 1000ml) 1,000 mls @ 125 mls/hr IV .Q8H ALYCIA Stop: 07/07/23 14:29 Last Admin: 06/07/23 14:44 Dose: 125 mls/hr Documented By: AP Discontinued Medications Nitroglycerin (Nitroglycerin 2% Ointment 30gm Tube) 0.25 inch EXT NOW STA Stop: 06/07/23 14:27 Last Admin: 06/07/23 14:44 Dose: 0.25 inch Documented By: AP Imaging Data Radiologist's Impression: Chest X-Ray 06/07/23 14:23 XR chest 1V portable CLINICAL HISTORY: Chest pain, nonspecific COMPARISON STUDY: Chest radiograph May 21, 2023. FINDINGS: Lung volumes are normal. Lungs are clear. There is no pneumothorax or pleural effusion. Cardiac size is normal. Mediastinal contours are normal. There is no evidence for pulmonary edema. The right PICC is no longer identified. IMPRESSION: No acute cardiopulmonary findings. ACT 112: Negative or not required by law. Electronically signed by: Urban Eastman M.D. 06/07/2023 3:17 PM Discharge Plan Visit Data Chief Complaint: Chest Pain ED Provider: Danish Grullon Discharge Problem: Chest pain, Non-sustained ventricular tachycardia, Elevated troponin Forms Stand Alone Forms: [facility] Prescriptions Prescriptions: No Action sertraline [Zoloft] 50 mg tablet 50 mg PO QAM nitroglycerin [Nitrostat] 0.4 mg tablet, sublingual 0.4 mg Sublingual UD PRN (Reason: Chest Pain) famotidine 40 mg tablet 40 mg PO HS dicyclomine 10 mg capsule 10 mg PO BID PRN (Reason: Abdominal Pain) ezetimibe 10 mg tablet 10 mg PO QAM magnesium oxide 400 mg magnesium Tablet 400 mg PO QAM pantoprazole 40 mg tablet,delayed release (DR/EC) 40 mg PO QAM metoprolol succinate 25 mg Tablet Extended Release 24 Hr 25 mg PO DAILY aspirin 81 mg tablet,delayed release (DR/EC) 81 mg PO QAM Qty: 30 0RF rosuvastatin 40 mg Tablet 40 mg PO DAILY Qty: 30 0RF Brilinta 90 mg Tablet 90 mg PO BID Qty: 60 0RF spironolactone 25 mg Tablet 25 mg PO DAILY Qty: 30 0RF Referrals Referrals: Wade Bragg MD [Primary Care Provider] -
[2023-06-07] MEDS ORDERED: ALUMINUM/MAGNESIUM SUSP 30 ML UDC PO PRN (17:20)
[2023-06-07] MEDS ORDERED: ACETAMINOPHEN 325 MG TAB PO PRN (17:20)
[2023-06-07] MEDS ORDERED: NITROGLYCERIN SL 0.4 MG/TAB TAB SL PRN (17:20)
[2023-06-07] MEDS ORDERED: ONDANSETRON INJ 2 MG/ML 2 ML VIAL IV PRN (17:20)
--- NOTE | 2023-06-07 17:31 | History & Physical Report ---
Date of Service June 07, 2023 Assessment & Plan (1) Chest pain: Plan 52 yo M with a PMH of NM, s/p multiple stents, HLD, pancreatitis, Casanova's esophagus, GERD, tobacco use disorder, quit smoking 1 month ago [employer], generalized anxiety disorder, presents with chest pain that he likens to chest pain prior to STEMI recently 2 weeks ago [employer]. He is being managed for the following: Chest pain rule out ACS NSVT: 6 beats noted per EMS en route. H/o extensive CAD Tobacco use: Quit smoking 1 month ago [employer], appreciated patient's effort. Patient with chest pain/pressure on and off since 9 AM today, relieved with nitroglycerin, associated with diaphoresis and lightheadedness Patient recently had STEMI, status post stent placement, discharged on aspirin and Brilinta, patient reports compliance. Trop 24.6, EKG w/ sinus lopez, TWI II, III, aVF ER physician discussed with cardiology, plan to trend troponin, telemetry monitoring, repeat echo. N.p.o. midnight. Continue home meds with BP parameters. Pt w/ no further chest pain trend trop, echo, nitro prn, tele. Daily ekg, ekg w/ chest pain. IVF. Elevated liver enzymes: mildly elevated ast and alt. likely 2/2 hypotension 2/2 chest pain. BP about his baseline in hospital. trend. RADHA Depression Continue Zoloft GERD Continue PPI HLD Continue statin Code status: DNR/DNI PCP: Yemi History of Present Illness Chief Complaint: Chest pain Primary Care Provider: Wade Bragg MD 52-year-old gentleman with PMH of NM status post multiple stents [recent STEMI about 2 weeks ago [employer] status post stent placement], HLD, pancreatitis, Casanova's esophagus, GERD, tobacco use disorder [1 packs a day for 30 years, quit 1 month ago [employer]], generalized anxiety disorder presented with chest pain that started around 9 AM today. Patient reports chest pressure, about 4/10 in intensity, no radiation, associated with nausea/lightheadedness/dizziness/sweating which he likens to the symptoms he had prior to STEMI recently 2 weeks ago. He did take 3 nitroglycerin each 5 minutes apart, called EMS. By the time EMS arrived, he started feeling relief of chest pressure and associated symptoms. Currently at bedside exam, patient with no chest pain. Patient denies any febrile illness/flulike illness/acute changes in his bowel or bladder habits/cough or sore throat. Patient reports quitting smoking 1 months ago [he smoked 1 packs a day for 30 years], denies alcohol use/recreational drug use. DNR/DNI Medications reviewed with the patient at bedside Allergies Allergy/AdvReac Type Severity Reaction Status Date / Time No Known Allergies Allergy Verified 06/07/23 17:19 Home Medications Medication Instructions Recorded Confirmed Type sertraline 50 mg tablet (Zoloft) 50 mg PO QAM 10/06/18 06/07/23 History nitroglycerin 0.4 mg sublingual 0.4 mg sublingual UD PRN Chest Pain 10/07/18 06/07/23 History tablet (Nitrostat) dicyclomine 10 mg capsule 10 mg PO BID PRN Abdominal Pain 12/06/20 06/07/23 History ezetimibe 10 mg tablet 10 mg PO QAM 12/06/20 06/07/23 History famotidine 40 mg tablet 40 mg PO HS 12/06/20 06/07/23 History magnesium oxide 400 mg PO QAM 12/06/20 06/07/23 History pantoprazole 40 mg tablet,delayed 40 mg PO QAM 08/20/21 06/07/23 History release metoprolol succinate 25 mg 25 mg PO DAILY 07/27/22 06/07/23 History tablet,extended release 24 hr aspirin 81 mg tablet,delayed 81 mg PO QAM #30 tabs 05/24/23 06/07/23 Rx release ticagrelor 90 mg tablet (Brilinta) 90 mg PO BID #60 tabs 05/24/23 06/07/23 Rx rosuvastatin 40 mg tablet 40 mg PO QAM 06/07/23 06/07/23 History spironolactone 25 mg tablet 25 mg PO QAM 06/07/23 06/07/23 History Past Med/Surg History Medical History Acute pancreatitis Barretts esophagus CAD (coronary artery disease) 2017-RCA stent x 2 07/2020-STEMI, s/p PCI to left circumflex with 2 MELLY. Post procedure complicated by V. fib arrest requiring defibrillation. 12/2020-NSTEMI s/p 3 Xience MELLY to the distal aspect of prior stent of the left posterior lateral branch vessel COVID-29 Oct 2021 Depression RADHA (generalized anxiety disorder) GERD (gastroesophageal reflux disease) Grade II diastolic dysfunction HLD (hyperlipidemia) Mobitz type 2 second degree atrioventricular block Recurrent pancreatitis Splenic infarct Tobacco abuse Surgical History History of endoscopic retrograde cholangiopancreatography x2 (08/31, 09/30) History of vasectomy Hx laparoscopic cholecystectomy (08/22/21) Laparoscopic Cholecystectomy Dr. Davidson 08/22/2021 Family History Mother Gallbladder disease Sister Gallbladder disease Other Diabetes Stroke Denies family history of Pancreatic disease Social History Smoking Status: Current every day smoker Tobacco Type: Cigarettes Cigarettes Per Day: 2-3; Second Hand Exposure: No; Do You Dip or Chew Tobacco: No; Hx Alcohol Use: No Hx Substance Use: No Preferred Language: Sudanese Communication Ability: Effective Program Manager Slp Required: No Beliefs That Will Affect Care: None marital status: Single Current Living Situation: Alone current occupational status: employed Feels Safe at Home: Yes Assistive Devices: None Physical Exam Physical Exam: GENERAL: Alert and oriented x3. NAD, on RA. HEENT: No pallor, no icterus. Pupils equal, round and reactive to light. Oral mucosa moist. NECK: No JVD, no neck masses. HEART: S1 and S2 heard. Regular rate and rhythm/bradycardia. + murmur, no gallop. RESPIRATORY SYSTEM: Normal AP diameter. No accessory muscle use. No wheezing, no crackles. ABDOMEN: Soft, bowel sounds present, nontender, no distention. CENTRAL NERVOUS SYSTEM: No facial droop. Speech is clear. Obeys simple commands. Moves extremities. EXTREMITIES: No edema, no erythema seen. Results & Data Results & Data Vital Signs (Past 12 Hours) Vital Signs Temp Pulse Pulse Resp BP BP Pulse Ox 06/07/23 16:00 56 L 18 95/68 L 99 06/07/23 14:42 54 L 06/07/23 14:42 97 06/07/23 14:37 97 06/07/23 14:37 37.0 C 55 L 20 103/71 97 O2 Del Method 06/07/23 16:00 Room Air 06/07/23 14:42 06/07/23 14:42 Room Air 06/07/23 14:37 Room Air 06/07/23 14:37 Room Air Code Status & VTE Plan VTE Prophylaxis Plan VTE Prophylaxis will be ordered: Yes
[2023-06-07] MEDS: HEPARIN SOD 5,000 UNIT/0.5 ML VIAL SQ SCH (21:14)
[2023-06-07] MEDS: TICAGRELOR 90 MG TAB PO SCH (21:14)
--- NOTE | 2023-06-08 08:38 | Cardiology Consultation ---
Date of Consultation June 08, 2023 Assessment & Plan (1) Chest pain: (2) CAD (coronary artery disease): (3) Ischemic cardiomyopathy: (4) Non-sustained ventricular tachycardia: Plan IMPRESSION: Medically complex 52-year-old male with longstanding history of premature coronary disease who presented to [facility] emergency department due to an episode of chest discomfort, dyspnea, and lightheadedness unrelieved by SL nitroglycerine. In the ambulance patient had a short nayeli of nonsustained ventricular tachycardia. Recent admission 05/20/2023 due to LCx territory STEMI requiring PCI and new evidence of HFrEF/ICM. Updated echo this admission showed a known large posterior/inferior/inferoseptal WMA with a slightly improved LVEF of 35-40% (previously 25-30% per echo 05/20/2023). No structural heart changes. HS troponin minimally elevated, but flat. No evidence of volume overload on exam. PLAN: Ischemic cardiomyopathy: GDMT limited due to borderline hypotension and bradycardia. Currently maintained on metoprolol succinate 25 mg daily and Aldactone 25 mg daily. Reduce Aldactone to 12.5 mg daily due to positional lightheadedness. Nonsustained VT per EMS- unable to titrate BB therapy due to bradycardia on tele. LVEF improved to 35-40%. Change metoprolol succinate from 25 mg daily to 12.5 mg twice daily. Will set patient up for a live ambulatory panel monitor upon discharge (ZIO XT). Patient at risk for sustained dysrhythmias. Coronary disease: DAPT with ASA 81 mg daily + Brillinta 90 mg BID. Lipid management: LDL controlled 48. APOB elevated with normal LP(a). Mild elevation in AST/ALT. Patient with known chronic pancreatitis. On Crestor 40 mg daily + Zetia 10 mg daily -- continue Case discussed with Dr. Marshall. Supervising Physician Co-Signing Physician Notes Patient was seen and personally examined. Recommendations and plan as above. Chest pain without signs or symptoms of acute coronary syndrome. No evidence of mechanical complications on echocardiogram with ejection fraction improved slightly Continue therapies as above with planned outpatient monitoring. Discussed assessment for arrhythmias with patient. Consider cardiac rehab after discharge History of Present Illness Reason for Consultation: Chest pain Recent STEMI 05/2023 Requesting Physician: Alexandra pace Attending Physician: Lukas Santos MD History of Present Illness Medically complex 52-year-old male with longstanding history of premature coronary disease who presented to [facility] emergency department due to an episode of chest discomfort, shortness of breath, and lightheadedness that was persistent since waking yesterday morning. Took x3 SL nitro with slight improvement in symptoms, but no resolution. In the ambulance patient had a short nayeli of nonsustained ventricular tachycardia. Blood work revealed: Stable CBC and BMP. Mild elevation in AST and ALT. High- sensitivity troponin minimally elevated and flat (24.6>>26.5>>28.7>>28.4) EKG without acute ST segment changes noting sinus bradycardia with T wave inversions in inferior leads. Echocardiogram showing a known large posterior, inferior, and interfoseptal WMA with a slightly improved LVEF of 35-40% (previously 25-30% per echo 05/20/2023). CXR unremarkable. Recent hospitalization on 05/20/2023 due to left circumflex territory STEMI.Patient underwent cardiac catheterization. Culprit lesion secondary to thrombus of the prior stent train in the left circumflex and with involvement of previously untreated large OM1. Successful PCI of the AV groove circumflex into the large trifurcating OM1 with implantation of a large caliber drug-eluting stent. Unsuccessful attempt to reopen the previously placed long stent train in the mid to distal AV groove circumflex and a branch of that vessel. Note: Patient had a previous episode of stent thrombosis in the long stent train on his prior catheterization in September 2022. At that time it was noted that it was unlikely that there would be long-term patency because of poor myocardial blush. Moderate coronary disease in the LAD with patent stents in the RCA. An echocardiogram was obtained post cath (05/20/2023) showing a new severely reduced LV ejection fraction of 25 to 30% (previously 50 to 55%). A large size posterior, inferior, inferior septal wall motion abnormality was noted. The posterior wall was akinetic in the inferior wall and inferior septal wall were hypokinetic. Upon entrance into the room patient resting in the chair. No acute concerns. Notes no return of chest pain symptoms. Denies dyspnea or lightheadedness. No palpitations. Eager to eat breakfast. Has not yet returned to work. Notes ongoing stressors in his life. Denies any missed medications. TELE: SB 40-50s, no evidence of nonsustained VT. Past medical history: *Premature coronary artery disease with ischemic cardiomyopathy -History of NSTEMI, severe culprit single-vessel CAD with 99% mid RCA, 40% proximal LAD, and 50% mid LAD (PCI of proximal to mid and late/mid RCA with x 2 MELLY, 3.5 x 18 mm, 3.25 x 15 mm Xience) moderate to severe mid LAD disease by IVUS, 60 to 70%, no significant ostial/proximal LAD disease, 03/15/2018 -Repeat cardiac catheterization 10/25/2018, Moderate non-obstructive coronary artery disease. 60% mid LAD (FFR 0.85). -Inferior STEMI with 100% acute distal left circumflex occlusion at bifurcation with large PLB, moderate nonobstructive CAD, 50 to 60% mid LAD stenosis unchanged from 10/2018, widely patent RCA stents. Cath complicated by V-fib arrest requiring defibrillation x 1 and postarrest cardiogenic shock requiring norepinephrine. Successful PCI of PLB/distal circumflex bifurcation with 2 drug-eluting stents (2.75 x 15 mm [place] into left PLB, 2.25 x 12 mm [place] into distal circumflex). 08/08/2020 -History of NSTEMI 01/01/2021 with successful PCI of mid circumflex in the left PLB with x3 Xience drug-eluting stents (2.5 x 18 overlapping proximal aspect of prior stent, 2.5 x 12, 2.25 x 12 extending from distal aspect of prior stent in the left PLB; postdilated with 3.0 NC -- now at total of 5 stents at bifurcation with LPLB/distal circumflex) -Angioplasty into prior distal circumflex stent with 2.0 balloon -History of NSTEMI 10/10/2022, reocclusion of previously stented circumflex into posterior lateral branch, status post successful PCI with x 1 MELLY proximally and PTCA throughout the previous stented train. Moderate disease in the LAD unchanged, previously placed RCA stent patent.Note: Given poor myocardial blush on prior study as well as current study in combination with recurrent stent thrombosis I suspect a long-term patency will be limited. There is probably some degree of acute microvascular occlusion from thrombus but also significant myocardial scarring. -Hx of left circumflex territory infarct/STEMI status post PCI -- Culprit lesion secondary to thrombus of the prior stent train in the left circumflex and with involvement of previously untreated large OM1. Successful PCI of the AV groove circumflex into the large trifurcating OM1 with implantation of a large caliber drug-eluting stent. Unsuccessful attempt to reopen the previously placed long stent train in the mid to distal AV groove circumflex and a branch of that vessel. *Chronic diastolic CHF. *Hyperlipidemia *Tobacco use, smokes 1/2 pack of cigarettes daily-quit 05/2023. *Chronic pancreatitis *GERD Allergies Allergy/AdvReac Type Severity Reaction Status Date / Time No Known Allergies Allergy Verified 06/07/23 17:19 Home Medications Medication Instructions Recorded Confirmed Type sertraline 50 mg tablet (Zoloft) 50 mg PO QAM 10/06/18 06/07/23 History nitroglycerin 0.4 mg sublingual 0.4 mg sublingual UD PRN Chest Pain 10/07/18 History tablet (Nitrostat) dicyclomine 10 mg capsule 10 mg PO BID PRN Abdominal Pain 12/06/20 06/07/23 History ezetimibe 10 mg tablet 10 mg PO QAM 12/06/20 06/07/23 History famotidine 40 mg tablet 40 mg PO HS 12/06/20 06/07/23 History magnesium oxide 400 mg PO QAM 12/06/20 06/07/23 History pantoprazole 40 mg tablet,delayed 40 mg PO QAM 08/20/21 06/07/23 History release aspirin 81 mg tablet,delayed 81 mg PO QAM #30 tabs 05/24/23 06/07/23 Rx release ticagrelor 90 mg tablet (Brilinta) 90 mg PO BID #60 tabs 05/24/23 06/07/23 Rx rosuvastatin 40 mg tablet 40 mg PO QAM 06/07/23 06/07/23 History metoprolol succinate 25 mg 12.5 mg PO BID #30 tabs 06/08/23 Rx tablet,extended release 24 hr spironolactone 25 mg tablet 12.5 mg PO QAM #15 tabs 06/08/23 06/07/23 Rx Patient History Medical History Acute pancreatitis Barretts esophagus CAD (coronary artery disease) 2018-RCA stent x 2 07/2020-STEMI, s/p PCI to left circumflex with 2 MELLY. Post procedure complicated by V. fib arrest requiring defibrillation. 12/2020-NSTEMI s/p 3 Xience MELLY to the distal aspect of prior stent of the left posterior lateral branch vessel COVID-29 Oct 2021 Depression RADHA (generalized anxiety disorder) GERD (gastroesophageal reflux disease) Grade II diastolic dysfunction HLD (hyperlipidemia) Mobitz type 2 second degree atrioventricular block Recurrent pancreatitis Splenic infarct Tobacco abuse Surgical History History of endoscopic retrograde cholangiopancreatography x2 (08/31, 09/30) History of vasectomy Hx laparoscopic cholecystectomy (08/22/21) Laparoscopic Cholecystectomy Dr. 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 Grade Teacher Required: No Beliefs That Will Affect Care: None marital status: Single Current Living Situation: Alone current occupational status: employed Other Information That Helps Us Care for You: No Feels Safe at Home: Yes Safety Concerns: Feels Safe At This Time Assistive Devices: None Review of Systems Review of Systems: All systems reviewed & are unremarkable except as noted in HPI & below Physical Exam Constitutional: WD/WN, vitals as above no acute distress Eyes: PERRL, conjunctivae normal, anicteric sclerae Neck: normal visual inspection and trachea midline Respiratory: normal respiratory effort, lungs clear to auscultation no cough Auscultation: no rales, no rhonchi and no wheezes Cardiovascular: RRR, no murmur, no edema Heart Sounds: normal S1 and normal S2; no murmur Vessels: no JVD Extremities: no edema Gastrointestinal (Abdomen): normal bowel sounds, soft, nontender, no hepatosplenomegaly Skin: no rashes, warm and dry Psychiatric: A+Ox3, euthymic affect Results & Data Vital Signs (Past 12 Hours) Vital Signs Temp Pulse Pulse Resp BP Pulse Ox O2 Del Method 06/08/23 08:19 36.9 C 68 18 93/60 L 97 Room Air 06/08/23 02:50 36.9 C 75 18 101/55 L 98 Room Air 06/07/23 22:02 65 06/07/23 22:48 36.9 C 62 18 101/62 97 Room Air Laboratory Results Cardiac Enzymes 06/07/23 06/07/23 06/07/23 Range/Units 14:33 18:41 22:50 AST 89 H (13-39) U/L Troponin I High Sens 24.6 H 26.5 H 28.7 H (0-20) pg/ml 06/08/23 Range/Units 05:27 AST (13-39) U/L Troponin I High Sens 28.4 H (0-20) pg/ml CBC 06/07/23 06/08/23 Range/Units 14:33 05:26 WBC 6.96 6.13 (4.8-10.8) K/ul RBC 4.11 L 3.78 L (4.70-6.10) M/uL Hgb 14.2 12.9 L (14.0-18.0) g/dl Hct 39.8 L 36.7 L (42.0-52.0) % Plt Count 257 222 (130-400) K/uL Neut # (Auto) 4.48 (1.40-6.50) K/uL Lymph # (Auto) 1.74 (1.20-3.40) K/uL [place] # (Auto) 0.41 (0.11-0.59) K/uL Eos # (Auto) 0.22 (0.00-0.50) K/uL Baso # (Auto) 0.09 (0.00-0.20) K/uL Comprehensive Metabolic Panel 06/07/23 06/08/23 Range/Units 14:33 08:32 Sodium 138 138 (136-145) mmol/L Potassium 4.3 4.0 (3.5-5.1) mmol/L Chloride 109 H 111 H (98-107) mmol/L Carbon Dioxide 24 19 L (21-32) mmol/L BUN 14 18 (6-23) mg/dl Creatinine 1.16 1.15 (0.6-1.4) mg/dl Glucose 120 H 92 (70-99(Fasting)) mg/dl Calcium 9.1 8.7 (8.6-10.3) mg/dl AST 89 H (13-39) U/L ALT 82 H (7-52) U/L Alkaline Phosphatase 52 (34-104) U/L Total Protein 6.5 (6.0-8.3) gm/dl Albumin 4.1 (3.4-5.0) gm/dl Intake and Output 06/07/23 06/08/23 06/08/23 22:59 06:59 14:59 Intake Total 841.667 / 841.667 Balance 841.667 / 840.667 Intake: IV 741.667 / 741.667 Sodium Chloride 0.9% 1000ML 1, 741.667 / 741.667 000 ml @ 60 mls/hr IV .[id number] [facility] Rx#:[id number] Oral 100 / 100 Other: Other Intake Source npo Weight 63.796 kg 63.7 kg Weight Measurement Method Standing Scale
[2023-06-08] MEDS: HEPARIN SOD 5,000 UNIT/0.5 ML VIAL SQ SCH (08:47)
[2023-06-08] MEDS: TICAGRELOR 90 MG TAB PO SCH (08:48)
[2023-06-08 08:58] LABS: Hematocrit (blood only) 36.7 % (42.0-52.0); Hemoglobin 12.9 g/dl (14.0-18.0); Mean Corpuscular Hemoglobin 34.1 pg (25.0-34.0); Mean Corpuscular Hgb Conc 35.1 g/dL (32.0-36.0); Mean Corpuscular Volume 97.1 fL (80.0-100.0); Mean Platelet Volume 9.7 fL (9.4-12.4); Platelet Count 222 K/uL (130-400); RDW Coefficient of Variation 12.9 % (11.5-14.5); RDW Standard Deviation 46.3 fL (36.4-46.3); Red Blood Count 3.78 M/uL (4.70-6.10); White Blood Count 6.13 K/ul (4.8-10.8)
[2023-06-08] MEDS ORDERED: ROSUVASTATIN CALCIUM 20 MG TAB PO SCH (09:00)
[2023-06-08] MEDS ORDERED: EZETIMIBE 10 MG TAB PO SCH (09:00)
[2023-06-08] MEDS ORDERED: MAGNESIUM OXIDE 400 MG TAB PO SCH (09:00)
[2023-06-08] MEDS ORDERED: PANTOprazole 40 MG TAB PO SCH (09:00)
[2023-06-08] MEDS ORDERED: SERTRALINE HCL 50 MG TABLET PO SCH (09:00)
[2023-06-08] MEDS ORDERED: METOPROLOL SUCC 25MG EXT REL TAB PO SCH (09:00)
[2023-06-08] MEDS ORDERED: SPIRONOLACTONE 25 MG TAB PO SCH (09:00)
[2023-06-08] MEDS ORDERED: ASPIRIN 81 MG ECTAB PO SCH (09:00)
[2023-06-08 10:00] LABS: Calcium 8.7 mg/dl (8.6-10.3); Magnesium 1.7 mg/dl (1.7-2.4)
[2023-06-08 10:05] LABS: BUN Creatinine Ratio 15.7 (10-20); Creatinine Clr Calc Pharmacy 64.6 ml/min; Est GFR (African American) 83.7 ml/min; Est GFR (Non-African American) 72.3 ml/min
[2023-06-08] MEDS: SODIUM CHLORIDE 0.9% 1000ML 1,000 ML IV SCH (11:59)
--- NOTE | 2023-06-08 13:42 | Discharge Summary ---
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 Patient reports chest pressure, about 4/10 in intensity, no radiation, associate d with nausea/lightheadedness/dizziness/sweating which he likens to the symptoms he had prior to STEMI recently 2 weeks ago. He did take 3 nitroglycerin each 5 minutes apart, called EMS. By the time EMS arrived, he started feeling relief of chest pressure and associated symptoms. Currently at bedside exam, patient with no chest pain. Patient denies any febrile illness/flulike illness/acute changes in his bowel or bladder habits/cough or sore throat. Patient reports quitting smoking 1 months ago [he smoked 1 packs a day for 30 years], denies alcohol use/recreational drug use. DNR/DNI Medications reviewed with the patient at bedside Admission Exam Per Admitting Provider GENERAL: Alert and oriented x3. NAD, on RA. HEENT: No pallor, no icterus. Pupils equal, round and reactive to light. Oral mucosa moist. NECK: No JVD, no neck masses. HEART: S1 and S2 heard. Regular rate and rhythm/bradycardia. + murmur, no gallop. RESPIRATORY SYSTEM: Normal AP diameter. No accessory muscle use. No wheezing, no crackles. ABDOMEN: Soft, bowel sounds present, nontender, no distention. CENTRAL NERVOUS SYSTEM: No facial droop. Speech is clear. Obeys simple commands. Moves extremities. EXTREMITIES: No edema, no erythema seen. Principal Diagnosis Chest pain rule out ACS NSVT History of extensive CAD Tobacco use, quit 1 month ago Discharge Exam GENERAL: Alert and oriented x3. NAD, on RA. HEENT: No pallor, no icterus. Pupils equal, round and reactive to light. Oral mucosa moist. NECK: No JVD, no neck masses. HEART: S1 and S2 heard. Regular rate and rhythm/bradycardia. + murmur, no gallop. RESPIRATORY SYSTEM: Normal AP diameter. No accessory muscle use. No wheezing, no crackles. ABDOMEN: Soft, bowel sounds present, nontender, no distention. CENTRAL NERVOUS SYSTEM: No facial droop. Speech is clear. Obeys simple commands. Moves extremities. EXTREMITIES: No edema, no erythema seen. Discharge Data Allergies Allergy/AdvReac Type Severity Reaction Status Date / Time No Known Allergies Allergy Verified 06/07/23 17:19 Consultations 06/07/23 17:20 Consult Cardiology Routine Hospital Course (1) Chest pain: Plan 52 yo M with a PMH of HI, s/p multiple stents, HLD, pancreatitis, Casanova's esophagus, GERD, tobacco use disorder, quit smoking 1 month ago MATTRESS STRIPPER, generalized anxiety disorder, presents with chest pain that he likens to chest pain prior to STEMI recently 2 weeks ago MATTRESS STRIPPER. He was managed for the following: Chest pain rule out ACS NSVT: 6 beats noted per EMS en route. H/o extensive CAD Tobacco use: Quit smoking 1 month ago MATTRESS STRIPPER, appreciated patient's effort. Patient with chest pain/pressure on and off since 9 AM on the day of arrival, relieved with nitroglycerin, associated with diaphoresis and lightheadedness Patient recently had STEMI, status post stent placement, discharged on aspirin and Brilinta, patient reports compliance. Trop 24.6 - flat trended, EKG w/ sinus lopez, TWI II, III, aVF Cardio evaled, reducing dose of aldactone to 12.5 mg dialy and altering meto succinate to 12.5 mg BID. Pt w/ no further chest pain, d/w cardio, discharging today w/ close f/u w/ cardio office, will need zio xt set up by cardio office. Pt hemodynamically stable and would like to go home. Elevated liver enzymes: mildly elevated ast and alt. likely 2/2 hypotension 2/2 chest pain. f/u CMP in a week time at PCP office. RADHA Depression Continue Zoloft GERD Continue PPI HLD Continue statin Code status: DNR/DNI PCP: [place] Patient being discharged to home with following instruction at the point of discharge: Follow-up with your primary care physician within a week time and likely you will need labs CBC/CMP/magnesium/phosphorus. Follow-up with your cardiology in 1 to 2 weeks time. Your cardiac medications will possibly be revised, possibly medicines like Entresto and Jardiance will be included. Currently your metoprolol dose and Aldactone dose has been altered this admission. Cardiology office will likely set your up for a live ambulatory cardiac surgeon upon discharge (ZIO XT). You will also need repeat echo in few months time, coordinate with your cardiology office. Maintain heart healthy and low-sodium [less than 2 g/day] diet. Avoid strenuous physical activity until clinically evaluated either by your PCP or cardiology in 1 to 2 weeks time. Please establish with cardiac rehab upon discharge, coordinate with either PCP or cardiology office. Take your medications as prescribed. Please make sure that you are able to get your medications today by calling your pharmacy before you leave the hospital so that your treatment continuity is not broken. Home Health Attestation I certify that this patient is under my care and that I, or a physicians preschool assistant director working with me, had a face to-face encounter that meets the home health [id number] encounter requirements with this patient. The encounter with the patient was in whole, or in part, for the following medical condition, which is the primary reason for home health care (list medical condition): I certify that, based on my findings, the following services are medically necessary home health services: My clinical findings support the need for the above services because: Further, I certify that my clinical findings support that this patient is homebound (i.e. absences from home require considerable and taxing effort and are for medical reasons or christianity services or infrequently or of short duration when for other reasons) because: Certification for Home Health Services: Based on the above findings, I certify that this patient is confined to the home and needs intermittent assisted care, physical therapy and/or speech therapy or continues to need occupational therapy. The patient is under my care, and I have initiated the establishment of the plan of care. This patient will be followed by a physician who will periodically review the plan of care. Total Time Total Time Spent Total Time Spent (In Minutes): 45 Discharge Plan Discharge Items Patient Disposition: Home - Self-Care Reason For Visit: CHEST PAIN Discharge Diagnosis: Chest pain rule out ACS NSVT History of extensive CAD Tobacco use, quit 1 month ago Activity: Resume your previous activity Non-emergency contact: Primary Care Provider Call non-emergency contact if: you have any medication questions, your symptoms worsen and your temperature is above 101 Follow-up/Referrals: Wade Bragg MD [Primary Care Provider] - Diet: Heart Healthy and Low Sodium (2gm) Addtl Attending Provider Instructions: Follow-up with your primary care physician within a week time and likely you will need labs CBC/CMP/magnesium/phosphorus. Follow-up with your cardiology in 1 to 2 weeks time. Your cardiac medications will possibly be revised, possibly medicines like Entresto and Jardiance will be included. Currently your metoprolol dose and Aldactone dose has been altered this admission. Cardiology office will likely set your up for a live ambulatory cardiac surgeon upon discharge (ZIO XT). You will also need repeat echo in few months time, coordinate with your cardiology office. Maintain heart healthy and low-sodium [less than 2 g/day] diet. Avoid strenuous physical activity until clinically evaluated either by your PCP or cardiology in 1 to 2 weeks time. Please establish with cardiac rehab upon discharge, coordinate with either PCP or cardiology office. Take your medications as prescribed. Please make sure that you are able to get your medications today by calling your pharmacy before you leave the hospital so that your treatment continuity is not broken. Pending Studies at Discharge: No Stand-Alone Forms: My [facility], Smoking Cessation Medications and DC Order Prescriptions: Continued sertraline [Zoloft] 50 mg tablet 50 mg PO QAM nitroglycerin [Nitrostat] 0.4 mg tablet, sublingual 0.4 mg Sublingual UD PRN (Reason: Chest Pain) famotidine 40 mg tablet 40 mg PO HS dicyclomine 10 mg capsule 10 mg PO BID PRN (Reason: Abdominal Pain) ezetimibe 10 mg tablet 10 mg PO QAM magnesium oxide 400 mg magnesium Tablet 400 mg PO QAM pantoprazole 40 mg tablet,delayed release (DR/EC) 40 mg PO QAM aspirin 81 mg tablet,delayed release (DR/EC) 81 mg PO QAM Qty: 30 0RF Brilinta 90 mg Tablet 90 mg PO BID Qty: 60 0RF rosuvastatin 40 mg tablet 40 mg PO QAM Changed metoprolol succinate 25 mg Tablet Extended Release 24 Hr 12.5 mg PO BID Qty: 30 0RF spironolactone 25 mg tablet 12.5 mg PO QAM Qty: 15 0RF Discharge Orders: Discharge Order (Routine); Ordered 06/08/23 Ordered By: Prieto Burrell Admission Data Admit Date/Time: 08/28/23 17:21 Attending Provider: Lukas Santos Admit Provider: Prieto Burrell Primary Care Provider: Wade Bragg Other Providers: Bran Marshall ; Prieto Burrell
--- NOTE | 2023-06-09 06:09 | Electrocardiogram Report ---
Test Reason : Blood Pressure : / mmHG Vent. Rate : 049 BPM Atrial Rate : 049 BPM P-R Int : 124 ms QRS Dur : 092 ms QT Int : 394 ms P-R-T Axes : 072 036 -23 degrees QTc Int : 355 ms Sinus bradycardia Incomplete right bundle branch block Inferior infarct (cited on or before 20-MAY-2023) Abnormal ECG When compared with ECG of 20-MAY-2023 19:59, T wave inversion more evident in Inferior leads Confirmed by Jaren Crow ([id number]) on 06/09/2023 6:09:06 AM Referred By: REFERRED SELF Confirmed By:Jaren Crow
[2023-06-09] MEDS ORDERED: SPIRONOLACTONE 12.5 MG TAB PO SCH (09:00)
[2023-06-09] MEDS ORDERED: METOPROLOL SUCC 25MG EXT REL TAB PO SCH (09:00)
== END 2023-06-08 16:10 | disposition home or self-care (01) ==
LOC: 4W 14:18 → ED 14:18 → SUATTDRO 17:21 → 4W 19:16
DX: Z79.82 Long term (current) use of aspirin; Z79.899 Other long term (current) drug therapy; Z86.16 Personal history of COVID-19; R77.8 Other specified abnormalities of plasma proteins; I25.5 Ischemic cardiomyopathy; I25.10 Atherosclerotic heart disease of native coronary artery without angina pectoris; I47.20 Ventricular tachycardia, unspecified; R07.9 Chest pain, unspecified; Z66 Do not resuscitate; Z87.891 Personal history of nicotine dependence; Z95.5 Presence of coronary angioplasty implant and graft

== ENCOUNTER 2023-07-09 07:48 | Observation (INO) ==
[2023-07-09] MEDS ORDERED: MoRPHine SULFATE 10 MG/ML CARP/VIAL IV STA (07:58)
[2023-07-09] MEDS ORDERED: ONDANSETRON INJ 2 MG/ML 2 ML VIAL IV STA (07:58)
--- NOTE | 2023-07-09 08:02 | Emergency Department Note ---
Impression & Plan Chest pain, CAD (coronary artery disease) ED Provider Note NAME: SAMUEL RIDER AGE: 52 SEX: M : 1970 ARRIVES VIA: Ambulance INFORMANT: Patient ED PROVIDER(S): Florentino Smith DO CHIEF COMPLAINT: chest pain HPI: Patient is a 52-year-old male with a past medical history of ischemic cardiomyopathy, nonsustained VT, STEMI, pancreatitis, tobacco abuse who presents to the ER for midsternal chest pressure which feels like his previous OK. Last stents were placed back in May. He denies any belly pain but does admit to nausea but no vomiting. No dysuria, urgency, or frequency. Does have some shortness of breath. Notes that he had this last night around 9 PM and he took a nitro and improved and then recurred around 12 PM and took nitro again and improved. Then occurred once again when he woke up. He is transported by EMS. Per EMS they gave 3 nitro as well as 3 baby aspirin. ADDITIONAL HISTORY OBTAINED: Per HPI per EMS Chronic Medical/Social Conditions Affecting Care: Per HPI PAST MEDICAL HISTORY:See Below PAST SURGICAL HISTORY:See Below FAMILY HISTORY:See Below SOCIAL HISTORY:See Below HOME MEDICATIONS:See Below ALLERGIES:See Below VITALS:See Below PHYSICAL EXAMINATION: GENERAL: Sitting up in bed, alert, well appearing, well nourished, no distress, non-toxic EYE EXAM: normal conjunctiva. OROPHARYNX: no exudate, no erythema, lips, buccal mucosa, and tongue normal and mucous membranes are moist NECK: supple, no nuchal rigidity, no adenopathy, non-tender LUNGS: Clear to auscultation. Normal chest wall mechanics HEART: no murmurs, S1 normal and S2 normal ABDOMEN: abdomen soft, non-tender, normo-active bowel sounds, no masses, no rebound or guarding. UPPER EXTREMITIES: upper extremities are grossly normal. LOWER EXTREMITIES: No pitting edema. Calves are equal bilateral NEURO EXAM: Normal sensorium, cranial nerves II-XII grossly intact, normal speech, no gross weakness of arms, no gross weakness of legs. MEDICAL DECISION MAKING: Patient is a 52-year-old male who presents ER for above-stated complaint. IV was established blood work is obtained. External records reviewed. Additional history obtained from EMS. IV was established blood work was obtained. Labs show no significant leukocytosis or anemia. BMP along with LFTs bilirubin was unremarkable. Troponin just faintly elevated at 29 and appears to be consistent with his previous. EKG was not significantly changed from previous. He was already given aspirin prior to arrival and nitro. He was given morphine x2 here with resolution of the pain. He was updated bedside and discussed with the hospitalist due to his heart score. External Records Reviewed: With the recent admission and discharge and while admitted had 6 beat VT Consults/Care Managements Discussions: Per MDM Triage Nursing notes reviewed. Limited review of prior medical records performed Vital Signs: reviewed and remarkable for no significant abnormalities Differential diagnosis: Cardiac ischemia, aortic dissection, pulmonary embolism, pneumothorax, pneumonia, pericarditis, myocarditis, esophageal rupture, GERD, cholecystitis, pancreatitis, musculoskeletal, as well as other pathologies. ER treatment provided: See below Diagnostics interpreted by me include EKG and cardiac monitoring as listed below: -Cardiac Monitoring: An order was placed for continuous cardiac monitoring. The monitor shows a rate of 51 with sinus rhythm. -ECG: Sinus bradycardia rate of 50 Normal axis Incomplete right bundle T wave inversion in the inferior leads T wave inversion in V6 In comparison to old new T wave inversion in V6. -Laboratory studies:Interpreted by me as stated above in MDM and shown below. Imaging studies: Xrays: As interpreted by me: Portable AP upright 1 view of the chest shows no focal infiltrate per my review CTs show: none Procedures:none Critical Care: None Past Med/Surg History Medical History (Updated 07/09/23 @ 12:50 by Florentino Smith DO) Acute pancreatitis Barretts esophagus CAD (coronary artery disease) 2017-RCA stent x 2 07/2020-STEMI, s/p PCI to left circumflex with 2 MELLY. Post procedure complicated by V. fib arrest requiring defibrillation. 12/2020-NSTEMI s/p 3 Xience MELLY to the distal aspect of prior stent of the left posterior lateral branch vessel COVID-29 Oct 2021 Depression RADHA (generalized anxiety disorder) GERD (gastroesophageal reflux disease) Grade II diastolic dysfunction HLD (hyperlipidemia) Mobitz type 2 second degree atrioventricular block Recurrent pancreatitis Splenic infarct ST elevation myocardial infarction (STEMI) Tobacco abuse Surgical History History of endoscopic retrograde cholangiopancreatography x2 (08/31, 09/30) History of vasectomy Hx laparoscopic cholecystectomy (08/22/21) Laparoscopic Cholecystectomy Dr. 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 Beliefs That Will Affect Care: None marital status: Single Current Living Situation: Alone current occupational status: employed Feels Safe at Home: Yes Assistive Devices: None Allergies Allergies Allergy/AdvReac Type Severity Reaction Status Date / Time No Known Allergies Allergy Verified 06/07/23 17:19 Home Meds Home Medications Medication Instructions Recorded Confirmed sertraline 50 mg tablet (Zoloft) 50 mg PO QAM 10/06/18 07/09/23 nitroglycerin 0.4 mg sublingual 0.4 mg sublingual UD PRN Chest Pain 10/07/18 07/09/23 tablet (Nitrostat) dicyclomine 10 mg capsule 10 mg PO BID PRN Abdominal Pain 12/06/20 07/09/23 ezetimibe 10 mg tablet 10 mg PO QAM 12/06/20 07/09/23 famotidine 40 mg tablet 40 mg PO HS 12/06/20 07/09/23 magnesium oxide 400 mg PO QAM 12/06/20 07/09/23 pantoprazole 40 mg tablet,delayed 40 mg PO QAM 08/20/21 07/09/23 release rosuvastatin 40 mg tablet 40 mg PO QAM 06/07/23 07/09/23 albuterol sulfate 2.5 mg/3 mL 2.5 mg inhalation Q4H PRN 07/09/23 07/09/23 (0.083 %) solution for nebulization Shortness Of Breath Or Wheezing metoprolol succinate 25 mg 12.5 mg PO HS 07/09/23 07/09/23 tablet,extended release 24 hr Previous Rx's Medication Instructions Recorded aspirin 81 mg tablet,delayed 81 mg PO QAM #30 tabs 05/24/23 release ticagrelor 90 mg tablet (Brilinta) 90 mg PO BID #60 tabs 05/24/23 spironolactone 25 mg tablet 12.5 mg PO QAM #15 tabs 06/08/23 Results & Data (ED) Vital Signs Vital Signs - 24 hr 07/09/23 08:00 07/09/23 07:57 07/09/23 07:57 Temperature 36.5 C Temperature Source Oral Pulse Rate 64 60 Pulse Rate [Right Finger] Pulse Rhythm Regular Pulse Rhythm [Right Finger] Pulse Strength Normal Pulse Strength [Right Finger] Respiratory Rate 24 Respiratory Effort / Characteristics Non-Labored Spontaneous Respiratory Depth Normal Respiratory Pattern Regular Blood Pressure 111/70 Blood Pressure [Left Arm] Blood Pressure Mean 83 Blood Pressure Mean [Left Arm] Blood Pressure Position Semi-fowlers Blood Pressure Position [Left Arm] Pulse Oximetry 97 97 Oxygen Delivery Method Room Air Room Air Sepsis Recent Fever Within 48 Hours No Sepsis New/Unexplained Change in Mental Status No Sepsis Action Taken by Nursing No Action Required 07/09/23 07:57 07/09/23 07:57 07/09/23 09:33 Temperature 36.5 C 36.5 C Temperature Source Oral Oral Pulse Rate 60 Pulse Rate [Right Finger] 60 65 Pulse Rhythm Regular Pulse Rhythm [Right Finger] Regular Regular Pulse Strength Pulse Strength [Right Finger] Normal Normal Respiratory Rate 24 24 18 Respiratory Effort / Characteristics Non-Labored Spontaneous Non-Labored Spontaneous Respiratory Depth Normal Normal Respiratory Pattern Regular Regular Blood Pressure Blood Pressure [Left Arm] 111/70 106/69 Blood Pressure Mean Blood Pressure Mean [Left Arm] 83 81 Blood Pressure Position Blood Pressure Position [Left Arm] Semi-fowlers Semi-fowlers Pulse Oximetry 97 97 97 Oxygen Delivery Method Room Air Room Air Room Air Sepsis Recent Fever Within 48 Hours Sepsis New/Unexplained Change in Mental Status Sepsis Action Taken by Nursing Laboratory Data 07/09/23 07:57 07/09/23 07:57 Lab Results 07/09/23 07/09/23 Range/Units 07:57 07:57 WBC 10.51 (4.8-10.8) K/ul RBC 4.51 L (4.70-6.10) M/uL Hgb 15.4 (14.0-18.0) g/dl Hct 44.3 (42.0-52.0) % MCV 98.2 (80.0-100.0) fL MCH 34.1 H (25.0-34.0) pg MCHC 34.8 (32.0-36.0) g/dL RDW Std Deviation 47.5 H (36.4-46.3) fL RDW Coeff of Mckinley 13.2 (11.5-14.5) % Plt Count 257 (130-400) K/uL MPV 9.2 L (9.4-12.4) fL Immature Gran % (Auto) 0.3 % Neut % (Auto) 80.6 % Lymph % (Auto) 12.3 % Warrick % (Auto) 4.1 % Eos % (Auto) 1.8 % Baso % (Auto) 0.9 % Neut # (Auto) 8.48 H (1.40-6.50) K/uL Lymph # (Auto) 1.29 (1.20-3.40) K/uL Warrick # (Auto) 0.43 (0.11-0.59) K/uL Eos # (Auto) 0.19 (0.00-0.50) K/uL Baso # (Auto) 0.09 (0.00-0.20) K/uL Immature Gran # (Auto) 0.03 (0.01-0.20) K/uL Sodium 137 (136-145) mmol/L Potassium 3.9 (3.5-5.1) mmol/L Chloride 107 (98-107) mmol/L Carbon Dioxide 24 (21-32) mmol/L Anion Gap 6 (3-11) BUN 9 (6-23) mg/dl Creatinine 1.11 (0.6-1.4) mg/dl Est Cr Clr Drug Dosing Not Reportable Est GFR ( Amer) 87.4 ml/min Est GFR (Non-Af Amer) 75.4 ml/min BUN/Creatinine Ratio 8.1 L (10-20) Glucose 122 H (70-99(Fasting)) mg/dl Calcium 9.4 (8.6-10.3) mg/dl Total Bilirubin 0.5 (0.2-1.0) mg/dl AST 21 (13-39) U/L ALT 27 (7-52) U/L Alkaline Phosphatase 64 (34-104) U/L Troponin I High Sens 28.5 H (0-20) pg/ml Total Protein 7.2 (6.0-8.3) gm/dl Albumin 4.6 (3.4-5.0) gm/dl Globulin 2.6 (2.5-4.0) gm/dl Albumin/Globulin Ratio 1.8 (0.9-2) Lipase 75 (11-82) U/L Administered Medications Discontinued Medications Morphine Sulfate (Morphine Sulfate 10 Mg/Ml Carp/Vial) 6 mg IV NOW STA Stop: 07/09/23 07:59 Last Admin: 07/09/23 08:05 Dose: 6 mg Documented By: CAW Morphine Sulfate (Morphine Sulfate 4 Mg/Ml 1 Ml Carp\Vial) 4 mg IV NOW STA Stop: 07/09/23 09:18 Last Admin: 07/09/23 09:31 Dose: 4 mg Documented By: CAW Ondansetron HCl (Ondansetron Inj 2 Mg/Ml 2 Ml Vial) 4 mg IV NOW STA Stop: 07/09/23 07:59 Last Admin: 07/09/23 08:06 Dose: 4 mg Documented By: CAW Imaging Data Radiologist's Impression: Chest X-Ray 07/09/23 07:52 XR chest 1V portable HISTORY: Chest pain, nonspecific COMPARISON: Chest 06/07/2023. FINDINGS: The lungs are clear. Cardiac silhouette is normal in size. No pleural effusions. No pneumothorax. IMPRESSION: No acute process. ACT 112: Negative or not required by law. Electronically signed by: David Noel M.D. 07/09/2023 8:23 AM Discharge Plan Visit Data Chief Complaint: Chest Pain ED Provider: Florentino Smith Discharge Problem: Chest pain, CAD (coronary artery disease) Patient Disposition: Admitted As Inpatient Discharge Instructions Interventions: ED Discharge Assessment Last Done: 07/09/23 12:35
[2023-07-09 08:13] LABS: Basophils # (auto) 0.09 K/uL (0.00-0.20); Basophils % (auto) 0.9 %; Eosinophils # (auto) 0.19 K/uL (0.00-0.50); Eosinophils % (auto) 1.8 %; Hematocrit (blood only) 44.3 % (42.0-52.0); Hemoglobin 15.4 g/dl (14.0-18.0); Immature Granulocytes # (auto) 0.03 K/uL (0.01-0.20); Immature Granulocytes % (auto) 0.3 %; Lymphocytes # (auto) 1.29 K/uL (1.20-3.40); Lymphocytes % (auto) 12.3 %; Mean Corpuscular Hemoglobin 34.1 pg (25.0-34.0); Mean Corpuscular Hgb Conc 34.8 g/dL (32.0-36.0); Mean Corpuscular Volume 98.2 fL (80.0-100.0); Mean Platelet Volume 9.2 fL (9.4-12.4); Monocytes # (auto) 0.43 K/uL (0.11-0.59); Monocytes % (auto) 4.1 %; Neutrophils # (auto) 8.48 K/uL (1.40-6.50); Neutrophils % (auto) 80.6 %; Platelet Count 257 K/uL (130-400); RDW Coefficient of Variation 13.2 % (11.5-14.5); RDW Standard Deviation 47.5 fL (36.4-46.3); Red Blood Count 4.51 M/uL (4.70-6.10); White Blood Count 10.51 K/ul (4.8-10.8)
--- NOTE | 2023-07-09 08:25 | XRay Report ---
XR chest 1V portable HISTORY: Chest pain, nonspecific COMPARISON: Chest 06/07/2023. FINDINGS: The lungs are clear. Cardiac silhouette is normal in size. No pleural effusions. No pneumot horax. IMPRESSION: No acute process. ACT 112: Negative or not required by law. Electronically signed by: David Noel M.D. 07/09/2023 8:23 AM
[2023-07-09 08:31] LABS: Alanine Aminotransferase 27 U/L (7-52); Albumin Globulin Ratio 1.8 (0.9-2); Albumin Level 4.6 gm/dl (3.4-5.0); Alkaline Phosphatase 64 U/L (34-104); Anion Gap 6 (3-11); Aspartate Aminotransferase 21 U/L (13-39); BUN Creatinine Ratio 8.1 (10-20); Bilirubin,Total 0.5 mg/dl (0.2-1.0); Blood Urea Nitrogen 9 mg/dl (6-23); Calcium 9.4 mg/dl (8.6-10.3); Carbon Dioxide 24 mmol/L (21-32); Chloride 107 mmol/L (98-107); Est GFR (African American) 87.4 ml/min; Est GFR (Non-African American) 75.4 ml/min; Globulin 2.6 gm/dl (2.5-4.0); Glucose 122 mg/dl (70-99(Fasting)); Lipase 75 U/L (11-82); Potassium 3.9 mmol/L (3.5-5.1); Sodium 137 mmol/L (136-145); Total Protein 7.2 gm/dl (6.0-8.3)
[2023-07-09 08:51] LABS: Troponin I High Sensitivity 28.5 pg/ml (0-20)
[2023-07-09] MEDS ORDERED: MoRPHine SULFATE 4 MG/ML 1 ML CARP\\VIAL IV STA (09:17)
--- NOTE | 2023-07-09 09:49 | History & Physical Report ---
Date of Service July 09, 2023 Assessment & Plan (1) Ischemic cardiomyopathy: (2) Non-sustained ventricular tachycardia: (3) Chest pain: (4) Chronic pancreatitis: (5) CAD (coronary artery disease): (6) Depression: (7) RADHA (generalized anxiety disorder): (8) HLD (hyperlipidemia): (9) Tobacco abuse: Plan This is a 52yo M with a complex medical history of extensive CAD s/p multiple stents, most recently in May 2023, HLD, pancreatitis, Casanova's esophagus, GERD, tobacco use disorder, generalized anxiety disorder presenting with intermittent CP at rest since last evening. Chest pain H/o extensive CAD Cardiomyopathy Chronic tobacco use Presenting with intermittent CP at rest since last evening, currently comfortable after 10mg total of IV morphine in ED Most recent intervention in early May 2023 with left circumflex territory STEMI s/p post stent placement 2D echo in May with LVEF 25%, improving to 35-40%. Medications limited due to hypotension Follows closely with [facility] cardiology. Current outpatient meds include aspirin, Crestor, Brilinta, Topro, Aldactone EKG abnormal but no significant changes from previous, initial troponin today with 28.5 (repeat pending) Observe with trop trend, tele Consulted cardiology Paroxysmal VT Noted on previous admission at end of May Continue Toprol, monitor on tele RADHA Depression Continue Zoloft GERD Continue PPI, H2 shay HLD Continue statin Code status: DNR/DNI PCP: Yemi Dispo: Obs PCU Patient seen in collaboration with Dr. Santos. Please see addendum. History of Present Illness Chief Complaint: CP Primary Care Provider: Wade Bragg MD This is a 52yo M with a complex medical history of extensive CAD s/p multiple stents, most recently in May 2023, HLD, pancreatitis, Casanova's esophagus, GERD, tobacco use disorder, generalized anxiety disorder presenting with intermittent CP at rest since last evening. CP began around 2100 last evening that relieved with ntg and recurred around midnight and woke him up. Took ntg and it resolved as was able to go back to sleep. CP came back when getting ready for work this morning and did not resolve with ntg so came to ED for further evaluation. Describes CP as substernal with radiation to L arm with intermittent LUE numbness. Associated with diaphoresis, nausea and SOB. Episode felt similar to former MIs. Has been using ntg on and off over the past few week and just returned to work. Feels better in ED after morphine. No medication changes and says he has been compliant. Took his AM medications before arrival. Since last [place] in May, has developed some numbness and tingling in bilateral lower extremities. Had successfully quit smoking for a month but has started to smoke 1-2 cigarettes a week. Currently resting comfortably, denying F/C, cough, congestion, SOB, N/V, abdominal pain, dysuria, diarrhea or constipation. Decreased appetite. Was admitted in early May 2023 with left circumflex territory STEMI s/p post stent placement, discharged on aspirin and Brilinta, patient reports compliance. Readmitted at the end of May for CP with ACS rule out and was found to have NSVT. Has been seen in f/u with YAAKOV Hutton of [facility], due for repeat echo in 2-3 mo. Allergies Allergy/AdvReac Type Severity Reaction Status Date / Time No Known Allergies Allergy Verified 06/07/23 17:19 Home Medications Medication Instructions Recorded Confirmed Type sertraline 50 mg tablet (Zoloft) 50 mg PO QAM 10/06/18 07/09/23 History nitroglycerin 0.4 mg sublingual 0.4 mg sublingual UD PRN Chest Pain 10/07/18 07/09/23 History tablet (Nitrostat) dicyclomine 10 mg capsule 10 mg PO BID PRN Abdominal Pain 12/06/20 07/09/23 History ezetimibe 10 mg tablet 10 mg PO QAM 12/06/20 07/09/23 History famotidine 40 mg tablet 40 mg PO HS 12/06/20 07/09/23 History magnesium oxide 400 mg PO QAM 12/06/20 07/09/23 History pantoprazole 40 mg tablet,delayed 40 mg PO QAM 08/20/21 07/09/23 History release aspirin 81 mg tablet,delayed 81 mg PO QAM #30 tabs 05/24/23 07/09/23 Rx release ticagrelor 90 mg tablet (Brilinta) 90 mg PO BID #60 tabs 05/24/23 07/09/23 Rx rosuvastatin 40 mg tablet 40 mg PO QAM 06/07/23 07/09/23 History spironolactone 25 mg tablet 12.5 mg PO QAM #15 tabs 06/08/23 07/09/23 Rx albuterol sulfate 2.5 mg/3 mL 2.5 mg inhalation Q4H PRN 07/09/23 07/09/23 History (0.083 %) solution for nebulization Shortness Of Breath Or Wheezing metoprolol succinate 25 mg 12.5 mg PO HS 07/09/23 07/09/23 History tablet,extended release 24 hr Past Med/Surg History Medical History (Updated 07/09/23 @ 10:47 by Grecia Steve PA-C) Acute pancreatitis Barretts esophagus CAD (coronary artery disease) 2017-RCA stent x 2 07/2020-STEMI, s/p PCI to left circumflex with 2 MELLY. Post procedure complicated by V. fib arrest requiring defibrillation. 12/2020-NSTEMI s/p 3 Xience MELLY to the distal aspect of prior stent of the left posterior lateral branch vessel COVID-29 Oct 2021 Depression RADHA (generalized anxiety disorder) GERD (gastroesophageal reflux disease) Grade II diastolic dysfunction HLD (hyperlipidemia) Mobitz type 2 second degree atrioventricular block Recurrent pancreatitis Splenic infarct ST elevation myocardial infarction (STEMI) Tobacco abuse Surgical History History of endoscopic retrograde cholangiopancreatography x2 (08/31, 09/30) History of vasectomy Hx laparoscopic cholecystectomy (08/22/21) Laparoscopic Cholecystectomy Dr. Davidson 08/22/2021 Family History Mother Gallbladder disease Sister Gallbladder disease Other Diabetes Stroke Denies family history of Pancreatic disease Social History Smoking Status: Current some day smoker Tobacco Type: Cigarettes Cigarettes Per Day: 2-3; Second Hand Exposure: No; Do You Dip or Chew Tobacco: No; Hx Alcohol Use: No Hx Substance Use: No Preferred Language: Croatian Communication Ability: Effective Company Dancer Required: No Beliefs That Will Affect Care: None marital status: Single Current Living Situation: Alone current occupational status: employed Feels Safe at Home: Yes Assistive Devices: None Review of Systems Review of Systems: At least ten systems reviewed and negative except as noted in the HPI. Physical Exam Physical Exam: Please see Dr. Santos's addendum for physicale exam. Results & Data Results & Data Vital Signs (Past 12 Hours) Vital Signs Temp Pulse Pulse Resp BP BP Pulse Ox 07/09/23 07:57 60 24 97 07/09/23 07:57 36.5 C 60 24 111/70 97 07/09/23 07:57 97 07/09/23 07:57 36.5 C 60 24 111/70 97 07/09/23 08:00 64 O2 Del Method 07/09/23 07:57 Room Air 07/09/23 07:57 Room Air 07/09/23 07:57 Room Air 07/09/23 07:57 Room Air 07/09/23 08:00 Laboratory Results Short CBC 07/09/23 Range/Units 07:57 WBC 10.51 (4.8-10.8) K/ul Hgb 15.4 (14.0-18.0) g/dl Hct 44.3 (42.0-52.0) % Plt Count 257 (130-400) K/uL BMP 07/09/23 07:57 Sodium 137 Potassium 3.9 Chloride 107 Carbon Dioxide 24 BUN 9 Creatinine 1.11 Glucose 122 H Calcium 9.4 Liver Function 07/09/23 Range/Units 07:57 Total Bilirubin 0.5 (0.2-1.0) mg/dl AST 21 (13-39) U/L ALT 27 (7-52) U/L Alkaline Phosphatase 64 (34-104) U/L Albumin 4.6 (3.4-5.0) gm/dl Diagnostic Findings Chest X-Ray 07/09/23 07:52 XR chest 1V portable HISTORY: Chest pain, nonspecific COMPARISON: Chest 06/07/2023. FINDINGS: The lungs are clear. Cardiac silhouette is normal in size. No pleural effusions. No pneumothorax. IMPRESSION: No acute process. ACT 112: Negative or not required by law. Electronically signed by: David Noel M.D. 07/09/2023 8:23 AM Supervising Physician Co-Signing Physician Notes Patient seen and examined independently. Discussed with the provider. Patient is a 52-year-old male with complex cardiac history with recent STEMI status post PCI presents to the hospital with anginal pain at rest. The pain is relieved by nitro but recurring. EKG showed normal sinus rhythm, incomplete bundle mara block and T wave inversion in lateral lead. High sensitive troponin is 28 and 29 measured in 2 hours interval. Continue DAPT, beta-shay, spironolactone, statin. We will consult cardiology for possible unstable angina. Patient might benefit from medicine of long-acting nitrate; will deferred to cardiology. On physical examination; Constitutional: Alert orient x3; not in distress. Appears comfortable. Respiratory: normal respiratory effort, lungs clear to auscultation, no wheeze, rales, rhonchi. Normal insp/exp effort, no accessory muscle use Cardiovascular: RRR, no murmur, no edema Vessels: no JVD or carotid bruit Chest: normal inspection of chest Abdomen: normal bowel sounds, soft, nontender, no hepatosplenomegaly Musculoskeletal: no cyanosis or clubbing, extremities motor strength 5/5 Skin: no rashes, warm and dry normal turgor Neurologic: PERRL, EOMI, accommodation nl, no face palsy, no dysarthria CN's II- XI intact bilaterally and moves all extremities Psychiatric: A+Ox3, euthymic affect
[2023-07-09] MEDS ORDERED: DICYCLOMINE HCL 10 MG CAP PO PRN (10:30)
[2023-07-09] MEDS ORDERED: ALBUTEROL 0.083% NEBU SOLN 3 ML VIAL INH PRN (10:30)
[2023-07-09] MEDS ORDERED: POLYETHYLENE (MIRALAX) 17 GM PACK PO PRN (12:34)
[2023-07-09] MEDS ORDERED: ACETAMINOPHEN 325 MG TAB PO PRN (12:34)
--- NOTE | 2023-07-09 13:40 | Cardiology Consultation ---
Date of Consultation July 09, 2023 Assessment & Plan (1) Chest pain: (2) Ischemic cardiomyopathy: -Patient endorses some degree of chronic angina since his most recent intervention in May. -His symptoms were worse overnight last night and this morning. EKG reveals relatively stable findings. A mildly elevated troponin I level was noted on presentation at 757 with measurement of 28.5 and is relatively unchanged at 29.72 hours later. Echocardiogram reveals ongoing large posterior, inferior, i nferoseptal wall motion abnormality, with LVEF in the range of 35 to 40% improved compared to early May, and unchanged compared to 06/08/2023. -Patient denies having missed any doses of his aspirin and Brilinta. His heart rate is in the 50s and his systolic blood pressures in the range of 100-110 mm Hg. -We discussed options including proceeding with cardiac catheterization in an expedited fashion or continued observation. At present the patient favors a course of observation. We will continue to trend his troponin levels, and if they climb significantly would add unfractionated heparin and would reassess the benefits/risks of repeat invasive coronary angiography at some time. -Continue current medications including aspirin, Brilinta, metoprolol, spironolactone, ezetimibe, rosuvastatin. -Add Imdur 30 mg daily. -Advance diet, as pt is eager to eat lunch. Case discussed by phone with Grecia Steve PA-C for the purpose of ongoing coordination of care. History of Present Illness Attending Physician: Lukas Santos MD History of Present Illness Oc Cazares is a 52-year-old male seen in cardiology consultation per the request of Grecia Steve PA-C for the evaluation of chest discomfort. Patient is well-known to our cardiology service with complex coronary history as delineated below. He had been seen by the undersigned for chest discomfort as an inpatient in Feb, 2023 and had a nuclear stress test that was negative for ischemia, with no chest pain induced with a high level of exercise. On 05/20/2023 he presented with an ST segment elevation myocardial infarction, with ST elevation in the inferior lateral leads on presentation. Emergent cardiac catheterization at that time revealed acute thrombotic occlusion of the circumflex coronary artery at the level of the first obtuse marginal proximal to the previously placed overlapping stents in the circumflex. PCI was performed successfully restoring flow to the large trifurcating obtuse marginal 1 branch, but the distal circumflex was not amenable to PCI and patient completed a large posterior wall myocardial infarction with severe left ventricular systolic dysfunction noted on echocardiogram during that hospital stay. He presented again on 06/07/2023 at which time echocardiogram revealed improvement in his ejection fraction to the range of 35-40%. Mild elevation in the high- sensitivity troponin was observed, and he was discharged after 24 hours of observation. Patient had since been seen in posthospital follow-up. 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 In the meantime he notes that he has been doing his chores at work taking breaks as necessary and has not had symptoms concerning for angina while at work. He does however note that often times when he gets home he seems to have chest discomfort. This is what he experienced last evening. He states that after returning from work at about 9 PM he had chest discomfort prompting him to take a dose of nitroglycerin with initial relief. The symptoms returned and he took another dose at midnight. He took a third dose at 6 in the morning for mild 2/10 intensity chest discomfort and subsequently called EMS. He received an additional dose of nitro spray on the way to the hospital. At the time my assessment in the emergency department he was comfortable. EKG performed this morning at 7:52 AM revealed sinus bradycardia at 50 bpm, age- indeterminate lateral infarct noted with Q waves in the lateral precordial leads. Lateral T wave inversion limited to lead V6. T wave inversions also noted in the inferior leads III and aVF. Compared to the previous from 06/08/2023 the inferior leads are unchanged, the T wave inversion in V6 is new. Past medical history: *Premature coronary artery disease with ischemic cardiomyopathy -03/15/2018: NSTEMI, severe culprit single-vessel CAD with 99% mid RCA, 40% proximal LAD, and 50% mid LAD (PCI of proximal to mid and late/mid RCA with x 2 MELLY, 3.5 x 18 mm, 3.25 x 15 mm Xience) moderate to severe mid LAD disease by IVUS, 60 to 70%, no significant ostial/proximal LAD disease -10/25/2018:Repeat cardiac catheterization , Moderate non-obstructive coronary artery disease. 60% mid LAD (FFR 0.85). - 08/08/2020:Inferior STEMI with 100% acute distal left circumflex occlusion at bifurcation with large PLB, moderate nonobstructive CAD, 50 to 60% mid LAD stenosis unchanged from 10/2018, widely patent RCA stents. Cath complicated by V-fib arrest requiring defibrillation x 1 and postarrest cardiogenic shock requiring norepinephrine. Successful PCI of PLB/distal circumflex bifurcation with 2 drug-eluting stents (2.75 x 15 mm Mariaon into left PLB, 2.25 x 12 mm Mariano into distal circumflex). -01/01/2021 : NSTEMI with successful PCI of mid circumflex in the left PLB with x3 Xience drug-eluting stents (2.5 x 18 overlapping proximal aspect of prior stent, 2.5 x 12, 2.25 x 12 extending from distal aspect of prior stent in the left PLB; postdilated with 3.0 NC -- now at total of 5 stents at bifurcation with LPLB/distal circumflex) -Angioplasty into prior distal circumflex stent with 2.0 balloon -10/10/2022: NSTEMI reocclusion of previously stented circumflex into posterior lateral branch, status post successful PCI with x 1 MELLY proximally and PTCA throughout the previous stented train. Moderate disease in the LAD unchanged, previously placed RCA stent patent.Note: Given poor myocardial blush on prior study as well as current study in combination with recurrent stent thrombosis I suspect a long-term patency will be limited. There is probably some degree of acute microvascular occlusion from thrombus but also significant myocardial scarring. :STEMI, Circumflex territory -- Culprit lesion secondary to thrombus of the prior stent train in the left circumflex and with involvement of previously untreated large OM1. Successful PCI of the AV groove circumflex into the large trifurcating OM1 with implantation of a large caliber drug-eluting stent. Unsuccessful attempt to reopen the previously placed long stent train in the mid to distal AV groove circumflex and a branch of that vessel. *Chronic diastolic CHF. *Hyperlipidemia *Tobacco use, smokes 1/2 pack of cigarettes daily-quit 05/2023. *Chronic pancreatitis *GERD Allergies Allergy/AdvReac Type Severity Reaction Status Date / Time No Known Allergies Allergy Verified 06/07/23 17:19 Home Medications Medication Instructions Recorded Confirmed Type sertraline 50 mg tablet (Zoloft) 50 mg PO QAM 10/06/18 07/09/23 History nitroglycerin 0.4 mg sublingual 0.4 mg sublingual UD PRN Chest Pain 10/07/18 07/09/23 History tablet (Nitrostat) dicyclomine 10 mg capsule 10 mg PO BID PRN Abdominal Pain 12/06/20 07/09/23 History ezetimibe 10 mg tablet 10 mg PO QAM 12/06/20 07/09/23 History famotidine 40 mg tablet 40 mg PO HS 12/06/20 07/09/23 History magnesium oxide 400 mg PO QAM 12/06/20 07/09/23 History pantoprazole 40 mg tablet,delayed 40 mg PO QAM 08/20/21 07/09/23 History release aspirin 81 mg tablet,delayed 81 mg PO QAM #30 tabs 05/24/23 07/09/23 Rx release ticagrelor 90 mg tablet (Brilinta) 90 mg PO BID #60 tabs 05/24/23 07/09/23 Rx rosuvastatin 40 mg tablet 40 mg PO QAM 06/07/23 07/09/23 History spironolactone 25 mg tablet 12.5 mg PO QAM #15 tabs 06/08/23 07/09/23 Rx albuterol sulfate 2.5 mg/3 mL 2.5 mg inhalation Q4H PRN 07/09/23 07/09/23 History (0.083 %) solution for nebulization Shortness Of Breath Or Wheezing metoprolol succinate 25 mg 12.5 mg PO HS 07/09/23 07/09/23 History tablet,extended release 24 hr Patient History Medical History Acute pancreatitis Barretts esophagus CAD (coronary artery disease) 2017-RCA stent x 2 07/2020-STEMI, s/p PCI to left circumflex with 2 MELLY. Post procedure complicated by V. fib arrest requiring defibrillation. 12/2020-NSTEMI s/p 3 Xience MELLY to the distal aspect of prior stent of the left posterior lateral branch vessel COVID-29 Oct 2021 Depression RADHA (generalized anxiety disorder) GERD (gastroesophageal reflux disease) Grade II diastolic dysfunction HLD (hyperlipidemia) Mobitz type 2 second degree atrioventricular block Recurrent pancreatitis Splenic infarct ST elevation myocardial infarction (STEMI) Tobacco abuse Surgical History History of endoscopic retrograde cholangiopancreatography x2 (08/31, 09/30) History of vasectomy Hx laparoscopic cholecystectomy (08/22/21) Laparoscopic Cholecystectomy Dr. Davidson 08/22/2021 Family History Mother Gallbladder disease Sister Gallbladder disease Other Diabetes Stroke Denies family history of Pancreatic disease Social History Smoking Status: Current some day smoker Tobacco Type: Cigarettes Cigarettes Per Day: 2-3; Second Hand Exposure: No; Do You Dip or Chew Tobacco: No; Hx Alcohol Use: No Hx Substance Use: No Preferred Language: Kazakh Communication Ability: Effective Real Property Evaluator Required: No Beliefs That Will Affect Care: None marital status: Single Current Living Situation: Alone current occupational status: employed Feels Safe at Home: Yes Assistive Devices: None Review of Systems Review of Systems: All systems reviewed & are unremarkable except as noted in HPI & below Results & Data Vital Signs (Past 12 Hours) Vital Signs Temp Pulse Pulse Resp BP BP Pulse Ox 07/09/23 12:34 54 L 16 107/70 97 07/09/23 11:00 48 L 16 99/67 L 97 07/09/23 09:33 36.5 C 65 18 106/69 97 07/09/23 07:57 60 24 97 07/09/23 07:57 36.5 C 60 24 111/70 97 07/09/23 07:57 97 07/09/23 07:57 36.5 C 60 24 111/70 97 07/09/23 08:00 64 O2 Del Method 07/09/23 12:34 Room Air 07/09/23 11:00 Room Air 07/09/23 09:33 Room Air 07/09/23 07:57 Room Air 07/09/23 07:57 Room Air 07/09/23 07:57 Room Air 07/09/23 07:57 Room Air 07/09/23 08:00 Laboratory Results Cardiac Enzymes 07/09/23 07/09/23 Range/Units 07:57 10:13 AST 21 (13-39) U/L Troponin I High Sens 28.5 H 29.7 H (0-20) pg/ml CBC 07/09/23 Range/Units 07:57 WBC 10.51 (4.8-10.8) K/ul RBC 4.51 L (4.70-6.10) M/uL Hgb 15.4 (14.0-18.0) g/dl Hct 44.3 (42.0-52.0) % Plt Count 257 (130-400) K/uL Neut # (Auto) 8.48 H (1.40-6.50) K/uL Lymph # (Auto) 1.29 (1.20-3.40) K/uL [place] # (Auto) 0.43 (0.11-0.59) K/uL Eos # (Auto) 0.19 (0.00-0.50) K/uL Baso # (Auto) 0.09 (0.00-0.20) K/uL Comprehensive Metabolic Panel 07/09/23 Range/Units 07:57 Sodium 137 (136-145) mmol/L Potassium 3.9 (3.5-5.1) mmol/L Chloride 107 (98-107) mmol/L Carbon Dioxide 24 (21-32) mmol/L BUN 9 (6-23) mg/dl Creatinine 1.11 (0.6-1.4) mg/dl Glucose 122 H (70-99(Fasting)) mg/dl Calcium 9.4 (8.6-10.3) mg/dl AST 21 (13-39) U/L ALT 27 (7-52) U/L Alkaline Phosphatase 64 (34-104) U/L Total Protein 7.2 (6.0-8.3) gm/dl Albumin 4.6 (3.4-5.0) gm/dl Intake and Output 07/08/23 07/09/23 07/09/23 22:59 06:59 14:59 Other: Weight 61.4 kg Weight Measurement Method Built in [facility] Patient Weight 07/10/23 06:59 Weight 61.4 kg
[2023-07-09] MEDS: ISOSORBIDE MONO EXTENDED REL 30 MG TABCR PO SCH (15:24)
[2023-07-09] MEDS: NITROGLYCERIN SL 0.4 MG/TAB TAB SL PRN (16:23)
[2023-07-09] MEDS: MoRPHine SULFATE 2 MG/ML CARP IV PRN ×2 (16:31→19:23)
[2023-07-09] MEDS: ONDANSETRON INJ 2 MG/ML 2 ML VIAL IV PRN (16:31)
[2023-07-09] MEDS ORDERED: PROMETHAZINE HCL 12.5 MG in SODIUM CHLORIDE 0.9% 50 ML IV ONE (20:15)
[2023-07-09] MEDS: FAMOTIDINE 40 MG TABLET PO SCH (21:16)
[2023-07-09] MEDS: TICAGRELOR 90 MG TAB PO SCH (21:16)
[2023-07-09] MEDS: METOPROLOL SUCC 25MG EXT REL TAB PO SCH (21:16)
[2023-07-10 06:26] LABS: Hematocrit (blood only) 37.8 % (42.0-52.0); Hemoglobin 13.3 g/dl (14.0-18.0); Mean Corpuscular Hemoglobin 34.1 pg (25.0-34.0); Mean Corpuscular Hgb Conc 35.2 g/dL (32.0-36.0); Mean Corpuscular Volume 96.9 fL (80.0-100.0); Platelet Count 207 K/uL (130-400); RDW Coefficient of Variation 13.2 % (11.5-14.5); RDW Standard Deviation 46.9 fL (36.4-46.3); White Blood Count 11.25 K/ul (4.8-10.8)
[2023-07-10 06:44] LABS: BUN Creatinine Ratio 11.1 (10-20); Calcium 8.5 mg/dl (8.6-10.3); Creatinine Clr Calc Pharmacy 65.2 ml/min; Est GFR (African American) 90.3 ml/min; Est GFR (Non-African American) 77.9 ml/min; Potassium 3.8 mmol/L (3.5-5.1)
[2023-07-10] MEDS: ONDANSETRON INJ 2 MG/ML 2 ML VIAL IV PRN (08:06)
[2023-07-10] MEDS: MoRPHine SULFATE 2 MG/ML CARP IV PRN (09:55)
[2023-07-10] MEDS: ISOSORBIDE MONO EXTENDED REL 30 MG TABCR PO SCH (10:12)
[2023-07-10] MEDS: TICAGRELOR 90 MG TAB PO SCH ×2 (10:12→20:06)
[2023-07-10] MEDS: SUCRALFATE 1 GM/10 ML UDC PO SCH ×4 (10:12→20:07)
[2023-07-10] MEDS: SERTRALINE HCL 50 MG TABLET PO SCH (10:13)
[2023-07-10] MEDS: ASPIRIN 81 MG ECTAB PO SCH (10:13)
[2023-07-10] MEDS: EZETIMIBE 10 MG TAB PO SCH (10:13)
[2023-07-10] MEDS: ROSUVASTATIN CALCIUM 20 MG TAB PO SCH (10:13)
[2023-07-10] MEDS: PANTOprazole 40 MG TAB PO SCH (10:13)
[2023-07-10] MEDS: SPIRONOLACTONE 12.5 MG TAB PO SCH (10:14)
[2023-07-10] MEDS: MAGNESIUM OXIDE 400 MG TAB PO SCH (10:14)
--- NOTE | 2023-07-10 10:37 | Cardiology Progress Note ---
Date of Service July 10, 2023 Assessment & Plan (1) Chest pain: (2) Ischemic cardiomyopathy: Plan: Recommend repeat high-sensitivity troponin. Stat ECG performed at bedside demonstrates no acute changes. Stable inferior T wave inversion. Consider addition of unfractionated heparin if high-sensitivity troponin significantly trending upward. Continue treatment with aspirin, Brilinta, isosorbide monohydrate, metoprolol, spironolactone, Zetia, and rosuvastatin. Patient with history of GERD treated with both H2 shay and proton pump inhibitor. Nausea relieved with IV Zofran. Add carafate. Admission and Anticipated Discharge Date Admission Date: July 09, 2023 Subjective 52-year-old male seen and examined at the bedside. Slept overnight however experienced episode of nausea this a.m. requiring treatment with Zofran. He then consumed his a.m. meal and experienced another episode of mild chest discomfort. Treated with intravenous morphine with resolution of symptoms. Repeat ECG without changes. Review of Systems Review of Systems: All systems reviewed & are unremarkable except as noted in Subjective Physical Exam Constitutional: well nourished; no acute distress and not ill appearing Respiratory: no respiratory distress, no labored breathing and no retractions Auscultation: no crackles, no rales, no rhonchi and no wheezes Gastrointestinal (Abdomen): Inspection/Auscultation: normal bowel sounds; abdomen not distended Percussion/Palpation: abdomen soft; abdomen nontender, no guarding and abdomen not rigid Neurologic: CN's II-XI intact bilaterally and moves all extremities; no focal motor deficits Results & Data Vital Signs (Past 12 Hours) Vital Signs Temp Pulse Pulse Resp BP Pulse Ox O2 Del Method 07/10/23 08:15 37.2 C 55 L 18 116/69 96 Room Air 07/10/23 07:00 48 L 07/10/23 06:46 126 H 07/10/23 03:36 36.7 C 49 L 21 119/75 94 Room Air 07/09/23 23:46 53 L 07/09/23 23:24 36.9 C 46 L 17 111/62 95 Room Air Laboratory Results Cardiac Enzymes 07/09/23 07/09/23 07/09/23 Range/Units 10:13 15:27 21:10 Troponin I High Sens 29.7 H 30.8 H 24.0 H (0-20) pg/ml CBC 07/10/23 Range/Units 06:05 WBC 11.25 H (4.8-10.8) K/ul RBC 3.90 L (4.70-6.10) M/uL Hgb 13.3 L (14.0-18.0) g/dl Hct 37.8 L (42.0-52.0) % Plt Count 207 (130-400) K/uL Comprehensive Metabolic Panel 07/10/23 Range/Units 06:05 Sodium 135 L (136-145) mmol/L Potassium 3.8 (3.5-5.1) mmol/L Chloride 106 (98-107) mmol/L Carbon Dioxide 24 (21-32) mmol/L BUN 12 (6-23) mg/dl Creatinine 1.08 (0.6-1.4) mg/dl Glucose 123 H (70-99(Fasting)) mg/dl Calcium 8.5 L (8.6-10.3) mg/dl Intake and Output 07/09/23 07/10/23 07/10/23 22:59 06:59 14:59 Intake Total 50.5 / 170.5 120 / 170.5 Balance 50.5 / 170.5 120 / 170.5 Intake: IV 50.5 / 50.5 Promethazine HCl 12.5 mg In 50.5 / 50.5 Sodium Chloride 0.9% 50 ml @ 202 mls/hr IV ONE ONE Rx#: [id number] Oral 120 / 120 Other: # Unmeasured Voids 2 Weight 61.4 kg 58.3 kg Weight Measurement Method Standing Scale Built in [facility]
[2023-07-10] MEDS ORDERED: Heparin IV Adult Wt-Based Standard WITH Bolus Protocol IV STA (10:50)
[2023-07-10] MEDS ORDERED: HEPARIN SOD (PORCINE) 1000 UNIT/ML IV ONE (11:05)
[2023-07-10] MEDS ORDERED: HEPARIN SODIUM/DEXTROSE 25,000 UNITS/500 ML BAG IV SCH (11:15)
[2023-07-10 11:30] LABS: Partial Thromboplastin Time 29.1 Seconds (21.0-31.0); Prothrombin Time 10.6 Seconds (9.0-12.0)
--- NOTE | 2023-07-10 14:44 | Hospitalist Progress Note ---
Date of Service July 10, 2023 Assessment & Plan (1) Ischemic cardiomyopathy: (2) Non-sustained ventricular tachycardia: (3) Chest pain: (4) Chronic pancreatitis: (5) CAD (coronary artery disease): (6) Depression: (7) RADHA (generalized anxiety disorder): (8) HLD (hyperlipidemia): (9) Tobacco abuse: Plan This is a 52yo M with a complex medical history of extensive CAD s/p multiple stents, most recently in May 2023, HLD, pancreatitis, Casanova's esophagus, GERD, tobacco use disorder, generalized anxiety disorder presenting with intermittent CP at rest since last evening. Chest pain H/o extensive CAD Cardiomyopathy Chronic tobacco use Presenting with intermittent CP at rest since last evening, currently comfortable after 10mg total of IV morphine in ED Most recent intervention in early May 2023 with left circumflex territory STEMI s/p post stent placement 2D echo in May with LVEF 25%, improving to 35-40%. Medications limited due to hypotension Follows closely with [facility] cardiology. Current outpatient meds include aspirin, Crestor, Brilinta, Topro, Aldactone EKG abnormal-sinus bradycardia with right bundle branch block and pronounced T waves in anteroseptal leads Troponins are mildly elevated but does not support ACS Remains free from symptoms in the telemetry unit Repeat echo showed there is a large sized apical, septal, inferior and posterior wall motion abnormality with hypokinesis to akinesis of the segments, left ventricular systolic function is mildly reduced with EF of 35 to 40% and compared to prior study dated 06/08/2023 there has been no significant interval change Appreciate cardiology input and recommendation for possible cardiac cath Will not restart IV heparin as troponin is not significantly high-25.7 Paroxysmal VT Noted on previous admission at end of May Continue Toprol, monitor on tele No more arrhythmias RADHA Depression Continue Zoloft GERD Continue PPI, H2 shay HLD Continue statin DVT prophylaxis Started with intravenous heparin which has been discontinued We will start subcu heparin Code status: DNR/DNI PCP: Yemi Dispo: Obs PCU Admission and Anticipated Discharge Date Admission Date: July 09, 2023 Subjective 07/10/2023 The patient was seen and examined in telemetry unit Was admitted with chest pain at rest with radiation to the left upper extremity and shortness of breath Denies any pain today and so far no evidence of ACS and troponin is mildly elevated Has anxiety symptoms Review of Systems Review of Systems: All systems reviewed and are unremarkable except as noted below Physical Exam Physical Exam: Sitting on a chair without any acute distress Constitutional: + ill appearing and average body habitus Eyes: PERRL, conjunctivae normal, anicteric sclerae ENMT: external ear and nose normal, oropharynx normal Neck: trachea midline, no thyromegaly Respiratory: no respiratory distress Auscultation: lungs clear to auscultation bilaterally Cardiovascular: Rate/Rhythm: regular rate, regular rhythm and + bradycardic Heart Sounds: normal S1 and normal S2; no murmur Extremities: no edema Gastrointestinal (Abdomen): Inspection/Auscultation: normal bowel sounds; abdomen not distended Percussion/Palpation: abdomen soft; abdomen nontender Musculoskeletal: No acute arthritis involving any joint Neurologic: normal touch/pain/proprioception and moves all extremities; no focal motor deficits Psychiatric: A+Ox3, euthymic affect Lymphatic: no cervical or axillary lymphadenopathy Results & Data Results & Data Vital Signs (Past 12 Hours) Vital Signs Temp Pulse Pulse Resp BP Pulse Ox O2 Del Method 07/10/23 11:40 36.8 C 54 L 17 119/72 95 Room Air 07/10/23 08:15 37.2 C 55 L 18 116/69 96 Room Air 07/10/23 07:00 48 L 07/10/23 06:46 126 H 07/10/23 03:36 36.7 C 49 L 21 119/75 94 Room Air Laboratory Results Short CBC 07/10/23 Range/Units 06:05 WBC 11.25 H (4.8-10.8) K/ul Hgb 13.3 L (14.0-18.0) g/dl Hct 37.8 L (42.0-52.0) % Plt Count 207 (130-400) K/uL BMP 07/10/23 06:05 Sodium 135 L Potassium 3.8 Chloride 106 Carbon Dioxide 24 BUN 12 Creatinine 1.08 Glucose 123 H Calcium 8.5 L Medications Administered Current Inpatient Medications Acetaminophen (Acetaminophen 325 Mg Tab) 650 mg PO Q4H PRN PRN Reason: Pain or Fever Stop: 08/08/23 12:33 Albuterol (Albuterol 0.083% Nebu Soln 3 Ml Vial) 2.5 mg INH Q4H PRN; Protocol PRN Reason: Shortness Of Breath Or Wheezing Stop: 08/08/23 10:29 Aspirin (Aspirin 81 Mg Ectab) 81 mg PO [facility] Stop: 08/09/23 08:59 Last Admin: 07/10/23 10:13 Dose: 81 mg Dicyclomine HCl (Dicyclomine Hcl 10 Mg Cap) 10 mg PO BID PRN PRN Reason: Abdominal Pain Stop: 08/08/23 10:29 Ezetimibe (Ezetimibe 10 Mg Tab) 10 mg PO [facility] Stop: 08/09/23 08:59 Last Admin: 07/10/23 10:13 Dose: 10 mg Famotidine (Famotidine 40 Mg Tablet) 40 mg PO [facility] Stop: 08/08/23 20:59 Last Admin: 07/09/23 21:16 Dose: 40 mg Isosorbide Mononitrate (Isosorbide [place] Extended Rel 30 Mg Tabcr) 30 mg PO [facility] Stop: 08/08/23 14:59 Last Admin: 07/10/23 10:12 Dose: 30 mg Magnesium Oxide (Magnesium Oxide 400 Mg Tab) 400 mg PO [facility] Stop: 08/09/23 08:59 Last Admin: 07/10/23 10:14 Dose: 400 mg Metoprolol Succinate (Metoprolol Succ 25mg Ext Rel Tab) 12.5 mg PO [facility] Stop: 08/08/23 20:59 Last Admin: 07/09/23 21:16 Dose: 12.5 mg Morphine Sulfate (Morphine Sulfate 2 Mg/Ml [place]) 2 mg IV Q3H PRN PRN Reason: Pain Stop: 07/23/23 16:21 Last Admin: 07/10/23 09:55 Dose: 2 mg Nitroglycerin (Nitroglycerin Sl 0.4 Mg/Tab Tab) 0.4 mg SL Q5M PRN PRN Reason: Chest Pain Stop: 08/08/23 09:53 Last Admin: 07/09/23 16:23 Dose: 0.4 mg Ondansetron HCl (Ondansetron Inj 2 Mg/Ml 2 Ml Vial) 4 mg IV Q6H PRN PRN Reason: Nausea Stop: 08/08/23 12:33 Last Admin: 07/10/23 08:06 Dose: 4 mg Pantoprazole Sodium (Pantoprazole 40 Mg Tab) 40 mg PO [facility] Stop: 08/09/23 08:59 Last Admin: 07/10/23 10:13 Dose: 40 mg Polyethylene Glycol (Polyethylene (Miralax) 17 Gm Pack) 17 gm PO DAILY PRN PRN Reason: Constipation Stop: 08/08/23 12:33 Rosuvastatin Calcium (Rosuvastatin Calcium 20 Mg Tab) [facility] Stop: 08/09/23 08:59 Last Admin: 07/10/23 10:13 Dose: 40 mg Sertraline HCl (Sertraline Hcl 50 Mg Tablet) 50 mg PO [facility] Stop: 08/09/23 08:59 Last Admin: 07/10/23 10:13 Dose: 50 mg Spironolactone (Spironolactone 12.5 Mg Tab) 12.5 mg [facility] Stop: 08/09/23 08:59 Last Admin: 07/10/23 10:14 Dose: 12.5 mg Sucralfate (Sucralfate 1 Gm/10 Ml Udc) [facility] Stop: 08/09/23 11:29 Last Admin: 07/10/23 12:00 Dose: Not Given Ticagrelor (Ticagrelor 90 Mg Tab) 90 mg PO BID [facility] Stop: 08/08/23 20:59 Last Admin: 07/10/23 10:12 Dose: 90 mg
[2023-07-10] MEDS: METOPROLOL SUCC 25MG EXT REL TAB PO SCH (19:57)
[2023-07-10] MEDS: FAMOTIDINE 40 MG TABLET PO SCH (19:57)
[2023-07-10] MEDS: HEPARIN SOD 5,000 UNIT/0.5 ML VIAL SQ SCH (20:07)
--- NOTE | 2023-07-10 21:47 | Electrocardiogram Report ---
Test Reason : Blood Pressure : / mmHG Vent. Rate : 050 BPM Atrial Rate : 050 BPM P-R Int : 120 ms QRS Dur : 088 ms QT Int : 400 ms P-R-T Axes : 064 000 -12 degrees QTc Int : 364 ms Sinus bradycardia Inferolateral infarct T wave abnormality, consider inferior ischemia Abnormal ECG When compared with ECG of 08-JUN-2023 05:02, No significant change Reconfirmed by Jaren Crow ([id number]) on 07/10/2023 9:47:13 PM Referred By: REFERRED SELF Confirmed By:Jaren Crow
--- NOTE | 2023-07-10 22:17 | Electrocardiogram Report ---
Test Reason : Blood Pressure : / mmHG Vent. Rate : 050 BPM Atrial Rate : 050 BPM P-R Int : 124 ms QRS Dur : 084 ms QT Int : 424 ms P-R-T Axes : 052 -07 -10 degrees QTc Int : 386 ms Sinus bradycardia Inferolateral infarct Abnormal ECG When compared with ECG of 09-JUL-2023 07:52, No significant change Confirmed by Jaren Crow ([id number]) on 07/10/2023 10:17:22 PM Referred By: REFERRED SELF Confirmed By:Jaren Crow
--- NOTE | 2023-07-10 23:05 | Electrocardiogram Report ---
Test Reason : Blood Pressure : / mmHG Vent. Rate : 051 BPM Atrial Rate : 051 BPM P-R Int : 124 ms QRS Dur : 098 ms QT Int : 414 ms P-R-T Axes : 061 -20 -21 degrees QTc Int : 381 ms Sinus bradycardia Inferior-posterior infarct (cited on or before 20-MAY-2023) Abnormal ECG When compared with ECG of 09-JUL-2023 09:15, Nonspecific T wave abnormality no longer evident in Anterolateral leads Confirmed by Jaren Crow ([id number]) on 07/10/2023 11:05:42 PM Referred By: REFERRED SELF Confirmed By:Jaren Crow
--- NOTE | 2023-07-10 23:23 | Electrocardiogram Report ---
Test Reason : Blood Pressure : / mmHG Vent. Rate : 050 BPM Atrial Rate : 050 BPM P-R Int : 124 ms QRS Dur : 094 ms QT Int : 404 ms P-R-T Axes : 058 -31 -12 degrees QTc Int : 368 ms Sinus bradycardia Possible Left atrial enlargement Left axis deviation Inferior infarct (cited on or before 20-MAY-2023) Abnormal ECG When compared with ECG of 10-JUL-2023 05:42, No significant change was found Confirmed by Jaren Crow ([id number]) on 07/10/2023 11:23:41 PM Referred By: REFERRED SELF Confirmed By:Jaren Crow
[2023-07-11] MEDS: NITROGLYCERIN SL 0.4 MG/TAB TAB SL PRN (00:06)
[2023-07-11] MEDS: MoRPHine SULFATE 2 MG/ML CARP IV PRN ×5 (03:27→21:01)
[2023-07-11 06:53] LABS: Hematocrit (blood only) 37.6 % (42.0-52.0); Hemoglobin 13.7 g/dl (14.0-18.0); Mean Corpuscular Hemoglobin 34.2 pg (25.0-34.0); Mean Corpuscular Hgb Conc 36.4 g/dL (32.0-36.0); Mean Corpuscular Volume 93.8 fL (80.0-100.0); Mean Platelet Volume 9.3 fL (9.4-12.4); Platelet Count 215 K/uL (130-400); RDW Coefficient of Variation 12.8 % (11.5-14.5); RDW Standard Deviation 44.5 fL (36.4-46.3); Red Blood Count 4.01 M/uL (4.70-6.10); White Blood Count 7.27 K/ul (4.8-10.8)
[2023-07-11 07:02] LABS: BUN Creatinine Ratio 17.6 (10-20); Calcium 8.6 mg/dl (8.6-10.3); Creatinine Clr Calc Pharmacy 77.4 ml/min; Est GFR (African American) 111.1 ml/min; Est GFR (Non-African American) 95.9 ml/min; Potassium 4.1 mmol/L (3.5-5.1)
[2023-07-11] MEDS: HEPARIN SOD 5,000 UNIT/0.5 ML VIAL SQ SCH ×2 (08:05→20:06)
[2023-07-11] MEDS: ASPIRIN 81 MG ECTAB PO SCH (08:05)
[2023-07-11] MEDS: SUCRALFATE 1 GM/10 ML UDC PO SCH ×4 (08:05→20:06)
[2023-07-11] MEDS: MAGNESIUM OXIDE 400 MG TAB PO SCH (08:05)
[2023-07-11] MEDS: SERTRALINE HCL 50 MG TABLET PO SCH (08:05)
[2023-07-11] MEDS: EZETIMIBE 10 MG TAB PO SCH (08:05)
[2023-07-11] MEDS: SPIRONOLACTONE 12.5 MG TAB PO SCH (08:05)
[2023-07-11] MEDS: ROSUVASTATIN CALCIUM 20 MG TAB PO SCH (08:05)
[2023-07-11] MEDS: PANTOprazole 40 MG TAB PO SCH (08:06)
[2023-07-11] MEDS: ISOSORBIDE MONO EXTENDED REL 30 MG TABCR PO SCH (08:06)
[2023-07-11] MEDS: TICAGRELOR 90 MG TAB PO SCH ×2 (09:21→20:11)
[2023-07-11] MEDS ORDERED: ACETAMINOPHEN 325 MG TAB PO PRN (11:18)
[2023-07-11] MEDS ORDERED: oxyCODONE HCL IR 5 MG TAB (IMMEDIATE RELEASE) PO PRN (11:18)
--- NOTE | 2023-07-11 11:34 | Cardiology Progress Note ---
Date of Service July 11, 2023 Assessment & Plan (1) Chest pain: (2) Ischemic cardiomyopathy: (3) GERD (gastroesophageal reflux disease): Plan Symptoms improved with addition of Carafate (continue at discharge). Continue cardiac medications including aspirin, Brilinta, isosorbide monohydrate (added during hospitalization), metoprolol, spironolactone, Zetia, and rosuvastatin. No further inpatient cardiac testing or intervention recommended at this time. Outpatient cardiology follow-up as scheduled. Admission and Anticipated Discharge Date Admission Date: July 09, 2023 Subjective Patient seen and examined at the bedside. Feeling well today. Carafate initiated yesterday with improvement of resting chest discomfort. Tolerating medications including isosorbide monohydrate added during hospitalization. Currently offers no complaints. Requesting discharge if possible. Review of Systems Review of Systems: All systems reviewed & are unremarkable except as noted in Subjective Physical Exam Constitutional: well nourished; no acute distress and not ill appearing Respiratory: no respiratory distress, no labored breathing and no retractions Auscultation: no crackles, no rales, no rhonchi and no wheezes Gastrointestinal (Abdomen): Inspection/Auscultation: normal bowel sounds; abdomen not distended Percussion/Palpation: abdomen soft; abdomen nontender, no guarding and abdomen not rigid Neurologic: CN's II-XI intact bilaterally and moves all extremities; no focal motor deficits Results & Data Vital Signs (Past 12 Hours) Vital Signs Temp Pulse Pulse Resp BP BP Pulse Ox 07/11/23 07:42 36.8 C 98 H 17 108/67 94 07/11/23 07:33 07/11/23 07:16 57 L 07/11/23 03:06 36.8 C 67 17 112/71 96 07/11/23 00:03 67 20 129/88 97 07/10/23 23:44 63 O2 Del Method 07/11/23 07:42 Room Air 07/11/23 07:33 Room Air 07/11/23 07:16 07/11/23 03:06 Room Air 07/11/23 00:03 Room Air 07/10/23 23:44 Laboratory Results CBC 07/11/23 Range/Units 06:04 WBC 7.27 (4.8-10.8) K/ul RBC 4.01 L (4.70-6.10) M/uL Hgb 13.7 L (14.0-18.0) g/dl Hct 37.6 L (42.0-52.0) % Plt Count 215 (130-400) K/uL Comprehensive Metabolic Panel 07/11/23 Range/Units 06:04 Sodium 134 L (136-145) mmol/L Potassium 4.1 (3.5-5.1) mmol/L Chloride 106 (98-107) mmol/L Carbon Dioxide 22 (21-32) mmol/L BUN 16 (6-23) mg/dl Creatinine 0.91 (0.6-1.4) mg/dl Glucose 91 (70-99(Fasting)) mg/dl Calcium 8.6 (8.6-10.3) mg/dl Intake and Output 07/10/23 07/11/23 07/11/23 22:59 06:59 14:59 Other: # Unmeasured Voids 1 1
[2023-07-11] MEDS: SODIUM CHLORIDE 0.9% 500 ML IV SCH ×2 (11:49→20:40)
--- NOTE | 2023-07-11 12:17 | Hospitalist Progress Note ---
Date of Service July 11, 2023 Assessment & Plan (1) Ischemic cardiomyopathy: (2) Non-sustained ventricular tachycardia: (3) Chest pain: (4) Chronic pancreatitis: (5) CAD (coronary artery disease): (6) Depression: (7) RADHA (generalized anxiety disorder): (8) HLD (hyperlipidemia): (9) Tobacco abuse: Plan This is a 52yo M with a complex medical history of extensive CAD s/p multiple stents, most recently in May 2023, HLD, pancreatitis, Casanvoa's esophagus, GERD, tobacco use disorder, generalized anxiety disorder presenting with intermittent CP at rest since last evening. Chest pain H/o extensive CAD Cardiomyopathy Chronic tobacco use Presenting with intermittent CP at rest since a day prior to admission Most recent intervention in early May 2023 with left circumflex territory STEMI s/p post stent placement EKG abnormal-sinus bradycardia with right bundle branch block and pronounced T waves in anteroseptal leads Echocardiology done showed large sized apical, septal, inferior and posterior wall motion abnormality with hypokinesis to akinesis of segments. EF of 25-40%. High sensitivity troponin was 29 >30 > 24> 25. Flat Telemetry does not show any events Continue on aspirin, Brilinta, rosuvastatin, metoprolol. Imdur added during the hospitalization. Continue pantoprazole and Carafate. Abdominal pain Chronic pancreatitis: Patient reports epigastric pain today. Will obtain lipase Placed on IV fluid with normal saline at 60 cc/h Pain control with Tylenol, oxycodone and morphine. Paroxysmal VT Noted on previous admission at end of May Continue Toprol, monitor on tele No more arrhythmias RADHA Depression Continue Zoloft GERD Continue PPI, H2 shay HLD Continue statin DVT prophylaxis Started with intravenous heparin which has been discontinued We will start subcu heparin Code status: DNR/DNI PCP: Yemi Dispo: Hospitalized for chest pain, likely anginal. Chest pain improved. However, patient has new onset abdominal pain today requiring pain medication and further monitoring to remain in the hospital. Time spent evaluating patient, direct bedside care, chart review, placing orders, interpretation of diagnostic studies, discussion with consultants, patient, and family members, as well as other required patient management activities is 60 minutes Please note the above document was generated using voice recognition software. It may contain grammatical, syntax or spelling errors. Any formal questions or concerns about the content, text or information contained within the body of this dictation should be directly addressed to the provider for clarification Admission and Anticipated Discharge Date Admission Date: July 09, 2023 Subjective Patient seen and examined at bedside. He reports that his chest pain has resolved. However, starting to have abdominal pain secondary to his chronic pancreatitis Review of Systems Review of Systems: All systems reviewed & are unremarkable except as noted in Subjective Physical Exam Physical Exam: Constitutional: Alert orient x3; not in distress. Appears comfortable. Respiratory: normal respiratory effort, lungs clear to auscultation, no wheeze, rales, rhonchi. Normal insp/exp effort, no accessory muscle use Cardiovascular: RRR, no murmur, no edema Vessels: no JVD or carotid bruit Chest: normal inspection of chest Abdomen:/Tenderness in epigastric region. Musculoskeletal: no cyanosis or clubbing, extremities motor strength 5/5 Skin: no rashes, warm and dry normal turgor Neurologic: PERRL, EOMI, accommodation nl, no face palsy, no dysarthria CN's II- XI intact bilaterally and moves all extremities Psychiatric: A+Ox3, euthymic affect Results & Data Results & Data Vital Signs (Past 12 Hours) Vital Signs Temp Pulse Pulse Resp BP Pulse Ox O2 Del Method 07/11/23 11:35 37.0 C 69 17 113/63 96 Room Air 07/11/23 07:42 36.8 C 98 H 17 108/67 94 Room Air 07/11/23 07:33 Room Air 07/11/23 07:16 57 L 07/11/23 03:06 36.8 C 67 17 112/71 96 Room Air
--- NOTE | 2023-07-11 15:57 | Electrocardiogram Report ---
Test Reason : Blood Pressure : / mmHG Vent. Rate : 075 BPM Atrial Rate : 056 BPM P-R Int : 120 ms QRS Dur : 090 ms QT Int : 396 ms P-R-T Axes : 063 -41 -19 degrees QTc Int : 442 ms Sinus bradycardia Left axis deviation Possible Old Anterolateral infarct Possible Old Inferior-posterior infarct (cited on or before 10-JUL-2023) Abnormal ECG When compared with ECG of 10-JUL-2023 09:52, Vent. rate has increased BY 25 BPM Confirmed by Paul Livingston ([id number]) on 07/11/2023 3:57:13 PM Referred By: REFERRED SELF Confirmed By:Paul Livingston
[2023-07-11] MEDS: FAMOTIDINE 40 MG TABLET PO SCH (20:08)
[2023-07-11] MEDS: METOPROLOL SUCC 25MG EXT REL TAB PO SCH (20:08)
[2023-07-12] MEDS: MoRPHine SULFATE 2 MG/ML CARP IV PRN ×2 (00:24→03:38)
[2023-07-12] MEDS ORDERED: HYDROmorphone INJ 0.5 MG/0.5 ML SYR IV STA (03:51)
[2023-07-12] MEDS: SODIUM CHLORIDE 0.9% 500 ML IV SCH ×2 (04:56→10:16)
[2023-07-12 07:41] LABS: BUN Creatinine Ratio 12.8 (10-20); Calcium 8.4 mg/dl (8.6-10.3); Creatinine Clr Calc Pharmacy 75.1 ml/min; Est GFR (African American) 106.9 ml/min; Est GFR (Non-African American) 92.2 ml/min; Magnesium 1.8 mg/dl (1.7-2.4); Potassium 4.4 mmol/L (3.5-5.1)
--- NOTE | 2023-07-12 09:49 | Cardiology Progress Note ---
Date of Service July 12, 2023 Assessment & Plan (1) Chest pain: (2) Ischemic cardiomyopathy: (3) GERD (gastroesophageal reflux disease): Plan Symptoms (resting chest discomfort) improved with addition of Carafate (continue at discharge). Continue cardiac medications including aspirin, Brilinta, isosorbide monohydrate (added during hospitalization), metoprolol, spironolactone, Zetia, and rosuvastatin. No further inpatient cardiac testing or intervention recommended at this time. Management of chronic pancreatitis as per internal medicine. Admission and Anticipated Discharge Date Admission Date: July 11, 2023 Subjective Patient seen and examined at the bedside. No recurrent chest discomfort overnight. He was not discharged yesterday due to recurrent abdominal pain attributed to chronic pancreatitis. Lipase mildly elevated. Telemetry reveals sinus rhythm with a short run of PAT. Feeling well from a cardiovascular perspective. Review of Systems Review of Systems: All systems reviewed & are unremarkable except as noted in Subjective Physical Exam Constitutional: well nourished; no acute distress and not ill appearing Respiratory: no respiratory distress, no labored breathing and no retractions Auscultation: no crackles, no rales, no rhonchi and no wheezes Gastrointestinal (Abdomen): Inspection/Auscultation: normal bowel sounds; abdomen not distended Percussion/Palpation: + abdomen tender and abdomen soft; no guarding and abdomen not rigid Neurologic: CN's II-XI intact bilaterally and moves all extremities; no focal motor deficits Results & Data Vital Signs (Past 12 Hours) Vital Signs Temp Pulse Pulse Resp BP BP Pulse Ox 07/12/23 07:22 36.7 C 60 20 116/79 97 07/12/23 03:16 36.7 C 58 L 17 144/84 H 97 07/11/23 23:17 36.6 C 75 17 135/73 97 07/11/23 23:10 60 O2 Del Method 07/12/23 07:22 Room Air 07/12/23 03:16 Room Air 07/11/23 23:17 Room Air 07/11/23 23:10 Laboratory Results Comprehensive Metabolic Panel 07/12/23 Range/Units 07:08 Sodium 136 (136-145) mmol/L Potassium 4.4 (3.5-5.1) mmol/L Chloride 106 (98-107) mmol/L Carbon Dioxide 27 (21-32) mmol/L BUN 12 (6-23) mg/dl Creatinine 0.94 (0.6-1.4) mg/dl Glucose 86 (70-99(Fasting)) mg/dl Calcium 8.4 L (8.6-10.3) mg/dl Intake and Output 07/11/23 07/12/23 07/12/23 22:59 06:59 14:59 Intake Total 1100 / 1596 496 / 1596 Balance 1100 / 1596 496 / 1596 Intake: IV 500 / 996 496 / 996 Sodium Chloride 0.9% 500 ml @ 500 / 996 496 / 996 100 mls/hr IV .Q5H [facility] Rx#: [id number] Oral 600 / 600 Other: # Unmeasured Voids 1 2 Weight 58.4 kg Weight [facility]
[2023-07-12] MEDS: HEPARIN SOD 5,000 UNIT/0.5 ML VIAL SQ SCH (10:12)
[2023-07-12] MEDS: SUCRALFATE 1 GM/10 ML UDC PO SCH ×2 (10:12→12:21)
[2023-07-12] MEDS: ROSUVASTATIN CALCIUM 20 MG TAB PO SCH (10:13)
[2023-07-12] MEDS: SERTRALINE HCL 50 MG TABLET PO SCH (10:13)
[2023-07-12] MEDS: SPIRONOLACTONE 12.5 MG TAB PO SCH (10:13)
[2023-07-12] MEDS: PANTOprazole 40 MG TAB PO SCH (10:13)
[2023-07-12] MEDS: EZETIMIBE 10 MG TAB PO SCH (10:14)
[2023-07-12] MEDS: ISOSORBIDE MONO EXTENDED REL 30 MG TABCR PO SCH (10:14)
[2023-07-12] MEDS: MAGNESIUM OXIDE 400 MG TAB PO SCH (10:14)
[2023-07-12] MEDS: ASPIRIN 81 MG ECTAB PO SCH (10:14)
[2023-07-12] MEDS: TICAGRELOR 90 MG TAB PO SCH (10:36)
--- NOTE | 2023-07-12 12:36 | Discharge Summary ---
Date of Service July 12, 2023 Admission HPI Per Admitting Provider This is a 52yo M with a complex medical history of extensive CAD s/p multiple stents, most recently in May 2023, HLD, pancreatitis, Casanova's esophagus, GERD, tobacco use disorder, generalized anxiety disorder presenting with intermittent CP at rest since last evening. CP began around 2100 last evening that relieved with ntg and recurred around midnight and woke him up. Took ntg and it resolved as was able to go back to sleep. CP came back when getting ready for work this morning and did not resolve with ntg so came to ED for further evaluation. Describes CP as substernal with radiation to L arm with intermittent LUE numbness. Associated with diaphoresis, nausea and SOB. Episode felt similar to former MIs. Has been using ntg on and off over the past few week and just returned to work. Feels better in ED after morphine. No medication changes and says he has been compliant. Took his AM medications before arrival. Since last PA in May, has developed some numbness and tingling in bilateral lower extremities. Had successfully quit smoking for a month but has started to smoke 1-2 cigarettes a week. Currently resting comfortably, denying F/C, cough, congestion, SOB, N/V, abdominal pain, dysuria, diarrhea or constipation. Decreased appetite. Was admitted in early May 2023 with left circumflex territory STEMI s/p post stent placement, discharged on aspirin and Brilinta, patient reports compliance. Readmitted at the end of May for CP with ACS rule out and was found to have NSVT. Has been seen in f/[facility], due for repeat echo in 2-3 mo. Admission Exam Per Admitting Provider Constitutional: Alert orient x3; not in distress. Appears comfortable. Respiratory: normal respiratory effort, lungs clear to auscultation, no wheeze, rales, rhonchi. Normal insp/exp effort, no accessory muscle use Cardiovascular: RRR, no murmur, no edema Vessels: no JVD or carotid bruit Chest: normal inspection of chest Abdomen: normal bowel sounds, soft, nontender, no hepatosplenomegaly Musculoskeletal: no cyanosis or clubbing, extremities motor strength 5/5 Skin: no rashes, warm and dry normal turgor Neurologic: PERRL, EOMI, accommodation nl, no face palsy, no dysarthria CN's II- XI intact bilaterally and moves all extremities Psychiatric: A+Ox3, euthymic affect Principal Diagnosis Chest pain H/o extensive CAD Cardiomyopathy Chronic tobacco use Discharge Exam Constitutional: Alert orient x3; not in distress. Appears comfortable. Respiratory: normal respiratory effort, lungs clear to auscultation, no wheeze, rales, rhonchi. Normal insp/exp effort, no accessory muscle use Cardiovascular: RRR, no murmur, no edema Vessels: no JVD or carotid bruit Chest: normal inspection of chest Abdomen:/Tenderness in epigastric region. Musculoskeletal: no cyanosis or clubbing, extremities motor strength 5/5 Skin: no rashes, warm and dry normal turgor Neurologic: PERRL, EOMI, accommodation nl, no face palsy, no dysarthria CN's II- XI intact bilaterally and moves all extremities Psychiatric: A+Ox3, euthymic affect Discharge Data Allergies Allergy/AdvReac Type Severity Reaction Status Date / Time No Known Allergies Allergy Verified 06/07/23 17:19 Consultations 07/09/23 09:01 ED Decision to Admit Stat 07/09/23 09:54 Consult Cardiology Routine Hospital Course (1) Ischemic cardiomyopathy: (2) Non-sustained ventricular tachycardia: (3) Chest pain: (4) Chronic pancreatitis: (5) CAD (coronary artery disease): (6) Depression: (7) RADHA (generalized anxiety disorder): (8) HLD (hyperlipidemia): (9) Tobacco abuse: Plan This is a 52yo M with a complex medical history of extensive CAD s/p multiple stents, most recently in May 2023, HLD, pancreatitis, Casanova's esophagus, GERD, tobacco use disorder, generalized anxiety disorder presenting with intermittent CP at rest for 1 day. Chest pain H/o extensive CAD Cardiomyopathy Chronic tobacco use Presenting with intermittent CP at rest since a day prior to admission Most recent intervention in early May 2023 with left circumflex territory STEMI s/p post stent placement EKG abnormal-sinus bradycardia with right bundle branch block and pronounced T waves in anteroseptal leads Echocardiology done showed large sized apical, septal, inferior and posterior wall motion abnormality with hypokinesis to akinesis of segments. EF of 25-40%. High sensitivity troponin was 29 >30 > 24> 25. Flat Telemetry does not show any events During the hospitalization, patient was monitored on telemetry. High sensitive troponin was not significantly elevated. Imdur was added for pain control; patient reported resolution of the chest pain. Telemetry did not show any significant events during the hospitalization. Abdominal pain Chronic pancreatitis: Patient reports epigastric pain during the hospitalization. Lipase slightly elevated. Treated with iv fluids and pain control. Patient reported resolution of abdominal pain. Please note the above document was generated using voice recognition software. It may contain grammatical, syntax or spelling errors. Any formal questions or concerns about the content, text or information contained within the body of this dictation should be directly addressed to the provider for clarification Total Time Total Time Spent Total Time Spent (In Minutes): 35 Total Time Includes: Examination of the Patient, Discharge Planning, Medication Reconciliation, Communication With Other Providers and Other Discharge Plan Discharge Items Patient Disposition: Home - Self-Care Reason For Visit: CP Discharge Diagnosis: Angina Ischemic cardiomyopathy Activity: Resume your previous activity Non-emergency contact: Primary Care Provider Call non-emergency contact if: you have any medication questions and your symptoms worsen Follow-up/Referrals: Wade Bragg MD [Primary Care Provider] - (Date & Time 07/16/2023 1:40 PM Provider Josh Salomon MD [facility] ) Diet: Regular Addtl Attending Provider Instructions: You were admitted to the hospital due to chest pain. The likely cause for the chest pain is due to ischemic cardiomyopathy. You are evaluated by cardiology during hospitalization. You are prescribed Imdur 30 mg to be taken once a day. You are also prescribed Carafate as recommended by cardiology for abdominal pain. Please continue to take care of all the medications as prescribed before. An appointment will be made up with your primary care doctor for next week. Cardiology will also set up their appointment. Pending Studies at Discharge: No Stand-Alone Forms: My [employer], Smoking Cessation Medications and DC Order Prescriptions: New isosorbide mononitrate 30 mg Tablet Extended Release 24 Hr 30 mg PO QAM Qty: 60 0RF sucralfate [Carafate] 1 gram tablet 1 g PO ACHS 28 Days Qty: 28 0RF Continued sertraline [Zoloft] 50 mg tablet 50 mg PO QAM nitroglycerin [Nitrostat] 0.4 mg tablet, sublingual 0.4 mg Sublingual UD PRN (Reason: Chest Pain) famotidine 40 mg tablet 40 mg PO HS dicyclomine 10 mg capsule 10 mg PO BID PRN (Reason: Abdominal Pain) ezetimibe 10 mg tablet 10 mg PO QAM magnesium oxide 400 mg magnesium Tablet 400 mg PO QAM pantoprazole 40 mg tablet,delayed release (DR/EC) 40 mg PO QAM aspirin 81 mg tablet,delayed release (DR/EC) 81 mg PO QAM Qty: 30 0RF Brilinta 90 mg Tablet 90 mg PO BID Qty: 60 0RF rosuvastatin 40 mg tablet 40 mg PO QAM spironolactone 25 mg tablet 12.5 mg PO QAM Qty: 15 0RF albuterol sulfate 2.5 mg /3 mL (0.083 %) Solution For Nebulization 2.5 mg INHALATION Q4H PRN (Reason: Shortness Of Breath Or Wheezing) metoprolol succinate 25 mg tablet extended release 24 hr 12.5 mg PO HS Discharge Orders: Discharge Order (Routine); Ordered 07/12/23 Ordered By: Lukas Santos Admission Data Admit Date/Time: 07/11/23 12:15 Attending Provider: Lukas Santos Admit Provider: Lukas Santos Primary Care Provider: Wade Bragg Other Providers: Herb Tamez ; Lukas Santos ; Fay Thayer
--- NOTE | 2023-07-12 14:47 | Electrocardiogram Report ---
Test Reason : Blood Pressure : / mmHG Vent. Rate : 065 BPM Atrial Rate : 065 BPM P-R Int : 118 ms QRS Dur : 088 ms QT Int : 406 ms P-R-T Axes : 064 -08 -13 degrees QTc Int : 422 ms Normal sinus rhythm with sinus arrhythmia ppossible Inferior-posterior infarct (cited on or before 10-JUL-2023) Abnormal ECG When compared with ECG of 11-JUL-2023 09:38, No significant change was found Confirmed by Dariel Parada ([id number]) on 07/12/2023 2:47:20 PM Referred By: REFERRED SELF Confirmed By:Johnny Parada
[2023-07-22] MEDS ORDERED: LIDOCAINE 1% LOCAL 20 ML VIAL ONE (16:08)
== END 2023-07-12 14:22 | disposition home or self-care (01) | DRG 313 ==
LOC: EDINP 07:48 → ED 07:48 → SUATTDRO 09:53 → 2S 14:30
DX: R07.9 Chest pain, unspecified; I25.10 Atherosclerotic heart disease of native coronary artery without angina pectoris; F41.1 Generalized anxiety disorder; K86.1 Other chronic pancreatitis; F32.A Depression, unspecified; Z87.891 Personal history of nicotine dependence; Z79.899 Other long term (current) drug therapy; Z66 Do not resuscitate; K85.90 Acute pancreatitis without necrosis or infection, unspecified; K21.9 Gastro-esophageal reflux disease without esophagitis; E78.5 Hyperlipidemia, unspecified; X58.XXXA Exposure to other specified factors, initial encounter; I25.5 Ischemic cardiomyopathy; F17.210 Nicotine dependence, cigarettes, uncomplicated; Z79.82 Long term (current) use of aspirin; I47.20 Ventricular tachycardia, unspecified; R23.4 Changes in skin texture; S30.1XXA Contusion of abdominal wall, initial encounter

== ENCOUNTER 2023-10-21 21:08 | Observation (INO) ==
--- NOTE | 2023-10-21 21:21 | Emergency Department Note ---
Impression & Plan Acute pancreatitis, Chest pain ED Provider Note NAME: SAMUEL RIDER AGE: 53 SEX: M : 1970 ARRIVES VIA: Ambulance INFORMANT: Patient ED PROVIDER(S): Florentino Smith DO CHIEF COMPLAINT: chest pain HPI: Patient is a 53-year-old male with a past medical history 5 previous MIs, 10+ stents, ischemic cardiomyopathy, pancreatitis, hyperlipidemia who presents the ER for chest pain which started around 530 to 6 PM. He also notes that he has pain in the epigastric region. The epigastric pain feels like his pancreatitis. He notes that sometimes with his pancreatitis he gets chest pain. Midsternal described as a tightness associate with shortness of breath. Was brought in by EMS. He did get nauseated and nearly vomited. Symptoms have improved significantly with nitro and are barely noticeable. Did have some shortness of breath with it. No dysuria, urgency, or frequency. No other exacerbating or remitting factors. ADDITIONAL HISTORY OBTAINED: Per HPI Chronic Medical/Social Conditions Affecting Care: Per HPI PAST MEDICAL HISTORY:See Below PAST SURGICAL HISTORY:See Below FAMILY HISTORY:See Below SOCIAL HISTORY:See Below HOME MEDICATIONS:See Below ALLERGIES:See Below VITALS:See Below PHYSICAL EXAMINATION: GENERAL: Sitting up in bed, alert, well appearing, well nourished, no distress, non-toxic EYE EXAM: normal conjunctiva. OROPHARYNX: no exudate, no erythema, lips, buccal mucosa, and tongue normal and mucous membranes are moist NECK: supple, no nuchal rigidity, no adenopathy, non-tender LUNGS: Clear to auscultation. Normal chest wall mechanics HEART: no murmurs, S1 normal and S2 normal ABDOMEN: abdomen soft, TTP periumbilically, normo-active bowel sounds, no masses, no rebound or guarding. UPPER EXTREMITIES: upper extremities are grossly normal. LOWER EXTREMITIES: No pitting edema. Calves are equal bilaterally NEURO EXAM: Normal sensorium, cranial nerves II-XII grossly intact, normal speech, no gross weakness of arms, no gross weakness of legs. MEDICAL DECISION MAKING: Patient is a 53-year-old male who is a vasculopath with a history of pancreatitis that presents the ER for supraumbilical abdominal pain associated with chest pain. IV was established blood work is obtained. He is brought in by EMS. Labs show mild leukocytosis 11.8. No significant anemia. BMP with mild hypokalemia. LFTs bilirubin was unremarkable. Troponin was negative. Lipase was elevated at nearly thousand. CT abdomen pelvis consistent with pancreatitis. Patient was given IV morphine x 2 following nitroglycerin which did not work. He was given Zofran. He became pain-free. Based on his symptoms and elevated lipase and CT findings I do favor this most consistent with pancreatitis. He does believe that this is likely pancreatitis causing his chest pain. Patient was discussed with the hospitalist for further evaluation management treatment. Consults/Care Managements Discussions: Per [facility] Triage Nursing notes reviewed. Limited review of prior medical records performed Vital Signs: reviewed and remarkable for no significant abnormalities Differential diagnosis: Cardiac ischemia, aortic dissection, pulmonary embolism, pneumothorax, pneumonia, pericarditis, myocarditis, esophageal rupture, GERD, cholecystitis, pancreatitis, musculoskeletal, as well as other pathologies. ER treatment provided: See below Diagnostics interpreted by me include EKG and cardiac monitoring as listed below: -Cardiac Monitoring: An order was placed for continuous cardiac monitoring. The monitor shows a rate of 68 with sinus rhythm. -ECG: Sinus rhythm rate of 64 Left axis Right bundle branch block PVCs ST depressions are improved in comparison to old EKG in the inferior leads Sinus rhythm rate of 58 Right bundle branch block QTc 369 No significant change from previous -Laboratory studies:Interpreted by me as stated above in [facility] and shown below. Imaging studies: Xrays: As interpreted by me: Portable AP upright 1 view of the chest shows no focal infiltrate CTs show: none Procedures:none Critical Care: None Past Med/Surg History Medical History Acute pancreatitis Barretts esophagus CAD (coronary artery disease) 2017-RCA stent x 2 07/2020-STEMI, s/p PCI to left circumflex with 2 MELLY. Post procedure complicated by V. fib arrest requiring defibrillation. 12/2020-NSTEMI s/p 3 Xience MELLY to the distal aspect of prior stent of the left posterior lateral branch vessel COVID-29 Oct 2021 Depression RADHA (generalized anxiety disorder) GERD (gastroesophageal reflux disease) Grade II diastolic dysfunction HLD (hyperlipidemia) Mobitz type 2 second degree atrioventricular block Recurrent pancreatitis Splenic infarct ST elevation myocardial infarction (STEMI) Tobacco abuse Surgical History History of endoscopic retrograde cholangiopancreatography x2 (08/31, 09/30) History of vasectomy Hx laparoscopic cholecystectomy (08/22/21) Laparoscopic Cholecystectomy Dr. Davidson 08/22/2021 Family History Mother Gallbladder disease Sister Gallbladder disease Other Diabetes Stroke Denies family history of Pancreatic disease Social History Smoking Status: Current every day smoker Tobacco Type: Cigarettes Cigarettes Per Day: 3; Second Hand Exposure: No; Do You Dip or Chew Tobacco: No; Hx Alcohol Use: No Hx Substance Use: No Preferred Language: Hong Konger Communication Ability: Effective Stove Refinisher Required: No Beliefs That Will Affect Care: None marital status: Single Current Living Situation: Alone current occupational status: employed Feels Safe at Home: Yes Assistive Devices: None Allergies Allergies Allergy/AdvReac Type Severity Reaction Status Date / Time isosorbide [From Imdur] AdvReac Severe severe Verified 10/21/23 23:57 migraine Home Meds Home Medications Medication Instructions Recorded Confirmed nitroglycerin 0.4 mg sublingual 0.4 mg sublingual .EVERY 5 MINUTES 10/07/18 10/22/23 tablet (Nitrostat) PRN Chest Pain dicyclomine 10 mg capsule 10 mg PO BID PRN Abdominal Pain 12/06/20 10/22/23 ezetimibe 10 mg tablet 10 mg PO QAM 12/06/20 10/22/23 famotidine 40 mg tablet 40 mg PO HS 12/06/20 10/22/23 magnesium oxide 400 mg PO QAM 12/06/20 10/22/23 pantoprazole 40 mg tablet,delayed 40 mg PO QAM 08/20/21 10/22/23 release rosuvastatin 40 mg tablet 40 mg PO QAM 06/07/23 10/21/23 albuterol sulfate 2.5 mg/3 mL 2.5 mg inhalation Q4H PRN 07/09/23 10/22/23 (0.083 %) solution for nebulization Shortness Of Breath Or Wheezing metoprolol succinate 25 mg 25 mg PO AMHS 07/27/23 10/22/23 tablet,extended release 24 hr ticagrelor 90 mg tablet (Brilinta) 90 mg PO AMHS 07/27/23 10/22/23 sertraline 100 mg tablet 100 mg PO QAM 10/21/23 10/21/23 Previous Rx's Medication Instructions Recorded aspirin 81 mg tablet,delayed 81 mg PO QAM #30 tabs 05/24/23 release spironolactone 25 mg tablet 12.5 mg (1/2 x 25 mg) PO QAM #15 06/08/23 tabs Results & Data (ED) Vital Signs Vital Signs - 24 hr 10/21/23 21:10 10/21/23 21:12 10/21/23 21:13 Temperature 36.6 C Temperature Source Oral Pulse Rate 62 60 Pulse Rate from SpO2 Sensor Respiratory Rate 18 Respiratory Effort / Characteristics Non-Labored Spontaneous Respiratory Depth Normal Respiratory Pattern Regular Blood Pressure 120/78 Blood Pressure Mean 92 Blood Pressure Position Semi-fowlers Pulse Oximetry 98 97 Oxygen Delivery Method Room Air Room Air Sepsis Recent Fever Within 48 Hours No Sepsis New/Unexplained Change in Mental Status N/A Sepsis Action Taken by Nursing No Action Required 10/21/23 21:13 10/21/23 21:30 10/21/23 21:31 Temperature Temperature Source Pulse Rate 62 70 64 Pulse Rate from SpO2 Sensor 60 71 62 Respiratory Rate 22 24 20 Respiratory Effort / Characteristics Respiratory Depth Respiratory Pattern Blood Pressure 118/78 Blood Pressure Mean 91 Blood Pressure Position Pulse Oximetry 97 96 97 Oxygen Delivery Method Sepsis Recent Fever Within 48 Hours Sepsis New/Unexplained Change in Mental Status Sepsis Action Taken by Nursing 10/21/23 22:00 Temperature Temperature Source Pulse Rate 75 Pulse Rate from SpO2 Sensor Respiratory Rate 24 Respiratory Effort / Characteristics Respiratory Depth Respiratory Pattern Blood Pressure 117/77 Blood Pressure Mean 90 Blood Pressure Position Pulse Oximetry 96 Oxygen Delivery Method Room Air Sepsis Recent Fever Within 48 Hours Sepsis New/Unexplained Change in Mental Status Sepsis Action Taken by Nursing Laboratory Data 10/21/23 21:17 10/21/23 21:17 Lab Results 10/21/23 Range/Units 21:17 WBC 11.84 H (4.8-10.8) K/ul RBC 4.19 L (4.70-6.10) M/uL Hgb 13.9 L (14.0-18.0) g/dl Hct 39.8 L (42.0-52.0) % MCV 95.0 (80.0-100.0) fL MCH 33.2 (25.0-34.0) pg MCHC 34.9 (32.0-36.0) g/dL RDW Std Deviation 43.1 (36.4-46.3) fL RDW Coeff of Mckinley 12.4 (11.5-14.5) % Plt Count 191 (130-400) K/uL MPV 9.4 (9.4-12.4) fL Immature Gran % (Auto) 0.5 % Neut % (Auto) 74.1 % Lymph % (Auto) 18.4 % Crockett % (Auto) 4.4 % Eos % (Auto) 1.9 % Baso % (Auto) 0.7 % Neut # (Auto) 8.78 H (1.40-6.50) K/uL Lymph # (Auto) 2.18 (1.20-3.40) K/uL Crockett # (Auto) 0.52 (0.11-0.59) K/uL Eos # (Auto) 0.22 (0.00-0.50) K/uL Baso # (Auto) 0.08 (0.00-0.20) K/uL Immature Gran # (Auto) 0.06 (0.01-0.20) K/uL Sodium 136 (136-145) mmol/L Potassium 3.2 L (3.5-5.1) mmol/L Chloride 104 (98-107) mmol/L Carbon Dioxide 25 (21-32) mmol/L Anion Gap 7 (3-11) BUN 13 (6-23) mg/dl Creatinine 1.12 (0.6-1.4) mg/dl Est Cr Clr Drug Dosing 67.0 ml/min Est GFR ( Amer) 85.9 ml/min Est GFR (Non-Af Amer) 74.1 ml/min BUN/Creatinine Ratio 11.6 (10-20) Glucose 180 H (70-99(Fasting)) mg/dl Calcium 8.9 (8.6-10.3) mg/dl Magnesium 1.9 (1.7-2.4) mg/dl Total Bilirubin 0.3 (0.2-1.0) mg/dl AST 20 (13-39) U/L ALT 25 (7-52) U/L Alkaline Phosphatase 70 (34-104) U/L Troponin I High Sens 13.8 (0-20) pg/ml Total Protein 6.5 (6.0-8.3) gm/dl Albumin 4.0 (3.4-5.0) gm/dl Globulin 2.5 (2.5-4.0) gm/dl Albumin/Globulin Ratio 1.6 (0.9-2) Lipase 953 H (11-82) U/L Administered Medications Nitroglycerin (Nitroglycerin 2% Ointment 30gm Tube) 2 inch EXT Q6H ALYCIA Stop: 11/20/23 21:29 Last Admin: 10/21/23 21:31 Dose: 2 inch Documented By: TIN Discontinued Medications Ioversol (Optiray 320 500ml) 83 ml IV ONCE ONE Stop: 10/21/23 22:34 Last Admin: 10/21/23 22:33 Dose: 83 ml Documented By: YURI Morphine Sulfate (Morphine Sulfate 10 Mg/Ml Carp/Vial) 6 mg IV NOW STA Stop: 10/21/23 22:18 Last Admin: 10/21/23 22:49 Dose: Not Given Documented By: GETACHEW Morphine Sulfate (Morphine Sulfate 4 Mg/Ml 1 Ml Carp\Vial) Confirm Administered Dose 4 mg .ROUTE .STK-MED ONE Stop: 10/21/23 22:41 Last Admin: 10/21/23 22:49 Dose: 4 mg Documented By: GETACHEW Morphine Sulfate (Morphine Sulfate 2 Mg/Ml Carp) Confirm Administered Dose 2 mg .ROUTE .STK-MED ONE Stop: 10/21/23 22:42 Last Admin: 10/21/23 22:49 Dose: 2 mg Documented By: GETACHEW Ondansetron HCl (Ondansetron Inj 2 Mg/Ml 2 Ml Vial) 4 mg IV NOW STA Stop: 10/21/23 22:00 Last Admin: 10/21/23 22:06 Dose: 4 mg Documented By: TIN Potassium Chloride (Potassium Chloride Crtab 20 Meq Tabcr) 40 meq PO NOW STA Stop: 10/21/23 22:55 Last Admin: 10/21/23 23:30 Dose: 40 meq Documented By: GETACHEW Imaging Data Radiologist's Impression: Chest X-Ray 10/21/23 21:11 SINGLE VIEW CHEST CLINICAL HISTORY: Atypical chest pain. FINDINGS: An AP, portable, upright chest radiograph is compared to study dated 07/26/2023. The heart is enlarged. The pulmonary vasculature is noncongested. Chronic interstitial thickening is similar to previous. The lungs and pleural spaces are clear. No pneumothorax is seen. The skeletal structures are osteopenic. The bony thorax is grossly intact. Cholecystectomy clips are noted in the right upper quadrant. IMPRESSION: Cardiomegaly with no active disease in the chest. ACT 112: Negative or not required by law. Electronically signed by: Angel Martinez M.D. 10/21/2023 10:08 PM Abdomen/Pelvis CT 10/21/23 22:19 Exam(s): CT ABDOMEN + PELVIS With Contrast IV Amt: 83 ml optiray 320 EXAM: CT Abdomen and Pelvis With Intravenous Contrast CLINICAL HISTORY: Reason for exam: elevated lipase. TECHNIQUE: Axial computed tomography images of the abdomen and pelvis with intravenous contrast. CTDI is 9.46 mGy and DLP is 478.61 mGy-cm. Automated exposure control was utilized for the study. A dose lowering technique was utilized adhering to the principles of ALARA. CONTRAST: Patient received 83 ml optiray 320 of IV contrast COMPARISON: July 12, 2023 FINDINGS: Lung bases: Unremarkable. No mass. No consolidation. ABDOMEN: Liver: Unremarkable. No mass. Gallbladder and bile ducts: The gallbladder has been removed. There is pneumobilia. No biliary duct dilation is seen. Pancreas: There is a trace amount of edema in the fat adjacent to the pancreatic head and duodenum. Consider mild pancreatitis or duodenitis. No pseudocyst is identified. No ductal dilation. Spleen: Unremarkable. No splenomegaly. Adrenals: Unremarkable. No mass. Kidneys and ureters: There is a 1.2 cm simple cyst in the right kidney. No follow-up is required. No hydronephrosis. Stomach and bowel: See above. PELVIS: Appendix: The appendix is normal. Bowel loops are nondilated. No other acute inflammatory changes are seen involving the bowel. Bladder: Unremarkable. No mass. Reproductive: Unremarkable as visualized. ABDOMEN and PELVIS: Intraperitoneal space: Unremarkable. No free air. No significant fluid collection. Bones/joints: Mild degenerative changes in the spine. No acute fracture or subluxation is seen. Soft tissues: Unremarkable. Vasculature: The abdominal aorta is mildly calcified but nondilated. There is no aneurysm or dissection. Lymph nodes: Unremarkable. No enlarged lymph nodes. IMPRESSION: 1. There is a trace amount of edema in the fat adjacent to the pancreatic head and duodenum. Consider mild pancreatitis or duodenitis. No pseudocyst is identified. 2. The appendix is normal. Bowel loops are nondilated. No other acute inflammatory changes are seen involving the bowel. 3. The gallbladder has been removed. There is pneumobilia. No biliary duct dilation is seen. Electronically signed by: Catarino Steve MD 10/21/23 23:19 PM Discharge Plan Visit Data Chief Complaint: Chest Pain Stated Complaint: Chest Pain, SOB ED Provider: Florentino Smith Discharge Problem: Acute pancreatitis, Chest pain Forms Stand Alone Forms: [facility] [place] Gift Card Combo Prescriptions Prescriptions: No Action nitroglycerin [Nitrostat] 0.4 mg tablet, sublingual 0.4 mg Sublingual .EVERY 5 MINUTES MDD 3 doses PRN (Reason: Chest Pain) Rx Instructions: if no relief after 3rd dose call 911 famotidine 40 mg tablet 40 mg PO HS dicyclomine 10 mg capsule 10 mg PO BID PRN (Reason: Abdominal Pain) ezetimibe 10 mg tablet 10 mg PO QAM magnesium oxide 400 mg magnesium Tablet 400 mg PO QAM pantoprazole 40 mg tablet,delayed release (DR/EC) 40 mg PO QAM aspirin 81 mg tablet,delayed release (DR/EC) 81 mg PO QAM Qty: 30 0RF rosuvastatin 40 mg tablet 40 mg PO QAM spironolactone 25 mg tablet 12.5 mg PO QAM Qty: 15 0RF albuterol sulfate 2.5 mg /3 mL (0.083 %) Solution For Nebulization 2.5 mg INHALATION Q4H PRN (Reason: Shortness Of Breath Or Wheezing) metoprolol succinate 25 mg tablet extended release 24 hr 25 mg PO AMHS Brilinta 90 mg tablet 90 mg PO AMHS sertraline 100 mg tablet 100 mg PO QAM Referrals Referrals: Wade Bragg MD [Primary Care Provider] - Discharge Problem: Acute pancreatitis Qualifiers: Pancreatitis type: unspecified pancreatitis type Acute pancreatitis complication: unspecified Qualified Code(s): K85.90 - Acute pancreatitis without necrosis or infection, unspecified Chest pain Qualifiers: Chest pain type: unspecified Qualified Code(s): R07.9 - Chest pain, unspecified
[2023-10-21] MEDS: NITROGLYCERIN 2% OINTMENT 30GM TUBE EXT SCH (21:31)
[2023-10-21 21:55] LABS: Basophils # (auto) 0.08 K/uL (0.00-0.20); Basophils % (auto) 0.7 %; Eosinophils # (auto) 0.22 K/uL (0.00-0.50); Eosinophils % (auto) 1.9 %; Hematocrit (blood only) 39.8 % (42.0-52.0); Hemoglobin 13.9 g/dl (14.0-18.0); Immature Granulocytes # (auto) 0.06 K/uL (0.01-0.20); Immature Granulocytes % (auto) 0.5 %; Lymphocytes # (auto) 2.18 K/uL (1.20-3.40); Lymphocytes % (auto) 18.4 %; Mean Corpuscular Hemoglobin 33.2 pg (25.0-34.0); Mean Corpuscular Hgb Conc 34.9 g/dL (32.0-36.0); Mean Platelet Volume 9.4 fL (9.4-12.4); Monocytes # (auto) 0.52 K/uL (0.11-0.59); Monocytes % (auto) 4.4 %; Neutrophils # (auto) 8.78 K/uL (1.40-6.50); Neutrophils % (auto) 74.1 %; Platelet Count 191 K/uL (130-400); RDW Coefficient of Variation 12.4 % (11.5-14.5); RDW Standard Deviation 43.1 fL (36.4-46.3); Red Blood Count 4.19 M/uL (4.70-6.10); White Blood Count 11.84 K/ul (4.8-10.8)
[2023-10-21] MEDS ORDERED: ONDANSETRON INJ 2 MG/ML 2 ML VIAL IV STA (21:59)
[2023-10-21 22:01] LABS: BUN Creatinine Ratio 11.6 (10-20); Calcium 8.9 mg/dl (8.6-10.3); Est GFR (African American) 85.9 ml/min; Est GFR (Non-African American) 74.1 ml/min; Potassium 3.2 mmol/L (3.5-5.1)
[2023-10-21 22:07] LABS: Troponin I High Sensitivity 13.8 pg/ml (0-20)
--- NOTE | 2023-10-21 22:09 | XRay Report ---
SINGLE VIEW CHEST CLINICAL HISTORY: Atypical chest pain. FINDINGS: An AP, portable, upright chest radiograph is compared to study dated 07/26/2023. The heart is enlarged. The pulmonary vasculature is noncongested. Chronic interstitial thickening is similar to previous. The lungs and pleural spaces are clear. No pneumothorax is seen. The skeletal structures a re osteopenic. The bony thorax is grossly intact. Cholecystectomy clips are noted in the right upper quadrant. IMPRESSION: Cardiomegaly with no active disease in the chest. ACT 112: Negative or not required by law. Electronically signed by: Angel Martinez M.D. 10/21/2023 10:08 PM
[2023-10-21] MEDS ORDERED: MoRPHine SULFATE 10 MG/ML CARP/VIAL IV STA (22:17)
[2023-10-21 22:18] LABS: Albumin Globulin Ratio 1.6 (0.9-2); Bilirubin,Total 0.3 mg/dl (0.2-1.0); Globulin 2.5 gm/dl (2.5-4.0); Total Protein 6.5 gm/dl (6.0-8.3)
[2023-10-21] MEDS ORDERED: OPTIRAY 320 500ml IV ONE (22:33)
[2023-10-21] MEDS ORDERED: MoRPHine SULFATE 4 MG/ML 1 ML CARP\\VIAL ONE (22:40)
[2023-10-21] MEDS ORDERED: MoRPHine SULFATE 2 MG/ML CARP ONE (22:41)
[2023-10-21] MEDS ORDERED: POTASSIUM CHLORIDE CRTAB 20 MEQ TABCR PO STA (22:54)
[2023-10-21 23:14] LABS: Magnesium 1.9 mg/dl (1.7-2.4)
--- NOTE | 2023-10-21 23:19 | CT Scan Report ---
Exam(s): CT ABDOMEN + PELVIS With Contrast IV Amt: 83 ml optiray 320 EXAM: CT Abdomen and Pelvis With Intravenous Contrast CLINICAL HISTORY: Reason for exam: elevated lipase. TECHNIQUE: Axial computed tomography images of the abdomen and pelvis with intravenous contrast. CTDI is 9.46 mGy and DLP is 478.61 mGy-cm. Automated exposure control was utilized for the study. A dose lowering technique was utilized adhering to the principles of ALARA. CONTRAST: Patient received 83 ml optiray 320 of IV contrast COMPARISON: July 12, 2023 FINDINGS: Lung bases: Unremarkable. No mass. No consolidation. ABDOMEN: Liver: Unremarkable. No mass. Gallbladder and bile ducts: The gallbladder has been removed. There is pneumobilia. No biliary duct dilation is seen. Pancreas: There is a trace amount of edema in the fat adjacent to the pancreatic head and duodenum. Consider mild pancreatitis or duodenitis. No pseudocyst is identified. No ductal dilation. Spleen: Unremarkable. No splenomegaly. Adrenals: Unremarkable. No mass. Kidneys and ureters: There is a 1.2 cm simple cyst in the right kidney. No follow-up is required. No hydronephrosis. Stomach and bowel: See above. PELVIS: Appendix: The appendix is normal. Bowel loops are nondilated. No other acute inflammatory changes are seen involving the bowel. Bladder: Unremarkable. No mass. Reproductive: Unremarkable as visualized. ABDOMEN and PELVIS: Intraperitoneal space: Unremarkable. No free air. No significant fluid collection. Bones/joints: Mild degenerative changes in the spine. No acute fracture or subluxation is seen. Soft tissues: Unremarkable. Vasculature: The abdominal aorta is mildly calcified but nondilated. There is no aneurysm or dissection. Lymph nodes: Unremarkable. No enlarged lymph nodes. IMPRESSION: 1. There is a trace amount of edema in the fat adjacent to the pancreatic head and duodenum. Consider mild pancreatitis or duodenitis. No pseudocyst is identified. 2. The appendix is normal. Bowel loops are nondilated. No other acute inflammatory changes are seen involving the bowel. 3. The gallbladder has been removed. There is pneumobilia. No biliary duct dilation is seen. Electronically signed by: Catarino Steve MD 10/21/23 23:19 PM
[2023-10-22] MEDS ORDERED: MoRPHine SULFATE 10 MG/ML CARP/VIAL IV STA (00:12)
[2023-10-22] MEDS ORDERED: LACTATED RINGER'S 1,000 ML IV STA (00:53)
--- NOTE | 2023-10-22 02:20 | History & Physical Report ---
Date of Service October 22, 2023 Assessment & Plan (1) Chest pain: Plan: hx premature CAD sp stent recurrent pancreatitis chronic systolic heart failure (EF 35 to 40%, TTE 2022), patient euvolemic to dry PAF, patient NSR HTN, BP stable hyperlipidemia, on statin Rx Casanova's esophagus, stable on regimen Hyperglycemia rule out DM ongoing tobacco abuse. PCU Antiplatelet, beta-shay, statin Rx for secondary CAD prevention Follow troponin Cardiology consult Re: Chest pain, history of CAD Decision for ischemic workup as per cardiology Bowel rest, analgesia for pancreatitis Judicious IV hydration given history systolic dysfunction GI consult Re: Recurrent pancreatitis Check hemoglobin A1c Nicotine patch as needed DVT prophylaxis. Lovenox subcu Full code Text document was generated using [employer] voice recognition software. It may contain grammatical or spelling errors. Kindly contact undersigned for clarification of any documentation item in question. . History of Present Illness Chief Complaint: Chest pain, abdominal pain Primary Care Provider: Wade Bragg MD History obtained from patient and records. Medical history significant for chronic systolic heart failure (EF 35 to 40%, TTE 2022), premature CAD sp stent, PAF as per records, history NSVT, HTN, hyperlipidemia, recurrent pancreatitis status post cholecystectomy/ ERCP, Casanova's esophagus, anxiety/mood disorder, ongoing tobacco abuse. Last confinement July 2023 for chest pain. Patient was at home last night when he experienced achy chest pain similar to previous episodes in the past. Minimal response to home nitro, Patient compliant with home medications. Patient later noted epigastric discomfort reminiscent of pancreatitis episodes. Denies recent fatty food or alcohol intake. Patient consulted ER for evaluation. Patient currently comfortable after morphine and Nitropaste administration at the ER. MEDICAL HISTORY: As above. OPERATIONS: vasectomy, cholecystectomy FAMILY HISTORY:Hypertension, stroke; no pancreatitis PERSONAL AND SOCIAL HISTORY: One-half pack daily. No chronic intake of alcoholic beverages. 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 Allergies Allergy/AdvReac Type Severity Reaction Status Date / Time isosorbide [From Imdur] AdvReac Severe severe Verified 10/21/23 23:57 migraine Home Medications Medication Instructions Recorded Confirmed Type nitroglycerin 0.4 mg sublingual 0.4 mg sublingual .EVERY 5 MINUTES 10/07/18 10/22/23 History tablet (Nitrostat) PRN Chest Pain dicyclomine 10 mg capsule 10 mg PO BID PRN Abdominal Pain 12/06/20 10/22/23 History ezetimibe 10 mg tablet 10 mg PO QAM 12/06/20 10/22/23 History famotidine 40 mg tablet 40 mg PO HS 12/06/20 10/22/23 History magnesium oxide 400 mg PO QAM 12/06/20 10/22/23 History pantoprazole 40 mg tablet,delayed 40 mg PO QAM 08/20/21 10/22/23 History release aspirin 81 mg tablet,delayed 81 mg PO QAM #30 tabs 05/24/23 10/21/23 Rx release rosuvastatin 40 mg tablet 40 mg PO QAM 06/07/23 10/21/23 History spironolactone 25 mg tablet 12.5 mg (1/2 x 25 mg) PO QAM #15 06/08/23 10/22/23 Rx tabs albuterol sulfate 2.5 mg/3 mL 2.5 mg inhalation Q4H PRN 07/09/23 10/22/23 History (0.083 %) solution for nebulization Shortness Of Breath Or Wheezing metoprolol succinate 25 mg 25 mg PO AMHS 07/27/23 10/22/23 History tablet,extended release 24 hr ticagrelor 90 mg tablet (Brilinta) 90 mg PO AMHS 07/27/23 10/22/23 History sertraline 100 mg tablet 100 mg PO QAM 10/21/23 10/21/23 History Past Med/Surg History Medical History ST elevation myocardial infarction (STEMI) Recurrent pancreatitis COVID-29 Oct 2021 Acute pancreatitis Grade II diastolic dysfunction Barretts esophagus Mobitz type 2 second degree atrioventricular block Tobacco abuse Splenic infarct HLD (hyperlipidemia) RADHA (generalized anxiety disorder) CAD (coronary artery disease) 2018-RCA stent x 2 07/2020-STEMI, s/p PCI to left circumflex with 2 MELLY. Post procedure complicated by V. fib arrest requiring defibrillation. 12/2020-NSTEMI s/p 3 Xience MELLY to the distal aspect of prior stent of the left posterior lateral branch vessel Depression GERD (gastroesophageal reflux disease) Surgical History History of endoscopic retrograde cholangiopancreatography x2 (08/31, 09/30) Hx laparoscopic cholecystectomy (08/22/21) Laparoscopic Cholecystectomy Dr. Davidson 08/22/2021 History of vasectomy Family History Mother Gallbladder disease Sister Gallbladder disease Other Diabetes Stroke Denies family history of Pancreatic disease Social History Smoking Status: Current every day smoker Tobacco Type: Cigarettes Cigarettes Per Day: 3; Second Hand Exposure: No; Do You Dip or Chew Tobacco: No; Tobacco Cessation Education Requested by Patient: No Hx Alcohol Use: No Hx Substance Use: No Preferred Language: Vietnamese Communication Ability: Effective Corporate Administrative Assistant Required: No Beliefs That Will Affect Care: None marital status: Single Current Living Situation: Alone current occupational status: employed Feels Safe at Home: Yes Safety Concerns: Feels Safe At This Time Assistive Devices: None Review of Systems Review of Systems: As per HPI, all other systems reviewed and negative Physical Exam Physical Exam: GENERAL: comfortable, pleasant, no respiratory distress SKIN: Normal color, warm HEENT: Alopecia, bespectacled, pink palpebral conjunctivae, no ptosis, dry buccal mucosa NECK : Supple, no tenderness CHEST : CTA, no tenderness HEART : RRR, no obvious murmurs ABDOMEN: some distention, central abdominal tenderness EXTREMITIES : No LE swelling/tenderness, no other conspicuous deformities noted NEUROLOGIC : Coherent, no facial asymmetry, no other gross focality Results & Data Results & Data Vital Signs (Past 12 Hours) Vital Signs Temp Pulse Resp BP Pulse Ox O2 Del Method 10/22/23 00:30 67 24 117/75 94 10/22/23 00:00 61 21 124/83 93 10/21/23 23:00 65 23 121/84 95 10/21/23 22:00 75 24 117/77 96 Room Air 10/21/23 21:31 64 20 118/78 97 10/21/23 21:30 70 24 96 10/21/23 21:13 62 22 97 10/21/23 21:13 60 10/21/23 21:12 97 Room Air 10/21/23 21:10 36.6 C 62 18 120/78 98 Room Air Laboratory Results Laboratory Results WBC 11.84 K/ul (4.8-10.8) H 10/21/23 21:17 RBC 4.19 M/uL (4.70-6.10) L 10/21/23 21:17 Hgb 13.9 g/dl (14.0-18.0) L 10/21/23 21:17 Hct 39.8 % (42.0-52.0) L 10/21/23 21:17 MCV 95.0 fL (80.0-100.0) 10/21/23 21:17 MCH 33.2 pg (25.0-34.0) 10/21/23 21:17 MCHC 34.9 g/dL (32.0-36.0) 10/21/23 21:17 RDW Std Deviation 43.1 fL (36.4-46.3) 10/21/23 21:17 RDW Coeff of Mckinley 12.4 % (11.5-14.5) 10/21/23 21:17 Plt Count 191 K/uL (130-400) 10/21/23 21:17 MPV 9.4 fL (9.4-12.4) 10/21/23 21:17 Immature Gran % (Auto) 0.5 % 10/21/23 21:17 Neut % (Auto) 74.1 % 10/21/23 21:17 Lymph % (Auto) 18.4 % 10/21/23 21:17 [place] % (Auto) 4.4 % 10/21/23 21:17 Eos % (Auto) 1.9 % 10/21/23 21:17 Baso % (Auto) 0.7 % 10/21/23 21:17 Neut # (Auto) 8.78 K/uL (1.40-6.50) H 10/21/23 21:17 Lymph # (Auto) 2.18 K/uL (1.20-3.40) 10/21/23 21:17 [place] # (Auto) 0.52 K/uL (0.11-0.59) 10/21/23 21:17 Eos # (Auto) 0.22 K/uL (0.00-0.50) 10/21/23 21:17 Baso # (Auto) 0.08 K/uL (0.00-0.20) 10/21/23 21:17 Immature Gran # (Auto) 0.06 K/uL (0.01-0.20) 10/21/23 21:17 Sodium 136 mmol/L (136-145) 10/21/23 21:17 Potassium 3.2 mmol/L (3.5-5.1) L 10/21/23 21:17 Chloride 104 mmol/L (98-107) 10/21/23 21:17 Carbon Dioxide 25 mmol/L (21-32) 10/21/23 21:17 Anion Gap 7 (3-11) 10/21/23 21:17 BUN 13 mg/dl (6-23) 10/21/23 21:17 Creatinine 1.12 mg/dl (0.6-1.4) 10/21/23 21:17 Est Cr Clr Drug Dosing 67.0 ml/min 10/21/23 21:17 Est GFR ( Amer) 85.9 ml/min 10/21/23 21:17 Est GFR (Non-Af Amer) 74.1 ml/min 10/21/23 21:17 BUN/Creatinine Ratio 11.6 (10-20) 10/21/23 21:17 Glucose 180 mg/dl (70-99(Fasting)) H 10/21/23 21:17 Calcium 8.9 mg/dl (8.6-10.3) 10/21/23 21:17 Magnesium 1.9 mg/dl (1.7-2.4) 10/21/23 21:17 Total Bilirubin 0.3 mg/dl (0.2-1.0) 10/21/23 21:17 AST 20 U/L (13-39) 10/21/23 21:17 ALT 25 U/L (7-52) 10/21/23 21:17 Alkaline Phosphatase 70 U/L (34-104) 10/21/23 21:17 Troponin I High Sens 13.8 pg/ml (0-20) 10/21/23 21:17 Total Protein 6.5 gm/dl (6.0-8.3) 10/21/23 21:17 Albumin 4.0 gm/dl (3.4-5.0) 10/21/23 21:17 Globulin 2.5 gm/dl (2.5-4.0) 10/21/23 21:17 Albumin/Globulin Ratio 1.6 (0.9-2) 10/21/23 21:17 Lipase 953 U/L (11-82) H 10/21/23 21:17 Impressions Chest X-Ray 10/21/23 21:11 SINGLE VIEW CHEST CLINICAL HISTORY: Atypical chest pain. FINDINGS: An AP, portable, upright chest radiograph is compared to study dated 07/26/2023. The heart is enlarged. The pulmonary vasculature is noncongested. Chronic interstitial thickening is similar to previous. The lungs and pleural spaces are clear. No pneumothorax is seen. The skeletal structures are osteopenic. The bony thorax is grossly intact. Cholecystectomy clips are noted in the right upper quadrant. IMPRESSION: Cardiomegaly with no active disease in the chest. ACT 112: Negative or not required by law. Electronically signed by: Angel Martinez M.D. 10/21/2023 10:08 PM Abdomen/Pelvis CT 10/21/23 22:19 Exam(s): CT ABDOMEN + PELVIS With Contrast IV Amt: 83 ml optiray 320 EXAM: CT Abdomen and Pelvis With Intravenous Contrast CLINICAL HISTORY: Reason for exam: elevated lipase. TECHNIQUE: Axial computed tomography images of the abdomen and pelvis with intravenous contrast. CTDI is 9.46 mGy and DLP is 478.61 mGy-cm. Automated exposure control was utilized for the study. A dose lowering technique was utilized adhering to the principles of ALARA. CONTRAST: Patient received 83 ml optiray 320 of IV contrast COMPARISON: July 12, 2023 FINDINGS: Lung bases: Unremarkable. No mass. No consolidation. ABDOMEN: Liver: Unremarkable. No mass. Gallbladder and bile ducts: The gallbladder has been removed. There is pneumobilia. No biliary duct dilation is seen. Pancreas: There is a trace amount of edema in the fat adjacent to the pancreatic head and duodenum. Consider mild pancreatitis or duodenitis. No pseudocyst is identified. No ductal dilation. Spleen: Unremarkable. No splenomegaly. Adrenals: Unremarkable. No mass. Kidneys and ureters: There is a 1.2 cm simple cyst in the right kidney. No follow-up is required. No hydronephrosis. Stomach and bowel: See above. PELVIS: Appendix: The appendix is normal. Bowel loops are nondilated. No other acute inflammatory changes are seen involving the bowel. Bladder: Unremarkable. No mass. Reproductive: Unremarkable as visualized. ABDOMEN and PELVIS: Intraperitoneal space: Unremarkable. No free air. No significant fluid collection. Bones/joints: Mild degenerative changes in the spine. No acute fracture or subluxation is seen. Soft tissues: Unremarkable. Vasculature: The abdominal aorta is mildly calcified but nondilated. There is no aneurysm or dissection. Lymph nodes: Unremarkable. No enlarged lymph nodes. IMPRESSION: 1. There is a trace amount of edema in the fat adjacent to the pancreatic head and duodenum. Consider mild pancreatitis or duodenitis. No pseudocyst is identified. 2. The appendix is normal. Bowel loops are nondilated. No other acute inflammatory changes are seen involving the bowel. 3. The gallbladder has been removed. There is pneumobilia. No biliary duct dilation is seen. Electronically signed by: Catarino Steve MD 10/21/23 23:19 PM Diagnostic Findings EKG as per my interpretation : Rate 55, sinus bradycardia, normal axis, no ischemia (1) Chest pain Chest pain type: unspecified Qualified Code(s): R07.9 - Chest pain, unspecified
[2023-10-22] MEDS ORDERED: MoRPHine SULFATE 2 MG/ML CARP IV PRN (02:24)
[2023-10-22] MEDS ORDERED: LORazepam 0.5 MG TAB PO PRN (02:24)
[2023-10-22] MEDS ORDERED: PROMETHAZINE HCL 6.25 MG in SODIUM CHLORIDE 0.9% 50 ML IV PRN (02:24)
[2023-10-22 03:02] LABS: Albumin Globulin Ratio 1.6 (0.9-2); Albumin Level 4.1 gm/dl (3.4-5.0); BUN Creatinine Ratio 12.9 (10-20); Basophils # (auto) 0.03 K/uL (0.00-0.20); Basophils % (auto) 0.4 %; Bilirubin,Total 0.5 mg/dl (0.2-1.0); Calcium 9.3 mg/dl (8.6-10.3); Chol HDL Ratio 2.5 (0-5); Creatinine Clr Calc Pharmacy 74.3 ml/min; Eosinophils # (auto) 0.05 K/uL (0.00-0.50); Eosinophils % (auto) 0.6 %; Est GFR (African American) 97.3 ml/min; Est GFR (Non-African American) 83.9 ml/min; Globulin 2.6 gm/dl (2.5-4.0); Hematocrit (blood only) 41.5 % (42.0-52.0); Hemoglobin 14.3 g/dl (14.0-18.0); Immature Granulocytes # (auto) 0.02 K/uL (0.01-0.20); Immature Granulocytes % (auto) 0.3 %; Lymphocytes # (auto) 0.92 K/uL (1.20-3.40); Lymphocytes % (auto) 11.6 %; Mean Corpuscular Hemoglobin 32.4 pg (25.0-34.0); Mean Corpuscular Hgb Conc 34.5 g/dL (32.0-36.0); Mean Corpuscular Volume 94.1 fL (80.0-100.0); Mean Platelet Volume 9.3 fL (9.4-12.4); Monocytes # (auto) 0.07 K/uL (0.11-0.59); Monocytes % (auto) 0.9 %; Neutrophils # (auto) 6.87 K/uL (1.40-6.50); Neutrophils % (auto) 86.2 %; Platelet Count 175 K/uL (130-400); Potassium 4.3 mmol/L (3.5-5.1); RDW Coefficient of Variation 12.3 % (11.5-14.5); RDW Standard Deviation 42.8 fL (36.4-46.3); Red Blood Count 4.41 M/uL (4.70-6.10); Total Protein 6.7 gm/dl (6.0-8.3); White Blood Count 7.96 K/ul (4.8-10.8)
[2023-10-22 03:10] LABS: Partial Thromboplastin Time 29 Seconds (21-31)
[2023-10-22] MEDS: NITROGLYCERIN 2% OINTMENT 30GM TUBE EXT SCH ×3 (06:24→18:24)
[2023-10-22 07:07] LABS: Estimated Average Glucose 131 mg/dl; Hemoglobin A1C 6.2 % (4.5-5.6)
--- OUTSIDE RECORDS SUMMARY | 2023-10-22 07:58 | External Medical Summary | Summary of Care ---
Author Name Unknown Organization [facility] Address [address] [facility] [place] [address] Phone [phone] Care Team Providers Care Science Job Titles Name Role Phone Wade Bragg MD Primary Care Provider [phone] Reason for Visit * Reason Onset Date Comments Test Results 07/15/2023 Encounter Details Date Type Department Care Team (Late st Contact Info) Description 07/15/2023 Telephone Cardiology, [facility] [address], [facility] [id number] Carmen Hutton PA-C [address], [employer] [place] [id number] Test Results Allergies Active Allergy Reactions Criticality Noted Date Comments Isosorbide Nitrate 07/30/2023 Severe Mirgrains documented as of this encounter (statuses as of 10/14/2023) Medications Medication Sig Dispensed Refills Start Date End Date Status Brilinta 90 MG Oral TabletIndications: NSTEMI (non-ST elevation myocardial infarction) (HCC) Take 1 Tablet by mouth in the morning and 1 Tablet before bedtime. 180 Tablet 3 3 Active Dicyclomine HCl 10 MG Oral Capsule (Bentyl) take 1 capsule by mouth twice a day if needed for abdominal pain 60 Capsule 5 3 Active Spironolactone 25 MG Oral Tablet (Aldactone) Take 0.5 Tablets by mouth in the morning. 45 Tablet 3 3 Active Sucralfate 1 GM Oral Tablet (Carafate) Take 1 Tablet by mouth 4 times a day before meals and at bedtime. 0 3 Active Aspirin 81 MG Oral Tablet Delayed Release (Aspirin Low Dose) Take by mouth 1 Tablet in the morning. In the morning.. 90 Tablet 3 2 09/06/20 Discontinued(Ref ill) Sertraline HCl 50 MG Oral Tablet (Zoloft)Indication s:Generalized anxiety disorder Take by mouth 1 Tablet in the morning. 90 Tablet 3 2 08/30/20 Discontinued Nitroglycerin 0.4 MG Sublingual Tablet Sublingual (Nitrostat)Indicat ions:Coronary artery disease involving [place] coronary artery of [place] heart without angina pectoris Place under the tongue 1 Tablet every 5 minutes as needed for Pain, Chest. up to 3 doses in 15 minutes 25 Tablet 11 2 08/30/20 Discontinued Famotidine 40 MG Oral Tablet (Pepcid)Indication s: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,Gastroes ophageal reflux disease without esophagitis Take by mouth 1 Tablet before bedtime. 90 Tablet 3 2 08/30/20 Discontinued Ezetimibe 10 MG Oral Tablet (Zetia)Indications :Coronary artery disease involving [place] coronary artery of [place] heart without angina pectoris,Dyslipide fredy, goal LDL below 130,[place] (myocardial infarction) Take by mouth 1 Tablet in the morning. 90 Tablet 3 2 08/30/20 Discontinued Magnesium Oxide 400 MG Oral Tablet Take by mouth 1 Tablet in the morning. 90 Tablet 3 2 08/30/20 Discontinued Pantoprazole Sodium 40 MG Oral Tablet Delayed Release (Protonix) Take by mouth 1 Tablet in the morning. 90 Tablet 3 2 08/30/20 Discontinued Rosuvastatin Calcium 40 MG Oral Tablet (Crestor) Take by mouth 1 Tablet in the morning. 90 Tablet 3 2 09/06/20 Discontinued(Ref ill) Ondansetron 4 MG Oral Tablet Disintegrating (Zofran) Place 1 Tablet (4 mg) on tongue every 8 hours as needed for Nausea. dissolve on tongue. 20 Tablet 1 2 07/30/20 Discontinued Metoprolol Succinate ER 25 MG Oral Tablet Extended Release 24 Hour (toPROL XL) Take 0.5 Tablets by mouth in the morning and 0.5 Tablets before bedtime. 90 Tablet 3 3 07/15/20 23 Discontinued(Ref ill) Isosorbide Mononitrate ER 30 MG Oral Tablet Extended Release 24 Hour (Imdur) Take 1 Tablet by mouth in the morning. 0 3 07/30/20 23 Discontinued oxyCODONE HCl 5 MG Oral Tablet (Oxy IR) Take 1 Tablet by mouth every 6 hours as needed. 0 3 07/30/20 23 Discontinued Metoprolol Succinate ER 25 MG Oral Tablet Extended Release 24 Hour (toPROL XL) Take 0.5 Tablets by mouth daily AND 1 Tablet at bedtime. 135 Tablet 3 3 07/30/20 23 Discontinued(Ref ill) Hospital, Clinic, or Other Facility Administered Medication Ordered Dose Route Frequency Start Date End Date Status albuterol sulfate (PROVENTIL) (2.5 MG/3ML) 0.083% inhalation solution 2.5 mgIndications:SOB (shortness of breath) 2.5 mg NEBULIZER Q4H PRN 03/02/2019 Act rolanda documented as of this encounter (statuses as of 10/14/2023) Active Problems Problem Noted Date Diagnosed Date Ischemic cardiomyopathy 06/22/2023 NSVT (nonsustained ventricular tachycardia) 06/[address] elevation myocardial infarction (S ANT) 06/22/2023 HFrEF (heart failure with reduced ejection fract ion) 06/22/2023 S/P angioplasty with stent 05/28/2023 Gastroesophageal reflux dise ase with esophagitis without hemorrhage 12/16/2020 [place] (myocardial infarction) 06/27/2018 Coronary artery disease of n ative artery of [place] heart with stable angina pectoris 06/27/2018 History of acute pancreatitis 06/27/2018 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 Dyslipidemia, goal LDL below 70 09/18/2013 Generalized anxiety disorder 03/09/2013 Tobacco use disorder 01/03/2013 documented as of this encounter (statuses as of 10/14/2023) Resolved Problems Problem Noted Date Diagnosed Date Resolved Date Acute ST elevation myocardia l infarction (STEMI) 05/28/2023 10/03/2023 Acute pancreatitis 08/13/2022 3 INFORMATION 05/11/2017 03/24/2018 Overview: 10 year cardiovascular risk 18.5% Idiopathic acute pancreatitis 09/16/2015 06/27/2018 Acute gastritis without bleeding 09/16/2015 06/27/2018 INFORMATION 09/10/2015 03/24/2018 Overview: 10 year cardiovascular risk of 21% PPD screening test 08/10/2014 7 INFORMATION 07/11/2014 03/24/2018 Overview: 10 year risk 19% Pancreatitis, acute 09/18/2013 03/24/20 18 Left flank pain 09/18/2013 09/16/2015 Routine medical exam 01/03/2013 018 Gastroesophageal reflux 01/03/2013 03/0 05/2021 Screening for cardiovascular condition 01/03/2013 05/31/2017 Vasectomy status 03/07/2003 09/16/2015 Syncope and collapse 04/26/2002 015 Anxiety state 04/26/2002 09/16/2015 documented as of this encounter (statuses as of 10/14/2023) Immunizations Name Administration Dates Next Due Hepatitis B, 20+ yrs 08/24/2011,04/09/2011,03/05 PPD 08/10/2014 Seasonal Influenza, PF, 6 M & above, IM , (FluLaval or Fluzone) 08/17/2022(Deferred: Patient Refused) TDAP (age 11 and older)(Adacel) 12/21/2012 documented as of this encounter Social History Tobacco Use Types Packs/Day Years Used Date Smoking Tobacco: Every Day Cigarettes 0.3 31 Passive Smoke Exposure: Current Smokeless Tobacco: Never Comments:2-3 cig/day as of Alcohol Use Standard Drinks/Week Comments Not Currently 0 (1 standard drink = 0.6 oz pur e alcohol) last 2015 PHQ-2 Answer Date Recorded PHQ Adult Total Score 0 02/15/2023 Hunger Vital Sign Answer Date Recorded Within the past 12 months, y ou worried that your food would run out before you got the money to buy more. Never true 02/16/20 23 Within the past 12 months, t he food you bought just didn't last and you didn't have money to get more. Never true 02/15/2023 Sex and Gender Information Value Date Recorded Sex Assigned at Male 05/27/2023 12:36 PM EDT Gender Identity Male 05/27/2023 12:36 PM EDT Sexual Orientation Straight 05/27/2023 12 :36 PM EDT Job Start Date Occupation Industry Not on file Not on file Not on file documented as of this encounter Miscellaneous Notes * Telephone Encounter - Trisha Chapa CRNP - 07/16/2023 11:01 AM EDT Let us know if systolic drop below 90 or HR is in the low 50s. OR if patient does not feel well with the increase. * Telephone Encounter - Antoni Lowery LPN - 07/15/2023 4:03 PM EDT Medication pended per patient's MyChart reply. Please see patient's MyChart as well for question. * Telephone Encounter - Antoni Lowery LPN - 07/15/2023 1:23 PM EDT Sent patient a [employer] message to make aware. Awaiting reply to pend medication. ----- Message from HAKAN Richey sent at 07/14/2023 4:30 PM EDT ----- Please let the patient know that I reviewed his monitor. He was in NSR with an avg heart rate in the 70s. 6 VT episodes with the longest lasting 16 beats. PVC burden of 1.9% (occasional). Symptoms correlating with ST and PVCs At his last appt with Carmen Hutton his BP and heart rates were controlled. GDMT is limited due to hypotension. I would like him to try and increase his metoprolol to 12.5 mg in the morning and 25 mg in the evening. Monitor symptoms and blood pressures/HR at home- if he doesn't have means to do so lets bring him in for a BP HR check in 1 month. documented in this encounter Plan of Treatment Scheduled Procedures Name Priority Associated Diagnoses Date/Ti me ESOPHAGOGASTRODUODENOSCOPY ( EGD), FLEXIBLE, TRANSORAL, DIAGNOSTIC Recall 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 COLONOSCOPY FLEXIBLE PROXIMAL DIAGNOSTIC Recall History of colonic polyps Health Maintenance Due Date Last Done Comments DISCUSS TOBACCO CESSATION (REFER TO SMARTSET #3291) 1969 COVID-19 Vaccine (#1) 03/21/1970 Pneumococcal Vaccine: Pediatrics (0 to 5 Years) and At-Risk Patients (6 to 64 Years) (1 - PCV) 1975 Hepatitis C Screening 1987 Zoster Vaccines (1 of 2) 2019 DTaP,Tdap,and Td Vaccines (2 - Td or Tdap) 12/21/2022 12/21/2012 Influenza Vaccine (FLU shot) (#1) 2023 Depression Screening 02/16/2024 02/15/2023, 05/31/20 17 Casanova's Esophagus Surveilance 09/23/2024 09/23/2021, 08/22/2021, 05/06/2020, Additional history exists COLONOSCOPY-EVERY 5 YRS AGES 18-100 05/06/2025 05/06/2020, 05/06/2020 Hepatitis B Completed 08/24/2011, 03/13, 03/05/2011 GARDASIL-HPV IMMUNIZATION SERIES Aged Out No longer eligible based on patient's age to complete this topic MENINGOCOCCAL (MENACTRA/MENVEO) Aged Out No longer eligible based on patient's age to complete this topic documented as of this encounter Medical Devices Not on filedocumented as of this encounter Advance Directives Latest Code Status on File Code Status Date Activated Date Inactivated Comments Full Code 08/14/2022 1:00 AM 08/17/2022 2:38 PM This order reflects the patients wishes and were consensually agreed upon. Question Answer Comments Discussion of Advance Directives occurred with: Patient Care Teams Science Job Titles Relationship Specialty Start Date End Date Wade Bragg MD [address], [place] [id number] PCP - General Family Medicine 03/24/18 documented as of this encounter
--- OUTSIDE RECORDS SUMMARY | 2023-10-22 07:58 | External Medical Summary | Summary of Care ---
Author Name Unknown Organization [facility] Address [address] [facility] [place] [address] Phone [phone] Care Team Providers Care Court Specialist Name Role Phone Wade Bragg MD Primary Care Provider +1- [phone] Reason for Visit * Reason Onset Date Comments Test Results 10/15/2023 Encounter Details Date Type Department Care Team (Late st Contact Info) Description 10/15/2023 Telephone Cardiology, [facility] [address] [place] [address] Carmen Hutton PA-C [address] [place] [address] Test Results Allergies Active Allergy Reactions Criticality Noted Date Comments Isosorbide Nitrate 07/30/2023 Severe Mirgrains documented as of this encounter (statuses as of 10/18/2023) Medications Medication Sig Dispensed Refills Start Date End Date Status Brilinta 90 MG Oral TabletIndications:NS ANT (non-ST elevation myocardial infarction) (HCC) Take 1 Tablet by mouth in the morning and 1 Tablet before bedtime. 180 Tablet 3 03/25/2023 Active Dicyclomine HCl 10 MG Oral Capsule (Bentyl) take 1 capsule by mouth twice a day if needed for abdominal pain 60 Capsule 5 03/30/2023 Active Spironolactone 25 MG Oral Tablet (Aldactone) Take 0.5 Tablets by mouth in the morning. 45 Tablet 3 06/21/2023 Active Sucralfate 1 GM Oral Tablet (Carafate) Take 1 Tablet by mouth 4 times a day before meals and at bedtime. 0 07/12/2023 Active Metoprolol Succinate ER 25 MG Oral Tablet Extended Release 24 Hour (toPROL XL)Indications:Coron clark artery disease involving [place] coronary artery of [place]ena heart without angina pectoris,Ischemic cardiomyopathy,Dysli pidemia, goal LDL below 70,Tobacco use disorder Take 1 Tablet by mouth in the morning and 1 Tablet before bedtime. 180 Tablet 3 07/30/2023 Active Ezetimibe 10 MG Oral Tablet (Zetia)Indications:C oronary artery disease involving [place] coronary artery of [place] heart without angina pectoris,Dyslipidemi a, goal LDL below 130,Old [place] (myocardial infarction) take 1 tablet by mouth every morning 90 Tablet 3 08/30/2023 Active Pantoprazole Sodium 40 MG Oral Tablet Delayed Release (Protonix) take 1 tablet by mouth every morning 90 Tablet 3 08/30/2023 Active Nitroglycerin 0.4 MG Sublingual Tablet Sublingual (Nitrostat)Indicatio ns:Coronary artery disease involving [place] coronary artery of galena heart without angina pectoris place 1 tablet under the tongue if needed every 5 minutes for chest pain for 3 doses IF NO RELIEF AFTER THIRD DOSE CALL 911. 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 90 Tablet 0 09/07/2023 Active Sertraline HCl 100 MG Oral Tablet (Zoloft) Take 1 Tablet by mouth in the morning. 90 Tablet 3 09/14/2023 Active Hospital, Clinic, or Other Facility Administered Medication Ordered Dose Route Frequency Start Date End Date Status albuterol sulfate (PROVENTIL) (2.5 MG/3ML) 0.083% inhalation solution 2.5 mgIndications:SOB (shortness of breath) 2.5 mg NEBULIZER Q4H PRN 03/02/2019 Act [place] documented as of this encounter (statuses as of 10/18/2023) Active Problems Problem Noted Date Diagnosed Date Ischemic cardiomyopathy 06/22/2023 NSVT (nonsustained ventricular tachycardia) 06/[address] elevation myocardial infarction (S ANT) 06/22/2023 HFrEF (heart failure with reduced ejection fract ion) 06/22/2023 S/P angioplasty with stent 05/28/2023 Gastroesophageal reflux dise ase with esophagitis without hemorrhage 12/16/2020 [place] (myocardial infarction) 06/27/2018 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 * Telephone Encounter - Poppy Mendoza CMA - 10/15/2023 8:37 AM EST ----- Message from Carmen Hutton PA-C sent at 10/12/2023 11:36 AM EST ----- Monitor results reviewed. No concerning or sustained arrhythmias. Average HR was 64. Symptoms correlated with NSR. No symptomatic bradycardia. See how patient is feeling? How is dizziness? How is Chest pain? 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
--- OUTSIDE RECORDS SUMMARY | 2023-10-22 07:58 | External Medical Summary | Summary of Care ---
Author Name Unknown Organization [facility] Address [address] [place] [address] Phone [phone] Care Team Providers Care Cell Inspector Name Role Phone Wade Bragg MD Primary Care Provider +1- [phone] Reason for Visit * Reason Comments Status Check Return in 3 months Encounter Details Date Type Department Care Team (Late st Contact Info) Description 09/14/2023 4:00 PM EST Office Visit [facility] [address] [place] [address] Wade Bragg MD [address] [place] [address] Coronary artery disease of [place] artery of [place] heart with stable angina pectoris (HCC)*; Dyslipidemia, goal LDL below 70; HFrEF (heart failure with reduced ejection fraction) ([facility]); Ischemic cardiomyopathy; [place] (myocardial infarction); Gastroesophageal reflux disease with esophagitis without hemorrhage; Generalized anxiety disorder Allergies Active Allergy Reactions Criticality Noted Date Comments Isosorbide Nitrate 07/30/2023 Severe Mirgrains documented as of this encounter (statuses as of 10/03/2023) Medications Medication Sig Dispensed Refills Start Date End Date Status Brilinta 90 MG Oral TabletIndications :NSTEMI (non-ST elevation myocardial infarction) (HCC) Take 1 [...] Oral Tablet Extended Release 24 Hour (toPROL XL)Indications:Co ronary artery disease involving [place] coronary artery of [place] heart without angina pectoris,Ischemic cardiomyopathy,Dy slipidemia, goal LDL below 70,Tobacco use disorder Take 1 Tablet by mouth in the morning and 1 Tablet before bedtime. 180 Tablet 3 07/30/2023 Active Ezetimibe 10 MG Oral Tablet (Zetia)Indication s:Coronary artery disease involving [place] coronary artery of [place] heart without angina pectoris,Dyslipid emia, goal LDL below 130,[place] (myocardial infarction) take 1 tablet by mouth every morning 90 Tablet 3 08/30/2023 Active Pantoprazole Sodium 40 MG Oral Tablet Delayed Release (Protonix) take 1 tablet by mouth every morning 90 Tablet 3 08/30/2023 Active Nitroglycerin 0.4 MG Sublingual Tablet Sublingual (Nitrostat)Indica tions:Coronary artery disease involving [place] coronary artery of [place] heart without angina pectoris place 1 tablet under the tongue if needed every 5 minutes for chest pain for 3 doses IF NO RELIEF AFTER THIRD DOSE CALL 911. 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 90 Tablet 3 09/14/2023 Active Sertraline HCl 50 MG Oral Tablet (Zoloft)Indicatio ns:Generalized anxiety disorder take 1 tablet by mouth every morning 90 Tablet 3 08/30/2023 09/14/2023 Discontinue d(Medicatio n/Dose Changed) Hospital, Clinic, or Other Facility Administered Medication Ordered Dose Route Frequency Start Date End Date Status albuterol sulfate (PROVENTIL) (2.5 MG/3ML) 0.083% inhalation solution 2.5 mgIndications:SOB (shortness of breath) 2.5 mg NEBULIZER Q4H PRN 03/02/2019 Act [place] documented as of this encounter (statuses as of 10/03/2023) Active Problems Problem Noted Date Diagnosed Date Ischemic cardiomyopathy 06/22/2023 NSVT (nonsustained ventricular tachycardia) 06/[address] elevation myocardial infarction (S ANT) 06/22/2023 HFrEF (heart failure with reduced ejection fract ion) 06/22/2023 S/P angioplasty with stent 05/28/2023 Gastroesophageal reflux dise ase with esophagitis without hemorrhage 12/16/2020 [place] (myocardial infarction) 06/27/2018 Coronary artery disease of n ative artery of [place] heart with stable angina pectoris 06/27/2018 History of acute pancreatitis 06/27/2018 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 Dyslipidemia, goal LDL below 70 09/18/2013 Generalized anxiety disorder 03/09/2013 Tobacco use disorder 01/03/2013 documented as of this encounter (statuses as of 10/03/2023) Resolved Problems Problem Noted Date Diagnosed Date [...] as of this encounter (statuses as of 10/03/2023) Immunizations Name Administration Dates Next Due Hepatitis B, 20+ yrs 08/24/2011,04/09/2011,03/05 PPD 08/10/2014 Seasonal Influenza, PF, 6 M & above, IM , (FluLaval or Fluzone) 08/17/2022(Deferred: Patient Refused) TDAP (age 11 and older)(Adacel) 12/21/2012 documented as of this encounter Social History Tobacco Use Types Packs/Day Years Used Date Smoking Tobacco: Every Day Cigarettes 0.3 31 Passive Smoke Exposure: Current Smokeless Tobacco: Never Tobacco Cessation:Ready to Q uit: Not Asked; Counseling Given: Not Answered Comments:2-3 cig/day as of 12/23/20 Alcohol Use Standard Drinks/Week Comments Not Currently [...] on file documented as of this encounter Last Filed Vital Signs Vital Sign Reading Time Taken Comments Blood Pressure 124/78 09/14/2023 4:19 PM EST Pulse 58 09/14/2023 4:19 PM EST Temperature 36.6 C (97.8 F) 09/14/2023 4:19 PM ES T Respiratory Rate 20 09/14/2023 4:19 PM EST Oxygen Saturation 98% 09/14/2023 4:19 PM EST Inhaled Oxygen Concentration - - Weight 60.5 kg (133 lb 6.4 oz) 09/14/2023 4:19 P M EST Height 165.1 cm (5' 5") 09/14/2023 4:19 PM EST Body Mass Index 22.2 09/14/2023 4:19 PM EST documented in this encounter Progress Notes * Wade Bragg MD - 10/03/2023 1:00 PM EST Subjective: Oc Cazares is a 53 year old male here today for Chief Complaint Patient presents with Status Check Return in 3 months Here for routine recheck. Following with cardiology as well. Most recent cardiac intervention was cath at [facility] end of July. Mid LAD with 50% stenosis. MidLCx with 80% instent restenosis - failed attempt at intervention. Prox and mid RCA with 40% stenoses. Plan was for medical management of angina- imdur 30 mg daily started. Pt appears to be tolerating and does have cardiology follow up. GERD controlled with current meds. Moods/anxiety stable with sertraline. Past Medical History: Diagnosis Date Anxiety 2011 Casanova esophagus 2015 Depression 2011 1 week in [facility], was on Zoloft Dyslipidemia, goal LDL below 130 INFORMATION 07/2014 10 year risk 19% INFORMATION 09/2015 10 year cardiovascular risk of 21% INFORMATION 05/2017 10 year cardiovascular risk 18.5% Past Surgical History: Procedure Laterality Date COLONOSCOPY, DIAGNOSTIC (RECTUM) 05/06/2020 internal hemorrhoids/biopsies show adenomatous polyps/recall 5 years/COLONOSCOPY FLEXIBLE PROXIMAL DIAGNOSTIC performed by Kike Gross DO at ENDOSCOPY [facility] CORONARY ANGIOGRAPHY W/LEFT HEART CATH N/A 08/10/2023 CORONARY ANGIOGRAPHY W/LEFT HEART CATH performed by Pat Monroy MD at CARDIAC LABS [facility] EGD, FLEXIBLE, DIAGNOSTIC 12/25/2016 [place], repeat 3 yrs/ESOPHAGOGASTRODUODENOSCOPY (EGD), FLEXIBLE, TRANSORAL, DIAGNOSTIC performed by Kike Gross DO at ENDOSCOPY [facility] EGD, FLEXIBLE, DIAGNOSTIC 05/06/2020 medium sized hiatal hernia/gastritis/biopsies confirm barretts/recall 3 years/ESOPHAGOGASTRODUODENOSCOPY (EGD), FLEXIBLE, TRANSORAL, DIAGNOSTIC performed by Kike Gross DO at ENDOSCOPY [facility] EGD, FLEXIBLE, DIAGNOSTIC N/A 08/22/2021 [facility], EGD, Esophageal mucosal changes suspicious for Casanova's esopahgaus state C4-M5, gastritis, duodentitis / biopsies evid of infection know as Casanova's esophagitis/ 1 year recall EGD, FLEXIBLE, DIAGNOSTIC 09/23/2021 [place], pancreatic stent removed, repeat 3 yrs / [facility] EGD, W/ENDOSCOPIC US 10/18/2015 [place], repeat 1 yr/[facility] ERCP N/A 08/22/2021 [facility], ERCP, major papilla located partially within diverticulum, Choledocholithiasis found, 1 biliary stent placed / no specimens collected / repeat in 6 week to remove stent ERCP 09/23/2021 Choledocholithiasis / [facility] US ENDOSCOPIC N/A 08/22/2021 [facility], EUS dilation common bile duct up to 7mm, 1 stone in common bile duct, many stones in gallbladder, Pancreatic parenchymal abnormalitis, 1 benign lymph node in annie hepatis region / no specimenscollected / [facility] 02/23/2003 Review of patient's allergies indicates: Allergen Reactions Imdur [Isosorbide Nitrate] Severe Mirgrains Current Outpatient Medications Medication Sig Dispense Refill Brilinta 90 MG Oral Tablet Take 1 Tablet by mouth in the morning and 1 Tablet before bedtime. 180 Tablet 3 Dicyclomine HCl 10 MG Oral Capsule (Bentyl) take 1 capsule by mouth twice a day if needed for abdominal pain 60 Capsule 5 Spironolactone 25 MG Oral Tablet (Aldactone) Take 0.5 Tablets by mouth in the morning. 45 Tablet 3 Sucralfate 1 GM Oral Tablet (Carafate) Take 1 Tablet by mouth 4 times a day before meals and at bedtime. Metoprolol Succinate ER 25 MG Oral Tablet Extended Release 24 Hour (toPROL XL) Take 1 Tablet by mouth in the morning and 1 Tablet before bedtime. 180 Tablet 3 Ezetimibe 10 MG Oral Tablet (Zetia) take 1 tablet by mouth every morning 90 Tablet 3 Pantoprazole Sodium 40 MG Oral Tablet Delayed Release (Protonix) take 1 tablet by mouth every morning 90 Tablet 3 Nitroglycerin 0.4 MG Sublingual Tablet Sublingual (Nitrostat) place 1 tablet under the tongue if needed every 5 minutes for chest pain for 3 doses IF NO RELIEF AFTER THIRD DOSE CALL 911. 25 Tablet 11 Magnesium Oxide (Antacid) 400 MG Oral Tablet take 1 tablet by mouth IN THE MORNING 90 Tablet 3 Famotidine 40 MG Oral Tablet (Pepcid) take 1 tablet by mouth BEFORE BEDTIME 90 Tablet 3 Aspirin 81 MG Oral Tablet Delayed Release (Aspirin Low Dose) Take 1 tablet by mouth every morning 90 Tablet 0 Rosuvastatin Calcium 40 MG Oral Tablet (Crestor) Take 1 Tablet by mouth in the morning. 90 Tablet 0 Sertraline HCl 100 MG Oral Tablet (Zoloft) Take 1 Tablet by mouth in the morning. 90 Tablet 3 Current Facility-Administered Medications Medication Dose Route Frequency Provider Last Rate Last Admin albuterol sulfate (PROVENTIL) (2.5 MG/3ML) 0.083% inhalation solution 2.5 mg 2.5 mg Nebulizer Q4H PRShant Torres MD 2.5 mg at 03/08/19 1429 Objective: BP 124/78 | Pulse 58 | Temp 36.6 C (97.8 F) (Temporal Artery) | Resp 20 | Ht 1.651 m(5' 5") | Wt 60.5 kg (133 lb 6.4 oz) | SpO2 98% | BMI 22.20 kg/m | BSA 1.67 m GEN: NAD HEENT: Benign NECK: Supple with no LAD, TM, JVD CHEST: CTA B CV: RRR ABD: Soft, NT/ND, No HSM, NABS EXT: No c,c,e Assessment and Plan: Coronary artery disease of [place] artery of [place] heart with stable angina pectoris (HCC) (Primary) Dyslipidemia, goal LDL below 70 HFrEF (heart failure with reduced ejection fraction) (HCC) Ischemic cardiomyopathy [place] (myocardial infarction) Gastroesophageal reflux disease with esophagitis without hemorrhage Generalized anxiety disorder Other orders - Sertraline HCl 100 MG Oral Tablet (Zoloft); Take 1 Tablet by mouth in the morning. Continue all same meds and follow up with cardiology as scheduled. Call for new or worsening symptoms Follow Up: Return in about 6 months (around 03/15/2024) for recheck. | For: recheck 26 min with pt and chart review. Wade Bragg MD documented in this encounter Nursing Notes * Jasmin Salomon LPN - 09/14/2023 4:19 PM EST The patient has been properly identified by confirmation of name and date of . Chief Complaint Patient presents with Status Check Return in 3 months documented in this encounter Plan of Treatment [...] Not on filedocumented as of this encounter Visit Diagnoses Diagnosis Coronary artery disease of [place] artery of [place] heart with stable angina pectoris (HCC)- Primary Dyslipidemia, goal LDL below 70 Other and unspecified hyperlipidemia HFrEF (heart failure with reduced ejection fraction) (HCC) Ischemic cardiomyopathy Other specified forms of chronic ischemic heart disease [place] (myocardial infarction) Old myocardial infarction Gastroesophageal reflux disease with esophagitis without hemorrhage Generalized anxiety disorder documented in this encounter Advance Directives Latest Code Status on File Code Status Date Activated Date Inactivated Comments Full Code 08/14/2022 1:00 AM 08/17/2022 2:38 PM This order reflects the patients wishes and were consensually agreed upon. Question Answer Comments Discussion of Advance Directives occurred with: Patient Care Teams Cell Inspector Relationship Specialty Start Date End Date Wade Bragg MD [address] [place] [address] PCP - General Family Medicine 03/24/18 documented as of this encounter
--- OUTSIDE RECORDS SUMMARY | 2023-10-22 07:58 | External Medical Summary | Summary of Care ---
Author Name Unknown Organization [facility] Address [address] [facility] [place] [address] Phone [phone] Care Team Providers Care Machine Baster Name Role Phone Wade Bragg MD Primary Care Provider +1- [phone] Reason for Visit * Reason Onset Date Comments Test Results 10/15/2023 Encounter Details Date Type Department Care Team (Late st Contact Info) Description 10/15/2023 Telephone Cardiology, [facility] [address] [place] [address] Carmen Hutton PA-C [address] [place] [address] Test Results Allergies Active Allergy Reactions Criticality Noted Date Comments Isosorbide Nitrate 07/30/2023 Severe Mirgrains documented as of this encounter (statuses as of 10/15/2023) Medications Medication Sig Dispensed Refills Start Date [...] Hour (toPROL XL)Indications:Coron clark artery disease involving [place] coronary artery of [place] heart without angina pectoris,Ischemic cardiomyopathy,Dysli pidemia, goal LDL below 70,Tobacco use disorder Take 1 Tablet by mouth in the morning and 1 Tablet before bedtime. 180 Tablet 3 07/30/2023 Active Ezetimibe 10 MG Oral Tablet (Zetia)Indications:C oronary artery disease involving [place] coronary artery of [place] heart without angina pectoris,Dyslipidemi a, goal LDL below 130,Old [place] (myocardial infarction) take 1 tablet by mouth every morning 90 Tablet 3 08/30/2023 Active Pantoprazole Sodium 40 MG Oral Tablet Delayed Release (Protonix) take 1 tablet by mouth every morning 90 Tablet 3 08/30/2023 Active Nitroglycerin 0.4 MG Sublingual Tablet Sublingual (Nitrostat)Indicatio ns:Coronary artery disease involving [place] coronary artery of [place] heart without angina pectoris place 1 tablet [...] as of this encounter (statuses as of 10/15/2023) Active Problems Problem Noted Date Diagnosed Date Ischemic cardiomyopathy 06/22/2023 NSVT (nonsustained ventricular tachycardia) 06/[address] elevation myocardial infarction (S ANT) 06/22/2023 HFrEF (heart failure with reduced ejection fract ion) 06/22/2023 S/P angioplasty with stent 05/28/2023 Gastroesophageal reflux dise ase with esophagitis without hemorrhage 12/16/2020 [place] (myocardial infarction) 06/27/2018 Coronary artery disease of n ative artery of [place] heart with stable angina pectoris 06/27/2018 History of acute pancreatitis 06/27/2018 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 Dyslipidemia, goal LDL below 70 09/18/2013 Generalized anxiety disorder 03/09/2013 Tobacco use disorder 01/03/2013 documented as of this encounter (statuses as of 10/15/2023) Resolved Problems Problem Noted Date Diagnosed Date [...] as of this encounter (statuses as of 10/15/2023) Immunizations Name Administration Dates Next Due Hepatitis [...] Comments DISCUSS TOBACCO CESSATION (REFER TO SMARTSET #4070) 1970 COVID-19 Vaccine (#1) 03/21/1970 Pneumococcal Vaccine: [...] Advance Directives occurred with: Patient Care Teams Machine Baster Relationship Specialty Start Date End Date Wade Bragg MD [address] [place] [address] PCP - General Family Medicine 03/24/18 documented as of this encounter
--- OUTSIDE RECORDS SUMMARY | 2023-10-22 07:58 | External Medical Summary | Summary of Care ---
Author Name Unknown Organization [facility] Address [address] [facility] [place] [address] Phone [phone] Care Team Providers Care Gamb Cutter Name Role Phone Wade Bragg MD Primary Care Provider +1- [phone] Reason for Visit * Reason Onset Date Comments Test Results 10/15/2023 Encounter Details Date Type Department Care Team (Late st Contact Info) Description 10/15/2023 Telephone Cardiology, [facility] [address] [place] [address] Carmen Hutton PA-C [address] [place] [phone] Test Results Allergies Active Allergy Reactions Criticality [...] Hour (toPROL XL)Indications:Co ronary artery disease involving [place] coronary artery of [place] heart without angina pectoris,Ischemic cardiomyopathy,Dy slipidemia, goal LDL below 70,Tobacco use disorder Take 1 Tablet by mouth in the morning and 1 Tablet before bedtime. 180 Tablet 3 07/30/2023 Active Ezetimibe 10 MG Oral Tablet (Zetia)Indication s:Coronary artery disease involving [place] coronary artery of [place] heart without angina pectoris,Dyslipid emia, goal LDL below 130,Old [place] (myocardial infarction) take 1 tablet by mouth every morning 90 Tablet 3 08/30/2023 Active Pantoprazole Sodium 40 MG Oral Tablet Delayed Release (Protonix) take 1 tablet by mouth every morning 90 Tablet 3 08/30/2023 Active Nitroglycerin 0.4 MG Sublingual Tablet Sublingual (Nitrostat)Indica tions:Coronary artery disease involving [place] coronary artery of [place] heart without angina pectoris place 1 tablet [...] every morning 90 Tablet 0 09/07/2023 Active Sertraline HCl 100 MG Oral Tablet (Zoloft) Take 1 Tablet by mouth in the morning. 90 Tablet 3 09/14/2023 Active Rosuvastatin Calcium 40 MG Oral Tablet (Crestor) Take 1 Tablet by mouth in the morning. 90 Tablet 0 09/07/2023 4 Discontinued Hospital, Clinic, or Other Facility Administered Medication [...] ase with esophagitis without hemorrhage 12/16/2020 [place] (myocardial infarction) 06/27/2018 Coronary artery disease of n ative artery of [place] heart with stable angina pectoris 06/27/2018 History [...] encounter Miscellaneous Notes * Telephone Encounter - Carmen Hutton PA-C - 10/18/2023 4:24 PM EST MyG reply sent to patient. Stable angina noted. Could consider future amlodipine or Ranexa if needed * Telephone Encounter - Poppy Mendoza CMA [...] Advance Directives occurred with: Patient Care Teams Gamb Cutter Relationship Specialty Start Date End Date Wade Bragg MD [address] [facility] [place] [address] PCP - General Family Medicine 03/24/18 documented as of this encounter
--- OUTSIDE RECORDS SUMMARY | 2023-10-22 07:58 | External Medical Summary | Summary of Care ---
Author Name Unknown Organization [facility] Address [address] [place] [address] Phone [phone] Care Team Providers Care Shellacker Name Role Phone Ubaldo Falk MD Primary Care Provider +1- [phone] Reason for Visit * Reason Comments eRx-Medication Refill Encounter Details Date Type Department Care Team (Late st Contact Info) Description 10/17/2023 Refill [facility] [address] [place] [address] Ubaldo Falk MD [address] [place] [address] Allergies Active Allergy Reactions Criticality Noted Date [...] Hour (toPROL XL)Indications:Co ronary artery disease involving nez perce coronary artery of ne[place] heart without angina pectoris,Ischemic cardiomyopathy,Dy slipidemia, goal LDL below 70,Tobacco use disorder Take 1 Tablet by mouth in the morning and 1 Tablet before bedtime. 180 Tablet 3 07/30/2023 Active Ezetimibe 10 MG Oral Tablet (Zetia)Indication s:Coronary artery disease involving [place] coronary artery of [place] heart without angina pectoris,Dyslipid emia, goal LDL below 130,Old [place] (myocardial infarction) take 1 tablet by mouth every morning 90 Tablet 3 08/30/2023 Active Pantoprazole Sodium 40 MG Oral Tablet Delayed Release (Protonix) take 1 tablet by mouth every morning 90 Tablet 3 08/30/2023 Active Nitroglycerin 0.4 MG Sublingual Tablet Sublingual (Nitrostat)Indica tions:Coronary artery disease involving [place]z perce coronary artery of nez perce heart without angina pectoris place 1 tablet [...] Rosuvastatin Calcium 40 MG Oral Tablet (Crestor) TAKE 1 TABLET BY MOUTH EVERY MORNING 90 Tablet 3 10/18/2023 Active Rosuvastatin Calcium 40 MG Oral Tablet (Crestor) Take 1 Tablet by mouth in the morning. 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 06/27/2018 History [...] encounter Miscellaneous Notes * Telephone Encounter - Shu [facility] - 10/18/2023 3:36 PM ESTSigned Prescriptions: Disp Refills Rosuvastatin Calcium 40 MG Oral Tablet (Cr*90 Tab*3 Sig: TAKE 1 TABLET BY MOUTH EVERY MORNINGAuthorizing Provider: UBALDO AFLK User: BRAD GOODMAN documented in this encounter Plan of Treatment Scheduled Procedures Name Priority Associated Diagnoses Date/Ti me ESOPHAGOGASTRODUODENOSCOPY ( EGD), FLEXIBLE, TRANSORAL, DIAGNOSTIC Recall 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
--- OUTSIDE RECORDS SUMMARY | 2023-10-22 07:59 | External Medical Summary | Summary of Care ---
Author Name Unknown Organization [facility] Address [address] [facility] [place] [address] Phone [phone] Care Team Providers Care Billet Heater Operator Name Role Phone Wade Bragg MD Primary Care Provider +1- [phone] Reason for Visit * Reason Comments Outpatient Testing Encounter Details Date Type Department Care Team (Late st Contact Info) Description 09/21/2023 9:00 AM EST Laboratory Laboratory, [facility] [place] [address] [place] [address] [facility] [address] [place] [address] HFrEF (heart failure with reduced ejection fraction) ([facility] Ischemic cardiomyopathy; Dizziness Allergies Active Allergy Reactions Criticality Noted Date Comments Isosorbide Nitrate 07/30/2023 Severe Mirgrains documented as of this encounter (statuses as of 09/21/2023) Medications Medication Sig Dispensed Refills Start Date [...] Hour (toPROL XL)Indications:Coron clark artery disease involving [place] coronary artery of [place] heart without angina pectoris,Ischemic cardiomyopathy,Dysli pidemia, goal LDL below 70,Tobacco use disorder Take 1 Tablet by mouth in the morning and 1 Tablet before bedtime. 180 Tablet 3 07/30/2023 Active Ezetimibe 10 MG Oral Tablet (Zetia)Indications:C oronary artery disease involving [place] coronary artery of [place] heart without angina pectoris,Dyslipidemi a, goal LDL below 130,Old [place] (myocardial infarction) take 1 tablet by mouth every morning 90 Tablet 3 08/30/2023 Active Pantoprazole Sodium 40 MG Oral Tablet Delayed Release (Protonix) take 1 tablet by mouth every morning 90 Tablet 3 08/30/2023 Active Nitroglycerin 0.4 MG Sublingual Tablet Sublingual (Nitrostat)Indicatio ns:Coronary artery disease involving [place] coronary artery of red cliff heart without angina pectoris place 1 tablet [...] as of this encounter (statuses as of 09/21/2023) Active Problems Problem Noted Date Diagnosed Date Ischemic cardiomyopathy 06/22/2023 NSVT (nonsustained ventricular tachycardia) 06/[address] elevation myocardial infarction (S ANT) 06/22/2023 HFrEF (heart failure with reduced ejection fract ion) 06/22/[address] elevation myocardial infarction (STEMI) 05/28/2023 S/P angioplasty with stent 05/28/2023 Gastroesophageal reflux dise ase with esophagitis without hemorrhage 12/16/2020 Old [place] (myocardial infarction) 06/27/2018 Coronary artery disease invo lving red cliff coronary artery of red cliff heart without angina pectoris 06/27/2018 History of acute pancreatitis 06/27/2018 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 Dyslipidemia, goal LDL below 70 09/18/2013 Generalized anxiety disorder 03/09/2013 Tobacco use disorder 01/03/2013 documented as of this encounter (statuses as of 09/21/2023) Resolved Problems Problem Noted Date Diagnosed Date Resolved Date Acute pancreatitis 08/13/2022 3 INFORMATION 05/11/2017 03/24/2018 [...] as of this encounter (statuses as of 09/21/2023) Immunizations Name Administration Dates Next Due Hepatitis [...] on file documented as of this encounter Plan of Treatment Pending Results Name Type Priority Associated Diagnoses Date /Time CBC Lab Routine HFrEF (heart failure with reduced ejection fraction) (HCC) Ischemic cardiomyopathy Dizziness 09/21/2023 8:53 AM EST COMPREHENSIVE METABOLIC PANEL Lab Routine HFrEF (heart failure with reduced ejection fraction) (HCC) Ischemic cardiomyopathy Dizziness 09/21/2023 8:53 AM EST TSH WITH FREE T4 IF INDICATED Lab Routine HFrEF (heart failure with reduced ejection fraction) (HCC) Ischemic cardiomyopathy Dizziness 09/21/2023 8:53 AM EST MAGNESIUM Lab Routine HFrEF (heart failure with reduced ejection fraction) (HCC) Ischemic cardiomyopathy Dizziness 09/21/2023 8:53 AM EST Scheduled Procedures Name Priority Associated Diagnoses Date/Ti me ESOPHAGOGASTRODUODENOSCOPY ( EGD), FLEXIBLE, TRANSORAL, DIAGNOSTIC Recall 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 COLONOSCOPY FLEXIBLE PROXIMAL DIAGNOSTIC Recall History of colonic polyps Health Maintenance Due Date Last Done Comments DISCUSS TOBACCO CESSATION (REFER TO SMARTSET #9199) 1970 COVID-19 Vaccine (#1) 03/21/1970 Pneumococcal Vaccine: Pediatrics (0 to 5 Years) and At-Risk Patients (6 to 64 Years) (1 - PCV) 1975 Hepatitis C Screening 1987 Zoster Vaccines (1 of 2) 2019 DTaP,Tdap,and Td Vaccines (2 - Td or Tdap) 12/21/2022 12/21/2012 Casanova's Esophagus Surveilance 05/06/2023 05/06/2020, 12/25/2016 Influenza Vaccine (FLU shot) (#1) 2023 Depression Screening 02/16/2024 02/15/2023, 05/31/2017 COLONOSCOPY-EVERY 5 YRS AGES 18-100 05/06/2025 05/06/2020, 05/06/2020 Hepatitis B Completed 08/24/2011, 04/09/2011, 03/05/2011 GARDASIL-HPV IMMUNIZATION SERIES Aged Out No longer eligible b ased on patient's age to complete this topic MENINGOCOCCAL (MENACTRA/MENVEO) Aged Out No longer eligible b ased on patient's age to complete this topic documented as of this encounter Medical Devices Not on filedocumented as of this encounter Visit Diagnoses Diagnosis HFrEF (heart failure with reduced ejection fraction) (HCC) Ischemic cardiomyopathy Other specified forms of chronic ischemic heart disease Dizziness Dizziness and giddiness documented in this encounter Advance Directives Latest Code Status on File Code Status Date Activated Date Inactivated Comments Full Code 08/14/2022 1:00 AM 08/17/2022 2:38 PM This order reflects the patients wishes and were consensually agreed upon. Question Answer Comments Discussion of Advance Directives occurred with: Patient Care Teams Billet Heater Operator Relationship Specialty Start Date End Date Wade Bragg MD [address] [place] [address] PCP - General Family Medicine 03/24/18 documented as of this encounter
--- OUTSIDE RECORDS SUMMARY | 2023-10-22 07:59 | External Medical Summary ---
Author Name Unknown Address Unknown Organization [id number]:[facility] [address] [place] [address] Laboratory Report Ordering Provider Test Date Status MYRIAM FARNSWORTH 09/21/2023 08:53:52 Final Observation Date Value Abnormality Reference (Units ) Status BUN 09/21/2023 08:53:52 12 6-20 (mg/dL) Final Creatinine 09/21/2023 08:53:52 1.3 Above high normal 0.6-1.2 (mg/dL) Final Glomerular filtration rate/1.73 sq M.predicted [Volume Rate/Area] in Serum, Plasma or Blood by Creatinine-based formula (CKD-EPI) 09/21/2023 08:53:52 67 >=60 (mL/min) Final eGFR is calculated based on the CKD-EPI 2020 equation SODIUM 09/21/2023 08:53:52 140 135-146 (m mol/L) Final Potassium 09/21/2023 08:53:52 4.5 3.5-5.1 (m mol/L) Final Cl 09/21/2023 08:53:52 103 98-107 (mm ol/L) Final CO2 09/21/2023 08:53:52 28 22-32 (mmo l/L) Final Anion gap 09/21/2023 08:53:52 9 7-15 (mmol /L) Final Glucose 09/21/2023 08:53:52 88 70-120 (mg /dL) Final Albumin 09/21/2023 08:53:52 4.4 3.8-5.0 (g /dL) Final AST (Aspartate aminotransferase) 09/21/2023 08:53:52 28 10-50 (U/L) Final Alk Phos 09/21/2023 08:53:52 68 35-130 (U/ L) Final Bilirubin, Total 09/21/2023 08:53:52 0.5 <=1 .2 (mg/dL) Final Calcium 09/21/2023 08:53:52 9.7 8.4-10.2 ( mg/dL) Final Protein 09/21/2023 08:53:52 6.6 6.0-8.3 (g /dL) Final ALT (Alanine aminotransferase) 09/21/2023 08:53:52 28 10-50 (U/L) Final Performing Location [facility] [place] [address] [facility] [address]
--- OUTSIDE RECORDS SUMMARY | 2023-10-22 07:59 | External Medical Summary | Summary of Care ---
Author Name Unknown Organization [facility] Address [address] [place] [address] Phone [phone] Care Team Providers Care Yarrow Gatherer Name Role Phone Wade Bragg MD Primary Care Provider +1- [phone] Reason for Visit * Reason Onset Date Comments Test Results Lab 09/16/2023 Reviewing ldl + trig increase Encounter Details Date Type Department Care Team (Late st Contact Info) Description 09/16/2023 Telephone [facility] [address] [place] [address] Wade Bragg MD [address] [place] [address] Test Results Lab (Reviewing ldl + trig inc... Allergies Active Allergy Reactions Criticality Noted Date [...] Hour (toPROL XL)Indications:Coron clark artery disease involving [place] coronary artery of [place] heart without angina pectoris,Ischemic cardiomyopathy,Dysli pidemia, goal LDL below 70,Tobacco use disorder Take 1 Tablet by mouth in the morning and 1 Tablet before bedtime. 180 Tablet 3 07/30/2023 Active Ezetimibe 10 MG Oral Tablet (Zetia)Indications:C oronary artery disease involving [place] coronary artery of [place] heart without angina pectoris,Dyslipidemi a, goal LDL below 130,Old [place] (myocardial infarction) take 1 tablet by mouth every morning 90 Tablet 3 08/30/2023 Active Pantoprazole Sodium 40 MG Oral Tablet Delayed Release (Protonix) take 1 tablet by mouth every morning 90 Tablet 3 08/30/2023 Active Nitroglycerin 0.4 MG Sublingual Tablet Sublingual (Nitrostat)Indicatio ns:Coronary artery disease involving [place] coronary artery of [place] heart without angina pectoris place 1 tablet [...] ase with esophagitis without hemorrhage 12/16/2020 Old [place] (myocardial infarction) 06/27/2018 Coronary artery disease invo lving [place] coronary artery of [place] heart without angina pectoris 06/27/2018 History of [...] encounter Miscellaneous Notes * Telephone Encounter - Augustina Iraheta, [facility] - 09/16/2023 9:42 AM EST Unable to reach patient at this time. Left message on the answering machine requesting callback regarding lipid panel results. Advised patient to please call [phone]. Please transfer him back tomyself. If I'm not available, transfer to next available [facility]. Patient did have OV on 09/14 - did PCP review? Note in still open. Lipid Panel Results: Results for orders placed or performed in visit on 09/08/23 LIPID PANEL WITH DIRECT LDL IF TG IS HIGH Result Value Ref Range Triglycerides 165 <=174 mg/dL Cholesterol 197 <200 mg/dL HDL Cholesterol 46 >39 mg/dL Non-HDL Cholesterol 151 <=159 mg/dL LDL Cholesterol 118 <=129 mg/dL LDL increased from 43 on 08/13/22 to 118 on 09/08/23. Patient is on zetia and crestor - assess compliance. 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
--- OUTSIDE RECORDS SUMMARY | 2023-10-22 07:59 | External Medical Summary ---
Author Name Unknown Address Unknown Organization [id number][facility] [place] [address] [place] [address] Laboratory Report Ordering Provider Test Date Status MYRIAM FARNSWORTH 09/21/2023 08:53:52 Final Observation Date Value Abnormality Reference (Units ) Status TSH 09/21/2023 08:53:52 1.29 0.27-4.20 (uIU/mL) Final Performing Location [facility] - [address] [facility] [address]
--- OUTSIDE RECORDS SUMMARY | 2023-10-22 07:59 | External Medical Summary ---
Author Name Unknown Address Unknown Organization K01:[facility] - [address] [place] [address] Laboratory Report Ordering Provider Test Date Status MYRIAM FARNSWORTH 09/21/2023 08:53:52 Final Observation Date Value Abnormality Reference (Units ) Status Magnesium 09/21/2023 08:53:52 2.3 1.5-2.6 (m g/dL) Final Performing Location [facility] - [address] [place] [address]
--- OUTSIDE RECORDS SUMMARY | 2023-10-22 07:59 | External Medical Summary | Summary of Care ---
Author Name Unknown Organization [facility] Address [address] [place] [address] Phone [phone] Care Team Providers Care Security Flex Officer Name Role Phone Wade Bragg MD Primary Care Provider +1- [phone] Reason for Visit * Reason Onset Date Comments Test Results Lab 09/16/2023 Reviewing ldl + trig increase Encounter Details Date Type Department Care Team (Late st Contact Info) Description 09/16/[address] [facility] [address] [place] [address] Wade Bragg MD [address] [place] [address] Test Results Lab (Reviewing ldl [...] angina pectoris,Dyslipidemi a, goal LDL below 130,Old [place] (myocardial infarction) take 1 tablet by mouth [...] ase with esophagitis without hemorrhage 12/16/2020 Old [place] (myocardial infarction) 06/27/2018 Coronary artery disease invo lving [place] coronary artery of [place] heart without angina pectoris 06/27/2018 History of [...] Notes * Telephone Encounter - Augustina Iraheta, [facility] - 09/16/2023 9:42 AM EST Unable to reach patient at this time. Left message on the answering machine requesting callback regarding lipid panel results. Advised patient to please call [phone]. Please transfer him back tomyself. If I'm not available, transfer to next available [facility]. 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
--- OUTSIDE RECORDS SUMMARY | 2023-10-22 07:59 | External Medical Summary | Summary of Care ---
Author Name Unknown Organization [facility] Address [address] [facility] 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 Embossing Machine Operator Helper Name Role Phone Wade Bragg MD Primary Care Provider [phone]- [phone] Reason for Visit * Reason Comments Follow Up Encounter Details Date Type Department Care Team (Late st Contact Info) Description 09/21/2023 8:00 AM EST Office Visit Cardiology, [facility] [address] [place] [address] Carmen Hutton PA-C [address] [place] [address] Dizziness*; HFrEF (heart failure with reduced ejection fraction) ([facility]); Ischemic cardiomyopathy; Near syncope; Bradycardia; NSVT (nonsustained ventricular tachycardia) ([facility]); 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 bill moore's slough heart with stable angina pectoris ([facility]) Allergies Active Allergy Reactions Criticality Noted Date Comments Isosorbide Nitrate 07/30/2023 Severe Mirgrains documented as of this encounter (statuses as of 09/21/2023) Medications Medication Sig Dispensed Refills Start Date End Date Status Brilinta 90 MG Oral TabletIndications:NS ANT (non-ST elevation myocardial infarction) ([facility]) Take 1 Tablet by mouth in the [...] Hour (toPROL XL)Indications:Coron clark artery disease involving bill moore's slough coronary artery of bill moore's slough heart without angina pectoris,Ischemic cardiomyopathy,Dysli pidemia, goal LDL below 70,Tobacco use disorder Take 1 Tablet by mouth in the morning and 1 Tablet before bedtime. 180 Tablet 3 07/30/2023 Active Ezetimibe 10 MG Oral Tablet (Zetia)Indications:C oronary artery disease involving bill moore's slough coronary artery of bill moore's slough heart without angina pectoris,Dyslipidemi a, goal LDL below 130,Old OH (myocardial infarction) take 1 tablet by mouth every morning 90 Tablet 3 08/30/2023 Active Pantoprazole Sodium 40 MG Oral Tablet Delayed Release (Protonix) take 1 tablet by mouth every morning 90 Tablet 3 08/30/2023 Active Nitroglycerin 0.4 MG Sublingual Tablet Sublingual (Nitrostat)Indicatio ns:Coronary artery disease involving bill moore's slough coronary artery of bill moore's slough heart without angina pectoris place 1 tablet [...] ase with esophagitis without hemorrhage 12/16/2020 Old OH (myocardial infarction) 06/27/2018 Coronary artery disease of n ative artery of bill moore's slough heart with stable angina pectoris 06/27/2018 History [...] medical exam 01/03/2013 018 Gastroesophageal reflux 01/03/2013 05/2021 Screening for cardiovascular condition 01/03/2013 05/31/2017 [...] Sign Reading Time Taken Comments Blood Pressure 126/84 09/21/2023 8:03 AM EST Pulse 60 09/21/2023 8:03 AM EST Temperature - - Respiratory Rate - - Oxygen Saturation - - Inhaled Oxygen Concentration - - Weight 60.8 kg (134 lb) 09/21/2023 8:03 AM EST Height - - Body Mass Index 22.3 09/14/2023 4:19 PM EST documented in this encounter Progress Notes * Brennen, Carmen Le, PA-C - 09/21/2023 8:05 AM EST Images from the original note were not included. 09/21/2023 Cardiology F/U: HPI: Patient is a complex 53-year-old male here today for close cardiology follow-up. Last clinic evaluation approximately 2 months ago with HAKAN Rae. 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 Tamez. History includes: Premature CAD Coronary artery disease status post PCI to the RCA in the setting of a [id number] elevation OH. Inferior STEMI/100% acute distal circumflex occlusion at bifurcation with large PLB Moderate nonobstructive non-culprit coronary artery disease 50 to 60% mid LAD (unchanged from 10/2018) Widely patent RCA stents PCI to OM1 December 2020 in the setting of syncope and transient Mobitz 2 heart block Admission in May 2023 with STEMI with thrombosis of the prior stent to OM1, S/P PCI of the OM1 with 1 MELLY. Attempt to open the distal AV groove circumflex was unsuccessful. Residual 60% mid-LAD stenosis with an FFR of 0.85. LVEF 25% Repeat cath Jul 2023 - * The target lesion we wanted to fix was mid circumflex at the ostium with OM1 bifurcation which had 80% InStent restenosis. There is also 95% InStent restenosis in distal LPL branch. We attempted toperform POBA of the lesion (has 2 prior stent layers). We were not able to pass even the smallest profile balloon that we have (1.25 mm). We used GuideLiner for additional support. There was some concern for wire passing behind the strut so we tried to wire the lesion multiple times with a loop so that we stay intraluminal. Despite this, we were not able to pass balloon for POBA. This was harder than anticipated because of prior 2 layers of stents, acute angle of OM1 takeoff and advanced disease. * Mid LAD has 50% stenosis Prior Cx stent is patent Ischemic cardiomyopathy, 25% 05/2023, 35-40% per echo 07/09/2023 History of non sustained VT Hx of PAF Ongoing tobacco abuse. Anxiety. Since last clinic evaluation, due to recurrent chest pressure/angina, patient underwent repeat cathat [facility] [place] with Dr. Monroy to attempt intervention on the mid circumflex lesion. Unfortunately guide wire was not able to pass and no intervention was performed. Isosorbide was initiated but then stopped due to worsening headaches/migraines. Patient presents today noting ongoing chest pain/pressure, nearly on a daily basis. He is able to complete his daily tasks at work, but often needs to stop and rest. He only takes nitro if symptoms fail to improve. Last dose of nitro was last week. 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 His primary concern today is worsening dizziness. Occurs with exertional activities. Feels near syncopal at times and often has to stop and lean against a wall or sit down. Symptoms then improve. He believes he drinks a lot of water/fluid and remains hydrated. He denies symptoms of palpitations or t achypalpitations. No true syncope. Review of Systems: See HPI for pertinent positives. All others negative, other than those noted in HPI. 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 Old OH (myocardial infarction) I25.2 Coronary artery disease involving bill moore's slough coronary artery of bill moore's slough heart without angina pectoris I25.10 History of acute pancreatitis Z87.19 Gastroesophageal reflux disease with esophagitis without hemorrhage K21.[address] elevation myocardial infarction (STEMI) ([facility]) I21.3 S/P angioplasty with stent Z95.820 Ischemic cardiomyopathy I25.5 NSVT (nonsustained ventricular tachycardia) ([facility]) I47.[address] elevation myocardial infarction (STEMI) I25.2 HFrEF (heart failure with reduced ejection fraction) ([facility]) I50.20 Social History Tobacco Use Smoking status: Every Day Packs/day: 0.25 Years: 31.00 Additional pack years: 0.00 Total pack years: 7.75 Types: Cigarettes Passive exposure: Current Smokeless tobacco: Never Tobacco comments: 2-3 cig/day as of 12/23/20 Vaping Use Vaping Use: Never used Substance Use Topics Alcohol use: Not Currently Comment: last 2015 Drug use: No Comment: pepsi- 6 pack per day Family History Problem Relation Age of Onset Cancer None Diabetes Mother Hypertension Father Heart Disorder None Stroke Mother Mental Disorder Grandmother (Maternal) Past Surgical History: Procedure Laterality Date COLONOSCOPY, DIAGNOSTIC (RECTUM) 05/06/2020 internal hemorrhoids/biopsies show adenomatous polyps/recall 5 years/COLONOSCOPY FLEXIBLE PROXIMAL DIAGNOSTIC performed by Kike Grsos DO at ENDOSCOPY [facility] CORONARY ANGIOGRAPHY W/LEFT HEART CATH N/A 08/10/2023 CORONARY ANGIOGRAPHY W/LEFT HEART CATH performed by Pat Monroy MD at [facility] LAB[facility] [place] EGD, FLEXIBLE, DIAGNOSTIC 12/25/2016 [place], repeat 3 yrs/ESOPHAGOGASTRODUODENOSCOPY (EGD), FLEXIBLE, TRANSORAL, DIAGNOSTIC performed by Kike Gross DO at ENDOSCOPY [facility] EGD, FLEXIBLE, DIAGNOSTIC 05/06/2020 medium sized hiatal hernia/gastritis/biopsies confirm barretts/recall 3 years/ESOPHAGOGASTRODUODENOSCOPY (EGD), FLEXIBLE, TRANSORAL, DIAGNOSTIC performed by Kike Gross DO at ENDOSCOPY [facility] EGD, FLEXIBLE, DIAGNOSTIC N/A 08/22/2021 [facility], EGD, Esophageal mucosal changes suspicious for Casanova's esopahgaus state C4-M5, gastritis, duodentitis / biopsies evid of infection know as Casanova's esophagitis/ 1 year recall EGD, FLEXIBLE, DIAGNOSTIC 09/23/2021 [place]ret[place], pancreatic stent removed, repeat 3 yrs / [facility] EGD, W/ENDOSCOPIC US 10/18/2015 Bar[place]ts, repeat 1 yr/[facility] ERCP N/A 08/22/2021 [facility], ERCP, major papilla located partially within diverticulum, Choledocholithiasis found, 1 biliary stent placed / no specimens collected / repeat in 6 week to remove stent ERCP 09/23/2021 Choledocholithiasis / [facility] US ENDOSCOPIC N/A 08/22/2021 [facility], EUS dilation common bile duct up to [...] solution 2.5 mg 2.5 mg Nebulizer Q4H PRN Shant Raymond MD 2.5 mg at 03/08/19 1429 Physical Exam BP 126/84 | Pulse 60 | Wt 60.8 kg (134 lb) | BMI 22.30 kg/m | BSA 1.67 m Blood pressure my repeat 136/82 General: No acute distress. A+Ox3. HEENT: Normocephalic. Atraumatic. Conjunctiva and sclera clear. NECK: No carotid bruits. No JVD. Carotid upstrokes are brisk. Heart: RRR. S1 and S2 noted without murmur, rubs, gallops. PMI non displaced. Lungs: Clear to auscultation. No wheezes, rhonchi, rales. Abdomen: Normal bowel sounds. Soft. Nontender. No masses or organomegaly. No abdominal bruits. Extremities: No edema. No clubbing or cyanosis. Pulses: radial=2/4, posterior tibial=2/4, dorsalis pedis = 2/4. NEURO: No focal deficits. PSYCH: Normal. Lab data/imaging study review: EKG performed today and reviewed personally: Sinus bradycardia at 51 bmp Possible old inferior infarct Ventricular rate has decreased Cath report reviewed from 08/10/23: * The target lesion we wanted to fix was mid circumflex at the ostium with OM1 bifurcation which had 80% InStent restenosis. There is also 95% InStent restenosis in distal LPL branch. We attempted toperform POBA of the lesion (has 2 prior stent layers). We were not able to pass even the smallest profile balloon that we have (1.25 mm). We used GuideLiner for additional support. There was some concern for wire passing behind the strut so we tried to wire the lesion multiple times with a loop so that we stay intraluminal. Despite this, we were not able to pass balloon for POBA. This was harder than anticipated because of prior 2 layers of stents, acute angle of OM1 takeoff and advanced disease. * Mid LAD has 50% stenosis Prior Cx stent is patent Echo at [facility] 07/09/2023 Echo 05/20/2023 Latest Reference Range & Units 09/08/23 16:02 Triglycerides <=174 mg/dL 165 Cholesterol <200 mg/dL 197 Non-HDL Cholesterol <=159 mg/dL 151 HDL Cholesterol >39 mg/dL 46 LDL Cholesterol <=129 mg/dL 118 Latest Reference Range & Units 07/30/23 14:18 Sodium 135 - 146 mmol/L 139 Potassium 3.5 - 5.1 mmol/L 3.9 Chloride 98 - 107 mmol/L 103 CO2 22 - 32 mmol/L 23 BUN 6 - 20 mg/dL 11 Creatinine 0.6 - 1.2 mg/dL 1.2 Estimated Glomerular Filtration Rate >=60 mL/min 76 Anion Gap 7 - 15 mmol/L 13 Glucose 70 - 120 mg/dL 88 Calcium 8.4 - 10.2 mg/dL 9.3 Protein 6.0 - 8.3 g/dL 6.7 Impression/Plan: 1. Coronary artery disease involving bill moore's slough coronary artery of bill moore's slough heart with angina. 2. Ischemic cardiomyopathy -Medically complex 52 year old male with history of premature CAD with multiple coronary interventions as described above-- history of STEMI with acute ischemic cardiomyopathy with LVEF initially 25%, but most recently 35-40% per echo 06/2023 -Ongoing concerns with exertional chest pain and shortness of breath lead to repeat cath in July2023. Unfortunately intervention was not able to be performed at that time on Circumflex lesion. 1. Continue DA PT with Aspirin and Brilinta. 2. Continue goal-directed medical therapy: Continue metoprolol, spironolactone, statin 4. Patient appears euvolemic on exam. Should patient require diuretic therapy would recommend cautious use due to history of chronic pancreatitis. 5. Intolerant to Imdur due to severe migraines. 7. Future considerations for the addition of Ranexa but with dizziness. Will not initiate. 8. No indication for AICD at this time, LV systolic function >35%. 8. Recommend activity restrictions to avoid recurrent chest pain. Patient works a physically demanding job- disability paperwork pending. 3. Dyslipidemia, goal LDL below 70 Uncontrolled per last evaluation. 1. Continue Crestor 40 mg daily and Zetia 10 mg daily' -MTM referral. Consider PCSK9 inhib 4. Dizziness/near syncope - etiology uncertain -currently BP controlled, not hypotensive in the office -Mild bradycardia noted with prior adjustment in metoprolol. He also has a history of non sustainedVT -recommend ZIO monitor to correlate dizziness/near syncope with arrhythmias or bradycardia -consider reduction in metoprolol -update labs today as well Consider future Ranexa vs low dose amlodipine Await ZIO monitor Will discuss case with Dr. Tamez in regards to past cath findings. Consider METAL FABRICATING SUPERVISOR clinic vs CT surgery. ? Need for viability study? I spent a total of 45 minutes on the date of service in preparation, delivery, and documentation ofthe care provided to Oc Cazares excluding any time spent in the performance of separately billedservices. The patient agrees to the above plan and will call with additional questions or concerns. ER with all emergencies advised. Follow-up: Return in about 3 months (around 12/21/2023). | Check-out note: ZIO done today Blood work today 3 months with Joi Hutton PA-C Department of Cardiology This chart was completed in part utilizing [employer] Voice Recognition Software. Grammatical errors, random word insertions, prounoun errors, and incomplete sentences are an occasional consequence of this system due to software limitations, ambient noise, and hardware issues. Any formal questions or concerns about the content, text, or information contained within the body of this dictation should be directly addressed to the provider for clarification. documented in this encounter Nursing Notes * Richar Hunt RN - 09/21/2023 8:02 AM EST Examination Room: room 1 Name: Oc Cazares Date of : (1970). Reason for Visit: for follow up Interim Hospitalization(s): July 2023 Problems/Concerns: dizzy spells Chest Pain/SOB: occ chest pressure [facility] Discussed: Not applicable [facility] is a way you can talk to your provider online through e-mail. Would you like to sign up? I can activate it for you? ALREADY ACTIVE Patient was instructed to not get up on the exam table until directed and assisted by their provider; patient is to remain seated in the chair/ wheelchair/ exam table for fall prevention and safety reasons. Patient is aware to have assistance to step down off exam table with personnel. Patient voiced full comprehension of instructions. documented in this encounter Plan of Treatment Scheduled Orders Name Type Priority Associated Diagnoses Orde r Schedule EXTERNAL EKG 2 TO 7 DAYS Holter Routine HFrEF (heart failure with reduced ejection fraction) (HCC) Ischemic cardiomyopathy Dizziness Near syncope Bradycardia Expected: 09/21/2023 (Approximate), Expires: 09/21/2024 Scheduled Procedures Name Priority Associated Diagnoses Date/Ti me ESOPHAGOGASTRODUODENOSCOPY ( EGD), FLEXIBLE, TRANSORAL, DIAGNOSTIC Recall 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 COLONOSCOPY FLEXIBLE PROXIMAL DIAGNOSTIC Recall History of colonic polyps Health Maintenance Due Date Last Done Comments DISCUSS TOBACCO CESSATION (REFER TO SMARTSET #9821) 1970 COVID-19 Vaccine (#1) 03/21/1970 Pneumococcal Vaccine: [...] Not on filedocumented as of this encounter Results * MAGNESIUM (09/21/2023 8:53 AM EST) Magnesium 2.3 1.5 - 2.6 mg/dL 09/21/2023 4:23 PM EST LABORATORY [facility] Blood Venous blood specimen / Unknown Venipuncture / Unknown 09/21/2023 8:53 AM EST 09/21/2023 8:53 AM EST Carmen Hutton PA-C LAB BLOOD [facility] [place] [address] [place] [address] * TSH WITH FREE T4 IF INDICATED (09/21/2023 8:53 AM EST) TSH 1.29 0.27 - 4.20 uIU/mL 09/21/2023 5:00 PM EST LABORATORY [facility] Blood Venous blood specimen / Unknown Venipuncture / Unknown 09/21/2023 8:53 AM EST 09/21/2023 8:53 AM EST Carmen Hutton PA-C LAB BLOOD [facility] Organization Address City/State/ZIP Co de Phone Number LABORATORY [facility] [place] [place] [address] [facility] [address] * (ABNORMAL) COMPREHENSIVE METABOLIC PANEL (09/21/2023 8:53 AM EST) BUN 12 6 - 20 mg/dL 09/21/2023 10:03 AM EST LABORATORY [place] [facility] Creatinine 1.3(H) 0.6 - 1.2 mg/dL 09/21/2023 10:03 AM EST LABORATORY [place] [facility] Estimated Glomerular Filtration Rate 67 >=60 mL/min 09/21/2023 10:03 AM EST LABORATORY [place] [facility] Comment:eGFR is calculated b ased on the CKD-EPI 2020 equation Sodium 140 135 - 146 mmol/L 09/21/2023 10:03 AM EST LABORATORY [place] [facility] Potassium 4.5 3.5 - 5.1 mmol/L 09/21/2023 10:03 AM EST LABORATORY [place] [facility] Chloride 103 98 - 107 mmol/L 09/21/2023 10:03 AM EST LABORATORY [place] [facility] CO2 28 22 - 32 mmol/L 09/21/2023 10:03 AM EST LABORATORY [place] [facility] Anion Gap 9 7 - 15 mmol/L 09/21/2023 10:03 AM EST LABORATORY [place] [facility] Glucose 88 70 - 120 mg/dL 09/21/2023 10:03 AM EST LAB[facility]ATORY [place] [facility] Albumin 4.4 3.8 - 5.0 g/dL 09/21/2023 10:03 AM EST LAB[facility]ATORY [place] [facility] AST 28 10 - 50 U/L 09/21/2023 10:03 AM EST LAB[facility]ATORY [place] [facility] Alkaline Phosphatase 68 35 - 130 U/L 09/21/2023 10:03 AM EST LAB[facility]ATORY [place] [facility] Bilirubin, Total 0.5 <=1.2 mg/dL 09/21/2023 10:03 AM EST LABORATORY [place] [facility] Calcium 9.7 8.4 - 10.2 mg/dL 09/21/2023 10:03 AM EST LABORATORY [place] [facility] Protein 6.6 6.0 - 8.3 g/dL 09/21/2023 10:03 AM EST LABORATORY [place] [facility] ALT 28 10 - 50 U/L 09/21/2023 10:03 AM EST LABORATORY [place] [facility] Blood Venous blood specimen / Unknown Venipuncture / Unknown 09/21/2023 8:53 AM EST 09/21/2023 8:53 AM EST Carmen Hutton PA-C LAB BLOOD [facility] LABORATORY [place] [address] [place] [address] * CBC (09/21/2023 8:53 AM EST) WBC 6.25 4.00 - 10.80 K/uL 09/21/2023 9:10 AM EST LABORATORY [place] [facility] RBC 4.85 4.50 - 5.25 M/uL 09/21/2023 9:10 AM EST LABORATORY [place] [facility] HGB 16.3 14.0 - 16.8 g/dL 09/21/2023 9:10 AM EST LABORATORY [place] [facility] HCT 47.2 40.0 - 48.4 % 09/21/2023 9:10 AM EST LABORATORY [place] [facility] MCV 97.3 82.0 - 99.5 fL 09/21/2023 9:10 AM EST LABORATORY [place] [facility] MCH 33.6 27.0 - 34.0 pg 09/21/2023 9:10 AM EST LABORATORY [place] [facility] MCHC 34.5 32.0 - 36.0 g/dL 09/21/2023 9:10 AM EST LABORATORY [place] [facility] RDW 12.3 11.5 - 15.5 % 09/21/2023 9:10 AM EST LABORATORY [place] [facility] PLT 222 140 - 400 K/uL 09/21/2023 9:10 AM EST [facility] [place] [facility] MPV 9.3 6.6 - 11.1 fL 09/21/2023 9:10 AM EST LABORATORY [place] [facility] Blood Venous blood specimen / Unknown Venipuncture / Unknown 09/21/2023 8:53 AM EST 09/21/2023 8:53 AM EST Carmen Hutton PA-C LAB BLOOD ORD[facility]al [facility]O Performing Organization Address [facility] Co de Phone Number [facility] [place] [facility] [place] [address] * EKG (09/21/2023 8:24 AM EST) 09/21/2023 8:24 AM EST Narrative Procedure Note Edu Sheth, DO - 09/21/2023 8:24 AM EST REASON FOR STUDY: dizziness CONCLUSIONS: Sinus bradycardia Possible Lateral infarct , age undetermined Inferior-posterior infarct (cited on or before 30-JUL-2023) Peaked t-waves may be consistent with hyperkalemia. Abnormal ECG When compared with ECG of 10-AUG-2023 14:23, Vent. rate has decreased BY 28 BPM Borderline criteria for Lateral infarct are now Present QT has shortened Ventricular Rate: 51 Atrial Rate: 51 AK Interval: 130 QRS Duration: 88 QT/QTc: 386/355 ms P-R-T [place]: 66 : -18 : -15 degrees Carmen Hutton PA-C EKG Performing Organization Address [facility] Co de Phone Number [facility] documented in this encounter Visit Diagnoses Diagnosis Dizziness- Primary Dizziness and giddiness HFrEF (heart failure with reduced ejection fraction) ([facility]) Ischemic cardiomyopathy Other specified forms of chronic ischemic heart disease Near syncope Syncope and collapse Bradycardia Other specified cardiac dysrhythmias NSVT (nonsustained ventricular tachycardia) ([facility]) Paroxysmal ventricular tachycardia 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 bill moore's slough heart with stable angina pectoris ([facility]) HFrEF (heart failure with reduced ejection fraction) ([facility]) Ischemic cardiomyopathy Other specified forms of chronic ischemic heart disease Dizziness Dizziness and giddiness documented in this encounter Advance Directives Latest Code Status on File Code Status Date Activated Date Inactivated Comments Full Code 08/14/2022 1:00 AM 08/17/2022 2:38 PM This order reflects the patients wishes and were consensually agreed upon. Question Answer Comments Discussion of Advance Directives occurred with: Patient Care Teams Embossing Machine Operator Helper Relationship Specialty Start Date End Date Wade Bragg MD [address] [place] [address] PCP - General Family Medicine 03/24/18 documented as of this encounter"
--- OUTSIDE RECORDS SUMMARY | 2023-10-22 08:00 | External Medical Summary | Summary of Care ---
Author Name Unknown Organization [facility] Address [address] [place] [address] Phone [phone] Care Team Providers Care Head Inspector Name Role Phone Wade Bragg MD Primary Care Provider [phone]- [phone] Reason for Visit * Reason Onset Date Comments Test Results Lab 09/16/2023 Reviewing ldl + trig increase Encounter Details Date Type Department Care Team (Late st Contact Info) Description 09/16/2023 Telephone [facility] [address] [place] [address] Wade rBagg MD [address] [place] [address] Test Results Lab (Reviewing ldl + trig inc... Allergies Active Allergy Reactions Criticality Noted Date Comments Isosorbide Nitrate 07/30/2023 Severe Mirgrains documented as of this encounter (statuses as of 09/17/2023) Medications Medication Sig Dispensed Refills Start Date [...] Hour (toPROL XL)Indications:Coron clark artery disease involving pilot point coronary artery of pilot point heart without angina pectoris,Ischemic cardiomyopathy,Dysli pidemia, goal LDL below 70,Tobacco use disorder Take 1 Tablet by mouth in the morning and 1 Tablet before bedtime. 180 Tablet 3 07/30/2023 Active Ezetimibe 10 MG Oral Tablet (Zetia)Indications:C oronary artery disease involving pilot point coronary artery of pilot point heart without angina pectoris,Dyslipidemi a, goal LDL below 130,Old ID (myocardial infarction) take 1 tablet by mouth every morning 90 Tablet 3 08/30/2023 Active Pantoprazole Sodium 40 MG Oral Tablet Delayed Release (Protonix) take 1 tablet by mouth every morning 90 Tablet 3 08/30/2023 Active Nitroglycerin 0.4 MG Sublingual Tablet Sublingual (Nitrostat)Indicatio ns:Coronary artery disease involving pilot point coronary artery of pilot point heart without angina pectoris place 1 tablet [...] as of this encounter (statuses as of 09/17/2023) Active Problems Problem Noted Date Diagnosed Date Ischemic cardiomyopathy 06/22/2023 NSVT (nonsustained ventricular tachycardia) 06/[address] elevation myocardial infarction (S ANT) 06/22/2023 HFrEF (heart failure with reduced ejection fract ion) 06/22/[address] elevation myocardial infarction (STEMI) 05/28/2023 S/P angioplasty with stent 05/28/2023 Gastroesophageal reflux dise ase with esophagitis without hemorrhage 12/16/2020 Old ID (myocardial infarction) 06/27/2018 Coronary artery disease invo lving pilot point coronary artery of pilot point heart without angina pectoris 06/27/2018 History of acute pancreatitis 06/27/2018 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 Dyslipidemia, goal LDL below 70 09/18/2013 Generalized anxiety disorder 03/09/2013 Tobacco use disorder 01/03/2013 documented as of this encounter (statuses as of 09/17/2023) Resolved Problems Problem Noted Date Diagnosed Date [...] as of this encounter (statuses as of 09/17/2023) Immunizations Name Administration Dates Next Due Hepatitis B, 20+ yrs 08/24/2011,04/09/2011,03/05 PPD 08/10/2014 SEASONAL INFLUENZA, PF, 6 M & Above, IM , (FLULAVAL or FLUZONE) 08/17/2022(Deferred: Patient Refused) TDAP (age 11 and [...] Notes * Telephone Encounter - Augustina Iraheta, [facility] - 09/16/2023 9:42 AM EST Unable to reach patient at this time. Left message on the answering machine requesting callback regarding lipid panel results. Advised patient to please call [phone]. Please transfer him back tomyself. If I'm not available, transfer to next available [facility]. Patient did have OV on 09/14 - [...] Clinical Pharmacy Services ([facility]) 09/16/23 9:43 AM [phone] documented in this encounter Plan of Treatment Upcoming Encounters Date Type Department Care Team (Late st Contact Info) Description 09/21/2023 8:00 AM EST Office Visit Cardiology, [facility] [address] [place] [address] Carmen Hutton PA-C [address] [place] [address] Scheduled Procedures Name Priority Associated Diagnoses Date/Ti me ESOPHAGOGASTRODUODENOSCOPY ( EGD), FLEXIBLE, TRANSORAL, DIAGNOSTIC Recall 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 COLONOSCOPY FLEXIBLE PROXIMAL DIAGNOSTIC Recall History of colonic polyps Health Maintenance Due Date Last Done Comments DISCUSS TOBACCO CESSATION (REFER TO SMARTSET #2702) 1970 COVID-19 Vaccine (#1) 03/21/1970 Pneumococcal Vaccine: [...] Advance Directives occurred with: Patient Care Teams Head Inspector Relationship Specialty Start Date End Date Wade Bragg MD [address] [place] [address] PCP - General Family Medicine 03/24/18 documented as of this encounter
--- OUTSIDE RECORDS SUMMARY | 2023-10-22 08:00 | External Medical Summary ---
Author Name Unknown Address Unknown Organization [id number]:[facility] [address] [place] [address] Laboratory Report Ordering Provider Test Date Status MYRIAM FARNSWORTH 09/21/2023 08:53:52 Final Observation Date Value Abnormality Reference (Units ) Status WBC, Total 09/21/2023 08:53:52 6.25 4.00-10.8 0 (K/uL) Final RBC 09/21/2023 08:53:52 4.85 4.50-5.25 (M/uL) Final Hemoglobin 09/21/2023 08:53:52 16.3 14.0-16.8 (g/dL) Final HCT 09/21/2023 08:53:52 47.2 40.0-48.4 (%) Final MCV 09/21/2023 08:53:52 97.3 82.0-99.5 (fL) Final MCH 09/21/2023 08:53:52 33.6 27.0-34.0 (pg) Final MCHC 09/21/2023 08:53:52 34.5 32.0-36.0 (g/dL) Final RDW 09/21/2023 08:53:52 12.3 11.5-15.5 (%) Final Platelets 09/21/2023 08:53:52 222 140-400 (K /uL) Final MPV 09/21/2023 08:53:52 9.3 6.6-11.1 ( fL) Final Performing Location [facility] [address] [place] [address]
--- OUTSIDE RECORDS SUMMARY | 2023-10-22 08:00 | External Medical Summary | Summary of Care ---
Author Name Unknown Organization [facility] Address [address] [place] [address] Phone [phone] Care Team Providers Care In Service Education Teacher Name Role Phone Ubaldo Falk MD Primary Care Provider [phone] Reason for Visit * Reason Comments eRx-Medication Refill Encounter Details Date Type Department Care Team (Late st Contact Info) Description 08/28/2023 Refill [facility] [address] [place] [address] Ubaldo Falk MD [address] [place] [address] Encounter for long-term (current) use of other medications*; Generalized anxiety disorder; Coronary artery disease involving quileute coronary artery of quileute heart without angina pectoris; Dyslipidemia, goal LDL below 130; Old NH (myocardial infarction); 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; Gastroesophageal reflux disease without esophagitis Allergies Active Allergy Reactions Criticality Noted Date Comments Isosorbide Nitrate 07/30/2023 Severe Mirgrains documented as of this encounter (statuses as of 08/30/2023) Medications Medication Sig Dispensed Refills Start Date End Date Status Aspirin 81 MG Oral Tablet Delayed Release (Aspirin Low Dose) Take by mouth 1 Tablet in the morning. In the morning.. 90 Tablet 3 08/06/2022 Active Rosuvastatin Calcium 40 MG Oral Tablet (Crestor) Take by mouth 1 Tablet in the morning. 90 Tablet 3 08/06/2022 Active Brilinta 90 MG Oral TabletIndications :NSTEMI (non-ST [...] Hour (toPROL XL)Indications:Co ronary artery disease involving quileute coronary artery of quileute heart without angina pectoris,Ischemic cardiomyopathy,Dy slipidemia, goal LDL below 70,Tobacco use disorder Take 1 Tablet by mouth in the morning and 1 Tablet before bedtime. 180 Tablet 3 07/30/2023 Active Sertraline HCl 50 MG Oral Tablet (Zoloft)Indicatio ns:Generalized anxiety disorder take 1 tablet by mouth every morning 90 Tablet 3 08/30/2023 Active Ezetimibe 10 MG Oral Tablet (Zetia)Indication s:Coronary artery disease involving quile[place] coronary artery of quileute heart without angina pectoris,Dyslipid emia, goal LDL below 130,Old NH (myocardial infarction) take 1 tablet by mouth every morning 90 Tablet 3 08/30/2023 Active Pantoprazole Sodium 40 MG Oral Tablet Delayed Release (Protonix) take 1 tablet by mouth every morning 90 Tablet 3 08/30/2023 Active Nitroglycerin 0.4 MG Sublingual Tablet Sublingual (Nitrostat)Indica tions:Coronary artery disease involving quileute coronary artery of quileute heart without angina pectoris place 1 tablet [...] BEFORE BEDTIME 90 Tablet 3 08/30/2023 Active Sertraline HCl 50 MG Oral Tablet (Zoloft)Indicatio ns:Generalized anxiety disorder Take by mouth 1 Tablet in the morning. 90 Tablet 3 08/06/2022 3 Discontinued Nitroglycerin 0.4 MG Sublingual Tablet Sublingual (Nitrostat)Indica tions:Coronary artery disease involving quileute coronary artery of quileute heart without angina pectoris Place under the tongue 1 Tablet every 5 minutes as needed for Pain, Chest. up to 3 doses in 15 minutes 25 Tablet 11 08/06/2022 3 Discontinued Famotidine 40 MG Oral Tablet (Pepcid)Indicatio ns: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,Gastroe sophageal reflux disease without esophagitis Take by mouth 1 Tablet before bedtime. 90 Tablet 3 08/06/2022 3 Discontinued Ezetimibe 10 MG Oral Tablet (Zetia)Indication s:Coronary artery disease involving quileute coronary artery of quileute heart without angina pectoris,Dyslipid emia, goal LDL below 130,Old NH (myocardial infarction) Take by mouth 1 Tablet in the morning. 90 Tablet 3 08/06/2022 3 Discontinued Magnesium Oxide 400 MG Oral Tablet Take by mouth 1 Tablet in the morning. 90 Tablet 3 08/06/2022 3 Discontinued Pantoprazole Sodium 40 MG Oral Tablet Delayed Release (Protonix) Take by mouth 1 Tablet in the morning. 90 Tablet 3 08/06/2022 3 Discontinued Hospital, Clinic, or Other Facility Administered Medication Ordered Dose Route Frequency Start Date End Date Status albuterol sulfate (PROVENTIL) (2.5 MG/3ML) 0.083% inhalation solution 2.5 mgIndications:SOB (shortness of breath) 2.5 mg NEBULIZER Q4H PRN 03/02/2019 Act rolanda documented as of this encounter (statuses as of 08/30/2023) Active Problems Problem Noted Date Diagnosed Date Ischemic cardiomyopathy 06/22/2023 NSVT (nonsustained ventricular tachycardia) 06/[address] elevation myocardial infarction (S ANT) 06/22/2023 HFrEF (heart failure with reduced ejection fract ion) 06/22/[address] elevation myocardial infarction (STEMI) 05/28/2023 S/P angioplasty with stent 05/28/2023 Gastroesophageal reflux dise ase with esophagitis without hemorrhage 12/16/2020 Old NH (myocardial infarction) 06/27/2018 Coronary artery disease invo lving quileute coronary artery of quileute heart without angina pectoris 06/27/2018 History of acute pancreatitis 06/27/2018 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 Dyslipidemia, goal LDL below 70 09/18/2013 Generalized anxiety disorder 03/09/2013 Tobacco use disorder 01/03/2013 documented as of this encounter (statuses as of 08/30/2023) Resolved Problems Problem Noted Date Diagnosed Date [...] as of this encounter (statuses as of 08/30/2023) Immunizations Name Administration Dates Next Due Hepatitis [...] encounter Miscellaneous Notes * Telephone Encounter - Ubaldo Falk MD - 08/30/2023 12:57 PM ESTSigned Prescriptions: Disp Refills Sertraline HCl 50 MG Oral Tablet (Zoloft) 90 Tab*3 Sig: take 1 tablet by mouth every morningAuthorizing Provider: UBALDO FALK User: STEF MCELROY Ezetimibe 10 MG Oral Tablet (Zetia) 90 Tab*3 Sig: take 1 tablet by mouth every morningAuthorizing Provider: UBALDO FALK User: STEF MCELROY Pantoprazole Sodium 40 MG Oral Tablet Sophia*90 Tab*3 Sig: take 1 tablet by mouth every morningAuthorizing Provider: UBALDO FALK User: STEF MCELROY Nitroglycerin 0.4 MG Sublingual Tablet Sub*25 Tab*11 Sig: place 1 tablet under the tongue if needed every 5 minutes for chest pain for 3 doses IF NO RELIEF AFTER THIRD DOSE CALL 911.Authorizing Provider: UBALDO FALK User: STEF MCELROY Magnesium Oxide (Antacid) 400 MG Oral Tabl*90 Tab*3 Sig: take 1 tablet by mouth IN THE MORNINGAuthorizing Provider: UBALDO FALK Famotidine 40 MG Oral Tablet (Pepcid) 90 Tab*3 Sig: take 1 tablet by mouthBEFORE BEDTIMEAuthorizing Provider: UBALDO FALK User: STEF MCELROY * Telephone Encounter - Stef Mcelroy, [facility] - 08/30/2023 9:20 AM EST Pending Prescriptions: Disp Refills Magnesium Oxide (Antacid) 400 MG Oral Tabl*90 Tab*3 Sig: take 1 tablet by mouth IN THE MORNING Signed Prescriptions: Disp Refills Sertraline HCl 50 MG Oral Tablet (Zoloft) 90 Tab*3 Sig: take 1 tablet by mouth every morning Authorizing Provider: UBALDO FALK Ordering User: STEF MCELROY Ezetimi be 10 MG Oral Tablet (Zetia) 90 Tab*3 Sig: take 1 tablet by mouth every morning Authorizing Provider: UBALDO FALK Ordering User: STEF MCELROY Pantoprazole Sodium 40 MG Oral Tablet Sophia*90 Tab*3 Sig: take 1 tablet by mouth every morning Authorizing Provider: UBALDO FALK Ordering User: STEF MCELROY Nitroglycerin 0.4 MG Sublingual Tablet Sub*25 Tab*11 Si g: place 1 tablet under the tongue if needed every 5 minutes for chest pain for 3 doses IF NO RELIEF AFTER THIRD DOSE CALL 911. Authorizing Provider: UBALDO FALK Ordering User: STEF MCELROY Famotidine 40 MG Oral Tablet (Pepcid) 90 Tab*3 Sig: take 1 tablet by mouth BEFORE BEDTIME Authorizing Provider: UBALDO FALK Ordering User: STEF MCELROY ---- * Telephone Encounter - Stef Mcelroy [facility] - 08/30/2023 9:13 AM EST [facility] is currently not authorized to approve refills for the pended medication(s) per refill protocol. Please approve if appropriate. Patient on PPI. Ordered Vit B12 to be completed with next routine labs. Thank you, Stef Mcelroy, PharmD Clinical Pharmacist Centralized Clinical Pharmacy Services ([facility]) 08/30/23 9:18 AM [phone] documented in this encounter Plan of Treatment Upcoming Encounters Date Type Department Care Team (Late st Contact Info) Description 09/14/2023 4:00 PM EST Office Visit [facility] [address] [place] [id number] Ubaldo Falk MD [address] [place] [address] 09/21/2023 8:00 AM EST Office Visit Cardiology, [facility] [address] [address] Carmen Hutton PA-C [address] [place] [address] Scheduled Orders Name Type Priority Associated Diagnoses Orde r Schedule VITAMIN B12 Lab Routine Encounter for long-term (current) use of other medications Expected: 08/30/2023 (Approximate), Expires: 08/30/2024 Scheduled Procedures Name Priority Associated Diagnoses Date/Ti [...] as of this encounter Visit Diagnoses Diagnosis Encounter for long-term (current) use of other medications- Primary Generalized anxiety disorder Coronary artery disease involving quileute coronary artery of quileute heart without angina pectoris Dyslipidemia, goal LDL below 130 Other and unspecified hyperlipidemia Old NH (myocardial infarction) Old myocardial infarction 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 Casanova's esophagus Gastroesophageal reflux disease without esophagitis Esophageal reflux documented in this encounter Advance Directives Latest Code Status on File Code Status Date Activated Date Inactivated Comments Full Code 08/14/2022 1:00 AM 08/17/2022 2:38 PM This order reflects the patients wishes and were consensually agreed upon. Question Answer Comments Discussion of Advance Directives occurred with: Patient Care Teams In Service Education Teacher Relationship Specialty Start Date End Date Ubaldo Falk MD [address] [place] [address] PCP - General Family Medicine 03/24/18 documented as of this encounter
--- OUTSIDE RECORDS SUMMARY | 2023-10-22 08:00 | External Medical Summary ---
Author Name Unknown Address Unknown Organization K01:[facility] - [address] [facility] [place] [place] [address] Laboratory Report Ordering Provider Test Date Status SALLY VALLERNE 09/08/2023 16:02:25 Final Observation Date Value Abnormality Reference (Units ) Status Triglyceride 09/08/2023 16:02:25 165 <=174 ( mg/dL) Final Triglyceride Reference Range s (mg/dL):
<150 Acceptable
150-174 Borderline high
175-499 High
>=500 Very high Cholesterol 09/08/2023 16:02:25 197 <200 (mg /dL) Final Total Cholesterol Reference Ranges (mg/dL):
<200 Desirable
200-239 Borderline high
>=240 High HDL 09/08/2023 16:02:25 46 >39 (mg/dL ) Final HDL Cholesterol Reference Ra nges (mg/dL):
>=60 High (Desirable)
<50 Low (Undesirable) For Females
<40 Low (Undesirable) For Males NON-HDL CHOLESTEROL 09/08/2023 16:02:25 151 <=159 (mg/dL) Final Non-HDL Cholesterol Referenc e Range (mg/dL):
<100 Target level for high risk ASCVD patient
<130 Optimal for general population
130-159 Near optimal for general population
160-189 Borderline High
190-219 High
>=220 Very High LDL, (calculated) 09/08/2023 16:02:25 118 <= 129 (mg/dL) Final LDL Cholesterol Reference Ra nges (mg/dL):
<70 Target level for high risk ASCVD patient
<100 Optimal for general population
100-129 Near optimal for general population
130-159 Borderline high
160-189 High
>=190 Very high Performing Location [facility] - [address] [facility] [address]
--- OUTSIDE RECORDS SUMMARY | 2023-10-22 08:00 | External Medical Summary | Summary of Care ---
Author Name Unknown Organization [facility] Address [address] [place] [address] Phone [phone] Care Team Providers Care Attending Physician Name Role Phone Wade Bragg MD Primary Care Provider [phone]- [phone] Reason for Visit * Reason Onset Date Comments Test Results Lab 09/16/2023 Reviewing ldl + trig increase Encounter Details Date Type Department Care Team (Late st Contact Info) Description 09/16/2023 Telephone [facility] [address] [place] [address] Wade Bragg MD [address] [place] [address] Test Results Lab (Reviewing ldl + trig inc... Allergies Active Allergy Reactions Criticality Noted Date Comments Isosorbide Nitrate 07/30/2023 Severe Mirgrains documented as of this encounter (statuses as of 09/16/2023) Medications Medication Sig Dispensed Refills Start Date [...] Hour (toPROL XL)Indications:Coron clark artery disease involving [place] coronary artery of [place] heart without angina pectoris,Ischemic cardiomyopathy,Dysli pidemia, goal LDL below 70,Tobacco use disorder Take 1 Tablet by mouth in the morning and 1 Tablet before bedtime. 180 Tablet 3 07/30/2023 Active Ezetimibe 10 MG Oral Tablet (Zetia)Indications:C oronary artery disease involving mus[place]og[place] coronary artery of mus[place] heart without angina pectoris,Dyslipidemi a, goal LDL below 130,Old [place] (myocardial infarction) take 1 tablet by mouth every morning 90 Tablet 3 08/30/2023 Active Pantoprazole Sodium 40 MG Oral Tablet Delayed Release (Protonix) take 1 tablet by mouth every morning 90 Tablet 3 08/30/2023 Active Nitroglycerin 0.4 MG Sublingual Tablet Sublingual (Nitrostat)Indicatio ns:Coronary artery disease involving muscog[place] coronary artery of mus[place] heart without angina pectoris place 1 tablet [...] as of this encounter (statuses as of 09/16/2023) Active Problems Problem Noted Date Diagnosed Date Ischemic cardiomyopathy 06/22/2023 NSVT (nonsustained ventricular tachycardia) 06/[address] elevation myocardial infarction (S ANT) 06/22/2023 HFrEF (heart failure with reduced ejection fract ion) 06/22/[address] elevation myocardial infarction (STEMI) 05/28/2023 S/P angioplasty with stent 05/28/2023 Gastroesophageal reflux dise ase with esophagitis without hemorrhage 12/16/2020 Old [place] (myocardial infarction) 06/27/2018 Coronary artery disease invo lving muscogee coronary artery of mus[place]ogee heart without angina pectoris 06/27/2018 History of acute pancreatitis 06/27/2018 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 Left message on the answering machine requesting callback regarding lipid panel results. Advised patient to please call [phone]. Please transfer him back tomyself. If I'm not available, transfer to next available [facility]. Patient did have OV on 09/14 [...] Clinical Pharmacy Services ([facility]) 09/16/23 9:43 AM [phone] documented in this encounter Plan of Treatment Upcoming Encounters Date Type Department Care Team (Late st Contact Info) Description 09/21/2023 8:00 AM EST Office Visit Cardiology, [facility] [address] [place] [address] Carmen Hutton PA-C [address] [place] [address] Scheduled Procedures Name Priority Associated Diagnoses Date/Ti me ESOPHAGOGASTRODUODENOSCOPY ( EGD), FLEXIBLE, TRANSORAL, DIAGNOSTIC Recall 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 COLONOSCOPY FLEXIBLE PROXIMAL DIAGNOSTIC Recall History of colonic polyps Health Maintenance Due Date Last Done Comments DISCUSS TOBACCO CESSATION (REFER TO SMARTSET #9680) 1970 COVID-19 Vaccine (#1) 03/21/1970 Pneumococcal Vaccine: [...] Advance Directives occurred with: Patient Care Teams Attending Physician Relationship Specialty Start Date End Date Wade Bragg MD [address] [place] [address] PCP - General Family Medicine 03/24/18 documented as of this encounter
--- OUTSIDE RECORDS SUMMARY | 2023-10-22 08:00 | External Medical Summary | Summary of Care ---
Author Name Unknown Organization [facility] Address [address] [place] [address] Phone [phone] Care Team Providers Care Doorshaker Name Role Phone Wade Bragg MD Primary Care Provider [phone] Reason for Visit * Auth/Cert Specialty Diagnoses / Procedures Referred By Contac t Referred To Contact Diagnoses CAD (coronary artery disease) Cardiomyopathy (HCC) CAD (coronary artery disease) [I25.10] Cardiomyopathy (HCC) [I42.9] Procedures CORONARY ANGIOGRAPHY W/LEFT HEART CATH CORONARY ANGIOGRAPHY W/LEFT HEART CATH Referral ID Status Reason Start Date Expiration Date Visits Re quested Visits Authorized [id number] Encounter Details Date Type Department Care Team (Latest Contact Info) Description 08/10/2023 8:06 AM EDT - 08/10/2023 6:57 PM EDT Hospital Encounter CRS Waiting [facility], Cardiac Recovery Suite Waiting Unit, [address] [place] [address] Pat Monroy MD [address] [place] [address] Discharge Disposition: Home - Self Care Allergies Active Allergy Reactions Criticality Noted Date Comments Isosorbide Nitrate 07/30/2023 Severe Mirgrains documented as of this encounter (statuses as of 08/11/2023) Medications Medication Sig Dispensed Refills Start Date End Date Status Aspirin 81 MG Oral Tablet Delayed Release (Aspirin Low Dose) Take by mouth 1 Tablet in the morning. In the morning.. 90 Tablet 3 08/06/2022 Active Sertraline HCl 50 MG Oral Tablet (Zoloft)Indications: Generalized anxiety disorder Take by mouth 1 Tablet in the morning. 90 Tablet 3 08/06/2022 Active Nitroglycerin 0.4 MG Sublingual Tablet Sublingual (Nitrostat)Indicatio ns:Coronary artery disease involving noatak coronary artery of noatak heart without angina pectoris Place under the tongue 1 Tablet every 5 minutes as needed for Pain, Chest. 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 90 Tablet 3 08/06/2022 Active Ezetimibe 10 MG Oral Tablet (Zetia)Indications:C oronary artery disease involving [place]atak coronary artery of [place] heart without angina pectoris,Dyslipidemi a, goal LDL below 130,Old NV (myocardial infarction) Take by mouth 1 Tablet in the morning. 90 Tablet 3 08/06/2022 Active Magnesium Oxide 400 MG Oral Tablet Take by mouth 1 Tablet in the morning. 90 Tablet 3 08/06/2022 Active Pantoprazole Sodium 40 MG Oral Tablet Delayed Release (Protonix) Take by mouth 1 Tablet in the morning. 90 Tablet 3 08/06/2022 Active Rosuvastatin Calcium 40 MG Oral Tablet (Crestor) Take by mouth 1 Tablet in the morning. 90 Tablet 3 08/06/2022 Active Brilinta 90 MG Oral TabletIndications:NS ANT (non-ST [...] Hour (toPROL XL)Indications:Coron clark artery disease involving noatak coronary artery of noatak heart without angina pectoris,Ischemic cardiomyopathy,Dysli pidemia, goal LDL below 70,Tobacco use disorder Take 1 Tablet by mouth in the morning and 1 Tablet before bedtime. 180 Tablet 3 07/30/2023 Active documented as of this encounter (statuses as of 08/11/2023) Active Problems Problem Noted Date Diagnosed Date Ischemic cardiomyopathy 06/22/2023 NSVT (nonsustained ventricular tachycardia) 06/[address] elevation myocardial infarction (S ANT) 06/22/2023 HFrEF (heart failure with reduced ejection fract ion) 06/22/[address] elevation myocardial infarction (STEMI) 05/28/2023 S/P angioplasty with stent 05/28/2023 Gastroesophageal reflux dise ase with esophagitis without hemorrhage 12/16/2020 Old NV (myocardial infarction) 06/27/2018 Coronary artery disease invo lving noatak coronary artery of noatak heart without angina pectoris 06/27/2018 History of acute pancreatitis 06/27/2018 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 Dyslipidemia, goal LDL below 70 09/18/2013 Generalized anxiety disorder 03/09/2013 Tobacco use disorder 01/03/2013 documented as of this encounter (statuses as of 08/11/2023) Resolved Problems Problem Noted Date Diagnosed Date [...] as of this encounter (statuses as of 08/11/2023) Immunizations Name Administration Dates Next Due Hepatitis [...] Sign Reading Time Taken Comments Blood Pressure 123/85 08/10/2023 4:35 PM EDT Pulse 51 08/10/2023 4:35 PM EDT Temperature 36.3 C (97.3 F) 08/10/2023 11:04 AM E DT Respiratory Rate 19 08/10/2023 4:35 PM EDT Oxygen Saturation 98% 08/10/2023 4:35 PM EDT Inhaled Oxygen Concentration - - Weight 57.6 kg (127 lb) 08/10/2023 9:04 AM EDT Height 165.1 cm (5' 5") 08/10/2023 9:04 AM EDT Body Mass Index 21.13 08/10/2023 9:04 AM EDT documented in this encounter Discharge Instructions * Discharge Instr - AVS* Amandeep Mcpherson CRNP - 08/10/2023 10:33 AM EDT CARDIAC RECOVERY SUITE Discharge Date: 08/10/2023 Check your Patient Education Brochure for further information. Please contact your physician, Dr. Monroy of the Department of Cardiology at [phone], during business hours for any questions or test results. For after-hour emergencies call [phone] and have your doctor paged. Scheduling Services is available daily between the hours of 8:00 a.m and 9:00 p.m. by calling . The information below provides you with the instructions and the list of medications you need to betaking following discharge from the hospital. If you have any questions, please ask before leaving.Please carry this letter with you when you see your doctor in the clinic. If you have questions, you can reach us at the numbers above. Diet: heart healthy diet, 2 gram sodium diet Progress to prescribed diet as tolerated. If nausea should occur, have clear liquids only until soft foods can be tolerated. Activity: No strenuous activity for 7 days A responsible adult must be with the patient for 24 hours after surgery. Rest today and tomorrow, and then increase activity as tolerated. DO NOT operate any appliances and/or machinery or sign legal documents for 24 hours. You may resumedriving in 48 hours. Special Instructions: Leg Puncture Site Care You may shower, but do not take any baths, go in a hot tub or swim for 7 days. The hole in your leg artery is still healing and may be sore for a week. You may develop a large bruise, which will travel down your leg over the next few weeks. This is normal. If you have sudden pain or swelling or bleeding, call 911 and hold pressure on the area. If you notice worsening pain or swelling in the area that is not relieved by Tylenol or if you develop a fever over 101 degrees F you should call your bottomer operator. If you have questions or are concerned about how your leg is healing, call the doctor who did the procedure or . Keep the site covered with a dry bandage for 24 hours then remove the bandage. You may keep the site covered until it has completely healed but it is not necessary. If you replace the bandage, it should be changed every 24 hours or if it becomes wet. Date you may return to work or school: 08/17/2023 See your primary care physician (Wade Bragg MD) 09/14/2023. See your bottomer operator (Carmen Hutton PA-C) 09/21/2023 documented in this encounter H&P Notes * Amandeep Mcpherson CRNP - 08/10/2023 9:28 AM EDT HISTORY & PHYSICAL INTERVAL NOTE - Cardiology Service [address] [address] History and Physical Update: Name: Oc Cazares Location: CATH/Cath Date: 08/10/2023 Time: 9:28 AM DATE OF HISTORY AND PHYSICAL: 07/30/2023 REFERRED BY: Trisha MCCLENDON Chief Complaint: Chest Pain I have reviewed the H&P previously performed and examined the patient today. There are no new findings noted. Physical Examination: BP: 132 mmHg/89 mmHg (08/10/23906) Pulse: 52 (08/10/23906) Temp: 36.5 C (08/10/23906) Resp: 20 (08/10/23906) SpO2: 100 % (08/10/23906) Cardiac: normal rate and rhythm, no murmur, gallops or rub Lungs: normal respiratory effort, lungs clear to auscultation and percussion, breath sounds normal Right Radial pulse 1+ Allens test normal Right Femoral pulse 1+ Right Femoral Bruit no IV Contrast Allergy: no Contraindications to dual anti-platelet therapy: No History of anemia: No ASA: Received typical daily dose Anticoagulation: No Labs reviewed as indicated below: 07/30/23 14:18 Sodium 139 Potassium 3.9 Chloride 103 CO2 23 BUN 11 Creatinine 1.2 Estimated Glomerular Filtration Rate 76 Anion Gap 13 Glucose 88 Calcium 9.3 Protein 6.7 INR 0.9 Prothrombin Time 12.6 aPTT 28 CBC Rpt CBC WITH WBC DIFFERENTIAL Rpt WBC 6.34 HGB 14.6 HCT 42.4 MCV 98.6 PLT 249 Absolute Neutrophils 3.61 Absolute Lymphocytes 2.12 Absolute Monocytes 0.44 Absolute Eosinophils 0.14 Absolute Basophils 0.03 Albumin 4.4 AST 33 ALT 41 Alkaline Phosphatase 85 Bilirubin, Total 0.3 Bilirubin, Direct <0.2 HAKAN Carrillo * Erin Gruber CRNP - 08/09/2023 9:07 AM EDT Images from the original note were not included. The note below has been copied and pasted from office visit with Trisha Chapa on 07/30/2023 Cardiology Outpatient Visit 07/30/2023 Primary Self Contained Behavior Unit Teacher: Dr. Tamez Past medical history: Premature CAD Coronary artery disease status post PCI to the RCA in the setting of a fan-FP-pdrmtit elevation NV. Inferior STEMI/100% acute distal circumflex occlusion at [...] with an FFR of 0.85. LVEF 25% Ischemic cardiomyopathy, 25% 05/2023, 35-40% per echo 07/09/2023 History of non sustained VT Hx of PAF Ongoing tobacco abuse. Anxiety. HPI Very pleasant medically complex 52-year-old male with history of premature coronary disease undergoing multiple coronary interventions. Most recently in May patient has suffered a STEMI with thrombosis 2 prior stents as stated above under problem list. LVEF was severely reduced at 25% Re-presented to [facility] Emergency Department at the end of June with recurrent chest discomfort. 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 During the hospitalization, patient was monitored on telemetry. High sensitive troponin was not significantly elevated. Imdur was added for pain control; patient reported resolution of the chest pain. Telemetry did not show any significant events during the hospitalization. During hospitalization he did have epigastric discomfort and was treated for chronic pancreatitis with IV fluids and pain control. Re-presented to the emergency department on 07/27 with substernal chest discomfort and shortness ofbreath. Symptoms improved with DuoNeb treatment and IV Pepcid. High sensitivity troponins were mildly elevated but flat. Patient was discharged same day. Today the patient presents with ongoing concerns regarding exertional chest discomfort and shortness of breath. Has not been taking the Imdur due to severe migraines with this medication. Shortness of breath persists but he does not appear volume overloaded. Notes the use of albuterol inhalers and nebulizers improve his shortness of breath. Denies lower extremity edema. No orthopnea. Blood pressures are improving, today in office 128/78. EKG showing sinus rhythm with PVCs, 65 beats per minute. No fever, chills, cough, hematochezia, melena, or hemoptysis. Patient is compliant with all medications, and offers no side effects. Patient quit smoking proximally 2-3 weeks ago. Current Outpatient Medications Medication Sig Dispense Refill Aspirin 81 MG Oral Tablet Delayed Release (Aspirin Low Dose) Take by mouth 1 Tablet in the morning.In the morning.. 90 Tablet 3 Sertraline HCl 50 MG Oral Tablet (Zoloft) Take by mouth 1 Tablet in the morning. 90 Tablet 3 Famotidine 40 MG Oral Tablet (Pepcid) Take by mouth 1 Tablet before bedtime. 90 Tablet 3 Ezetimibe 10 MG Oral Tablet (Zetia) Take by mouth 1 Tablet in the morning. 90 Tablet 3 Magnesium Oxide 400 MG Oral Tablet Take by mouth 1 Tablet in the morning. 90 Tablet 3 Pantoprazole Sodium 40 MG Oral Tablet Delayed Release (Protonix) Take by mouth 1 Tablet in the morning. 90 Tablet 3 Rosuvastatin Calcium 40 MG Oral Tablet (Crestor) Take by mouth 1 Tablet in the morning. 90 Tablet 3 Brilinta 90 MG Oral Tablet Take 1 [...] 1 Tablet before bedtime. 180 Tablet 3 Nitroglycerin 0.4 MG Sublingual Tablet Sublingual (Nitrostat) Place under the tongue 1 Tablet every5 minutes as needed for Pain, Chest. up to 3 doses in 15 minutes 25 Tablet 11 Current Facility-Administered Medications Medication Dose Route Frequency Provider Last Rate Last Admin albuterol sulfate (PROVENTIL) (2.5 MG/3ML) 0.083% inhalation solution 2.5 mg 2.5 mg Nebulizer Q4H PRN Shant Raymond MD 2.5 mg at 03/08/19 1429 Past Medical History: Diagnosis Date Anxiety 2011 Casanova esophagus 2015 Depression 2011 1 week in [facility], was on Zoloft Dyslipidemia, goal LDL below 130 INFORMATION 07/2014 10 year risk 19% INFORMATION 09/2015 10 year cardiovascular risk of 21% INFORMATION 05/2017 10 year cardiovascular risk 18.5% Past Surgical History: Procedure Laterality Date COLONOSCOPY, DIAGNOSTIC (RECTUM) 05/06/2020 internal hemorrhoids/biopsies show adenomatous polyps/recall 5 years/COLONOSCOPY FLEXIBLE PROXIMAL DIAGNOSTIC performed by Kike Gross DO at ENDOSCOPY [facility] EGD, FLEXIBLE, DIAGNOSTIC 12/25/2016 Barret[place], repeat 3 yrs/ESOPHAGOGASTRODUODENOSCOPY (EGD), FLEXIBLE, TRANSORAL, DIAGNOSTIC performed by Kike Gross DO at ENDOSCOPY [facility] EGD, FLEXIBLE, DIAGNOSTIC 05/06/2020 medium sized hiatal hernia/gastritis/biopsies confirm barretts/recall 3 years/ESOPHAGOGASTRODUODENOSCOPY (EGD), FLEXIBLE, TRANSORAL, DIAGNOSTIC performed by Kike Gross DO at ENDOSCOPY [facility] EGD, FLEXIBLE, DIAGNOSTIC N/A 08/22/2021 [facility], EGD, Esophageal mucosal changes suspicious for Casanova's esopahgaus state C4-M5, gastritis, duodentitis / biopsies evid of infection know as Casanova's esophagitis/ 1 year recall EGD, FLEXIBLE, DIAGNOSTIC 09/23/2021 [place]ret[place], pancreatic stent removed, repeat 3 yrs / [facility] EGD, W/ENDOSCOPIC US 10/18/2015 Barretts, repeat 1 yr/[facility] ERCP N/A 08/22/2021 [facility], ERCP, major papilla located partially within diverticulum, Choledocholithiasis found, 1 biliary stent placed / no specimens collected / repeat in 6 week to remove stent ERCP 09/23/2021 Choledocholithiasis / [facility] US ENDOSCOPIC N/A 08/22/2021 [facility], EUS dilation common bile duct up to 7mm, 1 stone in common bile duct, many stones in gallbladder, Pancreatic parenchymal abnormalitis, 1 benign lymph node in annie hepatis region / no specimenscollected / VASECTOMY 02/23/2003 Social History Tobacco Use Smoking status: Every Day Packs/day: 0.25 Years: 31.00 Pack years: 7.75 Types: Cigarettes Passive exposure: Current Smokeless tobacco: Never Tobacco comments: 2-3 cig/day as of 12/23/20 Vaping Use Vaping Use: Never used Substance Use Topics Alcohol use: Not Currently Comment: last 2015 Drug use: No Comment: pepsi- 6 pack per day Review of patient's allergies indicates: Allergen Reactions Imdur [Isosorbide Nitrate] Severe Mirgrains Review of Systems: See HPI for pertinent positives. All others negative, other than those noted in HPI. Physical Exam BP 128/78 | Pulse 72 | Wt 57.6 kg (127 lb) | SpO2 97% | BMI 21.16 kg/m | BSA 1.62 m General: No acute distress. A+Ox3. HEENT: Normocephalic. [...] deficits. PSYCH: Normal. Lab data/imaging study review: Echo at [facility] 07/09/2023 Echo 05/20/2023 Impression/Plan: 1. Coronary artery disease involving noatak coronary artery of [place]atak heart without angina pectoris 2. Ischemic cardiomyopathy -Medically complex 52 year old male with history of premature CAD with multiple coronary interventions as described above-- recent STEMI with acute ischemic cardiomyopathy with LVEF initially 25%, but most recently 35-40% per echo 06/2023 -Ongoing concerns with exertional chest pain and shortness of breath. -EKG showing sinus rhythm with PVCs, lateral and inferior/posterior infarct, 65 beats per minute. 1. Continue DAPT with Aspirin and Brillinta. 2. Continue goal-directed medical therapy: Increase metoprolol succinate to 25 mg twice daily. Continue spironolactone 12.5 mg daily. Note currently on ACEi/ARB 4. Patient appears euvolemic on exam. Should patient require diuretic therapy would recommend cautious use due to history of chronic pancreatitis. 5. Intolerant to Imdur due to severe migraines. 6. Discussed ongoing medical management versus repeat cardiac catheterization at tertiary care center. Risk versus benefits of cardiac catheterization discussed. Patient agreeable to cardiac catheterization at [facility] due to ongoing angina symptoms. Scheduled for 08/10/2023 7. Future considerations for the addition of Ranexa 8. No indication for AICD at this time, LV systolic function >30%. 8. Recommend activity restrictions to avoid recurrent chest pain. Patient works a physically demanding job- disability paperwork pending. 3. Dyslipidemia, goal LDL below 70 Controlled, LDL 31. 1. Continue Crestor 40 mg daily and Zetia 10 mg daily 4. Tobacco use disorder The patient was counselled about the ill effects of smoking, which may include Cardiovascular disease, cerebrovascular disease, Peripheral arterial disease, COPD, lung cancer etc. The patient is advised and encouraged to quit smoking completely. Different options for successfully quitting cigarettes were discussed with the patient. Patient could quit smoking approximately 2-3 weeks ago. The patient agrees to the above plan and will call with additional questions or concerns. ER with all emergencies advised. Check-out note: Labs and CXR today. Follow up after cath-- okay to keep follow up as scheduled withRR in September. I spent a total of 45 minutes on the date of service in preparation, delivery, and documentation ofthe care provided to Oc Cazares excluding any time spent in the performance of separately billedservices. HAKAN Cheng [facility], Department of Cardiology documented in this encounter Procedure Notes * Brad Li DO - 08/10/2023 10:52 AM EDT [facility] [address] [facility] [id number] CARDIAC CRIB TENDER BRIEF PROCEDURE NOTE Name: Oc Cazares Date: 08/10/2023 Time: 10:52 AM Location: CARDIAC LABS [facility] Date of Procedure: 08/10/2023 Pre-op Diagnosis: Chest pain - uncertain etiology Post-op Diagnosis: Coronary artery disease Procedure: Coronary angiography Java Developer Architect: Dr. Monroy Remelt Operator(s): Dr. Lazcano Anesthesia: Monitored local anesthesia with sedation Additional Findings: Coronary disease - hemodynamically significant Mid LAD has a 50% stenosis Mid LCx at bifurcation at OM1 has a 80% instent restenosis. We attempted to perform POBA but were unable to pass the smallest profile balloon ( 1.25mm balloon) with guide liner support. Prox and mid RCA has mild CAD with 40% stenosis Complications: none Condition of patient: Good Recommendations: Optimize medical management for angina. Start imdur 30mg daily. documented in this encounter Nursing Notes * Siomara Reyes RN - 08/10/2023 2:40 PM EDT Called to pt room by cath tech, pt stated he feels hot and dizzy, SBP in the 60s, HR in the 30s, Dr. Al at bedside, IVF given, atropine given as ordered, EKG obtained. VS as charted, will monitor closely. documented in this encounter Miscellaneous Notes * Communication - Brad Li, DO - 08/10/2023 7:28 AM EDT PROGRESS NOTE - Interventional Cardiology [facility] [address] Name: Oc Cazares Date: 08/10/2023 Time: 7:28 AM Name: Oc Cazares Referring Provider: Trisha Chapa [facility]: [id number] Referring : same as above Procedure Requested: Left heart cath, Coronary angiography Indication for Cath: Cardiomyopathy Medical History Medication List (-) DM, if yes, what meds: - Prior to Admission medications Medication Sig Last Dose Discont. Metoprolol Succinate ER 25 MG Oral Tablet Extended Release 24 Hour (toPROL XL) Take 1 Tablet by mouth in the morning and 1 Tablet before bedtime. Sucralfate 1 GM Oral Tablet (Carafate) Take 1 Tablet by mouth 4 times a day before meals and at bedtime. Spironolactone 25 MG Oral Tablet (Aldactone) Take 0.5 Tablets by mouth in the morning. Dicyclomine HCl 10 MG Oral Capsule (Bentyl) take 1 capsule by mouth twice a day if needed for abdominal pain Brilinta 90 MG Oral Tablet Take 1 Tablet by mouth in the morning and 1 Tablet before bedtime. Aspirin 81 MG Oral Tablet Delayed Release (Aspirin Low Dose) Take by mouth 1 Tablet in the morning.In the morning.. Ezetimibe 10 MG Oral Tablet (Zetia) Take by mouth 1 Tablet in the morning. Famotidine 40 MG Oral Tablet (Pepcid) Take by mouth 1 Tablet before bedtime. Magnesium Oxide 400 MG Oral Tablet Take by mouth 1 Tablet in the morning. Nitroglycerin 0.4 MG Sublingual Tablet Sublingual (Nitrostat) Place under the tongue 1 Tablet every5 minutes as needed for Pain, Chest. up to 3 doses in 15 minutes Pantoprazole Sodium 40 MG Oral Tablet Delayed Release (Protonix) Take by mouth 1 Tablet in the morning. Rosuvastatin Calcium 40 MG Oral Tablet (Crestor) Take by mouth 1 Tablet in the morning. Sertraline HCl 50 MG Oral Tablet (Zoloft) Take by mouth 1 Tablet in the morning. (-) HTN (-) Prior CHF in last 2 weeks, NYHA Class: 0 (-) PVD (-) Dialysis (+) Smoked in the past year (+) HLD (-) Family heart disease (male<55, female<65) (+) Prior NV (+) Prior PCI, if yes, when: 05/2023, 2021, 2020 (-) Valve Surgery (-) CABG, if yes, when - (-) Stroke/TIA (-) COPD/Emphysema (+) ASA in the last 24 hours (-) Dual Anti-platelet Therapy, if yes, what med: - (-) History of HIT (-) Allergic to Dye, if yes, were they prepped: - Review of patient's allergies indicates: Allergen Reactions Imdur [Isosorbide Nitrate] Severe Mirgrains [facility] Frailty Score: 4 Very Fit - 1 Well - 2 Managing Well - 3 Vulnerable - 4 Mildly Frail - 5 Moderately Frail - 6 Severely Frail - 7 Very Severely Frail - 8 Terminally Ill - 9 Current Presentation Admission Date: (Not on file) | Admission Time: 0900 CAD Presentation: (None, Unlikely to be ischemic, Stable, Unstable): stable Anginal Class: 2 Anti-Anginals in the last 2 weeks: + Beta Blockers | - Calcium Channel | - Long Acting Nitrates LV Dysfunction/ Cardiomyopathy: Yes EF in last 6 months: 35 % Stress Test (Last 6 months): no | Type of stress test: no test Result (No test, Low Risk, Intermediate Risk, High Risk, Negative, Indeterminate): no test Labs Last Creatinine: Lab Results Component Value Date/Time CREATININE - [facility] 1.2 07/30/2023 02:18 PM CREATININE - [facility] 1.2 02/29/2020 03:24 PM CREATININE-OUTSIDE LAB 1.16 12/31/2020 12:00 AM Last GFR: No components found for: "E GLOM FILT RATE" Last INR: INR Date Value 07/30/2023 0.9 10/20/2018 0.89 Last Hb/Hct: HGB (g/dL) Date Value 07/30/2023 14.6 10/20/2018 14.1 HEMOGLOBIN-OUTSIDE LAB (G/DL) Date Value 12/31/2020 15.0 HCT (%) Date Value 07/30/2023 42.4 10/20/2018 41.7 Misc. Notes PCI to 3.0 x 15 mm MELLY in LCx into OM 05/2023 PCI to LCx in 2021- 2.5 x 15mm to previous stent PCI to mid LCx into L PLB in 2020- 2.5x 18mm xience, 2.5 x 12mm xience into L PLB documented in this encounter Plan of Treatment Upcoming Encounters Date Type Department Care Team (Late st Contact Info) Description 08/27/2023 8:15 AM EST Cardiac Studies Cardiac Studies, [facility] [address] [facility] [place] [address] 09/14/2023 4:00 PM EST Office Visit [facility] [address] [place] [facility] [id number] Wade Bragg MD [address] [place] [address] 09/21/2023 8:00 AM EST Office Visit Cardiology, [facility] [address] [facility] [place] [address] Carmen Hutton PA-C [address] [place] [id number] Scheduled Orders Name Type Priority Associated Diagnoses Orde r Schedule EKG EKG STAT Bradycardia One Time for 1 Occurrences starting 08/10/2023 until 08/10/2023 Scheduled Procedures Name Priority Associated Diagnoses Date/Ti me ESOPHAGOGASTRODUODENOSCOPY ( EGD), FLEXIBLE, TRANSORAL, DIAGNOSTIC Recall 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 COLONOSCOPY FLEXIBLE PROXIMAL DIAGNOSTIC Recall History of colonic polyps Health Maintenance Due Date Last Done Comments DISCUSS TOBACCO CESSATION (REFER TO SMARTSET #0162) 1970 COVID-19 Vaccine (#1) 03/21/1970 Pneumococcal Vaccine: [...] Not on filedocumented as of this encounter Procedures Procedure Name Priority Date/Time Associated Diagnosis Comments ACT, POINT OF CARE MONA 08/10/2023 10 :41 AM EDT documented in this encounter Results * ACT, POINT OF CARE (08/10/2023 10:41 AM EDT) ACT 317 50 - 1,000 secs 08/10/2023 10:47 AM EDT [facility] Blood 08/10/2023 10:4 1 AM EDT 08/10/2023 10:47 AM EDT Narrative [facility] - 08/10/2023 10:47 AM EDT NORMAL (NON-HEPARINIZED) 74-137 SECONDS HEPARINIZED 200+ SECONDS CRITICAL GREATER THAN 1000 SECONDS Pat Monroy MD LAB POINT OF CARE TE ST DOCKED DEVICE UNSOLICITED RESULTS [facility] [address] [place] [address] documented in this encounter Visit Diagnoses Diagnosis Bradycardia Other specified cardiac dysrhythmias documented in this encounter Administered Medications Inactive Administered Medications - up to 3 most recent administrations Medication Order MAR Action Action Date Dose Rate Site Acetaminophen (Tylenol) tab 650 mg 650 mg, Oral, Q6H PRN Pain, Mild, Other, non cardiac pain, Starting on Wed08/10/23 at 1051, Until Wed08/10/23 at 2258, Maximum of 4 grams (4000 mg) per day., Post-op atropine sulfate inj 0.5 mg 0.5 mg, IV Push, ONCE, On Wed08/10/23 at 1500, For 1 dose Given By 08/10/2023 2:15 PM EDT 0.5 mg fentaNYL (PF) inj 50 mcg 50 mcg, IV Push, PRN Pain, Severe, Starting on Wed08/10/23 at 0920, Until Wed08/10/23 at 1119, For 2 hours, To be administered in Cardiac Rubber Flap Cutter intra-procedure only When given IV Push its recommended that the dose be given over 3 to 5 minutes., Intra-Op Given 08/10/2023 9:34 AM EDT 50 mcg hEParin inj 5,000 Units 5,000 Units, Intra-Arterial, PRN Other, Inadequate anticoagulation, Starting on Wed08/10/23 at 0921, Until Wed08/10/23 at 2258, For 1 dose, To be administered in Cardiac Rubber Flap Cutter intra-procedure only , Intra-Op hEParin inj 7,000 Units 7,000 Units, IV Push, PRN Other, Anticoagulation not at goal, Starting on Wed08/10/23 at 1019, Until Wed08/10/23 at 1218, For 2 hours, To be administered in Cardiac Rubber Flap Cutter intra-procedure., Intra-Op Given 08/10/2023 10:19 AM EDT 7,000 Units midazolam (Versed) 2 MG/2ML inj 1 mg 1 mg, IV Push, PRN Anxiety, Starting on Wed08/10/23 at 0920, Until Wed08/10/23 at 1119, For 2 hours, To be administered in Cardiac Rubber Flap Cutter intra-procedure only, Intra-Op Given 08/10/2023 9:34 AM EDT 1 mg documented in this encounter Active and Recently Administered Medications Times are shown in EDT. Scheduled Medication Order 08/08/2023 08/09/2023 08/10/2023 atorvaSTATin (Lipitor) tab 80 mg 80 mg, Oral, ONCE, On Wed08/10/23 at 0845, For 1 dose, Pre-Op 0845 (Not Given - Pr ovider: Siomara Reyes RN - Reason: Clinician Judgement-Notify Provider - Comment: pt took 40mg crestor this am) atropine sulfate inj 0.5 mg (COMPLETED) 0.5 mg, IV Push, ONCE, On Wed08/10/23 at 1500, For 1 dose 1415 (Given By - Pro vider: Unique Raya RN - Comment: given by Siomara Reyes RN) Ioversol (Optiray 350) 74 % inj 125 mL 125 mL, Intracoronary, ONCE, On Wed08/10/23 at 1145, For 1 dose, Intra-Op 1145 (Due) Continuous Medication Order 08/08/2023 08/09/2023 08/10/2023 NSS infusion Intravenous, at 100 mL/hr, CONTINUOUS, Starting on Wed08/10/23 at 0845, Until Wed08/10/23 at 1844, Pre-Op 0845 (Due) PRN Medication Order 08/08/2023 08/09/2023 08/10/2023 Acetaminophen (Tylenol) tab 650 mg 650 mg, Oral, Q6H PRN Pain, Mild, Other, non cardiac pain, Starting on Wed08/10/23 at 1051, Until Wed08/10/23 at 2258, Maximum of 4 grams (4000 mg) per day., Post-op fentaNYL (PF) inj 50 mcg 50 mcg, IV Push, PRN Pain, Severe, Starting on Wed08/10/23 at 0920, Until Wed08/10/23 at 1119, For 2 hours, To be administered in Cardiac Rubber Flap Cutter intra-procedure only When given IV Push its recommended that the dose be given over 3 to 5 minutes., Intra-Op 0934 (Given - Provid er: Mary David RN) hEParin inj 5,000 Units 5,000 Units, Intra-Arterial, PRN Other, Inadequate anticoagulation, Starting on Wed08/10/23 at 0921, Until Wed08/10/23 at 2258, For 1 dose, To be administered in Cardiac Rubber Flap Cutter intra-procedure only , Intra-Op 1006 (Not Given - Pr ovider: Mary David RN - Reason: Order Clarified) hEParin inj 7,000 Units 7,000 Units, IV Push, PRN Other, Anticoagulation not at goal, Starting on Wed08/10/23 at 1019, Until Wed08/10/23 at 1218, For 2 hours, To be administered in Cardiac Rubber Flap Cutter intra-procedure., Intra-Op 1019 (Given - Provid er: Mary David RN) midazolam (Versed) 2 MG/2ML inj 1 mg 1 mg, IV Push, PRN Anxiety, Starting on Wed08/10/23 at 0920, Until Wed08/10/23 at 1119, For 2 hours, To be administered in Cardiac Rubber Flap Cutter intra-procedure only, Intra-Op 0934 (Given - Provid er: Mary David RN) verapamil (Isoptin) inj 2.5 mg 2.5 mg, Intra-Arterial, PRN Other, arterial spasm, Starting on Wed08/10/23 at 0921, Until Wed08/10/23 at 1020, For 1 hour, To be administered in Cardiac Rubber Flap Cutter intra-procedure only, Intra-Op 1006 (Not Given - Pr ovider: Mary David RN - Reason: Order Clarified) documented in this encounter Advance Directives Latest Code Status on File Code Status Date Activated Date Inactivated Comments Full Code 08/14/2022 1:00 AM 08/17/2022 2:38 PM This order reflects the patients wishes and were consensually agreed upon. Question Answer Comments Discussion of Advance Directives occurred with: Patient Care Teams Doorshaker Relationship Specialty Start Date End Date Wade Bragg MD [address] [place] [address] PCP - General Family Medicine 03/24/18 documented as of this encounter
--- OUTSIDE RECORDS SUMMARY | 2023-10-22 08:00 | External Medical Summary | Summary of Care ---
Author Name Unknown Organization [facility] Address [address] [place] [address] Phone [phone] Care Team Providers Care Glove Pairer Name Role Phone Wade Bragg MD Primary Care Provider [phone] Reason for Visit * Reason Onset Date Comments Hospital Follow-Up 05/24/2023 Encounter Details Date Type Department Care Team (Late st Contact Info) Description 05/24/2023 Telephone General Internal Medicine [facility] [address] [place] [address] Wade Bragg MD [address] [place], [place] [id number] Hospital Follow-Up Allergies Active Allergy Reactions Criticality Noted Date Comments Isosorbide Nitrate 07/30/2023 Severe Mirgrains documented as of this encounter (statuses as of 08/23/2023) Medications Medication Sig Dispensed Refills Start Date End Date Status Aspirin 81 MG Oral Tablet Delayed Release (Aspirin Low Dose) Take by mouth 1 Tablet in the morning. In the morning.. 90 Tablet 3 2 Active Sertraline HCl 50 MG Oral Tablet (Zoloft)Indication s:Generalized anxiety disorder Take by mouth 1 Tablet in the morning. 90 Tablet 3 2 Active Nitroglycerin 0.4 MG Sublingual Tablet Sublingual (Nitrostat)Indicat ions:Coronary artery disease involving [place] coronary artery of [place] river heart without angina pectoris Place under the tongue 1 Tablet every 5 minutes as needed for Pain, Chest. 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 90 Tablet 3 2 Active Ezetimibe 10 MG Oral Tablet (Zetia)Indications :Coronary artery disease involving [place] coronary artery of [place] heart without angina pectoris,Dyslipide fredy, goal LDL below 130,Old AR (myocardial infarction) Take by mouth 1 Tablet in the morning. 90 Tablet 3 2 Active Magnesium Oxide 400 MG Oral Tablet Take by mouth 1 Tablet in the morning. 90 Tablet 3 2 Active Pantoprazole Sodium 40 MG Oral Tablet Delayed Release (Protonix) Take by mouth 1 Tablet in the morning. 90 Tablet 3 2 Active Rosuvastatin Calcium 40 MG Oral Tablet (Crestor) Take by mouth 1 Tablet in the morning. 90 Tablet 3 2 Active Brilinta 90 MG Oral TabletIndications: NSTEMI (non-ST elevation myocardial infarction) (HCC) Take 1 Tablet by mouth in the morning and 1 Tablet before bedtime. 180 Tablet 3 3 Active Dicyclomine HCl 10 MG Oral Capsule (Bentyl) take 1 capsule by mouth twice a day if needed for abdominal pain 60 Capsule 5 3 Active Metoprolol Succinate ER 25 MG Oral Tablet Extended Release 24 Hour (toPROL XL) Take by mouth 1 Tablet in the morning. 90 Tablet 3 2 06/21/20 23 Discontinued(Ref ill) Ondansetron 4 MG Oral Tablet Disintegrating (Zofran) Place 1 Tablet (4 mg) on tongue every 8 hours as needed for Nausea. dissolve on tongue. 20 Tablet 1 2 07/30/20 23 Discontinued Hospital, Clinic, or Other Facility Administered Medication Ordered Dose Route Frequency Start Date End Date Status albuterol sulfate (PROVENTIL) (2.5 MG/3ML) 0.083% inhalation solution 2.5 mgIndications:SOB (shortness of breath) 2.5 mg NEBULIZER Q4H PRN 03/02/2019 Act rolanda documented as of this encounter (statuses as of 08/23/2023) Active Problems Problem Noted Date Diagnosed Date Ischemic cardiomyopathy 06/22/2023 NSVT (nonsustained ventricular tachycardia) 06/[address] elevation myocardial infarction (S ATN) 06/22/2023 HFrEF (heart failure with reduced ejection fract ion) 06/22/[address] elevation myocardial infarction (STEMI) 05/28/2023 S/P angioplasty with stent 05/28/2023 Gastroesophageal reflux dise ase with esophagitis without hemorrhage 12/16/2020 Old AR (myocardial infarction) 06/27/2018 Coronary artery disease invo lving [place] river coronary artery of [place] heart without angina pectoris 06/27/2018 History of acute pancreatitis 06/27/2018 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 Dyslipidemia, goal LDL below 70 09/18/2013 Generalized anxiety disorder 03/09/2013 Tobacco use disorder 01/03/2013 documented as of this encounter (statuses as of 08/23/2023) Resolved Problems Problem Noted Date Diagnosed Date [...] as of this encounter (statuses as of 08/23/2023) Immunizations Name Administration Dates Next Due Hepatitis B, 20+ yrs 08/24/2011,04/09/2011,03/05 PPD 08/10/2014 SEASONAL INFLUENZA, PF, 6 M & Above, IM , (FLULAVAL or FLUZONE) 08/17/2022(Deferred: Patient Refused) TDAP (age 11 and older)(Adacel) 12/21/2012 documented as of this encounter Social History Tobacco Use Types Packs/Day Years Used Date Smoking Tobacco: Every Day Cigarettes 0 31 Smokeless Tobacco: Never Comments:began at age 17 2-3 cig/day as of 12/23/20 Alcohol Use Standard [...] encounter Miscellaneous Notes * Telephone Encounter - Christina Good OSA - 05/24/2023 1:34 PM EDT Scheduled. * Telephone Encounter - Ant Parsons RN - 05/24/2023 12:35 PM EDT Patient discharged today from [facility] after admission/treatment for STEMI, LCX territory infarction, S/P PCI. [facility] recommends: Cardiac rehab and [facility]. Please assist with scheduling this follow up. Thank you documented in this encounter Plan of Treatment Upcoming Encounters Date Type Department Care Team (Late st Contact Info) Description 09/14/2023 4:00 PM EST Office Visit [facility] [address] [place] [facility] [place] [phone] Wade Bragg MD [address] [facility] [place] [address] 09/21/2023 8:00 AM EST Office Visit Cardiology, [facility] [address] [place] [address] Carmen Hutton PA-C [address] [place] [address] Scheduled Procedures Name Priority Associated Diagnoses Date/Ti me ESOPHAGOGASTRODUODENOSCOPY ( EGD), FLEXIBLE, TRANSORAL, DIAGNOSTIC Recall 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 COLONOSCOPY FLEXIBLE PROXIMAL DIAGNOSTIC Recall History of colonic polyps Health Maintenance Due Date Last Done Comments DISCUSS TOBACCO CESSATION (REFER TO SMARTSET #6044) 1970 COVID-19 Vaccine (#1) 03/21/1970 Pneumococcal Vaccine: [...] Advance Directives occurred with: Patient Care Teams Glove Pairer Relationship Specialty Start Date End Date Wade Bragg MD [address] [facility] [place] [address] PCP - General Family Medicine 03/24/18 documented as of this encounter
--- OUTSIDE RECORDS SUMMARY | 2023-10-22 08:00 | External Medical Summary | Summary of Care ---
Author Name Unknown Organization [facility] Address [address] [place] [address] Phone [phone] Care Team Providers Care Woolen Tester Name Role Phone Wade Bragg MD Primary Care Provider [phone]- [phone] Reason for Visit * Reason Comments Outpatient Testing Encounter Details Date Type Department Care Team (Late st Contact Info) Description 09/08/2023 4:10 PM EST Laboratory Laboratory, [place] [address] [place] [address] [facility] [address] [place] [address] Encounter for long-term (current) use of other medications; Dyslipidemia, goal LDL below 70 Allergies Active Allergy Reactions Criticality Noted Date Comments Isosorbide Nitrate 07/30/2023 Severe Mirgrains documented as of this encounter (statuses as of 09/08/2023) Medications Medication Sig Dispensed Refills Start Date [...] Hour (toPROL XL)Indications:Coron clark artery disease involving [place] coronary artery of [place] heart without angina pectoris,Ischemic cardiomyopathy,Dysli pidemia, goal LDL below 70,Tobacco use disorder Take 1 Tablet by mouth in the morning and 1 Tablet before bedtime. 180 Tablet 3 07/30/2023 Active Sertraline HCl 50 MG Oral Tablet (Zoloft)Indications: Generalized anxiety disorder take 1 tablet by mouth every morning 90 Tablet 3 08/30/2023 Active Ezetimibe 10 MG Oral Tablet (Zetia)Indications:C oronary artery disease involving [place] coronary artery of [place] heart without angina pectoris,Dyslipidemi a, goal LDL below 130,Old CT (myocardial infarction) take 1 tablet by mouth every morning 90 Tablet 3 08/30/2023 Active Pantoprazole Sodium 40 MG Oral Tablet Delayed Release (Protonix) take 1 tablet by mouth every morning 90 Tablet 3 08/30/2023 Active Nitroglycerin 0.4 MG Sublingual Tablet Sublingual (Nitrostat)Indicatio ns:Coronary artery disease involving [place] coronary artery of [place] heart without angina pectoris place 1 tablet [...] the morning. 90 Tablet 0 09/07/2023 Active Hospital, Clinic, or Other Facility Administered Medication Ordered Dose Route Frequency Start Date End Date Status albuterol sulfate (PROVENTIL) (2.5 MG/3ML) 0.083% inhalation solution 2.5 mgIndications:SOB (shortness of breath) 2.5 mg NEBULIZER Q4H PRN 03/02/2019 Act rolanda documented as of this encounter (statuses as of 09/08/2023) Active Problems Problem Noted Date Diagnosed Date Ischemic cardiomyopathy 06/22/2023 NSVT (nonsustained ventricular tachycardia) 06/[address] elevation myocardial infarction (S ANT) 06/22/2023 HFrEF (heart failure with reduced ejection fract ion) 06/22/[address] elevation myocardial infarction (STEMI) 05/28/2023 S/P angioplasty with stent 05/28/2023 Gastroesophageal reflux dise ase with esophagitis without hemorrhage 12/16/[address] (myocardial infarction) 06/27/2018 Coronary artery disease invo lving [place] coronary artery of [place] heart without angina pectoris 06/27/2018 History of acute pancreatitis 06/27/2018 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 Dyslipidemia, goal LDL below 70 09/18/2013 Generalized anxiety disorder 03/09/2013 Tobacco use disorder 01/03/2013 documented as of this encounter (statuses as of 09/08/2023) Resolved Problems Problem Noted Date Diagnosed Date [...] as of this encounter (statuses as of 09/08/2023) Immunizations Name Administration Dates Next Due Hepatitis [...] as of this encounter Plan of Treatment Upcoming Encounters Date Type Department Care Team (Late st Contact Info) Description 09/14/2023 4:00 PM EST Office Visit Family [facility] [address] [place] [phone] Wade Bragg MD [address] [place] [address] 09/21/2023 8:00 AM EST Office Visit Cardiology, [address] [place] [address] Carmen Hutton PA-C [address] [place] [address] Pending Results Name Type Priority Associated Diagnoses Date /Time VITAMIN B12 Lab Routine Encounter for long-term (current) use of other medications 09/08/2023 4:02 PM EST LIPID PANEL WITH DIRECT LDL IF TG IS HIGH Lab Routine Dyslipidemia, goal LDL below 70 09/08/2023 4:02 PM EST Scheduled Procedures Name Priority Associated Diagnoses Date/Ti me ESOPHAGOGASTRODUODENOSCOPY ( EGD), FLEXIBLE, TRANSORAL, DIAGNOSTIC Recall 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 COLONOSCOPY FLEXIBLE PROXIMAL DIAGNOSTIC Recall History of colonic polyps Health Maintenance Due Date Last Done Comments DISCUSS TOBACCO CESSATION (REFER TO SMARTSET #9197) 1970 COVID-19 Vaccine (#1) 03/21/1970 Pneumococcal Vaccine: [...] for long-term (current) use of other medications Dyslipidemia, goal LDL below 70 Other and unspecified hyperlipidemia documented in this encounter Advance Directives Latest Code Status on File Code Status Date Activated Date Inactivated Comments Full Code 08/14/2022 1:00 AM 08/17/2022 2:38 PM This order reflects the patients wishes and were consensually agreed upon. Question Answer Comments Discussion of Advance Directives occurred with: Patient Care Teams Woolen Tester Relationship Specialty Start Date End Date Wade Bragg MD [address] [facility] [place] [phone] PCP - General Family Medicine 03/24/18 documented as of this encounter
--- OUTSIDE RECORDS SUMMARY | 2023-10-22 08:00 | External Medical Summary ---
Author Name Unknown Address Unknown Organization [id number]:LABORATORY [facility] - [address] [place] [address] Laboratory Report Ordering Provider Test Date Status NAVI EDWARDS 09/08/2023 16:02:25 Final Observation Date Value Abnormality Reference (Units ) Status Vitamin B12 09/08/2023 16:02:25 [phone] (pg/mL) Final Performing Location LABORATORY [facility] - [address] [place] [address]
--- OUTSIDE RECORDS SUMMARY | 2023-10-22 08:00 | External Medical Summary ---
Author Name Unknown Address Unknown Organization : Laboratory Report Ordering Provider Test Date Status LOAN,RENETTA 08/10/2023 14:01:33 Final NORMAL (NON-HEPARINIZED) 74- 137 SECONDS
HEPARINIZED 200+ SECONDS
CRITICAL GREATER THAN 1000 SECONDS
null Observation Date Value Abnormality Reference (Units ) Status Kaolin activated time [Units/volume] in Blood 08/10/2023 14:01:33 161 50-1000 (secs) Final Performing Location
--- OUTSIDE RECORDS SUMMARY | 2023-10-22 08:00 | External Medical Summary | Summary of Care ---
Author Name Unknown Organization [facility] Address [address] [place] [address] Phone [phone] Care Team Providers Care Steam Room Attendant Name Role Phone Ubaldo Falk MD Primary Care Provider [phone]- [phone] Reason for Visit * Reason Onset Date Comments Medication Refill 09/06/2023 Encounter Details Date Type Department Care Team (Late st Contact Info) Description 09/06/2023 Refill [facility] [address] [place] [address] Ubaldo Falk MD [address] [place] [address] Dyslipidemia, goal LDL below 70* Allergies Active Allergy Reactions Criticality Noted Date Comments Isosorbide Nitrate 07/30/2023 Severe Mirgrains documented as of this encounter (statuses as of 09/07/2023) Medications Medication Sig Dispensed Refills Start Date [...] Hour (toPROL XL)Indications:Co ronary artery disease involving [place] coronary artery of [place] heart without angina pectoris,Ischemic cardiomyopathy,Dy slipidemia, goal LDL below 70,Tobacco use disorder Take 1 Tablet by mouth in the morning and 1 Tablet before bedtime. 180 Tablet 3 07/30/2023 Active Sertraline HCl 50 MG Oral Tablet (Zoloft)Indicatio ns:Generalized anxiety disorder take 1 tablet by mouth every morning 90 Tablet 3 08/30/2023 Active Ezetimibe 10 MG Oral Tablet (Zetia)Indication s:Coronary artery disease involving [place] coronary artery of [place] heart without angina pectoris,Dyslipid emia, goal LDL below 130,Old PR (myocardial infarction) take 1 tablet by mouth every morning 90 Tablet 3 08/30/2023 Active Pantoprazole Sodium 40 MG Oral Tablet Delayed Release (Protonix) take 1 tablet by mouth every morning 90 Tablet 3 08/30/2023 Active Nitroglycerin 0.4 MG Sublingual Tablet Sublingual (Nitrostat)Indica tions:Coronary artery disease involving [place] coronary artery of [place] heart without angina pectoris place 1 tablet [...] the morning. 90 Tablet 0 09/07/2023 Active Aspirin 81 MG Oral Tablet Delayed Release (Aspirin Low Dose) Take by mouth 1 Tablet in the morning. In the morning.. 90 Tablet 3 08/06/2022 09/06/2023 Discontinue d(Refill) Rosuvastatin Calcium 40 MG Oral Tablet (Crestor) Take by mouth 1 Tablet in the morning. 90 Tablet 3 08/06/2022 09/06/2023 Discontinue d(Refill) Hospital, Clinic, or Other Facility Administered Medication Ordered Dose Route Frequency Start Date End Date Status albuterol sulfate (PROVENTIL) (2.5 MG/3ML) 0.083% inhalation solution 2.5 mgIndications:SOB (shortness of breath) 2.5 mg NEBULIZER Q4H PRN 03/02/2019 Act rolanda documented as of this encounter (statuses as of 09/07/2023) Active Problems Problem Noted Date Diagnosed Date Ischemic cardiomyopathy 06/22/2023 NSVT (nonsustained ventricular tachycardia) 06/[address] elevation myocardial infarction (S ANT) 06/22/2023 HFrEF (heart failure with reduced ejection fract ion) 06/22/[address] elevation myocardial infarction (STEMI) 05/28/2023 S/P angioplasty with stent 05/28/2023 Gastroesophageal reflux dise ase with esophagitis without hemorrhage 12/16/2020 Old PR (myocardial infarction) 06/27/2018 Coronary artery disease invo lving [place] coronary artery of [place] heart without angina pectoris 06/27/2018 History of acute pancreatitis 06/27/2018 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 Dyslipidemia, goal LDL below 70 09/18/2013 Generalized anxiety disorder 03/09/2013 Tobacco use disorder 01/03/2013 documented as of this encounter (statuses as of 09/07/2023) Resolved Problems Problem Noted Date Diagnosed Date Resolved Date Acute pancreatitis 08/13/2022 3 INFORMATION 05/11/2017 03/24/2018 Overview: 10 year cardiovascular risk 18.5% Idiopathic acute pancreatitis 09/16/2015 06/27/2018 Acute gastritis without bleeding 09/16/2015 06/27/2018 INFORMATION 09/10/2015 03/24/2018 Overview: 10 year cardiovascular risk of 21% PPD screening test 08/10/2014 08 7 INFORMATION 07/11/2014 03/24/2018 Overview: 10 year risk 19% Pancreatitis, acute 09/18/2013 03/24/20 18 Left flank pain 09/18/2013 09/16/2015 Routine medical exam 01/03/2013 018 Gastroesophageal reflux 01/03/201305/2021 Screening for cardiovascular condition 01/03/2013 05/31/2017 Vasectomy status 03/07/2003 09/16/2015 Syncope and collapse 04/26/2002 015 Anxiety state 04/26/2002 09/16/2015 documented as of this encounter (statuses as of 09/07/2023) Immunizations Name Administration Dates Next Due Hepatitis [...] encounter Miscellaneous Notes * Telephone Encounter - Mary Butler, strategic alliances manager - 09/07/2023 3:15 PM EST Received message from [facility] regarding patient needing labs. Placed call to patient to advise. Left message on voicemail advising of required labs Thank you, Mary Butler Game Moderator [facility] 09/07/2023, 3:15 PM * Telephone Encounter - Tori Iraheta [facility] - 09/07/2023 11:16 AM ESTSigned Prescriptions: Disp Refills Aspirin 81 MG Oral Tablet Delayed Release *90 Tab*0 Sig: Take 1 tablet by mouth every morning Authorizing Provider: UBALDO FALK Ordering User: TORI IRAHETA Rosuvastatin Calcium 40 MG Oral Tablet (Cr*90 Tab*0 Sig: Take 1 Tablet by mouth in the morning. Authorizing Provider: UBALDO FALK Ordering User: TORI IRAHETA E * Telephone Encounter - Tori Iraheta [facility] - 09/07/2023 11:08 AM EST Provided 90 days supply with 0 refill(s) until upcoming appointment. Per refill protocol patient should have updated labs on file within past year. Reviewed AMP report, Care Gaps/Health Maintenance, medications list, and for any routine labs typically ordered for this patient. Lab orders placed. Please contact patient to advise of labs ordered for blood draw. Recommend patient to fast if able for labs. Patient may still have water and regular medications. Advise to obtain labs before his scheduled office visit 09/14/2023. Thank you, Tori Iraheta PharmD Clinical Pharmacist [facility] 09/07/23 11:09 AM [phone] documented in this encounter Plan of Treatment Upcoming Encounters Date Type Department Care Team (Late st Contact Info) Description 09/14/2023 4:00 PM EST Office Visit Family [facility] [address] [place] [facility] [place] [address] Ubaldo Falk MD [address] [place] [facility] [place] [address] 09/21/2023 8:00 AM EST Office Visit Cardiology, [facility] [address] [place] [address] Carmen Hutton PA-C [address] [place] [address] Scheduled Orders Name Type Priority Associated Diagnoses Orde r Schedule LIPID PANEL WITH DIRECT LDL IF TG IS HIGH Lab Routine Dyslipidemia, goal LDL below 70 Expected: 09/14/2023 (Approximate), Expires: 09/07/2024 Scheduled Procedures Name Priority Associated Diagnoses Date/Ti me ESOPHAGOGASTRODUODENOSCOPY ( EGD), FLEXIBLE, TRANSORAL, DIAGNOSTIC Recall 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 COLONOSCOPY FLEXIBLE PROXIMAL DIAGNOSTIC Recall History of colonic polyps Health Maintenance Due Date Last Done Comments DISCUSS TOBACCO CESSATION (REFER TO SMARTSET #2901) 1970 COVID-19 Vaccine (#1) 03/21/1970 Pneumococcal Vaccine: [...] as of this encounter Visit Diagnoses Diagnosis Dyslipidemia, goal LDL below 70- Primary Other and unspecified hyperlipidemia documented in this encounter Advance Directives Latest Code Status on File Code Status Date Activated Date Inactivated Comments Full Code 08/14/2022 1:00 AM 08/17/2022 2:38 PM This order reflects the patients wishes and were consensually agreed upon. Question Answer Comments Discussion of Advance Directives occurred with: Patient Care Teams Steam Room Attendant Relationship Specialty Start Date End Date Ubaldo Falk MD [address] [place] [address] PCP - General Family Medicine 03/24/18 documented as of this encounter
--- OUTSIDE RECORDS SUMMARY | 2023-10-22 08:01 | External Medical Summary | Summary of Care ---
Author Name Unknown Organization [facility] Address [address] [facility] [place] [address] Phone [phone] Care Team Providers Care Hand Ii Blocker Name Role Phone Wade Bragg MD Primary Care Provider +1- [phone] Reason for Visit * Reason Onset Date Comments Appointment 08/02/2023 Encounter Details Date Type Department Care Team (Late st Contact Info) Description 08/02/2023 Telephone Cardiology, [facility] [address] [place] [address] Trisha Chapa CRNP [address] [place] [address] Appointment Allergies Active Allergy Reactions Criticality Noted Date Comments Isosorbide Nitrate 07/30/2023 Severe Mirgrains documented as of this encounter (statuses as of 08/02/2023) Medications Medication Sig Dispensed Refills Start Date [...] Tablet Sublingual (Nitrostat)Indicatio ns:Coronary artery disease involving [place] coronary artery of [place] heart without angina pectoris Place under the [...] Oral Tablet (Zetia)Indications:C oronary artery disease involving [place] coronary artery of [place] heart without angina pectoris,Dyslipidemi a, goal LDL below 130,Old [place] (myocardial infarction) Take by mouth 1 Tablet [...] Hour (toPROL XL)Indications:Coron clark artery disease involving [place] coronary artery of [place] heart without angina pectoris,Ischemic cardiomyopathy,Dysli pidemia, goal LDL below 70,Tobacco use disorder Take 1 Tablet by mouth in the morning and 1 Tablet before bedtime. 180 Tablet 3 07/30/2023 Active Hospital, Clinic, or Other Facility Administered Medication Ordered Dose Route Frequency Start Date End Date Status albuterol sulfate (PROVENTIL) (2.5 MG/3ML) 0.083% inhalation solution 2.5 mgIndications:SOB (shortness of breath) 2.5 mg NEBULIZER Q4H PRN 03/02/2019 Act rolanda documented as of this encounter (statuses as of 08/02/2023) Active Problems Problem Noted Date Diagnosed Date Ischemic cardiomyopathy 06/22/2023 NSVT (nonsustained ventricular tachycardia) 06/[address] elevation myocardial infarction (S ANT) 06/22/2023 HFrEF (heart failure with reduced ejection fract ion) 06/22/[address] elevation myocardial infarction (STEMI) 05/28/2023 S/P angioplasty with stent 05/28/2023 Gastroesophageal reflux dise ase with esophagitis without hemorrhage 12/16/2020 Old CO (myocardial infarction) 06/27/2018 Coronary artery disease invo lving [place] coronary artery of [place] heart without angina pectoris 06/27/2018 History of acute pancreatitis 06/27/2018 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 Never true 02/16/20 Within the past 12 months, t he [...] encounter Miscellaneous Notes * Telephone Encounter - NAKIA Hale - 08/02/2023 8:47 AM EDT Patient has been notified of the message. Patient has no further questions. * Telephone Encounter - Poppy Mendoza CMA - 08/02/2023 8:34 AM EDT Heart cath originally scheduled at [facility]. Supposed to be in [place]. Rescheduled for same date and time, but in [place]. Tried calling, left voicemail. Portal message sent. Will call again this afternoon. documented in this encounter Plan of Treatment Upcoming Encounters Date Type Department Care Team (Latest Contact Info) Description 08/10/2023 9:00 AM EDT Hospital Encounter CRS Waiting [facility], Cardiac Recovery Suite Waiting Unit, [address] [place] [address] Pat Monroy MD [address] [place] [address] 08/10/2023 9:00 AM EDT - 08/10/2023 10:00 AM EDT Surgery CRS Waiting [facility], Cardiac Recovery Suite Waiting Unit, [address] [place] [address] Pat Monroy MD [facility] [place] [address] CORONARY ANGIOGRAPHY W/LEFT HEART CATH 08/10/2023 9:00 AM EDT Office Visit Cardiology [facility] [address] [place] [address] [facility] [address] [place] [address] 08/27/2023 8:15 AM EST Cardiac Studies Cardiac Studies, [address] [place] [address] 09/14/2023 4:00 PM EST Office Visit [facility] [address] [place] [id number] Wade Bragg MD [address] [place] [address] 09/21/2023 8:00 AM EST Office Visit Cardiology, [address] [address] Carmen Apodaca PA-C [address] [place] [address] Scheduled Procedures Name Priority Associated Diagnoses Date/Ti me CORONARY ANGIOGRAPHY W/LEFT HEART CATH CAD (coronary artery disease) Cardiomyopathy (HCC) 08/10/2023 9:00 AM EDT ESOPHAGOGASTRODUODENOSCOPY ( EGD), FLEXIBLE, TRANSORAL, DIAGNOSTIC Recall 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 COLONOSCOPY FLEXIBLE PROXIMA L DIAGNOSTIC Recall History of colonic polyps Health Maintenance Due Date Last Done Comments DISCUSS TOBACCO CESSATION (REFER TO SMARTSET #3292) 1970 COVID-19 Vaccine (#1) 03/21/1970 Pneumococcal Vaccine: [...] Advance Directives occurred with: Patient Care Teams Hand Ii Blocker Relationship Specialty Start Date End Date Wade Bragg MD [address] [facility] [place] [place] [address] PCP - General Family Medicine 03/24/18 documented as of this encounter
--- OUTSIDE RECORDS SUMMARY | 2023-10-22 08:01 | External Medical Summary ---
Author Name Unknown Address Unknown Organization [id number] [place] [address] [place] [id number] Laboratory Report Ordering Provider Test Date Status MALINI BENOIT 07/30/2023 14:18:26 Final Observation Date Value Abnormality Reference (Units ) Status WBC, Total 07/30/2023 14:18:26 6.34 4.00-10.8 0 (K/uL) Final RBC 07/30/2023 14:18:26 4.30 4.50-5.25 (M/uL) Final Hemoglobin 07/30/2023 14:18:26 14.6 14.0-16.8 (g/dL) Final HCT 07/30/2023 14:18:26 42.4 40.0-48.4 (%) Final MCV 07/30/2023 14:18:26 98.6 82.0-99.5 (fL) Final MCH 07/30/2023 14:18:26 34.0 27.0-34.0 (pg) Final MCHC 07/30/2023 14:18:26 34.4 32.0-36.0 (g/dL) Final RDW 07/30/2023 14:18:26 12.5 11.5-15.5 (%) Final Platelets 07/30/2023 14:18:26 249 140-400 (K /uL) Final MPV 07/30/2023 14:18:26 9.2 6.6-11.1 ( fL) Final Performing Location [facility] [place] [address] [place] [id number]
--- OUTSIDE RECORDS SUMMARY | 2023-10-22 08:01 | External Medical Summary ---
Author Name Unknown Address Unknown Organization [facility] [place] [address] [place] [id number] Laboratory Report Ordering Provider Test Date Status MALINI BENOIT 07/30/2023 14:18:26 Final Warfarin Therapy
INR: 2 .0-3.0 conventional anticoagulation
INR: 2.5- 3.5 high intensity anticoagulation Observation Date Value Abnormality Reference (Units ) Status PT 07/30/2023 14:18:26 12.6 11.6-15.2 (seconds) Final INR 07/30/2023 14:18:26 0.9 0.8-1.2 Final Performing Location [facility] [place] [address] [place] [address]
--- OUTSIDE RECORDS SUMMARY | 2023-10-22 08:01 | External Medical Summary | Summary of Care ---
Author Name Unknown Organization [facility] Address [address] [place] [address] Phone [phone] Care Team Providers Care Ski Guide Name Role Phone Wade Bragg MD Primary Care Provider +1- [phone] Reason for Visit * Reason Comments Outpatient Testing Encounter Details Date Type Department Care Team Description 07/30/2023 Laboratory Laboratory, [facility] [address] [place] [address] [facility] [address] [place] [address] Elevated LFTs; Coronary artery disease involving [place] coronary artery of [place] heart without angina pectoris; Ischemic cardiomyopathy; Dyslipidemia, goal LDL below 70; Tobacco use disorder Allergies Active Allergy Reactions Severity Noted Date Comments Isosorbide Nitrate 07/30/2023 Severe Mirgrains documented as of this encounter (statuses as of 07/30/2023) Medications Medication Sig Dispensed Refills Start Date [...] Tablet Sublingual (Nitrostat)Indicatio ns:Coronary artery disease involving [place] coronary artery of [place] heart without angina pectoris Place under the [...] Oral Tablet (Zetia)Indications:C oronary artery disease involving [place] coronary artery of [place] heart without angina pectoris,Dyslipidemi a, goal LDL below 130,Old [place] (myocardial infarction) Take by mouth 1 Tablet [...] Hour (toPROL XL)Indications:Coron clark artery disease involving [place] coronary artery of [place] heart without angina pectoris,Ischemic cardiomyopathy,Dysli pidemia, goal [...] as of this encounter (statuses as of 07/30/2023) Active Problems Problem Noted Date Ischemic cardiomyopathy 06/22/2023 NSVT (nonsustained ventricular tachycard ia) 06/22/[address] elevation myocardial infar ction (STEMI) 06/22/2023 HFrEF (heart failure with reduced ejecti on fraction) 06/22/[address] elevation myocardial infarction (STEMI) 05/28/2023 S/P angioplasty with stent 05/28/2023 Gastroesophageal reflux disease with eso phagitis without hemorrhage 12/16/2020 Old UT (myocardial infarction) 8 Coronary artery disease invo lving [place] coronary artery of [place] heart without angina pectoris 06/27/2018 History of acute pancreatitis 06/27/2018 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 Dyslipidemia, goal LDL below 70 09/18/20 13 Generalized anxiety disorder 03/09/2013 Tobacco use disorder 01/03/2013 documented as of this encounter (statuses as of 07/30/2023) Resolved Problems Problem Noted Date Resolved Date Acute pancreatitis 08/13/2022 05/28/2023 INFORMATION 05/11/2017 03/24/2018 Overview: 10 year cardiovascular risk 18.5% Idiopathic acute pancreatitis 09/16/2015 Acute gastritis without bleeding 09/16/2015 06/27/2018 INFORMATION 09/10/2015 03/24/2018 Overview: 10 year cardiovascular risk of 21% PPD screening test 08/10/2014 05/31/2017 INFORMATION 07/11/2014 03/24/2018 Overview: 10 year risk 19% Pancreatitis, acute 09/18/2013 03/24/2018 Left flank pain 09/18/2013 09/16/2015 Routine medical exam 01/03/2013 03/24/2018 Gastroesophageal reflux 01/03/2013 12/17/19 21 Screening for cardiovascular condition 3 05/31/2017 Vasectomy status 03/07/2003 09/16/2015 Syncope and collapse 04/26/2002 09/16/2015 Anxiety state 04/26/2002 09/16/2015 documented as of this encounter (statuses as of 07/30/2023) Immunizations Name Administration Dates Next Due Hepatitis [...] 0.6 oz pur e alcohol) last 2015 Food Insecurity Answer Date Recorded Within the past 12 months, y ou worried that your food would run out before you got money to buy more. Never true 02/15/2023 Within the past 12 months, t he food you bought just didn't last and you didn't have money to get more. Never true 02/15/2023 Sex Assigned at Date Recorded Male 05/27/2023 12:36 PM EDT Job Start Date Occupation Industry Not on file Not on file Not on file documented as of this encounter Plan of Treatment Upcoming Encounters Date Type Specialty Care Team Description 08/27/2023 Cardiac Studies Cardiac Studies 09/14/2023 Office Visit Family Medicine [facility]agg [facility] [address] [facility] [address] 09/21/2023 Office Visit Cardiology Carmen Hutton PA-C [address] [place] [address] Pending Results Name Type Priority Associated Diagnoses Date /Time HEPATIC FUNCTION PANEL Lab Routine Elevated LFTs 07/30/2023 2:18 PM EDT APTT Lab Routine Coronary artery disease involving [place] coronary artery of [place] heart without angina pectoris Ischemic cardiomyopathy Dyslipidemia, goal LDL below 70 Tobacco use disorder 07/30/2023 2:18 PM EDT BASIC METABOLIC PANEL Lab Routine Coronary artery disease involving [place] coronary artery of [place] heart without angina pectoris Ischemic cardiomyopathy Dyslipidemia, goal LDL below 70 Tobacco use disorder 07/30/2023 2:18 PM EDT CBC WITH WBC DIFFERENTIAL Lab Routine Coronary artery disease involving [place] coronary artery of [place] heart without angina pectoris Ischemic cardiomyopathy Dyslipidemia, goal LDL below 70 Tobacco use disorder 07/30/2023 2:18 PM EDT PT INR Lab Routine Coronary artery disease involving [place] coronary artery of [place] heart without angina pectoris Ischemic cardiomyopathy Dyslipidemia, goal LDL below 70 Tobacco use disorder 07/30/2023 2:18 PM EDT CBC Lab Routine Coronary artery disease involving [place] coronary artery of [place] heart without angina pectoris Ischemic cardiomyopathy Dyslipidemia, goal LDL below 70 Tobacco use disorder 07/30/2023 2:18 PM EDT DIFFERENTIAL, AUTOMATED Lab Routine Coronary artery disease involving [place] coronary artery of [place] heart without angina pectoris Ischemic cardiomyopathy Dyslipidemia, goal LDL below 70 Tobacco use disorder 07/30/2023 2:18 PM EDT Scheduled Procedures Name Priority Associated Diagnoses Date/Ti [...] as of this encounter Visit Diagnoses Diagnosis Elevated LFTs Other abnormal blood chemistry Coronary artery disease involving [place] coronary artery of [place] heart without angina pectoris Ischemic cardiomyopathy Other specified forms of chronic ischemic heart disease Dyslipidemia, goal LDL below 70 Other and unspecified hyperlipidemia Tobacco use disorder documented in this encounter Advance Directives Latest Code Status on File Code Status Date Activated Date Inactivated Comments Full Code 08/14/2022 1:00 AM 08/17/2022 2:38 PM This order reflects the patients wishes and were consensually agreed upon. Question Answer Comments Discussion of Advance Directives occurred with: Patient Care Teams Ski Guide Relationship Specialty Start Date End Date Wade Bragg MD [address], [place] [id number] PCP - General Family Medicine 03/24/18 documented as of this encounter
--- OUTSIDE RECORDS SUMMARY | 2023-10-22 08:01 | External Medical Summary ---
Author Name Unknown Address Unknown Organization [facility] [place] [address] [place] [id number] Laboratory Report Ordering Provider Test Date Status MALINI BENOIT 07/30/2023 14:18:26 Final Observation Date Value Abnormality Reference (Units ) Status BUN 07/30/2023 14:18:26 11 6-20 (mg/dL) Final Creatinine 07/30/2023 14:18:26 1.2 0.6-1.2 (mg/dL) Final Glomerular filtration rate/1.73 sq M.predicted [Volume Rate/Area] in Serum, Plasma or Blood by Creatinine-based formula (CKD-EPI) 07/30/2023 14:18:26 76 >=60 (mL/min) Final eGFR is calculated based on the CKD-EPI 2020 equation SODIUM 07/30/2023 14:18:26 139 135-146 (m mol/L) Final Potassium 07/30/2023 14:18:26 3.9 3.5-5.1 (m mol/L) Final Cl 07/30/2023 14:18:26 103 98-107 (mm ol/L) Final CO2 07/30/2023 14:18:26 23 22-32 (mmo l/L) Final Anion gap 07/30/2023 14:18:26 13 7-15 (mmol /L) Final Glucose 07/30/2023 14:18:26 88 70-120 (mg /dL) Final Calcium 07/30/2023 14:18:26 9.3 8.4-10.2 ( mg/dL) Final Performing Location [facility] [place] [address] [place] [address]
--- OUTSIDE RECORDS SUMMARY | 2023-10-22 08:01 | External Medical Summary | Summary of Care ---
Author Name Unknown Organization [facility] Address [address] [place] [address] Phone [phone] Care Team Providers Care Hiv/Aids Care Nurse Name Role Phone Wade Bragg MD Primary Care Provider +1- [phone] Reason for Visit * Reason Comments Follow Up Encounter Details Date Type Department Care Team Description 07/30/2023 Office Visit Cardiology, [facility] [address] [place] [address] Trisha Chapa CRNP [address] [place] [address] Coronary artery disease involving [place] coronary artery of [place] heart without angina pectoris*; Ischemic cardiomyopathy; Dyslipidemia, goal LDL below 70; [...] Tablet Sublingual (Nitrostat)Indicat ions:Coronary artery disease involving [place] coronary artery of [place] heart without angina pectoris Place under the [...] Oral Tablet (Zetia)Indications :Coronary artery disease involving [place] coronary artery of [place] heart without angina pectoris,Dyslipide fredy, goal LDL below 130,Old CA (myocardial infarction) Take by mouth 1 Tablet [...] meals and at bedtime. 0 3 Active Metoprolol Succinate ER 25 MG Oral Tablet Extended Release 24 Hour (toPROL XL)Indications:Cor onary artery disease involving [place] coronary artery of [place] heart without angina pectoris,Ischemic cardiomyopathy,Dys lipidemia, goal LDL below 70,Tobacco use disorder Take 1 Tablet by mouth in the morning and 1 Tablet before bedtime. 180 Tablet 3 3 Active Ondansetron 4 MG Oral Tablet Disintegrating (Zofran) Place 1 Tablet (4 mg) on tongue every 8 hours as needed for Nausea. dissolve on tongue. 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 Dyslipidemia, goal LDL below 70 09/18/20 13 Generalized anxiety disorder 03/09/2013 Tobacco use disorder 01/03/2013 documented as of this encounter (statuses as of 07/30/2023) Resolved Problems Problem Noted Date Resolved Date Acute pancreatitis 08/13/2022 05/28/2023 INFORMATION 05/11/2017 03/24/2018 Overview: 10 year cardiovascular risk 18.5% Idiopathic acute pancreatitis 09/16/2015 09 / Acute gastritis without bleeding 09/16/2015 06/27/2018 INFORMATION [...] Sign Reading Time Taken Comments Blood Pressure 128/78 07/30/2023 1:24 PM EDT Pulse 72 07/30/2023 1:24 PM EDT Temperature - - Respiratory Rate - - Oxygen Saturation 97% 07/30/2023 1:24 PM EDT Inhaled Oxygen Concentration - - Weight 57.6 kg (127 lb) 07/30/2023 1:24 PM EDT Height - - Body Mass Index 21.16 08/14/2022 2:08 AM EDT documented in this encounter Progress Notes * HAKAN Richey - 07/30/2023 1:30 PM EDT Images from the original note were not included. 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 Tamez Past medical history: Premature CAD Coronary artery disease status post PCI to the RCA in the setting of a [id number] elevation CA. Inferior STEMI/100% acute distal circumflex occlusion at [...] was severely reduced at 25% Re-presented to [facility] Emergency Department at the end of June with recurrent chest discomfort. 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[employer] and while [...] esophagus 2015 Depression 2011 1 week in [facility], was on Zoloft Dyslipidemia, goal LDL below 130 INFORMATION 07/2014 10 year risk 19% INFORMATION 09/2015 10 year cardiovascular risk of 21% INFORMATION 05/2017 10 year cardiovascular risk 18.5% Past Surgical History: Procedure Laterality Date COLONOSCOPY, DIAGNOSTIC (RECTUM) 05/06/2020 internal hemorrhoids/biopsies show adenomatous polyps/recall 5 years/COLONOSCOPY FLEXIBLE PROXIMAL DIAGNOSTIC performed by Kike Gross DO at ENDOSCOPY [facility] EGD, FLEXIBLE, DIAGNOSTIC 12/25/2016 [place], repeat 3 yrs/ESOPHAGOGASTRODUODENOSCOPY (EGD), FLEXIBLE, TRANSORAL, DIAGNOSTIC performed by Kike Gross DO at ENDOSCOPY [facility] EGD, FLEXIBLE, DIAGNOSTIC 05/06/2020 medium sized hiatal hernia/gastritis/biopsies confirm barretts/recall 3 years/ESOPHAGOGASTRODUODENOSCOPY (EGD), FLEXIBLE, TRANSORAL, DIAGNOSTIC performed by Kike Gross DO at ENDOSCOPY [facility] EGD, FLEXIBLE, DIAGNOSTIC N/A 08/22/2021 [facility], EGD, Esophageal mucosal changes suspicious for Casanova's esopahgaus state C4-M5, gastritis, duodentitis / biopsies evid of infection know as Casanova's esophagitis/ 1 year recall EGD, FLEXIBLE, DIAGNOSTIC 09/23/2021 [place], pancreatic stent removed, repeat 3 yrs / [facility] EGD, W/ENDOSCOPIC US 10/18/2015 Barretts, repeat 1 yr/[facility] ERCP N/A 08/22/2021 [facility], ERCP, major papilla located partially within diverticulum, Choledocholithiasis found, 1 biliary stent placed / no specimens collected / repeat in 6 week to remove stent ERCP 09/23/2021 Choledocholithiasis / [facility] US ENDOSCOPIC N/A 08/22/2021 [facility], EUS dilation common bile duct up to [...] Normal. Lab data/imaging study review: Echo at [facility] 07/09/2023 Echo 05/20/2023 Impression/Plan: 1. Coronary artery disease involving [place] coronary artery of [place] heart without angina pectoris 2. Ischemic cardiomyopathy [...] discussed. Patient agreeable to cardiac catheterization at [facility] due to ongoing angina symptoms. Scheduled for [...] in the performance of separately billedservices. HAKAN Cheng, Department of Cardiology This chart was completed in part utilizing [employer] Speech Voice Recognition Software. Grammatical errors, random word insertions, prounoun errors, and incomplete sentences are an occasional consequence of this system due to software limitations, ambient noise, and hardware issues. Any formal questions or concerns about the content, text, or information contained within the body of this dictation should be directly addressed to the provider for clarification. documented in this encounter Procedure Notes * Edu Sheth DO - 07/30/2023 1:33 PM EDTAssociated Order(s): EKG COMPLETE (TRACING AND INTERP) REASON FOR STUDY: CP, CAD sp PCI CONCLUSIONS: Sinus rhythm with occasional Premature ventricular complexes Possible Lateral infarct , age undetermined Inferior-posterior infarct , age undetermined Abnormal ECG When compared with ECG of 23-OCT-2022 12:52, Premature ventricular complexes are now Present Borderline criteria for Lateral infarct are now Present Questionable change in The axis Ventricular Rate: 65 Atrial Rate: 65 MT Interval: 128 QRS Duration: 100 QT/QTc: 378/393 ms P-R-T [place]: 75 : -11 : -3 degrees documented in this encounter Nursing Notes * Poppy Mendoza CMA - 07/30/2023 1:22 PM EDT Examination Room: 7 Name: Oc Cazares Date of : (1970) Reason for Visit: hosp f/u Interim Hospitalization(s): [facility] 07/09-07/12. ER 07/26 Problems/Concerns: Denied Chest Pain/SOB: chest pain and breathing issues [facility] a way you can [...] Family Medicine Wade Bragg MD [address] [place] [address] 09/21/2023 Office Visit Cardiology Carmen Hutton PA-C [address] [place] [address] Pending Results Name Type Priority Associated Diagnoses Date /Time XR CHEST 2 VIEWS Medical Imaging STAT Coronary artery disease involving [place] coronary artery of [place] heart without angina pectoris Ischemic cardiomyopathy Dyslipidemia, goal LDL below 70 Tobacco use disorder 07/30/2023 2:34 PM EDT APTT Lab Routine Coronary artery disease involving [place] coronary artery of [place] heart without angina pectoris Ischemic cardiomyopathy Dyslipidemia, goal LDL below 70 Tobacco use disorder 07/30/2023 2:18 PM EDT BASIC METABOLIC PANEL Lab Routine Coronary artery disease involving [place] coronary artery of [place] heart without angina pectoris Ischemic cardiomyopathy Dyslipidemia, goal LDL below 70 Tobacco use disorder 07/30/2023 2:18 PM EDT CBC WITH WBC DIFFERENTIAL Lab Routine Coronary artery disease involving [place] coronary artery of [place] heart without angina pectoris Ischemic cardiomyopathy Dyslipidemia, goal LDL below 70 Tobacco use disorder 07/30/2023 2:18 PM EDT PT INR Lab Routine Coronary artery disease involving [place] coronary artery of [place] heart without angina pectoris Ischemic cardiomyopathy Dyslipidemia, goal LDL below 70 Tobacco use disorder 07/30/2023 2:18 PM EDT Scheduled Orders Name Type Priority Associated Diagnoses Orde r Schedule APTT Lab Routine Coronary artery disease involving [place] coronary artery of [place] heart without angina pectoris Ischemic cardiomyopathy Dyslipidemia, goal LDL below 70 Tobacco use disorder Expected: 07/30/2023, Expires: 07/30/2024 BASIC METABOLIC PANEL Lab Routine Coronary artery disease involving [place] coronary artery of [place] heart without angina pectoris Ischemic cardiomyopathy Dyslipidemia, goal LDL below 70 Tobacco use disorder Expected: 07/30/2023, Expires: 07/30/2024 CARDIAC CATH-CARDIOLOGY ONLY Procedures Routine Coronary artery disease involving [place] coronary artery of [place] heart without angina pectoris Ischemic cardiomyopathy Dyslipidemia, goal LDL below 70 Tobacco use disorder Ordered: 07/30/2023 CBC WITH WBC DIFFERENTIAL Lab Routine Coronary artery disease involving [place] coronary artery of [place] heart without angina pectoris Ischemic cardiomyopathy Dyslipidemia, goal LDL below 70 Tobacco use disorder Expected: 07/30/2023, Expires: 07/30/2024 PT INR Lab Routine Coronary artery disease involving [place] coronary artery of [place] heart without angina pectoris Ischemic cardiomyopathy Dyslipidemia, goal LDL below 70 Tobacco use disorder Expected: 07/30/2023, Expires: 07/30/2024 Scheduled Procedures Name Priority Associated Diagnoses Date/Ti me ESOPHAGOGASTRODUODENOSCOPY ( EGD), FLEXIBLE, TRANSORAL, DIAGNOSTIC Recall 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 COLONOSCOPY FLEXIBLE PROXIMAL DIAGNOSTIC Recall History of colonic polyps Health Maintenance Due Date Last Done Comments DISCUSS TOBACCO CESSATION (REFER TO SMARTSET #1355) 1970 COVID-19 Vaccine (#1) 03/21/1970 Pneumococcal Vaccine: [...] Procedure Name Priority Date/Time Associated Diagnosis Comments MT ECG ROUTINE ECG W/LEAST 12 LDS I&R ONLY Routine 07/30/2023 1:33 PM EDT Coronary artery disease involving [place] coronary artery of [place] heart without angina pectoris Ischemic cardiomyopathy Dyslipidemia, goal LDL below 70 Tobacco use disorder documented in this encounter Results * EKG COMPLETE (TRACING AND INTERP) (07/30/2023 1:33 PM EDT) 07/30/2023 1:33 PM EDT Procedure Note Edu Sheth, DO - 07/30/2023 1:33 PM EDT REASON FOR STUDY: CP, CAD sp PCI CONCLUSIONS: Sinus rhythm with occasional Premature ventricular complexes Possible Lateral infarct , age undetermined Inferior-posterior infarct , age undetermined Abnormal ECG When compared with ECG of 23-OCT-2022 12:52, Premature ventricular complexes are now Present Borderline criteria for Lateral infarct are now Present Questionable change in The axis Ventricular Rate: 65 Atrial Rate: 65 MT Interval: 128 QRS Duration: 100 QT/QTc: 378/393 ms P-R-T [place]: 75 : -11 : -3 degrees Trisha MCCLENDON [email or web address] documented in this encounter Visit Diagnoses Diagnosis Coronary artery disease involving [place] coronary artery of [place] heart without angina pectoris- Primary Ischemic cardiomyopathy Other specified forms of chronic [...] Advance Directives occurred with: Patient Care Teams Hiv/Aids Care Nurse Relationship Specialty Start Date End Date Wade Bragg MD [address] [place] [address] PCP - General Family Medicine 03/24/18 documented as of this encounter"
--- OUTSIDE RECORDS SUMMARY | 2023-10-22 08:01 | External Medical Summary | Summary of Care ---
Author Name Unknown Organization [facility] Address [address] [facility] [place] [address] Phone [phone] Care Team Providers Care Personal Injury Law Specialist Name Role Phone Wade Bragg MD Primary Care Provider [phone]- [phone] Reason for Visit * Reason Onset Date Comments Test Results 08/03/2023 Encounter Details Date Type Department Care Team (Late st Contact Info) Description 08/03/2023 Telephone Cardiology, [facility] [address] [facility] [place] [address] Trisha Chapa CRNP [address] [place] [address] Test Results Allergies Active Allergy Reactions Criticality Noted Date Comments Isosorbide Nitrate 07/30/2023 Severe Mirgrains documented as of this encounter (statuses as of 08/03/2023) Medications Medication Sig Dispensed Refills Start Date [...] Tablet Sublingual (Nitrostat)Indicatio ns:Coronary artery disease involving [place] coronary artery of [place] heart without angina pectoris Place under the [...] Oral Tablet (Zetia)Indications:C oronary artery disease involving [place] coronary artery of [place] heart without angina pectoris,Dyslipidemi a, goal LDL below 130,Old NM (myocardial infarction) Take by mouth 1 Tablet [...] Hour (toPROL XL)Indications:Coron clark artery disease involving [place] coronary artery of [place] heart without angina pectoris,Ischemic cardiomyopathy,Dysli pidemia, goal [...] as of this encounter (statuses as of 08/03/2023) Active Problems Problem Noted Date Diagnosed Date Ischemic cardiomyopathy 06/22/2023 NSVT (nonsustained ventricular tachycardia) 06/[address] elevation myocardial infarction (S ANT) 06/22/2023 HFrEF (heart failure with reduced ejection fract ion) 06/22/[address] elevation myocardial infarction (STEMI) 05/28/2023 S/P angioplasty with stent 05/28/2023 Gastroesophageal reflux dise ase with esophagitis without hemorrhage 12/16/2020 Old NM (myocardial infarction) 06/27/2018 Coronary artery disease invo lving [place] coronary artery of 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 Dyslipidemia, goal LDL below 70 09/18/2013 Generalized anxiety disorder 03/09/2013 Tobacco use disorder 01/03/2013 documented as of this encounter (statuses as of 08/03/2023) Resolved Problems Problem Noted Date Diagnosed Date [...] as of this encounter (statuses as of 08/03/2023) Immunizations Name Administration Dates Next Due Hepatitis [...] encounter Miscellaneous Notes * Telephone Encounter - Racheal Kaplan LPN - 08/03/2023 9:12 AM EDT mychart * Telephone Encounter - Racheal Kaplan LPN - 08/03/2023 9:12 AM EDT ----- Message from HAKAN Richey sent at 08/02/2023 7:59 AM EDT ----- Pre-cath CXR without acute findings. documented in this encounter Plan of Treatment Upcoming Encounters Date Type Department Care Team (Latest Contact Info) Description 08/10/2023 9:00 AM EDT Hospital Encounter CRS Waiting [facility], Cardiac Recovery Suite Waiting Unit, [address] [place] [address] Pat Monroy MD [address] [place] [address] 08/10/2023 9:00 AM EDT - 08/10/2023 10:00 AM EDT Surgery CRS Waiting [facility], Cardiac Recovery Suite Waiting Unit, [address] [place] [address] Pat Monroy MD [address] [place] [address] CORONARY ANGIOGRAPHY W/LEFT HEART CATH 08/10/2023 9:00 AM EDT Office Visit Cardiology [facility] [place] [address] [place] [address] [facility] [address] [place] [address] 08/27/2023 8:15 AM EST Cardiac Studies [facility], [facility] [address] [facility] [address] 09/14/2023 4:00 PM EST Office Visit [facility] [address] [place] [id number] Wade Bragg MD [address] [place] [address] 09/21/2023 8:00 AM EST Office Visit Cardiology, [facility] [address] [place] [address] Carmen Hutton PA-C [address] [place] [address] Scheduled Procedures Name Priority Associated Diagnoses Date/Ti [...] Advance Directives occurred with: Patient Care Teams Personal Injury Law Specialist Relationship Specialty Start Date End Date Wade Bragg MD [address] [facility] [place] [address] PCP - General Family Medicine 03/24/18 documented as of this encounter
--- OUTSIDE RECORDS SUMMARY | 2023-10-22 08:01 | External Medical Summary ---
Author Name Unknown Address Unknown Organization [id number] [address] [place] [id number] Laboratory Report Ordering Provider Test Date Status MYRIAM FARNSWORTH 07/30/2023 14:18:26 Final Observation Date Value Abnormality Reference (Units ) Status Albumin 07/30/2023 14:18:26 4.4 3.8-5.0 (g/dL) Final AST (Aspartate aminotransferase) 07/30/2023 14:18:26 33 10-50 (U/L) Final Alk Phos 07/30/2023 14:18:26 85 35-130 (U/L) Final ALT (Alanine aminotransferase) 07/30/2023 14:18:26 41 10-50 (U/L) Final Bilirubin, Total 07/30/2023 14:18:26 0.3 <=1.2 (mg/dL) Final Bilirubin, Direct 07/30/2023 14:18:26 <0.2 0.0-0.3 (mg/dL) Final Protein 07/30/2023 14:18:26 6.7 6.0-8.3 (g/dL) Final Performing Location [facility] [place] [id number]
--- OUTSIDE RECORDS SUMMARY | 2023-10-22 08:01 | External Medical Summary ---
Author Name Unknown Address Unknown Organization [id number] [facility] [address] [place] [id number] Laboratory Report Ordering Provider Test Date Status MALINI BENOIT 07/30/2023 14:18:26 Final Anticoagulation may affect t esting. Refer to [facility] Test Catalog for a list of effects. Observation Date Value Abnormality Reference (Units ) Status aPTT panel - Platelet poor plasma 07/30/2023 14:18:26 28 21-38 (seconds) Final Performing Location [facility] [address] [place] [id number]
--- OUTSIDE RECORDS SUMMARY | 2023-10-22 08:01 | External Medical Summary | Summary of Care ---
Author Name Unknown Organization [facility] Address [address] [place] [address] Phone [phone] Care Team Providers Care Deputy Director Of Nursing Name Role Phone Wade Bragg MD Primary Care Provider +1- [phone] Reason for Visit * Reason Onset Date Comments Hospital Follow-Up 07/13/2023 [facility] 07/12 Encounter Details Date Type Department Care Team Description 07/13/2023 Telephone Ancillary Department, [place] [address] [place] [address] Chana Whitfield, RN Hospital Follow-Up ([facility] 07/12) Allergies No known active allergiesdocumented as of this encounter (statuses as of 07/15/2023) Medications Medication Sig Dispensed Refills Start Date End Date Status Aspirin 81 MG Oral Tablet Delayed Release (Aspirin Low Dose) Take by mouth 1 Tablet in the morning. In the morning.. 90 Tablet 3 08/06/2022 Active Sertraline HCl 50 MG Oral Tablet (Zoloft)Indications:G eneralized anxiety disorder Take by mouth 1 Tablet in the morning. 90 Tablet 3 08/06/2022 Active Nitroglycerin 0.4 MG Sublingual Tablet Sublingual (Nitrostat)Indication s:Coronary artery disease involving [place] coronary artery of [place] heart without angina pectoris Place under the tongue 1 Tablet every 5 minutes as needed for Pain, Chest. up to 3 doses in 15 minutes 25 Tablet 11 08/06/2022 Active Famotidine 40 MG Oral Tablet (Pepcid)Indications:B arrett's esophagus without dysplasia,Gastroesoph ageal reflux disease without esophagitis Take by mouth 1 Tablet before bedtime. 90 Tablet 3 08/06/2022 Active Ezetimibe 10 MG Oral Tablet (Zetia)Indications:Co ronary artery disease involving [place] coronary artery of [place] heart without angina pectoris,Dyslipidemia , goal LDL below 130,Old AL (myocardial infarction) Take by mouth 1 Tablet [...] the morning. 90 Tablet 3 08/06/2022 Active Ondansetron 4 MG Oral Tablet Disintegrating (Zofran) Place 1 Tablet (4 mg) on tongue every 8 hours as needed for Nausea. dissolve on tongue. 20 Tablet 1 09/15/2022 Active Brilinta 90 MG Oral TabletIndications:NST MARY (non-ST elevation myocardial infarction) (HCC) Take 1 Tablet by mouth in the morning and 1 Tablet before bedtime. 180 Tablet 3 03/25/2023 Active Dicyclomine HCl 10 MG Oral Capsule (Bentyl) take 1 capsule by mouth twice a day if needed for abdominal pain 60 Capsule 5 03/30/2023 Active Metoprolol Succinate ER 25 MG Oral Tablet Extended Release 24 Hour (toPROL XL) Take 0.5 Tablets by mouth in the morning and 0.5 Tablets before bedtime. 90 Tablet 3 06/21/2023 Active Spironolactone 25 MG Oral Tablet (Aldactone) Take 0.5 Tablets by mouth in the morning. 45 Tablet 3 06/21/2023 Active Isosorbide Mononitrate ER 30 MG Oral Tablet Extended Release 24 Hour (Imdur) Take 1 Tablet by mouth in the morning. 0 07/11/2023 Active Sucralfate 1 GM Oral Tablet (Carafate) Take 1 Tablet by mouth 4 times a day before meals and at bedtime. 0 07/12/2023 Active oxyCODONE HCl 5 MG Oral Tablet (Oxy IR) Take 1 Tablet by mouth every 6 hours as needed. 0 07/12/2023 Active Hospital, Clinic, or Other Facility Administered Medication Ordered Dose Route Frequency Start Date End Date Status albuterol sulfate (PROVENTIL) (2.5 MG/3ML) 0.083% inhalation solution 2.5 mgIndications:SOB (shortness of breath) 2.5 mg NEBULIZER Q4H PRN 03/02/2019 Act rolanda documented as of this encounter (statuses as of 07/15/2023) Active Problems Problem Noted Date Ischemic cardiomyopathy 06/22/2023 NSVT (nonsustained ventricular tachycard ia) 06/22/[address] elevation myocardial infar ction (STEMI) 06/22/2023 HFrEF (heart failure with reduced ejecti on fraction) 06/22/[address] elevation myocardial infarction (STEMI) 05/28/2023 S/P angioplasty with stent 05/28/2023 Gastroesophageal reflux disease with eso phagitis without hemorrhage 12/16/2020 Old AL (myocardial infarction) 8 Coronary artery disease invo lving [place] coronary artery of [place] heart without angina pectoris 06/27/2018 History of acute pancreatitis 06/27/2018 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 Myg message sent to pt asking him tocall me. * Telephone Encounter - Chana Whitfield RN - 07/13/2023 1:11 PM EDT Transitions of Care Note Reason for Referral:Recent Admission Phone visit for follow up: DANIEL Admitted to: [facility], Date: 07/09 Discharged to: home, Date: 07/12 Diagnosis driving hospitalization: Angina Ischemic Cardiomyopathy Message left on voicemail. He can be transferred to or at [phone] if he reaches the call center. Thank you. documented in this encounter Plan of Treatment Upcoming Encounters Date Type Specialty Care Team Description 08/27/2023 Cardiac Studies Cardiac Studies 09/14/2023 Office Visit Family Medicine Wade Bragg MD [address] [place] [facility] [place] [address] 10/29/2023 Office Visit Cardiology Carmen Hutton PA-C [address] [place] [address] Scheduled Procedures Name Priority Associated Diagnoses Date/Ti or ESOPHAGOGASTRODUODENOSCOPY ( EGD), FLEXIBLE, TRANSORAL, DIAGNOSTIC Recall 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 COLONOSCOPY FLEXIBLE PROXIMAL DIAGNOSTIC Recall History of colonic polyps Health Maintenance Due Date Last Done Comments DISCUSS TOBACCO CESSATION (REFER TO SMARTSET #0497) 1970 COVID-19 Vaccine (#1) 03/21/1970 Pneumococcal Vaccine: [...] Advance Directives occurred with: Patient Care Teams Deputy Director Of Nursing Relationship Specialty Start Date End Date Wade Bragg MD [address] [place] [address] PCP - General Family Medicine 03/24/18 documented as of this encounter
--- OUTSIDE RECORDS SUMMARY | 2023-10-22 08:01 | External Medical Summary ---
Author Name Unknown Address Unknown Organization : Laboratory Report Ordering Provider Test Date Status RENETTA CATES 08/10/2023 10:41:56 Final NORMAL (NON-HEPARINIZED) 74- 137 SECONDS
HEPARINIZED 200+ SECONDS
CRITICAL GREATER THAN 1000 SECONDS
null Observation Date Value Abnormality Reference (Units ) Status Kaolin activated time [Units/volume] in Blood 08/10/2023 10:41:56 317 50-1000 (secs) Final Performing Location
--- OUTSIDE RECORDS SUMMARY | 2023-10-22 08:01 | External Medical Summary ---
Author Name Unknown Address Unknown Organization [id number]:[facility] [address] [place] [address] Laboratory Report Ordering Provider Test Date Status MALINI BENOIT 07/30/2023 14:18:26 Final Observation Date Value Abnormality Reference (Units ) Status SYNC LEUKOCYTES IN BLOOD BY AUTOMATED COUNT 07/30/2023 14:18:26 6.34 4.00-10.80 (K/uL) Final Segs 07/30/2023 14:18:26 57.0 40.0-75.0 (%) Final Lymphs % 07/30/2023 14:18:26 33.4 18.0-42.0 (%) Final Monos 07/30/2023 14:18:26 6.9 1.0-11.0 (%) Final Eosinophils 07/30/2023 14:18:26 2.2 0.0-6.0 (%) Final Basos 07/30/2023 14:18:26 0.5 0.0-2.0 (%) Final Absolute Segs 07/30/2023 14:18:26 3.61 1.80-7.70 (K/uL) Final Lymphs, absolute 07/30/2023 14:18:26 2.12 1.00-4.80 (K/ul) Final Monos, Abs 07/30/2023 14:18:26 0.44 0.00-1.10 (K/uL) Final Eos, Abs 07/30/2023 14:18:26 0.14 0.00-0.70 (K/uL) Final Basos, Abs 07/30/2023 14:18:26 0.03 0.00-0.20 (K/uL) Final Performing Location [facility] [place] [address] [place] [address]
--- OUTSIDE RECORDS SUMMARY | 2023-10-22 08:02 | External Medical Summary | Summary of Care ---
Author Name Unknown Organization [facility] [address] [facility] [facility] [address] Phone [phone] Care Team Providers Care Expediter Clerk Name Role Phone Wade Bragg MD Primary Care Provider [phone]- [phone] Encounter Details Date Type Department Care Team Description 07/09/2023 Result Scan Unspecified Department Herb Tamez, DO [address] [place] [id number] <No scans attached> Allergies No known active allergiesdocumented as of this encounter (statuses as of 07/12/2023) Medications Medication Sig Dispensed Refills Start Date [...] Tablet Sublingual (Nitrostat)Indication s:Coronary artery disease involving [place] coronary artery of [place] heart without angina pectoris Place under the [...] Oral Tablet (Zetia)Indications:Co ronary artery disease involving [place] coronary artery of [place] heart without angina pectoris,Dyslipidemia , goal LDL below 130,Old [place] (myocardial infarction) [...] the morning. 45 Tablet 3 06/21/2023 Active Hospital, Clinic, or Other Facility Administered Medication Ordered Dose Route Frequency Start Date End Date Status albuterol sulfate (PROVENTIL) (2.5 MG/3ML) 0.083% inhalation solution 2.5 mgIndications:SOB (shortness of breath) 2.5 mg NEBULIZER Q4H PRN 03/02/2019 Act [place] documented as of this encounter (statuses as of 07/12/2023) Active Problems Problem Noted Date Ischemic cardiomyopathy 06/22/2023 NSVT (nonsustained ventricular tachycard ia) 06/22/[address] elevation myocardial infar ction (STEMI) 06/22/2023 HFrEF (heart failure with reduced ejecti on fraction) 06/22/[address] elevation myocardial infarction (STEMI) 05/28/2023 S/P angioplasty with stent 05/28/2023 Gastroesophageal reflux disease with eso phagitis without hemorrhage 12/16/2020 [place] (myocardial infarction) 8 Coronary artery disease invo lving white [place] coronary artery of [place] heart without angina pectoris 06/27/2018 History of acute pancreatitis 06/27/2018 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 Dyslipidemia, goal LDL below 70 09/18/20 13 Generalized anxiety disorder 03/09/2013 Tobacco use disorder 01/03/2013 documented as of this encounter (statuses as of 07/12/2023) Resolved Problems Problem Noted Date Resolved Date [...] as of this encounter (statuses as of 07/12/2023) Immunizations Name Administration Dates Next Due Hepatitis [...] Encounters Date Type Specialty Care Team Description 07/16/2023 Office Visit Family Medicine Josh Salomon MD [address] [place] [address] 08/27/2023 Cardiac Studies Cardiac Studies 09/14/2023 Office Visit Family Medicine Wade Bragg MD [address] [place] [address] 10/29/2023 Office Visit Cardiology Carmen Hutton PA-C [address] [place] [id number] Scheduled Procedures Name Priority Associated Diagnoses Date/Ti me ESOPHAGOGASTRODUODENOSCOPY ( EGD), FLEXIBLE, TRANSORAL, DIAGNOSTIC Recall 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 COLONOSCOPY FLEXIBLE PROXIMAL DIAGNOSTIC Recall History of colonic polyps Health Maintenance Due Date Last Done Comments DISCUSS TOBACCO CESSATION (REFER TO SMARTSET #5884) 1970 COVID-19 Vaccine (#1) 03/21/1970 Pneumococcal Vaccine: [...] Procedure Name Priority Date/Time Associated Diagnosis Comments ECHOCARDIOLOGY SCANNED RESULT 07/09/2023 documented in this encounter Results * ECHOCARDIOLOGY SCANNED RESULT (07/09/2023) 07/09/2023 Herb Tamez DO ECHOCARDIOLOGY documented in this encounter Advance Directives Latest Code Status on File Code Status Date Activated Date Inactivated Comments Full Code 08/14/2022 1:00 AM 08/17/2022 2:38 PM This order reflects the patients wishes and were consensually agreed upon. Question Answer Comments Discussion of Advance Directives occurred with: Patient Care Teams Expediter Clerk Relationship Specialty Start Date End Date Wade Bragg MD [address] [place] [address] PCP - General Family Medicine 03/24/18 documented as of this encounter
--- OUTSIDE RECORDS SUMMARY | 2023-10-22 08:02 | External Medical Summary ---
Author Name Unknown Address Unknown Organization [id number]:[facility] [place] [address] [place] [address] Laboratory Report Ordering Provider Test Date Status DAJAMYRIAM 06/21/2023 15:37:27 Final Observation Date Value Abnormality Reference (Units ) Status LDL, (direct) 06/21/2023 15:37:27 31 <=129 (mg/dL) Final LDL Cholesterol Reference Ra nges (mg/dL):
<70 Target level for high risk ASCVD patient
<100 Optimal for general population
100-129 Near optimal for general population
130-159 Borderline high
160-189 High
>=190 Very high Performing Location LAB[facility]ATORY [facility] - [address] [place] [address]
--- OUTSIDE RECORDS SUMMARY | 2023-10-22 08:02 | External Medical Summary | Summary of Care ---
Author Name Unknown Organization [facility] Address [address] [facility] [place] [address] Phone [phone] Care Team Providers Care Transformer Inspector Name Role Phone Wade Bragg MD Primary Care Provider +1- [phone] Reason for Visit * Reason Onset Date Comments Test Results 06/29/2023 Encounter Details Date Type Department Care Team Description 06/29/2023 Telephone Cardiology, [facility] [address] [place] [id number] Carmen Hutton PA-C [address] [place] [id number] Test Results Allergies No known active allergiesdocumented as of this encounter (statuses as of 06/29/2023) Medications Medication Sig Dispensed Refills Start Date [...] Tablet Sublingual (Nitrostat)Indication s:Coronary artery disease involving [place] coronary artery of [place] heart without angina pectoris Place under the [...] Oral Tablet (Zetia)Indications:Co ronary artery disease involving [place] coronary artery of [place] heart without angina pectoris,Dyslipidemia , goal LDL below 130,Old [place] (myocardial infarction) Take by mouth 1 Tablet [...] as of this encounter (statuses as of 06/29/2023) Active Problems Problem Noted Date Ischemic cardiomyopathy 06/22/2023 NSVT (nonsustained ventricular tachycard ia) 06/22/[address] elevation myocardial infar ction (STEMI) 06/22/2023 HFrEF (heart failure with reduced ejecti on fraction) 06/22/[address] elevation myocardial infarction (STEMI) 05/28/2023 S/P angioplasty with stent 05/28/2023 Gastroesophageal reflux disease with eso phagitis without hemorrhage 12/16/2020 [place] (myocardial infarction) 8 Coronary artery disease invo lving [place] coronary artery of [place] heart without angina pectoris 06/27/2018 History of acute pancreatitis 06/27/2018 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 Dyslipidemia, goal LDL below 70 09/18/20 13 Generalized anxiety disorder 03/09/2013 Tobacco use disorder 01/03/2013 documented as of this encounter (statuses as of 06/29/2023) Resolved Problems Problem Noted Date Resolved Date [...] as of this encounter (statuses as of 06/29/2023) Immunizations Name Administration Dates Next Due Hepatitis B, 20+ yrs 08/24/2011,04/09/2011,03/05 PPD 08/10/2014 Seasonal Influenza, PF, 6 mo ns & Above, IM , (Flulaval) 08/17/2022(Deferred: Patient Refused) TDAP (age 11 and [...] Telephone Encounter - Poppy Mendoza CMA - 06/29/2023 11:31 AM EDT Portal message sent to pt. Lab order placed for 6 weeks * Telephone Encounter - Poppy Mendoza CMA - 06/29/2023 11:29 AM EDT ----- Message from Carmen Hutton PA-C sent at 06/24/2023 4:00 PM EDT ----- Improved renal function Normal electrolytes, including magnesium. AST/ALT slightly high. Avoid alcohol and excessive tylenol use. LDL cholesterol greatly improved. Repeat LFT's in about 6 weeks. No changes at this time documented in this encounter Plan of Treatment Upcoming Encounters Date Type Specialty Care Team Description 07/12/2023 Office Visit Gastroenterology Taylor Boyer CRNP [address] [place] [address] 08/27/2023 Cardiac Studies Cardiac Studies 09/14/2023 Office Visit Family Medicine Wade Bragg MD [address] [place] [id number] 10/29/2023 Office Visit Cardiology Carmen Hutton PA-C [address] [place] [address] Scheduled Orders Name Type Priority Associated Diagnoses Orde r Schedule HEPATIC FUNCTION PANEL Lab Routine Elevated LFTs Expected: 08/10/2023, Expires: 06/29/2024 Scheduled Procedures Name Priority Associated Diagnoses Date/Ti [...] of this encounter Visit Diagnoses Diagnosis Elevated LFTs- Primary Other abnormal blood chemistry documented in this encounter Advance Directives Latest Code Status on File Code Status Date Activated Date Inactivated Comments Full Code 08/14/2022 1:00 AM 08/17/2022 2:38 PM This order reflects the patients wishes and were consensually agreed upon. Question Answer Comments Discussion of Advance Directives occurred with: Patient Care Teams Transformer Inspector Relationship Specialty Start Date End Date Wade Bragg MD [address] [place] [address] PCP - General Family Medicine 03/24/18 documented as of this encounter
--- OUTSIDE RECORDS SUMMARY | 2023-10-22 08:02 | External Medical Summary | Summary of Care ---
Author Name Unknown Organization [facility] Address [address] [place] [address] Phone [phone] Care Team Providers Care Ager Operator Name Role Phone Wade Bragg MD Primary Care Provider [phone]- [phone] Reason for Referral * Precert (Within 10 days (routine)) - Pending Review Specialty Diagnoses / Procedures Referred By Contac t Referred To Contact Cardiac Studies Diagnoses Coronary artery disease involving [place] coronary artery of [place] heart without angina pectoris NSVT (nonsustained ventricular tachycardia) (HCC) Ischemic cardiomyopathy Dyslipidemia, goal LDL below [address] elevation myocardial infarction (STEMI) Procedures ECHO, COMPLETE (2D), TRANS-THORACIC Carmen Hutton PA-C [address] [place] [address] Referral ID Status Reason Start Date Expiration Date Visits Requested Visits Authorized [id number] Pending Review Precert 06/21/2023 999 999 Reason for Visit * Reason Comments Hospital Follow-Up [facility] 06/07-06/08/23 an d 05/20-05/24/23. Cardiac Cath 05/20/23. Zio placed 06/17/23. End of last week took nitro to help with chest pain- none since. Palpitations no worse then prior. SOB a little worse then prior. Denies edema and dizziness. Encounter Details Date Type Department Care Team Description 06/21/2023 Office Visit Cardiology, [facility] [address] [place] [address] Carmen Hutton PA-C [address] [place] [id number] Coronary artery disease involving [place] coronary artery of [place] heart without angina pectoris*; NSVT (nonsustained ventricular tachycardia) (HCC); Ischemic cardiomyopathy; Dyslipidemia, goal LDL below 70; History of ST elevation myocardial infarction (STEMI); HFrEF (heart failure with reduced ejection fraction) ([facility]) Allergies No known active allergiesdocumented as of this encounter (statuses as of 06/22/2023) Medications Medication Sig Dispensed Refills Start Date [...] Tablet Sublingual (Nitrostat)Indicatio ns:Coronary artery disease involving [place] coronary artery of [place] heart without angina pectoris Place under the [...] Oral Tablet (Zetia)Indications:C oronary artery disease involving [place] coronary artery of [place] heart without angina pectoris,Dyslipidemi a, goal LDL below 130,Old OK (myocardial infarction) Take by mouth 1 Tablet [...] 1 09/15/2022 Active Brilinta 90 MG Oral TabletIndications:NS ANT [...] the morning. 45 Tablet 3 06/21/2023 Active Metoprolol Succinate ER 25 MG Oral Tablet Extended Release 24 Hour (toPROL XL) Take by mouth 1 Tablet in the morning. 90 Tablet 3 08/06/2022 3 Discontinue d(Refill) Spironolactone 25 MG Oral Tablet Take 1 Tablet by mouth in the morning. 0 3 Discontinue d(Refill) Hospital, Clinic, or Other Facility Administered Medication Ordered Dose Route Frequency Start Date End Date Status albuterol sulfate (PROVENTIL) (2.5 MG/3ML) 0.083% inhalation solution 2.5 mgIndications:SOB (shortness of breath) 2.5 mg NEBULIZER Q4H PRN 03/02/2019 Act rolanda documented as of this encounter (statuses as of 06/22/2023) Active Problems Problem Noted Date Ischemic cardiomyopathy 06/22/2023 NSVT (nonsustained ventricular tachycard ia) 06/22/[address] elevation myocardial infar ction (STEMI) 06/22/2023 HFrEF (heart failure with reduced ejecti on fraction) 06/22/[address] elevation myocardial infarction (STEMI) 05/28/2023 S/P angioplasty with stent 05/28/2023 Gastroesophageal reflux disease with eso phagitis without hemorrhage 12/16/2020 Old OK (myocardial infarction) 8 Coronary artery disease invo lving [place] coronary artery of [place] heart without angina pectoris 06/27/2018 History of acute pancreatitis 06/27/2018 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 Dyslipidemia, goal LDL below 70 09/18/20 13 Generalized anxiety disorder 03/09/2013 Tobacco use disorder 01/03/2013 documented as of this encounter (statuses as of 06/22/2023) Resolved Problems Problem Noted Date Resolved Date [...] as of this encounter (statuses as of 06/22/2023) Immunizations Name Administration Dates Next Due Hepatitis [...] Sign Reading Time Taken Comments Blood Pressure 116/74 06/21/2023 2:48 PM EDT Pulse 84 06/21/2023 2:48 PM EDT Temperature - - Respiratory Rate 16 06/21/2023 2:48 PM EDT Oxygen Saturation - - Inhaled Oxygen Concentration - - Weight 56.5 kg (124 lb 8 oz) 06/21/2023 2:48 PM EDT Height - - Body Mass Index 20.74 08/14/2022 2:08 AM EDT documented in this encounter Progress Notes * Carmen Hutton PA-C - 06/21/2023 2:54 PM EDT Images from the original note were not included. 06/21/2023 Cardiology Hospital F/U: HPI: Patient is a 52-year-old male here today for close cardiology hospital follow-up. Last clinic evaluation approximately 8 months ago with the undersigned. Former patient of Dr. Figueroa. Now known to Dr. Tamez/Dr. Marshall in the inpatient settings. History includes: 1. Coronary artery disease status post PCI to the RCA in the setting of a [id number]-[id number] elevation OK. 2. Inferior STEMI/100% acute distal circumflex occlusion at bifurcation with large PLB 3. Moderate nonobstructive non-culprit coronary artery disease -50 to 60% mid LAD (unchanged from 10/2018) - Widely patent RCA stents 4. PCI to OM1 December 2020 in the setting of syncope and transient Mobitz 2 heart block 5. Admission in May 2023 with STEMI with thrombosis of the prior stent to OM1, S/P PCI of the OM1 with 1 MELLY. Attempt to open the distal AV groove circumflex was unsuccessful. LVEF 25% 6. History of PAF 7. History of non sustained VT 8. Residual 60% mid-LAD stenosis with an FFR of 0.85. 9. Ongoing tobacco abuse. 10. Anxiety. Since last office visit patient was admitted x2 to [facility]. Records reviewed in detail. Recent hospitalization on 05/20/2023 due to left circumflex territory STEMI. Patient underwent cardiac catheterization. Culprit lesion secondary to thrombus of the prior stent train in the left circumflex and with involvement of previously untreated large OM1. Successful PCI of the AV groove circumflex into the large trifurcating OM1 with implantation of a large caliber drug-eluting stent. Unsuccessful attempt to reopen the previously placed long stent train in the mid to distal AV groove circumflex and a branch of that vessel. Note: Patient had a previous episode of stent thrombosis in the long stent train on his prior catheterization in September 2022. At that time it was noted that it was unlikely that there would be long-term patency because of poor myocardial blush. Moderate coronary disease in the LAD with patent stents in the RCA. An echocardiogram was obtained post cath (05/20/2023) showing a new severely reduced LV ejection fraction of 25 to 30% (previously 50 to 55%). A large size posterior, inferior, inferior septal wall motion abnormality was noted. The posterior wall was akinetic in the inferior wall and inferior septalwall were hypokinetic. Patient was discharged on appropriate medical therapies including ASA, Brilinta, Crestor, metoprolol succinate 25 mg, Zetia, and spirolactone. Approx 3 weeks later patient was readmitted for chest tightness,dizziness, and palpitations. EMS was summoned and apparently patient had run of nonsustained VT during evaluation in ambulance. Symptoms resolved with SL nitro. Repeat echo demonstrated mildly improved LVEF at 35-40%. HS troponin minimally elevated but flat, without concerns for ACS. Metoprolol succinate was changed to 12.5 mg BID and spironolactone reduced to 12.5 mg daily due to hypotension. He was discharged with live ZIO monitor He presents today feeling well. No recent or recurrent chest pain. Taking meds as prescribed. Wearing live ZIO without arrhythmias or alerts in the last few days. Taking meds as prescribed. He is nearly 6 weeks post STEMI. Anxious to return to walk. 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 Nothing too strenuous. Able to take breaks if needed. Has been walking for exercise. Not interested in cardiac rehab. No chest pain, palpitations, dizziness, syncope or near syncope. No orthopnea, PND, or increased lower extremity edema. No fever, chills, cough, hematochezia, melena, or hemoptysis. Review of Systems: See HPI for pertinent positives. All others negative, other than those noted in HPI. Patient Active Problem List Diagnosis Code Tobacco use disorder F17.200 Generalized anxiety disorder F41.1 Dyslipidemia, goal LDL below 130 E78.5 Casanova esophagus K22.70 Old OK (myocardial infarction) I25.2 Coronary artery disease involving [place] coronary artery of [place] heart without angina pectoris I25.10 History of acute pancreatitis Z87.19 Gastroesophageal reflux disease with esophagitis without hemorrhage K21.[address] elevation myocardial infarction (STEMI) ([facility]) I21.3 S/P angioplasty with stent Z95.820 Social History Tobacco Use Smoking status: Every Day Packs/day: 0.25 Years: 31.00 Pack years: 7.75 Types: Cigarettes Passive exposure: Current Smokeless tobacco: Never Tobacco comments: 2-3 cig/day as of 12/23/20 Vaping Use Vaping Use: Never used Substance Use Topics Alcohol use: Not Currently Comment: last 2015 Drug use: No Comment: pepsi- 6 pack per day Allergies as of 06/21/2023 (No Known Allergies) Current Outpatient Medications Medication Sig Dispense Refill Aspirin 81 MG Oral Tablet Delayed Release (Aspirin Low Dose) Take by mouth 1 Tablet in the morning.In the morning.. 90 Tablet 3 Sertraline HCl 50 MG Oral Tablet (Zoloft) Take by mouth 1 Tablet in the morning. 90 Tablet 3 Nitroglycerin 0.4 MG Sublingual Tablet Sublingual (Nitrostat) Place under the tongue 1 Tablet every5 minutes as needed for Pain, Chest. up to 3 doses in 15 minutes 25 Tablet 11 Famotidine 40 MG Oral Tablet (Pepcid) Take [...] 1 Tablet before bedtime. 180 Tablet 3 Metoprolol Succinate ER 25 MG Oral Tablet Extended Release 24 Hour (toPROL XL) Take 0.5 Tablets by mouth in the morning and 0.5 Tablets before bedtime. 90 Tablet 3 Spironolactone 25 MG Oral Tablet (Aldactone) Take 0.5 Tablets by mouth in the morning. 45 Tablet 3 Ondansetron 4 MG Oral Tablet Disintegrating (Zofran) Place 1 Tablet (4 mg) on tongue every 8 hours as needed for Nausea. dissolve on tongue. 20 Tablet 1 Dicyclomine HCl 10 MG Oral Capsule (Bentyl) take 1 capsule by mouth twice a day if needed for abdominal pain 60 Capsule 5 Current Facility-Administered Medications Medication Dose Route Frequency Provider Last Rate Last Admin albuterol sulfate (PROVENTIL) (2.5 MG/3ML) 0.083% inhalation solution 2.5 mg 2.5 mg Nebulizer Q4H PRN Shant Raymond MD 2.5 mg at 03/08/19 1429 PHYSICAL EXAM: Vital Signs: BP 116/74 | Pulse 84 | Resp 16 | Wt 56.5 kg (124 lb 8 oz) | BMI 20.74 kg/m | BSA 1.61 m Blood pressure my repeat 116/72 General: Awake, alert and oriented x 3. No acute distress. HEENT: Normocephalic, atraumatic. Pupils equal, round and reactive to light and accommodation. Extraocular muscles are intact. Anicteric sclera. Moist mucous membranes. Neck: No JVD. No bruit. Cardiovascular: Regular. Positive S-4. Normal S-1 and S-2. No S-3. No murmurs or rubs. Pulmonary: Clear to auscultation bilaterally. No rales, rhonchi, or wheezing. Abdomen: Bowel sounds x 4, soft. No rebound, guarding or tenderness. No organomegaly. Extremities: No clubbing, cyanosis or edema. +2 pedal pulses bilaterally. Skin: Warm and dry. Cardiac studies/labs: Echo report reviewed dated June 08, 2023: Echo report reviewed dated May 20, 2023: Cardiac cath report reviewed dated 05/20/23: Coronary Anatomy Dominant: Co-Dominant Left Main (% Stenosis): Normal LAD (% Stenosis): Ostial (40 to 50%) and Proximal (50 to 70%) D1 (% Stenosis): Normal Circumflex (% Stenosis): Proximal (100% just before ostium of OM) RCA (% Stenosis): Proximal (Stent patent, less than 10% in-stent restenosis), Mid (Diffuse mild) and Distal (Stent patent) R PDA (% Stenosis): Normal R PL1 (% Stenosis): Normal Summary: 1. Acute ST elevation OK secondary to thrombosis of the prior stent train and involvement of the previously untreated large OM1. 2. Moderate coronary disease in the LAD. 3. Patent stents in the RCA 4. Successful PCI of the AV groove circumflex into the large trifurcating OM1 with implantation of a large caliber drug-eluting stent. 5. Unsuccessful attempt to reopen the previously placed long stent train in the mid to distal AV groove circumflex and a branch of that vessel. Note: Patient had a previous episode of stent thrombosis in the long stent train on his prior catheterization in September 2022. At that time it was noted that it was unlikely that there would be long-term patency because of poor myocardial blush. 6. Patient will remain on dual antiplatelet therapy with aspirin and Brilinta. We will also keep him on heparin drip for 24 hours in hopes that the stent train may recanalize if the thrombus breaks down. Cardiac cath report reviewed dated 10/10/22: Coronary Anatomy Dominant: Co-Dominant Left Main (% Stenosis): Normal (Mild) LAD (% Stenosis): Ostial (40 to 50%) and Proximal (50 to 70%) D1 (% Stenosis): Normal Circumflex (% Stenosis): Proximal (Mild) and Mid (100%. ROBIN 0 flow) RCA (% Stenosis): Proximal (Mild diffuse. Prior stent patent with 10% in-stent restenosis), Mid (Diffuse mild) and Distal (Prior stent patent. Mild [place] vessel disease.) R PDA (% Stenosis): Normal Summary: Reocclusion of previously stented circumflex into the posterolateral branch. Successful PCI with the addition of 1 drug-eluting stent proximally and PTCA throughout the previously placed stent train. Angiographically reasonable results. Moderate disease in the LAD is angiographically unchanged from previous. Previously placed RCA stents remain patent. Patient will remain on Integrilin drip for 12 hours. He will remain on aspirin 81 mg daily. His Brilinta will be increased to 90 mg P.O. twice daily. Guideline directed medical therapy we will continue with high intensity statin, beta-shay, plus or minus JOYCE inhibitor/ARB. Echocardiogram report reviewed dated October 10, 2022 at [facility]: Compared to prior study, changes are noted. Ejection fraction 50-55%. There is a large size septal, inferior, posterior, and lateral wall motion abnormality with hypokinesis to akinesis of the segments. There is mild MR. IMPRESSION: CAD with recent STEMI. Repeat stent to the left Cx. LVEF 25%, improving to 35- 40%. Medications limited due to hypotension Chronic tobacco abuse - trying to quit HFrEF Paroxysmal VT continue metoprolol. ZIO pending Hypertension, controlled Dyslipidemia History of Transient Mobitz 2 heart block resulting in syncope, pancreatitis RECOMMENDATIONS: Patient recovering post STEMI. Increasing activities as tolerated. No crescendo angina. Tolerating medications. LVEF improved to 35-40%. Would no longer be candidate for ICD therapy as long as EF remains > 35% He is on appropriate medical therapies. Continue ZIO over the next few weeks and R/O arrhythmias. Consider amiodarone if he does not tolerate higher dose beta shay, however he does have liver issues. Plan to repeat echo again in 2-3 months to reassess LVEF. He appears euvolemic and currently tolerating medications. Repeat labs including electrolytes - magnesium and potassium. LDL goal < 70. Smoking cessation strongly encouraged. We dicussed work duties and acceptable to return. He should keep SL nitro with him and take breaks as needed, which he reports is acceptable in his current positional and will not be an issue. I spent a total of 60 minutes on the date of service in preparation, delivery, and documentation ofthe care provided to Oc Cazares excluding any time spent in the performance of separately billedservices. The patient agrees to the above plan and will call with additional questions or concerns. ER with all emergencies advised. Follow-up: Return in about 3 months (around 2023). | Check-out note: Blood work today Schedule echo in about 2 months [address] Tamez (imaging) or Brennen Hutton PA-C Department of Cardiology This chart was completed in part utilizing [employer] Speech Voice Recognition Software. Grammatical errors, random [...] documented in this encounter Nursing Notes * Antoni Lowery LPN - 06/21/2023 2:47 PM EDT Patient identified by full name and date of Chief Complaint Patient presents with Hospital Follow-Up [facility] 06/07-06/08/23 and 05/20-05/24/23. Cardiac Cath 05/20/23. Zio placed 06/17/23. End of last week took nitro to help with chest pain- none since. Palpitations no worse then prior. SOB a little worse thenprior. Denies edema and dizziness. Examination Room: Name: Oc Cazares Date of : (1970). Reason for Visit: HD follow up Interim Hospitalization(s): [facility] 06/07-06/08/23 Problems/Concerns: See chief complaint Chest Pain/SOB: See chief complaint [facility] Discussed: Not applicable [facility] is a way you can talk to [...] Visit Gastroenterology Taylor Boyer CRNP [address] [place] [id number] 08/27/2023 Cardiac Studies Cardiac Studies 09/14/2023 Office Visit Family Medicine Wade Bragg MD [address] [place] [address] 10/29/2023 Office Visit Cardiology Carmen Hutton PA-C [address] [place] [id number] Scheduled Orders Name Type Priority Associated Diagnoses Orde r Schedule ECHO, COMPLETE (2D), TRANS-THORACIC Echocardiology Routine Coronary artery disease involving [place] coronary artery of [place] heart without angina pectoris NSVT (nonsustained ventricular tachycardia) (HCC) Ischemic cardiomyopathy Dyslipidemia, goal LDL below [address] elevation myocardial infarction (STEMI) Expected: 06/21/2023 (Approximate), Expires: 06/21/2024 Scheduled Procedures Name Priority Associated Diagnoses Date/Ti me ESOPHAGOGASTRODUODENOSCOPY ( EGD), FLEXIBLE, TRANSORAL, DIAGNOSTIC Recall 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 COLONOSCOPY FLEXIBLE PROXIMAL DIAGNOSTIC Recall History of colonic polyps Health Maintenance Due Date Last Done Comments DISCUSS TOBACCO CESSATION (REFER TO SMARTSET #329) 1970 COVID-19 Vaccine (#1) 03/21/1971 Pneumococcal Vaccine: [...] filedocumented as of this encounter Results * LDL CHOLESTEROL (DIRECT MEASURE) (06/21/2023 3:37 PM EDT) LDL Cholesterol (Direct Measure) 31 <=129 mg/dL 06/21/2023 11:24 PM EDT [facility] Comment: LDL Cholesterol Reference Ranges (mg/dL): <70 Target level for high risk ASCVD patient <100 Optimal for general population 100-129 Near optimal for general population 130-159 Borderline high 160-189 High >=190 Very high Blood Venous blood specimen / Unknown Venipuncture / Unknown 06/21/2023 3:37 PM EDT 06/21/2023 3:37 PM EDT Carmen Hutton PA-C LAB BLOOD ORDE MATIAS Performing Organization Address City/[facility]/ZIP Co de Phone Number [facility] [address] [place] [address] * MAGNESIUM (06/21/2023 3:37 PM EDT) Pathologist [facility] Magnesium 2.2 1.5 - 2.6 mg/dL 06/21/2023 11:13 PM EDT [facility] Blood Venous blood specimen / Unknown Venipuncture / Unknown 06/21/2023 3:37 PM EDT 06/21/2023 3:37 PM EDT Carmen Hutton PA-C LAB BLOOD ORDE MATIAS [facility] [address] [place] [address] * (ABNORMAL) COMPREHENSIVE METABOLIC PANEL (06/21/2023 3:37 PM EDT) BUN 11 6 - 20 mg/dL 06/21/2023 11:13 PM EDT [facility] Creatinine 1.2 0.6 - 1.2 mg/dL 06/21/2023 11:13 PM EDT [facility] Estimated Glomerular Filtration Rate 71 >=60 mL/min 06/21/2023 11:13 PM EDT [facility] Comment:eGFR is calculated b ased on the CKD-EPI 2020 equation Sodium 137 135 - 146 mmol/L 06/21/2023 11:13 PM EDT [facility] Potassium 4.3 3.5 - 5.1 mmol/L 06/21/2023 11:13 PM EDT [facility] Chloride 102 98 - 107 mmol/L 06/21/2023 11:13 PM EDT [facility] CO2 22 22 - 32 mmol/L 06/21/2023 11:13 PM EDT [facility] Anion Gap 13 7 - 15 mmol/L 06/21/2023 11:13 PM EDT [facility] Glucose 103 70 - 120 mg/dL 06/21/2023 11:13 PM EDT [facility] Albumin 5.0 3.8 - 5.0 g/dL 06/21/2023 11:13 PM EDT [facility] AST 100(H) 10 - 50 U/L 06/21/2023 11:13 PM EDT [facility] Alkaline Phosphatase 78 35 - 130 U/L 06/21/2023 11:13 PM EDT [facility] Bilirubin, Total 0.4 <=1.2 mg/dL 06/21/2023 11:13 PM EDT [facility] Calcium 9.9 8.4 - 10.2 mg/dL 06/21/2023 11:13 PM EDT LABORATORY C Protein 7.4 6.0 - 8.3 g/dL 06/21/2023 11:13 PM EDT [facility] ALT 110(H) 10 - 50 U/L 06/21/2023 11:13 PM EDT [facility] Blood Venous blood specimen / Unknown Venipuncture / Unknown 06/21/2023 3:37 PM EDT 06/21/2023 3:37 PM EDT Carmen Hutton PA-C LAB BLOOD BIBI SALCEDO [facility] Organization Address City/State/ZIP Co de Phone Number [facility] [address] [place] [address] documented in this encounter Visit Diagnoses Diagnosis Coronary artery disease involving [place] coronary artery of [place] heart without angina pectoris- Primary NSVT (nonsustained ventricular tachycardia) (HCC) Paroxysmal ventricular tachycardia Ischemic cardiomyopathy Other specified forms of chronic ischemic heart disease Dyslipidemia, goal LDL below 70 Other and unspecified hyperlipidemia History of ST elevation myocardial infarction (STEMI) Old myocardial infarction HFrEF (heart failure with reduced ejection fraction) (HCC) documented in this encounter Advance Directives Latest Code Status on File Code Status Date Activated Date Inactivated Comments Full Code 08/14/2022 1:00 AM 08/17/2022 2:38 PM This order reflects the patients wishes and were consensually agreed upon. Question Answer Comments Discussion of Advance Directives occurred with: Patient Care Teams Ager Operator Relationship Specialty Start Date End Date Wade Bragg MD [address] [place] [address] PCP - General Family Medicine 03/24/18 documented as of this encounter"
--- OUTSIDE RECORDS SUMMARY | 2023-10-22 08:02 | External Medical Summary | Summary of Care ---
Author Name Unknown Organization [facility] Address [address] [facility] [place] [address] Phone [phone] Care Team Providers Care Direct Chill Caster Name Role Phone Wade Bragg MD Primary Care Provider +1- [phone] Reason for Visit * Reason Comments Outpatient Testing Encounter Details Date Type Department Care Team Description 06/21/2023 Laboratory Laboratory, [facility] [address] [place] [address] [facility] [address] [place] [address] Coronary artery disease involving iliamna coronary artery of iliamna heart without angina pectoris; NSVT (nonsustained ventricular tachycardia) (HCC); Ischemic cardiomyopathy; Dyslipidemia, goal LDL below 70; History of ST elevation myocardial infarction (STEMI) Allergies No known active allergiesdocumented as of this encounter (statuses as of 06/21/2023) Medications Medication Sig Dispensed Refills Start Date [...] Tablet Sublingual (Nitrostat)Indication s:Coronary artery disease involving iliamna coronary artery of iliamna heart without angina pectoris Place under the [...] Oral Tablet (Zetia)Indications:Co ronary artery disease involving iliamna coronary artery of iliamna heart without angina pectoris,Dyslipidemia , goal LDL below 130,Old [place] (myocardial infarction) Take by mouth 1 Tablet [...] as of this encounter (statuses as of 06/21/2023) Active Problems Problem Noted Date Acute ST elevation myocardial infarction (STEMI) 05/28/2023 S/P angioplasty with stent 05/28/2023 Gastroesophageal reflux disease with eso phagitis without hemorrhage 12/16/2020 Old [place] (myocardial infarction) 8 Coronary artery disease invo lving iliamna coronary artery of iliamna heart without angina pectoris 06/27/2018 History of acute pancreatitis 06/27/2018 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 Dyslipidemia, goal LDL below 130 013 Generalized anxiety disorder 03/09/2013 Tobacco use disorder 01/03/2013 documented as of this encounter (statuses as of 06/21/2023) Resolved Problems Problem Noted Date Resolved Date [...] as of this encounter (statuses as of 06/21/2023) Immunizations Name Administration Dates Next Due Hepatitis [...] Taylor Boyer CRNP [address] [place] [address] 08/27/2023 Cardiac Studies Cardiac Studies 09/14/2023 Office Visit Family Medicine Wade Bragg MD [address] [place] [address] 10/29/2023 Office Visit Cardiology Carmen Hutton PA-C [address] [place] [address] Pending Results Name Type Priority Associated Diagnoses Date /Time COMPREHENSIVE METABOLIC PANEL Lab Routine Coronary artery disease involving iliamna coronary artery of iliamna heart without angina pectoris NSVT (nonsustained ventricular tachycardia) (HCC) Ischemic cardiomyopathy Dyslipidemia, goal LDL below [address] elevation myocardial infarction (STEMI) 06/21/2023 3:37 PM EDT MAGNESIUM Lab Routine Coronary artery disease involving iliamna coronary artery of iliamna heart without angina pectoris NSVT (nonsustained ventricular tachycardia) (HCC) Ischemic cardiomyopathy Dyslipidemia, goal LDL below [address] elevation myocardial infarction (STEMI) 06/21/2023 3:37 PM EDT LDL CHOLESTEROL (DIRECT MEASURE) Lab Routine Coronary artery disease involving iliamna coronary artery of iliamna heart without angina pectoris NSVT (nonsustained ventricular tachycardia) (HCC) Ischemic cardiomyopathy Dyslipidemia, goal LDL below [address] elevation myocardial infarction (STEMI) 06/21/2023 3:37 PM EDT Scheduled Procedures Name Priority Associated [...] Visit Diagnoses Diagnosis Coronary artery disease involving iliamna coronary artery of iliamna heart without angina pectoris NSVT (nonsustained ventricular tachycardia) (HCC) Paroxysmal ventricular tachycardia Ischemic cardiomyopathy Other specified forms of chronic ischemic heart disease Dyslipidemia, goal LDL below 70 Other and unspecified hyperlipidemia History of ST elevation myocardial infarction (STEMI) Old myocardial infarction documented in this encounter Advance Directives Latest Code Status on File Code Status Date Activated Date Inactivated Comments Full Code 08/14/2022 1:00 AM 08/17/2022 2:38 PM This order reflects the patients wishes and were consensually agreed upon. Question Answer Comments Discussion of Advance Directives occurred with: Patient Care Teams Direct Chill Caster Relationship Specialty Start Date End Date Wade Bragg MD [address], [place] [phone] PCP - General Family Medicine 03/24/18 documented as of this encounter
--- OUTSIDE RECORDS SUMMARY | 2023-10-22 08:02 | External Medical Summary | Summary of Care ---
Author Name Unknown Organization [facility] Address [address] [place] [place] [address] Phone [phone] Care Team Providers Care Forest Fire Fighter Name Role Phone Wade Bragg MD Primary Care Provider +1- [phone] Reason for Visit * Reason Onset Date Comments Appointment 06/08/2023 Encounter Details Date Type Department Care Team Description 06/08/2023 Telephone Cardiology, [facility] [place] [address] Trisha Chapa CRNP [address] [facility] [place] [address] Appointment Allergies No known active allergiesdocumented as of this encounter (statuses as of 06/17/2023) Medications Medication Sig Dispensed Refills Start Date [...] Tablet Sublingual (Nitrostat)Indication s:Coronary artery disease involving augustine coronary artery of augustine heart without angina pectoris Place under the [...] Oral Tablet (Zetia)Indications:Co ronary artery disease involving augustine coronary artery of augustine heart without angina pectoris,Dyslipidemia , goal LDL below 130,Old [place] (myocardial infarction) [...] the morning. 90 Tablet 3 08/06/2022 Active Metoprolol Succinate ER 25 MG Oral [...] Spironolactone 25 MG Oral Tablet (Aldactone) Take 1 Tablet by mouth in the morning. 0 Active Hospital, Clinic, or Other Facility Administered Medication Ordered Dose Route Frequency Start Date End Date Status albuterol sulfate (PROVENTIL) (2.5 MG/3ML) 0.083% inhalation solution 2.5 mgIndications:SOB (shortness of breath) 2.5 mg NEBULIZER Q4H PRN 03/02/2019 Act rolanda documented as of this encounter (statuses as of 06/17/2023) Active Problems Problem Noted Date Acute ST elevation myocardial infarction (STEMI) 05/28/2023 S/P angioplasty with stent 05/28/2023 Gastroesophageal reflux disease with eso phagitis without hemorrhage 12/16/2020 Old [place] (myocardial infarction) 8 Coronary artery disease invo lving augustine coronary artery of augustine heart without angina pectoris 06/27/2018 History of acute pancreatitis 06/27/2018 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 Dyslipidemia, goal LDL below 130 013 Generalized anxiety disorder 03/09/2013 Tobacco use disorder 01/03/2013 documented as of this encounter (statuses as of 06/17/2023) Resolved Problems Problem Noted Date Resolved Date [...] as of this encounter (statuses as of 06/17/2023) Immunizations Name Administration Dates Next Due Hepatitis B, 20+ yrs 08/24/2011,04/09/2011,03/05 PPD 08/10/2014 Seasonal Influenza, PF, 6 mo ns & Above, IM , (Flulaval) 08/17/2022(Deferred: Patient Refused) TDAP (age 11 and older)(Adacel) 12/21/2012 documented as of this encounter Social History Tobacco Use Types Packs/Day Years Used Date Smoking Tobacco: Every Day Cigarettes 0 31 Passive Smoke Exposure: Current Smokeless Tobacco: Never Comments:began at age 17 [...] encounter Miscellaneous Notes * Telephone Encounter - KEVIN Cook - 06/17/2023 9:26 AM EDT Scheduling -- would you please see if pt can come in today or tomorrow for Zio AT placement? * Telephone Encounter - KEVIN Cook - 06/16/2023 2:25 PM EDT Trisha -- then, yes, order has been placed correctly. Per Supriya, pt seeing Carmen on 06-21-2023. Do you want him to have the Zio AT placed then, or should he come in sooner for Zio AT placement? * Telephone Encounter - NAKIA Black - 06/16/2023 9:10 AM EDT I see pt has appt with Carmen on 06/21/23. * Telephone Encounter - HAKAN Richey - 06/15/2023 8:17 AM EDT Yes- it needs to be the live zio (Zio AT) HAKAN Vega * Telephone Encounter - KEVIN Cook - 06/15/2023 8:08 AM EDT Previous note in this encounter indicated Zio XT. The order placed is for a Zio AT placement (Connected Continuous Ambulatory Monitor). Please confirm it is the Zio AT you are ordering. * Telephone Encounter - HAKAN Richey - 06/11/2023 8:00 AM EDT CHRISTIANNE Salazar- you will be seeing this patient. * Telephone Encounter - HAKAN Richey - 06/08/2023 11:02 AM EDT Nursing- I am having a hard time finding the correct order for the live zio, can you please double check my order to make sure I got the right one. HAKAN Vega * Telephone Encounter - HAKAN Richey - 06/08/2023 10:57 AM EDT Patient admitted to [facility] on 06/07/2023 Anticipate Discharge within the next 24 to 48 hours. Scheduling: Please assist with [facility] follow-up within the next 4 weeks. Needs to have live ZIO XT monitor placed at discharge. Former Dr. Figueroa patient. Known to the undersigned and Dr. Marshall inpatient. Has seen Carmen Hutton PA-C in the past. If scheduling with AP please allow 60 minutes for this appointment and label appt [facility]. Thanks, HAKAN Vega IMPRESSION: Medically complex 52-year-old male with longstanding history of premature coronary disease who presented to [facility] emergency department due to an episode of chest discomfort, dyspnea, and lightheadedness unrelieved by SL nitroglycerine. In the ambulance patient had a short nayeli of nonsustained ventricular tachycardia. Recent admission 05/20/2023 due to Lcx territory STEMI requiring PCI and new evidence of HFrEF/ICM. Updated echo this admission showed a known large posterior/inferior/inferoseptal WMA with a slightly improved LVEF of 35-40% (previously 25-30% per echo 05/20/2023). No structural heart changes. HS troponin minimally elevated, but flat. No evidence of volume overload on exam. PLAN: Ischemic cardiomyopathy: GDMT limited due to borderline hypotension and bradycardia. Currently maintained on metoprolol succinate 25 mg daily and Aldactone 25 mg daily. Reduce Aldactone to 12.5 mg daily due to positional lightheadedness. Nonsustained VT per EMS- unable to titrate BB therapy due to bradycardia on tele. LVEF improved to 35-40%. Change metoprolol succinate from 25 mg daily to 12.5 mg twice daily. Will set patient up for a live ambulatory school bus monitor upon discharge (ZIO XT) Coronary disease: DAPT with ASA 81 mg daily + Brillinta 90 mg BID. Lipid management: LDL controlled 48. APOB elevated with normal LP(a). Mild elevation in AST/ALT. Patient with known chronic pancreatitis. On Crestor 40 mg daily + Zetia 10 mg daily -- continue documented in this encounter Plan of Treatment Upcoming Encounters Date Type Specialty Care Team Description 06/21/2023 Office Visit Cardiology Carmen Hutton PA-C [address] [place] [address] 07/12/2023 Office Visit Gastroenterology Taylor Boyer CRNP [address] [place] [address] 09/14/2023 Office Visit Family Medicine Wade Bragg MD [facility] [place] [address] Scheduled Orders Name Type Priority Associated Diagnoses Orde r Schedule CONNECTED CONTINUOUS AMBULATORY MONITOR Holter Routine NSVT (nonsustained ventricular tachycardia) (HCC) Ischemic cardiomyopathy Expected: 06/08/2023, Expires: 07/09/2024 Scheduled Procedures Name Priority Associated Diagnoses Date/Ti me ESOPHAGOGASTRODUODENOSCOPY ( EGD), FLEXIBLE, TRANSORAL, DIAGNOSTIC Recall 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 COLONOSCOPY FLEXIBLE PROXIMAL DIAGNOSTIC Recall History of colonic polyps Health Maintenance Due Date Last Done Comments DISCUSS TOBACCO CESSATION (REFER TO SMARTSET #2509) 1969 COVID-19 Vaccine (#1) 03/21/1970 Pneumococcal Vaccine: Pediatrics (0 to 5 Years) and At-Risk Patients (6 to 64 Years) (1 - PCV) 1975 Hepatitis C Screening 1987 Zoster Vaccines (1 of 2) 2019 DTaP,Tdap,and Td Vaccines (2 - Td or Tdap) 12/21/2022 12/21/2012 Influenza Vaccine (FLU shot) (#1) 2023 Depression Screening, Annual for Pts 12 and Over 02/16/2024 02/15/2023, 05/31/2017 COLONOSCOPY-EVERY 5 YRS AGES [...] as of this encounter Visit Diagnoses Diagnosis NSVT (nonsustained ventricular tachycardia) (HCC)- Primary Paroxysmal ventricular tachycardia Ischemic cardiomyopathy Other specified forms of chronic ischemic heart disease documented in this encounter Advance Directives Latest Code Status on File Code Status Date Activated Date Inactivated Comments Full Code 08/14/2022 1:00 AM 08/17/2022 2:38 PM This order reflects the patients wishes and were consensually agreed upon. Question Answer Comments Discussion of Advance Directives occurred with: Patient Care Teams Forest Fire Fighter Relationship Specialty Start Date End Date [facility] [address] [facility] [address] PCP - General Family Medicine 03/24/18 documented as of this encounter
--- OUTSIDE RECORDS SUMMARY | 2023-10-22 08:02 | External Medical Summary ---
Author Name Unknown Address Unknown Organization K01:[facility] [address] [place] [address] Laboratory Report Ordering Provider Test Date Status MYRIAM FARNSWORTH 06/21/2023 15:37:27 Final Observation Date Value Abnormality Reference (Units ) Status Magnesium 06/21/2023 15:37:27 2.2 1.5-2.6 (m g/dL) Final Performing Location [facility] - [address] [place] [address]
--- OUTSIDE RECORDS SUMMARY | 2023-10-22 08:02 | External Medical Summary | Summary of Care ---
Author Name Unknown Organization [facility] Address [address] [facility] [address] Phone [phone] Care Team Providers Care Water Pumper Name Role Phone Wade Bragg MD Primary Care Provider +1- [phone] Reason for Visit * Reason Onset Date Comments Appointment 06/08/2023 Encounter Details Date Type Department Care Team Description 06/08/2023 Telephone Cardiology, [facility] [place] [address] Trisha Chapa CRNP [address] [facility] [place] [address] Appointment Allergies No known active allergiesdocumented as [...] Tablet Sublingual (Nitrostat)Indication s:Coronary artery disease involving tangirnaq coronary artery of tangirnaq heart without angina pectoris Place under the [...] Oral Tablet (Zetia)Indications:Co ronary artery disease involving tangirnaq coronary artery of tangirnaq heart without angina pectoris,Dyslipidemia , goal LDL below 130,Old [place] (myocardial infarction) Take by mouth 1 Tablet [...] with eso phagitis without hemorrhage 12/16/2020 Old [place] (myocardial infarction) 8 Coronary artery disease invo lving tangirnaq coronary artery of tangirnaq heart without angina pectoris 06/27/2018 History of [...] Miscellaneous Notes * Telephone Encounter - NAKIA Black - 06/17/2023 1:39 PM EDT Spoke with pt. Pt is scheduled for today. * Telephone Encounter - KEVIN Cook - 06/17/2023 9:26 AM EDT Scheduling -- would you please see if pt can come in today or tomorrow for Zio AT placement? * Telephone Encounter - KEVIN Cook - 06/16/2023 2:25 PM EDT Trisha -- then, yes, order has been placed correctly. Per Supriya pt seeing Carmen on 06-21-2023. Do you [...] 06/08/2023 10:57 AM EDT Patient admitted to [facility] on 06/07/2023 Anticipate Discharge within the next 24 to 48 hours. Scheduling: Please assist with [facility] follow-up within the next 4 weeks. Needs to have live ZIO XT monitor placed at discharge. Former Dr. Figueroa patient. Known to the undersigned and Dr. Rolando inpatient. Has seen Carmen Brennen, PA-C in the past. If scheduling with AP please allow 60 minutes for this appointment and label appt [facility]. Thanks, HAKAN Vega IMPRESSION: Medically complex 52-year-old male with longstanding history of premature coronary disease who presented to [facility] emergency department due to an episode of [...] set patient up for a live ambulatory manager assurance upon discharge (ZIO XT) Coronary disease: DAPT with ASA 81 mg daily + Brillinta 90 mg BID. Lipid management: LDL controlled 48. APOB elevated with normal LP(a). Mild elevation in AST/ALT. Patient with known chronic pancreatitis. On Crestor 40 mg daily + Zetia 10 mg daily -- continue documented in this encounter Plan of Treatment Upcoming Encounters Date Type Specialty Care Team Description 06/17/2023 Cardiac Studies Cardiac Studies 06/21/2023 Office Visit Cardiology Carmen Hutton PA-C [address] [place] [address] 07/12/2023 Office Visit Gastroenterology Taylor Boyer CRNP [address] [place] [address] 09/14/2023 Office Visit Family Medicine Wade Bragg MD [address] [place] [address] Scheduled Orders Name Type Priority Associated Diagnoses [...] Comments DISCUSS TOBACCO CESSATION (REFER TO SMARTSET #6212) 1969 COVID-19 Vaccine (#1) 03/21/1970 Pneumococcal Vaccine: [...] Advance Directives occurred with: Patient Care Teams Water Pumper Relationship Specialty Start Date End Date Wade Bragg MD [address], [place] [phone] PCP - General Family Medicine 03/24/18 documented as of this encounter
--- OUTSIDE RECORDS SUMMARY | 2023-10-22 08:02 | External Medical Summary ---
Author Name Unknown Address Unknown Organization K01:[facility] - [address] [facility] [address] Laboratory Report Ordering Provider Test Date Status MYRIAM FARNSWORTH 06/21/2023 15:37:27 Final Observation Date Value Abnormality Reference (Units ) Status BUN 06/21/2023 15:37:27 11 6-20 (mg/dL) Final Creatinine 06/21/2023 15:37:27 1.2 0.6-1.2 (mg/dL) Final Glomerular filtration rate/1.73 sq M.predicted [Volume Rate/Area] in Serum, Plasma or Blood by Creatinine-based formula (CKD-EPI) 06/21/2023 15:37:27 71 >=60 (mL/min) Final eGFR is calculated based on the CKD-EPI 2020 equation SODIUM 06/21/2023 15:37:27 137 135-146 (m mol/L) Final Potassium 06/21/2023 15:37:27 4.3 3.5-5.1 (m mol/L) Final Cl 06/21/2023 15:37:27 102 98-107 (mm ol/L) Final CO2 06/21/2023 15:37:27 22 22-32 (mmo l/L) Final Anion gap 06/21/2023 15:37:27 13 7-15 (mmol /L) Final Glucose 06/21/2023 15:37:27 103 70-120 (mg /dL) Final Albumin 06/21/2023 15:37:27 5.0 3.8-5.0 (g /dL) Final AST (Aspartate aminotransferase) 06/21/2023 15:37:27 100 Above high normal 10-50 (U/L) Final Alk Phos 06/21/2023 15:37:27 78 35-130 (U/ L) Final Bilirubin, Total 06/21/2023 15:37:27 0.4 <=1 .2 (mg/dL) Final Calcium 06/21/2023 15:37:27 9.9 8.4-10.2 ( mg/dL) Final Protein 06/21/2023 15:37:27 7.4 6.0-8.3 (g /dL) Final ALT (Alanine aminotransferase) 06/21/2023 15:37:27 110 Above high normal 10-50 (U/L) Final Performing Location [facility] - [facility] [address] [facility] [address]
--- OUTSIDE RECORDS SUMMARY | 2023-10-22 08:02 | External Medical Summary | Summary of Care ---
Author Name Unknown Organization [facility] Address [address] [place] [facility] [place] [address] Phone [phone] Care Team Providers Care Supervisor Sintering Plant Name Role Phone Wade Bragg MD Primary Care Provider +1- [phone] Reason for Visit * Reason Onset Date Comments Appointment 06/08/2023 Encounter Details Date Type Department Care Team Description 06/08/2023 Telephone Cardiology, [facility] [place] [address] Trisha Chapa CRNP 132 [facility] [place] [address] Appointment Allergies No known active allergiesdocumented as of this encounter (statuses as of 06/16/2023) Medications Medication Sig Dispensed Refills Start Date [...] Tablet Sublingual (Nitrostat)Indication s:Coronary artery disease involving wichita coronary artery of wichita heart without angina pectoris Place under the [...] Oral Tablet (Zetia)Indications:Co ronary artery disease involving wichita coronary artery of wichita heart without angina pectoris,Dyslipidemia , goal LDL [...] as of this encounter (statuses as of 06/16/2023) Active Problems Problem Noted Date Acute ST elevation myocardial infarction (STEMI) 05/28/2023 S/P angioplasty with stent 05/28/2023 Gastroesophageal reflux disease with eso phagitis without hemorrhage 12/16/2020 Old [place] (myocardial infarction) 8 Coronary artery disease invo lving wichita coronary artery of [place]ita heart without angina pectoris 06/27/2018 History of acute pancreatitis 06/27/2018 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 Scheduling: Please assist with [facility] follow-up within the next 4 weeks. Needs to have live ZIO XT monitor placed at discharge. Former Dr. Figueroa patient. Known to the undersigned and Dr. Marshall inpatient. Has seen Carmen Hutton PA-C in the past. If scheduling with AP please allow 60 minutes for this appointment and label appt [facility]. Thanks, HAKAN Vega IMPRESSION: Medically complex 52-year-old male with longstanding history of premature coronary disease who presented to [facility] emergency department due to an episode of [...] set patient up for a live ambulatory court monitor upon discharge (Skimo TVO XT) Coronary disease: DAPT with ASA 81 [...] Hutton PA-C [address] [place] [address] 07/12/2023 Office Visit Gastroenterology Taylor Boyer CRNP [address] [place] [address] 09/14/2023 Office Visit Family Medicine Wade Bragg [place] [address] Scheduled Orders Name Type Priority Associated Diagnoses [...] Comments DISCUSS TOBACCO CESSATION (REFER TO SMARTSET #3299) 1969 COVID-19 Vaccine (#1) 03/21/1970 Pneumococcal Vaccine: [...] Advance Directives occurred with: Patient Care Teams Supervisor Sintering Plant Relationship Specialty Start Date End Date Wade Bragg MD [address] [place], [place] [phone] PCP - General Family Medicine 03/24/18 documented as of this encounter
--- OUTSIDE RECORDS SUMMARY | 2023-10-22 08:02 | External Medical Summary | Summary of Care ---
Author Name Unknown Organization [facility] Address [address] [place] [address] Phone [phone] Care Team Providers Care Ornament Stapler Name Role Phone Wade Bragg MD Primary Care Provider +1- [phone] Encounter Details Date Type Department Care Team Description 06/08/2023 Result Scan Unspecified Department <No scans attached> Allergies No known active [...] Tablet Sublingual (Nitrostat)Indication s:Coronary artery disease involving [place] coronary artery of [place] heart without angina pectoris Place under the [...] Oral Tablet (Zetia)Indications:Co ronary artery disease involving [place] coronary artery of [place] heart without angina pectoris,Dyslipidemia , goal LDL below 130,Old [place] (myocardial infarction) Take by mouth 1 Tablet [...] abdominal pain 60 Capsule 5 03/30/2023 Active Hospital, Clinic, or Other Facility Administered Medication Ordered Dose Route Frequency Start Date End Date Status albuterol sulfate (PROVENTIL) (2.5 MG/3ML) 0.083% inhalation solution 2.5 mgIndications:SOB (shortness of breath) 2.5 mg NEBULIZER Q4H PRN 03/02/2019 Act [place] documented as of this encounter (statuses as of 06/22/2023) Active Problems Problem Noted Date Acute ST elevation myocardial infarction (STEMI) 05/28/2023 S/P angioplasty with stent 05/28/2023 Gastroesophageal reflux disease with eso phagitis without hemorrhage 12/16/2020 [place] (myocardial infarction) 8 Coronary artery disease invo lving [place] coronary artery of [place] heart without angina pectoris 06/27/2018 History of [...] Taylor Boyer CRNP [address] [place] [address] 08/27/2023 Cardiac Studies Cardiac Studies 09/14/2023 Office Visit Family Medicine Wade Bragg MD [address] [place] [address] 10/29/2023 Office Visit Cardiology Carmen Hutton PA-C [address] [place] [address] Scheduled Procedures Name Priority Associated Diagnoses Date/Ti me ESOPHAGOGASTRODUODENOSCOPY ( EGD), FLEXIBLE, TRANSORAL, DIAGNOSTIC Recall 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 COLONOSCOPY FLEXIBLE PROXIMAL DIAGNOSTIC Recall History of colonic polyps Health Maintenance Due Date Last Done Comments DISCUSS TOBACCO CESSATION (REFER TO SMARTSET #3297) 1970 COVID-19 Vaccine (#1) 03/21/1970 Pneumococcal Vaccine: [...] Date/Time Associated Diagnosis Comments ECHOCARDIOLOGY SCANNED RESULT 06/08/2023 documented in this encounter Results * ECHOCARDIOLOGY SCANNED RESULT (06/08/2023) 06/08/2023 No Physician Data Unknown ECHOCARDIOLOGY documented in this encounter Advance Directives Latest Code Status on File Code Status Date Activated Date Inactivated Comments Full Code 08/14/2022 1:00 AM 08/17/2022 2:38 PM This order reflects the patients wishes and were consensually agreed upon. Question Answer Comments Discussion of Advance Directives occurred with: Patient Care Teams Ornament Stapler Relationship Specialty Start Date End Date Wade Bragg MD [address] [place] [address] PCP - General Family Medicine 03/24/18 documented as of this encounter
--- OUTSIDE RECORDS SUMMARY | 2023-10-22 08:03 | External Medical Summary | Summary of Care ---
Author Name Unknown Organization [facility] Address [address] [place] [address] Phone [phone] Care Team Providers Care Residential Instructor Name Role Phone Wade Bragg MD Primary Care Provider +1- [phone] Encounter Details Date Type Department Care Team Description 06/08/2023 Telephone Cardiology, [facility] [address] [facility] [address] Trisha Chapa CRNP [address] [place] [facility] [place] [address] Allergies No known active allergiesdocumented as of this encounter (statuses as of 06/15/2023) Medications Medication Sig Dispensed Refills Start Date [...] Tablet Sublingual (Nitrostat)Indication s:Coronary artery disease involving [place] coronary artery of [place] heart without angina pectoris Place under the [...] Oral Tablet (Zetia)Indications:Co ronary artery disease involving [place] coronary artery of [place] heart without angina pectoris,Dyslipidemia , goal LDL below 130,Old [place] (myocardial infarction) Take by mouth 1 Tablet [...] as of this encounter (statuses as of 06/15/2023) Active Problems Problem Noted Date Acute ST elevation myocardial infarction (STEMI) 05/28/2023 S/P angioplasty with stent 05/28/2023 Gastroesophageal reflux disease with eso phagitis without hemorrhage 12/16/2020 [place] (myocardial infarction) 8 Coronary artery disease invo lving [place] coronary artery of [place] heart without angina pectoris 06/27/2018 History of acute pancreatitis 06/27/2018 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 Scheduling: Please assist with [facility] follow-up within the next 4 weeks. Needs to have live ZIO XT monitor placed at discharge. Former Dr. Figueroa patient. Known to the undersigned and Dr. Marshall inpatient. Has seen Carmen Hutton PA-C in the past. If scheduling with AP please allow 60 minutes for this appointment and label appt [facility]. Thanks, HAKAN Vega IMPRESSION: Medically complex 52-year-old male with longstanding history of premature coronary disease who presented to [facility] emergency department due to an episode of [...] set patient up for a live ambulatory satellite project site monitor upon discharge (ZIO XT) Coronary disease: [...] Hutton PA-C [address] [place] [address] 07/12/2023 Office Visit Gastroenterology Taylor Boyer CRNP [address] [place] [address] 09/14/2023 Office Visit Family Medicine Wade Bragg MD [address] [place] [address] Scheduled Orders Name Type Priority Associated Diagnoses [...] Comments DISCUSS TOBACCO CESSATION (REFER TO SMARTSET #2153) 1970 COVID-19 Vaccine (#1) 03/21/1970 Pneumococcal Vaccine: [...] Advance Directives occurred with: Patient Care Teams Residential Instructor Relationship Specialty Start Date End Date Wade Bragg MD [address], [place] [id number] PCP - General Family Medicine 03/24/18 documented as of this encounter
--- OUTSIDE RECORDS SUMMARY | 2023-10-22 08:03 | External Medical Summary ---
Author Name Unknown Address Unknown Organization K01:[facility] [place] [address] [facility] [address] Laboratory Report Ordering Provider Test Date Status SHANE MCGRATH 05/28/2023 12:37:46 Final Observation Date Value Abnormality Reference (Units ) Status BUN 05/28/2023 12:37:46 19 6-20 (mg/dL) Final Creatinine 05/28/2023 12:37:46 1.4 Above high normal 0.6-1.2 (mg/dL) Final Glomerular filtration rate/1.73 sq M.predicted [Volume Rate/Area] in Serum, Plasma or Blood by Creatinine-based formula (CKD-EPI) 05/28/2023 12:37:46 63 >=60 (mL/min) Final eGFR is calculated based on the CKD-EPI 2020 equation SODIUM 05/28/2023 12:37:46 138 135-146 (m mol/L) Final Potassium 05/28/2023 12:37:46 4.7 3.5-5.1 (m mol/L) Final Cl 05/28/2023 12:37:46 99 98-107 (mm ol/L) Final CO2 05/28/2023 12:37:46 26 22-32 (mmo l/L) Final Anion gap 05/28/2023 12:37:46 13 7-15 (mmol /L) Final Glucose 05/28/2023 12:37:46 107 70-120 (mg /dL) Final Albumin 05/28/2023 12:37:46 4.7 3.8-5.0 (g /dL) Final AST (Aspartate aminotransferase) 05/28/2023 12:37:46 44 10-50 (U/L) Final Alk Phos 05/28/2023 12:37:46 71 35-130 (U/ L) Final Bilirubin, Total 05/28/2023 12:37:46 0.4 <=1 .2 (mg/dL) Final Calcium 05/28/2023 12:37:46 9.9 8.4-10.2 ( mg/dL) Final Protein 05/28/2023 12:37:46 7.0 6.0-8.3 (g /dL) Final ALT (Alanine aminotransferase) 05/28/2023 12:37:46 49 10-50 (U/L) Final Performing Location [facility] [place] [address] [facility] [address]
--- OUTSIDE RECORDS SUMMARY | 2023-10-22 08:03 | External Medical Summary | Summary of Care ---
Author Name Unknown Organization [facility] Address [address] [place] [address] Phone [phone] Care Team Providers Care Compensation Agent Name Role Phone Wade Bragg MD Primary Care Provider +1- [phone] Encounter Details Date Type Department Care Team Description 06/08/2023 Telephone Cardiology, [facility] [address] [facility] [place] [address] Trisha Chapa CRNP [address] [facility] [place] [address] Allergies No known active allergiesdocumented as of this encounter (statuses as of 06/11/2023) Medications Medication Sig Dispensed Refills Start Date [...] Tablet Sublingual (Nitrostat)Indication s:Coronary artery disease involving [place] coronary artery of [place] heart without angina pectoris Place under the [...] Oral Tablet (Zetia)Indications:Co ronary artery disease involving [place] coronary artery of [place] heart without angina pectoris,Dyslipidemia , goal LDL [...] as of this encounter (statuses as of 06/11/2023) Active Problems Problem Noted Date Acute ST elevation myocardial infarction (STEMI) 05/28/2023 S/P angioplasty with stent 05/28/2023 Gastroesophageal reflux disease with eso phagitis without hemorrhage 12/16/2020 [place] (myocardial infarction) 8 Coronary artery disease invo lving [place] coronary artery of [place] heart without angina pectoris 06/27/2018 History of acute pancreatitis 06/27/2018 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 Scheduling: Please assist with [facility] follow-up within the next 4 weeks. Needs to have live ZIO XT monitor placed at discharge. Former Dr. Figueroa patient. Known to the undersigned and Dr. Marshall inpatient. Has seen Carmen Hutton PA-C in the past. If scheduling with AP please allow 60 minutes for this appointment and label appt [facility]. Thanks, HAKAN Vega IMPRESSION: Medically complex 52-year-old male with longstanding history of premature coronary disease who presented to [facility] emergency department due to an [...] set patient up for a live ambulatory monitor technician upon discharge (ZIO XT) Coronary disease: DAPT [...] Hutton PA-C [address] [place] [address] 07/12/2023 Office Visit Gastroenterology Taylor Boyer CRNP [address] [place] [address] 09/14/2023 Office Visit [facility] [address] [facility] [address] Scheduled Orders Name Type Priority Associated Diagnoses [...] Comments DISCUSS TOBACCO CESSATION (REFER TO SMARTSET #8929) 1970 COVID-19 Vaccine (#1) 03/21/1970 Pneumococcal Vaccine: [...] Advance Directives occurred with: Patient Care Teams Compensation Agent Relationship Specialty Start Date End Date Wade Bragg MD [address] [place] [address] PCP - General Family Medicine 03/24/18 documented as of this encounter
--- OUTSIDE RECORDS SUMMARY | 2023-10-22 08:03 | External Medical Summary | Summary of Care ---
Author Name Unknown Organization [facility] Address [address] [place] [address] Phone [phone] Care Team Providers Care Still Operator Whiskey Name Role Phone Wade Bragg MD Primary Care Provider +1- [phone] Encounter Details Date Type Department Care Team Description 06/08/2023 Telephone Cardiology, [facility] [address] [facility] [place] [address] Trisha Chapa CRNP [address] [address] Allergies No known active allergiesdocumented as of [...] Tablet Sublingual (Nitrostat)Indication s:Coronary artery disease involving [place] coronary artery of [place] heart without angina pectoris Place under the [...] Oral Tablet (Zetia)Indications:Co ronary artery disease involving [place] coronary artery of [place] heart without angina pectoris,Dyslipidemia , goal LDL [...] infarction) 8 Coronary artery disease invo lving [place] coronary artery of [place] heart without angina pectoris 06/27/2018 History of [...] 06/08/2023 10:57 AM EDT Patient admitted to [facility] on 06/07/2023 Anticipate Discharge within the next 24 to 48 hours. Scheduling: Please assist with [facility] follow-up within the next 4 weeks. Needs to have live ZIO XT monitor placed at discharge. Former Dr. Figueroa patient. [facility]. Has seen Carmen Hutton PA-C in the past. If scheduling with AP please allow 60 minutes for this appointment and label appt [facility]. Thanks, HAKAN Vega IMPRESSION: Medically complex 52-year-old male with longstanding history of premature coronary disease who presented to [facility] emergency department due to an episode of [...] set patient up for a live ambulatory ekg monitor tech upon discharge (ZIO XT) Coronary disease: DAPT [...] Office Visit Cardiology Carmen Hutton PA-C [address] [facility] [place] [address] 07/12/2023 Office Visit Gastroenterology Taylor Boyer CRNP [address] [place] [address] 09/14/2023 Office Visit Family Medicine Wade Bragg MD [address] [place] [address] Scheduled Orders Name Type Priority Associated Diagnoses [...] Advance Directives occurred with: Patient Care Teams Still Operator Whiskey Relationship Specialty Start Date End Date Wade Bragg MD [address] [place] [address] PCP - General Family Medicine 03/24/18 documented as of this encounter
--- OUTSIDE RECORDS SUMMARY | 2023-10-22 08:03 | External Medical Summary | Summary of Care ---
Author Name Unknown Organization [facility] Address [address] [place] [address] Phone [phone] Care Team Providers Care Clam Grower Name Role Phone Wade Bragg MD Primary Care Provider +1- [phone] Reason for Visit * Reason Comments Hospital Follow-Up Encounter Details Date Type Department Care Team Description 05/28/2023 Office Visit [facility] [address] [place] [address] Ingrid Ordoñez MD [address] [place] [address] Acute [address] elevation myocardial infarction (STEMI), unspecified artery (HCC)*; Coronary artery disease involving shoalwater coronary artery of shoalwater heart without angina pectoris; [place] (myocardial infarction); Dyslipidemia, goal LDL below 130; S/P angioplasty with stent; Tobacco use disorder Allergies No known active allergiesdocumented as of this encounter (statuses as of 05/28/2023) Medications Medication Sig Dispensed Refills Start Date [...] Tablet Sublingual (Nitrostat)Indication s:Coronary artery disease involving shoalwater coronary artery of shoalwater heart without angina pectoris Place under the [...] Oral Tablet (Zetia)Indications:Co ronary artery disease involving [place] coronary artery of shoalwater heart without angina pectoris,Dyslipidemia , goal LDL [...] as of this encounter (statuses as of 05/28/2023) Active Problems Problem Noted Date Acute ST elevation myocardial infarction (STEMI) 05/28/2023 S/P angioplasty with stent 05/28/2023 Gastroesophageal reflux disease with eso phagitis without hemorrhage 12/16/2020 [place] (myocardial infarction) 8 Coronary artery disease invo lving shoalwater coronary artery of shoalwater heart without angina pectoris 06/27/2018 History of acute pancreatitis 06/27/2018 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 Dyslipidemia, goal LDL below 130 013 Generalized anxiety disorder 03/09/2013 Tobacco use disorder 01/03/2013 documented as of this encounter (statuses as of 05/28/2023) Resolved Problems Problem Noted Date Resolved Date [...] as of this encounter (statuses as of 05/28/2023) Immunizations Name Administration Dates Next Due Hepatitis [...] uit: Not Asked; Counseling Given: Not Answered Comments:began at age 17 2-3 cig/day as [...] Sign Reading Time Taken Comments Blood Pressure 98/62 05/28/2023 11:52 AM EDT Pulse 79 05/28/2023 11:52 AM EDT Temperature 36.6 C (97.8 F) 05/28/2023 11:52 AM E DT Respiratory Rate 18 05/28/2023 11:52 AM EDT Oxygen Saturation 98% 05/28/2023 11:52 AM EDT Inhaled Oxygen Concentration - - Weight 57.4 kg (126 lb 9.6 oz) 05/28/2023 11:52 AM EDT Height - - Body Mass Index 21.09 08/14/2022 2:08 AM EDT documented in this encounter Progress Notes * Ingrid Ordoñez MD - 05/28/2023 12:17 PM EDT Pierce Cazares is a 52 year old male. Chief Complaint Patient presents with Hospital Follow-Up HPI: Here for hospital f/u Admission May 20 discharge May 24 Dx : STEMI S/p stent ( 7th one) Severe CAD, multiple stents, dyslipidemia, hx of smoking ( currently stopped since this admission) , Some chest discomfort with exertion or certain movement Resting helps Denies leg swelling, SOB, palpitation Smoking cessation - emphasized again Also noticed lt leg muscle cramps Since he had recent heart attack, will observe but if it does not improve, he will need to discuss about PAD work up with PCP Seeing cardio in sep as scheduled Hx of recurrent pancreatitis, GERD, f/u with GI PMH: Patient Active Problem List Diagnosis Code Tobacco use disorder F17.200 Generalized anxiety disorder F41.1 Dyslipidemia, goal LDL below 130 E78.5 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 90 Tablet 3 Metoprolol Succinate ER 25 MG Oral Tablet Extended Release 24 Hour (toPROL XL) Take by mouth 1 Tablet in the morning. 90 Tablet 3 Ondansetron 4 MG Oral Tablet Disintegrating (Zofran) Place 1 Tablet (4 mg) on tongue every 8 hours as needed for Nausea. dissolve on tongue. 20 Tablet 1 Brilinta 90 MG Oral Tablet Take 1 Tablet by mouth in the morning and 1 Tablet before bedtime. 180 Tablet 3 Dicyclomine HCl 10 MG Oral Capsule (Bentyl) take 1 capsule by mouth twice a day if needed for abdominal pain 60 Capsule 5 Spironolactone 25 MG Oral Tablet (Aldactone) Take 1 Tablet by mouth in the morning. Current Facility-Administered Medications Medication Dose Route Frequency Provider Last Rate Last Admin albuterol sulfate (PROVENTIL) (2.5 MG/3ML) 0.083% inhalation solution 2.5 mg 2.5 mg Nebulizer Q4H PRN Shant Raymond MD 2.5 mg at 03/08/19 1429 Past Medical History: Diagnosis Date Anxiety 2011 Casanova esophagus 2015 Depression 2011 1 week in [facility], was on Zoloft Dyslipidemia, goal LDL below 130 INFORMATION 07/2014 10 year risk 19% INFORMATION 09/2015 10 year cardiovascular risk of 21% INFORMATION 05/2017 10 year cardiovascular risk 18.5% Past Surgical History: Procedure Laterality Date COLONOSCOPY, DIAGNOSTIC (RECTUM) 05/06/2020 internal hemorrhoids/biopsies show adenomatous polyps/recall 5 years/COLONOSCOPY FLEXIBLE PROXIMAL DIAGNOSTIC performed by Kike Gross DO at [facility] EGD, FLEXIBLE, DIAGNOSTIC 12/25/2016 Barretts, repeat 3 yrs/ESOPHAGOGASTRODUODENOSCOPY (EGD), FLEXIBLE, TRANSORAL, DIAGNOSTIC performed by Kike Gross DO at [facility] EGD, FLEXIBLE, DIAGNOSTIC 05/06/2020 medium sized hiatal hernia/gastritis/biopsies confirm barretts/recall 3 years/ESOPHAGOGASTRODUODENOSCOPY (EGD), FLEXIBLE, TRANSORAL, DIAGNOSTIC performed by Kike Gross DO at [facility] EGD, FLEXIBLE, DIAGNOSTIC N/A 08/22/2021 [facility], EGD, Esophageal mucosal changes suspicious for Casanova's esopahgaus state C4-M5, gastritis, duodentitis / biopsies evid of infection know as Casanova's esophagitis/ 1 year recall EGD, FLEXIBLE, DIAGNOSTIC 09/23/2021 Barretts, pancreatic stent removed, repeat 3 yrs / [facility] EGD, W/ENDOSCOPIC US 10/18/2015 Barretts, repeat 1 yr/[facility] ERCP N/A 08/22/2021 [facility], ERCP, major papilla located partially within diverticulum, Choledocholithiasis found, 1 biliary stent placed / no specimens collected / repeat in 6 week to remove stent ERCP 09/23/2021 Choledocholithiasis / [facility] US ENDOSCOPIC N/A 08/22/2021 [facility], EUS dilation common bile duct up to 7mm, 1 stone in common bile duct, many stones in gallbladder, Pancreatic parenchymal abnormalitis, 1 benign lymph node in annie hepatis region / no specimenscollected / VASECTOMY 02/23/2003 Review of patient's allergies indicates: No Known Allergies Family History Problem Relation Age of Onset Cancer None Diabetes Mother Hypertension Father Heart Disorder None Stroke Mother Mental Disorder Grandmother (Maternal) Family Status Relation Status NONE (Not Specified) Mo (Not Specified) Fa (Not Specified) NONE (Not Specified) MGMA (Not Specified) Social History Socioeconomic History Marital status: Single Spouse name: Not on file Number of children: Not on file Years of education: Not on file Highest education level: Not on file Occupational History Not on file Tobacco Use Smoking status: Every Day Packs/day: 0.00 Years: 31.00 Pack years: 0.00 Types: Cigarettes Passive exposure: Current Smokeless tobacco: Never Tobacco comments: began at age 17 2-3 cig/day as of 12/23/20 Vaping Use Vaping Use: Never used Substance and Sexual Activity Alcohol use: Not Currently Comment: last 2015 Drug use: No Comment: pepsi- 6 pack per day Sexual activity: Not Currently Partners: Female control/protection: Surgical Other Topics Concern Not on file Social History 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 employer: [employer] education: 12 service: [employer] 9 years hobbies/interests: [employer] transfusions: No Tattoos- right upper chest skull, left upper chest heart, right upper back grim reaper, left upper back munoz exercise: work diet: no jain/denominational: no marital status: 02/2002 children: 3 gc: 6+ ggc: 0 pets: 2 cats exposure to violence/threats/abuse: no things to improve: no Social Determinants of Health Financial Resource Strain: Not on file Food Insecurity: No Food Insecurity Worried About Running Out of Food in the Last Year: Never true Ran Out of Food in the Last Year: Never true Transportation Needs: Not on file Physical Activity: Not on file Stress: Not on file Social Connections: Not on file Intimate Partner Violence: Not on file Housing Stability: Not on file Review of Systems Constitutional: Positive for activity change and fatigue. Negative for appetite change, chills, diaphoresis, fever and unexpected weight change. HENT: Negative for congestion, ear pain and hearing loss. Eyes: Negative for visual disturbance. Respiratory: Negative for cough, chest tightness, shortness of breath and wheezing. Cardiovascular: Positive for chest pain. Negative for palpitations and leg swelling. Gastrointestinal: Negative for abdominal distention, abdominal pain, constipation, diarrhea, nauseaand vomiting. Endocrine: Negative. Musculoskeletal: Positive for myalgias (lt leg on exertion). Neurological: Positive for dizziness (on exertion occ) and light-headedness. Negative for weakness,numbness and headaches. Psychiatric/Behavioral: Negative for agitation, behavioral problems, dysphoric mood and sleep disturbance. The patient is not nervous/anxious. Objective BP 98/62 | Pulse 79 | Temp 36.6 C (97.8 F) (Infrared ) | Resp 18 | Wt 57.4 kg (126 lb 9.6 oz) | SpO2 98% | BMI 21.09 kg/m | BSA 1.62 m Physical Exam Constitutional: General: He is not in acute distress. Appearance: Normal appearance. He is not ill-appearing, toxic-appearing or diaphoretic. HENT: Head: Normocephalic and atraumatic. Nose: Nose normal. Eyes: Extraocular Movements: Extraocular movements intact. Conjunctiva/sclera: Conjunctivae normal. Pupils: Pupils are equal, round, and reactive to light. Cardiovascular: Rate and Rhythm: Normal rate and regular rhythm. Pulses: Normal pulses. Heart sounds: Normal heart sounds. No murmur heard. Pulmonary: Effort: Pulmonary effort is normal. No respiratory distress. Breath sounds: Normal breath sounds. No stridor. No wheezing, rhonchi or rales. Chest: Chest wall: No tenderness. Abdominal: Palpations: Abdomen is soft. Musculoskeletal: General: No tenderness. Right lower leg: No edema. Left lower leg: No edema. Neurological: General: No focal deficit present. Mental Status: He is alert. Cranial Nerves: No cranial nerve deficit. Motor: No weakness. Gait: Gait normal. Psychiatric: Mood and Affect: Mood normal. Behavior: Behavior normal. ASSESSMENT/PLAN: Acute ST elevation myocardial infarction (STEMI), unspecified artery (HCC) (Primary) - CBC WITH WBC DIFFERENTIAL; Future; Expected date: 05/28/2023 - COMPREHENSIVE METABOLIC PANEL; Future; Expected date: 05/28/2023 Coronary artery disease involving shoalwater coronary artery of shoalwater heart without angina pectoris [place] (myocardial infarction) Dyslipidemia, goal LDL below 130 S/P angioplasty with stent Tobacco use disorder Follow Up: Return in about 3 months (around 08/28/2023) for Clinic Visit. | For: Clinic Visit | Check-out note: With PCP --> F/u with cardio in Sep Cont meds No smoking Ingrid Ordoñez MD documented in this encounter Nursing Notes * Adia Carr LPN - 05/28/2023 11:47 AM EDT Chief Complaint Patient presents with Hospital Follow-Up documented in this encounter Plan of Treatment Upcoming Encounters Date Type Specialty Care Team Description 06/21/2023 Office Visit Cardiology Carmen Hutton PA-C [address] [place] [id number] 07/12/2023 Office Visit Gastroenterology Taylor Boyer CRNP [address] [place] [phone] 09/14/2023 Office Visit Family Medicine Wade Bragg MD [address] [place] [id number] Pending Results Name Type Priority Associated Diagnoses Date /Time CBC WITH WBC DIFFERENTIAL Lab Routine Acute ST elevation myocardial infarction (STEMI), unspecified artery (HCC) 05/28/2023 12:37 PM EDT COMPREHENSIVE METABOLIC PANEL Lab Routine Acute ST elevation myocardial infarction (STEMI), unspecified artery (HCC) 05/28/2023 12:37 PM EDT Scheduled Orders Name Type Priority Associated Diagnoses Orde r Schedule CBC WITH WBC DIFFERENTIAL Lab Routine Acute ST elevation myocardial infarction (STEMI), unspecified artery (HCC) Expected: 05/28/2023 (Approximate), Expires: 05/28/2024 COMPREHENSIVE METABOLIC PANEL Lab Routine Acute ST elevation myocardial infarction (STEMI), unspecified artery (HCC) Expected: 05/28/2023 (Approximate), Expires: 05/27/2024 Scheduled Procedures Name Priority Associated Diagnoses Date/Ti [...] as of this encounter Visit Diagnoses Diagnosis Acute ST elevation myocardial infarction (STEMI), unspecified artery (HCC)- Primary Coronary artery disease involving sho[place] coronary artery of sho[place] heart without angina pectoris [place] (myocardial infarction) Old myocardial infarction Dyslipidemia, goal LDL below 130 Other and unspecified hyperlipidemia S/P angioplasty with stent Postsurgical percutaneous transluminal coronary angioplasty status Tobacco use disorder documented in this encounter Advance Directives Latest Code Status on File Code Status Date Activated Date Inactivated Comments Full Code 08/14/2022 1:00 AM 08/17/2022 2:38 PM This order reflects the patients wishes and were consensually agreed upon. Question Answer Comments Discussion of Advance Directives occurred with: Patient Care Teams Clam Grower Relationship Specialty Start Date End Date Oesterling, Wade R, MD [address] [place], [place] [id number] PCP - General Family Medicine 03/24/18 documented as of this encounter"
--- OUTSIDE RECORDS SUMMARY | 2023-10-22 08:03 | External Medical Summary ---
Author Name Unknown Address Unknown Organization K01:[facility] - [address] [facility] [address] Laboratory Report Ordering Provider Test Date Status SHANE MCGRATH 05/28/2023 12:37:46 Final Observation Date Value Abnormality Reference (Units ) Status SYNC LEUKOCYTES IN BLOOD BY AUTOMATED COUNT 05/28/2023 12:37:46 5.82 4.00-10.80 (K/uL) Final Segs 05/28/2023 12:37:46 58.8 40.0-75.0 (%) Final Lymphs % 05/28/2023 12:37:46 29.2 18.0-42.0 (%) Final Monos 05/28/2023 12:37:46 8.1 1.0-11.0 (%) Final Eosinophils 05/28/2023 12:37:46 2.6 0.0-6.0 (%) Final Basos 05/28/2023 12:37:46 1.0 0.0-2.0 (%) Final Immature Granulocyte, Percent 05/28/2023 12:37:46 0.3 0.0-2.0 (%) Final Absolute Segs 05/28/2023 12:37:46 3.42 1.80-7.70 (K/uL) Final Lymphs, absolute 05/28/2023 12:37:46 1.70 1.00-4.80 (K/ul) Final Monos, Abs 05/28/2023 12:37:46 0.47 0.00-1.10 (K/uL) Final Eos, Abs 05/28/2023 12:37:46 0.15 0.00-0.70 (K/uL) Final Basos, Abs 05/28/2023 12:37:46 0.06 0.00-0.20 (K/uL) Final Immature Granulocytes, Number 05/28/2023 12:37:46 0.02 0.00-0.20 (K/uL) Final Performing Location [facility] - [address] [facility] [address]
--- OUTSIDE RECORDS SUMMARY | 2023-10-22 08:03 | External Medical Summary | Summary of Care ---
Author Name Unknown Organization [facility] Address [address] [place] [address] Phone [phone] Care Team Providers Care I&C Technician Name Role Phone Wade Bragg MD Primary Care Provider +1- [phone] Encounter Details Date Type Department Care Team Description 05/20/2023 Result Scan Unspecified Department <No scans attached> Allergies No known active allergiesdocumented as of this encounter (statuses as of 05/21/2023) Medications Medication Sig Dispensed Refills Start Date [...] Tablet Sublingual (Nitrostat)Indication s:Coronary artery disease involving [place] coronary artery of northway heart without angina pectoris Place under the [...] Oral Tablet (Zetia)Indications:Co ronary artery disease involving [place] coronary artery of [place] heart without angina pectoris,Dyslipidemia , goal LDL below 130,[place] (myocardial infarction) Take by mouth 1 Tablet [...] as of this encounter (statuses as of 05/21/2023) Active Problems Problem Noted Date Acute pancreatitis 08/13/2022 Gastroesophageal reflux disease with eso phagitis without hemorrhage 12/16/2020 [place] (myocardial infarction) 8 Coronary artery disease invo lving [place] coronary artery of [place] heart without angina pectoris 06/27/2018 H/O acute pancreatitis 06/27/2018 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 Dyslipidemia, goal LDL below 130 013 Generalized anxiety disorder 03/09/2013 Tobacco use disorder 01/03/2013 documented as of this encounter (statuses as of 05/21/2023) Resolved Problems Problem Noted Date Resolved Date INFORMATION 05/11/2017 03/24/2018 Overview: 10 year cardiovascular [...] as of this encounter (statuses as of 05/21/2023) Immunizations Name Administration Dates Next Due Hepatitis B, 20+ yrs 08/24/2011,04/09/2011,03/05 PPD 08/10/2014 Seasonal Influenza, Quadriva lent, No Preserve, 6 Mons & Above, IM 08/17/2022(Deferred: Patient Refused) TDAP (age 10 and [...] true 02/15/2023 Sex Assigned at Date Recorded Not on file Job Start Date Occupation Industry Not on file Not on file Not on file documented as of this encounter Plan of Treatment Upcoming Encounters Date Type Specialty Care Team Description 07/12/2023 Office Visit Gastroenterology Taylor Boyer CRNP [address] [place] [id number] Scheduled Procedures Name Priority Associated Diagnoses Date/Ti [...] Procedure Name Priority Date/Time Associated Diagnosis Comments CARDIAC CATH SCANNED RESULT 05/20/2023 documented in this encounter Results * CARDIAC CATH SCANNED RESULT (05/20/2023) 05/20/2023 No Physician Data Unknown CARD CATH documented in this encounter Advance Directives Latest Code Status on File Code Status Date Activated Date Inactivated Comments Full Code 08/14/2022 1:00 AM 08/17/2022 2:38 PM This order reflects the patients wishes and were consensually agreed upon. Question Answer Comments Discussion of Advance Directives occurred with: Patient Care Teams I&C Technician Relationship Specialty Start Date End Date Wade Bragg MD [address] [place] [address] PCP - General Family Medicine 03/24/18 documented as of this encounter
--- OUTSIDE RECORDS SUMMARY | 2023-10-22 08:03 | External Medical Summary | Summary of Care ---
Author Name Unknown Organization [facility] Address [address] [place] [address] Phone [phone] Care Team Providers Care Operations Intern Name Role Phone Wade Bragg MD Primary Care Provider +1- [phone] Reason for Visit * Reason Comments Outpatient Testing Encounter Details Date Type Department Care Team Description 05/28/2023 Laboratory Laboratory, Echo [address] [place] [address] Echo, Laboratory [address] [place] [address] elevation myocardial infarction (STEMI), unspecified artery (HCC) Allergies No known active allergiesdocumented as of [...] Tablet Sublingual (Nitrostat)Indication s:Coronary artery disease involving [place] coronary artery of [place] heart without angina pectoris Place under the [...] Oral Tablet (Zetia)Indications:Co ronary artery disease involving [place] coronary artery of [place] heart without angina pectoris,Dyslipidemia , goal LDL below 130,[place] (myocardial infarction) Take by mouth 1 Tablet [...] with eso phagitis without hemorrhage 12/16/2020 [place] (myocardial infarction) 8 Coronary artery disease invo lving [place] coronary artery of [place] heart without angina pectoris 06/27/2018 History of [...] Carmen Hutton PA-C [address] [place] [phone] 07/12/2023 Office Visit Gastroenterology Taylor Boyer CRNP [address] [place] [address] 09/14/2023 Office Visit Family Medicine Wade Bragg MD [facility] [place] [address] Pending Results Name Type Priority Associated Diagnoses Date /Time CBC WITH WBC DIFFERENTIAL Lab Routine Acute ST elevation myocardial infarction (STEMI), unspecified artery (HCC) 05/28/2023 12:37 PM EDT COMPREHENSIVE METABOLIC PANEL Lab Routine Acute ST elevation myocardial infarction (STEMI), unspecified artery (HCC) 05/28/2023 12:37 PM EDT CBC Lab Routine Acute ST elevation myocardial infarction (STEMI), unspecified artery (HCC) 05/28/2023 12:37 PM EDT DIFFERENTIAL, AUTOMATED Lab Routine Acute ST elevation myocardial infarction (STEMI), unspecified artery (HCC) 05/28/2023 12:37 PM EDT Scheduled Procedures Name Priority Associated Diagnoses Date/Ti me ESOPHAGOGASTRODUODENOSCOPY ( EGD), FLEXIBLE, TRANSORAL, DIAGNOSTIC Recall 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 COLONOSCOPY FLEXIBLE PROXIMAL DIAGNOSTIC Recall History of colonic polyps Health Maintenance Due Date Last Done Comments DISCUSS TOBACCO CESSATION (REFER TO SMARTSET #[id number]) 1970 COVID-19 Vaccine (#1) 03/21/1970 Pneumococcal Vaccine: [...] elevation myocardial infarction (STEMI), unspecified artery (HCC) documented in this encounter Advance Directives Latest Code Status on File Code Status Date Activated Date Inactivated Comments Full Code 08/14/2022 1:00 AM 08/17/2022 2:38 PM This order reflects the patients wishes and were consensually agreed upon. Question Answer Comments Discussion of Advance Directives occurred with: Patient Care Teams Operations Intern Relationship Specialty Start Date End Date Wade Bragg MD [address] [place] [address] PCP - General Family Medicine 03/24/18 documented as of this encounter
--- OUTSIDE RECORDS SUMMARY | 2023-10-22 08:03 | External Medical Summary | Summary of Care ---
Author Name Unknown Organization [facility] Address [address] [place] [address] Phone [phone] Care Team Providers Care Power Originator Name Role Phone Wade Bragg MD Primary Care Provider [phone]- [phone] Reason for Visit * Reason Onset Date Comments Hospital Follow-Up 05/25/2023 DANIEL Encounter Details Date Type Department Care Team Description 05/25/2023 Telephone [facility] [address] [place] [address] Nikki Padilla, DOMINGUEZ Hospital Follow-Up (DANIEL) Allergies No known active allergiesdocumented as of this encounter (statuses as of 05/26/2023) Medications Medication Sig Dispensed Refills Start Date [...] Tablet Sublingual (Nitrostat)Indication s:Coronary artery disease involving [place] coronary artery of [place] heart without angina pectoris Place under the [...] Oral Tablet (Zetia)Indications:Co ronary artery disease involving [place] coronary artery of [place] heart without angina pectoris,Dyslipidemia , goal LDL [...] as of this encounter (statuses as of 05/26/2023) Active Problems Problem Noted Date Acute pancreatitis 08/13/2022 Gastroesophageal reflux disease with eso phagitis without hemorrhage 12/16/2020 [place] (myocardial infarction) 8 Coronary artery disease invo lving [place] coronary artery of [place] heart without angina pectoris 06/27/2018 H/O acute pancreatitis 06/27/2018 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 Dyslipidemia, goal LDL below 130 013 Generalized anxiety disorder 03/09/2013 Tobacco use disorder 01/03/2013 documented as of this encounter (statuses as of 05/26/2023) Resolved Problems Problem Noted Date Resolved Date [...] as of this encounter (statuses as of 05/26/2023) Immunizations Name Administration Dates Next Due Hepatitis [...] encounter Miscellaneous Notes * Telephone Encounter - Nikki Padilla RN - 05/25/2023 1:45 PM EDT Transitions of Care Note Reason for Referral:Recent Admission Phone visit for follow up: DANIEL #1 Admitted to: [facility], Date: 05/20/2023 Discharged to: Home, Date: 05/24/2023 Diagnosis driving hospitalization: STEMI, History of extensive CAD, Tobacco use 05/20/2023 - Drug Eluting Stent New medication: Spironolactone Discontinued medication: Prednisone Attempted DANIEL - no answer. Left message with return number to call [phone] or . Reminded of PCP appointment 05/28/2023. Notified of late hours and weekend provider visits available if needed. Nikki Padilla RN Transitions of Care Note Reason for Referral:Recent Admission Phone visit for follow up: DANIEL #2 Admitted to: [facility], Date: 05/20/2023 Discharged to: Home, Date: 05/24/2023 Diagnosis driving hospitalization: STEMI, History of extensive CAD, Tobacco use 05/20/2023 - Drug Eluting Stent Attempted DANIEL - no answer. Left message with return number to call [phone] or . Reminded of PCP appointment 05/28/2023. Notified of late hours and weekend provider visits available if needed. Nikki Padilla RN documented in this encounter Plan of Treatment Upcoming Encounters Date Type Specialty Care Team Description 05/28/2023 Office Visit Family Medicine Ingrid Ordoñez MD [address] [place] [address] 06/21/2023 Office Visit Cardiology Carmen Hutton PA-C [address] [place] [address] 07/12/2023 Office Visit Gastroenterology Taylor Boyer CRNP [address] [place] [address] Scheduled Procedures Name Priority Associated Diagnoses Date/Ti [...] Advance Directives occurred with: Patient Care Teams Power Originator Relationship Specialty Start Date End Date Wade Bragg MD [address] [facility] [place] [address] PCP - General Family Medicine 03/24/18 documented as of this encounter
--- OUTSIDE RECORDS SUMMARY | 2023-10-22 08:03 | External Medical Summary | Summary of Care ---
Author Name Unknown Organization [facility] Address [address] [facility] [place] [address] Phone [phone] Care Team Providers Care Parachute Supervisor Name Role Phone Wade Bragg MD Primary Care Provider [phone]- [phone] Reason for Visit * Reason Onset Date Comments Appointment 06/08/2023 Encounter Details Date Type Department Care Team Description 06/08/2023 Telephone Cardiology, [facility] [address] [facility] [place] [address] Trisha Chapa CRNP [address] [facility] [place] [address] Appointment Allergies No known active allergiesdocumented as [...] Tablet Sublingual (Nitrostat)Indication s:Coronary artery disease involving [place] coronary artery of [place] heart without angina pectoris Place under the [...] Oral Tablet (Zetia)Indications:Co ronary artery disease involving [place] coronary artery of [place] heart without angina pectoris,Dyslipidemia , goal LDL below 130,[place] (myocardial infarction) Take by mouth 1 Tablet [...] with eso phagitis without hemorrhage 12/16/2020 [place] (myocardial infarction) 8 Coronary artery disease invo lving [place] coronary artery of [place] heart without angina pectoris 06/27/2018 History of [...] 06/08/2023 10:57 AM EDT Patient admitted to [facility] on 06/07/2023 Anticipate Discharge within the next 24 to 48 hours. Scheduling: Please assist with [facility] follow-up within the next 4 weeks. Needs to have live ZIO XT monitor placed at discharge. Former Dr. Figueroa [facility]. Has seen Carmen Hutton PA-C in the past. If scheduling with [facility] please allow 60 minutes for this appointment and label appt [facility]. Thanks, HAKAN Vega IMPRESSION: Medically complex 52-year-old male with longstanding history of premature coronary disease who presented to [facility] emergency department due to an episode of [...] set patient up for a live ambulatory environmental monitoring technician upon discharge (ZIO XT) Coronary disease: [...] Hutton PA-C [address] [place] [address] 07/12/2023 Office Visit Gastroenterology Taylor Boyer CRNP [address] [place] [address] 09/14/2023 Office Visit Family Medicine Wade Bragg MD [address] [place] [address] Scheduled Orders Name Type Priority Associated Diagnoses [...] Comments DISCUSS TOBACCO CESSATION (REFER TO SMARTSET #[id number]) 1970 COVID-19 Vaccine (#1) 03/21/1970 Pneumococcal Vaccine: [...] Advance Directives occurred with: Patient Care Teams Parachute Supervisor Relationship Specialty Start Date End Date Wade Bragg MD [address], [place] [id number] PCP - General Family Medicine 03/24/18 documented as of this encounter
--- OUTSIDE RECORDS SUMMARY | 2023-10-22 08:03 | External Medical Summary ---
Author Name Unknown Address Unknown Organization K01:[facility] - [address] [place] [address] Laboratory Report Ordering Provider Test Date Status SHANE MCGRATH 05/28/2023 12:37:46 Final Observation Date Value Abnormality Reference (Units ) Status WBC, Total 05/28/2023 12:37:46 5.82 4.00-10.80 (K/uL) Final RBC 05/28/2023 12:37:46 4.50 4.50-5.25 (M/uL) Final Hemoglobin 05/28/2023 12:37:46 15.2 14.0-16.8 (g/dL) Final HCT 05/28/2023 12:37:46 45.8 40.0-48.4 (%) Final MCV 05/28/2023 12:37:46 101.8 82.0-99.5 (fL) Final MCH 05/28/2023 12:37:46 33.8 27.0-34.0 (pg) Final MCHC 05/28/2023 12:37:46 33.2 32.0-36.0 (g/dL) Final RDW 05/28/2023 12:37:46 13.5 11.5-15.5 (%) Final Platelets 05/28/2023 12:37:46 326 140-400 (K/uL) Final MPV 05/28/2023 12:37:46 9.1 6.6-11.1 (fL) Final Nucleated erythrocytes/100 leukocytes [Ratio] in Blood by Automated count 05/28/2023 12:37:46 0 <=0 (/100 WBCs) Final Performing Location [facility] [place] - [address] [place] [address]
[2023-10-22] MEDS: ASPIRIN 81 MG ECTAB PO SCH (08:44)
[2023-10-22] MEDS: SPIRONOLACTONE 12.5 MG TAB PO SCH (08:44)
[2023-10-22] MEDS: ROSUVASTATIN CALCIUM 20 MG TAB PO SCH (08:44)
[2023-10-22] MEDS: SERTRALINE HCL 100 MG TABLET PO SCH (08:44)
[2023-10-22] MEDS: METOPROLOL SUCC 25MG EXT REL TAB PO SCH ×2 (08:44→20:02)
[2023-10-22] MEDS: PANTOprazole 40 MG TAB PO SCH (08:44)
[2023-10-22] MEDS: EZETIMIBE 10 MG TAB PO SCH (08:44)
[2023-10-22] MEDS: ENOXAPARIN INJ 30 MG/0.3 ML SYR SQ SCH (08:45)
[2023-10-22] MEDS: TICAGRELOR 90 MG TAB PO SCH ×2 (08:45→20:02)
--- NOTE | 2023-10-22 09:09 | Gastrointestinal Consultation ---
Date of Consultation October 22, 2023 Assessment & Plan (1) Acute pancreatitis: Patient is a 53 years old male with history of NSTEMI, ischemic cardiomyopathy, CAD status post multiple cardiac stent placements who presented with chest tightness, shortness of breath symptoms however EKG, chest x-ray and troponin level are unremarkable. He has associated nausea without vomiting, epigastric abdominal pain, noted to have lipase elevation with normal LFTs and CT findings of pancreatitis. Triglyceride level is normal, he is a smoker. Previous history of cholecystectomy and choledocholithiasis. - LR @ 150ml/hr - May start CL diet and advance to low fat as tolerated - Protonix 40mg daily - Symptomatic management otherwise - Consider repeat EUS in 4 to 6 weeks; would need to ask Cardiology if his Brilinta can be interrupted for procedures - Pls recall GI prn. Supervising Physician Co-Signing Physician Notes Attending attestation I have seen, examined this patient, and agree with the findings and above by our mid-level provider HAKAN De Jesus, with the following additions: Uncomplicated pancreatitis, cautious IVF given EF Ok to start liquids History of Present Illness Reason for Consultation: Pancreatitis Requesting Physician: Dr. Prieto Burrell Attending Physician: Dr. Nasir Bey History of Present Illness Patient is a 53 years old male with past medical history include CAD, NSTEMI, ischemic cardiomyopathy status post multiple cardiac intervention with stent placements currently on Brilinta and aspirin. He presented to the ED yesterday with complaints of chest pain and also pain in the epigastric abdominal region. Has associated chest tightness and shortness of breath. Also has nausea but no vomiting. Symptoms went away with nitro administration. Upon evaluation here his EKG are without acute changes, troponin, CXR normal. Labs showed elevated lipase levels at 953, normal LFTs. CT abdomen pelvis showed signs of edema in the fat adjacent to pancreatic head and duodenum consistent with mild pancreatitis versus duodenitis. Signs of gallbladder removal, pneumobilia and no biliary ductal dilatation. CBC, CMP otherwise unremarkable. Patient is status post cholecystectomy. Has had history of choledocholithiasis status post ERCP interventions. He is a smoker, denies alcohol uses, triglyceride level 87. Allergies Allergy/AdvReac Type Severity Reaction Status Date / Time isosorbide [From Imdur] AdvReac Severe severe Verified 10/21/23 23:57 migraine Home Medications Medication Instructions Recorded Confirmed Type nitroglycerin 0.4 mg sublingual 0.4 mg sublingual .EVERY 5 MINUTES 10/07/18 10/22/23 History tablet (Nitrostat) PRN Chest Pain dicyclomine 10 mg capsule 10 mg PO BID PRN Abdominal Pain 12/06/20 10/22/23 History ezetimibe 10 mg tablet 10 mg PO QAM 12/06/20 10/22/23 History famotidine 40 mg tablet 40 mg PO HS 12/06/20 10/22/23 History magnesium oxide 400 mg PO QAM 12/06/20 10/22/23 History pantoprazole 40 mg tablet,delayed 40 mg PO QAM 08/20/21 10/22/23 History release aspirin 81 mg tablet,delayed 81 mg PO QAM #30 tabs 05/24/23 10/21/23 Rx release rosuvastatin 40 mg tablet 40 mg PO QAM 06/07/23 10/21/23 History spironolactone 25 mg tablet 12.5 mg (1/2 x 25 mg) PO QAM #15 06/08/23 10/22/23 Rx tabs albuterol sulfate 2.5 mg/3 mL 2.5 mg inhalation Q4H PRN 07/09/23 10/22/23 History (0.083 %) solution for nebulization Shortness Of Breath Or Wheezing metoprolol succinate 25 mg 25 mg PO AMHS 07/27/23 10/22/23 History tablet,extended release 24 hr ticagrelor 90 mg tablet (Brilinta) 90 mg PO AMHS 07/27/23 10/22/23 History sertraline 100 mg tablet 100 mg PO QAM 10/21/23 10/21/23 History Patient History Medical History ST elevation myocardial infarction (STEMI) Recurrent pancreatitis COVID-29 Oct 2021 Acute pancreatitis Grade II diastolic dysfunction Barretts esophagus Mobitz type 2 second degree atrioventricular block Tobacco abuse Splenic infarct HLD (hyperlipidemia) RADHA (generalized anxiety disorder) CAD (coronary artery disease) 2017-RCA stent x 2 07/2020-STEMI, s/p PCI to left circumflex with 2 MELLY. Post procedure complicated by V. fib arrest requiring defibrillation. 12/2020-NSTEMI s/p 3 Xience MELLY to the distal aspect of prior stent of the left posterior lateral branch vessel Depression GERD (gastroesophageal reflux disease) Surgical History History of endoscopic retrograde cholangiopancreatography x2 (08/31, 09/30) Hx laparoscopic cholecystectomy (08/22/21) Laparoscopic Cholecystectomy Dr. Davidson 08/22/2021 History of vasectomy Family History Mother Gallbladder disease Sister Gallbladder disease Other Diabetes Stroke Denies family history of Pancreatic disease Social History Smoking Status: Current every day smoker Tobacco Type: Cigarettes Cigarettes Per Day: 3; Second Hand Exposure: No; Do You Dip or Chew Tobacco: No; Tobacco Cessation Education Requested by Patient: No Hx Alcohol Use: No Hx Substance Use: No Preferred Language: [place]ese Communication Ability: Effective Er Medical Technician Required: No Beliefs That Will Affect Care: None marital status: Single Current Living Situation: Alone current occupational status: employed Feels Safe at Home: Yes Safety Concerns: Feels Safe At This Time Assistive Devices: None Review of Systems Review of Systems: All systems reviewed & are unremarkable except as noted in HPI & below Physical Exam Constitutional: WD/WN, vitals as above well groomed, cooperative and comfortable Eyes: PERRL, conjunctivae normal, anicteric sclerae ENMT: external ear and nose normal, oropharynx normal Respiratory: normal respiratory effort, lungs clear to auscultation Cardiovascular: RRR, no murmur, no edema Gastrointestinal (Abdomen): normal bowel sounds, soft, nontender, no hepatosplenomegaly Skin: no rashes, warm and dry no jaundice Psychiatric: A+Ox3, euthymic affect Lymphatic: no lymphedema Results & Data Vital Signs (Past 12 Hours) Vital Signs Temp Pulse Pulse Resp BP BP Pulse Ox 10/22/23 08:38 36.9 C 63 18 108/72 97 10/22/23 07:06 56 L 10/22/23 05:11 61 16 106/65 97 10/22/23 04:32 66 16 106/65 96 10/22/23 01:05 61 10/22/23 00:30 67 24 117/75 94 10/22/23 00:00 61 21 124/83 93 10/21/23 23:00 65 23 121/84 95 10/21/23 22:00 75 24 117/77 96 10/21/23 21:31 64 20 118/78 97 10/21/23 21:30 70 24 96 10/21/23 21:13 62 22 97 10/21/23 21:13 60 10/21/23 21:12 97 10/21/23 21:10 36.6 C 62 18 120/78 98 O2 Del Method O2 Flow Rate 10/22/23 08:38 Nasal Cannula 2 10/22/23 07:06 10/22/23 05:11 Room Air 10/22/23 04:32 Nasal Cannula 2 10/22/23 01:05 10/22/23 00:30 10/22/23 00:00 10/21/23 23:00 10/21/23 22:00 Room Air 10/21/23 21:31 10/21/23 21:30 10/21/23 21:13 10/21/23 21:13 10/21/23 21:12 Room Air 10/21/23 21:10 Room Air (1) Acute pancreatitis Acute pancreatitis complication: unspecified Pancreatitis type: unspecified pancreatitis type Qualified Code(s): K85.90 - Acute pancreatitis without necrosis or infection, unspecified
--- NOTE | 2023-10-22 09:16 | Cardiology Consultation ---
Date of Consultation October 22, 2023 Assessment & Plan (1) Acute pancreatitis: (2) Ischemic cardiomyopathy: Plan HS troponin is normal x 2. EKG without acute changes x 2. Lipase elevated. Patient has chronic exertional angina , but it appears he has presented with recurrent pancreatitis which has also been an issue historically. He feels better after morphine, bowel rest and IV fluids. He had a recent repeat cardiac catheterization at [facility] in July with stable findings. No new target for revascularization. Continue outpatient cardiac medications. Will need to be cautious with IV fluid given h/o ischemic cardiomyopathy. GI input noted and appreciated. GI input noted and appreciated. Patient had a recent circumflex territory ST segment elevation myocardial infarction in May, with culprit lesion thrombosis of prior stent strain in the left circumflex and involved previously untreated obtuse marginal with complex partially successful PCI drug-eluting stent placement at that time. Unfortunately, patient would be at extremely high risk to have any interruption in his dual antiplatelet therapy in the foreseeable future. Noam Tamez DO History of Present Illness Attending Physician: Prieto Burrell MD History of Present Illness Mr Cazares is a 53 year old male seen in cardiology consultation per the request of Dr Anne for the evaluation of chest pain. Patient notes recent exertional chest pain consistent with his pattern of stable chronic angina. He presents with additional discomfort of epigastric discomfor t. At the time my assessment in the emergency room, A10 he is comfortable. Past medical history: *Premature coronary artery disease with ischemic cardiomyopathy -03/15/2018: NSTEMI, severe culprit single-vessel CAD with 99% mid RCA, 40% proximal LAD, and 50% mid LAD (PCI of proximal to mid and late/mid RCA with x 2 MELLY, 3.5 x 18 mm, 3.25 x 15 mm Xience) moderate to severe mid LAD disease by IVUS, 60 to 70%, no significant ostial/proximal LAD disease -10/25/2018:Repeat cardiac catheterization , Moderate non-obstructive coronary artery disease. 60% mid LAD (FFR 0.85). - 08/08/2020:Inferior STEMI with 100% acute distal left circumflex occlusion at bifurcation with large PLB, moderate nonobstructive CAD, 50 to 60% mid LAD stenosis unchanged from 10/2018, widely patent RCA stents. Cath complicated by V-fib arrest requiring defibrillation x 1 and postarrest cardiogenic shock requiring norepinephrine. Successful PCI of PLB/distal circumflex bifurcation with 2 drug-eluting stents (2.75 x 15 mm [place] into left PLB, 2.25 x 12 mm Mariano into distal circumflex). -01/01/2021 : NSTEMI with successful PCI of mid circumflex in the left PLB with x3 Xience drug-eluting stents (2.5 x 18 overlapping proximal aspect of prior stent, 2.5 x 12, 2.25 x 12 extending from distal aspect of prior stent in the left PLB; postdilated with 3.0 NC -- now at total of 5 stents at bifurcation with LPLB/distal circumflex) -Angioplasty into prior distal circumflex stent with 2.0 balloon -10/10/2022: NSTEMI reocclusion of previously stented circumflex into posterior lateral branch, status post successful PCI with x 1 MELLY proximally and PTCA throughout the previous stented train. Moderate disease in the LAD unchanged, previously placed RCA stent patent.Note: Given poor myocardial blush on prior study as well as current study in combination with recurrent stent thrombosis I suspect a long-term patency will be limited. There is probably some degree of acute microvascular occlusion from thrombus but also significant myocardial scarring. 05/20/2023:STEMI, Circumflex territory -- Culprit lesion secondary to thrombus of the prior stent train in the left circumflex and with involvement of previously untreated large OM1. Successful PCI of the AV groove circumflex into the large trifurcating OM1 with implantation of a large caliber drug-eluting stent. Unsuccessful attempt to reopen the previously placed long stent train in the mid to distal AV groove circumflex and a branch of that vessel. Hyperlipidemia Tobacco use, smokes 1/2 pack of cigarettes daily-quit 05/2023. Chronic pancreatitis GERD Allergies Allergy/AdvReac Type Severity Reaction Status Date / Time isosorbide [From Imdur] AdvReac Severe severe Verified 10/21/23 23:57 migraine Home Medications Medication Instructions Recorded Confirmed Type nitroglycerin 0.4 mg sublingual 0.4 mg sublingual .EVERY 5 MINUTES 10/07/18 10/22/23 History tablet (Nitrostat) PRN Chest Pain dicyclomine 10 mg capsule 10 mg PO BID PRN Abdominal Pain 12/06/20 10/22/23 History ezetimibe 10 mg tablet 10 mg PO QAM 12/06/20 10/22/23 History famotidine 40 mg tablet 40 mg PO HS 12/06/20 10/22/23 History magnesium oxide 400 mg PO QAM 12/06/20 10/22/23 History pantoprazole 40 mg tablet,delayed 40 mg PO QAM 08/20/21 10/22/23 History release aspirin 81 mg tablet,delayed 81 mg PO QAM #30 tabs 05/24/23 10/21/23 Rx release rosuvastatin 40 mg tablet 40 mg PO QAM 06/07/23 10/21/23 History spironolactone 25 mg tablet 12.5 mg (1/2 x 25 mg) PO QAM #15 06/08/23 10/22/23 Rx tabs albuterol sulfate 2.5 mg/3 mL 2.5 mg inhalation Q4H PRN 07/09/23 10/22/23 History (0.083 %) solution for nebulization Shortness Of Breath Or Wheezing metoprolol succinate 25 mg 25 mg PO AMHS 07/27/23 10/22/23 History tablet,extended release 24 hr ticagrelor 90 mg tablet (Brilinta) 90 mg PO AMHS 07/27/23 10/22/23 History sertraline 100 mg tablet 100 mg PO QAM 10/21/23 10/21/23 History Patient History Medical History ST elevation myocardial infarction (STEMI) Recurrent pancreatitis COVID-29 Oct 2021 Acute pancreatitis Grade II diastolic dysfunction Barretts esophagus Mobitz type 2 second degree atrioventricular block Tobacco abuse Splenic infarct HLD (hyperlipidemia) RADHA (generalized anxiety disorder) CAD (coronary artery disease) 2017-RCA stent x 2 07/2020-STEMI, s/p PCI to left circumflex with 2 MELLY. Post procedure complicated by V. fib arrest requiring defibrillation. 12/2020-NSTEMI s/p 3 Xience MELLY to the distal aspect of prior stent of the left posterior lateral branch vessel Depression GERD (gastroesophageal reflux disease) Surgical History History of endoscopic retrograde cholangiopancreatography x2 (08/31, 09/30) Hx laparoscopic cholecystectomy (08/22/21) Laparoscopic Cholecystectomy Dr. Davidson 08/22/2021 History of vasectomy Family History Mother Gallbladder disease Sister Gallbladder disease Other Diabetes Stroke Denies family history of Pancreatic disease Social History Smoking Status: Current every day smoker Tobacco Type: Cigarettes Cigarettes Per Day: 3; Second Hand Exposure: No; Do You Dip or Chew Tobacco: No; Tobacco Cessation Education Requested by Patient: No Hx Alcohol Use: No Hx Substance Use: No Preferred Language: Ivorian Communication Ability: Effective Artist Consultant Required: No Beliefs That Will Affect Care: None marital status: Single Current Living Situation: Alone current occupational status: employed Feels Safe at Home: Yes Safety Concerns: Feels Safe At This Time Assistive Devices: None Review of Systems Review of Systems: All systems reviewed & are unremarkable except as noted in HPI & below Physical Exam Constitutional: WD/WN, vitals as above Respiratory: normal respiratory effort, lungs clear to auscultation Cardiovascular: RRR, no murmur, no edema Gastrointestinal (Abdomen): normal bowel sounds, soft, nontender, no hepatosplenomegaly Neurologic: PERRL, EOMI, accommodation nl, no face palsy, no dysarthria Results & Data Vital Signs (Past 12 Hours) Vital Signs Temp Pulse Pulse Resp BP BP Pulse Ox 10/22/23 08:38 36.9 C 63 18 108/72 97 10/22/23 07:06 56 L 10/22/23 05:11 61 16 106/65 97 10/22/23 04:32 66 16 106/65 96 10/22/23 01:05 61 10/22/23 00:30 67 24 117/75 94 10/22/23 00:00 61 21 124/83 93 10/21/23 23:00 65 23 121/84 95 10/21/23 22:00 75 24 117/77 96 10/21/23 21:31 64 20 118/78 97 10/21/23 21:30 70 24 96 10/21/23 21:13 62 22 97 10/21/23 21:13 60 10/21/23 21:12 97 O2 Del Method O2 Flow Rate 10/22/23 08:38 Nasal Cannula 2 10/22/23 07:06 10/22/23 05:11 Room Air 10/22/23 04:32 Nasal Cannula 2 10/22/23 01:05 10/22/23 00:30 10/22/23 00:00 10/21/23 23:00 10/21/23 22:00 Room Air 10/21/23 21:31 10/21/23 21:30 10/21/23 21:13 10/21/23 21:13 10/21/23 21:12 Room Air Laboratory Results Cardiac Enzymes 10/21/23 10/22/23 Range/Units 21:17 02:20 AST 20 45 H (13-39) U/L Troponin I High Sens 13.8 13.8 (0-20) pg/ml Coagulation 10/22/23 Range/Units 02:20 APTT 29 (21-31) Seconds Lipids 10/22/23 Range/Units 02:20 Triglycerides 87 (0-150) mg/dl Cholesterol 106 (0-200) mg/dl HDL Cholesterol 42 mg/dl Cholesterol/HDL Ratio 2.5 (0-5) CBC 10/21/23 10/22/23 Range/Units 21:17 02:20 WBC 11.84 H 7.96 (4.8-10.8) K/ul RBC 4.19 L 4.41 L (4.70-6.10) M/uL Hgb 13.9 L 14.3 (14.0-18.0) g/dl Hct 39.8 L 41.5 L (42.0-52.0) % Plt Count 191 175 (130-400) K/uL Neut # (Auto) 8.78 H 6.87 H (1.40-6.50) K/uL Lymph # (Auto) 2.18 0.92 L (1.20-3.40) K/uL Park # (Auto) 0.52 0.07 L (0.11-0.59) K/uL Eos # (Auto) 0.22 0.05 (0.00-0.50) K/uL Baso # (Auto) 0.08 0.03 (0.00-0.20) K/uL Comprehensive Metabolic Panel 10/21/23 10/22/23 Range/Units 21:17 02:20 Sodium 136 135 L (136-145) mmol/L Potassium 3.2 L 4.3 D (3.5-5.1) mmol/L Chloride 104 104 (98-107) mmol/L Carbon Dioxide 25 24 (21-32) mmol/L BUN 13 13 (6-23) mg/dl Creatinine 1.12 1.01 (0.6-1.4) mg/dl Glucose 180 H 116 H (70-99(Fasting)) mg/dl Calcium 8.9 9.3 (8.6-10.3) mg/dl AST 20 45 H (13-39) U/L ALT 25 32 (7-52) U/L Alkaline Phosphatase 70 61 (34-104) U/L Total Protein 6.5 6.7 (6.0-8.3) gm/dl Albumin 4.0 4.1 (3.4-5.0) gm/dl Intake and Output 10/21/23 10/22/23 10/22/23 22:59 06:59 14:59 Other: Weight 62.8 kg 62.8 kg Weight Measurement Method Built in [facility] Built in [facility] Lipase level 953 units/L Diagnostic Findings Summary of echocardiogram performed 07/09/2023: There is a large sized apical, septal, inferior, and posterior wall motion abnormality with hypokinesis to akinesis of the segments, LVEF in the range of 35-40% (1) Acute pancreatitis Acute pancreatitis complication: unspecified Pancreatitis type: unspecified pancreatitis type Qualified Code(s): K85.90 - Acute pancreatitis without necrosis or infection, unspecified
--- NOTE | 2023-10-22 11:56 | Electrocardiogram Report ---
Test Reason : Blood Pressure : / mmHG Vent. Rate : 064 BPM Atrial Rate : 064 BPM P-R Int : 138 ms QRS Dur : 098 ms QT Int : 378 ms P-R-T Axes : 062 -30 035 degrees QTc Int : 389 ms Sinus rhythm with occasional Premature ventricular complexes Left axis deviation Incomplete right bundle branch block Old Inferior-posterior infarct (cited on or before 10-JUL-2023) Abnormal ECG When compared with ECG of 26-JUL-2023 21:44, Premature ventricular complexes are now Present Confirmed by Paul Livingston ([id number]) on 10/22/2023 11:56:39 AM Referred By: REFERRED SELF Confirmed By:Paul Livingston
--- NOTE | 2023-10-22 11:57 | Electrocardiogram Report ---
Test Reason : Blood Pressure : / mmHG Vent. Rate : 058 BPM Atrial Rate : 058 BPM P-R Int : 138 ms QRS Dur : 086 ms QT Int : 376 ms P-R-T Axes : 070 -15 036 degrees QTc Int : 369 ms Sinus bradycardia Old Lateral infarct (cited on or before 11-JUL-2023) Old Inferior-posterior infarct (cited on or before 10-JUL-2023) Abnormal ECG When compared with ECG of 21-OCT-2023 21:12, Premature ventricular complexes are no longer Present Confirmed by Paul Livingston ([id number]) on 10/22/2023 11:56:53 AM Referred By: REFERRED SELF Confirmed By:Paul Livingston
--- NOTE | 2023-10-22 13:51 | Communication Note ---
Date of Service: October 22, 2023 Patient was seen and examined at bedside. 53-year-old male with PMH of chronic systolic heart failure [TTE 2022 with EF of 35 to 40%], premature CAD status post stent, PAF, NSVT, HTN, HLD, recurrent pancreatitis status post cholecystectomy/ERCP, Casanova's esophagus, anxiety/mood disorder, ongoing tobacco abuse presented to the ED 10/21 with a complaint of acute achy upper abdomen/chest pain, minimal response to nitro, relieved with bowel rest and morphine. He is being managed for the following: Atypical chest pain Recurrent pancreatitis Patient came in with complaints of atypical chest pain, troponin x 2 negative, EKG with no acute ST or T changes. Lipase was elevated. Minimal response to home nitro. Patient reports improvement in his abdominal pain after bowel rest/IV hydration/morphine. GI evaluated, may advance to Clear liquid diet and then to low-fat. Continue with pain management, nausea control, PPI, IV fluid. Clear liquid diet ordered. Per GI, repeat EUS in 4 to 6 weeks, follow-up with GI upon discharge. Prediabetes: A1c elevated at 6.2, will update patient. Lifestyle modification encouraged, follow-up A1c in 3 months. Other chronic medical conditions: Continue with/resume home meds as and when able Chronic systolic heart failure [EF 35 to 40%, TTE 2022]: Patient euvolemic to dry. CAD: Continue DAPT. Continue beta-shay. Continue statin. PAF, patient NSR HTN, BP stable HLD, continue with home statin Casanova's esophagus, stable on PPI regimen Ongoing tobacco abuse, encouraged cessation. Nicotine patch as needed. DVT prophylaxis: Lovenox subcu Full code
[2023-10-22] MEDS: LACTATED RINGER'S 1,000 ML IV SCH (16:26)
[2023-10-22] MEDS ORDERED: FAMOTIDINE 40 MG TABLET PO SCH (21:00)
[2023-10-23] MEDS: NITROGLYCERIN 2% OINTMENT 30GM TUBE EXT SCH ×3 (00:43→12:02)
[2023-10-23] MEDS: ACETAMINOPHEN 325 MG TAB PO PRN ×3 (00:47→09:52)
[2023-10-23] MEDS: LACTATED RINGER'S 1,000 ML IV SCH ×2 (02:39→12:01)
[2023-10-23 06:45] LABS: Hematocrit (blood only) 35.9 % (42.0-52.0); Hemoglobin 12.9 g/dl (14.0-18.0); Mean Corpuscular Hgb Conc 35.9 g/dL (32.0-36.0); Mean Corpuscular Volume 91.8 fL (80.0-100.0); Mean Platelet Volume 9.5 fL (9.4-12.4); Platelet Count 149 K/uL (130-400); RDW Coefficient of Variation 12.1 % (11.5-14.5); RDW Standard Deviation 41.1 fL (36.4-46.3); Red Blood Count 3.91 M/uL (4.70-6.10); White Blood Count 5.86 K/ul (4.8-10.8)
[2023-10-23 07:00] LABS: Albumin Level 3.5 gm/dl (3.4-5.0); BUN Creatinine Ratio 11.7 (10-20); Bilirubin Direct 0.1 mg/dl (0-0.2); Bilirubin,Total 0.7 mg/dl (0.2-1.0); Calcium 8.8 mg/dl (8.6-10.3); Creatinine Clr Calc Pharmacy 69.8 ml/min; Magnesium 1.8 mg/dl (1.7-2.4); Phosphorus 2.9 mg/dl (2.5-4.9); Potassium 4.2 mmol/L (3.5-5.1); Total Protein 5.9 gm/dl (6.0-8.3)
[2023-10-23] MEDS: PANTOprazole 40 MG TAB PO SCH (08:25)
[2023-10-23] MEDS: ASPIRIN 81 MG ECTAB PO SCH (08:25)
[2023-10-23] MEDS: METOPROLOL SUCC 25MG EXT REL TAB PO SCH (08:25)
[2023-10-23] MEDS: SPIRONOLACTONE 12.5 MG TAB PO SCH (08:25)
[2023-10-23] MEDS: EZETIMIBE 10 MG TAB PO SCH (08:25)
[2023-10-23] MEDS: SERTRALINE HCL 100 MG TABLET PO SCH (08:25)
[2023-10-23] MEDS: ENOXAPARIN INJ 30 MG/0.3 ML SYR SQ SCH (08:25)
[2023-10-23] MEDS: ROSUVASTATIN CALCIUM 20 MG TAB PO SCH (08:25)
[2023-10-23] MEDS: TICAGRELOR 90 MG TAB PO SCH (09:47)
--- NOTE | 2023-10-23 16:23 | Discharge Summary ---
Date of Service October 23, 2023 Admission HPI Per Admitting Provider History obtained from patient and records. Medical history significant for chronic systolic heart failure (EF 35 to 40%, TTE 2022), premature CAD sp stent, PAF as per records, history NSVT, HTN, hyperlipidemia, recurrent pancreatitis status post cholecystectomy/ ERCP, Casanova's esophagus, anxiety/mood disorder, ongoing tobacco abuse. Last confinement July 2023 for chest pain. Patient was at home last night when he experienced achy chest pain similar to previous episodes in the past. Minimal response to home nitro, Patient compliant with home medications. Patient later noted epigastric discomfort reminiscent of pancreatitis episodes. Denies recent fatty food or alcohol intake. Patient consulted ER for evaluation. Patient currently comfortable after morphine and Nitropaste administration at the ER. MEDICAL HISTORY: As above. OPERATIONS: vasectomy, cholecystectomy FAMILY HISTORY:Hypertension, stroke; no pancreatitis PERSONAL AND SOCIAL HISTORY: One-half pack daily. No chronic intake of alcoholic beverages. 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 Admission Exam Per Admitting Provider GENERAL: comfortable, pleasant, no respiratory distress SKIN: Normal color, warm HEENT: Alopecia, bespectacled, pink palpebral conjunctivae, no ptosis, dry buccal mucosa NECK : Supple, no tenderness CHEST : CTA, no tenderness HEART : RRR, no obvious murmurs ABDOMEN: some distention, central abdominal tenderness EXTREMITIES : No LE swelling/tenderness, no other conspicuous deformities noted NEUROLOGIC : Coherent, no facial asymmetry, no other gross focality Principal Diagnosis Atypical chest pain Recurrent pancreatitis Discharge Exam GENERAL: Alert and oriented x3. NAD, on RA. HEENT: No pallor, no icterus. Pupils equal, round and reactive to light. Oral mucosa moist. NECK: No JVD, no neck masses. HEART: S1 and S2 heard. Regular rate and rhythm. No murmur, no gallop. RESPIRATORY SYSTEM: Normal AP diameter. No accessory muscle use. No wheezing, no crackles. ABDOMEN: Soft, bowel sounds present, nontender, no distention. CENTRAL NERVOUS SYSTEM: No facial droop. Speech is clear. Obeys simple commands. Moves extremities. EXTREMITIES: No edema, no erythema seen. Discharge Data Allergies Allergy/AdvReac Type Severity Reaction Status Date / Time isosorbide [From Imdur] AdvReac Severe severe Verified 10/21/23 23:57 migraine Consultations 10/21/23 22:19 ED Decision to Admit Stat 10/22/23 03:46 Consult Cardiology Routine Consult Gastroenterology Routine Ordered Studies 10/21/23 22:19 CT abd pelvis IV con only Stat Hospital Course (1) Acute pancreatitis: Plan 53-year-old male with PMH of chronic systolic heart failure [TTE 2022 with EF of 35 to 40%], premature CAD status post stent, PAF, NSVT, HTN, HLD, recurrent pancreatitis status post cholecystectomy/ERCP, Casanova's esophagus, anxiety/mood disorder, ongoing tobacco abuse presented to the ED 10/21 with a complaint of acute achy upper abdomen/chest pain, minimal response to nitro, relieved with bowel rest and morphine. He was managed for the following: Atypical chest pain Recurrent pancreatitis Patient came in with complaints of atypical chest pain, troponin x 2 negative, EKG with no acute ST or T changes. Lipase was elevated. Minimal response to home nitro. Patient reports improvement in his abdominal pain after bowel rest/IV hydration/morphine. GI evaluated, may advance to Clear liquid diet and then to low-fat. Patient tolerating advancement of diet very well, denies any abdominal pain. Lipase trended down to normal. Patient has not required much as needed pain medication. Patient would like to go home, if tolerates soft diet and can go home today. Per GI, repeat EUS in 4 to 6 weeks, follow-up with GI upon discharge. Prediabetes: A1c elevated at 6.2. Lifestyle modification encouraged, follow-up A1c in 3 months w/ PCP office. Other chronic medical conditions: Continue with/resume home meds as and when able Chronic systolic heart failure [EF 35 to 40%, TTE 2022]: Patient euvolemic to dry. CAD: Continue DAPT. Continue beta-shay. Continue statin. PAF, patient NSR HTN, BP stable HLD, continue with home statin Casanova's esophagus, stable on PPI regimen Ongoing tobacco abuse, encouraged cessation. Nicotine patch as needed. DVT prophylaxis: Lovenox subcu Full code Patient is being discharged to home with following instruction at the point of discharge: Follow-up with your primary care physician within a week time and likely you will need labs CBC/CMP/magnesium/phosphorus. Maintain soft/low-fat diet for next several days before you progress to regular consistency/low-fat diet. Follow-up with GI as an outpatient, possible repeat EUS in 4 to 6 weeks. Continue to follow-up with your cardiology as an outpatient. Your A1c elevated at 6.2 which means you have prediabetes. Lifestyle modification including incorporation of healthy diet and daily exercise regimen encouraged, follow-up A1c in 3 months w/ PCP office. Take your medications as prescribed. Please make sure that you are able to get your medications today by calling your pharmacy before you leave the hospital so that your treatment continuity is not broken. Home Health Attestation I certify that this patient is under my care and that I, or a physicians project administrative assistant working with me, had a face to-face encounter that meets the home health [id number] encounter requirements with this patient. The encounter with the patient was in whole, or in part, for the following medical condition, which is the primary reason for home health care (list medical condition): I certify that, based on my findings, the following services are medically necessary home health services: My clinical findings support the need for the above services because: Further, I certify that my clinical findings support that this patient is homebound (i.e. absences from home require considerable and taxing effort and are for medical reasons or anabaptism services or infrequently or of short duration when for other reasons) because: Certification for Home Health Services: Based on the above findings, I certify that this patient is confined to the home and needs intermittent longterm care, physical therapy and/or speech therapy or continues to need occupational therapy. The patient is under my care, and I have initiated the establishment of the plan of care. This patient will be followed by a physician who will periodically review the plan of care. Total Time Total Time Spent Total Time Spent (In Minutes): 45 Discharge Plan Discharge Items Patient Disposition: Home - Self-Care Reason For Visit: CHEST PAIN, PANCREATITIS Discharge Diagnosis: Atypical chest pain Recurrent pancreatitis Activity: Resume your previous activity Non-emergency contact: Primary Care Provider Call non-emergency contact if: you have any medication questions and your symptoms worsen Follow-up/Referrals: Wade Bragg MD [Primary Care Provider] - Diet: Low Fat Diet Texture: Dental soft (bite-sized) Addtl Attending Provider Instructions: Follow-up with your primary care physician within a week time and likely you will need labs CBC/CMP/magnesium/phosphorus. Maintain soft/low-fat diet for next several days before you progress to regular consistency/low-fat diet. Follow-up with GI as an outpatient, possible repeat EUS in 4 to 6 weeks. Continue to follow-up with your cardiology as an outpatient. Your A1c elevated at 6.2 which means you have prediabetes. Lifestyle modification including incorporation of healthy diet and daily exercise regimen encouraged, follow-up A1c in 3 months w/ PCP office. Take your medications as prescribed. Please make sure that you are able to get your medications today by calling your pharmacy before you leave the hospital so that your treatment continuity is not broken. Pending Studies at Discharge: No Stand-Alone Forms: [facility] [email or web address], Smoking Cessation Medications and DC Order Prescriptions: Continued nitroglycerin [Nitrostat] 0.4 mg tablet, sublingual 0.4 mg Sublingual .EVERY 5 MINUTES MDD 3 doses PRN (Reason: Chest Pain) Rx Instructions: if no relief after 3rd dose call 911 famotidine 40 mg tablet 40 mg PO HS dicyclomine 10 mg capsule 10 mg PO BID PRN (Reason: Abdominal Pain) ezetimibe 10 mg tablet 10 mg PO QAM magnesium oxide 400 mg magnesium Tablet 400 mg PO QAM pantoprazole 40 mg tablet,delayed release (DR/EC) 40 mg PO QAM aspirin 81 mg tablet,delayed release (DR/EC) 81 mg PO QAM Qty: 30 0RF rosuvastatin 40 mg tablet 40 mg PO QAM spironolactone 25 mg tablet 12.5 mg PO QAM Qty: 15 0RF albuterol sulfate 2.5 mg /3 mL (0.083 %) Solution For Nebulization 2.5 mg INHALATION Q4H PRN (Reason: Shortness Of Breath Or Wheezing) metoprolol succinate 25 mg tablet extended release 24 hr 25 mg PO AMHS Brilinta 90 mg tablet 90 mg PO AMHS sertraline 100 mg tablet 100 mg PO QAM Discharge Orders: Discharge Order (Routine); Ordered 10/23/23 Ordered By: Prieto Vazquez/Other Patient Handouts: Prediabetes, 5 Steps for Eating Healthier, Understanding Pancreatitis Admission Data Admit Date/Time: 10/22/23 02:22 Attending Provider: Prieto Burrell Admit Provider: Fahad Anne Primary Care Provider: Wade Bragg Other Providers: Fahad Anne; Trisha Nair; Herb Tamez; Bran Marshall; Jeremy Whittaker; Edu Sheth.; Deep Parks; Carmen Hutton; Alba Lee; Trisha Chapa; Alexander Trejo; Charles Mendieta; Suzi Hinojosa; Larisa Vick; Moses Medrano; Tavo Giron; Matheus Luna; Milton Rosales; Jaja Khan; Shari Wilson; Cristin Yañez; Pranay,L[place]; Nasir Bey.; Kike Gross.; Pawel Carver.; Ha Katz S; Neda Sweeney; Sunni Alves.; Taylor Boyer.; Francesca Walters; Marianela Epstein; Dagoebrto Pop.; Gabe Hayes.; Trisha Becker; Helena Kwok Jr
[2023-10-24] MEDS ORDERED: ENOXAPARIN INJ 40 MG/0.4 ML SYR SQ SCH (09:00)
--- NOTE | 2023-10-24 20:40 | Electrocardiogram Report ---
Test Reason : Blood Pressure : / mmHG Vent. Rate : 058 BPM Atrial Rate : 058 BPM P-R Int : 128 ms QRS Dur : 088 ms QT Int : 388 ms P-R-T Axes : 069 018 023 degrees QTc Int : 380 ms Sinus bradycardia Low voltage QRS Inferior-posterior infarct (cited on or before 10-JUL-2023) Abnormal ECG When compared with ECG of 21-OCT-2023 22:11, No significant change was found Confirmed by Tanvir Horne ([id number]) on 10/24/2023 8:40:09 PM Referred By: REFERRED SELF Confirmed By:Tanvir Horne
[2023-10-24] MEDS ORDERED: FAMOTIDINE 20 MG TAB PO SCH (21:00)
== END 2023-10-23 17:46 | disposition home or self-care (01) | DRG 439 ==
LOC: ED 21:08 → EDINP 10-22 02:22 → INTOOBSV 10-22 02:22 → 2S 10-22 03:47

== ENCOUNTER 2024-01-21 17:42 | Observation (INO) ==
[2024-01-21 18:10] LABS: Basophils # (auto) 0.08 K/uL (0.00-0.20); Eosinophils # (auto) 0.16 K/uL (0.00-0.50); Hematocrit (blood only) 41.2 % (42.0-52.0); Hemoglobin 14.2 g/dl (14.0-18.0); Immature Granulocytes # (auto) 0.02 K/uL (0.01-0.20); Immature Granulocytes % (auto) 0.3 %; Lymphocytes # (auto) 2.41 K/uL (1.20-3.40); Lymphocytes % (auto) 30.5 %; Mean Corpuscular Hemoglobin 32.6 pg (25.0-34.0); Mean Corpuscular Hgb Conc 34.5 g/dL (32.0-36.0); Mean Corpuscular Volume 94.7 fL (80.0-100.0); Mean Platelet Volume 9.2 fL (9.4-12.4); Monocytes # (auto) 0.51 K/uL (0.11-0.59); Monocytes % (auto) 6.4 %; Neutrophils # (auto) 4.73 K/uL (1.40-6.50); Neutrophils % (auto) 59.8 %; Platelet Count 215 K/uL (130-400); RDW Coefficient of Variation 13.3 % (11.5-14.5); Red Blood Count 4.35 M/uL (4.70-6.10); White Blood Count 7.91 K/ul (4.8-10.8)
--- NOTE | 2024-01-21 18:24 | XRay Report ---
XR chest 1V not portable CLINICAL HISTORY: Chest pain, nonspecific TECHNIQUE: Single frontal radiograph of the chest was obtained. Comparison: Comparison is made to chest radiograph 01/12/2024 FINDINGS: No lines and tubes are seen. The cardiomediastinal silhouette is normal. The lungs are clear. No evid ence of pleural effusion or pneumothorax. IMPRESSION: No acute chest disease. ACT 112: Negative or not required by law. Electronically signed by: Vadim Cunha M.D. 01/21/2024 6:23 PM
[2024-01-21 18:25] LABS: Albumin Globulin Ratio 1.6 (0.9-2); Albumin Level 4.3 gm/dl (3.4-5.0); BUN Creatinine Ratio 9.2 (10-20); Bilirubin,Total 0.3 mg/dl (0.2-1.0); Calcium 9.2 mg/dl (8.6-10.3); Creatinine Clr Calc Pharmacy 61.2 ml/min; Est GFR (Non-African American) 68.1 ml/min; Globulin 2.7 gm/dl (2.5-4.0); Potassium 3.7 mmol/L (3.5-5.1)
[2024-01-21 18:32] LABS: Troponin I High Sensitivity 23.3 pg/ml (0-20)
[2024-01-21 18:38] LABS: INR 0.9 (0.9-1.1); Partial Thromboplastin Time 29 Seconds (21-31)
[2024-01-21] MEDS: SODIUM CHLORIDE 0.9% 1,000 ML IV ONE (19:00)
[2024-01-21] MEDS: ASPIRIN CHEW 324 MG PO STA (19:00)
[2024-01-21] MEDS: NITROGLYCERIN SL 0.4 MG/TAB TAB SL STA (19:00)
--- NOTE | 2024-01-21 21:03 | History & Physical Report ---
Date of Service January 21, 2024 Assessment & Plan (1) Chest pain: Plan: 53-year-old male with past medical history significant for hyperlipidemia, history of ST elevated MN, CAD s/p stent, heart failure with reduced ejection fraction, ischemic cardiomyopathy, history of nonsustained ventricular tachycardia, Casanova's esophagus, GERD, tobacco use disorder, general anxiety disorder, history of pancreatitis, presents with chest pain. Patient states since afternoon he is having chest pain in the middle of the chest 9/10 severity. Earlier it was radiating to jaw and left arm but currently it is only in the chest. It's pressure-like feeling. Associated with diaphoresis, nausea, shortness of breath and dizziness. Denies any fevers. No cough. No headache. Vision is somewhat blurry. No runny nose or sore throat. No abdominal pain. Normal bowel and bladder movements. Hemodynamics are okay. Chest pain Troponins flat in 20s Will follow serial enzymes and EKG and echo History of CAD s/p stent Telemetry N.p.o. Consult cardiology in a.m. Close monitor History of CAD s/p stent On aspirin, Brilinta, Zetia, metoprolol succinate and rosuvastatin History of chronic systolic CHF EF 35 to 40% echo done in June 2023 On metoprolol succinate and spironolactone Will monitor for volume overload History of nonsustained ventricular tachycardia On metoprolol History of GERD Casanova's esophagitis On Protonix and famotidine Hyperlipidemia On statin Generalized anxiety disorder On Zoloft DVT prophylaxis SCDs Disposition Telemetry Full code History of Present Illness Chief Complaint: Chest pain Primary Care Provider: Wade Bragg MD 53-year-old male with past medical history significant for hyperlipidemia, history of ST elevated MN, CAD s/p stent, heart failure with reduced ejection fraction, ischemic cardiomyopathy, history of nonsustained ventricular tachycardia, Casanova's esophagus, GERD, tobacco use disorder, general anxiety disorder, history of pancreatitis, presents with chest pain. Patient states since afternoon he is having chest pain in the middle of the chest 9/10 severity. Earlier it was radiating to jaw and left arm but currently it is only in the chest. It's pressure-like feeling. Associated with diaphoresis, nausea, shortness of breath and dizziness. Denies any fevers. No cough. No headache. Vision is somewhat blurry. No runny nose or sore throat. No abdominal pain. Normal bowel and bladder movements. Hemodynamics are okay. Past medical history. As mentioned above Past surgical history. Cardiac cath and stent placement. Colonoscopy. EGD. EGD with endoscopic ultrasound. ERCP. Vasectomy. Social history. Smokes 0.3 packs daily. Smoking for last 31 years. Not drinking alcohol currently. No drug use. Family history. Mother had diabetes. Stroke. father had hypertension. Maternal grandmother had mental disorder Allergies Allergy/AdvReac Type Severity Reaction Status Date / Time isosorbide [From Imdur] AdvReac Severe severe Verified 01/21/24 18:10 migraine Home Medications Medication Instructions Recorded Confirmed Type nitroglycerin 0.4 mg sublingual 0.4 mg sublingual .EVERY 5 MINUTES 10/07/18 01/21/24 History tablet (Nitrostat) PRN Chest Pain dicyclomine 10 mg capsule 10 mg PO BID PRN Abdominal Pain 12/06/20 01/21/24 History ezetimibe 10 mg tablet 10 mg PO QAM 12/06/20 01/21/24 History famotidine 40 mg tablet 40 mg PO HS 12/06/20 01/21/24 History magnesium oxide 400 mg PO QAM 12/06/20 01/21/24 History pantoprazole 40 mg tablet,delayed 40 mg PO QAM 08/20/21 01/21/24 History release aspirin 81 mg tablet,delayed 81 mg PO QAM #30 tabs 05/24/23 01/21/24 Rx release rosuvastatin 40 mg tablet 40 mg PO QAM 06/07/23 01/21/24 History spironolactone 25 mg tablet 12.5 mg (1/2 x 25 mg) PO QAM #15 06/08/23 01/21/24 Rx tabs albuterol sulfate 2.5 mg/3 mL 2.5 mg inhalation Q4H PRN 07/09/23 01/21/24 History (0.083 %) solution for nebulization Shortness Of Breath Or Wheezing metoprolol succinate 25 mg 25 mg PO AMHS 07/27/23 01/21/24 History tablet,extended release 24 hr ticagrelor 90 mg tablet (Brilinta) 90 mg PO AMHS 07/27/23 01/21/24 History sertraline 100 mg tablet 100 mg PO QAM 10/21/23 01/21/24 History Past Med/Surg History Medical History ST elevation myocardial infarction (STEMI) Recurrent pancreatitis COVID-29 Oct 2021 Acute pancreatitis Grade II diastolic dysfunction Barretts esophagus Mobitz type 2 second degree atrioventricular block Tobacco abuse Splenic infarct HLD (hyperlipidemia) RADHA (generalized anxiety disorder) CAD (coronary artery disease) 2017-RCA stent x 2 07/2020-STEMI, s/p PCI to left circumflex with 2 MELLY. Post procedure complicated by V. fib arrest requiring defibrillation. 12/2020-NSTEMI s/p 3 Xience MELLY to the distal aspect of prior stent of the l eft posterior lateral branch vessel Depression GERD (gastroesophageal reflux disease) Surgical History History of endoscopic retrograde cholangiopancreatography x2 (08/31, 09/30) Hx laparoscopic cholecystectomy (08/22/21) Laparoscopic Cholecystectomy Dr. Davidson 08/22/2021 History of vasectomy Family History Mother Gallbladder disease Sister Gallbladder disease Other Diabetes Stroke Denies family history of Pancreatic disease Social History Smoking Status: Heavy tobacco smoker Tobacco Type: Cigarettes Cigarettes Per Day: 3; Second Hand Exposure: No; Do You Dip or Chew Tobacco: No; Hx Alcohol Use: No Hx Substance Use: No Preferred Language: Brazilian Communication Ability: Effective Vat Tender Required: No Beliefs That Will Affect Care: None marital status: Single Current Living Situation: Alone current occupational status: employed Other Information That Helps Us Care for You: No Feels Safe at Home: Yes Safety Concerns: Feels Safe At This Time Assistive Devices: Glasses Review of Systems Review of Systems: All systems reviewed & are unremarkable except as noted in HPI & below Physical Exam Physical Exam: General- Not in distress Head- atraumatic Eyes- PERRL. ENT- oropharynx clear Neck- supple, no JVD. Lungs- clear to auscultation no wheezing or crackles. Heart- regular rate and rhythm; no murmur, no gallop. Abdomen- normal bowel sounds, soft, nontender, no distension. Extremities- no pretibial edema, no erythema seen. Neuro- alert, oriented PERRL, no facial palsy; no dysarthria; moves extremities. Results & Data Results & Data Vital Signs (Past 12 Hours) Vital Signs Temp Pulse Resp BP Pulse Ox O2 Del Method 01/21/24 19:30 139/87 01/21/24 19:30 72 24 98 01/21/24 19:15 135/92 01/21/24 19:15 70 24 96 01/21/24 19:06 136/89 01/21/24 19:06 82 20 96 01/21/24 19:00 61 20 98 01/21/24 18:59 87 23 01/21/24 18:59 170/98 H 01/21/24 18:30 81 22 97 01/21/24 18:17 90 01/21/24 18:16 80 20 98 01/21/24 17:43 36.9 C 86 19 168/94 H 98 Room Air Diagnostic Findings Laboratory Results WBC 7.91 K/ul (4.8-10.8) 01/21/24 17:50 RBC 4.35 M/uL (4.70-6.10) L 01/21/24 17:50 Hgb 14.2 g/dl (14.0-18.0) 01/21/24 17:50 Hct 41.2 % (42.0-52.0) L 01/21/24 17:50 MCV 94.7 fL (80.0-100.0) 01/21/24 17:50 MCH 32.6 pg (25.0-34.0) 01/21/24 17:50 MCHC 34.5 g/dL (32.0-36.0) 01/21/24 17:50 RDW Std Deviation 47.0 fL (36.4-46.3) H 01/21/24 17:50 RDW Coeff of Mckinley 13.3 % (11.5-14.5) 01/21/24 17:50 Plt Count 215 K/uL (130-400) 01/21/24 17:50 MPV 9.2 fL (9.4-12.4) L 01/21/24 17:50 Immature Gran % (Auto) 0.3 % 01/21/24 17:50 Neut % (Auto) 59.8 % 01/21/24 17:50 Lymph % (Auto) 30.5 % 01/21/24 17:50 [place] % (Auto) 6.4 % 01/21/24 17:50 Eos % (Auto) 2.0 % 01/21/24 17:50 Baso % (Auto) 1.0 % 01/21/24 17:50 Neut # (Auto) 4.73 K/uL (1.40-6.50) 01/21/24 17:50 Lymph # (Auto) 2.41 K/uL (1.20-3.40) 01/21/24 17:50 [place] # (Auto) 0.51 K/uL (0.11-0.59) 01/21/24 17:50 Eos # (Auto) 0.16 K/uL (0.00-0.50) 01/21/24 17:50 Baso # (Auto) 0.08 K/uL (0.00-0.20) 01/21/24 17:50 Immature Gran # (Auto) 0.02 K/uL (0.01-0.20) 01/21/24 17:50 PT 10.0 Seconds (9.0-12.0) 01/21/24 17:50 INR 0.9 (0.9-1.1) 01/21/24 17:50 APTT 29 Seconds (21-31) 01/21/24 17:50 PTT Ratio 1.0 01/21/24 17:50 Sodium 136 mmol/L (136-145) 01/21/24 17:50 Potassium 3.7 mmol/L (3.5-5.1) 01/21/24 17:50 Chloride 105 mmol/L (98-107) 01/21/24 17:50 Carbon Dioxide 24 mmol/L (21-32) 01/21/24 17:50 Anion Gap 7 (3-11) 01/21/24 17:50 BUN 11 mg/dl (6-23) 01/21/24 17:50 Creatinine 1.20 mg/dl (0.6-1.4) 01/21/24 17:50 Est Cr Clr Drug Dosing 61.2 ml/min 01/21/24 17:50 Est GFR ( Amer) 79.0 ml/min 01/21/24 17:50 Est GFR (Non-Af Amer) 68.1 ml/min 01/21/24 17:50 BUN/Creatinine Ratio 9.2 (10-20) L 01/21/24 17:50 Glucose 130 mg/dl (70-99(Fasting)) H 01/21/24 17:50 Calcium 9.2 mg/dl (8.6-10.3) 01/21/24 17:50 Total Bilirubin 0.3 mg/dl (0.2-1.0) 01/21/24 17:50 AST 17 U/L (13-39) 01/21/24 17:50 ALT 19 U/L (7-52) 01/21/24 17:50 Alkaline Phosphatase 76 U/L (34-104) 01/21/24 17:50 Troponin I High Sens 23.4 pg/ml (0-20) H 01/21/24 Unknown Total Protein 7.0 gm/dl (6.0-8.3) 01/21/24 17:50 Albumin 4.3 gm/dl (3.4-5.0) 01/21/24 17:50 Globulin 2.7 gm/dl (2.5-4.0) 01/21/24 17:50 Albumin/Globulin Ratio 1.6 (0.9-2) 01/21/24 17:50 Lipase 28 U/L (11-82) 01/21/24 17:50 Impressions Chest X-Ray 01/21/24 17:46 XR chest 1V not portable CLINICAL HISTORY: Chest pain, nonspecific TECHNIQUE: Single frontal radiograph of the chest was obtained. Comparison: Comparison is made to chest radiograph 01/12/2024 FINDINGS: No lines and tubes are seen. The cardiomediastinal silhouette is normal. The lungs are clear. No evidence of pleural effusion or pneumothorax. IMPRESSION: No acute chest disease. ACT 112: Negative or not required by law. Electronically signed by: Vadim Cunha M.D. 01/21/2024 6:23 PM ECG Additional Comments: EKG. Normal sinus rhythm with rate of 67. Right superior axis deviation. Q waves in inferior leads. T wave inversions in inferior leads Code Status & VTE Plan VTE Prophylaxis Plan VTE Prophylaxis will be ordered: Yes
[2024-01-21] MEDS: MoRPHine SULFATE 2 MG/ML CARP IV STA (21:15)
[2024-01-21] MEDS ORDERED: MoRPHine SULFATE 2 MG/ML CARP IV PRN (23:02)
[2024-01-21] MEDS ORDERED: ACETAMINOPHEN 325 MG TAB PO PRN (23:02)
[2024-01-21] MEDS ORDERED: ALBUTEROL 0.083% NEBU SOLN 3 ML VIAL INH PRN (23:02)
[2024-01-21] MEDS ORDERED: NITROGLYCERIN SL 0.4 MG/TAB TAB SL PRN (23:02)
[2024-01-21] MEDS ORDERED: DICYCLOMINE HCL 10 MG CAP PO PRN (23:02)
[2024-01-21] MEDS ORDERED: POLYETHYLENE (MIRALAX) 17 GM PACK PO PRN (23:02)
--- NOTE | 2024-01-21 23:57 | Emergency Department Note ---
History of Present Illness General Chief Complaint: Chest Pain Stated Complaint: CHEST PAIN,DIZZY,TUNNEL VISION Time Seen by Provider: 01/21/24 18:02 History of Present Illness Provider Complaint: chest pain Time: 12:00 Duration: intermittent and improved Onset: during exertion Pain Location: substernal Pain Radiation: none Maximum Pain Intensity: 8 Current Pain Intensity: 0 Quality: + heaviness Relieved By: + rest Exacerbated By: + exertion Context: no recent illness, no recent surgery, no recent immobilization, no recent travel, no trauma/injury, no new medications or no history of DVT/PE Associated symptoms: + dyspnea; no nausea, no vomiting, no diaphoresis, no syncope, no palpitations, no fever, no cough or no leg swelling Home Medications Medication Instructions Recorded Confirmed Type nitroglycerin 0.4 mg sublingual 0.4 mg sublingual .EVERY 5 MINUTES 10/07/18 01/21/24 History tablet (Nitrostat) PRN Chest Pain dicyclomine 10 mg capsule 10 mg PO BID PRN Abdominal Pain 12/06/20 01/21/24 History ezetimibe 10 mg tablet 10 mg PO QAM 12/06/20 01/21/24 History famotidine 40 mg tablet 40 mg PO HS 12/06/20 01/21/24 History magnesium oxide 400 mg PO QAM 12/06/20 01/21/24 History pantoprazole 40 mg tablet,delayed 40 mg PO QAM 08/20/21 01/21/24 History release aspirin 81 mg tablet,delayed 81 mg PO QAM #30 tabs 05/24/23 01/21/24 Rx release rosuvastatin 40 mg tablet 40 mg PO QAM 06/07/23 01/21/24 History spironolactone 25 mg tablet 12.5 mg (1/2 x 25 mg) PO QAM #15 06/08/23 01/21/24 Rx tabs albuterol sulfate 2.5 mg/3 mL 2.5 mg inhalation Q4H PRN 07/09/23 01/21/24 History (0.083 %) solution for nebulization Shortness Of Breath Or Wheezing metoprolol succinate 25 mg 25 mg PO AMHS 07/27/23 01/21/24 History tablet,extended release 24 hr ticagrelor 90 mg tablet (Brilinta) 90 mg PO AMHS 07/27/23 01/21/24 History sertraline 100 mg tablet 100 mg PO QAM 10/21/23 01/21/24 History Allergies Allergy/AdvReac Type Severity Reaction Status Date / Time isosorbide [From Imdur] AdvReac Severe severe Verified 01/21/24 18:10 migraine Past Med/Surg History Medical History ST elevation myocardial infarction (STEMI) Recurrent pancreatitis COVID-29 Oct 2021 Acute pancreatitis Grade II diastolic dysfunction Barretts esophagus Mobitz type 2 second degree atrioventricular block Tobacco abuse Splenic infarct HLD (hyperlipidemia) RADHA (generalized anxiety disorder) CAD (coronary artery disease) 2017-RCA stent x 2 07/2020-STEMI, s/p PCI to left circumflex with 2 MELLY. Post procedure complicated by V. fib arrest requiring defibrillation. 12/2020-NSTEMI s/p 3 Xience MELLY to the distal aspect of prior stent of the left posterior lateral branch vessel Depression GERD (gastroesophageal reflux disease) Surgical History History of endoscopic retrograde cholangiopancreatography x2 (08/31, 09/30) Hx laparoscopic cholecystectomy (08/22/21) Laparoscopic Cholecystectomy Dr. Davidson 08/22/2021 History of vasectomy Family History Mother Gallbladder disease Sister Gallbladder disease Other Diabetes Stroke Denies family history of Pancreatic disease Social History Smoking Status: Heavy tobacco smoker Tobacco Type: Cigarettes Cigarettes Per Day: 3; Second Hand Exposure: No; Do You Dip or Chew Tobacco: No; Hx Alcohol Use: No Hx Substance Use: No Preferred Language: Citizen Of [place] Communication Ability: Effective Business Objects Analyst Required: No Beliefs That Will Affect Care: None marital status: Single Current Living Situation: Alone current occupational status: employed Other Information That Helps Us Care for You: No Feels Safe at Home: Yes Safety Concerns: Feels Safe At This Time Assistive Devices: Glasses Physical Exam Vital Signs Vital Signs - 24 hr 01/21/24 17:43 01/21/24 17:43 01/21/24 18:16 Temperature 36.9 C Temperature Source Temporal Artery Scan Pulse Rate 86 80 Pulse Rate from SpO2 Sensor 75 Respiratory Rate 19 20 Respiratory Effort / Characteristics Short of Breath SOB on Exertion Blood Pressure 168/94 H Blood Pressure Mean 118 Pulse Oximetry 98 98 Oxygen Delivery Method Room Air Sepsis Recent Fever Within 48 Hours No Sepsis New/Unexplained Change in Mental Status N/A Sepsis Action Taken by Nursing No Action Required 01/21/24 18:17 01/21/24 18:30 01/21/24 18:59 Temperature Temperature Source Pulse Rate 90 81 Pulse Rate from SpO2 Sensor 80 Respiratory Rate 22 Respiratory Effort / Characteristics Blood Pressure 170/98 H Blood Pressure Mean 108 Pulse Oximetry 97 Oxygen Delivery Method Sepsis Recent Fever Within 48 Hours Sepsis New/Unexplained Change in Mental Status Sepsis Action Taken by Nursing 01/21/24 18:59 01/21/24 19:00 01/21/24 19:06 Temperature Temperature Source Pulse Rate 87 61 82 Pulse Rate from SpO2 Sensor 61 80 Respiratory Rate 23 20 20 Respiratory Effort / Characteristics Blood Pressure Blood Pressure Mean Pulse Oximetry 98 96 Oxygen Delivery Method Sepsis Recent Fever Within 48 Hours Sepsis New/Unexplained Change in Mental Status Sepsis Action Taken by Nursing 01/21/24 19:06 01/21/24 19:15 01/21/24 19:15 Temperature Temperature Source Pulse Rate 70 Pulse Rate from SpO2 Sensor 70 Respiratory Rate 24 Respiratory Effort / Characteristics Blood Pressure 136/89 135/92 Blood Pressure Mean 99 110 Pulse Oximetry 96 Oxygen Delivery Method Sepsis Recent Fever Within 48 Hours Sepsis New/Unexplained Change in Mental Status Sepsis Action Taken by Nursing 01/21/24 19:30 01/21/24 19:30 01/21/24 19:45 Temperature Temperature Source Pulse Rate 72 64 Pulse Rate from SpO2 Sensor 61 Respiratory Rate 24 20 Respiratory Effort / Characteristics Blood Pressure 139/87 Blood Pressure Mean 103 Pulse Oximetry 98 99 Oxygen Delivery Method Sepsis Recent Fever Within 48 Hours Sepsis New/Unexplained Change in Mental Status Sepsis Action Taken by Nursing 01/21/24 19:45 01/21/24 20:00 01/21/24 20:00 Temperature Temperature Source Pulse Rate 70 Pulse Rate from SpO2 Sensor 71 Respiratory Rate 18 Respiratory Effort / Characteristics Blood Pressure 127/73 117/85 Blood Pressure Mean 87 97 Pulse Oximetry 99 Oxygen Delivery Method Sepsis Recent Fever Within 48 Hours Sepsis New/Unexplained Change in Mental Status Sepsis Action Taken by Nursing 01/21/24 20:15 01/21/24 20:15 01/21/24 20:30 Temperature Temperature Source Pulse Rate 85 72 Pulse Rate from SpO2 Sensor 81 69 Respiratory Rate 16 17 Respiratory Effort / Characteristics Blood Pressure 140/80 Blood Pressure Mean 100 Pulse Oximetry 99 97 Oxygen Delivery Method Sepsis Recent Fever Within 48 Hours Sepsis New/Unexplained Change in Mental Status Sepsis Action Taken by Nursing 01/21/24 20:30 01/21/24 20:45 01/21/24 20:45 Temperature Temperature Source Pulse Rate 73 Pulse Rate from SpO2 Sensor 73 Respiratory Rate 23 Respiratory Effort / Characteristics Blood Pressure 140/99 138/98 Blood Pressure Mean 106 108 Pulse Oximetry 99 Oxygen Delivery Method Sepsis Recent Fever Within 48 Hours Sepsis New/Unexplained Change in Mental Status Sepsis Action Taken by Nursing Physical Exam GENERAL: oriented to person, place, and time. appears well-developed and well- nourished. HENT: Exam performed. - Head: Normocephalic and atraumatic. EYES: Conjunctivae and EOM are normal. Right eye exhibits no discharge. Left eye exhibits no discharge. No scleral icterus. NECK: Normal range of motion. Neck supple. No JVD present. CV: Normal rate, regular rhythm, normal heart sounds and intact distal pulses. There is no peripheral edema. Palpable radial pulses bue. PULM/CHEST: Effort normal and breath sounds normal. No respiratory distress. No stridor. no wheezes. no rales. ABD: The abdomen is soft. There is no tenderness. NEURO: Motor and sensation grossly intact. SKIN: Skin is warm and dry. He is not diaphoretic. PSYCH: normal mood and affect. Behavior is normal. Judgment and thought content normal. Course Course 1801: The patient was evaluated in room B12. A complete history and physical exam was performed Administered Medications Discontinued Medications Aspirin (Aspirin Chew 324 Mg) 324 mg PO NOW STA Stop: 01/21/24 18:47 Last Admin: 01/21/24 19:00 Dose: 324 mg Documented By: BALDOMERO Sodium Chloride (Nss) 1,000 mls @ 999 mls/hr IV .Q1H1M ONE Stop: 01/21/24 19:46 Last Infusion: 01/21/24 20:08 Dose: Infused Documented By: Admin: 01/21/24 19:00 Dose: 999 mls/hr Documented By: BALDOMERO Morphine Sulfate (Morphine Sulfate 2 Mg/Ml Carp) 2 mg IV NOW STA Stop: 01/21/24 20:44 Last Admin: 01/21/24 21:15 Dose: 2 mg Documented By: BALDOMERO Nitroglycerin (Nitroglycerin Sl 0.4 Mg/Tab Tab) 0.4 mg SL NOW STA Stop: 01/21/24 18:47 Last Admin: 01/21/24 19:00 Dose: 0.4 mg Documented By: BALDOMERO Medical Decision Making Laboratory Data Attestation: I reviewed the patient's lab results. 01/21/24 17:50 01/21/24 17:50 Labs: Lab Results 01/21/24 Range/Units 17:50 WBC 7.91 (4.8-10.8) K/ul RBC 4.35 L (4.70-6.10) M/uL Hgb 14.2 (14.0-18.0) g/dl Hct 41.2 L (42.0-52.0) % MCV 94.7 (80.0-100.0) fL MCH 32.6 (25.0-34.0) pg MCHC 34.5 (32.0-36.0) g/dL RDW Std Deviation 47.0 H (36.4-46.3) fL RDW Coeff of Mckinley 13.3 (11.5-14.5) % Plt Count 215 (130-400) K/uL MPV 9.2 L (9.4-12.4) fL Immature Gran % (Auto) 0.3 % Neut % (Auto) 59.8 % Lymph % (Auto) 30.5 % [place] % (Auto) 6.4 % Eos % (Auto) 2.0 % Baso % (Auto) 1.0 % Neut # (Auto) 4.73 (1.40-6.50) K/uL Lymph # (Auto) 2.41 (1.20-3.40) K/uL [place] # (Auto) 0.51 (0.11-0.59) K/uL Eos # (Auto) 0.16 (0.00-0.50) K/uL Baso # (Auto) 0.08 (0.00-0.20) K/uL Immature Gran # (Auto) 0.02 (0.01-0.20) K/uL PT 10.0 (9.0-12.0) Seconds INR 0.9 (0.9-1.1) APTT 29 (21-31) Seconds PTT Ratio 1.0 Sodium 136 (136-145) mmol/L Potassium 3.7 (3.5-5.1) mmol/L Chloride 105 (98-107) mmol/L Carbon Dioxide 24 (21-32) mmol/L Anion Gap 7 (3-11) BUN 11 (6-23) mg/dl Creatinine 1.20 (0.6-1.4) mg/dl Est Cr Clr Drug Dosing 61.2 ml/min Est GFR ( Amer) 79.0 ml/min Est GFR (Non-Af Amer) 68.1 ml/min BUN/Creatinine Ratio 9.2 L (10-20) Glucose 130 H (70-99(Fasting)) mg/dl Calcium 9.2 (8.6-10.3) mg/dl Total Bilirubin 0.3 (0.2-1.0) mg/dl AST 17 (13-39) U/L ALT 19 (7-52) U/L Alkaline Phosphatase 76 (34-104) U/L Troponin I High Sens 23.3 H (0-20) pg/ml Total Protein 7.0 (6.0-8.3) gm/dl Albumin 4.3 (3.4-5.0) gm/dl Globulin 2.7 (2.5-4.0) gm/dl Albumin/Globulin Ratio 1.6 (0.9-2) Lipase 28 (11-82) U/L Imaging Data Chest x-ray: Attestation: I personally reviewed and interpreted this imaging study as follows: My impression: Chest x-ray negative. Airway clear. No pneumothorax. No consolidation. No cardiomegaly or cephalization.. No free air under the diaphragm. No fractures of the skeletal structures. Radiologist's impression: Chest X-Ray 01/21/24 17:46 XR chest 1V not portable CLINICAL HISTORY: Chest pain, nonspecific TECHNIQUE: Single frontal radiograph of the chest was obtained. Comparison: Comparison is made to chest radiograph 01/12/2024 FINDINGS: No lines and tubes are seen. The cardiomediastinal silhouette is normal. The lungs are clear. No evidence of pleural effusion or pneumothorax. IMPRESSION: No acute chest disease. ACT 112: Negative or not required by law. Electronically signed by: Vadim Cunha M.D. 01/21/2024 6:23 PM ECG Data Attestation: I personally reviewed and interpreted this ECG as follows: Additional Comments: EKG #1 at 1748: Sinus rhythm with rate of 67. [place] QRS and QTc intervals within normal limits. No ST elevation or ST depression. EKG #2 at 2004: Sinus rhythm with rate of 62. [place] QRS and QTc intervals within normal limits. No ST elevation or ST depression MDM Narrative Cardiac monitoring: An order was placed for continuous cardiac monitoring. The monitor shows a rate of 70 with sinus rhythm interpreted by me Vital signs stable. Labs and imaging within normal limits with exception of minimally elevated high-sensitivity troponin of 23.3. Patient will be admitted to the [facility] team for chest pain. Impression & Plan Elevated troponin, Chest pain Discharge Plan Visit Data Chief Complaint: Chest Pain Stated Complaint: CHEST PAIN,DIZZY,TUNNEL VISION ED Provider: Roney Prasad Discharge Problem: Elevated troponin, Chest pain Patient Disposition: Admitted As Inpatient Discharge Instructions Interventions: ED Discharge Assessment Last Done: 01/21/24 22:42 Discharge Problem: Chest pain Qualifiers: Chest pain type: unspecified Qualified Code(s): R07.9 - Chest pain, unspecified
[2024-01-22] MEDS: TICAGRELOR 90 MG TAB PO SCH (00:14)
[2024-01-22] MEDS: METOPROLOL SUCC 25MG EXT REL TAB PO SCH (00:14)
[2024-01-22] MEDS: FAMOTIDINE 40 MG TABLET PO SCH (00:39)
[2024-01-22 06:07] LABS: Basophils # (auto) 0.06 K/uL (0.00-0.20); Eosinophils # (auto) 0.14 K/uL (0.00-0.50); Eosinophils % (auto) 2.2 %; Hematocrit (blood only) 38.2 % (42.0-52.0); Hemoglobin 13.4 g/dl (14.0-18.0); Immature Granulocytes # (auto) 0.01 K/uL (0.01-0.20); Immature Granulocytes % (auto) 0.2 %; Lymphocytes # (auto) 1.71 K/uL (1.20-3.40); Lymphocytes % (auto) 27.2 %; Mean Corpuscular Hemoglobin 32.8 pg (25.0-34.0); Mean Corpuscular Hgb Conc 35.1 g/dL (32.0-36.0); Mean Corpuscular Volume 93.6 fL (80.0-100.0); Mean Platelet Volume 9.1 fL (9.4-12.4); Monocytes # (auto) 0.37 K/uL (0.11-0.59); Monocytes % (auto) 5.9 %; Neutrophils % (auto) 63.5 %; Platelet Count 183 K/uL (130-400); RDW Coefficient of Variation 13.5 % (11.5-14.5); RDW Standard Deviation 46.2 fL (36.4-46.3); Red Blood Count 4.08 M/uL (4.70-6.10); White Blood Count 6.29 K/ul (4.8-10.8)
[2024-01-22 06:16] LABS: BUN Creatinine Ratio 8.9 (10-20); Calcium 8.7 mg/dl (8.6-10.3); Creatinine Clr Calc Pharmacy 72.7 ml/min; Est GFR (African American) 97.3 ml/min; Est GFR (Non-African American) 83.9 ml/min; Magnesium 1.9 mg/dl (1.7-2.4); Potassium 3.8 mmol/L (3.5-5.1)
[2024-01-22 06:23] LABS: Troponin I High Sensitivity 17.1 pg/ml (0-20)
--- NOTE | 2024-01-22 07:07 | Cardiology Consultation ---
Date of Consultation January 22, 2024 Assessment & Plan (1) Lightheadedness: (2) SVT (supraventricular tachycardia): (3) Ischemic cardiomyopathy: (4) Non-sustained ventricular tachycardia: (5) Bradycardia: Plan Patient admitted with episode of lightheadedness/near syncope and chest tightness. Yesterday during this episode he caught an episode of tachycardia on his smart watch and this strip was reviewed and consistent with SVT around 180 bmp. Duration unknown. No recurrent arrhythmias since admission. He has resting sinus bradycardia in the 50's on current dose of metoprolol 25 mg BID. Beta shay dose has been limited in the past due to bradycardia. He also has a history of non sustained VT, related to his ischemic cardiomyopathy. Recommend proceeding with repeat 2 week ZIO monitor to reassess bradycardia and arrhythmias. Borderline tachybrady. May benefit from future pacemaker to allow additional beta shay or antiarrhythmic (with/without ICD). He has complex history of coronary artery disease and last cath in 07/2023 revealed no area of possible intervention. Medical management recommended. HS troponin in the 20's since admission and flat. No EKG changes to suggest acute coronary syndrome. Currently chest pain improved and at his "baseline". He has known chronic CP. Echocardiogram has been ordered and results pending. He has been intolerant of Isosorbide in the past. Continue ASA, Brilinta, statin, zetia He has not been on JOYCE/ARB due to hypotension. He does take low dose spironolactone. Continue current outpatient meds. At this time, would not recommend any further cardiac testing. Continue home/oral cardiac medications including current dose of beta shay. Will arrange 14 day ZIO monitor to be placed as an outpatient and consider EP evaluation after ZIO. Case discussed with Dr. Whittaker I spent a total of 55 minutes on the date of service in preparation, delivery, and documentation of the care provided to this patient, excluding any time spent in the performance of separately billed services. Carmen Hutton PA-C Department of Cardiology, [facility] This chart was completed in part utilizing Speech Voice Recognition Software. Grammatical errors, random word insertions, pronoun errors, and incomplete sentences are an occasional consequence of this system due to software limitations, ambient noise, and hardware issues. Any formal questions or concerns about the content, text, or information contained within the body of this dictation should be directly addressed to the provider for clarification. Supervising Physician Co-Signing Physician Notes I have reviewed the advance practitioner's documentation, and I agree with, and take responsibility for the plan of care. 53-year-old male admitted due to chest discomfort, near syncope, and tunnel vision. Asymptomatic since admission. Telemetry feeling sinus bradycardia. Minimally elevated high-sensitivity troponin which are flat. Chronic anginal pattern stable prior to admission. PE: VSS. Bradycardia. General: NAD, awake alert orient x 3. Heart: Regular rhythm, bradycardia, normal S1-S2. No murmur. Lungs: Clear bilateral, no rales, rhonchi, wheeze. Ext: No edema. A/P: Patient admitted with chest discomfort, light headedness, near syncope possibly related to paroxysmal supraventricular tachycardia. Treatment options limited due to resting bradycardia. Repeat echocardiogram demonstrates unchanged left ventricular systolic function with mild mitral regurgitation. Will further assess with 14-day ZIO monitor. Outpatient electrophysiology consultation to consider loop recorder implantation versus EPS. History of Present Illness Reason for Consultation: chest pain Requesting Physician: Dr. Singh Attending Physician: Dr. Whittaker History of Present Illness Patient is a complex 53-year-old male who presents to [facility] for evaluation of chest pain, dizziness. Known to [facility] cardiology, Dr. Tamez. Patient had presented to ER last week with similar symptoms of chest pain and dizziness. He underwent work up which was unremarkable and he was discharged. Yesterday he had a recurrent spell and he captured an episode of tachycardia on his watch, which he sent through [employer] fidel to review. Appears to be episode of SVT converting to sinus bradycardia. Duration unknown but patinet reports dizziness and chest tightness lasted about 10 minutes. He reports intermittent "tunnel vision" with these dizzy spells. No LOC/syncope. He otherwise reports his chest pain has been "good". He has chronic symptoms but feels this is unchanged. No recent nitro use. Has been intolerant of isosorbide and meds limited due to sinus bradycardia and hypotension. Since admission, EKG demonstrated sinus bradycardia without ST/T wave abnormalities. HS troponin 20's and flat. Chest xray was clear. No arrhythmias on telemetry. At time of consult this morning patient reports feeling "well". No recurrent dizziness or lightheadedness since admission. Chest pain back to "baseline". No orthopnea, PND or edema. BP and HR controlled. Past medical history: *Premature coronary artery disease with ischemic cardiomyopathy -03/15/2018: NSTEMI, severe culprit single-vessel CAD with 99% mid RCA, 40% proximal LAD, and 50% mid LAD (PCI of proximal to mid and late/mid RCA with x 2 MELLY, 3.5 x 18 mm, 3.25 x 15 mm Xience) moderate to severe mid LAD disease by IVUS, 60 to 70%, no significant ostial/proximal LAD disease -10/25/2018:Repeat cardiac catheterization , Moderate non-obstructive coronary artery disease. 60% mid LAD (FFR 0.85). - 08/08/2020:Inferior STEMI with 100% acute distal left circumflex occlusion at bifurcation with large PLB, moderate nonobstructive CAD, 50 to 60% mid LAD stenosis unchanged from 10/2018, widely patent RCA stents. Cath complicated by V-fib arrest requiring defibrillation x 1 and postarrest cardiogenic shock requiring norepinephrine. Successful PCI of PLB/distal circumflex bifurcation with 2 drug-eluting stents (2.75 x 15 mm Dearing into left PLB, 2.25 x 12 mm Mariano into distal circumflex). -01/01/2021 : NSTEMI with successful PCI of mid circumflex in the left PLB with x3 Xience drug-eluting stents (2.5 x 18 overlapping proximal aspect of prior stent, 2.5 x 12, 2.25 x 12 extending from distal aspect of prior stent in the left PLB; postdilated with 3.0 NC -- now at total of 5 stents at bifurcation with LPLB/distal circumflex) -Angioplasty into prior distal circumflex stent with 2.0 balloon -10/10/2022: NSTEMI reocclusion of previously stented circumflex into posterior lateral branch, status post successful PCI with x 1 MELLY proximally and PTCA throughout the previous stented train. Moderate disease in the LAD unchanged, previously placed RCA stent patent. Note: Given poor myocardial blush on prior study as well as current study in combination with recurrent stent thrombosis I suspect a long-term patency will be limited. There is probably some degree of acute microvascular occlusion from thrombus but also significant myocardial scarring. 05/20/2023:STEMI, Circumflex territory -- Culprit lesion secondary to thrombus of the prior stent train in the left circumflex and with involvement of previously untreated large OM1. Successful PCI of the AV groove circumflex into the large trifurcating OM1 with implantation of a large caliber drug-eluting stent. Unsuccessful attempt to reopen the previously placed long stent train in the mid to distal AV groove circumflex and a branch of that vessel. -repeat cath at [facility] 07/2023 without new target for revascularization. Medical management recommended - * The target lesion we wanted to fix was mid circumflex at the ostium with OM1 bifurcation which had 80% InStent restenosis. There is also 95% InStent restenosis in distal LPL branch. We attempted to perform POBA of the lesion (has 2 prior stent layers). We were not able to pass even the smallest profile balloon that we have (1.25mm). We used [employer] for additi onal support. There was some concern for wire passing behind the strut so we tried to wire the lesion multiple times with a loop so that we stay intraluminal. Despite this, we were not able to pass balloon for POBA. This was harder than anticipated because of prior 2 layers of stents, acute angle of OM1 takeoff and advanced disease. * Mid LAD has 50% stenosis Prior Cx stent is patent Other history includes: Non sustained VT, beta shay limited due to bradycardia Hyperlipidemia Tobacco use, smokes 1/2 pack of cigarettes daily-quit 05/2023. Chronic pancreatitis GERD Allergies Allergy/AdvReac Type Severity Reaction Status Date / Time isosorbide [From Imdur] AdvReac Severe severe Verified 01/21/24 18:10 migraine Home Medications Medication Instructions Recorded Confirmed Type nitroglycerin 0.4 mg sublingual 0.4 mg sublingual .EVERY 5 MINUTES 10/07/18 01/21/24 History tablet (Nitrostat) PRN Chest Pain dicyclomine 10 mg capsule 10 mg PO BID PRN Abdominal Pain 12/06/20 01/21/24 History ezetimibe 10 mg tablet 10 mg PO QAM 12/06/20 01/21/24 History famotidine 40 mg tablet 40 mg PO HS 12/06/20 01/21/24 History magnesium oxide 400 mg PO QAM 12/06/20 01/21/24 History pantoprazole 40 mg tablet,delayed 40 mg PO QAM 08/20/21 01/21/24 History release aspirin 81 mg tablet,delayed 81 mg PO QAM #30 tabs 05/24/23 01/21/24 Rx release rosuvastatin 40 mg tablet 40 mg PO QAM 06/07/23 01/21/24 History spironolactone 25 mg tablet 12.5 mg (1/2 x 25 mg) PO QAM #15 06/08/23 01/21/24 Rx tabs albuterol sulfate 2.5 mg/3 mL 2.5 mg inhalation Q4H PRN 07/09/23 01/21/24 History (0.083 %) solution for nebulization Shortness Of Breath Or Wheezing metoprolol succinate 25 mg 25 mg PO [facility]HS 07/27/23 01/21/24 History tablet,extended release 24 hr ticagrelor 90 mg tablet (Brilinta) 90 mg PO AMHS 07/27/23 01/21/24 History sertraline 100 mg tablet 100 mg PO QAM 10/21/23 01/21/24 History Patient History Medical History ST elevation myocardial infarction (STEMI) Recurrent pancreatitis COVID-29 Oct 2021 Acute pancreatitis Grade II diastolic dysfunction Barretts esophagus Mobitz type 2 second degree atrioventricular block Tobacco abuse Splenic infarct HLD (hyperlipidemia) RADHA (generalized anxiety disorder) CAD (coronary artery disease) 2018-RCA stent x 2 07/2020-STEMI, s/p PCI to left circumflex with 2 MELLY. Post procedure complicated by V. fib arrest requiring defibrillation. 12/2020-NSTEMI s/p 3 Xience MELLY to the distal aspect of prior stent of the left posterior lateral branch vessel Depression GERD (gastroesophageal reflux disease) Surgical History History of endoscopic retrograde cholangiopancreatography x2 (08/31, 09/30) Hx laparoscopic cholecystectomy (08/22/21) Laparoscopic Cholecystectomy Dr. Davidson 08/22/2021 History of vasectomy Family History Mother Gallbladder disease Sister Gallbladder disease Other Diabetes Stroke Denies family history of Pancreatic disease Social History Smoking Status: Heavy tobacco smoker Tobacco Type: Cigarettes Cigarettes Per Day: 3; Second Hand Exposure: No; Do You Dip or Chew Tobacco: No; Hx Alcohol Use: No Hx Substance Use: No Preferred Language: [place] Communication Ability: Effective Class A Regional Drivers Required: No Beliefs That Will Affect Care: None marital status: Single Current Living Situation: Alone current occupational status: employed Other Information That Helps Us Care for You: No Feels Safe at Home: Yes Safety Concerns: Feels Safe At This Time Assistive Devices: Glasses Review of Systems Review of Systems: All systems reviewed & are unremarkable except as noted in HPI & below Physical Exam Constitutional: WD/WN, vitals as above + thin; no acute distress Neck: trachea midline, no thyromegaly Respiratory: normal respiratory effort; no labored breathing Auscultation: lungs clear to auscultation bilaterally Cardiovascular: Rate/Rhythm: regular rate and regular rhythm Heart Sounds: normal S1 and normal S2; no murmur Vessels: no JVD Extremities: no edema Gastrointestinal (Abdomen): normal bowel sounds, soft, nontender, no hepatosplenomegaly Neurologic: PERRL, EOMI, accommodation nl, no face palsy, no dysarthria Psychiatric: A+Ox3, euthymic affect Results & Data Vital Signs (Past 12 Hours) Vital Signs Temp Pulse Pulse Resp BP BP Pulse Ox 01/22/24 03:36 36.5 C 60 18 117/79 96 01/21/24 23:16 36.4 C L 61 18 156/87 H 98 01/21/24 23:05 01/21/24 22:50 36.4 C L 61 18 156/87 H 98 01/21/24 22:21 63 01/21/24 22:00 139/97 01/21/24 22:00 64 19 97 01/21/24 21:25 129/95 01/21/24 21:25 67 22 96 01/21/24 21:15 136/97 01/21/24 21:15 68 18 97 01/21/24 21:00 138/99 01/21/24 21:00 72 20 99 01/21/24 20:45 138/98 01/21/24 20:45 73 23 99 01/21/24 20:30 140/99 01/21/24 20:30 72 17 97 01/21/24 20:15 140/80 01/21/24 20:15 85 16 99 01/21/24 20:00 117/85 01/21/24 20:00 70 18 99 01/21/24 19:45 127/73 01/21/24 19:45 64 20 99 01/21/24 19:30 139/87 01/21/24 19:30 72 24 98 01/21/24 19:15 135/92 01/21/24 19:15 70 24 96 01/21/24 19:06 136/89 01/21/24 19:06 82 20 96 O2 Del Method 01/22/24 03:36 Room Air 01/21/24 23:16 Room Air 01/21/24 23:05 Room Air 01/21/24 22:50 Room Air 01/21/24 22:21 01/21/24 22:00 01/21/24 22:00 01/21/24 21:25 01/21/24 21:25 01/21/24 21:15 01/21/24 21:15 01/21/24 21:00 01/21/24 21:00 01/21/24 20:45 01/21/24 20:45 01/21/24 20:30 01/21/24 20:30 01/21/24 20:15 01/21/24 20:15 01/21/24 20:00 01/21/24 20:00 01/21/24 19:45 01/21/24 19:45 01/21/24 19:30 01/21/24 19:30 01/21/24 19:15 01/21/24 19:15 01/21/24 19:06 01/21/24 19:06 Laboratory Results Cardiac Enzymes 01/21/24 01/21/24 01/22/24 Range/Units 17:50 Unknown 05:37 AST 17 (13-39) U/L Troponin I High Sens 23.3 H 23.4 H 17.1 D (0-20) pg/ml Coagulation 01/21/24 Range/Units 17:50 PT 10.0 (9.0-12.0) Seconds APTT 29 (21-31) Seconds CBC 01/21/24 01/22/24 Range/Units 17:50 05:37 WBC 7.91 6.29 (4.8-10.8) K/ul RBC 4.35 L 4.08 L (4.70-6.10) M/uL Hgb 14.2 13.4 L (14.0-18.0) g/dl Hct 41.2 L 38.2 L (42.0-52.0) % Plt Count 215 183 (130-400) K/uL Neut # (Auto) 4.73 4.00 (1.40-6.50) K/uL Lymph # (Auto) 2.41 1.71 (1.20-3.40) K/uL Carson # (Auto) 0.51 0.37 (0.11-0.59) K/uL Eos # (Auto) 0.16 0.14 (0.00-0.50) K/uL Baso # (Auto) 0.08 0.06 (0.00-0.20) K/uL Comprehensive Metabolic Panel 01/21/24 01/22/24 Range/Units 17:50 05:37 Sodium 136 138 (136-145) mmol/L Potassium 3.7 3.8 (3.5-5.1) mmol/L Chloride 105 111 H (98-107) mmol/L Carbon Dioxide 24 22 (21-32) mmol/L BUN 11 9 (6-23) mg/dl Creatinine 1.20 1.01 (0.6-1.4) mg/dl Glucose 130 H 95 (70-99(Fasting)) mg/dl Calcium 9.2 8.7 (8.6-10.3) mg/dl AST 17 (13-39) U/L ALT 19 (7-52) U/L Alkaline Phosphatase 76 (34-104) U/L Total Protein 7.0 (6.0-8.3) gm/dl Albumin 4.3 (3.4-5.0) gm/dl Intake and Output 01/21/24 01/22/24 01/22/24 22:59 06:59 14:59 Intake Total 1000 / 1000 Balance 1000 / 1000 Intake: IV 1000 / 1000 Sodium Chloride 0.9% 1,000 ml @ 1000 / 1000 999 mls/hr IV .Q1H1M ONE Rx#: [id number] Other: Other Intake Source NPO Weight 61.7 kg 62 kg Weight Measurement Method Chair Scale Built in [facility] Diagnostic Findings Studies reviewed since admission: Telemetry reviewed: Sinus bradycardia in the 50's. No tachyarrhythmias. No VT or SVT. No pauses or symptomatic bradycardia. EKG reviewed from 01/21/24: NSR, old inferior infarct with T wave inversion in III No significant change from previous Chest X-Ray 01/21/24 17:46 XR chest 1V not portable IMPRESSION: No acute chest disease. Prior data reviewed ZIO report reviewed from Sep 2023: CONCLUSIONS: Prelminary Findings Prepared by CRISTA Thompson 10/06/23 Duration: 11 days ranging from 09/21/2023 until 10/02/2023 Final Interpretation : Patient had a min HR of 42 bpm, max HR of 141 bpm, and avg HR of 64 bpm. Predominant underlying rhythm was Sinus Rhythm. 1 run of Ventricular Tachycardia occurred lasting 4 beats with a max rate of 141 bpm (avg 114 bpm). Isolated SVEs were rare (<1.0%), SVE Couplets were rare (<1.0%), and SVE Triplets were rare (<1.0%). Isolated VEs were rare (<1.0%, 3379), VE Couplets were rare (<1.0%, 24), and VE Triplets were rare (<1.0%, 1). Ventricular Bigeminy and Trigeminy were present. 5 patient triggered events and 5 diary events were submitted for review. Three of these events correlated with sinus rhythm with premature ventricular contractions, the remaining events correlated with sinus rhythm ra nging from 57 beats per minute to 71 beats per minute. Echo 06/2023: Large sized apical, septal, inferior, and posterior wall motion abnormality wiht hypokinesis to akinesis of the segments. LVEF 35-40% Medications Administered Current Inpatient Medications Acetaminophen (Acetaminophen 325 Mg Tab) 650 mg PO Q4H PRN PRN Reason: Pain or Fever Stop: 02/20/24 23:01 Albuterol (Albuterol 0.083% Nebu Soln 3 Ml Vial) 2.5 mg INH Q4H PRN; Protocol PRN Reason: Shortness Of Breath Or Wheezing Stop: 02/20/24 23:01 Aspirin (Aspirin 81 Mg Ectab) 81 mg PO QAM ALYCIA Stop: 02/21/24 08:59 Dicyclomine HCl (Dicyclomine Hcl 10 Mg Cap) 10 mg PO BID PRN PRN Reason: Abdominal Pain Stop: 02/20/24 23:01 Ezetimibe (Ezetimibe 10 Mg Tab) [facility] Stop: 02/21/24 08:59 Famotidine (Famotidine 40 Mg Tablet) 40 mg PO HS [facility] Stop: 02/20/24 23:01 Last Admin: 01/22/24 00:39 Dose: 40 mg Magnesium Oxide (Magnesium Oxide 400 Mg Tab) 400 [facility] [place] Stop: 02/21/24 08:59 Metoprolol Succinate (Metoprolol Succ 25mg Ext Rel Tab) 25 mg PO BID [facility] Stop: 02/20/24 23:01 Last Admin: 01/22/24 00:14 Dose: 25 mg Morphine Sulfate (Morphine Sulfate 2 Mg/Ml Carp) 2 mg IV Q30M PRN PRN Reason: Chest Pain Stop: 02/04/24 23:01 Nitroglycerin (Nitroglycerin Sl 0.4 Mg/Tab Tab) 0.4 mg SL Q5M PRN PRN Reason: Chest Pain Stop: 02/20/24 23:01 Pantoprazole Sodium (Pantoprazole 40 Mg Tab) 40 mg PO [facility] Stop: 02/21/24 08:59 Polyethylene Glycol (Polyethylene (Miralax) 17 Gm Pack) 17 gm PO DAILY PRN PRN Reason: Constipation Stop: 02/20/24 23:01 Rosuvastatin Calcium (Rosuvastatin Calcium 20 Mg Tab) 40 mg PO [facility] Stop: 02/21/24 08:59 Sertraline HCl (Sertraline Hcl 100 Mg Tablet) 100 mg PO [facility] Stop: 02/21/24 08:59 Spironolactone (Spironolactone 12.5 Mg Tab) 12.5 mg PO [facility] Stop: 02/21/24 08:59 Ticagrelor (Ticagrelor 90 Mg Tab) 90 mg PO BID [facility] Stop: 02/20/24 23:01 Last Admin: 01/22/24 00:14 Dose: 90 mg
[2024-01-22] MEDS: SPIRONOLACTONE 12.5 MG TAB PO SCH (08:33)
[2024-01-22] MEDS: SERTRALINE HCL 100 MG TABLET PO SCH (08:34)
[2024-01-22] MEDS: ROSUVASTATIN CALCIUM 20 MG TAB PO SCH (08:34)
[2024-01-22] MEDS: MAGNESIUM OXIDE 400 MG TAB PO SCH (08:34)
[2024-01-22] MEDS: EZETIMIBE 10 MG TAB PO SCH (08:35)
[2024-01-22] MEDS: PANTOprazole 40 MG TAB PO SCH (08:35)
[2024-01-22] MEDS: ASPIRIN 81 MG ECTAB PO SCH (08:36)
--- NOTE | 2024-01-22 12:09 | Electrocardiogram Report ---
Test Reason : Blood Pressure : / mmHG Vent. Rate : 062 BPM Atrial Rate : 062 BPM P-R Int : 120 ms QRS Dur : 086 ms QT Int : 392 ms P-R-T Axes : 061 018 027 degrees QTc Int : 397 ms Normal sinus rhythm RSR' or QR pattern in V1 suggests right ventricular conduction delay Inferior infarct (cited on or before 10-JUL-2023) Abnormal ECG When compared with ECG of 12-JAN-2024 20:19, No significant change was found Confirmed by Neo Garrett ([id number]) on 01/22/2024 12:09:27 PM Referred By: REFERRED SELF Confirmed By:Neo Garrett
--- NOTE | 2024-01-22 13:06 | Discharge Summary ---
Discharge Summary Date of Service January 22, 2024 Notes For Next Care Provider Needs Cardiology follow up for Zio Patch Medication Changes From Visit None Admission HPI Per Admitting Provider 53-year-old male with past medical history significant for hyperlipidemia, history of ST elevated UT, CAD s/p stent, heart failure with reduced ejection fraction, ischemic cardiomyopathy, history of nonsustained ventricular tachycardia, Casanova's esophagus, GERD, tobacco use disorder, general anxiety disorder, history of pancreatitis, presents with chest pain. Patient states since afternoon he is having chest pain in the middle of the chest 9/10 severity. Earlier it was radiating to jaw and left arm but currently it is only in the chest. It's pressure-like feeling. Associated with diaphoresis, nausea, shortness of breath and dizziness. Denies any fevers. No cough. No headache. Vision is somewhat blurry. No runny nose or sore throat. No abdominal pain. Normal bowel and bladder movements. Hemodynamics are okay. Past medical history. As mentioned above Past surgical history. Cardiac cath and stent placement. Colonoscopy. EGD. EGD with endoscopic ultrasound. ERCP. Vasectomy. Social history. Smokes 0.3 packs daily. Smoking for last 31 years. Not drinking alcohol currently. No drug use. Family history. Mother had diabetes. Stroke. father had hypertension. Maternal grandmother had mental disorder Admission Exam Per Admitting Provider General- Not in distress Head- atraumatic Eyes- PERRL. ENT- oropharynx clear Neck- supple, no JVD. Lungs- clear to auscultation no wheezing or crackles. Heart- regular rate and rhythm; no murmur, no gallop. Abdomen- normal bowel sounds, soft, nontender, no distension. Extremities- no pretibial edema, no erythema seen. Neuro- alert, oriented PERRL, no facial palsy; no dysarthria; moves extremities. Principal Dx & Hospital Course #1 = Principal Diagnosis (1) Chest pain: Mr. Cazares is a 53-year-old male with past medical history significant for hyperlipidemia, history of ST elevated UT, CAD s/p stent, heart failure with reduced ejection fraction, ischemic cardiomyopathy, history of nonsustained ventricular tachycardia, Casanova's esophagus, GERD, tobacco use disorder, general anxiety disorder, history of pancreatitis, presents with chest pain. Patient states since afternoon he is having chest pain in the middle of the chest 9/10 severity. Earlier it was radiating to jaw and left arm but currently it is only in the chest. It's pressure-like feeling. Associated with diaphoresis, nausea, shortness of breath and dizziness. Denies any fevers. No cough. No headache. Vision is somewhat blurry. No runny nose or sore throat. No abdominal pain. Normal bowel and bladder movements. Hemodynamics are okay. Patient feels discomfort is now at baseline. No further events on Telemetry. ECHO stable. #Acute on chronic Chest pain #NSVT #Sinus Bradycardia #Chronic heart failure with moderately reduced EF 2/2 ischemic cardiomyopathy s/p stent Troponins flat in 20s History of CAD s/p stent Continue on On aspirin, Brilinta, Zetia, metoprolol succinate and rosuvastatin EF 35 to 40% echo done in June 2023 Repeat ECHO with stable EF 35-50% 01/22/2024 On metoprolol succinate and spironolactone Cardiology recommending OP Zio monitor, will be arranged upon discharge with Cardiology service Treatment options limited 2/2 sinus bradycardia, may eventually qualify for device #History of GERD #Casanova's esophagitis On Protonix and famotidine #Hyperlipidemia On statin #Generalized anxiety disorder On Zoloft Discharge Exam Constitutional WD/WN, vitals as above Respiratory normal respiratory effort, lungs clear to auscultation Cardiovascular bradycardic Updated Medication List Medication Instructions Recorded Confirmed Type nitroglycerin 0.4 mg sublingual 0.4 mg sublingual .EVERY 5 MINUTES 10/07/18 01/21/24 History tablet (Nitrostat) PRN Chest Pain dicyclomine 10 mg capsule 10 mg PO BID PRN Abdominal Pain 12/06/20 01/21/24 History ezetimibe 10 mg tablet 10 mg PO QAM 12/06/20 01/21/24 History famotidine 40 mg tablet 40 mg PO HS 12/06/20 01/21/24 History magnesium oxide 400 mg PO QAM 12/06/20 01/21/24 History pantoprazole 40 mg tablet,delayed 40 mg PO QAM 08/20/21 01/21/24 History release aspirin 81 mg tablet,delayed 81 mg PO QAM #30 tabs 05/24/23 01/21/24 Rx release rosuvastatin 40 mg tablet 40 mg PO QAM 06/07/23 01/21/24 History spironolactone 25 mg tablet 12.5 mg (1/2 x 25 mg) PO QAM #15 06/08/23 01/21/24 Rx tabs albuterol sulfate 2.5 mg/3 mL 2.5 mg inhalation Q4H PRN 07/09/23 01/21/24 History (0.083 %) solution for nebulization Shortness Of Breath Or Wheezing metoprolol succinate 25 mg 25 mg PO AMHS 07/27/23 01/21/24 History tablet,extended release 24 hr ticagrelor 90 mg tablet (Brilinta) 90 mg PO AMHS 07/27/23 01/21/24 History sertraline 100 mg tablet 100 mg PO QAM 10/21/23 01/21/24 History Hospital Stay Data Consultations 01/21/24 18:58 ED Decision to Admit Stat 01/22/24 08:00 Consult Cardiology Routine Pending Results Patient Have Any Pending Studies at Discharge: No Discharge Instructions Given to Patient (Per Discharging Provider) You were admitted with chest discomfort, light headedness, near syncope possibly related to paroxysmal supraventricular tachycardia. Treatment options limited due to resting bradycardia--or slow heart rate. Your repeat echocardiogram is similar to prior. Cardiology will arrange further assessment with 14-day ZIO monitor and refer you for outpatient electrophysiology consultation. There were no changes to your medications at this time. Please resume home regimen as prescribed. Total Time Total Time Spent Total Time Spent (In Minutes): 35
== END 2024-01-22 14:34 | disposition home or self-care (01) ==
LOC: ED 17:42 → 2N 17:42

== ENCOUNTER 2024-03-15 17:49 | Inpatient (IN) ==
--- NOTE | 2024-03-15 18:50 | Emergency Department Note ---
Impression & Plan Acute pancreatitis ADMIT ED Provider Note HPI: History obtained from patient. The patient is a 53-year-old gentleman with history of pancreatitis, coronary artery disease, presents the emergency department with a chief complaint of mid abdominal pain. Patient states that this is his third visit to the emergency room today. Patient states he was here in the ER this morning for chest pain, later in the day he developed lower abdominal pain and was seen a second time. Patient states that he was ultimately discharged home after both visits after unremarkable lab work was performed however he continues to have lower abdominal pain and therefore presented the third time today. Patient states he has not had any chest pain since he was discharged earlier this morning. Patient states the pain he is experiencing now is similar to that he had for his second visit today. Patient denies any vomiting, states the pain is over his mid abdomen. He states it does feel similar to issues he has had in the past with bouts of acute pancreatitis. ROS: - Per HPI Differential Diagnosis: Acute pancreatitis, acute coronary syndrome, acute gastritis, peptic ulcer disease, acute cholecystitis, choledocholithiasis, amongst other potential pathologies. *Outpatient medications and allergy history reviewed. PE: General: Alert HEENT: Normocephalic, trachea midline Eyes: Extraocular eye movement is intact, no scleral erythema Pulmonary: Clear to auscultation bilaterally, no wheezing Cardio: Regular rate and rhythm GI: Abdomen is soft to palpation, moderate tenderness over the mid abdomen to palpation without guarding or rigidity : No suprapubic tenderness MSK: No evidence of trauma or malformation of the extremities, no edema Skin: No evidence of rash Neuro: Alert, no focal deficits Psychiatric: Cooperative INDEPENDENT INTERPRETATIONS: ink maker: (As interpreted by myself): - An order was placed for continuous cardiac monitoring - Patient was noted to be in sinus rhythm with a rate of 62 EKG: (As interpreted by myself): Rate: 55 Rhythm: Sinus bradycardia Intervals: Within normal limits ST changes: No ST elevation Time: 1857 Interventions provided in ED: -IV fluid bolus, IV morphine Medical Decision Making: IV was established and lab work obtained, patient was placed on physical therapy professor. Lab work shows no leukocytosis, hemoglobin is normal, platelet count is normal, CMP does not show any critical findings, lipase is normal, there is no transaminitis, bilirubin is normal. Troponin is negative x 1, EKG per my review shows normal sinus rhythm without any acute ischemic changes. Urinalysis does not show any evidence of any blood or infection. CT imaging of the abdomen pelvis was obtained and shows evidence of acute pancreatitis versus duodenitis. There is no evidence of any biliary ductal dilatation on CT imaging, patient is noted to be status post cholecystectomy. Patient does have tenderness over the mid abdomen on my exam. Given that this is the patient's third presentation today with pain, I did advise on admission and the patient requested admission. Patient's case was discussed with the on-call hospitalist, Dr. Anne, and the patient was placed for admission in stable condition. Consultants/Discussions held with other healthcare providers: -Hospitalist, Dr. Anne Disposition discussion held by myself with: -Patient Diagnosis: 1. Acute pancreatitis 2. Abdominal pain, acute Disposition: Admission Deep Martinez DO Emergency Medicine Past Med/Surg History Problem List (Updated 03/15/24 @ 22:37 by Deep Martinez DO) Acute pancreatitis (Acute) History of coronary artery disease (Acute) History of acute pancreatitis (Acute) Epigastric abdominal pain (Acute) Atypical chest pain (Acute) History of coronary artery disease (Acute) History of acute pancreatitis (Acute) Precordial chest pain (Acute) Epigastric abdominal pain (Acute) SVT (supraventricular tachycardia) Chest pain (Acute) Acute pancreatitis (Acute) GERD (gastroesophageal reflux disease) Chest pain (Acute) Ischemic cardiomyopathy Non-sustained ventricular tachycardia (Acute) Elevated troponin (Acute) Bradycardia (Acute) Chronic pancreatitis Sinus bradycardia Chest pain (Acute) Hematoma Tobacco abuse Recurrent pancreatitis Non-ST elevation (NSTEMI) myocardial infarction (Acute) Acute on chronic pancreatitis Abdominal pain (Acute) Lesion of pancreas Elevated lipase Pancreatitis (Acute) Chest pain (Acute) Chest pain Acute pancreatitis (Acute) Abdominal pain, periumbilical (Acute) Anemia Hypomagnesemia Hypophosphatemia Hx laparoscopic cholecystectomy (08/22/21) Laparoscopic Cholecystectomy Dr. Davidson 08/22/2021 Grade II diastolic dysfunction Barretts esophagus Acute pancreatitis (Acute) Non-ST elevation [place] (NSTEMI) (Acute) Breath shortness (Acute) DVT prophylaxis Chest pain (Acute) HLD (hyperlipidemia) RADHA (generalized anxiety disorder) CAD (coronary artery disease) (Acute) 2018-RCA stent x 2 07/2020-STEMI, s/p PCI to left circumflex with 2 MELLY. Post procedure complicated by V. fib arrest requiring defibrillation. 12/2020-NSTEMI s/p 3 Xience MELLY to the distal aspect of prior stent of the left posterior lateral branch vessel Depression GERD (gastroesophageal reflux disease) (Acute) Medical History ST elevation myocardial infarction (STEMI) COVID-29 Oct 2021 Mobitz type 2 second degree atrioventricular block Tobacco abuse Splenic infarct Surgical History History of endoscopic retrograde cholangiopancreatography x2 (08/31, 09/30) Hx laparoscopic cholecystectomy (08/22/21) Laparoscopic Cholecystectomy Dr. Davidson 08/22/2021 History of vasectomy Family History Mother Gallbladder disease Sister Gallbladder disease Other Diabetes Stroke Denies family history of Pancreatic disease Social History Smoking Status: Current every day smoker Tobacco Type: Cigarettes Cigarettes Per Day: 3; Second Hand Exposure: No; Do You Dip or Chew Tobacco: No; Hx Alcohol Use: No Hx Substance Use: No Preferred Language: Honduran Communication Ability: Effective Hotel Assistant Manager Required: No Beliefs That Will Affect Care: None marital status: Single Current Living Situation: Alone current occupational status: employed Feels Safe at Home: Yes Assistive Devices: Glasses Allergies Allergies Allergy/AdvReac Type Severity Reaction Status Date / Time isosorbide [From Imdur] AdvReac Severe severe Verified 03/15/24 20:38 migraine Home Meds Home Medications Medication Instructions Recorded Confirmed nitroglycerin 0.4 mg sublingual 0.4 mg sublingual .EVERY 5 MINUTES 10/07/18 03/15/24 tablet (Nitrostat) PRN Chest Pain dicyclomine 10 mg capsule 10 mg PO BID PRN Abdominal Pain 12/06/20 03/15/24 ezetimibe 10 mg tablet 10 mg PO QAM 12/06/20 03/15/24 famotidine 40 mg tablet 40 mg PO HS PRN Acid Reflux 12/06/20 03/15/24 magnesium oxide 400 mg PO QAM 12/06/20 03/15/24 pantoprazole 40 mg tablet,delayed 40 mg PO QAM 08/20/21 03/15/24 release rosuvastatin 40 mg tablet 40 mg PO QAM 06/07/23 03/15/24 metoprolol succinate 25 mg 25 mg PO AMHS 07/27/23 03/15/24 tablet,extended release 24 hr ticagrelor 90 mg tablet (Brilinta) 90 mg PO AMHS 07/27/23 03/15/24 sertraline 100 mg tablet 100 mg PO QAM 10/21/23 03/15/24 sucralfate 1 gram tablet 1 g PO ACHS PRN Stomach Upset 03/01/24 03/15/24 Previous Rx's Medication Instructions Recorded aspirin 81 mg tablet,delayed 81 mg PO QAM #30 tabs 05/24/23 release spironolactone 25 mg tablet 12.5 mg (1/2 x 25 mg) PO QAM #15 06/08/23 tabs oxycodone 5 mg tablet 5 mg PO Q6H PRN pain #7 tabs 03/15/24 Results & Data (ED) Vital Signs Vital Signs - 24 hr 03/15/24 17:52 03/15/24 18:21 03/15/24 18:21 Temperature 36.7 C Temperature Source Temporal Artery Scan Pulse Rate 89 84 Pulse Rate [Apical] 86 Pulse Rate from SpO2 Sensor 85 Pulse Rhythm Pulse Rhythm [Apical] Regular Pulse Strength [Apical] Normal Respiratory Rate 20 18 29 H Respiratory Effort / Characteristics Non-Labored Spontaneous Respiratory Depth Normal Respiratory Pattern Regular Blood Pressure 142/87 H Blood Pressure [Right Arm] 159/96 H Blood Pressure Mean 105 Blood Pressure Mean [Right Arm] 117 Pulse Oximetry 97 96 96 Oxygen Delivery Method Room Air Room Air Sepsis Recent Fever Within 48 Hours No Sepsis New/Unexplained Change in Mental Status N/A Sepsis Action Taken by Nursing No Action Required 03/15/24 18:55 03/15/24 19:03 03/15/24 19:12 Temperature Temperature Source Pulse Rate 79 69 Pulse Rate [Apical] Pulse Rate from SpO2 Sensor 81 68 Pulse Rhythm Regular Pulse Rhythm [Apical] Pulse Strength [Apical] Respiratory Rate 20 24 26 H Respiratory Effort / Characteristics Respiratory Depth Respiratory Pattern Blood Pressure Blood Pressure [Right Arm] Blood Pressure Mean Blood Pressure Mean [Right Arm] Pulse Oximetry 95 96 95 Oxygen Delivery Method Room Air Sepsis Recent Fever Within 48 Hours Sepsis New/Unexplained Change in Mental Status Sepsis Action Taken by Nursing 03/15/24 19:45 03/15/24 20:06 03/15/24 20:27 Temperature Temperature Source Pulse Rate 64 72 75 Pulse Rate [Apical] Pulse Rate from SpO2 Sensor 59 L 69 72 Pulse Rhythm Pulse Rhythm [Apical] Pulse Strength [Apical] Respiratory Rate 23 27 H 22 Respiratory Effort / Characteristics Respiratory Depth Respiratory Pattern Blood Pressure Blood Pressure [Right Arm] Blood Pressure Mean Blood Pressure Mean [Right Arm] Pulse Oximetry 96 95 97 Oxygen Delivery Method Room Air Sepsis Recent Fever Within 48 Hours Sepsis New/Unexplained Change in Mental Status Sepsis Action Taken by Nursing 03/15/24 21:10 03/15/24 21:12 03/15/24 21:21 Temperature Temperature Source Pulse Rate 63 56 L Pulse Rate [Apical] Pulse Rate from SpO2 Sensor 63 56 L Pulse Rhythm Pulse Rhythm [Apical] Pulse Strength [Apical] Respiratory Rate 22 17 Respiratory Effort / Characteristics Respiratory Depth Respiratory Pattern Blood Pressure 141/90 H Blood Pressure [Right Arm] Blood Pressure Mean 97 Blood Pressure Mean [Right Arm] Pulse Oximetry 95 95 Oxygen Delivery Method Sepsis Recent Fever Within 48 Hours Sepsis New/Unexplained Change in Mental Status Sepsis Action Taken by Nursing 03/15/24 21:48 Temperature Temperature Source Pulse Rate 54 L Pulse Rate [Apical] Pulse Rate from SpO2 Sensor 57 L Pulse Rhythm Pulse Rhythm [Apical] Pulse Strength [Apical] Respiratory Rate 20 Respiratory Effort / Characteristics Respiratory Depth Respiratory Pattern Blood Pressure Blood Pressure [Right Arm] Blood Pressure Mean Blood Pressure Mean [Right Arm] Pulse Oximetry 96 Oxygen Delivery Method Room Air Sepsis Recent Fever Within 48 Hours Sepsis New/Unexplained Change in Mental Status Sepsis Action Taken by Nursing Laboratory Data 03/15/24 18:46 03/15/24 18:46 Lab Results 03/15/24 03/15/24 Range/Units 18:46 20:47 WBC 7.73 (4.8-10.8) K/ul RBC 4.33 L (4.70-6.10) M/uL Hgb 14.3 (14.0-18.0) g/dl Hct 40.6 L (42.0-52.0) % MCV 93.8 (80.0-100.0) fL MCH 33.0 (25.0-34.0) pg MCHC 35.2 (32.0-36.0) g/dL RDW Std Deviation 46.5 H (36.4-46.3) fL RDW Coeff of [place] 13.4 (11.5-14.5) % Plt Count 225 (130-400) K/uL MPV 9.1 L (9.4-12.4) fL Immature Gran % (Auto) 0.3 % Neut % (Auto) 69.7 % Lymph % (Auto) 21.6 % [place] % (Auto) 5.6 % Eos % (Auto) 1.9 % Baso % (Auto) 0.9 % Neut # (Auto) 5.39 (1.40-6.50) K/uL Lymph # (Auto) 1.67 (1.20-3.40) K/uL [place] # (Auto) 0.43 (0.11-0.59) K/uL Eos # (Auto) 0.15 (0.00-0.50) K/uL Baso # (Auto) 0.07 (0.00-0.20) K/uL Immature Gran # (Auto) 0.02 (0.01-0.20) K/uL Sodium 136 (136-145) mmol/L Potassium 3.9 (3.5-5.1) mmol/L Chloride 108 H (98-107) mmol/L Carbon Dioxide 24 (21-32) mmol/L Anion Gap 4 (3-11) BUN 14 (6-23) mg/dl Creatinine 1.17 (0.6-1.4) mg/dl Est Cr Clr Drug Dosing Not Reportable Est GFR ( Amer) 81.4 ml/min Est GFR (Non-Af Amer) 70.3 ml/min BUN/Creatinine Ratio 12.0 (10-20) Glucose 102 H (70-99(Fasting)) mg/dl Calcium 8.8 (8.6-10.3) mg/dl Total Bilirubin 0.6 (0.2-1.0) mg/dl AST 24 (13-39) U/L ALT 21 (7-52) U/L Alkaline Phosphatase 65 (34-104) U/L Troponin I High Sens 11.4 (0-20) pg/ml Total Protein 6.8 (6.0-8.3) gm/dl Albumin 4.1 (3.4-5.0) gm/dl Globulin 2.7 (2.5-4.0) gm/dl Albumin/Globulin Ratio 1.5 (0.9-2) Lipase 16 (11-82) U/L Urine Color Yellow Urine Appearance Clear (Clear) Urine pH 6.5 (4.5-7.5) Ur Specific [place] 1.024 (1.000-1.030) Urine Protein Negative (Negative) Urine Glucose (UA) Negative (Negative) Urine Ketones Negative (Negative) Urine Blood Negative (Negative) Urine Nitrite Negative (Negative) Urine Bilirubin Negative (Negative) Urine Urobilinogen Negative (Negative) Ur Leukocyte Esterase Negative (Negative) Administered Medications Sodium Chloride (Nss) 1,000 mls @ 999 mls/hr IV .Q1H1M ONE Stop: 03/15/24 23:14 Last Admin: 03/15/24 22:32 Dose: 999 mls/hr Documented By: TAY Discontinued Medications Sodium Chloride (Nss) 1,000 mls @ 999 mls/hr IV .Q1H1M ONE Stop: 03/15/24 19:47 Last Infusion: 03/15/24 20:26 Dose: Infused Documented By: Admin: 03/15/24 19:06 Dose: 999 mls/hr Documented By: PEREZ Ioversol (Optiray 320 100ml) 94 ml IV ONCE ONE Stop: 03/15/24 20:22 Last Admin: 03/15/24 20:21 Dose: 94 ml Documented By: YURI Morphine Sulfate (Morphine Sulfate 4 Mg/Ml 1 Ml Carp\Vial) 4 mg IV NOW STA Stop: 03/15/24 21:03 Last Admin: 03/15/24 21:10 Dose: 4 mg Documented By: TAY Imaging Data Radiologist's Impression: Abdomen/Pelvis CT 03/15/24 18:47 Exam(s): CT ABDOMEN + PELVIS With Contrast IV Amt: 94 ml optiray 320 EXAM: CT Abdomen and Pelvis With Intravenous Contrast CLINICAL HISTORY: Reason for exam: Mid abdominal pain, history of pancreatitis. TECHNIQUE: Axial computed tomography images of the abdomen and pelvis with intravenous contrast. CTDI is 10.66 mGy and DLP is 543.6 mGy-cm. Automated exposure control was utilized for the study. A dose lowering technique was utilized adhering to the principles of ALARA. CONTRAST: Patient received 94 ml optiray 320 of IV contrast COMPARISON: 03/01/2024. FINDINGS: Lung bases: Bilateral lower lobe atelectasis. Heart: Unremarkable. No cardiomegaly. No significant pericardial effusion. Normal cardiac size with coronary artery calcifications. ABDOMEN: Liver: Unremarkable. No mass. Gallbladder and bile ducts: Status post cholecystectomy with nonspecific mild biliary distention. No ductal dilation. Pancreas: Mild stranding at the pancreatic head region junction with the duodenal C-loop suggestive of mild pancreatitis versus duodenitis. No ductal dilation. Spleen: Unremarkable. No splenomegaly. Adrenals: Unremarkable. No mass. Kidneys and ureters: Unremarkable. No solid mass. No hydronephrosis. Stomach and bowel: The descending colon is decompressed with mild thickening of the wall, cannot exclude mild colitis. There are a few loops of small bowel with borderline thickening of the wall. No obstruction. PELVIS: Appendix: Normal appendix. Bladder: Unremarkable. No mass. Reproductive: Unremarkable as visualized. ABDOMEN and PELVIS: Intraperitoneal space: Unremarkable. No free air. No significant fluid collection. Bones/joints: Multilevel, mild spondylosis and degenerative disease of the spine. No acute fracture. No dislocation. Soft tissues: Mild tactile hernia. Vasculature: Atherosclerotic disease of aorta with no aneurysm or dissection. Lymph nodes: Unremarkable. No enlarged lymph nodes. IMPRESSION: 1. Mild inflammatory changes in the pancreatic head region and duodenal C-loop suggestive of pancreatitis versus duodenitis. Correlation with amylase and lipase recommended. 2. Possible mild colitis/enterocolitis. No acute appendicitis or bowel obstruction. Electronically signed by: Radhika Hughes MD 03/15/24 22:07 PM Discharge Plan Visit Data Chief Complaint: Abdominal Pain Stated Complaint: ABD PAIN, NAUSEA ED Provider: Deep Martinez Discharge Problem: Acute pancreatitis Forms Stand Alone Forms: [facility] Prescriptions Prescriptions: No Action nitroglycerin [Nitrostat] 0.4 mg tablet, sublingual 0.4 mg Sublingual .EVERY 5 MINUTES MDD 3 doses PRN (Reason: Chest Pain) Rx Instructions: if no relief after 3rd dose call 911 famotidine 40 mg tablet 40 mg PO HS PRN (Reason: Acid Reflux) dicyclomine 10 mg capsule 10 mg PO BID PRN (Reason: Abdominal Pain) ezetimibe 10 mg tablet 10 mg PO QAM magnesium oxide 400 mg magnesium Tablet 400 mg PO QAM pantoprazole 40 mg tablet,delayed release (DR/EC) 40 mg PO QAM aspirin 81 mg tablet,delayed release (DR/EC) 81 mg PO QAM Qty: 30 0RF rosuvastatin 40 mg tablet 40 mg PO QAM spironolactone 25 mg tablet 12.5 mg PO QAM Qty: 15 0RF metoprolol succinate 25 mg tablet extended release 24 hr 25 mg PO AMHS Brilinta 90 mg tablet 90 mg PO AMHS sertraline 100 mg tablet 100 mg PO QAM sucralfate 1 gram tablet 1 g PO ACHS PRN (Reason: Stomach Upset) oxycodone 5 mg tablet 5 mg PO Q6H PRN (Reason: pain) Qty: 7 0RF Referrals Referrals: Wade Bragg MD [Primary Care Provider] - Discharge Problem: Acute pancreatitis Qualifiers: Pancreatitis type: unspecified pancreatitis type Acute pancreatitis complication: unspecified Qualified Code(s): K85.90 - Acute pancreatitis without necrosis or infection, unspecified
[2024-03-15] MEDS: SODIUM CHLORIDE 0.9% 1,000 ML IV ONE ×2 (19:06→22:32)
[2024-03-15 19:14] LABS: Basophils # (auto) 0.07 K/uL (0.00-0.20); Basophils % (auto) 0.9 %; Eosinophils # (auto) 0.15 K/uL (0.00-0.50); Eosinophils % (auto) 1.9 %; Hematocrit (blood only) 40.6 % (42.0-52.0); Hemoglobin 14.3 g/dl (14.0-18.0); Immature Granulocytes # (auto) 0.02 K/uL (0.01-0.20); Immature Granulocytes % (auto) 0.3 %; Lymphocytes # (auto) 1.67 K/uL (1.20-3.40); Lymphocytes % (auto) 21.6 %; Mean Corpuscular Hgb Conc 35.2 g/dL (32.0-36.0); Mean Corpuscular Volume 93.8 fL (80.0-100.0); Mean Platelet Volume 9.1 fL (9.4-12.4); Monocytes # (auto) 0.43 K/uL (0.11-0.59); Monocytes % (auto) 5.6 %; Neutrophils # (auto) 5.39 K/uL (1.40-6.50); Neutrophils % (auto) 69.7 %; Platelet Count 225 K/uL (130-400); RDW Coefficient of Variation 13.4 % (11.5-14.5); RDW Standard Deviation 46.5 fL (36.4-46.3); Red Blood Count 4.33 M/uL (4.70-6.10); White Blood Count 7.73 K/ul (4.8-10.8)
[2024-03-15 19:28] LABS: Alanine Aminotransferase 21 U/L (7-52); Albumin Globulin Ratio 1.5 (0.9-2); Albumin Level 4.1 gm/dl (3.4-5.0); Alkaline Phosphatase 65 U/L (34-104); Anion Gap 4 (3-11); Aspartate Aminotransferase 24 U/L (13-39); Bilirubin,Total 0.6 mg/dl (0.2-1.0); Blood Urea Nitrogen 14 mg/dl (6-23); Calcium 8.8 mg/dl (8.6-10.3); Carbon Dioxide 24 mmol/L (21-32); Chloride 108 mmol/L (98-107); Est GFR (African American) 81.4 ml/min; Est GFR (Non-African American) 70.3 ml/min; Globulin 2.7 gm/dl (2.5-4.0); Glucose 102 mg/dl (70-99(Fasting)); Lipase 16 U/L (11-82); Potassium 3.9 mmol/L (3.5-5.1); Sodium 136 mmol/L (136-145); Total Protein 6.8 gm/dl (6.0-8.3)
[2024-03-15 19:34] LABS: Troponin I High Sensitivity 11.4 pg/ml (0-20)
[2024-03-15] MEDS: OPTIRAY 320 100ml IV ONE (20:21)
[2024-03-15] MEDS: MoRPHine SULFATE 4 MG/ML 1 ML CARP\\VIAL IV STA (21:10)
[2024-03-15 21:16] LABS: Appearance Urine Clear (Clear); Bilirubin Urine Negative (Negative); Blood Urine Negative (Negative); Color Urine Yellow; Glucose Urine UA Negative (Negative); Ketones Urine Negative (Negative); Leukocyte Esterase Urine Negative (Negative); Nitrite Urine Negative (Negative); Protein Urine Negative (Negative); Specific Gravity Urine 1.024 (1.000-1.030); Urobilinogen Urine Negative (Negative); pH Urine 6.5 (4.5-7.5)
--- NOTE | 2024-03-15 22:09 | CT Scan Report ---
Exam(s): CT ABDOMEN + PELVIS With Contrast IV Amt: 94 ml optiray 320 EXAM: CT Abdomen and Pelvis With Intravenous Contrast CLINICAL HISTORY: Reason for exam: Mid abdominal pain, history of pancreatitis. TECHNIQUE: Axial computed tomography images of the abdomen and pelvis with intravenous contrast. CTDI is 10.66 mGy and DLP is 543.6 mGy-cm. Automated exposure control was utilized for the study. A dose lowering technique was utilized adhering to the principles of ALARA. CONTRAST: Patient received 94 ml optiray 320 of IV contrast COMPARISON: 03/01/2024. FINDINGS: Lung bases: Bilateral lower lobe atelectasis. Heart: Unremarkable. No cardiomegaly. No significant pericardial effusion. Normal cardiac size with coronary artery calcifications. ABDOMEN: Liver: Unremarkable. No mass. Gallbladder and bile ducts: Status post cholecystectomy with nonspecific mild biliary distention. No ductal dilation. Pancreas: Mild stranding at the pancreatic head region junction with the duodenal C-loop suggestive of mild pancreatitis versus duodenitis. No ductal dilation. Spleen: Unremarkable. No splenomegaly. Adrenals: Unremarkable. No mass. Kidneys and ureters: Unremarkable. No solid mass. No hydronephrosis. Stomach and bowel: The descending colon is decompressed with mild thickening of the wall, cannot exclude mild colitis. There are a few loops of small bowel with borderline thickening of the wall. No obstruction. PELVIS: Appendix: Normal appendix. Bladder: Unremarkable. No mass. Reproductive: Unremarkable as visualized. ABDOMEN and PELVIS: Intraperitoneal space: Unremarkable. No free air. No significant fluid collection. Bones/joints: Multilevel, mild spondylosis and degenerative disease of the spine. No acute fracture. No dislocation. Soft tissues: Mild tactile hernia. Vasculature: Atherosclerotic disease of aorta with no aneurysm or dissection. Lymph nodes: Unremarkable. No enlarged lymph nodes. IMPRESSION: 1. Mild inflammatory changes in the pancreatic head region and duodenal C-loop suggestive of pancreatitis versus duodenitis. Correlation with amylase and lipase recommended. 2. Possible mild colitis/enterocolitis. No acute appendicitis or bowel obstruction. Electronically signed by: Radhika Hughes MD 03/15/24 22:07 PM
--- NOTE | 2024-03-15 23:29 | History & Physical Report ---
Date of Service March 15, 2024 Assessment & Plan (1) Acute pancreatitis: Plan: History recurrent pancreatitis Episodic bradycardia Lowest heart rate of 40s documented at the ER. Recent increase in home beta-shay dose by cardiology office given outpatient Zio patch results of SVT and ectopy hx premature CAD sp stent chronic systolic heart failure, patient euvolemic to dry PAF, patient currently NSR with bradycardic episodes HTN, BP stable hyperlipidemia, on statin Rx Casanova's esophagus, stable on regimen Hyperglycemia likely prediabetes, hemoglobin A1c of 6.12 October 2023 ongoing tobacco abuse. PCU given episodic bradycardia with fleeting symptoms at home Hold home beta-shay for now Cardiology consult Re: Bradycardia Atropine as needed symptomatic bradycardia IVF, bowel rest, analgesia for pancreatitis Judicious IV hydration given history systolic dysfunction GI consult Re: Recurrent pancreatitis Nicotine patch as needed DVT prophylaxis. Lovenox subcu DNR as per discussion with patient. Text document was generated using [employer] voice recognition software. It may contain grammatical or spelling errors. Kindly contact undersigned for clarification of any documentation item in ques tion. . History of Present Illness Chief Complaint: Abdominal pain Primary Care Provider: Wade Bragg MD History obtained from patient and records. Medical history significant for chronic systolic heart failure (EF 35 to 40%, TTE 2023), premature CAD sp stent, PAF as per records, mild MR, history NSVT, HTN, hyperlipidemia, recurrent pancreatitis status post cholecystectomy/ ERCP, Casanova's esophagus, anxiety/mood disorder, ongoing tobacco abuse. Last confinement January 2024 for chest pain. Bradycardic episodes during confinement Cardiology recommended 14-day ZIO monitor. Rare ventricular ectopy and rare SVT on Zio patch completed last month. 3 days ago, patient had transient dizziness, lightheadedness, chest pain and SOB episode. Outpatient Cardiology provider recommended increasing home beta-shay Rx in light of recent ZIO patch monitor results. Patient woke up from sleep this morning with chest pain associated with some shortness of breath. Patient consulted ER. Discharged home given unremarkable workup. Around noon time, patient noted epigastric discomfort similar to pancreatitis attack. Patient returned to ER but was discharged home. Persistent achy abdominal pain at home with nausea. No emesis, no fever no chills. No recent EtOH intake. Patient returned to ER tonight for worsening symptoms. Lowest heart rate of 40s documented at the ER. Patient asymptomatic at time of episode. MEDICAL HISTORY: As above. OPERATIONS: vasectomy, cholecystectomy FAMILY HISTORY:Hypertension, stroke; no pancreatitis PERSONAL AND SOCIAL HISTORY: One-half pack daily. No chronic intake of alcoholic beverages. 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 Allergies Allergy/AdvReac Type Severity Reaction Status Date / Time isosorbide [From Imdur] AdvReac Severe severe Verified 03/15/24 20:38 migraine Home Medications Medication Instructions Recorded Confirmed Type nitroglycerin 0.4 mg sublingual 0.4 mg sublingual .EVERY 5 MINUTES 10/07/18 03/15/24 History tablet (Nitrostat) PRN Chest Pain dicyclomine 10 mg capsule 10 mg PO BID PRN Abdominal Pain 12/06/20 03/15/24 History ezetimibe 10 mg tablet 10 mg PO QAM 12/06/20 03/15/24 History famotidine 40 mg tablet 40 mg PO HS PRN Acid Reflux 12/06/20 03/15/24 History magnesium oxide 400 mg PO QAM 12/06/20 03/15/24 History pantoprazole 40 mg tablet,delayed 40 mg PO QAM 08/20/21 03/15/24 History release aspirin 81 mg tablet,delayed 81 mg PO QAM #30 tabs 05/24/23 03/15/24 Rx release rosuvastatin 40 mg tablet 40 mg PO QAM 06/07/23 03/15/24 History spironolactone 25 mg tablet 12.5 mg (1/2 x 25 mg) PO QAM #15 06/08/23 03/15/24 Rx tabs metoprolol succinate 25 mg 25 mg PO AMHS 07/27/23 03/15/24 History tablet,extended release 24 hr ticagrelor 90 mg tablet (Brilinta) 90 mg PO AMHS 07/27/23 03/15/24 History sertraline 100 mg tablet 100 mg PO QAM 10/21/23 03/15/24 History sucralfate 1 gram tablet 1 g PO ACHS PRN Stomach Upset 03/01/24 03/15/24 History oxycodone 5 mg tablet 5 mg PO Q6H PRN pain #7 tabs 03/15/24 03/15/24 Rx Past Med/Surg History Problem List (Updated 03/16/24 @ 00:07 by Background Daemon) Acute pancreatitis (Acute) History of coronary artery disease (Acute) History of acute pancreatitis (Acute) Epigastric abdominal pain (Acute) Atypical chest pain (Acute) SVT (supraventricular tachycardia) Chest pain (Acute) Acute pancreatitis (Acute) GERD (gastroesophageal reflux disease) Chest pain (Acute) Ischemic cardiomyopathy Non-sustained ventricular tachycardia (Acute) Elevated troponin (Acute) Bradycardia (Acute) Chronic pancreatitis Sinus bradycardia Chest pain (Acute) Hematoma Tobacco abuse Recurrent pancreatitis Non-ST elevation (NSTEMI) myocardial infarction (Acute) Acute on chronic pancreatitis Abdominal pain (Acute) Lesion of pancreas Elevated lipase Pancreatitis (Acute) Chest pain (Acute) Chest pain Acute pancreatitis (Acute) Abdominal pain, periumbilical (Acute) Anemia Hypomagnesemia Hypophosphatemia Hx laparoscopic cholecystectomy (08/22/21) Laparoscopic Cholecystectomy Dr. Davidson 08/22/2021 Grade II diastolic dysfunction Barretts esophagus Acute pancreatitis (Acute) Non-ST elevation PA (NSTEMI) (Acute) Breath shortness (Acute) DVT prophylaxis Chest pain (Acute) HLD (hyperlipidemia) RADHA (generalized anxiety disorder) CAD (coronary artery disease) (Acute) 2018-RCA stent x 2 07/2020-STEMI, s/p PCI to left circumflex with 2 MELLY. Post procedure complicated by V. fib arrest requiring defibrillation. 12/2020-NSTEMI s/p 3 Xience MELLY to the distal aspect of prior stent of the left posterior lateral branch vessel Depression GERD (gastroesophageal reflux disease) (Acute) Medical History ST elevation myocardial infarction (STEMI) COVID-29 Oct 2021 Mobitz type 2 second degree atrioventricular block Tobacco abuse Splenic infarct Surgical History History of endoscopic retrograde cholangiopancreatography x2 (08/31, 09/30) Hx laparoscopic cholecystectomy (08/22/21) Laparoscopic Cholecystectomy Dr. Davidson 08/22/2021 History of vasectomy Family History Mother Gallbladder disease Sister Gallbladder disease Other Diabetes Stroke Denies family history of Pancreatic disease Social History Smoking Status: Current every day smoker Tobacco Type: Cigarettes Cigarettes Per Day: 1 pck/day; Second Hand Exposure: No; Do You Dip or Chew Tobacco: No; Hx Alcohol Use: No Hx Substance Use: No Preferred Language: Bahraini Communication Ability: Effective Zigzag Elastic Attacher Required: No Beliefs That Will Affect Care: None marital status: Single Current Living Situation: Alone current occupational status: employed Feels Safe at Home: Yes Assistive Devices: Glasses Review of Systems Review of Systems: As per HPI, all other systems reviewed and negative Physical Exam Physical Exam: GENERAL: comfortable, pleasant, no respiratory distress SKIN: Normal color, warm HEENT: Alopecia, pink palpebral conjunctivae, no ptosis, dry buccal mucosa NECK : Supple, no tenderness CHEST : CTA, no tenderness HEART : Bradycardic, no obvious murmurs ABDOMEN: some distention, epigastric tenderness EXTREMITIES : No LE swelling/tenderness, no other conspicuous deformities noted NEUROLOGIC : Coherent, no facial asymmetry, no other gross focality Results & Data Results & Data Vital Signs (Past 12 Hours) Vital Signs Temp Pulse Pulse Resp BP BP Pulse Ox 03/15/24 22:54 48 L 03/15/24 21:48 54 L 20 96 03/15/24 21:21 56 L 17 95 03/15/24 21:12 63 22 95 03/15/24 21:10 141/90 H 03/15/24 20:27 75 22 97 03/15/24 20:06 72 27 H 95 03/15/24 19:45 64 23 96 03/15/24 19:12 69 26 H 95 03/15/24 19:03 24 96 03/15/24 18:55 79 20 95 03/15/24 18:21 84 29 H 96 03/15/24 18:21 86 18 159/96 H 96 03/15/24 17:52 36.7 C 89 20 142/87 H 97 O2 Del Method 03/15/24 22:54 03/15/24 21:48 Room Air 03/15/24 21:21 03/15/24 21:12 03/15/24 21:10 03/15/24 20:27 Room Air 03/15/24 20:06 03/15/24 19:45 03/15/24 19:12 03/15/24 19:03 03/15/24 18:55 Room Air 03/15/24 18:21 03/15/24 18:21 Room Air 03/15/24 17:52 Room Air Laboratory Results Laboratory Results WBC 7.73 K/ul (4.8-10.8) 03/15/24 18:46 RBC 4.33 M/uL (4.70-6.10) L 03/15/24 18:46 Hgb 14.3 g/dl (14.0-18.0) 03/15/24 18:46 Hct 40.6 % (42.0-52.0) L 03/15/24 18:46 MCV 93.8 fL (80.0-100.0) 03/15/24 18:46 MCH 33.0 pg (25.0-34.0) 03/15/24 18:46 MCHC 35.2 g/dL (32.0-36.0) 03/15/24 18:46 RDW Std Deviation 46.5 fL (36.4-46.3) H 03/15/24 18:46 RDW Coeff of Mckinley 13.4 % (11.5-14.5) 03/15/24 18:46 Plt Count 225 K/uL (130-400) 03/15/24 18:46 MPV 9.1 fL (9.4-12.4) L 03/15/24 18:46 Immature Gran % (Auto) 0.3 % 03/15/24 18:46 Neut % (Auto) 69.7 % 03/15/24 18:46 Lymph % (Auto) 21.6 % 03/15/24 18:46 Phillips % (Auto) 5.6 % 03/15/24 18:46 Eos % (Auto) 1.9 % 03/15/24 18:46 Baso % (Auto) 0.9 % 03/15/24 18:46 Neut # (Auto) 5.39 K/uL (1.40-6.50) 03/15/24 18:46 Lymph # (Auto) 1.67 K/uL (1.20-3.40) 03/15/24 18:46 Phillips # (Auto) 0.43 K/uL (0.11-0.59) 03/15/24 18:46 Eos # (Auto) 0.15 K/uL (0.00-0.50) 03/15/24 18:46 Baso # (Auto) 0.07 K/uL (0.00-0.20) 03/15/24 18:46 Immature Gran # (Auto) 0.02 K/uL (0.01-0.20) 03/15/24 18:46 Sodium 136 mmol/L (136-145) 03/15/24 18:46 Potassium 3.9 mmol/L (3.5-5.1) 03/15/24 18:46 Chloride 108 mmol/L (98-107) H 03/15/24 18:46 Carbon Dioxide 24 mmol/L (21-32) 03/15/24 18:46 Anion Gap 4 (3-11) 03/15/24 18:46 BUN 14 mg/dl (6-23) 03/15/24 18:46 Creatinine 1.17 mg/dl (0.6-1.4) 03/15/24 18:46 Est Cr Clr Drug Dosing Not Reportable 03/15/24 18:46 Est GFR ( Amer) 81.4 ml/min 03/15/24 18:46 Est GFR (Non-Af Amer) 70.3 ml/min 03/15/24 18:46 BUN/Creatinine Ratio 12.0 (10-20) 03/15/24 18:46 Glucose 102 mg/dl (70-99(Fasting)) H 03/15/24 18:46 Calcium 8.8 mg/dl (8.6-10.3) 03/15/24 18:46 Total Bilirubin 0.6 mg/dl (0.2-1.0) 03/15/24 18:46 AST 24 U/L (13-39) 03/15/24 18:46 ALT 21 U/L (7-52) 03/15/24 18:46 Alkaline Phosphatase 65 U/L (34-104) 03/15/24 18:46 Troponin I High Sens 11.4 pg/ml (0-20) 03/15/24 18:46 Total Protein 6.8 gm/dl (6.0-8.3) 03/15/24 18:46 Albumin 4.1 gm/dl (3.4-5.0) 03/15/24 18:46 Globulin 2.7 gm/dl (2.5-4.0) 03/15/24 18:46 Albumin/Globulin Ratio 1.5 (0.9-2) 03/15/24 18:46 Lipase 16 U/L (11-82) 03/15/24 18:46 Urine Color Yellow 03/15/24 20:47 Urine Appearance Clear (Clear) 03/15/24 20:47 Urine pH 6.5 (4.5-7.5) 03/15/24 20:47 Ur Specific [place] 1.024 (1.000-1.030) 03/15/24 20:47 Urine Protein Negative (Negative) 03/15/24 20:47 Urine Glucose (UA) Negative (Negative) 03/15/24 20:47 Urine Ketones Negative (Negative) 03/15/24 20:47 Urine Blood Negative (Negative) 03/15/24 20:47 Urine Nitrite Negative (Negative) 03/15/24 20:47 Urine Bilirubin Negative (Negative) 03/15/24 20:47 Urine Urobilinogen Negative (Negative) 03/15/24 20:47 Ur Leukocyte Esterase Negative (Negative) 03/15/24 20:47 Impressions Abdomen/Pelvis CT 03/15/24 18:47 Exam(s): CT ABDOMEN + PELVIS With Contrast IV Amt: 94 ml optiray 320 EXAM: CT Abdomen and Pelvis With Intravenous Contrast CLINICAL HISTORY: Reason for exam: Mid abdominal pain, history of pancreatitis. TECHNIQUE: Axial computed tomography images of the abdomen and pelvis with intravenous contrast. CTDI is 10.66 mGy and DLP is 543.6 mGy-cm. Automated exposure control was utilized for the study. A dose lowering technique was utilized adhering to the principles of ALARA. CONTRAST: Patient received 94 ml optiray 320 of IV contrast COMPARISON: 03/01/2024. FINDINGS: Lung bases: Bilateral lower lobe atelectasis. Heart: Unremarkable. No cardiomegaly. No significant pericardial effusion. Normal cardiac size with coronary artery calcifications. ABDOMEN: Liver: Unremarkable. No mass. Gallbladder and bile ducts: Status post cholecystectomy with nonspecific mild biliary distention. No ductal dilation. Pancreas: Mild stranding at the pancreatic head region junction with the duodenal C-loop suggestive of mild pancreatitis versus duodenitis. No ductal dilation. Spleen: Unremarkable. No splenomegaly. Adrenals: Unremarkable. No mass. Kidneys and ureters: Unremarkable. No solid mass. No hydronephrosis. Stomach and bowel: The descending colon is decompressed with mild thickening of the wall, cannot exclude mild colitis. There are a few loops of small bowel with borderline thickening of the wall. No obstruction. PELVIS: Appendix: Normal appendix. Bladder: Unremarkable. No mass. Reproductive: Unremarkable as visualized. ABDOMEN and PELVIS: Intraperitoneal space: Unremarkable. No free air. No significant fluid collection. Bones/joints: Multilevel, mild spondylosis and degenerative disease of the spine. No acute fracture. No dislocation. Soft tissues: Mild tactile hernia. Vasculature: Atherosclerotic disease of aorta with no aneurysm or dissection. Lymph nodes: Unremarkable. No enlarged lymph nodes. IMPRESSION: 1. Mild inflammatory changes in the pancreatic head region and duodenal C-loop suggestive of pancreatitis versus duodenitis. Correlation with amylase and lipase recommended. 2. Possible mild colitis/enterocolitis. No acute appendicitis or bowel obstruction. Electronically signed by: Radhika Hughes MD 03/15/24 22:07 PM Diagnostic Findings EKG as per my interpretation : Rate 55, sinus bradycardia, normal axis, RBBB, T wave inversion inferior leads (1) Acute pancreatitis Acute pancreatitis complication: unspecified Pancreatitis type: unspecified pancreatitis type Qualified Code(s): K85.90 - Acute pancreatitis without necrosis or infection, unspecified
[2024-03-15 23:42] LABS: Magnesium 1.8 mg/dl (1.7-2.4)
[2024-03-15] MEDS: LACTATED RINGER'S 1,000 ML IV ONE (23:46)
[2024-03-15] MEDS: MAGNESIUM SULFATE / D5W 1 GM/100 ML BAG IV ONE (23:51)
[2024-03-16] MEDS ORDERED: ATROPINE SULFATE 0.1 MG/ML 10ML SYR IV PRN (00:14)
[2024-03-16] MEDS ORDERED: ACETAMINOPHEN 325 MG TAB PO PRN (00:14)
[2024-03-16] MEDS ORDERED: LORazepam 0.5 MG TAB PO PRN (00:14)
[2024-03-16] MEDS ORDERED: SUCRALFATE 1 GM TAB PO PRN (01:19)
[2024-03-16] MEDS ORDERED: NITROGLYCERIN SL 0.4 MG/TAB TAB SL PRN (01:19)
[2024-03-16] MEDS ORDERED: oxyCODONE HCL IR 5 MG TAB (IMMEDIATE RELEASE) PO PRN (01:19)
[2024-03-16] MEDS: oxyCODONE HCL IR 5 MG TAB (IMMEDIATE RELEASE) PO PRN (01:52)
[2024-03-16] MEDS: Patient's HEIGHT &/or WEIGHT Needed ONE (01:55)
[2024-03-16] MEDS: PROMETHAZINE HCL 6.25 MG in SODIUM CHLORIDE 0.9% 50 ML IV PRN (01:58)
[2024-03-16 06:31] LABS: Basophils # (auto) 0.05 K/uL (0.00-0.20); Basophils % (auto) 0.8 %; Eosinophils # (auto) 0.14 K/uL (0.00-0.50); Eosinophils % (auto) 2.3 %; Hematocrit (blood only) 35.8 % (42.0-52.0); Hemoglobin 12.5 g/dl (14.0-18.0); Immature Granulocytes # (auto) 0.02 K/uL (0.01-0.20); Immature Granulocytes % (auto) 0.3 %; Lymphocytes # (auto) 1.59 K/uL (1.20-3.40); Lymphocytes % (auto) 25.9 %; Mean Corpuscular Hemoglobin 32.9 pg (25.0-34.0); Mean Corpuscular Hgb Conc 34.9 g/dL (32.0-36.0); Mean Corpuscular Volume 94.2 fL (80.0-100.0); Mean Platelet Volume 9.4 fL (9.4-12.4); Monocytes # (auto) 0.39 K/uL (0.11-0.59); Monocytes % (auto) 6.4 %; Neutrophils # (auto) 3.94 K/uL (1.40-6.50); Neutrophils % (auto) 64.3 %; Platelet Count 191 K/uL (130-400); RDW Coefficient of Variation 13.5 % (11.5-14.5); RDW Standard Deviation 46.5 fL (36.4-46.3); White Blood Count 6.13 K/ul (4.8-10.8)
[2024-03-16 07:15] LABS: Albumin Globulin Ratio 1.4 (0.9-2); Albumin Level 3.4 gm/dl (3.4-5.0); BUN Creatinine Ratio 11.1 (10-20); Bilirubin,Total 0.5 mg/dl (0.2-1.0); Calcium 7.7 mg/dl (8.6-10.3); Creatinine Clr Calc Pharmacy 81.6 ml/min; Est GFR (African American) 111.8 ml/min; Est GFR (Non-African American) 96.5 ml/min; Globulin 2.4 gm/dl (2.5-4.0); Potassium 4.1 mmol/L (3.5-5.1); Total Protein 5.8 gm/dl (6.0-8.3)
[2024-03-16] MEDS: ENOXAPARIN INJ 40 MG/0.4 ML SYR SQ SCH (08:07)
[2024-03-16] MEDS: FAMOTIDINE 40 MG TABLET PO PRN (08:08)
[2024-03-16] MEDS: PANTOprazole 40 MG TAB PO SCH (08:08)
[2024-03-16] MEDS: ROSUVASTATIN CALCIUM 20 MG TAB PO SCH (08:08)
[2024-03-16] MEDS: EZETIMIBE 10 MG TAB PO SCH (08:08)
[2024-03-16] MEDS: MAGNESIUM OXIDE 400 MG TAB PO SCH (08:08)
[2024-03-16] MEDS: ASPIRIN 81 MG ECTAB PO SCH (08:08)
[2024-03-16] MEDS: SERTRALINE HCL 100 MG TABLET PO SCH (08:08)
--- NOTE | 2024-03-16 09:17 | Cardiology Consultation ---
Date of Consultation March 16, 2024 Assessment & Plan (1) Acute pancreatitis: (2) Bradycardia: (3) Atypical chest pain: (4) Ischemic cardiomyopathy: (5) Non-sustained ventricular tachycardia: (6) Tobacco abuse: Plan Resume metoprolol succinate, 25 mg twice per day Continue telemetry Possible future device implantation for the borderline Tachy-Jamarcus Syndrome/ischemic cardiomyopathy Trial low dose ARB, losartan 12.5 mg at bedtime Continue aspirin Resume ticagrelor (Brilinta) when able. Continue spironolactone 12.5 mg/day Continue rosuvastatin 40 mg/day Continue ezetimibe 10 mg/day Future angina options: Amlodipine, retrial of isosorbide (previously with headaches). Avoid Ranexa for now due to bradycardia I spent a total of 55 minutes on the date of service in preparation, delivery, and documentation of the care provided to this patient excluding any time spent in the performance of separately billed services. This visit was a split-shared visit with the substantive portion of the medical decision making performed by the supervising business process analyst/billing provider. Supervising Physician Co-Signing Physician Notes Attending attestation: Case reviewed with the advanced practitioner. I have personally performed a history and physical examination on the patient. I have reviewed the advanced practitioner's documentation on the date of service referenced in note, and I agree with, and take responsibility for the plan of care. Chest discomfort improved. Denies lightheadedness or dizziness. Telemetry reveals sinus rhythm in the 50s to 60s. Echocardiogram performed 01/22/2024 revealed large sized apical, septal, inferior, posterior wall motion abnormality with hypokinesis to akinesis of the segments, LVEF had trended up to 35-40%, which was significantly improved compared to May,. Patient had yet to make the adjusted dosage change of metoprolol succinate to 37.5 mg a.m., 25 mg p.m. and has been taking 25 mg twice daily. Resume 25 mg twice daily. No indication for pacemaker or AICD at present, but need will be reassessed longitudinally over future follow-up sessions. GI input noted and appreciated, continue IV fluids. Does not need to be n.p.o. from a cardiac perspective, I will defer to the hospitalist service and GI with regards to advancing diet from a pancreatitis standpoint. I spent a total of 20 minutes coordinating, documenting, and providing care for this patient excluding time spent in the performance of separately billed services or time spent by another provider. Herb Tamez DO History of Present Illness Attending Physician: Lukas Santos MD History of Present Illness Oc Cazares is a 53-year-old male who is being seen at the request of Dr. Anne. Reason for consultation is bradycardia. Patient notes being in his normal state of health until Wednesday, March 13, 2024. 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 Personal review of the rhythm strip reveals probable sinus tachycardia with ventricular ectopy. Recommendations at that time included titration of metoprolol succinate from 25 mg twice per day to 37.5 mg in the morning and 25 mg in the evening however the patient never received this message and has continued to take metoprolol succinate 25 mg twice per day. Patient awoke from sleep this morning with chest pressure around 3 AM. He took 2 sublingual nitroglycerin at that time without relief. EKG in the ER at 04:52:29 revealed sinus rhythm at 64 bpm with sinus arrhythmia, occasional premature ventricular complexes, old inferior posterior infarct, without acute ST segment change. ER workup was benign with patient discharged to home only to have returned due to epigastric discomfort reminiscent of prior acute pancreatitis attacks. EKG in the ER at 18:57:43 revealed sinus bradycardia at 55 bpm with low voltage QRS, old inferior posterior infarct, T wave abnormality inferior that is new compared to the most recent EKG though present to some extent on prior EKGs. High-sensitivity troponin normal at 13.3, 11.1, 11.4. Chest x-ray revealed cardiomegaly without active disease. CT scan of the abdomen and pelvis revealed inflammatory changes in the pancreatic head region and duodenal see loops suggestive of pancreatitis versus duodenitis and possible mild colitis/enterocolitis. The patient notes being nauseous and having diarrhea yesterday. No bowel movement yet today. 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 He rarely has exertional chest pressure or discomfort. No recent change in exercise tolerance. No worsening exertional dyspnea. No orthopnea or PND. No lower extremity peripheral edema. No true syncope. No fevers. No chills. No melena or hematochezia. No rash. No tick bites. Misses medications about four times per month, typically the evening dose. Past Medical and Surgical History: Premature coronary artery disease, ischemic cardiomyopathy, NYHA class I-II fun ctional status, LVEF 35 to 40% via January 2024 resting echocardiogram, narrow QRS duration March 15 NSTEMI, severe culprit single-vessel CAD with 99% mid RCA, 40% proximal LAD, and 50% mid LAD (PCI of proximal to mid and late/mid RCA with x 2 MELLY, 3.5 x 18 mm, 3.25 x 15 mm Xience) moderate to severe mid LAD disease by IVUS, 60 to 70%, no significant ostial/proximal LAD disease October 25, 2018 Catheterization: Moderate non-obstructive coronary artery disease. 60% mid LAD (FFR 0.85). August 08, 2020 Inferior STEMI with 100% acute distal left circumflex occlusion at bifurcation with large PLB, moderate nonobstructive CAD, 50 to 60% mid LAD stenosis unchanged from 10/2018, widely patent RCA stents. Cath complicated by V-fib arrest requiring defibrillation x 1 and postarrest cardiogenic shock requiring norepinephrine. Successful PCI of PLB/distal circumflex bifurcation with 2 drug-eluting stents (2.75 x 15 mm Ridgely into left PLB, 2.25 x 12 mm Mariano into distal circumflex). January 01, 2021 NSTEMI, successful PCI of mid circumflex in the left PLB with x3 Xience drug-eluting stents (2.5 x 18 overlapping proximal aspect of prior stent, 2.5 x 12, 2.25 x 12 extending from distal aspect of prior stent in the left PLB; postdilated with 3.0 NC -- now at total of 5 stents at bifurcation with LPLB/distal circumflex) -Angioplasty into prior distal circumflex stent with 2.0 balloon October 10, 2022 NSTEMI, reocclusion of the previously stented circumflex into posterior lateral branch, status post successful PCI with x 1 MELLY proximally and PTCA throughout the previous stented train. Moderate disease in the LAD unchanged, previously placed RCA stent patent. Note: Given poor myocardial blush on prior study as well as current study in combination with recurrent stent thrombosis I suspect a long-term patency will be limited. There is probably some degree of acute microvascular occlusion from thrombus but also significant myocardial scarring. May 20, 2023 STEMI, Circumflex territory, thrombus of the prior stent train in the left circumflex with involvement of previously untreated large OM1. Successful PCI of the AV groove circumflex into the large trifurcating OM1 with implantation of a large caliber drug-eluting stent. Unsuccessful attempt to reopen the previously placed long stent train in the mid to distal AV groove circumflex and a branch of that vessel. August 10, 2023 Coronary angiography without new target for revascularization. Medical management recommended. The target lesion we wanted to fix was mid circumflex at the ostium with OM1 bifurcation which had 80% InStent restenosis. There is also 95% InStent restenosis in distal LPL branch. We attempted to perform POBA of the lesion (has 2 prior stent layers). We were not able to pass even the smallest profile balloon that we have (1.25mm). We used GuideLiner for additional support. There was some concern for wire passing behind the strut so we tried to wire the lesion multiple times with a loop so that we stay intraluminal. Despite this, we were not able to pass balloon for POBA. This was harder than anticipated because of prior 2 layers of stents, acute angle of OM1 takeoff and advanced disease. * Mid LAD has 50% stenosis Prior Cx stent is patent Nonsustained ventricular tachycardia, mild resting bradycardia Hypertension Dyslipidemia Chronic tobacco use Recurrent pancreatitis GERD Hiatal hernia Gastritis Casanova's esophagitis Anxiety Depression Family History: Mother recently passed with dementia. Father is alive without overt cardiac issues, multiple issues related to agent orange exposure during [place]. Brother and sister are alive without cardiac issues Social History: Smoker, 1 pack/day. No smokeless tobacco use. No alcohol. No illegal/illicit drug use. 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 [employer] Allergies Allergy/AdvReac Type Severity Reaction Status Date / Time isosorbide [From Imdur] AdvReac Severe severe Verified 03/15/24 20:38 migraine Home Medications Medication Instructions Recorded Confirmed Type nitroglycerin 0.4 mg sublingual 0.4 mg sublingual .EVERY 5 MINUTES 10/07/18 03/15/24 History tablet (Nitrostat) PRN Chest Pain dicyclomine 10 mg capsule 10 mg PO BID PRN Abdominal Pain 12/06/20 03/15/24 History ezetimibe 10 mg tablet 10 mg PO QAM 12/06/20 03/15/24 History famotidine 40 mg tablet 40 mg PO HS PRN Acid Reflux 12/06/20 03/15/24 History magnesium oxide 400 mg PO QAM 12/06/20 03/15/24 History pantoprazole 40 mg tablet,delayed 40 mg PO QAM 08/20/21 03/15/24 History release aspirin 81 mg tablet,delayed 81 mg PO QAM #30 tabs 05/24/23 03/15/24 Rx release rosuvastatin 40 mg tablet 40 mg PO QAM 06/07/23 03/15/24 History spironolactone 25 mg tablet 12.5 mg (1/2 x 25 mg) PO QAM #15 06/08/23 03/15/24 Rx tabs metoprolol succinate 25 mg 25 mg PO AMHS 07/27/23 03/15/24 History tablet,extended release 24 hr ticagrelor 90 mg tablet (Brilinta) 90 mg PO AMHS 07/27/23 03/15/24 History sertraline 100 mg tablet 100 mg PO QAM 10/21/23 03/15/24 History sucralfate 1 gram tablet 1 g PO ACHS PRN Stomach Upset 03/01/24 03/15/24 History oxycodone 5 mg tablet 5 mg PO Q6H PRN pain #7 tabs 03/15/24 03/15/24 Rx Patient History Medical History ST elevation myocardial infarction (STEMI) COVID-29 Oct 2021 Mobitz type 2 second degree atrioventricular block Tobacco abuse Splenic infarct Surgical History History of endoscopic retrograde cholangiopancreatography x2 (08/31, 09/30) History of vasectomy Family History Mother Gallbladder disease Sister Gallbladder disease Other Diabetes Stroke Denies family history of Pancreatic disease Social History Smoking Status: Current every day smoker Tobacco Type: Cigarettes Cigarettes Per Day: 1 pck/day; Second Hand Exposure: No; Do You Dip or Chew Tobacco: No; Hx Alcohol Use: No Hx Substance Use: No Preferred Language: Kinyarwanda Communication Ability: Effective Ticketing Clerk Required: No Beliefs That Will Affect Care: None marital status: Single Current Living Situation: Alone current occupational status: employed Feels Safe at Home: Yes Assistive Devices: Glasses Review of Systems Review of Systems: Complete review of systems is otherwise as stated above, negative, or noncontributory. Physical Exam Physical Exam: General: A&Ox3. NAD. HENT: Normocephalic. Atraumatic. Mouth: Poor dentition Eyes: PER. Conjunctiva pink, sclera clear. Neck: No carotid bruits. No JVD. Heart: Regular at 56 bpm. No murmur. No rub. Lungs: Clear to auscultation. Abdomen: +BS. Soft. Nontender. No masses or organomegaly. Extremities: No clubbing, cyanosis, or edema. Limited neurological examination is without focal deficits. Pulses: radial=2/4, posterior tibial=2/4. Results & Data Vital Signs (Past 12 Hours) Vital Signs Temp Pulse Pulse Resp BP BP BP 03/16/24 07:54 36.6 C 51 L 16 137/89 03/16/24 07:43 49 L 03/16/24 02:53 36.6 C 55 L 18 133/89 03/16/24 01:31 36.7 C 70 15 157/97 H 03/16/24 01:19 03/16/24 00:51 51 L 13 03/16/24 00:39 61 17 03/16/24 00:21 60 16 03/16/24 00:06 60 13 03/15/24 23:57 54 L 19 03/15/24 23:30 53 L 13 03/15/24 23:03 56 L 17 143/94 H 03/15/24 22:54 48 L 03/15/24 22:45 63 17 03/15/24 22:15 60 16 03/15/24 21:48 54 L 20 03/15/24 21:21 56 L 17 Pulse Ox O2 Del Method O2 Del Method 03/16/24 07:54 96 Room Air 03/16/24 07:43 03/16/24 02:53 96 Room Air 03/16/24 01:31 97 Room Air 03/16/24 01:19 Room Air 03/16/24 00:51 97 Room Air 03/16/24 00:39 96 03/16/24 00:21 95 03/16/24 00:06 96 03/15/24 23:57 96 03/15/24 23:30 97 03/15/24 23:03 98 03/15/24 22:54 03/15/24 22:45 97 03/15/24 22:15 95 03/15/24 21:48 96 Room Air 03/15/24 21:21 95 Laboratory Results Cardiac Enzymes 03/15/24 03/16/24 Range/Units 18:46 05:28 AST 24 16 (13-39) U/L Troponin I High Sens 11.4 (0-20) pg/ml CBC 03/15/24 03/16/24 Range/Units 18:46 05:28 WBC 7.73 6.13 (4.8-10.8) K/ul RBC 4.33 L 3.80 L (4.70-6.10) M/uL Hgb 14.3 12.5 L (14.0-18.0) g/dl Hct 40.6 L 35.8 L (42.0-52.0) % Plt Count 225 191 (130-400) K/uL Neut # (Auto) 5.39 3.94 (1.40-6.50) K/uL Lymph # (Auto) 1.67 1.59 (1.20-3.40) K/uL [place] # (Auto) 0.43 0.39 (0.11-0.59) K/uL Eos # (Auto) 0.15 0.14 (0.00-0.50) K/uL Baso # (Auto) 0.07 0.05 (0.00-0.20) K/uL Comprehensive Metabolic Panel 03/15/24 03/16/24 Range/Units 18:46 05:28 Sodium 136 137 (136-145) mmol/L Potassium 3.9 4.1 (3.5-5.1) mmol/L Chloride 108 H 109 H (98-107) mmol/L Carbon Dioxide 24 24 (21-32) mmol/L BUN 14 10 (6-23) mg/dl Creatinine 1.17 0.90 (0.6-1.4) mg/dl Glucose 102 H 96 (70-99(Fasting)) mg/dl Calcium 8.8 7.7 L (8.6-10.3) mg/dl AST 24 16 (13-39) U/L ALT 21 16 (7-52) U/L Alkaline Phosphatase 65 50 (34-104) U/L Total Protein 6.8 5.8 L (6.0-8.3) gm/dl Albumin 4.1 3.4 (3.4-5.0) gm/dl Intake and Output 03/15/24 03/16/24 03/16/24 22:59 06:59 14:59 Intake Total 1000 / 2150.25 1150.25 / 2150.25 Balance 1000 / 2150.25 1150.25 / 2150.25 Intake: IV 1000 / 2150.25 1150.25 / 2150.25 Magnesium Sulfate / D5w 1 gm In 100 / 100 100 ml @ 50 mls/hr IV ONE ONE Rx#:[id number] Promethazine HCl 6.25 mg In 50.25 / 50.25 Sodium Chloride 0.9% 50 ml @ 201 mls/hr IV Q6H PRN Rx#: [id number] Sodium Chloride 0.9% 1,000 ml @ 1000 / 2000 1000 / 2000 999 mls/hr IV .Q1H1M ONE Rx#: [id number] Other: Other Intake Source NPO # Unmeasured Voids 2 Weight 62.9 kg Weight Measurement Method Standing Scale Diagnostic Findings February 2024 Zio Monitor (while on metoprolol succinate 25 mg BID): Patient had a min HR of 40 bpm, max HR of 155 bpm, and avg HR of 67 bpm. Predominant underlying rhythm was Sinus Rhythm. 1 run of Supraventricular Tachycardia occurred lasting 8 beats with a max rate of 118 bpm (avg 90 bpm). Some episodes of Supraventricular Tachycardia may be possible Atrial Tachycardia with variable block. Isolated SVEs were rare (<1.0%), and no SVE Couplets or SVE Triplets were present. Isolated VEs were occasional (2.5%, [id number]), VE Couplets were rare (<1.0%, 227), and no VE Triplets were present. Ventricular Bigeminy and Trigeminy were present. Symptoms correlate with ventricular ectopy, normal sinus rhythm, and sinus tachycardia. Telemetry: Sinus rhythm/sinus bradycardia. Lowest heart rate recorded was 43 bpm overnight. Currently sinus bradycardia at 56 bpm. (1) Acute pancreatitis Acute pancreatitis complication: unspecified Pancreatitis type: unspecified pancreatitis type Qualified Code(s): K85.90 - Acute pancreatitis without necrosis or infection, unspecified
--- NOTE | 2024-03-16 10:08 | Gastrointestinal Consultation ---
Date of Consultation March 16, 2024 Assessment & Plan (1) Acute pancreatitis: -NPO -Aggressive IV fluid hydration -Pain control per primary team -[facility] they had wanted to move forrward with an EUS after October 2023 and he did not follow-up. Supervising Physician Co-Signing Physician Notes Agree with WILLOW Fair as above Interviewed and examined patient and agree with above Abd: Soft, NT, ND, +BS Continue current therapy and supportive care Outpatient EUS to be arranged History of Present Illness Reason for Consultation: Recurrent pancreatitis Attending Physician: Lukas Santos MD History of Present Illness Patient is a 53 yo male who presented to the ED with acute abdominal pain that he compared to his previous episodes of pancreatitis. He has been following with [facility] for these episodes. In the past, he has had EUS & ERCPs with pancreatic stenting/stone removal. He was last seen by Alexandra in October 2023 for pancreatitis and was advised to follow-up to have an EUS as an outpatient. He notes he did not do this. He developed an acute onset of abdominal pain in the epigastric area with radiation across his abdomen yesterday. He presented to the ED. Lipase unremarkable. CT showed a pancreatitis vs duodenitis. He is NPO currently. He reports significant improvement of his abdominal pain. He denies nausea or vomiting. He is receiving IV fluid hydration. Last lipid panel in October 2023 was unremarkable. Last lipid panel unremarkable in October. No LFT elevation or imaging findings of stones/biliary issues. History of cholecystectomy. No recent viral illness. He denies alcohol use. Patient notes that he has not been told he has had a hard time managing GI follow-up and his cardiac follow-ups. Allergies Allergy/AdvReac Type Severity Reaction Status Date / Time isosorbide [From Imdur] AdvReac Severe severe Verified 03/15/24 20:38 migraine Home Medications Medication Instructions Recorded Confirmed Type nitroglycerin 0.4 mg sublingual 0.4 mg sublingual .EVERY 5 MINUTES 10/07/18 03/15/24 History tablet (Nitrostat) PRN Chest Pain dicyclomine 10 mg capsule 10 mg PO BID PRN Abdominal Pain 12/06/20 03/15/24 History ezetimibe 10 mg tablet 10 mg PO QAM 12/06/20 03/15/24 History famotidine 40 mg tablet 40 mg PO HS PRN Acid Reflux 12/06/20 03/15/24 History magnesium oxide 400 mg PO QAM 12/06/20 03/15/24 History pantoprazole 40 mg tablet,delayed 40 mg PO QAM 08/20/21 03/15/24 History release aspirin 81 mg tablet,delayed 81 mg PO QAM #30 tabs 05/24/23 03/15/24 Rx release rosuvastatin 40 mg tablet 40 mg PO QAM 06/07/23 03/15/24 History spironolactone 25 mg tablet 12.5 mg (1/2 x 25 mg) PO QAM #15 06/08/23 03/15/24 Rx tabs metoprolol succinate 25 mg 25 mg PO AMHS 07/27/23 03/15/24 History tablet,extended release 24 hr ticagrelor 90 mg tablet (Brilinta) 90 mg PO AMHS 07/27/23 03/15/24 History sertraline 100 mg tablet 100 mg PO QAM 10/21/23 03/15/24 History sucralfate 1 gram tablet 1 g PO ACHS PRN Stomach Upset 03/01/24 03/15/24 History oxycodone 5 mg tablet 5 mg PO Q6H PRN pain #7 tabs 03/15/24 03/15/24 Rx Patient History Medical History ST elevation myocardial infarction (STEMI) COVID-29 Oct 2021 Mobitz type 2 second degree atrioventricular block Tobacco abuse Splenic infarct Surgical History History of endoscopic retrograde cholangiopancreatography x2 (08/31, 09/30) History of vasectomy Family History Mother Gallbladder disease Sister Gallbladder disease Other Diabetes Stroke Denies family history of Pancreatic disease Social History Smoking Status: Current every day smoker Tobacco Type: Cigarettes Cigarettes Per Day: 1 pck/day; Second Hand Exposure: No; Do You Dip or Chew Tobacco: No; Hx Alcohol Use: No Hx Substance Use: No Preferred Language: Dutch Communication Ability: Effective Binder Caser Required: No Beliefs That Will Affect Care: None marital status: Single Current Living Situation: Alone current occupational status: employed Feels Safe at Home: Yes Assistive Devices: None Review of Systems Constitutional: no fever and no chills Respiratory: no cough and no dyspnea Cardiovascular: no chest pain Gastrointestinal: + abdominal pain; no heartburn, no nause a, no vomiting, no coffee ground emesis, no hematemesis, no change in bowel habits, no diarrhea/loose stools, no blood in stools and no melena Physical Exam Constitutional: well developed Respiratory: normal respiratory effort Cardiovascular: Rate/Rhythm: regular rate Gastrointestinal (Abdomen): Inspection/Auscultation: abdomen normal to inspection and normal bowel sounds; abdomen not distended Percussion/Palpation: abdomen nontender Psychiatric: Orientation: alert and oriented x 3 Results & Data Vital Signs (Past 12 Hours) Vital Signs Temp Pulse Pulse Resp BP BP BP 03/16/24 09:31 03/16/24 07:54 36.6 C 51 L 16 137/89 03/16/24 07:43 49 L 03/16/24 02:53 36.6 C 55 L 18 133/89 03/16/24 01:31 36.7 C 70 15 157/97 H 03/16/24 01:19 03/16/24 00:51 51 L 13 03/16/24 00:39 61 17 03/16/24 00:21 60 16 03/16/24 00:06 60 13 03/15/24 23:57 54 L 19 03/15/24 23:30 53 L 13 03/15/24 23:03 56 L 17 143/94 H 03/15/24 22:54 48 L 03/15/24 22:45 63 17 03/15/24 22:15 60 16 Pulse Ox O2 Del Method O2 Del Method 03/16/24 09:31 Room Air 03/16/24 07:54 96 Room Air 03/16/24 07:43 03/16/24 02:53 96 Room Air 03/16/24 01:31 97 Room Air 03/16/24 01:19 Room Air 03/16/24 00:51 97 Room Air 03/16/24 00:39 96 03/16/24 00:21 95 03/16/24 00:06 96 03/15/24 23:57 96 03/15/24 23:30 97 03/15/24 23:03 98 03/15/24 22:54 03/15/24 22:45 97 03/15/24 22:15 95 PG Care Time/CCT Total # of Minutes Spent Total Time Spent with Patient: Total time spent is greater than 50% in coordination of care (as documented) at patient's floor/unit and/or counseling patient: Coding Level of Care Code 23941 IN/OBS CONSULT LVL 4,60M Diagnoses Acute pancreatitis K85.90 Acute pancreatitis complication: unspecified Pancreatitis type: unspecified pancreatitis type (1) Acute pancreatitis Acute pancreatitis complication: unspecified Pancreatitis type: unspecified pancreatitis type Qualified Code(s): K85.90 - Acute pancreatitis without necrosis or infection, unspecified
[2024-03-16 11:27] VITALS: RESP 18
[2024-03-16] MEDS: LACTATED RINGER'S 1,000 ML IV SCH (13:28)
--- NOTE | 2024-03-16 15:13 | Hospitalist Progress Note ---
Date of Service March 16, 2024 Assessment & Plan (1) Acute pancreatitis: Plan: Acute on chronic pancreatitis Recurrent pancreatitis Patient presents with abdominal pain in epigastric region History of multiple admission with acute on chronic pancreatitis CT abdomen pelvis showed mild inflammatory changes in the pancreatic head region and duodenal C-loop suggestive of pancreatitis versus duodenitis. Amylase is within normal limits Evaluated by GI; continue supportive care Will advance diet as tolerated Continue IV fluids pain control Chest pain, ACS rule out History of CAD status post stent Bradycardia Evaluated by cardiology; recommended to resume metoprolol 25 mg twice a day Continue aspirin, Brilinta, spironolactone, statin trial of losartan 12.5 at night. 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 DVT prophylaxis. Lovenox subcu DNR as per discussion with patient. Time spent evaluating patient, direct bedside care, chart review, placing orders, interpretation of diagnostic studies, discussion with consultants, patient, and family members, as well as other required patient management activities is 40 minutes Please note the above document was generated using voice recognition software. It may contain grammatical, syntax or spelling errors. Any formal questions or concerns about the content, text or information contained within the body of this dictation should be directly addressed to the provider for clarification Admission and Anticipated Discharge Date Admission Date: March 15, 2024 Subjective Patient was seen and examined at bedside. He reports that the chest pain has resolved. However, he has some mild abdominal pain. No significant event overnight; vitals are stable. Review of Systems Review of Systems: All systems reviewed & are unremarkable except as noted in Subjective Physical Exam Physical Exam: Constitutional: WD/WN, vitals as above, NAD, sitting up in bed, pleasant, conversing easily Respiratory: normal respiratory effort, lungs clear to auscultation, no wheeze, rales, rhonchi. Normal insp/exp effort, no accessory muscle use Cardiovascular: RRR, no murmur, no edema Vessels: no JVD or carotid bruit Chest: normal inspection of chest Abdomen: no tenderness on palpation of abdomen Musculoskeletal: no cyanosis or clubbing, extremities motor strength 5/5 Skin: no rashes, warm and dry normal turgor Neurologic: PERRL, EOMI, accommodation nl, no face palsy, no dysarthria CN's II- XI intact bilaterally and moves all extremities Psychiatric: A+Ox3, euthymic affect Results & Data Results & Data Vital Signs (Past 12 Hours) Vital Signs Temp Pulse Pulse Resp BP Pulse Ox O2 Del Method 03/16/24 11:26 36.7 C 62 18 132/76 95 Room Air 03/16/24 09:31 Room Air 03/16/24 07:54 36.6 C 51 L 16 137/89 96 Room Air 03/16/24 07:43 49 L (1) Acute pancreatitis Acute pancreatitis complication: unspecified Pancreatitis type: unspecified pancreatitis type Qualified Code(s): K85.90 - Acute pancreatitis without necrosis or infection, unspecified
[2024-03-16] MEDS: MoRPHine SULFATE 2 MG/ML CARP IV PRN (19:51)
[2024-03-16] MEDS: LOSARTAN POTASSIUM 25 MG TAB PO SCH (20:53)
[2024-03-16] MEDS: METOPROLOL SUCC 25MG EXT REL TAB PO SCH (20:53)
[2024-03-17] MEDS ORDERED: Nursing to Pharmacy Communication SCH (02:15)
[2024-03-17 03:10] VITALS: PULSE 56
[2024-03-17 04:56] LABS: Basophils # (auto) 0.07 K/uL (0.00-0.20); Eosinophils # (auto) 0.14 K/uL (0.00-0.50); Hematocrit (blood only) 38.1 % (42.0-52.0); Hemoglobin 13.7 g/dl (14.0-18.0); Immature Granulocytes # (auto) 0.02 K/uL (0.01-0.20); Immature Granulocytes % (auto) 0.3 %; Lymphocytes # (auto) 1.54 K/uL (1.20-3.40); Lymphocytes % (auto) 21.5 %; Mean Corpuscular Hemoglobin 33.4 pg (25.0-34.0); Mean Corpuscular Volume 92.9 fL (80.0-100.0); Mean Platelet Volume 9.4 fL (9.4-12.4); Neutrophils # (auto) 4.88 K/uL (1.40-6.50); Neutrophils % (auto) 68.2 %; Platelet Count 189 K/uL (130-400); RDW Coefficient of Variation 13.2 % (11.5-14.5); White Blood Count 7.15 K/ul (4.8-10.8)
[2024-03-17 05:10] LABS: BUN Creatinine Ratio 10.5 (10-20); Est GFR (African American) 92.8 ml/min; Est GFR (Non-African American) 80.1 ml/min; Potassium 3.9 mmol/L (3.5-5.1)
[2024-03-17 07:44] VITALS: TEMP 97.9; O2SAT 93
[2024-03-17 11:06] VITALS: BP 142/88
--- NOTE | 2024-03-17 14:11 | Discharge Summary ---
Date of Service March 17, 2024 Admission HPI Per Admitting Provider History obtained from patient and records. Medical history significant for chronic systolic heart failure (EF 35 to 40%, TTE 2023), premature CAD sp stent, PAF as per records, mild MR, history NSVT, HTN, hyperlipidemia, recurrent pancreatitis status post cholecystectomy/ ERCP, Casanova's esophagus, anxiety/mood disorder, ongoing tobacco abuse. Last confinement January 2024 for chest pain. Bradycardic episodes during confinement Cardiology recommended 14-day ZIO monitor. Rare ventricular ectopy and rare SVT on Zio patch completed last month. 3 days ago, patient had transient dizziness, lightheadedness, chest pain and SOB episode. Outpatient Cardiology provider recommended increasing home beta-shay Rx in light of recent ZIO patch monitor results. Patient woke up from sleep this morning with chest pain associated with some shortness of breath. Patient consulted ER. Discharged home given unremarkable workup. Around noon time, patient noted epigastric discomfort similar to pancreatitis attack. Patient returned to ER but was discharged home. Persistent achy abdominal pain at home with nausea. No emesis, no fever no chills. No recent EtOH intake. Patient returned to ER tonight for worsening symptoms. Lowest heart rate of 40s documented at the ER. Patient asymptomatic at time of episode. MEDICAL HISTORY: As above. OPERATIONS: vasectomy, cholecystectomy FAMILY HISTORY:Hypertension, stroke; no pancreatitis PERSONAL AND SOCIAL HISTORY: One-half pack daily. No chronic intake of alcoholic beverages. 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 Admission Exam Per Admitting Provider GENERAL: comfortable, pleasant, no respiratory distress SKIN: Normal color, warm HEENT: Alopecia, pink palpebral conjunctivae, no ptosis, dry buccal mucosa NECK : Supple, no tenderness CHEST : CTA, no tenderness HEART : Bradycardic, no obvious murmurs ABDOMEN: some distention, epigastric tenderness EXTREMITIES : No LE swelling/tenderness, no other conspicuous deformities noted NEUROLOGIC : Coherent, no facial asymmetry, no other gross focality Principal Diagnosis Acute on chronic pancreatitis Chest pain, ACS rule out Discharge Exam Constitutional: WD/WN, vitals as above, NAD, sitting up in bed, pleasant, conversing easily Respiratory: normal respiratory effort, lungs clear to auscultation, no wheeze, rales, rhonchi. Normal insp/exp effort, no accessory muscle use Cardiovascular: RRR, no murmur, no edema Vessels: no JVD or carotid bruit Chest: normal inspection of chest Abdomen: no tenderness on palpation of abdomen Musculoskeletal: no cyanosis or clubbing, extremities motor strength 5/5 Skin: no rashes, warm and dry normal turgor Neurologic: PERRL, EOMI, accommodation nl, no face palsy, no dysarthria CN's II- XI intact bilaterally and moves all extremities Psychiatric: A+Ox3, euthymic affect Discharge Data Allergies Allergy/AdvReac Type Severity Reaction Status Date / Time isosorbide [From Imdur] AdvReac Severe severe Verified 03/15/24 20:38 migraine Consultations 03/15/24 22:23 ED Decision to Admit Stat 03/16/24 01:19 Consult Cardiology Routine Consult Gastroenterology Routine Ordered Studies 03/15/24 18:47 CT Abd and Pelvis [CT abd pelvis IV con only] Stat Hospital Course (1) Acute pancreatitis: Acute on chronic pancreatitis Recurrent pancreatitis Patient presents with abdominal pain in epigastric region History of multiple admission with acute on chronic pancreatitis CT abdomen pelvis showed mild inflammatory changes in the pancreatic head region and duodenal C-loop suggestive of pancreatitis versus duodenitis. Lipase is within normal limits Patient was admitted to medical floors; started on IV fluids and pain medication. Patient reported improvement in epigastric pain. GI was also consulted during the hospitalization; they recommend outpatient follow-up for EUS. I discussed with patient regarding follow-up; patient agreed for follow-up with GI for EUS. Chest pain, ACS rule out History of CAD status post stent Bradycardia Evaluated by cardiology; recommended to resume metoprolol 25 mg twice a day Continue aspirin, Brilinta, spironolactone, statin Patient was also started on losartan 12.5 mg at bedtime Patient denies any recurrence of chest pain throughout the hospitalization. Please note the above document was generated using voice recognition software. It may contain grammatical, syntax or spelling errors. Any formal questions or concerns about the content, text or information contained within the body of this dictation should be directly addressed to the provider for clarification Total Time Total Time Spent Total Time Spent (In Minutes): 35 Discharge Plan Discharge Items Patient Disposition: Home - Self-Care Reason For Visit: PANCREATITIS, CHANCE Discharge Diagnosis: Acute on chronic pancreatitis Activity: Resume your previous activity Non-emergency contact: Primary Care Provider Call non-emergency contact if: you have any medication questions and your symptoms worsen Follow-up/Referrals: Wade Bragg MD [Primary Care Provider] - (Date & Time 03/22/2024 9:20 AM Provider Josh Salomon MD [facility] ) Diet: Low Fat Addtl Attending Provider Instructions: You were admitted to the hospital with abdominal pain. The likely cause for it acute on chronic pancreatitis. Please eat a low fat diet. Please take tylenol for pain. If the pain gets worsen, you can take oxycodone as needed as prescribed. You were evaluated by Cardiology during the hospitalization for Chest pain. They recommend you to take metoprolol 25 mg twice a day. Losartan 12.5mg once a day is added to your medication regimen as well. Pending Studies at Discharge: No Stand-Alone Forms: [facility] [employer], Work/School Release, Smoking Cessation Medications and DC Order Prescriptions: New losartan 25 mg Tablet 12.5 mg PO QPM Qty: 30 0RF Continued nitroglycerin [Nitrostat] 0.4 mg tablet, sublingual 0.4 mg Sublingual .EVERY 5 MINUTES MDD 3 doses PRN (Reason: Chest Pain) Rx Instructions: if no relief after 3rd dose call 911 famotidine 40 mg tablet 40 mg PO HS PRN (Reason: Acid Reflux) dicyclomine 10 mg capsule 10 mg PO BID PRN (Reason: Abdominal Pain) ezetimibe 10 mg tablet 10 mg PO QAM magnesium oxide 400 mg magnesium Tablet 400 mg PO QAM pantoprazole 40 mg tablet,delayed release (DR/EC) 40 mg PO QAM aspirin 81 mg tablet,delayed release (DR/EC) 81 mg PO QAM Qty: 30 0RF rosuvastatin 40 mg tablet 40 mg PO QAM spironolactone 25 mg tablet 12.5 mg PO QAM Qty: 15 0RF metoprolol succinate 25 mg tablet extended release 24 hr 25 mg PO [facility] Brilinta 90 mg tablet 90 mg PO [facility] sertraline 100 mg tablet 100 mg PO QAM sucralfate 1 gram tablet 1 g PO ACHS PRN (Reason: Stomach Upset) Discontinued oxycodone 5 mg tablet 5 mg PO Q6H PRN (Reason: pain) Qty: 7 0RF Discharge Orders: Discharge Order (Routine); Ordered 03/17/24 Ordered By: Lukas Santos Admission Data Admit Date/Time: 03/15/24 23:31 Attending Provider: Lukas Santos Admit Provider: Fahad Anne Primary Care Provider: Wade Bragg Other Providers: Fahad Anne; Trisha Nair; Herb Tamez; Bran Marshall; Jeremy Whittaker; Edu Sheth; Deep Parks; Carmen Hutton; Alba Lee; Radha Solano; Trisha Chapa; Alexander Trejo; Charles Mendieta; Mayi Becker; Suzi Hinojosa; Larisa Vick; Moses Medrano; Tavo Giron; Radha Gusman; Milton Rosales Other Interventions: Discharge Summary Assessment (RN) Last Done: 03/17/24 11:05
--- NOTE | 2024-03-17 19:25 | Electrocardiogram Report ---
Test Reason : Blood Pressure : / mmHG Vent. Rate : 055 BPM Atrial Rate : 055 BPM P-R Int : 126 ms QRS Dur : 104 ms QT Int : 376 ms P-R-T Axes : 048 -25 004 degrees QTc Int : 359 ms Sinus bradycardia Low voltage QRS Possible Lateral infarct , age undetermined Inferolateral Infarct Incomplete right bundle branch block Abnormal ECG When compared with ECG of 15-MAR-2024 09:49, Inverted T waves have replaced nonspecific T wave abnormality in Inferior leads T wave amplitude has decreased in Anterolateral leads Confirmed by Jaren Crow ([id number]) on 03/17/2024 7:25:14 PM Referred By: REFERRED SELF Confirmed By:Jaren Crow
[2024-03-19] MEDS ORDERED: ROSUVASTATIN CALCIUM 10 MG TAB PO SCH (09:00)
== END 2024-03-17 11:52 | disposition home or self-care (01) | DRG 439 ==
LOC: ED 17:49 → 4W 23:31

== ENCOUNTER 2024-03-28 21:09 | Inpatient (IN) ==
[2024-03-28 21:51] LABS: Basophils # (auto) 0.09 K/uL (0.00-0.20); Eosinophils # (auto) 0.22 K/uL (0.00-0.50); Eosinophils % (auto) 2.5 %; Hematocrit (blood only) 41.4 % (42.0-52.0); Hemoglobin 14.4 g/dl (14.0-18.0); Immature Granulocytes # (auto) 0.03 K/uL (0.01-0.20); Immature Granulocytes % (auto) 0.3 %; Lymphocytes # (auto) 2.67 K/uL (1.20-3.40); Lymphocytes % (auto) 30.8 %; Mean Corpuscular Hgb Conc 34.8 g/dL (32.0-36.0); Mean Corpuscular Volume 94.7 fL (80.0-100.0); Mean Platelet Volume 8.9 fL (9.4-12.4); Monocytes # (auto) 0.59 K/uL (0.11-0.59); Monocytes % (auto) 6.8 %; Neutrophils # (auto) 5.07 K/uL (1.40-6.50); Neutrophils % (auto) 58.6 %; Platelet Count 360 K/uL (130-400); RDW Standard Deviation 48.6 fL (36.4-46.3); Red Blood Count 4.37 M/uL (4.70-6.10); White Blood Count 8.67 K/ul (4.8-10.8)
[2024-03-28 21:57] LABS: Albumin Globulin Ratio 1.5 (0.9-2); Albumin Level 4.6 gm/dl (3.4-5.0); BUN Creatinine Ratio 15.6 (10-20); Bilirubin,Total 0.4 mg/dl (0.2-1.0); Calcium 9.6 mg/dl (8.6-10.3); Creatinine Clr Calc Pharmacy 65.2 ml/min; Est GFR (African American) 88.7 ml/min; Est GFR (Non-African American) 76.5 ml/min; Globulin 3.1 gm/dl (2.5-4.0); Potassium 3.9 mmol/L (3.5-5.1); Total Protein 7.7 gm/dl (6.0-8.3)
[2024-03-28 22:03] LABS: Troponin I High Sensitivity 12.3 pg/ml (0-20)
[2024-03-28] MEDS: ONDANSETRON INJ 2 MG/ML 2 ML VIAL IV STA (22:03)
[2024-03-28] MEDS: MoRPHine SULFATE 4 MG/ML 1 ML CARP\\VIAL IV STA (22:03)
[2024-03-28] MEDS: FAMOTIDINE 20MG IV PUSH 20 MG/5 ML SYR IV STA (22:03)
[2024-03-28 22:06] LABS: INR 0.9 (0.9-1.1); Partial Thromboplastin Ratio 0.9; Partial Thromboplastin Time 24 Seconds (21-31); Prothrombin Time 10.3 Seconds (9.0-12.0)
[2024-03-28] MEDS: OPTIRAY 320 125ml IV ONE (22:39)
--- NOTE | 2024-03-28 23:15 | Emergency Department Note ---
History of Present Illness General Chief complaint: Chest Pain Stated complaint: CHEST PAIN Time Seen by Provider: 03/28/24 21:49 History of Present Illness Maximum Pain Intensity: 9 This 53-year-old male with a history of pancreatitis presents to the ER complaining of chest and upper abdominal pain similar to his prior pancreatic attacks. No alcohol use. Patient denies fever, chills, cough, congestion, flulike illness. Home Medications Medication Instructions Recorded Confirmed Type nitroglycerin 0.4 mg sublingual 0.4 mg sublingual .EVERY 5 MINUTES 10/07/18 03/28/24 History tablet (Nitrostat) PRN Chest Pain dicyclomine 10 mg capsule 10 mg PO BID PRN Abdominal Pain 12/06/20 03/28/24 History ezetimibe 10 mg tablet 10 mg PO QAM 12/06/20 03/28/24 History famotidine 40 mg tablet 40 mg PO HS PRN Acid Reflux 12/06/20 03/28/24 History magnesium oxide 400 mg PO QAM 12/06/20 03/28/24 History pantoprazole 40 mg tablet,delayed 40 mg PO QAM 08/20/21 03/28/24 History release aspirin 81 mg tablet,delayed 81 mg PO QAM #30 tabs 05/24/23 03/28/24 Rx release rosuvastatin 40 mg tablet 40 mg PO QAM 06/07/23 03/28/24 History spironolactone 25 mg tablet 12.5 mg (1/2 x 25 mg) PO QAM #15 06/08/23 03/28/24 Rx tabs metoprolol succinate 25 mg 25 mg PO AMHS 07/27/23 03/28/24 History tablet,extended release 24 hr ticagrelor 90 mg tablet (Brilinta) 90 mg PO AMHS 07/27/23 03/28/24 History sertraline 100 mg tablet 100 mg PO QAM 10/21/23 03/28/24 History sucralfate 1 gram tablet 1 g PO ACHS PRN Stomach Upset 03/01/24 03/28/24 History losartan 25 mg tablet 12.5 mg (1/2 x 25 mg) PO QPM #30 03/17/24 03/28/24 Rx tabs Allergies Allergy/AdvReac Type Severity Reaction Status Date / Time isosorbide [From Imdur] AdvReac Severe severe Verified 03/28/24 22:05 migraine Past Med/Surg History Problem List (Updated 03/29/24 @ 01:00 by Liliana Multani PA-C) Abdominal pain, acute (Acute) Acute pancreatitis (Acute) History of coronary artery disease (Acute) History of acute pancreatitis (Acute) Epigastric abdominal pain (Acute) Atypical chest pain (Acute) SVT (supraventricular tachycardia) Chest pain (Acute) Acute pancreatitis (Acute) GERD (gastroesophageal reflux disease) Chest pain (Acute) Ischemic cardiomyopathy Non-sustained ventricular tachycardia (Acute) Elevated troponin (Acute) Bradycardia (Acute) Chronic pancreatitis Sinus bradycardia Chest pain (Acute) Hematoma Tobacco abuse Recurrent pancreatitis Non-ST elevation (NSTEMI) myocardial infarction (Acute) Acute on chronic pancreatitis Abdominal pain (Acute) Lesion of pancreas Elevated lipase Pancreatitis (Acute) Chest pain (Acute) Chest pain Acute pancreatitis (Acute) Abdominal pain, periumbilical (Acute) Anemia Hypomagnesemia Hypophosphatemia Hx laparoscopic cholecystectomy (08/22/21) Laparoscopic Cholecystectomy Dr. Davidson 08/22/2021 Grade II diastolic dysfunction Barretts esophagus Acute pancreatitis (Acute) Non-ST elevation CA (NSTEMI) (Acute) Breath shortness (Acute) DVT prophylaxis Chest pain (Acute) HLD (hyperlipidemia) RADHA (generalized anxiety disorder) CAD (coronary artery disease) (Acute) 2018-RCA stent x 2 07/2020-STEMI, s/p PCI to left circumflex with 2 MELLY. Post procedure complicated by V. fib arrest requiring defibrillation. 12/2020-NSTEMI s/p 3 Xience MELLY to the distal aspect of prior stent of the left posterior lateral branch vessel Depression GERD (gastroesophageal reflux disease) (Acute) Medical History ST elevation myocardial infarction (STEMI) COVID-29 Oct 2021 Mobitz type 2 second degree atrioventricular block Tobacco abuse Splenic infarct Surgical History History of endoscopic retrograde cholangiopancreatography x2 (08/31, 09/30) History of vasectomy Family History Mother Gallbladder disease Sister Gallbladder disease Other Diabetes Stroke Denies family history of Pancreatic disease Social History Smoking Status: Current every day smoker Tobacco Type: Cigarettes Cigarettes Per Day: 1 pck/day; Second Hand Exposure: No; Do You Dip or Chew Tobacco: No; Hx Alcohol Use: No Hx Substance Use: No Preferred Language: Gibraltarian Communication Ability: Effective Medical Billing And Coding Specialist Required: No Beliefs That Will Affect Care: None marital status: Single Current Living Situation: Alone current occupational status: employed Feels Safe at Home: Yes Safety Concerns: Feels Safe At This Time Assistive Devices: None Review of Systems A total of 10 systems reviewed and were otherwise negative Physical Exam Vital Signs Vital Signs - 24 hr 03/28/24 23:36 03/29/24 00:16 03/29/24 00:44 Pulse Rate 54 L Pulse Rate [Right Finger] 53 L 49 L Pulse Rate from SpO2 Sensor 56 L Respiratory Rate 22 19 19 Blood Pressure 162/101 H Blood Pressure [Right Arm] 148/99 H 158/89 H Blood Pressure Mean 121 Blood Pressure Mean [Right Arm] 115 112 Pulse Oximetry 97 95 98 Oxygen Delivery Method Room Air Room Air Room Air 03/29/24 01:15 Pulse Rate 58 L Pulse Rate [Right Finger] Pulse Rate from SpO2 Sensor Respiratory Rate Blood Pressure Blood Pressure [Right Arm] Blood Pressure Mean Blood Pressure Mean [Right Arm] Pulse Oximetry Oxygen Delivery Method VITALS: Vitals are noted on the nurse's note and reviewed by myself. Vital signs stable. GENERAL: Pleasant gentleman, in no acute distress, nondiaphoretic, well- developed well-nourished. SKIN: Capillary reflex less than 2 seconds. HEENT: Normocephalic. PERRLA. EOMI. Nares patent. Mucous membranes moist. Neck is supple without nuchal rigidity. HEART: Regular rate and rhythm LUNGS: Clear to auscultation bilaterally without wheezes, rales or rhonchi. No retractions or accessory muscle use. ABDOMEN: Positive bowel sounds x 4. Normal tympanic percussion. Soft, tender epigastric region, without masses or organomegaly. Patterson sign negative. No guarding or rebound tenderness. no CVA tenderness MUSCULOSKELETAL: No gross musculoskeletal defects. NEURO: Patient was alert and oriented to person place and time. No focal neurological deficits. Course Administered Medications Ezetimibe (Ezetimibe 10 Mg Tab) 10 mg PO QAM ALYCIA Stop: 04/28/24 08:59 Last Admin: 03/29/24 08:21 Dose: 10 mg Documented By: LAVELL Hydromorphone HCl (Hydromorphone Inj 0.5 Mg/0.5 Ml Syr) 0.5 mg IV Q3H PRN PRN Reason: Pain Stop: 04/12/24 11:45 Last Admin: 03/29/24 20:04 Dose: 0.5 mg Documented By: Admin: 03/29/24 17:03 Dose: 0.5 mg Documented By: Admin: 03/29/24 12:40 Dose: 0.5 mg Documented By: PEPITO Pantoprazole Sodium 40 mg/ (Syringe) 10 mls @ 5 mls/min IV BID ALYCIA Stop: 04/28/24 20:59 Last Admin: 03/29/24 20:06 Dose: 5 mls/min Documented By: MARIBEL Lactated Ringer's (Lr) 1,000 mls @ 100 mls/hr IV .Q10H ALYCIA Stop: 04/28/24 16:44 Last Admin: 03/29/24 17:07 Dose: 100 mls/hr Documented By: PEPITO Losartan Potassium (Losartan Potassium 25 Mg Tab) 12.5 mg PO QPM ALYCIA Stop: 04/28/24 20:59 Last Admin: 03/29/24 20:05 Dose: 12.5 mg Documented By: MARIBEL Magnesium Oxide (Magnesium Oxide 400 Mg Tab) 400 mg PO QAM ALYCIA Stop: 04/28/24 08:59 Last Admin: 03/29/24 08:21 Dose: 400 mg Documented By: GREGORIOK Metoprolol Succinate (Metoprolol Succ 25mg Ext Rel Tab) 25 mg PO AMHS ALYCIA Stop: 04/28/24 08:59 Last Admin: 03/29/24 20:05 Dose: 25 mg Documented By: Admin: 03/29/24 08:21 Dose: 25 mg Documented By: LAVELL Oxycodone HCl (Oxycodone Hcl Ir 5 Mg Tab (Immediate Release)) 5 mg PO Q4H PRN PRN Reason: Pain Stop: 04/12/24 01:36 Last Admin: 03/29/24 18:32 Dose: 5 mg Documented By: Admin: 03/29/24 14:02 Dose: 5 mg Documented By: PEPITO Rosuvastatin Calcium (Rosuvastatin Calcium 20 Mg Tab) [facility] [place] Stop: 04/28/24 08:59 Last Admin: 03/29/24 08:22 Dose: 40 mg Documented By: LAVELL Sertraline HCl (Sertraline Hcl 100 Mg Tablet) [facility] [place] Stop: 04/28/24 08:59 Last Admin: 03/29/24 08:22 Dose: 100 mg Documented By: LAVELL Ticagrelor (Ticagrelor 90 Mg Tab) 90 mg PO [facility] ALYCIA Stop: 04/28/24 20:59 Last Admin: 03/29/24 20:06 Dose: 90 mg Documented By: MARIBEL Discontinued Medications Hydromorphone HCl (Hydromorphone Inj 0.5 Mg/0.5 Ml Syr) 0.5 mg IV Q15M PRN PRN Reason: Pain Stop: 04/11/24 23:02 Last Admin: 03/29/24 00:44 Dose: 0.5 mg Documented By: Admin: 03/28/24 23:22 Dose: 0.5 mg Documented By: KLAUS Famotidine (Pepcid 20mg Iv Push) 20 mg in 5 mls @ 2.5 mls/min IV NOW STA Stop: 03/28/24 21:55 Last Admin: 03/28/24 22:03 Dose: 2.5 mls/min Documented By: KLAUS Pantoprazole Sodium 80 mg/ (Dextrose) 120 mls @ 480 mls/hr IV ONE STA Stop: 03/29/24 01:06 Last Infusion: 03/29/24 01:50 Dose: Infused Documented By: Admin: 03/29/24 01:27 Dose: 480 mls/hr Documented By: ASIF Potassium Chloride/Sodium Chloride (Normal Saline W/20 Meq Kcl) 20 meq in 1,000 mls @ 50 mls/hr IV .Q20H ONE; Protocol Stop: 03/29/24 21:37 Last Infusion: 03/29/24 17:07 Dose: Infused Documented By: Admin: 03/29/24 01:47 Dose: 50 mls/hr Documented By: ASIF Ioversol (Optiray 320 125ml) 120 ml IV ONCE ONE Stop: 03/28/24 22:40 Last Admin: 03/28/24 22:39 Dose: 120 ml Documented By: NELSON Morphine Sulfate (Morphine Sulfate 4 Mg/Ml 1 Ml Carp\Vial) 4 mg IV NOW STA Stop: 03/28/24 21:55 Last Admin: 03/28/24 22:03 Dose: 4 mg Documented By: KLAUS Morphine Sulfate (Morphine Sulfate 2 Mg/Ml Carp) 2 mg IV Q4H PRN PRN Reason: Pain Stop: 04/12/24 01:43 Last Admin: 03/29/24 11:30 Dose: 2 mg Documented By: Admin: 03/29/24 07:17 Dose: 2 mg Documented By: Admin: 03/29/24 02:37 Dose: 2 mg Documented By: PRATIK Ondansetron HCl (Ondansetron Inj 2 Mg/Ml 2 Ml Vial) 4 mg IV NOW STA Stop: 03/28/24 21:55 Last Admin: 03/28/24 22:03 Dose: 4 mg Documented By: KLAUS Pantoprazole Sodium (Pantoprazole 40 Mg Tab) 40 mg PO BID ALYCIA Stop: 04/28/24 08:59 Last Admin: 03/29/24 08:22 Dose: 40 mg Documented By: LAVELL Medical Decision Making Medical Records Attestation: I reviewed the patient's medical records. Home Medications Current Medication List: was personally reviewed by me Laboratory Data Attestation: I reviewed the patient's lab results. 03/29/24 05:58 03/28/24 21:20 Lab Results 03/28/24 Range/Units 21:20 WBC 8.67 (4.8-10.8) K/ul RBC 4.37 L (4.70-6.10) M/uL Hgb 14.4 (14.0-18.0) g/dl Hct 41.4 L (42.0-52.0) % MCV 94.7 (80.0-100.0) fL MCH 33.0 (25.0-34.0) pg MCHC 34.8 (32.0-36.0) g/dL RDW Std Deviation 48.6 H (36.4-46.3) fL RDW Coeff of Mckinley 14.0 (11.5-14.5) % Plt Count 360 (130-400) K/uL MPV 8.9 L (9.4-12.4) fL Immature Gran % (Auto) 0.3 % Neut % (Auto) 58.6 % Lymph % (Auto) 30.8 % Centre % (Auto) 6.8 % Eos % (Auto) 2.5 % Baso % (Auto) 1.0 % Neut # (Auto) 5.07 (1.40-6.50) K/uL Lymph # (Auto) 2.67 (1.20-3.40) K/uL Centre # (Auto) 0.59 (0.11-0.59) K/uL Eos # (Auto) 0.22 (0.00-0.50) K/uL Baso # (Auto) 0.09 (0.00-0.20) K/uL Immature Gran # (Auto) 0.03 (0.01-0.20) K/uL PT 10.3 (9.0-12.0) Seconds INR 0.9 (0.9-1.1) APTT 24 (21-31) Seconds PTT Ratio 0.9 Sodium 137 (136-145) mmol/L Potassium 3.9 (3.5-5.1) mmol/L Chloride 106 (98-107) mmol/L Carbon Dioxide 25 (21-32) mmol/L Anion Gap 6 (3-11) BUN 17 (6-23) mg/dl Creatinine 1.09 (0.6-1.4) mg/dl Est Cr Clr Drug Dosing 65.2 ml/min Est GFR ( Amer) 88.7 ml/min Est GFR (Non-Af Amer) 76.5 ml/min BUN/Creatinine Ratio 15.6 (10-20) Glucose 113 H (70-99(Fasting)) mg/dl Calcium 9.6 (8.6-10.3) mg/dl Magnesium 2.1 (1.7-2.4) mg/dl Total Bilirubin 0.4 (0.2-1.0) mg/dl AST 13 (13-39) U/L ALT 10 (7-52) U/L Alkaline Phosphatase 83 (34-104) U/L Troponin I High Sens 12.3 (0-20) pg/ml Total Protein 7.7 (6.0-8.3) gm/dl Albumin 4.6 (3.4-5.0) gm/dl Globulin 3.1 (2.5-4.0) gm/dl Albumin/Globulin Ratio 1.5 (0.9-2) Lipase 85 H (11-82) U/L Imaging Data Attestation: I personally reviewed and interpreted this imaging study as follows: Radiologist's Impression: Abdomen/Pelvis CT 03/28/24 21:54 Exam(s): CT ABDOMEN + PELVIS With Contrast IV Amt: 120 ML OPTIRAY 320 EXAM: CT Abdomen and Pelvis With Intravenous Contrast CLINICAL HISTORY: Reason for exam: upper abd pain, hx pancreatitis. TECHNIQUE: Axial computed tomography images of the abdomen and pelvis with intravenous contrast. CTDI is 39.43 mGy and DLP is 1034.45 mGy-cm. Automated exposure control was utilized for the study. A dose lowering technique was utilized adhering to the principles of ALARA. CONTRAST: Patient received 120 ML OPTIRAY 320 of IV contrast COMPARISON: CT abdomen and pelvis 03/15/2024. FINDINGS: Lung bases: Unremarkable. No mass. No consolidation. ABDOMEN: Liver: Hepatic steatosis. Gallbladder and bile ducts: Cholecystectomy. No ductal dilation. Pancreas: Unremarkable. No mass. No ductal dilation. Spleen: Unremarkable. No splenomegaly. Adrenals: Unremarkable. No mass. Kidneys and ureters: No hydronephrosis or delayed nephrogram. Right renal cyst measures 1.4 cm. Stomach and bowel: Wall thickening and surrounding inflammation of the duodenum, correlate for duodenal ulcer disease. Need for upper GI endoscopy should be determined clinically. Diverticulosis, without acute diverticulitis. No small bowel obstruction. No free intraperitoneal air. PELVIS: Appendix: No findings to suggest acute appendicitis. Bladder: Decompressed urinary bladder. Reproductive: Unremarkable as visualized. ABDOMEN and PELVIS: Intraperitoneal space: Unremarkable. No free air. No significant fluid collection. Bones/joints: Degenerative changes of the spine. No acute fracture. No dislocation. Soft tissues: Unremarkable. Vasculature: Atherosclerotic changes of the aorta. No abdominal aortic aneurysm. Lymph nodes: Unremarkable. No enlarged lymph nodes. IMPRESSION: Wall thickening and surrounding inflammation of the duodenum, correlate for duodenal ulcer disease. Need for upper GI endoscopy should be determined clinically. Electronically signed by: Regan Richard MD 03/29/24 00:49 AM Chest CTA 03/28/24 21:54 Exam(s): CTA CHEST IV Amt: 120 ML OPTIRAY 320 EXAM: CT Angiography Chest With Intravenous Contrast CLINICAL HISTORY: Reason for exam: PE. TECHNIQUE: Axial computed tomographic angiography images of the chest with intravenous contrast. CTDI is 39.43 mGy and DLP is 1034.45 mGy-cm. Automated exposure control was utilized for the study. A dose lowering technique was utilized adhering to the principles of ALARA. MIP reconstructed images were created and reviewed. COMPARISON: No relevant prior studies available. FINDINGS: Pulmonary arteries: Unremarkable. No pulmonary embolism. Aorta: No acute findings. No thoracic aortic aneurysm. Lungs: Unremarkable. No mass. No consolidation. Pleural space: Unremarkable. No significant effusion. No pneumothorax. Heart: Unremarkable. No cardiomegaly. No significant pericardial effusion. No evidence of RV dysfunction. Bones/joints: No acute fracture. No dislocation. Soft tissues: Unremarkable. Lymph nodes: Unremarkable. No enlarged lymph nodes. Gallbladder and bile ducts: Cholecystectomy clips. IMPRESSION: No acute findings in the visualized arteries of the chest. Electronically signed by: Regan Richard MD 03/28/24 23:[address] [facility] Narrative Prior records/ancillary studies reviewed. Triage Nursing notes reviewed. Additional history obtained from nursing. The patient's history was concerning for chest pain. Differential diagnosis: Etiologies such as cardiac ischemia, aortic dissection, pulmonary embolism, pneumonia, pneumothorax, musculoskeletal, infections, pericarditis, myocarditis, esophageal rupture, gastrointestinal, as well as others were entertained. Physical examination: As above. ER treatment provided: An order was placed for continuous cardiac monitoring. The monitor shows a rate of 60-100 with a sinus rhythm per my interpretation. Morphine, Zofran, Pepcid, Dilaudid Protonix was ordered On reassessment the patient felt better. Diagnostic interpretation by me: The electrocardiogram was negative for pathologic change. Ordered for chest pain EKG: Normal sinus, normal intervals, no acute ST-T wave changes, rate of 63. Impression normal sinus rhythm independently interpreted by myself I think arrhythmia is unlikely. EKG shows normal sinus rhythm with no interval abnormalities such as QT prolongation or WPW. There are no findings to suggest Brugada syndrome. Cardiac monitoring in the emergency department reveals no tachycardic or bradycardic dysrhythmia. Hypertrophic cardiomyopathy was considered but there are no clear historical elements pointing toward this. EKG is not suggestive. The QRS voltage is not extremely large and there are no suggestive Q waves. The labs Independently Interpreted by myself revealed negative troponin Lipase 85 Imaging studies: Chest x-ray with no acute consolidation, pneumothorax or free air per my independent interpretation CTs as above HEART SCORE: Hx: high/mod/low suspicion: 0 ECG: ST depression/nonspecific changes/normal: 0 Age: Greater than 65/45-64/less than 45: 1 Risk factors: (Hypertension, hyperlipidemia, diabetes, coronary disease, tobacco use, cocaine use): 1 Troponin: Greater than 2 times normal limits/1-2 times normal limits/normal: 0 Total: 2 Consultation: A consultation was placed with the hospitalist. The case was discussed and diagnostics were reviewed. The patient was evaluated in the ER for further treatment. Exam and history seem consistent with upper abdominal pain with concerns for pancreatitis versus peptic ulcer disease. Patient was started on a PPI. He did require multiple rounds of pain meds. Medicine was consulted and the case was discussed. He will be admitted to the medical service. Patient has a history of recurrent pancreatitis. By the evaluation outlined above emergent etiologies such as cardiac ischemia, aortic dissection, pulmonary embolism, pneumonia, pneumothorax, infections, pericarditis, myocarditis, as well as others were deemed relatively unlikely. The pt informed about the findings as listed above. All questions were answered and pleased with the treatment. The chart was completed utilizing [employer] Speech voice recognition software. Grammatical errors, random word insertions, pronoun errors, and incomplete sentences are an occassional consequence of this system due to software limitations, ambient noise, and hardware issues. Any formal questions or concerns about the content, text, or information contained within the body of this dictation should be directly addressed to the physician assistant librarian for clarification. Impression & Plan Abdominal pain, acute Discharge Plan Visit Data Chief Complaint: Chest Pain Stated Complaint: CHEST PAIN ED Provider: Catarino Leigh ED Midlevel Provider: Liliana Multani Discharge Problem: Abdominal pain, acute Patient Disposition: Admitted As Inpatient Condition: Good Discharge Instructions Interventions: ED Discharge Assessment Last Done: 03/29/24 01:59
[2024-03-28] MEDS: HYDROmorphone INJ 0.5 MG/0.5 ML SYR IV PRN (23:22)
--- NOTE | 2024-03-28 23:57 | CT Scan Report ---
Exam(s): CTA CHEST IV Amt: 120 ML OPTIRAY 320 EXAM: CT Angiography Chest With Intravenous Contrast CLINICAL HISTORY: Reason for exam: PE. TECHNIQUE: Axial computed tomographic angiography images of the chest with intravenous contrast. CTDI is 39.43 mGy and DLP is 1034.45 mGy-cm. Automated exposure control was utilized for the study. A dose lowering technique was utilized adhering to the principles of ALARA. MIP reconstructed images were created and reviewed. COMPARISON: No relevant prior studies available. FINDINGS: Pulmonary arteries: Unremarkable. No pulmonary embolism. Aorta: No acute findings. No thoracic aortic aneurysm. Lungs: Unremarkable. No mass. No consolidation. Pleural space: Unremarkable. No significant effusion. No pneumothorax. Heart: Unremarkable. No cardiomegaly. No significant pericardial effusion. No evidence of RV dysfunction. Bones/joints: No acute fracture. No dislocation. Soft tissues: Unremarkable. Lymph nodes: Unremarkable. No enlarged lymph nodes. Gallbladder and bile ducts: Cholecystectomy clips. IMPRESSION: No acute findings in the visualized arteries of the chest. Electronically signed by: Regan Richard MD 03/28/24 23:56 PM
--- NOTE | 2024-03-29 00:49 | CT Scan Report ---
Exam(s): CT ABDOMEN + PELVIS With Contrast IV Amt: 120 ML OPTIRAY 320 EXAM: CT Abdomen and Pelvis With Intravenous Contrast CLINICAL HISTORY: Reason for exam: upper abd pain, hx pancreatitis. TECHNIQUE: Axial computed tomography images of the abdomen and pelvis with intravenous contrast. CTDI is 39.43 mGy and DLP is 1034.45 mGy-cm. Automated exposure control was utilized for the study. A dose lowering technique was utilized adhering to the principles of ALARA. CONTRAST: Patient received 120 ML OPTIRAY 320 of IV contrast COMPARISON: CT abdomen and pelvis 03/15/2024. FINDINGS: Lung bases: Unremarkable. No mass. No consolidation. ABDOMEN: Liver: Hepatic steatosis. Gallbladder and bile ducts: Cholecystectomy. No ductal dilation. Pancreas: Unremarkable. No mass. No ductal dilation. Spleen: Unremarkable. No splenomegaly. Adrenals: Unremarkable. No mass. Kidneys and ureters: No hydronephrosis or delayed nephrogram. Right renal cyst measures 1.4 cm. Stomach and bowel: Wall thickening and surrounding inflammation of the duodenum, correlate for duodenal ulcer disease. Need for upper GI endoscopy should be determined clinically. Diverticulosis, without acute diverticulitis. No small bowel obstruction. No free intraperitoneal air. PELVIS: Appendix: No findings to suggest acute appendicitis. Bladder: Decompressed urinary bladder. Reproductive: Unremarkable as visualized. ABDOMEN and PELVIS: Intraperitoneal space: Unremarkable. No free air. No significant fluid collection. Bones/joints: Degenerative changes of the spine. No acute fracture. No dislocation. Soft tissues: Unremarkable. Vasculature: Atherosclerotic changes of the aorta. No abdominal aortic aneurysm. Lymph nodes: Unremarkable. No enlarged lymph nodes. IMPRESSION: Wall thickening and surrounding inflammation of the duodenum, correlate for duodenal ulcer disease. Need for upper GI endoscopy should be determined clinically. Electronically signed by: Regan Richard MD 03/29/24 00:49 AM
[2024-03-29] MEDS: PANTOprazole 80 MG in DEXTROSE 5% 100 ML IV STA (01:27)
--- NOTE | 2024-03-29 01:28 | History & Physical Report ---
Date of Service March 29, 2024 Assessment & Plan (1) Abdominal pain, acute: Plan: Possible PUD on imaging hx Casanova's esophagus History recurrent pancreatitis Possible pancreatic cancer from [facility] imaging as per patient account hx premature CAD sp stent (05/2023) chronic systolic heart failure, patient euvolemic to dry PAF, patient currently NSR with bradycardic episodes, borderline TBS as per recent cardiology eval HTN, slight elevated hyperlipidemia, on statin Rx prediabetes, hemoglobin A1c of 6.12 October 2023 ongoing tobacco abuse. OBS [facility] Increase daily PPI dose to twice daily Inpatient GI consult Re: Duodenal ulcer on imaging N.p.o. until patient seen by GI in anticipation of endoscopy Hold dual antiplatelet Rx in anticipation of possible endoscopy. Resume when able given stent placement from last year. Retrieve recent [facility] confinement records regarding possible pancreatic malignancy. Nicotine patch as needed DVT prophylaxis. SCDs Re: Possible endoscopy DNR as per discussion with patient. Text document was generated using Passman voice recognition software. It may contain grammatical or spelling errors. Kindly contact undersigned for clarification of any documentation item in question. . History of Present Illness Chief Complaint: Abdominal pain, chest pain Primary Care Provider: Wade Bragg MD History obtained from patient and records. Medical history significant for chronic systolic heart failure (EF 35 to 40%, TTE 2023), premature CAD sp stent (05/2023), PAF as per records, mild MR, history NSVT, HTN, hyperlipidemia, recurrent pancreatitis status post cholecystectomy/ ERCP, Casanova's esophagus, anxiety/mood disorder, ongoing tobacco abuse. Recent confinement March 15 to 2023 for acute on chronic pancreatitis, bradycardia. GI recommended outpatient EUS follow-up with patient's [facility] specialist. Cardiology recommended continuing patient beta-shay despite bradycardia. Losartan added to regimen. Future device implantation for the borderline Tachy-Jamarcus Syndrome/ischemic cardiomyopathy mentioned in report. Shortly after discharge, patient had recurrence of abdominal pain which prompted confinement for a few days at [facility]. Patient was told he may have pancreatic cancer on imaging. Dedicated MRI of the pancreas recommended. Last night, patient had recurrence of achy abdominal pain going to the chest reminiscent of prior pancreatitis attacks. No fever, no chills. No SOB. Denies black or bloody stools. No OTC NSAID intake. IV Pepcid and Protonix administered at the ER. MEDICAL HISTORY: As above. 2020 EGD showed Casanova's esophagus 2019 colonoscopy showed internal hemorrhoids, polyps OPERATIONS: vasectomy, cholecystectomy FAMILY HISTORY:Hypertension, stroke; no pancreatitis PERSONAL AND SOCIAL HISTORY: One-half pack daily. No chronic intake of alcoholic beverages. 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 Allergies Allergy/AdvReac Type Severity Reaction Status Date / Time isosorbide [From Imdur] AdvReac Severe severe Verified 03/28/24 22:05 migraine Home Medications Medication Instructions Recorded Confirmed Type nitroglycerin 0.4 mg sublingual 0.4 mg sublingual .EVERY 5 MINUTES 10/07/18 03/28/24 History tablet (Nitrostat) PRN Chest Pain dicyclomine 10 mg capsule 10 mg PO BID PRN Abdominal Pain 12/06/20 03/28/24 History ezetimibe 10 mg tablet 10 mg PO QAM 12/06/20 03/28/24 History famotidine 40 mg tablet 40 mg PO HS PRN Acid Reflux 12/06/20 03/28/24 History magnesium oxide 400 mg PO QAM 12/06/20 03/28/24 History pantoprazole 40 mg tablet,delayed 40 mg PO QAM 08/20/21 03/28/24 History release aspirin 81 mg tablet,delayed 81 mg PO QAM #30 tabs 05/24/23 03/28/24 Rx release rosuvastatin 40 mg tablet 40 mg PO QAM 06/07/23 03/28/24 History spironolactone 25 mg tablet 12.5 mg (1/2 x 25 mg) PO QAM #15 06/08/23 03/28/24 Rx tabs metoprolol succinate 25 mg 25 mg PO AMHS 07/27/23 03/28/24 History tablet,extended release 24 hr ticagrelor 90 mg tablet (Brilinta) 90 mg PO AMHS 07/27/23 03/28/24 History sertraline 100 mg tablet 100 mg PO QAM 10/21/23 03/28/24 History sucralfate 1 gram tablet 1 g PO ACHS PRN Stomach Upset 03/01/24 03/28/24 History losartan 25 mg tablet 12.5 mg (1/2 x 25 mg) PO QPM #30 03/17/24 03/28/24 Rx tabs Past Med/Surg History Problem List (Updated 03/29/24 @ 01:00 by Liliana Multani PA-C) Abdominal pain, acute (Acute) Acute pancreatitis (Acute) History of coronary artery disease (Acute) History of acute pancreatitis (Acute) Epigastric abdominal pain (Acute) Atypical chest pain (Acute) SVT (supraventricular tachycardia) Chest pain (Acute) Acute pancreatitis (Acute) GERD (gastroesophageal reflux disease) Chest pain (Acute) Ischemic cardiomyopathy Non-sustained ventricular tachycardia (Acute) Elevated troponin (Acute) Bradycardia (Acute) Chronic pancreatitis Sinus bradycardia Chest pain (Acute) Hematoma Tobacco abuse Recurrent pancreatitis Non-ST elevation (NSTEMI) myocardial infarction (Acute) Acute on chronic pancreatitis Abdominal pain (Acute) Lesion of pancreas Elevated lipase Pancreatitis (Acute) Chest pain (Acute) Chest pain Acute pancreatitis (Acute) Abdominal pain, periumbilical (Acute) Anemia Hypomagnesemia Hypophosphatemia Hx laparoscopic cholecystectomy (08/22/21) Laparoscopic Cholecystectomy Dr. Davidson 08/22/2021 Grade II diastolic dysfunction Barretts esophagus Acute pancreatitis (Acute) Non-ST elevation SC (NSTEMI) (Acute) Breath shortness (Acute) DVT prophylaxis Chest pain (Acute) HLD (hyperlipidemia) RADHA (generalized anxiety disorder) CAD (coronary artery disease) (Acute) 2018-RCA stent x 2 07/2020-STEMI, s/p PCI to left circumflex with 2 MELLY. Post procedure complicated by V. fib arrest requiring defibrillation. 12/2020-NSTEMI s/p 3 Xience MELLY to the distal aspect of prior stent of the left posterior lateral branch vessel Depression GERD (gastroesophageal reflux disease) (Acute) Medical History ST elevation myocardial infarction (STEMI) COVID-29 Oct 2021 Mobitz type 2 second degree atrioventricular block Tobacco abuse Splenic infarct Surgical History History of endoscopic retrograde cholangiopancreatography x2 (08/31, 09/30) History of vasectomy Family History Mother Gallbladder disease Sister Gallbladder disease Other Diabetes Stroke Denies family history of Pancreatic disease Social History Smoking Status: Current every day smoker Tobacco Type: Cigarettes Cigarettes Per Day: 1 pck/day; Second Hand Exposure: No; Do You Dip or Chew Tobacco: No; Hx Alcohol Use: No Hx Substance Use: No Preferred Language: Belgian Communication Ability: Effective 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: No Beliefs That Will Affect Care: None marital status: Single Current Living Situation: Alone current occupational status: employed Feels Safe at Home: Yes Safety Concerns: Feels Safe At This Time Assistive Devices: None Review of Systems Review of Systems: As per HPI, all other systems reviewed and negative Physical Exam Physical Exam: GENERAL: comfortable, pleasant, no respiratory distress SKIN: Normal color, warm HEENT: Alopecia, pink palpebral conjunctivae, no ptosis, dry buccal mucosa NECK : Supple, no tenderness CHEST : CTA, no tenderness HEART : Bradycardic, no obvious murmurs ABDOMEN: some distention, epigastric tenderness EXTREMITIES : No LE swelling/tenderness, no other conspicuous deformities noted NEUROLOGIC : Coherent, no facial asymmetry, no other gross focality Results & Data Results & Data Vital Signs (Past 12 Hours) Vital Signs Temp Pulse Pulse Resp BP BP Pulse Ox 03/29/24 01:15 58 L 03/29/24 00:44 49 L 19 158/89 H 98 03/29/24 00:16 53 L 19 148/99 H 95 03/28/24 23:36 54 L 22 162/101 H 97 03/28/24 22:00 66 26 H 162/103 H 96 03/28/24 21:23 66 03/28/24 21:12 36.6 C 83 18 151/96 H 99 O2 Del Method 03/29/24 01:15 03/29/24 00:44 Room Air 03/29/24 00:16 Room Air 03/28/24 23:36 Room Air 03/28/24 22:00 Room Air 03/28/24 21:23 03/28/24 21:12 Room Air Laboratory Results Laboratory Results WBC 8.67 K/ul (4.8-10.8) 03/28/24 21:20 RBC 4.37 M/uL (4.70-6.10) L 03/28/24 21:20 Hgb 14.4 g/dl (14.0-18.0) 03/28/24 21:20 Hct 41.4 % (42.0-52.0) L 03/28/24 21:20 MCV 94.7 fL (80.0-100.0) 03/28/24 21:20 MCH 33.0 pg (25.0-34.0) 03/28/24 21:20 MCHC 34.8 g/dL (32.0-36.0) 03/28/24 21:20 RDW Std Deviation 48.6 fL (36.4-46.3) H 03/28/24 21:20 RDW Coeff of Mckinley 14.0 % (11.5-14.5) 03/28/24 21:20 Plt Count 360 K/uL (130-400) 03/28/24 21:20 MPV 8.9 fL (9.4-12.4) L 03/28/24 21:20 Immature Gran % (Auto) 0.3 % 03/28/24 21:20 Neut % (Auto) 58.6 % 03/28/24 21:20 Lymph % (Auto) 30.8 % 03/28/24 21:20 Ida % (Auto) 6.8 % 03/28/24 21:20 Eos % (Auto) 2.5 % 03/28/24 21:20 Baso % (Auto) 1.0 % 03/28/24 21:20 Neut # (Auto) 5.07 K/uL (1.40-6.50) 03/28/24 21:20 Lymph # (Auto) 2.67 K/uL (1.20-3.40) 03/28/24 21:20 Ida # (Auto) 0.59 K/uL (0.11-0.59) 03/28/24 21:20 Eos # (Auto) 0.22 K/uL (0.00-0.50) 03/28/24 21:20 Baso # (Auto) 0.09 K/uL (0.00-0.20) 03/28/24 21:20 Immature Gran # (Auto) 0.03 K/uL (0.01-0.20) 03/28/24 21:20 PT 10.3 Seconds (9.0-12.0) 03/28/24 21:20 INR 0.9 (0.9-1.1) 03/28/24 21:20 APTT 24 Seconds (21-31) 03/28/24 21:20 PTT Ratio 0.9 03/28/24 21:20 Sodium 137 mmol/L (136-145) 03/28/24 21:20 Potassium 3.9 mmol/L (3.5-5.1) 03/28/24 21:20 Chloride 106 mmol/L (98-107) 03/28/24 21:20 Carbon Dioxide 25 mmol/L (21-32) 03/28/24 21:20 Anion Gap 6 (3-11) 03/28/24 21:20 BUN 17 mg/dl (6-23) 03/28/24 21:20 Creatinine 1.09 mg/dl (0.6-1.4) 03/28/24 21:20 Est Cr Clr Drug Dosing 65.2 ml/min 03/28/24 21:20 Est GFR ( Amer) 88.7 ml/min 03/28/24 21:20 Est GFR (Non-Af Amer) 76.5 ml/min 03/28/24 21:20 BUN/Creatinine Ratio 15.6 (10-20) 03/28/24 21:20 Glucose 113 mg/dl (70-99(Fasting)) H 03/28/24 21:20 Calcium 9.6 mg/dl (8.6-10.3) 03/28/24 21:20 Total Bilirubin 0.4 mg/dl (0.2-1.0) 03/28/24 21:20 AST 13 U/L (13-39) 03/28/24 21:20 ALT 10 U/L (7-52) 03/28/24 21:20 Alkaline Phosphatase 83 U/L (34-104) 03/28/24 21:20 Troponin I High Sens 12.3 pg/ml (0-20) 03/28/24 21:20 Total Protein 7.7 gm/dl (6.0-8.3) 03/28/24 21:20 Albumin 4.6 gm/dl (3.4-5.0) 03/28/24 21:20 Globulin 3.1 gm/dl (2.5-4.0) 03/28/24 21:20 Albumin/Globulin Ratio 1.5 (0.9-2) 03/28/24 21:20 Lipase 85 U/L (11-82) H 03/28/24 21:20 Impressions Abdomen/Pelvis CT 03/28/24 21:54 Exam(s): CT ABDOMEN + PELVIS With Contrast IV Amt: 120 ML OPTIRAY 320 EXAM: CT Abdomen and Pelvis With Intravenous Contrast CLINICAL HISTORY: Reason for exam: upper abd pain, hx pancreatitis. TECHNIQUE: Axial computed tomography images of the abdomen and pelvis with intravenous contrast. CTDI is 39.43 mGy and DLP is 1034.45 mGy-cm. Automated exposure control was utilized for the study. A dose lowering technique was utilized adhering to the principles of ALARA. CONTRAST: Patient received 120 ML OPTIRAY 320 of IV contrast COMPARISON: CT abdomen and pelvis 03/15/2024. FINDINGS: Lung bases: Unremarkable. No mass. No consolidation. ABDOMEN: Liver: Hepatic steatosis. Gallbladder and bile ducts: Cholecystectomy. No ductal dilation. Pancreas: Unremarkable. No mass. No ductal dilation. Spleen: Unremarkable. No splenomegaly. Adrenals: Unremarkable. No mass. Kidneys and ureters: No hydronephrosis or delayed nephrogram. Right renal cyst measures 1.4 cm. Stomach and bowel: Wall thickening and surrounding inflammation of the duodenum, correlate for duodenal ulcer disease. Need for upper GI endoscopy should be determined clinically. Diverticulosis, without acute diverticulitis. No small bowel obstruction. No free intraperitoneal air. PELVIS: Appendix: No findings to suggest acute appendicitis. Bladder: Decompressed urinary bladder. Reproductive: Unremarkable as visualized. ABDOMEN and PELVIS: Intraperitoneal space: Unremarkable. No free air. No significant fluid collection. Bones/joints: Degenerative changes of the spine. No acute fracture. No dislocation. Soft tissues: Unremarkable. Vasculature: Atherosclerotic changes of the aorta. No abdominal aortic aneurysm. Lymph nodes: Unremarkable. No enlarged lymph nodes. IMPRESSION: Wall thickening and surrounding inflammation of the duodenum, correlate for duodenal ulcer disease. Need for upper GI endoscopy should be determined clinically. Electronically signed by: Regan Richard MD 03/29/24 00:49 AM Chest CTA 03/28/24 21:54 Exam(s): CTA CHEST IV Amt: 120 ML OPTIRAY 320 EXAM: CT Angiography Chest With Intravenous Contrast CLINICAL HISTORY: Reason for exam: PE. TECHNIQUE: Axial computed tomographic angiography images of the chest with intravenous contrast. CTDI is 39.43 mGy and DLP is 1034.45 mGy-cm. Automated exposure control was utilized for the study. A dose lowering technique was utilized adhering to the principles of ALARA. MIP reconstructed images were created and reviewed. COMPARISON: No relevant prior studies available. FINDINGS: Pulmonary arteries: Unremarkable. No pulmonary embolism. Aorta: No acute findings. No thoracic aortic aneurysm. Lungs: Unremarkable. No mass. No consolidation. Pleural space: Unremarkable. No significant effusion. No pneumothorax. Heart: Unremarkable. No cardiomegaly. No significant pericardial effusion. No evidence of RV dysfunction. Bones/joints: No acute fracture. No dislocation. Soft tissues: Unremarkable. Lymph nodes: Unremarkable. No enlarged lymph nodes. Gallbladder and bile ducts: Cholecystectomy clips. IMPRESSION: No acute findings in the visualized arteries of the chest. Electronically signed by: Regan Richard MD 03/28/24 23:56 PM Diagnostic Findings EKG as per my interpretation : Rate 65, NSR, normal axis, incomplete RBBB, T wave abnormalities inferior leads
[2024-03-29] MEDS ORDERED: MoRPHine SULFATE 4 MG/ML 1 ML CARP\\VIAL IV PRN (01:37)
[2024-03-29] MEDS ORDERED: LORazepam 0.5 MG TAB PO PRN (01:37)
[2024-03-29] MEDS: NSS + 20MEQ KCL 20 MEQ/1,000 ML BAG IV ONE (01:47)
[2024-03-29 02:04] LABS: Magnesium 2.1 mg/dl (1.7-2.4)
[2024-03-29] MEDS: MoRPHine SULFATE 2 MG/ML CARP IV PRN (02:37)
[2024-03-29 06:42] LABS: Basophils # (auto) 0.14 K/uL (0.00-0.20); Basophils % (auto) 1.4 %; Eosinophils # (auto) 0.22 K/uL (0.00-0.50); Eosinophils % (auto) 2.2 %; Hematocrit (blood only) 44.2 % (42.0-52.0); Hemoglobin 15.3 g/dl (14.0-18.0); Immature Granulocytes # (auto) 0.09 K/uL (0.01-0.20); Immature Granulocytes % (auto) 0.9 %; Lymphocytes # (auto) 2.73 K/uL (1.20-3.40); Lymphocytes % (auto) 27.2 %; Mean Corpuscular Hgb Conc 34.6 g/dL (32.0-36.0); Mean Corpuscular Volume 95.3 fL (80.0-100.0); Monocytes # (auto) 0.66 K/uL (0.11-0.59); Monocytes % (auto) 6.6 %; Neutrophils % (auto) 61.7 %; Platelet Count 388 K/uL (130-400); RDW Coefficient of Variation 14.1 % (11.5-14.5); RDW Standard Deviation 49.5 fL (36.4-46.3); Red Blood Count 4.64 M/uL (4.70-6.10); White Blood Count 10.04 K/ul (4.8-10.8)
--- NOTE | 2024-03-29 06:57 | XRay Report ---
SINGLE VIEW CHEST CLINICAL HISTORY: Atypical chest pain FINDINGS: An AP, portable, upright chest radiograph is compared to study dated 03/15/2024. The heart is enlarged noting atherosclerotic calcification of the thoracic aorta. The pulmonary vasculature is no ncongested. There is mild bibasilar scarring/atelectasis. The lungs and pleural spaces are otherwise clear. No pneumothorax is seen. The bony thorax is grossly intact. IMPRESSION: Cardiomegaly with no active disease in the chest. ACT 112: Negative or not required by law. Electronically signed by: Angel Martinez M.D. 03/29/2024 6:56 AM
--- OUTSIDE RECORDS SUMMARY | 2024-03-29 07:38 | External Medical Summary | Summary of Care ---
Author Name Unknown Organization [facility] Address [address] [place] [address] Phone [phone] Care Team Providers Care Youth Nutritional Monitor Name Role Phone Wade Bragg MD Primary Care Provider [phone] Reason for Visit * Reason Onset Date Comments Hospital Follow-Up 03/20/2024 DANIEL Encounter Details Date Type Department Care Team (Late st Contact Info) Description 03/20/2024 Telephone [facility]ly [facility] [address] [place] [address] Nikki Padilla, DOMINGUEZ Hospital Follow-Up (DANIEL) Allergies Active Allergy Reactions Criticality Noted Date Comments Isosorbide Nitrate 07/30/2023 Severe Mirgrains documented as of this encounter (statuses as of 03/20/2024) Medications Medication Sig Dispensed Refills Start Date [...] a day before meals and at bedtime. 07/12/2023 Active Ezetimibe 10 MG Oral Tablet (Zetia)Indications:C oronary artery disease involving eyak coronary artery of eyak heart without angina pectoris,Dyslipidemi a, goal LDL below 130,Old NC (myocardial infarction) take 1 tablet by mouth every morning 90 Tablet 3 08/30/2023 Active Pantoprazole Sodium 40 MG Oral Tablet Delayed Release (Protonix) take 1 tablet by mouth every morning 90 Tablet 3 08/30/2023 Active Nitroglycerin 0.4 MG Sublingual Tablet Sublingual (Nitrostat)Indicatio ns:Coronary artery disease involving eyak coronary artery of eyak heart without angina pectoris place 1 tablet under the tongue if needed every 5 minutes for chest pain for 3 doses IF NO RELIEF AFTER THIRD DOSE CALL 911. 25 Tablet 11 08/30/2023 Active Magnesium Oxide (Antacid) 400 MG Oral Tablet take 1 tablet by mouth IN THE MORNING 90 Tablet 3 08/30/2023 Active Sertraline HCl 100 MG Oral Tablet (Zoloft) Take 1 Tablet by mouth in the morning. 90 Tablet 3 09/14/2023 Active Rosuvastatin Calcium 40 MG Oral Tablet (Crestor) TAKE 1 TABLET BY MOUTH EVERY MORNING 90 Tablet 3 10/18/2023 Active Famotidine 40 MG Oral Tablet (Pepcid)Indications: 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,Gastroesop hageal reflux disease without esophagitis take 1 tablet by mouth BEFORE BEDTIME 90 Tablet 2 12/30/2023 Active Aspirin 81 MG Oral Tablet Delayed Release (Aspirin Low Dose) Take 1 tablet by mouth every morning 90 Tablet 3 12/30/2023 Active Metoprolol Succinate ER 25 MG Oral Tablet Extended Release 24 Hour (toPROL XL)Indications:Coron clark artery disease involving eyak coronary artery of eyak heart without angina pectoris,Ischemic cardiomyopathy,Dysli pidemia, goal LDL below 70,Tobacco use disorder Take 1 Tablet by mouth in the morning and 1 Tablet before bedtime. 180 Tablet 3 12/30/2023 Active Hospital, Clinic, or Other Facility Administered Medication Ordered Dose Route Frequency Start Date End Date Status albuterol sulfate (PROVENTIL) (2.5 MG/3ML) 0.083% inhalation solution 2.5 mgIndications:SOB (shortness of breath) 2.5 mg NEBULIZER Q4H PRN 03/02/2019 Act rolanda documented as of this encounter (statuses as of 03/20/2024) Active Problems Problem Noted Date Diagnosed Date Ischemic cardiomyopathy 06/22/2023 NSVT (nonsustained ventricular tachycardia) 06/[address] elevation myocardial infarction (S ANT) 06/22/2023 HFrEF (heart failure with reduced ejection fract ion) 06/22/2023 S/P angioplasty with stent 05/28/2023 Gastroesophageal reflux dise ase with esophagitis without hemorrhage 12/16/2020 Old NC (myocardial infarction) 06/27/2018 Coronary artery disease of n ative artery of eyak heart with stable angina pectoris 06/27/2018 History of acute pancreatitis 06/27/2018 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 Dyslipidemia, goal LDL below 70 09/18/2013 Generalized anxiety disorder 03/09/2013 Tobacco use disorder 01/03/2013 documented as of this encounter (statuses as of 03/20/2024) Resolved Problems Problem Noted Date Diagnosed Date [...] medical exam 01/03/2013 018 Gastroesophageal reflux 01/03/2013 0305/2021 Screening for cardiovascular condition 01/03/2013 05/31/2017 Vasectomy status 03/07/2003 09/16/2015 Syncope and collapse 04/26/2002 015 Anxiety state 04/26/2002 09/16/2015 documented as of this encounter (statuses as of 03/20/2024) Immunizations Name Administration Dates Next Due Hepatitis B, 20+ yrs 08/24/2011,04/09/2011,03/05 PPD 08/10/2014 Seasonal Influenza, PF, 6 M & above, IM , (FluLaval or Fluzone) 08/17/2022(Deferred: Patient Refused) TDAP, Age 7 and older, IM (Adacel) 12/21/2012 documented as of this encounter Social [...] Telephone Encounter - Nikki Padilla RN - 03/20/2024 1:52 PM EDT Transitions of Care Note Reason for Referral:Recent Admission Phone visit for follow up: DANIEL #1 Admitted to: [facility], Date: 03/15/2024 Discharged to: Home, Date: 03/17/2024 Diagnosis driving hospitalization: Acute on Chronic Pancreatitis New medications: Losartan Discontinued medication: Oxycodone Attempted DANIEL - no answer. Left message to return call [phone] or . Nikki Padilla RN documented in this encounter Plan of Treatment Upcoming Encounters Date Type Department Care Team (Late st Contact Info) Description 03/22/2024 9:20 AM EDT [facility] [address] [phone] Josh Salomon MD [address] [phone] 04/20/2024 2:00 PM EDT Office Visit Cardiology, [facility] [address] [place] [phone] Carmen Hutton PA-C [address] [place] [place] [phone] Scheduled Procedures Name Priority Associated Diagnoses Date/Ti me ESOPHAGOGASTRODUODENOSCOPY ( EGD), FLEXIBLE, TRANSORAL, DIAGNOSTIC Recall 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 COLONOSCOPY FLEXIBLE PROXIMAL DIAGNOSTIC Recall History of colonic polyps Health Maintenance Due Date Last Done Comments DISCUSS TOBACCO CESSATION (REFER TO SMARTSET #[id number]) 1969 Pneumococcal Vaccine: Pediatrics (0 to 5 Years) and At-Risk Patients (6 to 64 Years) (1 of 2 - PCV) 1975 Hepatitis C Screening 1987 Cologuard 2014 Fecal Occult Blood Test 2014 Sigmoidoscopy 2014 Zoster Vaccines (1 of 2) 2019 DTaP,Tdap,and Td Vaccines (2 - Td or Tdap) 12/21/2022 12/21/2012 COVID-19 Vaccine (1 - 2022- season) 2023 Depression Screening 02/16/2024 02/15/2023, 05/31/20 17 Influenza Vaccine (FLU shot) (Season Ended) 2024 Casanova's Esophagus Surveilance 09/23/2024 09/23/2021, 08/22/2021, 05/06/2020, Additional history exists Colonoscopy 05/06/2025 05/06/2020, 05/06/2020 Colorectal Cancer Screening 05/06/2025 Hepatitis B Completed 08/24/2011, 03/13, 03/05/2011 RETIRED - COLONOSCOPY-EVERY 5 YRS AGES 18-100 Discontinued 05/06/2020, 05/06/2020 GARDASIL-HPV IMMUNIZATION SERIES Aged Out No longer eligible based on patient's age to complete this topic MENINGOCOCCAL (MENACTRA/MENVEO) Aged Out No longer eligible based on patient's age to complete this topic documented as of this encounter Medical Devices Not on filedocumented as of this encounter Advance Directives * Full Code (Latest Code Status on File) Date Activated Date Inactivated Comments 08/14/2022 1:00 AM 08/17/2022 2:38 PM This order r eflects the patients wishes and were consensually agreed upon. Question Answer Comments Discussion of Advance Directives occurred with: Patient Care Teams Youth Nutritional Monitor Relationship Specialty Start Date End Date Wade Bragg MD [address] [place] [address] PCP - General Family Medicine 03/24/18 documented as of this encounter
--- OUTSIDE RECORDS SUMMARY | 2024-03-29 07:38 | External Medical Summary | Summary of Care ---
Author Name Unknown Organization [facility] Address [address] [place] [address] Phone [phone] Care Team Providers Care Black Top Machine Operator Name Role Phone Wade Bragg MD Primary Care Provider [phone] Reason for Visit * Reason Onset Date Comments Hospital Follow-Up 03/20/2024 DANIEL Encounter Details Date Type Department Care Team (Late st Contact Info) Description 03/20/2024 Telephone [facility]ly [facility] [address] [place] [address] Nikki Padilla, DOMINGUEZ Hospital Follow-Up (DANIEL) Allergies Active Allergy Reactions Criticality Noted Date Comments Isosorbide Nitrate 07/30/2023 Severe Mirgrains documented as of this encounter (statuses as of 03/21/2024) Medications Medication Sig Dispensed Refills Start Date [...] Oral Tablet (Zetia)Indications:C oronary artery disease involving platinum coronary artery of platinum heart without angina pectoris,Dyslipidemi a, goal LDL below 130,Old DC (myocardial infarction) take 1 tablet by mouth every morning 90 Tablet 3 08/30/2023 Active Pantoprazole Sodium 40 MG Oral Tablet Delayed Release (Protonix) take 1 tablet by mouth every morning 90 Tablet 3 08/30/2023 Active Nitroglycerin 0.4 MG Sublingual Tablet Sublingual (Nitrostat)Indicatio ns:Coronary artery disease involving platinum coronary artery of platinum heart without angina pectoris place 1 tablet [...] Hour (toPROL XL)Indications:Coron clark artery disease involving platinum coronary artery of platinum heart without angina pectoris,Ischemic cardiomyopathy,Dysli pidemia, goal [...] as of this encounter (statuses as of 03/21/2024) Active Problems Problem Noted Date Diagnosed Date Ischemic cardiomyopathy 06/22/2023 NSVT (nonsustained ventricular tachycardia) 06/[address] elevation myocardial infarction (S ANT) 06/22/2023 HFrEF (heart failure with reduced ejection fract ion) 06/22/2023 S/P angioplasty with stent 05/28/2023 Gastroesophageal reflux dise ase with esophagitis without hemorrhage 12/16/2020 Old DC (myocardial infarction) 06/27/2018 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 06/27/2018 History of acute pancreatitis 06/27/2018 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 Left message to return call [phone] or . Nikki Padilla RN Transitions of Care Note Reason for Referral:Recent Admission Phone visit for follow up: DANIEL #2 Admitted to: [facility], Date: 03/15/2024 Discharged to: Home, Date: 03/17/2024 Diagnosis driving hospitalization: Acute on Chronic Pancreatitis Attempted DANIEL - no answer. Left message to return call [phone] or . Nikki Padilla RN documented in this encounter Plan of Treatment Upcoming Encounters Date Type Department Care Team (Late st Contact Info) Description 04/20/2024 2:00 PM EDT Office Visit Cardiology, [facility] [address] [place] [id number] Carmen Hutton PA-C [address] [place] [id number] Scheduled Procedures Name Priority Associated Diagnoses Date/Ti me ESOPHAGOGASTRODUODENOSCOPY ( EGD), FLEXIBLE, TRANSORAL, DIAGNOSTIC Recall 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 COLONOSCOPY FLEXIBLE PROXIMAL DIAGNOSTIC Recall History of colonic polyps Health Maintenance Due Date Last Done Comments DISCUSS TOBACCO CESSATION (REFER TO SMARTSET #[id number]) 1970 Pneumococcal Vaccine: Pediatrics (0 to 5 [...] Advance Directives occurred with: Patient Care Teams Black Top Machine Operator Relationship Specialty Start Date End Date Wade Bragg MD [address] [place] [facility] [place] [address] PCP - General Family Medicine 03/24/18 documented as of this encounter
[2024-03-29] MEDS: METOPROLOL SUCC 25MG EXT REL TAB PO SCH (08:21)
[2024-03-29] MEDS: MAGNESIUM OXIDE 400 MG TAB PO SCH (08:21)
[2024-03-29] MEDS: EZETIMIBE 10 MG TAB PO SCH (08:21)
[2024-03-29] MEDS: ROSUVASTATIN CALCIUM 20 MG TAB PO SCH (08:22)
[2024-03-29] MEDS: SERTRALINE HCL 100 MG TABLET PO SCH (08:22)
[2024-03-29] MEDS: PANTOprazole 40 MG TAB PO SCH (08:22)
[2024-03-29] MEDS ORDERED: ASPIRIN 81 MG ECTAB PO SCH (09:00)
--- NOTE | 2024-03-29 10:33 | Gastrointestinal Consultation ---
Date of Consultation March 29, 2024 Assessment & Plan (1) Abdominal pain, acute: 53 year old male with history of [place] x 2, PCI stents placements currently on ASA and Brilinta who was admitted with abd pain, recurrent pancreatitis following with [facility], previous EUS & ERCPs with pancreatic stenting/stone who is admitted with unchanged upper abd pain, imaging showing wall thickening and inflammatory changes of the duodenum. DDX discussed: residual inflammatory changes recent pancreatitis vs PUD. I called [facility] and there is no procedure scheduled for today or this week. Would continue conservative management. IV PPI for 48 hours. If remains clinically stable w/ stable HGB without BUN elevation, convert to PO PPI BID x 1 month. Trend H&H. Monitor and document GI output. Antiemetics PRN. Analgesia PRN. Will need follow up with [facility] GI at discharge. Thank you for allowing us to participate in the care of this patient. Please call with any acute changes, questions or concerns. Please see addendum below with additional recommendation from my supervising physician. I spent a total of 55 minutes on the date of service in review of patient's record, and previously obtained information in person and appropriate medical visit, discussion and education of plan, with patient and/or caregiver, placing orders for tests/referral/procedures as medically necessary and documentation of pertinent clinical information in patient's medical records for their visit today. Plan I examined the patient and reviewed patient's chart , laboratory data and imaging studies. I agree with with assessment and plan of care as suggested by advanced practice provider. However due to worsening of abdominal pain and abnormal CAT scan showing duodenal edema the patient will have to upper endoscopy tomorrow to rule out duodenal ulcer. Okay to continue Brilinta. History of Present Illness Reason for Consultation: abd pain Requesting Physician: Danielle Attending Physician: Lukas Santos MD History of Present Illness 53 year old male with history of ME x 2, PCI stents placements currently on ASA and Brilinta who was admitted with abd pain, recurrent pancreatitis following with [facility], previous EUS & ERCPs with pancreatic stenting/stone removal planned for an outpatient EUS today at [facility] who is admitted with abd pain. Pt was seen and evaluated, chart reviewed. Notes that his pain is unchanged since his admission in March for acute pancreatitis. Endorses upper abd pain, nausea. No vomiting. Reports daily BMs, loose at time. No black or bloody stools. No black or bloody emesis. Uses tobacco No ETOH reported Occasional NSAIDs but unable to tell me how much or how often CTA 2023: Wall thickening and surrounding inflammation of the duodenum, correlate for duodenal ulcer disease. Need for upper GI endoscopy should be determined clinically. Allergies Allergy/AdvReac Type Severity Reaction Status Date / Time isosorbide [From Imdur] AdvReac Severe severe Verified 03/28/24 22:05 migraine Home Medications Medication Instructions Recorded Confirmed Type nitroglycerin 0.4 mg sublingual 0.4 mg sublingual .EVERY 5 MINUTES 10/07/18 03/28/24 History tablet (Nitrostat) PRN Chest Pain dicyclomine 10 mg capsule 10 mg PO BID PRN Abdominal Pain 12/06/20 03/28/24 History ezetimibe 10 mg tablet 10 mg PO QAM 12/06/20 03/28/24 History famotidine 40 mg tablet 40 mg PO HS PRN Acid Reflux 12/06/20 03/28/24 History magnesium oxide 400 mg PO QAM 12/06/20 03/28/24 History pantoprazole 40 mg tablet,delayed 40 mg PO QAM 08/20/21 03/28/24 History release aspirin 81 mg tablet,delayed 81 mg PO QAM #30 tabs 05/24/23 03/28/24 Rx release rosuvastatin 40 mg tablet 40 mg PO QAM 06/07/23 03/28/24 History spironolactone 25 mg tablet 12.5 mg (1/2 x 25 mg) PO QAM #15 06/08/23 03/28/24 Rx tabs metoprolol succinate 25 mg 25 mg PO AMHS 07/27/23 03/28/24 History tablet,extended release 24 hr ticagrelor 90 mg tablet (Brilinta) 90 mg PO AMHS 07/27/23 03/28/24 History sertraline 100 mg tablet 100 mg PO QAM 10/21/23 03/28/24 History sucralfate 1 gram tablet 1 g PO ACHS PRN Stomach Upset 03/01/24 03/28/24 History losartan 25 mg tablet 12.5 mg (1/2 x 25 mg) PO QPM #30 03/17/24 03/28/24 Rx tabs Patient History Medical History ST elevation myocardial infarction (STEMI) COVID-29 Oct 2021 Mobitz type 2 second degree atrioventricular block Tobacco abuse Splenic infarct Surgical History History of endoscopic retrograde cholangiopancreatography x2 (08/31, 09/30) History of vasectomy Family History Mother Gallbladder disease Sister Gallbladder disease Other Diabetes Stroke Denies family history of Pancreatic disease Social History Smoking Status: Current every day smoker Tobacco Type: Cigarettes Cigarettes Per Day: 1 pck/day; Second Hand Exposure: No; Do You Dip or Chew Tobacco: No; Hx Alcohol Use: No Hx Substance Use: No Preferred Language: Belarusian Communication Ability: Effective Director Of Testing Required: No Beliefs That Will Affect Care: None marital status: Single Current Living Situation: Alone current occupational status: employed Feels Safe at Home: Yes Safety Concerns: Feels Safe At This Time Assistive Devices: None Review of Systems Review of Systems: All other findings negative except as noted in HPI. Physical Exam Constitutional: WD/WN, vitals as above Respiratory: normal respiratory effort, lungs clear to auscultation Cardiovascular: Rate/Rhythm: regular rate and regular rhythm Gastrointestinal (Abdomen): Percussion/Palpation: + abdomen tender and abdomen soft; no guarding and abdomen not rigid Skin: no rashes, warm and dry Results & Data Vital Signs (Past 12 Hours) Vital Signs Pulse Pulse Resp BP BP Pulse Ox O2 Del Method 03/29/24 10:00 65 18 156/102 H 97 Room Air 03/29/24 08:00 50 L 18 140/93 96 Room Air 03/29/24 07:30 56 L 03/29/24 07:13 131/83 03/29/24 07:12 73 22 131/83 96 03/29/24 04:00 52 L 16 148/105 H 96 Room Air 03/29/24 03:00 55 L 17 148/96 H 96 Room Air 03/29/24 02:08 56 L 18 147/96 H 97 Room Air 06/19/24 01:15 58 L 03/29/24 00:44 49 L 19 158/89 H 98 Room Air 03/29/24 00:16 53 L 19 148/99 H 95 Room Air 03/28/24 23:36 54 L 22 162/101 H 97 Room Air Laboratory Results 03/29/24 03/28/24 Range/Units 05:58 21:20 WBC 10.04 8.67 (4.8-10.8) K/ul RBC 4.64 L 4.37 L (4.70-6.10) M/uL Hgb 15.3 14.4 (14.0-18.0) g/dl Hct 44.2 41.4 L (42.0-52.0) % MCV 95.3 94.7 (80.0-100.0) fL MCH 33.0 33.0 (25.0-34.0) pg MCHC 34.6 34.8 (32.0-36.0) g/dL RDW Std Deviation 49.5 H 48.6 H (36.4-46.3) fL RDW Coeff of Mckinley 14.1 14.0 (11.5-14.5) % Plt Count 388 360 (130-400) K/uL MPV 9.0 L 8.9 L (9.4-12.4) fL Immature Gran % (Auto) 0.9 0.3 % Neut % (Auto) 61.7 58.6 % Lymph % (Auto) 27.2 30.8 % Highlands % (Auto) 6.6 6.8 % Eos % (Auto) 2.2 2.5 % Baso % (Auto) 1.4 1.0 % Neut # (Auto) 6.20 5.07 (1.40-6.50) K/uL Lymph # (Auto) 2.73 2.67 (1.20-3.40) K/uL Highlands # (Auto) 0.66 H 0.59 (0.11-0.59) K/uL Eos # (Auto) 0.22 0.22 (0.00-0.50) K/uL Baso # (Auto) 0.14 0.09 (0.00-0.20) K/uL Immature Gran # (Auto) 0.09 0.03 (0.01-0.20) K/uL PT 10.3 (9.0-12.0) Seconds INR 0.9 (0.9-1.1) APTT 24 (21-31) Seconds PTT Ratio 0.9 Sodium 137 (136-145) mmol/L Potassium 3.9 (3.5-5.1) mmol/L Chloride 106 (98-107) mmol/L Carbon Dioxide 25 (21-32) mmol/L Anion Gap 6 (3-11) BUN 17 (6-23) mg/dl Creatinine 1.09 (0.6-1.4) mg/dl Est Cr Clr Drug Dosing 65.2 ml/min Est GFR ( Amer) 88.7 ml/min Est GFR (Non-Af Amer) 76.5 ml/min BUN/Creatinine Ratio 15.6 (10-20) Glucose 113 H (70-99(Fasting)) mg/dl Calcium 9.6 (8.6-10.3) mg/dl Magnesium 2.1 (1.7-2.4) mg/dl Total Bilirubin 0.4 (0.2-1.0) mg/dl AST 13 (13-39) U/L ALT 10 (7-52) U/L Alkaline Phosphatase 83 (34-104) U/L Troponin I High Sens 12.3 (0-20) pg/ml Total Protein 7.7 (6.0-8.3) gm/dl Albumin 4.6 (3.4-5.0) gm/dl Globulin 3.1 (2.5-4.0) gm/dl Albumin/Globulin Ratio 1.5 (0.9-2) Lipase 85 H (11-82) U/L PG Care Time/CCT Total # of Minutes Spent Total Time Spent with Patient: Total time spent is greater than 50% in coordination of care (as documented) at patient's floor/unit and/or counseling patient: Coding Level of Care Code 76930 IN/OBS CONSULT LVL 4,60M Diagnoses Abdominal pain, acute R10.9
[2024-03-29] MEDS: HYDROmorphone INJ 0.5 MG/0.5 ML SYR IV PRN (12:40)
[2024-03-29] MEDS: oxyCODONE HCL IR 5 MG TAB (IMMEDIATE RELEASE) PO PRN (14:02)
--- NOTE | 2024-03-29 16:22 | Electrocardiogram Report ---
Test Reason : Blood Pressure : / mmHG Vent. Rate : 063 BPM Atrial Rate : 063 BPM P-R Int : 122 ms QRS Dur : 088 ms QT Int : 370 ms P-R-T Axes : 067 -14 009 degrees QTc Int : 378 ms Normal sinus rhythm Inferior-posterior infarct (cited on or before 10-JUL-2023) Abnormal ECG When compared with ECG of 15-MAR-2024 18:57, Borderline criteria for Lateral infarct are no longer Present T wave amplitude has increased in Lateral leads Confirmed by Neo Garrett ([id number]) on 03/29/2024 4:22:25 PM Referred By: REFERRED SELF Confirmed By:Neo Garrett
--- NOTE | 2024-03-29 16:42 | Communication Note ---
Date of Service: March 29, 2024 Patient reports severe epigastric pain; reports that the pain is worse than previous pancreatitis flareup. CT abdomen pelvis shows wall thickening and surrounding inflammation of the duodenum; consistent with duodenal ulcer disease. On physical examination; Constitutional: WD/WN, vitals as above, NAD, sitting up in bed, pleasant, conversing easily Respiratory: normal respiratory effort, lungs clear to auscultation, no wheeze, rales, rhonchi. Normal insp/exp effort, no accessory muscle use Cardiovascular: RRR, no murmur, no edema Vessels: no JVD or carotid bruit Chest: normal inspection of chest Abdomen: Tenderness in epigastric region. Musculoskeletal: no cyanosis or clubbing, extremities motor strength 5/5 Skin: no rashes, warm and dry normal turgor Neurologic: PERRL, EOMI, accommodation nl, no face palsy, no dysarthria CN's II- XI intact bilaterally and moves all extremities Psychiatric: A+Ox3, euthymic affect Assessment/plan Epigastric pain Possible duodenal ulcer disease Possible acute on chronic pancreatitis Continue IV fluids LR at 100 cc/h Pain control IV Protonix twice daily N.p.o. from midnight for endoscopy tomorrow a.m. Full progress note to follow tomorrow Please note the above document was generated using voice recognition software. It may contain grammatical, syntax or spelling errors. Any formal questions or concerns about the content, text or information contained within the body of this dictation should be directly addressed to the provider for clarification
[2024-03-29] MEDS: LACTATED RINGER'S 1,000 ML IV SCH (17:07)
[2024-03-29] MEDS: LOSARTAN POTASSIUM 25 MG TAB PO SCH (20:05)
[2024-03-29] MEDS: PANTOprazole 40 MG in SYRINGE 0 ML IV SCH (20:06)
[2024-03-29] MEDS: TICAGRELOR 90 MG TAB PO SCH (20:06)
[2024-03-30 06:17] LABS: Basophils # (auto) 0.05 K/uL (0.00-0.20); Basophils % (auto) 0.5 %; Eosinophils # (auto) 0.14 K/uL (0.00-0.50); Eosinophils % (auto) 1.3 %; Hematocrit (blood only) 42.3 % (42.0-52.0); Hemoglobin 14.7 g/dl (14.0-18.0); Immature Granulocytes # (auto) 0.05 K/uL (0.01-0.20); Immature Granulocytes % (auto) 0.5 %; Lymphocytes # (auto) 1.51 K/uL (1.20-3.40); Mean Corpuscular Hgb Conc 34.8 g/dL (32.0-36.0); Mean Corpuscular Volume 95.1 fL (80.0-100.0); Mean Platelet Volume 8.8 fL (9.4-12.4); Monocytes # (auto) 0.71 K/uL (0.11-0.59); Monocytes % (auto) 6.6 %; Neutrophils # (auto) 8.35 K/uL (1.40-6.50); Neutrophils % (auto) 77.1 %; Platelet Count 328 K/uL (130-400); RDW Coefficient of Variation 13.7 % (11.5-14.5); RDW Standard Deviation 47.9 fL (36.4-46.3); Red Blood Count 4.45 M/uL (4.70-6.10); White Blood Count 10.81 K/ul (4.8-10.8)
[2024-03-30 06:34] LABS: BUN Creatinine Ratio 19.3 (10-20); Calcium 9.3 mg/dl (8.6-10.3); Creatinine Clr Calc Pharmacy 80.8 ml/min; Est GFR (African American) 112.9 ml/min; Est GFR (Non-African American) 97.4 ml/min; Potassium 4.4 mmol/L (3.5-5.1)
[2024-03-30] MEDS: SPIRONOLACTONE 12.5 MG TAB PO SCH (08:05)
--- NOTE | 2024-03-30 08:48 | Gastroenterology Progress Note ---
Date of Service March 30, 2024 Assessment & Plan (1) Abdominal pain, acute: Plan: 53 year old male with history of [place] x 2, PCI stents placements currently on ASA and Brilinta who was admitted with abd pain, recurrent pancreatitis following with [facility], previous EUS & ERCPs with pancreatic stenting/stone who is admitted with unchanged upper abd pain, imaging showing wall thickening and inflammatory changes of the duodenum. DDX discussed: residual inflammatory changes recent pancreatitis vs PUD. NPO for EGD evaluation Please continue PPI for now We appreciate assistance in the management of any serological abnormality and corrections to include: hemoglobin >7, INR <2, platelets >50,000, potassium levels >3.5 but <5.3, and sodium levels within 5 points of the reference range prior to endoscopic evaluation. Thank you for allowing us to participate in the care of this patient. Please call with any acute changes, questions or concerns. Please see addendum below with additional recommendation from my supervising physician. Plan Abdominal pain somehow improved. EGD today. Admission and Anticipated Discharge Date Admission Date: March 29, 2024 Subjective Pt was seen and evaluated, chart reviewed. Remains NPO for EGD. Is on ASA and Brilinta. Abd pain is better controlled. No nausea, vomiting this AM. Review of Systems Review of Systems: All other findings negative except as noted in HPI. Physical Exam Constitutional: WD/WN, vitals as above Respiratory: normal respiratory effort, lungs clear to auscultation Cardiovascular: Rate/Rhythm: regular rate and regular rhythm Gastrointestinal (Abdomen): Percussion/Palpation: + abdomen tender and abdomen soft; no guarding and abdomen not rigid Skin: no rashes, warm and dry Results & Data Results & Data Vital Signs (Past 12 Hours) Vital Signs Temp Pulse BP Pulse Ox O2 Del Method 03/30/24 07:41 36.6 C 65 158/88 H 99 Room Air PG Care Time/CCT Total # of Minutes Spent Total Time Spent with Patient: Total time spent is greater than 50% in coordination of care (as documented) at patient's floor/unit and/or counseling patient: Coding Level of Care Code None Diagnoses Abdominal pain, acute R10.9
--- NOTE | 2024-03-30 10:14 | Anesthesiology Consultation ---
Date of Service March 30, 2024 Assessment & Plan Chart Review Chart Review: Acceptable Risk for Surgery and Patient NOT seen in Pre Admission Testing Consults Requested none ASA ASA3 Proposed Anesthesia Anesthesia Type: General Risk / Benefits Reviewed With: PT / POA / Parent / Guardian, Accepts Plan and Informed Consent Obtained History Surgery Operation Date: 03/30/24 16:30 Proposed Procedures p Esophagogastroduodenoscopy Alycia Togn MD Height/Weight Height: 5 ft 5 in Weight: 59.5 kg Allergies Allergy/AdvReac Type Severity Reaction Status Date / Time isosorbide [From Imdur] AdvReac Severe severe Verified 03/28/24 22:05 migraine Medications Home Medications Medication Instructions Recorded Confirmed Last Taken nitroglycerin 0.4 mg sublingual 0.4 mg sublingual .EVERY 5 MINUTES 10/07/18 03/28/24 07/27/22 tablet (Nitrostat) PRN Chest Pain dicyclomine 10 mg capsule 10 mg PO BID PRN Abdominal Pain 12/06/20 03/28/24 06/07/23 ezetimibe 10 mg tablet 10 mg PO QAM 12/06/20 03/28/24 03/28/24 famotidine 40 mg tablet 40 mg PO HS PRN Acid Reflux 12/06/20 03/28/24 02/29/24 magnesium oxide 400 mg PO QAM 12/06/20 03/28/24 03/28/24 pantoprazole 40 mg tablet,delayed 40 mg PO QAM 08/20/21 03/28/24 03/28/24 release aspirin 81 mg tablet,delayed 81 mg PO QAM #30 tabs 05/24/23 03/28/24 03/28/24 release rosuvastatin 40 mg tablet 40 mg PO QAM 06/07/23 03/28/24 03/28/24 spironolactone 25 mg tablet 12.5 mg (1/2 x 25 mg) PO QAM #15 06/08/23 03/28/24 03/28/24 tabs metoprolol succinate 25 mg 25 mg PO AMHS 07/27/23 03/28/24 03/28/24 08:00 tablet,extended release 24 hr ticagrelor 90 mg tablet (Brilinta) 90 mg PO AMHS 07/27/23 03/28/2403/28/24 08:00 sertraline 100 mg tablet 100 mg PO QAM 10/21/23 03/28/24 03/28/24 sucralfate 1 gram tablet 1 g PO ACHS PRN Stomach Upset 03/01/24 03/28/24 Unknown losartan 25 mg tablet 12.5 mg (1/2 x 25 mg) PO QPM #30 03/17/24 03/28/24 03/27/24 tabs Active Medications Generic Name Dose Route Start Last Admin Trade Name Kat PRN Reason Stop Dose Admin Ezetimibe 10 mg 03/29/24 09:00 03/30/24 08:05 Ezetimibe 10 Mg Tab PO 04/28/24 08:59 10 mg QAM ALYCIA Administration Pantoprazole Sodium 40 mg/ 10 mls @ 5 mls/min 03/29/24 21:00 03/30/24 09:59 Syringe IV 04/28/24 20:59 5 mls/min BID ALYCIA Administration Lactated Ringer's 1,000 mls @ 100 mls/hr 03/29/24 16:45 03/30/24 02:25 Lr IV 04/28/24 16:44 100 mls/hr .Q10H ALYCIA Administration Losartan Potassium 12.5 mg 03/29/24 21:00 03/29/24 20:05 Losartan Potassium 25 Mg Tab PO 04/28/24 20:59 12.5 mg QPM ALYCIA Administration Magnesium Oxide 400 mg 03/29/24 09:00 03/30/24 08:04 Magnesium Oxide 400 Mg Tab PO 04/28/24 08:59 400 mg QAM ALYCIA Administration Metoprolol Succinate 25 mg 03/29/24 09:00 03/30/24 08:04 Metoprolol Succ 25mg Ext Rel Tab PO 04/28/24 08:59 25 mg AMHS ALYCIA Administration Rosuvastatin Calcium 40 mg 03/29/24 09:00 03/30/24 08:00 Rosuvastatin Calcium 20 Mg Tab PO 04/28/24 08:59 40 mg QAM ALYCIA Administration Sertraline HCl 100 mg 03/29/24 09:00 03/30/24 08:03 Sertraline Hcl 100 Mg Tablet PO 04/28/24 08:59 100 mg QAM ALYCIA Administration Spironolactone 12.5 mg 03/30/24 09:00 03/30/24 08:05 Spironolactone 12.5 Mg Tab PO 04/29/24 08:59 12.5 mg QAM ALYCIA Administration Ticagrelor 90 mg 03/29/24 21:00 03/30/24 08:03 Ticagrelor 90 Mg Tab PO 04/28/24 20:59 90 mg AMHS ALYCIA Administration NPO Date Last Intake of Fluids: 03/28/24 Date Last Intake of Solids: 03/28/24 Past Medical History Medical History ST elevation myocardial infarction (STEMI) COVID-29 Oct 2021 Mobitz type 2 second degree atrioventricular block Tobacco abuse Splenic infarct Exercise / Class Metabolic Activity II 4-5 Yardwork/Stairs/Walk up hill Past Family History Family History Mother Gallbladder disease Sister Gallbladder disease Other Diabetes Stroke Denies family history of Pancreatic disease Past Surgical History Surgical History History of endoscopic retrograde cholangiopancreatography x2 (08/31, 09/30) History of vasectomy Past Anesthesia History No Hx of Anesthesia Complications and No Family Hx of Anesthesia Complications History of PONV No Hx of PONV and No Hx of Motion Sickness Social History Smoking Status: Current every day smoker tobacco type: cigarettes Smoking cigarettes per day: 1 pck/day Do You Dip or Chew Tobacco: No Hx Alcohol Use: No Hx Substance Use: No substance use type: does not use Physical Exam Vital Signs Last Vital Signs Temp 36.9 C 03/30/24 10:08 Pulse 57 L 03/30/24 10:08 Resp 16 03/30/24 10:08 BP 161/95 H 03/30/24 10:08 Pulse Ox 97 03/30/24 10:08 O2 Del Method Room Air 03/30/24 10:08 ENMT Mouth: no dentition abnormality Thyromental Distance: > or= 3.5 Finger Breadths Mallampati Class: II Neck normal visual inspection Respiratory normal respiratory effort Auscultation: lungs clear to auscultation bilaterally Cardiovascular Rate/Rhythm: regular rate and regular rhythm Psychiatric Orientation: alert Testing Laboratory Results 03/30/24 05:44 03/30/24 05:44 PT 10.3 Seconds (9.0-12.0) 03/28/24 21:20 INR 0.9 (0.9-1.1) 03/28/24 21:20 APTT 24 Seconds (21-31) 03/28/24 21:20
--- NOTE | 2024-03-30 12:17 | GI REPORT ---
[facility] Patient: SAMUEL RIDER : 1970 Sex at : Male Age: 53 Years Procedure: Upper GI endoscopy Date: 03/30/2024 Attending Physician: Kelby Tong MD Referring MD: Referred Self Indications: - Epigastric abdominal pain - Abnormal CT of the GI tract - CT scan showing edema of the proximal duodenum. Medications: - Monitored Anesthesia Care Complications: - No immediate complications. Estimated Blood Loss: - Estimated blood loss: none. Procedure: - The egd scope was introduced through the mouth and advanced to the second part of the duodenum. - The upper GI endoscopy was accomplished without difficulty. - The patient tolerated the procedure well. Findings: - The Z-line was irregular and was found 32 cm from the incisors. - The examined esophagus was normal. - A 3 cm hiatal hernia was present. - Mildly erythematous mucosa was found in the gastric body. This was biopsied with a cold forceps for histology. Otherwise the stomach was normal. Biopsies from the gastric antrum were obtained for Helicobacter pylori and for histology. - The examined duodenum was normal. Impression: - Z-line irregular, 32 cm from the incisors. - Normal esophagus. - 3 cm hiatal hernia. - Erythematous mucosa in the gastric body. Biopsied. - Otherwise the stomach was normal. Biopsies from the gastric antrum were obtained for Helicobacter pylori and for histology. - Normal examined duodenum. Recommendation: - Await pathology results. - Await pathology results. - Return to referring physician as previously scheduled. Procedure Code(s): - 68845, Esophagogastroduodenoscopy, flexible, transoral; with biopsy, single or multiple Diagnosis Code(s): - R10.13, Epigastric pain - R93.3, Abnormal findings on diagnostic imaging of other parts of digestive tract - K22.89, Other specified disease of esophagus - K44.9, Diaphragmatic hernia without obstruction or gangrene - K31.89, Other diseases of stomach and duodenum CPT(R) - 2023 copyright [employer]. All Rights Reserved. The CPT codes, CCI edits and ICD codes generated are intended as suggestions and were generated based on input data. These codes are preliminary and upon compensation intern review may be revised to meet current compliance and payer requirements. The provider is responsible for the final determination of appropriate codes, and modifiers. Kelby Tong M.D. This document has been electronically signed. Note Initiated:03/30/2024 Note Completed:03/30/2024 12:16 PM \\[id number]
--- NOTE | 2024-03-30 12:17 | Communication Note ---
Date of Service: March 30, 2024 Upper endoscopy showed small hiatal hernia, mild gastritis of the gastric body of questionable clinical significance. The duodenum was entirely normal. Endoscopic findings do not explain patient's symptoms. Awaiting gastric biopsies. If stable the patient can be discharged from GI standpoint.
[2024-03-30] MEDS: HYDROmorphone INJ 0.5 MG/0.5 ML SYR IV PRN (13:20)
--- NOTE | 2024-03-30 13:38 | Anesthesiology Progress Note ---
Date of Service March 30, 2024 Anesthesia Post Procedure Vital Signs Vital Signs: Temp Pulse Resp BP Pulse Ox O2 Del Method O2 Flow Rate 03/30/24 13:05 36.5 C 57 L 16 150/85 H 97 Room Air 03/30/24 12:43 62 16 139/90 96 Room Air 03/30/24 12:28 71 16 132/83 96 Room Air 03/30/24 12:13 80 16 102/63 93 Nasal Cannula 2 03/30/24 10:08 36.9 C 57 L 16 161/95 H 97 Room Air 03/30/24 07:41 Room Air 03/30/24 07:41 36.6 C 65 158/88 H 99 Room Air 03/29/24 19:49 36.8 C 71 20 156/78 H 95 Room Air 03/29/24 14:36 36.6 C 56 L 16 153/90 H 95 Room Air Pain Intensity Chest: Pain Intensity: 4 Abdomen: Pain Intensity: 5 Transfer of Care Handoff Completed per policy Notes Mental Status: alert / awake / arousable Patient Amnestic to Procedure: Yes Nausea / Vomiting: adequately controlled Pain: adequately controlled Airway Patency, RR, SpO2: stable & adequate BP & HR: stable & adequate Hydration State: stable & adequate Anesthetic Complications: no major complications apparent
[2024-03-30] MEDS: LIDOCAINE 2% 2 ML VIAL/AMP(20MG/ML) INFIL ONE (13:55)
[2024-03-30] MEDS: PROPOFOL IV EMULSION 10 MG/ML 20 ML VIAL IV ONE (13:55)
[2024-03-30] MEDS: PROMETHAZINE HCL 6.25 MG in SODIUM CHLORIDE 0.9% 50 ML IV PRN (14:10)
--- NOTE | 2024-03-30 14:12 | Hospitalist Progress Note ---
Date of Service March 30, 2024 Assessment & Plan (1) Epigastric abdominal pain: Plan Oc Cazares is a 53y/o M with medical history significant for chronic systolic heart failure (EF 35 to 40%, TTE 03/2024), premature CAD s/p stent (05/2023), PAF as per records, mild MR, history NSVT, HTN, hyperlipidemia, recurrent pancreatitis s/p cholecystectomy/ ERCP, Casanova's esophagus, anxiety/mood disorder and ongoing tobacco abuse who presented to the ED with acute epigastric pain and was found to have possible duodenal ulcer disease on admitting abdomen/pelvis CT. Patient had recent confinement 03/15-03/17 for acute on chronic pancreatitis, bradycardia. Epigastric Abdominal Pain Possible Duodenal Ulcer Disease Hx of Chronic Pancreatitis Admitting Imaging * CT of abdomen/pelvis: "Wall thickening and surrounding inflammation of the duodenum, correlate for duodenal ulcer disease. Need for upper GI endoscopy should be determined clinically." * Chest CTA showed no acute findings in the visualized arteries. Chest x-ray displayed cardiomegaly, but no active disease. GI ultimately consulted and saw pt on 03/29: Recommended IV PPI therapy Can convert IV PPI to po PPI BID x 1 month --> If clinically stable w/ stable Hgb and no BUN elevation. Plan set for pt to undergo upper endoscopy to r/o duodenal ulcer , 03/30: -Patient underwent EGD w/ GI this morning --> Showed small hiatal hernia, mild gastritis of the gastric body of questionable clinical significance, duodenum was entirely normal -Per GI, endoscopic findings do NOT explain his presenting sx's -Gastric biopsies are pending, will follow -Pt okay to d/c from GI's standpoint -WBC 10.81 today -Hgb holding steady ~14-15 -Pain control -Pt has chronic pancreatitis pain at baseline -Pain management consulted -Continue IV Protonix BID -Continue IVF --> LR at 100cc/hr, Q10H Hx of Chronic Systolic Heart Failure Paroxysmal Atrial Fibrillation -Continue metoprolol succinate w/ hold parameters, aspirin and Brilinta. HTN: Stable, SBP holding in the ~130s-160s --> Continue losartan, metoprolol succinate and spironolactone. Hx of Premature CAD S/P Stent Hyperlipidemia Chronic, stable - Continue rosuvastatin, ezetimibe Hx of Casanova's Esophagus: Chronic, stable on current regimen; continue. Hx of Hyperglycemia: Glucose 106 today, likely prediabetic given chart review. Hgb A1c 6.2 as of 10/2023 - no need to repeat Hgb A1c at this time. Tobacco Use Disorder: Smoking cessation encouraged; No need for nicotine patch at this time per pt - will readdress tomorrow. Hx of Depression: Chronic, stable - Continue sertraline, PRN Ativan DVT Prophylaxis: SCDs - For now Code Status: DNR/DNI - No Resuscitation PCP: Wade Bragg MD Dispo: Plan for discharge when patient is medically stable. Patient seen in collaboration with Dr. Santos. Please see addendum. I spent a total of 45 minutes coordinating, documenting, and providing care for this patient excluding time spent in the performance of separately billed services. This included personally reviewing all current laboratories and imaging studies, medical reconciliation, outpatient chart review and discussion with specialists. Contacted HIM to obtain medical records from [facility], as patient was there last week and told of ? potential pancreatic CA per admitting H&P. HIM unable to obtain medical records from [facility]. * Will speak to the patient regarding if he can get ahold of those records and have them scanned into our system for reference. Could NOT find this encounter via Care Everywhere on [facility]. Admission and Anticipated Discharge Date Admission Date: March 29, 2024 Supervising Physician Co-Signing Physician Notes Patient seen and examined independently. Discussed with above provider. Patient underwent EGD; found to have 3 cm hiatal hernia. Mild erythematous mucosa within the gastric body. No duodenal ulcer noted. Patient continues to have severe abdominal pain; likely secondary to chronic pancreatitis. Will consult pain management. Also contacted HIM to obtain medical records from his recent hospitalization in [place]. I have reviewed the advanced practitioner's documentation, and I agree with, and take responsibility for the plan of care I spent a total of 30 minutes coordinating, documenting, and providing care for this patient excluding time spent in the performance of separately billed services. All of the aforementioned completed while collaborating with the assigned advanced practitioner for a full treatment plan Subjective Patient seen at bedside in room W357-2. Patient states his epigastric pain is well-controlled on the current pain regimen. Offers no complaints at this time. Aware of the plan moving forward so far. Review of Systems Review of Systems: At least ten systems reviewed and negative, except as noted in the HPI. Physical Exam Physical Exam: General: WD/WN, vitals as above, NAD, sitting in chair at bedside, pleasant, conversing appropriately. A+Ox3, euthymic affect. HEENT: Normocephalic, atraumatic. Normal inspection, PERRL, conjunctivae normal, anicteric sclerae. External ear and nose normal, oropharynx normal. Respiratory: Normal respiratory effort, lungs clear to auscultation, no wheeze, rales, rhonchi. No accessory muscle use. Cardiovascular: Regular rate, rhythm, no murmur, normal peripheral pulses, no BLE edema. Vessels: No JVD. Abdomen/GI: Normal bowel sounds, tenderness in epigastric region. Extremities/Musculoskeletal: No cyanosis or clubbing, extremities motor strength 5/5, moves all extremities. Neurologic: PERRL, EOMI, accommodation nl, no face palsy, no dysarthria, CN's II-XI not formally tested but appear grossly intact bilaterally. Skin: No rashes, normal color, warm/dry, normal turgor. Results & Data Results & Data Vital Signs (Past 12 Hours) Vital Signs Temp Pulse Resp BP Pulse Ox O2 Del Method O2 Flow Rate 03/30/24 13:05 36.5 C 57 L 16 150/85 H 97 Room Air 03/30/24 12:43 62 16 139/90 96 Room Air 03/30/24 12:28 71 16 132/83 96 Room Air 03/30/24 12:13 80 16 102/63 93 Nasal Cannula 2 03/30/24 10:08 36.9 C 57 L 16 161/95 H 97 Room Air 03/30/24 07:41 Room Air 03/30/24 07:41 36.6 C 65 158/88 H 99 Room Air Laboratory Results Short CBC 03/30/24 Range/Units 05:44 WBC 10.81 H (4.8-10.8) K/ul Hgb 14.7 (14.0-18.0) g/dl Hct 42.3 (42.0-52.0) % Plt Count 328 (130-400) K/uL BMP 03/30/24 05:44 Sodium 134 L Potassium 4.4 Chloride 100 Carbon Dioxide 25 BUN 17 Creatinine 0.88 Glucose 106 H Calcium 9.3 Diagnostic Findings Chest X-Ray 03/28/24 21:23 SINGLE VIEW CHEST CLINICAL HISTORY: Atypical chest pain FINDINGS: An AP, portable, upright chest radiograph is compared to study dated 03/15/2024. The heart is enlarged noting atherosclerotic calcification of the thoracic aorta. The pulmonary vasculature is noncongested. There is mild bibasilar scarring/atelectasis. The lungs and pleural spaces are otherwise clear. No pneumothorax is seen. The bony thorax is grossly intact. IMPRESSION: Cardiomegaly with no active disease in the chest. ACT 112: Negative or not required by law. Electronically signed by: Angel Martinez M.D. 03/29/2024 6:56 AM Abdomen/Pelvis CT 03/28/24 21:54 Exam(s): CT ABDOMEN + PELVIS With Contrast IV Amt: 120 ML OPTIRAY 320 EXAM: CT Abdomen and Pelvis With Intravenous Contrast CLINICAL HISTORY: Reason for exam: upper abd pain, hx pancreatitis. TECHNIQUE: Axial computed tomography images of the abdomen and pelvis with intravenous contrast. CTDI is 39.43 mGy and DLP is 1034.45 mGy-cm. Automated exposure control was utilized for the study. A dose lowering technique was utilized adhering to the principles of ALARA. CONTRAST: Patient received 120 ML OPTIRAY 320 of IV contrast COMPARISON: CT abdomen and pelvis 03/15/2024. FINDINGS: Lung bases: Unremarkable. No mass. No consolidation. ABDOMEN: Liver: Hepatic steatosis. Gallbladder and bile ducts: Cholecystectomy. No ductal dilation. Pancreas: Unremarkable. No mass. No ductal dilation. Spleen: Unremarkable. No splenomegaly. Adrenals: Unremarkable. No mass. Kidneys and ureters: No hydronephrosis or delayed nephrogram. Right renal cyst measures 1.4 cm. Stomach and bowel: Wall thickening and surrounding inflammation of the duodenum, correlate for duodenal ulcer disease. Need for upper GI endoscopy should be determined clinically. Diverticulosis, without acute diverticulitis. No small bowel obstruction. No free intraperitoneal air. PELVIS: Appendix: No findings to suggest acute appendicitis. Bladder: Decompressed urinary bladder. Reproductive: Unremarkable as visualized. ABDOMEN and PELVIS: Intraperitoneal space: Unremarkable. No free air. No significant fluid collection. Bones/joints: Degenerative changes of the spine. No acute fracture. No dislocation. Soft tissues: Unremarkable. Vasculature: Atherosclerotic changes of the aorta. No abdominal aortic aneurysm. Lymph nodes: Unremarkable. No enlarged lymph nodes. IMPRESSION: Wall thickening and surrounding inflammation of the duodenum, correlate for duodenal ulcer disease. Need for upper GI endoscopy should be determined clinically. Electronically signed by: Regan Richard MD 03/29/24 00:49 AM Chest CTA 03/28/24 21:54 Exam(s): CTA CHEST IV Amt: 120 ML OPTIRAY 320 EXAM: CT Angiography Chest With Intravenous Contrast CLINICAL HISTORY: Reason for exam: PE. TECHNIQUE: Axial computed tomographic angiography images of the chest with intravenous contrast. CTDI is 39.43 mGy and DLP is 1034.45 mGy-cm. Automated exposure control was utilized for the study. A dose lowering technique was utilized adhering to the principles of ALARA. MIP reconstructed images were created and reviewed. COMPARISON: No relevant prior studies available. FINDINGS: Pulmonary arteries: Unremarkable. No pulmonary embolism. Aorta: No acute findings. No thoracic aortic aneurysm. Lungs: Unremarkable. No mass. No consolidation. Pleural space: Unremarkable. No significant effusion. No pneumothorax. Heart: Unremarkable. No cardiomegaly. No significant pericardial effusion. No evidence of RV dysfunction. Bones/joints: No acute fracture. No dislocation. Soft tissues: Unremarkable. Lymph nodes: Unremarkable. No enlarged lymph nodes. Gallbladder and bile ducts: Cholecystectomy clips. IMPRESSION: No acute findings in the visualized arteries of the chest. Electronically signed by: Regan Richard MD 03/28/24 23:56 PM Medications Administered Ezetimibe (Ezetimibe 10 Mg Tab) 10 mg PO QAM [facility] Stop: 04/28/24 08:59 Last Admin: 03/30/24 08:05 Dose: 10 mg Documented By: Admin: 03/29/24 08:21 Dose: 10 mg Documented By: LAVELL Hydromorphone HCl (Hydromorphone Inj 0.5 Mg/0.5 Ml Syr) 0.5 mg IV Q3H PRN PRN Reason: Severe Pain (Scale 7, 8, 9,10) Stop: 04/12/24 11:45 Last Admin: 03/30/24 13:20 Dose: 0.5 mg Documented By: BERNY Promethazine HCl 6.25 mg/ (Sodium Chloride) 50.25 mls @ 201 mls/hr IV Q6H PRN PRN Reason: Nausea And Vomiting Stop: 04/28/24 01:36 Last Admin: 03/30/24 14:10 Dose: 201 mls/hr Documented By: JON Pantoprazole Sodium 40 mg/ (Syringe) 10 mls @ 5 mls/min IV BID ALYCIA Stop: 04/28/24 20:59 Last Admin: 03/30/24 09:59 Dose: 5 mls/min Documented By: Admin: 03/29/24 20:06 Dose: 5 mls/min Documented By: MARIBEL Lactated Ringer's (Lr) 1,000 mls @ 100 mls/hr IV .Q10H [facility] Stop: 04/28/24 16:44 Last Admin: 03/30/24 13:18 Dose: 100 mls/hr Documented By: Infusion: 03/30/24 10:59 Dose: Infused Documented By: Admin: 03/30/24 02:25 Dose: 100 mls/hr Documented By: Infusion: 03/30/24 02:25 Dose: Infused Documented By: Admin: 03/29/24 17:07 Dose: 100 mls/hr Documented By: PEPITO Losartan Potassium (Losartan Potassium 25 Mg Tab) 12.5 mg PO QPM [facility] Stop: 04/28/24 20:59 Last Admin: 03/29/24 20:05 Dose: 12.5 mg Documented By: MARIBEL Magnesium Oxide (Magnesium Oxide 400 Mg Tab) 400 mg PO QAM [facility] Stop: 04/28/24 08:59 Last Admin: 03/30/24 08:04 Dose: 400 mg Documented By: Admin: 03/29/24 08:21 Dose: 400 mg Documented By: LAVELL Metoprolol Succinate (Metoprolol Succ 25mg Ext Rel Tab) 25 mg PO AMHS [facility] Stop: 04/28/24 08:59 Last Admin: 03/30/24 08:04 Dose: 25 mg Documented By: Admin: 03/29/24 20:05 Dose: 25 mg Documented By: Admin: 03/29/24 08:21 Dose: 25 mg Documented By: LAVELL Rosuvastatin Calcium (Rosuvastatin Calcium 20 Mg Tab) 40 mg PO QAM [facility] Stop: 04/28/24 08:59 Last Admin: 03/30/24 08:00 Dose: 40 mg Documented By: Admin: 03/29/24 08:22 Dose: 40 mg Documented By: LAVELL Sertraline HCl (Sertraline Hcl 100 Mg Tablet) [facility] Stop: 04/28/24 08:59 Last Admin: 03/30/24 08:03 Dose: 100 mg Documented By: Admin: 03/29/24 08:22 Dose: 100 mg Documented By: LAVELL Spironolactone (Spironolactone 12.5 Mg Tab) [facility] [place] Stop: 04/29/24 08:59 Last Admin: 03/30/24 08:05 Dose: 12.5 mg Documented By: BERNY Ticagrelor (Ticagrelor 90 Mg Tab) 90 mg PO [facility] Stop: 04/28/24 20:59 Last Admin: 03/30/24 08:03 Dose: 90 mg Documented By: Admin: 03/29/24 20:06 Dose: 90 mg Documented By: MARIBEL Discontinued Medications Hydromorphone HCl (Hydromorphone Inj 0.5 Mg/0.5 Ml Syr) 0.5 mg IV Q15M PRN PRN Reason: Pain Stop: 04/11/24 23:02 Last Admin: 03/29/24 00:44 Dose: 0.5 mg Documented By: Admin: 03/28/24 23:22 Dose: 0.5 mg Documented By: KLAUS Hydromorphone HCl (Hydromorphone Inj 0.5 Mg/0.5 Ml Syr) 0.5 mg IV Q3H PRN PRN Reason: Pain Stop: 04/12/24 11:45 Last Admin: 03/30/24 01:09 Dose: 0.5 mg Documented By: Admin: 03/29/24 20:04 Dose: 0.5 mg Documented By: Admin: 03/29/24 17:03 Dose: 0.5 mg Documented By: Admin: 03/29/24 12:40 Dose: 0.5 mg Documented By: PEPITO Famotidine (Pepcid 20mg Iv Push) 20 mg in 5 mls @ 2.5 mls/min IV NOW STA Stop: 03/28/24 21:55 Last Admin: 03/28/24 22:03 Dose: 2.5 mls/min Documented By: KLAUS Pantoprazole Sodium 80 mg/ (Dextrose) 120 mls @ 480 mls/hr IV ONE STA Stop: 03/29/24 01:06 Last Infusion: 03/29/24 01:50 Dose: Infused Documented By: Admin: 03/29/24 01:27 Dose: 480 mls/hr Documented By: ASIF Potassium Chloride/Sodium Chloride (Normal Saline W/20 Meq Kcl) 20 meq in 1,000 mls @ 50 mls/hr IV .Q20H ONE; Protocol Stop: 03/29/24 21:37 Last Infusion: 03/29/24 17:07 Dose: Infused Documented By: Admin: 03/29/24 01:47 Dose: 50 mls/hr Documented By: ASIF Ioversol (Optiray 320 125ml) 120 ml IV ONCE ONE Stop: 03/28/24 22:40 Last Admin: 03/28/24 22:39 Dose: 120 ml Documented By: NELSON Lidocaine HCl (Lidocaine 2% 2 Ml Vial/Amp(20mg/Ml)) Confirm Administered Dose 4 ml INFIL .STK-MED ONE Stop: 03/30/24 12:06 Last Admin: 03/30/24 13:55 Dose: Not Given Documented By: JON Morphine Sulfate (Morphine Sulfate 4 Mg/Ml 1 Ml Carp\\Vial) 4 mg IV NOW STA Stop: 03/28/24 21:55 Last Admin: 03/28/24 22:03 Dose: 4 mg Documented By: KLAUS Morphine Sulfate (Morphine Sulfate 2 Mg/Ml Carp) 2 mg IV Q4H PRN PRN Reason: Pain Stop: 04/12/24 01:43 Last Admin: 03/29/24 11:30 Dose: 2 mg Documented By: Admin: 03/29/24 07:17 Dose: 2 mg Documented By: Admin: 03/29/24 02:37 Dose: 2 mg Documented By: PRATIK Ondansetron HCl (Ondansetron Inj 2 Mg/Ml 2 Ml Vial) 4 mg IV NOW STA Stop: 03/28/24 21:55 Last Admin: 03/28/24 22:03 Dose: 4 mg Documented By: KLAUS Oxycodone HCl (Oxycodone Hcl Ir 5 Mg Tab (Immediate Release)) 5 mg PO Q4H PRN PRN Reason: Pain Stop: 04/12/24 01:36 Last Admin: 03/30/24 05:14 Dose: 5 mg Documented By: Admin: 03/29/24 22:58 Dose: 5 mg Documented By: Admin: 03/29/24 18:32 Dose: 5 mg Documented By: Admin: 03/29/24 14:02 Dose: 5 mg Documented By: PEPITO Pantoprazole Sodium (Pantoprazole 40 Mg Tab) 40 mg PO BID ALYCIA Stop: 04/28/24 08:59 Last Admin: 03/29/24 08:22 Dose: 40 mg Documented By: LAVELL Propofol (Propofol Iv Emulsion 10 Mg/Ml 20 Ml Vial) Confirm Administered Dose 200 mg IV .STK-MED ONE Stop: 03/30/24 12:06 Last Admin: 03/30/24 13:55 Dose: Not Given Documented By: JON
[2024-03-30] MEDS: oxyCODONE HCL IR 5 MG TAB (IMMEDIATE RELEASE) PO PRN (17:16)
[2024-03-31 08:34] LABS: Basophils # (auto) 0.04 K/uL (0.00-0.20); Basophils % (auto) 0.4 %; Eosinophils # (auto) 0.17 K/uL (0.00-0.50); Eosinophils % (auto) 1.8 %; Hematocrit (blood only) 40.6 % (42.0-52.0); Hemoglobin 14.1 g/dl (14.0-18.0); Immature Granulocytes # (auto) 0.04 K/uL (0.01-0.20); Immature Granulocytes % (auto) 0.4 %; Lymphocytes # (auto) 1.48 K/uL (1.20-3.40); Lymphocytes % (auto) 15.3 %; Mean Corpuscular Hemoglobin 32.9 pg (25.0-34.0); Mean Corpuscular Hgb Conc 34.7 g/dL (32.0-36.0); Mean Corpuscular Volume 94.6 fL (80.0-100.0); Mean Platelet Volume 8.8 fL (9.4-12.4); Monocytes # (auto) 0.61 K/uL (0.11-0.59); Monocytes % (auto) 6.3 %; Neutrophils # (auto) 7.33 K/uL (1.40-6.50); Neutrophils % (auto) 75.8 %; Platelet Count 295 K/uL (130-400); RDW Coefficient of Variation 13.8 % (11.5-14.5); RDW Standard Deviation 47.4 fL (36.4-46.3); Red Blood Count 4.29 M/uL (4.70-6.10); White Blood Count 9.67 K/ul (4.8-10.8)
[2024-03-31 08:44] LABS: BUN Creatinine Ratio 13.1 (10-20); Calcium 9.3 mg/dl (8.6-10.3); Creatinine Clr Calc Pharmacy 84.6 ml/min; Est GFR (Non-African American) 99.3 ml/min
--- NOTE | 2024-03-31 12:36 | Pain Management Consultation ---
Date of Consultation March 31, 2024 Assessment & Plan (1) Epigastric abdominal pain: (2) Recurrent pancreatitis: Plan Patient does have recurrent pancreatitis. He does typically try to treat acute on chronic episodes at home with remaining n.p.o. and gradually introducing solids back into his diet and with the use of Tylenol. If the pain is not controlled at home he comes to the hospital and with the aid of opioid medications the pain does improve. No changes were made to his current medication regimen. He will remain on oxycodone 5 mg every 4 hours and have IV Dilaudid if needed for breakthrough pain. He is not a candidate for any interventional procedures. Nothing further to offer the patient at this time. Please contact with any questions or concerns. History of Present Illness Attending Physician: Lukas Santos MD History of Present Illness This is a 53-year-old male that been admitted to [facility] with acute on chronic pancreatitis. Pain is located in the epigastric region and described as a constant burning sensation. When the pain is severe it becomes a sharp jabbing into the back. Pain is aggravated with food intake. This afternoon he tried eating solid foods and the pain significantly worsened. Currently he is taking oxycodone 5 mg every 4 hours if needed and has IV Dilaudid 0.5 mg every 3 hours ordered. He states that the medication regimen is adequately controlling his pain and he denies any complaints. No fevers, chills, nausea, vomiting, flank pain, diarrhea. Case discussed with Dr. Vo Allergies Allergy/AdvReac Type Severity Reaction Status Date / Time isosorbide [From Imdur] AdvReac Severe severe Verified 03/28/24 22:05 migraine Home Medications Medication Instructions Recorded Confirmed Type nitroglycerin 0.4 mg sublingual 0.4 mg sublingual .EVERY 5 MINUTES 10/07/18 03/28/24 History tablet (Nitrostat) PRN Chest Pain dicyclomine 10 mg capsule 10 mg PO BID PRN Abdominal Pain 12/06/20 03/28/24 History ezetimibe 10 mg tablet 10 mg PO QAM 12/06/20 03/28/24 History famotidine 40 mg tablet 40 mg PO HS PRN Acid Reflux 12/06/20 03/28/24 History magnesium oxide 400 mg PO QAM 12/06/20 03/28/24 History pantoprazole 40 mg tablet,delayed 40 mg PO QAM 08/20/21 03/28/24 History release aspirin 81 mg tablet,delayed 81 mg PO QAM #30 tabs 05/24/23 03/28/24 Rx release rosuvastatin 40 mg tablet 40 mg PO QAM 06/07/23 03/28/24 History spironolactone 25 mg tablet 12.5 mg (1/2 x 25 mg) PO QAM #15 06/08/23 03/28/24 Rx tabs metoprolol succinate 25 mg 25 mg PO AMHS 07/27/23 03/28/24 History tablet,extended release 24 hr ticagrelor 90 mg tablet (Brilinta) 90 mg PO AMHS 07/27/23 03/28/24 History sertraline 100 mg tablet 100 mg PO QAM 10/21/23 03/28/24 History sucralfate 1 gram tablet 1 g PO ACHS PRN Stomach Upset 03/01/24 03/28/24 History losartan 25 mg tablet 12.5 mg (1/2 x 25 mg) PO QPM #30 03/17/24 03/28/24 Rx tabs Patient History Medical History ST elevation myocardial infarction (STEMI) COVID-29 Oct 2021 Mobitz type 2 second degree atrioventricular block Tobacco abuse Splenic infarct Surgical History History of endoscopic retrograde cholangiopancreatography x2 (08/31, 09/30) History of vasectomy Family History Mother Gallbladder disease Sister Gallbladder disease Other Diabetes Stroke Denies family history of Pancreatic disease Social History Smoking Status: Current every day smoker Tobacco Type: Cigarettes Cigarettes Per Day: 1 pck/day; Second Hand Exposure: No; Do You Dip or Chew Tobacco: No; Hx Alcohol Use: No Hx Substance Use: No Preferred Language: Niuean Communication Ability: Effective [employer] Super[employer] Required: No Beliefs That Will Affect Care: None marital status: Single Current Living Situation: Alone current occupational status: employed Feels Safe at Home: Yes Safety Concerns: Feels Safe At This Time Assistive Devices: None Physical Exam Physical Exam: GENERAL: This is a 53 year old male in no acute distress. HEAD/FACE: Normocephalic and atraumatic. EYES: No drainage or conjunctival injection. ENT: Nose without bleeding or discharge. Oral mucosa moist. NECK: Full ROM without apparent pain. No swelling or masses noted. RESPIRATORY: Patient with unlabored breathing. No signs of respiratory distress. CHEST/AXILLA: Chest movement symmetrical. No deformities noted. CARDIOVASCULAR: Patients heart rate is regular, with pulse rate as documented. No edema noted. ABDOMEN/GI: No distension. + epigastric tenderness. No trigger points noted. BACK: Moves without difficulty SKIN: [place], warm and dry. No rash noted. MS/EXTREMITY: No swelling, no deformities. Moving extremities appropriately. NEURO: Alert and appears oriented. Speech is fluent. Cranial Nerves are grossly intact. PSYCH: Alert, pleasant, affect is calm
[2024-03-31] MEDS: ONDANSETRON INJ 2 MG/ML 2 ML VIAL IV STA (13:13)
--- NOTE | 2024-03-31 13:20 | Hospitalist Progress Note ---
Date of Service March 31, 2024 Assessment & Plan (1) Epigastric abdominal pain: Plan Oc Cazares is a 53y/o M with medical history significant for chronic systolic heart failure (EF 35 to 40%, TTE 03/2024), premature CAD s/p stent (05/2023), PAF as per records, mild MR, history NSVT, HTN, hyperlipidemia, recurrent pancreatitis s/p cholecystectomy/ ERCP, Casanova's esophagus, anxiety/mood disorder and ongoing tobacco abuse who presented to the ED with acute epigastric pain and was found to have possible duodenal ulcer disease on admitting abdomen/pelvis CT. Patient had recent confinement 03/15-03/17 for acute on chronic pancreatitis, bradycardia. Epigastric Abdominal Pain Possible Duodenal Ulcer Disease Hx of Chronic Pancreatitis Admitting Imaging * CT of abdomen/pelvis: "Wall thickening and surrounding inflammation of the duodenum, correlate for duodenal ulcer disease. Need for upper GI endoscopy should be determined clinically." * Chest CTA showed no acute findings in the visualized arteries. Chest x-ray displayed cardiomegaly, but no active disease. GI ultimately consulted and saw pt on 03/29: Recommended IV PPI therapy Can convert IV PPI to po PPI BID x 1 month --> If clinically stable w/ stable Hgb and no BUN elevation. Plan set for pt to undergo upper endoscopy to r/o duodenal ulcer , 03/30: -Patient underwent EGD w/ GI this morning --> Showed small hiatal hernia, mild gastritis of the gastric body of questionable clinical significance, duodenum was entirely normal -Per GI, endoscopic findings do NOT explain his presenting sx's -Gastric biopsies are pending, will follow -Pt okay to d/c from GI's standpoint -WBC 10.81 today -Hgb holding steady ~14-15 -Pain control -Pt has chronic pancreatitis pain at baseline -Pain management consulted -Continue IV Protonix BID -Continue IVF --> LR at 100cc/hr, Q10H Wednesday, 03/31: -Admitted as inpatient -Gastric bx's pending, will follow -Pt OK for d/c from GI's standpoint -WBC normalized at 9.67 today -Hgb holding steady at 14.1 -Continue pain control, adjust as needed -Continue IV Protonix BID -IVF stopped today -Pain management saw pt today --> Pt not a candidate for any interventional procedures, nothing further to offer pt at this time from pain management's standpoint Concern for Pancreatic Mass Pt admitted at [facility] last week Was told of ? possible pancreatic cancer Was able to obtain records from that stay CTAP from that visit showed the following: "The possibility of developing pancreatitis to be considered and the possibility of possible infiltrating mass in the pancreatic head not excluded, related to the heterogeneity." Spoke w/ HAKAN Melendrez from GI about that imaging finding --> No need for additional imaging at this time; Pt will need EUS w/ [facility] in the outpatient setting upon d/c Pt aware of plan moving forward Will scan [facility] records into his [facility] chart and [employer] chart Hx of Chronic Systolic Heart Failure Paroxysmal Atrial Fibrillation Continue metoprolol succinate w/ hold parameters, aspirin and Brilinta. HTN: Stable, SBP holding in the ~140s --> Continue losartan, metoprolol succinate and spironolactone. Hx of Premature CAD S/P Stent Hyperlipidemia Chronic, stable - Continue rosuvastatin, ezetimibe Hx of Casanova's Esophagus: Chronic, stable on current regimen; continue. Hx of Hyperglycemia: Glucose 106 today, likely prediabetic given chart review. Hgb A1c 6.2 as of 10/2023 - no need to repeat Hgb A1c at this time. Tobacco Use Disorder: Smoking cessation encouraged; No need for nicotine patch at this time per pt - will continue to readdress. Hx of Depression: Chronic, stable - Continue sertraline, PRN Ativan DVT Prophylaxis: SCDs - For now Code Status: DNR/DNI - No Resuscitation PCP: Wade Bragg MD Dispo: Plan for discharge when patient is medically stable. Will need EUS as an outpatient w/ [facility] following discharge - F/u imaging needed for concern of potential pancreatic mass. Patient seen in collaboration with Dr. Santos. Please see addendum. I spent a total of 45 minutes coordinating, documenting, and providing care for this patient excluding time spent in the performance of separately billed services. This included personally reviewing all current laboratories and imaging studies, medical reconciliation, outpatient chart review and discussion with specialists. This chart was completed in part utilizing Speech Voice Recognition Software. Grammatical errors, random word insertions, pronoun errors, and incomplete sentences are an occasional consequence of this system due to software li mitations, ambient noise, and hardware issues. Any formal questions or concerns about the content, text, or information contained within the body of this dictation should be directly addressed to the provider for clarification. Admission and Anticipated Discharge Date Admission Date: March 31, 2024 Supervising Physician Co-Signing Physician Notes Patient seen and examined independently. Discussed with over provider. Patient reported abdominal pain after breakfast. He is requiring frequent IV and oral pain medication. Pain management consulted; no additional recommendation at this time Continue low-fat diet; pain control with oral and IV opioids. Possible discharge in next few days after pain is better controlled. I have reviewed the advanced practitioner's documentation, and I agree with, and take responsibility for the plan of care I spent a total of 25 minutes coordinating, documenting, and providing care for this patient excluding time spent in the performance of separately billed services. All of the aforementioned completed while collaborating with the assigned advanced practitioner for a full treatment plan Subjective Patient seen at bedside in room W357-2. Patient currently reporting 5/10 abdominal pain. Reports pain in epigastric and lower abdominal regions that radiates to his back. Was able to get his records from previous hospitalization at [facility] last week. Patient denies any N/V, fevers, body aches/chills, SOB or chest pain. Review of Systems Review of Systems: At least ten systems reviewed and negative, except as noted in the HPI. Physical Exam Physical Exam: General: WD/WN, vitals as above, NAD, sitting up in bed, pleasant, conversing appropriately. A+Ox3, euthymic affect. HEENT: Normocephalic, atraumatic. Normal inspection, PERRL, conjunctivae normal, anicteric sclerae. External ear and nose normal, oropharynx normal. Respiratory: Normal respiratory effort, lungs clear to auscultation, no wheeze, rales, rhonchi. No accessory muscle use. Cardiovascular: Regular rate, rhythm, no murmur, normal peripheral pulses, no BLE edema. Vessels: No JVD. Abdomen/GI: Normal bowel sounds, tenderness in epigastric and lower abdominal regions. Extremities/Musculoskeletal: No cyanosis or clubbing, extremities motor strength 5/5, moves all extremities. Neurologic: PERRL, EOMI, accommodation nl, no face palsy, no dysarthria, CN's II-XI not formally tested but appear grossly intact bilaterally. Skin: No rashes, normal color, warm/dry, normal turgor. Results & Data Results & Data Vital Signs (Past 12 Hours) Vital Signs Temp Pulse Resp BP Pulse Ox O2 Del Method 03/31/24 08:03 36.5 C 82 18 147/95 H 96 Room Air Laboratory Results Short CBC 03/31/24 Range/Units 08:11 WBC 9.67 (4.8-10.8) K/ul Hgb 14.1 (14.0-18.0) g/dl Hct 40.6 L (42.0-52.0) % Plt Count 295 (130-400) K/uL BMP 03/31/24 08:11 Sodium 133 L Potassium 4.0 Chloride 100 Carbon Dioxide 25 BUN 11 Creatinine 0.84 Glucose 126 H Calcium 9.3 Diagnostic Findings Chest X-Ray 03/28/24 21:23 SINGLE VIEW CHEST CLINICAL HISTORY: Atypical chest pain FINDINGS: An AP, portable, upright chest radiograph is compared to study dated 03/15/2024. The heart is enlarged noting atherosclerotic calcification of the t horacic aorta. The pulmonary vasculature is noncongested. There is mild bibasilar scarring/atelectasis. The lungs and pleural spaces are otherwise clear. No pneumothorax is seen. The bony thorax is grossly intact. IMPRESSION: Cardiomegaly with no active disease in the chest. ACT 112: Negative or not required by law. Electronically signed by: Angel Martinez M.D. 03/29/2024 6:56 AM Abdomen/Pelvis CT 03/28/24 21:54 Exam(s): CT ABDOMEN + PELVIS With Contrast IV Amt: 120 ML OPTIRAY 320 EXAM: CT Abdomen and Pelvis With Intravenous Contrast CLINICAL HISTORY: Reason for exam: upper abd pain, hx pancreatitis. TECHNIQUE: Axial computed tomography images of the abdomen and pelvis with intravenous contrast. CTDI is 39.43 mGy and DLP is 1034.45 mGy-cm. Automated exposure control was utilized for the study. A dose lowering technique was utilized adhering to the principles of ALARA. CONTRAST: Patient received 120 ML OPTIRAY 320 of IV contrast COMPARISON: CT abdomen and pelvis 03/15/2024. FINDINGS: Lung bases: Unremarkable. No mass. No consolidation. ABDOMEN: Liver: Hepatic steatosis. Gallbladder and bile ducts: Cholecystectomy. No ductal dilation. Pancreas: Unremarkable. No mass. No ductal dilation. Spleen: Unremarkable. No splenomegaly. Adrenals: Unremarkable. No mass. Kidneys and ureters: No hydronephrosis or delayed nephrogram. Right renal cyst measures 1.4 cm. Stomach and bowel: Wall thickening and surrounding inflammation of the duodenum, correlate for duodenal ulcer disease. Need for upper GI endoscopy should be determined clinically. Diverticulosis, without acute diverticulitis. No small bowel obstruction. No free intraperitoneal air. PELVIS: Appendix: No findings to suggest acute appendicitis. Bladder: Decompressed urinary bladder. Reproductive: Unremarkable as visualized. ABDOMEN and PELVIS: Intraperitoneal space: Unremarkable. No free air. No significant fluid collection. Bones/joints: Degenerative changes of the spine. No acute fracture. No dislocation. Soft tissues: Unremarkable. Vasculature: Atherosclerotic changes of the aorta. No abdominal aortic aneurysm. Lymph nodes: Unremarkable. No enlarged lymph nodes. IMPRESSION: Wall thickening and surrounding inflammation of the duodenum, correlate for duodenal ulcer disease. Need for upper GI endoscopy should be determined clinically. Electronically signed by: Regan Richard MD 03/29/24 00:49 AM Chest CTA 03/28/24 21:54 Exam(s): CTA CHEST IV Amt: 120 ML OPTIRAY 320 EXAM: CT Angiography Chest With Intravenous Contrast CLINICAL HISTORY: Reason for exam: PE. TECHNIQUE: Axial computed tomographic angiography images of the chest with intravenous contrast. CTDI is 39.43 mGy and DLP is 1034.45 mGy-cm. Automated exposure control was utilized for the study. A dose lowering technique was utilized adhering to the principles of ALARA. MIP reconstructed images were created and reviewed. COMPARISON: No relevant prior studies available. FINDINGS: Pulmonary arteries: Unremarkable. No pulmonary embolism. Aorta: No acute findings. No thoracic aortic aneurysm. Lungs: Unremarkable. No mass. No consolidation. Pleural space: Unremarkable. No significant effusion. No pneumothorax. Heart: Unremarkable. No cardiomegaly. No significant pericardial effusion. No evidence of RV dysfunction. Bones/joints: No acute fracture. No dislocation. Soft tissues: Unremarkable. Lymph nodes: Unremarkable. No enlarged lymph nodes. Gallbladder and bile ducts: Cholecystectomy clips. IMPRESSION: No acute findings in the visualized arteries of the chest. Electronically signed by: Regan Richard MD 03/28/24 23:56 PM Medications Administered Ezetimibe (Ezetimibe 10 Mg Tab) 10 mg PO QAM ALYCIA Stop: 04/28/24 08:59 Last Admin: 03/31/24 08:49 Dose: 10 mg Documented By: Admin: 03/30/24 08:05 Dose: 10 mg Documented By: Admin: 03/29/24 08:21 Dose: 10 mg Documented By: LAVELL Hydromorphone HCl (Hydromorphone Inj 0.5 Mg/0.5 Ml Syr) 0.5 mg IV Q3H PRN PRN Reason: Severe Pain (Scale 7, 8, 9,10) Stop: 04/12/24 11:45 Last Admin: 03/31/24 12:17 Dose: 0.5 mg Documented By: Admin: 03/31/24 02:50 Dose: 0.5 mg Documented By: Admin: 03/30/24 23:43 Dose: 0.5 mg Documented By: Admin: 03/30/24 20:15 Dose: 0.5 mg Documented By: Admin: 03/30/24 13:20 Dose: 0.5 mg Documented By: BERNY Promethazine HCl 6.25 mg/ (Sodium Chloride) 50.25 mls @ 201 mls/hr IV Q6H PRN PRN Reason: Nausea And Vomiting Stop: 04/28/24 01:36 Last Infusion: 03/31/24 09:43 Dose: Infused Documented By: Admin: 03/31/24 09:14 Dose: 201 mls/hr Documented By: Infusion: 03/30/24 14:35 Dose: Infused Documented By: Admin: 03/30/24 14:10 Dose: 201 mls/hr Documented By: JON Pantoprazole Sodium 40 mg/ (Syringe) 10 mls @ 5 mls/min IV BID ALYCIA Stop: 04/28/24 20:59 Last Admin: 03/31/24 09:11 Dose: 5 mls/min Documented By: Admin: 03/30/24 20:19 Dose: 5 mls/min Documented By: Admin: 03/30/24 09:59 Dose: 5 mls/min Documented By: Admin: 03/29/24 20:06 Dose: 5 mls/min Documented By: MARIBEL Losartan Potassium (Losartan Potassium 25 Mg Tab) 12.5 mg PO QPM ALYCIA Stop: 04/28/24 20:59 Last Admin: 03/30/24 20:18 Dose: 12.5 mg Documented By: Admin: 03/29/24 20:05 Dose: 12.5 mg Documented By: MARIBEL Magnesium Oxide (Magnesium Oxide 400 Mg Tab) 400 mg PO [facility] Stop: 04/28/24 08:59 Last Admin: 03/31/24 08:50 Dose: 400 mg Documented By: Admin: 03/30/24 08:04 Dose: 400 mg Documented By: Admin: 03/29/24 08:21 Dose: 400 mg Documented By: LAVELL Metoprolol Succinate (Metoprolol Succ 25mg Ext Rel Tab) 25 mg PO [facility] Stop: 04/28/24 08:59 Last Admin: 03/31/24 08:51 Dose: 25 mg Documented By: Admin: 03/30/24 20:20 Dose: 25 mg Documented By: Admin: 03/30/24 08:04 Dose: 25 mg Documented By: Admin: 03/29/24 20:05 Dose: 25 mg Documented By: Admin: 03/29/24 08:21 Dose: 25 mg Documented By: LAVELL Oxycodone HCl (Oxycodone Hcl Ir 5 Mg Tab (Immediate Release)) 5 mg PO Q4H PRN PRN Reason: Mild-Mod Pain (Scale 1-6) Stop: 04/12/24 01:36 Last Admin: 03/31/24 08:48 Dose: 5 mg Documented By: Admin: 03/30/24 17:16 Dose: 5 mg Documented By: BERNY Rosuvastatin Calcium (Rosuvastatin Calcium 20 Mg Tab) 40 mg PO [facility] Stop: 04/28/24 08:59 Last Admin: 03/31/24 08:51 Dose: 40 mg Documented By: Admin: 03/30/24 08:00 Dose: 40 mg Documented By: Admin: 03/29/24 08:22 Dose: 40 mg Documented By: LAVELL Sertraline HCl (Sertraline Hcl 100 Mg Tablet) 100 mg PO [facility] Stop: 04/28/24 08:59 Last Admin: 03/31/24 08:51 Dose: 100 mg Documented By: Admin: 03/30/24 08:03 Dose: 100 mg Documented By: Admin: 03/29/24 08:22 Dose: 100 mg Documented By: LAVELL Spironolactone (Spironolactone 12.5 Mg Tab) 12.5 mg PO QAM ALYCIA Stop: 04/29/24 08:59 Last Admin: 03/31/24 08:52 Dose: 12.5 mg Documented By: Admin: 03/30/24 08:05 Dose: 12.5 mg Documented By: BERNY Ticagrelor (Ticagrelor 90 Mg Tab) 90 mg PO [facility] ALYCIA Stop: 04/28/24 20:59 Last Admin: 03/31/24 11:04 Dose: 90 mg Documented By: Admin: 03/30/24 20:18 Dose: 90 mg Documented By: Admin: 03/30/24 08:03 Dose: 90 mg Documented By: Admin: 03/29/24 20:06 Dose: 90 mg Documented By: MARIBEL Discontinued Medications Hydromorphone HCl (Hydromorphone Inj 0.5 Mg/0.5 Ml Syr) 0.5 mg IV Q15M PRN PRN Reason: Pain Stop: 04/11/24 23:02 Last Admin: 03/29/24 00:44 Dose: 0.5 mg Documented By: Admin: 03/28/24 23:22 Dose: 0.5 mg Documented By: KLAUS Hydromorphone HCl (Hydromorphone Inj 0.5 Mg/0.5 Ml Syr) 0.5 mg IV Q3H PRN PRN Reason: Pain Stop: 04/12/24 11:45 Last Admin: 03/30/24 01:09 Dose: 0.5 mg Documented By: Admin: 03/29/24 20:04 Dose: 0.5 mg Documented By: Admin: 03/29/24 17:03 Dose: 0.5 mg Documented By: Admin: 03/29/24 12:40 Dose: 0.5 mg Documented By: PEPITO Famotidine (Pepcid 20mg Iv Push) 20 mg in 5 mls @ 2.5 mls/min IV NOW STA Stop: 03/28/24 21:55 Last Admin: 03/28/24 22:03 Dose: 2.5 mls/min Documented By: KLAUS Pantoprazole Sodium 80 mg/ (Dextrose) 120 mls @ 480 mls/hr IV ONE STA Stop: 03/29/24 01:06 Last Infusion: 03/29/24 01:50 Dose: Infused Documented By: Admin: 03/29/24 01:27 Dose: 480 mls/hr Documented By: ASIF Potassium Chloride/Sodium Chloride (Normal Saline W/20 Meq Kcl) 20 meq in 1,000 mls @ 50 mls/hr IV .Q20H ONE; Protocol Stop: 03/29/24 21:37 Last Infusion: 03/29/24 17:07 Dose: Infused Documented By: Admin: 03/29/24 01:47 Dose: 50 mls/hr Documented By: ASIF Lactated Ringer's (Lr) 1,000 mls @ 100 mls/hr IV .Q10H [facility] Stop: 04/28/24 16:44 Last Infusion: 03/31/24 08:41 Dose: Infused Documented By: Admin: 03/30/24 23:43 Dose: 100 mls/hr Documented By: Infusion: 03/30/24 23:18 Dose: Infused Documented By: Admin: 03/30/24 13:18 Dose: 100 mls/hr Documented By: Infusion: 03/30/24 10:59 Dose: Infused Documented By: Admin: 03/30/24 02:25 Dose: 100 mls/hr Documented By: Infusion: 03/30/24 02:25 Dose: Infused Documented By: Admin: 03/29/24 17:07 Dose: 100 mls/hr Documented By: PEPITO Ioversol (Optiray 320 125ml) 120 ml IV ONCE ONE Stop: 03/28/24 22:40 Last Admin: 03/28/24 22:39 Dose: 120 ml Documented By: NELSON Lidocaine HCl (Lidocaine 2% 2 Ml Vial/Amp(20mg/Ml)) Confirm Administered Dose 4 ml INFIL .STK-MED ONE Stop: 03/30/24 12:06 Last Admin: 03/30/24 13:55 Dose: Not Given Documented By: JON Morphine Sulfate (Morphine Sulfate 4 Mg/Ml 1 Ml Carp\\Vial) 4 mg IV NOW STA Stop: 03/28/24 21:55 Last Admin: 03/28/24 22:03 Dose: 4 mg Documented By: KLAUS Morphine Sulfate (Morphine Sulfate 2 Mg/Ml Carp) 2 mg IV Q4H PRN PRN Reason: Pain Stop: 04/12/24 01:43 Last Admin: 03/29/24 11:30 Dose: 2 mg Documented By: Admin: 03/29/24 07:17 Dose: 2 mg Documented By: Admin: 03/29/24 02:37 Dose: 2 mg Documented By: PRATIK Ondansetron HCl (Ondansetron Inj 2 Mg/Ml 2 Ml Vial) 4 mg IV NOW STA Stop: 03/28/24 21:55 Last Admin: 03/28/24 22:03 Dose: 4 mg Documented By: KLAUS Oxycodone HCl (Oxycodone Hcl Ir 5 Mg Tab (Immediate Release)) 5 mg PO Q4H PRN PRN Reason: Pain Stop: 04/12/24 01:36 Last Admin: 03/30/24 05:14 Dose: 5 mg Documented By: Admin: 03/29/24 22:58 Dose: 5 mg Documented By: Admin: 03/29/24 18:32 Dose: 5 mg Documented By: Admin: 03/29/24 14:02 Dose: 5 mg Documented By: PEPITO Pantoprazole Sodium (Pantoprazole 40 Mg Tab) 40 mg PO BID ALYCIA Stop: 04/28/24 08:59 Last Admin: 03/29/24 08:22 Dose: 40 mg Documented By: LAVELL Propofol (Propofol Iv Emulsion 10 Mg/Ml 20 Ml Vial) Confirm Administered Dose 200 mg IV .STK-MED ONE Stop: 03/30/24 12:06 Last Admin: 03/30/24 13:55 Dose: Not Given Documented By: JON
--- NOTE | 2024-03-31 13:23 | Communication Note ---
Date of Service: March 31, 2024 Contacted by nurse at 12:39 as pt was c/o nausea - ordered dose of IV Zofran to be given. Will continue PRN IV promethazine.
[2024-03-31] MEDS: SUCRALFATE 1 GM TAB PO PRN (23:19)
[2024-04-01 06:24] LABS: Basophils # (auto) 0.06 K/uL (0.00-0.20); Basophils % (auto) 0.8 %; Eosinophils # (auto) 0.13 K/uL (0.00-0.50); Eosinophils % (auto) 1.8 %; Hematocrit (blood only) 38.1 % (42.0-52.0); Hemoglobin 13.4 g/dl (14.0-18.0); Immature Granulocytes # (auto) 0.02 K/uL (0.01-0.20); Immature Granulocytes % (auto) 0.3 %; Lymphocytes # (auto) 1.44 K/uL (1.20-3.40); Lymphocytes % (auto) 20.3 %; Mean Corpuscular Hemoglobin 32.8 pg (25.0-34.0); Mean Corpuscular Hgb Conc 35.2 g/dL (32.0-36.0); Mean Corpuscular Volume 93.2 fL (80.0-100.0); Mean Platelet Volume 8.9 fL (9.4-12.4); Monocytes # (auto) 0.54 K/uL (0.11-0.59); Monocytes % (auto) 7.6 %; Neutrophils % (auto) 69.2 %; Platelet Count 277 K/uL (130-400); RDW Coefficient of Variation 13.5 % (11.5-14.5); Red Blood Count 4.09 M/uL (4.70-6.10); White Blood Count 7.09 K/ul (4.8-10.8)
[2024-04-01 06:41] LABS: Calcium 9.4 mg/dl (8.6-10.3); Creatinine Clr Calc Pharmacy 77.2 ml/min; Est GFR (African American) 108.9 ml/min; Potassium 4.3 mmol/L (3.5-5.1)
--- NOTE | 2024-04-01 15:34 | Discharge Summary ---
Date of Service April 01, 2024 Admission HPI Per Admitting Provider History obtained from patient and records. Medical history significant for chronic systolic heart failure (EF 35 to 40%, TTE 2023), premature CAD sp stent (05/2023), PAF as per records, mild MR, history NSVT, HTN, hyperlipidemia, recurrent pancreatitis status post cholecystectomy/ ERCP, Casanova's esophagus, anxiety/mood disorder, ongoing tobacco abuse. Recent confinement March 15 to 2023 for acute on chronic pancreatitis, bradycardia. GI recommended outpatient EUS follow-up with patient's [facility] specialist. Cardiology recommended continuing patient beta-shay despite bradycardia. Losartan added to regimen. Future device implantation for the borderline Tachy-Jamarcus Syndrome/ischemic cardiomyopathy mentioned in report. Shortly after discharge, patient had recurrence of abdominal pain which prompted confinement for a few days at [facility]. Patient was told he may have pancreatic cancer on imaging. Dedicated MRI of the pancreas recommended. Last night, patient had recurrence of achy abdominal pain going to the chest reminiscent of prior pancreatitis attacks. No fever, no chills. No SOB. Denies black or bloody stools. No OTC NSAID intake. IV Pepcid and Protonix administered at the ER. MEDICAL HISTORY: As above. 2020 EGD showed Casanova's esophagus 2019 colonoscopy showed internal hemorrhoids, polyps OPERATIONS: vasectomy, cholecystectomy FAMILY HISTORY:Hypertension, stroke; no pancreatitis PERSONAL AND SOCIAL HISTORY: One-half pack daily. No chronic intake of alcoholic beverages. 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 Admission Exam Per Admitting Provider GENERAL: comfortable, pleasant, no respiratory distress SKIN: Normal color, warm HEENT: Alopecia, pink palpebral conjunctivae, no ptosis, dry buccal mucosa NECK : Supple, no tenderness CHEST : CTA, no tenderness HEART : Bradycardic, no obvious murmurs ABDOMEN: some distention, epigastric tenderness EXTREMITIES : No LE swelling/tenderness, no other conspicuous deformities noted NEUROLOGIC : Coherent, no facial asymmetry, no other gross focality Principal Diagnosis Epigastric Abdominal Pain Possible Duodenal Ulcer Disease Hx of Chronic Pancreatitis Discharge Exam Constitutional: WD/WN, vitals as above, NAD, sitting up in bed, pleasant, conversing easily Respiratory: normal respiratory effort, lungs clear to auscultation, no wheeze, rales, rhonchi. Normal insp/exp effort, no accessory muscle use Cardiovascular: RRR, no murmur, no edema Vessels: no JVD or carotid bruit Chest: normal inspection of chest Abdomen: no tenderness on palpation of abdomen Musculoskeletal: no cyanosis or clubbing, extremities motor strength 5/5 Skin: no rashes, warm and dry normal turgor Neurologic: PERRL, EOMI, accommodation nl, no face palsy, no dysarthria CN's II-XI intact bilaterally and moves all extremities Psychiatric: A+Ox3, euthymic affect Discharge Data Allergies Allergy/AdvReac Type Severity Reaction Status Date / Time isosorbide [From Imdur] AdvReac Severe severe Verified 03/28/24 22:05 migraine Consultations 03/29/24 00:53 ED Decision to Admit Stat 03/29/24 01:59 Consult Gastroenterology Routine 03/29/24 06:00 HIM [Consult Health Information Management] Routine 03/30/24 14:03 Consult Pain Management Routine Procedures Performed Operation Date: 03/30/24 16:30 Actual Procedures p EGD Biopsy Cytology - Kelby Tong MD Ordered Studies 03/28/24 21:54 CT Abd and Pelvis [CT abd pelvis IV con only] Stat CT angio chest PE protocol Stat Hospital Course (1) Epigastric abdominal pain: Kelley Cazares is a 53y/o M with medical history significant for chronic systolic heart failure (EF 35 to 40%, TTE 03/2024), premature CAD s/p stent (05/2023), PAF as per records, mild MR, history NSVT, HTN, hyperlipidemia, recurrent pancreatitis s/p cholecystectomy/ ERCP, Casanova's esophagus, anxiety/mood disorder and ongoing tobacco abuse who presented to the ED with acute epigastric pain. Patient underwent CT abdomen pelvis; found to have wall thickening and surrounding inflammation of the duodenum. It was concerning for duodenal ulcer disease. Patient admitted to EGD by GI on March; found to have mild gastritis and 3 cm hiatal hernia. Patient's epigastric pain was thought secondary to acute on chronic pancreatitis for which he was started on IV fluids, pain medication. Diet was gradually advanced to low-fat diet. Patient reported gradual improvement throughout the hospitalization. Patient was recently hospitalized at [facility] last week and had undergone CT abdomen/pelvis; reported to have "possible infiltrating mass in the pancreatic head was not excluded". These findings were discussed with GI on- call during the hospitalization; they did not recommended additional imaging at this time and recommended outpatient EUS with [facility] as outpatient. CT abdomen and pelvis during the hospitalization did not suggest any finding of pancreatic mass or duct dilation. T Please note the above document was generated using voice recognition software. It may contain grammatical, syntax or spelling errors. Any formal questions or concerns about the content, text or information contained within the body of this dictation should be directly addressed to the provider for clarification Total Time Total Time Spent Total Time Spent (In Minutes): 34 Total Time Includes: Examination of the Patient, Discharge Planning, Medication Reconciliation, Communication With Other Providers and Other Discharge Plan Discharge Items Patient Disposition: Home - Self-Care Reason For Visit: ABD PAIN Discharge Diagnosis: Acute on chronic pancreatitis Condition on Discharge: Good Activity: Resume your previous activity Non-emergency contact: Primary Care Provider Call non-emergency contact if: you have any medication questions and your symptoms worsen Follow-up/Referrals: Wade Bragg MD [Primary Care Provider] - (Date & Time 04/10/2024 2:20 PM Provider Wade Bragg MD Department [facility] ) Diet: Regular and Low Fat Addtl Attending Provider Instructions: You were admitted to the hospital due to abdominal pain. Your evaluated by GI during the hospitalization. You underwent endoscopy on March 30; you are found to have mild gastritis and 3 cm hiatal hernia. You are prescribed oxycodone as needed for pain. Please follow low-fat diet as we discussed. Please follow-up with your primary care doctor. Please obtain referral for GI for EUS(Endcoscopic Ultrasound). Pending Studies at Discharge: No Stand-Alone Forms: My Xamarin, Work/School Release, Smoking Cessation Medications and DC Order Prescriptions: New oxycodone 5 mg Tablet 5 mg PO Q6H PRN (Reason: pain) Qty: 15 0RF Continued nitroglycerin [Nitrostat] 0.4 mg tablet, sublingual 0.4 mg Sublingual .EVERY 5 MINUTES MDD 3 doses PRN (Reason: Chest Pain) Rx Instructions: if no relief after 3rd dose call 911 famotidine 40 mg tablet 40 mg PO HS PRN (Reason: Acid Reflux) dicyclomine 10 mg capsule 10 mg PO BID PRN (Reason: Abdominal Pain) ezetimibe 10 mg tablet 10 mg PO QAM magnesium oxide 400 mg magnesium Tablet 400 mg PO QAM pantoprazole 40 mg tablet,delayed release (DR/EC) 40 mg PO QAM aspirin 81 mg tablet,delayed release (DR/EC) 81 mg PO QAM Qty: 30 0RF rosuvastatin 40 mg tablet 40 mg PO QAM spironolactone 25 mg tablet 12.5 mg PO QAM Qty: 15 0RF metoprolol succinate 25 mg tablet extended release 24 hr 25 mg PO [facility] Brilinta 90 mg tablet 90 mg PO AMHS sertraline 100 mg tablet 100 mg PO QAM losartan 25 mg Tablet 12.5 mg PO QPM Qty: 30 0RF sucralfate 1 gram tablet 1 g PO ACHS PRN (Reason: Stomach Upset) Discharge Orders: Discharge Order (Routine); Ordered 04/01/24 Ordered By: Lukas Vazquez/Other Patient Handouts: ED Gastritis (Adult) Admission Data Admit Date/Time: 03/31/24 11:47 Attending Provider: Lukas Santos Admit Provider: Fahad Anne Primary Care Provider: Wade Bragg Other Providers: Fahad Anne; Milton Rosales; Demarco Vo Other Interventions: Discharge Summary Assessment (RN) Last Done: 04/01/24 13:06
== END 2024-04-01 13:37 | disposition home or self-care (01) | DRG 384 ==
LOC: ED 21:09 → EDINP 21:09 → SUATTDRO 03-29 01:36 → 3W 03-29 01:59
DX: E78.5 Hyperlipidemia, unspecified; F32.A Depression, unspecified; K86.1 Other chronic pancreatitis; R73.03 Prediabetes; I44.1 Atrioventricular block, second degree; K26.9 Duodenal ulcer, unspecified as acute or chronic, without hemorrhage or perforation; I50.22 Chronic systolic (congestive) heart failure; I25.10 Atherosclerotic heart disease of native coronary artery without angina pectoris; I48.0 Paroxysmal atrial fibrillation; Z95.5 Presence of coronary angioplasty implant and graft; F17.210 Nicotine dependence, cigarettes, uncomplicated; I11.0 Hypertensive heart disease with heart failure; I25.2 Old myocardial infarction; K21.9 Gastro-esophageal reflux disease without esophagitis; F41.1 Generalized anxiety disorder; K31.89 Other diseases of stomach and duodenum; I25.5 Ischemic cardiomyopathy; I49.5 Sick sinus syndrome; Z79.82 Long term (current) use of aspirin; K29.70 Gastritis, unspecified, without bleeding; Z79.899 Other long term (current) drug therapy; Z86.16 Personal history of COVID-19; K44.9 Diaphragmatic hernia without obstruction or gangrene

== ENCOUNTER 2024-05-12 17:49 | Inpatient (IN) ==
[2024-05-12 18:44] LABS: Basophils # (auto) 0.07 K/uL (0.00-0.20); Basophils % (auto) 1.1 %; Eosinophils # (auto) 0.22 K/uL (0.00-0.50); Eosinophils % (auto) 3.5 %; Hematocrit (blood only) 42.8 % (42.0-52.0); Hemoglobin 14.5 g/dl (14.0-18.0); Immature Granulocytes # (auto) 0.01 K/uL (0.01-0.20); Immature Granulocytes % (auto) 0.2 %; Lymphocytes # (auto) 2.35 K/uL (1.20-3.40); Lymphocytes % (auto) 37.3 %; Mean Corpuscular Hemoglobin 32.7 pg (25.0-34.0); Mean Corpuscular Hgb Conc 33.9 g/dL (32.0-36.0); Mean Corpuscular Volume 96.4 fL (80.0-100.0); Mean Platelet Volume 8.9 fL (9.4-12.4); Monocytes # (auto) 0.45 K/uL (0.11-0.59); Monocytes % (auto) 7.1 %; Neutrophils % (auto) 50.8 %; Platelet Count 245 K/uL (130-400); RDW Coefficient of Variation 14.5 % (11.5-14.5); RDW Standard Deviation 51.3 fL (36.4-46.3); Red Blood Count 4.44 M/uL (4.70-6.10)
[2024-05-12 19:02] LABS: Albumin Globulin Ratio 1.7 (0.9-2); Albumin Level 4.5 gm/dl (3.4-5.0); BUN Creatinine Ratio 14.6 (10-20); Bilirubin,Total 0.4 mg/dl (0.2-1.0); Calcium 9.5 mg/dl (8.6-10.3); Creatinine Clr Calc Pharmacy 70.8 ml/min; Est GFR (African American) 103.4 ml/min; Est GFR (Non-African American) 89.3 ml/min; Globulin 2.6 gm/dl (2.5-4.0); Potassium 3.9 mmol/L (3.5-5.1); Total Protein 7.1 gm/dl (6.0-8.3)
--- NOTE | 2024-05-12 19:38 | Emergency Department Note ---
Impression & Plan Abdominal pain ED Provider Note ED Provider Note NAME: SAMUEL RIDER AGE:53 SEX: Male : 1970 ARRIVES VIA: Private vehicle INFORMANT: Patient ED PROVIDER(s): Vinita Boston DO CHIEF COMPLAINT: Abdominal pain HPI: This is a 53-year-old male presents emergency room due to concern for recurrent abdominal pain that began this afternoon at 3 PM. Patient states this is similar to prior episodes of pancreatitis. Patient with a long history of pancreatitis and peptic ulcer disease. He states no recent change in medications. Patient states he has chronic diarrhea, no recent change in his stools including no black or bloody stools. He denies fevers or chills. No recent URI symptoms. He states he was nauseated after the pain began however no vomiting. He states he did try Tylenol at home without any relief. He denies any use of alcohol. Patient was admitted here last month with similar symptoms. He states he did undergo EGD at that time by Dr. Gross. He states he is scheduled to see Dr. Gross and have repeat endoscopy again in June. PAST MEDICAL HISTORY:See Below PAST SURGICAL HISTORY:See Below FAMILY HISTORY:See Below SOCIAL HISTORY:See Below HOME MEDICATIONS:See Below ALLERGIES:See Below VITALS:See Below PHYSICAL EXAMINATION: GENERAL: alert, well appearing, well nourished, no distress, non-toxic EYE EXAM: normal conjunctiva, PERRL and EOM's grossly intact OROPHARYNX: no exudate, no erythema, lips, buccal mucosa, and tongue normal and mucous membranes are moist, poor dentition NECK: supple, no nuchal rigidity, no adenopathy, non-tender LUNGS: Clear to auscultation. Normal chest wall mechanics, no w/r/r HEART: no murmurs, S1 normal and S2 normal ABDOMEN: abdomen soft, epigastric and left upper quadrant tenderness with palpation, normo-active bowel sounds, no masses, no rebound or guarding. BACK: Back is symmetrical on inspection and there is no deformity, no midline tenderness, no CVA tenderness. SKIN: no rashes, petechiae, orbruising UPPER EXTREMITIES: upper extremities are grossly normal. FROM, nml pulses b/l. LOWER EXTREMITIES: No pitting edema. FROM, nml pulses b/l. NEURO EXAM: Normal sensorium, cranial nerves II-XII grossly intact, normal speech, no facial droop,nogross weakness of arms, no gross weakness of legs. Gross sensation intact. No ataxia. Vital Signs: reviewed and remarkable Differential Diagnosis: Pancreatitis, PUD, perforation, GI bleed, duodenitis, colitis, bowel obstruction, mesenteric ischemia, AAA, ACS, as well as others were considered MEDICAL DECISION MAKING: This is a 53-year-old male presents due to concern for abdominal pain and recurrent episode of pancreatitis. Patient with long history of pancreatitis and PUD. He does follow routinely with GI. Patient presented here after persistent pain despite Tylenol and clear liquids at home. Labs drawn and sent, IV established, patient monitored on telemetry. He was initially given IV fluids, IV Tylenol, IV Protonix and IV Pepcid. Due to persistent and worsening pain he was eventually given a dose of IV morphine. KUB performed and interpreted by me at bedside. We discussed avoiding further CAT scans as based on my count upon review of EMR he has already had 7 CAT scans this year. Patient's labs reassuring. He was monitored for several hours and unfortunately had recurrent and worsening pain. No vomiting or diarrhea here and patient otherwise afebrile. Case discussed with the hospitalist team for additional evaluation and management. I have low suspicion at this time for occult bowel obstruction, colitis, mesenteric ischemia, perforation, AAA, ACS, or GI bleed. Consultation(s): 2209: Discussed with Dr. Singh who, [facility] hospitalist team, for additional evaluation and management. ER Treatment Provided: See below Diagnostics Interpreted By Me: -EKG: Sinus bradycardia 58, normal axis, normal intervals, no acute ST/T wave changes, appearance of incomplete right bundle branch block -Cardiac Monitoring: An order was placed for continuous cardiac monitoring. The monitor shows a rate of 66 with normal sinus rhythm. -Laboratory studies: As stated above and show below. -Imaging studies: KUB: no sbo Triage Nursing Note Reviewed Prior/Outside Records Reviewed -prior EGD from March 2024 reviewed Past Med/Surg History Problem List (Updated 05/12/24 @ 19:38 by Vinita Boston DO) Abdominal pain (Acute) Acute on chronic pancreatitis (Acute) Epigastric abdominal pain Abdominal pain, acute (Acute) Acute pancreatitis (Acute) SVT (supraventricular tachycardia) Chest pain (Acute) Acute pancreatitis (Acute) GERD (gastroesophageal reflux disease) Chest pain (Acute) Ischemic cardiomyopathy Non-sustained ventricular tachycardia (Acute) Elevated troponin (Acute) Bradycardia (Acute) Chronic pancreatitis Sinus bradycardia Chest pain (Acute) Hematoma Tobacco abuse Recurrent pancreatitis Non-ST elevation (NSTEMI) myocardial infarction (Acute) Acute on chronic pancreatitis Abdominal pain (Acute) Lesion of pancreas Elevated lipase Pancreatitis (Acute) Chest pain (Acute) Chest pain Acute pancreatitis (Acute) Abdominal pain, periumbilical (Acute) Anemia Hypomagnesemia Hypophosphatemia Hx laparoscopic cholecystectomy (08/22/21) Laparoscopic Cholecystectomy Dr. Davidson 08/22/2021 Grade II diastolic dysfunction Barretts esophagus Acute pancreatitis (Acute) Non-ST elevation RI (NSTEMI) (Acute) Breath shortness (Acute) DVT prophylaxis Chest pain (Acute) HLD (hyperlipidemia) RADHA (generalized anxiety disorder) CAD (coronary artery disease) (Acute) 2018-RCA stent x 2 07/2020-STEMI, s/p PCI to left circumflex with 2 MELLY. Post procedure complicated by V. fib arrest requiring defibrillation. 12/2020-NSTEMI s/p 3 Xience MELLY to the distal aspect of prior stent of the left posterior lateral branch vessel Depression GERD (gastroesophageal reflux disease) (Acute) Medical History ST elevation myocardial infarction (STEMI) COVID-29 Oct 2021 Mobitz type 2 second degree atrioventricular block Tobacco abuse Splenic infarct Surgical History History of endoscopic retrograde cholangiopancreatography x2 (08/31, 09/30) History of vasectomy Family History Mother Gallbladder disease Sister Gallbladder disease Other Diabetes Stroke Denies family history of Pancreatic disease Social History Smoking Status: Current every day smoker Tobacco Type: Cigarettes Cigarettes Per Day: 1 pck/day; Second Hand Exposure: No; Do You Dip or Chew Tobacco: No; Hx Alcohol Use: No Hx Substance Use: No Preferred Language: Setswana Communication Ability: Effective Crib Clerk Required: No Beliefs That Will Affect Care: None marital status: Single Current Living Situation: Alone current occupational status: employed Other Information That Helps Us Care for You: No Feels Safe at Home: Yes Safety Concerns: Feels Safe At This Time Assistive Devices: None Allergies Allergies Allergy/AdvReac Type Severity Reaction Status Date / Time isosorbide [From Imdur] AdvReac Severe severe Verified 05/12/24 21:26 migraine Home Meds Home Medications Medication Instructions Recorded Confirmed nitroglycerin 0.4 mg sublingual 0.4 mg sublingual .EVERY 5 MINUTES 10/07/18 05/12/24 tablet (Nitrostat) PRN Chest Pain dicyclomine 10 mg capsule 10 mg PO BID PRN Abdominal Pain 12/06/20 05/12/24 ezetimibe 10 mg tablet 10 mg PO QAM 12/06/20 05/12/24 famotidine 40 mg tablet 40 mg PO HS PRN Acid Reflux 12/06/20 05/12/24 magnesium oxide 400 mg PO QAM 12/06/20 05/12/24 rosuvastatin 40 mg tablet 40 mg PO QAM 06/07/23 05/12/24 metoprolol succinate 25 mg 25 mg PO AMHS 07/27/23 05/12/24 tablet,extended release 24 hr ticagrelor 90 mg tablet (Brilinta) 90 mg PO AMHS 07/27/23 05/12/24 sertraline 100 mg tablet 100 mg PO QAM 10/21/23 05/12/24 losartan 25 mg tablet 12.5 mg PO DAILY 04/21/24 05/12/24 Previous Rx's Medication Instructions Recorded aspirin 81 mg tablet,delayed 81 mg PO QAM #30 tabs 05/24/23 release spironolactone 25 mg tablet 12.5 mg (1/2 x 25 mg) PO QAM #15 06/08/23 tabs ondansetron 4 mg disintegrating 4 mg PO Q6H PRN nausea and 04/21/24 tablet vomiting #20 tabs pantoprazole 40 mg tablet,delayed 40 mg PO BID #60 tabs 05/13/24 release sucralfate 1 gram tablet 1 g PO ACHS PRN Stomach Upset #120 05/13/24 tabs Results & Data (ED) Vital Signs Vital Signs - 24 hr 05/12/24 17:52 05/12/24 19:02 05/12/24 19:02 Temperature 36.8 C Temperature Source Oral Pulse Rate 77 58 L 73 Pulse Rate from SpO2 Sensor 73 Respiratory Rate 20 16 Respiratory Effort / Characteristics Non-Labored Respiratory Depth Normal Blood Pressure 154/110 H 135/95 Blood Pressure Mean 124 96 Pulse Oximetry 99 99 Oxygen Delivery Method Room Air Room Air Sepsis Recent Fever Within 48 Hours No Sepsis New/Unexplained Change in Mental Status N/A Sepsis Action Taken by Nursing No Action Required 05/12/24 19:30 05/12/24 20:15 05/12/24 20:31 Temperature Temperature Source Pulse Rate 63 62 60 Pulse Rate from SpO2 Sensor 65 63 60 Respiratory Rate 17 18 22 Respiratory Effort / Characteristics Respiratory Depth Blood Pressure 144/96 H 164/100 H 152/94 H Blood Pressure Mean 102 121 114 Pulse Oximetry 99 99 97 Oxygen Delivery Method Room Air Room Air Room Air Sepsis Recent Fever Within 48 Hours Sepsis New/Unexplained Change in Mental Status Sepsis Action Taken by Nursing 05/12/24 21:30 05/12/24 22:00 05/12/24 22:31 Temperature Temperature Source Pulse Rate 64 64 76 Pulse Rate from SpO2 Sensor 64 64 77 Respiratory Rate 22 20 22 Respiratory Effort / Characteristics Respiratory Depth Blood Pressure 140/86 148/91 H 139/82 Blood Pressure Mean 108 116 113 Pulse Oximetry 98 98 97 Oxygen Delivery Method Room Air Room Air Room Air Sepsis Recent Fever Within 48 Hours Sepsis New/Unexplained Change in Mental Status Sepsis Action Taken by Nursing Laboratory Data 05/13/24 05:18 05/13/24 05:18 Lab Results 05/12/24 05/12/24 Range/Units 18:31 20:18 WBC 6.30 (4.8-10.8) K/ul RBC 4.44 L (4.70-6.10) M/uL Hgb 14.5 (14.0-18.0) g/dl Hct 42.8 (42.0-52.0) % MCV 96.4 (80.0-100.0) fL MCH 32.7 (25.0-34.0) pg MCHC 33.9 (32.0-36.0) g/dL RDW Std Deviation 51.3 H (36.4-46.3) fL RDW Coeff of Mckinley 14.5 (11.5-14.5) % Plt Count 245 (130-400) K/uL MPV 8.9 L (9.4-12.4) fL Immature Gran % (Auto) 0.2 % Neut % (Auto) 50.8 % Lymph % (Auto) 37.3 % [place] % (Auto) 7.1 % Eos % (Auto) 3.5 % Baso % (Auto) 1.1 % Neut # (Auto) 3.20 (1.40-6.50) K/uL Lymph # (Auto) 2.35 (1.20-3.40) K/uL [place] # (Auto) 0.45 (0.11-0.59) K/uL Eos # (Auto) 0.22 (0.00-0.50) K/uL Baso # (Auto) 0.07 (0.00-0.20) K/uL Immature Gran # (Auto) 0.01 (0.01-0.20) K/uL Sodium 138 (136-145) mmol/L Potassium 3.9 (3.5-5.1) mmol/L Chloride 105 (98-107) mmol/L Carbon Dioxide 25 (21-32) mmol/L Anion Gap 8 (3-11) BUN 14 (6-23) mg/dl Creatinine 0.96 (0.6-1.4) mg/dl Est Cr Clr Drug Dosing 70.8 ml/min Est GFR ( Amer) 103.4 ml/min Est GFR (Non-Af Amer) 89.3 ml/min BUN/Creatinine Ratio 14.6 (10-20) Glucose 95 (70-99(Fasting)) mg/dl Calcium 9.5 (8.6-10.3) mg/dl Total Bilirubin 0.4 (0.2-1.0) mg/dl AST 18 (13-39) U/L ALT 13 (7-52) U/L Alkaline Phosphatase 64 (34-104) U/L Troponin I High Sens 9.7 (0-20) pg/ml Total Protein 7.1 (6.0-8.3) gm/dl Albumin 4.5 (3.4-5.0) gm/dl Globulin 2.6 (2.5-4.0) gm/dl Albumin/Globulin Ratio 1.7 (0.9-2) Lipase 46 (11-82) U/L Urine Color Yellow Urine Appearance Clear (Clear) Urine pH 6.5 (4.5-7.5) Ur Specific [place] 1.010 (1.000-1.030) Urine Protein Negative (Negative) Urine Glucose (UA) Negative (Negative) Urine Ketones Negative (Negative) Urine Blood Negative (Negative) Urine Nitrite Negative (Negative) Urine Bilirubin Negative (Negative) Urine Urobilinogen Negative (Negative) Ur Leukocyte Esterase Negative (Negative) Administered Medications Discontinued Medications Aspirin (Aspirin 81 Mg Ectab) [facility] [place]: 06/12/24 08:59 Last Admin: 05/13/24 08:47 Dose: 81 mg Documented By: SARAH Ezetimibe (Ezetimibe 10 Mg Tab) [facility] Stop: 06/12/24 08:59 Last Admin: 05/13/24 08:47 Dose: 10 mg Documented By: SARAH Enoxaparin Sodium (Enoxaparin Inj 40 Mg/0.4 Ml Syr) 40 mg SQ PM [facility] Stop: 06/12/24 00:45 Last Admin: 05/13/24 01:05 Dose: Not Given Documented By: PHILLIP Hydromorphone HCl (Hydromorphone Inj 0.5 Mg/0.5 Ml Syr) 0.5 mg IV Q4H PRN PRN Reason: Mod-Sev Pain (Scale 4-10) Stop: 05/27/24 00:45 Last Admin: 05/13/24 05:30 Dose: 0.5 mg Documented By: Admin: 05/13/24 01:03 Dose: 0.5 mg Documented By: PHILLIP Pantoprazole Sodium 40 mg/ (Syringe) 10 mls @ 5 mls/min IV NOW ONE Stop: 05/12/24 19:34 Last Admin: 05/12/24 20:35 Dose: 5 mls/min Documented By: CODY Famotidine (Pepcid 20mg Iv Push) 20 mg in 5 mls @ 2.5 mls/min IV NOW STA Stop: 05/12/24 19:34 Last Admin: 05/12/24 19:44 Dose: 2.5 mls/min Documented By: CHERELLE Sodium Chloride (Nss) 1,000 mls @ 999 mls/hr IV .Q1H1M ONE Stop: 05/12/24 20:33 Last Infusion: 05/12/24 21:14 Dose: Infused Documented By: Admin: 05/12/24 20:13 Dose: 999 mls/hr Documented By: Infusion: 05/12/24 20:13 Dose: Infused Documented By: Admin: 05/12/24 19:43 Dose: 999 mls/hr Documented By: CHERELLE Acetaminophen (Ofirmev) 1,000 mg in 100 mls @ 400 mls/hr IV NOW STA Stop: 05/12/24 20:21 Last Infusion: 05/12/24 20:29 Dose: Infused Documented By: Admin: 05/12/24 20:14 Dose: 400 mls/hr Documented By: CODY Sodium Chloride (Nss) 1,000 mls @ 999 mls/hr IV .Q1H1M ONE Stop: 05/12/24 21:35 Last Infusion: 05/12/24 22:23 Dose: Infused Documented By: Admin: 05/12/24 21:22 Dose: 999 mls/hr Documented By: CODY Lactated Ringer's (Lr) 1,000 mls @ 100 mls/hr IV .Q10H ALYCIA Stop: 06/12/24 00:45 Last Admin: 05/13/24 10:30 Dose: 100 mls/hr Documented By: Infusion: 05/13/24 10:30 Dose: Infused Documented By: Admin: 05/13/24 01:03 Dose: 100 mls/hr Documented By: PHILLIP Losartan Potassium (Losartan Potassium 25 Mg Tab) 12.5 mg PO DAILY ALYCIA Stop: 06/12/24 08:59 Last Admin: 05/13/24 08:47 Dose: 12.5 mg Documented By: RRR Magnesium Oxide (Magnesium Oxide 400 Mg Tab) 400 mg PO QAM ALYCIA Stop: 06/12/24 08:59 Last Admin: 05/13/24 08:49 Dose: 400 mg Documented By: RRR Metoprolol Succinate (Metoprolol Succ 25mg Ext Rel Tab) 25 mg PO BID ALYCIA Stop: 06/12/24 08:59 Last Admin: 05/13/24 08:49 Dose: Not Given Documented By: HEATHR Morphine Sulfate (Morphine Sulfate 4 Mg/Ml 1 Ml Carp\Vial) 4 mg IV NOW STA Stop: 05/12/24 20:08 Last Admin: 05/12/24 20:14 Dose: 4 mg Documented By: CODY Morphine Sulfate (Morphine Sulfate 4 Mg/Ml 1 Ml Carp\Vial) 4 mg IV NOW STA Stop: 05/12/24 21:54 Last Admin: 05/12/24 22:24 Dose: 4 mg Documented By: DML Pantoprazole Sodium (Pantoprazole 40 Mg Tab) [facility] [place]: 06/12/24 08:59 Last Admin: 05/13/24 08:49 Dose: 40 mg Documented By: RRR Rosuvastatin Calcium (Rosuvastatin Calcium 20 Mg Tab) [facility] Stop: 06/12/24 08:59 Last Admin: 05/13/24 08:49 Dose: 40 mg Documented By: RRR Sertraline HCl (Sertraline Hcl 100 Mg Tablet) [facility] Stop: 06/12/24 08:59 Last Admin: 05/13/24 08:50 Dose: 100 mg Documented By: RRR Spironolactone (Spironolactone 12.5 Mg Tab) 12.5 [facility] [place] Stop: 06/12/24 08:59 Last Admin: 05/13/24 08:50 Dose: 12.5 mg Documented By: RRR Ticagrelor (Ticagrelor 90 Mg Tab) 90 mg PO [facility] Stop: 06/12/24 08:59 Last Admin: 05/13/24 08:50 Dose: 90 mg Documented By: RRR Imaging Data Radiologist's Impression: KUB X-Ray 05/12/24 21:53 XR KUB/Abdomen 1 view CLINICAL HISTORY: abd pain TECHNIQUE: 1 view of the abdomen was obtained. Comparison: None available at the time of this dictation. FINDINGS: Cholecystomy clips are seen in the right upper quadrant. Degenerative changes are seen in the visualized skeleton. The bowel gas pattern is nonobstructive. A moderate amount of stool is noted within the large bowel. IMPRESSION: Nonobstructive bowel gas pattern. ACT 112: Negative or not required by law. Electronically signed by: Vadim Cunha M.D. 05/13/2024 9:14 AM Discharge Plan Visit Data Chief Complaint: Abdominal Pain Stated Complaint: PANCRETITIS ED Provider: Vinita Boston Discharge Problem: Abdominal pain Patient Disposition: Admitted As Inpatient Discharge Instructions Interventions: ED Discharge Assessment Last Done: 05/13/24 00:15
[2024-05-12] MEDS: SODIUM CHLORIDE 0.9% 1,000 ML IV ONE ×2 (19:43→21:22)
[2024-05-12] MEDS: FAMOTIDINE 20MG IV PUSH 20 MG/5 ML SYR IV STA (19:44)
[2024-05-12] MEDS: ACETAMINOPHEN 1,000 MG/100 ML VIAL IV STA (20:14)
[2024-05-12] MEDS: MoRPHine SULFATE 4 MG/ML 1 ML CARP\\VIAL IV STA ×2 (20:14→22:24)
[2024-05-12] MEDS: PANTOprazole 40 MG in SYRINGE 0 ML IV ONE (20:35)
[2024-05-12 20:39] LABS: Appearance Urine Clear (Clear); Bilirubin Urine Negative (Negative); Blood Urine Negative (Negative); Color Urine Yellow; Glucose Urine UA Negative (Negative); Ketones Urine Negative (Negative); Leukocyte Esterase Urine Negative (Negative); Nitrite Urine Negative (Negative); Protein Urine Negative (Negative); Urobilinogen Urine Negative (Negative); pH Urine 6.5 (4.5-7.5)
--- OUTSIDE RECORDS SUMMARY | 2024-05-12 22:47 | External Medical Summary | Summary of Care ---
Author Name Unknown Organization [facility] Address [address] [place] [address] Phone [phone] Care Team Providers Care Environmental Studies Program Director Name Role Phone Wade Bragg MD Primary Care Provider [phone] Reason for Referral * Evaluate & Treat - Unlimited Visits (Within 30 days (routine)) - Authorized Specialty Diagnoses / Procedures Referred By Contac t Referred To Contact Gastroenterology Diagnoses Chronic pancreatitis, unspecified pancreatitis type (HCC) Wade Bragg MD [address] [place] [address] Referral ID Status Reason Start Date Expiration Date Visits Requested Visits Authorized [id number] Authorized Specialty Services Required 04/10/2024 999 999 Question Answer Referral Priority Within 30 days (routine) Where should this appointment be scheduled? [facility] For what condition is the patient being referred? All Gastro Conditions Reason for Visit * Reason Comments Hospital Follow-Up Pt states that he is here from a ER follow up due to pancreatitis attacks Encounter Details Date Type Department Care Team (Late st Contact Info) Description 04/10/2024 2:20 PM EDT Office Visit [facility] [place] [address] [facility] [place] [address] Wade Bragg MD [address] [place] [address] Chronic pancreatitis, unspecified pancreatitis type (HCC)* Allergies Active Allergy Reactions Criticality Noted Date Comments Isosorbide Nitrate 07/30/2023 Severe Mirgrains documented as of this encounter (statuses as of 05/08/2024) Medications Medication Sig Dispensed Refills Start Date [...] abdominal pain 60 Capsule 5 03/30/2023 Active Sucralfate 1 GM Oral Tablet (Carafate) Take 1 Tablet by mouth 4 times a day before meals and at bedtime. 07/12/2023 Active Ezetimibe 10 MG Oral Tablet (Zetia)Indication s:Coronary artery disease involving [place] coronary artery of [place] heart without angina pectoris,Dyslipid emia, goal LDL below 130,Old ND (myocardial infarction) take 1 tablet by mouth every morning 90 Tablet 3 08/30/2023 Active Pantoprazole Sodium 40 MG Oral Tablet Delayed Release (Protonix) take 1 tablet by mouth every morning 90 Tablet 3 08/30/2023 Active Nitroglycerin 0.4 MG Sublingual Tablet Sublingual (Nitrostat)Indica tions:Coronary artery disease involving [place] coronary artery of [place] heart without angina pectoris place 1 tablet [...] 10/18/2023 Active Famotidine 40 MG Oral Tablet (Pepcid)Indicatio [...] Hour (toPROL XL)Indications:Co ronary artery disease involving [place] creek coronary artery of [place] heart without angina pectoris,Ischemic cardiomyopathy,Dy slipidemia, goal LDL below 70,Tobacco use disorder Take 1 Tablet by mouth in the morning and 1 Tablet before bedtime. 180 Tablet 3 12/30/2023 Active Spironolactone 25 MG Oral Tablet (Aldactone) Take 0.5 Tablets by mouth in the morning. 45 Tablet 3 06/21/2023 04/20/2024 Discontinue d(Medicatio n List Clean Up) Hospital, Clinic, or Other Facility Administered Medication Ordered Dose Route Frequency Start Date End Date Status albuterol sulfate (PROVENTIL) (2.5 MG/3ML) 0.083% inhalation solution 2.5 mgIndications:SOB (shortness of breath) 2.5 mg NEBULIZER Q4H PRN 03/02/2019 04/20/2024 Discontinued documented as of this encounter (statuses as of 05/08/2024) Active Problems Problem Noted Date Diagnosed Date Bradycardia 04/20/2024 Ischemic cardiomyopathy 06/22/2023 NSVT (nonsustained ventricular tachycardia) 06/[address] elevation myocardial infarction (S ANT) 06/22/2023 HFrEF (heart failure with reduced ejection fract ion) 06/22/2023 S/P angioplasty with stent 05/28/2023 Gastroesophageal reflux dise ase with esophagitis without hemorrhage 12/16/2020 Old ND (myocardial infarction) 06/27/2018 Coronary artery disease of n ative artery of [place] heart with stable angina pectoris 06/27/2018 History of acute pancreatitis 06/27/2018 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 Never true 02/15/2023 Utilities Answer Date Recorded Do you have trouble paying y our heating, water, or electric bill? (Adult - for ages 18 years and over) Not on file 03/28/2024 Is your family able to pay t he heat, water, or electric bill? (Household - for ages 0-17 years) Not on file 03/28/2024 Does your family have access to good internet? (Household - for ages 0-17 years) Not on file 03/28/2024 Social Connections Answer Date Recorded How often do you feel lonely or isolated from those around you? (Adult - for ages 18 years and over) Not on file 03/28/2024 Sex and Gender Information Value Date Recorded Sex Assigned at Male 05/27/2023 12:36 PM EDT Gender Identity Male 05/27/2023 12:36 PM EDT Sexual Orientation Straight 05/27/2023 12 :36 PM EDT Job Start Date Occupation Industry Not on file Not on file Not on file documented as of this encounter Last Filed Vital Signs Vital Sign Reading Time Taken Comments Blood Pressure 102/64 04/10/2024 2:45 PM EDT Pulse 65 04/10/2024 2:45 PM EDT Temperature 36.5 C (97.7 F) 04/10/2024 2:45 PM ED T Respiratory Rate 16 04/10/2024 2:45 PM EDT Oxygen Saturation 97% 04/10/2024 2:45 PM EDT Inhaled Oxygen Concentration - - Weight 58.2 kg (128 lb 3.2 oz) 04/10/2024 2:45 P M EDT Height 165.1 cm (5' 5") 04/10/2024 2:45 PM EDT Body Mass Index 21.33 04/10/2024 2:45 PM EDT documented in this encounter Progress Notes * Wade Bragg MD - 04/10/2024 3:21 PM EDT Subjective: Oc Cazares is a 53 year old male here today for Chief Complaint Patient presents with Hospital Follow-Up Pt states that he is here from a ER follow up due to pancreatitis attacks Pt here for ED follow up. Please see note from [facility] ED 04/28/24. Seen for pancreatitis. Pt is feeling better. He is following with gastroenterology. Appetite has improved. Denies chest pain, shortness of breath, cough, nausea, vomiting, abd pain, dysuria, urinary frequency, nocturia, fever, melena, hematochezia, peripheral edema. Past Medical History: Diagnosis Date Abdominal pain Anxiety 2011 Casanova esophagus 2016 Depression [address] [facility], was on Zoloft Dyslipidemia, goal LDL below 130 INFORMATION 07/2014 10 year risk 19% INFORMATION 09/2015 10 year cardiovascular risk of 21% INFORMATION 05/2017 10 year cardiovascular risk 18.5% Pancreatitis Past Surgical History: Procedure Laterality Date COLONOSCOPY, DIAGNOSTIC (RECTUM) 05/06/2020 internal hemorrhoids/biopsies show adenomatous polyps/recall 5 years/COLONOSCOPY FLEXIBLE PROXIMAL DIAGNOSTIC performed by Kike Gross DO at ENDOSCOPY [facility] CORONARY ANGIOGRAPHY W/LEFT HEART CATH N/A 08/10/2023 CORONARY ANGIOGRAPHY W/LEFT HEART CATH performed by Pat Monroy MD at [facility] EGD, FLEXIBLE, DIAGNOSTIC 12/25/2016 Barretts, repeat 3 yrs/ESOPHAGOGASTRODUODENOSCOPY (EGD), FLEXIBLE, TRANSORAL, DIAGNOSTIC performed by Kike Gross DO at ENDOSCOPY [facility] EGD, FLEXIBLE, DIAGNOSTIC 05/06/2020 medium sized hiatal hernia/gastritis/biopsies confirm barretts/recall 3 years/ESOPHAGOGASTRODUODENOSCOPY (EGD), FLEXIBLE, TRANSORAL, DIAGNOSTIC performed by Kike Gross DO at ENDOSCOPY [facility] EGD, FLEXIBLE, DIAGNOSTIC N/A 08/22/2021 [facility], EGD, Esophageal mucosal changes suspicious for Casanova's esopahgaus state C4-M5, gastritis, duodentitis / biopsies evid of infection know as Casanova's esophagitis/ 1 year recall EGD, FLEXIBLE, DIAGNOSTIC 09/23/2021 Barretts, pancreatic stent removed, repeat 3 yrs / [facility] EGD, W/ENDOSCOPIC US 10/18/2015 Barretts, repeat 1 yr/[facility] ERCP N/A 08/22/2021 [facility], ERCP, major papilla located partially within diverticulum, Choledocholithiasis found, 1 biliary stent placed / no specimens collected / repeat in 6 week to remove stent ERCP 09/23/2021 Choledocholithiasis / [facility] US ENDOSCOPIC N/A 08/22/2021 [facility], EUS dilation common bile duct up to 7mm, 1 stone in common bile duct, many stones in gallbladder, Pancreatic parenchymal abnormalitis, 1 benign lymph node in annie hepatis region / no specimenscollected / VASECTOMY 02/23/2003 Review of patient's allergies indicates: Allergen Reactions Imdur [Isosorbide Nitrate] Severe Mirgrains Current Outpatient Medications Medication Sig Dispense Refill Dicyclomine HCl 10 MG Oral Capsule (Bentyl) take 1 capsule by mouth twice a day if needed for abdominal pain 60 Capsule 5 Nitroglycerin 0.4 MG Sublingual Tablet Sublingual (Nitrostat) place 1 tablet under the tongue if needed every 5 minutes for chest pain for 3 doses IF NO RELIEF AFTER THIRD DOSE CALL 911. 25 Tablet 11 Famotidine 40 MG Oral Tablet (Pepcid) take 1 tablet by mouth BEFORE BEDTIME 90 Tablet 2 Brilinta 90 MG Oral Tablet Take 1 Tablet by mouth in the morning and 1 Tablet before bedtime. 180 Tablet 3 Sucralfate 1 GM Oral Tablet (Carafate) Take 1 Tablet by mouth 4 times a day before meals and at bedtime. (Patient not taking: Reported on 04/20/2024) Ezetimibe 10 MG Oral Tablet (Zetia) take 1 tablet by mouth every morning 90 Tablet 3 Pantoprazole Sodium 40 MG Oral Tablet Delayed Release (Protonix) take 1 tablet by mouth every morning 90 Tablet 3 Magnesium Oxide (Antacid) 400 MG Oral Tablet take 1 tablet by mouth IN THE MORNING 90 Tablet 3 Sertraline HCl 100 MG Oral Tablet (Zoloft) Take 1 Tablet by mouth in the morning. 90 Tablet 3 Rosuvastatin Calcium 40 MG Oral Tablet (Crestor) TAKE 1 TABLET BY MOUTH EVERY MORNING 90 Tablet 3 Aspirin 81 MG Oral Tablet Delayed Release (Aspirin Low Dose) Take 1 tablet by mouth every morning 90 Tablet 3 Metoprolol Succinate ER 25 MG Oral Tablet Extended Release 24 Hour (toPROL XL) Take 1 Tablet by mouth in the morning and 1 Tablet before bedtime. 180 Tablet 3 Losartan Potassium 25 MG Oral Tablet (Cozaar) Take 0.5 Tablets by mouth daily. 34 Tablet 11 Ondansetron 4 MG Oral Tablet Disintegrating (Zofran) Place 1 Tablet on tongue every 8 hours as needed for Nausea. dissolve on tongue. 30 Tablet 2 No current facility-administered medications for this visit. Objective: BP 102/64 | Pulse 65 | Temp 36.5 C (97.7 F) (Tympanic) | Resp 16 | Ht 1.651 m (5' 5") | Wt 58.2 kg (128 lb 3.2 oz) | SpO2 97% | BMI 21.33 kg/m | BSA 1.63 m GEN: NAD HEENT: Benign NECK: Supple with no LAD, TM, JVD CHEST: CTA B CV: RRR ABD: Soft, NT/ND, No HSM, NABS EXT: No c,c,e Assessment and Plan: Chronic pancreatitis, unspecified pancreatitis type (HCC) (Primary) - US ENDOSCOPIC; Future; Expected date: 04/10/2024 - ADULT GASTROENTEROLOGY REFERRAL OP Check-out note: Set back up with Taylor Boyer Set up with endoscopic u/s 28 min with pt and chart review Wade Bragg MD documented in this encounter Nursing Notes * Sofie Urbina LPN - 04/10/2024 2:45 PM EDT Oc Cazares is a 53 year old male who presents today for Chief Complaint Patient presents with Hospital Follow-Up Pt states that he is here from a ER follow up due to pancreatitis attacks documented in this encounter Plan of Treatment Upcoming Encounters Date Type Department Care Team (Latest Contact Info) Description 06/28/2024 10:00 AM EDT Hospital Encounter [facility], Endoscopy Room [facility] [address] [place] [id number] Kike Gross, [address] [place] [address] 06/28/2024 10:00 AM EDT - 06/28/2024 11:00 AM EDT Surgery ENDO [facility], Endoscopy Room [facility] [address] [place] [phone] Kike Gross, [address] [place] [address] ESOPHAGOGASTRODUODENOSCOPY (EGD), FLEXIBLE, TRANSORAL, ENDOSCOPIC ULTRASOUND 09/14/2024 1:30 PM EST Office Visit Gastroenterology , [facility] [address] [place] [address] Taylor Boyer CRNP [address] [place] [address] 11/16/2024 1:30 PM EST Office Visit Cardiology, [facility] [address] [place] [address] Herb Tamez DO [address] [place] [address] Scheduled Orders Name Type Priority Associated Diagnoses Orde r Schedule US ENDOSCOPIC Medical Imaging Routine Chronic pancreatitis, unspecified pancreatitis type (HCC) Expected: 04/10/2024, Expires: 05/11/2025 Scheduled Procedures Name Priority Associated Diagnoses Date/Ti me ESOPHAGOGASTRODUODENOSCOPY ( EGD), FLEXIBLE, TRANSORAL, ENDOSCOPIC ULTRASOUND Other chronic pancreatitis (HCC) 06/28/2024 10:00 AM EDT ENDOSCOPIC RETROGRADE CHOLANGIOPANCREATOGRAPHY (ERCP) DIAGNOSTIC Other chronic pancreatitis (HCC) 06/28/2024 10:00 AM EDT ESOPHAGOGASTRODUODENOSCOPY ( EGD), FLEXIBLE, TRANSORAL, DIAGNOSTIC Recall 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 COLONOSCOPY FLEXIBLE PROXIMA L DIAGNOSTIC Recall History of colonic polyps Scheduled Referrals Name Type Priority Associated Diagnoses Orde r Schedule ADULT GASTROENTEROLOGY REFERRAL OP Referral Within 30 days (routine) Chronic pancreatitis, unspecified pancreatitis type (HCC) Ordered: 04/10/2024 Health Maintenance Due Date Last Done Comments DISCUSS TOBACCO CESSATION (REFER TO SMARTSET #[id number]) 1969 Pneumococcal Vaccine: Pediatrics (0 to 5 Years) and At-Risk Patients (6 to 64 Years) (1 of 2 - PCV) 1975 Hepatitis C Screening 1987 Cologuard 2014 Fecal Occult Blood Test 2014 Sigmoidoscopy 2014 Zoster Vaccines (1 of 2) 2019 DTaP,Tdap,and Td Vaccines (2 - Td or Tdap) 12/21/2022 12/21/2012 COVID-19 Vaccine (1 - season) 2023 Depression Screening 02/16/2024 02/15/2023, 05/31/20 17 Influenza Vaccine (FLU shot) (#1) 2024 Casanova's Esophagus Surveilance 09/23/2024 09/23/2021, 08/22/2021, 05/06/2020, Additional history exists Colonoscopy 05/06/2025 05/06/2020, 05/06/2020 Colorectal Cancer Screening 05/06/2025 Hepatitis B Vaccine Completed 08/24/2011, 04/09/2011, 03/05/2011 RETIRED - COLONOSCOPY-EVERY 5 YRS AGES 18-100 Discontinued 05/06/2020, 05/06/2020 HPV (Gardasil) Vaccine Aged Out No lo nger eligible based on patient's age to complete this topic MENINGOCOCCAL (MENACTRA/MENVEO) Aged Out No longer eligible based on patient's age to complete this topic documented as of this encounter Medical Devices Not on filedocumented as of this encounter Visit Diagnoses Diagnosis Chronic pancreatitis, unspecified pancreatitis type (HCC)- Primary Other chronic pancreatitis (HCC) documented in this encounter Advance Directives * Full Code (Latest Code Status on File) Date Activated Date Inactivated Comments 08/14/2022 1:00 AM 08/17/2022 2:38 PM This order r eflects the patients wishes and were consensually agreed upon. Question Answer Comments Discussion of Advance Directives occurred with: Patient Care Teams Environmental Studies Program Director Relationship Specialty Start Date End Date Wade Bragg MD [address], [place] [id number] PCP - General Family Medicine 03/24/18 documented as of this encounter
[2024-05-12 22:48] LABS: Troponin I High Sensitivity 9.7 pg/ml (0-20)
--- OUTSIDE RECORDS SUMMARY | 2024-05-12 22:48 | External Medical Summary ---
Author Name Unknown Address Unknown Organization : Laboratory Report Ordering Provider Test Date Status YESENIA CANDELARIA 04/26/2024 09:45:34 Final Observation Date Value Abnormality Reference (Units ) Status FILARIA ANTIBODY (IGG4) 04/26/2024 09:45:34 0.56 (INDEX) Final REFERENCE RANGE: <2.50
I NTERPRETIVE CRITERIA:
<2.50 NEGATIVE
>=2.50 POSITIVE
This assay detects Filaria IgG4 associated with
infections caused by the major filarial parasites,
including Dirofilaria immitis, Wuchereria brancrofti,
Brugia malayi, and Onchocerca volvulus. Chronic filarial
infections manifesting as elephantiasis may not show
a significant IgG4 response and cannot be ruled out
using this test. Samples containing antibodies to other
nematodes, particularly Strongyloides, may cross-react
in the assay.
This test was developed and its analytical performance
characteristics have been determined by [facility]
It has not been cleared or approved by the U.S. Food and
Drug Administration. This assay has been validated pursuant
to the CLIA regulations and is used for clinical purposes.
Test performed by [facility]
[address],
[place] [address]

Records Tech: Hope Santiago MD,PHD,STU
Test Reported by [facility],
[facility],
[address] [place], [place]
David Mills M.D., Ph.D., Director of Laboratories
, [facility] [id number] Performing Location
--- NOTE | 2024-05-12 23:33 | History & Physical Report ---
Date of Service May 12, 2024 Assessment & Plan (1) Acute on chronic pancreatitis: Plan: 53-year-old male with past medical history significant for dyslipidemia, history of ST elevated [place], CAD status post stent, heart failure with reduced ejection fraction EF 35 to 40%, nonsustained ventricular tachycardia, history of bradycardia, Casanova's esophagus, GERD, tobacco use disorder, general anxiety disorder, history of recurrent pancreatitis comes because of abdominal pain. Patient states pain started at 3 PM. Bandlike in upper abdomen radiating to the back 10 in severity associated with nausea. Has chronic diarrhea. Denies any blood in the stools. Micturating okay. Denies fevers. No chest pain or shortness of breath. No dizziness. No blurred vision. No runny nose or sore throat. No difficulty swallowing. Resting comfortably. Hemodynamics are okay. Acute on chronic pancreatitis S/p EGD on 03/30/2024 which showed mild chronic gastritis There is a plan for EUS/ERCP GI was contemplating pain management for chronic abdominal pain due to pancreatitis CT scan was not done in the ER because of multiple scans in the last 1 year Will keep him n.p.o., IV fluids IV pain meds as needed Consult GI in a.m. for further recommendations History of premature CAD s/p stent On aspirin and Brilinta, statin and metoprolol succinate . Chronic systolic CHF EF 35 to 40% On metoprolol succinate and losartan And seems to has been on spironolactone Getting fluids Will monitor for volume overload Casanova's esophagus PPI Nonsustained ventricular tachycardia On metoprolol succinate Borderline tachybradycardia syndrome Possible future device implantation as per cardiology notes Ongoing tobacco abuse Needs counseling Hyperlipidemia On statin and Zetia Hypertension Metoprolol succinate and losartan and spironolactone DVT prophylaxis Lovenox Disposition MedSurg Full code History of Present Illness Chief Complaint: Abdominal pain Primary Care Provider: Wade Bragg MD 53-year-old male with past medical history significant for dyslipidemia, history of ST elevated [place], CAD status post stent, heart failure with reduced ejection fraction EF 35 to 40%, nonsustained ventricular tachycardia, history of bradycardia, Casanova's esophagus, GERD, tobacco use disorder, general anxiety disorder, history of recurrent pancreatitis comes because of abdominal pain. Patient states pain started at 3 PM. Bandlike in upper abdomen radiating to the back 06/20 in severity associated with nausea. Has chronic diarrhea. Denies any blood in the stools. Micturating okay. Denies fevers. No chest pain or shortness of breath. No dizziness. No blurred vision. No runny nose or sore throat. No difficulty swallowing. Resting comfortably. Hemodynamics are okay. Past medical history. As mentioned above Past surgical history. Colonoscopy. Cardiac cath. S/p cardiac stent. EGD. EGD with endoscopic ultrasound. ERCP. Vasectomy. Social history. Smokes half pack a day for 31 years. Currently no alcohol use. No drug use. Family history. Mother had diabetes. Stroke. Father had hypertension. Allergies Allergy/AdvReac Type Severity Reaction Status Date / Time isosorbide [From Imdur] AdvReac Severe severe Verified 05/12/24 21:26 migraine Home Medications Medication Instructions Recorded Confirmed Type nitroglycerin 0.4 mg sublingual 0.4 mg sublingual .EVERY 5 MINUTES 10/07/18 05/12/24 History tablet (Nitrostat) PRN Chest Pain dicyclomine 10 mg capsule 10 mg PO BID PRN Abdominal Pain 12/06/20 05/12/24 History ezetimibe 10 mg tablet 10 mg PO QAM 12/06/20 05/12/24 History famotidine 40 mg tablet 40 mg PO HS PRN Acid Reflux 12/06/20 05/12/24 History magnesium oxide 400 mg PO QAM 12/06/20 05/12/24 History pantoprazole 40 mg tablet,delayed 40 mg PO QAM 08/20/21 05/12/24 History release aspirin 81 mg tablet,delayed 81 mg PO QAM #30 tabs 05/24/23 05/12/24 Rx release rosuvastatin 40 mg tablet 40 mg PO QAM 06/07/23 05/12/24 History spironolactone 25 mg tablet 12.5 mg (1/2 x 25 mg) PO QAM #15 06/08/23 05/12/24 Rx tabs metoprolol succinate 25 mg 25 mg PO AMHS 07/27/23 05/12/24 History tablet,extended release 24 hr ticagrelor 90 mg tablet (Brilinta) 90 mg PO AMHS 07/27/23 05/12/24 History sertraline 100 mg tablet 100 mg PO QAM 10/21/23 05/12/24 History sucralfate 1 gram tablet 1 g PO ACHS PRN Stomach Upset 03/01/24 05/12/24 History losartan 25 mg tablet 12.5 mg PO DAILY 04/21/24 05/12/24 History ondansetron 4 mg disintegrating 4 mg PO Q6H PRN nausea and 04/21/24 05/12/24 Rx tablet vomiting #20 tabs Past Med/Surg History Problem List (Updated 05/12/24 @ 19:38 by Vinita Boston, DO) Abdominal pain (Acute) Acute on chronic pancreatitis (Acute) Epigastric abdominal pain Abdominal pain, acute (Acute) Acute pancreatitis (Acute) SVT (supraventricular tachycardia) Chest pain (Acute) Acute pancreatitis (Acute) GERD (gastroesophageal reflux disease) Chest pain (Acute) Ischemic cardiomyopathy Non-sustained ventricular tachycardia (Acute) Elevated troponin (Acute) Bradycardia (Acute) Chronic pancreatitis Sinus bradycardia Chest pain (Acute) Hematoma Tobacco abuse Recurrent pancreatitis Non-ST elevation (NSTEMI) myocardial infarction (Acute) Acute on chronic pancreatitis Abdominal pain (Acute) Lesion of pancreas Elevated lipase Pancreatitis (Acute) Chest pain (Acute) Chest pain Acute pancreatitis (Acute) Abdominal pain, periumbilical (Acute) Anemia Hypomagnesemia Hypophosphatemia Hx laparoscopic cholecystectomy (08/22/21) Laparoscopic Cholecystectomy Dr. Davidson 08/22/2021 Grade II diastolic dysfunction Barretts esophagus Acute pancreatitis (Acute) Non-ST elevation [place] (NSTEMI) (Acute) Breath shortness (Acute) DVT prophylaxis Chest pain (Acute) HLD (hyperlipidemia) RADHA (generalized anxiety disorder) CAD (coronary artery disease) (Acute) 2018-RCA stent x 2 07/2020-STEMI, s/p PCI to left circumflex with 2 MELLY. Post procedure complicated by V. fib arrest requiring defibrillation. 12/2020-NSTEMI s/p 3 Xience MELLY to the distal aspect of prior stent of the left posterior lateral branch vessel Depression GERD (gastroesophageal reflux disease) (Acute) Medical History ST elevation myocardial infarction (STEMI) COVID-29 Oct 2021 Mobitz type 2 second degree atrioventricular block Tobacco abuse Splenic infarct Surgical History History of endoscopic retrograde cholangiopancreatography x2 (08/31, 09/30) History of vasectomy Family History Mother Gallbladder disease Sister Gallbladder disease Other Diabetes Stroke Denies family history of Pancreatic disease Social History Smoking Status: Current every day smoker Tobacco Type: Cigarettes Cigarettes Per Day: 1 pck/day; Second Hand Exposure: No; Do You Dip or Chew Tobacco: No; Hx Alcohol Use: No Hx Substance Use: No Preferred Language: Faroese Communication Ability: Effective Bicycle Designer Required: No Beliefs That Will Affect Care: None marital status: Single Current Living Situation: Alone current occupational status: employed Other Information That Helps Us Care for You: No Feels Safe at Home: Yes Safety Concerns: Feels Safe At This Time Assistive Devices: None Review of Systems Review of Systems: All systems reviewed & are unremarkable except as noted in HPI & below Physical Exam Physical Exam: General- Not in distress Head- atraumatic Eyes- PERRL. ENT- oropharynx clear Neck- supple, no JVD. Lungs- clear to auscultation no wheezing or crackles. Heart- regular rhythm; no murmur, no gallop. Abdomen- normal bowel sounds, soft, diffuse tender, mild guarding no distension Extremities- no pretibial edema, no erythema seen Neuro- alert, oriented PERRL, no facial palsy; no dysarthria; moves extremities Results & Data Results & Data Vital Signs (Past 12 Hours) Vital Signs Temp Pulse Resp BP Pulse Ox O2 Del Method 05/12/24 22:00 64 20 148/91 H 98 Room Air 05/12/24 21:30 64 22 140/86 98 Room Air 05/12/24 20:31 60 22 152/94 H 97 Room Air 05/12/24 20:15 62 18 164/100 H 99 Room Air 05/12/24 19:30 63 17 144/96 H 99 Room Air 05/12/24 19:02 73 16 135/95 99 Room Air 05/12/24 19:02 58 L 05/12/24 17:52 36.8 C 77 20 154/110 H 99 Room Air Diagnostic Findings Laboratory Results WBC 6.30 K/ul (4.8-10.8) 05/12/24 18: RBC 4.44 M/uL (4.70-6.10) L 05/12/24 18:31 Hgb 14.5 g/dl (14.0-18.0) 05/12/24 18: Hct 42.8 % (42.0-52.0) 05/12/24 18: MCV 96.4 fL (80.0-100.0) 05/12/24 18: MCH 32.7 pg (25.0-34.0) 05/12/24 18: MCHC 33.9 g/dL (32.0-36.0) 05/12/24 18: RDW Std Deviation 51.3 fL (36.4-46.3) H 05/12/24 18: RDW Coeff of Mckinley 14.5 % (11.5-14.5) 05/12/24 18: Plt Count 245 K/uL (130-400) 05/12/24 18: MPV 8.9 fL (9.4-12.4) L 05/12/24 18: Immature Gran % (Auto) 0.2 % 05/12/24 18: Neut % (Auto) 50.8 % 05/12/24 18: Lymph % (Auto) 37.3 % 05/12/24 18: Bledsoe % (Auto) 7.1 % 05/12/24 18: Eos % (Auto) 3.5 % 05/12/24 18: Baso % (Auto) 1.1 % 05/12/24 18: Neut # (Auto) 3.20 K/uL (1.40-6.50) 05/12/24 18: Lymph # (Auto) 2.35 K/uL (1.20-3.40) 05/12/24 18: Bledsoe # (Auto) 0.45 K/uL (0.11-0.59) 05/12/24 18: Eos # (Auto) 0.22 K/uL (0.00-0.50) 05/12/24 18: Baso # (Auto) 0.07 K/uL (0.00-0.20) 05/12/24 18: Immature Gran # (Auto) 0.01 K/uL (0.01-0.20) 05/12/24 18:31 Sodium 138 mmol/L (136-145) 05/12/24 18:31 Potassium 3.9 mmol/L (3.5-5.1) 05/12/24 18:31 Chloride 105 mmol/L (98-107) 05/12/24 18:31 Carbon Dioxide 25 mmol/L (21-32) 05/12/24 18:31 Anion Gap 8 (3-11) 05/12/24 18:31 BUN 14 mg/dl (6-23) 05/12/24 18:31 Creatinine 0.96 mg/dl (0.6-1.4) 05/12/24 18:31 Est Cr Clr Drug Dosing 70.8 ml/min 05/12/24 18:31 Est GFR ( Amer) 103.4 ml/min 05/12/24 18:31 Est GFR (Non-Af Amer) 89.3 ml/min 05/12/24 18:31 BUN/Creatinine Ratio 14.6 (10-20) 05/12/24 18:31 Glucose 95 mg/dl (70-99(Fasting)) 05/12/24 18:31 Calcium 9.5 mg/dl (8.6-10.3) 05/12/24 18:31 Total Bilirubin 0.4 mg/dl (0.2-1.0) 05/12/24 18:31 AST 18 U/L (13-39) 05/12/24 18:31 ALT 13 U/L (7-52) 05/12/24 18:31 Alkaline Phosphatase 64 U/L (34-104) 05/12/24 18:31 Troponin I High Sens 9.7 pg/ml (0-20) 05/12/24 18:31 Total Protein 7.1 gm/dl (6.0-8.3) 05/12/24 18:31 Albumin 4.5 gm/dl (3.4-5.0) 05/12/24 18:31 Globulin 2.6 gm/dl (2.5-4.0) 05/12/24 18:31 Albumin/Globulin Ratio 1.7 (0.9-2) 05/12/24 18:31 Lipase 46 U/L (11-82) 05/12/24 18:31 Urine Color Yellow 05/12/24 20:18 Urine Appearance Clear (Clear) 05/12/24 20:18 Urine pH 6.5 (4.5-7.5) 05/12/24 20:18 Ur Specific [place] 1.010 (1.000-1.030) 05/12/24 20:18 Urine Protein Negative (Negative) 05/12/24 20:18 Urine Glucose (UA) Negative (Negative) 05/12/24 20:18 Urine Ketones Negative (Negative) 05/12/24 20:18 Urine Blood Negative (Negative) 05/12/24 20:18 Urine Nitrite Negative (Negative) 05/12/24 20:18 Urine Bilirubin Negative (Negative) 05/12/24 20:18 Urine Urobilinogen Negative (Negative) 05/12/24 20:18 Ur Leukocyte Esterase Negative (Negative) 05/12/24 20:18 ECG Additional Comments: ECG. Sinus bradycardia with sinus arrhythmia at rate of 58. No significant change was found. Code Status & VTE Plan VTE Prophylaxis Plan VTE Prophylaxis will be ordered: Yes
[2024-05-13] MEDS ORDERED: NITROGLYCERIN SL 0.4 MG/TAB TAB SL PRN (00:46)
[2024-05-13] MEDS ORDERED: FAMOTIDINE 40 MG TABLET PO PRN (00:46)
[2024-05-13] MEDS ORDERED: ONDANSETRON INJ 2 MG/ML 2 ML VIAL IV PRN (00:46)
[2024-05-13] MEDS ORDERED: DICYCLOMINE HCL 10 MG CAP PO PRN (00:46)
[2024-05-13] MEDS: HYDROmorphone INJ 0.5 MG/0.5 ML SYR IV PRN (01:03)
[2024-05-13] MEDS: LACTATED RINGER'S 1,000 ML IV SCH (01:03)
[2024-05-13] MEDS: ENOXAPARIN INJ 40 MG/0.4 ML SYR SQ SCH (01:05)
[2024-05-13 06:20] LABS: Basophils # (auto) 0.06 K/uL (0.00-0.20); Basophils % (auto) 1.1 %; Eosinophils # (auto) 0.17 K/uL (0.00-0.50); Eosinophils % (auto) 3.1 %; Hematocrit (blood only) 39.9 % (42.0-52.0); Hemoglobin 13.4 g/dl (14.0-18.0); Immature Granulocytes # (auto) 0.01 K/uL (0.01-0.20); Immature Granulocytes % (auto) 0.2 %; Lymphocytes # (auto) 1.84 K/uL (1.20-3.40); Lymphocytes % (auto) 33.9 %; Mean Corpuscular Hemoglobin 33.3 pg (25.0-34.0); Mean Corpuscular Hgb Conc 33.6 g/dL (32.0-36.0); Mean Platelet Volume 9.1 fL (9.4-12.4); Monocytes # (auto) 0.38 K/uL (0.11-0.59); Neutrophils # (auto) 2.97 K/uL (1.40-6.50); Neutrophils % (auto) 54.7 %; Platelet Count 215 K/uL (130-400); RDW Coefficient of Variation 14.7 % (11.5-14.5); RDW Standard Deviation 54.3 fL (36.4-46.3); Red Blood Count 4.03 M/uL (4.70-6.10); White Blood Count 5.43 K/ul (4.8-10.8)
[2024-05-13 06:39] LABS: BUN Creatinine Ratio 11.4 (10-20); Calcium 8.8 mg/dl (8.6-10.3); Creatinine Clr Calc Pharmacy 77.2 ml/min; Est GFR (African American) 112.9 ml/min; Est GFR (Non-African American) 97.4 ml/min; Potassium 4.2 mmol/L (3.5-5.1)
--- NOTE | 2024-05-13 06:41 | Electrocardiogram Report ---
Test Reason : Blood Pressure : / mmHG Vent. Rate : 058 BPM Atrial Rate : 058 BPM P-R Int : 122 ms QRS Dur : 086 ms QT Int : 408 ms P-R-T Axes : 067 002 033 degrees QTc Int : 400 ms Sinus bradycardia with sinus arrhythmia possible Inferior infarct (cited on or before 10-JUL-2023) Incomplete right bundle branch block Abnormal ECG When compared with ECG of 28-APR-2024 23:08, No significant change was found Confirmed by Dariel Parada ([id number]) on 05/13/2024 6:41:41 AM Referred By: REFERRED SELF Confirmed By:Johnny Parada
[2024-05-13] MEDS: EZETIMIBE 10 MG TAB PO SCH (08:47)
[2024-05-13] MEDS: LOSARTAN POTASSIUM 25 MG TAB PO SCH (08:47)
[2024-05-13] MEDS: ASPIRIN 81 MG ECTAB PO SCH (08:47)
[2024-05-13] MEDS: METOPROLOL SUCC 25MG EXT REL TAB PO SCH (08:49)
[2024-05-13] MEDS: ROSUVASTATIN CALCIUM 20 MG TAB PO SCH (08:49)
[2024-05-13] MEDS: PANTOprazole 40 MG TAB PO SCH (08:49)
[2024-05-13] MEDS: MAGNESIUM OXIDE 400 MG TAB PO SCH (08:49)
[2024-05-13] MEDS: TICAGRELOR 90 MG TAB PO SCH (08:50)
[2024-05-13] MEDS: SPIRONOLACTONE 12.5 MG TAB PO SCH (08:50)
[2024-05-13] MEDS: SERTRALINE HCL 100 MG TABLET PO SCH (08:50)
--- NOTE | 2024-05-13 09:16 | XRay Report ---
XR KUB/Abdomen 1 view CLINICAL HISTORY: abd pain TECHNIQUE: 1 view of the abdomen was obtained. Comparison: None available at the time of this dictation. FINDINGS: Cholecystomy clips are seen in the right upper quadrant. Degenerative changes are seen in the visuali zed skeleton. The bowel gas pattern is nonobstructive. A moderate amount of stool is noted within the large bowel. IMPRESSION: Nonobstructive bowel gas pattern. ACT 112: Negative or not required by law. Electronically signed by: Vadim Cunha M.D. 05/13/2024 9:14 AM
--- NOTE | 2024-05-13 11:23 | Discharge Summary ---
Discharge Summary Date of Service May 13, 2024 Principal Dx & Hospital Course #1 = Principal Diagnosis (1) Acute on chronic pancreatitis: Mr. Cazares is a 53-year-old male with past medical history significant for dyslipidemia, history of ST elevated [place], CAD status post stent, heart failure with reduced ejection fraction EF 35 to 40%, nonsustained ventricular tachycardia, history of bradycardia, Casanova's esophagus, GERD, tobacco use disorder, general anxiety disorder, history of recurrent pancreatitis comes because of abdominal pain. There was concern for acute on chronic pancreatitis, however, lipase normal. Patient undergoing multiple workups and has established with [facility]. Patient symptoms resolved with IVF and liquid diet and patient eager to dispo and keep appointments as OP Patient denies nausea, vomiting or any concerns the morning of dispo #Acute on chronic pancreatitis, possible #Acute gastritis flare S/p EGD on 03/30/2024 which showed mild chronic gastritis There is a plan for EUS/ERCP GI was contemplating pain management for chronic abdominal pain due to pancreatitis Awaiting for referral/scheduling at this time CT scan was not done in the ER because of multiple scans in the last 1 year Patient wishes to forgo GI appointment and to keep OP appointments. Patient tolerating CLD and will continue with a bland diet as this has always helped previously Increase PPI BID, encourage PO intake, sucralfate prn #CAD s/p stent On aspirin and Brilinta, statin and metoprolol succinate . #Chronic systolic CHF EF 35 to 40% On metoprolol succinate losartan spironolactone resume #Casanova's esophagus PPI #Nonsustained ventricular tachycardia On metoprolol succinate Borderline tachybradycardia syndrome Possible future device implantation as per cardiology notes stable while admitted #Ongoing tobacco abuse declined any cessation at this time #Hyperlipidemia On statin and Zetia #Hypertension Metoprolol succinate and losartan and spironolactone Notes For Next Care Provider Medication Changes From Visit Increased PPI BID Admission HPI Per Admitting Provider 53-year-old male with past medical history significant for dyslipidemia, history of ST elevated [place], CAD status post stent, heart failure with reduced ejection fraction EF 35 to 40%, nonsustained ventricular tachycardia, history of bradycardia, Casanova's esophagus, GERD, tobacco use disorder, general anxiety disorder, history of recurrent pancreatitis comes because of abdominal pain. Patient states pain started at 3 PM. Bandlike in upper abdomen radiating to the back 9/10 in severity associated with nausea. Has chronic diarrhea. Denies any blood in the stools. Micturating okay. Denies fevers. No chest pain or shortness of breath. No dizziness. No blurred vision. No runny nose or sore throat. No difficulty swallowing. Resting comfortably. Hemodynamics are okay. Past medical history. As mentioned above Past surgical history. Colonoscopy. Cardiac cath. S/p cardiac stent. EGD. EGD with endoscopic ultrasound. ERCP. Vasectomy. Social history. Smokes half pack a day for 31 years. Currently no alcohol use. No drug use. Family history. Mother had diabetes. Stroke. Father had hypertension. Admission Exam Per Admitting Provider General- Not in distress Head- atraumatic Eyes- PERRL. ENT- oropharynx clear Neck- supple, no JVD. Lungs- clear to auscultation no wheezing or crackles. Heart- regular rhythm; no murmur, no gallop. Abdomen- normal bowel sounds, soft, diffuse tender, mild guarding no distension Extremities- no pretibial edema, no erythema seen Neuro- alert, oriented PERRL, no facial palsy; no dysarthria; moves extremities Discharge Exam Constitutional WD/WN, vitals as above Respiratory normal respiratory effort, lungs clear to auscultation Cardiovascular RRR, no murmur, no edema Gastrointestinal (Abdomen) normal bowel sounds, soft, nontender, no hepatosplenomegaly Musculoskeletal no cyanosis or clubbing, extremities motor strength 5/5 Updated Medication List Medication Instructions Recorded Confirmed Type nitroglycerin 0.4 mg sublingual 0.4 mg sublingual .EVERY 5 MINUTES 10/07/18 05/12/24 History tablet (Nitrostat) PRN Chest Pain dicyclomine 10 mg capsule 10 mg PO BID PRN Abdominal Pain 12/06/20 05/12/24 History ezetimibe 10 mg tablet 10 mg PO QAM 12/06/20 05/12/24 History famotidine 40 mg tablet 40 mg PO HS PRN Acid Reflux 12/06/20 05/12/24 History magnesium oxide 400 mg PO QAM 12/06/20 05/12/24 History aspirin 81 mg tablet,delayed 81 mg PO QAM #30 tabs 05/24/23 05/12/24 Rx release rosuvastatin 40 mg tablet 40 mg PO QAM 06/07/23 05/12/24 History spironolactone 25 mg tablet 12.5 mg (1/2 x 25 mg) PO QAM #15 06/08/23 05/12/24 Rx tabs metoprolol succinate 25 mg 25 mg PO AMHS 07/27/23 05/12/24 History tablet,extended release 24 hr ticagrelor 90 mg tablet (Brilinta) 90 mg PO AMHS 07/27/23 05/12/24 History sertraline 100 mg tablet 100 mg PO QAM 10/21/23 05/12/24 History losartan 25 mg tablet 12.5 mg PO DAILY 04/21/24 05/12/24 History ondansetron 4 mg disintegrating 4 mg PO Q6H PRN nausea and 04/21/24 05/12/24 Rx tablet vomiting #20 tabs pantoprazole 40 mg tablet,delayed 40 mg PO BID #60 tabs 05/13/24 Rx release sucralfate 1 gram tablet 1 g PO ACHS PRN Stomach Upset #120 05/13/24 Rx tabs Hospital Stay Data Consultations 05/12/24 22:10 ED Decision to Admit Stat Pending Results Patient Have Any Pending Studies at Discharge: No Discharge Instructions Given to Patient (Per Discharging Provider) You were admitted for concerns of abdominal pain. You have multiple ongoing contributing factors and you are established to follow up with your GI doctors. Please adhere to a soft, bland diet. Please increase your protonix (pantoprazole) to 40mg two times a day Total Time Total Time Spent Total Time Spent (In Minutes): 35
== END 2024-05-13 13:01 | disposition home or self-care (01) | DRG 439 ==
LOC: ED 17:49 → 3N 23:13

== ENCOUNTER 2024-06-24 19:12 | Observation (INO) ==
--- OUTSIDE RECORDS SUMMARY | 2024-06-24 19:17 | External Medical Summary | Summary of Care ---
Author Name Unknown Organization [facility] Address [address] [place] [address] Phone [phone] Care Team Providers Care Hedge Fund Accountant Name Role Phone Wade Bragg MD Primary Care Provider [phone] Encounter Details Date Type Department Care Team (Late st Contact Info) Description 06/13/2024 Telephone Gastroenterology, [facility] [address] [place] [address] Kike Gross, [address] [place] [address] Allergies Active Allergy Reactions Criticality Noted Date Comments Isosorbide Nitrate 07/30/2023 Severe Mirgrains documented as of this encounter (statuses as of 06/13/2024) Medications Medication Sig Dispensed Refills Start Date End Date Status Brilinta 90 MG Oral TabletIndications:NST MARY (non-ST [...] 07/12/2023 Active Ezetimibe 10 MG Oral Tablet (Zetia)Indications:Co ronary artery disease involving cocopah coronary artery of cocopah heart without angina pectoris,Dyslipidemia , goal LDL below 130,Old OR (myocardial infarction) take 1 tablet by mouth every morning 90 Tablet 3 08/30/2023 Active Pantoprazole Sodium 40 MG Oral Tablet Delayed Release (Protonix) take 1 tablet by mouth every morning 90 Tablet 3 08/30/2023 Active Nitroglycerin 0.4 MG Sublingual Tablet Sublingual (Nitrostat)Indication s:Coronary artery disease involving cocopah coronary artery of cocopah heart without angina pectoris place 1 tablet [...] 10/18/2023 Active Famotidine 40 MG Oral Tablet (Pepcid)Indications:B arrett's esophagus without dysplasia,Gastroesoph ageal reflux disease without esophagitis take 1 tablet by mouth BEFORE BEDTIME 90 Tablet 2 12/30/2023 Active Aspirin 81 MG Oral Tablet Delayed Release (Aspirin Low Dose) Take 1 tablet by mouth every morning 90 Tablet 3 12/30/2023 Active Metoprolol Succinate ER 25 MG Oral Tablet Extended Release 24 Hour (toPROL XL)Indications:Saavedra ry artery disease involving cocopah coronary artery of cocopah heart without angina pectoris,Ischemic cardiomyopathy,Dyslip idemia, goal LDL below 70,Tobacco use disorder Take 1 Tablet by mouth in the morning and 1 Tablet before bedtime. 180 Tablet 3 12/30/2023 Active Losartan Potassium 25 MG Oral Tablet (Cozaar) Take 0.5 Tablets by mouth daily. 34 Tablet 11 04/20/2024 Active Ondansetron 4 MG Oral Tablet Disintegrating (Zofran) Place 1 Tablet on tongue every 8 hours as needed for Nausea. dissolve on tongue. 30 Tablet 2 04/26/2024 Active documented as of this encounter (statuses as of 06/13/2024) Active Problems Problem Noted Date Diagnosed Date Bradycardia 04/20/2024 Ischemic cardiomyopathy 06/22/2023 NSVT (nonsustained ventricular tachycardia) 06/[address] elevation myocardial infarction (S ANT) 06/22/2023 HFrEF (heart failure with reduced ejection fract ion) 06/22/2023 S/P angioplasty with stent 05/28/2023 Gastroesophageal reflux dise ase with esophagitis without hemorrhage 12/16/2020 Old OR (myocardial infarction) 06/27/2018 Coronary artery disease of n ative artery of cocopah heart with stable angina pectoris 06/27/2018 History of acute pancreatitis 06/27/2018 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 Dyslipidemia, goal LDL below 70 09/18/2013 Generalized anxiety disorder 03/09/2013 Tobacco use disorder 01/03/2013 documented as of this encounter (statuses as of 06/13/2024) Resolved Problems Problem Noted Date Diagnosed Date [...] as of this encounter (statuses as of 06/13/2024) Immunizations Name Administration Dates Next Due Hepatitis [...] Encounter [facility], Endoscopy Room [facility] [address] [facility] [place] [id number] Kike Gross, DO [address] [place] [address] 06/28/2024 10:00 AM EDT - 06/28/2024 11:00 AM EDT Surgery ENDO [facility], Endoscopy Room [facility] [address] [place] [phone] Kike Gross, DO [address] [place], [place] [address] ESOPHAGOGASTRODUODENOSCOPY (EGD), FLEXIBLE, TRANSORAL, ENDOSCOPIC ULTRASOUND 09/14/2024 1:30 PM EST Office Visit Gastroenterology , [facility] [address] [place] [address] Taylor Boyer CRNP [address] [place] [address] 11/16/2024 1:30 PM EST Office Visit Cardiology, [facility] [address] [place] [address] Herb Tamez, DO [address] [place] [address] Scheduled Procedures Name Priority Associated Diagnoses Date/Ti [...] Comments DISCUSS TOBACCO CESSATION (REFER TO SMARTSET #4952) 1969 Pneumococcal Vaccine: Pediatrics (0 to 5 Years) and At-Risk Patients (6 to 64 Years) (1 of 2 - PCV) 1975 Hepatitis C Screening 1987 Cologuard 2014 Fecal Occult Blood Test 2014 Sigmoidoscopy 2014 Zoster Vaccines (1 of 2) 2019 DTap/Tdap Vaccines (2 - Td or Tdap) 12/21/2022 12/21/2012 Depression Screening 02/16/2024 02/15/2023, 05/31/20 17 COVID-19 Vaccine (1 - season) 2024 Influenza Vaccine (FLU shot) (#1) 2024 Casanova's [...] Advance Directives occurred with: Patient Care Teams Hedge Fund Accountant Relationship Specialty Start Date End Date Wade Bragg MD [address] [place] [address] PCP - General Family Medicine 03/24/18 documented as of this encounter
--- OUTSIDE RECORDS SUMMARY | 2024-06-24 19:17 | External Medical Summary | Summary of Care ---
Author Name Unknown Organization [facility] Address [address] [place] [address] Phone [phone] Care Team Providers Care Roll On Man Name Role Phone Wade Bragg MD Primary Care Provider +1- [phone] Reason for Visit * Reason Onset Date Comments Other 06/01/2024 Encounter Details Date Type Department Care Team (Late st Contact Info) Description 06/01/2024 Telephone Access Center, [facility] [address] [facility] *DO NOT REMOVE THIS DEPARTMENT* [place] [address] Services, Scheduling [address] [place] [address] Other Allergies Active Allergy Reactions Criticality Noted Date Comments Isosorbide Nitrate 07/30/2023 Severe Mirgrains documented as of this encounter (statuses as of 06/09/2024) Medications Medication Sig Dispensed Refills Start Date [...] Oral Tablet (Zetia)Indications:Co ronary artery disease involving [place] coronary artery of [place] heart without angina pectoris,Dyslipidemia , goal LDL below 130,Old [place] (myocardial infarction) take 1 tablet by mouth every morning 90 Tablet 3 08/30/2023 Active Pantoprazole Sodium 40 MG Oral Tablet Delayed Release (Protonix) take 1 tablet by mouth every morning 90 Tablet 3 08/30/2023 Active Nitroglycerin 0.4 MG Sublingual Tablet Sublingual (Nitrostat)Indication s:Coronary artery disease involving [place] coronary artery of [place] heart without angina pectoris place 1 tablet [...] Hour (toPROL XL)Indications:Saavedra ry artery disease involving [place] coronary artery of [place] heart without angina pectoris,Ischemic cardiomyopathy,Dyslip idemia, goal [...] as of this encounter (statuses as of 06/09/2024) Active Problems Problem Noted Date Diagnosed Date Bradycardia 04/20/2024 Ischemic cardiomyopathy 06/22/2023 NSVT (nonsustained ventricular tachycardia) 06/[address] elevation myocardial infarction (S NAT) 06/22/2023 HFrEF (heart failure with reduced ejection fract ion) 06/22/2023 S/P angioplasty with stent 05/28/2023 Gastroesophageal reflux dise ase with esophagitis without hemorrhage 12/16/2020 Old [place] (myocardial infarction) 06/27/2018 Coronary artery disease of n ative artery of [place] heart with stable angina pectoris 06/27/2018 History of acute pancreatitis 06/27/2018 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 LVM with clinicnumber to call. * Telephone Encounter - Neda Hamilton OSA - 06/01/2024 12:19 PM EDT Pt has a referral for the pharmacy documented in this encounter Plan of Treatment Upcoming Encounters Date Type Department Care Team (Latest Contact Info) Description 06/28/2024 10:00 AM EDT Hospital Encounter ENDO [facility], Endoscopy Room [facility] [address] [place] [address] Kike Gross, DO [address] [place] [address] 06/28/2024 10:00 AM EDT - 06/28/2024 11:00 AM EDT Surgery ENDO [facility], Endoscopy Room [facility] [address] [place] [address] Kike Gross, DO [address] [place] [address] ESOPHAGOGASTRODUODENOSCOPY (EGD), FLEXIBLE, TRANSORAL, ENDOSCOPIC ULTRASOUND 09/14/2024 1:30 PM EST Office Visit Gastroenterology , [facility] [address] [place] [address] Taylor Boyer CRNP [address] [place] [address] 11/16/2024 1:30 PM EST Office Visit Cardiology, [facility] [address] [place] [address] Herb Tamez, DO [address] [place] [address] Scheduled Procedures Name Priority Associated Diagnoses Date/Ti [...] Comments DISCUSS TOBACCO CESSATION (REFER TO SMARTSET #2539) 1969 Pneumococcal Vaccine: Pediatrics (0 to 5 [...] Advance Directives occurred with: Patient Care Teams Roll On Man Relationship Specialty Start Date End Date Wade Bragg MD [address] [place] [address] PCP - General Family Medicine 03/24/18 documented as of this encounter
--- OUTSIDE RECORDS SUMMARY | 2024-06-24 19:17 | External Medical Summary | Summary of Care ---
Author Name Unknown Organization [facility] Address [address] [place] [place] [place] [address] Phone [phone] Care Team Providers Care Tire Repair Mechanic Name Role Phone Wade Bragg MD Primary Care Provider +1- [phone] Encounter Details Date Type Department Care Team (Late st Contact Info) Description 06/12/2024 Result Scan Unspecified Department <No scans attached> Allergies Active Allergy Reactions Criticality Noted Date [...] Oral Tablet (Zetia)Indications:Co ronary artery disease involving [place] coronary artery of [place] heart without angina pectoris,Dyslipidemia , goal LDL below 130,Old [place] (myocardial infarction) take 1 tablet by mouth every morning 90 Tablet 3 08/30/2023 Active Pantoprazole Sodium 40 MG Oral Tablet Delayed Release (Protonix) take 1 tablet by mouth every morning 90 Tablet 3 08/30/2023 Active Nitroglycerin 0.4 MG Sublingual Tablet Sublingual (Nitrostat)Indication s:Coronary artery disease involving [place] coronary artery of [place] heart without angina pectoris place 1 tablet [...] Hour (toPROL XL)Indications:Saavedra ry artery disease involving [place] coronary artery of [place] heart without angina pectoris,Ischemic cardiomyopathy,Dyslip idemia, goal [...] ase with esophagitis without hemorrhage 12/16/2020 Old [place] (myocardial infarction) 06/27/2018 Coronary artery disease of n ative artery of [place] heart with stable angina pectoris 06/27/2018 History [...] EDT Hospital Encounter ENDO [facility], Endoscopy Room [facility] [address] [place] [address] Kike Gross DO [address] [place] [address] 06/28/2024 10:00 AM EDT - 06/28/2024 11:00 AM EDT Surgery ENDO [facility], Endoscopy Room [facility] [address] [place] [phone] Kike Gross, DO [address] [place], [place] [address] ESOPHAGOGASTRODUODENOSCOPY (EGD), FLEXIBLE, TRANSORAL, ENDOSCOPIC ULTRASOUND 09/14/2024 1:30 PM EST Office Visit Gastroenterology , [facility] [address] [place] [address] Taylor Boyer CRNP [address] [place] [address] 11/16/2024 1:30 PM EST Office Visit Cardiology, [facility] [address] [place] [address] Herb Tamez, DO [address] [place] [address] Scheduled Procedures Name Priority Associated Diagnoses Date/Ti [...] Comments DISCUSS TOBACCO CESSATION (REFER TO SMARTSET #0198) 1970 Pneumococcal Vaccine: Pediatrics (0 to 5 Years) and At-Risk Patients (6 to 64 Years) (1 of 2 - PCV) 1975 Hepatitis C Screening 1987 Cologuard 2014 Fecal Occult Blood Test 2014 Sigmoidoscopy 2014 Zoster Vaccines (1 of 2) 2019 DTap/Tdap Vaccines (2 - Td or Tdap) 12/21/2022 12/21/2012 Depression Screening 02/16/2024 02/15/2023, 05/31/20 17 COVID-19 Vaccine (2022- season) 2024 Influenza Vaccine (FLU shot) (#1) [...] Procedure Name Priority Date/Time Associated Diagnosis Comments RADIOLOGY SCANNED RESULT 06/12/2024 documented in this encounter Results * RADIOLOGY SCANNED RESULT (06/12/2024) 06/12/2024 No Physician Data Unknown DIAGNOSTIC RAD IOLOGY SERVICES documented in this encounter Advance Directives * Full Code (Latest Code Status on File) Date Activated Date Inactivated Comments 08/14/2022 1:00 AM 08/17/2022 2:38 PM This order r eflects the patients wishes and were consensually agreed upon. Question Answer Comments Discussion of Advance Directives occurred with: Patient Care Teams Tire Repair Mechanic Relationship Specialty Start Date End Date Wade Bragg MD [address] [place] [address] PCP - General Family Medicine 03/24/18 documented as of this encounter
--- OUTSIDE RECORDS SUMMARY | 2024-06-24 19:17 | External Medical Summary | Summary of Care ---
Author Name Unknown Organization [facility] Address [address] [place] [address] Phone [phone] Care Team Providers Care Research Assoc Name Role Phone Wade Bragg MD Primary Care Provider +1- [phone] Reason for Visit * Reason Onset Date Comments Referral 05/30/2024 Encounter Details Date Type Department Care Team (Late st Contact Info) Description 05/30/2024 Telephone Medical Pain Management [facility] [address] [place], [place] [id number] Carly Porter CRNP [address] [place], [place] [id number] Referral Allergies Active Allergy Reactions Criticality Noted Date Comments Isosorbide Nitrate 07/30/2023 Severe Mirgrains documented as of this encounter (statuses as of 05/30/2024) Medications Medication Sig Dispensed Refills Start Date [...] Oral Tablet (Zetia)Indications:Co ronary artery disease involving [place] coronary artery of [place] heart without angina pectoris,Dyslipidemia , goal LDL below 130,Old [place] (myocardial infarction) take 1 tablet by mouth every morning 90 Tablet 3 08/30/2023 Active Pantoprazole Sodium 40 MG Oral Tablet Delayed Release (Protonix) take 1 tablet by mouth every morning 90 Tablet 3 08/30/2023 Active Nitroglycerin 0.4 MG Sublingual Tablet Sublingual (Nitrostat)Indication s:Coronary artery disease involving [place] coronary artery of [place] heart without angina pectoris place 1 tablet [...] Hour (toPROL XL)Indications:Saaved[place] ry artery disease involving [place] coronary artery of [place] heart without angina pectoris,Ischemic cardiomyopathy,Dyslip idemia, goal [...] as of this encounter (statuses as of 05/30/2024) Active Problems Problem Noted Date Diagnosed Date Bradycardia 04/20/2024 Ischemic cardiomyopathy 06/22/2023 NSVT (nonsustained ventricular tachycardia) 06/[address] elevation myocardial infarction (S ANT) 06/22/2023 HFrEF (heart failure with reduced ejection fract ion) 06/22/2023 S/P angioplasty with stent 05/28/2023 Gastroesophageal reflux dise ase with esophagitis without hemorrhage 12/16/2020 Old [place] (myocardial infarction) 06/27/2018 Coronary artery disease of n ative artery of [place] heart with stable angina pectoris 06/27/2018 History of acute pancreatitis 06/27/2018 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 LVM with clinicnumber to call for further information about the referral or to schedule a telephonic visit for orientation. documented in this encounter Plan of Treatment Upcoming Encounters Date Type Department Care Team (Latest Contact Info) Description 06/28/2024 10:00 AM EDT Hospital Encounter ENDO [facility], Endoscopy Room [facility] [address] [place] [address] Kike Gross, DO [address] [place] [address] 06/28/2024 10:00 AM EDT - 06/28/2024 11:00 AM EDT Surgery ENDO [facility], Endoscopy Room [facility] [address] [place] [address] Kike Gross, DO [address] [place] [address] ESOPHAGOGASTRODUODENOSCOPY (EGD), FLEXIBLE, TRANSORAL, ENDOSCOPIC ULTRASOUND 09/14/2024 1:30 PM EST Office Visit Gastroenterology , [facility] [address] [place] [address] Taylor Boyer CRNP [address] [place] [address] 11/16/2024 1:30 PM EST Office Visit Cardiology, [facility] [address] [place] [address] Herb Tamez, DO [address] [place] [address] Scheduled Procedures Name Priority Associated Diagnoses Date/Ti [...] Comments DISCUSS TOBACCO CESSATION (REFER TO SMARTSET #6103) 1969 Pneumococcal Vaccine: Pediatrics (0 to 5 Years) and At-Risk Patients (6 to 64 Years) (1 of 2 - PCV) 1975 Hepatitis C Screening 1987 Cologuard 2014 Fecal Occult Blood Test 2014 Sigmoidoscopy 2014 Zoster Vaccines (1 of 2) 2019 DTaP,Tdap,and Td Vaccines (2 - Td or Tdap) 12/21/2022 12/21/2012 COVID-19 Vaccine (1 - 24 season) 2023 Depression Screening 02/16/2024 02/15/2023, 05/31/20 [...] Advance Directives occurred with: Patient Care Teams Research Assoc Relationship Specialty Start Date End Date Wade Bragg MD [address] [place] [address] PCP - General Family Medicine 03/24/18 documented as of this encounter
--- OUTSIDE RECORDS SUMMARY | 2024-06-24 19:17 | External Medical Summary | Summary of Care ---
Author Name Unknown Organization [facility] Address [address] [place] [address] Phone [phone] Care Team Providers Care Forming Yardage Control Operator Name Role Phone Wade Bragg MD Primary Care Provider +1- [phone] Reason for Visit * Reason Onset Date Comments Referral 05/19/2024 Encounter Details Date Type Department Care Team (Late st Contact Info) Description 05/19/2024 Telephone Medical Pain Management [facility] [address] [place] [address] Carly Porter CRNP [address] [place] [address] Referral Allergies Active Allergy Reactions Criticality Noted Date Comments Isosorbide Nitrate 07/30/2023 Severe Mirgrains documented as of this encounter (statuses as of 05/19/2024) Medications Medication Sig Dispensed Refills Start Date [...] Oral Tablet (Zetia)Indications:Co ronary artery disease involving [place] coronary artery of [place] heart without angina pectoris,Dyslipidemia , goal LDL below 130,Old [place] (myocardial infarction) take 1 tablet by mouth every morning 90 Tablet 3 08/30/2023 Active Pantoprazole Sodium 40 MG Oral Tablet Delayed Release (Protonix) take 1 tablet by mouth every morning 90 Tablet 3 08/30/2023 Active Nitroglycerin 0.4 MG Sublingual Tablet Sublingual (Nitrostat)Indication s:Coronary artery disease involving [place] coronary artery of [place] heart without angina pectoris place 1 tablet [...] Hour (toPROL XL)Indications:Saavedra ry artery disease involving [place] coronary artery of [place] heart without angina pectoris,Ischemic cardiomyopathy,Dyslip idemia, goal [...] as of this encounter (statuses as of 05/19/2024) Active Problems Problem Noted Date Diagnosed Date Bradycardia 04/20/2024 Ischemic cardiomyopathy 06/22/2023 NSVT (nonsustained ventricular tachycardia) 06/[address] elevation myocardial infarction (S ANT) 06/22/2023 HFrEF (heart failure with reduced ejection fract ion) 06/22/2023 S/P angioplasty with stent 05/28/2023 Gastroesophageal reflux dise ase with esophagitis without hemorrhage 12/16/2020 Old [place] (myocardial infarction) 06/27/2018 Coronary artery disease of n ative artery of [place] heart with stable angina pectoris 06/27/2018 History of acute pancreatitis 06/27/2018 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 LVM with clinicnumber to call for further information about the referral or to schedule a telephonic visit for orientation. documented in this encounter Plan of Treatment Upcoming Encounters Date Type Department Care Team (Latest Contact Info) Description 05/29/2024 11:00 AM EDT Office Visit [facility] [address] [facility], [place] [address] Wade Bragg MD [address] [facility], [place] [address] 06/28/2024 10:00 AM EDT Hospital Encounter ENDO [facility], Endoscopy Room [facility] [address] [place] [phone] Kike Gross, DO [address] [place] [address] 06/28/2024 10:00 AM EDT - 06/28/2024 11:00 AM EDT Surgery ENDO [facility], Endoscopy Room [facility] [address] [place] [phone] Kike Gross, DO [address] [place] [address] ESOPHAGOGASTRODUODENOSCOPY (EGD), FLEXIBLE, TRANSORAL, ENDOSCOPIC ULTRASOUND 09/14/2024 1:30 PM EST Office Visit Gastroenterology , [facility] [address] [place] [address] Taylor Boyer CRNP [address] [place] [address] 11/16/2024 1:30 PM EST Office Visit Cardiology, [facility] [address] [place] [address] Herb Tamez, DO [address] [place] [address] Scheduled Procedures Name Priority Associated Diagnoses Date/Ti [...] Comments DISCUSS TOBACCO CESSATION (REFER TO SMARTSET #6950) 1969 Pneumococcal Vaccine: Pediatrics (0 to 5 [...] Advance Directives occurred with: Patient Care Teams Forming Yardage Control Operator Relationship Specialty Start Date End Date Wade Bragg MD [address] [facility] [place] [address] PCP - General Family Medicine 03/24/18 documented as of this encounter
--- OUTSIDE RECORDS SUMMARY | 2024-06-24 19:17 | External Medical Summary | Summary of Care ---
Author Name Unknown Organization [facility] Address [address] [place] [address] Phone [phone] Care Team Providers Care Battery Container Tester Aluminum Name Role Phone Wade Bragg MD Primary Care Provider +1- [phone] Reason for Visit * Reason Onset Date Comments Referral 05/19/2024 Encounter Details Date Type Department Care Team (Late st Contact Info) Description 05/19/2024 Telephone Medical Pain Management Sra[facility] Jorge [address] [place] [address] Carly Porter CRNP [address] [place] [address] Referral Allergies Active Allergy Reactions Criticality Noted Date Comments Isosorbide Nitrate 07/30/2023 Severe Mirgrains documented as of this encounter (statuses as of 05/24/2024) Medications Medication Sig Dispensed Refills Start Date [...] Oral Tablet (Zetia)Indications:Co ronary artery disease involving [place] coronary artery of [place] heart without angina pectoris,Dyslipidemia , goal LDL below 130,Old [place] (myocardial infarction) take 1 tablet by mouth every morning 90 Tablet 3 08/30/2023 Active Pantoprazole Sodium 40 MG Oral Tablet Delayed Release (Protonix) take 1 tablet by mouth every morning 90 Tablet 3 08/30/2023 Active Nitroglycerin 0.4 MG Sublingual Tablet Sublingual (Nitrostat)Indication s:Coronary artery disease involving [place] coronary artery of [place] heart without angina pectoris place 1 tablet [...] Hour (toPROL XL)Indications:Saavedra ry artery disease involving [place] coronary artery of [place] heart without angina pectoris,Ischemic cardiomyopathy,Dyslip idemia, goal [...] as of this encounter (statuses as of 05/24/2024) Active Problems Problem Noted Date Diagnosed Date Bradycardia 04/20/2024 Ischemic cardiomyopathy 06/22/2023 NSVT (nonsustained ventricular tachycardia) 06/[address] elevation myocardial infarction (S ANT) 06/22/2023 HFrEF (heart failure with reduced ejection fract ion) 06/22/2023 S/P angioplasty with stent 05/28/2023 Gastroesophageal reflux dise ase with esophagitis without hemorrhage 12/16/2020 Old [place] (myocardial infarction) 06/27/2018 Coronary artery disease of n ative artery of [place] heart with stable angina pectoris 06/27/2018 History of acute pancreatitis 06/27/2018 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 Dyslipidemia, goal LDL below 70 09/18/2013 Generalized anxiety disorder 03/09/2013 Tobacco use disorder 01/03/2013 documented as of this encounter (statuses as of 05/24/2024) Resolved Problems Problem Noted Date Diagnosed Date [...] as of this encounter (statuses as of 05/24/2024) Immunizations Name Administration Dates Next Due Hepatitis [...] encounter Miscellaneous Notes * Telephone Encounter - Alie Bridges OSA - 05/24/2024 2:46 PM EDT Pt returning call to schedule MPP [place] 05/24/2024 2:46 PM * Telephone Encounter - Carly Porter CRNP [...] Description 05/29/2024 11:00 AM EDT Office Visit [facility] [address] [facility], [place] [address] Wade Bragg MD [address] [place] [address] 06/28/2024 10:00 AM EDT Hospital Encounter ENDO [facility], Endoscopy Room [facility] [address] [place] [phone] Kike Gross, [address] [place] [address] 06/28/2024 10:00 AM EDT - 06/28/2024 11:00 AM EDT Surgery ENDO [facility], Endoscopy Room [facility] [address] [place] [phone] Kike Gross, DO [address] [place] [address] ESOPHAGOGASTRODUODENOSCOPY (EGD), FLEXIBLE, TRANSORAL, ENDOSCOPIC ULTRASOUND 09/14/2024 1:30 PM EST Office Visit Gastroenterology , [facility] [address] [place] [address] Taylor Boyer CRNP [address] [place] [address] 11/16/2024 1:30 PM EST Office Visit Cardiology, [facility] [address] [place] [address] Herb Tamez, [address] [place] [address] Scheduled Procedures Name Priority Associated Diagnoses Date/Ti [...] Comments DISCUSS TOBACCO CESSATION (REFER TO SMARTSET #3229) 1969 Pneumococcal Vaccine: Pediatrics (0 to 5 [...] Advance Directives occurred with: Patient Care Teams Battery Container Tester Aluminum Relationship Specialty Start Date End Date Wade Bragg MD [address] [place] [address] PCP - General Family Medicine 03/24/18 documented as of this encounter
--- OUTSIDE RECORDS SUMMARY | 2024-06-24 19:17 | External Medical Summary | Summary of Care ---
Author Name Unknown Organization [facility] Address [address] [place] [address] Phone [phone] Care Team Providers Care Drop Man Name Role Phone Wade Bragg MD Primary Care Provider +1- [phone] Reason for Visit * Reason Onset Date Comments Appointment 04/27/2024 New pain referra l Encounter Details Date Type Department Care Team (Late st Contact Info) Description 04/27/2024 Telephone Interventional Pain Center, [facility] [address] [place] [address] Specified, Z[facility] No Resource [address] [place] [address] Appointment (New pain referral ) Allergies Active Allergy Reactions Criticality Noted Date [...] Oral Tablet (Zetia)Indications:Co ronary artery disease involving [place] coronary artery of [place] heart without angina pectoris,Dyslipidemia , goal LDL below 130,Old [place] (myocardial infarction) take 1 tablet by mouth every morning 90 Tablet 3 08/30/2023 Active Pantoprazole Sodium 40 MG Oral Tablet Delayed Release (Protonix) take 1 tablet by mouth every morning 90 Tablet 3 08/30/2023 Active Nitroglycerin 0.4 MG Sublingual Tablet Sublingual (Nitrostat)Indication s:Coronary artery disease involving [place] coronary artery of [place] heart without angina pectoris place 1 tablet [...] Hour (toPROL XL)Indications:Saavedra ry artery disease involving [place] coronary artery of [place] heart without angina pectoris,Ischemic cardiomyopathy,Dyslip idemia, goal [...] [place] (myocardial infarction) 06/27/2018 Coronary artery disease of n ative artery of [place] heart with stable angina pectoris 06/27/2018 History [...] medical exam 01/03/2013 018 Gastroesophageal reflux 01/03/2013 03/05/2021 Screening for cardiovascular condition 01/03/2013 05/31/2017 Vasectomy [...] Encounter - Carly Porter CRNP - 05/19/2024 12:06 PM EDT Attempted to contact patient regarding referral to Multi-disciplinary Pain Program. LVM with clinicnumbers to call. See encounter on 05/19/24. * Telephone Encounter - Arminda Stein OSA - 04/27/2024 11:47 AM EDT Referral placed yesterday office visit with Taylor please contact pt to schedule appt. documented in this encounter Plan of Treatment Upcoming Encounters Date Type Department Care Team (Latest Contact Info) Description 05/29/2024 11:00 AM EDT Office Visit [facility] [address] [facility], [place] [address] Wade Bragg MD [address] [place] [address] 06/28/2024 10:00 AM EDT Hospital Encounter ENDO OSSC, Endoscopy Room [facility] [address] [place] [phone] Kike Gross, DO [address] [place] [address] 06/28/2024 10:00 AM EDT - 06/28/2024 11:00 AM EDT Surgery ENDO OSS[facility], Endoscopy Room [facility] [address] [place] [address] Kike Gross, DO [address] [place] [address] ESOPHAGOGASTRODUODENOSCOPY (EGD), FLEXIBLE, TRANSORAL, ENDOSCOPIC ULTRASOUND 09/14/2024 1:30 PM EST Office Visit Gastroenterology , [facility] [address] [place] [address] Taylor Boyer CRNP [address] [place] [address] 11/16/2024 1:30 PM EST Office Visit Cardiology, [facility] [address] [place] [address] Herb Tamez, [address] [place] [address] Scheduled Procedures Name Priority Associated Diagnoses Date/Ti [...] Comments DISCUSS TOBACCO CESSATION (REFER TO SMARTSET #[id number]) 1969 Pneumococcal Vaccine: Pediatrics (0 to 5 [...] Advance Directives occurred with: Patient Care Teams Drop Man Relationship Specialty Start Date End Date Wade Bragg MD [address] [place] [address] PCP - General Family Medicine 03/24/18 documented as of this encounter
--- OUTSIDE RECORDS SUMMARY | 2024-06-24 19:17 | External Medical Summary | Summary of Care ---
Author Name Unknown Organization [facility] Address [address] [place] [address] Phone [phone] Care Team Providers Care Faculty Head Name Role Phone Wade Bragg MD Primary Care Provider +1- [phone] Reason for Visit * Reason Onset Date Comments Referral 05/19/2024 Encounter Details Date Type Department Care Team (Late st Contact Info) Description 05/19/2024 Telephone Medical Pain Management [facility] [address] [place] [address] Carly Porter CRNP [address] [place] [address] Referral Allergies Active Allergy Reactions Criticality Noted [...] Oral Tablet (Zetia)Indications:Co ronary artery disease involving [place] coronary artery of [place] heart without angina pectoris,Dyslipidemia , goal LDL below 130,Old [place] (myocardial infarction) take 1 tablet by mouth every morning 90 Tablet 3 08/30/2023 Active Pantoprazole Sodium 40 MG Oral Tablet Delayed Release (Protonix) take 1 tablet by mouth every morning 90 Tablet 3 08/30/2023 Active Nitroglycerin 0.4 MG Sublingual Tablet Sublingual (Nitrostat)Indication s:Coronary artery disease involving [place] coronary artery of [place] heart without angina pectoris place 1 tablet [...] Hour (toPROL XL)Indications:Saavedra ry artery disease involving [place] coronary artery of [place] heart without angina pectoris,Ischemic cardiomyopathy,Dyslip idemia, goal [...] ase with esophagitis without hemorrhage 12/16/2020 Old [place] (myocardial infarction) 06/27/2018 Coronary artery disease of n ative artery of [place] heart with stable angina pectoris 06/27/2018 History [...] encounter Miscellaneous Notes * Telephone Encounter - Calry Porter CRNP - 05/30/2024 1:06 PM EDT Attempted to contact patient regarding referral on 05/30 . See telephone encounter. * Telephone Encounter - Carly Porter CRNP - 05/30/2024 1:05 PM EDT Attempted to contact patient regarding referral to MPP program. See VM on * Telephone Encounter - Alie Bridges OSA [...] EDT Hospital Encounter ENDO OSS[facility], Endoscopy Room [facility] [address] [place] [phone] Kike Gross, DO [address] [place] [address] 06/28/2024 10:00 AM EDT - 06/28/2024 11:00 AM EDT Surgery ENDO O[facility], Endoscopy Room [facility] [address] [place] [phone] Kike Gross, DO [address] [place] [address] ESOPHAGOGASTRODUODENOSCOPY (EGD), FLEXIBLE, TRANSORAL, ENDOSCOPIC ULTRASOUND 09/14/2024 1:30 PM EST Office Visit Gastroenterology , [facility] [address] [place] [address] Taylor Boyer CRNP [address] [place] [address] 11/16/2024 1:30 PM EST Office Visit Cardiology, [facility] [address] [place] [address] Herb Tamez DO [address] [place] [address] Scheduled Procedures Name Priority Associated Diagnoses Date/Ti [...] Comments DISCUSS TOBACCO CESSATION (REFER TO SMARTSET #[id number]) 1970 Pneumococcal Vaccine: Pediatrics (0 to 5 [...] Advance Directives occurred with: Patient Care Teams Faculty Head Relationship Specialty Start Date End Date Wade Bragg MD [address] [place] [address] PCP - General Family Medicine 03/24/18 documented as of this encounter
--- OUTSIDE RECORDS SUMMARY | 2024-06-24 19:17 | External Medical Summary | Summary of Care ---
Author Name Unknown Organization [facility] Address [address] [facility] [place] [address] Phone [phone] Care Team Providers Care Dry Kiln Feeder Name Role Phone Wade Bragg MD Primary Care Provider +1- [phone] Reason for Referral * Evaluate & Treat - Unlimited Visits (Within 30 days (routine)) - Authorized Specialty Diagnoses / Procedures Referred By Contac t Referred To Contact Pharmacist / Pharmacy Diagnoses Other chronic pancreatitis (HCC) Taylor Boyer CRNP [address] [place] [address] Referral ID Status Reason Start Date Expiration Date Visits Requested Visits Authorized [id number] Authorized Specialty Services Required 05/11/2024 11/07/2024 99 99 Question Answer Referral Priority Within 30 days (routine) Where should this appointment be scheduled? [facility] Referring Provider Role: Specialist Specialty: GI/Hep Reason for Referral: Other Comments Pharmacist Medication Therapy Management: Chronic abd pain, pancreatitis Minimum frequency patient should be seen in person for medication management: as appropriate per clinical condition and patient status By my signature, I understand that my patient Oc Cazares will have his medication therapy managed by the [facility] Medication Therapy Disease Management Clinic ([facility]) per established policies, procedures, and protocols. I also certify that this referral may serve as an initiation of service for the management of drug therapy in the above noted patient. [facility] providers will be responsible for scheduling patient visits, obtaining appropriate laboratory studies, and adjusting medication management therapy per patient's need, in addition to those roles spelled out in the clinic policy, procedures, and drug management protocols. I understand that the service provided by the [facility] Clinic is voluntary and have informed patient that they can refuse the service at their discretion. I am aware that the [facility] Clinic will provide me with a copy of the patient encounter via my [facility]. I authorize the [facility] Clinic to carry out these activities on my behalf. I consider this program to be a necessary part of the patient's medical care. HAKAN Gillis Reason for Visit * Reason Onset Date Comments Advice 05/10/2024 Encounter Details Date Type Department Care Team (Late st Contact Info) Description 05/10/2024 Telephone [facility] [address] [place] [address] Wade Bragg MD [address] [place] [address] Advice Allergies Active Allergy Reactions Criticality Noted Date Comments Isosorbide Nitrate 07/30/2023 Severe Mirgrains documented as of this encounter (statuses as of 06/05/2024) Medications Medication Sig Dispensed Refills Start Date [...] angina pectoris,Dyslipidemia , goal LDL below 130,Old [place] (myocardial infarction) take 1 tablet by mouth [...] as of this encounter (statuses as of 06/05/2024) Active Problems Problem Noted Date Diagnosed Date Bradycardia 04/20/2024 Ischemic cardiomyopathy 06/22/2023 NSVT (nonsustained ventricular tachycardia) 06/[address] elevation myocardial infarction (S ANT) 06/22/2023 HFrEF (heart failure with reduced ejection fract ion) 06/22/2023 S/P angioplasty with stent 05/28/2023 Gastroesophageal reflux dise ase with esophagitis without hemorrhage 12/16/2020 Old [place] (myocardial infarction) 06/27/2018 Coronary artery disease of n ative artery of [place] heart with stable angina pectoris 06/27/2018 History of acute pancreatitis 06/27/2018 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 Dyslipidemia, goal LDL below 70 09/18/2013 Generalized anxiety disorder 03/09/2013 Tobacco use disorder 01/03/2013 documented as of this encounter (statuses as of 06/05/2024) Resolved Problems Problem Noted Date Diagnosed Date [...] as of this encounter (statuses as of 06/05/2024) Immunizations Name Administration Dates Next Due Hepatitis [...] encounter Miscellaneous Notes * Telephone Encounter - Taylor Boyer CRNP - 05/11/2024 10:32 AM EDT I changed the referral to [facility] HAKAN Gillis * Telephone Encounter - Marva Ontiveros RPh - 05/11/2024 9:25 AM EDT Need an MTM referral to discuss if pcp is willing. Marva Ontiveros, Pharm D, [facility]CP Clinical Pharmacist 05/11/2024, 9:25 AM * Telephone Encounter - Maranda Iglesias RN - 05/11/2024 9:14 AM EDT Images from the original note were not included. Racheal Higuera OSA You1 hour ago (7:51 AM) We are interventional pain management this need send to MTM. * Telephone Encounter - Maranda Iglesias RN - 05/10/2024 4:07 PM EDT Spoke to patient. He states that the cannot get scheduled for pain management until the referral is changed. States he wants to discuss pain meds with pain management and that he was told that your referral will only get him PT and meditation. Is there a way you can change the referral? I can forward this to pain management also to see what they need to schedule him. Thanks * Telephone Encounter - Farideh Ruiz OSA - 05/10/2024 3:59 PM EDT Patient stating that pain referral was coding incorrectly and sent to wrong department. He needs Pain Management for medication management. Please send correct and resend. documented in this encounter Plan of Treatment Upcoming Encounters Date Type Department Care Team (Latest Contact Info) Description 06/28/2024 10:00 AM EDT Hospital Encounter ENDO [facility], Endoscopy Room [facility] [address] [place] [phone] Kike Gross, [address] [place] [address] 06/28/2024 10:00 AM EDT - 06/28/2024 11:00 AM EDT Surgery ENDO [facility], Endoscopy Room [facility] [address] [place] [phone] Kike Gross, DO [address] [place] [address] ESOPHAGOGASTRODUODENOSCOPY (EGD), FLEXIBLE, TRANSORAL, ENDOSCOPIC ULTRASOUND 09/14/2024 1:30 PM EST Office Visit Gastroenterology , [facility] [address] [place] [address] Taylor Boyer CRNP [address] [place], [place] [address] 11/16/2024 1:30 PM EST Office Visit Cardiology, [facility] [address] [place] [address] Herb Tamez, DO [address] [place] [address] Scheduled Procedures Name Priority Associated Diagnoses Date/Ti [...] Type Priority Associated Diagnoses Orde r Schedule PHARMACIST MEDS THERAPY MGMT REFERRAL OP Referral Within 30 days (routine) Other chronic pancreatitis (HCC) Ordered: 05/11/2024 Health Maintenance Due Date Last Done Comments DISCUSS TOBACCO CESSATION (REFER TO SMARTSET #9394) 1970 Pneumococcal Vaccine: Pediatrics (0 to 5 [...] as of this encounter Visit Diagnoses Diagnosis Other chronic pancreatitis (HCC)- Primary Other chronic pancreatitis (HCC) documented in this encounter Advance Directives * Full Code (Latest Code Status on File) Date Activated Date Inactivated Comments 08/14/2022 1:00 AM 08/17/2022 2:38 PM This order r eflects the patients wishes and were consensually agreed upon. Question Answer Comments Discussion of Advance Directives occurred with: Patient Care Teams Dry Kiln Feeder Relationship Specialty Start Date End Date Wade Bragg MD [address] [facility] [place] [address] PCP - General Family Medicine 03/24/18 documented as of this encounter
--- OUTSIDE RECORDS SUMMARY | 2024-06-24 19:17 | External Medical Summary | Summary of Care ---
Author Name Unknown Organization [facility] Address [address] [place] [address] Phone [phone] Care Team Providers Care Procurement Internship Name Role Phone Wade Bragg MD Primary Care Provider +1- [phone] Reason for Visit * Reason Onset Date Comments Referral 06/09/2024 Encounter Details Date Type Department Care Team (Late st Contact Info) Description 06/09/2024 Telephone Medical Pain Management [facility] [address] [place] [address] Carly Porter CRNP [address] [place] [address] Referral Allergies Active Allergy Reactions Criticality Noted [...] Oral Tablet (Zetia)Indications:Co ronary artery disease involving [place] coronary artery of [place] heart without angina pectoris,Dyslipidemia , goal LDL below 130,Old [place] (myocardial infarction) take 1 tablet by mouth every morning 90 Tablet 3 08/30/2023 Active Pantoprazole Sodium 40 MG Oral Tablet Delayed Release (Protonix) take 1 tablet by mouth every morning 90 Tablet 3 08/30/2023 Active Nitroglycerin 0.4 MG Sublingual Tablet Sublingual (Nitrostat)Indication s:Coronary artery disease involving [place] coronary artery of [place] heart without angina pectoris place 1 tablet [...] Hour (toPROL XL)Indications:Saavedra ry artery disease involving [place] coronary artery of [place] heart without angina pectoris,Ischemic cardiomyopathy,Dyslip idemia, goal [...] artery disease of n ative artery of [place] heart with stable angina pectoris 06/27/2018 History [...] Encounter - Carly Porter CRNP - 06/09/2024 9:51 AM EDT Attempted to contact patient regarding referral to Multi-disciplinary Pain Program. LVM with clinicnumber to call for further information about the referral or to schedule a telephonic visit for orientation. documented in this encounter Plan of Treatment Upcoming Encounters Date Type Department Care Team (Latest Contact Info) Description 06/28/2024 10:00 AM EDT Hospital Encounter ENDO [facility], Endoscopy Room [facility] [address] [place] [address] Kike Gross, DO [address] [place] [address] 06/28/2024 10:00 AM EDT - 06/28/2024 11:00 AM EDT Surgery ENDO [facility], Endoscopy Room [facility] [address] [place] [address] Kike Gross, DO [address] [place] [address] ESOPHAGOGASTRODUODENOSCOPY (EGD), FLEXIBLE, TRANSORAL, ENDOSCOPIC ULTRASOUND 09/14/2024 1:30 PM EST Office Visit Gastroenterology , [facility] [address] [place] [address] Taylor Boyer CRNP [address] [place] [address] 11/16/2024 1:30 PM EST Office Visit Cardiology, [facility] [address] [place] [address] Herb Tamez, DO [address] [place] [address] Scheduled Procedures Name Priority Associated Diagnoses Date/Ti [...] Comments DISCUSS TOBACCO CESSATION (REFER TO SMARTSET #6376) 1970 Pneumococcal Vaccine: Pediatrics (0 to 5 Years) and At-Risk Patients (6 to 64 Years) (1 of 2 - PCV) 1975 Hepatitis C Screening 1987 Cologuard 2014 Fecal Occult Blood Test 2014 Sigmoidoscopy 2014 Zoster Vaccines (1 of 2) 2019 DTap/Tdap Vaccines (2 - Td or Tdap) 12/21/2022 12/21/2012 COVID-19 Vaccine (1 - 2022-24 season) 2023 Depression Screening 02/16/2024 02/15/2023, 05/31/20 [...] Advance Directives occurred with: Patient Care Teams Procurement Internship Relationship Specialty Start Date End Date Wade Bragg MD [address] [facility] [place] [address] PCP - General Family Medicine 03/24/18 documented as of this encounter
--- OUTSIDE RECORDS SUMMARY | 2024-06-24 19:18 | External Medical Summary | Summary of Care ---
Author Name Unknown Organization [facility] Address [address] [place] [address] Phone [phone] Care Team Providers Care Mortgage Specialist Name Role Phone Wade Bragg MD Primary Care Provider +1- [phone] Reason for Visit * Reason Onset Date Comments Hospital Follow-Up 05/16/2024 DANIEL (not need ed) Encounter Details Date Type Department Care Team (Late st Contact Info) Description 05/16/2024 Telephone [facility] [address] [place] [address] Wade Bragg MD [address] [place] [address] Hospital Follow-Up (DANIEL (not needed)) Allergies Active Allergy Reactions Criticality Noted Date Comments Isosorbide Nitrate 07/30/2023 Severe Mirgrains documented as of this encounter (statuses as of 05/16/2024) Medications Medication Sig Dispensed Refills Start Date [...] Oral Tablet (Zetia)Indications:Co ronary artery disease involving [place] coronary artery of [place] heart without angina pectoris,Dyslipidemia , goal LDL below 130,Old [place] (myocardial infarction) take 1 tablet by mouth every morning 90 Tablet 3 08/30/2023 Active Pantoprazole Sodium 40 MG Oral Tablet Delayed Release (Protonix) take 1 tablet by mouth every morning 90 Tablet 3 08/30/2023 Active Nitroglycerin 0.4 MG Sublingual Tablet Sublingual (Nitrostat)Indication s:Coronary artery disease involving [place] coronary artery of [place] heart without angina pectoris place 1 tablet [...] Hour (toPROL XL)Indications:Saavedra ry artery disease involving [place] coronary artery of [place] heart without angina pectoris,Ischemic cardiomyopathy,Dyslip idemia, goal [...] as of this encounter (statuses as of 05/16/2024) Active Problems Problem Noted Date Diagnosed Date Bradycardia 04/20/2024 Ischemic cardiomyopathy 06/22/2023 NSVT (nonsustained ventricular tachycardia) 06/[address] elevation myocardial infarction (S ANT) 06/22/2023 HFrEF (heart failure with reduced ejection fract ion) 06/22/2023 S/P angioplasty with stent 05/28/2023 Gastroesophageal reflux dise ase with esophagitis without hemorrhage 12/16/2020 Old [place] (myocardial infarction) 06/27/2018 Coronary artery disease of n ative artery of [place] heart with stable angina pectoris 06/27/2018 History of acute pancreatitis 06/27/2018 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 Dyslipidemia, goal LDL below 70 09/18/2013 Generalized anxiety disorder 03/09/2013 Tobacco use disorder 01/03/2013 documented as of this encounter (statuses as of 05/16/2024) Resolved Problems Problem Noted Date Diagnosed Date [...] as of this encounter (statuses as of 05/16/2024) Immunizations Name Administration Dates Next Due Hepatitis [...] Telephone Encounter - Nikki Padilla RN - 05/16/2024 3:09 PM EDT Transitions of Care Note Reason for Referral: Recent Admission Phone visit for follow up: Inpatient Hospitalization Admitted to: [facility], Date: 05/12/2024 Discharged to: Home, Date: 05/13/2024 DANIEL call not indicated due to admitted to [facility] 05/14/2024. Nikki Padilla RN documented in this encounter Plan of Treatment Upcoming Encounters Date Type Department Care Team (Latest Contact Info) Description 05/29/2024 11:00 AM EDT [facility] [address] [facility] [address] [facility] [address] [facility] [address] 06/28/2024 10:00 AM EDT Hospital Encounter ENDO [facility], Endoscopy Room [facility] [address] [place] [phone] Kike Gross, [address] [place] [address] 06/28/2024 10:00 AM EDT - 06/28/2024 11:00 AM EDT Surgery ENDO [facility], Endoscopy Room [facility] [address] [place] [phone] Kike Gross, [address] [place] [address] ESOPHAGOGASTRODUODENOSCOPY (EGD), FLEXIBLE, TRANSORAL, ENDOSCOPIC ULTRASOUND 09/14/2024 1:30 PM EST Office Visit Gastroenterology , [facility] [address] [place] [address] Taylor Boyer CRNP [address] [place] [address] 11/16/2024 1:30 PM EST Office Visit Cardiology, [facility] [address] [place] [address] Herb Tamez DO [address] [place] [address] Scheduled Procedures Name Priority Associated Diagnoses Date/Ti [...] Comments DISCUSS TOBACCO CESSATION (REFER TO SMARTSET #[id number]) 1970 Pneumococcal Vaccine: Pediatrics (0 to 5 [...] Advance Directives occurred with: Patient Care Teams Mortgage Specialist Relationship Specialty Start Date End Date Wade Bragg MD [address] [place] [facility] [place] [address] PCP - General Family Medicine 03/24/18 documented as of this encounter
--- OUTSIDE RECORDS SUMMARY | 2024-06-24 19:18 | External Medical Summary | Summary of Care ---
Author Name Unknown Organization [facility] Address [address] [place] [address] Phone [phone] Care Team Providers Care Mophead Trimmer And Wrapper Name Role Phone Wade Bragg MD Primary Care Provider [phone] Encounter Details Date Type Department Care Team (Late st Contact Info) Description 05/14/2024 Result Scan Unspecified Department <No scans attached> Allergies Active Allergy Reactions Criticality Noted Date Comments Isosorbide Nitrate 07/30/2023 Severe Mirgrains documented as of this encounter (statuses as of 05/15/2024) Medications Medication Sig Dispensed Refills Start Date [...] Oral Tablet (Zetia)Indications:Co ronary artery disease involving swinomish coronary artery of swinomish heart without angina pectoris,Dyslipidemia , goal LDL below 130,Old ND (myocardial infarction) take 1 tablet by mouth every morning 90 Tablet 3 08/30/2023 Active Pantoprazole Sodium 40 MG Oral Tablet Delayed Release (Protonix) take 1 tablet by mouth every morning 90 Tablet 3 08/30/2023 Active Nitroglycerin 0.4 MG Sublingual Tablet Sublingual (Nitrostat)Indication s:Coronary artery disease involving swinomish coronary artery of swinomish heart without angina pectoris place 1 tablet [...] Hour (toPROL XL)Indications:Saavedra ry artery disease involving swinomish coronary artery of swinomish heart without angina pectoris,Ischemic cardiomyopathy,Dyslip idemia, goal [...] as of this encounter (statuses as of 05/15/2024) Active Problems Problem Noted Date Diagnosed Date Bradycardia 04/20/2024 Ischemic cardiomyopathy 06/22/2023 NSVT (nonsustained ventricular tachycardia) 06/[address] elevation myocardial infarction (S ANT) 06/22/2023 HFrEF (heart failure with reduced ejection fract ion) 06/22/2023 S/P angioplasty with stent 05/28/2023 Gastroesophageal reflux dise ase with esophagitis without hemorrhage 12/16/2020 Old ND (myocardial infarction) 06/27/2018 Coronary artery disease of n ative artery of swinomish heart with stable angina pectoris 06/27/2018 History of acute pancreatitis 06/27/2018 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 Dyslipidemia, goal LDL below 70 09/18/2013 Generalized anxiety disorder 03/09/2013 Tobacco use disorder 01/03/2013 documented as of this encounter (statuses as of 05/15/2024) Resolved Problems Problem Noted Date Diagnosed Date [...] as of this encounter (statuses as of 05/15/2024) Immunizations Name Administration Dates Next Due Hepatitis [...] [id number] Kike Gross DO [address] [address] 06/28/2024 10:00 AM EDT - 06/28/2024 11:00 AM EDT Surgery [facility], Endoscopy Room [facility] [address] [place] [id number] Kike Gross, DO [address] [place], [place] [address] ESOPHAGOGASTRODUODENOSCOPY (EGD), FLEXIBLE, TRANSORAL, ENDOSCOPIC ULTRASOUND 09/14/2024 1:30 PM EST Office Visit Gastroenterology , [facility] [address] [place] [address] Taylor Boyer CRNP [address] [place] [address] 11/16/2024 1:30 PM EST Office Visit Cardiology, [facility] [address] [place] [address] Herb Tamez, DO [address] [place] [address] Scheduled Procedures Name Priority Associated Diagnoses Date/Ti [...] Comments DISCUSS TOBACCO CESSATION (REFER TO SMARTSET #[id number]) 1970 Pneumococcal Vaccine: Pediatrics (0 to 5 Years) and At-Risk Patients (6 to 64 Years) (1 of 2 - PCV) 1975 Hepatitis C Screening 1987 Cologuard 2014 Fecal Occult Blood Test 2014 Sigmoidoscopy 2014 Zoster Vaccines (1 of 2) 2019 DTaP,Tdap,and Td Vaccines (2 - Td or Tdap) 12/21/2022 12/21/2012 COVID-19 Vaccine (24 season) 2023 Depression Screening 02/16/2024 02/15/2023, 05/31/20 [...] Date/Time Associated Diagnosis Comments RADIOLOGY SCANNED RESULT 05/14/2024 documented in this encounter Results * RADIOLOGY SCANNED RESULT (05/14/2024) 05/14/2024 No Physician Data Unknown DIAGNOSTIC RAD IOLOGY SERVICES documented in this encounter Advance Directives * Full Code (Latest Code Status on File) Date Activated Date Inactivated Comments 08/14/2022 1:00 AM 08/17/2022 2:38 PM This order r eflects the patients wishes and were consensually agreed upon. Question Answer Comments Discussion of Advance Directives occurred with: Patient Care Teams [employer] Trimmer And Wrapper Relationship Specialty Start Date End Date Wade Bragg MD [address] [place] [address] PCP - General Family Medicine 03/24/18 documented as of this encounter
--- NOTE | 2024-06-24 19:41 | Emergency Department Note ---
Impression & Plan Acute on chronic pancreatitis, Abdominal pain, Recurrent pancreatitis ED Provider Note NAME: SAMUEL RIDER AGE: 53 SEX: M : 1970 ARRIVES VIA: Walk-In INFORMANT: Patient ED PROVIDER(S): Eros Rizvi MD CHIEF COMPLAINT: Abdominal pain PLAN: Disposition: Admit MEDICAL DECISION MAKING: The patient is a pleasant 53-year-old gentleman with a past medical history of chronic pancreatitis/recurrent pancreatitis of unclear etiology, history of cholecystectomy, GERD, Casanova's esophagus, gastritis, SVT, CAD, ischemic cardiomyopathy who presented to emergency department via walk-in for evaluation of acute onset of mid abdominal pain around 2 PM today which he reports is reminiscent of his history of pancreatitis. He admits that he has also had similar flares of pain that were more likely to be gastritis. He denies any known triggers in terms of foods he may have eaten that may have provoked the symptoms. He denies any alcohol use or marijuana use. He does report diarrhea but this is chronic and unchanged. He denies any fevers, chills, cough, congestion. Denies any chest pain or shortness of breath. Has any headache or dizziness. On evaluation the patient is no distress, afebrile with BP 150s/90s and otherwise stable vital signs. Appears clinically dry. He has mild mid abdominal discomfort without discrete tenderness. WBC, H/H and platelets within normal limits. Chemistry without metabolic acidosis. Electrolytes and LFTs without significant abnormality. HS troponin 10.1, within normal limits. Lipase is elevated at 447, greater than 5X upper limit of normal. Medical alcohol was undetectable. CT of the abd/pelvis was performed and demonstrates evidence of acute on chronic pancreatitis. Upon evaluation the patient did report feeling improvement in his pain from 7/10 down to 3/10 after IV fluid hydration, famotidine, Phenergan as well as IM dicyclomine. BP improved. However, given his acute on chronic pancreatitis he does agree with plan for admission for continued bowel rest and supportive care. Case was discussed with Dr. Singh, [facility] hospitalist, who will evaluate the patient for admission. Further management per admitting team. Triage Nursing notes reviewed and agree them. Prior/external medical records reviewed Vital Signs: reviewed Differential diagnosis: Gastroenteritis, food borne illness, infections, appendicitis, diverticulitis, inflammatory bowel disease, obstruction, GI bleed, biliary pathology, volvulus, as well as other pathologies. ER treatment provided: See below. Diagnostics interpreted by me: ECG: Sinus rhythm with sinus arrhythmia, 80 bpm, no ectopy, no overt ST elevation or depression, QTc 399, QRS 88. Cardiac Monitoring: An order for continuous cardiac monitoring was placed and demonstrated Sinus rhythm with sinus arrhythmia, 80 bpm. Laboratory studies: See below Imaging studies: See below Consultation(s): Case was discussed with Dr. Singh, [facility] hospitalist, who will evaluate the patient for admission. HPI: The patient is a pleasant 53-year-old gentleman with a past medical history of chronic pancreatitis/recurrent pancreatitis of unclear etiology, history of cholecystectomy, GERD, Casanova's esophagus, gastritis, SVT, CAD, ischemic cardiomyopathy who presented to emergency department via walk-in for evaluation of acute onset of mid abdominal pain around 2 PM today which he reports is reminiscent of his history of pancreatitis. He admits that he has also had similar flares of pain that were more likely to be gastritis. He denies any known triggers in terms of foods he may have eaten that may have provoked the symptoms. He denies any alcohol use or marijuana use. He does report diarrhea but this is chronic and unchanged. He denies any fevers, chills, cough, congestion. Denies any chest pain or shortness of breath. Has any headache or dizziness. ROS: See above HPI for pertinent positives & negatives. A total of 10 systems reviewed and were otherwise negative. VITALS:See Below PHYSICAL EXAMINATION: GENERAL: Awake, alert, fatigued-appearing, in no distress HENT: Normocephalic, atraumatic. Oropharynx with dry mucous membranes and otherwise unremarkable. EYES: Normal conjunctiva. Sclera non-icteric. NECK: Supple. No nuchal rigidity. FROM. No JVD. RESPIRATORY: Clear to auscultation. CARDIAC: Regular rate, normal rhythm. Extremities warm and well perfused. Pulses equal. ABDOMEN: Soft, non-distended. Mild mid abdominal discomfort without discrete tenderness. No rebound or guarding. No masses. MUSCULOSKELETAL: Chest examination reveals no tenderness. The back is symmetrical on inspection without obvious abnormality. There is no CVA tenderness to palpation. No joint edema. LOWER EXTREMITIES: Calves are equal size bilaterally and non-tender. No edema. No discoloration. NEURO: Normal sensorium. No sensory or motor deficits noted. SKIN: No rash or jaundice noted. Eros Rizvi MD Past Med/Surg History Problem List (Updated 06/25/24 @ 01:36 by Eros Rizvi MD) Abdominal pain (Acute) Acute on chronic pancreatitis (Acute) Abdominal pain (Acute) Epigastric abdominal pain Abdominal pain, acute (Acute) Acute pancreatitis (Acute) SVT (supraventricular tachycardia) Chest pain (Acute) Acute pancreatitis (Acute) GERD (gastroesophageal reflux disease) Chest pain (Acute) Ischemic cardiomyopathy Non-sustained ventricular tachycardia (Acute) Elevated troponin (Acute) Bradycardia (Acute) Chronic pancreatitis Sinus bradycardia Chest pain (Acute) Hematoma Tobacco abuse Recurrent pancreatitis (Acute) Non-ST elevation (NSTEMI) myocardial infarction (Acute) Acute on chronic pancreatitis Abdominal pain (Acute) Lesion of pancreas Elevated lipase Pancreatitis (Acute) Chest pain (Acute) Chest pain Acute pancreatitis (Acute) Abdominal pain, periumbilical (Acute) Anemia Hypomagnesemia Hypophosphatemia Hx laparoscopic cholecystectomy (08/22/21) Laparoscopic Cholecystectomy Dr. Davidson 08/22/2021 Grade II diastolic dysfunction Barretts esophagus Acute pancreatitis (Acute) Non-ST elevation DC (NSTEMI) (Acute) Breath shortness (Acute) DVT prophylaxis Chest pain (Acute) HLD (hyperlipidemia) RADHA (generalized anxiety disorder) CAD (coronary artery disease) (Acute) 2018-RCA stent x 2 07/2020-STEMI, s/p PCI to left circumflex with 2 MELLY. Post procedure complicated by V. fib arrest requiring defibrillation. 12/2020-NSTEMI s/p 3 Xience MELLY to the distal aspect of prior stent of the left posterior lateral branch vessel Depression GERD (gastroesophageal reflux disease) (Acute) Medical History ST elevation myocardial infarction (STEMI) COVID-29 Oct 2021 Mobitz type 2 second degree atrioventricular block Tobacco abuse Splenic infarct Surgical History History of endoscopic retrograde cholangiopancreatography x2 (08/31, 09/30) History of vasectomy Family History Mother Gallbladder disease Sister Gallbladder disease Other Diabetes Stroke Denies family history of Pancreatic disease Social History Smoking Status: Current every day smoker Tobacco Type: Cigarettes Cigarettes Per Day: 1 pck/day; Second Hand Exposure: No; Do You Dip or Chew Tobacco: No; Hx Alcohol Use: No Hx Substance Use: No Preferred Language: Kinyarwanda Communication Ability: Effective Internal Specialist Required: No Beliefs That Will Affect Care: None marital status: Single Current Living Situation: Alone current occupational status: employed Feels Safe at Home: Yes Assistive Devices: None Allergies Allergies Allergy/AdvReac Type Severity Reaction Status Date / Time isosorbide [From Imdur] AdvReac Severe severe Verified 05/12/24 21:26 migraine Home Meds Home Medications Medication Instructions Recorded Confirmed nitroglycerin 0.4 mg sublingual 0.4 mg sublingual .EVERY 5 MINUTES 10/07/18 05/12/24 tablet (Nitrostat) PRN Chest Pain dicyclomine 10 mg capsule 10 mg PO BID PRN Abdominal Pain 12/06/20 05/12/24 ezetimibe 10 mg tablet 10 mg PO QAM 12/06/20 05/12/24 famotidine 40 mg tablet 40 mg PO HS PRN Acid Reflux 12/06/20 05/12/24 magnesium oxide 400 mg PO QAM 12/06/20 05/12/24 rosuvastatin 40 mg tablet 40 mg PO QAM 06/07/23 05/12/24 metoprolol succinate 25 mg 25 mg PO AMHS 07/27/23 05/12/24 tablet,extended release 24 hr ticagrelor 90 mg tablet (Brilinta) 90 mg PO AMHS 07/27/23 05/12/24 sertraline 100 mg tablet 100 mg PO QAM 10/21/23 05/12/24 losartan 25 mg tablet 12.5 mg PO DAILY 04/21/24 05/12/24 Previous Rx's Medication Instructions Recorded aspirin 81 mg tablet,delayed 81 mg PO QAM #30 tabs 05/24/23 release spironolactone 25 mg tablet 12.5 mg (1/2 x 25 mg) PO QAM #15 06/08/23 tabs ondansetron 4 mg disintegrating 4 mg PO Q6H PRN nausea and 04/21/24 tablet vomiting #20 tabs pantoprazole 40 mg tablet,delayed 40 mg PO BID #60 tabs 05/13/24 release sucralfate 1 gram tablet 1 g PO ACHS PRN Stomach Upset #120 05/13/24 tabs Results & Data (ED) Vital Signs Vital Signs - 24 hr 06/24/24 19:13 06/24/24 19:13 06/24/24 19:18 Temperature 36.9 C Temperature Source Temporal Artery Scan Pulse Rate 77 104 H Pulse Rate [Right] 81 Pulse Rhythm Regular Pulse Rhythm [Right] Regular Pulse Strength [Right] Normal Respiratory Rate 16 18 Respiratory Effort / Characteristics Non-Labored Spontaneous Non-Labored Spontaneous Respiratory Depth Normal Normal Respiratory Pattern Regular Regular Blood Pressure 145/92 H Blood Pressure [Left Arm] 150/98 H Blood Pressure Mean 109 Blood Pressure Mean [Left Arm] 115 Blood Pressure Position Sitting Blood Pressure Position [Left Arm] Pulse Oximetry 97 97 95 Oxygen Delivery Method Room Air Room Air Room Air Sepsis Recent Fever Within 48 Hours No Sepsis New/Unexplained Change in Mental Status N/A Sepsis Action Taken by Nursing No Action Required 06/24/24 19:32 06/24/24 19:36 06/24/24 21:13 Temperature Temperature Source Pulse Rate 85 Pulse Rate [Right] 61 Pulse Rhythm Regular Pulse Rhythm [Right] Regular Pulse Strength [Right] Normal Respiratory Rate 20 Respiratory Effort / Characteristics Non-Labored Spontaneous Respiratory Depth Normal Respiratory Pattern Regular Blood Pressure Blood Pressure [Left Arm] Blood Pressure Mean Blood Pressure Mean [Left Arm] Blood Pressure Position Blood Pressure Position [Left Arm] Lying Pulse Oximetry 98 Oxygen Delivery Method Room Air Room Air Sepsis Recent Fever Within 48 Hours Sepsis New/Unexplained Change in Mental Status Sepsis Action Taken by Nursing 06/24/24 23:13 06/24/24 23:53 06/25/24 00:00 Temperature Temperature Source Pulse Rate 59 L Pulse Rate [Right] 52 L 60 Pulse Rhythm Pulse Rhythm [Right] Regular Regular Pulse Strength [Right] Normal Normal Respiratory Rate 16 16 Respiratory Effort / Characteristics Non-Labored Spontaneous Non-Labored Spontaneous Respiratory Depth Normal Normal Respiratory Pattern Regular Regular Blood Pressure Blood Pressure [Left Arm] 135/87 137/84 Blood Pressure Mean Blood Pressure Mean [Left Arm] 103 101 Blood Pressure Position Blood Pressure Position [Left Arm] Lying Lying Pulse Oximetry 96 97 Oxygen Delivery Method Room Air Room Air Sepsis Recent Fever Within 48 Hours Sepsis New/Unexplained Change in Mental Status Sepsis Action Taken by Nursing Laboratory Data Attestation: I reviewed the patient's lab results. 06/24/24 19:35 06/24/24 19:35 Lab Results 06/24/24 06/24/24 Range/Units 19:35 20:02 WBC 9.33 (4.8-10.8) K/ul RBC 4.39 L (4.70-6.10) M/uL Hgb 14.7 (14.0-18.0) g/dl Hct 43.2 (42.0-52.0) % MCV 98.4 (80.0-100.0) fL MCH 33.5 (25.0-34.0) pg MCHC 34.0 (32.0-36.0) g/dL RDW Std Deviation 48.0 H (36.4-46.3) fL RDW Coeff of Mckinley 13.2 (11.5-14.5) % Plt Count 266 (130-400) K/uL MPV 9.1 L (9.4-12.4) fL Immature Gran % (Auto) 0.4 % Neut % (Auto) 69.7 % Lymph % (Auto) 21.8 % Cache % (Auto) 4.7 % Eos % (Auto) 2.6 % Baso % (Auto) 0.8 % Neut # (Auto) 6.51 H (1.40-6.50) K/uL Lymph # (Auto) 2.03 (1.20-3.40) K/uL Cache # (Auto) 0.44 (0.11-0.59) K/uL Eos # (Auto) 0.24 (0.00-0.50) K/uL Baso # (Auto) 0.07 (0.00-0.20) K/uL Immature Gran # (Auto) 0.04 (0.01-0.20) K/uL Sodium 139 (136-145) mmol/L Potassium 4.2 (3.5-5.1) mmol/L Chloride 106 (98-107) mmol/L Carbon Dioxide 25 (21-32) mmol/L Anion Gap 8 (3-11) BUN 14 (6-23) mg/dl Creatinine 1.29 (0.6-1.4) mg/dl Est Cr Clr Drug Dosing 51.6 ml/min Est GFR ( Amer) 72.4 ml/min Est GFR (Non-Af Amer) 62.4 ml/min BUN/Creatinine Ratio 10.9 (10-20) Glucose 159 H (70-99(Fasting)) mg/dl Calcium 9.3 (8.6-10.3) mg/dl Total Bilirubin 0.3 (0.2-1.0) mg/dl Direct Bilirubin 0.0 (0-0.2) mg/dl AST 14 (13-39) U/L ALT 15 (7-52) U/L Alkaline Phosphatase 79 (34-104) U/L Troponin I High Sens 10.1 (0-20) pg/ml Total Protein 7.1 (6.0-8.3) gm/dl Albumin 4.5 (3.4-5.0) gm/dl Globulin 2.6 (2.5-4.0) gm/dl Albumin/Globulin Ratio 1.7 (0.9-2) Lipase 447 H (11-82) U/L Ethyl Alcohol mg/dL < 10.0 (<10.0) mg/dl Administered Medications Sodium Chloride (Nss) 500 mls @ 80 mls/hr IV .Q6H15M ALYCIA Stop: 07/24/24 19:44 Last Admin: 06/24/24 19:58 Dose: 80 mls/hr Documented By: MICHELLE Discontinued Medications Dicyclomine HCl (Dicyclomine Hcl 10 Mg/Ml 2 Ml Amp/Vial) 20 mg IM NOW ONE Stop: 06/24/24 21:00 Last Admin: 06/24/24 21:09 Dose: 20 mg Documented By: [facility] Famotidine (Pepcid 20mg Iv Push) 20 mg in 5 mls @ 2.5 mls/min IV NOW STA Stop: 06/24/24 19:39 Last Admin: 06/24/24 19:55 Dose: 2.5 mls/min Documented By: [facility] Promethazine HCl (Phenergan) 25 mg in 51 mls @ 204 mls/hr IV NOW STA Stop: 06/24/24 19:52 Last Infusion: 06/24/24 20:37 Dose: Infused Documented By: Admin: 06/24/24 19:57 Dose: 204 mls/hr Documented By: MICHELLE Ioversol (Optiray 320 100ml) 92 ml IV ONCE ONE Stop: 06/24/24 21:18 Last Admin: 06/24/24 21:18 Dose: 92 ml Documented By: YURI Imaging Data Radiologist's Impression: Chest X-Ray 06/24/24 19:36 XR chest 1V portable CLINICAL HISTORY: Chest pain, nonspecific TECHNIQUE: Single frontal radiograph of the chest was obtained. Comparison: Comparison is made to chest radiograph 03/28/2024 FINDINGS: No lines and tubes are seen. The cardiomediastinal silhouette is normal. The lungs are clear. No evidence of pleural effusion or pneumothorax. IMPRESSION: No acute chest disease. ACT 112: Negative or not required by law. Electronically signed by: Vadim Cunha M.D. 06/24/2024 7:51 PM Abdomen/Pelvis CT 06/24/24 20:59 Exam(s): CT ABDOMEN + PELVIS With Contrast IV Amt: 92 ML OPTIRAY 320 EXAM: CT Abdomen and Pelvis With Intravenous Contrast CLINICAL HISTORY: Reason for exam: abd pain, h/o gastritis, recurrent pancreatitis. TECHNIQUE: Axial computed tomography images of the abdomen and pelvis with intravenous contrast. CTDI is 9.03 mGy and DLP is 440.59 mGy-cm. Automated exposure control was utilized for the study. A dose lowering technique was utilized adhering to the principles of ALARA. CONTRAST: Patient received 92 ML OPTIRAY 320 of IV contrast COMPARISON: CT abdomen and pelvis: 03/28/2024 FINDINGS: Lung bases: Unremarkable. No mass. No consolidation. ABDOMEN: Liver: Unremarkable. No mass. Gallbladder and bile ducts: The gallbladder has been removed. No ductal dilation. Pancreas: There is persistent heterogeneous enhancement of the mildly enlarged pancreatic head and mild peripancreatic inflammatory stranding consistent with history of pancreatitis. Pancreatic ductal dilatation identified. There are a few associated pancreatic parenchymal calcifications suggestive of a background chronic pancreatitis. Clinical correlation and follow-up recommended. Spleen: Unremarkable. No splenomegaly. Adrenals: Unremarkable. No mass. Kidneys and ureters: There is a small simple right renal cyst. No solid renal mass or hydronephrosis identified. Stomach and bowel: Unremarkable. No obstruction. No mucosal thickening. PELVIS: Appendix: The appendix is normal. Bladder: Unremarkable. No mass. Reproductive: Unremarkable as visualized. ABDOMEN and PELVIS: Intraperitoneal space: Unremarkable. No free air. No significant fluid collection. Bones/joints: No acute fracture. No dislocation. Soft tissues: Unremarkable. Vasculature: There is scattered aortoiliac atherosclerotic calcifications. There is a small simple cyst noted in the medial segment left hepatic lobe. No abdominal aortic aneurysm. Lymph nodes: Unremarkable. No enlarged lymph nodes. IMPRESSION: 1. Findings consistent with acute pancreatitis with associated background findings of chronic pancreatitis as described above. Clinical correlation and follow-up recommended. Electronically signed by: Ankur Wing MD 06/25/24 00:28 AM Discharge Plan Visit Data Chief Complaint: Abdominal Pain ED Provider: Eros Rizvi Discharge Problem: Acute on chronic pancreatitis, Abdominal pain, Recurrent pancreatitis Forms Stand Alone Forms: [facility] Prescriptions Prescriptions: No Action nitroglycerin [Nitrostat] 0.4 mg tablet, sublingual 0.4 mg Sublingual .EVERY 5 MINUTES MDD 3 doses PRN (Reason: Chest Pain) Rx Instructions: if no relief after 3rd dose call 911 famotidine 40 mg tablet 40 mg PO HS PRN (Reason: Acid Reflux) dicyclomine 10 mg capsule 10 mg PO BID PRN (Reason: Abdominal Pain) ezetimibe 10 mg tablet 10 mg PO QAM magnesium oxide 400 mg magnesium Tablet 400 mg PO QAM aspirin 81 mg tablet,delayed release (DR/EC) 81 mg PO QAM Qty: 30 0RF rosuvastatin 40 mg tablet 40 mg PO QAM spironolactone 25 mg tablet 12.5 mg PO QAM Qty: 15 0RF metoprolol succinate 25 mg tablet extended release 24 hr 25 mg PO AMHS Brilinta 90 mg tablet 90 mg PO AMHS sertraline 100 mg tablet 100 mg PO QAM losartan 25 mg tablet 12.5 mg PO DAILY ondansetron 4 mg tablet,disintegrating 4 mg PO Q6H PRN (Reason: nausea and vomiting) Qty: 20 0RF pantoprazole 40 mg tablet,delayed release (DR/EC) 40 mg PO BID Qty: 60 0RF sucralfate 1 gram tablet 1 g PO ACHS PRN (Reason: Stomach Upset) Qty: 120 0RF Referrals Referrals: Wade Bragg MD [Primary Care Provider] - Discharge Problem: Abdominal pain Qualifiers: Abdominal location: unspecified location Qualified Code(s): R10.9 - Unspecified abdominal pain
--- NOTE | 2024-06-24 19:52 | XRay Report ---
XR chest 1V portable CLINICAL HISTORY: Chest pain, nonspecific TECHNIQUE: Single frontal radiograph of the chest was obtained. Comparison: Comparison is made to chest radiograph 03/28/2024 FINDINGS: No lines and tubes are seen. The cardiomediastinal silhouette is normal. The lungs are clear. No evid ence of pleural effusion or pneumothorax. IMPRESSION: No acute chest disease. ACT 112: Negative or not required by law. Electronically signed by: Vadim Cunha M.D. 06/24/2024 7:51 PM
[2024-06-24] MEDS: FAMOTIDINE 20MG IV PUSH 20 MG/5 ML SYR IV STA (19:55)
[2024-06-24] MEDS: PROMETHAZINE 25 MG/51 ML BAG IV STA (19:57)
[2024-06-24] MEDS: SODIUM CHLORIDE 0.9% 500 ML IV SCH (19:58)
[2024-06-24 20:08] LABS: Basophils # (auto) 0.07 K/uL (0.00-0.20); Basophils % (auto) 0.8 %; Eosinophils # (auto) 0.24 K/uL (0.00-0.50); Eosinophils % (auto) 2.6 %; Hematocrit (blood only) 43.2 % (42.0-52.0); Hemoglobin 14.7 g/dl (14.0-18.0); Immature Granulocytes # (auto) 0.04 K/uL (0.01-0.20); Immature Granulocytes % (auto) 0.4 %; Lymphocytes # (auto) 2.03 K/uL (1.20-3.40); Lymphocytes % (auto) 21.8 %; Mean Corpuscular Hemoglobin 33.5 pg (25.0-34.0); Mean Corpuscular Volume 98.4 fL (80.0-100.0); Mean Platelet Volume 9.1 fL (9.4-12.4); Monocytes # (auto) 0.44 K/uL (0.11-0.59); Monocytes % (auto) 4.7 %; Neutrophils # (auto) 6.51 K/uL (1.40-6.50); Neutrophils % (auto) 69.7 %; Platelet Count 266 K/uL (130-400); RDW Coefficient of Variation 13.2 % (11.5-14.5); Red Blood Count 4.39 M/uL (4.70-6.10); White Blood Count 9.33 K/ul (4.8-10.8)
[2024-06-24 20:16] LABS: Albumin Globulin Ratio 1.7 (0.9-2); Albumin Level 4.5 gm/dl (3.4-5.0); BUN Creatinine Ratio 10.9 (10-20); Bilirubin,Total 0.3 mg/dl (0.2-1.0); Calcium 9.3 mg/dl (8.6-10.3); Creatinine Clr Calc Pharmacy 51.6 ml/min; Est GFR (African American) 72.4 ml/min; Est GFR (Non-African American) 62.4 ml/min; Globulin 2.6 gm/dl (2.5-4.0); Potassium 4.2 mmol/L (3.5-5.1); Total Protein 7.1 gm/dl (6.0-8.3)
[2024-06-24 20:22] LABS: Troponin I High Sensitivity 10.1 pg/ml (0-20)
[2024-06-24] MEDS: DICYCLOMINE HCL 10 MG/ML 2 ML AMP/VIAL IM ONE (21:09)
[2024-06-24] MEDS: OPTIRAY 320 100ml IV ONE (21:18)
--- NOTE | 2024-06-25 00:29 | CT Scan Report ---
Exam(s): CT ABDOMEN + PELVIS With Contrast IV Amt: 92 ML OPTIRAY 320 EXAM: CT Abdomen and Pelvis With Intravenous Contrast CLINICAL HISTORY: Reason for exam: abd pain, h/o gastritis, recurrent pancreatitis. TECHNIQUE: Axial computed tomography images of the abdomen and pelvis with intravenous contrast. CTDI is 9.03 mGy and DLP is 440.59 mGy-cm. Automated exposure control was utilized for the study. A dose lowering technique was utilized adhering to the principles of ALARA. CONTRAST: Patient received 92 ML OPTIRAY 320 of IV contrast COMPARISON: CT abdomen and pelvis: 03/28/2024 FINDINGS: Lung bases: Unremarkable. No mass. No consolidation. ABDOMEN: Liver: Unremarkable. No mass. Gallbladder and bile ducts: The gallbladder has been removed. No ductal dilation. Pancreas: There is persistent heterogeneous enhancement of the mildly enlarged pancreatic head and mild peripancreatic inflammatory stranding consistent with history of pancreatitis. Pancreatic ductal dilatation identified. There are a few associated pancreatic parenchymal calcifications suggestive of a background chronic pancreatitis. Clinical correlation and follow-up recommended. Spleen: Unremarkable. No splenomegaly. Adrenals: Unremarkable. No mass. Kidneys and ureters: There is a small simple right renal cyst. No solid renal mass or hydronephrosis identified. Stomach and bowel: Unremarkable. No obstruction. No mucosal thickening. PELVIS: Appendix: The appendix is normal. Bladder: Unremarkable. No mass. Reproductive: Unremarkable as visualized. ABDOMEN and PELVIS: Intraperitoneal space: Unremarkable. No free air. No significant fluid collection. Bones/joints: No acute fracture. No dislocation. Soft tissues: Unremarkable. Vasculature: There is scattered aortoiliac atherosclerotic calcifications. There is a small simple cyst noted in the medial segment left hepatic lobe. No abdominal aortic aneurysm. Lymph nodes: Unremarkable. No enlarged lymph nodes. IMPRESSION: 1. Findings consistent with acute pancreatitis with associated background findings of chronic pancreatitis as described above. Clinical correlation and follow-up recommended. Electronically signed by: Ankur Wing MD 06/25/24 00:28 AM
--- NOTE | 2024-06-25 02:55 | History & Physical Report ---
Date of Service June 25, 2024 Assessment & Plan (1) Acute on chronic pancreatitis: Plan: 53-year-old male with past medical history significant for dyslipidemia, history of ST elevated [place], CAD status post stent, heart failure with reduced ejection fraction EF 35 to 40%, nonsustained ventricular tachycardia, history of bradycardia, Casanova's esophagus, GERD, tobacco use disorder, general anxiety disorder, history of recurrent pancreatitis comes because of abdominal pain.Patient states since yesterday having abdominal pain 8/10 in severity associate with nausea. No vomiting. No chest pain or shortness of breath. No headache. No dizziness. No runny nose or sore throat or cough. Afebrile. Normal bowel and bladder movements. Hemodynamics are okay. Acute on chronic pancreatitis Presents with abdominal pain CT scan consistent with acute pancreatitis N.p.o. IV LR at rate of 100 mL/h IV Dilaudid as needed S/p EGD on 03/30/2024 which showed mild chronic gastritis Plan for endoscopy on Wednesday GI consult in a.m. History of premature CAD s/p stent On aspirin and Brilinta, statin and metoprolol succinate . Chronic systolic CHF EF 35 to 40% On metoprolol succinate and losartan Getting fluids Will monitor for volume overload Casanova's esophagus PPI and famotidine and sucralfate Nonsustained ventricular tachycardia On metoprolol succinate Borderline tachybradycardia syndrome Possible future device implantation as per cardiology notes Ongoing tobacco abuse Needs counseling Hyperlipidemia On statin and Zetia Hypertension Metoprolol succinate and losartan . DVT prophylaxis Lovenox Disposition Medical floor Full code History of Present Illness Chief Complaint: Abdominal pain Primary Care Provider: Wade Bragg MD 53-year-old male with past medical history significant for dyslipidemia, history of ST elevated [place], CAD status post stent, heart failure with reduced ejection fraction EF 35 to 40%, nonsustained ventricular tachycardia, history of bradycardia, Casanova's esophagus, GERD, tobacco use disorder, general anxiety disorder, history of recurrent pancreatitis comes because of abdominal pain.Patient states since yesterday having abdominal pain 8/10 in severity associate with nausea. No vomiting. No chest pain or shortness of breath. No headache. No dizziness. No runny nose or sore throat or cough. Afebrile. Normal bowel and bladder movements. Hemodynamics are okay. Past medical history. As mentioned above Past surgical history. Colonoscopy. Cardiac cath. S/p cardiac stent. EGD. EGD with endoscopic ultrasound. ERCP. Vasectomy. Social history. Smokes half pack a day for 31 years. Currently no alcohol use. No drug use. Family history. Mother had diabetes. Stroke. Father had hypertension. Allergies Allergy/AdvReac Type Severity Reaction Status Date / Time isosorbide [From Imdur] AdvReac Severe severe Verified 05/12/24 21:26 migraine Home Medications Medication Instructions Recorded Confirmed Type aspirin 81 mg tablet,delayed 81 mg PO DAILY 06/25/24 06/25/24 History release dicyclomine 10 mg capsule 10 mg PO BID PRN Abdominal Pain 06/25/24 06/25/24 History ezetimibe 10 mg tablet 10 mg PO DAILY 06/25/24 06/25/24 History famotidine 40 mg tablet 40 mg PO HS 06/25/24 06/25/24 History losartan 25 mg tablet 25 mg PO DAILY 06/25/24 06/25/24 History magnesium oxide 400 mg (241.3 mg 400 mg PO DAILY 06/25/24 06/25/24 History magnesium) tablet metoprolol succinate 25 mg 25 mg PO BID 06/25/24 06/25/24 History tablet,extended release 24 hr pantoprazole 40 mg tablet,delayed 40 mg PO BID 06/25/24 06/25/24 History release rosuvastatin 40 mg tablet 40 mg PO DAILY 06/25/24 06/25/24 History sertraline 100 mg tablet 100 mg PO DAILY 06/25/24 06/25/24 History sucralfate 1 gram tablet 1 g PO ACHS 06/25/24 06/25/24 History ticagrelor 90 mg tablet (Brilinta) 90 mg PO BID 06/25/24 06/25/24 History Past Med/Surg History Problem List (Updated 06/25/24 @ 01:36 by Eros Rizvi MD) Abdominal pain (Acute) Acute on chronic pancreatitis (Acute) Abdominal pain (Acute) Epigastric abdominal pain Abdominal pain, acute (Acute) Acute pancreatitis (Acute) SVT (supraventricular tachycardia) Chest pain (Acute) Acute pancreatitis (Acute) GERD (gastroesophageal reflux disease) Chest pain (Acute) Ischemic cardiomyopathy Non-sustained ventricular tachycardia (Acute) Elevated troponin (Acute) Bradycardia (Acute) Chronic pancreatitis Sinus bradycardia Chest pain (Acute) Hematoma Tobacco abuse Recurrent pancreatitis (Acute) Non-ST elevation (NSTEMI) myocardial infarction (Acute) Acute on chronic pancreatitis Abdominal pain (Acute) Lesion of pancreas Elevated lipase Pancreatitis (Acute) Chest pain (Acute) Chest pain Acute pancreatitis (Acute) Abdominal pain, periumbilical (Acute) Anemia Hypomagnesemia Hypophosphatemia Hx laparoscopic cholecystectomy (08/22/21) Laparoscopic Cholecystectomy Dr. Davidson 08/22/2021 Grade II diastolic dysfunction Barretts esophagus Acute pancreatitis (Acute) Non-ST elevation [place] (NSTEMI) (Acute) Breath shortness (Acute) DVT prophylaxis Chest pain (Acute) HLD (hyperlipidemia) RADHA (generalized anxiety disorder) CAD (coronary artery disease) (Acute) 2018-RCA stent x 2 07/2020-STEMI, s/p PCI to left circumflex with 2 MELLY. Post procedure complicated by V. fib arrest requiring defibrillation. 12/2020-NSTEMI s/p 3 Xience MELLY to the distal aspect of prior stent of the left posterior lateral branch vessel Depression GERD (gastroesophageal reflux disease) (Acute) Medical History ST elevation myocardial infarction (STEMI) COVID-29 Oct 2021 Mobitz type 2 second degree atrioventricular block Tobacco abuse Splenic infarct Surgical History History of endoscopic retrograde cholangiopancreatography x2 (08/31, 09/30) History of vasectomy Family History Mother Gallbladder disease Sister Gallbladder disease Other Diabetes Stroke Denies family history of Pancreatic disease Social History Smoking Status: Current every day smoker Tobacco Type: Cigarettes Cigarettes Per Day: 10/day; Second Hand Exposure: No; Do You Dip or Chew Tobacco: No; Hx Alcohol Use: No Hx Substance Use: No Preferred Language: Frisian Communication Ability: Effective Condenser Operator Required: No Beliefs That Will Affect Care: None marital status: Single Current Living Situation: Alone current occupational status: employed Other Information That Helps Us Care for You: No Feels Safe at Home: Yes Safety Concerns: Feels Safe At This Time Assistive Devices: Glasses Review of Systems Review of Systems: All systems reviewed & are unremarkable except as noted in HPI & below Physical Exam Physical Exam: General-Not in distress Head- atraumatic Eyes- PERRL, EOMI. ENT- oropharynx clear Neck- supple, no JVD. Lungs- clear to auscultation no wheezing or crackles Heart- regular rhythm; no murmur, no gallop. Abdomen- normal bowel sounds, soft, nontender, no distension Extremities- no pretibial edema, no erythema seen Neuro- alert, oriented PERRL, EOMI; no facial palsy; no dysarthria; moves extremities Results & Data Results & Data Vital Signs (Past 12 Hours) Vital Signs Temp Pulse Pulse Resp BP BP Pulse Ox 06/25/24 02:00 60 16 125/79 95 06/25/24 00:00 60 16 137/84 97 06/24/24 23:53 59 L 06/24/24 23:13 52 L 16 135/87 96 06/24/24 21:13 61 20 98 06/24/24 19:36 06/24/24 19:32 85 06/24/24 19:18 36.9 C 104 H 18 145/92 H 95 06/24/24 19:13 77 97 06/24/24 19:13 81 16 150/98 H 97 O2 Del Method 06/25/24 02:00 Room Air 06/25/24 00:00 Room Air 06/24/24 23:53 06/24/24 23:13 Room Air 06/24/24 21:13 Room Air 06/24/24 19:36 Room Air 06/24/24 19:32 06/24/24 19:18 Room Air 06/24/24 19:13 Room Air 06/24/24 19:13 Room Air Diagnostic Findings Laboratory Results WBC 9.33 K/ul (4.8-10.8) 06/24/24 19:35 RBC 4.39 M/uL (4.70-6.10) L 06/24/24 19:35 Hgb 14.7 g/dl (14.0-18.0) 06/24/24 19:35 Hct 43.2 % (42.0-52.0) 06/24/24 19:35 MCV 98.4 fL (80.0-100.0) 06/24/24 19:35 MCH 33.5 pg (25.0-34.0) 06/24/24 19:35 MCHC 34.0 g/dL (32.0-36.0) 06/24/24 19:35 RDW Std Deviation 48.0 fL (36.4-46.3) H 06/24/24 19:35 RDW Coeff of Mckinley 13.2 % (11.5-14.5) 06/24/24 19:35 Plt Count 266 K/uL (130-400) 06/24/24 19:35 MPV 9.1 fL (9.4-12.4) L 06/24/24 19:35 Immature Gran % (Auto) 0.4 % 06/24/24 19:35 Neut % (Auto) 69.7 % 06/24/24 19:35 Lymph % (Auto) 21.8 % 06/24/24 19:35 [place] % (Auto) 4.7 % 06/24/24 19:35 Eos % (Auto) 2.6 % 06/24/24 19:35 Baso % (Auto) 0.8 % 06/24/24 19:35 Neut # (Auto) 6.51 K/uL (1.40-6.50) H 06/24/24 19:35 Lymph # (Auto) 2.03 K/uL (1.20-3.40) 06/24/24 19:35 [place] # (Auto) 0.44 K/uL (0.11-0.59) 06/24/24 19:35 Eos # (Auto) 0.24 K/uL (0.00-0.50) 06/24/24 19:35 Baso # (Auto) 0.07 K/uL (0.00-0.20) 06/24/24 19:35 Immature Gran # (Auto) 0.04 K/uL (0.01-0.20) 06/24/24 19:35 Sodium 139 mmol/L (136-145) 06/24/24 19:35 Potassium 4.2 mmol/L (3.5-5.1) 06/24/24 19:35 Chloride 106 mmol/L (98-107) 06/24/24 19:35 Carbon Dioxide 25 mmol/L (21-32) 06/24/24 19:35 Anion Gap 8 (3-11) 06/24/24 19:35 BUN 14 mg/dl (6-23) 06/24/24 19:35 Creatinine 1.29 mg/dl (0.6-1.4) 06/24/24 19:35 Est Cr Clr Drug Dosing 51.6 ml/min 06/24/24 19:35 Est GFR ( Amer) 72.4 ml/min 06/24/24 19:35 Est GFR (Non-Af Amer) 62.4 ml/min 06/24/24 19:35 BUN/Creatinine Ratio 10.9 (10-20) 06/24/24 19:35 Glucose 159 mg/dl (70-99(Fasting)) H 06/24/24 19:35 Calcium 9.3 mg/dl (8.6-10.3) 06/24/24 19:35 Total Bilirubin 0.3 mg/dl (0.2-1.0) 06/24/24 19:35 Direct Bilirubin 0.0 mg/dl (0-0.2) 06/24/24 19:35 AST 14 U/L (13-39) 06/24/24 19:35 ALT 15 U/L (7-52) 06/24/24 19:35 Alkaline Phosphatase 79 U/L (34-104) 06/24/24 19:35 Troponin I High Sens 10.1 pg/ml (0-20) 06/24/24 19:35 Total Protein 7.1 gm/dl (6.0-8.3) 06/24/24 19:35 Albumin 4.5 gm/dl (3.4-5.0) 06/24/24 19:35 Globulin 2.6 gm/dl (2.5-4.0) 06/24/24 19:35 Albumin/Globulin Ratio 1.7 (0.9-2) 06/24/24 19:35 Lipase 447 U/L (11-82) H 06/24/24 19:35 Ethyl Alcohol mg/dL < 10.0 mg/dl (<10.0) 06/24/24 20:02 Impressions Chest X-Ray 06/24/24 19:36 XR chest 1V portable CLINICAL HISTORY: Chest pain, nonspecific TECHNIQUE: Single frontal radiograph of the chest was obtained. Comparison: Comparison is made to chest radiograph 03/28/2024 FINDINGS: No lines and tubes are seen. The cardiomediastinal silhouette is normal. The lungs are clear. No evidence of pleural effusion or pneumothorax. IMPRESSION: No acute chest disease. ACT 112: Negative or not required by law. Electronically signed by: Vadim Cunha M.D. 06/24/2024 7:51 PM Abdomen/Pelvis CT 06/24/24 20:59 Exam(s): CT ABDOMEN + PELVIS With Contrast IV Amt: 92 ML OPTIRAY 320 EXAM: CT Abdomen and Pelvis With Intravenous Contrast CLINICAL HISTORY: Reason for exam: abd pain, h/o gastritis, recurrent pancreatitis. TECHNIQUE: Axial computed tomography images of the abdomen and pelvis with intravenous contrast. CTDI is 9.03 mGy and DLP is 440.59 mGy-cm. Automated exposure control was utilized for the study. A dose lowering technique was utilized adhering to the principles of ALARA. CONTRAST: Patient received 92 ML OPTIRAY 320 of IV contrast COMPARISON: CT abdomen and pelvis: 03/28/2024 FINDINGS: Lung bases: Unremarkable. No mass. No consolidation. ABDOMEN: Liver: Unremarkable. No mass. Gallbladder and bile ducts: The gallbladder has been removed. No ductal dilation. Pancreas: There is persistent heterogeneous enhancement of the mildly enlarged pancreatic head and mild peripancreatic inflammatory stranding consistent with history of pancreatitis. Pancreatic ductal dilatation identified. There are a few associated pancreatic parenchymal calcifications suggestive of a background chronic pancreatitis. Clinical correlation and follow-up recommended. Spleen: Unremarkable. No splenomegaly. Adrenals: Unremarkable. No mass. Kidneys and ureters: There is a small simple right renal cyst. No solid renal mass or hydronephrosis identified. Stomach and bowel: Unremarkable. No obstruction. No mucosal thickening. PELVIS: Appendix: The appendix is normal. Bladder: Unremarkable. No mass. Reproductive: Unremarkable as visualized. ABDOMEN and PELVIS: Intraperitoneal space: Unremarkable. No free air. No significant fluid collection. Bones/joints: No acute fracture. No dislocation. Soft tissues: Unremarkable. Vasculature: There is scattered aortoiliac atherosclerotic calcifications. There is a small simple cyst noted in the medial segment left hepatic lobe. No abdominal aortic aneurysm. Lymph nodes: Unremarkable. No enlarged lymph nodes. IMPRESSION: 1. Findings consistent with acute pancreatitis with associated background findings of chronic pancreatitis as described above. Clinical correlation and follow-up recommended. Electronically signed by: Ankur Wing MD 06/25/24 00:28 AM ECG Additional Comments: ECG. Sinus rhythm with sinus arrhythmia with short IN with rate of 80. Possible left atrial enlargement. No significant change was found. Code Status & VTE Plan VTE Prophylaxis Plan VTE Prophylaxis will be ordered: Yes
[2024-06-25] MEDS ORDERED: DICYCLOMINE HCL 10 MG CAP PO PRN (04:02)
[2024-06-25] MEDS ORDERED: HYDROmorphone INJ 0.5 MG/0.5 ML SYR IV PRN (04:02)
[2024-06-25] MEDS ORDERED: ONDANSETRON INJ 2 MG/ML 2 ML VIAL IV PRN (04:02)
[2024-06-25] MEDS ORDERED: ACETAMINOPHEN 325 MG TAB PO PRN (04:02)
[2024-06-25] MEDS: HYDROmorphone INJ 0.5 MG/0.5 ML SYR IV PRN (04:15)
[2024-06-25] MEDS: LACTATED RINGER'S 1,000 ML IV SCH (04:15)
[2024-06-25 04:37] LABS: Amphetamines+Metham, Urine Neg (Neg); Barbiturates, Urine Neg (Neg); Benzodiazepine, Urine Neg (Neg); Cocaine, Urine Neg (Neg); Fentanyl, Urine Neg (Neg); MDMA (Ecstacy), Urine Neg (Neg); Marijuana, Urine Neg (Neg); Methadone, Urine Neg (Neg); Opiate, Urine Neg (Neg); Phencyclidine, Urine Neg (Neg)
[2024-06-25 07:28] VITALS: RESP 16; TEMP 97.7; O2SAT 97
[2024-06-25 08:40] VITALS: BP 127/74; PULSE 55
[2024-06-25] MEDS: ROSUVASTATIN CALCIUM 20 MG TAB PO SCH (08:40)
[2024-06-25] MEDS: MAGNESIUM OXIDE 400 MG TAB PO SCH (08:40)
[2024-06-25] MEDS: PANTOprazole 40 MG TAB PO SCH (08:40)
[2024-06-25] MEDS: METOPROLOL SUCC 25MG EXT REL TAB PO SCH (08:41)
[2024-06-25] MEDS: SERTRALINE HCL 100 MG TABLET PO SCH (08:41)
[2024-06-25] MEDS: TICAGRELOR 90 MG TAB PO SCH (08:41)
[2024-06-25] MEDS: SUCRALFATE 1 GM TAB PO SCH (08:41)
[2024-06-25] MEDS: EZETIMIBE 10 MG TAB PO SCH (08:41)
[2024-06-25] MEDS: ASPIRIN 81 MG ECTAB PO SCH (08:43)
[2024-06-25] MEDS: ENOXAPARIN INJ 40 MG/0.4 ML SYR SQ SCH (08:43)
[2024-06-25] MEDS: LOSARTAN POTASSIUM 25 MG TAB PO SCH (08:43)
--- NOTE | 2024-06-25 08:44 | Hospitalist Progress Note ---
Date of Service June 25, 2024 Assessment & Plan (1) Acute on chronic pancreatitis: Plan: 53-year-old male with past medical history significant for dyslipidemia, history of ST elevated [place], CAD status post stent, heart failure with reduced ejection fraction EF 35 to 40%, nonsustained ventricular tachycardia, history of bradycardia, Casanova's esophagus, GERD, tobacco use disorder, general anxiety disorder, history of recurrent pancreatitis comes because of abdominal pain.Patient states since yesterday having abdominal pain 8/10 in severity associate with nausea. No vomiting. No chest pain or shortness of breath. No headache. No dizziness. No runny nose or sore throat or cough. Afebrile. Normal bowel and bladder movements. Hemodynamics are okay. Acute on chronic pancreatitis History of recurrent pancreatitis Presents with abdominal pain CT abdomen and pelvis consistent with acute pancreatitis with associated background finding of chronic pancreatitis N.p.o. IV LR at rate of 100 mL/h IV Dilaudid as needed S/p EGD on 03/30/2024 which showed mild chronic gastritis Plan for endoscopy on Wednesday GI consult in a.m. History of premature CAD s/p stent On aspirin and Brilinta, statin and metoprolol succinate . Chronic systolic CHF EF 35 to 40% On metoprolol succinate and losartan Getting fluids Will monitor for volume overload Casanova's esophagus PPI and famotidine and sucralfate Nonsustained ventricular tachycardia On metoprolol succinate Borderline tachybradycardia syndrome Possible future device implantation as per cardiology notes Ongoing tobacco abuse Needs counseling Hyperlipidemia On statin and Zetia Hypertension Metoprolol succinate and losartan . DVT prophylaxis Lovenox Disposition Medical floor Full code Please note the above document was generated using voice recognition software. It may contain grammatical, syntax or spelling errors. Any formal questions or concerns about the content, text or information contained within the body of this dictation should be directly addressed to the provider for clarification Admission and Anticipated Discharge Date Admission Date: June 25, 2024 Subjective Patient seen and examined at bedside. He is comfortable; not in distress He reports pain in mid to lower abdomen Review of Systems Review of Systems: All systems reviewed & are unremarkable except as noted in Subjective Physical Exam Physical Exam: General-Not in distress Head- atraumatic Eyes- PERRL, EOMI. ENT- oropharynx clear Neck- supple, no JVD. Lungs- clear to auscultation no wheezing or crackles Heart- regular rhythm; no murmur, no gallop. Abdomen- normal bowel sounds, soft, nontender, no distension Extremities- no pretibial edema, no erythema seen Neuro- alert, oriented PERRL, EOMI; no facial palsy; no dysarthria; moves extremities Results & Data Results & Data Vital Signs (Past 12 Hours) Vital Signs Temp Pulse Pulse Resp BP Pulse Ox O2 Del Method 06/25/24 08:38 55 L 127/74 06/25/24 07:27 36.5 C 58 L 16 104/67 97 Room Air 06/25/24 05:00 Room Air 06/25/24 04:15 Room Air 06/25/24 04:15 36.7 C 56 L 20 146/80 H 99 Room Air 06/25/24 04:15 36.7 C 56 L 20 146/80 H 99 Room Air 06/25/24 03:46 61 18 117/83 97 Room Air 06/25/24 03:42 Room Air 06/25/24 02:00 60 16 125/79 95 Room Air 06/25/24 00:00 60 16 137/84 97 Room Air 06/24/24 23:53 59 L 06/24/24 23:13 52 L 16 135/87 96 Room Air 06/24/24 21:13 61 20 98 Room Air
--- NOTE | 2024-06-25 09:07 | Gastrointestinal Consultation ---
Date of Consultation June 25, 2024 Assessment & Plan (1) Acute on chronic pancreatitis: Pleasant man with an acute flare of pancreatitis on top of his chronic pancreatitis. This is very typical for him and he has ten years of experience with it. No intervention needed from inpatient GI and his pain is gone. I suspect he can go home and follow up with Dr. Gross for his regularly scheduled EGD later this week. History of Present Illness Reason for Consultation: acute on chronic pancreatitis Attending Physician: Lukas Santos MD History of Present Illness 53 year old man with a ten year history of chronic pancreatitis with intermittent flare ups. He tells me his last flare up was two weeks ago that he managed on his own. Yesterday about 2 pm he developed abdominal pain and nausea that were of such variety that he felt the need for admission. He tells me this is his typical flare. He no longer drinks alcohol and is unaware of any instigating factors that caused this flare. He follows with Dr. Gross and is scheduled for an EGD this Wednesday. Today he feels almost back to normal Allergies Allergy/AdvReac Type Severity Reaction Status Date / Time isosorbide [From Imdur] AdvReac Severe severe Verified 05/12/24 21:26 migraine Home Medications Medication Instructions Recorded Confirmed Type aspirin 81 mg tablet,delayed 81 mg PO DAILY 06/25/24 06/25/24 History release dicyclomine 10 mg capsule 10 mg PO BID PRN Abdominal Pain 06/25/24 06/25/24 History ezetimibe 10 mg tablet 10 mg PO DAILY 06/25/24 06/25/24 History famotidine 40 mg tablet 40 mg PO HS 06/25/24 06/25/24 History losartan 25 mg tablet 25 mg PO DAILY 06/25/24 06/25/24 History magnesium oxide 400 mg (241.3 mg 400 mg PO DAILY 06/25/24 06/25/24 History magnesium) tablet metoprolol succinate 25 mg 25 mg PO BID 06/25/24 06/25/24 History tablet,extended release 24 hr pantoprazole 40 mg tablet,delayed 40 mg PO BID 06/25/24 06/25/24 History release rosuvastatin 40 mg tablet 40 mg PO DAILY 06/25/24 06/25/24 History sertraline 100 mg tablet 100 mg PO DAILY 06/25/24 06/25/24 History sucralfate 1 gram tablet 1 g PO ACHS 06/25/24 06/25/24 History ticagrelor 90 mg tablet (Brilinta) 90 mg PO BID 06/25/24 06/25/24 History Patient History Medical History ST elevation myocardial infarction (STEMI) COVID-29 Oct 2021 Mobitz type 2 second degree atrioventricular block Tobacco abuse Splenic infarct Surgical History History of endoscopic retrograde cholangiopancreatography x2 (08/31, 09/30) History of vasectomy Family History Mother Gallbladder disease Sister Gallbladder disease Other Diabetes Stroke Denies family history of Pancreatic disease Social History Smoking Status: Current every day smoker Tobacco Type: Cigarettes Cigarettes Per Day: 10/day; Second Hand Exposure: No; Do You Dip or Chew Tobacco: No; Hx Alcohol Use: No Hx Substance Use: No Preferred Language: Albanian Communication Ability: Effective Signals Intelligence Analyst Required: No Beliefs That Will Affect Care: None marital status: Single Current Living Situation: Alone current occupational status: employed Other Information That Helps Us Care for You: No Feels Safe at Home: Yes Safety Concerns: Feels Safe At This Time Assistive Devices: Glasses Review of Systems Review of Systems: All systems reviewed & are unremarkable except as noted in HPI & below Physical Exam Physical Exam: He looks comfortable Constitutional: WD/WN, vitals as above Neck: trachea midline, no thyromegaly Respiratory: normal respiratory effort, lungs clear to auscultation Cardiovascular: RRR, no murmur, no edema Gastrointestinal (Abdomen): normal bowel sounds, soft, nontender, no hepatosplenomegaly Musculoskeletal: Extremities: extremities normal to inspection Results & Data Vital Signs (Past 12 Hours) Vital Signs Temp Pulse Pulse Resp BP Pulse Ox O2 Del Method 06/25/24 08:38 55 L 127/74 06/25/24 07:27 36.5 C 58 L 16 104/67 97 Room Air 06/25/24 05:00 Room Air 06/25/24 04:15 Room Air 06/25/24 04:15 36.7 C 56 L 20 146/80 H 99 Room Air 06/25/24 04:15 36.7 C 56 L 20 146/80 H 99 Room Air 06/25/24 03:46 61 18 117/83 97 Room Air 06/25/24 03:42 Room Air 06/25/24 02:00 60 16 125/79 95 Room Air 06/25/24 00:00 60 16 137/84 97 Room Air 06/24/24 23:53 59 L 06/24/24 23:13 52 L 16 135/87 96 Room Air 06/24/24 21:13 61 20 98 Room Air Laboratory Results 06/25/24 06/24/24 06/24/24 Range/Units 03:45 20:02 19:35 WBC 9.33 (4.8-10.8) K/ul RBC 4.39 L (4.70-6.10) M/uL Hgb 14.7 (14.0-18.0) g/dl Hct 43.2 (42.0-52.0) % MCV 98.4 (80.0-100.0) fL MCH 33.5 (25.0-34.0) pg MCHC 34.0 (32.0-36.0) g/dL RDW Std Deviation 48.0 H (36.4-46.3) fL RDW Coeff of Mckinley 13.2 (11.5-14.5) % Plt Count 266 (130-400) K/uL MPV 9.1 L (9.4-12.4) fL Immature Gran % (Auto) 0.4 % Neut % (Auto) 69.7 % Lymph % (Auto) 21.8 % [place] % (Auto) 4.7 % Eos % (Auto) 2.6 % Baso % (Auto) 0.8 % Neut # (Auto) 6.51 H (1.40-6.50) K/uL Lymph # (Auto) 2.03 (1.20-3.40) K/uL [place] # (Auto) 0.44 (0.11-0.59) K/uL Eos # (Auto) 0.24 (0.00-0.50) K/uL Baso # (Auto) 0.07 (0.00-0.20) K/uL Immature Gran # (Auto) 0.04 (0.01-0.20) K/uL Sodium 139 (136-145) mmol/L Potassium 4.2 (3.5-5.1) mmol/L Chloride 106 (98-107) mmol/L Carbon Dioxide 25 (21-32) mmol/L Anion Gap 8 (3-11) BUN 14 (6-23) mg/dl Creatinine 1.29 (0.6-1.4) mg/dl Est Cr Clr Drug Dosing 51.6 ml/min Est GFR ( Amer) 72.4 ml/min Est GFR (Non-Af Amer) 62.4 ml/min BUN/Creatinine Ratio 10.9 (10-20) Glucose 159 H (70-99(Fasting)) mg/dl Calcium 9.3 (8.6-10.3) mg/dl Total Bilirubin 0.3 (0.2-1.0) mg/dl Direct Bilirubin 0.0 (0-0.2) mg/dl AST 14 (13-39) U/L ALT 15 (7-52) U/L Alkaline Phosphatase 79 (34-104) U/L Troponin I High Sens 10.1 (0-20) pg/ml Total Protein 7.1 (6.0-8.3) gm/dl Albumin 4.5 (3.4-5.0) gm/dl Globulin 2.6 (2.5-4.0) gm/dl Albumin/Globulin Ratio 1.7 (0.9-2) Lipase 447 H (11-82) U/L Urine Opiates Screen Neg (Neg) Ur Methadone, Qual Neg (Neg) Urine Fentanyl Screen Neg (Neg) Urine Barbiturates Neg (Neg) Ur Phencyclidine (PCP) Neg (Neg) U Amphetamin/Meth Scrn Neg (Neg) MDMA (Ecstasy) Screen Neg (Neg) U Benzodiazepines Scrn Neg (Neg) Ur Cocaine Metabolite Neg (Neg) U Marijuana (THC) Screen Neg (Neg) Ethyl Alcohol mg/dL < 10.0 (<10.0) mg/dl Diagnostic Findings Chest X-Ray 06/24/24 19:36 XR chest 1V portable CLINICAL HISTORY: Chest pain, nonspecific TECHNIQUE: Single frontal radiograph of the chest was obtained. Comparison: Comparison is made to chest radiograph 03/28/2024 FINDINGS: No lines and tubes are seen. The cardiomediastinal silhouette is normal. The lungs are clear. No evidence of pleural effusion or pneumothorax. IMPRESSION: No acute chest disease. ACT 112: Negative or not required by law. Electronically signed by: Vadim Cunha M.D. 06/24/2024 7:51 PM Abdomen/Pelvis CT 06/24/24 20:59 Exam(s): CT ABDOMEN + PELVIS With Contrast IV Amt: 92 ML OPTIRAY 320 EXAM: CT Abdomen and Pelvis With Intravenous Contrast CLINICAL HISTORY: Reason for exam: abd pain, h/o gastritis, recurrent pancreatitis. TECHNIQUE: Axial computed tomography images of the abdomen and pelvis with intravenous contrast. CTDI is 9.03 mGy and DLP is 440.59 mGy-cm. Automated exposure control was utilized for the study. A dose lowering technique was utilized adhering to the principles of ALARA. CONTRAST: Patient received 92 ML OPTIRAY 320 of IV contrast COMPARISON: CT abdomen and pelvis: 03/28/2024 FINDINGS: Lung bases: Unremarkable. No mass. No consolidation. ABDOMEN: Liver: Unremarkable. No mass. Gallbladder and bile ducts: The gallbladder has been removed. No ductal dilation. Pancreas: There is persistent heterogeneous enhancement of the mildly enlarged pancreatic head and mild peripancreatic inflammatory stranding consistent with history of pancreatitis. Pancreatic ductal dilatation identified. There are a few associated pancreatic parenchymal calcifications suggestive of a background chronic pancreatitis. Clinical correlation and follow-up recommended. Spleen: Unremarkable. No splenomegaly. Adrenals: Unremarkable. No mass. Kidneys and ureters: There is a small simple right renal cyst. No solid renal mass or hydronephrosis identified. Stomach and bowel: Unremarkable. No obstruction. No mucosal thickening. PELVIS: Appendix: The appendix is normal. Bladder: Unremarkable. No mass. Reproductive: Unremarkable as visualized. ABDOMEN and PELVIS: Intraperitoneal space: Unremarkable. No free air. No significant fluid collection. Bones/joints: No acute fracture. No dislocation. Soft tissues: Unremarkable. Vasculature: There is scattered aortoiliac atherosclerotic calcifications. There is a small simple cyst noted in the medial segment left hepatic lobe. No abdominal aortic aneurysm. Lymph nodes: Unremarkable. No enlarged lymph nodes. IMPRESSION: 1. Findings consistent with acute pancreatitis with associated background findings of chronic pancreatitis as described above. Clinical correlation and follow-up recommended. Electronically signed by: Ankur Wing MD 06/25/24 00:28 AM
--- NOTE | 2024-06-25 13:33 | Discharge Summary ---
Date of Service June 25, 2024 Admission HPI Per Admitting Provider 53-year-old male with past medical history significant for dyslipidemia, history of ST elevated DC, CAD status post stent, heart failure with reduced ejection fraction EF 35 to 40%, nonsustained ventricular tachycardia, history of bradycardia, Casanova's esophagus, GERD, tobacco use disorder, general anxiety disorder, history of recurrent pancreatitis comes because of abdominal pain.Patient states since yesterday having abdominal pain 8/10 in severity associate with nausea. No vomiting. No chest pain or shortness of breath. No headache. No dizziness. No runny nose or sore throat or cough. Afebrile. No rmal bowel and bladder movements. Hemodynamics are okay. Past medical history. As mentioned above Past surgical history. Colonoscopy. Cardiac cath. S/p cardiac stent. EGD. EGD with endoscopic ultrasound. ERCP. Vasectomy. Social history. Smokes half pack a day for 31 years. Currently no alcohol use. No drug use. Family history. Mother had diabetes. Stroke. Father had hypertension. Admission Exam Per Admitting Provider General-Not in distress Head- atraumatic Eyes- PERRL, EOMI. ENT- oropharynx clear Neck- supple, no JVD. Lungs- clear to auscultation no wheezing or crackles Heart- regular rhythm; no murmur, no gallop. Abdomen- normal bowel sounds, soft, nontender, no distension Extremities- no pretibial edema, no erythema seen Neuro- alert, oriented PERRL, EOMI; no facial palsy; no dysarthria; moves extremities Principal Diagnosis Acute on chronic pancreatitis Discharge Exam General-Not in distress Head- atraumatic Eyes- PERRL, EOMI. ENT- oropharynx clear Neck- supple, no JVD. Lungs- clear to auscultation no wheezing or crackles Heart- regular rhythm; no murmur, no gallop. Abdomen- normal bowel sounds, soft, nontender, no distension Extremities- no pretibial edema, no erythema seen Neuro- alert, oriented PERRL, EOMI; no facial palsy; no dysarthria; moves extremities Discharge Data Allergies Allergy/AdvReac Type Severity Reaction Status Date / Time isosorbide [From Imdur] AdvReac Severe severe Verified 05/12/24 21:26 migraine Consultations 06/25/24 00:53 ED Decision to Admit Stat 06/25/24 08:00 Consult Gastroenterology Routine Ordered Studies 06/24/24 20:59 CT abd pelvis IV con only Stat Hospital Course (1) Acute on chronic pancreatitis: 53-year-old male with past medical history significant for dyslipidemia, history of ST elevated DC, CAD status post stent, heart failure with reduced ejection fraction EF 35 to 40%, nonsustained ventricular tachycardia, history of bradycardia, Casanova's esophagus, GERD, tobacco use disorder, general anxiety disorder, history of recurrent pancreatitis comes because of abdominal pain. Patient states since having abdominal pain 8/10 in severity associate with nausea for one day. No vomiting. No chest pain or shortness of breath. No headache. No dizziness. No runny nose or sore throat or cough. Afebrile. Normal bowel and bladder movements. Acute on chronic pancreatitis History of recurrent pancreatitis Presents with abdominal pain CT abdomen and pelvis consistent with acute pancreatitis with associated background finding of chronic pancreatitis Patient was admitted to medical surgical floor. He was started on IV fluids, analgesics. GI was consulted for comanagement. Reported improvement in symptoms during the hospitalization. He was able to tolerate low-fat diet. He was discharged home; instructions given to follow low-fat diet. He was provided prescription for oxycodone for recurrence of pain. Please note the above document was generated using voice recognition software. It may contain grammatical, syntax or spelling errors. Any formal questions or concerns about the content, text or information contained within the body of this dictation should be directly addressed to the provider for clarification Total Time Total Time Spent Total Time Spent (In Minutes): 34 Total Time Includes: Examination of the Patient, Discharge Planning, Medication Reconciliation, Communication With Other Providers and Other Discharge Plan Discharge Items Patient Disposition: Home - Self-Care Reason For Visit: ACUTE PANCREATITS Discharge Diagnosis: Acute on chronic pancreatitis Activity: Resume your previous activity Non-emergency contact: Primary Care Provider Call non-emergency contact if: you have any medication questions and your symptoms worsen Follow-up/Referrals: Wade Bragg MD [Primary Care Provider] - Diet: Low Fat Addtl Attending Provider Instructions: You were admitted to the hospital with acute on chronic pancreatitis. Please continue to follow low fat diet. You are prescribed oxycodone to be taken as needed for abdominal pain. Pending Studies at Discharge: No Stand-Alone Forms: My [facility], Smoking Cessation Medications and DC Order Prescriptions: New oxycodone 5 mg tablet 5 mg PO DAILY PRN (Reason: pain) Qty: 14 0RF Continued sucralfate 1 gram tablet 1 g PO ACHS famotidine 40 mg tablet 40 mg PO HS sertraline 100 mg tablet 100 mg PO DAILY aspirin 81 mg tablet,delayed release (DR/EC) 81 mg PO DAILY magnesium oxide 400 mg (241.3 mg magnesium) tablet 400 mg PO DAILY pantoprazole 40 mg tablet,delayed release (DR/EC) 40 mg PO BID losartan 25 mg tablet 25 mg PO DAILY metoprolol succinate 25 mg tablet extended release 24 hr 25 mg PO BID dicyclomine 10 mg capsule 10 mg PO BID PRN (Reason: Abdominal Pain) ezetimibe 10 mg tablet 10 mg PO DAILY rosuvastatin 40 mg tablet 40 mg PO DAILY Brilinta 90 mg tablet 90 mg PO BID Discharge Orders: Discharge Order (Routine); Ordered 06/25/24 Ordered By: Luaks Santos Admission Data Admit Date/Time: 06/25/24 02:36 Attending Provider: Lukas Santos Admit Provider: Rosales Singh Primary Care Provider: Wade Bragg Other Providers: Rosales Singh; Milton Rosales
[2024-06-25] MEDS ORDERED: FAMOTIDINE 40 MG TABLET PO SCH (21:00)
--- NOTE | 2024-06-27 05:43 | Electrocardiogram Report ---
Test Reason : Blood Pressure : */* mmHG Vent. Rate : 80 BPM Atrial Rate : 80 BPM P-R Int : 104 ms QRS Dur : 88 ms QT Int : 346 ms P-R-T Axes : 83 54 23 degrees QTcB Int : 399 ms Sinus rhythm with sinus arrhythmia with short GA Possible Left atrial enlargement Inferior infarct (cited on or before 20-May-2023) Abnormal ECG When compared with ECG of 12-May-2024 22:32, No significant change was found Confirmed by Tanvir Horne ([id number]) on 06/27/2024 5:42:57 AM Referred By: REFERRED SELF Confirmed By: Tanvir Horne
== END 2024-06-25 13:56 | disposition home or self-care (01) ==
LOC: ED 19:12 → 3E 06-25 02:36 → INTOOBSV 06-25 02:36 → 3E 06-25 03:42

== ENCOUNTER 2024-06-30 11:24 | Inpatient (IN) ==
[2024-06-30] MEDS: SODIUM CHLORIDE 0.9% 500 ML IV STA (12:08)
[2024-06-30] MEDS: MoRPHine SULFATE 4 MG/ML 1 ML CARP\\VIAL IV PRN (12:09)
[2024-06-30 12:22] LABS: Basophils # (auto) 0.07 K/uL (0.00-0.20); Basophils % (auto) 0.7 %; Eosinophils # (auto) 0.14 K/uL (0.00-0.50); Eosinophils % (auto) 1.4 %; Hematocrit (blood only) 37.5 % (42.0-52.0); Hemoglobin 13.5 g/dl (14.0-18.0); Immature Granulocytes # (auto) 0.03 K/uL (0.01-0.20); Immature Granulocytes % (auto) 0.3 %; Lymphocytes # (auto) 1.81 K/uL (1.20-3.40); Lymphocytes % (auto) 18.2 %; Mean Corpuscular Hemoglobin 34.3 pg (25.0-34.0); Mean Corpuscular Volume 95.2 fL (80.0-100.0); Mean Platelet Volume 9.4 fL (9.4-12.4); Monocytes # (auto) 0.46 K/uL (0.11-0.59); Monocytes % (auto) 4.6 %; Neutrophils # (auto) 7.43 K/uL (1.40-6.50); Neutrophils % (auto) 74.8 %; Platelet Count 254 K/uL (130-400); RDW Coefficient of Variation 12.9 % (11.5-14.5); Red Blood Count 3.94 M/uL (4.70-6.10); White Blood Count 9.94 K/ul (4.8-10.8)
[2024-06-30 12:41] LABS: Albumin Globulin Ratio 1.9 (0.9-2); Albumin Level 4.1 gm/dl (3.4-5.0); BUN Creatinine Ratio 14.6 (10-20); Bilirubin,Total 0.4 mg/dl (0.2-1.0); Calcium 8.8 mg/dl (8.6-10.3); Creatinine Clr Calc Pharmacy 71.3 ml/min; Globulin 2.2 gm/dl (2.5-4.0); Magnesium 1.6 mg/dl (1.7-2.4); Potassium 3.5 mmol/L (3.5-5.1); Total Protein 6.3 gm/dl (6.0-8.3)
--- NOTE | 2024-06-30 12:45 | Emergency Department Note ---
Impression & Plan Epigastric abdominal pain, Acute pancreatitis, Elevated lipase, History of insertion of pancreatic stent, Hypomagnesemia ED Provider Note NAME: SAMUEL RIDER AGE: 53 SEX: M : 1970 ARRIVES VIA: Ambulance INFORMANT: [Patient] ED PROVIDER(S): [Angel Rodriguez MD] CHIEF COMPLAINT: Abdominal pain HISTORY OF PRESENT ILLNESS: The patient is a 53-year-old male who had a pancreatic stent placed 2 days ago. He was in the ED after the stent placement with pain. Workup showed the stent to be in position, he was discharged. The patient presents back today with increasing pain that has been more severe for the last 8 hours. It is in the epigastrium and right upper quadrant. It is stabbing in nature. He has had some nausea, no vomiting. He has been sweating. There has been no fever. No cough or congestion or shortness of breath. No urinary complaints. En route to the hospital, he did receive some morphine by EMS. PMHx/PSHx/Social Hx: See Below PHYSICAL EXAM: GENERAL: Patient is in moderate distress from pain. HEENT: No acute trauma, normocephalic atraumatic, mucous membranes moist, no nasal congestion. NECK: No stridor, no adenopathy, no meningismus, trachea is midline. LUNGS: Clear to auscultation bilaterally, no wheeze, no rhonchi, breath sounds equal. HEART: Without murmurs gallops or rubs, regular rate and rhythm. ABDOMEN: Soft, no distention. Tender in the upper epigastric region. EXTREMITIES: No cyanosis, full range of motion of all the joints without pain or difficulty. NEUROLOGIC: Oriented x 3, no acute motor or sensory deficits, no focal weakness. SKIN: No jaundice, no diaphoresis. DIFFERENTIAL DIAGNOSIS: Stent malposition, pancreatitis, gastritis, acute on chronic pain, bowel obstruction, among others. EMERGENCY DEPARTMENT PROCEDURES: MEDICAL DECISION MAKING: There is no leukocytosis. A mild anemia was seen. There was a normal platelet count. No renal failure. Magnesium was somewhat low at 1.6. There was no concerning liver enzyme elevation. Lipase was elevated consistent with pancreatitis. ECG showed a sinus rhythm, no ST elevation. Cardiac enzyme testing x 1 was not consistent with acute cardiac injury. Abdominal and pelvis CT shows his pancreatic stent to be in proper position. Pancreatitis was seen. No bowel obstruction. On exam, the patient was complaining of pain in the epigastrium. The patient received IV saline, 1 L. He was given IV magnesium. He was given IV morphine for pain. Patient appears to have acute pancreatitis as the cause for his presentation. He has had this problem before. Given the findings, given his presentation, hospitalization is indicated. I spoke with the patient and case management. The on-call hospitalist was consulted. Patient appears markedly improved since being treated in the ED. Prior/Outside records/notes reviewed: Today's EMS notes describing his presentation and transport to this hospital. ECG per my interpretation: Indication was abdominal pain. The ECG shows a sinus rhythm with a shorter WV. The rate is 80. There is significant baseline artifact. I see no acute ST elevation I see no PVCs. The QTc was 405. Continuous Cardiac Monitoring per my interpretation: An order was placed for continuous cardiac monitoring. The monitor shows a rate of 78 with normal sinus rhythm. Imaging/x-ray results per my interpretation: Chronic Medical/Social conditions affecting care: History of chronic pancreatitis. Care/Management discussed with: Case management, the on-call hospitalist. Level of care consideration(s): After review of the information above and other included data: --I believe the patient requires escalation of care to admission DISPOSITION: Admission Past Med/Surg History Problem List (Updated 06/30/24 @ 19:44 by Angel Rodriguez MD) Hypomagnesemia (Acute) History of insertion of pancreatic stent (Acute) Elevated lipase (Acute) Acute pancreatitis (Acute) Epigastric abdominal pain (Acute) History of chronic pancreatitis (Acute) S/P ERCP (Acute) Chest pain (Acute) Abdominal pain (Acute) Acute on chronic pancreatitis (Acute) Abdominal pain (Acute) Epigastric abdominal pain Abdominal pain, acute (Acute) Acute pancreatitis (Acute) SVT (supraventricular tachycardia) Chest pain (Acute) Acute pancreatitis (Acute) GERD (gastroesophageal reflux disease) Chest pain (Acute) Ischemic cardiomyopathy Non-sustained ventricular tachycardia (Acute) Elevated troponin (Acute) Bradycardia (Acute) Chronic pancreatitis Sinus bradycardia Chest pain (Acute) Hematoma Tobacco abuse Recurrent pancreatitis (Acute) Non-ST elevation (NSTEMI) myocardial infarction (Acute) Acute on chronic pancreatitis Abdominal pain (Acute) Lesion of pancreas Elevated lipase Pancreatitis (Acute) Chest pain (Acute) Chest pain Acute pancreatitis (Acute) Abdominal pain, periumbilical (Acute) Anemia Hypomagnesemia Hypophosphatemia Hx laparoscopic cholecystectomy (08/22/21) Laparoscopic Cholecystectomy Dr. Davidson 08/22/2021 Grade II diastolic dysfunction Barretts esophagus Acute pancreatitis (Acute) Non-ST elevation SC (NSTEMI) (Acute) Breath shortness (Acute) DVT prophylaxis Chest pain (Acute) HLD (hyperlipidemia) RADHA (generalized anxiety disorder) CAD (coronary artery disease) (Acute) 2018-RCA stent x 2 07/2020-STEMI, s/p PCI to left circumflex with 2 MELLY. Post procedure complicated by V. fib arrest requiring defibrillation. 12/2020-NSTEMI s/p 3 Xience MELLY to the distal aspect of prior stent of the left posterior lateral branch vessel Depression GERD (gastroesophageal reflux disease) (Acute) Medical History ST elevation myocardial infarction (STEMI) COVID-29 Oct 2021 Mobitz type 2 second degree atrioventricular block Tobacco abuse Splenic infarct Surgical History History of endoscopic retrograde cholangiopancreatography x2 (08/31, 09/30) History of vasectomy Family History Mother Gallbladder disease Sister Gallbladder disease Other Diabetes Stroke Denies family history of Pancreatic disease Social History Smoking Status: Current every day smoker Tobacco Type: Cigarettes Cigarettes Per Day: 10/day; Second Hand Exposure: No; Do You Dip or Chew Tobacco: No; Hx Alcohol Use: No Hx Substance Use: No Preferred Language: Barbadian Communication Ability: Effective 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 Required: No Beliefs That Will Affect Care: None marital status: Single Current Living Situation: Alone current occupational status: employed Feels Safe at Home: Yes Assistive Devices: Glasses Allergies Allergies Allergy/AdvReac Type Severity Reaction Status Date / Time isosorbide [From Imdur] AdvReac Severe severe Verified 06/30/24 15:00 migraine Home Meds Home Medications Medication Instructions Recorded Confirmed aspirin 81 mg tablet,delayed 81 mg PO DAILY 06/25/24 06/30/24 release ezetimibe 10 mg tablet 10 mg PO DAILY 06/25/24 06/30/24 famotidine 40 mg tablet 40 mg PO HS 06/25/24 06/30/24 losartan 25 mg tablet 12.5 mg PO DAILY 06/25/24 06/30/24 magnesium oxide 400 mg (241.3 mg 400 mg PO DAILY 06/25/24 06/30/24 magnesium) tablet metoprolol succinate 25 mg 25 mg PO BID 06/25/24 06/30/24 tablet,extended release 24 hr pantoprazole 40 mg tablet,delayed 40 mg PO BID 06/25/24 06/30/24 release rosuvastatin 40 mg tablet 40 mg PO DAILY 06/25/24 06/30/24 sertraline 100 mg tablet 100 mg PO DAILY 06/25/24 06/30/24 ticagrelor 90 mg tablet (Brilinta) 90 mg PO BID 06/25/24 06/30/24 Results & Data (ED) Vital Signs Vital Signs - 24 hr 06/30/24 11:31 06/30/24 11:36 06/30/24 12:11 Temperature 36.4 C L Temperature Source Oral Pulse Rate 98 H 98 H Pulse Rate [Apical] 77 Respiratory Rate 31 H 28 H 23 Blood Pressure 156/101 H Blood Pressure [Right Arm] 152/95 H Blood Pressure Mean 119 Blood Pressure Mean [Right Arm] 114 Pulse Oximetry 98 98 97 Oxygen Delivery Method Room Air Room Air Room Air Sepsis Recent Fever Within 48 Hours No Sepsis New/Unexplained Change in Mental Status N/A Sepsis Action Taken by Nursing No Action Required 06/30/24 12:31 06/30/24 13:00 06/30/24 15:00 Temperature Temperature Source Pulse Rate 78 Pulse Rate [Apical] 74 64 Respiratory Rate 18 22 Blood Pressure Blood Pressure [Right Arm] 95/63 L 95/61 L Blood Pressure Mean Blood Pressure Mean [Right Arm] 73 72 Pulse Oximetry 96 95 Oxygen Delivery Method Room Air Room Air Sepsis Recent Fever Within 48 Hours Sepsis New/Unexplained Change in Mental Status Sepsis Action Taken by Nursing 06/30/24 16:29 06/30/24 17:00 Temperature Temperature Source Pulse Rate 70 Pulse Rate [Apical] 55 L Respiratory Rate 15 Blood Pressure Blood Pressure [Right Arm] 99/66 L Blood Pressure Mean Blood Pressure Mean [Right Arm] 77 Pulse Oximetry 94 Oxygen Delivery Method Room Air Sepsis Recent Fever Within 48 Hours Sepsis New/Unexplained Change in Mental Status Sepsis Action Taken by [facility] Medications Current Medication List: was personally reviewed by me Laboratory Data Attestation: I reviewed the patient's lab results. 06/30/24 11:33 06/30/24 11:33 Lab Results 06/30/24 Range/Units 11:33 WBC 9.94 (4.8-10.8) K/ul RBC 3.94 L (4.70-6.10) M/uL Hgb 13.5 L (14.0-18.0) g/dl Hct 37.5 L (42.0-52.0) % MCV 95.2 (80.0-100.0) fL MCH 34.3 H (25.0-34.0) pg MCHC 36.0 (32.0-36.0) g/dL RDW Std Deviation 45.0 (36.4-46.3) fL RDW Coeff of Mckinley 12.9 (11.5-14.5) % Plt Count 254 (130-400) K/uL MPV 9.4 (9.4-12.4) fL Immature Gran % (Auto) 0.3 % Neut % (Auto) 74.8 % Lymph % (Auto) 18.2 % [place] % (Auto) 4.6 % Eos % (Auto) 1.4 % Baso % (Auto) 0.7 % Neut # (Auto) 7.43 H (1.40-6.50) K/uL Lymph # (Auto) 1.81 (1.20-3.40) K/uL [place] # (Auto) 0.46 (0.11-0.59) K/uL Eos # (Auto) 0.14 (0.00-0.50) K/uL Baso # (Auto) 0.07 (0.00-0.20) K/uL Immature Gran # (Auto) 0.03 (0.01-0.20) K/uL Sodium 135 L (136-145) mmol/L Potassium 3.5 (3.5-5.1) mmol/L Chloride 105 (98-107) mmol/L Carbon Dioxide 19 L (21-32) mmol/L Anion Gap 11 (3-11) BUN 15 (6-23) mg/dl Creatinine 1.03 (0.6-1.4) mg/dl Est Cr Clr Drug Dosing 71.3 ml/min Est GFR ( Amer) 95.0 ml/min Est GFR (Non-Af Amer) 82.0 ml/min BUN/Creatinine Ratio 14.6 (10-20) Glucose 96 (70-99(Fasting)) mg/dl Calcium 8.8 (8.6-10.3) mg/dl Magnesium 1.6 L (1.7-2.4) mg/dl Total Bilirubin 0.4 (0.2-1.0) mg/dl AST 17 (13-39) U/L ALT 15 (7-52) U/L Alkaline Phosphatase 55 (34-104) U/L Troponin I High Sens 14.4 D (0-20) pg/ml Total Protein 6.3 (6.0-8.3) gm/dl Albumin 4.1 (3.4-5.0) gm/dl Globulin 2.2 L (2.5-4.0) gm/dl Albumin/Globulin Ratio 1.9 (0.9-2) Lipase 400 H (11-82) U/L Administered Medications Lactated Ringer's (Lr) 1,000 mls @ 100 mls/hr IV .Q10H ALYCIA Stop: 07/30/24 15:44 Last Admin: 06/30/24 16:30 Dose: 100 mls/hr Documented By: THAI Morphine Sulfate (Morphine Sulfate 4 Mg/Ml 1 Ml Carp\Vial) 4 mg IV Q15M PRN PRN Reason: Pain Stop: 07/14/24 11:59 Last Admin: 06/30/24 16:32 Dose: 4 mg Documented By: Admin: 06/30/24 14:15 Dose: 4 mg Documented By: Admin: 06/30/24 12:34 Dose: 4 mg Documented By: Admin: 06/30/24 12:09 Dose: 4 mg Documented By: THAI Discontinued Medications Sodium Chloride (Nss) 500 mls @ 999 mls/hr IV .Q31M STA Stop: 06/30/24 12:30 Last Infusion: 06/30/24 12:34 Dose: Infused Documented By: Admin: 06/30/24 12:08 Dose: 999 mls/hr Documented By: THAI Magnesium Sulfate/Dextrose (Magnesium Sulfate / D5w) 1 gm in 100 mls @ 100 mls/hr IV NOW STA Stop: 06/30/24 13:46 Last Infusion: 06/30/24 14:38 Dose: Infused Documented By: Admin: 06/30/24 13:29 Dose: 100 mls/hr Documented By: THAI Sodium Chloride (Nss) 500 mls @ 999 mls/hr IV .Q31M ONE Stop: 06/30/24 13:55 Last Infusion: 06/30/24 14:10 Dose: Infused Documented By: Admin: 06/30/24 13:29 Dose: 999 mls/hr Documented By: THAI Ioversol (Optiray 320 100ml) 93 ml IV ONCE ONE Stop: 06/30/24 12:58 Last Admin: 06/30/24 12:57 Dose: 93 ml Documented By: EDK Imaging Data Radiologist's Impression: Abdomen/Pelvis CT 06/30/24 12:47 CT OF THE ABDOMEN AND PELVIS WITH CONTRAST CLINICAL HISTORY: Possible stent malposition, abdominal pain, elevated lipase. COMPARISON STUDY: CT of the abdomen and pelvis June 28, 2024. TECHNIQUE: Following IV administration of 93 mL of Optiray, axial images of the abdomen and pelvis were obtained from the lung bases to the proximal femurs. Images were reviewed in the axial, sagittal, and coronal planes. IV contrast was administered without complication. Automated exposure control was utilized for the study. A dose lowering technique was utilized adhering to the principles of ALARA. CT DOSE: 408.28 mGy.cm FINDINGS: Visualized portions of the lung bases are unremarkable. No pneumatosis, free air or portal venous gas is present. Mild biliary ductal dilatation has developed since prior exam. The gallbladder surgically absent. Common bile duct measures 9 mm in caliber. The spleen, adrenal glands and left kidney are normal. There is a right renal cyst. Pancreatic glandular atrophy is again noted. Pancreatic stent is unchanged in position. There is no pancreatic ductal dilatation. Moderate peripancreatic fluid is noted. Fluid adjacent to the pancreatic head was shown on prior exam. Fluid adjacent to the remainder of the pancreas is new. There is no evidence for gland necrosis. No peripancreatic fluid collections are present. Major vasculature is patent. There is no evidence for a bowel obstruction. Trace fluid within the pelvis. Sigmoid diverticulosis. No evidence for acute diverticulitis. Normal appendix. No lymphadenopathy. Moderate aortoiliac atherosclerotic plaque. Bladder is moderately distended. No hydronephrosis. IMPRESSION: 1. Progression of acute pancreatitis since CT of June 28, 2024. Increase in moderate peripancreatic fluid and stranding. No peripancreatic fluid collections. No evidence for gland necrosis. No change in position of the pancreatic stent. No pancreatic ductal dilatation. 2. Mild biliary ductal dilatation which has developed since prior exam. This could be correlated with lower function tests. 3. No bowel obstruction. No bowel wall thickening. 4. Distended bladder. ACT 112: Negative or not required by law. Electronically signed by: Urban Eastman M.D. 06/30/2024 1:15 PM Discharge Plan Visit Data Chief Complaint: Abdominal Pain Stated Complaint: AB PAIN ED Provider: Angel Rodriguez Discharge Problem: Epigastric abdominal pain, Acute pancreatitis, Elevated lipase, History of insertion of pancreatic stent, Hypomagnesemia Patient Disposition: Admitted As Inpatient Condition: Fair Forms Stand Alone Forms: My [employer] Prescriptions Prescriptions: No Action famotidine 40 mg tablet 40 mg PO HS sertraline 100 mg tablet 100 mg PO DAILY aspirin 81 mg tablet,delayed release (DR/EC) 81 mg PO DAILY magnesium oxide 400 mg (241.3 mg magnesium) tablet 400 mg PO DAILY pantoprazole 40 mg tablet,delayed release (DR/EC) 40 mg PO BID losartan 25 mg tablet 12.5 mg PO DAILY metoprolol succinate 25 mg tablet extended release 24 hr 25 mg PO BID ezetimibe 10 mg tablet 10 mg PO DAILY rosuvastatin 40 mg tablet 40 mg PO DAILY Brilinta 90 mg tablet 90 mg PO BID Referrals Referrals: Wade Bargg MD [Primary Care Provider] - Discharge Problem: Acute pancreatitis Qualifiers: Pancreatitis type: unspecified pancreatitis type Acute pancreatitis complication: unspecified Qualified Code(s): K85.90 - Acute pancreatitis without necrosis or infection, unspecified
[2024-06-30 12:49] LABS: Troponin I High Sensitivity 14.4 pg/ml (0-20)
[2024-06-30] MEDS: OPTIRAY 320 100ml IV ONE (12:57)
--- NOTE | 2024-06-30 13:16 | CT Scan Report ---
CT OF THE ABDOMEN AND PELVIS WITH CONTRAST CLINICAL HISTORY: Possible stent malposition, abdominal pain, elevated lipase. COMPARISON STUDY: CT of the abdomen and pelvis June 28, 2024. TECHNIQUE: Following IV administration of 93 mL of Optiray, axial images of the abdomen and pelvis we re obtained from the lung bases to the proximal femurs. Images were reviewed in the axial, sagittal, and coronal planes. IV contrast was administered without complication. Automated exposure control wa s utilized for the study. A dose lowering technique was utilized adhering to the principles of ALARA . CT DOSE: 408.28 mGy.cm FINDINGS: Visualized portions of the lung bases are unremarkable. No pneumatosis, free air or portal venous gas is present. Mild biliary ductal dilatation has developed since prior exam. The gallbladder surgically absent. Common bile duct measures 9 mm in caliber. The spleen, adrenal glands and left ki dney are normal. There is a right renal cyst. Pancreatic glandular atrophy is again noted. Pancreatic stent is unchanged in position. There is no pancreatic ductal dilatation. Moderate peripancreatic fl uid is noted. Fluid adjacent to the pancreatic head was shown on prior exam. Fluid adjacent to the re mainder of the pancreas is new. There is no evidence for gland necrosis. No peripancreatic fluid maynor ections are present. Major vasculature is patent. There is no evidence for a bowel obstruction. Trace fluid within the pelvis. Sigmoid diverticulosis. No evidence for acute diverticulitis. Normal append ix. No lymphadenopathy. Moderate aortoiliac atherosclerotic plaque. Bladder is moderately distended. No hydronephrosis. IMPRESSION: 1. Progression of acute pancreatitis since CT of June 28, 2024. Increase in moderate peripancrea tic fluid and stranding. No peripancreatic fluid collections. No evidence for gland necrosis. No kruse ge in position of the pancreatic stent. No pancreatic ductal dilatation. 2. Mild biliary ductal dilatation which has developed since prior exam. This could be correlated with lower function tests. 3. No bowel obstruction. No bowel wall thickening. 4. Distended bladder. ACT 112: Negative or not required by law. Electronically signed by: Urban Eastman M.D. 06/30/2024 1:15 PM
--- NOTE | 2024-06-30 13:20 | Electrocardiogram Report ---
Test Reason : Blood Pressure : */* mmHG Vent. Rate : 80 BPM Atrial Rate : 80 BPM P-R Int : 94 ms QRS Dur : 82 ms QT Int : 352 ms P-R-T Axes : 73 53 89 degrees QTcB Int : 405 ms Poor data quality, interpretation may be adversely affected Sinus rhythm with short AL Possible Lateral infarct (cited on or before 20-May-2023) Inferior infarct (cited on or before 20-May-2023) Abnormal ECG When compared with ECG of 28-Jun-2024 22:42, No significant change Confirmed by Tanvir Horne ([id number]) on 06/30/2024 1:19:52 PM Referred By: REFERRED SELF Confirmed By: Tanvir Horne
[2024-06-30] MEDS: MAGNESIUM SULFATE / D5W 1 GM/100 ML BAG IV STA (13:29)
[2024-06-30] MEDS: SODIUM CHLORIDE 0.9% 500 ML IV ONE (13:29)
--- NOTE | 2024-06-30 15:23 | History & Physical Report ---
Date of Service June 30, 2024 Assessment & Plan (1) Acute on chronic pancreatitis: Plan 53-year-old male with past medical history significant for dyslipidemia, history of ST elevated NJ, CAD status post stent, heart failure with reduced ejection fraction EF 35 to 40%, nonsustained ventricular tachycardia, history of bradycardia, Casanova's esophagus, GERD, tobacco use disorder, general anxiety disorder, history of recurrent pancreatitis presenting with concerning abdo nancy pain. Pancreatitis, acute on chronic Possible post-ERCP pancreatitis Patient presenting with severe abdominal pain CT abdomen pelvis noting "Progression of acute pancreatitis since CT of June 28, 2024" Lipase elevated at 400, up from 40 two days ago Patient denies recent alcohol use, states he quit drinking alcohol about 10 years ago Patient follows with GI, appears to have had an ERCP on June 28 - ERCP noted open prior biliary sphincterotomy, open prior pancreatic sphincterotomy, biliary sludge that was removed with a balloon, moderate chronic pancreatitis for which 1 pancreatic stent was placed into the ventral pancreatic duct, -Indomethacin was given to decrease the risk of post ERCP pancreatitis and patient was discharged on ciprofloxacin 500 mg p.o. twice daily for 5 days. -It was recommended that patient repeat ERCP in 4 months to remove the stent GI noted that if the stricture is still present they will plan for stricture dilation at that time. N.p.o. status IV fluids, will run LR at 125 given patient's CHF status, consider increasing rate as able GI consult appreciate further recs Continue ciprofloxacin as prescribed post ERCP Continue to monitor Continue other home meds as ordered Diet: Currently n.p.o. DVT prophylaxis: heparin subcu Dispo: admit to [facility] History of Present Illness Chief Complaint: Abdominal Pain Primary Care Provider: Wade Bragg MD 53-year-old male with past medical history significant for dyslipidemia, history of ST elevated NJ, CAD status post stent, heart failure with reduced ejection fraction EF 35 to 40%, nonsustained ventricular tachycardia, history of bradycardia, Casanova's esophagus, GERD, tobacco use disorder, general anxiety disorder, history of recurrent pancreatitis presenting with concerning abdomin al pain. Patient with known history of pancreatitis. Has been hospitalized here multiple times for the same. He states he was a heavy alcohol drinker for about 10 years and quit about 11 years ago. States he does not currently drink alcohol. Was discharged with acute on chronic pancreatitis on June 25. Was seen in follow-up by GI and had an ERCP on June 28. He was treated with indomethacin for prevention of post ERCP pancreatitis and discharged with ciprofloxacin for 5 days after the procedure. Patient states that he has been having persistent abdominal pain since then with some nausea and vomiting. Has not been able to eat or drink. Denies fevers, chills or night sweats. Allergies Allergy/AdvReac Type Severity Reaction Status Date / Time isosorbide [From Imdur] AdvReac Severe severe Verified 06/30/24 15:00 migraine Home Medications Medication Instructions Recorded Confirmed Type aspirin 81 mg tablet,delayed 81 mg PO DAILY 06/25/24 06/30/24 History release ezetimibe 10 mg tablet 10 mg PO DAILY 06/25/24 06/30/24 History famotidine 40 mg tablet 40 mg PO HS 06/25/24 06/30/24 History losartan 25 mg tablet 12.5 mg PO DAILY 06/25/24 06/30/24 History magnesium oxide 400 mg (241.3 mg 400 mg PO DAILY 06/25/24 06/30/24 History magnesium) tablet metoprolol succinate 25 mg 25 mg PO BID 06/25/24 06/30/24 History tablet,extended release 24 hr pantoprazole 40 mg tablet,delayed 40 mg PO BID 06/25/24 06/30/24 History release rosuvastatin 40 mg tablet 40 mg PO DAILY 06/25/24 06/30/24 History sertraline 100 mg tablet 100 mg PO DAILY 06/25/24 06/30/24 History ticagrelor 90 mg tablet (Brilinta) 90 mg PO BID 06/25/24 06/30/24 History ciprofloxacin HCl 500 mg tablet 500 mg PO BID 06/30/24 06/30/24 History Past Med/Surg History Problem List (Updated 06/30/24 @ 19:44 by Angel Rodriguez MD) Hypomagnesemia (Acute) History of insertion of pancreatic stent (Acute) Elevated lipase (Acute) Acute pancreatitis (Acute) Epigastric abdominal pain (Acute) History of chronic pancreatitis (Acute) S/P ERCP (Acute) Chest pain (Acute) Abdominal pain (Acute) Acute on chronic pancreatitis (Acute) Abdominal pain (Acute) Epigastric abdominal pain Abdominal pain, acute (Acute) Acute pancreatitis (Acute) SVT (supraventricular tachycardia) Chest pain (Acute) Acute pancreatitis (Acute) GERD (gastroesophageal reflux disease) Chest pain (Acute) Ischemic cardiomyopathy Non-sustained ventricular tachycardia (Acute) Elevated troponin (Acute) Bradycardia (Acute) Chronic pancreatitis Sinus bradycardia Chest pain (Acute) Hematoma Tobacco abuse Recurrent pancreatitis (Acute) Non-ST elevation (NSTEMI) myocardial infarction (Acute) Acute on chronic pancreatitis Abdominal pain (Acute) Lesion of pancreas Elevated lipase Pancreatitis (Acute) Chest pain (Acute) Chest pain Acute pancreatitis (Acute) Abdominal pain, periumbilical (Acute) Anemia Hypomagnesemia Hypophosphatemia Hx laparoscopic cholecystectomy (08/22/21) Laparoscopic Cholecystectomy Dr. Davidson 08/22/2021 Grade II diastolic dysfunction Barretts esophagus Acute pancreatitis (Acute) Non-ST elevation NJ (NSTEMI) (Acute) Breath shortness (Acute) DVT prophylaxis Chest pain (Acute) HLD (hyperlipidemia) RADHA (generalized anxiety disorder) CAD (coronary artery disease) (Acute) 2018-RCA stent x 2 07/2020-STEMI, s/p PCI to left circumflex with 2 MELLY. Post procedure complicated by V. fib arrest requiring defibrillation. 12/2020-NSTEMI s/p 3 Xience MELLY to the distal aspect of prior stent of the left posterior lateral branch vessel Depression GERD (gastroesophageal reflux disease) (Acute) Medical History ST elevation myocardial infarction (STEMI) COVID-29 Oct 2021 Mobitz type 2 second degree atrioventricular block Tobacco abuse Splenic infarct Surgical History History of endoscopic retrograde cholangiopancreatography x2 (08/31, 09/30) History of vasectomy Family History Mother Gallbladder disease Sister Gallbladder disease Other Diabetes Stroke Denies family history of Pancreatic disease Social History Smoking Status: Current every day smoker Tobacco Type: Cigarettes Cigarettes Per Day: Half Pack; Second Hand Exposure: No; Do You Dip or Chew Tobacco: No; Hx Alcohol Use: No Hx Substance Use: No Preferred Language: Namibian Communication Ability: Effective Workers Compensation Claims Specialist Required: No Beliefs That Will Affect Care: None marital status: Single Current Living Situation: Alone current occupational status: employed Other Information That Helps Us Care for You: No Feels Safe at Home: Yes Safety Concerns: Feels Safe At This Time Assistive Devices: Glasses Review of Systems Review of Systems: All systems reviewed & are unremarkable except as noted in Subjective Physical Exam Physical Exam: General: Alert, oriented. No acute distress Neuro: No gross deficits HEENT: NC/AT CV: RRR Resp: Breath sounds clear bilaterally, no increased effort of breathing. Abdomen: Soft, diffusely tender Extremities: No edema in lower extremities bilaterally. Results & Data Results & Data Vital Signs (Past 12 Hours) Vital Signs Temp Pulse Pulse Resp BP BP Pulse Ox 06/30/24 15:00 64 22 95/61 L 95 06/30/24 13:00 74 18 95/63 L 96 06/30/24 12:31 78 06/30/24 12:11 98 H 23 97 06/30/24 11:36 77 28 H 152/95 H 98 06/30/24 11:31 36.4 C L 98 H 31 H 156/101 H 98 O2 Del Method 06/30/24 15:00 Room Air 06/30/24 13:00 Room Air 06/30/24 12:31 06/30/24 12:11 Room Air 06/30/24 11:36 Room Air 06/30/24 11:31 Room Air Diagnostic Findings Abdomen/Pelvis CT 06/30/24 12:47 CT OF THE ABDOMEN AND PELVIS WITH CONTRAST CLINICAL HISTORY: Possible stent malposition, abdominal pain, elevated lipase. COMPARISON STUDY: CT of the abdomen and pelvis June 28, 2024. TECHNIQUE: Following IV administration of 93 mL of Optiray, axial images of the abdomen and pelvis were obtained from the lung bases to the proximal femurs. Images were reviewed in the axial, sagittal, and coronal planes. IV contrast was administered without complication. Automated exposure control was utilized for the study. A dose lowering technique was utilized adhering to the principles of ALARA. CT DOSE: 408.28 mGy.cm FINDINGS: Visualized portions of the lung bases are unremarkable. No pneumatosis, free air or portal venous gas is present. Mild biliary ductal dilatation has developed since prior exam. The gallbladder surgically absent. Common bile duct measures 9 mm in caliber. The spleen, adrenal glands and left kidney are normal. There is a right renal cyst. Pancreatic glandular atrophy is again noted. Pancreatic stent is unchanged in position. There is no pancreatic ductal dilatation. Moderate peripancreatic fluid is noted. Fluid adjacent to the pancreatic head was shown on prior exam. Fluid adjacent to the remainder of the pancreas is new. There is no evidence for gland necrosis. No peripancreatic flu id collections are present. Major vasculature is patent. There is no evidence for a bowel obstruction. Trace fluid within the pelvis. Sigmoid diverticulosis. No evidence for acute diverticulitis. Normal appendix. No lymphadenopathy. Moderate aortoiliac atherosclerotic plaque. Bladder is moderately distended. No hydronephrosis. IMPRESSION: 1. Progression of acute pancreatitis since CT of June 28, 2024. Increase in moderate peripancreatic fluid and stranding. No peripancreatic fluid collections. No evidence for gland necrosis. No change in position of the pancreatic stent. No pancreatic ductal dilatation. 2. Mild biliary ductal dilatation which has developed since prior exam. This could be correlated with lower function tests. 3. No bowel obstruction. No bowel wall thickening. 4. Distended bladder. ACT 112: Negative or not required by law. Electronically signed by: Urban Eastman M.D. 06/30/2024 1:15 PM
[2024-06-30] MEDS: LACTATED RINGER'S 1,000 ML IV SCH (16:30)
--- OUTSIDE RECORDS SUMMARY | 2024-06-30 17:09 | External Medical Summary | Summary of Care ---
Author Name Unknown Organization [facility] Address [address] [facility] [place] [address] Phone [phone] Care Team Providers Care Black Leather Buffer Name Role Phone Wade Bragg MD Primary Care Provider [phone] Reason for Visit * Auth/Cert Specialty Diagnoses / Procedures Referred By Sid jaramillo Referred To Contact Diagnoses Other chronic pancreatitis (HCC) Other chronic pancreatitis (HCC) [K86.1] Procedures EGD, W/ENDOSCOPIC US ERCP, DIAGNOSTIC, SPECIMEN COLLECTION ESOPHAGOGASTRODUODENOSCOPY (EGD), FLEXIBLE, TRANSORAL, ENDOSCOPIC ULTRASOUND ENDOSCOPIC RETROGRADE CHOLANGIOPANCREATOGRAPHY (ERCP) DIAGNOSTIC Kike Gross DO [address] [place] [id number] [facility] [address] [place] [phone] Referral ID Status Reason Start Date Expiration Date Visits Re quested Visits Authorized [id number] Encounter Details Date Type Department Care Team (Latest Contact Info) Description 06/28/2024 8:58 AM EDT - 06/28/2024 12:21 PM EDT Hospital Encounter [facility], Endoscopy [facility] [address] [place] [id number] Kike Gross DO [address] [place] [id number] Various: UGI,UEUS,ERCP Discharge Disposition: Home - Self Care Allergies Active Allergy Reactions Criticality Noted Date Comments Isosorbide Nitrate 07/30/2023 Severe Mirgrains documented as of this encounter (statuses as of 06/29/2024) Medications Medication Sig Dispensed Refills Start Date [...] abdominal pain 60 Capsule 5 03/30/2023 Active Additional Information Patient not taking.Reported on 06/22/2024 Sucralfate 1 GM Oral Tablet (Carafate) Take 1 Tablet by mouth 4 times a day before meals and at bedtime. 07/12/2023 Active Ezetimibe 10 MG Oral Tablet (Zetia)Indications:C oronary artery disease involving [place] coronary artery of [place] heart without angina pectoris,Dyslipidemi a, goal LDL below 130,Old OR (myocardial infarction) take 1 tablet by mouth every morning 90 Tablet 3 08/30/2023 Active Additional Information Patient taking differently:10 mg OralHS, (No instructions reported), Reported on 06/22/2024 Pantoprazole Sodium 40 MG Oral Tablet Delayed Release (Protonix) take 1 tablet by mouth every morning 90 Tablet 3 08/30/2023 Active Additional Information Patient taking differently:40 mg OralBID (.AM/PM), (No instructions reported), Reported on 06/22/2024 Nitroglycerin 0.4 MG Sublingual Tablet Sublingual (Nitrostat)Indicatio ns:Coronary artery disease involving [place] coronary artery of [place] heart without angina pectoris place 1 tablet under the tongue if needed every 5 minutes for chest pain for 3 doses IF NO RELIEF AFTER THIRD DOSE CALL 911. 25 Tablet 11 08/30/2023 Active Additional Information Patient not taking.Reported on 06/22/2024 Magnesium Oxide (Antacid) 400 MG Oral Tablet take 1 tablet by mouth IN THE MORNING 90 Tablet 3 08/30/2023 Active Additional Information Patient not taking.Reported on 06/28/2024 Sertraline HCl 100 MG Oral Tablet (Zoloft) [...] Hour (toPROL XL)Indications:Coron clark artery disease involving [place] coronary artery of [place] heart without angina pectoris,Ischemic cardiomyopathy,Dysli pidemia, goal [...] on tongue. 30 Tablet 2 04/26/2024 Active Ciprofloxacin HCl 500 MG Oral Tablet (Cipro) Take 1 Tablet by mouth in the morning and 1 Tablet before bedtime. 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 06/27/2018 History of acute pancreatitis 06/27/2018 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 Dyslipidemia, goal LDL below 70 09/18/2013 Generalized anxiety disorder 03/09/2013 Tobacco use disorder 01/03/2013 documented as of this encounter (statuses as of 06/29/2024) Resolved Problems Problem Noted Date Diagnosed Date [...] as of this encounter (statuses as of 06/29/2024) Immunizations Name Administration Dates Next Due Hepatitis [...] Sign Reading Time Taken Comments Blood Pressure 124/87 06/28/2024 12:10 PM EDT Pulse 66 06/28/2024 12:10 PM EDT Temperature 36.3 C (97.4 F) 06/28/2024 9:02 AM ED T Respiratory Rate 14 06/28/2024 12:10 PM EDT Oxygen Saturation 96% 06/28/2024 12:10 PM EDT Inhaled Oxygen Concentration - - Weight 54.9 kg (121 lb) 06/28/2024 9:02 AM EDT Height 165.1 cm (5' 5") 06/28/2024 9:02 AM EDT Body Mass Index 20.14 06/28/2024 9:02 AM EDT documented in this encounter H&P Notes * Kike Gross DO - 06/28/2024 9:59 AM EDT Endoscopy Pre-Procedure Assessment Name: Oc Cazares Date: 06/28/2024 Time: 9:59 AM Procedure(s): Upper GI Endoscopy; with Indication(s) of upper abdominal symptoms that persist despite an appropriate trial of therapy ERCP; with Indication(s) of evaluation and treatment of chronic pancreatitis Endoscopic Ultrasound; with Indication(s) of evaluation and management of acute or chronic pancreatitis and evaluation of abnormalities on radiologic study Endoscopy Pre-Procedure Assessment: Prior to the procedure, the patient is identified. The patient's history, medications and allergieshave been reviewed. The patient is competent. The risks and benefits of the proposed procedure and the planned sedation have been discussed with the patient. All questions have been answered and informed consent for the procedure has been obtained. Prior to Admission medications Medication Sig Last Dose Discont. Ondansetron 4 MG Oral Tablet Disintegrating (Zofran) Place 1 Tablet on tongue every 8 hours as needed for Nausea. dissolve on tongue. Past Week Losartan Potassium 25 MG Oral Tablet (Cozaar) Take 0.5 Tablets by mouth daily. Past Week Aspirin 81 MG Oral Tablet Delayed Release (Aspirin Low Dose) Take 1 tablet by mouth every morning Past Week Famotidine 40 MG Oral Tablet (Pepcid) take 1 tablet by mouth BEFORE BEDTIME Past Week Metoprolol Succinate ER 25 MG Oral Tablet Extended Release 24 Hour (toPROL XL) Take 1 Tablet by mouth in the morning and 1 Tablet before bedtime. 06/28/2024 Rosuvastatin Calcium 40 MG Oral Tablet (Crestor) TAKE 1 TABLET BY MOUTH EVERY MORNING 06/28/2024 Sertraline HCl 100 MG Oral Tablet (Zoloft) Take 1 Tablet by mouth in the morning. 06/28/2024 Ezetimibe 10 MG Oral Tablet (Zetia) take 1 tablet by mouth every morning Patient taking differently: Take 1 Tablet by mouth at bedtime. Past Week Pantoprazole Sodium 40 MG Oral Tablet Delayed Release (Protonix) take 1 tablet by mouth every morning Patient taking differently: Take 1 Tablet by mouth in the morning and 1 Tablet before bedtime. 06/28/2024 Sucralfate 1 GM Oral Tablet (Carafate) Take 1 Tablet by mouth 4 times a day before meals and at bedtime. Past Week Brilinta 90 MG Oral Tablet Take 1 Tablet by mouth in the morning and 1 Tablet before bedtime. Past Week Magnesium Oxide (Antacid) 400 MG Oral Tablet take 1 tablet by mouth IN THE MORNING Patient not taking: Reported on 06/28/2024 Not Taking Nitroglycerin 0.4 MG Sublingual Tablet Sublingual (Nitrostat) place 1 tablet under the tongue if needed every 5 minutes for chest pain for 3 doses IF NO RELIEF AFTER THIRD DOSE CALL 911. Patient not taking: Reported on 06/22/2024 Over 30 Days Dicyclomine HCl 10 MG Oral Capsule (Bentyl) take 1 capsule by mouth twice a day if needed for abdominal pain Patient not taking: Reported on 06/22/2024 Not Taking Review of patient's allergies indicates: Allergen Reactions Imdur [Isosorbide Nitrate] Severe Mirgrains BP 138/83 | Pulse 68 | Temp 36.3 C (97.4 F) (Tympanic) | Ht 1.651 m (5' 5") | Wt 54.9 kg (121 lb) | SpO2 98% | BMI 20.14 kg/m | BSA 1.59 m Physical Exam: Mental Status Examination: alert and oriented. Airway Examination: normal oropharyngeal airway and neck mobility. Respiratory Examination: poor air movement. CV Examination: regular rate and rhythm and systolic murmur. ASA Grade: III - A patient with severe systemic disease. Abdomen: soft CT 06/24/24 Liver: Unremarkable. No mass. Gallbladder and bile ducts: The gallbladder has been removed. No ductal dilation. Pancreas: There is persistent heterogeneous enhancement of the mildly enlarged pancreatic head and mild peripancreatic inflammatory stranding consistent with history of pancreatitis. Pancreatic ductal dilatation identified. There are a few associated pancreatic parenchymal calcifications suggestive of a background chronic pancreatitis. Clinical correlation and follow-up recommended. This patient has undergone a preprocedural evaluation. A determination has been made to proceed with the planned procedure under [facility] procedural guidelines and the CMS Non-Emergent, Elective Medical Services and Treatment Recommendations (published on 01-16-20). The community and hospital prevalence of COVID-19 has been discussed as well as this patient's specific risks associated with SARS-CoV-19 infection. Based upon the clinical acuity and patient-specific care considerations, this procedure is deemed a Tier II - Intermediate acuity treatment or service with either progression or the threat of progressive disease related to the delay in treatment. Not providing the service has the potential for increasing morbidity or mortality. After reviewing the risks and benefits, the patient is deemed in satisfactory condition to undergo the procedure. The anesthesia plan is to use general anesthesia. We have discussed the risks and benefits of upper endoscopy to include bleeding, infection, perforation, discomfort, aspiration and need for follow-up studies. I have discussed the risks and benefits of EUS to include (not limited to) bleeding, infection, perforation, pain, aspiration, cardiac complications, pancreatitis and insufficient cellularity. We have discussed the risks and benefits of ERCP to include bleeding, infection, perforation, aspiration, pain, pancreatitis, and failed cannulation. We have discussed the possibility of choledocholithiasis in addition to symptoms as a result of chronic pancreatitis. I have also discussed the increased risks inherent with pancreatic Endo therapy to include pancreatitis, pain and need for follow-up studies. The patient also has very poor dentition, we did discuss the potential for tooth lost during the examination. Kike Gross DO 06/28/2024 documented in this encounter Procedure Notes * Wade Bragg MD - 06/28/2024 10:46 AM EDTAssociated Order(s): ERCP [facility] Patient Name: Oc Cazares Procedure Date: 06/28/2024 10:46 AM Date of : 1970 Admit Type: Outpatient Note Status: Finalized Date of : 1970 Admit Type: Outpatient Age: 53 Room: Advanced Endo Gender: Male Note Status: Finalized Procedure: ERCP Indications: Abdominal pain of suspected biliary or pancreatic origin, Abnormal endoscopic ultrasound of the biliary system, Chronic pancreatitis Providers: Kike Gross DO (Doctor) Referring MD: Wade Bragg MD (Referring MD) Medicines: General Anesthesia Complications: No immediate complications. Estimated blood loss: Minimal. Procedure: Pre-Anesthesia Assessment: - Prior to the procedure, a History and Physical was performed, and patient medications, allergies and sensitivities were reviewed. The patient's tolerance of previous anesthesia was reviewed. - The risks and benefits of the procedure and the sedation options and risks were discussed with the patient. All questions were answered and informed consent was obtained. - Patient identification and proposed procedure were verified prior to the procedure by the physician, the nurse and the reservoir engineering advisor. The procedure was verified in the procedure room. - Pre-procedure physical examination revealed no contraindications to sedation. - ASA Grade Assessment: III - A patient with severe systemic disease. - After reviewing the risks and benefits, the patient was deemed in satisfactory condition to undergo the procedure. - The anesthesia plan was to use general anesthesia. - Immediately prior to administration of medications, the patient was re- assessed for adequacy to receive sedatives. - The heart rate, respiratory rate, oxygen saturations, blood pressure, adequacy of pulmonary ventilation, and response to care were monitored throughout the procedure. - The physical status of the patient was re-assessed after the procedure. After obtaining informed consent, the scope was passed under direct vision. All instruments were visually inspected immediately before and after removal from the patient to ensure they are fully intact. Throughout the procedure, the patient's blood pressure, pulse, and oxygen saturations were monitored continuously. The was introduced through the mouth, and advanced to the duodenum and used to inject contrast into the bile duct and ventral pancreatic duct. The ERCP was accomplished without difficulty. The patient tolerated the procedure well. Findings & Specimens: A turning sander tender film of the abdomen was obtained. Surgical clips, consistent with a previous cholecystectomy, were seen in the area of the right upper quadrant of the abdomen. The esophagus was successfully intubated under direct vision without detailed examination of the pharynx, larynx, and associated structures, and upper GI tract. The upper GI tract was grossly normal. The major papilla was located entirely within a diverticulum. Inspection of the major papilla revealed that biliary and pancreatic sphincterotomies had been performed previously. The biliary sphincterotomy appeared open. The pancreatic sphincterotomy appeared open. The bile duct was deeply cannulated with the short-nosed traction sphincterotome and guidewire. Contrast was injected. I personally interpreted the bile duct images. Contrast extended to the hepatic ducts. The main bile duct was moderately dilated. The largest diameter was 8 mm. The lower third of the main bile duct and middle third of the main bile duct contained filling defect(s) thought to be sludge. To discover objects, the biliary tree was swept with a 12 mm balloon starting at the bifurcation. Sludge was swept from the duct. We then turned our attention to treatment of the patient's chronic pancreatitis. The ventral pancreatic duct was deeply cannulated with the short-nosed traction sphincterotome and 0.025 in guidewire. Contrast was injected. Diffuse changes, including dilation of side branches, irregularity of side branches and ductal stenosis, were seen in the entire opacified area, ventral pancreatic duct in the head of the pancreas, pancreatic duct in the genu of the pancreas and pancreatic duct in the body of the pancreas, consistent with moderate chronic pancreatitis. A stenosis was noted within the genu of the pancreas correlating with the patient's endoscopic ultrasound images. There was upstream dilation of the pancreatic duct beyond this. Therefore, one 5 Fr by 9 cm pancreatic stent with a full external pigtail and a single internal flap was placed 9 cm into the ventral pancreatic duct. Clear fluid flowed through the stent. The stent was in good position. The endoscope was withdrawn from the patient. Indomethacin 100 mg was given via suppository to decrease the risk of post-ERCP pancreatitis (PEP). Impression: - The major papilla was located entirely within a diverticulum. - Prior biliary sphincterotomy appeared open. - Prior pancreatic sphincterotomy appeared open. - Biliary sludge extracted with a balloon. . - Moderate chronic pancreatitis. - One pancreatic stent was placed into the ventral pancreatic duct for treatment of chronic pancreatitis. - Indomethacin given to decrease risk of post-ERCP pancreatitis. Recommendation: - The patient will be observed post-procedure, until all discharge criteria are met. - Clear liquid diet today. - Cipro (ciprofloxacin) 500 mg PO BID for 5 days. - Repeat ERCP in 4 months to remove stent. If the stricture is still present we will plan for stricture dilation at that time. Kike Gross DO 06/28/2024 11:41:37 AM This report has been signed electronically. * Wade Bragg MD - 06/28/2024 10:22 AM EDTAssociated Order(s): UPPER GI ENDOSCOPY [facility] Patient Name: Oc Cazares Procedure Date: 06/28/2024 10:22 AM Date of : 1970 Admit Type: Outpatient Note Status: Finalized Date of : 1970 Admit Type: Outpatient Age: 53 Room: [facility] Gender: Male Note Status: Finalized Procedure: Upper GI endoscopy Indications: Epigastric abdominal pain, Abdominal pain in the right upper quadrant Providers: Kike Gross DO (Doctor) Referring MD: Wade Bragg MD (Referring MD) Medicines: General Anesthesia Complications: No immediate complications. Estimated blood loss: Minimal. Procedure: Pre-Anesthesia Assessment: - Prior to the procedure, a History and Physical was performed, and patient medications, allergies and sensitivities were reviewed. The patient's tolerance of previous anesthesia was reviewed. - The risks and benefits of the procedure and the sedation options and risks were discussed with the patient. All questions were answered and informed consent was obtained. - Patient identification and proposed procedure were verified prior to the procedure by the physician, the nurse and the reservoir engineering advisor. The procedure was verified in the procedure room. - Pre-procedure physical examination revealed no contraindications to sedation. - ASA Grade Assessment: III - A patient with severe systemic disease. - After reviewing the risks and benefits, the patient was deemed in satisfactory condition to undergo the procedure. - The anesthesia plan was to use general anesthesia. - Immediately prior to administration of medications, the patient was re- assessed for adequacy to receive sedatives. - The heart rate, respiratory rate, oxygen saturations, blood pressure, adequacy of pulmonary ventilation, and response to care were monitored throughout the procedure. - The physical status of the patient was re-assessed after the procedure. After obtaining informed consent, the endoscope was passed under direct vision. All instruments were visually inspected immediately before and after removal from the patient to ensure they are fully intact. Throughout the procedure, the patient's blood pressure, pulse, and oxygen saturations were monitored continuously. The upper GI endoscopy was accomplished without difficulty. The patient tolerated the procedure well. The [id number]-H180 Endoscope ([id number]) was introduced through the mouth, and advanced to the third part of duodenum. Findings & Specimens: The upper third of the esophagus and middle third of the esophagus were normal. The esophagus and gastroesophageal junction were examined with white light. There were esophageal mucosal changes classified as Casanova's stage C3-M4 per [place] criteria. These changes involved the mucosa at the upper extent of the gastric folds (34 cm from the incisors) extending to the Z-line (30 cm from the incisors). The maximum longitudinal extent of these esophageal mucosal changes was 4 cmin length. Mucosa was biopsied with a cold forceps for histology. A total of 3 specimen bottles were sent to pathology. The pathology specimen was placed into Bottle Number 1. Estimated blood loss was minimal. A medium-sized hiatal hernia was found. The proximal extent of the gastric folds (end of tubular esophagus) was 34 cm from the incisors. The hiatal narrowing was 39 cm from the incisors. The gastric fundus, gastric body, incisura and gastric antrum were normal. The examined duodenum was normal. Impression: - Normal upper third of esophagus and middle third of esophagus. - Esophageal mucosal changes classified as Casanova's stage C3-M4 per [place] criteria. Biopsied. - Medium-sized hiatal hernia. - Normal gastric fundus, gastric body, incisura and antrum. - Normal examined duodenum. Recommendation: - Perform an upper endoscopic ultrasound (UEUS) today. - Await pathology results. Kike Gross DO 06/28/2024 10:35:01 AM This report has been signed electronically. * Wade Bragg MD - 06/28/2024 10:20 AM EDTAssociated Order(s): UPPER ENDOSCOPIC U/S [facility] Patient Name: Oc Cazares Procedure Date: 06/28/2024 10:20 AM Date of : 1970 Admit Type: Outpatient Note Status: Finalized Date of : 1970 Admit Type: Outpatient Age: 53 Room: [facility] Gender: Male Note Status: Finalized Procedure: Upper EUS Indications: Suspected chronic pancreatitis, Epigastric abdominal pain, Abdominal pain in the right upper quadrant Providers: Kike Gross DO (Doctor) Referring MD: Wade Bragg MD (Referring MD) Medicines: General Anesthesia Complications: No immediate complications. Estimated blood loss: Minimal. Procedure: Pre-Anesthesia Assessment: - Prior to the procedure, a History and Physical was performed, and patient medications, allergies and sensitivities were reviewed. The patient's tolerance of previous anesthesia was reviewed. - The risks and benefits of the procedure and the sedation options and risks were discussed with the patient. All questions were answered and informed consent was obtained. - Patient identification and proposed procedure were verified prior to the procedure by the physician, the nurse and the reservoir engineering advisor. The procedure was verified in the procedure room. - Pre-procedure physical examination revealed no contraindications to sedation. - ASA Grade Assessment: III - A patient with severe systemic disease. - After reviewing the risks and benefits, the patient was deemed in satisfactory condition to undergo the procedure. - The anesthesia plan was to use general anesthesia. - Immediately prior to administration of medications, the patient was re- assessed for adequacy to receive sedatives. - The heart rate, respiratory rate, oxygen saturations, blood pressure, adequacy of pulmonary ventilation, and response to care were monitored throughout the procedure. - The physical status of the patient was re-assessed after the procedure. After obtaining informed consent, the endoscope was passed under direct vision. All instruments were visually inspected immediately before and after removal from the patient to ensure they are fully intact. Throughout the procedure, the patient's blood pressure, pulse, and oxygen saturations were monitored continuously.The upper EUS was accomplished without difficulty. The patient tolerated the procedure well. The [id number] Endoscope ([id number]) was introduced through the mouth, and advanced to the third part of duodenum. Findings & Specimens: ENDOSONOGRAPHIC FINDING: : Evidence of a previous cholecystectomy was identified endosonographically. There was dilation in the main bile duct which measured up to 8 mm. Moderate hyperechoic material consistent with sludge was visualized endosonographically in the common bile duct. There was no sign of significant endosonographic abnormality in the visualized portion of the liver. Homogeneous parenchyma and no focal pathology were identified. No lymphadenopathy seen. There was no sign of significant endosonographic abnormality in the left adrenal gland. No adrenal gland enlargement was identified. Endosonographic imaging of the pancreas showed sonographic changes indicative of moderate chronic pancreatitis in the entire pancreas. The parenchyma had atrophy, dense calcification calcifications, hyperechoic foci, hyperechoic foci with shadowing and lobularity with honeycombing. The pancreatic duct was narrowed within the genu, with modest dilation upstream to 4 mm into the pancreatic body. Impression: - Evidence of a cholecystectomy. - There was dilation in the entire main bile duct which measured up to 8 mm. - Hyperechoic material consistent with sludge was visualized endosonographically in the common bile duct. - There was no evidence of significant pathology in the visualized portion of the liver. - Endosonographic images of the left adrenal gland were unremarkable. - Endosonographic imaging of the pancreas showed sonographic changes consistent with moderate chronic pancreatitis. - No specimens collected. Recommendation: - Perform an ERCP today. Kike Gross DO 06/28/2024 11:34:27 AM This report has been signed electronically. documented in this encounter Nursing Notes * Carlton Howell RN - 06/28/2024 12:11 PM EDT Patient is alert, pain free, passing flatus and tolerating po fluids prior to discharge. Patient has been visited by Dr. Kike Gross. Patient has received and demonstrates understanding of discharge instructions. Patient is transported via w/c to private auto accompanied by endo staff. * Carlton Howell RN - 06/28/2024 11:45 AM EDT Patient fully awake, denies any pain. Offered clear liquid. Sister at the bedside * Carlton Howell RN - 06/28/2024 11:20 AM EDT Patient transferred to post endo s/p EGD ERCP. Patient asleep, sedated Respirations are even and unlabored on room air. NSR in the 78 on the monitor. Abdomen soft and non distended. Vital signs stable. * Oz Chung RN - 06/28/2024 11:14 AM EDT See anesthesia record for medication administered during procedure. Oz Chung RN Specimen(s) and location(s) verified with physician post procedure 11:14 AM Oz Chung RN Pre cleaning of scope at the bedside started by simulation technician. ERCP performed by Dr Gross. Ampulla cannulated without difficulty and cholangiogram performed bileduct swept multiple times with a 12 mm balloon. Pt tolerated well. A 5 fr 9 cm pancreatic stent placed without difficulty. Pt tolerated well. Pt placed on stretcher and transported to recovery by symone baig. * Felecia Khan RN - 06/28/2024 9:19 AM EDT The following pt discharge instructions reviewed with pt prior to prodedure: No driving today. No alcohol today. No signing of legal documents. Rest as much as possible today and can return to normal activities tomorrow. No operating any heavy equipment today. Diet as tolerated. Pt verbalized understanding. documented in this encounter Plan of Treatment Upcoming Encounters Date Type Department Care Team (Latest Contact Info) Description 09/14/2024 1:30 PM EST Office Visit Gastroenterology , [facility] [address] [place] [address] Taylor Boyer CRNP [address] [place] [id number] 11/16/2024 1:30 PM EST Office Visit Cardiology, [facility] [address] [place] [address] Herb Tamez, [address] [place] [phone] 11/22/2024 8:00 AM EST Hospital Encounter [facility] [address] [id number] Kike Gross DO [address] [place] [address] 11/22/2024 8:00 AM EST - 11/22/2024 8:45 AM EST Surgery [facility]O [facility], Endoscopy [address] [place] [id number] Kike Gross, DO [address] [place] [id number] ESOPHAGOGASTRODUODENOSCOPY (EGD), FLEXIBLE, TRANSORAL, ENDOSCOPIC ULTRASOUND Pending Results Name Type Priority Associated Diagnoses Date /Time SURGICAL PATHOLOGY Pathology Routine Other chronic pancreatitis (HCC) 06/28/2024 11:18 AM EDT Scheduled Orders Name Type Priority Associated Diagnoses Orde r Schedule SURGICAL PATHOLOGY Pathology Routine Other chronic pancreatitis (HCC) Release Upon Ordering for 1 Occurrences starting 06/28/2024, 1 completed Scheduled Procedures Name Priority Associated Diagnoses Date/Ti me ESOPHAGOGASTRODUODENOSCOPY ( EGD), FLEXIBLE, TRANSORAL, ENDOSCOPIC ULTRASOUND Other chronic pancreatitis (HCC) 11/22/2024 8:00 AM EST ENDOSCOPIC RETROGRADE CHOLANGIOPANCREATOGRAPHY (ERCP) DIAGNOSTIC Other chronic pancreatitis (HCC) 11/22/2024 8:00 AM EST ESOPHAGOGASTRODUODENOSCOPY ( EGD), FLEXIBLE, TRANSORAL, DIAGNOSTIC Recall 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 COLONOSCOPY FLEXIBLE PROXIMA L DIAGNOSTIC Recall History of colonic polyps Health Maintenance Due Date Last Done Comments DISCUSS TOBACCO CESSATION (REFER TO SMARTSET #[id number]) 1970 Pneumococcal Vaccine: Pediatrics (0 to 5 [...] 2024 Influenza Vaccine (FLU shot) (#1) 2024 Colonoscopy 05/06/2025 05/06/2020, 05/06/2020 Colorectal Cancer Screening 05/06/2025 Casanova's Esophagus Surveilance 06/28/2027 06/28/2024, 09/23/2021, 08/22/2021, Additional history exists Hepatitis B Vaccine Completed 08/24/2011, 04/09/2011, 03/05/2011 RETIRED - COLONOSCOPY-EVERY 5 YRS AGES 18-100 Discontinued 05/06/2020, 05/06/2020 HPV (Gardasil) Vaccine Aged Out No lo nger eligible based on patient's age to complete this topic MENINGOCOCCAL (MENACTRA/MENVEO) Aged Out No longer eligible based on patient's age to complete this topic documented as of this encounter Medical Devices Implanted Type Area Social Worker Clinical Device Identifier Shelf Expiration Date Model / Serial / Lot Stent Panc Sgl Pigtail [id number] - [id number] Implanted:Qty: 1 on 06/28/2024 by Kike Gross DO at ENDOSCOPY [facility] N/A: Stomach COOK : HARRISON THORNTON 04/12/2026 [id number] / / [id number] documented as of this encounter Procedures Procedure Name Priority Date/Time Associated Diagnosis Comments FLUORO ERCP Routine 06/28/2024 11:17 AM EDT ERCP 06/28/2024 10:46 AM EDT UPPER GI ENDOSCOPY 06/28/2024 10 :22 AM EDT UPPER ENDOSCOPIC U/S 06/28/2024 10:20 AM EDT documented in this encounter Results * FLUORO ERCP (06/28/2024 11:17 AM EDT) Narrative Scheduling, Silent - 06/28/2024 11:17 AM EDT This procedure will not be read by a Radiologist. Please see operative note. Kike Gross DO RAD FLUOROSCOPY * ERCP (06/28/2024 10:46 AM EDT) 06/28/2024 10:4 6 AM EDT Narrative Procedure Note Wade Bragg MD - 06/28/2024 10:46 AM EDT [facility] Patient Name: Oc Cazares Procedure Date: 06/28/2024 10:46 AM Date of : 1970 Admit Type: Outpatient Note Status:Finalized Date of : 1970 Admit Type: Outpatient Age: 53 Room: Advanced Endo Gender: Male Note Status: Finalized Procedure: ERCP Indications: Abdominal pain of suspected biliary or pancreaticorigin, Abnormal endoscopic ultrasound of the biliary system, Chronicpancreatitis Providers: Kike Gross DO (Doctor) Referring MD: Wade Bragg MD (Referring MD) Medicines: General Anesthesia Complications: No immediate complications. Estimated blood loss:Minimal. Procedure: Pre-Anesthesia Assessment: - Prior to the procedure, a History and Physicalwas performed, and patient medications, allergies and sensitivities werereviewed. The patient's tolerance of previous anesthesia was reviewed. - The risks and benefits of the procedure and thesedation options and risks were discussed with the patient. All questions wereanswered and informed consent was obtained. - Patient identification and proposed procedurewere verified prior to the procedure by the physician, the nurse and the reservoir engineering advisor.The procedure was verified in the procedure room. - Pre-procedure physical examination revealed nocontraindications to sedation. - ASA Grade Assessment: III - A patient with severesystemic disease. - After reviewing the risks and benefits, thepatient was deemed in satisfactory condition to undergo the procedure. - The anesthesia plan was to use generalanesthesia. - Immediately prior to administration ofmedications, the patient was re-assessed for adequacy to receive sedatives. - The heart rate, respiratory rate, oxygensaturations, blood pressure, adequacy of pulmonary ventilation, and response to care weremonitored throughout the procedure. - The physical status of the patient wasre-assessed after the procedure. After obtaining informed consent, the scope waspassed under direct vision. All instruments were visually inspected immediatelybefore and after removal from the patient to ensure they are fully intact. Throughout the procedure, the patient's bloodpressure, pulse, and oxygen saturations were monitored continuously. The was introducedthrough the mouth, and advanced to the duodenum and used to inject contrast into thebile duct and ventral pancreatic duct. The ERCP was accomplished without difficulty.The patient tolerated the procedure well. Findings & Specimens: A turning sander tender film of the abdomen was obtained. Surgical clips, consistentwith a previous cholecystectomy, were seen in the area of the right upper quadrant of the abdomen. Theesophagus was successfully intubated under direct vision without detailed examination of thepharynx, larynx, and associated structures, and upper GI tract. The upper GI tract was grosslynormal. The major papilla was located entirely within a diverticulum. Inspection of the major papillarevealed that biliary and pancreatic sphincterotomies had been performed previously. The biliarysphincterotomy appeared open. The pancreatic sphincterotomy appeared open. The bile duct was deeplycannulated with the short-nosed traction sphincterotome and guidewire. Contrast was injected. Ipersonally interpreted the bile duct images. Contrast extended to the hepatic ducts. The main bile ductwas moderately dilated. The largest diameter was 8 mm. The lower third of the main bile duct and middlethird of the main bile duct contained filling defect(s) thought to be sludge. To discoverobjects, the biliary tree was swept with a 12 mm balloon starting at the bifurcation. Sludge was swept fromthe duct. We then turned our attention to treatment of the patient's chronic pancreatitis. Theventral pancreatic duct was deeply cannulated with the short-nosed traction sphincterotome and 0.025 inguidewire. Contrast was injected. Diffuse changes, including dilation of side branches, irregularity ofside branches and ductal stenosis, were seen in the entire opacified area, ventral pancreaticduct in the head of the pancreas, pancreatic duct in the genu of the pancreas and pancreatic duct inthe body of the pancreas, consistent with moderate chronic pancreatitis. A stenosis was noted within thegenu of the pancreas correlating with the patient's endoscopic ultrasound images. There was upstreamdilation of the pancreatic duct beyond this. Therefore, one 5 Fr by 9 cm pancreatic stent with a fullexternal pigtail and a single internal flap was placed 9 cm into the ventral pancreatic duct. Clearfluid flowed through the stent. The stent was in good position. The endoscope was withdrawn from thepatient. Indomethacin 100 mg was given via suppository to decrease the risk of post-ERCP pancreatitis(PEP). Impression: - The major papilla was located entirely within adiverticulum. - Prior biliary sphincterotomy appeared open. - Prior pancreatic sphincterotomy appeared open. - Biliary sludge extracted with a balloon. . - Moderate chronic pancreatitis. - One pancreatic stent was placed into the ventralpancreatic duct for treatment of chronic pancreatitis. - Indomethacin given to decrease risk of post-ERCPpancreatitis. Recommendation: - The patient will be observed post-procedure,until all discharge criteria are met. - Clear liquid diet today. - Cipro (ciprofloxacin) 500 mg PO BID for 5 days. - Repeat ERCP in 4 months to remove stent. If thestricture is still present we will plan for stricture dilation at that time. Kike Gross DO 06/28/2024 11:41:37 AM This report has been signed electronically. Wade Bragg MD GASTRO UPPER * UPPER GI ENDOSCOPY (06/28/2024 10:22 AM EDT) 06/28/2024 10:2 2 AM EDT Narrative Procedure Note Wade Bragg MD - 06/28/2024 10:22 AM EDT [facility] Patient Name: Oc Cazares Procedure Date: 06/28/2024 10:22 AM Date of : 1970 Admit Type: Outpatient Note Status:Finalized Date of : 1970 Admit Type: Outpatient Age: 53 Room: Advanced [facility] Gender: Male Note Status: Finalized Procedure: Upper GI endoscopy Indications: Epigastric abdominal pain, Abdominal pain in theright upper quadrant Providers: Kike Gross DO (Doctor) Referring MD: Wade Bragg MD (Referring MD) Medicines: General Anesthesia Complications: No immediate complications. Estimated blood loss:Minimal. Procedure: Pre-Anesthesia Assessment: - Prior to the procedure, a History and Physicalwas performed, and patient medications, allergies and sensitivities werereviewed. The patient's tolerance of previous anesthesia was reviewed. - The risks and benefits of the procedure and thesedation options and risks were discussed with the patient. All questions wereanswered and informed consent was obtained. - Patient identification and proposed procedurewere verified prior to the procedure by the physician, the nurse and the reservoir engineering advisor.The procedure was verified in the procedure room. - Pre-procedure physical examination revealed nocontraindications to sedation. - ASA Grade Assessment: III - A patient with severesystemic disease. - After reviewing the risks and benefits, thepatient was deemed in satisfactory condition to undergo the procedure. - The anesthesia plan was to use generalanesthesia. - Immediately prior to administration ofmedications, the patient was re-assessed for adequacy to receive sedatives. - The heart rate, respiratory rate, oxygensaturations, blood pressure, adequacy of pulmonary ventilation, and response to care weremonitored throughout the procedure. - The physical status of the patient wasre-assessed after the procedure. After obtaining informed consent, the endoscope waspassed under direct vision. All instruments were visually inspected immediatelybefore and after removal from the patient to ensure they are fully intact. Throughout the procedure, the patient's bloodpressure, pulse, and oxygen saturations were monitored continuously. The upper GI endoscopywas accomplished without difficulty. The patient tolerated the procedurewell. The [id number]-[id number] Endoscope ([id number]) was introduced through the mouth, andadvanced to the third part of duodenum. Findings & Specimens: The upper third of the esophagus and middle third of the esophaguswere normal. The esophagus and gastroesophageal junction were examined with whitelight. 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 These changes involved the mucosa at the upper extent of the gastric folds (34 cm from theincisors) extending to the Z-line (30 cm from the incisors). The maximum longitudinal extent of theseesophageal mucosal changes was 4 cm in length. Mucosa was biopsied with a cold forceps for histology. Atotal of 3 specimen bottles were sent to pathology. The pathology specimen was placed into Bottle Number 1.Estimated blood loss was minimal. A medium-sized hiatal hernia was found. The proximal extent of thegastric folds (end of tubular esophagus) was 34 cm from the incisors. The hiatal narrowing was 39cm from the incisors. The gastric fundus, gastric body, incisura and gastric antrum werenormal. The examined duodenum was normal. Impression: - Normal upper third of esophagus and middle thirdof esophagus. - Esophageal mucosal changes classified asBarrett's stage C3-M4 per [place] criteria. Biopsied. - Medium-sized hiatal hernia. - Normal gastric fundus, gastric body, incisura andantrum. - Normal examined duodenum. Recommendation: - Perform an upper endoscopic ultrasound (UEUS)today. - Await pathology results. Kike Gross DO 06/28/2024 10:35:01 AM This report has been signed electronically. Wade Bragg MD GASTRO UPPER * UPPER ENDOSCOPIC U/S (06/28/2024 10:20 AM EDT) 06/28/2024 10:2 0 AM EDT Narrative Procedure Note Wade Bragg MD - 06/28/2024 10:20 AM EDT [facility] Patient Name: Oc Cazares Procedure Date: 06/28/2024 10:20 AM Date of : 1970 Admit Type: Outpatient Note Status:Finalized Date of : 1970 Admit Type: Outpatient Age: 53 Room: Advanced Endo Gender: Male Note Status: Finalized Procedure: Upper EUS Indications: Suspected chronic pancreatitis, Epigastricabdominal pain, Abdominal pain in the right upper quadrant Providers: Kike Gross DO (Doctor) Referring MD: Wade Bragg MD (Referring MD) Medicines: General Anesthesia Complications: No immediate complications. Estimated blood loss:Minimal. Procedure: Pre-Anesthesia Assessment: - Prior to the procedure, a History and Physicalwas performed, and patient medications, allergies and sensitivities werereviewed. The patient's tolerance of previous anesthesia was reviewed. - The risks and benefits of the procedure and thesedation options and risks were discussed with the patient. All questions wereanswered and informed consent was obtained. - Patient identification and proposed procedurewere verified prior to the procedure by the physician, the nurse and the reservoir engineering advisor.The procedure was verified in the procedure room. - Pre-procedure physical examination revealed nocontraindications to sedation. - ASA Grade Assessment: III - A patient with severesystemic disease. - After reviewing the risks and benefits, thepatient was deemed in satisfactory condition to undergo the procedure. - The anesthesia plan was to use generalanesthesia. - Immediately prior to administration ofmedications, the patient was re-assessed for adequacy to receive sedatives. - The heart rate, respiratory rate, oxygensaturations, blood pressure, adequacy of pulmonary ventilation, and response to care weremonitored throughout the procedure. - The physical status of the patient wasre-assessed after the procedure. After obtaining informed consent, the endoscope waspassed under direct vision. All instruments were visually inspected immediatelybefore and after removal from the patient to ensure they are fully intact. Throughout the procedure, the patient's bloodpressure, pulse, and oxygen saturations were monitored continuously.The upper EUS wasaccomplished without difficulty. The patient tolerated the procedure well. The [id number] ([id number]) was introduced through the mouth, and advanced to the third partof duodenum. Findings & Specimens: ENDOSONOGRAPHIC FINDING: : Evidence of a previous cholecystectomy was identifiedendosonographically. There was dilation in the main bile duct which measured up to 8 mm. Moderate hyperechoic material consistent with sludge was visualizedendosonographically in the common bile duct. There was no sign of significant endosonographic abnormality in thevisualized portion of the liver. Homogeneous parenchyma and no focal pathology were identified. No lymphadenopathy seen. There was no sign of significant endosonographic abnormality in theleft adrenal gland. No adrenal gland enlargement was identified. Endosonographic imaging of the pancreas showed sonographic changesindicative of moderate chronic pancreatitis in the entire pancreas. The parenchyma had atrophy,dense calcification calcifications, hyperechoic foci, hyperechoic foci with shadowing and lobularity withhoneycombing. The pancreatic duct was narrowed within the genu, with modest dilation upstream to 4 mminto the pancreatic body. Impression: - Evidence of a cholecystectomy. - There was dilation in the entire main bile ductwhich measured up to 8 mm. - Hyperechoic material consistent with sludge wasvisualized endosonographically in the common bile duct. - There was no evidence of significant pathology inthe visualized portion of the liver. - Endosonographic images of the left adrenal glandwere unremarkable. - Endosonographic imaging of the pancreas showedsonographic changes consistent with moderate chronic pancreatitis. - No specimens collected. Recommendation: - Perform an ERCP today. Kike Gross DO 06/28/2024 11:34:27 AM This report has been signed electronically. Wade R Oesterling MD GASTRO UPPER documented in this encounter Visit Diagnoses Diagnosis Other chronic pancreatitis (HCC)- Primary Other chronic pancreatitis (HCC) documented in this encounter Administered Medications Inactive Administered Medications - up to 3 most recent administrations Medication Order MAR Action Action Date Dose Rate Site isolyte-S pH 7.4 infusion Intravenous, at 100 mL/hr, Plasma-LYTE 148, isolyte-S, and isolyte-S pH 7.4 are considered equivalent - including for MAR barcode scanning., CONTINUOUS, Starting on Wed06/28/24 at 0945, Until Wed06/28/24 at 1622, Pre-Op Continue from Pre-Op 06/28/2024 10:05 AM EDT 100 mL/hr New Bag 06/28/2024 9:19 AM EDT 100 mL/hr documented in this encounter Active and Recently Administered Medications Times are shown in EDT. Scheduled Medication Order 06/26/2024 06/27/2024 06/28/2024 Indomethacin (Indocin) 100 mg supp 100 mg, Rectal, ONCE, On Wed06/28/24 at 1045, For 1 dose 1045 (Due) Continuous Medication Order 06/26/2024 06/27/2024 06/28/2024 isolyte-S pH 7.4 infusion Intravenous, at 100 mL/hr, Plasma-LYTE 148, isolyte-S, and isolyte-S pH 7.4 are considered equivalent - including for MAR barcode scanning., CONTINUOUS, Starting on Wed06/28/24 at 0945, Until Wed06/28/24 at 1622, Pre-Op 0919 (New Bag - Prov ider: Felecia Khan RN)1005 (Continue from Pre-Op - Provider: May Finney CRNA)1121 (Anes Intra-Op Fluid - Provider: May Finney CRNA) documented in this encounter Advance Directives * Full Code (Latest Code Status on File) Date Activated Date Inactivated Comments 08/14/2022 1:00 AM 08/17/2022 2:38 PM This order r eflects the patients wishes and were consensually agreed upon. Question Answer Comments Discussion of Advance Directives occurred with: Patient Care Teams Black Leather Buffer Relationship Specialty Start Date End Date Wade Bragg MD [address] [place] [id number] PCP - General Family Medicine 03/24/18 documented as of this encounter
[2024-06-30] MEDS ORDERED: ACETAMINOPHEN 1,000 MG/100 ML VIAL IV PRN (19:58)
[2024-06-30] MEDS: HEPARIN SOD 5,000 UNIT/0.5 ML VIAL SQ SCH (20:07)
[2024-06-30 20:12] LABS: Appearance Urine Clear (Clear); Bilirubin Urine Negative (Negative); Blood Urine Negative (Negative); Color Urine Yellow; Glucose Urine UA Negative (Negative); Ketones Urine Negative (Negative); Leukocyte Esterase Urine Negative (Negative); Nitrite Urine Negative (Negative); Protein Urine Negative (Negative); Specific Gravity Urine > 1.045 (1.000-1.030); Urobilinogen Urine Negative (Negative)
[2024-06-30] MEDS: TICAGRELOR 90 MG TAB PO SCH (22:21)
[2024-06-30] MEDS: METOPROLOL SUCC 25MG EXT REL TAB PO SCH (22:21)
[2024-06-30] MEDS: CIPROFLOXACIN 500 MG TAB PO SCH (23:09)
[2024-07-01] MEDS: HYDROmorphone INJ 0.5 MG/0.5 ML SYR IV PRN (00:43)
[2024-07-01 06:52] LABS: Basophils # (auto) 0.06 K/uL (0.00-0.20); Basophils % (auto) 0.9 %; Eosinophils # (auto) 0.22 K/uL (0.00-0.50); Eosinophils % (auto) 3.5 %; Hematocrit (blood only) 33.4 % (42.0-52.0); Hemoglobin 11.5 g/dl (14.0-18.0); Immature Granulocytes # (auto) 0.02 K/uL (0.01-0.20); Immature Granulocytes % (auto) 0.3 %; Lymphocytes # (auto) 1.21 K/uL (1.20-3.40); Mean Corpuscular Hemoglobin 33.5 pg (25.0-34.0); Mean Corpuscular Hgb Conc 34.4 g/dL (32.0-36.0); Mean Corpuscular Volume 97.4 fL (80.0-100.0); Mean Platelet Volume 9.3 fL (9.4-12.4); Monocytes # (auto) 0.35 K/uL (0.11-0.59); Monocytes % (auto) 5.5 %; Neutrophils % (auto) 70.8 %; Platelet Count 195 K/uL (130-400); RDW Coefficient of Variation 13.2 % (11.5-14.5); RDW Standard Deviation 47.2 fL (36.4-46.3); Red Blood Count 3.43 M/uL (4.70-6.10); White Blood Count 6.36 K/ul (4.8-10.8)
[2024-07-01 07:25] LABS: Albumin Globulin Ratio 1.7 (0.9-2); Albumin Level 3.5 gm/dl (3.4-5.0); BUN Creatinine Ratio 13.5 (10-20); Bilirubin,Total 0.5 mg/dl (0.2-1.0); Calcium 8.4 mg/dl (8.6-10.3); Creatinine Clr Calc Pharmacy 76.5 ml/min; Est GFR (African American) 103.4 ml/min; Est GFR (Non-African American) 89.3 ml/min; Globulin 2.1 gm/dl (2.5-4.0); Magnesium 1.9 mg/dl (1.7-2.4); Phosphorus 3.9 mg/dl (2.5-4.9); Potassium 4.4 mmol/L (3.5-5.1); Total Protein 5.6 gm/dl (6.0-8.3)
[2024-07-01] MEDS: EZETIMIBE 10 MG TAB PO SCH (08:17)
[2024-07-01] MEDS: ASPIRIN 81 MG ECTAB PO SCH (08:18)
[2024-07-01] MEDS: SERTRALINE HCL 100 MG TABLET PO SCH (08:18)
[2024-07-01] MEDS: PANTOprazole 40 MG TAB PO SCH (08:18)
[2024-07-01] MEDS: ROSUVASTATIN CALCIUM 20 MG TAB PO SCH (08:18)
[2024-07-01] MEDS: LOSARTAN POTASSIUM 25 MG TAB PO SCH (08:19)
[2024-07-01] MEDS: MAGNESIUM OXIDE 400 MG TAB PO SCH (08:22)
--- NOTE | 2024-07-01 08:44 | Communication Note ---
Date of Service: July 01, 2024 Patient seen briefly. Please see consult note from last week. Had stent change this Wednesday and had pain afterwards. Admitted. Now pain is gone. In general GI here has nothing to offer him here with regards to his recurrent "acute on chronic pancreatitis" as Dr. Gross is doing pancreatic therapeutics with him. From GI standpoint he can go home
[2024-07-01] MEDS: ONDANSETRON INJ 2 MG/ML 2 ML VIAL IV PRN (09:40)
--- NOTE | 2024-07-01 16:57 | Hospitalist Progress Note ---
Date of Service July 01, 2024 Assessment & Plan (1) Acute on chronic pancreatitis: Plan 53-year-old male with past medical history significant for dyslipidemia, history of ST elevated [place], CAD status post stent, heart failure with reduced ejection fraction EF 35 to 40%, nonsustained ventricular tachycardia, history of bradycardia, Casanova's esophagus, GERD, tobacco use disorder, general anxiety disorder, history of recurrent pancreatitis presenting with concerning abdo nancy pain. Pancreatitis, acute on chronic Possible post-ERCP pancreatitis Patient presenting with severe abdominal pain CT abdomen pelvis noting "Progression of acute pancreatitis since CT of June 28, 2024" Lipase elevated at 400, up from 40 two days ago [employer] Patient denies recent alcohol use, states he quit drinking alcohol about 10 years ago Patient follows with GI, appears to have had an ERCP on June 28 - ERCP noted open prior biliary sphincterotomy, open prior pancreatic sphincterotomy, biliary sludge that was removed with a balloon, moderate chronic pancreatitis for which 1 pancreatic stent was placed into the ventral pancreatic duct, -Indomethacin was given to decrease the risk of post ERCP pancreatitis and patient was discharged on ciprofloxacin 500 mg p.o. twice daily for 5 days. -It was recommended that patient repeat ERCP in 4 months to remove the stent GI noted that if the stricture is still present they will plan for stricture dilation at that time. Full liq diet today, adv as quang to soft diet ni. IV fluids, will run LR at 125 given patient's CHF status, consider increasing rate as able GI evaled, appreciate further recs Continue ciprofloxacin as prescribed post ERCP Continue to monitor Continue other home meds as ordered Diet: full liq DVT prophylaxis: heparin subcu Dispo: admit to [facility] Admission and Anticipated Discharge Date Admission Date: June 30, 2024 Subjective Patient was seen and examined at bedside. Patient was lying in bed, on room air, NAD, resting comfortably. Patient reports improving abdominal pain, denies complete resolution of belly pain. Does have tenderness on exam. Will initiate on clear liquid diet, advance to full liquid diet today. Continue to monitor. Continue IV hydration. Patient denies febrile illness/flulike illness/sore throat/cough/chest pain/palpitation. Physical Exam Physical Exam: General: Alert, oriented. No acute distress Neuro: No gross deficits HEENT: NC/AT CV: RRR Resp: Breath sounds clear bilaterally, no increased effort of breathing. Abdomen: Soft, epigastric tender Extremities: No edema in lower extremities bilaterally. Results & Data Results & Data Vital Signs (Past 12 Hours) Vital Signs Temp Pulse Resp BP Pulse Ox O2 Del Method 07/01/24 15:02 36.6 C 58 L 18 107/65 97 Room Air 07/01/24 07:59 36.7 C 63 16 122/74 98 Room Air
[2024-07-01] MEDS: FAMOTIDINE 40 MG TABLET PO SCH (20:34)
[2024-07-02 07:45] LABS: Hematocrit (blood only) 35.6 % (42.0-52.0); Hemoglobin 11.9 g/dl (14.0-18.0); Mean Corpuscular Hemoglobin 32.7 pg (25.0-34.0); Mean Corpuscular Hgb Conc 33.4 g/dL (32.0-36.0); Mean Corpuscular Volume 97.8 fL (80.0-100.0); Mean Platelet Volume 9.3 fL (9.4-12.4); Platelet Count 207 K/uL (130-400); RDW Coefficient of Variation 12.8 % (11.5-14.5); RDW Standard Deviation 46.1 fL (36.4-46.3); Red Blood Count 3.64 M/uL (4.70-6.10); White Blood Count 5.52 K/ul (4.8-10.8)
[2024-07-02 07:55] VITALS: BP 133/81; PULSE 70; RESP 18; TEMP 98.2; O2SAT 97
[2024-07-02 08:00] LABS: BUN Creatinine Ratio 10.5 (10-20); Calcium 8.8 mg/dl (8.6-10.3); Est GFR (African American) 92.8 ml/min; Est GFR (Non-African American) 80.1 ml/min; Magnesium 1.8 mg/dl (1.7-2.4); Phosphorus 3.4 mg/dl (2.5-4.9); Potassium 4.1 mmol/L (3.5-5.1)
--- NOTE | 2024-07-02 11:23 | Discharge Summary ---
Date of Service July 02, 2024 Admission HPI Per Admitting Provider 53-year-old male with past medical history significant for dyslipidemia, history of ST elevated [place], CAD status post stent, heart failure with reduced ejection fraction EF 35 to 40%, nonsustained ventricular tachycardia, history of bradycardia, Casanova's esophagus, GERD, tobacco use disorder, general anxiety disorder, history of recurrent pancreatitis presenting with concerning abdominal pain. Patient with known history of pancreatitis. Has been hospitalized here multiple times for the same. He states he was a heavy alcohol drinker for about 10 years and quit about 11 years ago. States he does not currently drink alcohol. Was discharged with acute on chronic pancreatitis on June 25. Was seen in follow-up by GI and had an ERCP on June 28. He was treated with indomethacin for prevention of post ERCP pancreatitis and discharged with ciprofloxacin for 5 days after the procedure. Patient states that he has been having persistent abdominal pain since then with some nausea and vomiting. Has not been able to eat or drink. Denies fevers, chills or night sweats. Admission Exam Per Admitting Provider General: Alert, oriented. No acute distress Neuro: No gross deficits HEENT: NC/AT CV: RRR Resp: Breath sounds clear bilaterally, no increased effort of breathing. Abdomen: Soft, diffusely tender Extremities: No edema in lower extremities bilaterally. Principal Diagnosis Acute on chronic pancreatitis Possible post ERCP pancreatitis Discharge Exam General: Alert, oriented. No acute distress Neuro: No gross deficits HEENT: NC/AT CV: RRR Resp: Breath sounds clear bilaterally, no increased effort of breathing. Abdomen: Soft, epigastric tender improved signficantly per pt Extremities: No edema in lower extremities bilaterally. Discharge Data Allergies Allergy/AdvReac Type Severity Reaction Status Date / Time isosorbide [From Imdur] AdvReac Severe severe Verified 06/30/24 15:00 migraine Consultations 06/30/24 13:38 ED Decision to Admit Stat 06/30/24 19:58 Consult Gastroenterology Routine Ordered Studies 06/30/24 12:47 CT abd pelvis IV con only Stat Hospital Course (1) Acute on chronic pancreatitis: Plan 53-year-old male with past medical history significant for dyslipidemia, history of ST elevated [place], CAD status post stent, heart failure with reduced ejection fraction EF 35 to 40%, nonsustained ventricular tachycardia, history of bradycardia, Casanova's esophagus, GERD, tobacco use disorder, general anxiety disorder, history of recurrent pancreatitis presenting with concerning abdominal pain. 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 twice daily for 5 days. -It was recommended that patient repeat ERCP in 4 months to remove the stent GI noted that if the stricture is still present they will plan for stricture dilation at that time. Tolerated soft diet very well, denied increased abdominal pain, patient reports he has baseline abdominal pain from his chronic pancreatitis. Patient feels better, is hemodynamically stable, would like to go home. Patient made aware to continue his ciprofloxacin as prescribed post ERCP. Patient made aware to follow-up with GI physician upon discharge. Continue other home meds as ordered Diet: full liq DVT prophylaxis: heparin subcu Dispo: admit to [facility] Patient is being discharged home with following instruction at the point of discharge: Follow-up with your primary care physician within a week time and likely you will need labs CBC/CMP/magnesium/phosphorus. Continue with soft diet for next few days before you transition to your regular consistency diet. Finish the course of your ciprofloxacin as prescribed by your GI physician as an outpatient. Follow-up with your GI physician in 2 to 4 months time upon discharge. Take your medications as prescribed. Please make sure that you are able to get your medications today by calling your pharmacy before you leave the hospital so that your treatment continuity is not broken. Home Health Attestation I certify that this patient is under my care and that I, or a physicians events administrative assistant working with me, had a face to-face encounter that meets the home health [id number] encounter requirements with this patient. The encounter with the patient was in whole, or in part, for the following medical condition, which is the primary reason for home health care (list medical condition): I certify that, based on my findings, the following services are medically necessary home health services: My clinical findings support the need for the above services because: Further, I certify that my clinical findings support that this patient is homebound (i.e. absences from home require considerable and taxing effort and are for medical reasons or advent services or infrequently or of short duration when for other reasons) because: Certification for Home Health Services: Based on the above findings, I certify that this patient is confined to the home and needs intermittent care home care, physical therapy and/or speech therapy or continues to need occupational therapy. The patient is under my care, and I have initiated the establishment of the plan of care. This patient will be followed by a physician who will periodically review the plan of care. Total Time Total Time Spent Total Time Spent (In Minutes): 45 Discharge Plan Discharge Items Patient Disposition: Home - Self-Care Reason For Visit: abdominal pain Discharge Diagnosis: Acute on chronic pancreatitis Possible post ERCP pancreatitis Condition on Discharge: Fair Activity: Resume your previous activity Non-emergency contact: Primary Care Provider Call non-emergency contact if: you have any medication questions, your symptoms worsen and your temperature is above 101 Follow-up/Referrals: Wade Bragg MD [Primary Care Provider] - Diet: Heart Healthy Diet Texture: Dental soft (bite-sized) Addtl Attending Provider Instructions: Follow-up with your primary care physician within a week time and likely you will need labs CBC/CMP/magnesium/phosphorus. Continue with soft diet for next few days before you transition to your regular consistency diet. Finish the course of your ciprofloxacin as prescribed by your GI physician as an outpatient. Follow-up with your GI physician in 2 to 4 months time upon discharge. Take your medications as prescribed. Please make sure that you are able to get your medications today by calling your pharmacy before you leave the hospital so that your treatment continuity is not broken. Pending Studies at Discharge: No Stand-Alone Forms: My [place] [employer] [place], Smoking Cessation Medications and DC Order Prescriptions: New oxycodone 5 mg tablet 5 mg PO BID PRN (Reason: pain (scale score 7-10)) Qty: 6 0RF Continued famotidine 40 mg tablet 40 mg PO HS sertraline 100 mg tablet 100 mg PO DAILY aspirin 81 mg tablet,delayed release (DR/EC) 81 mg PO DAILY magnesium oxide 400 mg (241.3 mg magnesium) tablet 400 mg PO DAILY pantoprazole 40 mg tablet,delayed release (DR/EC) 40 mg PO BID losartan 25 mg tablet 12.5 mg PO DAILY metoprolol succinate 25 mg tablet extended release 24 hr 25 mg PO BID ezetimibe 10 mg tablet 10 mg PO DAILY rosuvastatin 40 mg tablet 40 mg PO DAILY Brilinta 90 mg tablet 90 mg PO BID ciprofloxacin HCl 500 mg tablet 500 mg PO BID Rx Instructions: for 5 days from the 18 Discharge Orders: Discharge Order (Routine); Ordered 07/02/24 Ordered By: Prieto Burrell Admission Data Admit Date/Time: 06/30/24 14:59 Attending Provider: Prieto Burrell Admit Provider: Liat Hawk Primary Care Provider: Wade Bragg Other Providers: Liat Hawk; Luis Greer I
== END 2024-07-02 12:10 | disposition home or self-care (01) | DRG 393 ==
LOC: ED 11:24 → EDINP 14:59 → SUATTDRO 14:59 → 3N 20:38

== ENCOUNTER 2024-08-24 16:15 | Inpatient (IN) ==
[2024-08-24 16:43] LABS: Basophils # (auto) 0.09 K/uL (0.00-0.20); Basophils % (auto) 1.3 %; Eosinophils # (auto) 0.16 K/uL (0.00-0.50); Eosinophils % (auto) 2.3 %; Hematocrit (blood only) 43.2 % (42.0-52.0); Hemoglobin 15.1 g/dl (14.0-18.0); Immature Granulocytes # (auto) 0.01 K/uL (0.01-0.20); Immature Granulocytes % (auto) 0.1 %; Lymphocytes # (auto) 2.41 K/uL (1.20-3.40); Lymphocytes % (auto) 34.7 %; Mean Corpuscular Hemoglobin 33.3 pg (25.0-34.0); Mean Corpuscular Volume 95.4 fL (80.0-100.0); Mean Platelet Volume 9.1 fL (9.4-12.4); Monocytes # (auto) 0.56 K/uL (0.11-0.59); Monocytes % (auto) 8.1 %; Neutrophils # (auto) 3.72 K/uL (1.40-6.50); Neutrophils % (auto) 53.5 %; Platelet Count 250 K/uL (130-400); RDW Coefficient of Variation 13.2 % (11.5-14.5); RDW Standard Deviation 46.7 fL (36.4-46.3); Red Blood Count 4.53 M/uL (4.70-6.10); White Blood Count 6.95 K/ul (4.8-10.8)
[2024-08-24] MEDS: ASPIRIN CHEW 324 MG PO STA (16:54)
[2024-08-24] MEDS: SODIUM CHLORIDE 0.9% 1,000 ML IV ONE (16:54)
[2024-08-24 16:55] LABS: Albumin Globulin Ratio 1.6 (0.9-2); Albumin Level 4.4 gm/dl (3.4-5.0); BUN Creatinine Ratio 8.8 (10-20); Bilirubin,Total 0.3 mg/dl (0.2-1.0); Calcium 9.9 mg/dl (8.6-10.3); Creatinine Clr Calc Pharmacy 47.5 ml/min; Globulin 2.7 gm/dl (2.5-4.0); Potassium 4.2 mmol/L (3.5-5.1); Total Protein 7.1 gm/dl (6.0-8.3)
[2024-08-24] MEDS: NITROGLYCERIN SL 0.4 MG/TAB TAB SL PRN (16:58)
[2024-08-24 17:02] LABS: Troponin I High Sensitivity 10.4 pg/ml (0-20)
[2024-08-24 17:06] LABS: D Dimer 260 ug/L FEU (0-500); INR 0.9 (0.9-1.1); Partial Thromboplastin Time 27 Seconds (21-31); Prothrombin Time 10.1 Seconds (9.0-12.0)
--- NOTE | 2024-08-24 17:48 | XRay Report ---
EXAM: XR chest 1V not portable CLINICAL HISTORY: CHEST PAIN MRN/KFK TECHNIQUE: An X-ray image of the chest is obtained in AP projection. COMPARISON: 06/28/2024 FINDINGS: Pulmonary Parenchyma: Both mid- to upper lung zones are hyperaerated. Increased bronchovascular markings bilaterally. No evidence of consolidation, collapse, or focal opacities. No pulmonary nodules are identified. No evidence of pleural effusion or pleural thickening. Heart and Mediastinum: Heart size and shape are normal. No mediastinal widening or masses. No hilar or mediastinal lymphadenopathy. Bony Thorax: Bony thorax appears intact without fractures or deformities. Soft Tissues: Soft tissues overlying the chest wall are unremarkable. IMPRESSION: Both mid- to upper lung zones are hyperaerated. Increased bronchovascular markings bilaterally. No significant interval change. Suggest clinical correlation and CT scan if clinically warranted. Electronically signed by Ziggy Candelaria 08-24-2024 5:47 PM
--- NOTE | 2024-08-24 18:08 | History & Physical Report ---
Date of Service August 24, 2024 Assessment & Plan (1) Elevated lipase: (2) Epigastric abdominal pain: (3) Acute on chronic pancreatitis: (4) Non-ST elevation (NSTEMI) myocardial infarction: (5) Grade II diastolic dysfunction: (6) Barretts esophagus: (7) HLD (hyperlipidemia): (8) CAD (coronary artery disease): (9) RADHA (generalized anxiety disorder): (10) Depression: Plan Assessment and plan: Chest pain/rule out ACS: DC x 5- s/p PCI with multiple stents: EKG with no acute changes, troponin/D-dimer WNL Recheck echo, consult cardiology with extensive cardiac history Telemetry monitoring, trend troponin, repeat EKG in a.m. Continue Brilinta/aspirin/metoprolol Hx chronic pancreatitis s/p pancreatic stent: Recent pancreatic stent placed last month with improvement, lipase elevated Check amylase and repeat lipase in a.m. consider GI consult if no improvement Hx HTN/ischemic cardiomyopathy/HLD: Continue home cardiac medications Hx depression: Continue sertraline Hx GERD: Continue pantoprazole A total of 60 minutes was spent in chart review/facilitating plan of care/reviewing diagnostic data/discussion with consultants Full code DVT prophylaxis: SCDs, patient refusing AC History of Present Illness Chief Complaint: cp, sob Primary Care Provider: Wade Bragg MD The patient is a 53 year old male with a pmh of htn/hld/ischemic cardiomyopathy/chronic pancreatitis/CAD/depression/Casanova's esophagus/grade 2 diastolic dysfunction/mi x 5 s/p stent-placement last 1 about a year ago, gerd, reports to the er today 08/24/24 with complaints of sob, cp, and left arm pain/weakness since earlier this afternoon. The pain came on at work today and he is still currently having some substernal cp. Does not worsen with activity. 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 Reports some nausea but denies vomiting. Reports upper abdominal pain. Reports a chronic abdominal pain. The pain comes and goes. Reports a recent pancreatic stent placed about 1 month ago and feeling better since he had the stent placed. Patient reports having a turkey lunch earlier before the abdominal/chest pain started. On arrival to the ED, labs remarkable for lipase 268, creatinine 1.48 current half pack smoker. Denies alcohol or drug use Reports chronic diarrhea Denies fevers/sore throat, cough, heart palpitations/recent travel/recent respiratory illness CXR was negative Troponin/D-dimer unremarkable, EKG with no acute changes The patient will be admitted for further chest pain workup Allergies Allergy/AdvReac Type Severity Reaction Status Date / Time isosorbide [From Imdur] AdvReac Severe severe Verified 06/30/24 15:00 migraine Home Medications Medication Instructions Recorded Confirmed Type aspirin 81 mg tablet,delayed 81 mg PO DAILY 06/25/24 08/24/24 History release ezetimibe 10 mg tablet 10 mg PO DAILY 06/25/24 08/24/24 History famotidine 40 mg tablet 40 mg PO HS 06/25/24 08/24/24 History losartan 25 mg tablet 12.5 mg PO DAILY 06/25/24 08/24/24 History magnesium oxide 400 mg (241.3 mg 400 mg PO DAILY 06/25/24 08/24/24 History magnesium) tablet metoprolol succinate 25 mg 25 mg PO BID 06/25/24 08/24/24 History tablet,extended release 24 hr pantoprazole 40 mg tablet,delayed 40 mg PO BID 06/25/24 08/24/24 History release rosuvastatin 40 mg tablet 40 mg PO DAILY 06/25/24 08/24/24 History sertraline 100 mg tablet 100 mg PO DAILY 06/25/24 08/24/24 History ticagrelor 90 mg tablet (Brilinta) 90 mg PO BID 06/25/24 08/24/24 History Past Med/Surg History Problem List (Updated 07/14/24 @ 00:07 by Emigdio Fishman) Hypomagnesemia (Acute) History of insertion of pancreatic stent (Acute) Elevated lipase (Acute) Acute pancreatitis (Acute) Epigastric abdominal pain (Acute) Abdominal pain (Acute) Acute on chronic pancreatitis (Acute) Abdominal pain (Acute) Epigastric abdominal pain Abdominal pain, acute (Acute) Acute pancreatitis (Acute) SVT (supraventricular tachycardia) Chest pain (Acute) Acute pancreatitis (Acute) GERD (gastroesophageal reflux disease) Chest pain (Acute) Ischemic cardiomyopathy Non-sustained ventricular tachycardia (Acute) Elevated troponin (Acute) Bradycardia (Acute) Chronic pancreatitis Sinus bradycardia Chest pain (Acute) Hematoma Tobacco abuse Recurrent pancreatitis (Acute) Non-ST elevation (NSTEMI) myocardial infarction (Acute) Acute on chronic pancreatitis Abdominal pain (Acute) Lesion of pancreas Elevated lipase Pancreatitis (Acute) Chest pain (Acute) Chest pain Acute pancreatitis (Acute) Abdominal pain, periumbilical (Acute) Anemia Hypomagnesemia Hypophosphatemia Hx laparoscopic cholecystectomy (08/22/21) Laparoscopic Cholecystectomy Dr. Davidson 08/22/2021 Grade II diastolic dysfunction Barretts esophagus Acute pancreatitis (Acute) Non-ST elevation DC (NSTEMI) (Acute) Breath shortness (Acute) DVT prophylaxis Chest pain (Acute) HLD (hyperlipidemia) RADHA (generalized anxiety disorder) CAD (coronary artery disease) (Acute) 2018-RCA stent x 2 07/2020-STEMI, s/p PCI to left circumflex with 2 MELLY. Post procedure complicated by V. fib arrest requiring defibrillation. 12/2020-NSTEMI s/p 3 Xience MELLY to the distal aspect of prior stent of the left posterior lateral branch vessel Depression GERD (gastroesophageal reflux disease) (Acute) Medical History ST elevation myocardial infarction (STEMI) COVID-29 Oct 2021 Mobitz type 2 second degree atrioventricular block Tobacco abuse Splenic infarct Surgical History History of endoscopic retrograde cholangiopancreatography x2 (08/31, 09/30) History of vasectomy Family History Mother Gallbladder disease Sister Gallbladder disease Other Diabetes Stroke Denies family history of Pancreatic disease Social History Smoking Status: Current every day smoker Tobacco Type: Cigarettes Cigarettes Per Day: 1/2 pk per day; Second Hand Exposure: No; Do You Dip or Chew Tobacco: No; Tobacco Cessation Education Requested by Patient: No Hx Alcohol Use: No Hx Substance Use: No Preferred Language: Cantonese Russian Communication Ability: Effective Geomorphologist Required: No Beliefs That Will Affect Care: None marital status: Single Current Living Situation: Alone current occupational status: employed Other Information That Helps Us Care for You: No Feels Safe at Home: Yes Safety Concerns: Feels Safe At This Time Assistive Devices: None Review of Systems Review of Systems: All systems reviewed & are unremarkable except as noted in HPI & below Physical Exam Constitutional: WD/WN, vitals as above Eyes: PERRL, conjunctivae normal, anicteric sclerae ENMT: external ear and nose normal, oropharynx normal Respiratory: normal respiratory effort, lungs clear to auscultation Cardiovascular: RRR, no murmur, no edema Gastrointestinal (Abdomen): normal bowel sounds, soft, nontender, no hepatosplenomegaly Musculoskeletal: no cyanosis or clubbing, extremities motor strength 5/5 Skin: no rashes, warm and dry Neurologic: PERRL, EOMI, accommodation nl, no face palsy, no dysarthria Lymphatic: no cervical or axillary lymphadenopathy Results & Data Results & Data Vital Signs (Past 12 Hours) Vital Signs Temp Pulse Resp BP Pulse Ox O2 Del Method 08/24/24 16:35 59 L 08/24/24 16:21 36.3 C L 85 20 159/94 H 98 Room Air Diagnostic Findings Laboratory Results WBC 6.95 K/ul (4.8-10.8) 08/24/24 16: RBC 4.53 M/uL (4.70-6.10) L 08/24/24 16:27 Hgb 15.1 g/dl (14.0-18.0) 08/24/24 16: Hct 43.2 % (42.0-52.0) 08/24/24 16: MCV 95.4 fL (80.0-100.0) 08/24/24 16: MCH 33.3 pg (25.0-34.0) 08/24/24 16: MCHC 35.0 g/dL (32.0-36.0) 08/24/24 16:27 RDW Std Deviation 46.7 fL (36.4-46.3) H 08/24/24 16:27 RDW Coeff of Mckinley 13.2 % (11.5-14.5) 08/24/24 16:27 Plt Count 250 K/uL (130-400) 08/24/24 16: MPV 9.1 fL (9.4-12.4) L 08/24/24 16: Immature Gran % (Auto) 0.1 % 08/24/24 16: Neut % (Auto) 53.5 % 08/24/24 16: Lymph % (Auto) 34.7 % 08/24/24 16:27 [place] % (Auto) 8.1 % 08/24/24 16:27 Eos % (Auto) 2.3 % 08/24/24 16:27 Baso % (Auto) 1.3 % 08/24/24 16:27 Neut # (Auto) 3.72 K/uL (1.40-6.50) 08/24/24 16:27 Lymph # (Auto) 2.41 K/uL (1.20-3.40) 08/24/24 16:27 [place]osa # (Auto) 0.56 K/uL (0.11-0.59) 08/24/24 16:27 Eos # (Auto) 0.16 K/uL (0.00-0.50) 08/24/24 16: Baso # (Auto) 0.09 K/uL (0.00-0.20) 08/24/24 16: Immature Gran # (Auto) 0.01 K/uL (0.01-0.20) 08/24/24 16:27 PT 10.1 Seconds (9.0-12.0) 08/24/24 16:27 INR 0.9 (0.9-1.1) 08/24/24 16: APTT 27 Seconds (21-31) 08/24/24 16: PTT Ratio 1.0 08/24/24 16:27 D-Dimer 260 ug/L FEU (0-500) 08/24/24 16:27 Sodium 139 mmol/L (136-145) 08/24/24 16:27 Potassium 4.2 mmol/L (3.5-5.1) 08/24/24 16:27 Chloride 106 mmol/L (98-107) 08/24/24 16:27 Carbon Dioxide 26 mmol/L (21-32) 08/24/24 16:27 Anion Gap 7 (3-11) 08/24/24 16:27 BUN 13 mg/dl (6-23) 08/24/24 16:27 Creatinine 1.48 mg/dl (0.6-1.4) H 08/24/24 16:27 Est Cr Clr Drug Dosing 47.5 ml/min 08/24/24 16:27 eGFR 55.87 08/24/24 16:27 BUN/Creatinine Ratio 8.8 (10-20) L 08/24/24 16:27 Glucose 101 mg/dl (70-99(Fasting)) H 08/24/24 16:27 Calcium 9.9 mg/dl (8.6-10.3) 08/24/24 16:27 Total Bilirubin 0.3 mg/dl (0.2-1.0) 08/24/24 16:27 AST 19 U/L (13-39) 08/24/24 16:27 ALT 15 U/L (7-52) 08/24/24 16:27 Alkaline Phosphatase 69 U/L (34-104) 08/24/24 16:27 Troponin I High Sens 10.4 pg/ml (0-20) 08/24/24 16:27 Total Protein 7.1 gm/dl (6.0-8.3) 08/24/24 16:27 Albumin 4.4 gm/dl (3.4-5.0) 08/24/24 16:27 Globulin 2.7 gm/dl (2.5-4.0) 08/24/24 16:27 Albumin/Globulin Ratio 1.6 (0.9-2) 08/24/24 16:27 Lipase 268 U/L (11-82) H 08/24/24 16:27 Impressions Chest X-Ray 08/24/24 16:24 EXAM: XR chest 1V not portable CLINICAL HISTORY: CHEST PAIN MRN/KFK TECHNIQUE: An X-ray image of the chest is obtained in AP projection. COMPARISON: 06/28/2024 FINDINGS: Pulmonary Parenchyma: Both mid- to upper lung zones are hyperaerated. Increased bronchovascular markings bilaterally. No evidence of consolidation, collapse, or focal opacities. No pulmonary nodules are identified. No evidence of pleural effusion or pleural thickening. Heart and Mediastinum: Heart size and shape are normal. No mediastinal widening or masses. No hilar or mediastinal lymphadenopathy. Bony Thorax: Bony thorax appears intact without fractures or deformities. Soft Tissues: Soft tissues overlying the chest wall are unremarkable. IMPRESSION: Both mid- to upper lung zones are hyperaerated. Increased bronchovascular markings bilaterally. No significant interval change. Suggest clinical correlation and CT scan if clinically warranted. Electronically signed by Ziggy Candelaria 08-24-2024 5:47 PM Supervising Physician Co-Signing Physician Notes 53-year-old male with extensive cardiac history, recurrent/chronic pancreatitis, HTN, HLD, ischemic cardiomyopathy, Casanova's esophagus, grade 2 diastolic dysfunction presented to the ED with complaint of chest pain that started during activity today, reports substernal chest pain, associated with left upper extremity numbness/dizziness/nausea/shortness of breath, not relieved with aspirin and nitro, no aggravating factor. patient also has history of recurrent pancreatitis, reports upper belly pain 2/10, reports it is his usual pain, denies any increase in his upper belly pain at the moment. Denies vomiting. Reports nausea. Patient does complain of diarrhea which is his usual. Still smokes a pack of cigarette daily, has been counseled multiple times in the past for smoking cessation, counselled again. Has been smoking 30+ years. Denies alcohol and recreational drug use. Labs and imagings reviewed: Labs fairly WNL except for creatinine of 1.48 and lipase of 268. Amylase of 130. First set of troponin WNL, repeat pending. CXR with no acute finding. Chest pain rule out ACS: Trend troponin, continue telemetry monitoring, n.p.o., cardiology consult Given extensive cardiac medical history. Rule out recurrent pancreatitis: Patient reports epigastric pain at his baseline, epigastrium is tender on exam, amylase and lipase elevated, will keep n.p.o., continue IV fluid, will get US abdomen to rule out pancreatitis. repeat amylase and lipase in am. RENEA: hold losartan, c/w ivf, labs in AM. On exam: GENERAL: Alert and oriented x3. NAD, on RA. HEENT: No pallor, no icterus. Pupils equal, round and reactive to light. Oral mucosa moist. NECK: No JVD, no neck masses. HEART: S1 and S2 heard. Regular rate and rhythm. No murmur, no gallop. RESPIRATORY SYSTEM: Normal AP diameter. No accessory muscle use. No wheezing, no crackles. ABDOMEN: Soft, bowel sounds present, tender epigastric, no distention. CENTRAL NERVOUS SYSTEM: No facial droop. Speech is clear. Obeys simple commands. Moves extremities. EXTREMITIES: No edema, no erythema seen. I have seen and examined the patient and have discussed the case with the provider above. I agree with the assessment and plan as stated. Time spent: 35 min
[2024-08-24] MEDS: MoRPHine SULFATE 4 MG/ML 1 ML CARP\\VIAL IV STA (18:13)
[2024-08-24] MEDS ORDERED: ACETAMINOPHEN 325 MG TAB PO PRN (18:41)
[2024-08-24] MEDS: LACTATED RINGER'S 1,000 ML IV SCH (18:49)
[2024-08-24 19:14] LABS: Troponin I High Sensitivity 19.3 pg/ml (0-20)
--- NOTE | 2024-08-24 20:54 | Emergency Department Note ---
History of Present Illness General Chief Complaint: Cardiac Assessment Stated Complaint: CHEST PAIN, SOB, LEFT ARM NUMBNESS Time Seen by Provider: 08/24/24 16:30 History of Present Illness Provider Complaint: chest pain Time: 15:00 Duration: constant Onset: during rest Pain Location: substernal Pain Radiation: LUE Severity: moderate Maximum Pain Intensity: 7 Current Pain Intensity: 7 Quality: + heaviness Relieved By: + nothing Exacerbated By: + nothing Context: no recent illness, no recent surgery, no recent immobilization, no recent travel, no trauma/injury or no new medications Associated symptoms: + dyspnea; no nausea, no vomiting, no syncope, no palpitations or no cough No abdominal pain nausea vomiting diarrhea or fever. Home Medications Medication Instructions Recorded Confirmed Type aspirin 81 mg tablet,delayed 81 mg PO DAILY 06/25/24 08/24/24 History release ezetimibe 10 mg tablet 10 mg PO DAILY 06/25/24 08/24/24 History famotidine 40 mg tablet 40 mg PO HS 06/25/24 08/24/24 History losartan 25 mg tablet 12.5 mg PO DAILY 06/25/24 08/24/24 History magnesium oxide 400 mg (241.3 mg 400 mg PO DAILY 06/25/24 08/24/24 History magnesium) tablet metoprolol succinate 25 mg 25 mg PO BID 06/25/24 08/24/24 History tablet,extended release 24 hr pantoprazole 40 mg tablet,delayed 40 mg PO BID 06/25/24 08/24/24 History release rosuvastatin 40 mg tablet 40 mg PO DAILY 06/25/24 08/24/24 History sertraline 100 mg tablet 100 mg PO DAILY 06/25/24 08/24/24 History ticagrelor 90 mg tablet (Brilinta) 90 mg PO BID 06/25/24 08/24/24 History Allergies Allergy/AdvReac Type Severity Reaction Status Date / Time isosorbide [From Imdur] AdvReac Severe severe Verified 06/30/24 15:00 migraine Past Med/Surg History Problem List (Updated 08/24/24 @ 20:54 by Roney Prasad MD) Chest pain (Acute) Hypomagnesemia (Acute) History of insertion of pancreatic stent (Acute) Elevated lipase (Acute) Acute pancreatitis (Acute) Epigastric abdominal pain (Acute) Abdominal pain (Acute) Acute on chronic pancreatitis (Acute) Abdominal pain (Acute) Epigastric abdominal pain Abdominal pain, acute (Acute) Acute pancreatitis (Acute) SVT (supraventricular tachycardia) Chest pain (Acute) Acute pancreatitis (Acute) GERD (gastroesophageal reflux disease) Chest pain (Acute) Ischemic cardiomyopathy Non-sustained ventricular tachycardia (Acute) Elevated troponin (Acute) Bradycardia (Acute) Chronic pancreatitis Sinus bradycardia Chest pain (Acute) Hematoma Tobacco abuse Recurrent pancreatitis (Acute) Non-ST elevation (NSTEMI) myocardial infarction (Acute) Acute on chronic pancreatitis Abdominal pain (Acute) Lesion of pancreas Elevated lipase Pancreatitis (Acute) Chest pain (Acute) Chest pain Acute pancreatitis (Acute) Abdominal pain, periumbilical (Acute) Anemia Hypomagnesemia Hypophosphatemia Hx laparoscopic cholecystectomy (08/22/21) Laparoscopic Cholecystectomy Dr. Davidson 08/22/2021 Grade II diastolic dysfunction Barretts esophagus Acute pancreatitis (Acute) Non-ST elevation [place] (NSTEMI) (Acute) Breath shortness (Acute) DVT prophylaxis Chest pain (Acute) HLD (hyperlipidemia) RADHA (generalized anxiety disorder) CAD (coronary artery disease) (Acute) 2018-RCA stent x 2 07/2020-STEMI, s/p PCI to left circumflex with 2 MELLY. Post procedure complicated by V. fib arrest requiring defibrillation. 12/2020-NSTEMI s/p 3 Xience MELLY to the distal aspect of prior stent of the left posterior lateral branch vessel Depression GERD (gastroesophageal reflux disease) (Acute) Medical History ST elevation myocardial infarction (STEMI) COVID-29 Oct 2021 Mobitz type 2 second degree atrioventricular block Tobacco abuse Splenic infarct Surgical History History of endoscopic retrograde cholangiopancreatography x2 (08/31, 09/30) History of vasectomy Family History Mother Gallbladder disease Sister Gallbladder disease Other Diabetes Stroke Denies family history of Pancreatic disease Social History Smoking Status: Current every day smoker Tobacco Type: Cigarettes Cigarettes Per Day: 1/2 pk per day; Second Hand Exposure: No; Do You Dip or Chew Tobacco: No; Tobacco Cessation Education Requested by Patient: No Hx Alcohol Use: No Hx Substance Use: No Preferred Language: Cantonese Serbian Communication Ability: Effective Area Mechanic Required: No Beliefs That Will Affect Care: None marital status: Single Current Living Situation: Alone current occupational status: employed Other Information That Helps Us Care for You: No Feels Safe at Home: Yes Safety Concerns: Feels Safe At This Time Assistive Devices: None Physical Exam Vital Signs Vital Signs - 24 hr 08/24/24 16:21 08/24/24 16:21 08/24/24 16:35 Temperature 36.3 C L Temperature Source Temporal Artery Scan Pulse Rate 85 59 L Respiratory Rate 20 Respiratory Effort / Characteristics Short of Breath Blood Pressure 159/94 H Blood Pressure Mean 115 Pulse Oximetry 98 Oxygen Delivery Method Room Air Sepsis Recent Fever Within 48 Hours No Sepsis New/Unexplained Change in Mental Status N/A Sepsis Action Taken by Nursing No Action Required Physical Exam GENERAL: oriented to person, place, and time. appears well-developed and well- nourished. She does not appear distressed. HENT: Exam performed. -Head: Normocephalic and atraumatic. -Right Ear: External ear normal. No mastoid erythema -Left Ear: External ear normal. No mastoid erythema -Mouth/Throat: The oropharynx is clear and moist. No trismus in the jaw. No dental abscesses or uvula swelling. No oropharyngeal exudate or tonsillar abscesses. EYES: Conjunctivae and EOM are normal.Right eye exhibits no discharge. Left eye exhibits no discharge. No scleral icterus. NECK: Normal range of motion. Neck supple. No JVD present. No tracheal deviation and normal range of motion present. CV: Normal rate, regular rhythm, normal heart sounds and intact distal pulses. There is no peripheral edema. Palpable radial pulses bue. PULM/CHEST: Effort normal and breath sounds normal. No respiratory distress. No stridor. no wheezes.no rales. -Chest Wall: no tenderness to palpation ABD: The abdomen is soft. Bowel sounds are normal. no distension. No mass is present. There is no tenderness. There is no rebound, no guarding, no Pattreson's sign and no tenderness at McBurney's point. Rovsig negative MUSC/SKEL: Normal range of motion. There is no peripheral edema, tenderness or deformity. NEURO: Motor and sensation grossly intact. SKIN: Skin is warm and dry. not diaphoretic. PSYCH: normal mood and affect. Behavior is normal. Judgment and thought content normal. Course Course 1630: The patient was evaluated in room C3. A complete history and physical exam was performed Cardiac monitoring: An order was placed for continuous cardiac monitoring. The monitor shows a rate of 60 with sinus rhythm interpreted by me 1730: Vital signs stable. Labs and imaging are unremarkable with the exception of a mildly elevated serum lipase. On reassessment, patient has no pain on palpation of the abdomen. Patient will be admitted for chest pain rule out ACS. Administered Medications Lactated Ringer's (Lr) 1,000 mls @ 80 mls/hr IV .[id number] ALYCIA Stop: 08/25/24 18:40 Last Admin: 08/24/24 18:49 Dose: 80 mls/hr Documented By: DANY Nitroglycerin (Nitroglycerin Sl 0.4 Mg/Tab Tab) 0.4 mg SL Q5M PRN PRN Reason: Chest Pain Stop: 09/23/24 16:36 Last Admin: 08/24/24 16:58 Dose: 0.4 mg Documented By: LIDIA Discontinued Medications Aspirin (Aspirin Chew 324 Mg) 324 mg PO NOW STA Stop: 08/24/24 16:38 Last Admin: 08/24/24 16:54 Dose: 324 mg Documented By: LIDIA Sodium Chloride (Nss) 1,000 mls @ 999 mls/hr IV .Q1H1M ONE Stop: 08/24/24 17:37 Last Infusion: 08/24/24 19:11 Dose: Infused Documented By: Admin: 08/24/24 16:54 Dose: 999 mls/hr Documented By: LIDIA Morphine Sulfate (Morphine Sulfate 4 Mg/Ml 1 Ml Carp\Vial) 4 mg IV NOW STA Stop: 08/24/24 17:44 Last Admin: 08/24/24 18:13 Dose: 4 mg Documented By: GUY Medical Decision Making Laboratory Data Attestation: I reviewed the patient's lab results. 08/24/24 16:27 08/24/24 16:27 Labs: Lab Results 08/24/24 Range/Units 16:27 WBC 6.95 (4.8-10.8) K/ul RBC 4.53 L (4.70-6.10) M/uL Hgb 15.1 (14.0-18.0) g/dl Hct 43.2 (42.0-52.0) % MCV 95.4 (80.0-100.0) fL MCH 33.3 (25.0-34.0) pg MCHC 35.0 (32.0-36.0) g/dL RDW Std Deviation 46.7 H (36.4-46.3) fL RDW Coeff of Mckinley 13.2 (11.5-14.5) % Plt Count 250 (130-400) K/uL MPV 9.1 L (9.4-12.4) fL Immature Gran % (Auto) 0.1 % Neut % (Auto) 53.5 % Lymph % (Auto) 34.7 % Tyler % (Auto) 8.1 % Eos % (Auto) 2.3 % Baso % (Auto) 1.3 % Neut # (Auto) 3.72 (1.40-6.50) K/uL Lymph # (Auto) 2.41 (1.20-3.40) K/uL Tyler # (Auto) 0.56 (0.11-0.59) K/uL Eos # (Auto) 0.16 (0.00-0.50) K/uL Baso # (Auto) 0.09 (0.00-0.20) K/uL Immature Gran # (Auto) 0.01 (0.01-0.20) K/uL PT 10.1 (9.0-12.0) Seconds INR 0.9 (0.9-1.1) APTT 27 (21-31) Seconds PTT Ratio 1.0 D-Dimer 260 (0-500) ug/L FEU Sodium 139 (136-145) mmol/L Potassium 4.2 (3.5-5.1) mmol/L Chloride 106 (98-107) mmol/L Carbon Dioxide 26 (21-32) mmol/L Anion Gap 7 (3-11) BUN 13 (6-23) mg/dl Creatinine 1.48 H (0.6-1.4) mg/dl Est Cr Clr Drug Dosing 47.5 ml/min eGFR 55.87 BUN/Creatinine Ratio 8.8 L (10-20) Glucose 101 H (70-99(Fasting)) mg/dl Calcium 9.9 (8.6-10.3) mg/dl Total Bilirubin 0.3 (0.2-1.0) mg/dl AST 19 (13-39) U/L ALT 15 (7-52) U/L Alkaline Phosphatase 69 (34-104) U/L Troponin I High Sens 10.4 (0-20) pg/ml Total Protein 7.1 (6.0-8.3) gm/dl Albumin 4.4 (3.4-5.0) gm/dl Globulin 2.7 (2.5-4.0) gm/dl Albumin/Globulin Ratio 1.6 (0.9-2) Lipase 268 H (11-82) U/L Imaging Data Chest x-ray: Attestation: I personally reviewed and interpreted this imaging study as follows: My impression: Chest x-ray negative. Airway clear. No pneumothorax. No consolidation. No cardiomegaly or cephalization.. No free air under the diaphragm. No fractures of the skeletal structures. Radiologist's impression: Chest X-Ray 08/24/24 16:24 EXAM: XR chest 1V not portable CLINICAL HISTORY: CHEST PAIN MRN/KFK TECHNIQUE: An X-ray image of the chest is obtained in AP projection. COMPARISON: 06/28/2024 FINDINGS: Pulmonary Parenchyma: Both mid- to upper lung zones are hyperaerated. Increased bronchovascular markings bilaterally. No evidence of consolidation, collapse, or focal opacities. No pulmonary nodules are identified. No evidence of pleural effusion or pleural thickening. Heart and Mediastinum: Heart size and shape are normal. No mediastinal widening or masses. No hilar or mediastinal lymphadenopathy. Bony Thorax: Bony thorax appears intact without fractures or deformities. Soft Tissues: Soft tissues overlying the chest wall are unremarkable. IMPRESSION: Both mid- to upper lung zones are hyperaerated. Increased bronchovascular markings bilaterally. No significant interval change. Suggest clinical correlation and CT scan if clinically warranted. Electronically signed by Ziggy Candelaria 08-24-2024 5:47 PM ECG Data Attestation: I personally reviewed and interpreted this ECG as follows: Indication: chest pain Rate (beats per minute): 62 Rhythm: normal sinus Findings: no ST depression, no ST elevation or no prolonged QT Additional Comments: [place] 118 MDM Narrative 1630: The patient was evaluated in room C3. A complete history and physical exam was performed Cardiac monitoring: An order was placed for continuous cardiac monitoring. The monitor shows a rate of 60 with sinus rhythm interpreted by me 1730: Vital signs stable. Labs and imaging are unremarkable with the exception of a mildly elevated serum lipase. On reassessment, patient has no pain on palpation of the abdomen. Patient will be admitted for chest pain rule out ACS. Impression & Plan Chest pain, Elevated lipase Discharge Plan Visit Data Chief Complaint: Cardiac Assessment Stated Complaint: CHEST PAIN, SOB, LEFT ARM NUMBNESS ED Provider: Roney Prasad Discharge Problem: Chest pain, Elevated lipase Patient Disposition: Admitted As Inpatient Discharge Instructions Interventions: ED Discharge Assessment Last Done: 08/24/24 18:20 Discharge Problem: Chest pain Qualifiers: Chest pain type: unspecified Qualified Code(s): R07.9 - Chest pain, unspecified
[2024-08-24] MEDS ORDERED: PROMETHAZINE 6.25 MG/50.25 ML BAG IV PRN (21:00)
[2024-08-24] MEDS: TICAGRELOR 90 MG TAB PO SCH (21:05)
[2024-08-24] MEDS: PANTOprazole 40 MG TAB PO SCH (21:05)
[2024-08-24] MEDS: METOPROLOL SUCC 25MG EXT REL TAB PO SCH (21:06)
[2024-08-24] MEDS: FAMOTIDINE 40 MG TABLET PO SCH (21:06)
[2024-08-24] MEDS: MoRPHine SULFATE 4 MG/ML 1 ML CARP\\VIAL IV PRN (21:22)
[2024-08-24] MEDS: NITROGLYCERIN SL 0.4 MG/TAB TAB SL STA (22:20)
[2024-08-25] MEDS: oxyCODONE HCL IR 5 MG TAB (IMMEDIATE RELEASE) PO PRN (02:32)
[2024-08-25] MEDS: EZETIMIBE 10 MG TAB PO SCH (08:28)
[2024-08-25] MEDS: SERTRALINE HCL 100 MG TABLET PO SCH (08:29)
[2024-08-25] MEDS: ROSUVASTATIN CALCIUM 20 MG TAB PO SCH (08:29)
[2024-08-25] MEDS: ASPIRIN 81 MG ECTAB PO SCH (08:29)
--- NOTE | 2024-08-25 09:58 | Cardiology Consultation ---
Date of Consultation August 25, 2024 Assessment & Plan (1) Chest pain: (2) Epigastric abdominal pain: (3) Ischemic cardiomyopathy: (4) ASCVD (arteriosclerotic cardiovascular disease): (5) Bradycardia: (6) Dyslipidemia, goal LDL below 70: (7) HTN (hypertension): Plan Complex 53-year-old male admitted with substernal/epigastric discomfort as detailed below. EKG obtained while having discomfort was without acute ST segment change. High-sensitivity troponin negative x 4 after hours of discomfort. Resting echocardiography with no new wall motion abnormality, LV systolic function mildly improved compared to prior. Imaging and examination without overt decompensated heart failure. Telemetry monitoring without significant arrhythmia. Examination notable for mid to upper abdominal tenderness, laboratory findings suggestive of possible recurrent acute pancreatitis. Options of management discussed. Recommend continue cardiac medical management. Continue guideline directed medical therapy with metoprolol succinate, low-dose losartan, dual antiplatelet therapy with aspirin and Brilinta, high intensity statin therapy (rosuvastatin 40 mg/day) and ezetimibe 10 mg/day. Patient with past intolerance to long-acting nitrates (Imdur) secondary to severe migraines. Recommend trial of low-dose amlodipine 2.5 mg/day Supervising Physician Co-Signing Physician Notes Patient was seen and personally examined. Full assessment and plan as outlined by advanced provider above. Care and management discussed in detail and personally endorsed. 53-year-old male with complex cardiac history presents with symptoms of mid and upper gastric pain and tenderness. Despite cardiovascular risk factors no acute findings to suggest coronary ischemia by EKG and cardiac enzymes. Echocardiogram demonstrates improved LV systolic function in comparison to prior study of January 2024 Current complaints do not appear to be anginal equivalent History of Present Illness Reason for Consultation: Chest pain Requesting Physician: [facility], Kylah MCCLENDON Attending Physician: Dr. Jun Richard, DO History of Present Illness Mr. Oc Cazares is a 53-year-old male who presented to [facility] on August 24, 2024 with substernal/epigastric chest discomfort. 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 He notes being able to finish up the work and finish up the day despite discomfort before returning home. At home he continued to experience discomfort that was associated with nausea and some shortness of breath and elected to proceed to [facility] ER for further evaluation and treatment. Chest discomfort persisted on presentation with EKG showing no acute ST segment change. High-sensitivity troponin now negative x 4 (10.4 -> 19.3 -> 11.7 -> 11.7). Repeat EKGs without acute change. Resting echocardiography earlier today demonstrated known findings of large sized septal, inferior, and posterior wall motion abnormality with hypokinesis to akinesis of the segments. When compared to prior study of January 22, 2024 LV systolic function has improved slightly, EF now 40 to 45%. Patient notes receiving sublingual nitroglycerin without perceived benefit. After nitroglycerin patient received IV morphine with definite improvement. Last night patient developed epigastric discomfort that radiated up into the chest, symptoms consistent with prior pancreatitis issues. Patient notes being active in and around his home as well as at work as a computer specialist. He is able to perform all duties without cardiopulmonary limitation. No fluid retention. No syncope. No fevers or chills, chronically with diarrhea, without melena or hematochezia. Past Medical and Surgical History: Premature coronary artery disease, ischemic cardiomyopathy, NYHA class I-II functional status, LVEF 35 to 40% via January 2024 resting echocardiogram, narrow QRS duration March 15 NSTEMI, severe culprit single-vessel CAD with 99% mid RCA, 40% proximal LAD, and 50% mid LAD (PCI of proximal to mid and late/mid RCA with x 2 MELLY, 3.5 x 18 mm, 3.25 x 15 mm Xience) moderate to severe mid LAD disease by IVUS, 60 to 70%, no significant ostial/proximal LAD disease October 25, 2018 Catheterization: Moderate non-obstructive coronary artery disease. 60% mid LAD (FFR 0.85). August 08, 2020 Inferior STEMI with 100% acute distal left circumflex occlusion at bifurcation with large PLB, moderate nonobstructive CAD, 50 to 60% mid LAD stenosis unchanged from 10/2018, widely patent RCA stents. Cath complicated by V-fib arrest requiring defibrillation x 1 and postarrest cardiogenic shock requiring norepinephrine. Successful PCI of PLB/distal circumflex bifurcation with 2 drug-eluting stents (2.75 x 15 mm [place] into left PLB, 2.25 x 12 mm Mariano into distal circumflex). January 01, 2021 NSTEMI, successful PCI of mid circumflex in the left PLB with x3 Xience drug-eluting stents (2.5 x 18 overlapping proximal aspect of prior stent, 2.5 x 12, 2.25 x 12 extending from distal aspect of prior stent in the left PLB; postdilated with 3.0 NC -- now at total of 5 stents at bifurcation with LPLB/distal circumflex) -Angioplasty into prior distal circumflex stent with 2.0 balloon October 10, 2022 NSTEMI, reocclusion of the previously stented circumflex into posterior lateral branch, status post successful PCI with x 1 MELLY proximally and PTCA throughout the previous stented train. Moderate disease in the LAD unchanged, previously placed RCA stent patent. Note: Given poor myocardial blush on prior study as well as current study in combination with recurrent stent thrombosis I suspect a long-term patency will be limited. There is probably some degree of acute microvascular occlusion from thrombus but also significant myocardial scarring. May 20, 2023 STEMI, Circumflex territory, thrombus of the prior stent train in the left circumflex with involvement of previously untreated large OM1. Successful PCI of the AV groove circumflex into the large trifurcating OM1 with implantation of a large caliber drug-eluting stent. Unsuccessful attempt to reopen the previously placed long stent train in the mid to distal AV groove c ircumflex and a branch of that vessel. August 10, 2023 Coronary angiography without new target for revascularization. Medical management recommended. Attempts were made at fixing mid circumflex at the ostium with OM 1 bifurcation which had an 80% in-stent restenosis. There was also a 95 mm stent restenosis of the distal LPL branch. Attempts at performing plain old balloon angioplasty of the lesion (which had two prior stent layers, advanced disease, no acute angle takeoff of OM1) were unsuccessful. Mid LAD has 50% stenosis Prior Cx stent is patent Nonsustained ventricular tachycardia Mild resting bradycardia Hypertension Dyslipidemia Chronic tobacco use Recurrent pancreatitis GERD Hiatal hernia Gastritis Casanova's esophagitis Anxiety Depression Family History: Mother recently passed with dementia. Father is alive without overt cardiac issues, multiple issues related to agent orange exposure during [place]. Brother and sister are alive without cardiac issues Social History: Smoker, 1 pack/day. No smokeless tobacco use. No alcohol. No illegal/illicit drug use. 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 [employer] Allergies Allergy/AdvReac Type Severity Reaction Status Date / Time isosorbide [From Imdur] AdvReac Severe severe Verified 06/30/24 15:00 migraine Home Medications Medication Instructions Recorded Confirmed Type aspirin 81 mg tablet,delayed 81 mg PO DAILY 06/25/24 08/24/24 History release ezetimibe 10 mg tablet 10 mg PO DAILY 06/25/24 08/24/24 History famotidine 40 mg tablet 40 mg PO HS 06/25/24 08/24/24 History losartan 25 mg tablet 12.5 mg PO DAILY 06/25/24 08/24/24 History magnesium oxide 400 mg (241.3 mg 400 mg PO DAILY 06/25/24 08/24/24 History magnesium) tablet metoprolol succinate 25 mg 25 mg PO BID 06/25/24 08/24/24 History tablet,extended release 24 hr pantoprazole 40 mg tablet,delayed 40 mg PO BID 06/25/24 08/24/24 History release rosuvastatin 40 mg tablet 40 mg PO DAILY 06/25/24 08/24/24 History sertraline 100 mg tablet 100 mg PO DAILY 06/25/24 08/24/24 History ticagrelor 90 mg tablet (Brilinta) 90 mg PO BID 06/25/24 08/24/24 History Patient History Medical History ST elevation myocardial infarction (STEMI) COVID-29 Oct 2021 Mobitz type 2 second degree atrioventricular block Tobacco abuse Splenic infarct Surgical History History of endoscopic retrograde cholangiopancreatography x2 (08/31, 09/30) History of vasectomy Family History Mother Gallbladder disease Sister Gallbladder disease Other Diabetes Stroke Denies family history of Pancreatic disease Social History Smoking Status: Current every day smoker Tobacco Type: Cigarettes Cigarettes Per Day: 1/2 pk per day; Second Hand Exposure: No; Do You Dip or Chew Tobacco: No; Tobacco Cessation Education Requested by Patient: No Hx Alcohol Use: No Hx Substance Use: No Preferred Language: Cantonese Serbian Communication Ability: Effective Mud Analysis Operator Required: No Beliefs That Will Affect Care: None marital status: Single Current Living Situation: Alone current occupational status: employed Other Information That Helps Us Care for You: No Feels Safe at Home: Yes Safety Concerns: Feels Safe At This Time Assistive Devices: None Review of Systems Review of Systems: Complete Review of Systems is as stated above, negative, or noncontributory Physical Exam Physical Exam: General: A&Ox3. NAD. HENT: Normocephalic. Atraumatic. Mouth: Very poor dentition Eyes: PER. Conjunctiva pink, sclera clear. Neck: No carotid bruits. No JVD. Heart: Regular at 60 bpm. No murmur. No rub. Lungs: Clear to auscultation. Abdomen: +BS. + Mid to upper abdominal tenderness. No organomegaly. Extremities: No clubbing, cyanosis, or edema. Limited neurological examination is without focal deficits. Pulses: radial=2/4, posterior tibial=2/4. Results & Data Vital Signs (Past 12 Hours) Vital Signs Temp Pulse Pulse Resp BP Pulse Ox O2 Del Method 08/25/24 07:52 36.5 C 79 19 139/75 96 Room Air 08/25/24 07:28 57 L 08/25/24 03:57 36.4 C L 77 16 129/81 95 Room Air 08/24/24 22:47 36.4 C L 57 L 18 125/69 97 Room Air Laboratory Results Cardiac Enzymes 08/24/24 08/24/24 08/24/24 Range/Units 16:27 18:26 21:10 AST 19 (13-39) U/L Troponin I High Sens 10.4 19.3 D 11.7 D (0-20) pg/ml 08/25/24 Range/Units 00:13 AST (13-39) U/L Troponin I High Sens 11.7 (0-20) pg/ml Coagulation 08/24/24 Range/Units 16:27 PT 10.1 (9.0-12.0) Seconds APTT 27 (21-31) Seconds CBC 08/24/24 Range/Units 16:27 WBC 6.95 (4.8-10.8) K/ul RBC 4.53 L (4.70-6.10) M/uL Hgb 15.1 (14.0-18.0) g/dl Hct 43.2 (42.0-52.0) % Plt Count 250 (130-400) K/uL Neut # (Auto) 3.72 (1.40-6.50) K/uL Lymph # (Auto) 2.41 (1.20-3.40) K/uL Navarro # (Auto) 0.56 (0.11-0.59) K/uL Eos # (Auto) 0.16 (0.00-0.50) K/uL Baso # (Auto) 0.09 (0.00-0.20) K/uL Comprehensive Metabolic Panel 08/24/24 Range/Units 16:27 Sodium 139 (136-145) mmol/L Potassium 4.2 (3.5-5.1) mmol/L Chloride 106 (98-107) mmol/L Carbon Dioxide 26 (21-32) mmol/L BUN 13 (6-23) mg/dl Creatinine 1.48 H (0.6-1.4) mg/dl Glucose 101 H (70-99(Fasting)) mg/dl Calcium 9.9 (8.6-10.3) mg/dl AST 19 (13-39) U/L ALT 15 (7-52) U/L Alkaline Phosphatase 69 (34-104) U/L Total Protein 7.1 (6.0-8.3) gm/dl Albumin 4.4 (3.4-5.0) gm/dl Intake and Output 08/24/24 08/25/24 08/25/24 22:59 06:59 14:59 Intake Total 1000 / 1916.333 917.333 / 7.333 Balance 1000 / 1916.333 917.333 / 1916.333 Intake: IV 1000 / 1916.333 917.333 / 1916.333 Lactated Ringer's 1,000 ml @ 80 917.333 / 917.333 mls/hr IV .[id number] ALYCIA Rx#: [id number] Sodium Chloride 0.9% 1,000 ml @ 1000 / 1000 999 mls/hr IV .Q1H1M ONE Rx#: [id number] Other: Other Intake Source Npo NPO # Unmeasured Voids 1 1 Weight 63.503 kg 62.2 kg Weight Measurement Method Built in Bedscale Built in [facility] Diagnostic Findings Initial EKG revealed sinus rhythm at 62 bpm with sinus arrhythmia, old inferior posterior infarct pattern August 25, 2024 TTE Interpretation Summary ([facility], Dr. Marshall): Normal size left ventricle. Mild concentric LVH. Large size septal, inferior, posterior wall motion abnormality with hypokinesis to akinesis of the segments. Left ventricular ejection fraction 40 to 45%. Trace mitral regurgitation. In comparison to prior study of January 22, 2024, LV systolic function has improved slightly. Telemetry: Sinus/sinus bradycardia, heart rates predominantly in the 50s and 60s. (1) Chest pain Chest pain type: unspecified Qualified Code(s): R07.9 - Chest pain, unspecified
--- NOTE | 2024-08-25 10:16 | Electrocardiogram Report ---
Test Reason : Blood Pressure : */* mmHG Vent. Rate : 62 BPM Atrial Rate : 62 BPM P-R Int : 118 ms QRS Dur : 84 ms QT Int : 366 ms P-R-T Axes : 62 2 27 degrees QTcB Int : 371 ms Normal sinus rhythm with sinus arrhythmia Old Inferior-posterior infarct (cited on or before 20-May-2023) Abnormal ECG When compared with ECG of 30-Jun-2024 11:30, No significant change was found Confirmed by Paul Livingston ([id number]) on 08/25/2024 10:16:12 AM Referred By: Confirmed By: Paul Livingston
--- NOTE | 2024-08-25 11:45 | Hospitalist Progress Note ---
Date of Service August 25, 2024 Assessment & Plan (1) Intestinal ischemia: Plan: Suspected (2) Acute on chronic pancreatitis: (3) Grade II diastolic dysfunction: (4) Barretts esophagus: (5) CAD (coronary artery disease): (6) RADHA (generalized anxiety disorder): (7) Depression: (8) ASCVD (arteriosclerotic cardiovascular disease): Plan Patient presented with multiple symptoms. Patient has been ruled out for acute coronary syndrome. No evidence of non-STEMI Communication with cardiology, echocardiogram has improved. No further cardiac interventions or testing. Recommend continuing his usual medications. Patient's lipase is slightly improved and patient is asking to eat. Will advance diet as tolerated. With patient's other vascular disease, raise concern for possible intestinal ischemia as a cause for his recurrent abdominal pain. Check BMP now, if creatinine improves will proceed with CT angiogram of the abdomen and pelvis. Otherwise will recheck tomorrow and potentially proceed with imaging then. Reviewed previous imaging in outside EMR as well as [facility] EMR. He has had some CTs with IV contrast. No previous mention of significant abdominal vascular disease, does have some aortic plaquing. Continue duel antiplatelet therapy Admission and Anticipated Discharge Date Admission Date: August 24, 2024 Subjective Patient denies any further chest pain. Still some periumbilical discomfort. Physical Exam Physical Exam: Constitutional: Alert, nontoxic HEENT: Mucous membranes moist. Lungs: Clear to auscultation, decreased, no wheezes rales or rhonchi CV: S1-S2, regular Abdomen: Soft, mild periumbilical tenderness, no guarding, no rigidity, no rebound, no distention Extremities: No significant edema Neuro: No focal deficits Psych: Cooperative, normal mood Results & Data Results & Data Vital Signs (Past 12 Hours) Vital Signs Temp Pulse Pulse Resp BP Pulse Ox O2 Del Method 08/25/24 11:32 36.4 C L 59 L 19 125/80 98 Room Air 08/25/24 07:52 36.5 C 79 19 139/75 96 Room Air 08/25/24 07:28 57 L 08/25/24 03:57 36.4 C L 77 16 129/81 95 Room Air Diagnostic Findings Reviewed imaging, laboratory and diagnostic studies. Pertinent findings as below. Lipase 174, Improved
[2024-08-25 12:33] LABS: Calcium 8.6 mg/dl (8.6-10.3); Creatinine Clr Calc Pharmacy 73.5 ml/min; Potassium 3.8 mmol/L (3.5-5.1)
--- NOTE | 2024-08-25 12:49 | Electrocardiogram Report ---
Test Reason : Blood Pressure : */* mmHG Vent. Rate : 49 BPM Atrial Rate : 49 BPM P-R Int : 130 ms QRS Dur : 86 ms QT Int : 404 ms P-R-T Axes : 60 -1 21 degrees QTcB Int : 364 ms Sinus bradycardia Left atrial enlargement Old Inferior-posterior infarct (cited on or before 20-May-2023) Abnormal ECG When compared with ECG of 24-Aug-2024 20:57, No significant change was found Confirmed by Paul Livingston ([id number]) on 08/25/2024 12:49:10 PM Referred By: REFERRED SELF Confirmed By: Paul Livingston
--- OUTSIDE RECORDS SUMMARY | 2024-08-25 13:27 | External Medical Summary | Summary of Care ---
Author Name Unknown Organization [facility] Address [address] [place] [address] Phone [phone] Care Team Providers Care Progress Clerk Name Role Phone Wade Bragg MD Primary Care Provider [phone] Reason for Visit * Reason Onset Date Comments Medication Refill 07/05/2024 Encounter Details Date Type Department Care Team (Late st Contact Info) Description 07/05/2024 Refill Cardiology, [facility] [address] [place] [address] Carmen Hutton PA-C [address] [place] [id number] NSTEMI (non-ST elevation myocardial infarction) (HCC) Allergies Active Allergy Reactions Criticality Noted Date Comments Isosorbide Nitrate 07/30/2023 Severe Mirgrains documented as of this encounter (statuses as of 07/06/2024) Medications Medication Sig Dispensed Refills Start Date End Date Status Dicyclomine HCl 10 MG Oral Capsule (Bentyl) [...] Oral Tablet (Zetia)Indications:C oronary artery disease involving [place] coronary artery of [place] heart without angina pectoris,Dyslipidemi a, goal LDL below 130,Old SD (myocardial infarction) take 1 tablet by mouth [...] Tablet Sublingual (Nitrostat)Indicatio ns:Coronary artery disease involving [place] coronary artery of [place] heart without angina pectoris place 1 tablet [...] Hour (toPROL XL)Indications:Coron clark artery disease involving [place] coronary artery of [place] heart without angina pectoris,Ischemic cardiomyopathy,Dysli pidemia, goal [...] Tablet before bedtime. 10 Tablet 06/28/2024 Active Brilinta 90 MG Oral Tablet (Ticagrelor)Indicati ons:NSTEMI (non-ST elevation myocardial infarction) (HCC) TAKE 1 TABLET BY MOUTH EVERY DAY IN THE MORNING AND BEFORE BEDTIME 60 Tablet 11 07/05/2024 Active documented as of this encounter (statuses as of 07/06/2024) Active Problems Problem Noted Date Diagnosed Date Bradycardia 04/20/2024 Ischemic cardiomyopathy 06/22/2023 NSVT (nonsustained ventricular tachycardia) 06/[address] elevation myocardial infarction (S ANT) 06/22/2023 HFrEF (heart failure with reduced ejection fract ion) 06/22/2023 S/P angioplasty with stent 05/28/2023 Gastroesophageal reflux dise ase with esophagitis without hemorrhage 12/16/2020 Old SD (myocardial infarction) 06/27/2018 Coronary artery disease of n ative artery of [place] heart with stable angina pectoris 06/27/2018 History of acute pancreatitis 06/27/2018 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 Dyslipidemia, goal LDL below 70 09/18/2013 Generalized anxiety disorder 03/09/2013 Tobacco use disorder 01/03/2013 documented as of this encounter (statuses as of 07/06/2024) Resolved Problems Problem Noted Date Diagnosed Date [...] as of this encounter (statuses as of 07/06/2024) Immunizations Name Administration Dates Next Due Hepatitis [...] encounter Miscellaneous Notes * Telephone Encounter - Antoni Lowery LPN - 07/06/2024 1:30 PM EDT Duplicate request. Filled 07/05/24. documented in this encounter Plan of Treatment Upcoming Encounters Date Type Department Care Team (Latest Contact Info) Description 09/14/2024 1:30 PM EST Office Visit Gastroenterology , [facility] [address] [place] [address] Taylor Boyer CRNP [address] [place] [phone] 11/16/2024 1:30 PM EST Office Visit Cardiology, [facility] [address] [place] [address] Herb Tamez, [address] [place] [phone] 11/22/2024 8:00 AM EST Hospital Encounter [facility] [id number] Kike Gross DO [address] [place] [phone] 11/22/2024 8:00 AM EST - 11/22/2024 8:45 AM EST Surgery [facility], Endoscopy [address] [facility] [address] [place] [id number] Kike Gross, DO [address] [place] [address] ESOPHAGOGASTRODUODENOSCOPY (EGD), FLEXIBLE, TRANSORAL, ENDOSCOPIC ULTRASOUND Scheduled Procedures Name Priority Associated Diagnoses Date/Ti [...] Comments DISCUSS TOBACCO CESSATION (REFER TO SMARTSET #[id number]) 1970 Pneumococcal Vaccine: Pediatrics (0 to 5 [...] this encounter Medical Devices Implanted Type Area Manager Field Sales Device Identifier Shelf Expiration Date Model / Serial / Lot Stent Panc Sgl Pigtail [id number] - [id number] Implanted:Qty: 1 on 06/28/2024 by Kike Gross DO at ENDOSCOPY [facility] N/A: Stomach COOK : HARRISON THORNTON 04/12/2026 [id number] / / [id number] documented as of this encounter Visit Diagnoses Diagnosis NSTEMI (non-ST elevation myocardial infarction) (HCC) Acute myocardial infarction, subendocardial infarction, episode of care unspecified Other chronic pancreatitis (HCC) documented in this encounter Advance Directives * Full Code (Latest Code Status on File) Date Activated Date Inactivated Comments 08/14/2022 1:00 AM 08/17/2022 2:38 PM This order r eflects the patients wishes and were consensually agreed upon. Question Answer Comments Discussion of Advance Directives occurred with: Patient Care Teams Progress Clerk Relationship Specialty Start Date End Date Wade Bragg MD [address] [place] [address] PCP - General Family Medicine 03/24/18 documented as of this encounter
--- OUTSIDE RECORDS SUMMARY | 2024-08-25 13:27 | External Medical Summary | Summary of Care ---
Author Name Unknown Organization [facility] Address [address] [facility] [place] [address] Phone [phone] Care Team Providers Care Manager Transfer Name Role Phone Wade Bragg MD Primary Care Provider [phone]- [phone] Reason for Visit * Reason Comments eRx-Medication Refill Encounter Details Date Type Department Care Team (Late st Contact Info) Description 07/03/2024 Refill Cardiology, [facility] [place] [address] [place] [address] Daja Miguel PA-C [address] [place] [address] NSTEMI (non-ST elevation myocardial infarction) ([facility]) Allergies Active Allergy Reactions Criticality Noted Date Comments Isosorbide Nitrate 07/30/2023 Severe Mirgrains documented as of this encounter (statuses as of 07/05/2024) Medications Medication Sig Dispensed Refills Start Date End Date Status Dicyclomine HCl 10 MG Oral Capsule (Bentyl) take 1 capsule by mouth twice a day if needed for abdominal pain 60 Capsule 5 3 Active Additional Information Patient not taking.Reported on 06/22/2024 Sucralfate 1 GM Oral Tablet (Carafate) Take 1 Tablet by mouth 4 times a day before meals and at bedtime. 3 Active Ezetimibe 10 MG Oral Tablet (Zetia)Indications :Coronary artery disease involving [place] coronary artery of [place] heart without angina pectoris,Dyslipide fredy, goal LDL below 130,Old [place] (myocardial infarction) take 1 tablet by mouth every morning 90 Tablet 3 3 Active Additional Information Patient taking differently:10 mg OralHS, (No instructions reported), Reported on 06/22/2024 Pantoprazole Sodium 40 MG Oral Tablet Delayed Release (Protonix) take 1 tablet by mouth every morning 90 Tablet 3 3 Active Additional Information Patient taking differently:40 mg OralBID (.AM/PM), (No instructions reported), Reported on 06/22/2024 Nitroglycerin 0.4 MG Sublingual Tablet Sublingual (Nitrostat)Indicat ions:Coronary artery disease involving [place] coronary artery of [place] heart without angina pectoris place 1 tablet under the tongue if needed every 5 minutes for chest pain for 3 doses IF NO RELIEF AFTER THIRD DOSE CALL 911. 25 Tablet 11 3 Active Additional Information Patient not taking.Reported on 06/22/2024 Magnesium Oxide (Antacid) 400 MG Oral Tablet take 1 tablet by mouth IN THE MORNING 90 Tablet 3 3 Active Additional Information Patient not taking.Reported on 06/28/2024 Sertraline HCl 100 MG Oral Tablet (Zoloft) Take 1 Tablet by mouth in the morning. 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 180 Tablet 3 4 Active Losartan Potassium 25 MG Oral Tablet (Cozaar) Take 0.5 Tablets by mouth daily. 34 Tablet 11 4 Active Ondansetron 4 MG Oral Tablet Disintegrating (Zofran) Place 1 Tablet on tongue every 8 hours as needed for Nausea. dissolve on tongue. 30 Tablet 2 4 Active Ciprofloxacin HCl 500 MG Oral Tablet (Cipro) Take 1 Tablet by mouth in the morning and 1 Tablet before bedtime. 10 Tablet 4 Active Brilinta 90 MG Oral Tablet (Ticagrelor)Indica tions:NSTEMI (non-ST elevation myocardial infarction) (HCC) TAKE 1 TABLET BY MOUTH EVERY DAY IN THE MORNING AND BEFORE BEDTIME 60 Tablet 11 4 Active Brilinta 90 MG Oral TabletIndications: NSTEMI (non-ST elevation myocardial infarction) (HCC) Take 1 Tablet by mouth in the morning and 1 Tablet before bedtime. 180 Tablet 3 3 07/05/20 24 Discontinued documented as of this encounter (statuses as of 07/05/2024) Active Problems Problem Noted Date Diagnosed Date Bradycardia 04/20/2024 Ischemic cardiomyopathy 06/22/2023 NSVT (nonsustained ventricular tachycardia) 06/[address] elevation myocardial infarction (S ANT) 06/22/2023 HFrEF (heart failure with reduced ejection fract ion) 06/22/2023 S/P angioplasty with stent 05/28/2023 Gastroesophageal reflux dise ase with esophagitis without hemorrhage 12/16/2020 Old [place] (myocardial infarction) 06/27/2018 Coronary artery disease of n ative artery of [place] heart with stable angina pectoris 06/27/2018 History of acute pancreatitis 06/27/2018 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 Dyslipidemia, goal LDL below 70 09/18/2013 Generalized anxiety disorder 03/09/2013 Tobacco use disorder 01/03/2013 documented as of this encounter (statuses as of 07/05/2024) Resolved Problems Problem Noted Date Diagnosed Date [...] as of this encounter (statuses as of 07/05/2024) Immunizations Name Administration Dates Next Due Hepatitis [...] encounter Miscellaneous Notes * Telephone Encounter - Daja Miguel PA-C - 07/05/2024 2:22 PM EDT Signed Prescriptions: Disp Refills Brilinta 90 MG Oral Tablet (Ticagrelor) 60 Tab*11 Sig: TAKE 1 TABLET BY MOUTH EVERY DAY IN THE MORNING AND BEFORE BEDTIMEAuthorizing Provider: DAJA MIGUEL- * Telephone Encounter - Michelle Marshall RPh - 07/05/2024 2:10 PM EDTPending Prescriptions: Disp Refills Brilinta 90 MG Oral Tablet (Ticagrelor) 60 Tab*5 Sig: TAKE 1 TABLET BY MOUTH EVERY DAY IN THE MORNING AND BEFORE BEDTIME * Telephone Encounter - Michelle Marshall RPh - 07/05/2024 2:09 PM EDT [facility] is currently not authorized to approve refills for the pended medication(s) per refill protocol. Please approve if appropriate. Thank you, Michelle Marshall, PharmD Clinical Pharmacist [facility] ([facility]) [phone] 07/05/2024, 2:09 PM documented in this encounter Plan of Treatment Upcoming Encounters Date Type Department Care Team (Latest Contact Info) Description 09/14/2024 1:30 PM EST Office Visit Gastroenterology , [facility] [place] [address] [place] [address] Taylor Boyer CRNP [address] [place] [address] 11/16/2024 1:30 PM EST Office Visit Cardiology, [facility] [place] [address] [place] [address] Herb Tamez, DO [address] [place] [address] 11/22/2024 8:00 AM EST Hospital Encounter [facility]O [facility], Endoscopy [address], [place] [phone] Kike Gross, DO [address] [place] [address] 11/22/2024 8:00 AM EST - 11/22/2024 8:45 AM EST Surgery [facility] [phone] Kike Gross, DO [address] [place] [address] ESOPHAGOGASTRODUODENOSCOPY (EGD), FLEXIBLE, TRANSORAL, ENDOSCOPIC ULTRASOUND Scheduled [...] Comments DISCUSS TOBACCO CESSATION (REFER TO SMARTSET #0049) 1969 Pneumococcal Vaccine: Pediatrics (0 to 5 [...] this encounter Medical Devices Implanted Type Area Application Support Developer Device Identifier Shelf Expiration Date Model / Serial / Lot Stent Panc Sgl Pigtail [id number] - [id number] Implanted:Qty: 1 on 06/28/2024 by Kike Gross DO at ENDOSCOPY [facility] N/A: Stomach COOK : HARRISON THORNTON 04/12/2026 [id number] / / [id number] documented as of this encounter Visit Diagnoses [...] Advance Directives occurred with: Patient Care Teams Manager Transfer Relationship Specialty Start Date End Date Wade Bragg MD [address] [place] [address] PCP - General Family Medicine 03/24/18 documented as of this encounter
--- OUTSIDE RECORDS SUMMARY | 2024-08-25 13:27 | External Medical Summary | Summary of Care ---
Author Name Unknown Organization [facility] Address [address] [place] [address] Phone [phone] Care Team Providers Care Enamel Burner Name Role Phone Wade Bragg MD Primary Care Provider [phone]- [phone] Reason for Visit * Reason Onset Date Comments Hospital Follow-Up 07/03/2024 Jacqu[facility] for [facility] Encounter Details Date Type Department Care Team (Late st Contact Info) Description 07/03/2024 Telephone Ancillary Department, [facility] [address] [place], [place] [id number] Zenia Ayers, DOMINGUE[place] Hospital Follow-Up ([facility] for [facility]) Allergies Active Allergy Reactions Criticality Noted Date [...] Oral Tablet (Zetia)Indications :Coronary artery disease involving [place] coronary artery of [place] heart without angina pectoris,Dyslipide fredy, goal LDL below 130,Old [place] (myocardial infarction) take 1 tablet by mouth [...] Tablet Sublingual (Nitrostat)Indicat ions:Coronary artery disease involving [place] coronary artery of [place] heart without angina pectoris place 1 tablet [...] Hour (toPROL XL)Indications:Cor onary artery disease involving [place] coronary artery of [place] heart without angina pectoris,Ischemic cardiomyopathy,Dys lipidemia, goal [...] Tablet 4 Active Brilinta 90 MG Oral TabletIndications: [...] ase with esophagitis without hemorrhage 12/16/2020 Old [place] (myocardial infarction) 06/27/2018 Coronary artery disease of n ative artery of [place] heart with stable angina pectoris 06/27/2018 History [...] encounter Miscellaneous Notes * Telephone Encounter - Zenia Ayers RN - 07/06/2024 12:54 PM EDT MYG read Last read by Oc Cazares at 4:37 PM on 07/04/2024. * Telephone Encounter - Zenia Ayers RN - 07/04/2024 4:18 PM EDT Transitions of Care Note Reason for Referral:Recent Admission Phone visit for follow up: jacquelin Admitted to: [facility], Date: 06.30.24 Discharged to: home, Date: 07.02.24 Diagnosis driving hospitalization: Acute on chronic pancreatitis Possible post ERCP pancreatitisAttempted Phone Call Second Attempt Call Outcome myG message sent to patient. * Telephone Encounter - Zenia Ayers RN - 07/03/2024 2:54 PM EDT Transitions of Care Note Reason for Referral:Recent Admission Phone visit for follow up: jacquelin Admitted to: [facility], Date: 06.30.24 Discharged to: home, Date: 07.02.24 Diagnosis driving hospitalization: Acute on chronic pancreatitis Possible post ERCP pancreatitis New med per hospital discharge oxycodone 5 mg tablet 5 mg PO BID PRN (Reason: pain (scale score 7-10)) Qty: 6 0RF Per hospital follow up Patient to Follow-up with your primary care physician within a week time and likely you will need labs CBC/CMP/magnesium/phosphorus. Continue with soft diet for next few days before you transition to your regular consistency diet. Finish the course of your ciprofloxacin as prescribed by your GI physician as an outpatient. Follow-up with your GI physician in 2 to 4 months time upon discharge. Attempted Phone Call First Attempt Call Outcome Left Voicemail/Message Zenia Ayers RN documented in this encounter Plan of Treatment Upcoming Encounters Date Type Department Care Team (Latest Contact Info) Description 09/14/2024 1:30 PM EST Office Visit Gastroenterology , [facility] [address] [place] [address] Taylor Boyer CRNP [address] [place] [address] 11/16/2024 1:30 PM EST Office Visit Cardiology, [facility] [address] [place] [address] Herb Tamez, [address] [place] [address] 11/22/2024 8:00 AM EST Hospital Encounter [facility], Endoscopy [address] [phone] Kike Gross, DO [address] [place], [place] [address] 11/22/2024 8:00 AM EST - 11/22/2024 8:45 AM EST Surgery [facility], Endoscopy [address] [phone] Kike Gross, DO [address] [place] [address] ESOPHAGOGASTRODUODENOSCOPY (EGD), FLEXIBLE, TRANSORAL, ENDOSCOPIC ULTRASOUND Scheduled Procedures Name Priority Associated Diagnoses Date/Ti ne ESOPHAGOGASTRODUODENOSCOPY ( EGD), FLEXIBLE, TRANSORAL, ENDOSCOPIC ULTRASOUND Other chronic pancreatitis (HCC) 11/22/2024 8:00 AM EST ENDOSCOPIC RETROGRADE CHOLANGIOPANCREATOGRAPHY (ERCP) DIAGNOSTIC Other chronic pancreatitis (HCC) 11/22/2024 8:00 AM EST ESOPHAGOGASTRODUODENOSCOPY ( EGD), FLEXIBLE, TRANSORAL, DIAGNOSTIC Recall 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 COLONOSCOPY FLEXIBLE PROXIMA L DIAGNOSTIC Recall History of colonic polyps Health Maintenance Due Date Last Done Comments DISCUSS TOBACCO CESSATION (REFER TO SMARTSET #4069) 1970 Pneumococcal Vaccine: Pediatrics (0 to 5 Years) and At-Risk Patients (6 to 64 Years) (1 of 2 - PCV) 1975 Hepatitis C Screening 1987 Cologuard 2014 Fecal Occult Blood Test 2014 Sigmoidoscopy 2014 Zoster Vaccines (1 of 2) 2019 DTap/Tdap Vaccines (2 - Td or Tdap) 12/21/2022 12/21/2012 Depression Screening 02/16/2024 02/15/2023, 05/31/20 17 COVID-19 Vaccine ( - season) 2024 Influenza Vaccine (FLU shot) [...] this encounter Medical Devices Implanted Type Area Hostess Device Identifier Shelf Expiration Date Model / Serial / Lot Stent Panc Sgl Pigtail [id number] - [id number] Implanted:Qty: 1 on 06/28/2024 by Kike Gross DO at ENDOSCOPY [facility] N/A: Stomach NORBERTO : HARRISON THORNTON 04/12/2026 [id number] / / [id number] documented as of this encounter Advance Directives * Full Code (Latest Code Status on File) Date Activated Date Inactivated Comments 08/14/2022 1:00 AM 08/17/2022 2:38 PM This order r eflects the patients wishes and were consensually agreed upon. Question Answer Comments Discussion of Advance Directives occurred with: Patient Care Teams Enamel Burner Relationship Specialty Start Date End Date Wade Bragg MD [address] [place] [address] PCP - General Family Medicine 03/24/18 documented as of this encounter
--- OUTSIDE RECORDS SUMMARY | 2024-08-25 13:27 | External Medical Summary | Summary of Care ---
Author Name Unknown Organization [facility] Address [address] [facility] [place] [address] Phone [phone] Care Team Providers Care Wreath Maker Name Role Phone Wade Bragg MD Primary Care Provider [phone]- [phone] Reason for Visit * Reason Comments Follow Up Per pt here to f/u p ancreatitis. EGD/EUS/ERCP 06/28/24. Pt states he is doing well. Mild abd pain today rated 2. Pt having issues getting pain management appt. Encounter Details Date Type Department Care Team (Late st Contact Info) Description 08/09/2024 2:30 PM EDT Office Visit Gastroenterology, 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 Allergies Active Allergy Reactions Criticality Noted Date Comments Isosorbide Nitrate 07/30/2023 Severe Mirgrains documented as of this encounter (statuses as of 08/09/2024) Medications Medication Sig Dispensed Refills Start Date [...] Oral Tablet (Zetia)Indications:C oronary artery disease involving hamilton coronary artery of hamilton heart without angina pectoris,Dyslipidemi a, goal LDL below 130,Old [place] (myocardial infarction) take 1 tablet by mouth [...] Tablet Sublingual (Nitrostat)Indicatio ns:Coronary artery disease involving hamilton coronary artery of hamilton heart without angina pectoris place 1 tablet [...] Hour (toPROL XL)Indications:Coron clark artery disease involving hamilton coronary artery of hamilton heart without angina pectoris,Ischemic cardiomyopathy,Dysli pidemia, goal [...] Tablet before bedtime. 10 Tablet 06/28/2024 Active Additional Information Patient not taking.Reported on 08/09/2024 Brilinta 90 MG Oral Tablet (Ticagrelor)Indicati ons:NSTEMI (non-ST elevation myocardial infarction) (HCC) TAKE 1 TABLET BY MOUTH EVERY DAY IN THE MORNING AND BEFORE BEDTIME 60 Tablet 11 07/05/2024 Active documented as of this encounter (statuses as of 08/09/2024) Active Problems Problem Noted Date Diagnosed Date Bradycardia 04/20/2024 Ischemic cardiomyopathy 06/22/2023 NSVT (nonsustained ventricular tachycardia) 06/[address] elevation myocardial infarction (S ANT) 06/22/2023 HFrEF (heart failure with reduced ejection fract ion) 06/22/2023 S/P angioplasty with stent 05/28/2023 Gastroesophageal reflux dise ase with esophagitis without hemorrhage 12/16/2020 Old [place] (myocardial infarction) 06/27/2018 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 06/27/2018 History of acute pancreatitis 06/27/2018 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 Dyslipidemia, goal LDL below 70 09/18/2013 Generalized anxiety disorder 03/09/2013 Tobacco use disorder 01/03/2013 documented as of this encounter (statuses as of 08/09/2024) Resolved Problems Problem Noted Date Diagnosed Date [...] as of this encounter (statuses as of 08/09/2024) Immunizations Name Administration Dates Next Due Hepatitis [...] Sign Reading Time Taken Comments Blood Pressure 126/82 08/09/2024 2:26 PM EDT Pulse 95 08/09/2024 2:26 PM EDT Temperature 36.1 C (97 F) 08/09/2024 2:26 PM EDT Respiratory Rate - - Oxygen Saturation - - Inhaled Oxygen Concentration - - Weight 57.2 kg (126 lb) 08/09/2024 2:26 PM EDT Height - - Body Mass Index 20.97 06/28/2024 9:02 AM EDT documented in this encounter Progress Notes * Taylor Boyer CRNP - 08/09/2024 2:38 PM EDT DATE OF SERVICE: 08/09/24 REFERRING PHYSICIAN: Wade Bragg MD CC: Follow up 08/09/24: Patient had EGD, EUS and ERCP in June, pancreatic stent placement for treatment of chronic pancreatitis. Right after the procedure he had acute abdominal pain and went to [facility], CT showed pancreatitis but no perforation or obstruction. He states however that after the episode, he overall has improvement on his abdominal pain symptoms. He was previously taking Tylenol 500 mg up to 10tablets a day, in the last few weeks he average about 4 tablets a day. No nausea, vomiting. He is still smokes. Stools are loose, no rectal bleeding or oily stools. 04/26/24 He was re-admitted at [facility] in March and April 2024 for pancreatitis. Had EGD while admitted as there was concern for duodenal ulcer but this was not found. Lipase 132. He is still having upperabd pain, nausea, no vomiting. Only tolerating CL diet. Taking Tylenol for abd pain, feels Dicyclomine isn't helpful. States Oxycodone at hospital helps w pain most. Stools are loose but no oily/fatty stools. 01/07/23: Pt admitted at [facility] 07/2022 and 08/2022 w pancreatitis episode. No choledocholithiasis atthat time. He then had NSTEMI in September 2022, underwent diagnostic cardiac catheterization, notedto have occluded previously stented circumflex lesion, treated with 1 drug-eluting stent. His currently on Brilinta and aspirin. His follow-up EUS and ERCP had been rescheduled till May.. Patient reports that in the last few weeks he is noticing some mild upper abdominal pain currently at level 1/10. Denies any nausea or vomiting, fevers or chills. He denies any jaundice. Bowels are moving well without rectal bleeding. He is tolerating p.o. intake well. Office Visit 01/31/2021 : [place] in [place] had repeat cardiac cath, stents placed. To see cardiology nextmonth. From GI standpoint remains on PPI, Pepcid and Bentyl. Constant, chronic GERD. Intermittent epigastric pain. Everyday heartburn. No nausea, vomiting. Bowels okay - no diarrhea/constipation. No black or bloody stools. No fever, chills, CP, SOB. Office Visit 12/23/2020 : was at [facility] three weeks ago for epigastric pain. Ruled out cardiac cause. Took GI cocktail and resolved. Has been on PPI BID as well. He notes this has helped some but symptomsnot fully resolved. He notes daily GERD symptoms. Everything causes heartburn. He states even drinking water. Typically worse at night. Cannot lay flat at all. Sleeps propped up in bed. Still gets reflux/reguigtaiton. No vomiting. No hoarseness. Sore throats. Appetite good. Bowels okay. No black orbloody stools. No fever, chills, CP, SOB. Office Visit 04/01/2020 :49 year old male with history of anxiety/depression, Barretts on Omeprazolereferred to GI for evaluation of GERD and barretts at the request of Dr. Bragg. Pt was seen and evaluated, chart reviewed. Of note, recent admission to [facility] 03/11 w/ splenic infarct. Was evaluatedby hospitalist, general surgery and DC home the following day w/o any medication changes. He suggests he has had intermittent abdominal pain for about 5/6 years. Pain is always left lower abdomen w/ radiation to his left back. Intermittent. Not associated with any activities or specific triggers. Occurs 1-2 times a week. Has been admitted 3/4 times numerous hospital for the pain. With the pain hewill have nausea, vomiting, GERD. He has bad GERD despite PPI 40 mg daily. Burning, regurgitation. No change in bowels when the pain occurs. Does feel more full and distended when the pain occurs. Hehas chronic looser, stools. Suggests 2/3 times daily. No watery stools. Brown stools or dark brown.No black or bloody stools. Weight stable. No fever, chills, CP, SOB. NSAIDs: ASA daily, Aleve1 tablet every 1/2 weeks ETOH: none x 3 years Caffeine: soda daily Steroids: none ABX: none Tobacco: 1 PPD ABD US 2019: No calcified gallstone or evidence of acute cholecystitis. CTAP 2019: No evidence of bowel obstruction. No evidence of free airNormal appendix. No evidence ofacute diverticulitis Linear/triangular hypodense defect within the spleen. This was not visualized the prior study. There is no perisplenic fluid, and no perisplenic fat infiltration. The findings are suggestive of the sequela of a prior splenic infarct MRI abd 2022:No acute pancreatitis at this time. No peripancreatic edema or fluid collections. Cholecystectomy. Pneumobilia is unchanged. No biliary obstruction. No choledocholithiasis appreciated. CT abd/pelvis ([facility]) 03/28/2024:Wall thickening and surrounding inflammation of the duodenum, correlate for duodenal ulcer disease. Need for upper GI endoscopy should be determined clinically. EGD 2016: Esophageal mucosal changes classified as Casanova's stage C2-M3 per [place] criteria. Biopsied. Medium-sized hiatal hernia. Gastritis. Biopsied.Normal examined duodenum. EGD 2019: Normal upper third of esophagus and middle third of esophagus. - Esophageal mucosal changes secondary to established short-segment Casanova's disease, classified as Casanova's stage C2-M3 per [place] criteria. Biopsied. - Medium-sized hiatal hernia. - Normal gastric fundus and gastric body. - Gastritis. Biopsied. - Normal examined duodenum. Colonoscopy 2019: The patient will be observed post-procedure, until all discharge criteria are met. - Advance diet as tolerated today. - Await pathology results. - Try Bentyl (dicyclomine) 10 mg PO BID 30 min AC for 6 weeks. EGD/EUS/ERCP in 2020 - gastritis, duodenitis, choledocholithiasis w biliary sphincterectomy, pancreas and biliary stent placements. EGD 03/30/2024: - Z-line irregular, 32 cm from the incisors. - Normal esophagus. - 3 cm hiatal hernia. - Erythematous mucosa in the gastric body. Biopsied. - Otherwise the stomach was normal. Biopsies from the gastric antrum were obtained for Helicobacter pylori and for histology. - Normal examined duodenum. A. Stomach, antrum, biopsy: - Mild chronic gastritis. - Helicobacter pylori immunohistochemistry stain: Negative. B. Stomach, body, biopsy: - Gastric mucosa with minimal chronic inflammation Family history of GI malignancy: none Past Medical History: Diagnosis Date Abdominal pain Anxiety 2011 Casanova esophagus 2015 Depression 2011 1 week in [facility], was on Zoloft Dyslipidemia, goal LDL below 130 INFORMATION 07/2014 10 year risk 19% INFORMATION 09/2015 10 year cardiovascular risk of 21% INFORMATION 05/2017 10 year cardiovascular risk 18.5% Pancreatitis Family History Problem Relation Name Age of Onset Cancer None Diabetes Mother Hypertension Father Heart Disorder None Stroke Mother Mental Disorder Grandmother (Maternal) Past Surgical History: Procedure Laterality Date COLONOSCOPY, DIAGNOSTIC (RECTUM) 05/06/2020 internal hemorrhoids/biopsies show adenomatous polyps/recall 5 years/COLONOSCOPY FLEXIBLE PROXIMAL DIAGNOSTIC performed by Kike Gross DO at ENDOSCOPY [facility] CORONARY ANGIOGRAPHY W/LEFT HEART CATH N/A 08/10/2023 CORONARY ANGIOGRAPHY W/LEFT HEART CATH performed by Pat Monroy MD at [facility] EGD, FLEXIBLE, DIAGNOSTIC 12/25/2016 Barretts, repeat 3 yrs/ESOPHAGOGASTRODUODENOSCOPY (EGD), FLEXIBLE, TRANSORAL, DIAGNOSTIC performed by Kike Gross DO at ENDOSCOPY [facility] EGD, FLEXIBLE, DIAGNOSTIC 05/06/2020 medium sized hiatal hernia/gastritis/biopsies confirm barretts/recall 3 years/ESOPHAGOGASTRODUODENOSCOPY (EGD), FLEXIBLE, TRANSORAL, DIAGNOSTIC performed by Kike Gross DO at ENDOSCOPY [facility] EGD, FLEXIBLE, DIAGNOSTIC N/A 08/22/2021 [facility], EGD, Esophageal mucosal changes suspicious for Casanova's esopahgaus state C4-M5, gastritis, duodentitis / biopsies evid of infection know as Casanova's esophagitis/ 1 year recall EGD, FLEXIBLE, DIAGNOSTIC 09/23/2021 Barretts, pancreatic stent removed, repeat 3 yrs / [facility] EGD, W/ENDOSCOPIC US 10/18/2015 Barretts, repeat 1 yr/[facility] EGD, W/ENDOSCOPIC US 06/28/2024 dilation entire main bile duct/HH/biopsies show Casanova's esophagitis/recall 3 years/ESOPHAGOGASTRODUODENOSCOPY (EGD), FLEXIBLE, TRANSORAL, ENDOSCOPIC ULTRASOUND performed by Kike Gross DO at ENDOSCOPY [facility] ERCP N/A 08/22/2021 [facility], ERCP, major papilla located partially within diverticulum, Choledocholithiasis found, 1 biliary stent placed / no specimens collected / repeat in 6 week to remove stent ERCP 09/23/2021 Choledocholithiasis / [facility] ERCP, DIAGNOSTIC, SPECIMEN COLLECTION 06/28/2024 biliary sludge/pancreatitis/one pancreatic stent placed ventral pancreatic duct/ENDOSCOPIC RETROGRADE CHOLANGIOPANCREATOGRAPHY (ERCP) DIAGNOSTIC performed by Kike Gross DO at ENDOSCOPY [facility] US ENDOSCOPIC N/A 08/22/2021 [facility], EUS dilation common bile duct up to 7mm, 1 stone in common bile duct, many stones in gallbladder, Pancreatic parenchymal abnormalitis, 1 benign lymph node in annie hepatis region / no specimenscollected / VASECTOMY 02/23/2003 Social History Tobacco Use Smoking status: Every Day Current packs/day: 0.25 Average packs/day: 0.3 packs/day for 31.0 years (7.8 ttl pk-yrs) Types: Cigarettes Passive exposure: Current Smokeless tobacco: Never Tobacco comments: 2-3 cig/day as of 12/23/20 Vaping Use Vaping status: Never Used Substance Use Topics Alcohol use: Not Currently Comment: last 2015 Drug use: No Comment: pepsi- 6 pack per day Review of patient's allergies indicates: Allergen Reactions Imdur [Isosorbide Nitrate] Severe Mirgrains Current Outpatient Medications Medication Sig Dispense Refill Ezetimibe 10 MG Oral Tablet (Zetia) take 1 tablet by mouth every morning (Patient taking differently: Take 1 Tablet by mouth at bedtime.) 90 Tablet 3 Pantoprazole Sodium 40 MG Oral Tablet Delayed Release (Protonix) take 1 tablet by mouth every morning (Patient taking differently: Take 1 Tablet by mouth in the morning and 1 Tablet before bedtime.) 90 Tablet 3 Sertraline HCl 100 MG Oral Tablet (Zoloft) Take 1 Tablet by mouth in the morning. 90 Tablet 3 Rosuvastatin Calcium 40 MG Oral Tablet (Crestor) TAKE 1 TABLET BY MOUTH EVERY MORNING 90 Tablet 3 Famotidine 40 MG Oral Tablet (Pepcid) take 1 tablet by mouth BEFORE BEDTIME 90 Tablet 2 Aspirin 81 MG Oral Tablet Delayed Release [...] Tablets by mouth daily. 34 Tablet 11 Brilinta 90 MG Oral Tablet (Ticagrelor) TAKE 1 TABLET BY MOUTH EVERY DAY IN THE MORNING AND BEFORE BEDTIME 60 Tablet 11 Dicyclomine HCl 10 MG Oral Capsule (Bentyl) take 1 capsule by mouth twice a day if needed for abdominal pain (Patient not taking: Reported on 06/22/2024) 60 Capsule 5 Sucralfate 1 GM Oral Tablet (Carafate) Take 1 Tablet by mouth 4 times a day before meals and at bedtime. (Patient not taking: Reported on 08/09/2024) Nitroglycerin 0.4 MG Sublingual Tablet Sublingual (Nitrostat) place 1 tablet under the tongue if needed every 5 minutes for chest pain for 3 doses IF NO RELIEF AFTER THIRD DOSE CALL 911. (Patient nottaking: Reported on 06/22/2024) 25 Tablet 11 Magnesium Oxide (Antacid) 400 MG Oral Tablet take 1 tablet by mouth IN THE MORNING (Patient not taking: Reported on 06/28/2024) 90 Tablet 3 Ondansetron 4 MG Oral Tablet Disintegrating (Zofran) Place 1 Tablet on tongue every 8 hours as needed for Nausea. dissolve on tongue. 30 Tablet 2 Ciprofloxacin HCl 500 MG Oral Tablet (Cipro) Take 1 Tablet by mouth in the morning and 1 Tablet before bedtime. (Patient not taking: Reported on 08/09/2024) 10 Tablet 0 No current facility-administered medications for this visit. REVIEW OF SYSTEMS: See HPI above, rest of systems reviewed negative. EXAM: BP 126/82 | Pulse 95 | Temp 36.1 C (97 F) | Wt 57.2 kg (126 lb) | BMI 20.97 kg/m | BSA 1.62 m GENERAL: Well developed and well nourished in no acute distress. SKIN: No rashes, ulcers, jaundice HEENT: Normocephalic, sclera clear NECK: Supple, trachea midline, no JVD. LUNGS: Clear to auscultation bilaterally, no respiratory distress or accessory muscles used. HEART: Regular rate & rhythm, no murmurs and no gallops. ABDOMEN: Normal bowel sounds, soft and nontender, no masses or hepatosplenomegaly. EXTREMITIES: No palmar erythema, no ankle edema, no skin discoloration, no clubbing, no cyanosis. NEURO: No lateralizing findings. Sensory/Motor grossly normal. ASSESSMENT AND PLAN: 53 year old male with hx of Barretts esophagus, recurrent pancreatitis s/p biliary sphincterectomy, biliary and pancreas stent placements. NSTEMI in September 2022 treated w drug eluting stent, on Brilinta and ASA. + chronic abd pain but improved after last ERCP intervention with pancreatic stent placement in June. He is still interested to be established in a chronic pain management clinic. - Repeat EUS/ERCP scheduled on 11/22/2024. - Continue Pantoprazole 40mg daily + Famotidine 40mg daily - Check IgG4 to r/o autoimmune pancreatitis (normal) - Low fat diet - Advised to avoid ETOH, quit tobacco uses (pt refuses) - Check pancreas elastase stool, if low, will start pancreatic enzyme to help w diarrhea. I spent a total of 30 minutes on the date of service in review of patient's record, and previously obtained information in person and appropriate medical visit, discussion and education of plan, withpatient and/or caregiver, placing orders for tests/referral/procedures as medically necessary and documentation of pertinent clinical information in patient's medical records for their visit today. RETURN TO CLINIC: 3 months HAKAN Gillis documented in this encounter Nursing Notes * Jennifer Arevalo CMA - 08/09/2024 2:26 PM EDT Chief Complaint Patient presents with Follow Up Per pt here to f/u pancreatitis. EGD/EUS/ERCP 06/28/24. Pt states he is doing well. Mild abd pain today rated 2. Pt having issues getting pain management appt. documented in this encounter Plan of Treatment Upcoming Encounters Date Type Department Care Team (Latest Contact Info) Description 11/22/2024 8:00 AM EST Hospital Encounter ENDO [facility], Endoscopy [address], [place] [id number] Kike Gross, DO [address] [place] [id number] 11/22/2024 8:00 AM EST - 11/22/2024 8:45 AM EST Surgery ENDO [facility], Endoscopy [address], [place] [address] Kike Gross, [address] [place] [address] ESOPHAGOGASTRODUODENOSCOPY (EGD), FLEXIBLE, TRANSORAL, ENDOSCOPIC ULTRASOUND 12/08/2024 1:00 PM EST Office Visit Gastroenterology , [facility] [address] [place] [address] Taylor Boyer CRNP [address] [place] [address] Scheduled Orders Name Type Priority Associated Diagnoses Orde r Schedule PANCREATIC ELASTASE-1 Lab Routine Chronic pancreatitis, unspecified pancreatitis type (HCC) Expected: 08/09/2024, Expires: 08/09/2025 Scheduled Procedures Name Priority Associated Diagnoses Date/Ti [...] Comments DISCUSS TOBACCO CESSATION (REFER TO SMARTSET #[id number]) 1970 Pneumococcal Vaccine: Pediatrics (0 to 5 [...] this encounter Medical Devices Implanted Type Area Synthetic Soil Blocks Pulper Device Identifier Shelf Expiration Date Model / Serial / Lot Stent Panc Sgl Pigtail [id number] - [id number] Implanted:Qty: 1 on 06/28/2024 by Kike Gross DO at ENDOSCOPY [facility] N/A: Stomach NORBERTO : HARRISON THORNTON 04/12/2026 [id number] / / [id number] documented as of this encounter Visit Diagnoses Diagnosis Chronic pancreatitis, unspecified pancreatitis type (HCC)- Primary 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 Question Answer Comments Discussion of Advance Directives occurred with: Patient Care Teams Wreath Maker Relationship Specialty Start Date End Date Wade Bragg MD [address], [place] [id number] PCP - General Family Medicine 03/24/18 documented as of this encounter"
--- OUTSIDE RECORDS SUMMARY | 2024-08-25 13:27 | External Medical Summary | Summary of Care ---
Author Name Unknown Organization [facility] Address [address] [facility] [place] [address] Phone [phone] Care Team Providers Care Pipe Fitter Name Role Phone Wade Bragg MD Primary Care Provider [phone]- [phone] Reason for Visit * Reason Onset Date Comments Other 07/03/2024 Encounter Details Date Type Department Care Team (Late st Contact Info) Description 07/03/2024 Telephone Gastroenterology, [facility] [address] [place] [address] Kike Gross, [address] [place] [id number] Other Allergies Active Allergy Reactions Criticality Noted Date Comments Isosorbide Nitrate 07/30/2023 Severe Mirgrains documented as of this encounter (statuses as of 07/03/2024) Medications Medication Sig Dispensed Refills Start Date [...] Oral Tablet (Zetia)Indications:C oronary artery disease involving [place] coronary artery of black[place] heart without angina pectoris,Dyslipidemi a, goal LDL below 130,[place] (myocardial infarction) take 1 tablet by mouth [...] Tablet Sublingual (Nitrostat)Indicatio ns:Coronary artery disease involving [place] coronary artery of blackfeet heart without angina pectoris place 1 tablet [...] Hour (toPROL XL)Indications:Coron clark artery disease involving [place] coronary artery of blackfeet heart without angina pectoris,Ischemic cardiomyopathy,Dysli pidemia, goal [...] as of this encounter (statuses as of 07/03/2024) Active Problems Problem Noted Date Diagnosed Date Bradycardia 04/20/2024 Ischemic cardiomyopathy 06/22/2023 NSVT (nonsustained ventricular tachycardia) 06/[address] elevation myocardial infarction (S ANT) 06/22/2023 HFrEF (heart failure with reduced ejection fract ion) 06/22/2023 S/P angioplasty with stent 05/28/2023 Gastroesophageal reflux dise ase with esophagitis without hemorrhage 12/16/2020 [place] (myocardial infarction) 06/27/2018 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 * Telephone Encounter - Kike Gross DO - 07/03/2024 9:25 AM EDT Thank you for the update For the patient's follow up procedure I would suggest we do it at hospital-based Center, [facility] would be ideal * Telephone Encounter - Jannet Quach OSA - 07/03/2024 9:07 AM EDT CHRISTIANNE Received message 06/30/24 that pt was admitted to [facility] room 377 bed 1 for Pancreatitis. Please advise NAKIA Martinez 07/03/2024 9:08 AM documented in this encounter Plan of Treatment Upcoming Encounters Date Type Department Care Team (Latest Contact Info) Description 09/14/2024 1:30 PM EST Office Visit Gastroenterology , [facility] [address] [place] [address] Taylor Boyer CRNP [address] [place] [address] 11/16/2024 1:30 PM EST Office Visit Cardiology, [facility] [address] [place] [address] Herb Tamez, DO [address] [place], [place] [address] 11/22/2024 8:00 AM EST Hospital Encounter [facility]O [facility], Endoscopy [address] [place] [phone] Kike Gross, DO [address] [place] [address] 11/22/2024 8:00 AM EST - 11/22/2024 8:45 AM EST Surgery [facility], Endoscopy [address] [place] [phone] Kike Gross, DO [address] [place] [address] ESOPHAGOGASTRODUODENOSCOPY (EGD), FLEXIBLE, TRANSORAL, ENDOSCOPIC ULTRASOUND Scheduled Procedures Name Priority Associated Diagnoses Date/Ti ma ESOPHAGOGASTRODUODENOSCOPY ( EGD), FLEXIBLE, TRANSORAL, ENDOSCOPIC ULTRASOUND Other chronic pancreatitis (HCC) 11/22/2024 8:00 AM EST ENDOSCOPIC RETROGRADE CHOLANGIOPANCREATOGRAPHY (ERCP) DIAGNOSTIC Other chronic pancreatitis (HCC) 11/22/2024 8:00 AM EST ESOPHAGOGASTRODUODENOSCOPY ( EGD), FLEXIBLE, TRANSORAL, DIAGNOSTIC Recall 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 COLONOSCOPY FLEXIBLE PROXIMA L DIAGNOSTIC Recall History of colonic polyps Health Maintenance Due Date Last Done Comments DISCUSS TOBACCO CESSATION (REFER TO SMARTSET #6717) 1969 Pneumococcal Vaccine: Pediatrics (0 to 5 Years) and At-Risk Patients (6 to 64 Years) (1 of 2 - PCV) 1975 Hepatitis C Screening 1987 Cologuard 2014 Fecal Occult Blood Test 2014 Sigmoidoscopy 2014 Zoster Vaccines (1 of 2) 2019 DTap/Tdap Vaccines (2 - Td or Tdap) 12/21/2022 12/21/2012 Depression Screening 02/16/2024 02/15/2023, 05/31/20 17 COVID-19 Vaccine ( season) 2024 Influenza Vaccine (FLU shot) (#1) [...] this encounter Medical Devices Implanted Type Area Book Cutter Device Identifier Shelf Expiration Date Model / Serial / Lot Stent Panc Sgl Pigtail [id number] - [id number] Implanted:Qty: 1 on 06/28/2024 by Kike Gross DO at ENDOSCOPY [facility] N/A: Stomach COOK : HARRISON THORNTON 04/12/2026 [id number] / / [id number] documented as of this encounter Advance Directives * Full Code (Latest Code Status on File) Date Activated Date Inactivated Comments 08/14/2022 1:00 AM 08/17/2022 2:38 PM This order r eflects the patients wishes and were consensually agreed upon. Question Answer Comments Discussion of Advance Directives occurred with: Patient Care Teams Pipe Fitter Relationship Specialty Start Date End Date Wade Bragg MD [address] [place], [place] [id number] PCP - General Family Medicine 03/24/18 documented as of this encounter
--- OUTSIDE RECORDS SUMMARY | 2024-08-25 13:27 | External Medical Summary | Summary of Care ---
Author Name Unknown Organization [facility] Address [address] [facility] [place] [address] Phone [phone] Care Team Providers Care Settlement Clerk Name Role Phone Wade Bragg MD Primary Care Provider [phone]- [phone] Reason for Visit * Reason Onset Date Comments Other 07/03/2024 Encounter Details Date Type Department Care Team (Late st Contact Info) Description 07/03/2024 Telephone Gastroenterology, [facility] [address] [place] [address] Kike Gross, [address] [place] [address] Other Allergies Active Allergy Reactions Criticality Noted [...] Oral Tablet (Zetia)Indications:C oronary artery disease involving [place] coronary artery of [place] heart without angina pectoris,Dyslipidemi a, goal LDL below 130,[place] (myocardial infarction) take 1 tablet by mouth [...] Tablet Sublingual (Nitrostat)Indicatio ns:Coronary artery disease involving [place] coronary artery of [place] heart without angina pectoris place 1 tablet [...] Hour (toPROL XL)Indications:Coron clark artery disease involving [place] coronary artery of [place] heart without angina pectoris,Ischemic cardiomyopathy,Dysli pidemia, goal [...] ase with esophagitis without hemorrhage 12/16/2020 [place] (myocardial infarction) 06/27/2018 Coronary artery disease of n ative artery of [place] heart with stable angina pectoris 06/27/2018 History [...] encounter Miscellaneous Notes * Telephone Encounter - Jannet Quach OSA - 07/03/2024 9:07 AM EDT FYI Received message 06/30/24 that pt was admitted to [facility] room 377 bed 1 for Pancreatitis. Please advise NAKIA Martinez 07/03/2024 9:08 AM documented in this encounter Plan of Treatment Upcoming Encounters Date Type Department Care Team (Latest Contact Info) Description 09/14/2024 1:30 PM EST Office Visit Gastroenterology , [facility] [address] [place] [address] Taylor Boyer CRNP [address] [place] [address] 11/16/2024 1:30 PM EST Office Visit Cardiology, [facility] [address] [place] [address] Herb Tamez, [address] [place] [address] 11/22/2024 8:00 AM EST Hospital Encounter ENDO [facility], Endoscopy [address] [place] [phone] Kike Gross DO [address] [place] [address] 11/22/2024 8:00 AM EST - 11/22/2024 8:45 AM EST Surgery [facility]O [facility], Endoscopy [address] [place] [phone] Kike Gross, DO [address] [place] [address] ESOPHAGOGASTRODUODENOSCOPY (EGD), FLEXIBLE, TRANSORAL, ENDOSCOPIC ULTRASOUND Scheduled [...] Comments DISCUSS TOBACCO CESSATION (REFER TO SMARTSET #0550) 1969 Pneumococcal Vaccine: Pediatrics (0 to 5 [...] this encounter Medical Devices Implanted Type Area Systems Integration Manager Device Identifier Shelf Expiration Date Model / Serial / Lot Stent Panc Sgl Pigtail [id number] - [id number] Implanted:Qty: 1 on 06/28/2024 by Kike Gross DO at ENDOSCOPY [facility] N/A: Stomach COOK : HARRISON THORNTON 04/12/2026 [id number] / / [id number] documented as of this encounter Advance Directives * Full Code (Latest Code Status on File) Date Activated Date Inactivated Comments 08/14/2022 1:00 AM 08/17/2022 2:38 PM This order reflects the patients wishes and were consensually agreed upon. Question Answer Comments Discussion of Advance Directives occurred with: Patient Care Teams Settlement Clerk Relationship Specialty Start Date End Date Wade Bragg MD [address] [place] [address] PCP - General Family Medicine 03/24/18 documented as of this encounter
--- OUTSIDE RECORDS SUMMARY | 2024-08-25 13:27 | External Medical Summary | Summary of Care ---
Author Name Unknown Organization [facility] Address [address] [facility] [place] [address] Phone [phone] Care Team Providers Care Rat Trapper Name Role Phone Wade Bragg MD Primary Care Provider +1- [phone] Reason for Visit * Reason Onset Date Comments Other 07/03/2024 Encounter Details Date Type Department Care Team (Late st Contact Info) Description 07/03/2024 Telephone Gastroenterology, [facility] [address] [place] [address] Kike Gross, [address] [place] [address] Other Allergies Active Allergy Reactions Criticality Noted [...] Oral Tablet (Zetia)Indications:C oronary artery disease involving [place] coronary artery of [place] heart without angina pectoris,Dyslipidemi a, goal LDL below 130,[place] (myocardial infarction) take 1 tablet by mouth [...] Tablet Sublingual (Nitrostat)Indicatio ns:Coronary artery disease involving [place] coronary artery of [place] heart without angina pectoris place 1 tablet [...] Hour (toPROL XL)Indications:Coron clark artery disease involving [place] coronary artery of [place] heart without angina pectoris,Ischemic cardiomyopathy,Dysli pidemia, goal [...] ase with esophagitis without hemorrhage 12/16/2020 [place] (myocardial infarction) 06/27/2018 Coronary artery disease of n ative artery of [place] heart with stable angina pectoris 06/27/2018 History [...] encounter Miscellaneous Notes * Telephone Encounter - Kike Gross DO - 07/03/2024 9:25 AM EDT Thank you for the update For the patient's follow up procedure I would suggest we do it at hospital-based Center, [facility] would be ideal * Telephone Encounter - Jannet Quach OSA - 07/03/2024 9:07 AM EDT FYI Received message 06/30/24 that pt was admitted to [facility] room 377 bed 1 for Pancreatitis. Please advise NAKIA Martinez 07/03/2024 9:08 AM documented in this encounter Plan of Treatment Upcoming Encounters Date Type Department Care Team (Latest Contact Info) Description 09/14/2024 1:30 PM EST Office Visit Gastroenterology , [facility] [address] [place] [address] Taylor Boyer CRNP [address] [place] [address] 11/16/2024 1:30 PM EST Office Visit Cardiology, [facility] [address] [place] [address] Herb Tamez DO [address] [place] [address] 11/22/2024 8:00 AM EST Hospital Encounter [facility]O [facility], Endoscopy Suite [facility] [address] [facility] [place] [phone] Kike Gross, DO [address] [place] [address] 11/22/2024 8:00 AM EST - 11/22/2024 8:45 AM EST Surgery [facility], Endoscopy Suite [facility] [address] [facility] [place], [place] [phone] Kike Gross, DO [address] [place] [address] ESOPHAGOGASTRODUODENOSCOPY (EGD), FLEXIBLE, TRANSORAL, ENDOSCOPIC ULTRASOUND Scheduled [...] Comments DISCUSS TOBACCO CESSATION (REFER TO SMARTSET #7311) 1969 Pneumococcal Vaccine: Pediatrics (0 to 5 [...] this encounter Medical Devices Implanted Type Area Enforcement Officer Device Identifier Shelf Expiration Date Model / Serial / Lot Stent Panc Sgl Pigtail [id number] - [id number] Implanted:Qty: 1 on 06/28/2024 by Kike Gross DO at ENDOSCOPY [facility] N/A: Stomach COOK : HARRISON THORNTON 04/12/2026 [id number] / / [id number] documented as of this encounter Advance Directives * Full Code (Latest Code Status on File) Date Activated Date Inactivated Comments 08/14/2022 1:00 AM 08/17/2022 2:38 PM This order r eflects the patients wishes and were consensually agreed upon. Question Answer Comments Discussion of Advance Directives occurred with: Patient Care Teams Rat Trapper Relationship Specialty Start Date End Date Wade Bragg MD [address] [place] [address] PCP - General Family Medicine 03/24/18 documented as of this encounter
[2024-08-25] MEDS: OPTIRAY 320 125ml IV ONE (16:39)
--- NOTE | 2024-08-25 16:59 | CT Scan Report ---
INDICATION: Abdominal pain. COMPARISON: CT from 06/30/2024. TECHNIQUE: Axial CT images of the abdomen and pelvis were obtained prior to and following IV contrast administration. Coronal and sagittal reformations were reviewed. FINDINGS: Visualized lung bases appear unremarkable. Inflammation surrounding the pancreas most pronounced in the pancreatic head/body and adjacent duodenal region. The overall decreased inflammation compared to prior. No walled off abscess. No free air. Pancreatic duct stent remains in place. Mild biliary ductal prominence, similar to prior. Air in the biliary tree likely related to biliary intervention. The gallbladder is surgically absent. No acute process in the liver, spleen or adrenal glands. Small right renal cyst again noted. No evidence of bowel obstruction/colitis/appendicitis. Negative for abdominal aortic aneurysm or dissection. Mesenteric and renal arteries are patent without significant stenosis. The urinary bladder wall is thickened. Small fat-containing bilateral inguinal hernias. Degenerative changes in the spine. No acute osseous abnormality evident. IMPRESSION: 1. Acute pancreatitis. Overall inflammatory fat stranding is somewhat improved compared to prior exam. No free air. No abscess. 2. Biliary ductal prominence, similar to prior and likely related to patient's postcholecystectomy state. 3. Mild urinary bladder wall thickening. Follow-up as clinically relevant. ACT 112: Positive. There are findings on this exam that require communication between the performing entity and the patient following Patient Test Result Information Act ([place] ACT 112) guidelines. Electronically signed by César Macdonald 08-25-2024 4:58 PM
[2024-08-26 06:13] LABS: BUN Creatinine Ratio 11.1 (10-20); Calcium 9.4 mg/dl (8.6-10.3); Creatinine Clr Calc Pharmacy 58.3 ml/min; Potassium 4.2 mmol/L (3.5-5.1)
[2024-08-26 08:05] VITALS: PULSE 61
[2024-08-26 08:06] VITALS: BP 129/83; RESP 20; TEMP 97.9; O2SAT 96
--- NOTE | 2024-08-26 10:02 | Discharge Summary ---
Discharge Summary Date of Service August 26, 2024 Principal Dx & Hospital Course #1 = Principal Diagnosis (1) Acute on chronic pancreatitis: (2) Grade II diastolic dysfunction: (3) Barretts esophagus: (4) CAD (coronary artery disease): (5) RADHA (generalized anxiety disorder): (6) Depression: (7) ASCVD (arteriosclerotic cardiovascular disease): Plan Patient presenting to the emergency room with acute chest and abdominal pain. Patient extensive heart history as well as extensive history of chronic pancreatitis. Evaluation in the emergency room noted some mildly elevated troponins. Patient was admitted to the hospital. Continued on his usual medications. His nephrotoxins were held due to some acute kidney injury. He was given some IV hydration. Cardiology consultation was obtained due to the mildly elevated troponins. It was determined that this is chronic troponin pattern and elevation no evidence of acute coronary syndrome. Patient had echocardiogram performed which was at his baseline and had actually improved some of his LV function. Patient's symptoms was somewhat suspicious for possible intestinal ischemia. I reviewed his previous CAT scans showed possibly some mild vascular disease. Patient underwent CTA of the abdomen pelvis which did not show any significant vascular occlusion. CT of the abdomen did show some acute on his chronic pancreatitis. Patient's renal function had returned to baseline with hydration. Patient's abdominal pain improved. His diet was advanced. On the day of discharge his vital signs are stable. He is tolerating his diet. He had minimal to no abdominal pain. Ultimately patient's presenting symptoms were due to his acute pancreatitis. Patient is very well knowledgeable on how to manage his pancreatitis. Be discharged home to follow-up with his o utpatient providers. Notes For Next Care Provider Medication Changes From Visit None Admission HPI Per Admitting Provider The patient is a 53 year old male with a pmh of htn/hld/ischemic cardiomyopathy/chronic pancreatitis/CAD/depression/Casanova's esophagus/grade 2 diastolic dysfunction/mi x 5 s/p stent-placement last 1 about a year ago, gerd, reports to the er today 08/24/24 with complaints of sob, cp, and left arm pain/weakness since earlier this afternoon. The pain came on at work today and he is still currently having some substernal cp. Does not worsen with activity. 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 Reports some nausea but denies vomiting. Reports upper abdominal pain. Reports a chronic abdominal pain. The pain comes and goes. Reports a recent pancreatic stent placed about 1 month ago and feeling better since he had the stent placed. Patient reports having a turkey lunch earlier before the abdominal/chest pain started. On arrival to the ED, labs remarkable for lipase 268, creatinine 1.48 current half pack smoker. Denies alcohol or drug use Reports chronic diarrhea Denies fevers/sore throat, cough, heart palpitations/recent travel/recent respiratory illness CXR was negative Troponin/D-dimer unremarkable, EKG with no acute changes The patient will be admitted for further chest pain workup Admission Exam Per Admitting Provider See H&P Discharge Exam Constitutional: Alert HEENT: Mucous membranes moist. Lungs: Clear to auscultation, decreased, no wheezes rales or rhonchi CV: S1-S2, regular Abdomen: Soft, no guarding, no rigidity, no significant tenderness, nondistended Extremities: No significant edema Neuro: No focal deficits Psych: Cooperative, normal mood Updated Medication List Medication Instructions Recorded Confirmed Type aspirin 81 mg tablet,delayed 81 mg PO DAILY 06/25/24 08/24/24 History release ezetimibe 10 mg tablet 10 mg PO DAILY 06/25/24 08/24/24 History famotidine 40 mg tablet 40 mg PO HS 06/25/24 08/24/24 History losartan 25 mg tablet 12.5 mg PO DAILY 06/25/24 08/24/24 History magnesium oxide 400 mg (241.3 mg 400 mg PO DAILY 06/25/24 08/24/24 History magnesium) tablet metoprolol succinate 25 mg 25 mg PO BID 06/25/24 08/24/24 History tablet,extended release 24 hr pantoprazole 40 mg tablet,delayed 40 mg PO BID 06/25/24 08/24/24 History release rosuvastatin 40 mg tablet 40 mg PO DAILY 06/25/24 08/24/24 History sertraline 100 mg tablet 100 mg PO DAILY 06/25/24 08/24/24 History ticagrelor 90 mg tablet (Brilinta) 90 mg PO BID 06/25/24 08/24/24 History Hospital Stay Data Consultations 08/24/24 17:27 ED Decision to Admit Stat 08/24/24 18:41 Consult Cardiology Routine Diagnostic Imagining Performed 08/25/24 15:55 CTA abd pelvis wo/w con [CT angio abd pelvis wo/w con] Routine Reviewed imaging, laboratory and diagnostic studies. Pertinent findings as below. Echocardiogram shows ejection fraction 40 to 45%, improved from previous Sodium 138 Potassium 4[address] of the abdomen pelvis showed some acute pancreatitis, patent biliary stent, no evidence of significant vascular disease. I refer to the full report for details. Pending Results Patient Have Any Pending Studies at Discharge: No Discharge Instructions Given to Patient (Per Discharging Provider) Recommend continuing low-fat diet, Continue with your other usual care Total Time Total Time Spent Total Time Spent (In Minutes): 25
--- NOTE | 2024-08-28 16:39 | Electrocardiogram Report ---
Test Reason : Blood Pressure : */* mmHG Vent. Rate : 53 BPM Atrial Rate : 53 BPM P-R Int : 130 ms QRS Dur : 84 ms QT Int : 408 ms P-R-T Axes : 62 11 15 degrees QTcB Int : 382 ms Poor data quality, interpretation may be adversely affected Sinus bradycardia Inferior-posterior infarct (cited on or before 20-May-2023) Abnormal ECG When compared with ECG of 24-Aug-2024 16:26, No significant change was found Confirmed by Jaren Crow ([id number]) on 08/28/2024 4:39:34 PM Referred By: REFERRED SELF Confirmed By: Jaren Crow
--- NOTE | 2024-08-28 16:40 | Electrocardiogram Report ---
Test Reason : Blood Pressure : */* mmHG Vent. Rate : 52 BPM Atrial Rate : 52 BPM P-R Int : 128 ms QRS Dur : 88 ms QT Int : 406 ms P-R-T Axes : 67 1 23 degrees QTcB Int : 377 ms Sinus bradycardia Possible Lateral infarct , age undetermined Inferior-posterior infarct (cited on or before 20-May-2023) Abnormal ECG When compared with ECG of 25-Aug-2024 06:25, No significant change was found Confirmed by Jaren Crow ([id number]) on 08/28/2024 4:39:47 PM Referred By: REFERRED SELF Confirmed By: Jaren Crow
== END 2024-08-26 10:46 | disposition home or self-care (01) | DRG 439 ==
LOC: ED 16:15 → SUATTDRO 17:51 → 4W 17:51

== ENCOUNTER 2024-10-03 20:21 | Inpatient (IN) ==
--- OUTSIDE RECORDS SUMMARY | 2024-10-03 20:25 | External Medical Summary | Summary of Care ---
Author Name Unknown Organization [facility] Address [address] [facility] [place] [address] Phone [phone] Care Team Providers Care Urban Planner Name Role Phone Wade Bragg MD Primary Care Provider +1- [phone] Reason for Referral * Precert (Within 10 days (routine)) - Pending Review Specialty Diagnoses / Procedures Referred By Contac t Referred To Contact Radiology Diagnoses Chronic pancreatitis, unspecified pancreatitis type (HCC) Procedures CT PANCREAS W WO IV AND W ORAL CONTRAST Kike Gross DO [address] [place] [address] Phone: tel: fax: Referral ID Status Reason Start Date Expiration Date V isits Requested Visits Authorized [id number] Pending Review 11/10/[phone] Reason for Visit * Reason Onset Date Comments Test Results Biopsy 09/22/2024 Appointment 09/22/2024 Ercp scheduling. Encounter Details Date Type Department Care Team (Late st Contact Info) Description 09/22/2024 Telephone Gastroenterology, [facility] [address] [place] [address] Kike Gross DO [address] [place] [address] Test Results Biopsy; Appointment (Ercp jon... Allergies Active Allergy Reactions Criticality Noted Date Comments Isosorbide Nitrate 07/30/2023 Severe Mirgrains documented as of this encounter (statuses as of 09/27/2024) Medications Sucralfate 1 GM Oral Tablet (Carafate) Take 1 Tablet by mouth 4 times a day before meals and at bedtime. 07/12/20 23 Active Nitroglycerin 0.4 MG Sublingual Tablet Sublingual (Nitrostat)Indicat ions:Coronary artery disease involving [place] coronary artery of [place] heart without angina pectoris place 1 tablet under the tongue if needed every 5 minutes for chest pain for 3 doses IF NO RELIEF AFTER THIRD DOSE CALL 911. 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,Gastroes ophageal reflux disease without esophagitis take 1 tablet by mouth BEFORE BEDTIME 90 Tablet 2 12/30/19 24 Active Aspirin 81 MG Oral Tablet Delayed Release (Aspirin Low Dose) Take 1 tablet by mouth every morning 90 Tablet 3 12/30/19 24 Active Metoprolol Succinate ER 25 MG Oral Tablet Extended Release 24 Hour (toPROL XL)Indications:Cor onary artery disease involving [place] coronary artery of [place] heart without angina pectoris,Ischemic cardiomyopathy,Dys lipidemia, goal LDL below 70,Tobacco use disorder Take 1 Tablet by mouth in the morning and 1 Tablet before bedtime. 180 Tablet 3 12/30/19 24 Active Losartan Potassium 25 MG Oral Tablet (Cozaar) Take 0.5 Tablets by mouth daily. 34 Tablet 11 04/20/20 24 Active Ondansetron 4 MG Oral Tablet Disintegrating (Zofran) Place 1 Tablet on tongue every 8 hours as needed for Nausea. dissolve on tongue. 30 Tablet 2 04/26/20 24 Active Brilinta 90 MG Oral Tablet (Ticagrelor)Indica tions:NSTEMI (non-ST elevation myocardial infarction) (HCC) TAKE 1 TABLET BY MOUTH EVERY DAY IN THE MORNING AND BEFORE BEDTIME 60 Tablet 11 07/05/20 24 Active Ciprofloxacin HCl 500 MG Oral Tablet (Cipro) Take 1 Tablet by mouth in the morning and 1 Tablet before bedtime. 10 Tablet 09/20/20 24 Active Ezetimibe 10 MG Oral Tablet (Zetia)Indications :Coronary artery disease involving [place] coronary artery of [place] heart without angina pectoris,Dyslipide fredy, goal LDL below 130,Old [place] (myocardial infarction) take 1 tablet by mouth every morning 90 Tablet 3 08/30/20 23 024 Discontin ued(Refil l) Pantoprazole Sodium 40 MG Oral Tablet Delayed Release (Protonix) take 1 tablet by mouth every morning 90 Tablet 3 08/30/20 23 024 Discontin ued(Refil l) Sertraline HCl 100 MG Oral Tablet (Zoloft) Take 1 Tablet by mouth in the morning. 90 Tablet 3 09/14/20 23 024 Discontin ued(Refil l) documented as of this encounter (statuses as of 09/27/2024) Active Problems Problem Noted Date Diagnosed Date Bradycardia 04/20/2024 Ischemic cardiomyopathy 06/22/2023 NSVT (nonsustained ventricular tachycardia) 06/[address] elevation myocardial infarction (S ANT) 06/22/2023 HFrEF (heart failure with reduced ejection fract ion) 06/22/2023 S/P angioplasty with stent 05/28/2023 Gastroesophageal reflux dise ase with esophagitis without hemorrhage 12/16/2020 [place] (myocardial infarction) 06/27/2018 Coronary artery disease of n ative artery of [place] heart with stable angina pectoris 06/27/2018 History of acute pancreatitis 06/27/2018 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 Dyslipidemia, goal LDL below 70 09/18/2013 Generalized anxiety disorder 03/09/2013 Tobacco use disorder 01/03/2013 documented as of this encounter (statuses as of 09/27/2024) Resolved Problems Problem Noted Date Diagnosed Date Resolved Date Acute ST elevation myocardia l infarction (STEMI) 05/28/2023 10/03/2023 Acute pancreatitis 08/13/2022 3 INFORMATION 05/11/2017 03/24/2018 Overview (06/02/2017): 10 year cardiovascular risk 18.5% Idiopathic acute pancreatitis 09/16/2015 06/27/2018 Acute gastritis without bleeding 09/16/2015 06/27/2018 INFORMATION 09/10/2015 03/24/2018 Overview (09/17/2015): 10 year cardiovascular risk of 21% PPD screening test 08/10/2014 08/ 7 INFORMATION 07/11/2014 03/24/2018 Overview (08/20/2014): 10 year risk 19% Pancreatitis, acute 09/18/2013 03/24/20 18 Left flank pain 09/18/2013 09/16/2015 Routine medical exam 01/03/2013 018 Gastroesophageal reflux 01/03/201305/2021 Screening for cardiovascular condition 01/03/2013 05/31/2017 Vasectomy status 03/07/2003 09/16/2015 Syncope and collapse 04/26/2002 015 Anxiety state 04/26/2002 09/16/2015 documented as of this encounter (statuses as of 09/27/2024) Immunizations Name Administration Dates Next Due Hepatitis [...] Assigned at Male 05/27/2023 12:36 PM EDT Legal Sex Male 5:57 AM EST Gender Identity Male 05/27/2023 12:36 PM EDT Sexual Orientation Straight 05/27/2023 12 :36 PM EDT documented as of this encounter Miscellaneous Notes * Telephone Encounter - Arminda Stein OSA - 09/27/2024 9:43 AM EST Lm for pt to return call to schedule the repeat ercp with stent removal. Pt case is built just needs pre op questions completed and scheduled. Please schedule. * Telephone Encounter - Maame Mckeon OSA - 09/26/2024 1:01 PM EST Patient returning call to schedule ERCP. Please call patient back on mobile number listed in chart. * Telephone Encounter - Jannet Quach OSA - 09/25/2024 4:17 PM EST Lmm NAKIA Martinez 09/25/2024 4:17 PM * Telephone Encounter - Jennifer Arevalo CMA - 09/22/2024 2:41 PM EST Pt notified of Dr Gross's note and plan. Pt voiced understanding. Informed pt scheduling will contact her to set up ERCP w/stent removal in [address] scan 3 in months. * Telephone Encounter - Benedict Benavides LPN - 09/22/2024 2:30 PM EST The patient called back, transferred to gastro nurse. * Telephone Encounter - Kike Gross DO - 09/22/2024 2:02 PM EST I attempted a call to the patient to review his pathology results. I left a brief message for him to call our office with a good daytime number. The cytology is benign, the pancreatic mass is most consistent with chronic pancreatitis. Plan ERCP for pancreatic stent removal in [address] of pancreas in 3 months. A. Pancreas, Head, EUS guided fine needle aspiration: Adequacy: Satisfactory for evaluation. Category: Benign (WHO International System). Interpretation: Benign ductal cells, acinar cells, fibrosis, and scattered inflammatory cells, favor chronic pancreatitis. See comment. Other: Cellblock: The histological sections of the cellblock preparation are hypocellular. Comment: There is no diagnostic evidence of malignancy on this limited sample. The finding is consistent with chronic pancreatitis. Immunohistochemical stains are noncontributory due to absence of cellular components in cell block sections. Clinical-radiologic correlation is essential. documented in this encounter Plan of Treatment Upcoming Encounters Date Type Department Care Team (Late st Contact Info) Description 11/10/2024 12:00 PM EST Imaging Radiology [address] [facility] [place] [address] 12/08/2024 1:00 PM EST Office Visit Gastroenterology, [facility] [address] [facility] [place] [address] Taylor Boyer CRNP 132 [facility] [place] [address] Scheduled Orders Name Type Priority Associated Diagnoses Orde r Schedule CT PANCREAS W WO IV AND W ORAL CONTRAST Medical Imaging Routine Chronic pancreatitis, unspecified pancreatitis type (HCC) Expected: 11/10/2024 (Approximate), Expires: 10/23/2025 ERCP W/ STENT EXCHANGE Procedures Routine Chronic pancreatitis, unspecified pancreatitis type (HCC) Expected: 10/23/2024 (Approximate), Expires: 10/23/2025 Scheduled Procedures Name Priority Associated Diagnoses Date/Ti me ENDOSCOPIC RETROGRADE CHOLANGIOPANCREATOGRAPHY (ERCP) W/STENT REMOVAL AND EXCHANGE; INC DILATION, GUIDE WIRE AND SPHINCTEROTOMY Recall Encounter for removal of pancreatic stent ESOPHAGOGASTRODUODENOSCOPY ( EGD), FLEXIBLE, TRANSORAL, DIAGNOSTIC Recall 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 COLONOSCOPY FLEXIBLE PROXIMAL DIAGNOSTIC Recall History of colonic polyps Health Maintenance Due Date Last Done Comments DISCUSS TOBACCO CESSATION (REFER TO SMARTSET #6806) 1970 Pneumococcal Vaccine: Pediatrics (0 to 5 [...] this encounter Medical Devices Implanted Type Area Farm Machinery Mechanic Device Identifier Shelf Expiration Date Model / Serial / Lot Stent Panc Sgl Pigtail [id number] - [id number] Implanted:Qty: 1 on 06/28/2024 by Kike Gross DO at ENDOSCOPY [facility] N/A: Stomach NORBERTO : HARRISON THORNTON 04/12/2026 [id number] / / [id number] documented as of this encounter Visit Diagnoses Diagnosis Chronic pancreatitis, unspecified pancreatitis type (HCC)- Primary documented in this encounter Advance Directives * Full Code (Latest Code Status on File) Date Activated Date Inactivated Comments 08/14/2022 1:00 AM 08/17/2022 2:38 PM This order r eflects the patients wishes and were consensually agreed upon. Question Answer Comments Discussion of Advance Directives occurred with: Patient Care Teams Urban Planner Relationship Specialty Start Date End Date Wade Bragg MD [address] [facility] [address] PCP - General Family Medicine 03/24/18 documented as of this encounter
--- OUTSIDE RECORDS SUMMARY | 2024-10-03 20:25 | External Medical Summary | Summary of Care ---
Author Name Unknown Organization [facility] Address [address] [facility] [place] [address] Phone [phone] Care Team Providers Care Web Architect Name Role Phone Wade Bragg MD Primary Care Provider +1- [phone] Reason for Referral * Precert (Within 10 days (routine)) - Pending Review Specialty Diagnoses / Procedures Referred By Contac t Referred To Contact Radiology Diagnoses Chronic pancreatitis, unspecified pancreatitis type (HCC) Procedures CT PANCREAS W WO IV AND W ORAL CONTRAST Kike Gross DO [address] [place] [address] Phone: tel: fax: Referral ID Status Reason Start Date Expiration Date V isits Requested Visits Authorized [id number] Pending Review 11/10/[phone] Reason for Visit * Reason Onset Date Comments Test Results Biopsy 09/22/2024 Appointment 09/22/2024 Ercp scheduling. Encounter Details Date Type Department Care Team (Late st Contact Info) Description 09/22/2024 Telephone Gastroenterology, [facility] [address] [place] [address] Kike Gross DO [address] [place] [address] Test Results Biopsy; Appointment (Ercp jon... Allergies Active Allergy Reactions Criticality Noted Date Comments Isosorbide Nitrate 07/30/2023 Severe Mirgrains documented as of this encounter (statuses as of 09/27/2024) Medications Sucralfate 1 GM Oral Tablet (Carafate) Take 1 Tablet by mouth 4 times a day before meals and at bedtime. 07/12/20 23 Active Nitroglycerin 0.4 MG Sublingual Tablet Sublingual (Nitrostat)Indicat ions:Coronary artery disease involving [place] coronary artery of [place] heart without angina pectoris place 1 tablet [...] Hour (toPROL XL)Indications:Cor onary artery disease involving [place] coronary artery of [place] heart without angina pectoris,Ischemic cardiomyopathy,Dys lipidemia, goal [...] Oral Tablet (Zetia)Indications :Coronary artery disease involving [place] coronary artery of [place] heart without angina pectoris,Dyslipide fredy, goal LDL below 130,Old [place] (myocardial infarction) take 1 tablet by mouth [...] ase with esophagitis without hemorrhage 12/16/2020 [place] (myocardial infarction) 06/27/2018 Coronary artery disease of n ative artery of [place] heart with stable angina pectoris 06/27/2018 History [...] encounter Miscellaneous Notes * Telephone Encounter - Kate Blas OSA - 09/27/2024 9:52 AM EST Pt called [facility], states Dr. Gross told him he wanted this done at [facility]. Pt states every time hehas this procedure done he gets a flare of pancreatitis and ends up in the hospital. Pt suggested maybe to be admitted after ERCP as a "just in case". Thoughts on where you want this scheduled? * Telephone Encounter - Arminda Stein OSA [...] Description 11/10/2024 12:00 PM EST Imaging Radiology [address] 132 [facility] [place] [address] 12/08/2024 1:00 PM EST Office Visit Gastroenterology, [facility] [address] [place] [address] Taylor Boyer CRNP 132 [facility] [place] [id number] Scheduled Orders Name Type Priority Associated Diagnoses [...] Comments DISCUSS TOBACCO CESSATION (REFER TO SMARTSET #0205) 1970 Pneumococcal Vaccine: Pediatrics (0 to 5 [...] this encounter Medical Devices Implanted Type Area Power Tool Repair Technician Device Identifier Shelf Expiration Date Model / Serial / Lot Stent Panc Sgl Pigtail [id number] - [id number] Implanted:Qty: 1 on 06/28/2024 by Kike Gross DO at ENDOSCOPY [facility] N/A: Stomach COOK : HARRISON THORNTON 04/12/2026 [id number] / / [id number] documented as of this encounter Visit Diagnoses [...] Advance Directives occurred with: Patient Care Teams Web Architect Relationship Specialty Start Date End Date Wade Bragg MD [address] [facility] [place] [address] PCP - General Family Medicine 03/24/18 documented as of this encounter
--- OUTSIDE RECORDS SUMMARY | 2024-10-03 20:25 | External Medical Summary | Summary of Care ---
Author Name Unknown Organization [facility] Address [address] [facility] [place] [address] Phone [phone] Care Team Providers Care Tractor Operator Helper Name Role Phone Wade Bragg MD Primary Care Provider +1- [phone] Reason for Referral * Precert (Within 10 days (routine)) - Pending Review Specialty Diagnoses / Procedures Referred By Contac t Referred To Contact Radiology Diagnoses Chronic pancreatitis, unspecified pancreatitis type (HCC) Procedures CT PANCREAS W WO IV AND W ORAL CONTRAST Kike Gross DO [address] [place] [address] Phone: tel: fax: Referral ID Status Reason Start Date Expiration Date V isits Requested Visits Authorized [id number] Pending Review 11/10/[phone] Reason for Visit * Reason Onset Date Comments Test Results Biopsy 09/22/2024 Appointment 09/22/2024 Ercp scheduling. Encounter Details Date Type Department Care Team (Late st Contact Info) Description 09/22/2024 Telephone Gastroenterology, [facility] [address] [place] [address] Kike Gross DO [address] [place] [address] Test Results Biopsy; Appointment (Ercp jon... Allergies Active Allergy Reactions Criticality Noted Date Comments Isosorbide Nitrate 07/30/2023 Severe Mirgrains documented as of this encounter (statuses as of 09/27/2024) Medications Sucralfate 1 GM Oral Tablet (Carafate) Take 1 Tablet by mouth 4 times a day before meals and at bedtime. 07/12/20 23 Active Nitroglycerin 0.4 MG Sublingual Tablet Sublingual (Nitrostat)Indicat ions:Coronary artery disease involving [place] coronary artery of [place] heart without angina pectoris place 1 tablet [...] Hour (toPROL XL)Indications:Cor onary artery disease involving [place] coronary artery of [place] heart without angina pectoris,Ischemic cardiomyopathy,Dys lipidemia, goal [...] Oral Tablet (Zetia)Indications :Coronary artery disease involving [place] coronary artery of [place] heart without angina pectoris,Dyslipide fredy, goal LDL below 130,Old [place] (myocardial infarction) take 1 tablet by mouth [...] ase with esophagitis without hemorrhage 12/16/2020 [place] (myocardial infarction) 06/27/2018 Coronary artery disease of n ative artery of [place] heart with stable angina pectoris 06/27/2018 History [...] Telephone Encounter - Kike Gross DO - 09/27/2024 10:17 AM EST We can schedule the patient had [facility], if he is having problems afterwards we could certainly admit him. It may be best to do the case early in the day. * Telephone Encounter - Kate Blas OSA - 09/27/2024 9:52 AM EST Pt called [place], states Dr. Gross told him he wanted this done at [facility]. Pt states every time hehas this [...] Description 11/10/2024 12:00 PM EST Imaging Radiology [address] [place] [address] 12/08/2024 1:00 PM EST Office Visit Gastroenterology, [facility] [address] [place] [address] Taylor Boyer CRNP 132 [facility] [place] [address] Scheduled Orders Name Type Priority Associated Diagnoses [...] Comments DISCUSS TOBACCO CESSATION (REFER TO SMARTSET #) 1970 Pneumococcal Vaccine: Pediatrics (0 to 5 [...] this encounter Medical Devices Implanted Type Area Profiling Machine Set Up Operator Device Identifier Shelf Expiration Date Model / Serial / Lot Stent Panc Sgl Pigtail [id number] - [id number] Implanted:Qty: 1 on 06/28/2024 by Kike Gross DO at ENDOSCOPY [facility] N/A: Stomach COOK : HARRISON THORNTON 04/12/2026 [id number] / / [id number] documented as of this encounter Visit Diagnoses [...] Advance Directives occurred with: Patient Care Teams Tractor Operator Helper Relationship Specialty Start Date End Date Wade Bragg MD [address] [place] [address] PCP - General Family Medicine 03/24/18 documented as of this encounter
--- OUTSIDE RECORDS SUMMARY | 2024-10-03 20:25 | External Medical Summary | Summary of Care ---
Author Name Unknown Organization [facility] Address [address] [facility] [place] [address] Phone [phone] Care Team Providers Care Staple Cutter Name Role Phone Wade Bragg MD Primary Care Provider +1- [phone] Reason for Referral * Precert (Within 10 days (routine)) - Pending Review Specialty Diagnoses / Procedures Referred By Contac t Referred To Contact Radiology Diagnoses Chronic pancreatitis, unspecified pancreatitis type (HCC) Procedures CT PANCREAS W WO IV AND W ORAL CONTRAST Kike Gross DO [address] [place] [address] Phone: tel: fax: Referral ID Status Reason Start Date Expiration Date V isits Requested Visits Authorized [id number] Pending Review 11/10/[phone] Reason for Visit * Reason Onset Date Comments Test Results Biopsy 09/22/2024 Appointment 09/22/2024 Ercp scheduling. Encounter Details Date Type Department Care Team (Late st Contact Info) Description 09/22/2024 Telephone Gastroenterology, [facility] [address] [place] [address] Kike Gross DO [address] [place] [address] Test Results Biopsy; Appointment (Ercp jon... Allergies Active Allergy Reactions Criticality Noted Date Comments Isosorbide Nitrate 07/30/2023 Severe Mirgrains documented as of this encounter (statuses as of 09/27/2024) Medications Sucralfate 1 GM Oral Tablet (Carafate) Take 1 Tablet by mouth 4 times a day before meals and at bedtime. 07/12/20 23 Active Nitroglycerin 0.4 MG Sublingual Tablet Sublingual (Nitrostat)Indicat ions:Coronary artery disease involving [place] coronary artery of [place] heart without angina pectoris place 1 tablet [...] Hour (toPROL XL)Indications:Cor onary artery disease involving [place] coronary artery of [place] heart without angina pectoris,Ischemic cardiomyopathy,Dys lipidemia, goal [...] Oral Tablet (Zetia)Indications :Coronary artery disease involving [place] coronary artery of [place] heart without angina pectoris,Dyslipide fredy, goal LDL below 130,Old [place] (myocardial infarction) take 1 tablet by mouth [...] ase with esophagitis without hemorrhage 12/16/2020 [place] (myocardial infarction) 06/27/2018 Coronary artery disease of n ative artery of [place] heart with stable angina pectoris 06/27/2018 History [...] EST We can schedule the patient had [facility], if he is having problems afterwards we could certainly admit him. It may be best to do the case early in the day. * Telephone Encounter - Kate Blas OSA - 09/27/2024 9:52 AM EST Pt called [place], states Dr. Gross told him he wanted this done at [facility]. Pt states every time hehas this procedure [...] Description 11/10/2024 12:00 PM EST Imaging Radiology [address] [place] [address] 12/08/2024 1:00 PM EST Office Visit Gastroenterology, [facility] [address] [place] [address] Taylor Boyer CRNP 132 [facility] [place] [address] Scheduled Orders Name Type Priority Associated Diagnoses [...] Comments DISCUSS TOBACCO CESSATION (REFER TO SMARTSET #8559) 1970 Pneumococcal Vaccine: Pediatrics (0 to 5 [...] this encounter Medical Devices Implanted Type Area Pattern Ruler Device Identifier Shelf Expiration Date Model / Serial / Lot Stent Panc Sgl Pigtail [id number] - [id number] Implanted:Qty: 1 on 06/28/2024 by Kike Gross DO at ENDOSCOPY [facility] N/A: Stomach COOK : HARRISON THORNTON 04/12/2026 [id number] / / [id number] documented as of this encounter Visit Diagnoses [...] Advance Directives occurred with: Patient Care Teams Staple Cutter Relationship Specialty Start Date End Date Wade Bragg MD [address] [place] [address] PCP - General Family Medicine 03/24/18 documented as of this encounter
--- OUTSIDE RECORDS SUMMARY | 2024-10-03 20:25 | External Medical Summary | Summary of Care ---
Author Name Unknown Organization [facility] Address [address] [place] [address] Phone [phone] Care Team Providers Care Fixed Income Analyst Name Role Phone Wade Bragg MD Primary Care Provider +1- [phone] Reason for Referral * Precert (Within 10 days (routine)) - Pending Review Specialty Diagnoses / Procedures Referred By Contac t Referred To Contact Radiology Diagnoses Chronic pancreatitis, unspecified pancreatitis type (HCC) Procedures CT PANCREAS W WO IV AND W ORAL CONTRAST Kike Gross DO [address] [place] [address] Phone: tel: fax: Referral ID Status Reason Start Date Expiration Date V isits Requested Visits Authorized [id number] Pending Review 11/10/2024 999 999 Reason for Visit * Reason Onset Date Comments Test Results Biopsy 09/22/2024 Appointment 09/22/2024 Ercp scheduling. Encounter Details Date Type Department Care Team (Late st Contact Info) Description 09/22/2024 Telephone Gastroenterology, [facility] [address] [place] [address] Kike Gross DO [address] [place] [address] Test Results Biopsy; Appointment (Ercp jon... Allergies Active Allergy Reactions Criticality Noted Date Comments Isosorbide Nitrate 07/30/2023 Severe Mirgrains documented as of this encounter (statuses as of 09/27/2024) Medications Sucralfate 1 GM Oral Tablet (Carafate) Take 1 Tablet by mouth 4 times a day before meals and at bedtime. 07/12/20 23 Active Nitroglycerin 0.4 MG Sublingual Tablet Sublingual (Nitrostat)Indicat ions:Coronary artery disease involving [place] coronary artery of [place] heart without angina pectoris place 1 tablet [...] Hour (toPROL XL)Indications:Cor onary artery disease involving [place] coronary artery of [place] heart without angina pectoris,Ischemic cardiomyopathy,Dys lipidemia, goal [...] Oral Tablet (Zetia)Indications :Coronary artery disease involving [place] coronary artery of [place] heart without angina pectoris,Dyslipide fredy, goal LDL [...] artery disease of n ative artery of [place] heart with stable angina pectoris 06/27/2018 History [...] Encounter - Kate Blas OSA - 09/27/2024 1:51 PM EST Spoke to pt, jon'gypsy ERCP 01/04/25 at [facility]. * Telephone Encounter - Kike Gross DO - 09/27/2024 10:17 AM EST We can schedule the patient had [facility], if he is having problems afterwards we could certainly admit him. It may be best to do the case early in the day. * Telephone Encounter - Kate Blas OSA - 09/27/2024 9:52 AM EST Pt called [facility], states Dr. Gross told him he wanted this done at [facility]. Pt states every time hehas this procedure [...] Department Care Team (Latest Contact Info) Description 11/10/2024 12:00 PM EST Imaging Radiology [facility] [address] [place] [address] 12/08/2024 1:00 PM EST Office Visit Gastroenterology , [facility] [address] [place] [address] Taylor Boyer CRNP [address] [place] [address] 01/04/2025 7:30 AM EDT Hospital Encounter OR [facility], Operating Room, [facility] Floor [address] [place] [address] Kike Gross DO [address] [place] [address] 01/04/2025 7:30 AM EDT - 01/04/2025 8:47 AM EDT Surgery OR [facility], Operating Room, [facility] Floor [address] [place] [address] Kike Gross DO [address] [place] [address] ENDOSCOPIC RETROGRADE CHOLANGIOPANCREATOGRAPHY (ERCP) W/STENT REMOVAL AND EXCHANGE; INC DILATION, GUIDE WIRE AND SPHINCTEROTOMY Scheduled Orders Name Type Priority Associated Diagnoses [...] Recall Encounter for removal of pancreatic stent 01/04/2025 7:30 AM EDT ESOPHAGOGASTRODUODENOSCOPY ( EGD), FLEXIBLE, TRANSORAL, DIAGNOSTIC Recall 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 COLONOSCOPY FLEXIBLE PROXIMA L DIAGNOSTIC Recall History of colonic polyps Health Maintenance Due Date Last Done Comments DISCUSS TOBACCO CESSATION (REFER TO SMARTSET #4723) 1970 Pneumococcal Vaccine: Pediatrics (0 to 5 [...] this encounter Medical Devices Implanted Type Area Recreation Program Specialist Device Identifier Shelf Expiration Date Model / Serial / Lot Stent Panc Sgl Pigtail [id number] - [id number] Implanted:Qty: 1 on 06/28/2024 by Kike Gross DO at ENDOSCOPY [facility] N/A: Stomach NORBERTO : HARRISON THORNTON 04/12/2026 [id number] / / [id number] documented as of this encounter Visit Diagnoses Diagnosis Chronic pancreatitis, unspecified pancreatitis type (HCC)- Primary Encounter for removal of pancreatic stent documented in this encounter Advance Directives * Full Code (Latest Code Status on File) Date Activated Date Inactivated Comments 08/14/2022 1:00 AM 08/17/2022 2:38 PM This order r eflects the patients wishes and were consensually agreed upon. Question Answer Comments Discussion of Advance Directives occurred with: Patient Care Teams Fixed Income Analyst Relationship Specialty Start Date End Date Wade Bragg MD [address] [facility] [place] [address] PCP - General Family Medicine 03/24/18 documented as of this encounter
--- OUTSIDE RECORDS SUMMARY | 2024-10-03 20:26 | External Medical Summary | Summary of Care ---
Author Name Unknown Organization [facility] Address [address] [facility] [place] [address] Phone [phone] Care Team Providers Care Core Measures Abstractor Name Role Phone Wade Bragg MD Primary Care Provider +1- [phone] Reason for Referral * Precert (Within 10 days (routine)) - Pending Review Specialty Diagnoses / Procedures Referred By Contac t Referred To Contact Radiology Diagnoses Chronic pancreatitis, unspecified pancreatitis type (HCC) Procedures CT PANCREAS W WO IV AND W ORAL CONTRAST Kike Gross DO [address] [place] [address] Phone: tel: fax: Referral ID Status Reason Start Date Expiration Date V isits Requested Visits Authorized [id number] Pending Review 11/10/2024 999 999 Reason for Visit * Reason Onset Date Comments Test Results Biopsy 09/22/2024 Encounter Details Date Type Department Care Team (Late st Contact Info) Description 09/22/2024 Telephone Gastroenterology, [facility] [address] [place] [address] Kike Gross DO [address] [place] [address] Test Results Biopsy Allergies Active Allergy Reactions Criticality Noted Date Comments Isosorbide Nitrate 07/30/2023 Severe Mirgrains documented as of this encounter (statuses as of 09/25/2024) Medications Sucralfate 1 GM Oral Tablet (Carafate) Take 1 Tablet by mouth 4 times a day before meals and at bedtime. 07/12/20 23 Active Ezetimibe 10 MG Oral Tablet (Zetia)Indications :Coronary artery disease involving [place] coronary artery of [place] heart without angina pectoris,Dyslipide fredy, goal LDL below 130,Old [place] (myocardial infarction) take 1 tablet by mouth every morning 90 Tablet 3 08/30/20 23 Active Additional Information Patient taking differently:10 mg OralHS, (No instructions reported), Reported on 2024 Pantoprazole Sodium 40 MG Oral Tablet Delayed Release (Protonix) take 1 tablet by mouth every morning 90 Tablet 3 08/30/20 23 Active Additional Information Patient taking differently:40 mg OralBID (.AM/PM), (No instructions reported), Reported on 2024 Nitroglycerin 0.4 MG Sublingual Tablet Sublingual (Nitrostat)Indicat ions:Coronary artery disease involving [place] coronary artery of [place] heart without angina pectoris place 1 tablet under the tongue if needed every 5 minutes for chest pain for 3 doses IF NO RELIEF AFTER THIRD DOSE CALL 911. 25 Tablet 11 08/30/20 23 Active Additional Information Patient not taking.Reported on 09/15/2024 Magnesium Oxide (Antacid) 400 MG Oral Tablet take 1 tablet by mouth IN THE MORNING 90 Tablet 3 08/30/20 23 Active Sertraline HCl 100 MG Oral Tablet (Zoloft) Take 1 Tablet by mouth in the morning. 90 Tablet 3 09/14/20 23 Active Rosuvastatin Calcium 40 MG Oral [...] Hour (toPROL XL)Indications:Cor onary artery disease involving [place] coronary artery of [place] heart without angina pectoris,Ischemic cardiomyopathy,Dys lipidemia, goal [...] before bedtime. 10 Tablet 09/20/20 24 Active documented as of this encounter (statuses as of 09/25/2024) Active Problems Problem Noted Date Diagnosed Date Bradycardia 04/20/2024 Ischemic cardiomyopathy 06/22/2023 NSVT (nonsustained ventricular tachycardia) 06/[address] elevation myocardial infarction (S ANT) 06/22/2023 HFrEF (heart failure with reduced ejection fract ion) 06/22/2023 S/P angioplasty with stent 05/28/2023 Gastroesophageal reflux dise ase with esophagitis without hemorrhage 12/16/2020 Old [place] (myocardial infarction) 06/27/2018 Coronary artery disease of n ative artery of [place] heart with stable angina pectoris 06/27/2018 History of acute pancreatitis 06/27/2018 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 Dyslipidemia, goal LDL below 70 09/18/2013 Generalized anxiety disorder 03/09/2013 Tobacco use disorder 01/03/2013 documented as of this encounter (statuses as of 09/25/2024) Resolved Problems Problem Noted Date Diagnosed Date [...] as of this encounter (statuses as of 09/25/2024) Immunizations Name Administration Dates Next Due Hepatitis [...] encounter Miscellaneous Notes * Telephone Encounter - Jennifer Arevalo CMA [...] Description 11/10/2024 12:00 PM EST [facility] [address] [place] [address] 12/08/2024 1:00 PM EST Office Visit Gastroenterology, [facility] [address] [place] [address] Taylor Boyer CRNP [address] [facility] [place] [address] Scheduled Orders Name Type Priority Associated Diagnoses [...] Comments DISCUSS TOBACCO CESSATION (REFER TO SMARTSET #6659) 1970 Pneumococcal Vaccine: Pediatrics (0 to 5 [...] this encounter Medical Devices Implanted Type Area Instructional Interventionist Device Identifier Shelf Expiration Date Model / Serial / Lot Stent Panc Sgl Pigtail [id number] - [id number] Implanted:Qty: 1 on 06/28/2024 by Kike Gross DO at ENDOSCOPY [facility] N/A: Stomach COOK : HARRISON THORNTON 04/12/2026 [id number] / / [id number] documented as of this encounter Visit Diagnoses [...] Advance Directives occurred with: Patient Care Teams Core Measures Abstractor Relationship Specialty Start Date End Date Wade Bragg MD [address] [place] [address] PCP - General Family Medicine 03/24/18 documented as of this encounter
--- OUTSIDE RECORDS SUMMARY | 2024-10-03 20:26 | External Medical Summary | Summary of Care ---
Author Name Unknown Organization [facility] Address [address] [facility] [place] [address] Phone [phone] Care Team Providers Care University Internship Name Role Phone Wade Bragg MD Primary Care Provider +1- [phone] Reason for Referral * Precert (Within 10 days (routine)) - Pending Review Specialty Diagnoses / Procedures Referred By Contac t Referred To Contact Radiology Diagnoses Chronic pancreatitis, unspecified pancreatitis type (HCC) Procedures CT PANCREAS W WO IV AND W ORAL CONTRAST Kike Gross DO [address] [place] [address] Phone: tel: fax: Referral ID Status Reason Start Date Expiration Date V isits Requested Visits Authorized [id number] Pending Review 11/10/2024 999 999 Reason for Visit * Reason Onset Date Comments Test Results Biopsy 09/22/2024 Encounter Details Date Type Department Care Team (Late st Contact Info) Description 09/22/2024 Telephone Gastroenterology, [facility] [address] [place] [address] Kike Gross DO [address] [place] [address] Test Results Biopsy Allergies Active Allergy Reactions Criticality Noted Date Comments Isosorbide Nitrate 07/30/2023 Severe Mirgrains documented as of this encounter (statuses as of 09/22/2024) Medications Sucralfate 1 GM Oral Tablet (Carafate) Take 1 Tablet by mouth 4 times a day before meals and at bedtime. 07/12/20 23 Active Ezetimibe 10 MG Oral Tablet (Zetia)Indications :Coronary artery disease involving [place] coronary artery of [place] heart without angina pectoris,Dyslipide fredy, goal LDL below 130,Old [place] (myocardial infarction) take 1 tablet by mouth [...] Tablet Sublingual (Nitrostat)Indicat ions:Coronary artery disease involving [place] coronary artery of [place] heart without angina pectoris place 1 tablet [...] Hour (toPROL XL)Indications:Cor onary artery disease involving [place] coronary artery of [place] heart without angina pectoris,Ischemic cardiomyopathy,Dys lipidemia, goal [...] as of this encounter (statuses as of 09/22/2024) Active Problems Problem Noted Date Diagnosed Date Bradycardia 04/20/2024 Ischemic cardiomyopathy 06/22/2023 NSVT (nonsustained ventricular tachycardia) 06/[address] elevation myocardial infarction (S ANT) 06/22/2023 HFrEF (heart failure with reduced ejection fract ion) 06/22/2023 S/P angioplasty with stent 05/28/2023 Gastroesophageal reflux dise ase with esophagitis without hemorrhage 12/16/2020 Old [place] (myocardial infarction) 06/27/2018 Coronary artery disease of n ative artery of [place] heart with stable angina pectoris 06/27/2018 History of acute pancreatitis 06/27/2018 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 Dyslipidemia, goal LDL below 70 09/18/2013 Generalized anxiety disorder 03/09/2013 Tobacco use disorder 01/03/2013 documented as of this encounter (statuses as of 09/22/2024) Resolved Problems Problem Noted Date Diagnosed Date [...] as of this encounter (statuses as of 09/22/2024) Immunizations Name Administration Dates Next Due Hepatitis [...] Care Team (Late st Contact Info) Description 12/08/2024 1:00 PM EST Office Visit Gastroenterology, [facility] [address] [place] [address] Taylor Boyer CRNP [address] [place] [address] Scheduled Orders Name Type Priority Associated Diagnoses [...] Comments DISCUSS TOBACCO CESSATION (REFER TO SMARTSET #9494) 1970 Pneumococcal Vaccine: Pediatrics (0 to 5 [...] this encounter Medical Devices Implanted Type Area Court Deputy Device Identifier Shelf Expiration Date Model / Serial / Lot Stent Panc Sgl Pigtail [id number] - [id number] Implanted:Qty: 1 on 06/28/2024 by Kike Gross DO at ENDOSCOPY [facility] N/A: Stomach COOK : HARRISON THORNTON 04/12/2026 [id number] / / [id number] documented as of this encounter Visit Diagnoses [...] Advance Directives occurred with: Patient Care Teams University Internship Relationship Specialty Start Date End Date Wade Bragg MD [address] [facility] [place] [address] PCP - General Family Medicine 03/24/18 documented as of this encounter
--- OUTSIDE RECORDS SUMMARY | 2024-10-03 20:26 | External Medical Summary | Summary of Care ---
Author Name Unknown Organization [facility] Address [address] [place] [address] Phone [phone] Care Team Providers Care Wholesale Account Manager Name Role Phone Ubaldo Falk MD Primary Care Provider +1- [phone] Reason for Visit * Reason Onset Date Comments Medication Refill 09/23/2024 Encounter Details Date Type Department Care Team (Late st Contact Info) Description 09/23/2024 [facility] [place] [address] [place] [address] Ubaldo Falk MD [address] [facility] [place] [address] Coronary artery disease involving [place] coronary artery of [place] heart without angina pectoris; Dyslipidemia, goal LDL below 130; Old [place] (myocardial infarction) Allergies Active Allergy Reactions Criticality Noted Date Comments Isosorbide Nitrate 07/30/2023 Severe Mirgrains documented as of this encounter (statuses as of 09/25/2024) Medications Sucralfate 1 GM Oral Tablet (Carafate) Take 1 Tablet by mouth 4 times a day before meals and at bedtime. 07/12/20 23 Active Nitroglycerin 0.4 MG Sublingual Tablet Sublingual (Nitrostat)Indicat ions:Coronary artery disease involving [place] coronary artery of [place] heart without angina pectoris place 1 tablet under the tongue if needed every 5 minutes for chest pain for 3 doses IF NO RELIEF AFTER THIRD DOSE CALL 928. 08 Tablet 11 08/30/20 23 Active Additional Information [...] Hour (toPROL XL)Indications:Cor onary artery disease involving [place] coronary artery of [place] heart without angina pectoris,Ischemic cardiomyopathy,Dys lipidemia, goal [...] Oral Tablet (Zetia)Indications :Coronary artery disease involving [place] coronary artery of [place] heart without angina pectoris,Dyslipide fredy, goal LDL below 130,Old [place] (myocardial infarction) Take 1 Tablet by mouth at bedtime. 90 Tablet 3 09/25/20 24 Active Pantoprazole Sodium 40 MG Oral Tablet Delayed Release (Protonix) Take 1 Tablet by mouth in the morning. 90 Tablet 3 09/25/20 24 Active Sertraline HCl 100 MG Oral Tablet (Zoloft) Take 1 Tablet by mouth in the morning. 90 Tablet 3 09/25/20 24 Active Ezetimibe 10 MG Oral Tablet (Zetia)Indications :Coronary artery disease involving [place] coronary artery of [place] heart without angina pectoris,Dyslipide fredy, goal LDL below 130,Old [place] (myocardial infarction) take 1 tablet by mouth [...] ase with esophagitis without hemorrhage 12/16/2020 [place] (myocardial infarction) 06/27/2018 Coronary artery disease of n ative artery of [place] heart with stable angina pectoris 06/27/2018 History [...] screening test 08/10/2014 7 INFORMATION 07/11/2014 03/24/2018 Overview (08/20/2014): 10 [...] encounter Miscellaneous Notes * Telephone Encounter - Reymundo Bass [facility] - 09/25/2024 11:28 AM ESTSigned Prescriptions: Disp Refills Ezetimibe 10 MG Oral Tablet (Zetia) 90 Tab*3 Sig: Take 1 Tabletby mouth at bedtime.Authorizing Provider: UBALDO FALK User: REYMUNDO BASS Pantoprazole Sodium 40 MG Oral Tablet Sophia*90 Tab*3 Sig: Take 1 Tablet by mouth in the morning.Authorizing Provider: UBALDO FALK User: REYMUNDO BASS Sertraline HCl 100 MG Oral Tablet (Zoloft) 90 Tab*3 Sig: Take 1 Tablet by mouth in the morning.Authorizing Provider: UBALDO FALK User: REYMUNDO BASS documented in this encounter Plan of Treatment Upcoming Encounters Date Type Department Care Team (Late st Contact Info) Description 11/10/2024 12:00 PM EST Imaging Radiology [address] [facility] [place] [address] 12/08/2024 1:00 PM EST Office Visit Gastroenterology, [facility] [address] [facility] [place] [address] Taylor Boyer CRNP [address] [facility] [place] [address] Scheduled Procedures Name Priority Associated Diagnoses Date/Ti me ESOPHAGOGASTRODUODENOSCOPY ( EGD), FLEXIBLE, TRANSORAL, DIAGNOSTIC Recall 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 COLONOSCOPY FLEXIBLE PROXIMAL DIAGNOSTIC Recall History of colonic polyps Health Maintenance Due Date Last Done Comments DISCUSS TOBACCO CESSATION (REFER TO SMARTSET #9044) 1970 Pneumococcal Vaccine: Pediatrics (0 to 5 [...] this encounter Medical Devices Implanted Type Area Rental Manager Device Identifier Shelf Expiration Date Model / Serial / Lot Stent Panc Sgl Pigtail [id number] - [id number] Implanted:Qty: 1 on 06/28/2024 by Kike Gross DO at ENDOSCOPY [facility] N/A: Stomach COOK : HARRISON THORNTON 04/12/2026 [id number] / / [id number] documented as of this encounter Visit Diagnoses Diagnosis Coronary artery disease involving [place] coronary artery of [place] heart without angina pectoris Dyslipidemia, goal LDL below 130 Other and unspecified hyperlipidemia [place] (myocardial infarction) Old myocardial infarction documented in this encounter Advance Directives * Full Code (Latest Code Status on File) Date Activated Date Inactivated Comments 08/14/2022 1:00 AM 08/17/2022 2:38 PM This order r eflects the patients wishes and were consensually agreed upon. Question Answer Comments Discussion of Advance Directives occurred with: Patient Care Teams Wholesale Account Manager Relationship Specialty Start Date End Date Ubaldo Falk MD [address] [facility] [address] PCP - General Family Medicine 03/24/18 documented as of this encounter
--- OUTSIDE RECORDS SUMMARY | 2024-10-03 20:26 | External Medical Summary | Summary of Care ---
Author Name Unknown Organization [facility] Address [address] [facility] [place] [address] Phone [phone] Care Team Providers Care Petroleum Engineer Name Role Phone Wade Bragg MD Primary Care Provider [phone]- [phone] Reason for Referral * Precert (Within 10 days (routine)) - Pending Review Specialty Diagnoses / Procedures Referred By Contac t Referred To Contact Radiology Diagnoses Chronic pancreatitis, unspecified pancreatitis type (HCC) Procedures CT PANCREAS W WO IV AND W ORAL CONTRAST Kike Gross DO [address] [place] [address] Phone: tel: fax: Referral ID Status Reason Start Date Expiration Date V isits Requested Visits Authorized [id number] Pending Review 11/10/2024 999 999 Reason for Visit * Reason Onset Date Comments Test Results Biopsy 09/22/2024 Encounter Details Date Type Department Care Team (Late st Contact Info) Description 09/22/2024 Telephone Gastroenterology, [facility] [address] [place] [address] Kike Gross DO [address] [place] [address] Test Results Biopsy Allergies Active Allergy Reactions Criticality Noted Date Comments Isosorbide Nitrate 07/30/2023 Severe Mirgrains documented as of this encounter (statuses as of 09/26/2024) Medications Sucralfate 1 GM Oral Tablet (Carafate) Take 1 Tablet by mouth 4 times a day before meals and at bedtime. 07/12/20 23 Active Nitroglycerin 0.4 MG Sublingual Tablet Sublingual (Nitrostat)Indicat ions:Coronary artery disease involving [place] coronary artery of [place] heart without angina pectoris place 1 tablet [...] Hour (toPROL XL)Indications:Cor onary artery disease involving [place] coronary artery of [place] heart without angina pectoris,Ischemic cardiomyopathy,Dys lipidemia, goal [...] Oral Tablet (Zetia)Indications :Coronary artery disease involving [place] coronary artery of [place] heart without angina pectoris,Dyslipide fredy, goal LDL [...] as of this encounter (statuses as of 09/26/2024) Active Problems Problem Noted Date Diagnosed Date Bradycardia 04/20/2024 Ischemic cardiomyopathy 06/22/2023 NSVT (nonsustained ventricular tachycardia) 06/[address] elevation myocardial infarction (S ANT) 06/22/2023 HFrEF (heart failure with reduced ejection fract ion) 06/22/2023 S/P angioplasty with stent 05/28/2023 Gastroesophageal reflux dise ase with esophagitis without hemorrhage 12/16/2020 Old [place] (myocardial infarction) 06/27/2018 Coronary artery disease of n ative artery of n[place] heart with stable angina pectoris 06/27/2018 History of acute pancreatitis 06/27/2018 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 Please call patient back on mobile number listed in chart. * Telephone Encounter - Jannet Quach OSA - 09/25/2024 4:17 PM EST m NAKIA Martinez 09/25/2024 4:17 PM * Telephone [...] Description 11/10/2024 12:00 PM EST Imaging Radiology [address] [facility] [place] [address] 12/08/2024 1:00 PM EST Office Visit Gastroenterology, [facility] [address] [facility] [place] [address] Taylor Boyer CRNP [address] [facility] [place] [address] Scheduled Orders Name Type Priority Associated Diagnoses [...] Comments DISCUSS TOBACCO CESSATION (REFER TO SMARTSET #2715) 1970 Pneumococcal Vaccine: Pediatrics (0 to 5 [...] this encounter Medical Devices Implanted Type Area Loading Checker Device Identifier Shelf Expiration Date Model / Serial / Lot Stent Panc Sgl Pigtail [id number] - [id number] Implanted:Qty: 1 on 06/28/2024 by Kike Gross DO at ENDOSCOPY [facility] N/A: Stomach COOK : HARRISON THORNTON 04/12/2026 [id number] / / [id number] documented as of this encounter Visit Diagnoses [...] Advance Directives occurred with: Patient Care Teams Petroleum Engineer Relationship Specialty Start Date End Date Wade Bragg MD [address] [facility] [place] [place] [address] PCP - General Family Medicine 03/24/18 documented as of this encounter
--- OUTSIDE RECORDS SUMMARY | 2024-10-03 20:26 | External Medical Summary | Summary of Care ---
Author Name Unknown Organization [facility] Address [address] [facility] [place] [address] Phone [phone] Care Team Providers Care Director Of Agronomy Name Role Phone Wade Bragg MD Primary Care Provider +1- [phone] Reason for Referral * Precert (Within 10 days (routine)) - Pending Review Specialty Diagnoses / Procedures Referred By Contac t Referred To Contact Radiology Diagnoses Chronic pancreatitis, unspecified pancreatitis type (HCC) Procedures CT PANCREAS W WO IV AND W ORAL CONTRAST Kike Gross DO [address] [place] [address] Phone: tel: fax: Referral ID Status Reason Start Date Expiration Date V isits Requested Visits Authorized [id number] Pending Review 11/10/2024 999 999 Reason for Visit * Reason Onset Date Comments Test Results Biopsy 09/22/2024 Encounter Details Date Type Department Care Team (Late st Contact Info) Description 09/22/2024 Telephone Gastroenterology, [facility] [address] [place] [address] Kike Gross DO [address] [place] [address] Test Results Biopsy Allergies Active Allergy Reactions Criticality Noted Date Comments Isosorbide Nitrate 07/30/2023 Severe Mirgrains documented as of this encounter (statuses as of 09/22/2024) Medications Sucralfate 1 GM Oral Tablet (Carafate) Take 1 Tablet by mouth 4 times a day before meals and at bedtime. 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,Dyslipide fredy, goal LDL below 130,Old [place] (myocardial infarction) [...] Tablet Sublingual (Nitrostat)Indicat ions:Coronary artery disease involving galena coronary artery of [...] Hour (toPROL XL)Indications:Cor onary artery disease involving gal[place] coronary artery of galena heart without angina pectoris,Ischemic cardiomyopathy,Dys lipidemia, goal [...] [place] (myocardial infarction) 06/27/2018 Coronary artery disease of [...] 12/08/2024 1:00 PM EST Office Visit Gastroenterology, [facility] [address] [place] [address] Talyor Boyer CRNP [address] [place] [address] Scheduled Orders Name Type Priority Associated Diagnoses [...] Comments DISCUSS TOBACCO CESSATION (REFER TO SMARTSET #[id number]) 1970 Pneumococcal Vaccine: Pediatrics (0 to 5 [...] this encounter Medical Devices Implanted Type Area Retail Sales Professional Device Identifier Shelf Expiration Date Model / Serial / Lot Stent Panc Sgl Pigtail [id number] - [id number] Implanted:Qty: 1 on 06/28/2024 by Kike Gross DO at ENDOSCOPY [facility] N/A: Stomach NORBERTO : HARRISON THORNTON 04/12/2026 [id number] / / [id number] documented as of this encounter Visit Diagnoses [...] Advance Directives occurred with: Patient Care Teams Director Of Agronomy Relationship Specialty Start Date End Date Wade Bragg MD [address] [facility] [place] [address] PCP - General Family Medicine 03/24/18 documented as of this encounter
--- OUTSIDE RECORDS SUMMARY | 2024-10-03 20:26 | External Medical Summary | Summary of Care ---
Author Name Unknown Organization [facility] Address [address] [facility] [place] [address] Phone [phone] Care Team Providers Care Doctor Osteopathic Name Role Phone Wade Bragg MD Primary Care Provider +1- [phone] Reason for Referral * Precert (Within 10 days (routine)) - Pending Review Specialty Diagnoses / Procedures Referred By Contac t Referred To Contact Radiology Diagnoses Chronic pancreatitis, unspecified pancreatitis type (HCC) Procedures CT PANCREAS W WO IV AND W ORAL CONTRAST Kike Gross DO [address] [place] [address] Phone: tel: fax: Referral ID Status Reason Start Date Expiration Date V isits Requested Visits Authorized [id number] Pending Review 11/10/2024 999 999 Reason for Visit * Reason Onset Date Comments Test Results Biopsy 09/22/2024 Encounter Details Date Type Department Care Team (Late st Contact Info) Description 09/22/2024 Telephone Gastroenterology, [facility] [address] [place] [address] Kike Gross DO [address] [place] [address] Test Results Biopsy Allergies Active Allergy Reactions Criticality Noted Date Comments Isosorbide Nitrate 07/30/2023 Severe Mirgrains documented as of this encounter (statuses as of 09/22/2024) Medications Sucralfate 1 GM Oral Tablet (Carafate) Take 1 Tablet by mouth 4 times a day before meals and at bedtime. 07/12/20 23 Active Ezetimibe 10 MG Oral Tablet (Zetia)Indications :Coronary artery disease involving [place] coronary artery of [place] heart without angina pectoris,Dyslipide fredy, goal LDL below 130,Old [place] (myocardial infarction) [...] Tablet Sublingual (Nitrostat)Indicat ions:Coronary artery disease involving [place] coronary artery of [place] heart without angina pectoris place 1 tablet [...] Hour (toPROL XL)Indications:Cor onary artery disease involving [place] coronary artery of [place] heart without angina pectoris,Ischemic cardiomyopathy,Dys lipidemia, goal [...] artery disease of n ative artery of [place] heart with stable angina pectoris 06/27/2018 History [...] encounter Miscellaneous Notes * Telephone Encounter - Benedict Benavides LPN [...] 12/08/2024 1:00 PM EST Office Visit Gastroenterology, [facility] [address] [place] [address] Taylor Boyer CRNP [address] [place] [address] Scheduled Orders Name Type Priority Associated Diagnoses [...] Comments DISCUSS TOBACCO CESSATION (REFER TO SMARTSET #8941) 1970 Pneumococcal Vaccine: Pediatrics (0 to 5 [...] this encounter Medical Devices Implanted Type Area Internet Marketing Manager Device Identifier Shelf Expiration Date Model / Serial / Lot Stent Panc Sgl Pigtail [id number] - [id number] Implanted:Qty: 1 on 06/28/2024 by Kike Gross DO at ENDOSCOPY [facility] N/A: Stomach COOK : HARRISON THORNTON 04/12/2026 [id number] / / [id number] documented as of this encounter Visit Diagnoses [...] Advance Directives occurred with: Patient Care Teams Doctor Osteopathic Relationship Specialty Start Date End Date Wade Bragg MD [address] [facility] [place] [address] PCP - General Family Medicine 03/24/18 documented as of this encounter
--- OUTSIDE RECORDS SUMMARY | 2024-10-03 20:26 | External Medical Summary | Summary of Care ---
Author Name Unknown Organization [facility] Address [address] [facility] [address] Phone [phone] Care Team Providers Care Bench Chemist Name Role Phone Wade Bragg MD Primary Care Provider [phone] Reason for Visit * Auth/Cert Specialty Diagnoses / Procedures Referred By Sid jaramillo Referred To Contact Diagnoses Other chronic pancreatitis (HCC) Other chronic pancreatitis (HCC) [K86.1] Procedures EGD, W/ENDOSCOPIC US ERCP, DIAGNOSTIC, SPECIMEN COLLECTION ESOPHAGOGASTRODUODENOSCOPY (EGD), FLEXIBLE, TRANSORAL, ENDOSCOPIC ULTRASOUND ENDOSCOPIC RETROGRADE CHOLANGIOPANCREATOGRAPHY (ERCP) DIAGNOSTIC Kike Gross DO [address] [place] [id number] Phone: tel: fax: ENDO OSS, Endoscopy Room [facility] [address] [place] [address] Phone: tel: Referral ID Status Reason Start Date Expiration Date Visits Re quested Visits Authorized [id number] Encounter Details Date Type Department Care Team (Latest Contact Info) Description 2024 10:21 AM EST - 2024 1:09 PM EST Hospital Encounter ENDO [facility], Endoscopy Room [facility] [address] [place] [phone] Kike Gross DO [address] [place] [id number] Upper Endoscopic US Discharge Disposition: Home - Self Care Allergies Active Allergy Reactions Criticality Noted Date Comments Isosorbide Nitrate 07/30/2023 Severe Mirgrains documented as of this encounter (statuses as of 09/21/2024) Medications Sucralfate 1 GM Oral Tablet (Carafate) Take 1 Tablet by mouth 4 times a day before meals and at bedtime. Active Ezetimibe 10 MG Oral Tablet (Zetia)Indication s:Coronary artery disease involving ogl[place] sioux coronary artery of [place] si[place] heart without angina pectoris,Dyslipid emia, goal LDL below 130,Old LA (myocardial infarction) take 1 tablet by mouth every morning 90 Tablet 3 Active Additional Information Patient taking differently:10 mg OralHS, (No instructions reported), Reported on 2024 Pantoprazole Sodium 40 MG Oral Tablet Delayed Release (Protonix) take 1 tablet by mouth every morning 90 Tablet 3 Active Additional Information Patient taking differently:40 mg OralBID (.AM/PM), (No instructions reported), Reported on 2024 Nitroglycerin 0.4 MG Sublingual Tablet Sublingual (Nitrostat)Indica tions:Coronary artery disease involving [place] si[place] coronary artery of [place] heart without angina pectoris place 1 tablet under the tongue if needed every 5 minutes for chest pain for 3 doses IF NO RELIEF AFTER THIRD DOSE CALL 911. 25 Tablet 11 Active Additional Information Patient not taking.Reported on 09/15/2024 Magnesium Oxide (Antacid) 400 MG Oral Tablet take 1 tablet by mouth IN THE MORNING 90 Tablet 3 023 Active Sertraline HCl 100 MG Oral Tablet (Zoloft) Take 1 Tablet by mouth in the morning. 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 180 Tablet 3 024 Active Losartan Potassium 25 MG Oral Tablet (Cozaar) Take 0.5 Tablets by mouth daily. 34 Tablet 11 024 Active Ondansetron 4 MG Oral Tablet Disintegrating (Zofran) Place 1 Tablet on tongue every 8 hours as needed for Nausea. dissolve on tongue. 30 Tablet 2 024 Active Brilinta 90 MG Oral Tablet (Ticagrelor)Indic ations:NSTEMI (non-ST elevation myocardial infarction) (HCC) TAKE 1 TABLET BY MOUTH EVERY DAY IN THE MORNING AND BEFORE BEDTIME 60 Tablet 11 024 Active Ciprofloxacin HCl 500 MG Oral Tablet (Cipro) Take 1 Tablet by mouth in the morning and 1 Tablet before bedtime. 10 Tablet 024 Active Dicyclomine HCl 10 MG Oral Capsule (Bentyl) take 1 capsule by mouth twice a day if needed for abdominal pain 60 Capsule 5 023 2023 Discontinued Ciprofloxacin HCl 500 MG Oral Tablet (Cipro) Take 1 Tablet by mouth in the morning and 1 Tablet before bedtime. 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 06/27/2018 History of acute pancreatitis 06/27/2018 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 Dyslipidemia, goal LDL below 70 09/18/2013 Generalized anxiety disorder 03/09/2013 Tobacco use disorder 01/03/2013 documented as of this encounter (statuses as of 09/21/2024) Resolved Problems Problem Noted Date Diagnosed Date Resolved Date Acute ST elevation myocardia l infarction (STEMI) 05/28/2023 10/03/2023 Acute pancreatitis 08/13/2022 INFORMATION 05/11/2017 03/24/2018 Overview (06/02/2017): 10 year [...] as of this encounter (statuses as of 09/21/2024) Immunizations Name Administration Dates Next Due Hepatitis [...] PM EDT documented as of this encounter Last Filed Vital Signs Vital Sign Reading Time Taken Comments Blood Pressure 146/84 2024 1:01 PM EST Pulse 62 2024 1:01 PM EST Temperature 36 C (96.8 F) 2024 11:53 AM EST Respiratory Rate 16 2024 1:01 PM EST Oxygen Saturation 98% 2024 1:01 PM EST Inhaled Oxygen Concentration - - Weight 57.2 kg (126 lb) 2024 10:25 AM EST Height 165.1 cm (5' 5") 2024 10:25 AM EST Body Mass Index 20.97 2024 10:25 AM EST documented in this encounter Progress Notes * [facility] - 2024 12:02 PM EST PHARMACY DISCHARGE MEDICATION RECONCILIATION REVIEW [facility] [place] [address] [place] [phone] Name: Oc Cazares Location: ENDO [facility]/Endo Date: 2024 Time: 12:01 PM This discharge medication reconciliation was reviewed by a pharmacist and had the following interventions made: Number of medications added: 12 The discharge medication reconciliation has been updated and is complete and ready for discharge. documented in this encounter H&P Notes * Kike Gross DO - 2024 11:11 AM EST Endoscopy Pre-Procedure Assessment Name: Oc Cazares Date: 2024 Time: 11:11 AM Procedure(s): Endoscopic Ultrasound; with Indication(s) of evaluation and [...] Admission medications Medication Sig Last Dose Discont. Brilinta 90 MG Oral Tablet (Ticagrelor) TAKE 1 TABLET BY MOUTH EVERY DAY IN THE MORNING AND BEFORE BEDTIME Past Week Ondansetron 4 MG Oral Tablet Disintegrating (Zofran) Place 1 Tablet on tongue every 8 hours as needed for Nausea. dissolve on tongue. Past Week Losartan Potassium 25 MG Oral Tablet (Cozaar) Take 0.5 Tablets by mouth daily. 09/19/2024 Aspirin 81 MG Oral Tablet Delayed Release (Aspirin Low Dose) Take 1 tablet by mouth every morning 2024 Famotidine 40 MG Oral Tablet (Pepcid) take 1 tablet by mouth BEFORE BEDTIME 09/19/2024 Metoprolol Succinate ER 25 MG Oral Tablet Extended Release 24 Hour (toPROL XL) Take 1 Tablet by mouth in the morning and 1 Tablet before bedtime. 2024 Rosuvastatin Calcium 40 MG Oral Tablet (Crestor) TAKE 1 TABLET BY MOUTH EVERY MORNING 2024 Sertraline HCl 100 MG Oral Tablet (Zoloft) Take 1 Tablet by mouth in the morning. 2024 Ezetimibe 10 MG Oral Tablet (Zetia) take 1 tablet by mouth every morning Patient taking differently: Take 1 Tablet by mouth at bedtime. 09/19/2024 Magnesium Oxide (Antacid) 400 MG Oral Tablet take 1 tablet by mouth IN THE MORNING Past Week Pantoprazole Sodium 40 MG Oral Tablet Delayed Release (Protonix) take 1 tablet by mouth every morning Patient taking differently: Take 1 Tablet by mouth in the morning and 1 Tablet before bedtime. 2024 Sucralfate 1 GM Oral Tablet (Carafate) Take 1 Tablet by mouth 4 times a day before meals and at bedtime. 09/19/2024 Ciprofloxacin HCl 500 MG Oral Tablet (Cipro) Take 1 Tablet by mouth in the morning and 1 Tablet before bedtime. Patient not taking: Reported on 09/15/2024 Not Taking Nitroglycerin 0.4 MG Sublingual Tablet Sublingual (Nitrostat) place 1 tablet under the tongue if needed every 5 minutes for chest pain for 3 doses IF NO RELIEF AFTER THIRD DOSE CALL 911. Patient not taking: Reported on 09/15/2024 Over 30 Days Dicyclomine HCl 10 MG Oral Capsule (Bentyl) take 1 capsule by mouth twice a day if needed for abdominal pain Patient not taking: Reported on 2024 Not Taking Review of patient's allergies indicates: Allergen Reactions Imdur [Isosorbide Nitrate] Severe Mirgrains BP 143/89 | Pulse 60 | Temp 36.6 C (97.9 F) (Tympanic) | Resp 20 | Ht 1.651 m (5' 5") | Wt 57.2kg (126 lb) | SpO2 97% | BMI 20.97 kg/m | BSA 1.62 m Physical Exam: Mental Status Examination: alert and oriented. Airway Examination: normal oropharyngeal airway and neck mobility. Respiratory Examination: poor air movement. CV Examination: regular rate and rhythm. ASA Grade: III - A patient with severe systemic disease. Abdomen: soft This patient has undergone a preprocedural evaluation. A determination has been made to proceed with the planned procedure under [facility] [place] procedural guidelines and the CMS Non-Emergent, Elective [...] anesthesia plan is to use general anesthesia. I have discussed the risks and benefits of EUS to include (not limited to) bleeding, infection, perforation, pain, aspiration, cardiac c omplications, pancreatitis and insufficient cellularity. Kike Gross DO 2024 documented in this encounter Procedure Notes * Wade Bragg MD - 2024 11:16 AM ESTAssociated Order(s): UPPER ENDOSCOPIC U/S [facility] Patient Name: Oc Cazares Procedure Date: 2024 11:16 AM Date of : 1970 Admit Type: Outpatient Note Status: Finalized Date of : 1970 Admit Type: Outpatient Age: 54 Room: Advanced Endo Gender: Male Note Status: Finalized Procedure: Upper EUS Indications: Suspected mass in pancreas on CT scan Providers: Kike Gross DO (Doctor) Referring MD: [...] by the physician, the nurse and the upper marker. The procedure was verified in the procedure [...] and oxygen saturations were monitored continuously. The Endoscope was introduced through the mouth, and advanced to the third part of duodenum. The upper EUS was accomplished without difficulty. The patient tolerated the procedure well. Findings & Specimens: ENDOSONOGRAPHIC FINDING: : Stent Evidence of a previous cholecystectomy was identified endosonographically. There was no sign of significant endosonographic abnormality in the common bile duct. The maximum diameter of the duct was 8 mm. No stones, no biliary sludge and ducts of normal caliber were identified. There was abnormal echogenicity in the visualized portion of the liver. This area was hyperechoic. Endosonographic imaging of the pancreas showed sonographic changes indicative of moderate chronic pancreatitis in the entire pancreas. The parenchyma had atrophy, hyperechoic foci with shadowing and lobularity with honeycombing. The pancreatic duct had dilated side-branches and a hyperechoic duct margin. An irregular, poorly defined mass was identified in the pancreatic head. The mass was heterogenous and calcified. The mass measured 13 mm by 12 mm in maximal cross-sectional diameter. The endosonographic borders were poorly-defined. An intact interface was seen between the mass and the adjacent structures suggesting a lack of invasion. Fine needle aspiration for cytology was performed. Color Doppler imaging was utilized prior to needle puncture to confirm a lack of significant vascular structures within the needle path. Four passes were made with the 22 gauge needle using a transduodenal approach. A stylet was used. A pattern fitter was present and performed a preliminary cytologic examination. Final cytology results are pending. Estimated blood loss was minimal. One benign-appearing lymph node was visualized in the annie hepatis region. It measured 13 mm by 11mm in maximal cross-sectional diameter. The node was triangular, hypoechoic and had poorly defined margins. There was no sign of significant endosonographic abnormality in the left adrenal gland. No adrenal gland enlargement was identified. Impression: - Evidence of a cholecystectomy. - There was no sign of significant pathology in the common bile duct. - There was abnormal echogenicity in the visualized portion of the liver. This was hyperechoic. Tissue has not been obtained. However, the endosonographic appearance is suggestive of fatty infiltration. - Endosonographic imaging of the pancreas showed sonographic changes consistent with moderate chronic pancreatitis. - A 13 mm poorly defined mass was identified in the pancreatic head. Fine needle aspiration performed. The appearance is suggestive if chronic pancreatitis. - One benign lymph node was visualized in the annie hepatis region. - Endosonographic images of the left adrenal gland were unremarkable. Recommendation: - The patient will be observed post-procedure, until all discharge criteria are met. - Advance diet as tolerated today. - Await cytology results. - Observe patient's clinical course. - Use broad spectrum antibiotics for 5 days. Kike Gross DO 2024 11:55:35 AM This report has been signed electronically. documented in this encounter Nursing Notes * Khalida Dugan RN - 2024 1:07 PM EST Patient is alert, pain free, passing flatus and tolerating po fluids prior to discharge. Patient has been visited by Dr. Kike Gross. Patient has received and demonstrates understanding of discharge instructions. Patient is transported via w/c to private auto accompanied by endo staff. * Khalida Dugan RN - 2024 12:43 PM EST Pt states his abd discomfort is now a 5, Dr Gross aware and meds ordered. Pt to restart his blood thinner tomorrow per Dr Gross. * Khalida Dugan RN - 2024 12:[address] Gross in with pt discussing results of procedure. D/C instructions given top pt, verbalized understanding. * Khalida Dugan RN - 2024 12:25 PM EST Assumed care of pt, pt resting comfortably, VSS, CM shows NSR. Pt sitting up tolerating PO fluids. Report given by Tamir MIX. * Tamir Mcclellan RN - 2024 11:53 AM EST Patient transferred to post endo s/p EGD/EUS. Patient sleeping on left side Respirations are even and unlabored on room air. NSR in the 60's on the monitor. Abdomen soft and non distended. Vital signs stable. * Oz Chung RN - 2024 11:46 AM EST See anesthesia record for medication administered during procedure. Oz Chung RN Specimen(s) and location(s) verified with physician post procedure 11:46 AM Oz Chung RN Pre cleaning of scope at the bedside started by voice intercept technician. FNA performed on pancreatic mass by Dr Gross using a [employer] 22 gauge needle. Four passes made, two sets of slides and RPMI obtained per order. fire management technician present, Pt tolerated well. * Felecia Carlos RN - 2024 10:39 AM EST The following pt discharge instructions reviewed with [...] 12/08/2024 1:00 PM EST Office Visit Gastroenterology, [facility] [address] [place] [address] Taylor Boyer CRNP [address] [place] [phone] Pending Results Name Type Priority Associated Diagnoses Date /Time CYTOLOGY Pathology Routine 2024 11: 48 AM EST Scheduled Orders Name Type Priority Associated Diagnoses Orde r Schedule CYTOLOGY Pathology Routine One Time for 1 Occurrences starting 2024 until 2024, 1 completed Scheduled Procedures Name Priority Associated Diagnoses Date/Ti me ESOPHAGOGASTRODUODENOSCOPY ( EGD), FLEXIBLE, TRANSORAL, DIAGNOSTIC Recall 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 COLONOSCOPY FLEXIBLE PROXIMAL DIAGNOSTIC Recall History of colonic polyps Health Maintenance Due Date Last Done Comments DISCUSS TOBACCO CESSATION (REFER TO SMARTSET #2037) 1970 Pneumococcal Vaccine: Pediatrics (0 to 5 [...] this encounter Medical Devices Implanted Type Area Craft Demonstrator Device Identifier Shelf Expiration Date Model / Serial / Lot Stent Panc Sgl Pigtail [id number] - [id number] Implanted:Qty: 1 on 06/28/2024 by Kike Gross DO at ENDOSCOPY [facility] N/A: Stomach COOK : HARRISON THORNTON 04/12/2026 [id number] / / [id number] documented as of this encounter Procedures Procedure Name Priority Date/Time Associated Diagnosis Comments UPPER ENDOSCOPIC U/S 2024 11:16 AM EST documented in this encounter Results * UPPER ENDOSCOPIC U/S (2024 11:16 AM EST) 2024 11:1 6 AM EST Narrative Procedure Note Wade Bragg MD - 2024 11:16 AM EST [facility] Patient Name: Oc Cazares Procedure Date: 2024 11:16 AM Date of : 1970 Admit Type: Outpatient Note Status:Finalized Date of : 1970 Admit Type: Outpatient Age: 54 Room: Advanced [facility] Gender: Male Note Status: Finalized Procedure: Upper EUS Indications: Suspected mass in pancreas on CT scan Providers: Kike Gross DO (Doctor) Referring MD: [...] by the physician, the nurse and the upper marker.The procedure was verified in the procedure room. [...] and oxygen saturations were monitored continuously. The Endoscope wasintroduced through the mouth, and advanced to the third part of duodenum. The upperEUS was accomplished without difficulty. The patient tolerated the procedurewell. Findings & Specimens: ENDOSONOGRAPHIC FINDING: : Stent Evidence of a previous cholecystectomy was identifiedendosonographically. There was no sign of significant endosonographic abnormality in thecommon bile duct. The maximum diameter of the duct was 8 mm. No stones, no biliary sludge and ductsof normal caliber were identified. There was abnormal echogenicity in the visualized portion of theliver. This area was hyperechoic. Endosonographic imaging of the pancreas showed sonographic changesindicative of moderate chronic pancreatitis in the entire pancreas. The parenchyma had atrophy,hyperechoic foci with shadowing and lobularity with honeycombing. The pancreatic duct had dilatedside-branches and a hyperechoic duct margin. An irregular, poorly defined mass was identified in the pancreatichead. The mass was heterogenous and calcified. The mass measured 13 mm by 12 mm in maximalcross-sectional diameter. The endosonographic borders were poorly-defined. An intact interface was seen between themass and the adjacent structures suggesting a lack of invasion. Fine needle aspiration for cytologywas performed. Color Doppler imaging was utilized prior to needle puncture to confirm a lack ofsignificant vascular structures within the needle path. Four passes were made with the 22 gauge needle using atransduodenal approach. A stylet was used. A pattern fitter was present and performed a preliminarycytologic examination. Final cytology results are pending. Estimated blood loss was minimal. One benign-appearing lymph node was visualized in the annie hepatisregion. It measured 13 mm by 11 mm in maximal cross-sectional diameter. The node was triangular,hypoechoic and had poorly defined margins. There was no sign of significant endosonographic abnormality in theleft adrenal gland. No adrenal gland enlargement was identified. Impression: - Evidence of a cholecystectomy. - There was no sign of significant pathology in thecommon bile duct. - There was abnormal echogenicity in the visualizedportion of the liver. This was hyperechoic. Tissue has not been obtained. However,the endosonographic appearance is suggestive of fatty infiltration. - Endosonographic imaging of the pancreas showedsonographic changes consistent with moderate chronic pancreatitis. - A 13 mm poorly defined mass was identified in thepancreatic head. Fine needle aspiration performed. The appearance is suggestiveif chronic pancreatitis. - One benign lymph node was visualized in the portahepatis region. - Endosonographic images of the left adrenal glandwere unremarkable. Recommendation: - The patient will be observed post-procedure,until all discharge criteria are met. - Advance diet as tolerated today. - Await cytology results. - Observe patient's clinical course. - Use broad spectrum antibiotics for 5 days. Kike Gross DO 2024 11:55:35 AM This report has been signed electronically. us Wade Bragg MD GASTRO UPPER Final Resu lt documented in this encounter Visit Diagnoses Diagnosis Idiopathic chronic pancreatitis (HCC)- Primary Coronary artery disease involving o[place] sioux coronary artery of [place] heart without angina pectoris Dyslipidemia, goal LDL below 130 Other and unspecified hyperlipidemia Old LA (myocardial infarction) Old myocardial infarction documented in this encounter Administered Medications Inactive Administered Medications - up to 3 most recent administrations Medication Order MAR Action Action Date Dose Rate Site hyoscyamine (Levsin) tab 0.125 mg 0.125 mg, Sublingual, ONCE, On Wed09/20/24 at 1330, For 1 doseIndications:Idiopath ic chronic pancreatitis (HCC) Given 2024 12:56 PM EST 0.125 mg Isolyte-S pH 7.4 infusion Intravenous, at 100 mL/hr, Plasma-LYTE 148, isolyte-S, and isolyte-S pH 7.4 are considered equivalent - including for MAR barcode scanning., CONTINUOUS, Starting on Wed09/20/24 at 1100, Until Wed09/20/24 at 1709, Pre-Op Continue from Pre-Op 2024 11:16 AM EST 100 mL/hr New Bag 2024 10:55 AM EST 100 mL/hr documented in this encounter Active and Recently Administered Medications Times are shown in EST. Scheduled Medication Order 09/18/2024 09/19/2024 2024 hyoscyamine (Levsin) tab 0.125 mg (COMPLETED) 0.125 mg, Sublingual, ONCE, On Wed09/20/24 at 1330, For 1 dose 1256 (Given - Provid er: Khalida Dugan RN) Continuous Medication Order 09/18/2024 09/19/2024 2024 Isolyte-S pH 7.4 infusion Intravenous, at 100 mL/hr, Plasma-LYTE 148, isolyte-S, and isolyte-S pH 7.4 are considered equivalent - including for MAR barcode scanning., CONTINUOUS, Starting on Wed09/20/24 at 1100, Until Wed09/20/24 at 1709, Pre-Op 1055 (New Bag - Prov ider: Felecia Carlos RN)1116 (Continue from Pre-Op - Provider: Ele Beavers CRNA) documented in this encounter Advance Directives * Full Code (Latest Code Status on File) Date Activated Date Inactivated Comments 08/14/2022 1:00 AM 08/17/2022 2:38 PM This order r eflects the patients wishes and were consensually agreed upon. Question Answer Comments Discussion of Advance Directives occurred with: Patient Care Teams Bench Chemist Relationship Specialty Start Date End Date Wade Bragg MD [address] [facility] [place] [id number] PCP - General Family Medicine 03/24/18 documented as of this encounter
--- OUTSIDE RECORDS SUMMARY | 2024-10-03 20:26 | External Medical Summary | Summary of Care ---
Author Name Unknown Organization [facility] Address [address] [facility] [place] [address] Phone [phone] Care Team Providers Care Mobility Specialist Name Role Phone Wade Bragg MD Primary Care Provider [phone] Reason for Referral * Precert (Within 10 days (routine)) - Pending Review Specialty Diagnoses / Procedures Referred By Contac t Referred To Contact Radiology Diagnoses Chronic pancreatitis, unspecified pancreatitis type (HCC) Procedures CT PANCREAS W WO IV AND W ORAL CONTRAST Kike Gross DO [address] [place] [address] Phone: tel: fax: Referral ID Status Reason Start Date Expiration Date V isits Requested Visits Authorized [id number] Pending Review 11/10/2024 999 999 Reason for Visit * Reason Onset Date Comments Test Results Biopsy 09/22/2024 Encounter Details Date Type Department Care Team (Late st Contact Info) Description 09/22/2024 Telephone Gastroenterology, [facility] [address] [place] [id number] Kike Gross DO [address] [place] [address] Test Results Biopsy Allergies Active Allergy Reactions Criticality Noted Date Comments Isosorbide Nitrate 07/30/2023 Severe Mirgrains documented as of this encounter (statuses as of 09/25/2024) Medications Sucralfate 1 GM Oral Tablet (Carafate) Take 1 Tablet by mouth 4 times a day before meals and at bedtime. 07/12/20 23 Active Nitroglycerin 0.4 MG Sublingual Tablet Sublingual (Nitrostat)Indicat ions:Coronary artery disease involving [place] coronary artery of [place] heart without angina pectoris place 1 tablet [...] Hour (toPROL XL)Indications:Cor onary artery disease involving [place] coronary artery of [place] heart without angina pectoris,Ischemic cardiomyopathy,Dys lipidemia, goal [...] Oral Tablet (Zetia)Indications :Coronary artery disease involving [place] coronary artery of [place] heart without angina pectoris,Dyslipide fredy, goal LDL [...] artery disease of n ative artery of [place] heart with stable angina pectoris 06/27/2018 History [...] 11/10/2024 12:00 PM EST Imaging Radiology [address] [facility] [place] [address] 12/08/2024 1:00 PM EST Office Visit Gastroenterology, [facility] [address] [facility] [place] [address] Taylor Boyer CRNP [address] [facility] [place] [address] Scheduled Orders Name Type Priority Associated Diagnoses [...] Comments DISCUSS TOBACCO CESSATION (REFER TO SMARTSET #[id number]) 1970 Pneumococcal Vaccine: Pediatrics (0 to 5 [...] this encounter Medical Devices Implanted Type Area Arch Cushion Press Operator Device Identifier Shelf Expiration Date Model / Serial / Lot Stent Panc Sgl Pigtail [id number] - [id number] Implanted:Qty: 1 on 06/28/2024 by Kike Gross DO at ENDOSCOPY [facility] N/A: Stomach COOK : HARRISON THORNTON 04/12/2026 [id number] / / [id number] documented as of this encounter Visit Diagnoses [...] Advance Directives occurred with: Patient Care Teams Mobility Specialist Relationship Specialty Start Date End Date Wade Bragg MD [address] [facility] [place] [id number] PCP - General Family Medicine 03/24/18 documented as of this encounter
[2024-10-03 20:49] LABS: Basophils % (auto) 1.3 %; Eosinophils # (auto) 0.15 K/uL (0.00-0.50); Hematocrit (blood only) 41.4 % (42.0-52.0); Hemoglobin 14.7 g/dl (14.0-18.0); Immature Granulocytes # (auto) 0.02 K/uL (0.01-0.20); Immature Granulocytes % (auto) 0.3 %; Lymphocytes # (auto) 1.85 K/uL (1.20-3.40); Lymphocytes % (auto) 24.6 %; Mean Corpuscular Hemoglobin 33.8 pg (25.0-34.0); Mean Corpuscular Hgb Conc 35.5 g/dL (32.0-36.0); Mean Corpuscular Volume 95.2 fL (80.0-100.0); Mean Platelet Volume 9.2 fL (9.4-12.4); Monocytes # (auto) 0.62 K/uL (0.11-0.59); Monocytes % (auto) 8.3 %; Neutrophils # (auto) 4.77 K/uL (1.40-6.50); Neutrophils % (auto) 63.5 %; Platelet Count 229 K/uL (130-400); RDW Coefficient of Variation 13.8 % (11.5-14.5); RDW Standard Deviation 48.3 fL (36.4-46.3); Red Blood Count 4.35 M/uL (4.70-6.10); White Blood Count 7.51 K/ul (4.8-10.8)
[2024-10-03 21:06] LABS: Albumin Globulin Ratio 1.6 (0.9-2); Albumin Level 4.6 gm/dl (3.4-5.0); BUN Creatinine Ratio 11.4 (10-20); Bilirubin,Total 0.4 mg/dl (0.2-1.0); Calcium 9.4 mg/dl (8.6-10.3); Creatinine Clr Calc Pharmacy 53.9 ml/min; Globulin 2.8 gm/dl (2.5-4.0); Potassium 3.3 mmol/L (3.5-5.1); Total Protein 7.4 gm/dl (6.0-8.3)
[2024-10-03 21:17] LABS: Troponin I High Sensitivity 2219.5 pg/ml (0-20)
[2024-10-03] MEDS ORDERED: Heparin IV Adult Wt-Based Low-Dose w/ INITIAL Bolus Protocol IV STA (21:18)
[2024-10-03] MEDS ORDERED: HEPARIN SOD (PORCINE) 1000 UNIT/ML IV ONE (21:34)
[2024-10-03] MEDS: MoRPHine SULFATE 4 MG/ML 1 ML CARP\\VIAL IV STA (21:39)
[2024-10-03] MEDS: ONDANSETRON INJ 2 MG/ML 2 ML VIAL IV STA (21:39)
[2024-10-03] MEDS: HEPARIN SOD (PORCINE) 1000 UNIT/ML IV ONE (21:43)
[2024-10-03] MEDS: HEPARIN SODIUM/DEXTROSE 25,000 UNITS/500 ML BAG IV SCH (21:44)
[2024-10-03 21:53] LABS: Adenovirus PCR Not Detected (NotDetected); Bordetella parapertussis PCR Not Detected (NotDetected); Bordetella pertussis PCR Not Detected (NotDetected); Chlamydia pneumoniae PCR Not Detected (NotDetected); Coronavirus 229E PCR Not Detected (NotDetected); Coronavirus CoV-2 (COVID19)PCR Not Detected (NotDetected); Coronavirus HKU1 PCR Not Detected (NotDetected); Coronavirus NL63 PCR DETECTED (NotDetected); Coronavirus OC43PCR Not Detected (NotDetected); Human Metapneumovirus PCR Not Detected (NotDetected); Influenza A PCR Not Detected (NotDetected); Influenza B PCR Not Detected (NotDetected); Mycoplasma pneumoniae PCR Not Detected (NotDetected); Parainfluenza Virus 1 PCR Not Detected (NotDetected); Parainfluenza Virus 2 PCR Not Detected (NotDetected); Parainfluenza Virus 3 PCR Not Detected (NotDetected); Parainfluenza Virus 4 PCR Not Detected (NotDetected); Respiratory Syncytial VirusPCR Not Detected (NotDetected); Rhinovirus/Enterovirus PCR DETECTED (NotDetected)
--- NOTE | 2024-10-03 21:58 | Emergency Department Note ---
Impression & Plan Acute non-ST elevation myocardial infarction (NSTEMI), Elevated troponin ED Provider Note NAME: SAMUEL RIDER AGE: 54 SEX: M : 1970 ARRIVES VIA: Walk-In INFORMANT: Patient, ED PROVIDER(S): Venkatesh Barrett MD CHIEF COMPLAINT: Chest pain HPI: This is a 54-year-old male with history of chronic pancreatitis, CAD status post stenting presenting for chest pain. Patient states that he had lower abdominal pain this morning which has since resolved but now has chest tightness and pain. He notes his pain is higher up in his chest similar to previous NSTEMI's he has had. He notes a discomfort, squeezing sensation. He notes some slight shortness of breath. No pleurisy. He does take Brilinta daily without missed doses. No fever or chills recently. Does mention he feels that he has had a head cold otherwise. ROS: See above HPI for pertinent positives & negatives. A total of 10 systems reviewed and were otherwise negative. PAST MEDICAL HISTORY: See Below PAST SURGICAL HISTORY: See Below FAMILY HISTORY: See Below SOCIAL HISTORY: See Below HOME MEDICATIONS: See Below ALLERGIES: See Below VITALS: See Below PHYSICAL EXAMINATION: General: resting comfortably in no acute distress Head: Normocephalic and atraumatic Eyes: Normal inspection, extraocular muscles intact Ear, nose, throat: Normal external exam Neck: Normal range of motion Respiratory: lungs clear to auscultation bilaterally Cardiovascular: Regular rate/rhythm, no murmur GI: soft, nontender, no guarding or rebound Extremities: nontender, moves all extremities Neuro: The patient awake and alert, appropriately conversive, no focal deficits, symmetric faces Skin: Warm, dry, and intact MEDICAL DECISION MAKING: This is a 54-year-old male with history of chronic pancreatitis, CAD status post tenting presenting for chest pain. Considered pancreatitis, NSTEMI, STEMI, CAD, PE, dissection. -ECG independently interpreted by me with normal sinus rhythm, rate of 65, normal axis, normal WV, normal QRS, normal QTc, no ST segment elevations consistent with STEMI criteria, hyperacute T waves in the lateral leads, similar to previous -Patient's blood work reveals no leukocytosis or anemia. Electrolytes show some slight hypokalemia. Creatinine within normal limits. LFTs within normal limits. -Troponin is significant elevated at 2219, high concern for STEMI. Patient has continued chest pain at this time. -Chest Xray independently interpreted by me showing no pneumothorax, focal opacity, or pleural effusions. -Second EKG ordered. Second ECG independently interpreted by me with normal sinus rhythm, rate of 71, normal axis, normal WV, normal QRS, normal QTc, no ST segment elevations consistent with STEMI criteria, isolated T wave inversion in lead III, overall similar to previous EKG -Patient started on IV heparin drip with bolus -Will give morphine for pain due to nitro allergy -Patient care discussed Dr. Singh, for admission -Patient is positive for coronavirus and rhinovirus. This may be related to myocarditis however with previous cardiac history high concern for NSTEMI Differential diagnosis: ACS, PE, dissection, CAD, pancreatitis Diagnostics interpreted by me: ECG: See above Cardiac Monitoring: An order was placed for continuous cardiac monitoring. The monitor shows a rate of 70 with sinus rhythm. Critical Care Note: I have personally spent 40 minutes of critical care time in the direct management of this patient. This includes bedside care, interpretation of diagnostic studies, and testing, discussion with consultants, patient, and family members, and other required patient management activities. This 40 minutes is in excess of all separately billable procedures. Past Med/Surg History Problem List (Updated 10/04/24 @ 00:17 by Venkatesh Barrett MD) Elevated troponin (Acute) Acute non-ST elevation myocardial infarction (NSTEMI) (Acute) Leukocytosis (Acute) Vomiting (Acute) Epigastric abdominal pain (Acute) Pancreatitis (Acute) Intestinal ischemia HTN (hypertension) Dyslipidemia, goal LDL below 70 ASCVD (arteriosclerotic cardiovascular disease) Chest pain (Acute) Hypomagnesemia (Acute) History of insertion of pancreatic stent (Acute) Elevated lipase (Acute) Acute pancreatitis (Acute) Epigastric abdominal pain (Acute) Abdominal pain (Acute) Acute on chronic pancreatitis (Acute) Abdominal pain (Acute) Epigastric abdominal pain Abdominal pain, acute (Acute) Acute pancreatitis (Acute) SVT (supraventricular tachycardia) Chest pain (Acute) Acute pancreatitis (Acute) GERD (gastroesophageal reflux disease) Chest pain (Acute) Ischemic cardiomyopathy Non-sustained ventricular tachycardia (Acute) Elevated troponin (Acute) Bradycardia (Acute) Chronic pancreatitis Sinus bradycardia Chest pain (Acute) Hematoma Tobacco abuse Recurrent pancreatitis (Acute) Non-ST elevation (NSTEMI) myocardial infarction (Acute) Acute on chronic pancreatitis Abdominal pain (Acute) Lesion of pancreas Elevated lipase Pancreatitis (Acute) Chest pain (Acute) Chest pain Acute pancreatitis (Acute) Abdominal pain, periumbilical (Acute) Anemia Hypomagnesemia Hypophosphatemia Hx laparoscopic cholecystectomy (08/22/21) Laparoscopic Cholecystectomy Dr. Davidson 08/22/2021 Grade II diastolic dysfunction Barretts esophagus Acute pancreatitis (Acute) Non-ST elevation NE (NSTEMI) (Acute) Breath shortness (Acute) DVT prophylaxis Chest pain (Acute) HLD (hyperlipidemia) RADHA (generalized anxiety disorder) CAD (coronary artery disease) (Acute) 2018-RCA stent x 2 07/2020-STEMI, s/p PCI to left circumflex with 2 MELLY. Post procedure complicated by V. fib arrest requiring defibrillation. 12/2020-NSTEMI s/p 3 Xience MELLY to the distal aspect of prior stent of the left posterior lateral branch vessel Depression GERD (gastroesophageal reflux disease) (Acute) Medical History ST elevation myocardial infarction (STEMI) COVID-29 Oct 2021 Mobitz type 2 second degree atrioventricular block Tobacco abuse Splenic infarct Surgical History History of endoscopic retrograde cholangiopancreatography x2 (08/31, 09/30) History of vasectomy Family History Mother Gallbladder disease Sister Gallbladder disease Other Diabetes Stroke Denies family history of Pancreatic disease Social History Smoking Status: Current every day smoker Tobacco Type: Cigarettes Cigarettes Per Day: 1/2 pk per day; Second Hand Exposure: No; Do You Dip or Chew Tobacco: No; Hx Alcohol Use: No Hx Substance Use: No Preferred Language: Sinhala Communication Ability: Effective 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 Required: No Beliefs That Will Affect Care: None marital status: Single Current Living Situation: Alone current occupational status: employed Feels Safe at Home: Yes Assistive Devices: None Allergies Allergies Allergy/AdvReac Type Severity Reaction Status Date / Time isosorbide [From Imdur] AdvReac Severe severe Verified 06/30/24 15:00 migraine Home Meds Home Medications Medication Instructions Recorded Confirmed aspirin 81 mg tablet,delayed 81 mg PO DAILY 06/25/24 10/03/24 release ezetimibe 10 mg tablet 10 mg PO DAILY 06/25/24 10/03/24 famotidine 40 mg tablet 40 mg PO HS 06/25/24 10/03/24 losartan 25 mg tablet 12.5 mg PO DAILY 06/25/24 10/03/24 magnesium oxide 400 mg (241.3 mg 400 mg PO DAILY 06/25/24 10/03/24 magnesium) tablet metoprolol succinate 25 mg 25 mg PO BID 06/25/24 10/03/24 tablet,extended release 24 hr pantoprazole 40 mg tablet,delayed 40 mg PO BID 06/25/24 10/03/24 release rosuvastatin 40 mg tablet 40 mg PO DAILY 06/25/24 10/03/24 sertraline 100 mg tablet 100 mg PO DAILY 06/25/24 10/03/24 ticagrelor 90 mg tablet (Brilinta) 90 mg PO BID 06/25/24 10/03/24 ciprofloxacin HCl 500 mg tablet 500 mg BID 10/03/24 10/03/24 nitroglycerin 0.4 mg sublingual 0.4 mg TID PRN Chest Pain 10/03/24 10/03/24 tablet Results & Data (ED) Vital Signs Vital Signs - 24 hr 10/03/24 20:22 10/03/24 20:36 10/03/24 20:39 Temperature 36.7 C Temperature Source Temporal Artery Scan Pulse Rate 84 73 Pulse Rate [Apical] Pulse Rhythm Regular Pulse Rhythm [Apical] Pulse Strength Normal Pulse Strength [Apical] Respiratory Rate 19 Respiratory Effort / Characteristics Non-Labored Spontaneous Respiratory Depth Normal Respiratory Pattern Regular Blood Pressure 165/112 H Blood Pressure [Right Arm] Blood Pressure Mean 129 Blood Pressure Mean [Right Arm] Blood Pressure Position Sitting Blood Pressure Position [Right Arm] Pulse Oximetry 98 98 Oxygen Delivery Method Room Air Room Air Sepsis Recent Fever Within 48 Hours No Sepsis New/Unexplained Change in Mental Status N/A Sepsis Action Taken by Nursing No Action Required 10/03/24 20:39 10/03/24 20:40 10/03/24 22:21 Temperature Temperature Source Pulse Rate 90 Pulse Rate [Apical] 76 Pulse Rhythm Regular Pulse Rhythm [Apical] Regular Pulse Strength Pulse Strength [Apical] Normal Respiratory Rate 16 16 19 Respiratory Effort / Characteristics Non-Labored Non-Labored Spontaneous Respiratory Depth Normal Normal Respiratory Pattern Regular Blood Pressure Blood Pressure [Right Arm] 151/93 H Blood Pressure Mean Blood Pressure Mean [Right Arm] 112 Blood Pressure Position Blood Pressure Position [Right Arm] Sitting Pulse Oximetry 98 97 Oxygen Delivery Method Room Air Room Air Sepsis Recent Fever Within 48 Hours Sepsis New/Unexplained Change in Mental Status Sepsis Action Taken by Nursing 10/03/24 23:00 Temperature Temperature Source Pulse Rate Pulse Rate [Apical] 70 Pulse Rhythm Pulse Rhythm [Apical] Pulse Strength Pulse Strength [Apical] Respiratory Rate 20 Respiratory Effort / Characteristics Non-Labored Respiratory Depth Normal Respiratory Pattern Regular Blood Pressure Blood Pressure [Right Arm] 115/81 Blood Pressure Mean Blood Pressure Mean [Right Arm] 92 Blood Pressure Position Blood Pressure Position [Right Arm] Pulse Oximetry 97 Oxygen Delivery Method Room Air Sepsis Recent Fever Within 48 Hours Sepsis New/Unexplained Change in Mental Status Sepsis Action Taken by Nursing Laboratory Data 10/03/24 20:34 10/03/24 20:34 Lab Results 10/03/24 10/03/24 10/03/24 Range/Units 20:34 22:15 Unknown WBC 7.51 (4.8-10.8) K/ul RBC 4.35 L (4.70-6.10) M/uL Hgb 14.7 (14.0-18.0) g/dl Hct 41.4 L (42.0-52.0) % MCV 95.2 (80.0-100.0) fL MCH 33.8 (25.0-34.0) pg MCHC 35.5 (32.0-36.0) g/dL RDW Std Deviation 48.3 H (36.4-46.3) fL RDW Coeff of Mckinley 13.8 (11.5-14.5) % Plt Count 229 (130-400) K/uL MPV 9.2 L (9.4-12.4) fL Immature Gran % (Auto) 0.3 % Neut % (Auto) 63.5 % Lymph % (Auto) 24.6 % [place] % (Auto) 8.3 % Eos % (Auto) 2.0 % Baso % (Auto) 1.3 % Neut # (Auto) 4.77 (1.40-6.50) K/uL Lymph # (Auto) 1.85 (1.20-3.40) K/uL [place] # (Auto) 0.62 H (0.11-0.59) K/uL Eos # (Auto) 0.15 (0.00-0.50) K/uL Baso # (Auto) 0.10 (0.00-0.20) K/uL Immature Gran # (Auto) 0.02 (0.01-0.20) K/uL PT 10.9 (9.0-12.0) Seconds INR 1.0 (0.9-1.1) APTT 28 (21-31) Seconds PTT Ratio 1.0 Sodium 139 (136-145) mmol/L Potassium 3.3 L (3.5-5.1) mmol/L Chloride 107 (98-107) mmol/L Carbon Dioxide 23 (21-32) mmol/L Anion Gap 9 (3-11) BUN 14 (6-23) mg/dl Creatinine 1.23 (0.6-1.4) mg/dl Est Cr Clr Drug Dosing 53.9 ml/min eGFR 69.33 BUN/Creatinine Ratio 11.4 (10-20) Glucose 104 H (70-99(Fasting)) mg/dl Calcium 9.4 (8.6-10.3) mg/dl Total Bilirubin 0.4 (0.2-1.0) mg/dl AST 24 (13-39) U/L ALT 10 (7-52) U/L Alkaline Phosphatase 55 (34-104) U/L Troponin I High Sens 2219.5 H* 2257.4 H* (0-20) pg/ml Total Protein 7.4 (6.0-8.3) gm/dl Albumin 4.6 (3.4-5.0) gm/dl Globulin 2.8 (2.5-4.0) gm/dl Albumin/Globulin Ratio 1.6 (0.9-2) Lipase 38 (11-82) U/L Adenovirus (PCR) Not Detected (NotDetected) B. pertussis DNA (PCR) Not Detected (NotDetected) B.parapertussis DNA PCR Not Detected (NotDetected) C. pneumoniae DNA (PCR) Not Detected (NotDetected) Coronavirus OC43 (PCR) Not Detected (NotDetected) Coronavirus HKU1 (PCR) Not Detected (NotDetected) Coronavirus 229E (PCR) Not Detected (NotDetected) SARS-CoV-2 (PCR) Not Detected (NotDetected) Coronavirus NL63 (PCR) DETECTED A (NotDetected) Human Metapneumovir PCR Not Detected (NotDetected) Influenza Type A (PCR) Not Detected (NotDetected) Influenza Type B (PCR) Not Detected (NotDetected) M. pneumoniae (PCR) Not Detected (NotDetected) Parainfluenza 1 (PCR) Not Detected (NotDetected) Parainfluenza 2 (PCR) Not Detected (NotDetected) Parainfluenza 3 (PCR) Not Detected (NotDetected) Parainfluenza 4 (PCR) Not Detected (NotDetected) RSV (PCR) Not Detected (NotDetected) Entero/Rhino (PCR) DETECTED A (NotDetected) Administered Medications Heparin Sodium/Dextrose (Heparin Sodium/Dextrose) 25,000 units in 500 mls @ 13 mls/hr IV .Q24H [facility]; Protocol Stop: 11/02/24 21:44 Last Admin: 10/03/24 21:44 Dose: 650 units/hr, 13 mls/hr Documented By: PEREZ Co-signed By: RANJIT Discontinued Medications Heparin Sodium (Porcine) (Heparin Sod (Porcine) 1000 Unit/Ml) 3,000 units IV NOW ONE Stop: 10/03/24 21:46 Last Admin: 10/03/24 21:43 Dose: 3,000 units Documented By: PEREZ Co-signed By: RANJIT Morphine Sulfate (Morphine Sulfate 4 Mg/Ml 1 Ml Carp\Vial) 4 mg IV NOW STA Stop: 10/03/24 21:22 Last Admin: 10/03/24 21:39 Dose: 4 mg Documented By: PEREZ Ondansetron HCl (Ondansetron Inj 2 Mg/Ml 2 Ml Vial) 4 mg IV NOW STA Stop: 10/03/24 21:22 Last Admin: 10/03/24 21:39 Dose: 4 mg Documented By: PEREZ Discharge Plan Visit Data Chief Complaint: Chest Pain Stated Complaint: ABD PAIN, CHEST TIGHTNESS, BLURRY VISION, SOB ED Provider: Venkatesh Barrett Discharge Problem: Acute non-ST elevation myocardial infarction (NSTEMI), Elevated troponin Forms Stand Alone Forms: My [facility] Prescriptions Prescriptions: No Action famotidine 40 mg tablet 40 mg PO HS sertraline 100 mg tablet 100 mg PO DAILY aspirin 81 mg tablet,delayed release (DR/EC) 81 mg PO DAILY magnesium oxide 400 mg (241.3 mg magnesium) tablet 400 mg PO DAILY pantoprazole 40 mg tablet,delayed release (DR/EC) 40 mg PO BID losartan 25 mg tablet 12.5 mg PO DAILY metoprolol succinate 25 mg tablet extended release 24 hr 25 mg PO BID ezetimibe 10 mg tablet 10 mg PO DAILY rosuvastatin 40 mg tablet 40 mg PO DAILY Brilinta 90 mg tablet 90 mg PO BID ciprofloxacin HCl 500 mg tablet 500 mg BID nitroglycerin 0.4 mg tablet, sublingual 0.4 mg TID PRN (Reason: Chest Pain) Referrals Referrals: Wade Bragg MD [Primary Care Provider] -
[2024-10-03 23:45] LABS: Partial Thromboplastin Time 28 Seconds (21-31)
[2024-10-04] LABS: Prothrombin Time 10.9 Seconds (9.0-12.0)
--- NOTE | 2024-10-04 02:15 | History & Physical Report ---
Date of Service October 04, 2024 Assessment & Plan (1) Acute non-ST elevation myocardial infarction (NSTEMI): Plan: 54-year-old male with past medical history significant for history of ST elevated W[place] status post stent, chronic systolic CHF, nonsustained ventricular tachycardia, history of bradycardia, hyperlipidemia Casanova's esophagus, ongoing tobacco abuse, generalized anxiety disorder, chronic pancreatitis presents with chest pain. Patient says around 4 PM noticed pain in the middle of the chest 8/10 by severity. No radiation. Has some nausea. Initially was feeling dizzy with tunnel vision and blurred vision but that all got resolved now. No runny nose or sore throat. No cough. No fevers. Denies shortness of breath. Has chronic abdominal pain. Chronic diarrhea. Denies any blood in the stool or black stools. Micturating okay. No rash. Currently hemodynamics are okay. Acute non-ST elevated W[place] Presents with chest pain Troponin 2219 and repeat is 2257 ER started on IV heparin which will be continued Nitropaste Continue home medication of aspirin, Brilinta, Zetia, rosuvastatin and metoprolol succinate N.p.o. Will follow serial cardiac enzymes and echo Close monitoring in the telemetry Cardiology consult in a.m. for further recommendations History of W[place] On aspirin, Brilinta, rosuvastatin, Zetia and metoprolol succinate Ongoing tobacco abuse Needs counseling Chronic systolic CHF On echo done on 08/25/2024 showed EF of 40 to 45% Echo done on 01/22/2024 showed EF of 35 to 40% On losartan, metoprolol succinate Monitor for volume overload Enterorhinovirus Coronavirus NL 63 Contact and droplet precautions Supportive care Chronic pancreatitis Follows with GI GERD Casanova's esophagus Protonix and famotidine Hypertension On losartan and metoprolol succinate Placed on Nitropaste We will monitor Hyperlipidemia On Zetia and rosuvastatin General Anxiety disorder On Zoloft DVT prophylaxis On Lovenox Disposition Telemetry Full code. History of Present Illness Chief Complaint: Chest pain Primary Care Provider: Wade Bragg MD 54-year-old male with past medical history significant for history of ST elevated WY status post stent, chronic systolic CHF, nonsustained ventricular tachycardia, history of bradycardia, hyperlipidemia Casanova's esophagus, ongoing tobacco abuse, generalized anxiety disorder, chronic pancreatitis presents with chest pain. Patient says around 4 PM noticed pain in the middle of the chest /10 by severity. No radiation. Has some nausea. Initially was feeling dizzy with tunnel vision and blurred vision but that all got resolved now. No runny nose or sore throat. No cough. No fevers. Denies shortness of breath. Has chronic abdominal pain. Chronic diarrhea. Denies any blood in the stool or black stools. Micturating okay. No rash. Currently hemodynamics are okay. Past medical history. As mentioned above Past surgical history. Colonoscopy. Cardiac cath. EGD. EGD with endoscopic ultrasound. ERCP. Vasectomy. Social history. Smokes half pack a day for last 31 years. Currently no alcohol use. No drug use. Family history. Mother had diabetes. Stroke. Father had hypertension. Maternal grandmother had mental disorder. Allergies Allergy/AdvReac Type Severity Reaction Status Date / Time isosorbide [From Imdur] AdvReac Severe severe Verified 06/30/24 15:00 migraine Home Medications Medication Instructions Recorded Confirmed Type aspirin 81 mg tablet,delayed 81 mg PO DAILY 06/25/24 10/03/24 History release ezetimibe 10 mg tablet 10 mg PO DAILY 06/25/24 10/03/24 History famotidine 40 mg tablet 40 mg PO HS 06/25/24 10/03/24 History losartan 25 mg tablet 12.5 mg PO DAILY 06/25/24 10/03/24 History magnesium oxide 400 mg (241.3 mg 400 mg PO DAILY 06/25/24 10/03/24 History magnesium) tablet metoprolol succinate 25 mg 25 mg PO BID 06/25/24 10/03/24 History tablet,extended release 24 hr pantoprazole 40 mg tablet,delayed 40 mg PO BID 06/25/24 10/03/24 History release rosuvastatin 40 mg tablet 40 mg PO DAILY 06/25/24 10/03/24 History sertraline 100 mg tablet 100 mg PO DAILY 06/25/24 10/03/24 History ticagrelor 90 mg tablet (Brilinta) 90 mg PO BID 06/25/24 10/03/24 History nitroglycerin 0.4 mg sublingual 0.4 mg TID PRN Chest Pain 10/03/24 10/03/24 History tablet Past Med/Surg History Problem List (Updated 10/04/24 @ 00:17 by Venkatesh Barrett MD) Elevated troponin (Acute) Acute non-ST elevation myocardial infarction (NSTEMI) (Acute) Leukocytosis (Acute) Vomiting (Acute) Epigastric abdominal pain (Acute) Pancreatitis (Acute) Intestinal ischemia HTN (hypertension) Dyslipidemia, goal LDL below 70 ASCVD (arteriosclerotic cardiovascular disease) Chest pain (Acute) Hypomagnesemia (Acute) History of insertion of pancreatic stent (Acute) Elevated lipase (Acute) Acute pancreatitis (Acute) Epigastric abdominal pain (Acute) Abdominal pain (Acute) Acute on chronic pancreatitis (Acute) Abdominal pain (Acute) Epigastric abdominal pain Abdominal pain, acute (Acute) Acute pancreatitis (Acute) SVT (supraventricular tachycardia) Chest pain (Acute) Acute pancreatitis (Acute) GERD (gastroesophageal reflux disease) Chest pain (Acute) Ischemic cardiomyopathy Non-sustained ventricular tachycardia (Acute) Elevated troponin (Acute) Bradycardia (Acute) Chronic pancreatitis Sinus bradycardia Chest pain (Acute) Hematoma Tobacco abuse Recurrent pancreatitis (Acute) Non-ST elevation (NSTEMI) myocardial infarction (Acute) Acute on chronic pancreatitis Abdominal pain (Acute) Lesion of pancreas Elevated lipase Pancreatitis (Acute) Chest pain (Acute) Chest pain Acute pancreatitis (Acute) Abdominal pain, periumbilical (Acute) Anemia Hypomagnesemia Hypophosphatemia Hx laparoscopic cholecystectomy (08/22/21) Laparoscopic Cholecystectomy Dr. Davidson 08/22/2021 Grade II diastolic dysfunction Barretts esophagus Acute pancreatitis (Acute) Non-ST elevation [place] (NSTEMI) (Acute) Breath shortness (Acute) DVT prophylaxis Chest pain (Acute) HLD (hyperlipidemia) RADHA (generalized anxiety disorder) CAD (coronary artery disease) (Acute) 2018-RCA stent x 2 07/2020-STEMI, s/p PCI to left circumflex with 2 MELLY. Post procedure complicated by V. fib arrest requiring defibrillation. 12/2020-NSTEMI s/p 3 Xience MELLY to the distal aspect of prior stent of the left posterior lateral branch vessel Depression GERD (gastroesophageal reflux disease) (Acute) Medical History ST elevation myocardial infarction (STEMI) COVID-29 Oct 2021 Mobitz type 2 second degree atrioventricular block Tobacco abuse Splenic infarct Surgical History History of endoscopic retrograde cholangiopancreatography x2 (08/31, 09/30) History of vasectomy Family History Mother Gallbladder disease Sister Gallbladder disease Other Diabetes Stroke Denies family history of Pancreatic disease Social History Smoking Status: Current every day smoker Tobacco Type: Cigarettes Cigarettes Per Day: 1/2 pk per day; Second Hand Exposure: No; Do You Dip or Chew Tobacco: No; Hx Alcohol Use: No Hx Substance Use: No Preferred Language: Welsh Communication Ability: Effective Case Management Rn Required: No Beliefs That Will Affect Care: None marital status: Single Current Living Situation: Alone current occupational status: employed Other Information That Helps Us Care for You: No Feels Safe at Home: Yes Safety Concerns: Feels Safe At This Time Assistive Devices: Glasses Review of Systems Review of Systems: All systems reviewed & are unremarkable except as noted in HPI & below Physical Exam Physical Exam: General- Not in distress Head- atraumatic Eyes- PERRL. ENT- oropharynx clear Neck- supple, no JVD. Lungs- clear to auscultation no wheezing or crackles Heart- regular rate and rhythm; no murmur, no gallop. Abdomen- normal bowel sounds, soft, nontender, no distension Extremities- no pretibial edema, no erythema seen. Neuro- alert, oriented PERRL, no facial palsy; no dysarthria; moves extremities Results & Data Results & Data Vital Signs (Past 12 Hours) Vital Signs Temp Pulse Pulse Resp BP BP Pulse Ox 10/04/24 01:00 67 17 130/78 96 10/04/24 00:27 71 10/03/24 23:00 70 20 115/81 97 10/03/24 22:21 76 19 151/93 H 97 10/03/24 20:40 16 10/03/24 20:39 90 16 98 10/03/24 20:39 98 10/03/24 20:36 73 10/03/24 20:22 36.7 C 84 19 165/112 H 98 O2 Del Method 10/04/24 01:00 Room Air 10/04/24 00:27 10/03/24 23:00 Room Air 10/03/24 22:21 Room Air 10/03/24 20:40 10/03/24 20:39 Room Air 10/03/24 20:39 Room Air 10/03/24 20:36 10/03/24 20:22 Room Air Diagnostic Findings Laboratory Results WBC 7.51 K/ul (4.8-10.8) 10/03/24 20:34 RBC 4.35 M/uL (4.70-6.10) L 10/03/24 20:34 Hgb 14.7 g/dl (14.0-18.0) 10/03/24 20:34 Hct 41.4 % (42.0-52.0) L 10/03/24 20:34 MCV 95.2 fL (80.0-100.0) 10/03/24 20:34 MCH 33.8 pg (25.0-34.0) 10/03/24 20:34 MCHC 35.5 g/dL (32.0-36.0) 10/03/24 20:34 RDW Std Deviation 48.3 fL (36.4-46.3) H 10/03/24 20:34 RDW Coeff of Mckinley 13.8 % (11.5-14.5) 10/03/24 20:34 Plt Count 229 K/uL (130-400) 10/03/24 20:34 MPV 9.2 fL (9.4-12.4) L 10/03/24 20:34 Immature Gran % (Auto) 0.3 % 10/03/24 20:34 Neut % (Auto) 63.5 % 10/03/24 20:34 Lymph % (Auto) 24.6 % 10/03/24 20:34 Coleman % (Auto) 8.3 % 10/03/24 20:34 Eos % (Auto) 2.0 % 10/03/24 20:34 Baso % (Auto) 1.3 % 10/03/24 20:34 Neut # (Auto) 4.77 K/uL (1.40-6.50) 10/03/24 20:34 Lymph # (Auto) 1.85 K/uL (1.20-3.40) 10/03/24 20:34 Coleman # (Auto) 0.62 K/uL (0.11-0.59) H 10/03/24 20:34 Eos # (Auto) 0.15 K/uL (0.00-0.50) 10/03/24 20:34 Baso # (Auto) 0.10 K/uL (0.00-0.20) 10/03/24 20:34 Immature Gran # (Auto) 0.02 K/uL (0.01-0.20) 10/03/24 20:34 PT 10.9 Seconds (9.0-12.0) 10/03/24 20:34 INR 1.0 (0.9-1.1) 10/03/24 20:34 APTT 28 Seconds (21-31) 10/03/24 20:34 PTT Ratio 1.0 10/03/24 20:34 Sodium 139 mmol/L (136-145) 10/03/24 20:34 Potassium 3.3 mmol/L (3.5-5.1) L 10/03/24 20:34 Chloride 107 mmol/L (98-107) 10/03/24 20:34 Carbon Dioxide 23 mmol/L (21-32) 10/03/24 20:34 Anion Gap 9 (3-11) 10/03/24 20:34 BUN 14 mg/dl (6-23) 10/03/24 20:34 Creatinine 1.23 mg/dl (0.6-1.4) 10/03/24 20:34 Est Cr Clr Drug Dosing 53.9 ml/min 10/03/24 20:34 eGFR 69.33 10/03/24 20:34 BUN/Creatinine Ratio 11.4 (10-20) 10/03/24 20:34 Glucose 104 mg/dl (70-99(Fasting)) H 10/03/24 20:34 Calcium 9.4 mg/dl (8.6-10.3) 10/03/24 20:34 Total Bilirubin 0.4 mg/dl (0.2-1.0) 10/03/24 20:34 AST 24 U/L (13-39) 10/03/24 20:34 ALT 10 U/L (7-52) 10/03/24 20:34 Alkaline Phosphatase 55 U/L (34-104) 10/03/24 20:34 Troponin I High Sens 2257.4 pg/ml (0-20) H* 10/03/24 22:15 Total Protein 7.4 gm/dl (6.0-8.3) 10/03/24 20:34 Albumin 4.6 gm/dl (3.4-5.0) 10/03/24 20:34 Globulin 2.8 gm/dl (2.5-4.0) 10/03/24 20:34 Albumin/Globulin Ratio 1.6 (0.9-2) 10/03/24 20:34 Lipase 38 U/L (11-82) 10/03/24 20:34 Adenovirus (PCR) Not Detected (NotDetected) 10/03/24 Unknown B. pertussis DNA (PCR) Not Detected (NotDetected) 10/03/24 Unknown B.parapertussis DNA PCR Not Detected (NotDetected) 10/03/24 Unknown C. pneumoniae DNA (PCR) Not Detected (NotDetected) 10/03/24 Unknown Coronavirus OC43 (PCR) Not Detected (NotDetected) 10/03/24 Unknown Coronavirus HKU1 (PCR) Not Detected (NotDetected) 10/03/24 Unknown Coronavirus 229E (PCR) Not Detected (NotDetected) 10/03/24 Unknown SARS-CoV-2 (PCR) Not Detected (NotDetected) 10/03/24 Unknown Coronavirus NL63 (PCR) DETECTED (NotDetected) A 10/03/24 Unknown Human Metapneumovir PCR Not Detected (NotDetected) 10/03/24 Unknown Influenza Type A (PCR) Not Detected (NotDetected) 10/03/24 Unknown Influenza Type B (PCR) Not Detected (NotDetected) 10/03/24 Unknown M. pneumoniae (PCR) Not Detected (NotDetected) 10/03/24 Unknown Parainfluenza 1 (PCR) Not Detected (NotDetected) 10/03/24 Unknown Parainfluenza 2 (PCR) Not Detected (NotDetected) 10/03/24 Unknown Parainfluenza 3 (PCR) Not Detected (NotDetected) 10/03/24 Unknown Parainfluenza 4 (PCR) Not Detected (NotDetected) 10/03/24 Unknown RSV (PCR) Not Detected (NotDetected) 10/03/24 Unknown Entero/Rhino (PCR) DETECTED (NotDetected) A 10/03/24 Unknown ECG Additional Comments: EKG. Normal sinus rhythm with sinus arrhythmia at rate of 65. No acute ST changes seen. No significant change was found. Code Status & VTE Plan VTE Prophylaxis Plan VTE Prophylaxis will be ordered: Yes
[2024-10-04] MEDS: MoRPHine SULFATE 2 MG/ML CARP IV STA (03:04)
[2024-10-04] MEDS ORDERED: NITROGLYCERIN SL 0.4 MG/TAB TAB SL PRN (03:12)
--- NOTE | 2024-10-04 03:15 | XRay Report ---
Exam(s): XR CXR 1 VIEW EXAM: XR Chest, 1 View CLINICAL HISTORY: Reason for exam: Chest pain, nonspecific. TECHNIQUE: Frontal view of the chest. COMPARISON: 08/24/2024 FINDINGS: Lungs: No consolidation, focal lesions or pleural effusions are visible. No pneumothorax. Heart: Unremarkable. No cardiomegaly. Mediastinum: Unremarkable. Normal mediastinal contour. Bones/joints: No acute fracture. Bilateral AC joint arthrosis. Suspect right rotator cuff insufficiency with loss of acromiohumeral distance.. IMPRESSION: No acute cardiopulmonary process. . Electronically signed by: Theresa Blevins MD, DABR 10/04/24 03:13 AM
[2024-10-04] MEDS: NITROGLYCERIN 2% OINTMENT 30GM TUBE EXT SCH (04:49)
[2024-10-04 06:09] LABS: Basophils # (auto) 0.08 K/uL (0.00-0.20); Basophils % (auto) 1.7 %; Eosinophils # (auto) 0.13 K/uL (0.00-0.50); Eosinophils % (auto) 2.7 %; Hematocrit (blood only) 39.2 % (42.0-52.0); Hemoglobin 13.7 g/dl (14.0-18.0); Immature Granulocytes # (auto) 0.01 K/uL (0.01-0.20); Immature Granulocytes % (auto) 0.2 %; Lymphocytes # (auto) 1.34 K/uL (1.20-3.40); Lymphocytes % (auto) 27.7 %; Mean Corpuscular Hemoglobin 33.3 pg (25.0-34.0); Mean Corpuscular Hgb Conc 34.9 g/dL (32.0-36.0); Mean Corpuscular Volume 95.4 fL (80.0-100.0); Mean Platelet Volume 9.4 fL (9.4-12.4); Monocytes # (auto) 0.33 K/uL (0.11-0.59); Monocytes % (auto) 6.8 %; Neutrophils # (auto) 2.95 K/uL (1.40-6.50); Neutrophils % (auto) 60.9 %; Platelet Count 201 K/uL (130-400); RDW Coefficient of Variation 13.4 % (11.5-14.5); RDW Standard Deviation 47.5 fL (36.4-46.3); Red Blood Count 4.11 M/uL (4.70-6.10); White Blood Count 4.84 K/ul (4.8-10.8)
[2024-10-04 06:23] LABS: BUN Creatinine Ratio 12.9 (10-20); Creatinine Clr Calc Pharmacy 68.9 ml/min; Magnesium 1.8 mg/dl (1.7-2.4); Potassium 3.8 mmol/L (3.5-5.1)
[2024-10-04 06:31] LABS: Troponin I High Sensitivity 1852.6 pg/ml (0-20)
[2024-10-04] MEDS: ROSUVASTATIN CALCIUM 20 MG TAB PO SCH (08:07)
[2024-10-04] MEDS: LOSARTAN POTASSIUM 25 MG TAB PO SCH (08:07)
[2024-10-04] MEDS: MAGNESIUM OXIDE 400 MG TAB PO SCH (08:08)
[2024-10-04] MEDS: PANTOprazole 40 MG TAB PO SCH (08:08)
[2024-10-04] MEDS: SERTRALINE HCL 100 MG TABLET PO SCH (08:09)
[2024-10-04] MEDS: EZETIMIBE 10 MG TAB PO SCH (08:09)
[2024-10-04] MEDS: ASPIRIN 81 MG ECTAB PO SCH (08:09)
[2024-10-04] MEDS: METOPROLOL SUCC 25MG EXT REL TAB PO SCH (08:10)
[2024-10-04] MEDS: TICAGRELOR 90 MG TAB PO SCH (08:11)
--- NOTE | 2024-10-04 09:23 | Electrocardiogram Report ---
Test Reason : Blood Pressure : */* mmHG Vent. Rate : 65 BPM Atrial Rate : 65 BPM P-R Int : 116 ms QRS Dur : 88 ms QT Int : 364 ms P-R-T Axes : 74 47 55 degrees QTcB Int : 378 ms Normal sinus rhythm with sinus arrhythmia Incomplete right bundle branch block Possible Old Inferior infarct (cited on or before 20-May-2023) Abnormal ECG When compared with ECG of 11-Sep-2024 03:18, No significant change was found Confirmed by Paul Livingston ([id number]) on 10/04/2024 9:23:16 AM Referred By: REFERRED SELF Confirmed By: Paul Livingston
--- NOTE | 2024-10-04 11:18 | Cardiology Consultation ---
Date of Consultation October 04, 2024 Assessment & Plan (1) Acute non-ST elevation myocardial infarction (NSTEMI): (2) Elevated troponin: (3) Chronic pancreatitis: With chronic abdominal pain Plan Patient is a 54-year-old male with complex coronary artery disease presents now with symptoms consistent with prior angina/myocardial infarction with enzyme evidence of non-ST elevation myocardial infarction. Chronic GI complaints as in past but not significantly changed with recent endoscopies performed. Recommendations: Continue prehospital medications on guideline directed optimal therapies. Continue aspirin Brilinta as well as IV heparin initiated on presentation. Will require coronary angiography for further definition. Given anatomy complexity would recommend transfer to [facility] for procedure. Currently asymptomatic Resume diet until transfer initiated History of Present Illness Reason for Consultation: Non-ST segment elevation myocardial [facility]: Reji Lucas MD History of Present Illness Patient was seen and personally examined. 54-year-old male with complex cardiac history Premature coronary artery disease, ischemic cardiomyopathy, NYHA class I-II functional status, LVEF 35 to 40% via January 2024 resting echocardiogram, narrow QRS duration March 15 NSTEMI, severe culprit single-vessel CAD with 99% mid RCA, 40% proximal LAD, and 50% mid LAD (PCI of proximal to mid and late/mid RCA with x 2 MELLY, 3.5 x 18 mm, 3.25 x 15 mm Xience) moderate to severe mid LAD disease by IVUS, 60 to 70%, no significant ostial/proximal LAD disease October 25, 2018 Catheterization: Moderate non-obstructive coronary artery disease. 60% mid LAD (FFR 0.85). August 08, 2020 Inferior STEMI with 100% acute distal left circumflex occlusion at bifurcation with large PLB, moderate nonobstructive CAD, 50 to 60% mid LAD stenosis unchanged from 10/2018, widely patent RCA stents. Cath complicated by V-fib arrest requiring defibrillation x 1 and postarrest cardiogenic shock requiring norepinephrine. Successful PCI of PLB/distal circumflex bifurcation with 2 drug-eluting stents (2.75 x 15 mm Troy into left PLB, 2.25 x 12 mm Mariano into distal circumflex). January 01, 2021 NSTEMI, successful PCI of mid circumflex in the left PLB with x3 Xience drug-eluting stents (2.5 x 18 overlapping proximal aspect of prior stent, 2.5 x 12, 2.25 x 12 extending from distal aspect of prior stent in the left PLB; postdilated with 3.0 NC -- now at total of 5 stents at bifurcation with LPLB/distal circumflex) -Angioplasty into prior distal circumflex stent with 2.0 balloon October 10, 2022 NSTEMI, reocclusion of the previously stented circumflex into posterior lateral branch, status post successful PCI with x 1 MELLY proximally and PTCA throughout the previous stented train. Moderate disease in the LAD unchanged, previously placed RCA stent patent. Note: Given poor myocardial blush on prior study as well as current study in combination with recurrent stent thrombosis I suspect a long-term patency will be limited. There is probably some degree of acute microvascular occlusion from thrombus but also significant myocardial scarring. May 20, 2023 STEMI, Circumflex territory, thrombus of the prior stent train in the left circumflex with involvement of previously untreated large OM1. Successful PCI of the AV groove circumflex into the large trifurcating OM1 with implantation of a large caliber drug-eluting stent. Unsuccessful attempt to reopen the previously placed long stent train in the mid to distal AV groove circumflex and a branch of that vessel. August 10, 2023 Coronary angiography without new target for revascularization. Medical management recommended. Attempts were made at fixing mid circumflex at the ostium with OM 1 bifurcation which had an 80% in-stent restenosis. There was also a 95 mm stent restenosis of the distal LPL branch. Attempts at performing plain old balloon angioplasty of the lesion (which had two prior stent layers, advanced disease, no acute angle takeoff of OM1) were unsuccessful. Mid LAD has 50% stenosis Prior Cx stent is patent Nonsustained ventricular tachycardia Mild resting bradycardia Hypertension Dyslipidemia Chronic tobacco use Recurrent pancreatitis status post endoscopy, pancreatic biopsy 09/20/2024 Longstanding history of chronic pancreatitis and abdominal pain. Recent endoscopy as well as pancreatic biopsy benign. Patient presents this admission with change in symptom pattern previous abdominal pain complicated by upper chest and a back pain consistent with prior angina/myocardial infarction. Sought ER evaluation where pain was relieved with nitrates and narcotics. Troponins elevated but now trending downward. No acute EKG changes. Echocardiogram without change from prior but segmental abnormalities reflective of extensive inferior posterior infarct. LV systolic function 40% Currently chest pain has resolved. Still with mild abdominal pain chronically. No worsening shortness of breath. No tachypalpitations. No syncope or near syncope. No fevers chills or unexplained infections but does not admit to mild head congestion and rhinorrhea consistent with head cold, admission viral serology, non-COVID coronavirus. Allergies Allergy/AdvReac Type Severity Reaction Status Date / Time isosorbide [From Imdur] AdvReac Severe severe Verified 06/30/24 15:00 migraine Home Medications Medication Instructions Recorded Confirmed Type aspirin 81 mg tablet,delayed 81 mg PO DAILY 06/25/24 10/03/24 History release ezetimibe 10 mg tablet 10 mg PO DAILY 06/25/24 10/03/24 History famotidine 40 mg tablet 40 mg PO HS 06/25/24 10/03/24 History losartan 25 mg tablet 12.5 mg PO DAILY 06/25/24 10/03/24 History magnesium oxide 400 mg (241.3 mg 400 mg PO DAILY 06/25/24 10/03/24 History magnesium) tablet metoprolol succinate 25 mg 25 mg PO BID 06/25/24 10/03/24 History tablet,extended release 24 hr pantoprazole 40 mg tablet,delayed 40 mg PO BID 06/25/24 10/03/24 History release rosuvastatin 40 mg tablet 40 mg PO DAILY 06/25/24 10/03/24 History sertraline 100 mg tablet 100 mg PO DAILY 06/25/24 10/03/24 History ticagrelor 90 mg tablet (Brilinta) 90 mg PO BID 06/25/24 10/03/24 History nitroglycerin 0.4 mg sublingual 0.4 mg TID PRN Chest Pain 10/03/24 10/03/24 History tablet Patient History Medical History ST elevation myocardial infarction (STEMI) COVID-29 Oct 2021 Mobitz type 2 second degree atrioventricular block Tobacco abuse Splenic infarct Surgical History History of endoscopic retrograde cholangiopancreatography x2 (08/31, 09/30) History of vasectomy Family History Mother Gallbladder disease Sister Gallbladder disease Other Diabetes Stroke Denies family history of Pancreatic disease Social History Smoking Status: Current every day smoker Tobacco Type: Cigarettes Cigarettes Per Day: 1/2 pk per day; Second Hand Exposure: No; Do You Dip or Chew Tobacco: No; Hx Alcohol Use: No Hx Substance Use: No Preferred Language: Chinese Communication Ability: Effective Intake Rn Required: No Beliefs That Will Affect Care: None marital status: Single Current Living Situation: Alone current occupational status: employed Other Information That Helps Us Care for You: No Feels Safe at Home: Yes Safety Concerns: Feels Safe At This Time Assistive Devices: Glasses Review of Systems Review of Systems: All systems reviewed & are unremarkable except as noted in HPI & below Physical Exam Constitutional: WD/WN, vitals as above + thin; no acute distress Eyes: PERRL, conjunctivae normal, anicteric sclerae ENMT: external ear and nose normal, oropharynx normal Neck: trachea midline, no thyromegaly Respiratory: normal respiratory effort, lungs clear to auscultation Cardiovascular: RRR, no murmur, no edema Gastrointestinal (Abdomen): Inspection/Auscultation: abdomen not distended Percussion/Palpation: + abdomen tender (Mild diffuse) and abdomen soft Musculoskeletal: no cyanosis or clubbing, extremities motor strength 5/5 Results & Data Vital Signs (Past 12 Hours) Vital Signs Temp Pulse Pulse Resp BP Pulse Ox O2 Del Method 10/04/24 11:11 36.5 C 61 20 107/65 96 Room Air 10/04/24 07:27 36.6 C 58 L 19 124/74 96 Room Air 10/04/24 05:08 65 10/04/24 03:12 36.5 C 59 L 20 136/82 99 Room Air 10/04/24 02:48 66 16 131/82 98 Room Air 10/04/24 01:00 67 17 130/78 96 Room Air 10/04/24 00:27 71 Laboratory Results Laboratory Results - last 24 hr 10/03/24 10/03/24 10/03/24 20:34 22:15 Unknown WBC 7.51 RBC 4.35 L Hgb 14.7 Hct 41.4 L MCV 95.2 MCH 33.8 MCHC 35.5 RDW Std Deviation 48.3 H RDW Coeff of Mckinley 13.8 Plt Count 229 MPV 9.2 L Immature Gran % (Auto) 0.3 Neut % (Auto) 63.5 Lymph % (Auto) 24.6 Tripp % (Auto) 8.3 Eos % (Auto) 2.0 Baso % (Auto) 1.3 Neut # (Auto) 4.77 Lymph # (Auto) 1.85 Tripp # (Auto) 0.62 H Eos # (Auto) 0.15 Baso # (Auto) 0.10 Immature Gran # (Auto) 0.02 PT 10.9 INR 1.0 APTT 28 PTT Ratio 1.0 Heparin Anti-Xa, Unfract Sodium 139 Potassium 3.3 L Chloride 107 Carbon Dioxide 23 Anion Gap 9 BUN 14 Creatinine 1.23 Est Cr Clr Drug Dosing 53.9 eGFR 69.33 BUN/Creatinine Ratio 11.4 Glucose 104 H Calcium 9.4 Magnesium Total Bilirubin 0.4 AST 24 ALT 10 Alkaline Phosphatase 55 Troponin I High Sens 2219.5 H* 2257.4 H* Total Protein 7.4 Albumin 4.6 Globulin 2.8 Albumin/Globulin Ratio 1.6 Lipase 38 Adenovirus (PCR) Not Detected B. pertussis DNA (PCR) Not Detected B.parapertussis DNA PCR Not Detected C. pneumoniae DNA (PCR) Not Detected Coronavirus OC43 (PCR) Not Detected Coronavirus HKU1 (PCR) Not Detected Coronavirus 229E (PCR) Not Detected SARS-CoV-2 (PCR) Not Detected Coronavirus NL63 (PCR) DETECTED A Human Metapneumovir PCR Not Detected Influenza Type A (PCR) Not Detected Influenza Type B (PCR) Not Detected M. pneumoniae (PCR) Not Detected Parainfluenza 1 (PCR) Not Detected Parainfluenza 2 (PCR) Not Detected Parainfluenza 3 (PCR) Not Detected Parainfluenza 4 (PCR) Not Detected RSV (PCR) Not Detected Entero/Rhino (PCR) DETECTED A 10/04/24 10/04/24 05:41 10:48 WBC 4.84 RBC 4.11 L Hgb 13.7 L Hct 39.2 L MCV 95.4 MCH 33.3 MCHC 34.9 RDW Std Deviation 47.5 H RDW Coeff of Mckinley 13.4 Plt Count 201 MPV 9.4 Immature Gran % (Auto) 0.2 Neut % (Auto) 60.9 Lymph % (Auto) 27.7 Tripp % (Auto) 6.8 Eos % (Auto) 2.7 Baso % (Auto) 1.7 Neut # (Auto) 2.95 Lymph # (Auto) 1.34 Tripp # (Auto) 0.33 Eos # (Auto) 0.13 Baso # (Auto) 0.08 Immature Gran # (Auto) 0.01 PT INR APTT PTT Ratio Heparin Anti-Xa, Unfract 0.30 Sodium 139 Potassium 3.8 Chloride 111 H Carbon Dioxide 20 L Anion Gap 8 BUN 13 Creatinine 1.01 Est Cr Clr Drug Dosing 68.9 eGFR 87.83 BUN/Creatinine Ratio 12.9 Glucose 91 Calcium 9.0 Magnesium 1.8 Total Bilirubin AST ALT Alkaline Phosphatase Troponin I High Sens 1852.6 H* Pending Total Protein Albumin Globulin Albumin/Globulin Ratio Lipase Adenovirus (PCR) B. pertussis DNA (PCR) B.parapertussis DNA PCR C. pneumoniae DNA (PCR) Coronavirus OC43 (PCR) Coronavirus HKU1 (PCR) Coronavirus 229E (PCR) SARS-CoV-2 (PCR) Coronavirus NL63 (PCR) Human Metapneumovir PCR Influenza Type A (PCR) Influenza Type B (PCR) M. pneumoniae (PCR) Parainfluenza 1 (PCR) Parainfluenza 2 (PCR) Parainfluenza 3 (PCR) Parainfluenza 4 (PCR) RSV (PCR) Entero/Rhino (PCR) Diagnostic Findings Upper endoscopic ultrasound 09/20/2024 Impression: - Evidence of a cholecystectomy. - There was no sign of significant pathology in the common bile duct. - There was abnormal echogenicity in the visualized portion of the liver. This was hyperechoic. Tissue has not been obtained. However, the endosonographic appearance is suggestive of fatty infiltration. - Endosonographic imaging of the pancreas showed sonographic changes consistent with moderate chronic pancreatitis. - A 13 mm poorly defined mass was identified in the pancreatic head. Fine needle aspiration performed. The appearance is suggestive if chronic pancreatitis. - One benign lymph node was visualized in the annie hepatis region. - Endosonographic images of the left adrenal gland were unremarkable. ECG Additional Comments: Normal sinus rhythm with sinus arrhythmia, Rate 65 bpm Incomplete right bundle branch block Possible Old Inferior infarct (cited on or before 20-May-2023) Abnormal ECG When compared with ECG of 11-Sep-2024 03:18, No significant change was found
--- NOTE | 2024-10-04 13:06 | Hospitalist Progress Note ---
Date of Service October 04, 2024 Assessment & Plan (1) Acute non-ST elevation myocardial infarction (NSTEMI): Plan: 54-year-old male with past medical history significant for history of ST elevated SC status post stent, chronic systolic CHF, nonsustained ventricular tachycardia, history of bradycardia, hyperlipidemia Casanova's esophagus, ongoing tobacco abuse, generalized anxiety disorder, chronic pancreatitis presents with chest pain. Patient says around 4 PM noticed pain in the middle of the chest 8/10 by severity. No radiation. Has some nausea. Initially was feeling dizzy with tunnel vision and blurred vision but that all got resolved now. No runny nose or sore throat. No cough. No fevers. Denies shortness of breath. Has chronic abdominal pain. Chronic diarrhea. Denies any blood in the stool or black stools. Micturating okay. No rash. Currently hemodynamics are okay. NSTEMI Troponin [id number] --ECHO: Compared to prior study, no significant change. Left ventricle is normal in size. Mild concentric LVH. Large sized septal, inferior and posterior wall motion abnormality with hypokinesis to akinesis of the segments. EF 40 to 45%. No significant valvular disease. No pericardial effusion. --Currently on Nitropaste Continue aspirin, Brilinta, Zetia, rosuvastatin and metoprolol succinate Appreciate cardiology input Discussed with cardiology Dr. Marshall today: Recommends transfer to tertiary care facility for complex cardiac catheterization Accepted by cardiology Dr. Luevano at [facility] for further management History of SC On aspirin, Brilinta, rosuvastatin, Zetia and metoprolol succinate Ongoing tobacco abuse Needs counseling Chronic systolic CHF On echo done on 08/25/2024 showed EF of 40 to 45% Echo done on 01/22/2024 showed EF of 35 to 40% On losartan, metoprolol succinate Monitor for volume overload Enterorhinovirus Coronavirus NL 63 Contact and droplet precautions Supportive care Chronic pancreatitis Follows with GI GERD Casanova's esophagus Protonix and famotidine Hypertension On losartan and metoprolol succinate Placed on Nitropaste Monitor blood pressure closely Hyperlipidemia On Zetia and rosuvastatin General Anxiety disorder On Zoloft DVT prophylaxis Lovenox SQ CODE STATUS Full code Disposition [facility] Admission and Anticipated Discharge Date Admission Date: October 04, 2024 Subjective Patient is seen and examined at bedside Chest pain resolved States having a normal expectorant cough No other complaints today Denies any dyspnea, nausea, vomiting, abdominal pain Discussed with cardiology today Review of Systems Review of Systems: All systems reviewed & are unremarkable except as noted in Subjective Physical Exam Physical Exam: Physical Exam: Vitals signs as noted above General Appearance:Thin, frail, no apparent distress Head: normocephalic, Atraumatic Eyes: normal inspection, EOMI Neck: supple, Trachea midline Respiratory/Chest: Normal breath sounds, CTA, No accessory muscle use Cardiovascular: S1, S2, No murmur Abdomen/GI:Soft, Non tender, Bowel sounds present Extremities/Musculoskeletal:normal inspection, no edema Neurologic/Psych:AAOX3, grossly no focal neurological deficits Skin: normal color, warm Results & Data Results & Data Vital Signs (Past 12 Hours) Vital Signs Temp Pulse Pulse Resp BP Pulse Ox O2 Del Method 10/04/24 11:11 36.5 C 61 20 107/65 96 Room Air 10/04/24 07:27 36.6 C 58 L 19 124/74 96 Room Air 10/04/24 05:52 54 L 10/04/24 05:08 65 10/04/24 03:12 36.5 C 59 L 20 136/82 99 Room Air 10/04/24 02:48 66 16 131/82 98 Room Air Laboratory Results Short CBC 10/03/24 10/04/24 Range/Units 20:34 05:41 WBC 7.51 4.84 (4.8-10.8) K/ul Hgb 14.7 13.7 L (14.0-18.0) g/dl Hct 41.4 L 39.2 L (42.0-52.0) % Plt Count 229 201 (130-400) K/uL BMP 10/03/24 10/04/24 20:34 05:41 Sodium 139 139 Potassium 3.3 L 3.8 Chloride 107 111 H Carbon Dioxide 23 20 L BUN 14 13 Creatinine 1.23 1.01 Glucose 104 H 91 Calcium 9.4 9.0 Liver Function 10/03/24 Range/Units 20:34 Total Bilirubin 0.4 (0.2-1.0) mg/dl AST 24 (13-39) U/L ALT 10 (7-52) U/L Alkaline Phosphatase 55 (34-104) U/L Albumin 4.6 (3.4-5.0) gm/dl
--- NOTE | 2024-10-04 13:17 | Discharge Summary ---
Date of Service October 04, 2024 Admission HPI Per Admitting Provider 54-year-old male with past medical history significant for history of ST elevated DE status post stent, chronic systolic CHF, nonsustained ventricular tachycardia, history of bradycardia, hyperlipidemia Casanova's esophagus, ongoing tobacco abuse, generalized anxiety disorder, chronic pancreatitis presents with chest pain. Patient says around 4 PM noticed pain in the middle of the chest 8/10 by severity. No radiation. Has some nausea. Initially was feeling dizzy with tunnel vision and blurred vision but that all got resolved now. No runny nose or sore throat. No cough. No fevers. Denies shortness of breath. Has chronic abdominal pain. Chronic diarrhea. Denies any blood in the stool or black stools. Micturating okay. No rash. Currently hemodynamics are okay. Past medical history. As mentioned above Past surgical history. Colonoscopy. Cardiac cath. EGD. EGD with endoscopic ultrasound. ERCP. Vasectomy. Social history. Smokes half pack a day for last 31 years. Currently no alcohol use. No drug use. Family history. Mother had diabetes. Stroke. Father had hypertension. Maternal grandmother had mental disorder. Admission Exam Per Admitting Provider General- Not in distress Head- atraumatic Eyes- PERRL. ENT- oropharynx clear Neck- supple, no JVD. Lungs- clear to auscultation no wheezing or crackles Heart- regular rate and rhythm; no murmur, no gallop. Abdomen- normal bowel sounds, soft, nontender, no distension Extremities- no pretibial edema, no erythema seen. Neuro- alert, oriented PERRL, no facial palsy; no dysarthria; moves extremities Principal Diagnosis Non-ST segment elevation myocardial infarction Rhinovirus/coronavirus NL 63 infection Discharge Data Allergies Allergy/AdvReac Type Severity Reaction Status Date / Time isosorbide [From Imdur] AdvReac Severe severe Verified 06/30/24 15:00 migraine Consultations 10/03/24 21:53 ED Decision to Admit Stat 10/04/24 08:00 Consult Cardiology Routine Procedures Performed Laboratory Results WBC 4.84 K/ul (4.8-10.8) 10/04/24 05:41 RBC 4.11 M/uL (4.70-6.10) L 10/04/24 05:41 Hgb 13.7 g/dl (14.0-18.0) L 10/04/24 05:41 Hct 39.2 % (42.0-52.0) L 10/04/24 05:41 MCV 95.4 fL (80.0-100.0) 10/04/24 05:41 MCH 33.3 pg (25.0-34.0) 10/04/24 05:41 MCHC 34.9 g/dL (32.0-36.0) 10/04/24 05:41 RDW Std Deviation 47.5 fL (36.4-46.3) H 10/04/24 05:41 RDW Coeff of Mckinley 13.4 % (11.5-14.5) 10/04/24 05:41 Plt Count 201 K/uL (130-400) 10/04/24 05:41 MPV 9.4 fL (9.4-12.4) 10/04/24 05:41 Immature Gran % (Auto) 0.2 % 10/04/24 05:41 Neut % (Auto) 60.9 % 10/04/24 05:41 Lymph % (Auto) 27.7 % 10/04/24 05:41 Coles % (Auto) 6.8 % 10/04/24 05:41 Eos % (Auto) 2.7 % 10/04/24 05:41 Baso % (Auto) 1.7 % 10/04/24 05:41 Neut # (Auto) 2.95 K/uL (1.40-6.50) 10/04/24 05:41 Lymph # (Auto) 1.34 K/uL (1.20-3.40) 10/04/24 05:41 Coles # (Auto) 0.33 K/uL (0.11-0.59) 10/04/24 05:41 Eos # (Auto) 0.13 K/uL (0.00-0.50) 10/04/24 05:41 Baso # (Auto) 0.08 K/uL (0.00-0.20) 10/04/24 05:41 Immature Gran # (Auto) 0.01 K/uL (0.01-0.20) 10/04/24 05:41 PT 10.9 Seconds (9.0-12.0) 10/03/24 20:34 INR 1.0 (0.9-1.1) 10/03/24 20:34 APTT 28 Seconds (21-31) 10/03/24 20:34 PTT Ratio 1.0 10/03/24 20:34 Heparin Anti-Xa, Unfract 0.30 IU/ml (0.3-0.7) 10/04/24 05:41 Sodium 139 mmol/L (136-145) 10/04/24 05:41 Potassium 3.8 mmol/L (3.5-5.1) 10/04/24 05:41 Chloride 111 mmol/L (98-107) H 10/04/24 05:41 Carbon Dioxide 20 mmol/L (21-32) L 10/04/24 05:41 Anion Gap 8 (3-11) 10/04/24 05:41 BUN 13 mg/dl (6-23) 10/04/24 05:41 Creatinine 1.01 mg/dl (0.6-1.4) 10/04/24 05:41 Est Cr Clr Drug Dosing 68.9 ml/min 10/04/24 05:41 eGFR 87.83 10/04/24 05:41 BUN/Creatinine Ratio 12.9 (10-20) 10/04/24 05:41 Glucose 91 mg/dl (70-99(Fasting)) 10/04/24 05:41 Calcium 9.0 mg/dl (8.6-10.3) 10/04/24 05:41 Magnesium 1.8 mg/dl (1.7-2.4) 10/04/24 05:41 Total Bilirubin 0.4 mg/dl (0.2-1.0) 10/03/24 20:34 AST 24 U/L (13-39) 10/03/24 20:34 ALT 10 U/L (7-52) 10/03/24 20:34 Alkaline Phosphatase 55 U/L (34-104) 10/03/24 20:34 Troponin I High Sens 1138.2 pg/ml (0-20) H* D 10/04/24 10:48 Total Protein 7.4 gm/dl (6.0-8.3) 10/03/24 20:34 Albumin 4.6 gm/dl (3.4-5.0) 10/03/24 20:34 Globulin 2.8 gm/dl (2.5-4.0) 10/03/24 20:34 Albumin/Globulin Ratio 1.6 (0.9-2) 10/03/24 20:34 Lipase 38 U/L (11-82) 10/03/24 20:34 Adenovirus (PCR) Not Detected (NotDetected) 10/03/24 Unknown B. pertussis DNA (PCR) Not Detected (NotDetected) 10/03/24 Unknown B.parapertussis DNA PCR Not Detected (NotDetected) 10/03/24 Unknown C. pneumoniae DNA (PCR) Not Detected (NotDetected) 10/03/24 Unknown Coronavirus OC43 (PCR) Not Detected (NotDetected) 10/03/24 Unknown Coronavirus HKU1 (PCR) Not Detected (NotDetected) 10/03/24 Unknown Coronavirus 229E (PCR) Not Detected (NotDetected) 10/03/24 Unknown SARS-CoV-2 (PCR) Not Detected (NotDetected) 10/03/24 Unknown Coronavirus NL63 (PCR) DETECTED (NotDetected) A 10/03/24 Unknown Human Metapneumovir PCR Not Detected (NotDetected) 10/03/24 Unknown Influenza Type A (PCR) Not Detected (NotDetected) 10/03/24 Unknown Influenza Type B (PCR) Not Detected (NotDetected) 10/03/24 Unknown M. pneumoniae (PCR) Not Detected (NotDetected) 10/03/24 Unknown Parainfluenza 1 (PCR) Not Detected (NotDetected) 10/03/24 Unknown Parainfluenza 2 (PCR) Not Detected (NotDetected) 10/03/24 Unknown Parainfluenza 3 (PCR) Not Detected (NotDetected) 10/03/24 Unknown Parainfluenza 4 (PCR) Not Detected (NotDetected) 10/03/24 Unknown RSV (PCR) Not Detected (NotDetected) 10/03/24 Unknown Entero/Rhino (PCR) DETECTED (NotDetected) A 10/03/24 Unknown Impressions Chest X-Ray 10/03/24 20:27 Exam(s): XR CXR 1 VIEW EXAM: XR Chest, 1 View CLINICAL HISTORY: Reason for exam: Chest pain, nonspecific. TECHNIQUE: Frontal view of the chest. COMPARISON: 08/24/2024 FINDINGS: Lungs: No consolidation, focal lesions or pleural effusions are visible. No pneumothorax. Heart: Unremarkable. No cardiomegaly. Mediastinum: Unremarkable. Normal mediastinal contour. Bones/joints: No acute fracture. Bilateral AC joint arthrosis. Suspect right rotator cuff insufficiency with loss of acromiohumeral distance.. IMPRESSION: No acute cardiopulmonary process. . Electronically signed by: Theresa Blevins MD, DABR 10/04/24 03:13 AM Hospital Course (1) Acute non-ST elevation myocardial infarction (NSTEMI): 54-year-old male with past medical history significant for history of ST elevated DE status post stent, chronic systolic CHF, nonsustained ventricular tachycardia, history of bradycardia, hyperlipidemia Casanova's esophagus, ongoing tobacco abuse, generalized anxiety disorder, chronic pancreatitis presents with chest pain. Patient says around 4 PM noticed pain in the middle of the chest 8/10 by severity. No radiation. Has some nausea. Initially was feeling dizzy with tunnel vision and blurred vision but that all got resolved now. No runny nose or sore throat. No cough. No fevers. Denies shortness of breath. Has chronic abdominal pain. Chronic diarrhea. Denies any blood in the stool or black stools. Micturating okay. No rash. Currently hemodynamics are okay. NSTEMI Troponin [id number] --ECHO: Compared to prior study, no significant change. Left ventricle is normal in size. Mild concentric LVH. Large sized septal, inferior and posterior wall motion abnormality with hypokinesis to akinesis of the segments. EF 40 to 45%. No significant valvular disease. No pericardial effusion. --Currently on Nitropaste Continue aspirin, Brilinta, Zetia, rosuvastatin and metoprolol succinate Appreciate cardiology input Discussed with cardiology Dr. Marshall today: Recommends transfer to tertiary care facility for complex cardiac catheterization Accepted by cardiology Dr. Dasilva at [facility] for further management History of DE On aspirin, Brilinta, rosuvastatin, Zetia and metoprolol succinate Ongoing tobacco abuse Needs counseling Chronic systolic CHF On echo done on 08/25/2024 showed EF of 40 to 45% Echo done on 01/22/2024 showed EF of 35 to 40% On losartan, metoprolol succinate Monitor for volume overload Enterorhinovirus Coronavirus NL 63 Contact and droplet precautions Supportive care Chronic pancreatitis Follows with GI [facility] Casanova's esophagus Protonix and famotidine Hypertension On losartan and metoprolol succinate Placed on Nitropaste Monitor blood pressure closely Hyperlipidemia On Zetia and rosuvastatin General Anxiety disorder On Zoloft DVT prophylaxis Lovenox SQ CODE STATUS Full code Disposition [facility] Total Time Total Time Spent Total Time Spent (In Minutes): 49 minutes Discharge Plan Discharge Items Patient Disposition: Transfer Acute Care Hospital Reason For Visit: NSTEMI Discharge Diagnosis: Non-ST segment elevation myocardial infarction Rhinovirus/coronavirus NL 63 infection Activity: Per Instructions section Non-emergency contact: Primary Care Provider and Edging Supervisor Call non-emergency contact if: you have any medication questions, your symptoms worsen, your pain is concerning for you and you have a fever Follow-up/Referrals: Wade Bragg MD [Primary Care Provider] - Diet: Heart Healthy Addtl Attending Provider Instructions: Follow-up with cardiology Dr. Jay Dasilva at [facility] for further management. Continue IV heparin--until further recommendations from your patternmaker bench at [facility] Seek immediate medical attention if your symptoms reoccur or worsen Please take all medications as instructed on discharge list below. Please call if you have any questions or problems. You can reach a [facility] hospitalist on duty at [facility] 24 hours a day by calling [phone] Pending Studies at Discharge: No Stand-Alone Forms: My [facility] Skilled Items Patient informed of condition?: Yes DNR: No Discharge Level of Care: Other Communicable Disease: No Discharge Prognosis: Stable Lines: Peripheral IV Urinary Catheter: No Medications and DC Order Prescriptions: New Nitro-Bid 2 % Ointment 0.5 inch EXT Q6H Qty: 0 0RF Continued famotidine 40 mg tablet 40 mg PO HS sertraline 100 mg tablet 100 mg PO DAILY aspirin 81 mg tablet,delayed release (DR/EC) 81 mg PO DAILY magnesium oxide 400 mg (241.3 mg magnesium) tablet 400 mg PO DAILY pantoprazole 40 mg tablet,delayed release (DR/EC) 40 mg PO BID losartan 25 mg tablet 12.5 mg PO DAILY metoprolol succinate 25 mg tablet extended release 24 hr 25 mg PO BID ezetimibe 10 mg tablet 10 mg PO DAILY rosuvastatin 40 mg tablet 40 mg PO DAILY Brilinta 90 mg tablet 90 mg PO BID nitroglycerin 0.4 mg tablet, sublingual 0.4 mg TID PRN (Reason: Chest Pain) Discharge Orders: Discharge Order (Routine); Ordered 10/04/24 Ordered By: Reji Lucas Admission Data Admit Date/Time: 10/04/24 01:52 Attending Provider: Reji Lucas Admit Provider: Rosales Singh Primary Care Provider: Wade Bragg Other Providers: Rosales Singh; Bran Marshall
[2024-10-04] MEDS: ACETAMINOPHEN 325 MG TAB PO PRN (14:56)
[2024-10-04] MEDS: FAMOTIDINE 40 MG TABLET PO SCH (20:38)
[2024-10-05 04:37] VITALS: BP 118/76; PULSE 60; RESP 18; TEMP 98.4; O2SAT 94
[2024-10-05 04:55] LABS: BUN Creatinine Ratio 15.2 (10-20); Calcium 9.1 mg/dl (8.6-10.3); Creatinine Clr Calc Pharmacy 66.3 ml/min; Potassium 4.1 mmol/L (3.5-5.1)
[2024-10-05 05:05] LABS: ANTI-Xa, UFH(UnfractionatedHep 0.24 IU/ml (0.3-0.7)
--- NOTE | 2024-10-05 07:12 | Hospitalist Progress Note ---
Date of Service October 05, 2024 Assessment & Plan (1) Acute non-ST elevation myocardial infarction (NSTEMI): Plan: 54-year-old male with past medical history significant for history of ST elevated DC status post stent, chronic systolic CHF, nonsustained ventricular tachycardia, history of bradycardia, hyperlipidemia Casanova's esophagus, ongoing tobacco abuse, generalized anxiety disorder, chronic pancreatitis presents with chest pain. Patient says around 4 PM noticed pain in the middle of the chest 8/10 by severity. No radiation. Has some nausea. Initially was feeling dizzy with tunnel vision and blurred vision but that all got resolved now. No runny nose or sore throat. No cough. No fevers. Denies shortness of breath. Has chronic abdominal pain. Chronic diarrhea. Denies any blood in the stool or black stools. Micturating okay. No rash. Currently hemodynamics are okay. NSTEMI Troponin [id number] --ECHO: Compared to prior study, no significant change. Left ventricle is normal in size. Mild concentric LVH. Large sized septal, inferior and posterior wall motion abnormality with hypokinesis to akinesis of the segments. EF 40 to 45%. No significant valvular disease. No pericardial effusion. -- Continue Nitropaste Continue aspirin, Brilinta, Zetia, rosuvastatin and metoprolol succinate Appreciate cardiology input Discussed with cardiology Dr. Marshall today: Recommends transfer to tertiary care facility for complex cardiac catheterization Accepted by cardiology Dr. Dasilva at [facility] for further management Patient's discharge process got delayed due to transportation issues History of DC On aspirin, Brilinta, rosuvastatin, Zetia and metoprolol succinate Ongoing tobacco abuse Needs counseling Chronic systolic CHF On echo done on 08/25/2024 showed EF of 40 to 45% Echo done on 01/22/2024 showed EF of 35 to 40% On losartan, metoprolol succinate Monitor for volume overload Enterorhinovirus Coronavirus NL 63 Contact and droplet precautions Supportive care Chronic pancreatitis Follows with GI [facility]ER[facility] Casanova's esophagus Protonix and famotidine Hypertension On losartan and metoprolol succinate Placed on Nitropaste Monitor blood pressure closely Hyperlipidemia On Zetia and rosuvastatin General Anxiety disorder On Zoloft DVT prophylaxis Lovenox SQ CODE STATUS Full code Disposition [facility] for complex cardiac catheterization Admission and Anticipated Discharge Date Admission Date: October 04, 2024 Subjective Patient is seen and examined at bedside Patient states having minimal retrosternal chest pain associated with dyspnea this morning Cough much improved No other complaints Currently on IV heparin Plan to be discharged to [facility] today Physical Exam Physical Exam: Physical Exam: Vitals signs as noted above General Appearance:Thin, frail, no apparent distress Head: normocephalic, Atraumatic Eyes: normal inspection, EOMI Neck: supple, Trachea midline Respiratory/Chest: Normal breath sounds, CTA, No accessory muscle use Cardiovascular: S1, S2, No murmur Abdomen/GI:Soft, Non tender, Bowel sounds present Extremities/Musculoskeletal:normal inspection, no edema Neurologic/Psych:AAOX3, grossly no focal neurological deficits Skin: normal color, warm Results & Data Results & Data Vital Signs (Past 12 Hours) Vital Signs Temp Pulse Pulse Resp BP Pulse Ox O2 Del Method 10/05/24 04:36 36.9 C 60 18 118/76 94 Room Air 10/05/24 00:00 55 L 10/04/24 22:16 37.0 C 60 16 142/77 H 95 Room Air 10/04/24 21:20 Room Air Laboratory Results [facility] 10/05/24 04:19 Sodium 138 Potassium 4.1 Chloride 108 H Carbon Dioxide 23 BUN 16 Creatinine 1.05 Glucose 100 H Calcium 9.1
--- NOTE | 2024-10-05 12:46 | Electrocardiogram Report ---
Test Reason : Blood Pressure : */* mmHG Vent. Rate : 51 BPM Atrial Rate : 51 BPM P-R Int : 128 ms QRS Dur : 88 ms QT Int : 412 ms P-R-T Axes : 62 3 26 degrees QTcB Int : 379 ms Sinus bradycardia Inferior-posterior infarct (cited on or before 20-May-2023) Abnormal ECG When compared with ECG of 03-Oct-2024 21:30, (unconfirmed) No significant change was found Confirmed by Dariel Parada ([id number]) on 10/05/2024 12:46:43 PM Referred By: REFERRED SELF Confirmed By: Dariel Parada
--- NOTE | 2024-10-05 12:52 | Electrocardiogram Report ---
Test Reason : Blood Pressure : */* mmHG Vent. Rate : 71 BPM Atrial Rate : 71 BPM P-R Int : 116 ms QRS Dur : 90 ms QT Int : 366 ms P-R-T Axes : 73 27 22 degrees QTcB Int : 397 ms Normal sinus rhythm Inferior infarct (cited on or before 20-May-2023) Abnormal ECG When compared with ECG of 03-Oct-2024 20:30, No significant change was found Confirmed by Dariel Parada ([id number]) on 10/05/2024 12:52:08 PM Referred By: REFERRED SELF Confirmed By: Dariel Parada
== END 2024-10-05 07:55 | disposition short-term general hospital (02) | DRG 281 ==
LOC: ED 20:21 → 4W 10-04 01:52
DX: I50.22 Chronic systolic (congestive) heart failure; I25.2 Old myocardial infarction; I25.119 Atherosclerotic heart disease of native coronary artery with unspecified angina pectoris; K22.70 Barrett's esophagus without dysplasia; K21.9 Gastro-esophageal reflux disease without esophagitis; Z83.3 Family history of diabetes mellitus; K86.1 Other chronic pancreatitis; Z95.5 Presence of coronary angioplasty implant and graft; E78.5 Hyperlipidemia, unspecified; F41.1 Generalized anxiety disorder; B97.29 Other coronavirus as the cause of diseases classified elsewhere; B34.8 Other viral infections of unspecified site; I11.0 Hypertensive heart disease with heart failure; I25.5 Ischemic cardiomyopathy; Z79.82 Long term (current) use of aspirin; F17.210 Nicotine dependence, cigarettes, uncomplicated; I21.4 Non-ST elevation (NSTEMI) myocardial infarction

== ENCOUNTER 2024-12-09 16:16 | Inpatient (IN) ==
--- NOTE | 2024-12-09 17:39 | Emergency Department Note ---
Impression & Plan Acute on chronic pancreatitis, Elevated lipase, Elevated LFTs ED Provider Note Name: SAMUEL RIDER Age: 54 Sex: Male Arrives Via: Ambulance Informant: Patient ED Provider: Kasi Curry MD Chief Complaint: Epigastric pain Impression: As per impressions above Medical Decision Makin-year-old gentleman with history of recurrent pancreatitis arrives for evaluation of severe epigastric pain. Similar to previous episodes of pancreatitis. He was seen at local facility with similar pain this morning given IV narcotics and discharged to home. Pain has worsened and he arrives to this facility. He is uncomfortable on arrival. Laboratory workup obtained does reveal elevated LFTs along with elevated lipase however there is no elevated bilirubin. He has had this many times before I feel CT imaging of the on pelvis is likely of minimal benefit at this time. He is feeling better after IV narcotic, Compazine, Benadryl. Discussed over the phone with gastroenterology who agree that likely does not need transfer to advanced GI capability at this time and that fluids pain control monitoring would be optimal. I discussed this with the hospitalist and the running patient in for further management patient is comfortable with this plan. Triage/Nursing Notes reviewed by Me External Chart Review by me: I reviewed gastroenterology consult from June 2024 reviewing patient's past history. Differential:Pancreatitis, aortic pathology, PUD, biliary obstruction, cholangitis, ischemia, obstruction, multiple other pathologies considered Vital Signs: reviewed and remarkable for hypertension Interventions: Dilaudid IV, Compazine IV, Benadryl IV, normal saline bolus Labs:ED labs Reviewed by me and remarkable for elevated lipase, elevated LFTs, normal bilirubin Consults:Discussed with Dr. Kwok of gastroenterology discussed with Dr. Singh of [facility] hospitalist service who will bring in for further management Plan: Disposition:Hospitalization. Condition: Good History of Present Illness: 54-year-old gentleman with a history recurrent pancreatitis arrives for evaluation of severe epigastric abdominal pain with associated nausea. Denies any falls, trauma, injuries. States that he had an episode pretty severe this morning and was seen at [facility] where he received IV Dilaudid and had labs which showed an elevated lipase. He was feeling better thus was discharged. He states about an hour ago pain returned. Denies any change in his typical pain other than it being quite severe. No lower abdominal pain no chest pain no chest discomfort, no shortness of breath or other concerning signs or symptoms. Has not been having any vomiting, diarrhea, fevers, chills, other concerning signs or symptoms. Patient does have a stent in his pancreas. There is a plan to have it replaced at the end of this month. Past Medical History:See Below Home Medications:See Below Allergies:See Below Vitals:Blood Pressure: 147/90, Pulse 89, RR 18, T 36.6C, O2 99% on RA Physical Exam: GENERAL: Patient is uncomfortable appearing and in moderate distress. RESPIRATORY: No dyspnea. Clear to auscultation and equal bilaterally. CARDIOVASCULAR: Regular rate and rhythm.No murmur appreciated. GASTROINTESTINAL: Significant tenderness palpation over the epigastrium otherwise soft nontender abdomen without distention. EXTREMITIES: Normal motion all extremities, no cyanosis, no edema. NEUROLOGIC: Alert and oriented. No focal neurologic deficits appreciated SKIN: No rash, no jaundice, no diaphoresis. PSYCH: Appropriate GCS: 15 ED Course: Times/Reassessments: Patient much improved after initial medications. Given his second visit to ER and evidence of pancreatitis by laboratory workup agreeable to hospitalization at this time. Kasi Curry MD Past Med/Surg History Problem List (Updated 12/09/24 @ 23:33 by Kasi Curry MD) Elevated LFTs (Acute) Elevated troponin (Acute) Acute non-ST elevation myocardial infarction (NSTEMI) (Acute) Intestinal ischemia HTN (hypertension) Dyslipidemia, goal LDL below 70 ASCVD (arteriosclerotic cardiovascular disease) Chest pain (Acute) Hypomagnesemia (Acute) History of insertion of pancreatic stent (Acute) Elevated lipase (Acute) Acute pancreatitis (Acute) Epigastric abdominal pain (Acute) Abdominal pain (Acute) Acute on chronic pancreatitis (Acute) Abdominal pain (Acute) Epigastric abdominal pain Abdominal pain, acute (Acute) Acute pancreatitis (Acute) SVT (supraventricular tachycardia) Chest pain (Acute) Acute pancreatitis (Acute) GERD (gastroesophageal reflux disease) Chest pain (Acute) Ischemic cardiomyopathy Non-sustained ventricular tachycardia (Acute) Elevated troponin (Acute) Bradycardia (Acute) Chronic pancreatitis Sinus bradycardia Chest pain (Acute) Hematoma Tobacco abuse Recurrent pancreatitis (Acute) Non-ST elevation (NSTEMI) myocardial infarction (Acute) Acute on chronic pancreatitis Abdominal pain (Acute) Lesion of pancreas Elevated lipase Pancreatitis (Acute) Chest pain (Acute) Chest pain Acute pancreatitis (Acute) Abdominal pain, periumbilical (Acute) Anemia Hypomagnesemia Hypophosphatemia Hx laparoscopic cholecystectomy (08/22/21) Laparoscopic Cholecystectomy Dr. Davidson 08/22/2021 Grade II diastolic dysfunction Barretts esophagus Acute pancreatitis (Acute) Non-ST elevation [place] (NSTEMI) (Acute) Breath shortness (Acute) DVT prophylaxis Chest pain (Acute) HLD (hyperlipidemia) RADHA (generalized anxiety disorder) CAD (coronary artery disease) (Acute) 2018-RCA stent x 2 07/2020-STEMI, s/p PCI to left circumflex with 2 MELLY. Post procedure complicated by V. fib arrest requiring defibrillation. 12/2020-NSTEMI s/p 3 Xience MELLY to the distal aspect of prior stent of the left posterior lateral branch vessel Depression GERD (gastroesophageal reflux disease) (Acute) Medical History ST elevation myocardial infarction (STEMI) COVID-29 Oct 2021 Mobitz type 2 second degree atrioventricular block Tobacco abuse Splenic infarct Surgical History History of endoscopic retrograde cholangiopancreatography x2 (08/31, 09/30) History of vasectomy Family History Mother Gallbladder disease Sister Gallbladder disease Other Diabetes Stroke Denies family history of Pancreatic disease Social History (Updated 12/08/24 @ 13:56 by Cecilia Saucedo, RN) Smoking Status: Current every day smoker Tobacco Type: Cigarettes Cigarettes Per Day: 1/2 pack; Second Hand Exposure: No; Do You Dip or Chew Tobacco: No; Hx Alcohol Use: No Hx Substance Use: No Preferred Language: Mozambican Communication Ability: Effective Visual Impairment: No Limitations Hearing Ability: Normal Warp Doffer Required: No Beliefs That Will Affect Care: None marital status: Single Current Living Situation: Alone current occupational status: employed 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 [employer] Feels Safe at Home: Yes Safety Concerns: Feels Safe At This Time Assistive Devices: Glasses Allergies Allergies Allergy/AdvReac Type Severity Reaction Status Date / Time isosorbide [From Imdur] AdvReac Severe severe Verified 12/08/24 13:59 migraine Home Meds Home Medications Medication Instructions Recorded Confirmed amlodipine 5 mg tablet 5 mg PO DAILY 12/09/24 12/09/24 aspirin 81 mg tablet,delayed 81 mg PO DAILY 12/09/24 12/09/24 release ezetimibe 10 mg tablet 10 mg PO HS 12/09/24 12/09/24 famotidine 40 mg tablet 40 mg PO HS 12/09/24 12/09/24 losartan 25 mg tablet 12.5 mg PO DAILY 12/09/24 12/09/24 magnesium oxide 400 mg (241.3 mg 400 mg PO DAILY 12/09/24 12/09/24 magnesium) tablet metoprolol succinate 25 mg 25 mg PO BID 12/09/24 12/09/24 tablet,extended release 24 hr nitroglycerin 0.4 mg sublingual 0.4 mg sublingual UD 12/09/24 12/09/24 tablet pantoprazole 40 mg tablet,delayed 40 mg PO DAILY 12/09/24 12/09/24 release rosuvastatin 40 mg tablet 40 mg PO DAILY 12/09/24 12/09/24 sertraline 100 mg tablet 100 mg PO DAILY 12/09/24 12/09/24 ticagrelor 90 mg tablet (Brilinta) 90 mg PO BID 12/09/24 12/09/24 Results & Data (ED) Vital Signs Vital Signs - 24 hr 12/09/24 16:23 12/09/24 16:24 12/09/24 16:39 Temperature 36.6 C Temperature Source Oral Pulse Rate 83 89 71 Pulse Rate from SpO2 Sensor 71 Pulse Rhythm Regular Pulse Strength Normal Respiratory Rate 18 20 Respiratory Effort / Characteristics Non-Labored Respiratory Depth Normal Respiratory Pattern Regular Blood Pressure 147/90 H Blood Pressure Mean 109 Blood Pressure Position Lying Pulse Oximetry 99 97 Oxygen Delivery Method Room Air Sepsis Recent Fever Within 48 Hours No Sepsis New/Unexplained Change in Mental Status N/A Sepsis Action Taken by Nursing No Action Required 12/09/24 17:03 12/09/24 17:33 12/09/24 18:03 Temperature Temperature Source Pulse Rate 70 70 65 Pulse Rate from SpO2 Sensor 72 67 65 Pulse Rhythm Pulse Strength Respiratory Rate 29 H 25 H 30 H Respiratory Effort / Characteristics Respiratory Depth Respiratory Pattern Blood Pressure 112/81 Blood Pressure Mean 91 Blood Pressure Position Pulse Oximetry 96 99 98 Oxygen Delivery Method Sepsis Recent Fever Within 48 Hours Sepsis New/Unexplained Change in Mental Status Sepsis Action Taken by Nursing Laboratory Data 12/09/24 16:25 12/09/24 16:25 Lab Results 12/09/24 12/09/24 Range/Units 16:25 19:23 WBC 8.78 (4.8-10.8) K/ul RBC 4.25 L (4.70-6.10) M/uL Hgb 14.4 (14.0-18.0) g/dl Hct 42.1 (42.0-52.0) % MCV 99.1 (80.0-100.0) fL MCH 33.9 (25.0-34.0) pg MCHC 34.2 (32.0-36.0) g/dL RDW Std Deviation 48.3 H (36.4-46.3) fL RDW Coeff of Mckinley 13.2 (11.5-14.5) % Plt Count 264 (130-400) K/uL MPV 9.3 L (9.4-12.4) fL Immature Gran % (Auto) 0.3 % Neut % (Auto) 81.9 % Lymph % (Auto) 10.6 % Logan % (Auto) 4.2 % Eos % (Auto) 2.4 % Baso % (Auto) 0.6 % Neut # (Auto) 7.19 H (1.40-6.50) K/uL Lymph # (Auto) 0.93 L (1.20-3.40) K/uL Logan # (Auto) 0.37 (0.11-0.59) K/uL Eos # (Auto) 0.21 (0.00-0.50) K/uL Baso # (Auto) 0.05 (0.00-0.20) K/uL Immature Gran # (Auto) 0.03 (0.01-0.20) K/uL Sodium 135 L (136-145) mmol/L Potassium 4.1 (3.5-5.1) mmol/L Chloride 104 (98-107) mmol/L Carbon Dioxide 25 (21-32) mmol/L Anion Gap 6 (3-11) BUN 18 (6-23) mg/dl Creatinine 1.07 (0.6-1.4) mg/dl Est Cr Clr Drug Dosing 62.0 ml/min eGFR 81.95 BUN/Creatinine Ratio 16.8 (10-20) Glucose 90 (70-99(Fasting)) mg/dl Calcium 9.2 (8.6-10.3) mg/dl Total Bilirubin 0.7 (0.2-1.0) mg/dl AST 167 H (13-39) U/L ALT 125 H (7-52) U/L Alkaline Phosphatase 97 (34-104) U/L Total Protein 6.8 (6.0-8.3) gm/dl Albumin 4.1 (3.4-5.0) gm/dl Globulin 2.7 (2.5-4.0) gm/dl Albumin/Globulin Ratio 1.5 (0.9-2) Lipase 255 H (11-82) U/L Ethyl Alcohol mg/dL < 10.0 (<10.0) mg/dl Administered Medications Ezetimibe (Ezetimibe 10 Mg Tab) 10 mg PO [facility] Stop: 01/08/25 21:57 Last Admin: 12/09/24 22:27 Dose: 10 mg Documented By: WILL Famotidine (Famotidine 40 Mg Tablet) 40 mg PO [facility] Stop: 01/08/25 21:57 Last Admin: 12/09/24 22:27 Dose: 40 mg Documented By: WILL Heparin Sodium (Porcine) (Heparin Sod 5,000 Unit/0.5 Ml Vial) 5,000 units SQ Q12 [facility] Stop: 01/08/25 21:57 Last Admin: 12/09/24 22:28 Dose: Not Given Documented By: WILL Hydromorphone HCl (Hydromorphone Inj 0.5 Mg/0.5 Ml Syr) 0.5 mg IV Q4H PRN PRN Reason: Severe Pain (Scale 7, 8, 9,10) Stop: 12/23/24 21:57 Last Admin: 12/09/24 22:25 Dose: 0.5 mg Documented By: WILL Lactated Ringer's (Lr) 1,000 mls @ 80 mls/hr IV .[id number] [facility] Stop: 12/10/24 21:57 Last Admin: 12/09/24 22:27 Dose: 80 mls/hr Documented By: WILL Metoprolol Succinate (Metoprolol Succ 25mg Ext Rel Tab) 25 mg PO BID [facility] Stop: 01/08/25 21:57 Last Admin: 12/09/24 22:27 Dose: 25 mg Documented By: WILL Ticagrelor (Ticagrelor 90 Mg Tab) 90 mg PO BID [facility] Stop: 01/08/25 21:57 Last Admin: 12/09/24 22:27 Dose: 90 mg Documented By: WILL Discontinued Medications Diphenhydramine HCl (Diphenhydramine 50 Mg/Ml Vial) 50 mg IV NOW STA Stop: 12/09/24 17:37 Last Admin: 12/09/24 18:09 Dose: 50 mg Documented By: TESSY Hydromorphone HCl (Hydromorphone Inj 0.5 Mg/0.5 Ml Syr) 0.5 mg IV NOW STA Stop: 12/09/24 17:37 Last Admin: 12/09/24 18:10 Dose: 0.5 mg Documented By: TESSY Prochlorperazine (Compazine) 2 mls @ 1 mls/min IV ONE ONE Stop: 12/09/24 17:37 Last Admin: 12/09/24 18:10 Dose: 1 mls/min Documented By: TESSY Sodium Chloride (Nss) 1,000 mls @ 999 mls/hr IV .Q1H1M ONE Stop: 12/09/24 18:36 Last Infusion: 12/09/24 19:26 Dose: Infused Documented By: Admin: 12/09/24 18:13 Dose: 999 mls/hr Documented By: TESSY Discharge Plan Visit Data Chief Complaint: Abdominal Pain Stated Complaint: AB PAIN ED Provider: Kasi Curry Discharge Problem: Acute on chronic pancreatitis, Elevated lipase, Elevated LFTs Patient Disposition: Admitted As Inpatient Discharge Instructions Interventions: ED Discharge Assessment Last Done: 12/09/24 21:32
[2024-12-09 18:05] LABS: Basophils # (auto) 0.05 K/uL (0.00-0.20); Basophils % (auto) 0.6 %; Eosinophils # (auto) 0.21 K/uL (0.00-0.50); Eosinophils % (auto) 2.4 %; Hematocrit (blood only) 42.1 % (42.0-52.0); Hemoglobin 14.4 g/dl (14.0-18.0); Immature Granulocytes # (auto) 0.03 K/uL (0.01-0.20); Immature Granulocytes % (auto) 0.3 %; Lymphocytes # (auto) 0.93 K/uL (1.20-3.40); Lymphocytes % (auto) 10.6 %; Mean Corpuscular Hemoglobin 33.9 pg (25.0-34.0); Mean Corpuscular Hgb Conc 34.2 g/dL (32.0-36.0); Mean Corpuscular Volume 99.1 fL (80.0-100.0); Mean Platelet Volume 9.3 fL (9.4-12.4); Monocytes # (auto) 0.37 K/uL (0.11-0.59); Monocytes % (auto) 4.2 %; Neutrophils # (auto) 7.19 K/uL (1.40-6.50); Neutrophils % (auto) 81.9 %; Platelet Count 264 K/uL (130-400); RDW Coefficient of Variation 13.2 % (11.5-14.5); RDW Standard Deviation 48.3 fL (36.4-46.3); Red Blood Count 4.25 M/uL (4.70-6.10); White Blood Count 8.78 K/ul (4.8-10.8)
[2024-12-09] MEDS: diphenhydrAMINE 50 MG/ML VIAL IV STA (18:09)
[2024-12-09] MEDS: HYDROmorphone INJ 0.5 MG/0.5 ML SYR IV STA (18:10)
[2024-12-09] MEDS: PROCHLORPERAZINE 2 ML IV ONE (18:10)
[2024-12-09] MEDS: SODIUM CHLORIDE 0.9% 1,000 ML IV ONE (18:13)
[2024-12-09 18:21] LABS: Albumin Globulin Ratio 1.5 (0.9-2); Albumin Level 4.1 gm/dl (3.4-5.0); BUN Creatinine Ratio 16.8 (10-20); Bilirubin,Total 0.7 mg/dl (0.2-1.0); Calcium 9.2 mg/dl (8.6-10.3); Globulin 2.7 gm/dl (2.5-4.0); Potassium 4.1 mmol/L (3.5-5.1); Total Protein 6.8 gm/dl (6.0-8.3)
[2024-12-09] MEDS ORDERED: LORazepam 2 MG/1 ML VIAL IV PRN (21:58)
[2024-12-09] MEDS ORDERED: ONDANSETRON INJ 2 MG/ML 2 ML VIAL IV PRN (21:58)
[2024-12-09] MEDS ORDERED: NITROGLYCERIN SL 0.4 MG/TAB TAB SL PRN (21:58)
[2024-12-09] MEDS: HYDROmorphone INJ 0.5 MG/0.5 ML SYR IV PRN (22:25)
[2024-12-09] MEDS: FAMOTIDINE 40 MG TABLET PO SCH (22:27)
[2024-12-09] MEDS: LACTATED RINGER'S 1,000 ML IV SCH (22:27)
[2024-12-09] MEDS: METOPROLOL SUCC 25MG EXT REL TAB PO SCH (22:27)
[2024-12-09] MEDS: EZETIMIBE 10 MG TAB PO SCH (22:27)
[2024-12-09] MEDS: TICAGRELOR 90 MG TAB PO SCH (22:27)
[2024-12-09] MEDS: HEPARIN SOD 5,000 UNIT/0.5 ML VIAL SQ SCH (22:28)
--- NOTE | 2024-12-10 05:19 | History & Physical Report ---
Date of Service December 09, 2024 Assessment & Plan (1) Acute pancreatitis: Plan: 54-year-old male with past medical history significant for history of ST elevated IL status post stent, chronic systolic CHF, nonsustained ventricular tachycardia, history of bradycardia, hyperlipidemia Casanova's esophagus, ongoing tobacco abuse, generalized anxiety disorder, chronic pancreatitis presents with abdominal pain. Pain started today. Moderate to severe in nature. Associated with nausea. Normal bowel movements. Normal bladder movements. Denies any chest pain or shortness of breath. No cough. No fevers. No headache. No runny nose or sore throat. Hemodynamics are okay.He was earlier in the [facility] ER And was discharged after giving pain medications. Patient says there is a plan for ERCP, seems to undergo permanent pancreatic stent placement in the next couple of weeks. Pancreatitis Acute on chronic Lipase 255 N.p.o., IV fluids, IV pain meds as needed GI consult in a.m. 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 Patient started on Heparin drip for total of 48 hours. Started on amlodipine for anti-anginal effect." Continue amlodipine, metoprolol succinate, aspirin and Brilinta, Zetia and ros uvastatin. Chronic systolic CHF Echo September 2024 showed EF of 40 to 45% Getting fluids Monitor for volume overload GERD Casanova's esophagus On famotidine Protonix Hypertension On amlodipine, losartan and metoprolol succinate We will monitor Hyperlipidemia On Zetia and statin Generalized anxiety disorder On Zoloft Transaminitis Will follow repeat labs DVT prophylaxis Heparin subcu Disposition Med/telemetry Full code History of Present Illness Chief Complaint: Abdominal pain Primary Care Provider: Wade Bragg MD 54-year-old male with past medical history significant for history of ST elevated IL status post stent, chronic systolic CHF, nonsustained ventricular tachycardia, history of bradycardia, hyperlipidemia Casanova's esophagus, ongoing tobacco abuse, generalized anxiety disorder, chronic pancreatitis presents with abdominal pain. Pain started today. Moderate to severe in nature. Associated with nausea. Normal bowel movements. Normal bladder movements. Denies any chest pain or shortness of breath. No cough. No fevers. No headache. No runny nose or sore throat. Hemodynamics are okay.He was earlier in the [facility] ER And was discharged after giving pain medications. Patient says th ere is a plan for ERCP, seems to undergo permanent pancreatic stent placement in the next couple of weeks. Past medical history. As mentioned above Past surgical history. Colonoscopy. Cardiac cath. EGD. EGD with endoscopic ultrasound. ERCP. Vasectomy. Social history. Smokes half pack a day for last 31 years. Currently no alcohol use. No drug use. Family history. Mother had diabetes. Stroke. Father had hypertension. Maternal grandmother had mental disorder. Allergies Allergy/AdvReac Type Severity Reaction Status Date / Time isosorbide [From Imdur] AdvReac Severe severe Verified 12/08/24 13:59 migraine Home Medications Medication Instructions Recorded Confirmed Type amlodipine 5 mg tablet 5 mg PO DAILY 12/09/24 12/09/24 History aspirin 81 mg tablet,delayed 81 mg PO DAILY 12/09/24 12/09/24 History release ezetimibe 10 mg tablet 10 mg PO HS 12/09/24 12/09/24 History famotidine 40 mg tablet 40 mg PO HS 12/09/24 12/09/24 History losartan 25 mg tablet 12.5 mg PO DAILY 12/09/24 12/09/24 History magnesium oxide 400 mg (241.3 mg 400 mg PO DAILY 12/09/24 12/09/24 History magnesium) tablet metoprolol succinate 25 mg 25 mg PO BID 12/09/24 12/09/24 History tablet,extended release 24 hr nitroglycerin 0.4 mg sublingual 0.4 mg sublingual UD 12/09/24 12/09/24 History tablet pantoprazole 40 mg tablet,delayed 40 mg PO DAILY 12/09/24 12/09/24 History release rosuvastatin 40 mg tablet 40 mg PO DAILY 12/09/24 12/09/24 History sertraline 100 mg tablet 100 mg PO DAILY 12/09/24 12/09/24 History ticagrelor 90 mg tablet (Brilinta) 90 mg PO BID 12/09/24 12/09/24 History Past Med/Surg History Problem List (Updated 12/09/24 @ 23:33 by Kasi Curry MD) Elevated LFTs (Acute) Elevated troponin (Acute) Acute non-ST elevation myocardial infarction (NSTEMI) (Acute) Intestinal ischemia HTN (hypertension) Dyslipidemia, goal LDL below 70 ASCVD (arteriosclerotic cardiovascular disease) Chest pain (Acute) Hypomagnesemia (Acute) History of insertion of pancreatic stent (Acute) Elevated lipase (Acute) Acute pancreatitis (Acute) Epigastric abdominal pain (Acute) Abdominal pain (Acute) Acute on chronic pancreatitis (Acute) Abdominal pain (Acute) Epigastric abdominal pain Abdominal pain, acute (Acute) Acute pancreatitis (Acute) SVT (supraventricular tachycardia) Chest pain (Acute) Acute pancreatitis (Acute) GERD (gastroesophageal reflux disease) Chest pain (Acute) Ischemic cardiomyopathy Non-sustained ventricular tachycardia (Acute) Elevated troponin (Acute) Bradycardia (Acute) Chronic pancreatitis Sinus bradycardia Chest pain (Acute) Hematoma Tobacco abuse Recurrent pancreatitis (Acute) Non-ST elevation (NSTEMI) myocardial infarction (Acute) Acute on chronic pancreatitis Abdominal pain (Acute) Lesion of pancreas Elevated lipase Pancreatitis (Acute) Chest pain (Acute) Chest pain Acute pancreatitis (Acute) Abdominal pain, periumbilical (Acute) Anemia Hypomagnesemia Hypophosphatemia Hx laparoscopic cholecystectomy (08/22/21) Laparoscopic Cholecystectomy Dr. Davidson 08/22/2021 Grade II diastolic dysfunction Barretts esophagus Acute pancreatitis (Acute) Non-ST elevation [place] (NSTEMI) (Acute) Breath shortness (Acute) DVT prophylaxis Chest pain (Acute) HLD (hyperlipidemia) RADHA (generalized anxiety disorder) CAD (coronary artery disease) (Acute) 2018-RCA stent x 2 07/2020-STEMI, s/p PCI to left circumflex with 2 MELLY. Post procedure complicated by V. fib arrest requiring defibrillation. 12/2020-NSTEMI s/p 3 Xience MELLY to the distal aspect of prior stent of the left posterior lateral branch vessel Depression GERD (gastroesophageal reflux disease) (Acute) Medical History ST elevation myocardial infarction (STEMI) COVID-29 Oct 2021 Mobitz type 2 second degree atrioventricular block Tobacco abuse Splenic infarct Surgical History History of endoscopic retrograde cholangiopancreatography x2 (08/31, 09/30) History of vasectomy Family History Mother Gallbladder disease Sister Gallbladder disease Other Diabetes Stroke Denies family history of Pancreatic disease Social History (Updated 12/08/24 @ 13:56 by Cecilia Saucedo RN) Smoking Status: Current every day smoker Tobacco Type: Cigarettes Cigarettes Per Day: 1/2 pack; Second Hand Exposure: No; Do You Dip or Chew Tobacco: No; Hx Alcohol Use: No Hx Substance Use: No Preferred Language: Turkish Communication Ability: Effective Visual Impairment: No Limitations Hearing Ability: Normal [employer] Required: No Beliefs That Will Affect Care: None marital status: Single Current Living Situation: Alone current occupational status: employed 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 ENT- oropharynx clear Neck- supple, no JVD. Lungs- clear to auscultation no wheezing or crackles. Heart- regular rate and rhythm; no murmur, no gallop. Abdomen- normal bowel sounds, soft, diffuse tenderness, mild guarding, no distension Extremities- no pretibial edema, no erythema seen. Neuro- alert, oriented PERRL, no facial palsy; no dysarthria; moves ext remities Results & Data Results & Data Vital Signs (Past 12 Hours) Vital Signs Temp Pulse Resp BP Pulse Ox O2 Del Method 12/09/24 18:03 65 30 H 112/81 98 12/09/24 17:33 70 25 H 99 12/09/24 17:03 70 29 H 96 12/09/24 16:39 71 20 97 12/09/24 16:24 89 12/09/24 16:23 36.6 C 83 18 147/90 H 99 Room Air Diagnostic Findings Laboratory Results WBC 8.78 K/ul (4.8-10.8) 12/09/24 16:25 RBC 4.25 M/uL (4.70-6.10) L 12/09/24 16:25 Hgb 14.4 g/dl (14.0-18.0) 12/09/24 16:25 Hct 42.1 % (42.0-52.0) 12/09/24 16: MCV 99.1 fL (80.0-100.0) 12/09/24 16: MCH 33.9 pg (25.0-34.0) 12/09/24 16: MCHC 34.2 g/dL (32.0-36.0) 12/09/24 16: RDW Std Deviation 48.3 fL (36.4-46.3) H 12/09/24: RDW Coeff of Mckinley 13.2 % (11.5-14.5) 12/09/24 16: Plt Count 264 K/uL (130-400) 12/09/24 16: MPV 9.3 fL (9.4-12.4) L 12/09/24 16: Immature Gran % (Auto) 0.3 % 12/09/24 16: Neut % (Auto) 81.9 % 12/09/24 16: Lymph % (Auto) 10.6 % 12/09/24 16:25 [place] % (Auto) 4.2 % 12/09/24 16:25 Eos % (Auto) 2.4 % 12/09/24 16:25 Baso % (Auto) 0.6 % 12/09/24: Neut # (Auto) 7.19 K/uL (1.40-6.50) H 12/09/24 16: Lymph # (Auto) 0.93 K/uL (1.20-3.40) L 12/09/24 16: [place] # (Auto) 0.37 K/uL (0.11-0.59) 12/09/24 16: Eos # (Auto) 0.21 K/uL (0.00-0.50) 12/09/24 16:25 Baso # (Auto) 0.05 K/uL (0.00-0.20) 12/09/24 16: Immature Gran # (Auto) 0.03 K/uL (0.01-0.20) 12/09/24 16:25 Sodium 135 mmol/L (136-145) L 12/09/24 16:25 Potassium 4.1 mmol/L (3.5-5.1) 12/09/24 16: Chloride 104 mmol/L (98-107) 12/09/24 16:25 Carbon Dioxide 25 mmol/L (21-32) 12/09/24 16:25 Anion Gap 6 (3-11) 12/09/24 16:25 BUN 18 mg/dl (6-23) 12/09/24 16:25 Creatinine 1.07 mg/dl (0.6-1.4) 12/09/24 16:25 Est Cr Clr Drug Dosing 62.0 ml/min 12/09/24 16:25 eGFR 81.95 12/09/24 16:25 BUN/Creatinine Ratio 16.8 (10-20) 12/09/24 16:25 Glucose 90 mg/dl (70-99(Fasting)) 12/09/24 16:25 Calcium 9.2 mg/dl (8.6-10.3) 12/09/24 16:25 Total Bilirubin 0.7 mg/dl (0.2-1.0) 12/09/24 16:25 AST 167 U/L (13-39) H 12/09/24 16:25 ALT 125 U/L (7-52) H 12/09/24 16:25 Alkaline Phosphatase 97 U/L (34-104) 12/09/24 16:25 Total Protein 6.8 gm/dl (6.0-8.3) 12/09/24 16:25 Albumin 4.1 gm/dl (3.4-5.0) 12/09/24 16:25 Globulin 2.7 gm/dl (2.5-4.0) 12/09/24 16:25 Albumin/Globulin Ratio 1.5 (0.9-2) 12/09/24 16:25 Lipase 255 U/L (11-82) H 12/09/24 16:25 Ethyl Alcohol mg/dL < 10.0 mg/dl (<10.0) 12/09/24 19:23 Code Status & VTE Plan VTE Prophylaxis Plan VTE Prophylaxis will be ordered: Yes (1) Acute pancreatitis Acute pancreatitis complication: unspecified Pancreatitis type: unspecified pancreatitis type Qualified Code(s): K85.90 - Acute pancreatitis without necrosis or infection, unspecified
[2024-12-10 05:25] LABS: Appearance Urine Clear (Clear); Bilirubin Urine Negative (Negative); Blood Urine Negative (Negative); Color Urine Yellow; Glucose Urine UA Negative (Negative); Ketones Urine Trace (Negative); Leukocyte Esterase Urine Negative (Negative); Nitrite Urine Negative (Negative); Protein Urine Negative (Negative); Specific Gravity Urine 1.023 (1.000-1.030); Urobilinogen Urine Negative (Negative)
[2024-12-10 05:53] LABS: Amphetamines+Metham, Urine Neg (Neg); Barbiturates, Urine Neg (Neg); Benzodiazepine, Urine Neg (Neg); Cocaine, Urine Neg (Neg); Fentanyl, Urine Pos (Neg); MDMA (Ecstacy), Urine Neg (Neg); Marijuana, Urine Neg (Neg); Methadone, Urine Neg (Neg); Opiate, Urine Pos (Neg); Phencyclidine, Urine Neg (Neg)
[2024-12-10 06:37] LABS: Basophils # (auto) 0.05 K/uL (0.00-0.20); Basophils % (auto) 0.8 %; Eosinophils # (auto) 0.18 K/uL (0.00-0.50); Eosinophils % (auto) 2.8 %; Hematocrit (blood only) 42.3 % (42.0-52.0); Hemoglobin 14.2 g/dl (14.0-18.0); Immature Granulocytes # (auto) 0.02 K/uL (0.01-0.20); Immature Granulocytes % (auto) 0.3 %; Lymphocytes # (auto) 0.83 K/uL (1.20-3.40); Lymphocytes % (auto) 12.7 %; Mean Corpuscular Hemoglobin 33.5 pg (25.0-34.0); Mean Corpuscular Hgb Conc 33.6 g/dL (32.0-36.0); Mean Corpuscular Volume 99.8 fL (80.0-100.0); Mean Platelet Volume 9.1 fL (9.4-12.4); Monocytes # (auto) 0.45 K/uL (0.11-0.59); Monocytes % (auto) 6.9 %; Neutrophils # (auto) 4.99 K/uL (1.40-6.50); Neutrophils % (auto) 76.5 %; Platelet Count 237 K/uL (130-400); RDW Coefficient of Variation 12.9 % (11.5-14.5); RDW Standard Deviation 47.7 fL (36.4-46.3); Red Blood Count 4.24 M/uL (4.70-6.10); White Blood Count 6.52 K/ul (4.8-10.8)
[2024-12-10 07:04] LABS: Albumin Level 3.9 gm/dl (3.4-5.0); BUN Creatinine Ratio 15.8 (10-20); Bilirubin Direct 0.1 mg/dl (0-0.2); Bilirubin,Total 0.6 mg/dl (0.2-1.0); Calcium 8.6 mg/dl (8.6-10.3); Magnesium 1.4 mg/dl (1.7-2.4); Potassium 4.4 mmol/L (3.5-5.1); Total Protein 6.4 gm/dl (6.0-8.3)
[2024-12-10] MEDS: PANTOprazole 40 MG TAB PO SCH (08:20)
[2024-12-10] MEDS: amLODIPine BESYLATE 5 MG TAB PO SCH (08:20)
[2024-12-10] MEDS: ROSUVASTATIN CALCIUM 20 MG TAB PO SCH (08:20)
[2024-12-10] MEDS: MAGNESIUM OXIDE 400 MG TAB PO SCH (08:20)
[2024-12-10] MEDS: THIAMINE HCL 50 MG TABLET PO SCH (08:20)
[2024-12-10] MEDS: SERTRALINE HCL 100 MG TABLET PO SCH (08:20)
[2024-12-10] MEDS: CEROVITE ADV FORMULA TAB PO SCH (08:21)
[2024-12-10] MEDS: LOSARTAN POTASSIUM 25 MG TAB PO SCH (08:21)
[2024-12-10] MEDS: FOLIC ACID 1 MG TAB PO SCH (08:21)
[2024-12-10] MEDS: ASPIRIN 81 MG ECTAB PO SCH (08:21)
[2024-12-10] MEDS: MAGNESIUM SULFATE / D5W 1 GM/100 ML BAG IV ONE (08:29)
[2024-12-10] MEDS: HYDROmorphone INJ 0.5 MG/0.5 ML SYR IV PRN (08:35)
--- NOTE | 2024-12-10 11:12 | Gastrointestinal Consultation ---
Date of Consultation December 10, 2024 Assessment & Plan (1) Acute pancreatitis: This is one of many admissions for pancreatitis for this pleasant man. I have nothing to add to his care at this time. Treat with fluids and pain control. Advance diet when he is pain free and then he can go home. He needs to keep his appt with Dr. Gross for stent exchange later this month. History of Present Illness Reason for Consultation: pancreatitis Attending Physician: Regino Blunt MD History of Present Illness 54 year old man returns with another episode of acute on chronic pancreatitis. This is just the same as all of his other episodes. Was seen in [facility] ED and sent out with pain meds. Pain went away but returned. Today he feels well and is without pain. He has a pancreatic duct stent in place and is scheduled for replacement later this month. Allergies Allergy/AdvReac Type Severity Reaction Status Date / Time isosorbide [From Imdur] AdvReac Severe severe Verified 12/08/24 13:59 migraine Home Medications Medication Instructions Recorded Confirmed Type amlodipine 5 mg tablet 5 mg PO DAILY 12/09/24 12/09/24 History aspirin 81 mg tablet,delayed 81 mg PO DAILY 12/09/24 12/09/24 History release ezetimibe 10 mg tablet 10 mg PO HS 12/09/24 12/09/24 History famotidine 40 mg tablet 40 mg PO HS 12/09/24 12/09/24 History losartan 25 mg tablet 12.5 mg PO DAILY 12/09/24 12/09/24 History magnesium oxide 400 mg (241.3 mg 400 mg PO DAILY 12/09/24 12/09/24 History magnesium) tablet metoprolol succinate 25 mg 25 mg PO BID 12/09/24 12/09/24 History tablet,extended release 24 hr nitroglycerin 0.4 mg sublingual 0.4 mg sublingual UD 12/09/24 12/09/24 History tablet pantoprazole 40 mg tablet,delayed 40 mg PO DAILY 12/09/24 12/09/24 History release rosuvastatin 40 mg tablet 40 mg PO DAILY 12/09/24 12/09/24 History sertraline 100 mg tablet 100 mg PO DAILY 12/09/24 12/09/24 History ticagrelor 90 mg tablet (Brilinta) 90 mg PO BID 12/09/24 12/09/24 History Patient History Medical History ST elevation myocardial infarction (STEMI) COVID-29 Oct 2021 Mobitz type 2 second degree atrioventricular block Tobacco abuse Splenic infarct Surgical History History of endoscopic retrograde cholangiopancreatography x2 (08/31, 09/30) History of vasectomy Family History Mother Gallbladder disease Sister Gallbladder disease Other Diabetes Stroke Denies family history of Pancreatic disease Social History Smoking Status: Current every day smoker Tobacco Type: Cigarettes Cigarettes Per Day: 1/2 pack; Second Hand Exposure: No; Do You Dip or Chew Tobacco: No; Hx Alcohol Use: No Hx Substance Use: No Preferred Language: Finnish Communication Ability: Effective Visual Impairment: No Limitations Hearing Ability: Normal Fishing Rod Assembler Required: No Beliefs That Will Affect Care: None marital status: Single Current Living Situation: Alone current occupational status: employed 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 [employer] Feels Safe at Home: Yes Safety Concerns: Feels Safe At This Time Assistive Devices: Glasses Review of Systems Review of Systems: All systems reviewed & are unremarkable except as noted in HPI & below Physical Exam Constitutional: WD/WN, vitals as above Neck: trachea midline, no thyromegaly Respiratory: normal respiratory effort, lungs clear to auscultation Cardiovascular: RRR, no murmur, no edema Gastrointestinal (Abdomen): normal bowel sounds, soft, nontender, no hepatosplenomegaly Results & Data Vital Signs (Past 12 Hours) Vital Signs Temp Pulse Pulse Resp BP Pulse Ox O2 Del Method 12/10/24 09:10 Room Air 12/10/24 07:25 36.8 C 70 18 147/87 H 98 Room Air 12/10/24 07:07 63 12/10/24 02:29 37 C 83 16 153/79 H 92 Room Air Laboratory Results 12/10/24 12/10/24 12/09/24 Range/Units 05:44 05:15 19:23 WBC 6.52 (4.8-10.8) K/ul RBC 4.24 L (4.70-6.10) M/uL Hgb 14.2 (14.0-18.0) g/dl Hct 42.3 (42.0-52.0) % MCV 99.8 (80.0-100.0) fL MCH 33.5 (25.0-34.0) pg MCHC 33.6 (32.0-36.0) g/dL RDW Std Deviation 47.7 H (36.4-46.3) fL RDW Coeff of Mckinley 12.9 (11.5-14.5) % Plt Count 237 (130-400) K/uL MPV 9.1 L (9.4-12.4) fL Immature Gran % (Auto) 0.3 % Neut % (Auto) 76.5 % Lymph % (Auto) 12.7 % [place] % (Auto) 6.9 % Eos % (Auto) 2.8 % Baso % (Auto) 0.8 % Neut # (Auto) 4.99 (1.40-6.50) K/uL Lymph # (Auto) 0.83 L (1.20-3.40) K/uL [place] # (Auto) 0.45 (0.11-0.59) K/uL Eos # (Auto) 0.18 (0.00-0.50) K/uL Baso # (Auto) 0.05 (0.00-0.20) K/uL Immature Gran # (Auto) 0.02 (0.01-0.20) K/uL Sodium 135 L (136-145) mmol/L Potassium 4.4 (3.5-5.1) mmol/L Chloride 104 (98-107) mmol/L Carbon Dioxide 24 (21-32) mmol/L Anion Gap 7 (3-11) BUN 15 (6-23) mg/dl Creatinine 0.95 (0.6-1.4) mg/dl Est Cr Clr Drug Dosing 67.0 ml/min eGFR 94.53 BUN/Creatinine Ratio 15.8 (10-20) Glucose 91 (70-99(Fasting)) mg/dl Calcium 8.6 (8.6-10.3) mg/dl Magnesium 1.4 L (1.7-2.4) mg/dl Total Bilirubin 0.6 (0.2-1.0) mg/dl Direct Bilirubin 0.1 (0-0.2) mg/dl AST 61 H (13-39) U/L ALT 84 H (7-52) U/L Alkaline Phosphatase 93 (34-104) U/L Total Protein 6.4 (6.0-8.3) gm/dl Albumin 3.9 (3.4-5.0) gm/dl Globulin (2.5-4.0) gm/dl Albumin/Globulin Ratio (0.9-2) Lipase (11-82) U/L Urine Color Yellow Urine Appearance Clear (Clear) Urine pH 6.0 (4.5-7.5) Ur Specific [place] 1.023 (1.000-1.030) Urine Protein Negative (Negative) Urine Glucose (UA) Negative (Negative) Urine Ketones Trace H (Negative) Urine Blood Negative (Negative) Urine Nitrite Negative (Negative) Urine Bilirubin Negative (Negative) Urine Urobilinogen Negative (Negative) Ur Leukocyte Esterase Negative (Negative) Urine Opiates Screen Pos H (Neg) U Codeine Confrm GC/MS Pending Ur Morphine (GC/MS) Pending Ur Hydrocodone (GC/MS) Pending Ur Norhydrocodone Pending Ur Noroxycodone Pending Urine Oxycodone (GC/MS) Pending U Oxymorphone GC/MS Pending Ur Methadone, Qual Neg (Neg) Ur Hydromorphone (GC/MS) Pending Fentanyl Comments Pending Drug Monitor Fentanyl Pending Fentanyl Confirmation Pending Drug Monitor Norfentanyl Pending Urine Fentanyl Screen Pos H (Neg) Ur Norfentanyl Confirm Pending Urine Barbiturates Neg (Neg) Ur Phencyclidine (PCP) Neg (Neg) U Amphetamin/Meth Scrn Neg (Neg) MDMA (Ecstasy) Screen Neg (Neg) U Benzodiazepines Scrn Neg (Neg) Ur Cocaine Metabolite Neg (Neg) U Marijuana (THC) Screen Neg (Neg) Drug Screen Comment Pending Ethyl Alcohol mg/dL < 10.0 (<10.0) mg/dl Toxicology Comment Pending Drug Monitor Historic Res Pending 12/09/24 Range/Units 16:25 WBC 8.78 (4.8-10.8) K/ul RBC 4.25 L (4.70-6.10) M/uL Hgb 14.4 (14.0-18.0) g/dl Hct 42.1 (42.0-52.0) % MCV 99.1 (80.0-100.0) fL MCH 33.9 (25.0-34.0) pg MCHC 34.2 (32.0-36.0) g/dL RDW Std Deviation 48.3 H (36.4-46.3) fL RDW Coeff of Mckinley 13.2 (11.5-14.5) % Plt Count 264 (130-400) K/uL MPV 9.3 L (9.4-12.4) fL Immature Gran % (Auto) 0.3 % Neut % (Auto) 81.9 % Lymph % (Auto) 10.6 % [place] % (Auto) 4.2 % Eos % (Auto) 2.4 % Baso % (Auto) 0.6 % Neut # (Auto) 7.19 H (1.40-6.50) K/uL Lymph # (Auto) 0.93 L (1.20-3.40) K/uL [place] # (Auto) 0.37 (0.11-0.59) K/uL Eos # (Auto) 0.21 (0.00-0.50) K/uL Baso # (Auto) 0.05 (0.00-0.20) K/uL Immature Gran # (Auto) 0.03 (0.01-0.20) K/uL Sodium 135 L (136-145) mmol/L Potassium 4.1 (3.5-5.1) mmol/L Chloride 104 (98-107) mmol/L Carbon Dioxide 25 (21-32) mmol/L Anion Gap 6 (3-11) BUN 18 (6-23) mg/dl Creatinine 1.07 (0.6-1.4) mg/dl Est Cr Clr Drug Dosing 62.0 ml/min eGFR 81.95 BUN/Creatinine Ratio 16.8 (10-20) Glucose 90 (70-99(Fasting)) mg/dl Calcium 9.2 (8.6-10.3) mg/dl Magnesium (1.7-2.4) mg/dl Total Bilirubin 0.7 (0.2-1.0) mg/dl Direct Bilirubin (0-0.2) mg/dl AST 167 H (13-39) U/L ALT 125 H (7-52) U/L Alkaline Phosphatase 97 (34-104) U/L Total Protein 6.8 (6.0-8.3) gm/dl Albumin 4.1 (3.4-5.0) gm/dl Globulin 2.7 (2.5-4.0) gm/dl Albumin/Globulin Ratio 1.5 (0.9-2) Lipase 255 H (11-82) U/L Urine Color Urine Appearance (Clear) Urine pH (4.5-7.5) Ur Specific [place] (1.000-1.030) Urine Protein (Negative) Urine Glucose (UA) (Negative) Urine Ketones (Negative) Urine Blood (Negative) Urine Nitrite (Negative) Urine Bilirubin (Negative) Urine Urobilinogen (Negative) Ur Leukocyte Esterase (Negative) Urine Opiates Screen (Neg) U Codeine Confrm GC/MS Ur Morphine (GC/MS) Ur Hydrocodone (GC/MS) Ur Norhydrocodone Ur Noroxycodone Urine Oxycodone (GC/MS) U Oxymorphone GC/MS Ur Methadone, Qual (Neg) Ur Hydromorphone (GC/MS) Fentanyl Comments Drug Monitor Fentanyl Fentanyl Confirmation Drug Monitor Norfentanyl Urine Fentanyl Screen (Neg) Ur Norfentanyl Confirm Urine Barbiturates (Neg) Ur Phencyclidine (PCP) (Neg) U Amphetamin/Meth Scrn (Neg) MDMA (Ecstasy) Screen (Neg) U Benzodiazepines Scrn (Neg) Ur Cocaine Metabolite (Neg) U Marijuana (THC) Screen (Neg) Drug Screen Comment Ethyl Alcohol mg/dL (<10.0) mg/dl Toxicology Comment Drug Monitor Historic Res (1) Acute pancreatitis Acute pancreatitis complication: unspecified Pancreatitis type: unspecified pancreatitis type Qualified Code(s): K85.90 - Acute pancreatitis without necrosis or infection, unspecified
--- NOTE | 2024-12-10 14:01 | Hospitalist Progress Note ---
Date of Service December 10, 2024 Assessment & Plan (1) Acute pancreatitis: Plan: 54 yo M with history of ST elevated [place] s/p stent, chronic systolic CHF, nonsustained ventricular tachycardia, history of bradycardia, hyperlipidemia Casanova's esophagus, ongoing tobacco abuse, generalized anxiety disorder, chronic pancreatitis presents with abdominal pain. Pain started today. Moderate to severe in nature. Associated with nausea. Normal bowel movements. Normal bladder movements. Denies any chest pain or shortness of breath. No cough. No fevers. No headache. No runny nose or sore throat. Hemodynamics are okay.He was earlier in the [facility] ER And was discharged after giving pain medications. Patient says there is a plan for ERCP, seems to undergo permanent pancreatic stent placement in the next couple of weeks. Pancreatitis Acute on chronic Lipase 255 N.p.o., IV fluids, IV pain meds as needed GI consulted - agree w/ current plan Today pt is feeling better , abd. pain improved - he would like to start clear liquid diet - will advance diet History of CAD Recent non-ST elevated [place] in September 2024 Was transferred to [place] for cardiac cath because of complex anatomy S/p cardiac cath in [place] which revealed:"Prior mid Lcx and OM stents have MONOTYPER with faint L-L collaterals, RCA stents patent andLAD mild non obstructive CAD. Patient started on Heparin drip for total of 48 hours. Started on amlodipine for anti-anginal effect." Continue amlodipine, metoprolol succinate, aspirin and Brilinta, Zetia and rosuvastatin. Chronic systolic CHF Echo September 2024 showed EF of 40 to 45% Getting fluids Monitor for volume overload GERD Casanova's esophagus On famotidine Protonix Hypertension On amlodipine, losartan and metoprolol succinate We will monitor Hyperlipidemia On Zetia and statin Generalized anxiety disorder On Zoloft Transaminitis Will follow repeat labs DVT prophylaxis Heparin subcu Disposition - Med/telemetry Full code Admission and Anticipated Discharge Date Admission Date: December 09, 2024 Subjective Pt seen in follow up of recurrent pancreatitis Lying in bed in [facility] Reports abd. pain is improved and would like to start on clear liquid diet No fever, chills, chest pain, shortness of breath Review of Systems Review of Systems: All systems reviewed & are unremarkable except as noted in Subjective Physical Exam Physical Exam: General- thin M in NAD Head- atraumatic Eyes- PERRL. Neck- supple, no JVD. Lungs- clear to auscultation no wheezing or crackles. Heart- regular rate and rhythm; no murmur Abdomen- normal bowel sounds, soft, diffuse tenderness, no distension Extremities- no pretibial edema, no erythema seen. Neuro- alert, oriented PERRL, no facial palsy; no dysarthria; moves extremities Results & Data Results & Data Vital Signs (Past 12 Hours) Vital Signs Temp Pulse Pulse Resp BP Pulse Ox O2 Del Method 12/10/24 11:10 36.9 C 67 18 128/79 98 Room Air 12/10/24 09:10 Room Air 12/10/24 07:25 36.8 C 70 18 147/87 H 98 Room Air 12/10/24 07:07 63 12/10/24 02:29 37 C 83 16 153/79 H 92 Room Air Laboratory Results 12/10/24 12/10/24 12/09/24 Range/Units 05:44 05:15 19:23 WBC 6.52 (4.8-10.8) K/ul RBC 4.24 L (4.70-6.10) M/uL Hgb 14.2 (14.0-18.0) g/dl Hct 42.3 (42.0-52.0) % MCV 99.8 (80.0-100.0) fL MCH 33.5 (25.0-34.0) pg MCHC 33.6 (32.0-36.0) g/dL RDW Std Deviation 47.7 H (36.4-46.3) fL RDW Coeff of Mckinley 12.9 (11.5-14.5) % Plt Count 237 (130-400) K/uL MPV 9.1 L (9.4-12.4) fL Immature Gran % (Auto) 0.3 % Neut % (Auto) 76.5 % Lymph % (Auto) 12.7 % [place] % (Auto) 6.9 % Eos % (Auto) 2.8 % Baso % (Auto) 0.8 % Neut # (Auto) 4.99 (1.40-6.50) K/uL Lymph # (Auto) 0.83 L (1.20-3.40) K/uL [place] # (Auto) 0.45 (0.11-0.59) K/uL Eos # (Auto) 0.18 (0.00-0.50) K/uL Baso # (Auto) 0.05 (0.00-0.20) K/uL Immature Gran # (Auto) 0.02 (0.01-0.20) K/uL Sodium 135 L (136-145) mmol/L Potassium 4.4 (3.5-5.1) mmol/L Chloride 104 (98-107) mmol/L Carbon Dioxide 24 (21-32) mmol/L Anion Gap 7 (3-11) BUN 15 (6-23) mg/dl Creatinine 0.95 (0.6-1.4) mg/dl Est Cr Clr Drug Dosing 67.0 ml/min eGFR 94.53 BUN/Creatinine Ratio 15.8 (10-20) Glucose 91 (70-99(Fasting)) mg/dl Calcium 8.6 (8.6-10.3) mg/dl Magnesium 1.4 L (1.7-2.4) mg/dl Total Bilirubin 0.6 (0.2-1.0) mg/dl Direct Bilirubin 0.1 (0-0.2) mg/dl AST 61 H (13-39) U/L ALT 84 H (7-52) U/L Alkaline Phosphatase 93 (34-104) U/L Total Protein 6.4 (6.0-8.3) gm/dl Albumin 3.9 (3.4-5.0) gm/dl Globulin (2.5-4.0) gm/dl Albumin/Globulin Ratio (0.9-2) Lipase (11-82) U/L Urine Color Yellow Urine Appearance Clear (Clear) Urine pH 6.0 (4.5-7.5) Ur Specific [place] 1.023 (1.000-1.030) Urine Protein Negative (Negative) Urine Glucose (UA) Negative (Negative) Urine Ketones Trace H (Negative) Urine Blood Negative (Negative) Urine Nitrite Negative (Negative) Urine Bilirubin Negative (Negative) Urine Urobilinogen Negative (Negative) Ur Leukocyte Esterase Negative (Negative) Urine Opiates Screen Pos H (Neg) U Codeine Confrm GC/MS Pending Ur Morphine (GC/MS) Pending Ur Hydrocodone (GC/MS) Pending Ur Norhydrocodone Pending Ur Noroxycodone Pending Urine Oxycodone (GC/MS) Pending U Oxymorphone GC/MS Pending Ur Methadone, Qual Neg (Neg) Ur Hydromorphone (GC/MS) Pending Fentanyl Comments Pending Drug Monitor Fentanyl Pending Fentanyl Confirmation Pending Drug Monitor Norfentanyl Pending Urine Fentanyl Screen Pos H (Neg) Ur Norfentanyl Confirm Pending Urine Barbiturates Neg (Neg) Ur Phencyclidine (PCP) Neg (Neg) U Amphetamin/Meth Scrn Neg (Neg) MDMA (Ecstasy) Screen Neg (Neg) U Benzodiazepines Scrn Neg (Neg) Ur Cocaine Metabolite Neg (Neg) U Marijuana (THC) Screen Neg (Neg) Drug Screen Comment Pending Ethyl Alcohol mg/dL < 10.0 (<10.0) mg/dl Toxicology Comment Pending Drug Monitor Historic Res Pending 12/09/24 Range/Units 16:25 WBC 8.78 (4.8-10.8) K/ul RBC 4.25 L (4.70-6.10) M/uL Hgb 14.4 (14.0-18.0) g/dl Hct 42.1 (42.0-52.0) % MCV 99.1 (80.0-100.0) fL MCH 33.9 (25.0-34.0) pg MCHC 34.2 (32.0-36.0) g/dL RDW Std Deviation 48.3 H (36.4-46.3) fL RDW Coeff of Mckinley 13.2 (11.5-14.5) % Plt Count 264 (130-400) K/uL MPV 9.3 L (9.4-12.4) fL Immature Gran % (Auto) 0.3 % Neut % (Auto) 81.9 % Lymph % (Auto) 10.6 % [place] % (Auto) 4.2 % Eos % (Auto) 2.4 % Baso % (Auto) 0.6 % Neut # (Auto) 7.19 H (1.40-6.50) K/uL Lymph # (Auto) 0.93 L (1.20-3.40) K/uL [place] # (Auto) 0.37 (0.11-0.59) K/uL Eos # (Auto) 0.21 (0.00-0.50) K/uL Baso # (Auto) 0.05 (0.00-0.20) K/uL Immature Gran # (Auto) 0.03 (0.01-0.20) K/uL Sodium 135 L (136-145) mmol/L Potassium 4.1 (3.5-5.1) mmol/L Chloride 104 (98-107) mmol/L Carbon Dioxide 25 (21-32) mmol/L Anion Gap 6 (3-11) BUN 18 (6-23) mg/dl Creatinine 1.07 (0.6-1.4) mg/dl Est Cr Clr Drug Dosing 62.0 ml/min eGFR 81.95 BUN/Creatinine Ratio 16.8 (10-20) Glucose 90 (70-99(Fasting)) mg/dl Calcium 9.2 (8.6-10.3) mg/dl Magnesium (1.7-2.4) mg/dl Total Bilirubin 0.7 (0.2-1.0) mg/dl Direct Bilirubin (0-0.2) mg/dl AST 167 H (13-39) U/L ALT 125 H (7-52) U/L Alkaline Phosphatase 97 (34-104) U/L Total Protein 6.8 (6.0-8.3) gm/dl Albumin 4.1 (3.4-5.0) gm/dl Globulin 2.7 (2.5-4.0) gm/dl Albumin/Globulin Ratio 1.5 (0.9-2) Lipase 255 H (11-82) U/L Urine Color Urine Appearance (Clear) Urine pH (4.5-7.5) Ur Specific [place] (1.000-1.030) Urine Protein (Negative) Urine Glucose (UA) (Negative) Urine Ketones (Negative) Urine Blood (Negative) Urine Nitrite (Negative) Urine Bilirubin (Negative) Urine Urobilinogen (Negative) Ur Leukocyte Esterase (Negative) Urine Opiates Screen (Neg) U Codeine Confrm GC/MS Ur Morphine (GC/MS) Ur Hydrocodone (GC/MS) Ur Norhydrocodone Ur Noroxycodone Urine Oxycodone (GC/MS) U Oxymorphone GC/MS Ur Methadone, Qual (Neg) Ur Hydromorphone (GC/MS) Fentanyl Comments Drug Monitor Fentanyl Fentanyl Confirmation Drug Monitor Norfentanyl Urine Fentanyl Screen (Neg) Ur Norfentanyl Confirm Urine Barbiturates (Neg) Ur Phencyclidine (PCP) (Neg) U Amphetamin/Meth Scrn (Neg) MDMA (Ecstasy) Screen (Neg) U Benzodiazepines Scrn (Neg) Ur Cocaine Metabolite (Neg) U Marijuana (THC) Screen (Neg) Drug Screen Comment Ethyl Alcohol mg/dL (<10.0) mg/dl Toxicology Comment Drug Monitor Historic Res Medications Administered Current Inpatient Medications Amlodipine Besylate (Amlodipine Besylate 5 Mg Tab) 5 mg PO DAILY [facility] Stop: 01/09/25 08:59 Last Admin: 12/10/24 08:20 Dose: 5 mg Aspirin (Aspirin 81 Mg Ectab) 81 mg PO DAILY [facility] Stop: 01/09/25 08:59 Last Admin: 12/10/24 08:21 Dose: 81 mg Ezetimibe (Ezetimibe 10 Mg Tab) 10 mg PO HS [facility] Stop: 01/08/25 21:57 Last Admin: 12/09/24 22:27 Dose: 10 mg Famotidine (Famotidine 40 Mg Tablet) 40 mg PO HS [facility] Stop: 01/08/25 21:57 Last Admin: 12/09/24 22:27 Dose: 40 mg Folic Acid (Folic Acid 1 Mg Tab) 1 mg PO QAM [facility] Stop: 01/09/25 08:59 Last Admin: 12/10/24 08:21 Dose: 1 mg Heparin Sodium (Porcine) (Heparin Sod 5,000 Unit/0.5 Ml Vial) 5,000 units SQ Q12 [facility] Stop: 01/08/25 21:57 Last Admin: 12/10/24 08:25 Dose: Not Given Hydromorphone HCl (Hydromorphone Inj 0.5 Mg/0.5 Ml Syr) 0.25 mg IV Q4H PRN PRN Reason: Moderate Pain (Scale 4, 5, 6) Stop: 12/23/24 21:57 Last Admin: 12/10/24 08:35 Dose: 0.25 mg Hydromorphone HCl (Hydromorphone Inj 0.5 Mg/0.5 Ml Syr) 0.5 mg IV Q4H PRN PRN Reason: Severe Pain (Scale 7, 8, 9,10) Stop: 12/23/24 21:57 Last Admin: 12/10/24 02:29 Dose: 0.5 mg Lactated Ringer's (Lr) 1,000 mls @ 80 mls/hr IV .[id number] ALYCIA Stop: 12/10/24 21:57 Last Admin: 12/10/24 10:52 Dose: 80 mls/hr Lorazepam (Lorazepam 2 Mg/1 Ml Vial) 0.5 mg IV Q4H PRN PRN Reason: Anxiety/Agitation Stop: 01/08/25 21:57 Losartan Potassium (Losartan Potassium 25 Mg Tab) 12.5 mg PO DAILY ALYCIA Stop: 01/09/25 08:59 Last Admin: 12/10/24 08:21 Dose: 12.5 mg Magnesium Oxide (Magnesium Oxide 400 Mg Tab) 400 mg PO DAILY ALYCIA Stop: 01/09/25 08:59 Last Admin: 12/10/24 08:20 Dose: 400 mg Metoprolol Succinate (Metoprolol Succ 25mg Ext Rel Tab) 25 mg PO BID ALYCIA Stop: 01/08/25 21:57 Last Admin: 12/10/24 08:20 Dose: 25 mg Multivitamins/Minerals (Cerovite Adv Formula Tab) 1 tab PO QAM [facility] Stop: 01/09/25 08:59 Last Admin: 12/10/24 08:21 Dose: 1 tab Nitroglycerin (Nitroglycerin Sl 0.4 Mg/Tab Tab) 0.4 mg SL Q5M PRN PRN Reason: Chest Pain Stop: 01/08/25 21:57 Ondansetron HCl (Ondansetron Inj 2 Mg/Ml 2 Ml Vial) 4 mg IV Q6H PRN PRN Reason: Nausea Stop: 01/08/25 21:57 Pantoprazole Sodium (Pantoprazole 40 Mg Tab) 40 mg PO DAILY [facility] Stop: 01/09/25 08:59 Last Admin: 12/10/24 08:20 Dose: 40 mg Rosuvastatin Calcium (Rosuvastatin Calcium 20 Mg Tab) 40 mg PO DAILY ALYCIA Stop: 01/09/25 08:59 Last Admin: 12/10/24 08:20 Dose: 40 mg Sertraline HCl (Sertraline Hcl 100 Mg Tablet) 100 mg PO DAILY ALYCIA Stop: 01/09/25 08:59 Last Admin: 12/10/24 08:20 Dose: 100 mg Thiamine HCl (Thiamine Hcl 50 Mg Tablet) 50 mg PO QAM [facility] Stop: 01/09/25 08:59 Last Admin: 12/10/24 08:20 Dose: 50 mg Ticagrelor (Ticagrelor 90 Mg Tab) 90 mg PO BID [facility] Stop: 01/08/25 21:57 Last Admin: 12/10/24 08:21 Dose: 90 mg (1) Acute pancreatitis Acute pancreatitis complication: unspecified Pancreatitis type: unspecified pancreatitis type Qualified Code(s): K85.90 - Acute pancreatitis without necrosis or infection, unspecified
[2024-12-10] MEDS: LACTATED RINGER'S 1,000 ML IV SCH (22:33)
[2024-12-11 06:42] LABS: Hemoglobin 13.1 g/dl (14.0-18.0); Mean Corpuscular Hemoglobin 33.8 pg (25.0-34.0); Mean Corpuscular Hgb Conc 34.5 g/dL (32.0-36.0); Mean Corpuscular Volume 97.9 fL (80.0-100.0); Mean Platelet Volume 8.8 fL (9.4-12.4); Platelet Count 183 K/uL (130-400); RDW Coefficient of Variation 12.9 % (11.5-14.5); RDW Standard Deviation 46.6 fL (36.4-46.3); Red Blood Count 3.88 M/uL (4.70-6.10)
[2024-12-11 07:03] LABS: Albumin Globulin Ratio 1.5 (0.9-2); Albumin Level 3.6 gm/dl (3.4-5.0); BUN Creatinine Ratio 11.1 (10-20); Bilirubin,Total 0.5 mg/dl (0.2-1.0); Calcium 8.9 mg/dl (8.6-10.3); Creatinine Clr Calc Pharmacy 70.8 ml/min; Globulin 2.4 gm/dl (2.5-4.0); Magnesium 1.5 mg/dl (1.7-2.4); Phosphorus 2.9 mg/dl (2.5-4.9); Potassium 4.1 mmol/L (3.5-5.1)
[2024-12-11 07:27] VITALS: RESP 18
--- NOTE | 2024-12-11 09:39 | Gastroenterology Progress Note ---
Date of Service December 11, 2024 Assessment & Plan (1) History of insertion of pancreatic stent: Plan: 54 year old male w/ history of ST elevated [place] s/p stent, systolic CHF, nonsustained ventricular tachycardia, hyperlipidemia Casanova's esophagus, ongoing tobacco abuse, anxiety, chronic pancreatitis following with [facility] for pancreatic stent exchanges admitted w/ abdominal pain. He tells me his pain has resolved w/ bowel rest and IV fluids. He is requesting dietary advancement as he wants to be discharged this morning. Trial clear liquids. If pain returns, recommend repeat abdominal imaging. Encouraged to keep appt w/ [facility] for pancreatic duct stent exchanges. I spent a total of 40 minutes on the date of service in review of patient's record, and previously obtained information in person and appropriate medical visit, discussion and education of plan, with patient and/or caregiver, placing orders for tests/referral/procedures as medically necessary and documentation of pertinent clinical information in patient's medical records for their visit today. Admission and Anticipated Discharge Date Admission Date: December 09, 2024 Supervising Physician Co-Signing Physician Notes I saw and examined this patient with our nurse practitioner and agree with her assessment and plan. Abdominal pain resolved tolerating p.o. okay for discharge from GI standpoint. Subjective Pt was seen and evaluated, chart reviewed. Feeling better - requesting to go home. Wants to try liquids again. Per nursing staff, liquids yesterday resulted in pain but he later tried to complete the tray. Review of Systems Review of Systems: All other findings negative except as noted in HPI. Physical Exam Constitutional: WD/WN, vitals as above Respiratory: normal respiratory effort, lungs clear to auscultation Cardiovascular: Rate/Rhythm: regular rate and regular rhythm Gastrointestinal (Abdomen): normal bowel sounds, soft, nontender, no hepatosplenomegaly Skin: no rashes, warm and dry Results & Data Results & Data Vital Signs (Past 12 Hours) Vital Signs Temp Pulse Pulse Resp BP Pulse Ox O2 Del Method 12/11/24 07:25 97.9 F 69 18 127/81 97 Room Air 12/11/24 06:52 57 L 12/11/24 02:20 98.6 F 81 16 150/85 H 96 Room Air 12/10/24 23:03 97.3 F L 66 18 144/90 H 96 Room Air 12/10/24 21:45 67 Laboratory Results 03/03/25 Range/Units 06:27 WBC 4.90 (4.8-10.8) K/ul RBC 3.88 L (4.70-6.10) M/uL Hgb 13.1 L (14.0-18.0) g/dl Hct 38.0 L (42.0-52.0) % MCV 97.9 (80.0-100.0) fL MCH 33.8 (25.0-34.0) pg MCHC 34.5 (32.0-36.0) g/dL RDW Std Deviation 46.6 H (36.4-46.3) fL RDW Coeff of Mckinley 12.9 (11.5-14.5) % Plt Count 183 (130-400) K/uL MPV 8.8 L (9.4-12.4) fL Sodium 137 (136-145) mmol/L Potassium 4.1 (3.5-5.1) mmol/L Chloride 105 (98-107) mmol/L Carbon Dioxide 26 (21-32) mmol/L Anion Gap 6 (3-11) BUN 10 (6-23) mg/dl Creatinine 0.90 (0.6-1.4) mg/dl Est Cr Clr Drug Dosing 70.8 ml/min eGFR 100.86 BUN/Creatinine Ratio 11.1 (10-20) Glucose 88 (70-99(Fasting)) mg/dl Calcium 8.9 (8.6-10.3) mg/dl Phosphorus 2.9 (2.5-4.9) mg/dl Magnesium 1.5 L (1.7-2.4) mg/dl Total Bilirubin 0.5 (0.2-1.0) mg/dl AST 45 H (13-39) U/L ALT 64 H (7-52) U/L Alkaline Phosphatase 104 (34-104) U/L Total Protein 6.0 (6.0-8.3) gm/dl Albumin 3.6 (3.4-5.0) gm/dl Globulin 2.4 L (2.5-4.0) gm/dl Albumin/Globulin Ratio 1.5 (0.9-2) PG Care Time/CCT Total # of Minutes Spent Total Time Spent with Patient: Total time spent is greater than 50% in coordination of care (as documented) at patient's floor/unit and/or counseling patient: Coding Level of Care Code 09213 SUB INP/OBS CARE 235MIN Diagnoses History of insertion of pancreatic stent Z98.890
[2024-12-11 11:14] VITALS: BP 116/70; PULSE 65; TEMP 98.4; O2SAT 96
--- NOTE | 2024-12-11 12:45 | Discharge Summary ---
Date of Service December 11, 2024 Admission HPI Per Admitting Provider 54-year-old male with past medical history significant for history of ST elevated IN status post stent, chronic systolic CHF, nonsustained ventricular tachycardia, history of bradycardia, hyperlipidemia Casanova's esophagus, ongoing tobacco abuse, generalized anxiety disorder, chronic pancreatitis presents with abdominal pain. Pain started today. Moderate to severe in nature. Associated with nausea. Normal bowel movements. Normal bladder movements. Denies any chest pain or shortness of breath. No cough. No fevers. No headache. No runny nose or sore throat. Hemodynamics are okay.He was earlier in the [facility] ER And was discharged after giving pain medications. Patient says there is a plan for ERCP, seems to undergo permanent pancreatic stent placement in the next couple of weeks. Past medical history. As mentioned above Past surgical history. Colonoscopy. Cardiac cath. EGD. EGD with endoscopic ultrasound. ERCP. Vasectomy. Social history. Smokes half pack a day for last 31 years. Currently no alcohol use. No drug use. Family history. Mother had diabetes. Stroke. Father had hypertension. Maternal grandmother had mental disorder. Admission Exam Per Admitting Provider General- Not in distress Head- atraumatic Eyes- PERRL. ENT- oropharynx clear Neck- supple, no JVD. Lungs- clear to auscultation no wheezing or crackles. Heart- regular rate and rhythm; no murmur, no gallop. Abdomen- normal bowel sounds, soft, diffuse tenderness, mild guarding, no distension Extremities- no pretibial edema, no erythema seen. Neuro- alert, oriented PERRL, no facial palsy; no dysarthria; moves extremities Principal Diagnosis Recurrent pancreatitis Discharge Exam General- thin M in NAD Head- atraumatic Eyes- PERRL. Neck- supple, no JVD. Lungs- clear to auscultation no wheezing or crackles. Heart- regular rate and rhythm; no murmur Abdomen- normal bowel sounds, soft, no tenderness (resolved), no distension Extremities- no pretibial edema, no erythema seen. Neuro- alert, oriented PERRL, no facial palsy; no dysarthria; moves extremities Discharge Data Allergies Allergy/AdvReac Type Severity Reaction Status Date / Time isosorbide [From Imdur] AdvReac Severe severe Verified 12/08/24 13:59 migraine Consultations 12/09/24 19:14 ED Decision to Admit Stat 12/10/24 08:00 Consult Gastroenterology Routine Hospital Course (1) Acute pancreatitis: 54 yo M with history of ST elevated IN s/p stent, chronic systolic CHF, nonsustained ventricular tachycardia, history of bradycardia, hyperlipidemia Casanova's esophagus, ongoing tobacco abuse, generalized anxiety disorder, chronic pancreatitis presents with abdominal pain. Pain started today. Moderate to severe in nature. Associated with nausea. Normal bowel movements. Normal bladder movements. Denies any chest pain or shortness of breath. No cough. No fevers. No headache. No runny nose or sore throat. Hemodynamics are okay.He was earlier in the [facility] ER And was discharged after giving pain medications. Patient says there is a plan for ERCP, seems to undergo permanent pancreatic stent placement in the next couple of weeks. Pancreatitis Acute on chronic Lipase 255 N.p.o., IV fluids, IV pain meds as needed GI consulted - agree w/ current plan 3/2 Today pt is feeling better , abd. pain improved - he would like to start clear liquid diet - will advance diet Pt had abd. pain with clear liquid diet and vomiting Today 3/3 he feels well again and tried clear liquid diet this AM and for lunch, and did well. he would like to be discharged. History of CAD Recent non-ST elevated IN in September 2024 Was transferred to [facility] because of complex anatomy S/p cardiac cath in [facility] which revealed:"Prior mid Lcx and OM stents have [employer] with faint L-L collaterals, RCA stents patent andLAD mild non obstructive CAD. Patient started on Heparin drip for total of 48 hours. Started on amlodipine for anti-anginal effect." Continue amlodipine, metoprolol succinate, aspirin and Brilinta, Zetia and rosuvastatin. Chronic systolic CHF Echo September 2024 showed EF of 40 to 45% Getting fluids Monitor for volume overload GERD Casanova's esophagus On famotidine Protonix Hypertension On amlodipine, losartan and metoprolol succinate We will monitor Hyperlipidemia On Zetia and statin Generalized anxiety disorder On Zoloft Transaminitis LFTs trending down Total Time Total Time Spent Total Time Spent (In Minutes): 40 Discharge Plan Discharge Items Patient Disposition: Home - Self-Care Reason For Visit: PANCREATITIS, RECENT HX OF NSTEMI Discharge Diagnosis: Recurrent pancreatitis Activity: Per Instructions section Non-emergency contact: Primary Care Provider and Retirement Actuary Call non-emergency contact if: you have any medication questions and your symptoms worsen Follow-up/Referrals: Wade Bragg MD [Primary Care Provider] - (Date & Time 12/15/2024 2:00 PM Provider: Wade Bragg MD [facility], [facility] ) Diet: Full liquid Addtl Attending Provider Instructions: Follow up with your primary care doctor and pe manager. The appointment with your primary care doctor was scheduled for 12/15/2024. Advance diet slowly as tolerated. Make sure to stay well hydrated. Continue taking magnesium supplement , as your magnesium was found low here. Pending Studies at Discharge: No Stand-Alone Forms: My [facility] [employer], Smoking Cessation Medications and DC Order Prescriptions: New thiamine HCl (vitamin B1) [Vitamin B-1] 50 mg Tablet 50 mg PO QAM Qty: 30 0RF Cerovite Senior 0.4 mg-300 mcg- 250 mcg Tablet 1 tab PO QAM Qty: 30 0RF folic acid 1 mg Tablet 1 mg PO QAM Qty: 30 0RF Continued famotidine 40 mg tablet 40 mg PO HS sertraline 100 mg tablet 100 mg PO DAILY amlodipine 5 mg tablet 5 mg PO DAILY aspirin 81 mg tablet,delayed release (DR/EC) 81 mg PO DAILY magnesium oxide 400 mg (241.3 mg magnesium) tablet 400 mg PO DAILY pantoprazole 40 mg tablet,delayed release (DR/EC) 40 mg PO DAILY losartan 25 mg tablet 12.5 mg PO DAILY nitroglycerin 0.4 mg tablet, sublingual 0.4 mg sublingual UD Rx Instructions: ntg 0.4mg sl prn chest pain q 5 min x3 and to call 911 metoprolol succinate 25 mg tablet extended release 24 hr 25 mg PO BID ezetimibe 10 mg tablet 10 mg PO HS rosuvastatin 40 mg tablet 40 mg PO DAILY Brilinta 90 mg tablet 90 mg PO BID Discharge Orders: Discharge Order (Routine); Ordered 12/11/24 Ordered By: Regino Blunt Admission Data Admit Date/Time: 12/09/24 20:01 Attending Provider: Regino Blunt Admit Provider: Rosales Singh Primary Care Provider: Wade Bragg Other Providers: Rosales Singh; Milton Rosales
[2024-12-11] MEDS: MAGNESIUM SULFATE / D5W 1 GM/100 ML BAG IV ONE (12:55)
[2024-12-14 12:56] LABS: Codeine Urine NEGATIVE ng/mL (<50); Fentanyl, Urine 2.4 ng/mL (<0.5); Hydrocodone Urine NEGATIVE ng/mL (<50); Hydromor Urine 954 ng/mL (<50); Morphine Urine NEGATIVE ng/mL (<50); Norfentanyl, Urine 14.5 ng/mL (<0.5); Norhydrocodone Conf Ur NEGATIVE ng/mL (<50); Noroxycodone Urine 1050 ng/mL (<50); Oxycodone Urine 534 ng/mL (<50); Oxymorph Urine 441 ng/mL (<50); medMATCH Fentanyl, Urine DNR; medMATCH Norfentanyl, Urine DNR
== END 2024-12-11 14:50 | disposition home or self-care (01) | DRG 439 ==
LOC: ED 16:16 → 2N 20:01

== ENCOUNTER 2024-12-16 08:33 | Inpatient (IN) ==
[2024-12-16] MEDS: HYDROmorphone INJ 0.5 MG/0.5 ML SYR IV STA ×2 (09:11→18:08)
[2024-12-16] MEDS: FAMOTIDINE 20MG IV PUSH 20 MG/5 ML SYR IV STA (09:11)
[2024-12-16] MEDS: diphenhydrAMINE 50 MG/ML VIAL IV STA (09:12)
[2024-12-16] MEDS: SODIUM CHLORIDE 0.9% 1,000 ML IV SCH (09:12)
[2024-12-16] MEDS: PROCHLORPERAZINE 2 ML IV ONE (09:12)
[2024-12-16 09:14] LABS: Basophils # (auto) 0.08 K/uL (0.00-0.20); Basophils % (auto) 1.1 %; Eosinophils # (auto) 0.19 K/uL (0.00-0.50); Eosinophils % (auto) 2.7 %; Hemoglobin 14.7 g/dl (14.0-18.0); Immature Granulocytes # (auto) 0.02 K/uL (0.01-0.20); Immature Granulocytes % (auto) 0.3 %; Lymphocytes # (auto) 1.91 K/uL (1.20-3.40); Lymphocytes % (auto) 26.9 %; Mean Corpuscular Hemoglobin 33.5 pg (25.0-34.0); Mean Corpuscular Volume 95.7 fL (80.0-100.0); Mean Platelet Volume 9.5 fL (9.4-12.4); Monocytes # (auto) 0.38 K/uL (0.11-0.59); Monocytes % (auto) 5.4 %; Neutrophils # (auto) 4.52 K/uL (1.40-6.50); Neutrophils % (auto) 63.6 %; Platelet Count 318 K/uL (130-400); Red Blood Count 4.39 M/uL (4.70-6.10)
--- NOTE | 2024-12-16 09:14 | Emergency Department Note ---
Impression & Plan Abdominal pain ED Provider Note NAME: SAMUEL RIDER AGE: 54 SEX: Male INFORMANT: Patient ED PROVIDER(S): Danish Grullon MD CHIEF COMPLAINT: Abdominal pain PLAN: Disposition: Admitted Outpatient prescription management: none Referral: None MEDICAL DECISION MAKING: Patient presented because of abdominal pain he was concerned about his pancreatitis again. He notes this felt similar to the last time he was admitted. He did not do well yesterday with treatment at the outside facility. He had an IV established. Patient was treated with Compazine, Benadryl, and a small dose of IV Dilaudid. Patient was also given Pepcid. His CBC and chemistry panel was unremarkable. Amylase and lipase were within normal limits as well. Given his history of chronic pancreatitis and the level of discomfort he was experiencing the patient underwent CT imaging. Patient was found to have pancreatitis on CT imaging despite normal amylase and lipase. He did note his pain was feeling better but then it did come back. He was given 4 mg of IV morphine. Consultation was made with the [facility]. Patient was evaluated in the ER and admitted for further management. Care/management discussed with: costume shop manager Level of care consideration(s): After review of the information above and other included data, I feel the patient requires escalation of care to admission. Triage Nursing notes: reviewed and agree them. Vital Signs: reviewed and remarkable for significant hypertension Additional History obtained from: none Chronic Medical/Social Conditions affecting care: Pancreatitis, CAD Prior/ Outside/ External records reviewed: Prior ED visit records reviewed from the last 4 visits. Discharge summary reviewed from 12/11/2024. Patient treated for chronic pancreatitis with GI consultation. Differential Diagnosis: Pancreatitis, obstruction, cardiac sources, renal colic, UTI, appendicitis, diverticulitis, mesenteric ischemia, aortic pathology, infections, inflammatory bowel disease, PUD, biliary pathology, as well as other pathologies. Diagnostics, independently interpreted by me: ECG: Twelve-lead ECG reveals sinus rhythm with a short WA at 88 bpm. Lateral infarct and posterior infarct present. Cardiac Monitoring: Cardiac monitoring ordered by me: The patient was placed on continuous cardiac monitoring and observed. It revealed a normal sinus rhythm at 79 beats per minute without ectopy or evidence of dysrhythmia. Medical decision rules: none Imaging studies: CT scan of the abdomen pelvis with IV and oral contrast reveals mild pancreatitis. HPI: 54 year old Male arrives for evaluation of mid abdominal pain. This started yesterday and is worsening since last night. Patient states that he went to the [facility] and was seen due to his concerns for recurrent pancreatitis. Patient has an indwelling duodenal stent which is scheduled to be removed at the end of this month at [facility] by Dr. Gross. Patient states he was treated and discharged with pain medication. Despite using the pain medication at home his symptoms worsened. He was recently admitted to the hospital here and came back as the symptoms felt similar and he was concerned about needing admission again.. The patient also notes the following associated symptoms, nausea. The patient has Toradol and Zofran by EMS for relieving factors. Current pain is rated as 10/10. Pt denies LOC, headache, fevers, chills, diaphoresis, visual changes, neck pain, chest pain, breathing difficulties, vomiting, back pain, melena, hematochezia, urinary symptoms, numbness, weakness, lymphadenopathy, rash, or other complaints. PAST MEDICAL HISTORY: See Below, pancreatitis, CAD PAST SURGICAL HISTORY: See Below, SOCIAL HISTORY: See Below, smoker HOME MEDICATIONS: See Below ALLERGIES: See Below VITALS: See Below PHYSICAL EXAMINATION: GENERAL: Awake, alert, uncomfortable-appearing, in no distress HENT: Normocephalic, atraumatic. Oropharynx unremarkable. EYES: Normal conjunctiva. Sclera non-icteric. NECK: Inspection normal. Non-tender. Supple. No nuchal rigidity. FROM. No masses. RESPIRATORY: Clear to auscultation. No wheezes. No rales. Normal respiratory effort. CARDIAC: Normal rate. Normal rhythm. No murmurs. No rubs. Extremities warm and well perfused. Pulses equal. No JVD. GI: Soft, non-distended. Epigastric and mid abdominal tenderness to palpation. No rebound but mild guarding. No masses. RECTAL: Deferred. MUSCULOSKELETAL: Atraumatic. Chest examination reveals no tenderness. The back is symmetrical on inspection without obvious abnormality. There is no CVA tenderness to palpation. No joint edema. LOWER EXTREMITIES: Calves are equal size bilaterally and non-tender. No edema. No discoloration. NEURO: Normal sensorium. No sensory or motor deficits noted. SKIN: No rash or jaundice noted. PROCEDURES: none CRITICAL CARE: none OBSERVATION NOTE: none Past Med/Surg History Problem List (Updated 12/16/24 @ 13:27 by Shu Caldwell PA-C) Elevated LFTs (Acute) HTN (hypertension) Dyslipidemia, goal LDL below 70 ASCVD (arteriosclerotic cardiovascular disease) Acute on chronic pancreatitis (Acute) GERD (gastroesophageal reflux disease) Bradycardia (Acute) Chronic pancreatitis Sinus bradycardia Tobacco abuse Lesion of pancreas Barretts esophagus RADHA (generalized anxiety disorder) CAD (coronary artery disease) (Acute) 2018-RCA stent x 2 07/2020-STEMI, s/p PCI to left circumflex with 2 MELLY. Post procedure complicated by V. fib arrest requiring defibrillation. 12/2020-NSTEMI s/p 3 Xience MELLY to the distal aspect of prior stent of the left posterior lateral branch vessel Depression GERD (gastroesophageal reflux disease) (Acute) Medical History (Updated 12/16/24 @ 13:27 by Shu Caldwell PA-C) Intestinal ischemia SVT (supraventricular tachycardia) Ischemic cardiomyopathy Non-sustained ventricular tachycardia Recurrent pancreatitis Non-ST elevation (NSTEMI) myocardial infarction Grade II diastolic dysfunction ST elevation myocardial infarction (STEMI) COVID-29 Oct 2021 Mobitz type 2 second degree atrioventricular block Tobacco abuse Splenic infarct Surgical History (Updated 12/16/24 @ 13:27 by Shu Caldwell PA-C) History of insertion of pancreatic stent Hx laparoscopic cholecystectomy (08/22/21) Laparoscopic Cholecystectomy Dr. Davidson 08/22/2021 History of endoscopic retrograde cholangiopancreatography x2 (08/31, 09/30) History of vasectomy Family History Mother Gallbladder disease Sister Gallbladder disease Other Diabetes Stroke Denies family history of Pancreatic disease Social History Smoking Status: Current every day smoker Tobacco Type: Cigarettes Cigarettes Per Day: 1/2 pack; Second Hand Exposure: No; Do You Dip or Chew Tobacco: No; Hx Alcohol Use: No Hx Substance Use: No Preferred Language: French Communication Ability: Effective Visual Impairment: No Limitations Hearing Ability: Normal Radio Program Director Required: No Beliefs That Will Affect Care: None marital status: Single Current Living Situation: Alone current occupational status: employed 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 [employer] Feels Safe at Home: Yes Assistive Devices: Glasses Allergies Allergies Allergy/AdvReac Type Severity Reaction Status Date / Time isosorbide [From Imdur] AdvReac Severe severe Verified 12/16/24 09:21 migraine Home Meds Home Medications Medication Instructions Recorded Confirmed amlodipine 5 mg tablet 5 mg PO QAM 12/09/24 12/16/24 aspirin 81 mg tablet,delayed 81 mg PO QAM 12/09/24 12/16/24 release ezetimibe 10 mg tablet 10 mg PO QAM 12/09/24 12/16/24 famotidine 40 mg tablet 40 mg PO HS 12/09/24 12/16/24 losartan 25 mg tablet 12.5 mg PO QAM 12/09/24 12/16/24 metoprolol succinate 25 mg 25 mg PO BID 12/09/24 12/16/24 tablet,extended release 24 hr nitroglycerin 0.4 mg sublingual 0.4 mg sublingual UD 12/09/24 12/16/24 tablet pantoprazole 40 mg tablet,delayed 40 mg PO QAM 12/09/24 12/16/24 release rosuvastatin 40 mg tablet 40 mg PO QAM 12/09/24 12/16/24 sertraline 100 mg tablet 100 mg PO QAM 12/09/24 12/16/24 ticagrelor 90 mg tablet (Brilinta) 90 mg PO BID 12/09/24 12/16/24 Results & Data (ED) Vital Signs Vital Signs - 24 hr 12/16/24 08:35 12/16/24 08:40 12/16/24 08:41 Temperature 36.6 C Temperature Source Oral Pulse Rate 80 Pulse Rate [Apical] 81 Pulse Rate from SpO2 Sensor Respiratory Rate 20 20 Respiratory Effort / Characteristics Non-Labored Non-Labored Respiratory Depth Normal Normal Blood Pressure 177/116 H Blood Pressure [Right Arm] 177/116 H Blood Pressure Mean 136 Blood Pressure Mean [Right Arm] 136 Pulse Oximetry 98 98 98 Oxygen Delivery Method Room Air Room Air Room Air Sepsis Recent Fever Within 48 Hours No Sepsis New/Unexplained Change in Mental Status No Sepsis Action Taken by Nursing No Action Required 12/16/24 08:57 12/16/24 09:01 12/16/24 09:24 Temperature Temperature Source Pulse Rate 68 79 79 Pulse Rate [Apical] Pulse Rate from SpO2 Sensor 70 70 Respiratory Rate 22 14 Respiratory Effort / Characteristics Respiratory Depth Blood Pressure 140/90 164/106 H Blood Pressure [Right Arm] Blood Pressure Mean 106 125 Blood Pressure Mean [Right Arm] Pulse Oximetry 98 98 Oxygen Delivery Method Room Air Room Air Sepsis Recent Fever Within 48 Hours Sepsis New/Unexplained Change in Mental Status Sepsis Action Taken by Nursing 12/16/24 09:57 12/16/24 10:33 12/16/24 11:33 Temperature Temperature Source Pulse Rate 64 62 59 L Pulse Rate [Apical] Pulse Rate from SpO2 Sensor 62 60 60 Respiratory Rate 21 16 19 Respiratory Effort / Characteristics Respiratory Depth Blood Pressure 171/105 H 152/85 H 160/97 H Blood Pressure [Right Arm] Blood Pressure Mean 127 107 118 Blood Pressure Mean [Right Arm] Pulse Oximetry 98 97 96 Oxygen Delivery Method Room Air Room Air Room Air Sepsis Recent Fever Within 48 Hours Sepsis New/Unexplained Change in Mental Status Sepsis Action Taken by Nursing 12/16/24 11:57 Temperature Temperature Source Pulse Rate 62 Pulse Rate [Apical] Pulse Rate from SpO2 Sensor 62 Respiratory Rate 20 Respiratory Effort / Characteristics Respiratory Depth Blood Pressure 153/99 H Blood Pressure [Right Arm] Blood Pressure Mean 117 Blood Pressure Mean [Right Arm] Pulse Oximetry 95 Oxygen Delivery Method Room Air Sepsis Recent Fever Within 48 Hours Sepsis New/Unexplained Change in Mental Status Sepsis Action Taken by Nursing Laboratory Data 12/16/24 08:42 12/16/24 09:56 Lab Results 12/16/24 12/16/24 12/16/24 Range/Units 08:42 09:56 10:58 WBC 7.10 (4.8-10.8) K/ul RBC 4.39 L (4.70-6.10) M/uL Hgb 14.7 (14.0-18.0) g/dl Hct 42.0 (42.0-52.0) % MCV 95.7 (80.0-100.0) fL MCH 33.5 (25.0-34.0) pg MCHC 35.0 (32.0-36.0) g/dL RDW Std Deviation 46.0 (36.4-46.3) fL RDW Coeff of Mckinley 13.0 (11.5-14.5) % Plt Count 318 (130-400) K/uL MPV 9.5 (9.4-12.4) fL Immature Gran % (Auto) 0.3 % Neut % (Auto) 63.6 % Lymph % (Auto) 26.9 % Barton % (Auto) 5.4 % Eos % (Auto) 2.7 % Baso % (Auto) 1.1 % Neut # (Auto) 4.52 (1.40-6.50) K/uL Lymph # (Auto) 1.91 (1.20-3.40) K/uL Barton # (Auto) 0.38 (0.11-0.59) K/uL Eos # (Auto) 0.19 (0.00-0.50) K/uL Baso # (Auto) 0.08 (0.00-0.20) K/uL Immature Gran # (Auto) 0.02 (0.01-0.20) K/uL Sodium Cancelled 137 Potassium Cancelled 3.5 Chloride Cancelled 105 Carbon Dioxide Cancelled 23 Anion Gap Cancelled 9 BUN Cancelled 16 Creatinine Cancelled 0.86 Est Cr Clr Drug Dosing Cancelled 72.3 eGFR Cancelled 102.26 BUN/Creatinine Ratio Cancelled 18.6 Glucose Cancelled 132 H Calcium Cancelled 8.9 Total Bilirubin Cancelled 0.5 AST Cancelled 14 ALT Cancelled 31 Alkaline Phosphatase Cancelled 101 Troponin I High Sens Cancelled 9.1 Total Protein Cancelled 6.6 Albumin Cancelled 3.9 Globulin Cancelled 2.7 Albumin/Globulin Ratio Cancelled 1.4 Amylase Cancelled 69 Lipase Cancelled 48 Urine Color Yellow Urine Appearance Clear (Clear) Urine pH 6.5 (4.5-7.5) Ur Specific [place] 1.013 (1.000-1.030) Urine Protein Negative (Negative) Urine Glucose (UA) Negative (Negative) Urine Ketones Negative (Negative) Urine Blood Negative (Negative) Urine Nitrite Negative (Negative) Urine Bilirubin Negative (Negative) Urine Urobilinogen Negative (Negative) Ur Leukocyte Esterase Negative (Negative) Administered Medications Hydromorphone HCl (Hydromorphone Inj 0.5 Mg/0.5 Ml Syr) 0.5 mg IV Q6H PRN PRN Reason: Severe Pain (Scale 7, 8, 9,10) Stop: 12/30/24 12:39 Last Admin: 12/16/24 14:41 Dose: 0.5 mg Documented By: QGV Sodium Chloride (Nss) 1,000 mls @ 125 mls/hr IV .Q8H ALYCIA Stop: 12/17/24 08:59 Last Admin: 12/16/24 09:12 Dose: 125 mls/hr Documented By: CARLOS ALBERTO Discontinued Medications Diphenhydramine HCl (Diphenhydramine 50 Mg/Ml Vial) 12.5 mg IV NOW STA Stop: 12/16/24 08:58 Last Admin: 12/16/24 09:12 Dose: 12.5 mg Documented By: CARLOS ALBERTO Hydromorphone HCl (Hydromorphone Inj 0.5 Mg/0.5 Ml Syr) 0.5 mg IV NOW STA Stop: 12/16/24 08:58 Last Admin: 12/16/24 09:11 Dose: 0.5 mg Documented By: CARLOS ALBERTO Prochlorperazine (Compazine) 2 mls @ 1 mls/min IV ONE ONE Stop: 12/16/24 08:58 Last Admin: 12/16/24 09:12 Dose: 1 mls/min Documented By: CARLOS ALBERTO Famotidine (Pepcid 20mg Iv Push) 20 mg in 5 mls @ 2.5 mls/min IV NOW STA Stop: 12/16/24 09:00 Last Admin: 12/16/24 09:11 Dose: 2.5 mls/min Documented By: CARLOS ALBERTO Morphine Sulfate (Morphine Sulfate 4 Mg/Ml 1 Ml Carp\Vial) 4 mg IV NOW STA Stop: 12/16/24 11:46 Last Admin: 12/16/24 11:50 Dose: 4 mg Documented By: CARLOS ALBERTO Imaging Data Radiologist's Impression: Abdomen/Pelvis CT 12/16/24 08:[address] WITH ORAL CONTRAST CT DOSE: 369.84 mGy.cm HISTORY: mid abd pain, hx of pancreatitis duodenal stent TECHNIQUE: Multiaxial CT images of the abdomen and pelvis were performed following the use of oral contrast. A dose lowering technique was utilized adhering to the principles of ALARA. COMPARISON STUDY: 11/24/2024 FINDINGS: ABDOMEN: Gallbladder is surgically absent. Liver, spleen, and adrenal glands have an unremarkable non-IV contrast appearance. Stable small cyst at the right kidney. No hydronephrosis or calculi bilaterally. There are scattered atherosclerotic calcifications. No abdominal aortic aneurysm. There is a stable stent extending from the pancreas into the duodenum. Stable calcifications consistent with chronic pancreatitis. There is interval mild inflammation of the pancreas consistent with superimposed acute pancreatitis. No pancreatic pseudocyst or abscess seen. Pelvis: Prostate is mildly enlarged. Urinary bladder is mildly distended. There is mild retained stool. No bowel inflammation or obstruction. No free fluid, free air, or abscess. No enlarged adenopathy. Osseous structures: There are mild degenerative changes at the lumbar spine and hips. IMPRESSION: Mild acute pancreatitis. No other acute findings seen. Otherwise as described. ACT 112: Negative or not required by law. The above report was generated using voice recognition software. It may contain grammatical, syntax or spelling errors. Electronically signed by: Taras Mcpherson M.D. 12/16/2024 11:42 AM Discharge Plan Visit Data Chief Complaint: Abdominal Pain ED Provider: Danish Grullon Discharge Problem: Abdominal pain
[2024-12-16 10:31] LABS: Albumin Globulin Ratio 1.4 (0.9-2); Albumin Level 3.9 gm/dl (3.4-5.0); BUN Creatinine Ratio 18.6 (10-20); Bilirubin,Total 0.5 mg/dl (0.2-1.0); Calcium 8.9 mg/dl (8.6-10.3); Creatinine Clr Calc Pharmacy 72.3 ml/min; Globulin 2.7 gm/dl (2.5-4.0); Potassium 3.5 mmol/L (3.5-5.1); Total Protein 6.6 gm/dl (6.0-8.3)
[2024-12-16 10:35] LABS: Troponin I High Sensitivity 9.1 pg/ml (0-20)
[2024-12-16 11:15] LABS: Appearance Urine Clear (Clear); Bilirubin Urine Negative (Negative); Blood Urine Negative (Negative); Color Urine Yellow; Glucose Urine UA Negative (Negative); Ketones Urine Negative (Negative); Leukocyte Esterase Urine Negative (Negative); Nitrite Urine Negative (Negative); Protein Urine Negative (Negative); Specific Gravity Urine 1.013 (1.000-1.030); Urobilinogen Urine Negative (Negative); pH Urine 6.5 (4.5-7.5)
--- OUTSIDE RECORDS SUMMARY | 2024-12-16 11:37 | External Medical Summary | Summary of Care ---
Author Name Unknown Organization [facility] Address [address] [facility] [address] Phone [phone] Care Team Providers Care Management Developer Name Role Phone Wade Bragg MD Primary Care Provider [phone]- [phone] Reason for Visit * Reason Onset Date Comments Hospital Follow-Up 12/12/2024 DANIEL ([facility]) Encounter Details Date Type Department Care Team (Late st Contact Info) Description 12/12/2024 Telephone [facility] [address] [place] [address] Nikki Padilla, DOMINGUEZ Hospital Follow-Up (DANIEL ([facility])) Allergies Active Allergy Reactions Criticality Noted Date Comments Isosorbide Nitrate 07/30/2023 Severe Mirgrains documented as of this encounter (statuses as of 12/12/2024) Medications Nitroglycerin 0.4 MG Sublingual Tablet Sublingual (Nitrostat)Indicati ons:Coronary artery disease involving [place] coronary artery of [place] heart without angina pectoris place 1 tablet under the tongue if needed every 5 minutes for chest pain for 3 doses IF NO RELIEF AFTER THIRD DOSE CALL 911. 25 Tablet 11 3 Active Magnesium Oxide (Antacid) 400 MG Oral Tablet take 1 tablet by mouth IN THE MORNING 90 Tablet 3 3 Active Famotidine 40 MG Oral Tablet (Pepcid)Indications :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,Gastroeso phageal reflux disease without esophagitis take 1 tablet by mouth BEFORE BEDTIME 90 Tablet 2 4 Active Aspirin 81 MG Oral Tablet Delayed Release (Aspirin Low Dose) Take 1 tablet by mouth every morning 90 Tablet 3 4 Active Metoprolol Succinate ER 25 MG Oral Tablet Extended Release 24 Hour (toPROL XL)Indications:Siva nary artery disease involving [place] coronary artery of [place] heart without angina pectoris,Ischemic cardiomyopathy,Dysl ipidemia, goal LDL below 70,Tobacco use disorder Take [...] on tongue. 30 Tablet 2 4 Active Brilinta 90 MG Oral Tablet (Ticagrelor)Indicat ions:NSTEMI (non-ST elevation myocardial infarction) (HCC) TAKE 1 TABLET BY MOUTH EVERY DAY IN THE MORNING AND BEFORE BEDTIME 60 Tablet 11 4 Active Ezetimibe 10 MG Oral Tablet (Zetia)Indications: Coronary artery disease involving [place] coronary artery of [place] heart without angina pectoris,Dyslipidem ia, goal LDL below 130,Old [place] (myocardial infarction) Take 1 Tablet by mouth at bedtime. 90 Tablet 3 4 Active Pantoprazole Sodium 40 MG Oral Tablet Delayed Release (Protonix) Take 1 Tablet by mouth in the morning. 90 Tablet 3 4 Active Sertraline HCl 100 MG Oral Tablet (Zoloft) Take 1 Tablet by mouth in the morning. 90 Tablet 3 4 Active amLODIPine Besylate 5 MG Oral Tablet (Norvasc) Take 1 Tablet by mouth in the morning. 30 Tablet 3 10/06/2024 9:22 AM EST 4 Active Rosuvastatin Calcium 40 MG Oral Tablet (Crestor) TAKE 1 TABLET BY MOUTH EVERY DAY IN THE MORNING 90 Tablet 1 5 Active documented as of this encounter (statuses as of 12/12/2024) Active Problems Problem Noted Date Diagnosed Date NSTEMI (non-ST elevated myocardial infarction) 1 12/06/2023 Bradycardia 04/20/2024 Ischemic cardiomyopathy 06/22/2023 NSVT (nonsustained ventricular tachycardia) 06/[address] elevation myocardial infarction (S ANT) 06/22/2023 HFrEF (heart failure with reduced ejection fract ion) 06/22/2023 S/P angioplasty with stent 05/28/2023 Gastroesophageal reflux dise ase with esophagitis without hemorrhage 12/16/2020 [place] (myocardial infarction) 06/27/2018 Coronary artery disease of n ative artery of [place] heart with stable angina pectoris 06/27/2018 History of acute pancreatitis 06/27/2018 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 Dyslipidemia, goal LDL below 70 09/18/2013 Generalized anxiety disorder 03/09/2013 Tobacco use disorder 01/03/2013 documented as of this encounter (statuses as of 12/12/2024) Resolved Problems Problem Noted Date Diagnosed Date [...] as of this encounter (statuses as of 12/12/2024) Immunizations Name Administration Dates Next Due Hepatitis [...] you got the money to buy more. Patient declined Within the past 12 months, t he food you bought just didn't last and you didn't have money to get more. Patient declined 10/2024 Childcare Answer Date Recorded Do you feel overwhelmed with taking care of a child, family member or friend? No 11/11/2024 Does your family need help f inding childcare? (Household - for ages 0-17 years) Not on file 11/11/2024 Clothing Answer Date Recorded Have you been unable to get clothing when it was really needed? No 11/11/2024 Is your family able to get c lothes or diapers when needed? (Household - for ages 0-17 years) Not on file 11/11/2024 Personal Safety Answer Date Recorded Do you feel unsafe or have concerns for your saf ety? No 11/11/2024 Do you have concerns for you r family's safety? (Household - for ages 0-17 years) Not on file 11/11/2024 Utilities Answer Date Recorded Do you have trouble paying y our heating, water, or electric bill? No 11/11/2024 Is your family able to pay t he heat, water, or electric bill? (Household - for ages 0-17 years) Not on file 11/11/2024 Does your family have access to good internet? (Household - for ages 0-17 years) Not on file 11/11/2024 Employment Status Answer Date Recorded Are you unemployed or without regular income? No 11/11/2024 Does the household have a re gular source of income? (Household - for ages 0-17 years) Not on file 11/11/2024 Social Connections Answer Date Recorded How often do you feel lonely or isolated from th ose around you? Never 11/11/2024 Financial Resource Strain Answer Date R ecorded Do you have any trouble payi ng for your medications, or do you think you might in the future? No 11/11/2024 Does your family have troubl e paying for medicine? (Household - for ages 0-17 years) Not on file 11/11/2024 Transportation Needs Answer Date Record ed Do you have trouble getting a ride to medical visits or work? (Adult - for ages 18 years and over) Not on file 11/11/2024 Does your family have a hard time getting a ride to doctors visits? (Household - for ages 0-17 years) Not on file 11/11/2024 Has lack of transportation k ept you from medical appointments, meetings, work, or from getting things needed for daily living? Check all that apply. No 11/11/2024 Do you (or your family) have trouble finding or paying for a ride (transportation)? (Household - for ages 0-17 years) Not on file 11/11/2024 Housing Stability Answer Date Recorded Do you currently live in a s helter or have no steady place to sleep at night? No 11/11/2024 Do you think you are at risk of becoming homeless? (Adult - for ages 18 years and over) Not on file 11/11/2024 Does your family worry about paying for your home or becoming homeless? (Household - for ages 0-17 years) Not on file 0 11/11/2024 Are you homeless or worried that you might be in the future? No 11/11/2024 Are you (or your family) hank eless or worried that you might be in the future? (Household - for ages 0-17 years) Not on file Food Insecurity Answer Date Recorded Do you need food for this week? No 11/11/2024 Are you able to get enough f ood for your family? (Household - for ages 0-17 years) Not on file 11/11/2024 Does your family need food t his week? (Household - for ages 0-17 years) Not on file 11/11/2024 Do you always have enough fo od for your family? (Household - for ages 0-17 years) Not on file 11/11/2024 Food Insecurity Answer Date Recorded Within the past 12 months, y ou worried that your food would run out before you got the money to buy more. Patient declined Within the past 12 months, t he food you bought just didn't last and you didn't have money to get more. Patient declined 10/2024 Do you need food for this week? No 11/11/2024 Sex and Gender Information Value Date Recorded Sex Assigned at Male 05/27/2023 12:36 PM EDT Legal Sex Male 5:57 AM EST Gender Identity Male 05/27/2023 12:36 PM EDT Sexual Orientation Straight 05/27/2023 12 :36 PM EDT documented as of this encounter Functional Status * Are you deaf or do you have serious difficulty hearing? Answer Date of Assessment Author No 10/05/2024 9:31 AM Ella Samayoa RN * Are you blind or do you have serious difficulty seeing, even when wearing glasses? Answer Date of Assessment Author No 10/05/2024 9:31 AM Ella Samayoa RN * Do you have serious difficulty walking or climbing stairs? (5 years old or older) Answer Date of Assessment Author No 10/05/2024 9:31 AM Ella Samayoa RN * Do you have difficulty dressing or bathing? (5 years old or older) Answer Date of Assessment Author No 10/05/2024 9:31 AM Ella Samayoa RN * Because of a physical, mental, or emotional condition, do you have difficulty doing errands alone such as visiting a doctors office or shopping? (15 years old or older) Answer Date of Assessment Author No 10/05/2024 9:31 AM Ella Samayoa RN documented as of this encounter Mental Status * Because of a physical, mental, or emotional condition, do you have serious difficulty concentrating, remembering, or making decisions? (5 years old or older) Answer Entry Date Author No 10/05/2024 9:31 AM EST Ella Gan RN documented in this encounter Miscellaneous Notes * Telephone Encounter - Nikki Padilla RN - 12/12/2024 2:41 PM EST Transitions of Care Note Reason for Referral:Recent Admission Phone visit for follow up: DANIEL #1 Admitted to: [facility], Date: 12/09/2024 Discharged to: Home, Date: 12/11/2024 Diagnosis driving hospitalization: Recurrent Pancreatitis Message left on voicemail for patient. When they call back please transfer them to me at [phone]. If you are unable to reach me or my voicemail please route this message back to me. Thank you. Attempted Phone Call First Attempt Call Outcome Left Voicemail/Message documented in this encounter Plan of Treatment Upcoming Encounters Date Type Department Care Team (Latest Contact Info) Description 01/04/2025 7:30 AM EDT Hospital Encounter OR [facility], Operating Room, [facility] - 4th Floor [address] [place] [address] Kike Gross, [address] [place] [address] 01/04/2025 7:30 AM EDT - 01/04/2025 8:23 AM EDT Surgery OR [facility], Operating Room, [facility] - 4th Floor [address] [place] [address] Kike Gross, [address] [place] [address] ENDOSCOPIC RETROGRADE CHOLANGIOPANCREATOGRAPHY (ERCP) W/STENT REMOVAL AND EXCHANGE; INC DILATION, GUIDE WIRE AND SPHINCTEROTOMY 02/15/2025 1:00 PM EDT Office Visit Gastroenterology , [facility] [address] [place] [address] Taylor Boyer CRNP [address] [place] [address] 08/29/2025 2:00 PM EST Office Visit Cardiology, [facility] [address] [facility] [place] [address] Carmen Hutton PA-C [address] [place] [address] Scheduled Procedures Name Priority Associated Diagnoses Date/Ti [...] TOBACCO CESSATION (REFER TO SMARTSET #3299) 1969 Hepatitis C Screening 1987 Pneumococcal Vaccine: 50+ Years (1 of 2 - PCV) 1988 Cologuard 2014 Fecal Occult Blood Test 2014 [...] on patient's age to complete this topic Meningitis B Vaccine (Bexsero/Trumemba) Aged Out No longer eligible based on patient's age to complete this topic documented as of this encounter Medical Devices Implanted Type Area Maintenance Clerk Device Identifier Shelf Expiration Date Model / Serial / Lot Stent Panc Sgl Pigtail [id number] - [id number] Implanted:Qty: 1 on 06/28/2024 by Kike Gross DO at [facility] N/A: Stomach COOK : HARRISON THORNTON 04/12/2026 [id number] / / [id number] documented as of this encounter Additional Health Concerns Infection Onset Date Last Indicated Resolved Time Coronavirus Comment:Coronavirus N63 (+) at outside facility 10/03/2024 10/06/2024 documented as of this encounter Advance Directives * Full Code (Latest Code Status on File) Date Activated Date Inactivated Comments 10/05/2024 9:50 AM 10/06/2024 3:20 PM This order reflects the patients wishes and were consensually agreed upon. Question Answer Comments Discussion of Advance Direct nadine occurred with: Not Discussed due to patient's condition * Full Code Date Activated Date Inactivated Comments 08/14/2022 1:00 AM 08/17/2022 2:38 PM This order r eflects the patients wishes and were consensually agreed upon. Question Answer Comments Discussion of Advance Directives occurred with: Patient Care Teams Management Developer Relationship Specialty Start Date End Date Wade Bragg MD PCP - General Family Medicine 03/24/18 documented as of this encounter
--- OUTSIDE RECORDS SUMMARY | 2024-12-16 11:37 | External Medical Summary | Summary of Care ---
Author Name Unknown Organization [facility] Address [address] [place] [address] Phone [phone] Care Team Providers Care Infection Control Nurse Name Role Phone Wade Bragg MD Primary Care Provider [phone]- [phone] Reason for Visit * Reason Onset Date Comments Hospital Follow-Up 12/12/2024 DANIEL ([facility]) Encounter Details Date Type Department Care Team (Late st Contact Info) Description 12/12/2024 Telephone [facility] [address] [place] [address] iNkki Padilla, DOMINGUEZ Hospital Follow-Up (DANIEL ([facility])) Allergies Active Allergy Reactions Criticality Noted Date Comments Isosorbide Nitrate 07/30/2023 Severe Mirgrains documented as of this encounter (statuses as of 12/13/2024) Medications Nitroglycerin 0.4 MG Sublingual Tablet Sublingual (Nitrostat)Indicati ons:Coronary artery disease involving mak[place] coronary artery of makah heart without angina pectoris place 1 tablet [...] Hour (toPROL XL)Indications:Siva nary artery disease involving [place] coronary artery of makah heart without angina pectoris,Ischemic cardiomyopathy,Dysl ipidemia, goal [...] Oral Tablet (Zetia)Indications: Coronary artery disease involving mak[place] coronary artery of makah heart without angina pectoris,Dyslipidem ia, goal LDL below 130,Old [place] (myocardial infarction) Take 1 Tablet by mouth [...] as of this encounter (statuses as of 12/13/2024) Active Problems Problem Noted Date Diagnosed Date [...] artery disease of n ative artery of makah heart with stable angina pectoris 06/27/2018 History of acute pancreatitis 06/27/2018 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 Dyslipidemia, goal LDL below 70 09/18/2013 Generalized anxiety disorder 03/09/2013 Tobacco use disorder 01/03/2013 documented as of this encounter (statuses as of 12/13/2024) Resolved Problems Problem Noted Date Diagnosed Date [...] as of this encounter (statuses as of 12/13/2024) Immunizations Name Administration Dates Next Due Hepatitis [...] for follow up: DANIEL #1 Admitted to: [facility], Date: 12/09/2024 Discharged to: Home, Date: 12/11/2024 Diagnosis driving hospitalization: Recurrent Pancreatitis Message left on voicemail for patient. When they call back please transfer them to me at [phone]. If you are unable to reach me or my voicemail please route this message back to me. Thank you. Attempted Phone Call First Attempt Call Outcome Left Voicemail/Message Transitions of Care Note Reason for Referral:Recent Admission Phone visit for follow up: DANIEL #2 Admitted to: [facility], Date: 12/09/2024 Discharged to: Home, Date: 12/11/2024 Diagnosis driving hospitalization: Recurrent Pancreatitis Message left on voicemail for patient. When they call back please transfer them to me at [phone]. If you are unable to reach me or my voicemail please route this message back to me. Thank you. Attempted Phone Call Second Attempt Call Outcome Left Voicemail/Message documented in this encounter Plan of Treatment Upcoming Encounters Date Type Department Care Team (Latest Contact Info) Description 01/04/2025 7:30 AM EDT Hospital Encounter OR [facility], Operating Room, [facility] - 4th Floor [address] [place] [address] Kike Gross, DO [address] [place] [address] 01/04/2025 7:30 AM EDT - 01/04/2025 8:23 AM EDT Surgery OR [facility], Operating Room, [facility] - 4th Floor [address] [place] [address] Kike Gross, [address] [place] [address] ENDOSCOPIC RETROGRADE CHOLANGIOPANCREATOGRAPHY (ERCP) W/STENT REMOVAL AND EXCHANGE; INC DILATION, GUIDE WIRE AND SPHINCTEROTOMY 02/15/2025 1:00 PM EDT Office Visit Gastroenterology , [facility] [address] [place] [address] Taylor Boyer CRNP [address] [place] [address] 08/29/2025 2:00 PM EST Office Visit Cardiology, [facility] [address] [place] [address] Carmen Hutton PA-C [address] [place] [address] Scheduled Procedures Name Priority Associated Diagnoses Date/Ti al ENDOSCOPIC RETROGRADE CHOLANGIOPANCREATOGRAPHY (ERCP) W/STENT REMOVAL AND EXCHANGE; INC DILATION, GUIDE WIRE AND SPHINCTEROTOMY Recall Encounter for removal of pancreatic stent 01/04/2025 7:30 AM EDT ESOPHAGOGASTRODUODENOSCOPY ( EGD), FLEXIBLE, TRANSORAL, DIAGNOSTIC Recall 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 COLONOSCOPY FLEXIBLE PROXIMA L DIAGNOSTIC Recall History of colonic polyps Health Maintenance Due Date Last Done Comments DISCUSS TOBACCO CESSATION (REFER TO SMARTSET #2416) 1969 Hepatitis C Screening 1987 Pneumococcal Vaccine: [...] this encounter Medical Devices Implanted Type Area Director Of Grants Device Identifier Shelf Expiration Date Model / Serial / Lot Stent Panc Sgl Pigtail [id number] - [id number] Implanted:Qty: 1 on 06/28/2024 by Kike Gross DO at ENDOSCOPY [facility] N/A: Stomach COOK : HARRISON THORNTON 04/12/2026 [id number] / / [id number] documented as of this encounter Additional Health [...] Advance Directives occurred with: Patient Care Teams Infection Control Nurse Relationship Specialty Start Date End Date Wade Bragg MD [address] [place] [address] PCP - General Family Medicine 12/13/24 documented as of this encounter
--- NOTE | 2024-12-16 11:45 | CT Scan Report ---
ABDOMEN AND PELVIS CT WITH ORAL CONTRAST CT DOSE: 369.84 mGy.cm HISTORY: mid abd pain, hx of pancreatitis duodenal stent TECHNIQUE: Multiaxial CT images of the abdomen and pelvis were performed following the use of oral co ntrast. A dose lowering technique was utilized adhering to the principles of ALARA. COMPARISON STUDY: 11/24/2024 FINDINGS: ABDOMEN: Gallbladder is surgically absent. Liver, spleen, and adrenal glands have an unremarkable non -IV contrast appearance. Stable small cyst at the right kidney. No hydronephrosis or calculi bilatera lly. There are scattered atherosclerotic calcifications. No abdominal aortic aneurysm. There is a sta ble stent extending from the pancreas into the duodenum. Stable calcifications consistent with chroni c pancreatitis. There is interval mild inflammation of the pancreas consistent with superimposed acut e pancreatitis. No pancreatic pseudocyst or abscess seen. Pelvis: Prostate is mildly enlarged. Urinary bladder is mildly distended. There is mild retained stoo l. No bowel inflammation or obstruction. No free fluid, free air, or abscess. No enlarged adenopathy. Osseous structures: There are mild degenerative changes at the lumbar spine and hips. IMPRESSION: Mild acute pancreatitis. No other acute findings seen. Otherwise as described. ACT 112: Negative or not required by law. The above report was generated using voice recognition software. It may contain grammatical, syntax o r spelling errors. Electronically signed by: Taras Mcpherson M.D. 12/16/2024 11:42 AM
[2024-12-16] MEDS: MoRPHine SULFATE 4 MG/ML 1 ML CARP\\VIAL IV STA (11:50)
--- NOTE | 2024-12-16 12:11 | History & Physical Report ---
Date of Service December 16, 2024 Assessment & Plan (1) Acute on chronic pancreatitis: (2) CAD (coronary artery disease): (3) GERD (gastroesophageal reflux disease): (4) HTN (hypertension): (5) Dyslipidemia, goal LDL below 70: (6) RADHA (generalized anxiety disorder): Plan This is a 54 y/o male with PMH of CAD w/ multiple prior AL, PCI with stents, chronic systolic HF, NSVT, hx bradycardia, chronic pancreatitis s/p ERCP with pancreatic stent placement 10/03, GERD, dyslipidemia, anxiety, Casanova esophagus, and other history as outlined below who presented to the ED today via EMS for worsening abdominal pain. Work-up in the ED reveal lipase of 48, no leukocytosis or LFT elevation. CT abd/pel showed mild acute pancreatitis. Pt was referred for admission for management of pain, pancreatitis flare. #Acute on chronic pancreatitis #Abdominal pain - Admit to med telemetry - Clear liquid diet - Continue IVF started in the ED - Pain control - acetaminophen, oral oxycodone for moderate pain, IV Dilaudid for severe pain - PRN anti-emetics - Consult GI - Labs in the AM - CBC, BMP, LFTs, Mg, Phos, Lipase #CAD s/p multiple stents - denies anginal symptoms, initial troponin normal at 9.1, EKG personally reviewed and without significant ischemic changes Chronic, stable Continue outpatient regimen #GERD Chronic, stable Continue PPI therapy #Hypertension - BP slightly elevated in the ED but suspect due to missed morning medications, significant pain Resume home medications and monitor closely #Dyslipidemia Chronic, stable - continue statin #RADHA Chronic, stable - continue sertraline Pt seen and reviewed with collaborating physician, Dr. Álvarez. Plan of care discussed and as outlined above. Code status: full code DVT prophylaxis: Lovenox I spent a total of 78 minutes coordinating, documenting, and providing care for this patient excluding time spent in the performance of separately billed services or time spent by another provider/QHP. Audi Caldwell PA-C History of Present Illness Chief Complaint: abdominal pain Primary Care Provider: Wade Bragg MD This is a 54 y/o male with PMH of CAD w/ multiple prior AL, PCI with stents, chronic systolic HF, NSVT, hx bradycardia, chronic pancreatitis s/p ERCP with pancreatic stent placement 10/03, GERD, dyslipidemia, anxiety, Casanova esophagus, and other history as outlined below who presented to the ED today via EMS for worsening abdominal pain. Pt was most recently admitted to this facility from 12/09-12/11/24 with acute on chronic pancreatitis. He was managed with bowel rest, IVF, and IV pain medications with improvement. He was tolerating a clear liquid diet and was able to be discharged home. He reports that since being home, he was initially able to manage his pain with Tylenol every 4-6 hours. Appetite decreased but was able to eat small amounts. However, last evening, the pain again worsened so he went to the [facility] ED where he reports only being briefly evaluated, given a Percocet but told not to take it until he got home, which he did. He does not feel like the Percocet did much for the pain itself but he was able to get some sleep. This morning, when he woke up, the pain was more severe so he called EMS and was brought to the ED. He describes the pain as sharp, epigastric, radiates to his back. Associated nausea but no vomiting, fevers, chills. Bowel movements are baseline diarrhea. Denies melena or hematochezia. He denies chest pain, SOB, BARRON, peripheral edema, CERDA, syncope, dizziness, dysuria, hematuria, or dark urine. He has a pancreatic stent placed on 06/28/24 for treatment of chronic pancreatitis, which was to be moved in 4 months. However, this procedure was delayed and pt is now scheduled for ERCP with stent exchange on 01/04/25 at [facility] by Dr. Gross. ERCP 06/28/24: - The major papilla was located entirely within a diverticulum. - Prior biliary sphincterotomy appeared open. - Prior pancreatic sphincterotomy appeared open. - Biliary sludge extracted with a balloon. . - Moderate chronic pancreatitis. - One pancreatic stent was placed into the ventral pancreatic duct for treatment of chronic pancreatitis. (Repeat ERCP in 4 months to remove stent. If stricture still present, plan for stricture dilation at that time). - Indomethacin given to decrease risk of post-ERCP pancreatitis. EUS 09/20/24: - Evidence of a cholecystectomy. - There was no sign of significant pathology in the common bile duct. - There was abnormal echogenicity in the visualized portion of the liver. This was hyperechoic. Tissue has not been obtained. However, the endosonographic appearance is suggestive of fatty infiltration. - Endosonographic imaging of the pancreas showed sonographic changes consistent with moderate chronic pancreatitis. - A 13 mm poorly defined mass was identified in the pancreatic head. Fine needle aspiration performed. The appearance is suggestive if chronic pancreatitis. (Cytology showed no malignancy; findings c/w chronic pancreatitis) - One benign lymph node was visualized in the annie hepatis region. - Endosonographic images of the left adrenal gland were unremarkable. Allergies Allergy/AdvReac Type Severity Reaction Status Date / Time isosorbide [From Imdur] AdvReac Severe severe Verified 12/16/24 09:21 migraine Home Medications Medication Instructions Recorded Confirmed Type amlodipine 5 mg tablet 5 mg PO QAM 12/09/24 12/16/24 History aspirin 81 mg tablet,delayed 81 mg PO QAM 12/09/24 12/16/24 History release ezetimibe 10 mg tablet 10 mg PO QAM 12/09/24 12/16/24 History famotidine 40 mg tablet 40 mg PO HS 12/09/24 12/16/24 History losartan 25 mg tablet 12.5 mg PO QAM 12/09/24 12/16/24 History metoprolol succinate 25 mg 25 mg PO BID 12/09/24 12/16/24 History tablet,extended release 24 hr nitroglycerin 0.4 mg sublingual 0.4 mg sublingual UD 12/09/24 12/16/24 History tablet pantoprazole 40 mg tablet,delayed 40 mg PO QAM 12/09/24 12/16/24 History release rosuvastatin 40 mg tablet 40 mg PO QAM 12/09/24 12/16/24 History sertraline 100 mg tablet 100 mg PO QAM 12/09/24 12/16/24 History ticagrelor 90 mg tablet (Brilinta) 90 mg PO BID 12/09/24 12/16/24 History Past Med/Surg History Problem List (Updated 12/16/24 @ 13:27 by Shu Caldwell PA-C) Elevated LFTs (Acute) HTN (hypertension) Dyslipidemia, goal LDL below 70 ASCVD (arteriosclerotic cardiovascular disease) Acute on chronic pancreatitis (Acute) GERD (gastroesophageal reflux disease) Bradycardia (Acute) Chronic pancreatitis Sinus bradycardia Tobacco abuse Lesion of pancreas Barretts esophagus RADHA (generalized anxiety disorder) CAD (coronary artery disease) (Acute) 2017-RCA stent x 2 07/2020-STEMI, s/p PCI to left circumflex with 2 MELLY. Post procedure complicated by V. fib arrest requiring defibrillation. 12/2020-NSTEMI s/p 3 Xience MELLY to the distal aspect of prior stent of the left posterior lateral branch vessel Depression GERD (gastroesophageal reflux disease) (Acute) Medical History (Updated 12/16/24 @ 13:27 by Shu Caldwell PA-C) Intestinal ischemia SVT (supraventricular tachycardia) Ischemic cardiomyopathy Non-sustained ventricular tachycardia Recurrent pancreatitis Non-ST elevation (NSTEMI) myocardial infarction Grade II diastolic dysfunction ST elevation myocardial infarction (STEMI) COVID-29 Oct 2021 Mobitz type 2 second degree atrioventricular block Tobacco abuse Splenic infarct Surgical History (Updated 12/16/24 @ 13:27 by Shu Caldwell PA-C) History of insertion of pancreatic stent Hx laparoscopic cholecystectomy (08/22/21) Laparoscopic Cholecystectomy Dr. Davidson 08/22/2021 History of endoscopic retrograde cholangiopancreatography x2 (08/31, 09/30) History of vasectomy Family History Mother Gallbladder disease Sister Gallbladder disease Other Diabetes Stroke Denies family history of Pancreatic disease Social History Smoking Status: Current every day smoker Tobacco Type: Cigarettes Cigarettes Per Day: 1/2 pack; Second Hand Exposure: No; Do You Dip or Chew Tobacco: No; Hx Alcohol Use: No Hx Substance Use: No Preferred Language: Irish Communication Ability: Effective Visual Impairment: No Limitations Hearing Ability: Normal Pharmacist'S Aide Required: No Beliefs That Will Affect Care: None marital status: Single Current Living Situation: Alone current occupational status: employed 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 [employer] Other Information That Helps Us Care for You: No Feels Safe at Home: Yes Safety Concerns: Feels Safe At This Time Assistive Devices: Glasses Review of Systems Review of Systems: All systems reviewed & are unremarkable except as noted in Subjective Physical Exam Physical Exam: General: awake, alert, NAD HEENT: no scleral icterus, moist oral mucosa Neck: supple, trachea midline Heart: RRR Lungs: CTA bilaterally, no W/R/R Abdomen: soft, mild epigastric tenderness without guarding or rebound, non- distended, +BS Extremities: no pedal edema, distal pulses intact and equal Skin: warm, dry, no jaundice Neurologic: OX3, no confusion or dysarthria, moving all extremities, no focal deficits Results & Data Results & Data Vital Signs (Past 12 Hours) Vital Signs Temp Pulse Pulse Resp BP BP Pulse Ox 12/16/24 11:33 59 L 19 160/97 H 96 12/16/24 10:33 62 16 152/85 H 97 12/16/24 09:57 64 21 171/105 H 98 12/16/24 09:24 79 14 164/106 H 98 12/16/24 09:01 79 12/16/24 08:57 68 22 140/90 98 12/16/24 08:41 98 12/16/24 08:40 81 20 177/116 H 98 12/16/24 08:35 36.6 C 80 20 177/116 H 98 O2 Del Method 12/16/24 11:33 Room Air 12/16/24 10:33 Room Air 12/16/24 09:57 Room Air 12/16/24 09:24 Room Air 12/16/24 09:01 12/16/24 08:57 Room Air 12/16/24 08:41 Room Air 12/16/24 08:40 Room Air 12/16/24 08:35 Room Air Laboratory Results Lab Results 12/16/24 12/16/24 12/16/24 Range/Units 08:42 09:56 10:58 WBC 7.10 (4.8-10.8) K/ul RBC 4.39 L (4.70-6.10) M/uL Hgb 14.7 (14.0-18.0) g/dl Hct 42.0 (42.0-52.0) % MCV 95.7 (80.0-100.0) fL MCH 33.5 (25.0-34.0) pg MCHC 35.0 (32.0-36.0) g/dL RDW Std Deviation 46.0 (36.4-46.3) fL RDW Coeff of Mckinley 13.0 (11.5-14.5) % Plt Count 318 (130-400) K/uL MPV 9.5 (9.4-12.4) fL Immature Gran % (Auto) 0.3 % Neut % (Auto) 63.6 % Lymph % (Auto) 26.9 % Kinney % (Auto) 5.4 % Eos % (Auto) 2.7 % Baso % (Auto) 1.1 % Neut # (Auto) 4.52 (1.40-6.50) K/uL Lymph # (Auto) 1.91 (1.20-3.40) K/uL Kinney # (Auto) 0.38 (0.11-0.59) K/uL Eos # (Auto) 0.19 (0.00-0.50) K/uL Baso # (Auto) 0.08 (0.00-0.20) K/uL Immature Gran # (Auto) 0.02 (0.01-0.20) K/uL Sodium Cancelled 137 Potassium Cancelled 3.5 Chloride Cancelled 105 Carbon Dioxide Cancelled 23 Anion Gap Cancelled 9 BUN Cancelled 16 Creatinine Cancelled 0.86 Est Cr Clr Drug Dosing Cancelled 72.3 eGFR Cancelled 102.26 BUN/Creatinine Ratio Cancelled 18.6 Glucose Cancelled 132 H Calcium Cancelled 8.9 Total Bilirubin Cancelled 0.5 AST Cancelled 14 ALT Cancelled 31 Alkaline Phosphatase Cancelled 101 Troponin I High Sens Cancelled 9.1 Total Protein Cancelled 6.6 Albumin Cancelled 3.9 Globulin Cancelled 2.7 Albumin/Globulin Ratio Cancelled 1.4 Amylase Cancelled 69 Lipase Cancelled 48 Urine Color Yellow Urine Appearance Clear (Clear) Urine pH 6.5 (4.5-7.5) Ur Specific Revloc 1.013 (1.000-1.030) Urine Protein Negative (Negative) Urine Glucose (UA) Negative (Negative) Urine Ketones Negative (Negative) Urine Blood Negative (Negative) Urine Nitrite Negative (Negative) Urine Bilirubin Negative (Negative) Urine Urobilinogen Negative (Negative) Ur Leukocyte Esterase Negative (Negative) Diagnostic Findings Abdomen/Pelvis CT 12/16/24 08:[address] WITH ORAL CONTRAST CT DOSE: 369.84 mGy.cm HISTORY: mid abd pain, hx of pancreatitis duodenal stent TECHNIQUE: Multiaxial CT images of the abdomen and pelvis were performed following the use of oral contrast. A dose lowering technique was utilized adhering to the principles of ALARA. COMPARISON STUDY: 11/24/2024 FINDINGS: ABDOMEN: Gallbladder is surgically absent. Liver, spleen, and adrenal glands have an unremarkable non-IV contrast appearance. Stable small cyst at the right kidney. No hydronephrosis or calculi bilaterally. There are scattered atherosclerotic calcifications. No abdominal aortic aneurysm. There is a stable stent extending from the pancreas into the duodenum. Stable calcifications consistent with chronic pancreatitis. There is interval mild inflammation of the pancreas consistent with superimposed acute pancreatitis. No pancreatic pseudocyst or abscess seen. Pelvis: Prostate is mildly enlarged. Urinary bladder is mildly distended. There is mild retained stool. No bowel inflammation or obstruction. No free fluid, free air, or abscess. No enlarged adenopathy. Osseous structures: There are mild degenerative changes at the lumbar spine and hips. IMPRESSION: Mild acute pancreatitis. No other acute findings seen. Otherwise as described. ACT 112: Negative or not required by law. The above report was generated using voice recognition software. It may contain grammatical, syntax or spelling errors. Electronically signed by: Taras Mcpherson M.D. 12/16/2024 11:42 AM Medications Administered Sodium Chloride (Nss) 1,000 mls @ 125 mls/hr IV .Q8H ALYCIA Stop: 12/17/24 08:59 Last Admin: 12/16/24 09:12 Dose: 125 mls/hr Documented By: CARLOS ALBERTO Discontinued Medications Diphenhydramine HCl (Diphenhydramine 50 Mg/Ml Vial) 12.5 mg IV NOW STA Stop: 12/16/24 08:58 Last Admin: 12/16/24 09:12 Dose: 12.5 mg Documented By: CARLOS ALBERTO Hydromorphone HCl (Hydromorphone Inj 0.5 Mg/0.5 Ml Syr) 0.5 mg IV NOW STA Stop: 12/16/24 08:58 Last Admin: 12/16/24 09:11 Dose: 0.5 mg Documented By: CARLOS ALBERTO Prochlorperazine (Compazine) 2 mls @ 1 mls/min IV ONE ONE Stop: 12/16/24 08:58 Last Admin: 12/16/24 09:12 Dose: 1 mls/min Documented By: CARLOS ALBERTO Famotidine (Pepcid 20mg Iv Push) 20 mg in 5 mls @ 2.5 mls/min IV NOW STA Stop: 12/16/24 09:00 Last Admin: 12/16/24 09:11 Dose: 2.5 mls/min Documented By: CARLOS ALBERTO Morphine Sulfate (Morphine Sulfate 4 Mg/Ml 1 Ml Carp\Vial) 4 mg IV NOW STA Stop: 12/16/24 11:46 Last Admin: 12/16/24 11:50 Dose: 4 mg Documented By: CARLOS ALBERTO Supervising Physician Co-Signing Physician Notes Attending Addendum: Case reviewed with the advanced practitioner. I have personally performed a history and physical examination on the patient. I have reviewed the advanced practitioner's documentation on the date of service referenced in note, and I agree with, and take responsibility for the plan of care. please refer to her notes for full details patient seen and examined, records reviewed by myself as well on exam, patient seen resting in bed, comfortable abdominal pain easing up with PRN pain meds no nausea, fever/chills no other symptoms VS noted and reviewed orientedx3 , not in distress, speaks in sentences with no effort nor accessory muscle use normal rate, regular rhythm, no murmurs clear breath sounds bilaterally non distended, soft, Moderate tenderness on the epigastric area no bipedal edema, erythema, warmth no neuro deficits all labs, imaging noted and reviewed ASSESSMENT AND PLAN> Recurrent pancreatitis in the setting of pancreatic strictures, pancreatic stent in place Was just discharged last week from [facility] for similar presentation Lipase normal CT abdomen showing mild acute pancreatitis Bowel rest, IV LR GI consult Scheduled for pancreatic stent removal end of December at [facility], will need to contact GI team at [facility] to facilitate earlier removal of stent in light of recurrent pancreatitis other diagnoses and plan of care as per advanced practitioner's notes I spent a total of 35 minutes coordinating, documenting, and providing care for this patient, excluding time spent in the performance of separately billed services or time spent by another provider/QHP. Marco Álvarez MD (2) CAD (coronary artery disease) Associated angina: without angina Coronary Disease-Associated Artery/Lesion type: [place] artery [place] vs. transplanted heart: [place] heart Qualified Code(s): I25.10 - Atherosclerotic heart disease of [place] coronary artery without angina pectoris (3) GERD (gastroesophageal reflux disease) Esophagitis presence: esophagitis presence not specified Qualified Code(s): K21.9 - Gastro-esophageal reflux disease without esophagitis (4) HTN (hypertension) Hypertension type: unspecified Qualified Code(s): I10 - Essential (primary) hypertension
[2024-12-16] MEDS ORDERED: ACETAMINOPHEN 325 MG TAB PO PRN (12:40)
[2024-12-16] MEDS ORDERED: ONDANSETRON INJ 2 MG/ML 2 ML VIAL IV PRN (12:43)
[2024-12-16] MEDS ORDERED: PROCHLORPERAZINE 5 MG in SYRINGE 4 ML IV PRN (12:43)
[2024-12-16] MEDS: HYDROmorphone INJ 0.5 MG/0.5 ML SYR IV PRN (14:41)
--- NOTE | 2024-12-16 16:39 | Electrocardiogram Report ---
Test Reason : Blood Pressure : */* mmHG Vent. Rate : 77 BPM Atrial Rate : 77 BPM P-R Int : 80 ms QRS Dur : 84 ms QT Int : 348 ms P-R-T Axes : 22 -6 89 degrees QTcB Int : 394 ms Poor data quality, interpretation may be adversely affected Sinus rhythm Inferior-posterior infarct (cited on or before 20-May-2023) Abnormal ECG When compared with ECG of 24-Nov-2024 04:37, Nonspecific T wave abnormality no longer evident in Inferior leads Confirmed by Jaren Crow ([id number]) on 12/16/2024 4:39:46 PM Referred By: REFERRED SELF Confirmed By: Jaren Crow
[2024-12-16] MEDS: oxyCODONE HCL IR 5 MG TAB (IMMEDIATE RELEASE) PO PRN (16:42)
[2024-12-16] MEDS: LACTATED RINGER'S 1,000 ML IV SCH (16:57)
[2024-12-16] MEDS: amLODIPine BESYLATE 5 MG TAB PO SCH (17:46)
[2024-12-16] MEDS: PANTOprazole 40 MG TAB PO SCH (17:47)
[2024-12-16] MEDS: METOPROLOL SUCC 25MG EXT REL TAB PO SCH (20:01)
[2024-12-16] MEDS: FAMOTIDINE 40 MG TABLET PO SCH (20:02)
[2024-12-16] MEDS: TICAGRELOR 90 MG TAB PO SCH (20:02)
[2024-12-17 07:18] LABS: Basophils # (auto) 0.05 K/uL (0.00-0.20); Basophils % (auto) 0.7 %; Eosinophils % (auto) 2.7 %; Hematocrit (blood only) 38.4 % (42.0-52.0); Hemoglobin 13.5 g/dl (14.0-18.0); Immature Granulocytes # (auto) 0.02 K/uL (0.01-0.20); Immature Granulocytes % (auto) 0.3 %; Lymphocytes # (auto) 1.53 K/uL (1.20-3.40); Lymphocytes % (auto) 20.6 %; Mean Corpuscular Hemoglobin 33.4 pg (25.0-34.0); Mean Corpuscular Hgb Conc 35.2 g/dL (32.0-36.0); Mean Platelet Volume 9.1 fL (9.4-12.4); Monocytes # (auto) 0.42 K/uL (0.11-0.59); Monocytes % (auto) 5.7 %; Platelet Count 273 K/uL (130-400); RDW Coefficient of Variation 12.9 % (11.5-14.5); RDW Standard Deviation 45.1 fL (36.4-46.3); Red Blood Count 4.04 M/uL (4.70-6.10); White Blood Count 7.42 K/ul (4.8-10.8)
[2024-12-17 07:28] LABS: Albumin Level 3.9 gm/dl (3.4-5.0); BUN Creatinine Ratio 10.8 (10-20); Bilirubin Direct 0.1 mg/dl (0-0.2); Bilirubin,Total 0.6 mg/dl (0.2-1.0); Creatinine Clr Calc Pharmacy 95.5 ml/min; Magnesium 1.5 mg/dl (1.7-2.4); Phosphorus 2.7 mg/dl (2.5-4.9); Potassium 3.6 mmol/L (3.5-5.1); Total Protein 6.3 gm/dl (6.0-8.3)
[2024-12-17] MEDS: MAGNESIUM SULFATE / D5W 1 GM/100 ML BAG IV SCH (08:04)
[2024-12-17] MEDS: EZETIMIBE 10 MG TAB PO SCH (08:07)
[2024-12-17] MEDS: LOSARTAN POTASSIUM 25 MG TAB PO SCH (08:07)
[2024-12-17] MEDS: ROSUVASTATIN CALCIUM 20 MG TAB PO SCH (08:08)
[2024-12-17] MEDS: ASPIRIN 81 MG ECTAB PO SCH (08:08)
[2024-12-17] MEDS: SERTRALINE HCL 100 MG TABLET PO SCH (08:08)
--- NOTE | 2024-12-17 08:43 | Gastrointestinal Consultation ---
Date of Consultation December 17, 2024 Assessment & Plan (1) Chronic pancreatitis: Clinical picture consistent with flare of chronic pancreatitis. Mild pancreatic inflammation on CT scan no significant sequelae such as pseudocyst or fluid collections. He is feeling better since admission. Recommend advancing him to a clear liquid diet. Continue medical management. No indication for any endoscopic intervention at this time. He plans to follow-up with [facility] for stent removal soon. History of Present Illness Reason for Consultation: Chronic pancreatitis Attending Physician: Liat Hawk MD History of Present Illness Patient with chronic pancreatitis felt to be due to alcohol use. Has had acute flares over the last several years. In September he had a pancreatic stent placed. He continues to have intermittent abdominal pain. He was recently admitted here earlier in the month with an acute flare managed conservatively and discharged after 2 to 3 days. Over the last 24 to 48 hours had increasing abdominal pain associated with nausea presented to the ER for further management. He denies any fever chills vomiting change in bowel habits melena hematemesis or bright red blood per rectum. He is due to get his stent removed within the next month or 2. He denies any active alcohol use but does continue to smoke tobacco. Allergies Allergy/AdvReac Type Severity Reaction Status Date / Time isosorbide [From Imdur] AdvReac Severe severe Verified 12/16/24 09:21 migraine Home Medications Medication Instructions Recorded Confirmed Type amlodipine 5 mg tablet 5 mg PO QAM 12/09/24 12/16/24 History aspirin 81 mg tablet,delayed 81 mg PO QAM 12/09/24 12/16/24 History release ezetimibe 10 mg tablet 10 mg PO QAM 12/09/24 12/16/24 History famotidine 40 mg tablet 40 mg PO HS 12/09/24 12/16/24 History losartan 25 mg tablet 12.5 mg PO QAM 12/09/24 12/16/24 History metoprolol succinate 25 mg 25 mg PO BID 12/09/24 12/16/24 History tablet,extended release 24 hr nitroglycerin 0.4 mg sublingual 0.4 mg sublingual UD 12/09/24 12/16/24 History tablet pantoprazole 40 mg tablet,delayed 40 mg PO QAM 12/09/24 12/16/24 History release rosuvastatin 40 mg tablet 40 mg PO QAM 12/09/24 12/16/24 History sertraline 100 mg tablet 100 mg PO QAM 12/09/24 12/16/24 History ticagrelor 90 mg tablet (Brilinta) 90 mg PO BID 12/09/24 12/16/24 History Patient History Medical History (Updated 12/17/24 @ 08:41 by Luis Greer MD) Intestinal ischemia SVT (supraventricular tachycardia) Ischemic cardiomyopathy Non-sustained ventricular tachycardia Recurrent pancreatitis Non-ST elevation (NSTEMI) myocardial infarction Grade II diastolic dysfunction ST elevation myocardial infarction (STEMI) COVID-29 Oct 2021 Mobitz type 2 second degree atrioventricular block Tobacco abuse Splenic infarct Surgical History (Updated 12/16/24 @ 13:27 by Shu Caldwell PA-C) History of insertion of pancreatic stent Hx laparoscopic cholecystectomy (08/22/21) Laparoscopic Cholecystectomy Dr. Davidson 08/22/2021 History of endoscopic retrograde cholangiopancreatography x2 (08/31, 09/30) History of vasectomy Family History Mother Gallbladder disease Sister Gallbladder disease Other Diabetes Stroke Denies family history of Pancreatic disease Social History Smoking Status: Current every day smoker Tobacco Type: Cigarettes Cigarettes Per Day: 1/2 pack; Second Hand Exposure: No; Do You Dip or Chew Tobacco: No; Hx Alcohol Use: No Hx Substance Use: No Preferred Language: Bulgarian Communication Ability: Effective Visual Impairment: No Limitations Hearing Ability: Normal Appliquer Required: No Beliefs That Will Affect Care: None marital status: Single Current Living Situation: Alone current occupational status: employed 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 [employer] Other Information That Helps Us Care for You: No Feels Safe at Home: Yes Safety Concerns: Feels Safe At This Time Assistive Devices: Glasses Review of Systems Review of Systems: No fever No chills No SOB No CP Generalized abdominal pain Physical Exam Physical Exam: Eyes; anicteric HENT No masses Chest clear to A Cor S1, S2 physiologic Abd: softer minimal epigastric tenderness no rebound no guarding Ext no edema Results & Data Vital Signs (Past 12 Hours) Vital Signs Temp Pulse Pulse Pulse Resp BP Pulse Ox 12/17/24 08:11 36.6 C 73 20 142/74 H 96 12/17/24 07:46 60 12/17/24 04:22 36.6 C 63 18 132/84 97 12/16/24 23:31 36.7 C 76 20 155/84 H 97 12/16/24 22:16 64 12/16/24 22:04 12/16/24 20:01 56 L 12/16/24 19:52 36.6 C 75 20 158/79 H 97 O2 Del Method 12/17/24 08:11 Room Air 12/17/24 07:46 12/17/24 04:22 Room Air 12/16/24 23:31 Room Air 12/16/24 22:16 12/16/24 22:04 Room Air 12/16/24 20:01 12/16/24 19:52 Room Air Laboratory Results Laboratory Results - last 48 hr 12/16/24 12/16/24 12/16/24 08:42 09:56 10:58 WBC 7.10 RBC 4.39 L Hgb 14.7 Hct 42.0 MCV 95.7 MCH 33.5 MCHC 35.0 RDW Std Deviation 46.0 RDW Coeff of [place]ck[place] 13.0 Plt Count 318 MPV 9.5 Immature Gran % (Auto) 0.3 Neut % (Auto) 63.6 Lymph % (Auto) 26.9 [place] % (Auto) 5.4 Eos % (Auto) 2.7 Baso % (Auto) 1.1 Neut # (Auto) 4.52 Lymph # (Auto) 1.91 [place] # (Auto) 0.38 Eos # (Auto) 0.19 Baso # (Auto) 0.08 Immature Gran # (Auto) 0.02 Sodium Cancelled 137 Potassium Cancelled 3.5 Chloride Cancelled 105 Carbon Dioxide Cancelled 23 Anion Gap Cancelled 9 BUN Cancelled 16 Creatinine Cancelled 0.86 Est Cr Clr Drug Dosing Cancelled 72.3 eGFR Cancelled 102.26 BUN/Creatinine Ratio Cancelled 18.6 Glucose Cancelled 132 H Calcium Cancelled 8.9 Phosphorus Magnesium Total Bilirubin Cancelled 0.5 Direct Bilirubin AST Cancelled 14 ALT Cancelled 31 Alkaline Phosphatase Cancelled 101 Troponin I High Sens Cancelled 9.1 Total Protein Cancelled 6.6 Albumin Cancelled 3.9 Globulin Cancelled 2.7 Albumin/Globulin Ratio Cancelled 1.4 Amylase Cancelled 69 Lipase Cancelled 48 Urine Color Yellow Urine Appearance Clear Urine pH 6.5 Ur Specific [place] 1.013 Urine Protein Negative Urine Glucose (UA) Negative Urine Ketones Negative Urine Blood Negative Urine Nitrite Negative Urine Bilirubin Negative Urine Urobilinogen Negative Ur Leukocyte Esterase Negative 12/17/24 06:23 WBC 7.42 RBC 4.04 L Hgb 13.5 L Hct 38.4 L MCV 95.0 MCH 33.4 MCHC 35.2 RDW Std Deviation 45.1 RDW Coeff of [place] 12.9 Plt Count 273 MPV 9.1 L Immature Gran % (Auto) 0.3 Neut % (Auto) 70.0 Lymph % (Auto) 20.6 [place] % (Auto) 5.7 Eos % (Auto) 2.7 Baso % (Auto) 0.7 Neut # (Auto) 5.20 Lymph # (Auto) 1.53 [place] # (Auto) 0.42 Eos # (Auto) 0.20 Baso # (Auto) 0.05 Immature Gran # (Auto) 0.02 Sodium 138 Potassium 3.6 Chloride 107 Carbon Dioxide 24 Anion Gap 7 BUN 7 Creatinine 0.65 Est Cr Clr Drug Dosing 95.5 eGFR 111.28 BUN/Creatinine Ratio 10.8 Glucose 96 Calcium 9.0 Phosphorus 2.7 Magnesium 1.5 L Total Bilirubin 0.6 Direct Bilirubin 0.1 AST 14 ALT 25 Alkaline Phosphatase 97 Troponin I High Sens Total Protein 6.3 Albumin 3.9 Globulin Albumin/Globulin Ratio Amylase Lipase 31 Urine Color Urine Appearance Urine pH Ur Specific [place] Urine Protein Urine Glucose (UA) Urine Ketones Urine Blood Urine Nitrite Urine Bilirubin Urine Urobilinogen Ur Leukocyte Esterase Diagnostic Findings Abdomen/Pelvis CT 12/16/24 08:[address] WITH ORAL CONTRAST CT DOSE: 369.84 mGy.cm HISTORY: mid abd pain, hx of pancreatitis duodenal stent TECHNIQUE: Multiaxial CT images of the abdomen and pelvis were performed following the use of oral contrast. A dose lowering technique was utilized adhering to the principles of ALARA. COMPARISON STUDY: 11/24/2024 FINDINGS: ABDOMEN: Gallbladder is surgically absent. Liver, spleen, and adrenal glands have an unremarkable non-IV contrast appearance. Stable small cyst at the right kidney. No hydronephrosis or calculi bilaterally. There are scattered atherosclerotic calcifications. No abdominal aortic aneurysm. There is a stable stent extending from the pancreas into the duodenum. Stable calcifications consistent with chronic pancreatitis. There is interval mild inflammation of the pancreas consistent with superimposed acute pancreatitis. No pancreatic pseudocyst or abscess seen. Pelvis: Prostate is mildly enlarged. Urinary bladder is mildly distended. There is mild retained stool. No bowel inflammation or obstruction. No free fluid, free air, or abscess. No enlarged adenopathy. Osseous structures: There are mild degenerative changes at the lumbar spine and hips. IMPRESSION: Mild acute pancreatitis. No other acute findings seen. Otherwise as described. ACT 112: Negative or not required by law. The above report was generated using voice recognition software. It may contain grammatical, syntax or spelling errors. Electronically signed by: Taras Mcpherson M.D. 12/16/2024 11:42 AM PG Care Time/CCT Total # of Minutes Spent Total Time Spent with Patient: Total time spent is greater than 50% in coordination of care (as documented) at patient's floor/unit and/or counseling patient: Coding Level of Care Code 46506 INT INP/OBS CARE 2/55MIN Diagnoses Chronic pancreatitis K86.1
[2024-12-17] MEDS: ENOXAPARIN INJ 40 MG/0.4 ML SYR SQ SCH (09:09)
--- NOTE | 2024-12-17 09:50 | Hospitalist Progress Note ---
Date of Service December 17, 2024 Assessment & Plan (1) Acute on chronic pancreatitis: (2) CAD (coronary artery disease): (3) GERD (gastroesophageal reflux disease): (4) HTN (hypertension): (5) Dyslipidemia, goal LDL below 70: (6) RADHA (generalized anxiety disorder): Plan This is a 54 y/o male with PMHx significant for CAD w/ multiple prior IA, PCI with stents, chronic systolic HF, NSVT, hx bradycardia, chronic pancreatitis s/p ERCP with pancreatic stent placement 10/03, GERD, dyslipidemia, anxiety, [place] esophagus, and other history as outlined below who presented to the ED today via EMS for worsening abdominal pain in the setting of an acute on chronic pancreatitis flare. Acute on Chronic Pancreatitis Pt with Hx of pancreatitis, recently admitted for the same CT abd pelvis on admission noting mild acute pancreatitis changes Lipase wnl GI consulted, appreciate recs Advance diet as tolerated Pain control, fluids, antiemetics prn Continue to monitor Hypomagnesemia Replete as needed CAD s/p multiple stents denies anginal symptoms troponin normal EKG without significant ischemic changes Continue Brilinta, aspirin, Toprol, ARB, statin GERD Continue PPI therapy, pepcid Hypertension Continue Toprol, ARB, amlodipine Dyslipidemia continue statin, zetia RADHA continue sertraline Diet: advancing as tolerated DVT prophylaxis: heparin SQ Dispo: Home once medically stable Admission and Anticipated Discharge Date Admission Date: December 16, 2024 Subjective pt was seen sitting in bed noted that he had no N/V and no abdominal pain while at rest However very tender on palpation Review of Systems Review of Systems: All systems reviewed & are unremarkable except as noted in Subjective Physical Exam Physical Exam: General: Alert, oriented. No acute distress HEENT: NC/AT CV: RRR Resp: Breath sounds clear bilaterally, no increased effort of breathing Abdomen: Soft, tender diffusely Extremities: No edema in lower extremities bilaterally. Results & Data Results & Data Vital Signs (Past 12 Hours) Vital Signs Temp Pulse Pulse Resp BP Pulse Ox O2 Del Method 12/17/24 08:11 36.6 C 73 20 142/74 H 96 Room Air 12/17/24 07:46 60 12/17/24 04:22 36.6 C 63 18 132/84 97 Room Air 12/16/24 23:31 36.7 C 76 20 155/84 H 97 Room Air 12/16/24 22:16 64 12/16/24 22:04 Room Air (2) CAD (coronary artery disease) Associated angina: without angina Coronary Disease-Associated Artery/Lesion type: [place] artery [place] vs. transplanted heart: [place] heart Qualified Code(s): I25.10 - Atherosclerotic heart disease of [place] coronary artery without angina pectoris (3) GERD (gastroesophageal reflux disease) Esophagitis presence: esophagitis presence not specified Qualified Code(s): K21.9 - Gastro-esophageal reflux disease without esophagitis (4) HTN (hypertension) Hypertension type: unspecified Qualified Code(s): I10 - Essential (primary) hypertension
[2024-12-17] MEDS: HEPARIN SOD 5,000 UNIT/0.5 ML VIAL SQ SCH (20:56)
[2024-12-18 06:23] LABS: Basophils # (auto) 0.05 K/uL (0.00-0.20); Basophils % (auto) 0.8 %; Eosinophils # (auto) 0.13 K/uL (0.00-0.50); Hematocrit (blood only) 36.3 % (42.0-52.0); Immature Granulocytes # (auto) 0.02 K/uL (0.01-0.20); Immature Granulocytes % (auto) 0.3 %; Lymphocytes # (auto) 1.62 K/uL (1.20-3.40); Lymphocytes % (auto) 24.6 %; Mean Corpuscular Hemoglobin 34.1 pg (25.0-34.0); Mean Corpuscular Hgb Conc 35.8 g/dL (32.0-36.0); Mean Corpuscular Volume 95.3 fL (80.0-100.0); Monocytes # (auto) 0.37 K/uL (0.11-0.59); Monocytes % (auto) 5.6 %; Neutrophils % (auto) 66.7 %; Platelet Count 298 K/uL (130-400); RDW Coefficient of Variation 12.8 % (11.5-14.5); RDW Standard Deviation 44.8 fL (36.4-46.3); Red Blood Count 3.81 M/uL (4.70-6.10); White Blood Count 6.59 K/ul (4.8-10.8)
[2024-12-18 06:39] LABS: Albumin Globulin Ratio 1.5 (0.9-2); Albumin Level 3.8 gm/dl (3.4-5.0); Bilirubin,Total 0.6 mg/dl (0.2-1.0); Creatinine Clr Calc Pharmacy 79.6 ml/min; Globulin 2.5 gm/dl (2.5-4.0); Magnesium 1.9 mg/dl (1.7-2.4); Phosphorus 3.2 mg/dl (2.5-4.9); Potassium 3.7 mmol/L (3.5-5.1); Total Protein 6.3 gm/dl (6.0-8.3)
[2024-12-18 08:05] VITALS: RESP 18
[2024-12-18 11:24] VITALS: BP 102/63; PULSE 89; TEMP 97.9; O2SAT 99
--- NOTE | 2024-12-18 11:47 | Discharge Summary ---
Discharge Summary Date of Service December 18, 2024 Principal Dx & Hospital Course #1 = Principal Diagnosis (1) Acute on chronic pancreatitis: (2) CAD (coronary artery disease): (3) GERD (gastroesophageal reflux disease): (4) HTN (hypertension): (5) Dyslipidemia, goal LDL below 70: (6) RADHA (generalized anxiety disorder): Plan This is a 54 y/o male with PMHx significant for CAD w/ multiple prior [place], PCI with stents, chronic systolic HF, NSVT, hx bradycardia, chronic pancreatitis s/p ERCP with pancreatic stent placement 10/03, GERD, dyslipidemia, anxiety, [place] esophagus, and other history as outlined below who presented to the ED today via EMS for worsening abdominal pain in the setting of an acute on chronic pancreatitis flare. Acute on Chronic Pancreatitis Presented with abdominal pain Pt with Hx of pancreatitis, recently admitted for the same CT abd pelvis on admission noting mild acute pancreatitis changes Lipase wnl Pain control, fluids, antiemetics prn GI consulted, appreciate recs. Noted/stated the following: "...Clinical picture consistent with flare of chronic pancreatitis. Mild pancreatic inflammation on CT scan no significant sequelae such as pseudocyst or fluid collections. He is feeling better since admission. Recommend advancing him to a clear liquid diet. Continue medical management. No indication for any endoscopic intervention at this time. He plans to follow-up with [facility] for stent removal soon..." Was advancing diet as tolerated and pt was on a liquid diet on the day of discharge when he stated that he "was not staying any longer". 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 Close PCP and GI followup after discharge Hypomagnesemia Replete as needed CAD s/p multiple stents denies anginal symptoms troponin normal EKG without significant ischemic changes Continue Brilinta, aspirin, Toprol, ARB, statin GERD Continue PPI therapy, pepcid Hypertension Continue Toprol, ARB, amlodipine Dyslipidemia continue statin, zetia RADHA continue sertraline Notes For Next Care Provider Left AMA Medication Changes From Visit None Admission HPI Per Admitting Provider This is a 54 y/o male with PMH of CAD w/ multiple prior AR, PCI with stents, chronic systolic HF, NSVT, hx bradycardia, chronic pancreatitis s/p ERCP with pancreatic stent placement 10/03, GERD, dyslipidemia, anxiety, [place] esophagus, and other history as outlined below who presented to the ED today via EMS for worsening abdominal pain. Pt was most recently admitted to this facility from 12/09-12/11/24 with acute on chronic pancreatitis. He was managed with bowel rest, IVF, and IV pain medications with improvement. He was tolerating a clear liquid diet and was able to be discharged home. He reports that since being home, he was initially able to manage his pain with Tylenol every 4-6 hours. Appetite decreased but was able to eat small amounts. However, last evening, the pain again worsened so he went to the [facility] ED where he reports only being briefly evaluated, given a Percocet but told not to take it until he got home, which he did. He does not feel like the Percocet did much for the pain itself but he was able to get some sleep. This morning, when he woke up, the pain was more severe so he called EMS and was brought to the ED. He describes the pain as sharp, epigastric, radiates to his back. Associated nausea but no vomiting, fevers, chills. Bowel movements are baseline diarrhea. Denies melena or hematochezia. He denies chest pain, SOB, BARRON, peripheral edema, CERDA, syncope, dizziness, dysuria, hematuria, or dark urine. He has a pancreatic stent placed on 06/28/24 for treatment of chronic pancreatitis, which was to be moved in 4 months. However, this procedure was delayed and pt is now scheduled for ERCP with stent exchange on 01/04/25 at [facility] by Dr. Gross. ERCP 06/28/24: - The major papilla was located entirely within a diverticulum. - Prior biliary sphincterotomy appeared open. - Prior pancreatic sphincterotomy appeared open. - Biliary sludge extracted with a balloon. . - Moderate chronic pancreatitis. - One pancreatic stent was placed into the ventral pancreatic duct for treatment of chronic pancreatitis. (Repeat ERCP in 4 months to remove stent. If stricture still present, plan for stricture dilation at that time). - Indomethacin given to decrease risk of post-ERCP pancreatitis. EUS 09/20/24: - Evidence of a cholecystectomy. - There was no sign of significant pathology in the common bile duct. - There was abnormal echogenicity in the visualized portion of the liver. This was hyperechoic. Tissue has not been obtained. However, the endosonographic appearance is suggestive of fatty infiltration. - Endosonographic imaging of the pancreas showed sonographic changes consistent with moderate chronic pancreatitis. - A 13 mm poorly defined mass was identified in the pancreatic head. Fine needle aspiration performed. The appearance is suggestive if chronic pancreatitis. (Cytology showed no malignancy; findings c/w chronic pancreatitis) - One benign lymph node was visualized in the annie hepatis region. - Endosonographic images of the left adrenal gland were unremarkable. Admission Exam Per Admitting Provider General: awake, alert, NAD HEENT: no scleral icterus, moist oral mucosa Neck: supple, trachea midline Heart: RRR Lungs: CTA bilaterally, no W/R/R Abdomen: soft, mild epigastric tenderness without guarding or rebound, non- distended, +BS Extremities: no pedal edema, distal pulses intact and equal Skin: warm, dry, no jaundice Neurologic: OX3, no confusion or dysarthria, moving all extremities, no focal deficits Discharge Exam General: Alert, oriented. No acute distress HEENT: NC/AT CV: RRR Resp: Breath sounds clear bilaterally, no increased effort of breathing Abdomen: Soft, tender diffusely Extremities: No edema in lower extremities bilaterally. Updated Medication List Medication Instructions Recorded Confirmed Type amlodipine 5 mg tablet 5 mg PO [facility] 12/09/24 12/16/24 History aspirin 81 mg tablet,delayed 81 mg PO [facility] 12/09/24 12/16/24 History release ezetimibe 10 mg tablet 10 mg PO [facility] 12/09/24 12/16/24 History famotidine 40 mg tablet 40 mg PO HS 12/09/24 12/16/24 History losartan 25 mg tablet 12.5 mg PO [facility] 12/09/24 12/16/24 History metoprolol succinate 25 mg 25 mg PO BID 12/09/24 12/16/24 History tablet,extended release 24 hr nitroglycerin 0.4 mg sublingual 0.4 mg sublingual UD 12/09/24 12/16/24 History tablet pantoprazole 40 mg tablet,delayed 40 mg PO [facility] 12/09/24 12/16/24 History release rosuvastatin 40 mg tablet 40 mg PO [facility] 12/09/24 12/16/24 History sertraline 100 mg tablet 100 mg PO [facility] 12/09/24 12/16/24 History ticagrelor 90 mg tablet (Brilinta) 90 mg PO BID 12/09/24 12/16/24 History Hospital Stay Data Consultations 12/16/24 16:26 Consult Gastroenterology Routine Diagnostic Imagining Performed 12/16/24 08:59 CT Abd and Pelvis [CT abd pelvis oral con only] Stat Abdomen/Pelvis CT 12/16/24 08:[address] WITH ORAL CONTRAST CT DOSE: 369.84 mGy.cm HISTORY: mid abd pain, hx of pancreatitis duodenal stent TECHNIQUE: Multiaxial CT images of the abdomen and pelvis were performed following the use of oral contrast. A dose lowering technique was utilized adhering to the principles of ALARA. COMPARISON STUDY: 11/24/2024 FINDINGS: ABDOMEN: Gallbladder is surgically absent. Liver, spleen, and adrenal glands have an unremarkable non-IV contrast appearance. Stable small cyst at the right kidney. No hydronephrosis or calculi bilaterally. There are scattered atherosclerotic calcifications. No abdominal aortic aneurysm. There is a stable stent extending from the pancreas into the duodenum. Stable calcifications consistent with chronic pancreatitis. There is interval mild inflammation of the pancreas consistent with superimposed acute pancreatitis. No pancreatic pseudocyst or abscess seen. Pelvis: Prostate is mildly enlarged. Urinary bladder is mildly distended. There is mild retained stool. No bowel inflammation or obstruction. No free fluid, free air, or abscess. No enlarged adenopathy. Osseous structures: There are mild degenerative changes at the lumbar spine and hips. IMPRESSION: Mild acute pancreatitis. No other acute findings seen. Otherwise as described. ACT 112: Negative or not required by law. The above report was generated using voice recognition software. It may contain grammatical, syntax or spelling errors. Electronically signed by: Taras Mcpherson M.D. 12/16/2024 11:42 AM Total Time Total Time Spent Total Time Spent (In Minutes): 60
== END 2024-12-18 12:54 | disposition left against medical advice (07) | DRG 439 ==
LOC: ED 08:33 → SUATTDRO 12:45 → EDINP 12:45 → 2N 16:21